=== PATIENT | female | born 1955 | race Caucasian/White ===

== ENCOUNTER 2018-01-29 08:31 | Emergency (ER) | payer OTHER, SELFPAY ==
[2018-01-29 08:32] VITALS: BP 183/83; PULSE 85; RESP 14; TEMP 36.4; O2SAT 98; BMI 45.1
--- NOTE | 2018-01-29 08:43 | CT_ITS ---
STUDY: CT CERVICAL SPINE WITHOUT CONTRAST REASON FOR EXAM: Female, 62 years old. Posterior neck pain. RADIATION DOSAGE (If Supplied By Facility): CTDIvol = ( 32.86 ) mGy, DLP = ( 744.76 ) mGycm TECHNIQUE: High resolution transaxial imaging was performed without contrast material. Sagittal and coronal images were reconstructed. Individualized dose optimization techniques were used for this CT. COMPARISON: None FINDINGS: Normal craniovertebral junction. Normal anterior atlantoaxial articulation. Normal odontoid process. There is straightening of the normal cervical lordosis. Normal vertebral bodies and posterior osseous elements. C2-3: Minimal anterior listhesis of C2 on C3. Facet joint osteoarthritis and hypertrophy. C3-4: Minimal anterior listhesis of C3 on C4. Facet joint osteoarthritis and hypertrophy. Uncovertebral arthrosis. C4-5: Marked degree of disc space narrowing with fusion. Anterior spondylosis. Uncovertebral arthrosis. Bilateral neural foraminal stenosis severe on the right side and moderate on the left side. C5-6: Marked degree of disc space narrowing. Spondylosis. Uncovertebral arthrosis. Moderate degree of bilateral neural foraminal stenosis. C6-7: Marked degree of disc space narrowing. Spondylosis. Facet joint osteoarthritis. C7-T1: Normal endplates. Normal disc height and morphology. Normal central canal and intervertebral neuroforamina. Calcification of the carotid bifurcations. CT/Spine Cervical without Contras IMPRESSION: Multilevel degenerative changes, as described above. Electronically Signed: Francisco Zavaleta MD at 10:08 EST Tel [phone], Service support ,
--- NOTE | 2018-01-29 08:53 | ED.DCSUM_ITS ---
- ER Visit Summary Date of Service: 01/29/18 Chief Complaint: Neck pain/bilateral upper arm weakness History of Present Illness: The patient is a 62 F who presents with the above symptoms. She states for the past 3 weeks she has had pain in her neck and had some weakness and numbness of her hands and arms. She saw a rehabilitation physician in [place]. He prescribed her prednisone and ordered outpatient x- rays. She states the x-rays read some arthritis at C3 and C4. She finished the prednisone yesterday and she states that the sensation is better in her arms but she still feels weak. She has fallen a couple of times without injury at home. She feels that everything is weak. Not feel malaise or fatigue. He is scheduled to follow-up with his rehabilitation session tomorrow for further evaluation. Physical Examination: Vital signs are reviewed. HEENT exam is unremarkable. Heart is regular rate and rhythm. Lungs are clear bilaterally. Abdomen soft and nontender. Cervical spine reveals left paraspinal tenderness to palpation. There are no step-offs. No bony tenderness. Her neurologic exam is normal. Her strength the upper extremities is equal and normal. Her sensation is also equal. Sensation and reflexes as well as strength in the bilateral lower e xtremities are equal. Test Results: CT scan reveals multilevel degenerative disc disease. There is severe foramina narrowing at the C4-C5 and C6 area Emergency Department Course and Treatment: The patient will be given a shot of Kenalog here. Her issue is likely degenerative disc disease and foraminal narrowing. She has a follow-up appointment with the rehab physician tomorrow. She will keep this appointment. Treatment Plan: [] Disposition: Discharge Impression: Cervical radiculopathy, cervical degenerative disc disease This note was generated with [employer] dictation software. It may contain incorrect words, spelling, and punctuation that were not noted in review of the chart prior to signing ED Disposition - Plan for ED Patient: Chief Complaint: Other, Pain/Inj Referrals: [facility] Doctor,Out of [Primary Care Provider] -
--- NOTE | 2018-01-29 10:16 | ED.DEP ---
ED Disposition - Plan for ED Patient: Disposition: Home or Assisted Living Chief Complaint: Other, Pain/Inj Instructions: ED Cervical Radiculopathy Referrals: [facility] Doctor,Out of [Primary Care Provider] -
[2018-01-29] MEDS: Triamcinolone Acetonide 40 MG/ML Vial IM (10:26)
[2018-01-29 10:27] VITALS: BP 129/84; PULSE 78; RESP 15; O2SAT 98
--- OUTSIDE RECORDS SUMMARY | 2018-05-02 20:49 | XMS RPT_ITS ---
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 SIGNATURE: Ivana Ward RN PATIENT NAME: Sonia Karimi DATE: February 07, 2018 TIME: 1:52 PM PAGER/CONTACT #: [phone] THERAPY NT Observed: 02/07/2018 Status: COMPLETED Source: [place] 10:28 AM CLINIC OTHER CAMPUS REPOSITORY O ID: [id number] Author: Ainsley Shah Service: Physical Therapy Author Type: Internal Audit Manager Type: Therapy (PT/OT/Speech/Resp) Filed: 02/07/2018 10:36 AM Note Text: Attestation signed by Carlos (Pt) Octavia at 02/07/2018 11:35 AM I reviewed and agree with the documentation corresponding to this therapy visit. SIGNATURE: Carlos Dudley, PT DATE: February 07, 2018 TIME: 11:35 AM Physical Therapy Treatment SERVICE DATE: 02/07/2018 SERVICE TIME: 35 to 4186 ROOM: [place] [address] Recommended Discharge Disposition: Acute Rehab Recommended Discharge Disposition Comments: pt with limited functional mobility - BUE/BLE weakness making mobility difficult; will benefit from AR prior to d/c home. Justification For Post Acute Needs: Anticipate that patient will require daily (5x/wk) skilled therapy in a post-acute facility setting at the time of acute hospital discharge;Anticipate patient will tolerate 3 hours of daily therapy at the time of admission to post-acute setting Recommended Discharge Equipment: No equipment needs anticipated PT Recommendations to Nursing: Ambulate with device;Transfer to/from chair;OOB for Meals;With assist of 2 people Device: Wheeled Walker PT 6 Clicks Score: 17 Precautions/Activity Restrictions: Fall Risk;Spine Precaution/Activity Restriction Comments: soft collar when in a car ASSESSMENT :Patient Disposition at Start of Session: Supine in Bed;Call Daniel in Reach;SCDs Patient Disposition at End of Session: (sitting eob post session) Tolerance Limited By Pain Physical Therapy Problem List: Balance Impaired;Functional Mobility Impairment;Decreased Strength;Decreased Range Of Motion;Decreased Activity Tolerance;Impaired Self Care;Safety Deficits;Pain Patient /Caregiver Goals: Go Home Goals for Plan of Care: Able to perform HEP with: Verbal Cues Only Transfer supine to/from sit with: Modified Independent Transfer sit to/from stand with: Modified Independent Ambulate with: Modified Independent Distance: >100ft x 2 Device: Wheeled Walker Ambulate up and down steps with: Contact Guard Assistance Number of steps: 3 Device: Rail Transfer: All functional transfers with mod I Progress Toward Goals: Progressing as expected Rehab Potential: Good PLAN: Treatment Frequency (times per week): 7 Treatment Duration (number): (as able LOS) Current admission Treatment Interventions: Education;Functional Mobility Training;Self Care / Home Management Plan of Care developed with: Patient TREATMENT INTERVENTIONS: Therapy Diagnosis: Reduced mobility-other Interventions Provided: Therapeutic Activity (45671) Therapeutic Activity (85158) Treatment Minutes: 40 3 units Skilled Intervention(s): Education with sitting balance, transfers, therex Sitting eob beginning of session. Seated pt performed B ue and le therex along with postural therex. Pt practiced sit to stand with min assist x 2 from elevated bed. Using ww abl to performed left mip. Not able to performed right mip secondary to left knee hurting so much with weigthbearing. Pt practiced sit to stand x 2. Each static stand about 2 minute with min assist. Seated eob post session. Set up for Breakfast, Call daniel in reach Total Timed Code Treatment Minutes: 40 Total Treatment Time (minutes): 40 SUBJECTIVE: Current Hospital Course: Chart reviewed and no significant medical updates relevant to therapy were noted Reason for Physical Therapy Consult : Sx 02/02/18 Ant Disectomy decompression Relevant Past Medical History: cervical myopathy; frequent falls Patient Report: pt alert, cooperative, pleasant 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; drives OBJECTIVE: CURRENT FUNCTIONAL STATUS: Current Functional Mobility Assist Level Additional Information Rolling Contact Guard Assistance Supine to Sit Minimal Assistance Sit to Supine (pt remained in chair post session) Scooting Supervision Sit to Stand Minimal Assistance Stand to Sit Minimal Assistance Bed to Chair Toilet/Commode Gait Stairs Curb Step Car Transfer General Gait Deviations: Kamar decreased Balance: Static Sitting;Dynamic Sitting;Static Standing;Dynamic Standing Static Sitting Balance: Independent Dynamic Sitting Balance: Supervision Static Standing Balance: Contact Guard Assistance Dynamic Standing Balance: Minimal Assistance Activity Tolerance: Standing Activity Standing Activity: stood at walker for balance, wt shifting Standing Activity Tolerance (in minutes): 0.75 JH-HLM: 6: Walk 10 steps or more Please see discipline specific clinical documentation flowsheet for complete details for this therapy evaluation/treatment. SIGNATURE: Ainsley Shah PT Assist PATIENT NAME: Sonia Karimi DATE: February 07, 2018 TIME: 10:29 AM THERAPY NT Observed: 02/07/2018 Status: COMPLETED Source: [place] 10:28 AM CLINIC OTHER CAMPUS REPOSITORY HNO ID: [id number] Author: Trista Leo (Cota) Service: Occupational Therapy Author Type: Rn Case Management Type: Therapy (PT/OT/Speech/Resp) Filed: 02/07/2018 10:33 AM Note Text: Attestation signed by Wayne Rivas at 02/07/2018 2:51 PM I reviewed and agree with the documentation corresponding to this therapy visit. SIGNATURE: Wayne Rivas, OTR/L DATE: February 07, 2018 TIME: 2:51 PM Occupational Therapy Treatment SERVICE DATE: 02/07/2018 SERVICE TIME: 5576 to 3119 ROOM: [place] [address] Recommended Discharge Disposition: Acute Rehab Recommended Discharge Disposition Comments: to maximize level of independence with ADL's, functional transfers and functional ambulation Justification For Post Acute Needs: Anticipate patient will tolerate 3 hours of daily therapy at the time of admission to post-acute setting;Anticipated community discharge;Good sitting tolerance;Living the community premorbidly;Motivated OT Recommendations to Nursing: ADL?s in chair;OOB for meals;Transfer to Chair;With assist of 2 people Equipment: Wheeled Walker OT 6 Clicks Score: 16 Precautions/Activity Restrictions: Fall Risk;Spine Precaution/Activity Restriction Comments: soft collar when in a car ASSESSMENT: Patient presents with cervical lami. Requires skilled OT for self care and functional mobility'. Patient Disposition at Start of Session: (sitting EOB) Patient Disposition at End of Session: (sitting EOB) Tolerated Full Session Occupational Therapy Problem List: Education Deficit;Pain;Safety Deficits;Impaired Self Care;Decreased Activity Tolerance;Decreased Range Of Motion;Decreased Strength;Functional Mobility Impairment;Balance Impaired;Sensory Deficit Patient /Caregiver Goals: Go To Rehab Goals for Plan of Care: Upper Body Dressing with: Set Up Lower Body Dressing with: Supervision Chair Transfer with: Supervision Toilet Transfer with: Supervision Tolerate (minutes of functional activity): 45 Functional Activity with: Supervision Progress Toward Goals: Progressing as expected Rehab Potential: Good PLAN: Treatment Frequency (times per week): 5 (as able) Current admission Treatment Interventions: Education;Self Care / Home Management;Functional Mobility Training;Balance Training Plan of Care developed with: Patient TREATMENT INTERVENTIONS: Therapy Diagnosis: Reduced mobility-other;Decreased activities of daily living (ADL) Interventions Provided: Therapeutic Activity (84048);Self Snf Management (76474) Therapeutic Activity (05421) Treatment Minutes: 15 1 unit Skilled Intervention(s): Instruction in sit to stand technique with proper hand placement and body positioning at edge of bed/chair Instruction in stand to sit technique with lower extremities touching chair/bed and reaching back for surface Instruction in sit to and from stand technique with proper hand placement and body positioning at edge of bed/chair Pt stood 3x from EOB with bed elevated, poor sit to stand technique, attempted pushing from bed pt required pulling from stabilized walker Self Snf Management (24232) Treatment Minutes: 25 2 units Skilled Intervention(s): Instructed in post-op instructions during ADLs recalls cervical lami precautons, required frequent cues for adherance during treatment Instructed in energy conservation v/c for activity pacing Provided cuing for hand/oral hygiene set up in sittng pt unable to complete self care tasks in standing at this time Cues for sequencing in hygiene tasks mod for toilet hygiene Provided instruction, cuing and facilitation for upper body dressing min Provided instruction, cuing and facilitation for lower body dressing min with compensatory technique for donning socks, mod stand to arrange poor functional mobility at this time Total Timed Code Treatment Minutes: 40 Total Treatment Time (minutes): 40 SUBJECTIVE: Current Hospital Course: Chart reviewed and no significant medical updates relevant to therapy were noted Reason for Occupational Therapy Consult: functional assessment Relevant Past Medical History: cervical myopathy; frequent falls Patient Report: see above 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; drives OBJECTIVE: Cognition/Communication Deficits Orientation Deficits: (WFL) Responsiveness: Alert;Awake Follows Commands: 3-step Commands;Cueing Needed Executive Function Deficits: Safety Awareness Safety Awareness Deficit: Minimal impairment CURRENT FUNCTIONAL STATUS: Current Activities of Daily Living Assist Level Feeding Set Up Grooming Contact Guard Assistance Bathing Upper Body Minimal Assistance Bathing Lower Body Moderate Assistance Dressing Upper Body Minimal Assistance Dressing Lower Body Moderate Assistance Toileting Moderate Assistance Instrumental Activities of Daily Living Assist Level Meal/Beverage Prep Light Cleaning Laundry Medication Management with Strategies Functional Mobility Assist Level Rolling (Pt up in chair and declined to return to bed at this time) Supine to Sit Supervision Sit to Supine Scooting Contact Guard Assistance Sit to Stand Minimal Assistance Stand to Sit Minimal Assistance Bed to Chair Toilet/Commode Minimal Assistance Functional Mobility Minimal Assistance Wheeled Walker Balance: Static Sitting;Dynamic Sitting;Static Standing;Dynamic Standing Static Sitting Balance: Independent Dynamic Sitting Balance: Supervision Static Standing Balance: Contact Guard Assistance Dynamic Standing Balance: Minimal Assistance Activity Tolerance: Standing Activity Standing Activity: amb to BR Standing Activity Tolerance (in minutes): 4 Please see discipline specific clinical documentation flowsheet for complete details for this therapy evaluation/treatment. SIGNATURE: SOCORRO Contreras PATIENT NAME: Sonia Karimi DATE: February 07, 2018 TIME: 10:28 AM CNDS Observed: 02/07/2018 Status: COMPLETED Source: [place] 9:33 AM CLINIC OTHER CAMPUS REPOSITORY HNO ID: [id number] Author: Artem Dow Service: General Internal Medicine Author Type: Physician Type: Discharge Summaries Filed: 02/07/2018 9:34 AM Note Text: DISCHARGE SUMMARY PATIENT NAME: Sonia Karimi ADMISSION DATE: 01/30/2018 DISCHARGE DATE: 02/07/2018 Attending Physician: Attending provider: Artem Dow MD ([phone]) Reason for Hospitalization: Active Problems: Cervical myopathy Cervical spondylosis with myelopathy Resolved Problems: * No resolved hospital problems. * Operations During Hospitalization: To list. Procedures During Hospitalization: To list. Labs and Procedures Pending at Discharge: No pending results. Unless otherwise specified. Consulting Teams During Hospitalization: Neurosurgery PT Patient Condition @ Discharge: Stable Discharge Disposition: Residential Facility Discharge Physical Exam: VITAL SIGNS: BP 108/50 Pulse 100 Temp 36.9 ?C (98.5 ?F) (Oral) Resp 16 Ht 167.6 cm (5' 6) Wt 125.9 kg (277 lb 9 oz) SpO2 97% BMI 44.80 kg/m? GENERAL: Alert, no acute distress, cooperative, obese SKIN: Skin color, texture, turgor normal. No rashes or lesions. NECK: Anterior surgical dressing noted. LUNGS: Lungs clear to auscultation CARDIAC: Normal S1 and S2; no rubs, murmurs, or gallops ABDOMEN: Abdomen soft, non-tender, BS normal x4 EXTREMITIES: No LE edema NEURO: AANDOx3, reports increased upper extremity strength. PULSES: 2+ radial, 2+ carotid Hospital Course: Cervical myopathy [G72.9] - s/p ACDF C3-4 HTN - c/w amlodipine, maxzide HLD: statin Thyroid mass - noted on MRI - thyroid US: benign nodules Hypokalemia - replete, monitor constipation - c/w colace IRIS - CPAP Obesity DVT prophylaxis - SCDs Neurosurgery signed off. Acute rehabilitation Discharge Information Provided to Patient: Discharge Medications: Current Discharge Medication List START taking these medications acetaminophen (TYLENOL) 650 mg Take 650 mg by mouth every 4 hours as needed. docusate sodium (COLACE) 100 mg Take 100 mg by mouth twice daily. polyethylene glycol 3350 (MIRALAX, GLYCOLAX) 17 g Take 17 g by mouth once daily as needed. CONTINUE these medications which have NOT CHANGED amLODIPine (NORVASC) 5 mg Take 5 mg by mouth once daily. Qty: 90 tablet Refills: 3 Associated Diagnoses:Essential hypertension atorvastatin (LIPITOR) 10 mg Take 10 mg by mouth once daily. Qty: 90 tablet Refills: 3 Associated Diagnoses:Hyperlipidemia, unspecified hyperlipidemia type cholecalciferol (VITAMIN D3) 2,000 Units Take 2,000 Units by mouth once daily. cloNIDine HCl (CATAPRES) 0.1 mg Take 0.1 mg by mouth daily at bedtime. Qty: 90 tablet Refills: 3 Associated Diagnoses:Essential hypertension COMPOUNDED PRESCRIPTION BIPAP 1 liter bleed in 12/5 cm. RR 14 Replacement machine with heated humidity. CPAP mask and supplies. Use nightly. Qty: 1 Each Refills: 0 Associated Diagnoses:Sleep apnea, unspecified sleep apnea type gabapentin (NEURONTIN) 100 mg capsule TAKE 2 CAPSULES BY MOUTH TWICE A DAY Qty: 120 capsule Refills: 3 Comments: Maximum Refills Reached Associated Diagnoses:Sprain of deltoid ligament of left ankle, sequela; Saphenous neuritis, left [id number]-[id number] D3 ORAL 3 tablets Take 3 tablets by mouth once daily. HYDROcodone-acetaminophen (NORCO) 1 tablet Take 1 tablet by mouth at bedtime as needed. Earliest Fill Date: 01/16/18 Qty: 30 tablet Refills: 0 Associated Diagnoses:Cervical disc disorder with radiculopathy; Primary osteoarthritis of both knees; Sprain of left shoulder, unspecified shoulder sprain type, sequela MULTIVIT WITH IRON-MINERALS (MULTIVITAMIN AND MINERALS ORAL) 1 tablet Take 1 tablet by mouth once daily. predniSONE (DELTASONE) 10 mg tablet Please take 3 pills twice daily for 3 days, then 2 pills twice daily for 3 days, then 1 pill twice daily for 3 days, then 1 pill daily till gone. Qty: 40 tablet Refills: 0 Associated Diagnoses:Cervical disc disorder with radiculopathy; Cervical spondylosis with myelopathy; Primary osteoarthritis of both knees sertraline (ZOLOFT) 100 mg Take 100 mg by mouth once daily. Qty: 90 tablet Refills: 3 Associated Diagnoses:Depression, unspecified depression type STOP taking these medications diclofenac XR (VOLTAREN-XR) 100 mg Tb24 Comments: Reason for Stopping: triamterene-hydrochlorothiazide 1 capsule Comments: Reason for Stopping: Future Appointments: Follow Up with PCP: Gisela Gar DO Needs follow up for her Thyroid Nodules TIME OF CARE: Discharge Management: I personally spent less than 30 minutes involved in the discharge management of this patient. SIGNATURE: Artem Dow MD DATE: February 07, 2018 TIME: 9:33 AM NURSING PROG Observed: 02/06/2018 Status: COMPLETED Source: [place] 7:00 PM CLINIC OTHER CAMPUS REPOSITORY O ID: [id number] Author: Carli RubioRn) MELODY Jones Service: (none) Author Type: Registered Nurse Type: Nursing Progress Note Filed: 02/07/2018 5:27 AM Note Text: Nursing Progress Note Patient Name: Sonia Karimi Patient Location: [facility]-2 1922 Assumed care of patient--bedside report received. Family at bedside. Patient awake in bed eating dinner. Alert and oriented x 3. Respirations eupneic. Speech clear and appropriate. States pain is ok and declined need for pain medication at this time. Pain board reviewed and discussed. Appears comfortable. No s/s of distress. Safety interventions discussed, patient understands to use call light for assistance. Denies any other needs. Bed alarm on. Call light within reach. All safety precautions maintained. This note was completed by: Carli Jones RN PROGRESS Observed: 02/06/2018 Status: COMPLETED Source: [place] 2:09 PM [facility]INIC OTHER CAMPUS REPOSITORY HNO ID: [id number] Author: Artem Dow Service: General Internal Medicine Author Type: Physician Type: Progress Notes Filed: 02/06/2018 2:10 PM Note Text: PROGRESS NOTE - INTERNAL MEDICINE PATIENT NAME: Sonia Karimi ADMITTING PHYSICIAN: Artem Dow SUBJECTIVE INTERVAL HISTORY OF PRESENT ILLNESS: Comfortable. Upper extremity strength slightly improved. No other acute issues. OBJECTIVE PHYSICAL EXAM: BP 134/67 Pulse 75 Temp 36.9 ?C (98.4 ?F) (Oral) Resp 16 Ht 167.6 cm (5' 6) Wt 125.9 kg (277 lb 9 oz) SpO2 95% BMI 44.80 kg/m? Intake/Output Summary (Last 24 hours) at 02/06/18 1409 Last data filed at 02/06/18 1000 Gross per 24 hour Intake 820 ml Output 1725 ml Net -905 ml GENERAL: Alert, no acute distress, cooperative, obese SKIN: Skin color, texture, turgor normal. No rashes or lesions. NECK: Anterior surgical dressing noted. LUNGS: Lungs clear to auscultation CARDIAC: Normal S1 and S2; no rubs, murmurs, or gallops ABDOMEN: Abdomen soft, non-tender, BS normal x4 EXTREMITIES: No LE edema NEURO: AANDOx3, reports increased upper extremity strength. PULSES: 2+ radial, 2+ carotid DATA: Diagnostic tests reviewed for today's visit: Most recent labs Most recent imaging CBC, Coags, BMP, Mg, Phos Liver Function, Amylase, AND Lipase Cardiac Enzymes ASSESSMENT AND PLAN Cervical myopathy [G72.9] - s/p ACDF C3-4 HTN - c/w amlodipine, maxzide HLD: statin Thyroid mass - noted on MRI - thyroid US: benign nodules Hypokalemia - replete, monitor constipation - c/w colace IRIS - CPAP Obesity DVT prophylaxis - SCDs ? Neurosurgery signed off. Acute rehabilitation Discharge pending. Artem Dow MD NURSING PROG Observed: 02/06/2018 Status: COMPLETED Source: [place] 7:17 AM [facility] OTHER CAMPUS REPOSITORY HNO ID: [id number] Author: Karis RubioRn) MELODY Smith Service: (none) Author Type: Registered Nurse Type: Nursing Progress Note Filed: 02/06/2018 6:37 PM Note Text: Nursing Progress Note Patient Name: Sonia Karimi Patient Location: /-2 0715 Assumed care of patient, bedside report received. She is sleeping. CPAP noted at bedside, Bed alarm is on. Denies any needs, call light in reach and bed alarm is on. Neck dressing is dry and intact. No drainage noted. Reports numbness in hand and arms, not new., States numbness that was in her legs before the surgery is gone. Toes are warm and mobile with brisk cap refill. Call light in reach 0830 One person assist to BSC 1200 Resting in bed, denies any needs. Family at bedside. 1455 Resting in bed, denies any needs, family has gone home. Assessment is as charted . This note was completed by: Karis SMITH RN NURSING PROG Observed: 02/05/2018 Status: COMPLETED Source: [place] 7:38 PM [facility] OTHER CAMPUS REPOSITORY HNO ID: [id number] Author: Mellisa (Rn) MELODY Banks Service: (none) Author Type: Registered Nurse Type: Nursing Progress Note Filed: 02/06/2018 3:55 AM Note Text: Nursing Progress Note Patient Name: Sonia Karimi Patient Location: /[facility]2 Daily Note: 1900 Assumed care of pt. Pt is AANDOx3, breathing regular on RA. Pt denies any needs at this time. Call light within reach, bed alarm on, safety maintained. 2118 Assessment as charted. Pt denies chest pain, SOB, n/v, or [place]. Pt states n/t to bilateral hands and arms, and pain to the neck and L knee. IS at bedside. Pt demonstrated use, reminded to use every hour while awake. SCDs on bilaterally, neck dressing c/d/i with steri strips, ice applied to L knee d/t pain, bipap machine at bedside for pt use. No IV access upon assessment, informed by daytime RN that doctors are aware and no IV access is ok. Reviewed pain board with pt. Pt has no complaints at this time. Call light within reach, bed alarm on, safety maintained. 0000 Prior assessment unchanged, VS noted, will continue to monitor. This note was completed by: Mellisa Banks RN CASE MANAGEM Observed: 02/05/2018 Status: COMPLETED Source: [place] 3:19 PM [facility] REPOSITORY HNO ID: [id number] Author: Ivana RubioRn) MELODY Ward Service: Care Management Author Type: Registered Nurse Type: Care Mgt Progress Note Filed: 02/05/2018 3:21 PM Note Text: CARE MANAGEMENT PROGRESS NOTE SERVICE DATE: 02/05/2018 SERVICE TIME: 3:19 PM LOS: 6 days Discharge orders faxed to Sonia at [facility]. Left VM asking that she call this field underwriter back if she gets insurance approval. Await call and patient informed. Will follow. SIGNATURE: Ivana Ward RN PATIENT NAME: Sonia Karimi DATE: February 05, 2018 TIME: 3:19 PM PAGER/CONTACT #: [phone] PROGRESS Observed: 02/05/2018 Status: COMPLETED Source: [place] 2:35 PM [facility] OTHER CAMPUS REPOSITORY HNO ID: [id number] Author: Artem Dow Service: General Internal Medicine Author Type: Physician Type: Progress Notes Filed: 02/05/2018 2:35 PM Note Text: PROGRESS NOTE - INTERNAL MEDICINE PATIENT NAME: Sonia Karimi ADMITTING PHYSICIAN: Artem Dow SUBJECTIVE INTERVAL HISTORY OF PRESENT ILLNESS: Comfortable. Upper extremity strength slightly improved. No other acute issues. OBJECTIVE PHYSICAL EXAM: BP 147/55 Pulse 65 Temp 36.8 ?C (98.3 ?F) (Oral) Resp 16 Ht 167.6 cm (5' 6) Wt 125.9 kg (277 lb 9 oz) SpO2 96% BMI 44.80 kg/m? Intake/Output Summary (Last 24 hours) at 02/05/18 1435 Last data filed at 02/05/18 1400 Gross per 24 hour Intake 1290 ml Output 400 ml Net 890 ml GENERAL: Alert, no acute distress, cooperative, obese SKIN: Skin color, texture, turgor normal. No rashes or lesions. NECK: Anterior surgical dressing noted. LUNGS: Lungs clear to auscultation CARDIAC: Normal S1 and S2; no rubs, murmurs, or gallops ABDOMEN: Abdomen soft, non-tender, BS normal x4 EXTREMITIES: No LE edema NEURO: AANDOx3, reports increased upper extremity strength. PULSES: 2+ radial, 2+ carotid DATA: Diagnostic tests reviewed for today's visit: Most recent labs Most recent imaging CBC, Coags, BMP, Mg, Phos Recent Labs 02/03/18 0535 WBC 14.75* HB 11.5 HCT 37.1 PLT 241 NA 138 K 4.1 CHLOR 101 CO2 26 BUN 12 CREAT 0.69 GLUC 119* CA 9.1 Liver Function, Amylase, AND Lipase Cardiac Enzymes ASSESSMENT AND PLAN Cervical myopathy [G72.9] - s/p ACDF C3-4 HTN - c/w amlodipine, maxzide HLD: statin Thyroid mass - noted on MRI - thyroid US: benign nodules Hypokalemia - replete, monitor constipation - c/w colace IRIS - CPAP Obesity DVT prophylaxis - SCDs ? Neurosurgery Has signed off. Acute rehabilitation Discharge pending. Mild leukocytosis noted, to follow Artem Dow MD THERAPY NT Observed: 02/05/2018 Status: COMPLETED Source: [facility] 12:53 PM CLINIC OTHER CAMPUS REPOSITORY HNO ID: [id number] Author: Hayley RubioOtRonda Long Service: Occupational Therapy Author Type: Occupational Therapist Type: Therapy (PT/OT/Speech/Resp) Filed: 02/05/2018 12:56 PM Note Text: Occupational Therapy Evaluation SERVICE DATE: 02/05/2018 SERVICE TIME: 1220 to 1245 ROOM: [place] [id number] Recommended Discharge Disposition: Acute Rehab Recommended Discharge Disposition Comments: to maximize level of independence with ADL's, functional transfers and functional ambulation Justification For Post Acute Needs: Anticipate patient will tolerate 3 hours of daily therapy at the time of admission to post-acute setting;Anticipated community discharge;Good sitting tolerance;Living the community premorbidly;Motivated OT Recommendations to Nursing: ADL?s in chair;OOB for meals;Transfer to Chair;With assist of 2 people Equipment: Wheeled Walker OT 6 Clicks Score: 17 Precautions/Activity Restrictions: Fall Risk;Spine Precaution/Activity Restriction Comments: soft collar when in a car ASSESSMENT: REEVAL SECONDARY TO CERVICAL SURGERY Patient presents with cervical surgery. . Requires skilled OT for decreased BUE ROM, BUE strength, balance, activity tolerance, dressing, bathing, grooming, functional transfers,, functional balance and decreased safety awareness. Patient Disposition at Start of Session: OOB in Chair;Call Daniel in Reach Patient Disposition at End of Session: OOB in Chair;Call Daniel in Reach Tolerated Full Session Occupational Therapy Problem List: Education Deficit;Pain;Safety Deficits;Impaired Self Care;Decreased Activity Tolerance;Decreased Range Of Motion;Decreased Strength;Functional Mobility Impairment;Balance Impaired;Sensory Deficit Patient /Caregiver Goals: Go To Rehab Goals for Plan of Care: Upper Body Dressing with: Set Up Lower Body Dressing with: Supervision Chair Transfer with: Supervision Toilet Transfer with: Supervision Tolerate (minutes of functional activity): 45 Functional Activity with: Supervision Rehab Potential: Good PLAN: Treatment Frequency (times per week): 5 (as able) Current admission Treatment Interventions: Education;Self Care / Home Management;Functional Mobility Training;Balance Training Plan of Care developed with: Patient TREATMENT INTERVENTIONS: Therapy Diagnosis: Reduced mobility-other;Decreased activities of daily living (ADL) Interventions Provided: Re-evaluation;Self Snf Management (42901) Self Snf Management (80812) Treatment Minutes: 13 1 unit Skilled Intervention(s): Instructed in energy conservation techniques to utilize during ADL's, functional transfers and functional ambulation. Provided instruction, cuing and facilitation for upper body dressing. Educated pt to dress LUE first secondary to decreased ROM and strength. Provided instruction, cuing and facilitation for lower body dressing. Pt educated on adhering to proper body mechanics while completing LE ADL's and the availability of adaptive equipment to assist in completion of LE ADL's. Educated pt to dress LLE first. Educated pt on the pain scale, the importance of managing pain and non pharmacological interventions. Educated and demonstrated to pt anti-embolic exercises and the importance of completing these exercises on a regular basis. Educated pt on pursed lipped breathing technique throughout functional activity to assist with managing pain. Educated pt on role of therapy in the acute care environment, the importance of being OOB for all meals as tolerated with staff assist and the POC. Educated and demonstrated desensitization techniques for BUE's. Total Timed Code Treatment Minutes: 13 Total Treatment Time (minutes): 25 FUNCTIONAL G CODE: OT 6 Clicks Score: 17 (02/05/18 1220) Self Care Current Status (G8987): CK (02/05/18 1220) Self Care Goal Status (G8988): CJ (02/05/18 1220) Based on clinical assessment and the score on the 6 Clicks Functional Assessment Tool, the G code and corresponding severity modifiers are documented above. SUBJECTIVE: Current Hospital Course: Chart reviewed; DATE OF SURGERY/PROCEDURE: 02/02/2018 SURGERY/PROCEDURE: Anterior cervical diskectomy at C3-4 level, anterior cervical partial corpectomy at C3-4 level, anterior cervical interbody arthrodesis utilizing allogenous bone graft at C3-4, anterior cervical C3-4 instrumentation utilizing [place] spine instrumentation, application of Antonio-Wells tongs, utilization of intraoperative microscope, utilization of intraoperative somatosensory motor-evoked potential monitoring. Reviewed history - fall 3 weeks ago and hit face, then seen here 01/16. Xray with flexion extension views did show translation with flex/ext. CT scan 01/29 in ER showed no fracture, + stenosis 2) Concern for significant and relatively rapid neuro decline. Patient needs MRI and neurosurgery opinion within next 24-48 hours - lengthy discussion with patient and niece. Recommended [facility] or [facility]. 3) Spoke with Dr Kim Neurosurgery, recommend MRI cervical spine without. Discussed with Dr Dow for direct admission - trying to arrange - if unable patient will go to ER. 4) Followup PRN Reason for Occupational Therapy Consult: functional assessment Relevant Past Medical History: cervical myopathy; frequent falls Patient Report: agreeable to work with therapy this date. 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; drives OBJECTIVE: Cognition/Communication Deficits Orientation Deficits: (WFL) Responsiveness: Alert Follows Commands: 3-step Commands Executive Function Deficits: Safety Awareness Safety Awareness Deficit: Minimal impairment CURRENT FUNCTIONAL STATUS: Current Activities of Daily Living Assist Level Feeding Set Up Grooming Contact Guard Assistance Bathing Upper Body Minimal Assistance Bathing Lower Body Moderate Assistance Dressing Upper Body Contact Guard Assistance Dressing Lower Body Moderate Assistance (to stand and arrange) Toileting Contact Guard Assistance Functional Mobility Assist Level Rolling (Pt up in chair and declined to return to bed at this time) Supine to Sit Sit to Supine Scooting Supervision Sit to Stand Minimal Assistance Stand to Sit Minimal Assistance Bed to Chair Toilet/Commode Minimal Assistance Functional Mobility Minimal Assistance Wheeled Walker Balance: Static Sitting;Dynamic Sitting;Static Standing;Dynamic Standing Static Sitting Balance: Supervision Dynamic Sitting Balance: Supervision Static Standing Balance: Contact Guard Assistance Dynamic Standing Balance: Minimal Assistance Please see discipline specific clinical documentation flowsheet for complete details for this therapy evaluation/treatment. SIGNATURE: LILY Harper/Adam PATIENT NAME: Sonia Karimi DATE: February 05, 2018 TIME: 12:53 PM CONSULT Observed: 02/05/2018 Status: COMPLETED Source: [facility] 11:26 AM CLINIC OTHER CAMPUS REPOSITORY O ID: [id number] Author: Ramirez Valles Service: Physical Medicine AND Rehabilitation Author Type: Physician Type: Consults Filed: 02/05/2018 2:46 PM Note Text: PMR CONSULT- POST ACUTE ASSESSMENT SERVICE DATE: 02/05/2018 REQUIRED CERT DATA (POTENTIAL ACUTE INPATIENT REHABILITATION FACILITY- IRF PATIENTS ONLY) Deficits: nutrition, debility, pain limiting function, balance and righting reactions, adjustment to disability, minimal mobility level resulting in risk for venous thromboembolism, joint range restrictions and healing surgical sites Disability: mobility, locomotion and self care Rehabilitation Impairment Group: Spinal Cord Dysfunction: fall Hx Potential Barriers to Progress/ Discharge: n/a good plan to return home Estimated Length of Rehabilitation Stay: 14-18 days Expected Status at Discharge from Rehabilitation: ? Eating: Modified Independent ? Grooming: Modified Independent ? Bathing: Contact Guard ? Dressing: Minimal Assist ? Transfers: Contact Guard ? Ambulation: Modified Independent ? Distance: 50+ feet ? Assistive Device: Wheeled Walker ? 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 Differential diagnosis includes degenerative disc disease see added list below [facility] admitted on 01/30/2018. Hx fall history Developed myelopathic symptoms ocer 3-4 week hx numbness in all extremities UE>LEs, difficulty with fine motor tasks, Amb change, weakness UE Diag Cervical Myelopathy C3-4 grade 1 spondylolisthesis, C3-4 disk herniation, C3-4 spinal cord compression, progressive myelopathy. 02/02/18 S/P Anterior cervical diskectomy at C3-4 level, anterior cervical partial corpectomy at C3-4 level, anterior cervical interbody arthrodesis utilizing allogenous bone graft at C3-4, anterior cervical C3-4 instrumentation utilizing [place] spine instrumentation, application of Antonio-Wells tongs, utilization of intraoperative microscope, utilization of intraoperative somatosensory motor-evoked potential monitoring. ? 02/04/18 IM Cervical myopathy - s/p ACDF C3-4 HTN - c/w amlodipine, maxzide HLD: statin Thyroid mass - noted on MRI - thyroid US: benign nodules Hypokalemia - replete, monitor constipation - c/w colace IRIS - CPAP Obesity DVT prophylaxis - SCDs PMANDR REVIEW OF SYSTEMS: Prior to one month ago GENERAL- negative. SKIN- negative. VISION- negative. SWALLOWING- negative. HEARING- negative. CARDIAC- negative. PULMONARY- negative. GI- negative. - negative. MUSCULOSKELETAL- LBP NEUROLOGICAL- negative. CONSTITUTIONAL- obesity. ENDOCRINE- negative ALLERGIES Allergen Reactions - Ativan [Lorazepam] Hives - Neomycin Itching Hives, itching - Neosporin [Benzalko* Rash Current Facility-Administered Medications: acetaminophen 650 mg tab(s) (TYLENOL) 650 mg ORAL q 4 H PRN amLODIPine 2.5 mg tab(s) (NORVASC) 2.5 mg ORAL DAILY atorvastatin 10 mg tab(s) (LIPITOR) 10 mg ORAL DAILY cloNIDine HCl 0.1 mg tab(s) (CATAPRES) 0.1 mg ORAL AT BEDTIME diazePAM 5 mg tab(s) (VALIUM) 5 mg ORAL q 6 H PRN docusate sodium 100 mg cap(s) (COLACE) 100 mg ORAL BID ferrous sulfate 325 mg tab(s) 325 mg ORAL BID w MEALS gabapentin 200 mg cap(s) (NEURONTIN) 200 mg ORAL BID HYDROcodone 5 mg - acetaminophen 325 mg tablet (NORCO) 1 tablet ORAL HS PRN lidocaine - VERIFY PATCH OTHER q 8 H lidocaine 5 % 1 Patch (LIDODERM) 1 Patch TRANSDERMAL DAILY lidocaine patch - REMOVE OTHER AT BEDTIME morphine 2 mg injection 2 mg INTRAVENOUS q 2 H PRN NaCl 0.9% iv infusion 75 mL/hr INTRAVENOUS CONTINUOUS ondansetron 4 mg tab(s) (ZOFRAN) 4 mg ORAL q 6 H PRN Or ondansetron (PF) 4 mg injection (ZOFRAN) 4 mg INTRAVENOUS q 6 H PRN oxyCODONE-acetaminophen 5-325 mg 1-2 tablet (PERCOCET) 1-2 tablet ORAL q 6 H PRN polyethylene glycol 3350 17 g packet (MIRALAX, GLYCOLAX) 17 g ORAL DAILY PRN sertraline 100 mg tab(s) (ZOLOFT) 100 mg ORAL DAILY (8 PM) PAST MEDICAL HISTORY Diagnosis Date - Cervical polyp - COPD (chronic obstructive pulmonary disease) (HCC) - Hyperlipidemia - Hypertension - Minor depression PAST SURGICAL HISTORY Procedure Laterality Date - REMOVAL ADENOIDS,PRIMARY,<12 Y/O Adenoidectomy - REMOVAL OF TONSILS,<12 Y/O Tonsillectomy Social History Marital status: Single Spouse name: Years of education: Number of children: Social History Main Topics Smoking status: Former Smoker Packs/day: 0.00 Years: 0.00 Smokeless tobacco: Never Used Comment: Quit smokig 38 years ago Alcohol use: No Drug use: No FAMILY HISTORY Problem Relation Age of Onset - Cancer Father leukemia - Cancer Mother skin cancer - Cancer Paternal Grandfather stomach cancer - Cancer Paternal Grandmother colon to liver - Cancer Sister cancer in situ - breast - Diabetes Father - Diabetes Sister - Heart Mother tachycardia Objective PHYSICAL EXAM: BP 147/55 Pulse 65 Temp 36.8 ?C (98.3 ?F) (Oral) Resp 16 Ht 167.6 cm (5' 6) Wt 125.9 kg (277 lb 9 oz) SpO2 96% BMI 44.80 kg/m? General: Patient seen- an obese adult in no distress.- Patient awake, alert and plerasant, Alert and Oriented x 3, -cooperative. Patient follows simple commands. Follows commands - 2 step. Speech is fluent. Basic auditory comprehensive and verbal expression intact. Patient knows recent history. HEENT- Inspection of the head is normocephalic. Face symmetric. Pupils round equal. EOMI, no conjunctival injection visual armijo intact. Tongue resting midline. Mucous membranes were moist. THORAX- Heart Regular rate and rhythym Lungs decreased breath sounds bilateral bases ABDOMEN- soft non-tender EXTREMITY EXAMINATION- Distal edema assessment UE No edema LE No edema PULSES B/L LE DP /PT 1/4 DISTAL SENSATION- LE lidn8sor DISTAL JT POSITION SENSE LE present REFLEXES B/L Biceps 3+, Triceps 3+ B/L Brachioradialis 3+ B/L Finger Flex 3+, Triceps 3+ Hoffmans- Brisk B/L RLE Patella 3+, Achilles 3+ LLE Patella 2+, Achilles 2+ [place] +/- B/L Clonus R ankle MOTOR STRENGTH UPPER EXTREMITY GENERAL RUE 4/5 LUE 4/5 LOWER EXTREMITY GENERAL RLE 4/5 LLE 4/5 ACTIVE SLR Movement against gravity R Yes. L Yes] Ataxia / coordination impairment UE/LE Mild LABORATORY TESTING: CBC: Recent Labs 02/03/18 0535 02/02/18 0421 02/01/1861601/30/181942 WBC 14.75* 10.52 10.21 14.93* HB 11.5 11.3* 11.6 12.2 HCT 37.1 35.7* 36.7 37.1 PLT 241 235 223 259 MCV 84.7 83.4 83.6 82.1 RDWCV 13.6 13.8 13.7 13.9 NEUTP 85.0 64.7 73.1 78.4 ABSNEUT 12.53* 6.81 7.46 11.70* LYMPHP 6.6 25.0 17.1 13.0 MONOP 8.2 7.2 6.6 6.4 EODINP 0.1 2.7 2.9 1.9 COAG: Recent Labs 02/02/18 0421 01/31/18 1907 APTT -- 25.4 INR 0.9 -- BMP: Recent Labs 02/03/1835 02/02/181 02/01/1861601/30/181942 GLUC 119* 101* 113* 164* NA 138 139 138 141 K 4.1 3.9 4.2 3.5* CHLOR 101 102 99 101 CO2 26 25 27 25 ANION 11 12 12 15 BUN 12 18 20 26* CREAT 0.69 0.75 0.81 0.92 CHEM: Recent Labs 02/03/18 0535 02/02/18 0421 02/01/1861601/30/181942 CA 9.1 9.6 9.9 9.6 HEPATIC: No results for input(s): ALKPHOS, ALT, AST, TBILI, LIPASE in the last 168 hours. URINALYSIS: Recent Labs 01/31/182050 SPGR 1.010 UGLUC Negative UBILI Negative UKET Negative UHB Negative UPROT Negative [facility] 11-20* LEUKEST Large* UA: Lab Results Component Value Date SPGR 1.010 01/31/2018 UGLUC Negative 01/31/2018 UBILI Negative 01/31/2018 UKET Negative 01/31/2018 UHB Negative 01/31/2018 UPROT Negative 01/31/2018 [facility] 11-20 01/31/2018 CREATININE CLEARANCE Estimated Creatinine Clearance: 111.7 mL/min (based on SCr of 0.69 mg/dL). Overall functional mobility- fair CURRENT FUNCTIONAL STATUS PHYSICAL THERAPY 6- CLICKS SCORE: PT 6 Clicks Score: 17 OCCUPATIONAL THERAPY 6- CLICKS SCORE : OT 6 Clicks Score: 14 02/05/18 PT Rolling Contact Guard Assistance ? Supine to Sit Minimal Assistance ? Sit to Supine (pt remained in chair post session) ? Scooting Supervision ? Sit to Stand Minimal Assistance ? Stand to Sit Minimal Assistance ? Bed to Chair Minimal Assistance Bed To Chair Transfer Type: Stand Pivot Bed To Chair Transfer Equipment: Wheeled Walker Toilet/Commode Minimal Assistance ? Gait Minimal Assistance Gait Device: Wheeled Walker Gait Distance (feet): 20'x2 Stairs Curb Step Car Transfer ? ? General Gait Deviations: Kamar decreased Pt tolerated well remained in the chair post session, nursing is aware, call light in reach . Reviewed precautionsBalance: Static Sitting;Dynamic Sitting;Static Standing;Dynamic Standing Static Sitting Balance: Independent Dynamic Sitting Balance: Supervision Static Standing Balance: Contact Guard Assistance Dynamic Standing Balance: Minimal Assistance 02/05/18 OT Feeding Set Up Grooming Contact Guard Assistance Bathing Upper Body Minimal Assistance Bathing Lower Body Moderate Assistance Dressing Upper Body Contact Guard Assistance Dressing Lower Body Moderate Assistance (to stand and arrange) Toileting Contact Guard Assistance ? ? Functional Mobility Assist Level ? Rolling (Pt up in chair and declined to return to bed at this time) ? Supine to Sit ? ? Sit to Supine ? Scooting Supervision ? Sit to Stand Minimal Assistance ? Stand to Sit Minimal Assistance ? Bed to Chair Toilet/Commode Minimal Assistance ? Functional Mobility Minimal Assistance Wheeled Walker ? ? ? Balance: Static Sitting;Dynamic Sitting;Static Standing;Dynamic Standing Static Sitting Balance: Supervision Dynamic Sitting Balance: Supervision Static Standing Balance: Contact Guard Assistance Dynamic Standing Balance: Minimal Assistance Impression/Recommendations PRIMARY DIAGNOSIS: Progressive Cervical Myelopathy over 3-4 weeks requiring surgical tx 02/02/18 ACDF C3-4 -Hyperreflexia -Clonus -Ataxia -Coordination Impairment Morbid Obesity BMI 44.8 PROBLEM LIST Progressive Cervical Myelopathy 02/02/18 ACDF C3-4 -Hyperreflexia -Clonus -Ataxia -Coordination Impairment Obesity, Class Iii, Bmi 40-49.9 Sleep Apnea Essential Hypertension Hyperlipidemia Osteoarthritis of Both Knees RECOMMENDATIONS: Acute Rehab 1- When medically cleared I recommend an Acute Inpatient Rehabilitation Facility (IRF). This patient requires and necessitates an IRF level of treatment / care including management by a Medical / Rehabilitation physician 5+ days /week, Rehabilitation nursing, multiple skilled therapies, Speech - screen. The patient will be able to participate in and benefit from 3 hr of therapy per day with goals for improved functional and medical status and a DC to the community. This patient is appropriate and necessitates a comprehensive acute inpatient rehabilitation faciility (IRF). Prognosis for improvement is positive. The patient is appropriate for IRF based on medical and physical / functional status, needs, prognosis, ability to participate and benefit from the IRF program including discharge goals to the community and family caregiver training as needed. IRF program recommended includes Physiatry / Rehabilitation Physician, Case Management, Discharge Planning , Psychosocial, Psychology services , 24 hr Rehabilitation Nursing, Recreational Therapy Services, Medical Management and Supervision, Discharge environmental assessment as needed. This patient is appropriate for Physical and Occupational therapy 1.5 hours each per day based on a 15- hour week, 5 days per week. Physician management 5-7 days per week including Physiatry / Rehabilitation Physician and Speciality Physician care as needed. Physician monitoring,management and close supervision of medical issues noted in primary diagnosis and problem list in this report. Psychological services as needed.. Disposition goal from IRF would be return home with support of family. 2- Medical Plan: Cervical spondylosis with myelopathy BMI>44 Elevated AM Blood glucose 3- DVT prophylaxis per Primary team 4- PT/OT 5- Speech- swallowing screen as needed 6- OOB BID with supervision 7- B/B program 8- Nutrition program 9- Follow Blood Glucose post op and at rehab SIGNATURE: Ramirez Valles DO PATIENT NAME: Sonia Karimi DATE: February 05, 2018 TIME: 11:26 AM PAGER/CONTACT #: THERAPY NT Observed: 02/05/2018 Status: COMPLETED Source: [facility] 10:58 AM CLINIC OTHER CAMPUS REPOSITORY HNO ID: [id number] Author: Nita García Service: Physical Therapy Author Type: Internal Audit Manager Type: Therapy (PT/OT/Speech/Resp) Filed: 02/05/2018 11:04 AM Note Text: Attestation signed by Niyah Hairston at 02/05/2018 1:30 PM I reviewed and agree with the documentation corresponding to this therapy visit. SIGNATURE: Niyah Hairston, PT DATE: February 05, 2018 TIME: 1:30 PM Physical Therapy Treatment SERVICE DATE: 02/05/2018 SERVICE TIME: 0950 to 1030 ROOM: [facility] Recommended Discharge Disposition: Acute Rehab Recommended Discharge Disposition Comments: pt with limited functional mobility - BUE/BLE weakness making mobility difficult; will benefit from AR prior to d/c home. Justification For Post Acute Needs: Anticipate that patient will require daily (5x/wk) skilled therapy in a post-acute facility setting at the time of acute hospital discharge;Anticipate patient will tolerate 3 hours of daily therapy at the time of admission to post-acute setting Recommended Discharge Equipment: No equipment needs anticipated PT Recommendations to Nursing: Ambulate with device;Transfer to/from chair;OOB for Meals;With assist of 2 people Device: Wheeled Walker PT 6 Clicks Score: 17 Precautions/Activity Restrictions: Fall Risk;Spine (Cervical ) ASSESSMENT : Patient Disposition at End of Session: OOB in Chair;Call Daniel in Reach Tolerance Limited By Pain Physical Therapy Problem List: Balance Impaired;Functional Mobility Impairment;Decreased Strength;Decreased Range Of Motion;Decreased Activity Tolerance;Impaired Self Care;Safety Deficits;Pain Patient /Caregiver Goals: Go Home Goals for Plan of Care: Able to perform HEP with: Verbal Cues Only Transfer supine to/from sit with: Modified Independent Transfer sit to/from stand with: Modified Independent Ambulate with: Modified Independent Distance: >100ft x 2 Device: Wheeled Walker Ambulate up and down steps with: Contact Guard Assistance Number of steps: 3 Device: Rail Transfer: All functional transfers with mod I Progress Toward Goals: Progressing as expected Rehab Potential: Good PLAN: Treatment Frequency (times per week): 7 Treatment Duration (number): (as able LOS) Current admission Treatment Interventions: Education;Functional Mobility Training;Self Care / Home Management Plan of Care developed with: Patient TREATMENT INTERVENTIONS: Therapy Diagnosis: Reduced mobility-other Interventions Provided: Therapeutic Activity (15646);Gait Training (30033) Therapeutic Activity (28460) Treatment Minutes: 25 2 units Skilled Intervention(s): Instructed patient in log roll technique Instructed patient in supine to and from sit pushing with upper extremities to sit up Instruction in sit to and from stand technique with proper hand placement and body positioning at edge of bed/chair Gait Training (27644) Treatment Minutes: 15 1 unit Skilled Intervention(s): Instruction in sit to stand technique with proper hand placement and body positioning at edge of bed/chair and Instruction in stand to sit technique with LE's touching chair/bed and reaching back for surface patient is agreeable to therapy reviewed precautions Bed mob cues for log rolling Transfers sit to stand MIN x1 cue to push from the chair amb with RW very flexed posture and narrow DANAY Remained in chair post session assisted pt to the bathroom she was independent with her self care Total Timed Code Treatment Minutes: 40 Total Treatment Time (minutes): 40 SUBJECTIVE: Current Hospital Course: Chart reviewed and no significant medical updates relevant to therapy were noted Reason for Physical Therapy Consult : Sx 02/02/18 Ant Disectomy decompression Relevant Past Medical History: cervical myopathy; frequent falls Patient Report: Pt is agreeable to therapy. Pt is cleared for therapy per nursing . 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; drives OBJECTIVE: CURRENT FUNCTIONAL STATUS: Current Functional Mobility Assist Level Additional Information Rolling Contact Guard Assistance Supine to Sit Minimal Assistance Sit to Supine (pt remained in chair post session) Scooting Supervision Sit to Stand Minimal Assistance Stand to Sit Minimal Assistance Bed to Chair Minimal Assistance Bed To Chair Transfer Type: Stand Pivot Bed To Chair Transfer Equipment: Wheeled Walker Toilet/Commode Minimal Assistance Gait Minimal Assistance Gait Device: Wheeled Walker Gait Distance (feet): 20'x2 Stairs Curb Step Car Transfer General Gait Deviations: Kamar decreased Pt tolerated well remained in the chair post session, nursing is aware, call light in reach . Reviewed precautions Balance: Static Sitting;Dynamic Sitting;Static Standing;Dynamic Standing Static Sitting Balance: Independent Dynamic Sitting Balance: Supervision Static Standing Balance: Contact Guard Assistance Dynamic Standing Balance: Minimal Assistance Activity Tolerance: Standing Activity Standing Activity: stood at walker for balance, wt shifting Standing Activity Tolerance (in minutes): 0.75 JH-HLM: 6: Walk 10 steps or more Please see discipline specific clinical documentation flowsheet for complete details for this therapy evaluation/treatment. SIGNATURE: Nita García, PT Assist PATIENT NAME: Sonia Karimi DATE: February 05, 2018 TIME: 10:58 AM CASE MANAGEM Observed: 02/05/2018 Status: COMPLETED Source: [place] 10:53 AM [facility] OTHER CAMPUS REPOSITORY HNO ID: [id number] Author: Ivana Ward RN Service: Care Management Author Type: Registered Nurse Type: Care Mgt Progress Note Filed: 02/05/2018 10:55 AM Note Text: CARE MANAGEMENT PROGRESS NOTE SERVICE DATE: 02/05/2018 SERVICE TIME: 10:53 AM LOS: 6 days Needs Prior to Discharge: Insurance Authorization Spoke with Sonia at [facility] and they can accept patient today pending insurance approval. Updates faxed to [facility] and await response. Spoke with patient and she is agreeable with the plan. Patient states he family can transport her at discharge. Will follow. SIGNATURE: Ivana Ward RN PATIENT NAME: Sonia Karimi DATE: February 05, 2018 TIME: 10:53 AM PAGER/CONTACT #: [phone] NURSING PROG Observed: 02/05/2018 Status: COMPLETED Source: [place] 10:09 AM [facility] REPOSITORY HNO ID: [id number] Author: Trista Grant) Issac, RN Service: (none) Author Type: Registered Nurse Type: Nursing Progress Note Filed: 02/05/2018 6:00 PM Note Text: 0852 Nursing Progress Note Patient Name: Sonia Karimi Patient Location: [facility] Daily Note: 0852 Patient awake in bed, alert and oriented x 3. Anterior neck dressing dry and intact. Pt states she has some numbness and tingling to BUEs which has improved since surgery. Pt states the numbness and tingling to BLEs Has decreased greatly since surgery. No signs of distress. Will monitor. Call light in reach. 1516 Patient up in chair. No signs of distress. Anterior neck dressing changed per patient request. Tape from dressing itching patient's neck. Steri strips intact, applied 2x2's and paper tape. No drainage noted. Will continue to monitor. 1750 Patient up in chair. Medicated with percocet for pain to left knee. Ice pack to left knee. Exercise ball given to patient to work on her hand coordination and movement. This note was completed by: Trista Davenport, MELODY NURSING PROG Observed: 02/04/2018 Status: COMPLETED Source: [place] 8:53 PM [facility] REPOSITORY HNO ID: [id number] Author: Sherri Huntley, RN Service: (none) Author Type: Registered Nurse Type: Nursing Progress Note Filed: 02/05/2018 1:19 AM Note Text: Nursing Progress Note Patient Name: Sonia Karimi Patient Location: [facility] Daily Note: 1900 Assumed care of pt. Pt awake in bed with no complaints this time. AANDOX3. Breathing regular. SCDs on bilaterally. Call light within reach. Bed alarm is on. Safety maintained. 1999 Assessment is charted. Pt denies sob, chest pain, nausea/vomiting, headache. Anterior neck dressing clean, dry, and intact. N/T in BUE. C/o of pain, see MAR. Is/cdb encouraged. SCDs on bilaterally. Call light within reach. Bed alarm on. Safety maintained. 0000 Piror assessment unchanged This note was completed by: Sherri Huntley RN PROGRESS Observed: 02/04/2018 Status: COMPLETED Source: [place] 4:54 PM CLIN[facility] OTHER CAMPUS REPOSITORY HNO ID: [id number] Author: Artem Dow Service: General Internal Medicine Author Type: Physician Type: Progress Notes Filed: 02/04/2018 4:59 PM Note Text: PROGRESS NOTE - INTERNAL MEDICINE PATIENT NAME: Sonia Karimi ADMITTING PHYSICIAN: Artem Dow SUBJECTIVE INTERVAL HISTORY OF PRESENT ILLNESS: Sleeping comfortably today. Yesterday, had some Increase in neck pain overnight. OBJECTIVE PHYSICAL EXAM: BP 153/64 Pulse 99 Temp 37.3 ?C (99.2 ?F) (Oral) Resp 16 Ht 167.6 cm (5' 6) Wt 125.9 kg (277 lb 9 oz) SpO2 96% BMI 44.80 kg/m? Intake/Output Summary (Last 24 hours) at 02/04/18 1655 Last data filed at 02/04/18 1600 Gross per 24 hour Intake 1240 ml Output 1050 ml Net 190 ml GENERAL: Alert, no acute distress, cooperative, obese SKIN: Skin color, texture, turgor normal. No rashes or lesions. NECK: Anterior surgical dressing noted. LUNGS: Lungs clear to auscultation CARDIAC: Normal S1 and S2; no rubs, murmurs, or gallops ABDOMEN: Abdomen soft, non-tender, BS normal x4 EXTREMITIES: No LE edema NEURO: AANDOx3, reports increased upper extremity strength already. PULSES: 2+ radial, 2+ carotid DATA: Diagnostic tests reviewed for today's visit: Most recent labs Most recent imaging CBC, Coags, BMP, Mg, Phos Recent Labs 02/03/18 0535 02/02/18 0421 WBC 14.75* 10.52 HB 11.5 11.3* HCT 37.1 35.7* PLT 241 235 INR -- 0.9 NA 138 139 K 4.1 3.9 CHLOR 101 102 CO2 26 25 BUN 12 18 CREAT 0.69 0.75 GLUC 119* 101* CA 9.1 9.6 Liver Function, Amylase, AND Lipase Cardiac Enzymes ASSESSMENT AND PLAN Cervical myopathy [G72.9] - s/p ACDF C3-4 HTN - c/w amlodipine, maxzide HLD: statin Thyroid mass - noted on MRI - thyroid US: benign nodules Hypokalemia - replete, monitor constipation - c/w colace IRIS - CPAP Obesity DVT prophylaxis - SCDs ? Neurosurgery Has signed off. Acute rehabilitation Discharge pending. Mild leukocytosis noted, to follow Artem Dow MD THERAPY NT Observed: 02/04/2018 Status: COMPLETED Source: [place] 2:03 PM CLIN[facility] OTHER CAMPUS REPOSITORY HNO ID: [id number] Author: Alayna (Pt) Zenia Service: Physical Therapy Author Type: Physical Therapist Type: Therapy (PT/OT/Speech/Resp) Filed: 02/04/2018 2:08 PM Note Text: Physical Therapy Treatment SERVICE DATE: 02/04/2018 SERVICE TIME: 1320 to 1350 ROOM: [place] [address] Recommended Discharge Disposition: Acute Rehab Recommended Discharge Disposition Comments: pt with limited functional mobility - BUE/BLE weakness making mobility difficult; will benefit from AR prior to d/c home. Justification For Post Acute Needs: Anticipate that patient will require daily (5x/wk) skilled therapy in a post-acute facility setting at the time of acute hospital discharge;Anticipate patient will tolerate 3 hours of daily therapy at the time of admission to post-acute setting Recommended Discharge Equipment: No equipment needs anticipated PT Recommendations to Nursing: Ambulate with device;Transfer to/from chair;OOB for Meals;With assist of 2 people Device: Wheeled Walker PT 6 Clicks Score: 17 Precautions/Activity Restrictions: Fall Risk;Spine (Cervical ) ASSESSMENT : Pt with functional decline and weakness; will benefit from continued PT in inpt setting at d/c for strengthening, gait training and functional mobility training to maximize functional independence. Patient Disposition at Start of Session: Supine in Bed Patient Disposition at End of Session: OOB in Chair;Call Daniel in Reach Tolerance Limited By Pain Physical Therapy Problem List: Balance Impaired;Functional Mobility Impairment;Decreased Strength;Decreased Range Of Motion;Decreased Activity Tolerance;Impaired Self Care;Safety Deficits;Pain Patient /Caregiver Goals: Go Home Goals for Plan of Care: Able to perform HEP with: Verbal Cues Only Transfer supine to/from sit with: Modified Independent Transfer sit to/from stand with: Modified Independent Ambulate with: Modified Independent Distance: >100ft x 2 Device: Wheeled Walker Ambulate up and down steps with: Contact Guard Assistance Number of steps: 3 Device: Rail Transfer: All functional transfers with mod I Progress Toward Goals: Progressing as expected Rehab Potential: Good PLAN: Treatment Frequency (times per week): 7 Treatment Duration (number): (as able LOS) Current admission Treatment Interventions: Education;Functional Mobility Training;Self Care / Home Management Plan of Care developed with: Patient TREATMENT INTERVENTIONS: Therapy Diagnosis: Reduced mobility-other Interventions Provided: Therapeutic Activity (75503);Gait Training (93976) Therapeutic Activity (01248) Treatment Minutes: 15 1 unit Skilled Intervention(s): Pt instructed in role of PT and importance of mobility in hospital; pt instructed in safe techniques for bed mob - log roll technique, transfer and gait training for improved functional mobility - proper use of walker and hand placement with all mobility; d/c planning discussion - pt wants to go to rehab; POC discussion; home safety, BLE/BUE therapeutic ex instruction, fall prevention strategies, energy conservation; deep breathing techniques. Pt instructed in spinal precs. Gait Training (11270) Treatment Minutes: 15 1 unit Skilled Intervention(s): Instruction in sit to stand technique with proper hand placement and body positioning at edge of bed/chair; Instruction in stand to sit technique with LE's touching chair/bed and reaching back for surface; Instruction in sequencing and gait pattern; Instruction in correction of gait deviations - postural correction, step length; Instruction in use of rolling walker for balance and safety. Pt needs cues for safety. Difficulty holding onto walker d/t hand weakness - tends to lean on walker. Pt is fearful of falling. Pt has severe B genu varus. Total Timed Code Treatment Minutes: 30 Total Treatment Time (minutes): 30 FUNCTIONAL G CODE: PT 6 Clicks Score: 17 (02/04/18 1320) Mobility: Walking and Moving Around Current Status (G8978): CK (02/03/18 1550) Mobility: Walking and Moving Around Goal Status (G8979): CJ (02/03/18 1550) Based on clinical assessment and the score on the 6 Clicks Functional Assessment Tool, the G code and corresponding severity modifiers are documented above. SUBJECTIVE: Current Hospital Course: Chart reviewed and no significant medical updates relevant to therapy were noted Reason for Physical Therapy Consult : Sx 02/02/18 Ant Disectomy decompression Relevant Past Medical History: cervical myopathy; frequent falls Patient Report: Pt states I'm in so much pain. I can't get comfortable. Pt laying in bed - head/neck positioned in extension. Assisted pt to chair with pillow and cervical roll support. 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; drives OBJECTIVE: CURRENT FUNCTIONAL STATUS: Current Functional Mobility Assist Level Additional Information Rolling Contact Guard Assistance Supine to Sit Minimal Assistance (HOB elevated) Sit to Supine (pt up in chair post session ) Scooting Supervision Sit to Stand Minimal Assistance Stand to Sit Minimal Assistance Bed to Chair Minimal Assistance Bed To Chair Transfer Type: Stand Pivot Bed To Chair Transfer Equipment: Wheeled Walker Toilet/Commode (-) Gait Minimal Assistance Gait Device: Wheeled Walker Gait Distance (feet): 12ft x 1; 20ft x 1 Stairs Curb Step Car Transfer General Gait Deviations: Kamar decreased;Step length decreased (leans BUE on walker; difficulty gripping walker; genu varus ) Balance: Static Sitting;Dynamic Sitting;Static Standing;Dynamic Standing Static Sitting Balance: Independent Dynamic Sitting Balance: Supervision Static Standing Balance: Contact Guard Assistance Dynamic Standing Balance: Minimal Assistance Activity Tolerance: Standing Activity Standing Activity: stood at walker for balance, wt shifting Standing Activity Tolerance (in minutes): 0.75 JH-HLM: 6: Walk 10 steps or more Please see discipline specific clinical documentation flowsheet for complete details for this therapy evaluation/treatment. SIGNATURE: Alayna Knutson PT PATIENT NAME: Sonia Karimi DATE: February 04, 2018 TIME: 2:03 PM NURSING PROG Observed: 02/04/2018 Status: COMPLETED Source: [place] 8:43 AM [facility] REPOSITORY HNO ID: [id number] Author: Nicole (Rn) MELODY Joel Service: Nursing Author Type: Registered Nurse Type: Nursing Progress Note Filed: 02/04/2018 1:14 PM Note Text: Nursing Progress Note Patient Name: Sonia Karimi Patient Location: [place] [address] [address] Daily Note: Assessment completed as charted, see documentation. Pt AOx3. Pt c/o neck pain, valium given, see eMAR. Pt denies any n/t. Neuros WNL. Pt denies any further needs at this time. Call daniel within reach. Will continue to monitor. This note was completed by: Nicole Joel RN PROGRESS Observed: 02/04/2018 Status: COMPLETED Source: [place] 8:39 AM [facility] REPOSITORY HNO ID: [id number] Author: Farshad Arce (Pa) Service: Neurosurgery Author Type: Physician Pharmacist Type: Progress Notes Filed: 02/04/2018 8:44 AM Note Text: S/P ACDF Neck pain overnight Motor: 5/5 BUE/BLEs Sensation: intact to LT in BUE/BLEs Dressing: C/D/I A/P: POD#2 C3/4 ACDF Rehab recommended. Neurosurgery to sign off. Follow up in 2 weeks, already scheduled. NURSING PROG Observed: 02/04/2018 Status: COMPLETED Source: [place] 2:05 AM [facility] REPOSITORY HNO ID: [id number] Author: Ann RubioRn) MELODY Dave Service: (none) Author Type: Registered Nurse Type: Nursing Progress Note Filed: 02/04/2018 2:06 AM Note Text: Nursing Progress Note Patient Name: Sonia Karimi Patient Location: [place] [address] [address] Daily Note:0000 assumed pt. Care, pt. Resting, call light in reach, safety maintained. This note was completed by: ANN DAVE RN NURSING PROG Observed: 02/03/2018 Status: COMPLETED Source: [place] 7:51 PM [facility] REPOSITORY HNO ID: [id number] Author: Cely RubioRn) Luiz RN Service: (none) Author Type: Registered Nurse Type: Nursing Progress Note Filed: 02/04/2018 12:25 AM Note Text: Nursing Progress Note Patient Name: Sonia Karimi Patient Location: [place] [address] [address] Daily Note: 1900 Assumed care of pt, pt resting in bed with family at bedside. Breathing regular and unlabored. Pt denies any needs at this time, call daniel within reach, bed alarm on. 1950 Assessment and vitals as charted. Pt denies any chest pain, SOB, headache, nausea, numbness or tingling. SCDs on bilaterally. Dressing on anterior neck is clean, dry, and intact. All extremities are warm, mobile, cap refill < 3 seconds, pulses present, sensation intact, strength strong bilaterally. Pt denies any needs at this time, call daniel within reach. Bed alarm on. Will continue to monitor. 0000 Pt resting in bed with eyes closed, breathing regular and unlabored, call daniel within reach, bed alarm on. Will continue to monitor. This note was completed by: Cely Dee RN PROGRESS Observed: 02/03/2018 Status: COMPLETED Source: [place] 2:37 PM [facility] OTHER CAMPUS REPOSITORY HNO ID: [id number] Author: Artem Dow Service: General Internal Medicine Author Type: Physician Type: Progress Notes Filed: 02/03/2018 2:39 PM Note Text: PROGRESS NOTE - INTERNAL MEDICINE PATIENT NAME: Sonia Karimi ADMITTING PHYSICIAN: Artem Dow SUBJECTIVE INTERVAL HISTORY OF PRESENT ILLNESS: Status post surgery yesterday. Sitting up in chair, having breakfast. Neck drain just removed this morning. OBJECTIVE PHYSICAL EXAM: BP 150/56 Pulse 84 Temp 36.7 ?C (98 ?F) (Oral) Resp 18 Ht 167.6 cm (5' 6) Wt 125.9 kg (277 lb 9 oz) SpO2 97% BMI 44.80 kg/m? Intake/Output Summary (Last 24 hours) at 02/03/18 1437 Last data filed at 02/03/18 0900 Gross per 24 hour Intake 2345 ml Output 1780 ml Net 565 ml GENERAL: Alert, no acute distress, cooperative, obese SKIN: Skin color, texture, turgor normal. No rashes or lesions. NECK: Anterior surgical dressing noted. LUNGS: Lungs clear to auscultation, Good diaphragmatic excursion CARDIAC: Normal S1 and S2; no rubs, murmurs, or gallops ABDOMEN: Abdomen soft, non-tender, BS normal x4 EXTREMITIES: No LE edema NEURO: AANDOx3, reports increased upper extremity strength already. PULSES: 2+ radial, 2+ carotid DATA: Diagnostic tests reviewed for today's visit: Most recent labs Most recent imaging CBC, Coags, BMP, Mg, Phos Recent Labs 02/03/18 0535 02/02/18 0421 02/01/18 0617 01/31/18 1907 WBC 14.75* 10.52 10.21 -- HB 11.5 11.3* 11.6 -- HCT 37.1 35.7* 36.7 -- PLT 241 235 223 -- INR -- 0.9 -- -- APTT -- -- -- 25.4 NA 138 139 138 -- K 4.1 3.9 4.2 -- CHLOR 101 102 99 -- CO2 26 25 27 -- BUN 12 18 20 -- CREAT 0.69 0.75 0.81 -- GLUC 119* 101* 113* -- CA 9.1 9.6 9.9 -- Liver Function, Amylase, AND Lipase Cardiac Enzymes ASSESSMENT AND PLAN Cervical myopathy [G72.9] - s/p ACDF C3-4 HTN - c/w amlodipine, maxzide HLD: statin Thyroid mass - noted on MRI - thyroid US: benign nodules Hypokalemia - replete, monitor constipation - c/w colace IRIS - CPAP Obesity DVT prophylaxis - SCDs ? Neurosurgery follow-up Mild leukocytosis noted, to follow Physical therapy. Acute rehabilitation discharge to plan. Urine culture negative. Bowel regimen optimized Artem Dow MD CASE MANAGEM Observed: 02/03/2018 Status: COMPLETED Source: [place] 1:54 PM [facility] REPOSITORY HNO ID: [id number] Author: Lola Bronson (Sw) Service: Case Management Author Type: Hat Lining Paster Type: Care Mgt Progress Note Filed: 02/03/2018 1:58 PM Note Text: CARE MANAGEMENT PROGRESS NOTE SERVICE DATE: 02/03/2018 SERVICE TIME: 1:54 PM LOS: 4 days Needs Prior to Discharge: Accepting Facility Notified by the RN BEVERLY that patient requesting additional contact. Met with the patient and a male to further discuss discharge planning. Reportedly, the patient called a friend and was informed that her insurance is accepted at [facility] and [facility]. Pt communicates that her first choice for AR is now [facility] followed by [facility]. AR ECIN sent to both facilities. SIGNATURE: JOSE Peacock PATIENT NAME: Sonia Karimi DATE: February 03, 2018 TIME: 1:54 PM PAGER/CONTACT #: [phone] PROGRESS Observed: 02/03/2018 Status: COMPLETED Source: [place] 11:58 AM [facility] REPOSITORY HNO ID: [id number] Author: Carlos Chung Service: Neurosurgery Author Type: Physician Pharmacist Type: Progress Notes Filed: 02/03/2018 12:03 PM Note Text: Spoke with Case mgmt today. Patient indicated Dr. Hayes concerned about gait instability or falling. Patient wants acute rehab especially [facility]. PMR consult placed. Needs PT/OT to see today or re-evaluate. Discharge to acute rehab when arrangements are complete. Carlos Chung PA-C CASE MANAGEM Observed: 02/03/2018 Status: COMPLETED Source: [place] 11:07 AM [facility] REPOSITORY HNO ID: [id number] Author: Ada Grant) MELODY Aguayo Service: Care Management Author Type: Registered Nurse Type: Care Mgt Progress Note Filed: 02/03/2018 11:15 AM Note Text: CARE MANAGEMENT PROGRESS NOTE SERVICE DATE: 02/03/2018 SERVICE TIME: 11:07 AM LOS: 4 days FREEDOM OF CHOICE GIVEN: Yes Patient Financial Disclosure Provided The patient and/or family has been given the Provider List: Yes Provider List: Rehab Facility Preference: [facility] and [facility] Needs Prior to Discharge: Accepting Facility Therapy is recommending Acute Rehab. Patient states she does not feel safe going home and wants to go to Acute Rehab. Patient given provider list. Patient chose [facility] and is aware it is out of network for her. Patient is checking with her insurance to see how much it will be out of pocket or does she only have to pay her 7500 deductible and then her insurance will pay the rest. Referrals to [facility] and to [facility]. Nicole OLIVER is placing a PMR consult. Will continue to follow. SIGNATURE: Ada Aguayo RN PATIENT NAME: Sonia Karimi DATE: February 03, 2018 TIME: 11:07 AM PAGER/CONTACT #: [phone] PROGRESS Observed: 02/03/2018 Status: COMPLETED Source: [place] 10:47 AM [facility] REPOSITORY HNO ID: [id number] Author: Farshad Arce (Pa) Service: Neurosurgery Author Type: Physician Pharmacist Type: Progress Notes Filed: 02/03/2018 10:48 AM Note Text: Drain removed. Incision; C/D/I new dressing placed. PROGRESS Observed: 02/03/2018 Status: COMPLETED Source: [place] 9:14 AM [facility] REPOSITORY HNO ID: [id number] Author: Latrice Hayes Service: Neurosurgery Author Type: Physician Type: Progress Notes Filed: 02/03/2018 9:15 AM Note Text: AVSS Neurologically much improved with full strength bilateral hands No trouble swallowing. Medical support PT/OT FU with me in 2 weeks NURSING PROG Observed: 02/03/2018 Status: COMPLETED Source: [place] 8:50 AM [facility] REPOSITORY HNO ID: [id number] Author: Nicole (Rn) MELODY Joel Service: Nursing Author Type: Registered Nurse Type: Nursing Progress Note Filed: 02/03/2018 11:44 AM Note Text: Nursing Progress Note Patient Name: Sonia Karimi Patient Location: [place] [address] Daily Note: Assessment completed as charted, see documentation. Pt AOx3. Pt c/o 6/10 pain at surgical site; lidoderm patch applied and pt medicated with percocet, see eMAR. Pt denies any new N/T since surgery. Neuro checks WNL. Pt denies any further needs at this time. Call daniel within reach. Will continue to monitor. This note was completed by: Nicole Joel RN CBC AND DIFFERENTIAL Collected: 02/03/2018 Status: F Source: [place] 5:35 AM [facility] REPOSITORY TYPE CODE TESTS RESULT OUT OF REFERENCE UNITS RANGE LAB WBC 3.70-11.00 k/uL WBC High 14.75 LAB RBC 3.90-5.20 m/uL RBC 4.38 LAB HGB 11.5-15.5 g/dL Hemoglobin 11.5 LAB HCT 36.0-46.0 % Hematocrit 37.1 LAB MCV 80.0-100.0 fL MCV 84.7 LAB MCH 26.0-34.0 pG MCH 26.3 LAB MCHC 30.5-36.0 g/dL MCHC 31.0 LAB RDWCV 11.5-15.0 % RDW-CV 13.6 LAB PLTCT 150-400 k/uL Platelet Count 241 LAB MPV 9.0-12.7 fL MPV 9.1 LAB ANEUT % Neut% 85.0 LAB AANEUT 1.45-7.50 k/uL Abs Neut High 12.53 LAB ALYMP % Lymph% 6.6 LAB AALYMP 1.00-4.00 k/uL Low Abs Lymph 0.97 LAB AMONO % Brown% 8.2 LAB AAMONO <0.87 k/uL Abs Brown High 1.21 LAB AEOS % Eosin% 0.1 LAB AAEOS <0.46 k/uL Abs Eosin <0.03 LAB ABASO % Baso% 0.1 LAB AABASO <0.11 k/uL Abs Baso <0.03 LAB DTYP DTYPE Auto Diff BASIC METABOLIC PANL Collected: 02/03/2018 Status: F Source: [place] 5:35 AM [facility] REPOSITORY TYPE CODE TESTS RESULT OUT OF REFERENCE UNITS RANGE LAB GLU 74-99 mg/dL Glucose High 119 LAB BUN 7-21 mg/dL BUN 12 LAB CRET 0.58-0.96 mg/dL Creatinine 0.69 LAB NA 136-144 mmol/L Sodium 138 LAB K 3.7-5.1 mmol/L Potassium 4.1 LAB CL 97-105 mmol/L Chloride 101 LAB CO2 22-33 mmol/L CO2 26 LAB AGAP 9-18 mmol/L Anion Gap 11 LAB CA 8.6-10.0 mg/dL Calcium, Total 9.1 NURSING PROG Observed: 02/02/2018 Status: COMPLETED Source: [place] 7:39 PM [facility] OTHER CAMPUS REPOSITORY HNO ID: [id number] Author: Cely (Rn) Luiz RN Service: (none) Author Type: Registered Nurse Type: Nursing Progress Note Filed: 02/03/2018 3:36 AM Note Text: Nursing Progress Note Patient Name: Sonia Karimi Patient Location: [facility]-2 Daily Note: 1900 Assumed care of pt, pt resting in bed with family at bedside. Breathing regular and unlabored, call daniel within reach, bed alarm on. 2019 Assessment and vitals as charted. Pt denies any chest pain, SOB, headache, nausea, or tingling. Pt reports slight numbness in bilateral upper extremities but reports this was her baseline prior to surgery. Breathing regular and unlabored. Dressing in intact with scant amount of serosangeous drainage, no change since hand off report. AILEEN drain is noted and to bulb suction. All extremities are warm, mobile, cap refill < 3 seconds, pulses present, strength is strong and equal bilaterally. IVF infusing as prescribed. Pt denies any needs at this time, call daniel within reach, bed alarm on. Will continue to monitor. 2039 Paged Paloma regarding held medications in APR. 2099 Paged Paloma regarding medications. 2129 Paged Paloma regarding medications. 2209 Spoke with Paloma regarding held medications was informed to contact surgery team. [address] Kim regarding help medications. 2247 Dr. Hayes combination building inspector for [facility], paged sent out. 2254 Spoke with Shaun, verbal order with read back to continue all held medications. 2340 Spoke with pharmacy was informed that pt has tolerated valium in the past with the allergy to ativan. 0000 Pt resting in bed with eyes closed, breathing regular and unlabored, call daniel within reach, bed alarm on. Will continue to monitor. 0300 Pt resting in bed with eyes closed, breathing regular and unlabored, call daniel within reach, bed alarm on. Will continue to monitor. This note was completed by: MELODY Evangelista POST Observed: 02/02/2018 Status: COMPLETED Source: [place] 4:37 PM [facility] REPOSITORY HNO ID: [id number] Author: Simran Lim Service: Anesthesiology Author Type: Anesthesiologist Type: Anesthesia PostOp Filed: 02/02/2018 4:37 PM Note Text: POST ANESTHESIA EVALUATION NOTE SERVICE DATE: 02/02/2018 SERVICE TIME: 4:37 PM : 1955 Vitals: 02/02/18 0930 02/02/18 1203 02/02/18 1521 02/02/18 1615 Temp: (!) 7 ?C (44.6 ?F) 36.8 ?C (98.2 ?F) 37 ?C (98.6 ?F) 37.3 ?C (99.1 ?F) 02/02/18 1545 02/02/18 1600 02/02/18 1615 02/02/18 1630 BP: 171/74 178/76 176/74 176/79 02/02/18 1545 02/02/18 1600 02/02/18 1615 02/02/18 1630 Pulse: 88 90 89 90 02/02/18 1545 02/02/18 1600 02/02/18 1615 02/02/18 1630 Resp: 16 16 12 16 02/02/18 1545 02/02/18 1600 02/02/18 1615 02/02/18 1630 SpO2: 97% 96% 96% 95% Validated Vital Signs: Yes POST ANES STATUS: No apparent anesthetic complications. The patient is appropriately hydrated with stable respiratory and cardiovascular status. Patient has safe and adequate airway control. The patient has appropriate pain relief and no significant post operative nausea or vomiting. The patient has achieved baseline mental status. Intra-Operative Events: No Significant Anesthesia Events Further assessment by Anesthesia Service: None Other Remarks: SIGNATURE: Dominique Goncalves MD PATIENT NAME: Sonia Karimi DATE: February 02, 2018 TIME: 4:37 PM PAGER/CONTACT #: [phone] NURSING PROG Observed: 02/02/2018 Status: COMPLETED Source: [place] 3:40 PM [facility] REPOSITORY HNO ID: [id number] Author: Mamie (Rn) MELODY Bar Service: Nursing Author Type: Registered Nurse Type: Nursing Progress Note Filed: 02/02/2018 6:00 PM Note Text: Nursing Progress Note Patient Name: Sonia Karimi Patient Location: [facility] * Daily Note: ASSUMED CARE OF PATIENT, VSS, WHEN AROUSED A+OX3 AND ID CHECKED X2, DENIES NAUSEA AND PAIN IS 10/10 TO THE INCISION SITE, ANTERIOR NECK DRESSING WITH SCANT AMOUNT SEROSANG DRAINAGE, AILEEN FROM NECK INCISION TO CONTINUOUS BULB SUCTION WITH SCANT SEROSANG DRAINAGE, NEUROVASCULAR CHECKS ARE INTACT SEE NPR, BILATERAL EQUALLY STRONG HAND GRASPS WITH PEDAL PUSHES AND PULLS, PATIENT WITH NUMBNESS/TINGLING TO HANDS PER PREOP STATUS, DEEP BREATHING ENCOURAGED, BILATERAL SEQUENTIALS ARE ON, NEUROVASCULAR CHECKS ARE INTACT SEE NPR 1555 PATIENT STILL C/O PAIN 10/10 TO THE ANTERIOR NECK INCISION 1620 SISTER OF THE PATIENT UPDATED AT THE BEDSIDE 1730 WHEN AROUSED PATIENT DENIES NAUSEA AND PAIN IS TOLERABLE 5/10, VSS, NECK DRESSING DRY 1745 SISTER OF THE PATIENT UPDATED AT THE BEDSIDE This note was completed by: Mamie Bar RN NURSING PROG Observed: 02/02/2018 Status: COMPLETED Source: [place] 3:34 PM [facility] [place] REPOSITORY HNO ID: [id number] Author: Addie (Rn) MELODY Linton Service: Nursing Author Type: Registered Nurse Type: Nursing Progress Note Filed: 02/02/2018 3:36 PM Note Text: Nursing Progress Note Patient Name: Sonia Karimi Patient Location: [facility] * 1521: Patient arrived to PACU from OR. Patient is awake and alert, resting in bed. C/o pain 9/10 and medicated by PROGRAMMING INSTRUCTOR at bedside. Patient endorses numbness and tingling in BUE but it is no different than preoperatively. See NPR and LDA for further assessment. This note was completed by: Addie Linton RN XR CERVICAL 2V Observed: 02/02/2018 Status: F Source: [place] AP/LAT 3:14 PM [facility] [place] REPOSITORY * * *Final Report* * * DATE OF EXAM: Feb 02 2018 3:14PM HCR 5308 - XR CERVICAL 2V AP/LAT / PROCEDURE REASON: PAIN * * * * Physician Interpretation * * * * RESULT: C-SPINE 02/02/2018 3:14 PM HISTORY: PAIN Fluoroscopic Radiation Summary: Plane A, Air Kerma: 9.7 mGy Dose Area Product (DAP): 0.0 mGy*cmS2 Fluoro time: 0:11 min:sec COMPARISON: MRI 01/30/2018 RESULT: 2 Fluoroscopic spot image(s) obtained by Dr. LATRICE HAYES. The radiologist was not present during the procedure. Anterior fusion plate at C3-4, appropriately positioned. - - IMPRESSION: FLUOROSCOPY FOR OPERATIVE SUPPORT. Please refer to the procedural report for further details. Transcribed Using Voice Recognition Transcribe Date/Time: Feb 03 2018 4:30P Dictated by: JOSSELYN BUENO MD This examination was interpreted and the report reviewed and electronically signed by: JOSSELYN BUENO MD on Feb 03 2018 4:32PM EST [id number] OP NOT Observed: 02/02/2018 Status: COMPLETED Source: [place] 2:47 PM [facility] REPOSITORY HNO ID: [id number] Author: Latrice Hayes Service: Neurosurgery Author Type: Physician Type: Brief Op Note Filed: 02/02/2018 2:48 PM Note Text: BRIEF OPERATIVE / PROCEDURE NOTE LOG ID: [id number] SURGERY/PROCEDURE DATE: 02/02/2018 INCISION/PROCEDURE START TIME: 1:42 PM INCISION CLOSE/PROCEDURE END TIME: 2:47 PM SURGEON(S)/PROCEDURALIST(S) AND CLIENT TECHNICAL SPECIALIST(S): Surgeon(s) and Role: * Latrice Hayes - Primary * Merrick (Donal) Ashley - Resident - Assisting No Additional Staff SURGERY/PROCEDURE(S): ACDF C3-4 ANESTHESIA: General FINDINGS: Instability ESTIMATED BLOOD LOSS: 20cc SPECIMENS: None COMPLICATIONS: None PRE-OP/PRE-PROCEDURE DIAGNOSIS: Myelopathy POST-OP/POST-PROCEDURE DIAGNOSIS: Spinal cord compression SIGNATURE: Latrice Hayes MD PATIENT NAME: Sonia Karimi DATE: February 02, 2018 TIME: 2:47 PM PAGER/CONTACT #: [phone] THERAPY NT Observed: 02/02/2018 Status: COMPLETED Source: [place] 12:01 PM [facility] REPOSITORY HNO ID: [id number] Author: Jose Gandhi/Leslee Dale Service: Occupational Therapy Author Type: Occupational Therapist Type: Therapy (PT/OT/Speech/Resp) Filed: 02/02/2018 12:01 PM Note Text: OCCUPATIONAL THERAPY MISSED VISIT SERVICE DATE: 02/02/2018 SERVICE TIME: 1200 to 1201 ROOM: SURG OR POOL ( Pre/Post 15) Attempted Evaluation (Re-Evaluation). Patient not seen due to Surgery (patient off floor for s/x at this time. ). OT will re-attempt Re-Evaluation as appropriate. Thank you. SIGNATURE: Jose Dale OT/L PATIENT NAME: Sonia Karimi DATE: February 02, 2018 TIME: 12:01 PM PROGRESS Observed: 02/02/2018 Status: COMPLETED Source: [place] 11:58 AM [facility] REPOSITORY HNO ID: [id number] Author: Artem Dow Service: General Internal Medicine Author Type: Physician Type: Progress Notes Filed: 02/02/2018 12:03 PM Note Text: PROGRESS NOTE - INTERNAL MEDICINE PATIENT NAME: Sonia Karimi ADMITTING PHYSICIAN: Artem Dow SUBJECTIVE INTERVAL HISTORY OF PRESENT ILLNESS: Patient sitting up in bed. Reports lidocaine patch and tylenol has helped her pain. Reports having a BM and waiting to have surgery around 11 am. OBJECTIVE PHYSICAL EXAM: BP 162/77 Pulse 64 Temp (!) 7 ?C (44.6 ?F) Resp 16 Ht 167.6 cm (5' 6) Wt 125.9 kg (277 lb 9 oz) SpO2 98% BMI 44.80 kg/m? Intake/Output Summary (Last 24 hours) at 02/02/18 1159 Last data filed at 02/02/18 1100 Gross per 24 hour Intake 2130 ml Output 225 ml Net 1905 ml GENERAL: Alert, no acute distress, cooperative, obese SKIN: Skin color, texture, turgor normal. No rashes or lesions. NECK: No jugulovenous distention, Supple, decreased ROM LUNGS: Lungs clear to auscultation, Good diaphragmatic excursion CARDIAC: Normal S1 and S2; no rubs, murmurs, or gallops ABDOMEN: Abdomen soft, non-tender, BS normal x4 EXTREMITIES: No LE edema NEURO: AANDOx3, Non-focal sensation intact B?L upper and lower extremities, 5/5 strength upper and lower extremities PULSES: 2+ radial, 2+ carotid DATA: Diagnostic tests reviewed for today's visit: Most recent labs Most recent imaging CBC, Coags, BMP, Mg, Phos Recent Labs 02/02/18 0421 02/01/18 0617 01/31/18 1907 01/30/18 1943 WBC 10.52 10.21 -- 14.93* HB 11.3* 11.6 -- 12.2 HCT 35.7* 36.7 -- 37.1 PLT 235 223 -- 259 INR 0.9 -- -- -- APTT -- -- 25.4 -- NA 139 138 -- 141 K 3.9 4.2 -- 3.5* CHLOR 102 99 -- 101 CO2 25 27 -- 25 BUN 18 20 -- 26* CREAT 0.75 0.81 -- 0.92 GLUC 101* 113* -- 164* CA 9.6 9.9 -- 9.6 Liver Function, Amylase, AND Lipase Cardiac Enzymes Recent Labs 01/30/18 1943 CK 102 ASSESSMENT AND PLAN Cervical myopathy [G72.9] - MRI spine: cord compression - Neurosurgery consulted - gabapentin, norco - tylenol and lidocaine patch Bladder fullness - check UA for UTI - UA positive for WBC, checking urine culture HTN - c/w amlodipine, maxzide HLD: statin Thyroid mass - noted on MRI - thyroid US: benign nodules Hypokalemia - replete, monitor constipation - c/w colace IRIS - CPAP Obesity DVT prophylaxis - SCDs ? Surgery was planned today SIGNATURE: Mandie Aguilar APRN.POWER MULE OPERATOR DATE: February 02, 2018 TIME: 11:59 AM CONTACT #: [phone] I have reviewed the progress note obtained and documented by the Certified Nurse Practitioner, and I personally participated in the rosario components. I have discussed the case and management of the patient's care. The following comments revise or confirm relevant rosario components of the Certified Nurse Practitioner's note. Artem Dow MD THERAPY NT Observed: 02/02/2018 Status: COMPLETED Source: [place] 11:51 AM [facility] REPOSITORY HNO ID: [id number] Author: Ashlee (Pt) Frank Service: Physical Therapy Author Type: Physical Therapist Type: Therapy (PT/OT/Speech/Resp) Filed: 02/02/2018 11:52 AM Note Text: PHYSICAL THERAPY MISSED VISIT SERVICE DATE: 02/02/2018 SERVICE TIME: 1140 to 1140 ROOM: [place] [address] Attempted Treatment. Patient not seen due to Surgery. Pt currently off the floor for Sx. Another attempt will be made to see this pt tomorrow for PT Re-Eval if pt is appropriate and as schedule allows. SIGNATURE: Ashlee Marie PT PATIENT NAME: Sonia Karimi DATE: February 02, 2018 TIME: 11:51 AM ANES PREOP Observed: 02/02/2018 Status: COMPLETED Source: [place] 11:50 AM [facility] REPOSITORY HNO ID: [id number] Author: Yaritza Hale Service: Anesthesiology Author Type: Anesthesiologist Type: Anesthesia PreOp Filed: 02/02/2018 11:52 AM Note Text: I attest the above information is accurate including: Chronic Beta Sherine medication administered within 24 hours: N/A Adequate NPO status: Yes Anesthetic risks, benefits, alternatives, personnel and consent discussed. Yes Patient agrees to proceed. Yes Pain Management Plan: Parenteral or Oral ASA Class: 3 Anesthetic Plan: General; Standard ASA Monitors Additional comments: Yaritza Hale MD February 02, 2018 HISTORY PHYSICAL Observed: 02/02/2018 Status: COMPLETED Source: [place] 11:17 AM [facility] HNO ID: [id number] Author: Latrice Hayes Service: Neurosurgery Author Type: Physician Type: HANDP Filed: 02/02/2018 11:17 AM Note Text: UPDATED HISTORY AND PHYSICAL EXAMINATION SERVICE DATE: 02/02/2018 SERVICE TIME: 11:17 AM PHYSICAL EXAM MUST BE COMPLETED ON ADMISSION The History and Physical (completed in the past 30 days) has been reviewed and the patient has been examined. The contents accurately reflect the patient's condition with the following additions or revisions since the HANDP was completed. Examination indicates no changes. This HANDP can be found in the attached. SIGNATURE: Latrice Hayes MD PATIENT NAME: Sonia Karimi DATE: February 02, 2018 TIME: 11:17 AM PAGER:[phone] NURSING PROG Observed: 02/02/2018 Status: COMPLETED Source: [place] 10:54 AM [facility] REPOSITORY HNO ID: [id number] Author: Mamie RubioRn) MELODY Lema Service: (none) Author Type: Registered Nurse Type: Nursing Progress Note Filed: 02/02/2018 6:18 PM Note Text: Nursing Progress Note Patient Name: Sonia Karimi Patient Location: [place] [address] [address]-2 Daily Note:0834 Pt alert and oriented X 3. States posterior neck pain 8-9. Medicated with 1000 mg tylenol with sips H2O. Continues to c/o numbness and tingling to BUE and BLE. Gait unsteady. Using BSC with assist for voids.IV fluids infusing. Assessment as charted. This note was completed by: Mamie Lema RN 1125 Report given to Delilah in tianna-op. 1135 Out via bed to tianna-op. 1805 Pt returned to room. Anterior left neck dressing intact with serosanguinous fluid drips from lower edge. Pt states able to feel temperature of my hands when touching pt feet, improved since prior to surgery. AILEEN intact. States still has numbness and tingling to BUE. Pt sister present . Pt passed swallow eval. THERAPY NT Observed: 02/02/2018 Status: COMPLETED Source: [place] 7:42 AM [facility] REPOSITORY HNO ID: [id number] Author: Ashlee (Pt) Frank Service: Physical Therapy Author Type: Physical Therapist Type: Therapy (PT/OT/Speech/Resp) Filed: 02/04/2018 9:06 AM Note Text: Physical Therapy Re-Evaluation SERVICE DATE: 02/03/2018 SERVICE TIME: 1550 to 1620 ROOM: [place] [address] Recommended Discharge Disposition: Acute Rehab Recommended Discharge Disposition Comments: Rec AR to maximize functional mobility and safety Justification For Post Acute Needs: Anticipate that patient will require daily (5x/wk) skilled therapy in a post-acute facility setting at the time of acute hospital discharge;Anticipate patient will tolerate 3 hours of daily therapy at the time of admission to post-acute setting Recommended Discharge Equipment: No equipment needs anticipated PT Recommendations to Nursing: Ambulate with device;Transfer to/from chair;OOB for Meals;With assist of 2 people Device: Wheeled Walker PT 6 Clicks Score: 17 Precautions/Activity Restrictions: Fall Risk;Spine (Cervical ) ASSESSMENT : Pt presents with continued functional mobility deficits needing continued skilled PT services to maximize therapy potential. Patient Disposition at Start of Session: Supine in Bed;Call Daniel in Reach Patient Disposition at End of Session: OOB in Chair;Call Daniel in Reach Tolerated Full Session Physical Therapy Problem List: Balance Impaired;Functional Mobility Impairment;Decreased Strength;Decreased Range Of Motion;Decreased Activity Tolerance;Impaired Self Care;Safety Deficits;Pain Patient /Caregiver Goals: Go Home Goals for Plan of Care: Able to perform HEP with: Verbal Cues Only Transfer supine to/from sit with: Modified Independent Transfer sit to/from stand with: Modified Independent Ambulate with: Modified Independent Distance: 50 Device: Wheeled Walker Ambulate up and down steps with: Contact Guard Assistance Number of steps: 3 Device: Rail Transfer: All functional transfers with mod I Rehab Potential: Good PLAN: Treatment Frequency (times per week): 7 Treatment Duration (number): (as able LOS) Current admission Treatment Interventions: Education;Self Care / Home Management;Energy Conservation Training;Joint Mobility;Strengthening;Functional Mobility Training;Balance Training;Neuromuscular Re-education Plan of Care developed with: Patient TREATMENT INTERVENTIONS: Therapy Diagnosis: Reduced mobility-other Interventions Provided: Re-evaluation;Therapeutic Activity (92379) $ Reevaluation (99681) Billed Units: 1 unit Patient presents with impaired functional mobility, ADL performance, strength and endurance impacting ability to function without physical assist from staff. Patient's needs exceeds resources available at home to safely return home at this time secondary to current functional deficits. Pt currently requires skilled therapy to address mobility and self care limitations as well as progression of activities within safe limits to prevent falls. Patient is currently stable in presentation though work up is still in progress, and requires Min A with all functional mobility. Pt is a low complexity evaluation for these reasons. Therapeutic Activity (83672) Treatment Minutes: 25 2 units Skilled Intervention(s): Instructed patient in log roll technique onto L side Instructed patient in supine to sit pushing with upper extremities to sit up from log roll Instruction in sit to stand technique with proper hand placement and body positioning at edge of bed/chair from elevated bed surface Instruction in stand to sit technique with lower extremities touching chair/bed and reaching back for surface, good hand placement and sits down with control Instruction in sit to and from stand technique with proper hand placement and body positioning at edge of bed to sidestep to bedside chair. Education with proper tech, hand placement and rational of spinal precautions including log roll tech. Verbal review of Cervical post-op precautions, pt verbalized understanding. Pt advised to minimize any stress on neck and to keep B UE's at shoulder height or below to avoid cervical strain, pt verbalized understanding. Pt stood up from elevated bed and performed static stand progressing to dynamic standing activities including: lateral weight shift, foot forward tap, 1 step forward and 1 step backward and sidestepping along EOB, attempted marching-pt refused d/t B knee OA-abandon activity. No knee buckle or instability noted in B LE's during dynamic standing activities. Pt then performed short gait trials with RW and then sat in bedside chair post session. No knee buckle PT RE-Eval initiated with pt education regarding role of PT, D/C Recommendations, pausing with transitions checking for dizziness, along with sitting up in the chair for every meal. Pt instructed in seated exe x 10 reps 3x daily consisting of: AP, LAQ, and Marching, pt familiar with and agrees to do them on her own. Total Timed Code Treatment Minutes: 25 Total Treatment Time (minutes): 30 FUNCTIONAL G CODE: PT 6 Clicks Score: 17 (02/03/18 1550) Mobility: Walking and Moving Around Current Status (G8978): CK (02/03/18 1550) Mobility: Walking and Moving Around Goal Status (G8979): CJ (02/03/18 1550) Based on clinical assessment and the score on the 6 Clicks Functional Assessment Tool, the G code and corresponding severity modifiers are documented above. SUBJECTIVE: Current Hospital Course: Per EPIC: Pt is a 62 yo female with progressive cervical myelopathy over last 2 weeks, unable to use arms/hands. Deltoid 2/5, left biceps tricep 2/5, right biceps triceps 3/5, hand intrinsics 2/5. ? 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 Procedure 02/02/18: ARTHRODESIS ANT DISC PREP DISCECTOMY OSTEOPHYTECTOMY DECOMPRES S CORD/NERVE ROOT C' BELOW C2 Reason for Physical Therapy Consult : Sx 02/02/18 Ant Disectomy decompression Relevant Past Medical History: cervical myopathy; frequent falls Patient Report: Nursing Ok'd therapy. Patient verbally consented to therapy. Pt is pleasant and cooperative. 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 OBJECTIVE: CURRENT FUNCTIONAL STATUS: Current Functional Mobility Assist Level Additional Information Rolling Contact Guard Assistance (log roll to prevent Cervical Rotation ) Supine to Sit Minimal Assistance Sit to Supine (pt up in chair post session ) Scooting Supervision Sit to Stand Minimal Assistance (with bed elevated ) Stand to Sit Minimal Assistance Bed to Chair Minimal Assistance (sidestepping from foot of bed to chair ) Bed To Chair Transfer Equipment: Wheeled Walker Toilet/Commode Contact Guard Assistance Gait Minimal Assistance Gait Device: Wheeled Walker Gait Distance (feet): 5' x 2, 5' sidesteps along EOB Stairs Curb Step Car Transfer General Gait Deviations: Kamar decreased;Step length decreased;Flexed trunk posture (Increased knee flexion) Balance: Static Sitting;Dynamic Sitting;Static Standing;Dynamic Standing Static Sitting Balance: Independent Dynamic Sitting Balance: Supervision Static Standing Balance: Contact Guard Assistance Dynamic Standing Balance: Minimal Assistance JH-HLM: 5: Standing (1 or more minutes) Please see discipline specific clinical documentation flowsheet for complete details for this therapy evaluation/treatment. SIGNATURE: Ashlee Marie PT PATIENT NAME: Sonia Karimi DATE: February 02, 2018 TIME: 7:42 AM CBC AND DIFFERENTIAL Collected: 02/02/2018 Status: F Source: [place] 4:21 AM [facility] OTHER [facility] REPOSITORY TYPE CODE TESTS RESULT OUT OF REFERENCE UNITS RANGE LAB WBC 3.70-11.00 k/uL WBC 10.52 LAB RBC 3.90-5.20 m/uL RBC 4.28 LAB HGB 11.5-15.5 g/dL Low Hemoglobin 11.3 LAB HCT 36.0-46.0 % Low Hematocrit 35.7 LAB MCV 80.0-100.0 fL MCV 83.4 LAB MCH 26.0-34.0 pG MCH 26.4 LAB MCHC 30.5-36.0 g/dL MCHC 31.7 LAB RDWCV 11.5-15.0 % RDW-CV 13.8 LAB PLTCT 150-400 k/uL Platelet Count 235 LAB MPV 9.0-12.7 fL MPV 9.2 LAB ANEUT % Neut% 64.7 LAB AANEUT 1.45-7.50 k/uL Abs Neut 6.81 LAB ALYMP % Lymph% 25.0 LAB AALYMP 1.00-4.00 k/uL Abs Lymph 2.63 LAB AMONO % Brown% 7.2 LAB AAMONO <0.87 k/uL Abs Brown 0.76 LAB AEOS % Eosin% 2.7 LAB AAEOS <0.46 k/uL Abs Eosin 0.28 LAB ABASO % Baso% 0.4 LAB AABASO <0.11 k/uL Abs Baso 0.04 LAB DTYP DTYPE Auto Diff BASIC METABOLIC PANL Collected: 02/02/2018 Status: F Source: [place] 4:21 AM [facility] OTHER CAMPUS REPOSITORY TYPE CODE TESTS RESULT OUT OF REFERENCE UNITS RANGE LAB GLU 74-99 mg/dL Glucose High 101 LAB BUN 7-21 mg/dL BUN 18 LAB CRET 0.58-0.96 mg/dL Creatinine 0.75 LAB NA 136-144 mmol/L Sodium 139 LAB K 3.7-5.1 mmol/L Potassium 3.9 LAB CL 97-105 mmol/L Chloride 102 LAB CO2 22-33 mmol/L CO2 25 LAB AGAP 9-18 mmol/L Anion Gap 12 LAB CA 8.6-10.0 mg/dL Calcium, Total 9.6 PROTIME Collected: 02/02/2018 Status: F Source: [place] 4:21 AM [facility] OTHER CAMPUS REPOSITORY TYPE CODE TESTS RESULT OUT OF RANGE REFERENCE UNITS LAB PSEC 9.7-13.0 sec PT Sec 10.3 LAB INR 0.9-1.3 PT INR 0.9 Result Comment: Vitamin K Antagonist (VKA) Therapeutic Range: INR 2 to 3 (Target INR of 2.5) Note: For patients treated with VKA drugs, such as warfarin, the [place] [employer] 2012 Guideline recommends a therapeutic INR range of 2 to 3 (target INR of 2.5). This recommendation includes high-risk patients with antiphospholipid syndrome with previous arterial or venous thromboembolism, current-generation mechanical or bioprosthetic aortic heart valve replacement. Note: Patients with mechanical aortic valve replacement and additional risk factors for thromboembolic events (atrial fibrillation, previous thromboembolism, LV dysfunction, hypercoagulable conditions) or an older generation mechanical AVR (i.e., ball in-Cage) or any mechanical MVR should have a INR therapeutic range of 2.5 to 3.5 (target INR of 3). Radha CHOWDHURY, et al. Chest 2012, 141:7S-47S Hawa RA, et al. [facility] 2017, 70: 252-289 OPERATIVE NO Observed: 02/02/2018 Status: COMPLETED Source: [place] 12:00 AM [facility] OTHER CAMPUS REPOSITORY HNO ID: [id number] Author: Latrice Hayes Service: Neurosurgery Author Type: Physician Type: Operative Report Filed: 02/03/2018 6:02 PM Note Text: [facility] - Operative Report SONIA KARIMI : 1955 AGE: 62. SEX: F PATIENT TYPE: I HOSP SVC: INT LOCATION: [facility] ATTENDING PHYSICIAN: Artem Dow MD CSN NUMBER: [id number] DATE OF SURGERY/PROCEDURE: 02/02/2018 INCISION/PROCEDURE START TIME: 1:42 PM INCISION CLOSE/PROCEDURE END TIME: 3:15 PM PREOPERATIVE DIAGNOSIS: C3-4 grade 1 spondylolisthesis, C3- 4 disk herniation, C3-4 spinal cord compression, progressive myelopathy. POSTOPERATIVE DIAGNOSIS: C3-4 grade 1 spondylolisthesis, C3-4 disk herniation, C3-4 spinal cord compression, progressive myelopathy. SURGEON: Latrice Hayes MD CLIENT TECHNICAL SPECIALIST: patient care nursing assistant is Dr. Merrick Ramirez. SURGERY/PROCEDURE: Anterior cervical diskectomy at C3-4 level, anterior cervical partial corpectomy at C3-4 level, anterior cervical interbody arthrodesis utilizing allogenous bone graft at C3-4, anterior cervical C3-4 instrumentation utilizing Colleen spine instrumentation, application of Antonio-Wells tongs, utilization of intraoperative microscope, utilization of intraoperative somatosensory motor-evoked potential monitoring. ANESTHESIA: General endotracheal. ESTIMATED BLOOD LOSS: 20 cc. FLUIDS: The patient received 1200 cc of crystalloid. COMPLICATIONS: None. INDICATIONS FOR SURGERY: The patient is 62-year-old female, who has progressive weakness in arms, legs, inability to ambulate. The patient was admitted through the emergency room. The patient's MRI scan demonstrated cervical spinal cord compression at C3-4 with myelomalacia. The patient decided to go ahead with surgical intervention. Surgical benefits and risks were discussed in detail including bleeding, infection, CSF leak, paralysis, failure to improve, need for further surgeries, trouble swallowing, permanent feeding tube, carotid artery injury, esophageal injury, , stroke, myocardial infarction, DVT, PE. DESCRIPTION OF PROCEDURE: After patient was identified over in the preoperative area, she was brought towards operating room where she was intubated. Perioperative antibiotics were administered. The patient was placed supine on flat Jamal table and her pressure points were double padded considering her body habitus. Antonio- Wells tongs were applied along with 20 pounds of traction. Intraoperative C-arm was used to identify operative levels. The patient's neck was prepped and draped in sterile fashion. Left transverse incision was made with a #20 scalpel. Dissection was carried down through subcutaneous tissue. The platysma was transgressed undermined cranially and caudally. Superficial cervical fascia was opened. Medial edge of sternocleidomastoid muscle was identified. Dissection plane in between trachea and esophagus medially carotid sheath laterally was established. Prevertebral space was entered. Distraction pin was placed at C3 and the level was verified with intraoperative C-arm and confirmed independently by Dr. Kim. Longus colli muscles were detached bilaterally and self-retaining retractors were applied. Distraction across C3-4 disk space was initiated. Significant instability was encountered. C3-4 diskectomy was started with a #15 blade. Large anterior osteophytes were removed with 3 mm Kerrison rongeurs. Intraoperative microscope was introduced and rest of surgery was done under the microscope. Partial corpectomy for about 55% range was performed with high-speed Midas Jacob drill, posterior osteophytes were resected along with the uncovertebral joints. Decompression was achieved cranially and caudally. Copious irrigation was used. The patient's somatosensory and motor-evoked potentials remained stable. Anterior C3-4 interbody arthrodesis was performed with 10 mm lordotic allograft inserted with standard techniques. Traction was removed. Anterior cervical spine instrumentation of C3-4 was performed with 12-mm [place] spine anterior cervical plate, which was secured at C3-4 with bilateral 14 mm variable angle screws. AP and lateral C-arm views demonstrated good placement of instrumentation. The patient's somatosensory and motor-evoked potentials remained stable. Copious irrigation was used. Prevertebral drain was exited through a separate stab wound. Wound was closed in sterile fashion utilizing 3-0 Vicryl, 4-0 Monocryl, and Steri- Strips. Sterile dressing was applied. The Antonio-Wells tongs were removed. The patient was extubated. The patient was taken over to recovery room with stable vital signs. At the end of the procedure, needle and sponge count was correct. There were no intraoperative complications. The patient's somatosensory and motor-evoked potentials remained stable throughout the procedure. Latrice Hayes MD TA:[id number] /[id number] cc: NURSING PROG Observed: 02/01/2018 Status: COMPLETED Source: [place] 7:50 PM [facility] REPOSITORY HNO ID: [id number] Author: Peg Grant) Yanely Duran RN Service: (none) Author Type: Registered Nurse Type: Nursing Progress Note Filed: 02/02/2018 12:26 AM Note Text: Nursing Progress Note Patient Name: Sonia Karimi Patient Location: [place] [address]466-2 Daily Note: 1952 Pt up to the chair, up with assist x2. Assessment performed and documented at this time. Pt reports chronic numbness and tingling to her all extremities. Safety measures reviewed with Pt, call light within a reach, will continue to monitor. 0000 Prior assessment unchanged, Pt made NPO to procedure in AM. IV fluids infusing, Pt resting, will continue to monitor. This note was completed by: Peg Duran RN ANES PREOP Observed: 02/01/2018 Status: COMPLETED Source: [place] 3:16 PM [facility] REPOSITORY HNO ID: [id number] Author: Igor Berry (Aa) Service: Anesthesiology Author Type: Reciprocating Drill Operator Type: Anesthesia PreOp Filed: 02/01/2018 3:19 PM Note Text: Attestation signed by Jadon Gaona IV at 02/01/2018 4:22 PM Staff Note I have reviewed pertinent medical records/tests regarding this patient. Agree with the anesthesia provider's assessment and plan. Jadon Gaona IV, DO February 01, 2018 4:22 PM ANESTHESIOLOGY PREOPERATIVE ASSESSMENT SERVICE DATE: 02/01/2018 : 1955 SERVICE TIME: 1520 Surgeon(s): Latrice Hayes Procedure(s) (LRB): DISCECTOMY CERVICAL ANTERIOR WITH FUSION (N/A) Estimated body mass index is 44.8 kg/m? as calculated from the following: Height as of this encounter: 167.6 cm (5' 6). Weight as of this encounter: 125.9 kg (277 lb 9 oz). MOST RECENT HEMATOCRIT AND POTASSIUM RESULTS: Hematocrit 36.7 02/01/2018 Potassium 4.2 02/01/2018 CBC with diff: WBC 10.21 02/01/2018 RBC 4.39 02/01/2018 Hemoglobin 11.6 02/01/2018 Hematocrit 36.7 02/01/2018 MCV 83.6 02/01/2018 MCH 26.4 02/01/2018 MCHC 31.6 02/01/2018 RDW-CV 13.7 02/01/2018 Platelet Count 223 02/01/2018 MPV 9.5 02/01/2018 Neut% 73.1 02/01/2018 Lymph% 17.1 02/01/2018 Brown% 6.6 02/01/2018 Eosin% 2.9 02/01/2018 Baso% 0.3 02/01/2018 Abs Neut (ANC) 7.46 02/01/2018 Abs Brown 0.67 02/01/2018 Abs Eosin 0.30 02/01/2018 Abs Baso 0.03 02/01/2018 Glucose (mg/dL) Date Value 02/01/2018 113 Potassium (mmol/L) Date Value 02/01/2018 4.2 Sodium (mmol/L) Date Value 02/01/2018 138 Chloride (mmol/L) Date Value 02/01/2018 99 CO2 (mmol/L) Date Value 02/01/2018 27 Creatinine (mg/dL) Date Value 02/01/2018 0.81 BUN (mg/dL) Date Value 02/01/2018 20 Anion Gap (mmol/L) Date Value 02/01/2018 12 Calcium (mg/dL) Date Value 02/01/2018 9.9 ANES DOS/PREOP NOTE: Vitals: 01/31/18 1622 01/31/18 2056 02/01/18 0038 02/01/18 0752 BP: (!) 109/16 149/54 137/62 131/70 Pulse: 66 81 60 64 Resp: Temp: 37.1 ?C (98.7 ?F) 36.8 ?C (98.3 ?F) 36.7 ?C (98 ?F) 36.9 ?C (98.4 ?F) TempSrc: Oral Oral Oral Oral SpO2: 97% 97% 97% 99% Weight: Height: ACTIVE PROBLEM LIST Essential Hypertension Cervical Polyp Hyperlipidemia Osteoarthritis of Both Knees Sleep Apnea Obesity, Class Iii, Bmi 40-49.9 (Morbid Obesity) (Hcc) Cervical Myopathy Cervical Spondylosis With Myelopathy PAST MEDICAL HISTORY Diagnosis Date - Cervical polyp - COPD (chronic obstructive pulmonary disease) ([facility]) - Hyperlipidemia - Hypertension - Minor depression PAST SURGICAL HISTORY Procedure Laterality Date - REMOVAL ADENOIDS,PRIMARY,<12 Y/O Adenoidectomy - REMOVAL OF TONSILS,<12 Y/O Tonsillectomy FAMILY HISTORY Problem Relation Age of Onset - Cancer Father leukemia - Cancer Mother skin cancer - Cancer Paternal Grandfather stomach cancer - Cancer Paternal Grandmother colon to liver - Cancer Sister cancer in situ - breast - Diabetes Father - Diabetes Sister - Heart Mother tachycardia Social History: Social History Substance Use Topics - Smoking status: Former Smoker - Smokeless tobacco: Never Used Comment: Quit smokig 38 years ago - Alcohol use No No current facility-administered medications on file prior to encounter. Current Outpatient Prescriptions on File Prior to Encounter: amLODIPine (NORVASC) 5 mg tablet Take 1 tablet by mouth once daily. atorvastatin (LIPITOR) 10 mg tablet Take 1 tablet by mouth once daily. cholecalciferol (VITAMIN D-3) 2,000 unit tablet Take 2,000 Units by mouth once daily. cloNIDine HCl (CATAPRES) 0.1 mg tablet Take 1 tablet by mouth daily at bedtime. COMPOUNDED PRESCRIPTION BIPAP 1 liter bleed in 12/5 cm. RR 14Replacement machine with heated humidity. CPAP mask and supplies.Use nightly. diclofenac XR (VOLTAREN-XR) 100 mg Tb24 TAKE 1 TABLET DAILY WITH FOOD gabapentin (NEURONTIN) 100 mg capsule TAKE 2 CAPSULES BY MOUTH TWICE A DAY [id number] D3 ORAL Take 3 tablets by mouth once daily. HYDROcodone-acetaminophen (NORCO) 5-325 mg per tablet Take 1 tablet by mouth at bedtime as needed for up to 30 days.Earliest Fill Date: 08/29/17 HYDROcodone-acetaminophen (NORCO) 5-325 mg per tablet Take 1 tablet by mouth at bedtime as needed for up to 30 days. MULTIVIT WITH IRON-MINERALS (MULTIVITAMIN AND MINERALS ORAL) Take 1 tablet by mouth once daily. predniSONE (DELTASONE) 10 mg tablet Please take 3 pills twice daily for 3 days, then 2 pills twice daily for 3 days, then 1 pill twice daily for 3 days, then 1 pill daily till gone. (Patient not taking: Reported on 01/30/2018 ) sertraline (ZOLOFT) 100 mg tablet Take 1 tablet by mouth once daily. triamterene-hydrochlorothiazide 37.5-25 mg per capsule Take 1 capsule by mouth once daily. Current Facility-Administered Medications: acetaminophen 1,000 mg tab(s) (TYLENOL) 1,000 mg ORAL q 6 H PRN Artem P Paloma 1,000 mg at 02/01/18 1043 acetaminophen 650 mg tab(s) (TYLENOL) 650 mg ORAL q 4 H PRN Mandie (Instrument Adjuster.Scale Reclamation Tender) Jeff amLODIPine 2.5 mg tab(s) (NORVASC) 2.5 mg ORAL DAILY Artem P Paloma 2.5 mg at 02/01/18 1044 atorvastatin 10 mg tab(s) (LIPITOR) 10 mg ORAL DAILY Mandie (Instrument Adjuster.Scale Reclamation Tender) Jeff 10 mg at 02/01/18 1044 cloNIDine HCl 0.1 mg tab(s) (CATAPRES) 0.1 mg ORAL AT BEDTIME Artem P Paloma 0.1 mg at 01/31/18 2100 docusate sodium 100 mg cap(s) (COLACE) 100 mg ORAL BID Mandie (Instrument Adjuster.Scale Reclamation Tender) Jeff 100 mg at 02/01/18 1044 gabapentin 200 mg cap(s) (NEURONTIN) 200 mg ORAL BID Artem P Paloma 200 mg at 02/01/18 1044 HYDROcodone 5 mg - acetaminophen 325 mg tablet (NORCO) 1 tablet ORAL HS PRN Artem P Paloma 1 tablet at 01/31/18 2100 lidocaine - VERIFY PATCH OTHER q 8 H Mandie (Instrument Adjuster.Scale Reclamation Tender) Jeff lidocaine 5 % 1 Patch (LIDODERM) 1 Patch TRANSDERMAL DAILY Mandie (Instrument Adjuster.Scale Reclamation Tender) Jeff 1 Patch at 02/01/18 1041 lidocaine patch - REMOVE OTHER AT BEDTIME Mandie (Instrument Adjuster.Scale Reclamation Tender) Jeff NaCl 0.9% iv infusion 75 mL/hr INTRAVENOUS CONTINUOUS [place] (Res) Ashley Last Rate: 75 mL/hr at 02/01/18 1446 75 mL/hr at 02/01/18 1446 sertraline 100 mg tab(s) (ZOLOFT) 100 mg ORAL DAILY (8 PM) Artem P Paloma 100 mg at 01/31/18 2111 Allergies: ALLERGIES Allergen Reactions - Ativan [Lorazepam] Hives - Neosporin [Benzalko* Rash REVIEW OF SYSTEMS: REVIEW OF SYSTEMS: As stated in Active Problem List/ Past Medical History ANESTHESIOLOGY REVIEW: Airway Assessment: MP 1; Neck ROM: Limited Flexion and Extension and Parasthesia with Flexion and Extension; Airway Evaluation: Short Neck and Thick neck Symptoms of Sleep Apnea: IRIS Intubation History: No previous history of difficult intubation Dentition: Missing tooth multiple molars ADDITIONAL PHYSICAL EXAM: Lungs: Patient health status unchanged since recent history and physical. See history and physical for exam findings. Cardiac: Patient health status unchanged since recent history and physical. See history and physical for exam findings. Additional Pertinent Findings: N/A ADVERSE ANESTHESIA EVENT: No history of adverse event FAMILY HIISTORY OF ANESTHESIA: No known issues BLOOD PRODUCTS: Will accept Blood/Blood Products OTHER MEDICAL PROBLEMS: Pt stopped steroids about 2 weeks ago I have interviewed and examined the patient. I have reviewed the medical record and/or the pre-anesthesia evaluation, pertinent labs, and test results. Significant changes in the patient's condition since the History and Physical, not otherwise documented in primary service progress notes: No Anesthetic risks, benefits, alternatives, personnel and consent discussed: Yes ANES REVIEW: This contains updated information obtained within 48 hours of Surgery/Procedure. EKG CONCLUSIONS: - Technically difficult exam due to body habitus. - Exam indication: Routine surveillance of valve stenosis - The left ventricle is normal in size.Left ventricular systolic function is hyperdynamic. EF = 75 ? 5% (2D biplane) Baseline left ventricular diastolic function is consistent with abnormal relaxation (stage 1). - The right ventricle is normal in size. Right ventricular systolic function is normal. - The left atrial cavity is mildly dilated. (39 cc/m?) - There is mild aortic stenosis (Vmax 2.1 m/s) - Prior echocardiogram performed on 04/09/2012. No significant change. ? EKG NAME : SONIA KARIMI PID : [id number] : 1955 Gender : Female Race : ORD : [id number] ? Procedure Date : Jan 31 2018 18:50:24 Edit Date : Feb 01 2018 09:41:50 ? Diagnosis:SINUS RHYTHM WITH MARKED SINUS ARRYTHMIA OTHERWISE NORMAL ECG WHEN COMPARED WITH ECG OF 16-FEB-2004 10:32, NO SIGNIFICANT CHANGE WAS FOUND Confirmed by NERISSA CARMICHAEL M.D. ([id number]) on 02/01/2018 9:41:48 AM ? Ventricular Rate : 69 ?BPM Atrial Rate : 69 ?BPM P-R Interval : 152 ?ms QRS Duration : 80 ?ms Q-T Interval : 390 ?ms QTC Calculation(Bezet) : 417 ?ms P [employer] : 74 ?degrees R [employer] : 42 ?degrees T [employer] : 36 ?degrees ? Test Reason : Pre OP ? Location : 124 : 4B L ?466 ? Overread By : NERISSA CARMICHAEL M.D. Edited By : NERISSA CARMICHAEL M.D. Referred By : ARTEM DOW Acquired by : VENU HILLIARD SIGNATURE: BARB Estevez PATIENT NAME: Sonia Karimi DATE: February 01, 2018 TIME: 3:16 PM PAGER/CONTACT #: CASE MANAGEM Observed: 02/01/2018 Status: COMPLETED Source: [place] 1:59 PM [facility] OTHER [place] REPOSITORY HNO ID: [id number] Author: Ivana RubioRn) MELODY Ward Service: Care Management Author Type: Registered Nurse Type: Care Mgt Progress Note Filed: 02/01/2018 2:02 PM Note Text: CARE MANAGEMENT PROGRESS NOTE SERVICE DATE: 02/01/2018 SERVICE TIME: 2:00 PM LOS: 2 days FREEDOM OF CHOICE GIVEN: Yes 02/01/2018 Financial Disclosure Provided The patient and/or family has been given the Provider List: Yes Provider List: Rehab Facility Met with patient at bedside. Discussed possible discharge needs. Patient states she does not want to go to rehab facility and prefers to go home with home therapy. Patient states she has family that can assist her at home. Surgery is planned for tomorrow and will need therapy evaluations post op. Referral sent to [facility] due to insurance. Will follow. SIGNATURE: Ivana Ward RN PATIENT NAME: Sonia Karimi DATE: February 01, 2018 TIME: 2:00 PM PAGER/CONTACT #: [phone] NURSING PROG Observed: 02/01/2018 Status: COMPLETED Source: [place] 11:17 AM [facility] OTHER CAMPUS REPOSITORY HNO ID: [id number] Author: Mamie RubioRn) MELODY Lema Service: (none) Author Type: Registered Nurse Type: Nursing Progress Note Filed: 02/01/2018 4:59 PM Note Text: Nursing Progress Note Patient Name: Sonia Karimi Patient Location: [place] [address]/[facility]466-2 Daily Note:0745 Pt alert and oriented X 3. States pain to posterior neck. Dr. Hayes and JADE Ashley in. Deferred to attending. Pt states N/T to BUE and BLE. NPO for OR. Assessment as charted. This note was completed by: Mamie Lema RN 0810 Pt seen by Adry Morin CNP. Orders received. 1043 Medicated with 1000 mg tylenol for posterior neck pain. 1643 Medicated with 1000 mg Tylenol. No change in assessment. ANES PREOP Observed: 02/01/2018 Status: COMPLETED Source: [place] 10:12 AM [facility] REPOSITORY HNO ID: [id number] Author: Yaritza Hale Service: Anesthesiology Author Type: Anesthesiologist Type: Anesthesia PreOp Filed: 02/02/2018 11:50 AM Note Text: ANESTHESIOLOGY PREOPERATIVE ASSESSMENT SERVICE DATE: 02/01/2018 : 1955 SERVICE TIME: 10:13 AM Surgeon(s): Latrice Hayes Procedure(s) (LRB): DISCECTOMY CERVICAL ANTERIOR WITH FUSION (N/A) Estimated body mass index is 44.8 kg/m? as calculated from the following: Height as of this encounter: 167.6 cm (5' 6). Weight as of this encounter: 125.9 kg (277 lb 9 oz). MOST RECENT HEMATOCRIT AND POTASSIUM RESULTS: Hematocrit 36.7 02/01/2018 Potassium 4.2 02/01/2018 ANES DOS/PREOP NOTE: Vitals: 01/31/18 1622 01/31/18 2056 02/01/18 0038 02/01/18 0752 BP: (!) 109/16 149/54 137/62 131/70 Pulse: 66 81 60 64 Resp: Temp: 37.1 ?C (98.7 ?F) 36.8 ?C (98.3 ?F) 36.7 ?C (98 ?F) 36.9 ?C (98.4 ?F) TempSrc: Oral Oral Oral Oral SpO2: 97% 97% 97% 99% Weight: Height: ACTIVE PROBLEM LIST Essential Hypertension Cervical Polyp Hyperlipidemia Osteoarthritis of Both Knees Sleep Apnea Obesity, Class Iii, Bmi 40-49.9 (Morbid Obesity) (Hcc) Cervical Myopathy Cervical Spondylosis With Myelopathy PAST MEDICAL HISTORY Diagnosis Date - Cervical polyp - COPD (chronic obstructive pulmonary disease) ([facility]CC) - Hyperlipidemia - Hypertension - Minor depression PAST SURGICAL HISTORY Procedure Laterality Date - REMOVAL ADENOIDS,PRIMARY,<12 Y/O Adenoidectomy - REMOVAL OF TONSILS,<12 Y/O Tonsillectomy FAMILY HISTORY Problem Relation Age of Onset - Cancer Father leukemia - Cancer Mother skin cancer - Cancer Paternal Grandfather stomach cancer - Cancer Paternal Grandmother colon to liver - Cancer Sister cancer in situ - breast - Diabetes Father - Diabetes Sister - Heart Mother tachycardia Social History: Social History Substance Use Topics - Smoking status: Former Smoker - Smokeless tobacco: Never Used Comment: Quit smokig 38 years ago - Alcohol use No No current facility-administered medications on file prior to encounter. Current Outpatient Prescriptions on File Prior to Encounter: amLODIPine (NORVASC) 5 mg tablet Take 1 tablet by mouth once daily. atorvastatin (LIPITOR) 10 mg tablet Take 1 tablet by mouth once daily. cholecalciferol (VITAMIN D-3) 2,000 unit tablet Take 2,000 Units by mouth once daily. cloNIDine HCl (CATAPRES) 0.1 mg tablet Take 1 tablet by mouth daily at bedtime. COMPOUNDED PRESCRIPTION BIPAP 1 liter bleed in 12/5 cm. RR 14Replacement machine with heated humidity. CPAP mask and supplies.Use nightly. diclofenac XR (VOLTAREN-XR) 100 mg Tb24 TAKE 1 TABLET DAILY WITH FOOD gabapentin (NEURONTIN) 100 mg capsule TAKE 2 CAPSULES BY MOUTH TWICE A DAY [id number] D3 ORAL Take 3 tablets by mouth once daily. HYDROcodone-acetaminophen (NORCO) 5-325 mg per tablet Take 1 tablet by mouth at bedtime as needed for up to 30 days.Earliest Fill Date: 08/29/17 HYDROcodone-acetaminophen (NORCO) 5-325 mg per tablet Take 1 tablet by mouth at bedtime as needed for up to 30 days. MULTIVIT WITH IRON-MINERALS (MULTIVITAMIN AND MINERALS ORAL) Take 1 tablet by mouth once daily. predniSONE (DELTASONE) 10 mg tablet Please take 3 pills twice daily for 3 days, then 2 pills twice daily for 3 days, then 1 pill twice daily for 3 days, then 1 pill daily till gone. (Patient not taking: Reported on 01/30/2018 ) sertraline (ZOLOFT) 100 mg tablet Take 1 tablet by mouth once daily. triamterene-hydrochlorothiazide 37.5-25 mg per capsule Take 1 capsule by mouth once daily. Current Facility-Administered Medications: acetaminophen 1,000 mg tab(s) (TYLENOL) 1,000 mg ORAL q 6 H PRN Artem P Paloma acetaminophen 650 mg tab(s) (TYLENOL) 650 mg ORAL q 4 H PRN Mandie (Instrument Adjuster.Scale Reclamation Tender) Jeff amLODIPine 2.5 mg tab(s) (NORVASC) 2.5 mg ORAL DAILY Artem P Paloma atorvastatin 10 mg tab(s) (LIPITOR) 10 mg ORAL DAILY Mandie (Instrument Adjuster.Scale Reclamation Tender) Jeff 10 mg at 01/31/18 1146 cloNIDine HCl 0.1 mg tab(s) (CATAPRES) 0.1 mg ORAL AT BEDTIME Artem P Paloma 0.1 mg at 01/31/18 2100 docusate sodium 100 mg cap(s) (COLACE) 100 mg ORAL BID Mandie (Instrument Adjuster.Scale Reclamation Tender) Jeff gabapentin 200 mg cap(s) (NEURONTIN) 200 mg ORAL BID Artem P Paloma 200 mg at 01/31/18 2100 HYDROcodone 5 mg - acetaminophen 325 mg tablet (NORCO) 1 tablet ORAL HS PRN Artem P Paloma 1 tablet at 01/31/18 2100 lidocaine - VERIFY PATCH OTHER q 8 H Mandie (Instrument Adjuster.Scale Reclamation Tender) Jeff lidocaine 5 % 1 Patch (LIDODERM) 1 Patch TRANSDERMAL DAILY Mandie (Instrument Adjuster.Scale Reclamation Tender) Jeff lidocaine patch - REMOVE OTHER AT BEDTIME Mandie (Instrument Adjuster.Scale Reclamation Tender) Jeff NaCl 0.9% iv infusion 75 mL/hr INTRAVENOUS CONTINUOUS Necarl (Donal) Ashley Last Rate: 75 mL/hr at 02/01/18 0018 75 mL/hr at 02/01/18 0018 sertraline 100 mg tab(s) (ZOLOFT) 100 mg ORAL DAILY (8 PM) Artem P Paloma 100 mg at 01/31/182110 Allergies: ALLERGIES Allergen Reactions - Ativan [Lorazepam] Hives - Neosporin [Benzalko* Rash REVIEW OF SYSTEMS: REVIEW OF SYSTEMS: As stated in Active Problem List/ Past Medical History ANESTHESIOLOGY REVIEW: Airway Assessment: MP 1; Neck ROM: Limited Extension and Parasthesia with Flexion and Extension (bilateral upper and lower extremity numbness); Airway Evaluation: No significant abnormalities Symptoms of Sleep Apnea: IRIS, uses biPAP Intubation History: No previous history of difficult intubation Dentition: Missing tooth several molars ADDITIONAL PHYSICAL EXAM: Lungs: Patient health status unchanged since recent history and physical. See history and physical for exam findings. Cardiac: Patient health status unchanged since recent history and physical. See history and physical for exam findings. Additional Pertinent Findings: N/A ADVERSE ANESTHESIA EVENT: No history of adverse event FAMILY HIISTORY OF ANESTHESIA: No known issues BLOOD PRODUCTS: Will accept Blood/Blood Products OTHER MEDICAL PROBLEMS: pt morbidly obese, pt has a hx of mild aortic stenosis on ECHO from 2014. Primary care dr ordered yearly follow-up, pt noncompliant. Dr Goncalves said it's ok to proceed without follow- up Echo. Pt stopped 2-week trial of prednisone on Monday. I have interviewed and examined the patient. I have reviewed the medical record and/or the pre-anesthesia evaluation, pertinent labs, and test results. Significant changes in the patient's condition since the History and Physical, not otherwise documented in primary service progress notes: No Anesthetic risks, benefits, alternatives, personnel and consent discussed: Yes ANES REVIEW: This contains updated information obtained within 48 hours of Surgery/Procedure. WBC (k/uL) Date Value 02/01/2018 10.21 RBC (m/uL) Date Value 02/01/2018 4.39 Hemoglobin (g/dL) Date Value 02/01/2018 11.6 Hematocrit (%) Date Value 02/01/2018 36.7 MCV (fL) Date Value 02/01/2018 83.6 MCH (pG) Date Value 02/01/2018 26.4 MCHC (g/dL) Date Value 02/01/2018 31.6 RDW-CV (%) Date Value 02/01/2018 13.7 Platelet Count (k/uL) Date Value 02/01/2018 223 MPV (fL) Date Value 02/01/2018 9.5 Glucose (mg/dL) Date Value 02/01/2018 113 (H) BUN (mg/dL) Date Value 02/01/2018 20 Creatinine (mg/dL) Date Value 02/01/2018 0.81 Sodium (mmol/L) Date Value 02/01/2018 138 Potassium (mmol/L) Date Value 02/01/2018 4.2 Chloride (mmol/L) Date Value 02/01/2018 99 CO2 (mmol/L) Date Value 02/01/2018 27 Calcium (mg/dL) Date Value 02/01/2018 9.9 EKG: Procedure Date : Jan 31 2018 18:50:24 Edit Date : Feb 01 2018 09:41:50 Diagnosis:SINUS RHYTHM WITH MARKED SINUS ARRYTHMIA OTHERWISE NORMAL ECG WHEN COMPARED WITH ECG OF 16-FEB-2004 10:32, NO SIGNIFICANT CHANGE WAS FOUND Confirmed by NERISSA CARMICHAEL M.D. ([id number]) on 02/01/2018 9:41:48 AM Ventricular Rate : 69 ?BPM Atrial Rate : 69 ?BPM ECHO: pending CONCLUSIONS: - Technically difficult exam due to body habitus. - Exam indication: Routine surveillance of valve stenosis - The left ventricle is normal in size.Left ventricular systolic function is hyperdynamic. EF = 75 ? 5% (2D biplane) Baseline left ventricular diastolic function is consistent with abnormal relaxation (stage 1). - The right ventricle is normal in size. Right ventricular systolic function is normal. - The left atrial cavity is mildly dilated. (39 cc/m?) - There is mild aortic stenosis (Vmax 2.1 m/s) - Prior echocardiogram performed on 04/09/2012. No significant change. ? ATURE: BARB Chand PATIENT NAME: Sonia Karimi DATE: February 01, 2018 TIME: 10:13 AM PAGER/CONTACT #: Observed: 02/01/2018 Status: F Source: [facility] URINE CULTURE 9:48 AM [facility] OTHER CAMPUS REPOSITORY Sp. Request/Comment: - Specimen received in preservative Culture Result - <10,000 CFU/ml Normal urogenital yanick Performed By: #### URCUL #### [facility] [address], [place] [address] PROGRESS Observed: 02/01/2018 Status: COMPLETED Source: [facility] 8:19 AM CLINIC OTHER CAMPUS REPOSITORY HNO ID: [id number] Author: Artem Dow Service: General Internal Medicine Author Type: Physician Type: Progress Notes Filed: 02/01/2018 6:02 PM Note Text: PROGRESS NOTE - INTERNAL MEDICINE PATIENT NAME: Sonia Karimi ADMITTING PHYSICIAN: Artem Dow SUBJECTIVE INTERVAL HISTORY OF PRESENT ILLNESS: Patient sitting up in bed wanting a shower and something else for neck pain. Currently just has norco at night. Also reports not having a bowel movement since being here but is passing gas. OBJECTIVE PHYSICAL EXAM: BP 131/70 Pulse 64 Temp 36.9 ?C (98.4 ?F) (Oral) Resp 16 Ht 167.6 cm (5' 6) Wt 125.9 kg (277 lb 9 oz) SpO2 99% BMI 44.80 kg/m? Intake/Output Summary (Last 24 hours) at 02/01/18 0819 Last data filed at 02/01/18 0500 Gross per 24 hour Intake 1310 ml Output 250 ml Net 1060 ml GENERAL: Alert, no acute distress, cooperative, obese SKIN: Skin color, texture, turgor normal. No rashes or lesions. NECK: No jugulovenous distention, Supple, decreased ROM LUNGS: Lungs clear to auscultation, Good diaphragmatic excursion CARDIAC: Normal S1 and S2; no rubs, murmurs, or gallops ABDOMEN: Abdomen soft, non-tender, BS normal x4 EXTREMITIES: No LE edema NEURO: AANDOx3, Non-focal sensation intact B?L upper and lower extremities, 5/5 strength upper and lower extremities PULSES: 2+ radial, 2+ carotid DATA: Diagnostic tests reviewed for today's visit: Most recent labs Most recent imaging CBC, Coags, BMP, Mg, Phos Recent Labs 02/01/18 0617 01/31/18 1907 01/30/18 1943 WBC 10.21 -- 14.93* HB 11.6 -- 12.2 HCT 36.7 -- 37.1 PLT 223 -- 259 APTT -- 25.4 -- NA 138 -- 141 K 4.2 -- 3.5* CHLOR 99 -- 101 CO2 27 -- 25 BUN 20 -- 26* CREAT 0.81 -- 0.92 GLUC 113* -- 164* CA 9.9 -- 9.6 Liver Function, Amylase, AND Lipase Cardiac Enzymes Recent Labs 01/30/18 194 CK 102 ASSESSMENT AND PLAN Cervical myopathy [G72.9] - MRI spine: cord compression - Neurosurgery consulted - gabapentin, norco Bladder fullness - check UA for UTI - UA positive for WBC, checking urine culture HTN - c/w amlodipine, maxzide HLD: statin Thyroid mass - noted on MRI - thyroid US: benign nodules Hypokalemia - replete, monitor IRIS - CPAP Obesity DVT prophylaxis - SCDs Surgery was planned today but moved to tomorrow Constipation: added colace Added tylenol and lidocaine patch for pain SIGNATURE: Mandie Aguilar APRN.POWER MULE OPERATOR DATE: February 01, 2018 TIME: 8:19 AM CONTACT #: [phone] I have reviewed the progress note obtained and documented by the Certified Nurse Practitioner, and I personally participated in the rosario components. I have discussed the case and management of the patient's care. The following comments revise or confirm relevant rosario components of the Certified Nurse Practitioner's note. Waiting on being scheduled for OR Artem Dow MD PROGRESS Observed: 02/01/2018 Status: COMPLETED Source: [facility] 8:03 AM [facility] OTHER [facility] REPOSITORY HNO ID: [id number] Author: Latrice Hayes Service: Neurosurgery Author Type: Physician Type: Progress Notes Filed: 02/01/2018 8:04 AM Note Text: AVSS neurologically no changes. Pre op medical clearance Surgery AM 02/02/18 NPO P MN CBC AND DIFFERENTIAL Collected: 02/01/2018 Status: F Source: [facility] 6:17 AM [facility] OTHER [facility] REPOSITORY TYPE CODE TESTS RESULT OUT OF REFERENCE UNITS RANGE LAB WBC 3.70-11.00 k/uL WBC 10.21 LAB RBC 3.90-5.20 m/uL RBC 4.39 LAB HGB 11.5-15.5 g/dL Hemoglobin 11.6 LAB HCT 36.0-46.0 % Hematocrit 36.7 LAB MCV 80.0-100.0 fL MCV 83.6 LAB MCH 26.0-34.0 pG MCH 26.4 LAB MCHC 30.5-36.0 g/dL MCHC 31.6 LAB RDWCV 11.5-15.0 % RDW-CV 13.7 LAB PLTCT 150-400 k/uL Platelet Count 223 LAB MPV 9.0-12.7 fL MPV 9.5 LAB ANEUT % Neut% 73.1 LAB AANEUT 1.45-7.50 k/uL Abs Neut 7.46 LAB ALYMP % Lymph% 17.1 LAB AALYMP 1.00-4.00 k/uL Abs Lymph 1.75 LAB AMONO % Brown% 6.6 LAB AAMONO <0.87 k/uL Abs Brown 0.67 LAB AEOS % Eosin% 2.9 LAB AAEOS <0.46 k/uL Abs Eosin 0.30 LAB ABASO % Baso% 0.3 LAB AABASO <0.11 k/uL Abs Baso 0.03 LAB DTYP DTYPE Auto Diff BASIC METABOLIC PANL Collected: 02/01/2018 Status: F Source: [facility] 6:17 AM [facility] OTHER CAMPUS REPOSITORY TYPE CODE TESTS RESULT OUT OF REFERENCE UNITS RANGE LAB GLU 74-99 mg/dL Glucose High 113 LAB BUN 7-21 mg/dL BUN 20 LAB CRET 0.58-0.96 mg/dL Creatinine 0.81 LAB NA 136-144 mmol/L Sodium 138 LAB K 3.7-5.1 mmol/L Potassium 4.2 LAB CL 97-105 mmol/L Chloride 99 LAB CO2 22-33 mmol/L CO2 27 LAB AGAP 9-18 mmol/L Anion Gap 12 LAB CA 8.6-10.0 mg/dL Calcium, Total 9.9 CONFIRM BLOOD TYPE Collected: 02/01/2018 Status: F Source: [facility] 6:17 AM [facility] OTHER CAMPUS REPOSITORY TYPE CODE TESTS RESULT OUT OF REFERENCE UNITS RANGE LAB %ABR O ABO/RH(D) POSITIVE THERAPY NT Observed: 02/01/2018 Status: COMPLETED Source: [facility] 6:14 AM [facility] OTHER CAMPUS REPOSITORY HNO ID: [id number] Author: Carlos Dudley Service: Physical Therapy Author Type: Physical Therapist Type: Therapy (PT/OT/Speech/Resp) Filed: 02/01/2018 6:15 AM Note Text: PHYSICAL THERAPY MISSED VISIT SERVICE DATE: 02/01/2018 SERVICE TIME: 0613 to 0613 ROOM: [place] [address] Attempted Treatment. Patient not seen due to Surgery. Pt on for surgery this date. WIll hold follow up visit and plan for re-evaluation on 02/02/18 post surgical intervention. SIGNATURE: Carlos Dudley PT PATIENT NAME: Sonia Karimi DATE: February 01, 2018 TIME: 6:14 AM NURSING PROG Observed: 01/31/2018 Status: COMPLETED Source: [facility] 11:45 PM [facility] OTHER [place] REPOSITORY HNO ID: [id number] Author: Gila (Rn) MELODY Gonzalez Service: Nursing Author Type: Registered Nurse Type: Nursing Progress Note Filed: 02/01/2018 3:08 AM Note Text: Nursing Progress Note Patient Name: Sonia Karimi Patient Location: [place] [address]/[facility]466-2 2345-Bedside report received. Bipap on and running 0020-Pt made NPO. IVF started. Pt AANDOX3, denies chest pain, SOB, or dizziness. Pt c/o numbness/tingling to BUE. Hand grasps, pedal push/pulls are strong and equal. Call light in reach, bed alarm on This note was completed by: Gila Gonzalez RN URINALYSIS WITH Collected: 01/31/2018 Status: F Source: [facility] 8:51 PM CLINIC OTHER [place] REPOSITORY TYPE CODE TESTS RESULT OUT OF RANGE REFERENCE UNITS LAB UCOL Yellow Color Abnormal Straw Alert LAB [facility] Clear Clarity Clear LAB UGLUC Negative mg/dL Glucose, Urine Negative LAB UBIL Negative Bilirubin, Urine Negative LAB UKET Negative Ketones, Urine Negative LAB USPG 1.003-1.030 Specific Bowers, Ur 1.010 LAB UHGB Negative Hemoglobin/Blood, Negative Ur LAB UPH 5.0-9.0 pH 6.0 LAB UPROT Negative mg/dL Protein, Urine Negative LAB UUROB Urobilinogen Normal Result Comment: Reference Interval: <2.0 mg/dL LAB UNITR Negative Nitrites Negative LAB ULKEST Negative Abnormal Alert Leukest Large LAB UWBC 0-5 /HPF Abnormal Alert WBC 11-20 LAB URBC 0-3 /HPF RBC 0-3 LAB UCAST 0 /LPF Abnormal Alert Cast SEE COMMENT Result Comment: 1-3 Granular Casts LAB UEPI Occasional /HPF Epithelial Cells SEE COMMENT Result Comment: Occasional Squamous Epithelial Cells LAB UOTHER /HPF SEE Urine, Other COMMENT FOR EAST USE ONLY Result Comment: 1+ Mucous NURSING PROG Observed: 01/31/2018 Status: COMPLETED Source: [facility] 7:22 PM [facility] REPOSITORY HNO ID: [id number] Author: Karime (Rn) MELODY Montiel Service: (none) Author Type: Registered Nurse Type: Nursing Progress Note Filed: 01/31/2018 9:06 PM Note Text: Nursing Progress Note Patient Name: Sonia Karimi Patient Location: [place] [address]/[facility]-466-2 Daily Note: 1924 Assumed care, report from outgoing RN at the bedside. Call light within reach, bed alarm activated. 2104 VS and assessment as charted. AANDOx3, denies chest pain, SO, headache, dizziness. Reports n/t to BUE and BLE. Pain board reviewed/updated, verbalizes understanding. Call light and possessions within reach. Will continue to monitor. This note was completed by: Karime Montiel RN XR CHEST 1V FRONTAL Observed: 01/31/2018 Status: F Source: [facility] 7:15 PM [facility] REPOSITORY * * *Final Report* * * DATE OF EXAM: Jan 31 2018 7:15PM HCX 5290 - XR CHEST 1V FRONTAL / PROCEDURE REASON: Preoperative assessment * * * * Physician Interpretation * * * * RESULT: EXAMINATION: XR CHEST 1V FRONTAL History: Preoperative assessment M: XC2 Comparison: None. RESULT: See Impression. IMPRESSION: 1. Lines, Tubes, and Devices: N/A 2. Lungs and Pleura: The lungs are clear. No pleural effusion or pneumothorax. 3. Cardiomediastinal silhouette: Within normal limits for technique. 4. Other: No acute osseous abnormality. Transcribed Using Voice Recognition Transcribe Date/Time: Jan 31 2018 7:35P Dictated by: KJ ROA MD This examination was interpreted and the report reviewed and electronically signed by: KJ ROA MD on Jan 31 2018 7:36PM EST [id number] TYPE AND SCREEN Collected: 01/31/2018 Status: F Source: [facility] 7:11 PM [facility] OTHER CAMPUS REPOSITORY TYPE CODE TESTS RESULT OUT OF REFERENCE UNITS RANGE LAB %ABR O ABO/RH(D) POSITIVE LAB % Antibody NEG Screen APTT Collected: 01/31/2018 Status: F Source: [facility] 7:07 PM [facility] OTHER CAMPUS REPOSITORY TYPE CODE TESTS RESULT OUT OF RANGE REFERENCE UNITS LAB APTT 23.0-32.4 sec APTT 25.4 Result Comment: Unfractionated Heparin Therapeutic Ranges: Standard Heparin Nomogram: 53 to 78 seconds (anti-Xa level of 0.3 to 0.7 U/ml) Low Dose/ACS Nomogram: 49 to 67 seconds (anti-Xa level of 0.2 to 0.5 U/ml) Stroke Treatment Nomogram: 49 to 67 seconds (anti-Xa level of 0.2 to 0.5 U/ml) Note: The APTT therapeutic range has been determined for the current lot of laboratory APTT reagent in use throughout the [facility]. EKG (AK,AV,EU,FV,HL,PATRICK,MM,SP) Observed: Status: F Source: [facility] 01/31/2018 6:50 PM CLINIC OTHER CAMPUS REPOSITORY NAME : SONIA KARIMI PID : [id number] : 1955 Gender : Female Race : ORD : [id number] Procedure Date : Jan 31 2018 18:50:24 Edit Date : Feb 01 2018 09:41:50 Diagnosis:SINUS RHYTHM WITH MARKED SINUS ARRYTHMIA OTHERWISE NORMAL ECG WHEN COMPARED WITH ECG OF 16-FEB-2004 10:32, NO SIGNIFICANT CHANGE WAS FOUND Confirmed by NERISSA CARMICHAEL M.D. ([id number]) on 02/01/2018 9:41:48 AM Ventricular Rate : 69 BPM Atrial Rate : 69 BPM P-R Interval : 152 ms QRS Duration : 80 ms Q-T Interval : 390 ms QTC Calculation(Bezet) : 417 ms P [employer] : 74 degrees R [employer] [place] : 42 degrees T [employer] : 36 degrees Test Reason : Pre OP Location : 124 : [address] [place] [address] Overread By : NERISSA CARMICHAEL M.D. Edited By : NERISSA CARMICHAEL M.D. Referred By : ARTEM DOW Acquired by : VENU HILLIARD THERAPY NT Observed: 01/31/2018 Status: COMPLETED Source: [facility] 3:14 PM [facility] OTHER CAMPUS REPOSITORY HNO ID: [id number] Author: Tabby (Pt) Julissa Service: Physical Therapy Author Type: Physical Therapist Type: Therapy (PT/OT/Speech/Resp) Filed: 01/31/2018 3:19 PM Note Text: Physical Therapy Evaluation SERVICE DATE: 01/31/2018 SERVICE TIME: 1305 to 1335 ROOM: [place] [address] ([facility]) Recommended Discharge Disposition: Acute Rehab Recommended Discharge Disposition Comments: Rec AR to maximize functional mobility and safety Justification For Post Acute Needs: Anticipate that patient will require daily (5x/wk) skilled therapy in a post-acute facility setting at the time of acute hospital discharge;Anticipate patient will tolerate 3 hours of daily therapy at the time of admission to post-acute setting Recommended Discharge Equipment: No equipment needs anticipated PT Recommendations to Nursing: Ambulate with device;Transfer to/from chair;OOB for Meals;With assist of 2 people Device: Wheeled Walker PT 6 Clicks Score: 19 Precautions/Activity Restrictions: Fall Risk ASSESSMENT : Pt presents with impaired functional mobility, ADL performance, strength and endurance impacting ability to function without assist from staff. Pt's needs exceeds resources available at home to safely return home at this time secondary to balance and physiological response. Requires skilled therapy to address mobility and self care limitations as well as progression of activities within safe limits to prevent falls. Pt is a low complexity evaluation for these reasons. Patient Disposition at Start of Session: Supine in Bed;Call Daniel in Reach Patient Disposition at End of Session: OOB in Chair;Call Daniel in Reach (RN states no need for chair alarm ) Tolerated Full Session Physical Therapy Problem List: Balance Impaired;Functional Mobility Impairment;Decreased Strength;Decreased Range Of Motion;Decreased Activity Tolerance;Impaired Self Care;Safety Deficits;Pain Patient /Caregiver Goals: Go Home Goals for Plan of Care: Able to perform HEP with: Verbal Cues Only Transfer supine to/from sit with: Modified Independent Transfer sit to/from stand with: Modified Independent Ambulate with: Modified Independent Distance: 50 Device: Wheeled Walker Ambulate up and down steps with: Contact Guard Assistance Number of steps: 3 Device: Rail Transfer: All functional transfers with mod I Rehab Potential: Good PLAN: Treatment Frequency (times per week): 7 Treatment Duration (number): (as able LOS) Current admission Treatment Interventions: Education;Self Care / Home Management;Energy Conservation Training;Joint Mobility;Strengthening;Functional Mobility Training;Balance Training;Neuromuscular Re-education Plan of Care developed with: Patient TREATMENT INTERVENTIONS: Therapy Diagnosis: Reduced mobility-other;Decreased activities of daily living (ADL);Muscle Weakness (generalized) Interventions Provided: Evaluation;Therapeutic Activity (37274);Gait Training (02770) $ Evaluation-Low (04991) Billed Units: 1 unit Therapeutic Activity (69932) Treatment Minutes: 13 1 unit Skilled Intervention(s): Instructed patient in supine to sit pushing with upper extremities to sit up Instruction in sit to stand technique with proper hand placement and body positioning at edge of bed/chair Instruction in stand to sit technique with lower extremities touching chair/bed and reaching back for surface Instruction in sit to and from stand technique with proper hand placement and body positioning at edge of bed/chair Gait Training (57451) Treatment Minutes: 10 1 unit Skilled Intervention(s): Instruction in sit to stand technique with proper hand placement and body positioning at edge of bed/chair, Instruction in stand to sit technique with LE's touching chair/bed and reaching back for surface, Instruction in sequencing, gait pattern, Instruction in correction of gait deviations and Instruction in use of equipment, cues for sequence and pattern Pt educated on role of therapy, POC, importance of OOB with assist. Pt in bed on arrival. Supine to sit with supervision. Sitting EOB with no c/o dizziness. Pt with 5/5 strength in LEs. Sit to stand with min A. Verbal cues for hand placement and safety with transfer. Pt ambulated 10 x 2 with wheeled walker and min A. Pt with decreased speed/step length and forward flexed posture. Pt leans heavily on walker and has bilateral knee buckling. Pt with genu varum bilaterally. Pt transferred on/off commode with Min A. Verbal cues for hand placement and safety with transfer. Pt in chair post session. Total Timed Code Treatment Minutes: 23 Total Treatment Time (minutes): 30 FUNCTIONAL G CODE: PT 6 Clicks Score: 19 (01/31/18 1305) Mobility: Walking and Moving Around Current Status (G8978): CK (01/31/18 1305) Mobility: Walking and Moving Around Goal Status (G8979): CJ (01/31/18 1305) Based on clinical assessment and the score on the 6 Clicks Functional Assessment Tool, the G code and corresponding severity modifiers are documented above. SUBJECTIVE: Current Hospital Course: Chart reviewed; CHIEF COMPLAINT: Neck pain HPI: This is a 62 year old female who presents with cervical myopathy. Patient reports neck pain started about 3 weeks ago. She went to see her PCP who gave her prednisone for 2 weeks but there was no improvement. Continued to having numbness in bilateral hands and in both legs at times. She went back to follow up with her doctor who sent her to the hospital for further evaluation. Reports no trauma but has had some falls recently. Uses a cane usually at home but lately has been having trouble due to numbness in her arms.Denies any bowel or bladder changes but does report having bladder fullness. Reason for Physical Therapy Consult : Safety assessment Relevant Past Medical History: cervical myopathy; frequent falls Patient Report: Pt agreeable to PT. Nursing states ok to see pt. 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 OBJECTIVE: CURRENT FUNCTIONAL STATUS: Current Functional Mobility Assist Level Additional Information Rolling Supine to Sit Supervision Sit to Supine (Pt up in chair post session) Scooting Supervision Sit to Stand Minimal Assistance Stand to Sit Minimal Assistance Bed to Chair Minimal Assistance Bed To Chair Transfer Equipment: Wheeled Walker Toilet/Commode Contact Guard Assistance Gait Minimal Assistance Gait Device: Wheeled Walker Gait Distance (feet): 10 x 2 Stairs Curb Step Car Transfer General Gait Deviations: Kamar decreased;Step length decreased;Flexed trunk posture (Increased knee flexion) Balance: Static Sitting;Dynamic Sitting;Static Standing;Dynamic Standing Static Sitting Balance: Independent Dynamic Sitting Balance: Supervision Static Standing Balance: Contact Guard Assistance Dynamic Standing Balance: Minimal Assistance -HLM: 6: Walk 10 steps or more Please see discipline specific clinical documentation flowsheet for complete details for this therapy evaluation/treatment. SIGNATURE: Tabby Costa PT PATIENT NAME: Sonia Karimi DATE: January 31, 2018 TIME: 3:14 PM US THYROID/PARATHYROID Observed: 01/31/2018 Status: F Source: [facility] 2:48 PM CLINIC OTHER CAMPUS REPOSITORY * * *Final Report* * * DATE OF EXAM: Jan 31 2018 2:48PM [facility] 1048 - US THYROID/PARATHYROID / PROCEDURE REASON: Thyroid nodule, incidental on CT/MR/US, no risk factors * * * * Physician Interpretation * * * * RESULT: ULTRASOUND OF THE THYROID 01/31/2018 2:48 PM HISTORY: Thyroid nodule, incidental on CT/MR/US, no risk factors TECHNIQUE: Sonography and Doppler imaging of the thyroid was performed. Images were obtained and stored in a permanent archive. COMPARISON: MRI C-spine 01/30/2018 RESULT: RIGHT LOBE: 8.7 x 3.7 x 3.1 cm; heterogeneous, expected flow LEFT LOBE: 4.6 x 1.6 x 1.5 cm; heterogeneous, expected flow ISTHMUS: 0.7 cm NODULES: Nodule #1 Location: Right lower pole Size: 4.7 x 4.5 x 4.3 cm Characteristics: Composition: Mixed cystic and solid, 1 point Echogenicity: Isoechoic, 1 point Shape: [id number], 0 points Margin: Smooth, 0 points Echogenic foci (Add points for all that apply): None, 0 points Internal vascularity: present TI-RADS Category: 2 ACR Recommendation: No follow-up or FNA is advised. Nodule #2 Location: Right mid Size: 2.9 x 1.7 x 1.5 cm Characteristics: Composition: Cystic or almost completely cystic, 0 points Echogenicity: Anechoic, 0 points Shape: [id number], 0 points Margin: Smooth, 0 points Echogenic foci (Add points for all that apply): None, 0 points Internal vascularity: absent TI-RADS Category: 1, benign ACR Recommendation: No follow-up or FNA is advised. Nodule #3 Location: Mid isthmus Size: 1.5 x 1.2 x 1.0 cm Characteristics: Composition: Solid or almost completely solid, 2 points Echogenicity: Hypoechoic, 2 points Shape: [id number]-mukx, 0 points Margin: Smooth, 0 points Echogenic foci (Add points for all that apply): None, 0 points Internal vascularity: present TI-RADS Category: 4 ACR Recommendation: Follow up imaging in 1, 2, 3 and 5 years is advised. Nodule #4 Location: Left upper pole Size: 0.6 x 0.5 x 0.4 cm Characteristics: Composition: Solid or almost completely solid, 2 points Echogenicity: Hypoechoic, 2 points Shape: Ocryf-uhhw-zdmi, 0 points Margin: Smooth, 0 points Echogenic foci (Add points for all that apply): None, 0 points Internal vascularity: present TI-RADS Category: 4 ACR Recommendation: No FNA or follow-up imaging is advised. Nodule #5 Location: Left lower pole Size: 0.5 x 0.5 x 0.5 cm Characteristics: Composition: Solid or almost completely solid, 2 points Echogenicity: Hypoechoic, 2 points Shape: Ospak-jack-ocai, 0 points Margin: Ill-defined. 0 points Echogenic foci (Add points for all that apply): Punctate echogenic foci, 3 points Internal vascularity: present TI-RADS Category: 5 ACR Recommendation: Follow up imaging is advised annually for 5 years. - - IMPRESSION: THYROID NODULES PRESENT. ACR TI-RADS LEVEL AND RECOMMENDATIONS DETAILED IN BODY OF REPORT. Transcribed Using Voice Recognition Transcribe Date/Time: Jan 31 2018 2:58P Dictated by: JOSSELYN BUENO MD This examination was interpreted and the report reviewed and electronically signed by: JOSSELYN BUENO MD on Jan 31 2018 3:08PM EST [id number] THERAPY NT Observed: 01/31/2018 Status: COMPLETED Source: [facility] 2:34 PM [facility] OTHER CAMPUS REPOSITORY HNO ID: [id number] Author: Wayne Rivas Service: Occupational Therapy Author Type: Occupational Therapist Type: Therapy (PT/OT/Speech/Resp) Filed: 01/31/2018 2:46 PM Note Text: Occupational Therapy Evaluation SERVICE DATE: 01/31/2018 SERVICE TIME: 1305 to 1335 ROOM: [place] [address] ( ULTRASOUND) Recommended Discharge Disposition: Acute Rehab Recommended Discharge Disposition Comments: for safe AND IND functioning Justification For Post Acute Needs: Anticipate patient will tolerate 3 hours of daily therapy at the time of admission to post-acute setting;Cognition intact;Living the community premorbidly;Medically complex;Motivated;Willing to participate OT Recommendations to Nursing: ADL?s in chair;To Bathroom for ADL?s /and or Toileting;OOB for meals;With assist of 1 person OT 6 Clicks Score: 14 Precautions/Activity Restrictions: Fall Risk ASSESSMENT: Patient presents with Cervical myopathy. Requires skilled OT to maximize ADL completion and functional mobility. Patient Disposition at Start of Session: Supine in Bed;Call Daniel in Reach Patient Disposition at End of Session: OOB in Chair;Call Daniel in Reach Tolerated Full Session Occupational Therapy Problem List: Safety Deficits;Impaired Self Care;Decreased Activity Tolerance;Functional Mobility Impairment Patient /Caregiver Goals: Go To Rehab Goals for Plan of Care: Upper Body Dressing with: Set Up Lower Body Dressing with: Minimal Assistance Chair Transfer with: Supervision Toilet Transfer with: Supervision Tolerate (minutes of functional activity): 30 Functional Activity with: Supervision Rehab Potential: Good PLAN: Treatment Frequency (times per week): 4 Current admission Treatment Interventions: Education;Self Care / Home Management;Energy Conservation Training;Functional Mobility Training;Neuromuscular Re-education Plan of Care developed with: Patient TREATMENT INTERVENTIONS: Therapy Diagnosis: Reduced mobility-other;Decreased activities of daily living (ADL);General symptoms and signs-other Interventions Provided: Evaluation;Self Snf Management (15766) $ Evaluation-Low (33583) Billed Units: 1 unit OT Evaluation Low Complexity: Occupational Profile - Brief review of patient's medical record completed (please see current hospital course of evaluation). Occupational Performance - Pt presents with deficits in feeding, grooming, UE bathing/dressing, LE bathing/dressing, functional transfers, functional mobility, chair transfer, toilet transfer Complexity in Clinical Decision Making - The extent of clinical reasoning was low, number of treatment options limited, no need for modifications during the evaluation process, no comorbidities present to affect patient's occupational performance. Self Snf Management (86662) Treatment Minutes: 25 2 units Skilled Intervention(s): pt seen BS this pm. co-treat with PT; Educated pt on proper body mechanics to increase ease and safety with functional task completion; Supine to sit with elevated HOB CGA; Sit to stand CGA with RW- pt has bad knees; Toilet transfer CGA with grab bar; Supervised hygiene; cues for correct hand placement while standing at sink; Pt ambulated with RW to sit up in chair--CGA for transfer to chair; Pt instructed in the importance of being out of bed with staff assist, benefits of sitting up in chair for meals ,as able; pt educated on role of OT in acute care environment, POC, and discharge planning. Mod A for self care task completion secondary to weakness/numbness; Pt reports possible pending cervical surgery this week; appears below functional baseline; Recommend Acute rehab to maximize IND functioning; Will continue; Pt with poor tolerance to multiple sessions of therapy this date and has requested to be seen as a co-treatment by two skilled therapists to address functional mobility progression, functional task modification, and activity modification for patient and therapist safety in order to maximize benefits of service to the patient. Total Timed Code Treatment Minutes: 25 Total Treatment Time (minutes): 30 FUNCTIONAL G CODE: OT 6 Clicks Score: 14 (01/31/18 1305) Self Care Current Status (G8987): CK (01/31/18 1305) Self Care Goal Status (G8988): CJ (01/31/18 1305) Based on clinical assessment and the score on the 6 Clicks Functional Assessment Tool, the G code and corresponding severity modifiers are documented above. SUBJECTIVE: Current Hospital Course: Chart reviewed;Reviewed history - fall 3 weeks ago and hit face, then seen here 01/16. Xray with flexion extension views did show translation with flex/ext. CT scan 01/29 in ER showed no fracture, + stenosis 2) Concern for significant and relatively rapid neuro decline. Patient needs MRI and neurosurgery opinion within next 24-48 hours - lengthy discussion with patient and niece. Recommended [facility] or [facility]. 3) Spoke with Dr Kim Neurosurgery, recommend MRI cervical spine without. Discussed with Dr Dow for direct admission - trying to arrange - if unable patient will go to ER. 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 OBJECTIVE: Cognition/Communication Deficits Responsiveness: Alert;Awake Follows Commands: 3-step Commands CURRENT FUNCTIONAL STATUS: Current Activities of Daily Living Assist Level Feeding Moderate Assistance Grooming Moderate Assistance Bathing Upper Body Moderate Assistance Bathing Lower Body Moderate Assistance Dressing Upper Body Moderate Assistance Dressing Lower Body Moderate Assistance Toileting Supervision Instrumental Activities of Daily Living Assist Level Meal/Beverage Prep Light Cleaning Laundry Medication Management with Strategies Functional Mobility Assist Level Rolling Supine to Sit Supervision Sit to Supine Scooting Sit to Stand Minimal Assistance Stand to Sit Minimal Assistance Bed to Chair Toilet/Commode Contact Guard Assistance Functional Mobility Minimal Assistance Wheeled Walker Balance: Static Sitting;Dynamic Sitting;Static Standing;Dynamic Standing Static Sitting Balance: Supervision Dynamic Sitting Balance: Supervision Static Standing Balance: Contact Guard Assistance Dynamic Standing Balance: Minimal Assistance Activity Tolerance: Standing Activity Standing Activity: amb to BR Standing Activity Tolerance (in minutes): 3 Please see discipline specific clinical documentation flowsheet for complete details for this therapy evaluation/treatment. SIGNATURE: LILY Cardona/L PATIENT NAME: Sonia Karimi DATE: January 31, 2018 TIME: 2:34 PM THERAPY NT Observed: 01/31/2018 Status: COMPLETED Source: [facility] 12:47 PM [facility] REPOSITORY HNO ID: [id number] Author: Tabby RubioPtRonda Costa Service: Physical Therapy Author Type: Physical Therapist Type: Therapy (PT/OT/Speech/Resp) Filed: 01/31/2018 12:47 PM Note Text: PHYSICAL THERAPY MISSED VISIT SERVICE DATE: 01/31/2018 SERVICE TIME: 0715 to 0715 ROOM: [place] [address] Attempted Evaluation. Patient not seen due to Incomplete Orders. Neurosurgery consult pending. Will re-attempt as able. SIGNATURE: Tabby Costa PT PATIENT NAME: Sonia Karimi DATE: January 31, 2018 TIME: 12:47 PM NURSING PROG Observed: 01/31/2018 Status: COMPLETED Source: [facility] 12:00 PM [facility] OTHER [place] REPOSITORY HNO ID: [id number] Author: Ainsley RubioRnRonda Mix RN Service: (none) Author Type: Registered Nurse Type: Nursing Progress Note Filed: 01/31/2018 1:52 PM Note Text: Nursing Progress Note Patient Name: Sonia Karimi Patient Location: [place] [address]2 Daily Note: 1115- Received report at this time, denies needs, will monitor. 1135- Gave ordered atorvastatin, patient alert and oriented, numbness and tingling in bilateral upper extremities. Stating neck pain, patient takes 600mg ibuprofen 3x daily, will page Dr Dow to notify and receive pain medication orders. 1200- Paged Dr Dow at this time: Sonia Karimi -2 Patient having neck pain, patient takes 600 ibuprofen 3x day. PT requesting. Thanks, Ainsley [phone]- Paged Dr Dow to make aware of pharmacists concerns for ordered ibuprofen as well as Voltaren: Sonia Karimi 466-2 Pharmacy will not verify ibuprofen because patient takes voltaren 50mg twice daily for her knees. Both are NSAIDS. Patient is okay with taking Tylenol instead. Thanks, Ainsley [phone]- Paged Dr Dow at this time per patient request: Sonia Karimi [phone] Patient going down to ultrasound of thyroid, patient does not have any idea why she needs an ultrasound of her thyroid. Able to come talk to patient about MRI results. 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 No Advance Directive: Current Advance Directive: Health Care Power of Splitting Machine Feeder;Living Will In Chart: No Center Maker Hand Attempted to Assist with AD Completion: Yes Action: Patient Unwilling Health Literacy: 1. How often do you need to have someone help you when you read instructions, pamphlets, or other written material from your doctor or pharmacy? Never - 1 2. How confident are you filling out medical forms by yourself? Extremely - 1 If Patient scores > 3 on either question, the following interventions were put into place: Patient did not score > 3 FUNCTIONAL AND COGNITIVE/BEHAVIORAL PRIOR TO ADMISSION: Baseline Mental Status: Alert AND Oriented, Person, Place , Time and Situation Functional Status: Independent Does Patient Currently Receive Any Community Services or Home Care? None Equipment Prior to Admission: Cane - Straight Walker Has the Patient Been in a Residential Facility in the Past 30 days? No SOCIAL: Living Arrangement: Home Lives With: sumaya Financial Resources: N/A Primary Contact: Extended Emergency Contact Information Primary Emergency Contact: Yuval Alfaro Mobile Relation: Sister Supportive: Yes Other Important Patient Contacts: None Caregiver Assessment: Caregiver is ready, willing and able to meet the patient's needs as recommended by the inter-professional team? to be determined Patient's transition needs and plan for meeting these needs: await physician treatment plan and therapy evaluations Does the patient have an acute stroke diagnosis, or has the patient had a stroke during this admission? No Medication Adherence: I am convinced of the importance of my prescription medication: Agree completely - 0 I worry that my prescription medication will do more harm than good to me Disagree completely - 0 I feel financially burdened by my [id number] expenses for my prescription medication: Disagree completely - 0 Patient is categorized as low risk < 2 Are you interested in bedside delivery of your medications? No Food Concerns: In the Last Month, Have You had Trouble Getting Food? No trouble getting food During the Last Month, Have You Worried Whether Your Food Would Run Out Before You Had Enough Money to Buy More? No Is the Patient Psychosocially Complex? No ASSESSMENT AND PLAN: Medical Needs: 2 or more chronic diseases and Fall risk or frequent falls Psychosocial Needs: None FREEDOM OF CHOICE EXPLAINED: N/A at this time POTENTIAL TRANSITION PLANS Home Home OT/PT Rehab Facility Met with patient at bedside. She has noticed increase weakness in her hands and had been on prednisone. She saw no improvement and physician sent to [facility] for further testing. Await treatment plan and therapy evaluations. Will follow. SIGNATURE: Ivana Ward RN PATIENT NAME: Sonia Karimi DATE: January 31, 2018 TIME: 11:43 AM PAGER/CONTACT #: [phone] CASE MANAGEM Observed: 01/31/2018 Status: COMPLETED Source: [facility] 11:21 AM [facility] REPOSITORY HNO ID: [id number] Author: Richard Huddleston Service: Case Management Author Type: Physician Type: Care Mgt Progress Note Filed: 01/31/2018 11:25 AM Note Text: Case Management: Chart reviewed. 62 year old female who presented with concern for cervical myopathy. Failed Outpatient management Falls. Needs a cane for routine ambulation but difficulties with use secondary to arm numbness. Morbid obesity with a BMI of 44.80 and a weight of 277. MRI yesterday has an incidental finding of a large thyroid mass measuring 5.8 cm. Agree with Inpatient Status. Richard Huddleston MD Utilization Review Committee HISTORY PHYSICAL Observed: 01/31/2018 Status: COMPLETED Source: [facility] 8:34 AM [facility] OTHER CAMPUS REPOSITORY HNO ID: [id number] Author: Artem Dow Service: General Internal Medicine Author Type: Physician Type: HANDP Filed: 01/31/2018 5:50 PM Note Text: HISTORY AND PHYSICAL EXAMINATION PATIENT NAME: Sonia Karimi SERVICE DATE: 01/31/2018 SERVICE TIME: 8:34 AM PRIMARY CARE PHYSICIAN: Gisela Gar DO SUBJECTIVE CHIEF COMPLAINT: Neck pain HPI: This is a 62 year old female who presents with cervical myopathy. Patient reports neck pain started about 3 weeks ago. She went to see her PCP who gave her prednisone for 2 weeks but there was no improvement. Continued to having numbness in bilateral hands and in both legs at times. She went back to follow up with her doctor who sent her to the hospital for further evaluation. Reports no trauma but has had some falls recently. Uses a cane usually at home but lately has been having trouble due to numbness in her arms.Denies any bowel or bladder changes but does report having bladder fullness. PAST MEDICAL HISTORY: PAST MEDICAL HISTORY Diagnosis Date - Cervical polyp - COPD (chronic obstructive pulmonary disease) (HCC) - Hyperlipidemia - Hypertension - Minor depression PAST SURGICAL HISTORY: PAST SURGICAL HISTORY Procedure Laterality Date - REMOVAL ADENOIDS,PRIMARY,<12 Y/O Adenoidectomy - REMOVAL OF TONSILS,<12 Y/O Tonsillectomy FAMILY HISTORY: FAMILY HISTORY Problem Relation Age of Onset - Cancer Father leukemia - Cancer Mother skin cancer - Cancer Paternal Grandfather stomach cancer - Cancer Paternal Grandmother colon to liver - Cancer Sister cancer in situ - breast - Diabetes Father - Diabetes Sister - Heart Mother tachycardia SOCIAL HISTORY: Social History Substance Use Topics - Smoking status: Former Smoker - Smokeless tobacco: Never Used Comment: Quit smokig 38 years ago - Alcohol use No MEDICATIONS: Prior to Admission Medications Prescriptions Prior to Admission: amLODIPine (NORVASC) 5 mg tablet Take 1 tablet by mouth once daily. Disp: 90 tablet Rfl: 3 Taking atorvastatin (LIPITOR) 10 mg tablet Take 1 tablet by mouth once daily. Disp: 90 tablet Rfl: 3 Taking cholecalciferol (VITAMIN D-3) 2,000 unit tablet Take 2,000 Units by mouth once daily. Disp: Rfl: Taking cloNIDine HCl (CATAPRES) 0.1 mg tablet Take 1 tablet by mouth daily at bedtime. Disp: 90 tablet Rfl: 3 Taking COMPOUNDED PRESCRIPTION BIPAP 1 liter bleed in 12/5 cm. RR 14Replacement machine with heated humidity. CPAP mask and supplies.Use nightly. Disp: 1 Each Rfl: 0 Taking diclofenac XR (VOLTAREN-XR) 100 mg Tb24 TAKE 1 TABLET DAILY WITH FOOD Disp: 90 tablet Rfl: 3 Taking gabapentin (NEURONTIN) 100 mg capsule TAKE 2 CAPSULES BY MOUTH TWICE A DAY Disp: 120 capsule Rfl: 3 Taking YBZVJRUJ-TZX-NRSHCSMRA-VIT D3 ORAL Take 3 tablets by mouth once daily. Disp: Rfl: Taking HYDROcodone-acetaminophen (NORCO) 5-325 mg per tablet Take 1 tablet by mouth at bedtime as needed for up to 30 days.Earliest Fill Date: 08/29/17 Disp: 30 tablet Rfl: 0 Taking HYDROcodone-acetaminophen (NORCO) 5-325 mg per tablet Take 1 tablet by mouth at bedtime as needed for up to 30 days. Disp: 30 tablet Rfl: 0 Taking MULTIVIT WITH IRON-MINERALS (MULTIVITAMIN AND MINERALS ORAL) Take 1 tablet by mouth once daily. Disp: Rfl: Taking predniSONE (DELTASONE) 10 mg tablet Please take 3 pills twice daily for 3 days, then 2 pills twice daily for 3 days, then 1 pill twice daily for 3 days, then 1 pill daily till gone. (Patient not taking: Reported on 01/30/2018 ) Disp: 40 tablet Rfl: 0 Not Taking sertraline (ZOLOFT) 100 mg tablet Take 1 tablet by mouth once daily. Disp: 90 tablet Rfl: 3 Taking triamterene-hydrochlorothiazide 37.5-25 mg per capsule Take 1 capsule by mouth once daily. Disp: 90 capsule Rfl: 3 Taking CURRENT ALLERGIES: ALLERGIES Allergen Reactions - Ativan [Lorazepam] Hives - Neosporin [Benzalko* Rash COMPLETE REVIEW OF SYSTEMS: GENERAL: No weight loss, malaise or fevers/chills HEENT: No recent colds/congestion RESPIRATORY: Negative for cough, wheezing or shortness of breath CARDIOVASCULAR: Negative for chest pain, palpitations, or leg swelling GI: No nausea, vomiting, or diarrhea. No abdominal pain or constipation : No dysuria, frequency or incontinence MUSCULOSKELETAL: Negative for joint pain or swelling, back pain or muscle pain SKIN: Negative for lesions, rash, and itching NEURO: No headaches, dizziness, + numbness or tingling All other reviewed and negative other than HPI. OBJECTIVE PHYSICAL EXAM: Patient Vitals for the past 24 hrs: BP Temp Temp src Pulse Resp SpO2 Height Weight 01/31/18 0800 (!) 108/48 36.6 ?C (97.9 ?F) Oral 63 18 95 % - - 01/31/18 0013 116/60 36.9 ?C (98.5 ?F) Oral 79 18 94 % - - 01/30/182001 107/50 36.5 ?C (97.7 ?F) Oral 79 18 97 % - - 01/30/18 1832 150/70 36.6 ?C (97.8 ?F) Oral 90 20 98 % - - 01/30/181831 - - - - - - 167.6 cm (5' 6) 125.9 kg (277 lb 9 oz) Body mass index is 44.8 kg/m?. BP (!) 108/48 Pulse 63 Temp 36.6 ?C (97.9 ?F) (Oral) Resp 18 Ht 167.6 cm (5' 6) Wt 125.9 kg (277 lb 9 oz) SpO2 95% BMI 44.80 kg/m? GENERAL: Alert, no acute distress, cooperative SKIN: Skin color, texture, turgor normal. No rashes or lesions. NECK: No jugulovenous distention, Supple, decreased ROM LUNGS: Lungs clear to auscultation, Good diaphragmatic excursion CARDIAC: Normal S1 and S2; no rubs, murmurs, or gallops ABDOMEN: Abdomen soft, non-tender, BS normal x4 EXTREMITIES: No LE edema NEURO: AANDOx3, Non-focal sensation intact B?L upper and lower extremities, 5/5 strength upper and lower extremities PULSES: 2+ radial, 2+ carotid DATA: Diagnostic tests reviewed for today's visit: Most recent labs Most recent imaging CBC, Coags, BMP, Mg, Phos Recent Labs 01/30/181942 WBC 14.93* HB 12.2 HCT 37.1 PLT 259 NA 141 K 3.5* CHLOR 101 CO2 25 BUN 26* CREAT 0.92 GLUC 164* CA 9.6 Liver Function, Amylase, AND Lipase Cardiac Enzymes Recent Labs 01/30/181942 CK 102 ASSESSMENT AND PLAN Cervical myopathy [G72.9] - MRI spine: cord compression - Neurosurgery consulted - gabapentin, norco Bladder fullness - check UA for UTI HTN - c/w amlodipine, maxzide HLD: statin Thyroid mass - noted on MRI - thyroid US Hypokalemia - replete, monitor IRIS - CPAP Obesity DVT prophylaxis - SCDs SIGNATURE: Mandie Aguilar APRN.POWER MULE OPERATOR DATE: January 31, 2018 TIME: 8:34 AM Patient seen, examined and details of HAND P reviewed. I personally have examined the patient and reviewed the Assessment and Plan with our team as detailed above. Changes made to Plan of Care as recorded. 62 yr w rapidly worsening UE weakness, neck pain, admitted after out-pt w [facility], raising concern for urgent Neurosurgeon eval. No h/o trauma. Pt reports UE numbness, which initially got better w a Pred burst. Now hard for her to raise her arms. Reports no LE weakness. M Obese uses CPAP for IRIS UE 3/5 ericka, DTRs suppresed. CTA S1S2 Soft abdo WBC 14.9, but was on Pred Urgent MRI Cx SP was done noted NSurg eval on going this am CPAP form home Artem Dow M.D. CONSULT Observed: 01/31/2018 Status: COMPLETED Source: [facility] 8:06 AM CLINIC OTHER CAMPUS REPOSITORY HNO ID: [id number] Author: Latrice Hayes Service: Neurosurgery Author Type: Physician Type: Consults Filed: 01/31/2018 1:06 PM Note Text: CONSULT: Neurosurgery SERVICE SERVICE DATE: 01/31/2018 SERVICE TIME: 744 REASON FOR CONSULT: cervical myopathy REQUESTING PHYSICIAN: [place] PRIMARY CARE PHYSICIAN: Gisela Gar, Subjective Ms. Karimi is a 62 year old female who presents for cervical myopathy. Patient states that symptoms started about 3 weeks ago with no antecedent trauma or activity. Since then she has had some falls. Pain is in the neck and will radiate at times down bilateral UEs to the fingers. She complains of numbness in all extremities UE>LEs. No change in bowel and bladder. She is right handed and has difficulty with fine motor tasks. She was using a cane but is now having difficulty with that due to the difficulty with fine motor tasks. FUNCTIONAL STATUS: Partially dependent PAST MEDICAL HISTORY Diagnosis Date - Cervical polyp - COPD (chronic obstructive pulmonary disease) (HCC) - Hyperlipidemia - Hypertension - Minor depression PAST SURGICAL HISTORY Procedure Laterality Date - REMOVAL ADENOIDS,PRIMARY,<12 Y/O Adenoidectomy - REMOVAL OF TONSILS,<12 Y/O Tonsillectomy FAMILY HISTORY Problem Relation Age of Onset - Cancer Father leukemia - Cancer Mother skin cancer - Cancer Paternal Grandfather stomach cancer - Cancer Paternal Grandmother colon to liver - Cancer Sister cancer in situ - breast - Diabetes Father - Diabetes Sister - Heart Mother tachycardia Social History Substance Use Topics - Smoking status: Former Smoker - Smokeless tobacco: Never Used Comment: Quit smokig 38 years ago - Alcohol use No Prescriptions Prior to Admission: amLODIPine (NORVASC) 5 mg tablet Take 1 tablet by mouth once daily. Disp: 90 tablet Rfl: 3 Taking atorvastatin (LIPITOR) 10 mg tablet Take 1 tablet by mouth once daily. Disp: 90 tablet Rfl: 3 Taking cholecalciferol (VITAMIN D-3) 2,000 unit tablet Take 2,000 Units by mouth once daily. Disp: Rfl: Taking cloNIDine HCl (CATAPRES) 0.1 mg tablet Take 1 tablet by mouth daily at bedtime. Disp: 90 tablet Rfl: 3 Taking COMPOUNDED PRESCRIPTION BIPAP 1 liter bleed in 12/5 cm. RR 14Replacement machine with heated humidity. CPAP mask and supplies.Use nightly. Disp: 1 Each Rfl: 0 Taking diclofenac XR (VOLTAREN-XR) 100 mg Tb24 TAKE 1 TABLET DAILY WITH FOOD Disp: 90 tablet Rfl: 3 Taking gabapentin (NEURONTIN) 100 mg capsule TAKE 2 CAPSULES BY MOUTH TWICE A DAY Disp: 120 capsule Rfl: 3 Taking [id number]-VIT D3 ORAL Take 3 tablets by mouth once daily. Disp: Rfl: Taking HYDROcodone-acetaminophen (NORCO) 5-325 mg per tablet Take 1 tablet by mouth at bedtime as needed for up to 30 days.Earliest Fill Date: 08/29/17 Disp: 30 tablet Rfl: 0 Taking HYDROcodone-acetaminophen (NORCO) 5-325 mg per tablet Take 1 tablet by mouth at bedtime as needed for up to 30 days. Disp: 30 tablet Rfl: 0 Taking MULTIVIT WITH IRON-MINERALS (MULTIVITAMIN AND MINERALS ORAL) Take 1 tablet by mouth once daily. Disp: Rfl: Taking predniSONE (DELTASONE) 10 mg tablet Please take 3 pills twice daily for 3 days, then 2 pills twice daily for 3 days, then 1 pill twice daily for 3 days, then 1 pill daily till gone. (Patient not taking: Reported on 01/30/2018 ) Disp: 40 tablet Rfl: 0 Not Taking sertraline (ZOLOFT) 100 mg tablet Take 1 tablet by mouth once daily. Disp: 90 tablet Rfl: 3 Taking triamterene-hydrochlorothiazide 37.5-25 mg per capsule Take 1 capsule by mouth once daily. Disp: 90 capsule Rfl: 3 Taking Current hospital medications: amLODIPine 5 mg tab(s) (NORVASC) 5 mg ORAL DAILY cloNIDine HCl 0.1 mg tab(s) (CATAPRES) 0.1 mg ORAL AT BEDTIME diclofenac (EC) 50 mg tab(s) (VOLTAREN) 50 mg ORAL BID gabapentin 200 mg cap(s) (NEURONTIN) 200 mg ORAL BID HYDROcodone 5 mg - acetaminophen 325 mg tablet (NORCO) 1 tablet ORAL HS PRN potassium chloride ER 20 mEq tab(s) (K-DUR, KLOR-CON) 20 mEq ORAL ONCE sertraline 100 mg tab(s) (ZOLOFT) 100 mg ORAL DAILY triamterene-hydrochlorothiazide 37.5-25 mg 1 tablet (MAXZIDE- 25) 1 tablet ORAL DAILY Allergies As of Date: 01/30/2018 Allergen Noted Reaction ATIVAN [LORAZEPAM] 03/26/2012 Hives NEOSPORIN [BENZALKONIUM CHLORIDE] 03/26/2012 Rash Fully Assessed 01/30/2018 COMPLETE REVIEW OF SYSTEMS: PAIN ASSESSMENT: Negative for pain, history of chronic pain, or current treatment for a chronic pain condition. GENERAL: No weight loss, malaise or fevers HEENT: Negative for frequent or significant headaches, No changes in hearing or vision, no nose bleeds or other nasal problems NECK: Negative for lumps, goiter, pain and significant neck swelling RESPIRATORY: Negative for cough, hemoptysis, wheezing, COPD, dyspnea or shortness of breath CARDIOVASCULAR: Negative for chest pain, leg swelling, hypertension, CHF or palpitations GI: No nausea, vomiting, or diarrhea : No history of dysuria, frequency or incontinence MUSCULOSKELETAL: see HPI SKIN: Negative for lesions, rash, and itching PSYCH: Negative for sleep disturbance, mood disorder and recent psychosocial stressors HEMATOLOGY/LYMPHOLOGY: Negative for prolonged bleeding, bruising easily or swollen nodes ENDOCRINE: Negative for cold or heat intolerance, polyuria, polydipsia and goiter NEURO: No history of headaches, syncope, paralysis, seizures or tremors Objective PHYSICAL EXAM: Physical Exam Performed: GENERAL: Alert, no distress, cooperative NEURO: motor: 5/5 BLEs, 5/5 BUEs with the exception of right biceps 4+/5, left biceps 4-4+/5 and left intrinsics 3/5 Sensation: intact to LT in BUE/BLEs Positive ruiz's bilateral, sustained Clonus bilaterally. BP 116/60 Pulse 79 Temp (Src) 98.5 (Oral) Resp 18 Ht 5' 6 (1.68m) Wt 277 lb 9 oz (125.9kg) SpO2 94% BMI 44.82 kg/(m2). DATA: Diagnostic tests reviewed for today's visit: Most recent imaging: radiologist report: Cervical spondylosis as described worst at C3-C4 with mild cord compression. ?Abnormal cord signal at this level which may indicate edema or myelomalacia. Impression/Recommendations Active Problems: Cervical myopathy POA: Yes No acute neurosurgery intervention Further pending Dr. Kim's review. 62 yo female with progressive cervical myelopathy over last 2 weeks, unable to use arms/hands. Deltoid 2/5, left biceps tricep 2/5, right biceps triceps 3/5, hand intrinsics 2/5. 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 Will rec ACDF C3-4. I discussed risks including bleeding, infection, CSF leak, paralyzes, oesophagus injury, carotid a injury, trouble swallowing, permanent feeding tube, stroke, SC, DVT. Patient will require pre op clearance. Latrice Hayes MD SIGNATURE: JADE Hercules PATIENT NAME: Sonia Karimi DATE: January 31, 2018 TIME: 8:06 AM PAGER: NURSING PROG Observed: 01/31/2018 Status: COMPLETED Source: [facility] 7:51 AM CLINIC OTHER CAMPUS REPOSITORY HNO ID: [id number] Author: Lola (Rn) MELODY Vaughan Service: (none) Author Type: Registered Nurse Type: Nursing Progress Note Filed: 01/31/2018 7:59 AM Note Text: Nursing Progress Note Patient Name: Sonia Karimi Patient Location: [facility]-466-2 Daily Note: Assumed care of pt, AANDOx3, c/o numbness/tingling to bilateral arms. Assessment as charted This note was completed by: Lola Vaughan RN NURSING PROG Observed: 01/30/2018 Status: COMPLETED Source: [facility] 10:25 PM [facility] REPOSITORY HNO ID: [id number] Author: Gisela RubioRn) MELODY Mixon Service: Nursing Author Type: Registered Nurse Type: Nursing Progress Note Filed: 01/30/2018 10:27 PM Note Text: Nursing Progress Note Patient Name: Sonia Karimi Patient Location: [facility] Daily Note: 1900: Assumed care of this pt, report received from RN. Oma3, I/S at bedside, SCDs on bilaterally. Pain board reviewed with pt. Denies further needs at this time, call light in place, bed in lowest position, will continue to monitor. 1999: Pt resting quietly in bed. Vitals and assessment complete, see flowsheets. Pt tolerated well. Medication administered per eMAR. Denies further needs at this time, safety maintained. 2009: Pt left unit in stable condition for MRI 2114: Spoke with Dr. Dow regarding results of MRI, will make Dr. Kim aware as well. 2119: Dr Kim made aware of MRI results 2129: Pt returned to unit, bed alarm on, call daniel within reach 0000: Pt resting quietly in bed, eyes closed. Respirations even and unlabored. Call light within reach, will continue to monitor. 0400: Pt resting quietly in bed, eyes closed. Respirations even and unlabored. Call light within reach, will continue to monitor. This note was completed by: Gisela Mixon RN NURSING PROG Observed: 01/30/2018 Status: COMPLETED Source: [facility] 10:17 PM [facility] REPOSITORY HNO ID: [id number] Author: Danyelle RubioRn) MELODY Choi Service: Nursing Author Type: Registered Nurse Type: Nursing Progress Note Filed: 01/30/2018 10:17 PM Note Text: Nursing Progress Note Patient Name: Sonia Karimi Patient Location: [facility] Daily Note:2218 New IV placed on first attempt following sterile technique, tolerated well, MELODY Higgins notified. This note was completed by: Danyelle Choi RN MRI CERVICAL SPINE WO Observed: 01/30/2018 Status: F Source: [facility] IVCON 8:47 PM CLINIC OTHER CAMPUS REPOSITORY * * *Final Report* * * DATE OF EXAM: Jan 30 2018 8:47PM HCM 0297 - MRI CERVICAL SPINE WO IVCON / PROCEDURE REASON: Numbness or tingling, paresthesia * * * * Physician Interpretation * * * * RESULT: EXAMINATION: MRI CERVICAL SPINE WO IVCON CLINICAL HISTORY: Numbness or tingling, paresthesia TECHNIQUE: Routine cervical spine MR protocol without gadolinium. MQ: [id number] COMPARISON: Cervical spine radiographs 01/20/18 RESULT: Examination is marred due to motion. Counting reference: Craniocervical junction. Anatomic Variants: None. Alignment: Grade 1 degenerative anterolisthesis of C3 on C4. Straightening of the normal cervical lordosis, likely degenerative. Alignment is otherwise anatomic. Craniocervical junction: Craniocervical junction is normal. Cord: There is mild cord compression at C3-C4 with abnormal cord signal, which may be due to edema versus myelomalacia. Bone marrow signal/fracture: Fusion of the C4-C5 vertebral bodies. No evidence of pathologic marrow infiltration. No evidence of prior fracture. Cervical soft tissues: The paraspinal soft tissues are within normal limits. Large right thyroid mass noted measuring up to 5.8 cm ending into the superior mediastinum, incompletely evaluated on the sagittal images. C2-C3: There is disc degeneration with disc osteophyte complex, uncovertebral spurring, and facet arthropathy causing mild left and moderate foraminal stenosis without significant canal narrowing. C3-C4: There is disc degeneration with disc osteophyte complex, uncovertebral spurring, and facet arthropathy causing moderate canal narrowing with mild cord compression and moderate bilateral foraminal stenosis. C4-C5: There is disc degeneration with disc osteophyte complex, uncovertebral spurring, and facet arthropathy causing mild canal narrowing without severe foraminal stenosis. C5-C6: There is disc degeneration with disc osteophyte complex, uncovertebral spurring, and facet arthropathy causing mild canal narrowing and severe bilateral foraminal stenosis. C6-C7: There is disc degeneration with disc osteophyte complex, uncovertebral spurring, and facet arthropathy causing mild canal narrowing, moderate severe left and severe right foraminal stenosis. C7-T1: Canal and foramina are patent. IMPRESSION: Cervical spondylosis as described worst at C3-C4 with mild cord compression. Abnormal cord signal at this level which may indicate edema or myelomalacia. Large right thyroid mass, incompletely evaluated. Anatomic Variant: None. Assume 7 cervical vertebrae with counting from the craniocervical junction. Incidental Finding: Follow-up with dedicated thyroid Ultrasound for this incidentally detected thyroid nodule(s) 1.0cm or larger in a patient with no known thyroid disease. Citizen [place] [employer] 2008 COMMUNICATION: Communicated the cord compression and abnormal cord signal with: Physician: ARTEM DOW on 01/30/2018 at 9:02 PM. Transcribed Using Voice Recognition Transcribe Date/Time: Jan 30 2018 8:54P Dictated by: SUJEY CASTANON MD This examination was interpreted and the report reviewed and electronically signed by: SUJEY CASTANON MD on Jan 30 2018 9:03PM EST [id number] [facility] Observed: 01/30/2018 Status: COMPLETED Source: [facility] 8:33 PM CLINIC OTHER CAMPUS REPOSITORY O ID: [id number] Author: Adam Sanches (Tech) Service: Radiology Author Type: Computer Applications Instructor Type: Allied Health Filed: 01/30/2018 8:34 PM Note Text: Radiology Service Progress Note PATIENT NAME: Sonia Karimi DATE OF SERVICE: January 30, 2018 TIME: 8:34 PM PATIENT IDENTITY VERIFICATION COMPLETED USING TWO (2) METHODS: Patient confirmed name verbally and ID band matches.. PATIENT GENDER DATA: Female. status: : No status: NO. PATIENT RELEVANT IMPLANT DATA REVIEWED: Yes RADIOLOGY DEPARTMENT: MR; Exam(s) Completed: Spine: Cervical spine PERIPHERAL IV DATA: Not applicable SIGNED BY: Verónica Medina Tech January 30, 2018 8:34 PM CBC AND DIFFERENTIAL Collected: 01/30/2018 Status: F Source: [facility] 7:43 PM CLINIC OTHER CAMPUS REPOSITORY TYPE CODE TESTS RESULT OUT OF REFERENCE UNITS RANGE LAB WBC 3.70-11.00 k/uL WBC High 14.93 LAB RBC 3.90-5.20 m/uL RBC 4.52 LAB HGB 11.5-15.5 g/dL Hemoglobin 12.2 LAB HCT 36.0-46.0 % Hematocrit 37.1 LAB MCV 80.0-100.0 fL MCV 82.1 LAB MCH 26.0-34.0 pG MCH 27.0 LAB MCHC 30.5-36.0 g/dL MCHC 32.9 LAB RDWCV 11.5-15.0 % RDW-CV 13.9 LAB PLTCT 150-400 k/uL Platelet Count 259 LAB MPV 9.0-12.7 fL Low MPV 8.9 LAB ANEUT % Neut% 78.4 LAB AANEUT 1.45-7.50 k/uL Abs Neut High 11.70 LAB ALYMP % Lymph% 13.0 LAB AALYMP 1.00-4.00 k/uL Abs Lymph 1.94 LAB AMONO % Brown% 6.4 LAB AAMONO <0.87 k/uL Abs Brown High 0.95 LAB AEOS % Eosin% 1.9 LAB AAEOS <0.46 k/uL Abs Eosin 0.29 LAB ABASO % Baso% 0.3 LAB AABASO <0.11 k/uL Abs Baso 0.05 LAB DTYP DTYPE Auto Diff MYOGLOBIN SERUM Collected: 01/30/2018 Status: F Source: [facility] 7:43 PM CLINIC OTHER CAMPUS REPOSITORY TYPE CODE TESTS RESULT OUT OF REFERENCE UNITS RANGE LAB MYOGLB 30-90 ng/mL Myoglobin Serum 54 BASIC METABOLIC PANL Collected: 01/30/2018 Status: F Source: [facility] 7:43 PM CLINIC OTHER CAMPUS REPOSITORY TYPE CODE TESTS RESULT OUT OF REFERENCE UNITS RANGE LAB GLU 74-99 mg/dL Glucose High 164 LAB BUN 7-21 mg/dL BUN High 26 LAB CRET 0.58-0.96 mg/dL Creatinine 0.92 LAB NA 136-144 mmol/L Sodium 141 LAB K 3.7-5.1 mmol/L Low Potassium 3.5 LAB CL 97-105 mmol/L Chloride 101 LAB CO2 22-33 mmol/L CO2 25 LAB AGAP 9-18 mmol/L Anion Gap 15 LAB CA 8.6-10.0 mg/dL Calcium, Total 9.6 CK Collected: 01/30/2018 Status: F Source: [facility] 7:43 PM OTHER [facility] REPOSITORY TYPE CODE TESTS RESULT OUT OF RANGE REFERENCE UNITS LAB CK 42-196 U/L CK 102 NURSING PROG Observed: 01/30/2018 Status: COMPLETED Source: [facility] 6:29 PM [facility] REPOSITORY HNO ID: [id number] Author: Mara (Rn) Evelio RN Service: Nursing Author Type: Registered Nurse Type: Nursing Progress Note Filed: 01/30/2018 7:02 PM Note Text: Nursing Progress Note Patient Name: Sonia Karimi Patient Location: [place] [address]/[facility]466-2 Daily Note: 1828-Pt arrived to the unit from outside physicians office. Pt oriented to the room, call light and staff. Pt educated that she a falls risk and reviewed yellow falls sheet with her. Pt watching falls video at this time. Pt is AANDOX3. PT denies any CP, SOB, dizziness or headache. Pt states that she has n/t to her BUE. Pt states that is has begun to get progressively worse. BS present x4, abdomen soft and nontender. BLE are warm, pink and mobile. IS and deep breathing encouraged. Will continue to monitor. Safety maintained. Bed alarm on. 1849-JOINER med list reviewed and updated with pt. 1854-Paged Dr. Dow at this time regarding admission orders and to reorder pts JOINER medications. 1900-Spoke with Dr. Dow at this time, verbal admission orders received will place them into the computer. This note was completed by: MARA TYSON RN CNOV Observed: 01/30/2018 Status: COMPLETED Source: [facility] 3:00 PM [facility] REPOSITORY Office Visit ([facility]) SONIA KARIMI ([id number]) 1955 F Date Time Provider Department 01/30/18 3:00 PM RAMIREZ MIRANDA [facility] During your visit today, we recorded the following information about you: Pulse Respiration Blood pressure Weight 84/minute 18/minute 152/79 127 kg Height 1.676 m Ramirez Miranda MD 01/30/2018 3:53 PM Signed Physical Medicine Clinic Followup SUBJECTIVE: Sonia Karimi a 62 year old White female presents to [facility] Pain Management Department for a followup appointment for Patient presents with: Pain: neck with radiation into arms, and bilateral legs At the last visit the following plan of care was recommended PLAN: 1) Above discussed at length with patient. 2) Start prednisone 60 daily tapering off over 12 days. Advised stimulation effects corticosteroid and advise ranitidine bid while on. 3) Should start to improve 24 hours. If not improving or getting worse, patient advised to go directly to ER for emergent evaluation 4) Will order xray cerv spine and shoulder, and attempt to arrange MRI. 5) refill hs norco 6) Hold off on exercise program. When stable will need physical/occupational therapy 7) RTC 2 weeks. Reiterated need to seek immediate medical attention if leg weakness or arms getting weaker ?. Compared to last visit worse. The pain is located neck and radiates to bilateral upper extremities along anterior aspect and posterior aspect to the level of fingers Started 3 months ago, was not directly related to trauma, and symptoms have been worsening. Characterized as radiating and sharp Currently the pain is a rated at a 6 on a scale of 0-10. Worst pain score is rated at 10 on a scale of 0-10. Best pain score is rated at 6 on a scale of 0-10. Aggravated by standing, getting up from sitting and walking. Mitigated by lying down and medications. Radiation:Yes: REVIEW OF SYSTEMS: GENERAL: No weight loss, malaise or fevers. HEENT: Negative for frequent or significant headaches NECK: positive for neck pain. RESPIRATORY: Negative for cough, wheezing or shortness of breath. CARDIOVASCULAR: Negative for chest pain, leg swelling or palpitations. GI: Negative for abdominal discomfort, blood in stools or black stools or change in bowel habits MUSCULOSKELETAL: positive for joint pain SKIN: Negative for lesions, rash, and itching. PSYCH: Negative for sleep disturbance, mood disorder and recent psychosocial stressors. HEMATOLOGY/LYMPHOLOGY Negative for prolonged bleeding, bruising easily or swollen nodes. NEURO: No history of headaches, syncope, paralysis, seizures or tremors All other reviewed and negative other than HPI. Does the patient feel safe at home Yes Marybeth Gooden RN I have seen and examined the patient and confirmed the above.? The HPI was explored in detail with the patient. OBJECTIVE: BP 152/79 Pulse 84 Resp 18 Ht 5' 6 (1.68m) Wt 280 lb (127.0kg) BMI 45.21 kg/(m2). PHYSICAL EXAMINATION: General appearance: Well appearing, in no acute distress, alert Skin: Skin color, texture, turgor normal, no rashes or lesions Cardiac: RRR, no edema Respiratory: Respirations even and non-labored. GI: Abdomen soft and non-tender. Musculoskeletal: Neck: Pain to palpation over the cervical paraspinous muscles. Spurling positive bilateral. Llhermitte's negative. Pain with neck flexion, extension, and lateral flexion. Worst is extension with radiating pain Back: Straight leg raising in the sitting and supine positions is negative to radicular pain. Mild pain to palpation over the spine or costovertebral angles. Normal range of motion without pain reproduction Extremities: Peripheral joint ROM is full and pain free without obvious instability or laxity in all four extremities, except left shoulder. Decreased active and passive motion left shoulder with impingement. Hip, sacroiliac provocative maneuvers are negative. Bony and synovial changes bilateral knees Neuro: Cranial nerves wnl. L shoulder/elbow/wrist/hands <3/5, R side 3/5. LEs 3-4/5. No clonus. Sensory loss most severe C6-7 bilateral. Reflexes dimiinished in uppers. Able to get up with walker. ASSESSMENT: 62 year old female with declining neuro status, cervical myelopathy. Worse over 2 weeks despite Prednisone 60 tapering Underlying DDD lumbar, DJD knees, obesity PLAN: 1) Reviewed history - fall 3 weeks ago and hit face, then seen here 01/16. Xray with flexion extension views did show translation with flex/ext. CT scan 01/29 in ER showed no fracture, + stenosis 2) Concern for significant and relatively rapid neuro decline. Patient needs MRI and neurosurgery opinion within next 24-48 hours - lengthy discussion with patient and niece. Recommended [facility] or [facility]. 3) Spoke with Dr Kim Neurosurgery, recommend MRI cervical spine without. Discussed with Dr Dow for direct admission - trying to arrange - if unable patient will go to ER. 4) Followup PRN The above plan and management options were discussed at length with patient. Patient is in agreement with the above and verbalized understanding. Ramirez Miranda MD January 30, 2018 Ramirez Miranda MD 01/30/2018 3:51 PM Signed You have had decline in your neurologic condition over few weeks time. I am very concerned about worsening weakness and numbness with potential for irreversible damage. On that basis recommend hospital admission where neurosurgery immediately available if needed. Referring Provider: RAMIREZ MIRANDA [[id number]] Allergies As of Date: 01/30/2018 Noted Allergy Reaction ATIVAN (LORAZEPAM) 03/26/2012 4 - Hives NEOSPORIN (BENZALKONIUM CHLORIDE) 03/26/2012 2 - Rash Date Reviewed: 01/30/2018 Reviewed by: Marybeth Gooden RN - Fully Assessed Reason for Visit: Pain [78] Cmt: neck with radiation into arms, and bilateral legs Primary Visit Diagnosis:Cervical spondylosis with myelopathy [M47.12] Other Visit Diagnoses:Primary osteoarthritis of both knees [M17.0] Obesity, Class III, BMI 40-49.9 (morbid obesity) ([facility]) [E66.01] Degeneration of lumbar intervertebral disc [M51.36] Prescriptions as of 01/30/2018 Sig: AMLODIPINE 5 MG TABLET Take 1 tablet by mouth once d* ATORVASTATIN 10 MG TABLET Take 1 tablet by mouth once d* CHOLECALCIFEROL (VITAMIN D3) * Take 2,000 Units by mouth onc* CLONIDINE HCL 0.1 MG TABLET Take 1 tablet by mouth daily * COMPOUNDED PRESCRIPTION BIPAP 1 liter bleed in 01/17 * DICLOFENAC ER 100 MG TABLET,E* TAKE 1 TABLET DAILY WITH FOOD GABAPENTIN 100 MG CAPSULE TAKE 2 CAPSULES BY MOUTH TWIC* [id number] D3* Take 3 tablets by mouth once * HYDROCODONE 5 MG-ACETAMINOPHE* Take 1 tablet by mouth at bed* HYDROCODONE 5 MG-ACETAMINOPHE* Take 1 tablet by mouth at bed* MULTIVITAMIN AND MINERALS ORAL Take 1 tablet by mouth once d* SERTRALINE 100 MG TABLET Take 1 tablet by mouth once d* TRIAMTERENE 37.5 MG-HYDROCHLO* Take 1 capsule by mouth once * PREDNISONE 10 MG TABLET Please take 3 pills twice ronald* Patient not taking: Reported on 01/30/2018 Problem List As Of Date 01/30/2018 Noted Resolved Essential hypertension [I10] INVALID FOR* Cervical polyp [N84.1] INVALID FOR* Hyperlipidemia [E78.5] INVALID FOR* Osteoarthritis of both knees [M17.0] INVALID FOR* Sleep apnea [G47.30] INVALID FOR* Obesity, Class III, BMI 40-49.9 (morbid obesity*INVALID FOR* Other instructions from your clinician: You have had decline in your neurologic condition over few weeks time. I am very concerned about worsening weakness and numbness with potential for irreversible damage. On that basis recommend hospital admission where neurosurgery immediately available if needed. Disposition: Return if symptoms worsen or fail to improve. Follow-up and Disposition History Recorded Encounter Status:Closed by RAMIREZ MIRANDA MD on 01/30/18 PROGRESS Observed: 01/30/2018 Status: COMPLETED Source: [facility] 2:58 PM CLINIC MAIN CAMPUS REPOSITORY HNO ID: [id number] Author: Ramirez Miranda Service: (none) Author Type: Physician Type: Progress Notes Filed: 01/30/2018 3:53 PM Note Text: Physical Medicine Clinic Followup SUBJECTIVE: Sonia Karimi a 62 year old White female presents to [facility] Pain Management Department for a followup appointment for Patient presents with: Pain: neck with radiation into arms, and bilateral legs At the last visit the following plan of care was recommended PLAN: 1) Above discussed at length with patient. 2) Start prednisone 60 daily tapering off over 12 days. Advised stimulation effects corticosteroid and advise ranitidine bid while on. 3) Should start to improve 24 hours. If not improving or getting worse, patient advised to go directly to ER for emergent evaluation 4) Will order xray cerv spine and shoulder, and attempt to arrange MRI. 5) refill hs norco 6) Hold off on exercise program. When stable will need physical/occupational therapy 7) RTC 2 weeks. Reiterated need to seek immediate medical attention if leg weakness or arms getting weaker ?. Compared to last visit worse. The pain is located neck and radiates to bilateral upper extremities along anterior aspect and posterior aspect to the level of fingers Started 3 months ago, was not directly related to trauma, and symptoms have been worsening. Characterized as radiating and sharp Currently the pain is a rated at a 6 on a scale of 0-10. Worst pain score is rated at 10 on a scale of 0-10. Best pain score is rated at 6 on a scale of 0-10. Aggravated by standing, getting up from sitting and walking. Mitigated by lying down and medications. Radiation:Yes: REVIEW OF SYSTEMS: GENERAL: No weight loss, malaise or fevers. HEENT: Negative for frequent or significant headaches NECK: positive for neck pain. RESPIRATORY: Negative for cough, wheezing or shortness of breath. CARDIOVASCULAR: Negative for chest pain, leg swelling or palpitations. GI: Negative for abdominal discomfort, blood in stools or black stools or change in bowel habits MUSCULOSKELETAL: positive for joint pain SKIN: Negative for lesions, rash, and itching. PSYCH: Negative for sleep disturbance, mood disorder and recent psychosocial stressors. HEMATOLOGY/LYMPHOLOGY Negative for prolonged bleeding, bruising easily or swollen nodes. NEURO: No history of headaches, syncope, paralysis, seizures or tremors All other reviewed and negative other than HPI. Does the patient feel safe at home Yes Marybeth Gooden RN I have seen and examined the patient and confirmed the above.? The HPI was explored in detail with the patient. OBJECTIVE: BP 152/79 Pulse 84 Resp 18 Ht 5' 6 (1.68m) Wt 280 lb (127.0kg) BMI 45.21 kg/(m2). PHYSICAL EXAMINATION: General appearance: Well appearing, in no acute distress, alert Skin: Skin color, texture, turgor normal, no rashes or lesions Cardiac: RRR, no edema Respiratory: Respirations even and non-labored. GI: Abdomen soft and non-tender. Musculoskeletal: Neck: Pain to palpation over the cervical paraspinous muscles. Spurling positive bilateral. Llhermitte's negative. Pain with neck flexion, extension, and lateral flexion. Worst is extension with radiating pain Back: Straight leg raising in the sitting and supine positions is negative to radicular pain. Mild pain to palpation over the spine or costovertebral angles. Normal range of motion without pain reproduction Extremities: Peripheral joint ROM is full and pain free without obvious instability or laxity in all four extremities, except left shoulder. Decreased active and passive motion left shoulder with impingement. Hip, sacroiliac provocative maneuvers are negative. Bony and synovial changes bilateral knees Neuro: Cranial nerves wnl. L shoulder/elbow/wrist/hands <3/5, R side 3/5. LEs 3-4/5. No clonus. Sensory loss most severe C6-7 bilateral. Reflexes dimiinished in uppers. Able to get up with walker. ASSESSMENT: 62 year old female with declining neuro status, cervical myelopathy. Worse over 2 weeks despite Prednisone 60 tapering Underlying DDD lumbar, DJD knees, obesity PLAN: 1) Reviewed history - fall 3 weeks ago and hit face, then seen here 01/16. Xray with flexion extension views did show translation with flex/ext. CT scan 01/29 in ER showed no fracture, + stenosis 2) Concern for significant and relatively rapid neuro decline. Patient needs MRI and neurosurgery opinion within next 24-48 hours - lengthy discussion with patient and niece. Recommended [facility] or [facility]. 3) Spoke with Dr Kim Neurosurgery, recommend MRI cervical spine without. Discussed with Dr Dow for direct admission - trying to arrange - if unable patient will go to ER. 4) Followup PRN The above plan and management options were discussed at length with patient. Patient is in agreement with the above and verbalized understanding. Ramirez Miranda MD January 30, 2018 HOSP Observed: 01/30/2018 Status: COMPLETED Source: [facility] 12:00 AM CLINIC OTHER CAMPUS REPOSITORY Patient:Sonia Karimi MRN: <[id number]> Height:5' 6(1.676 m) Weight:277 lb 9 oz (125.9 kg) Outpatient Medications as of 02/02/18: amLODIPine (NORVASC) 5 mg tablet atorvastatin (LIPITOR) 10 mg tablet cholecalciferol (VITAMIN D-3) 2,000 unit tablet cloNIDine HCl (CATAPRES) 0.1 mg tablet COMPOUNDED PRESCRIPTION diclofenac XR (VOLTAREN-XR) 100 mg Tb24 gabapentin (NEURONTIN) 100 mg capsule [id number] D3 ORAL HYDROcodone-acetaminophen (NORCO) 5-325 mg per tablet HYDROcodone-acetaminophen (NORCO) 5-325 mg per tablet MULTIVIT WITH IRON-MINERALS (MULTIVITAMIN AND MINERALS ORAL) predniSONE (DELTASONE) 10 mg tablet sertraline (ZOLOFT) 100 mg tablet triamterene-hydrochlorothiazide 37.5-25 mg per capsule Admission/Clinic Administered Medications as of 02/02/18: acetaminophen 1,000 mg tab(s) (TYLENOL) acetaminophen 650 mg tab(s) (TYLENOL) amLODIPine 2.5 mg tab(s) (NORVASC) atorvastatin 10 mg tab(s) (LIPITOR) bacitracin 50,000 Units in sodium chloride 0.9 % 1,000 mL ceFAZolin 3 g in D5W 100 mL (ANCEF) cloNIDine HCl 0.1 mg tab(s) (CATAPRES) docusate sodium 100 mg cap(s) (COLACE) gabapentin 200 mg cap(s) (NEURONTIN) HYDROcodone 5 mg - acetaminophen 325 mg tablet (NORCO) lidocaine - VERIFY PATCH lidocaine 5 % 1 Patch (LIDODERM) lidocaine patch - REMOVE NaCl 0.9% iv infusion sertraline 100 mg tab(s) (ZOLOFT) Problem List: Essential hypertension [I10] Cervical polyp [N84.1] Hyperlipidemia [E78.5] Osteoarthritis of both knees [M17.0] Sleep apnea [G47.30] Obesity, Class III, BMI 40-49.9 (morbid obesity) ([facility]) [E66.01] Cervical myopathy [G72.9] Cervical spondylosis with myelopathy [M47.12] Allergies: Ativan [Lorazepam] Neomycin Neosporin [Benzalkonium Chloride] Date Verified: 02/02/18 Lab Values Lab Value Units Date High Low POTA* 3.9 mmol/L 02/02/2018 5.1 3.7 MICAELA* 35.7 % 02/02/2018 46.0 36.0 Progress Notes (): MARA TYSON, RN, RN 01/30/2018 7:02 PM Addendum Nursing Progress Note Patient Name: Sonia Karimi Patient Location: [place] [address]/[facility]466-2 Daily Note: 1828-Pt arrived to the unit from outside physicians office. Pt oriented to the room, call light and staff. Pt educated that she a falls risk and reviewed yellow falls sheet with her. Pt watching falls video at this time. Pt is AANDOX3. PT denies any CP, SOB, dizziness or headache. Pt states that she has n/t to her BUE. Pt states that is has begun to get progressively worse. BS present x4, abdomen soft and nontender. BLE are warm, pink and mobile. IS and deep breathing encouraged. Will continue to monitor. Safety maintained. Bed alarm on. 1849-JOINER med list reviewed and updated with pt. 1854-Paged Dr. Dow at this time regarding admission orders and to reorder pts JOINER medications. 1900-Spoke with Dr. Dow at this time, verbal admission orders received will place them into the computer. This note was completed by: MARA TYSON RN Previous Version Verónica Medina Tech 01/30/2018 8:34 PM Signed Radiology Service Progress Note PATIENT NAME: Sonia Karimi DATE OF SERVICE: January 30, 2018 TIME: 8:34 PM PATIENT IDENTITY VERIFICATION COMPLETED USING TWO (2) METHODS: Patient confirmed name verbally and ID band matches.. PATIENT GENDER DATA: Female. status: : No status: NO. PATIENT RELEVANT IMPLANT DATA REVIEWED: Yes RADIOLOGY DEPARTMENT: MR; Exam(s) Completed: Spine: Cervical spine PERIPHERAL IV DATA: Not applicable SIGNED BY: Verónica Medina Tech January 30, 2018 8:34 PM Danyelle Choi RN, RN 01/30/2018 10:17 PM Signed Nursing Progress Note Patient Name: Sonia Karimi Patient Location: [facility]-466/4B-466-2 Daily Note:2218 New IV placed on first attempt following sterile technique, tolerated well, MELODY Higgins notified. This note was completed by: MELODY Friend RN, RN 01/30/2018 10:27 PM Addendum Nursing Progress Note Patient Name: Sonia Karimi Patient Location: [facility] Daily Note: 0: Assumed care of this pt, report received from MELODY. Andreia, I/S at bedside, SCDs on bilaterally. Pain board reviewed with pt. Denies further needs at this time, call light in place, bed in lowest position, will continue to monitor. 1999: Pt resting quietly in bed. Vitals and assessment complete, see flowsheets. Pt tolerated well. Medication administered per eMAR. Denies further needs at this time, safety maintained. 2009: Pt left unit in stable condition for MRI 2114: Spoke with Dr. Dow regarding results of MRI, will make Dr. Kim aware as well. 2119: Dr Kim made aware of MRI results 2129: Pt returned to unit, bed alarm on, call daniel within reach 0000: Pt resting quietly in bed, eyes closed. Respirations even and unlabored. Call light within reach, will continue to monitor. 0400: Pt resting quietly in bed, eyes closed. Respirations even and unlabored. Call light within reach, will continue to monitor. This note was completed by: Gisela Mixon RN Previous Version Lola Vaughan, MELODY, RN 01/31/2018 7:59 AM Signed Nursing Progress Note Patient Name: Sonia Karimi Patient Location: [facility]-2 Daily Note: Assumed care of pt, AANDOx3, c/o numbness/tingling to bilateral arms. Assessment as charted This note was completed by: MELODY Laguna MD 01/31/2018 1:06 PM Addendum CONSULT: Neurosurgery SERVICE SERVICE DATE: 01/31/2018 SERVICE TIME: 744 REASON FOR CONSULT: cervical myopathy REQUESTING PHYSICIAN: [place]oma PRIMARY CARE PHYSICIAN: DO Agnes Clinton Ms. Karimi is a 62 year old female who presents for cervical myopathy. Patient states that symptoms started about 3 weeks ago with no antecedent trauma or activity. Since then she has had some falls. Pain is in the neck and will radiate at times down bilateral UEs to the fingers. She complains of numbness in all extremities UE>LEs. No change in bowel and bladder. She is right handed and has difficulty with fine motor tasks. She was using a cane but is now having difficulty with that due to the difficulty with fine motor tasks. FUNCTIONAL STATUS: Partially dependent PAST MEDICAL HISTORY Diagnosis Date - Cervical polyp - COPD (chronic obstructive pulmonary disease) (HCC) - Hyperlipidemia - Hypertension - Minor depression PAST SURGICAL HISTORY Procedure Laterality Date - REMOVAL ADENOIDS,PRIMARY,<12 Y/O Adenoidectomy - REMOVAL OF TONSILS,<12 Y/O Tonsillectomy FAMILY HISTORY Problem Relation Age of Onset - Cancer Father leukemia - Cancer Mother skin cancer - Cancer Paternal Grandfather stomach cancer - Cancer Paternal Grandmother colon to liver - Cancer Sister cancer in situ - breast - Diabetes Father - Diabetes Sister - Heart Mother tachycardia Social History Substance Use Topics - Smoking status: Former Smoker - Smokeless tobacco: Never Used Comment: Quit smokig 38 years ago - Alcohol use No Prescriptions Prior to Admission: amLODIPine (NORVASC) 5 mg tablet Take 1 tablet by mouth once daily. Disp: 90 tablet Rfl: 3 Taking atorvastatin (LIPITOR) 10 mg tablet Take 1 tablet by mouth once daily. Disp: 90 tablet Rfl: 3 Taking cholecalciferol (VITAMIN D-3) 2,000 unit tablet Take 2,000 Units by mouth once daily. Disp: Rfl: Taking cloNIDine HCl (CATAPRES) 0.1 mg tablet Take 1 tablet by mouth daily at bedtime. Disp: 90 tablet Rfl: 3 Taking COMPOUNDED PRESCRIPTION BIPAP 1 liter bleed in 12/5 cm. RR 14Replacement machine with heated humidity. CPAP mask and supplies.Use nightly. Disp: 1 Each Rfl: 0 Taking diclofenac XR (VOLTAREN-XR) 100 mg Tb24 TAKE 1 TABLET DAILY WITH FOOD Disp: 90 tablet Rfl: 3 Taking gabapentin (NEURONTIN) 100 mg capsule TAKE 2 CAPSULES BY MOUTH TWICE A DAY Disp: 120 capsule Rfl: 3 Taking OJUSBSOZ-HDN-NLQCUFEVW-VIT D3 ORAL Take 3 tablets by mouth once daily. Disp: Rfl: Taking HYDROcodone-acetaminophen (NORCO) 5-325 mg per tablet Take 1 tablet by mouth at bedtime as needed for up to 30 days.Earliest Fill Date: 08/29/17 Disp: 30 tablet Rfl: 0 Taking HYDROcodone-acetaminophen (NORCO) 5-325 mg per tablet Take 1 tablet by mouth at bedtime as needed for up to 30 days. Disp: 30 tablet Rfl: 0 Taking MULTIVIT WITH IRON-MINERALS (MULTIVITAMIN AND MINERALS ORAL) Take 1 tablet by mouth once daily. Disp: Rfl: Taking predniSONE (DELTASONE) 10 mg tablet Please take 3 pills twice daily for 3 days, then 2 pills twice daily for 3 days, then 1 pill twice daily for 3 days, then 1 pill daily till gone. (Patient not taking: Reported on 01/30/2018 ) Disp: 40 tablet Rfl: 0 Not Taking sertraline (ZOLOFT) 100 mg tablet Take 1 tablet by mouth once daily. Disp: 90 tablet Rfl: 3 Taking triamterene-hydrochlorothiazide 37.5-25 mg per capsule Take 1 capsule by mouth once daily. Disp: 90 capsule Rfl: 3 Taking Current hospital medications: amLODIPine 5 mg tab(s) (NORVASC) 5 mg ORAL DAILY cloNIDine HCl 0.1 mg tab(s) (CATAPRES) 0.1 mg ORAL AT BEDTIME diclofenac (EC) 50 mg tab(s) (VOLTAREN) 50 mg ORAL BID gabapentin 200 mg cap(s) (NEURONTIN) 200 mg ORAL BID HYDROcodone 5 mg - acetaminophen 325 mg tablet (NORCO) 1 tablet ORAL HS PRN potassium chloride ER 20 mEq tab(s) (K-DUR, KLOR-CON) 20 mEq ORAL ONCE sertraline 100 mg tab(s) (ZOLOFT) 100 mg ORAL DAILY triamterene-hydrochlorothiazide 37.5-25 mg 1 tablet (MAXZIDE- 25) 1 tablet ORAL DAILY Allergies As of Date: 01/30/2018 Allergen Noted Reaction ATIVAN [LORAZEPAM] 03/26/2012 Hives NEOSPORIN [BENZALKONIUM CHLORIDE] 03/26/2012 Rash Fully Assessed 01/30/2018 COMPLETE REVIEW OF SYSTEMS: PAIN ASSESSMENT: Negative for pain, history of chronic pain, or current treatment for a chronic pain condition. GENERAL: No weight loss, malaise or fevers HEENT: Negative for frequent or significant headaches, No changes in hearing or vision, no nose bleeds or other nasal problems NECK: Negative for lumps, goiter, pain and significant neck swelling RESPIRATORY: Negative for cough, hemoptysis, wheezing, COPD, dyspnea or shortness of breath CARDIOVASCULAR: Negative for chest pain, leg swelling, hypertension, CHF or palpitations GI: No nausea, vomiting, or diarrhea : No history of dysuria, frequency or incontinence MUSCULOSKELETAL: see HPI SKIN: Negative for lesions, rash, and itching PSYCH: Negative for sleep disturbance, mood disorder and recent psychosocial stressors HEMATOLOGY/LYMPHOLOGY: Negative for prolonged bleeding, bruising easily or swollen nodes ENDOCRINE: Negative for cold or heat intolerance, polyuria, polydipsia and goiter NEURO: No history of headaches, syncope, paralysis, seizures or tremors Objective PHYSICAL EXAM: Physical Exam Performed: GENERAL: Alert, no distress, cooperative NEURO: motor: 5/5 BLEs, 5/5 BUEs with the exception of right biceps 4+/5, left biceps 4-4+/5 and left intrinsics 3/5 Sensation: intact to LT in BUE/BLEs Positive ruiz's bilateral, sustained Clonus bilaterally. BP 116/60 Pulse 79 Temp (Src) 98.5 (Oral) Resp 18 Ht 5' 6 (1.68m) Wt 277 lb 9 oz (125.9kg) SpO2 94% BMI 44.82 kg/(m2). DATA: Diagnostic tests reviewed for today's visit: Most recent imaging: radiologist report: Cervical spondylosis as described worst at C3-C4 with mild cord compression. ?Abnormal cord signal at this level which may indicate edema or myelomalacia. Impression/Recommendations Active Problems: Cervical myopathy POA: Yes No acute neurosurgery intervention Further pending Dr. Kim's review. 62 yo female with progressive cervical myelopathy over last 2 weeks, unable to use arms/hands. Deltoid 2/5, left biceps tricep 2/5, right biceps triceps 3/5, hand intrinsics 2/5. 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 Will rec ACDF C3-4. I discussed risks including bleeding, infection, CSF leak, paralyzes, oesophagus injury, carotid a injury, trouble swallowing, permanent feeding tube, stroke, SC, DVT. Patient will require pre op clearance. Latrice Hayes MD SIGNATURE: JADE Hercules PATIENT NAME: Sonia Karimi DATE: January 31, 2018 TIME: 8:06 AM PAGER: Previous Version Artem Dow MD 01/31/2018 5:50 PM Signed HISTORY AND PHYSICAL EXAMINATION PATIENT NAME: Sonia Karimi SERVICE DATE: 01/31/2018 SERVICE TIME: 8:34 AM PRIMARY CARE PHYSICIAN: Gisela Gar DO SUBJECTIVE CHIEF COMPLAINT: Neck pain HPI: This is a 62 year old female who presents with cervical myopathy. Patient reports neck pain started about 3 weeks ago. She went to see her PCP who gave her prednisone for 2 weeks but there was no improvement. Continued to having numbness in bilateral hands and in both legs at times. She went back to follow up with her doctor who sent her to the hospital for further evaluation. Reports no trauma but has had some falls recently. Uses a cane usually at home but lately has been having trouble due to numbness in her arms.Denies any bowel or bladder changes but does report having bladder fullness. PAST MEDICAL HISTORY: PAST MEDICAL HISTORY Diagnosis Date - Cervical polyp - COPD (chronic obstructive pulmonary disease) (HCC) - Hyperlipidemia - Hypertension - Minor depression PAST SURGICAL HISTORY: PAST SURGICAL HISTORY Procedure Laterality Date - REMOVAL ADENOIDS,PRIMARY,<12 Y/O Adenoidectomy - REMOVAL OF TONSILS,<12 Y/O Tonsillectomy FAMILY HISTORY: FAMILY HISTORY Problem Relation Age of Onset - Cancer Father leukemia - Cancer Mother skin cancer - Cancer Paternal Grandfather stomach cancer - Cancer Paternal Grandmother colon to liver - Cancer Sister cancer in situ - breast - Diabetes Father - Diabetes Sister - Heart Mother tachycardia SOCIAL HISTORY: Social History Substance Use Topics - Smoking status: Former Smoker - Smokeless tobacco: Never Used Comment: Quit smokig 38 years ago - Alcohol use No MEDICATIONS: Prior to Admission Medications Prescriptions Prior to Admission: amLODIPine (NORVASC) 5 mg tablet Take 1 tablet by mouth once daily. Disp: 90 tablet Rfl: 3 Taking atorvastatin (LIPITOR) 10 mg tablet Take 1 tablet by mouth once daily. Disp: 90 tablet Rfl: 3 Taking cholecalciferol (VITAMIN D-3) 2,000 unit tablet Take 2,000 Units by mouth once daily. Disp: Rfl: Taking cloNIDine HCl (CATAPRES) 0.1 mg tablet Take 1 tablet by mouth daily at bedtime. Disp: 90 tablet Rfl: 3 Taking COMPOUNDED PRESCRIPTION BIPAP 1 liter bleed in 12/5 cm. RR 14Replacement machine with heated humidity. CPAP mask and supplies.Use nightly. Disp: 1 Each Rfl: 0 Taking diclofenac XR (VOLTAREN-XR) 100 mg Tb24 TAKE 1 TABLET DAILY WITH FOOD Disp: 90 tablet Rfl: 3 Taking gabapentin (NEURONTIN) 100 mg capsule TAKE 2 CAPSULES BY MOUTH TWICE A DAY Disp: 120 capsule Rfl: 3 Taking IUXFHPRY-ZNV-RGGZYXFCG-VIT D3 ORAL Take 3 tablets by mouth once daily. Disp: Rfl: Taking HYDROcodone-acetaminophen (NORCO) 5-325 mg per tablet Take 1 tablet by mouth at bedtime as needed for up to 30 days.Earliest Fill Date: 08/29/17 Disp: 30 tablet Rfl: 0 Taking HYDROcodone-acetaminophen (NORCO) 5-325 mg per tablet Take 1 tablet by mouth at bedtime as needed for up to 30 days. Disp: 30 tablet Rfl: 0 Taking MULTIVIT WITH IRON-MINERALS (MULTIVITAMIN AND MINERALS ORAL) Take 1 tablet by mouth once daily. Disp: Rfl: Taking predniSONE (DELTASONE) 10 mg tablet Please take 3 pills twice daily for 3 days, then 2 pills twice daily for 3 days, then 1 pill twice daily for 3 days, then 1 pill daily till gone. (Patient not taking: Reported on 01/30/2018 ) Disp: 40 tablet Rfl: 0 Not Taking sertraline (ZOLOFT) 100 mg tablet Take 1 tablet by mouth once daily. Disp: 90 tablet Rfl: 3 Taking triamterene-hydrochlorothiazide 37.5-25 mg per capsule Take 1 capsule by mouth once daily. Disp: 90 capsule Rfl: 3 Taking CURRENT ALLERGIES: ALLERGIES Allergen Reactions - Ativan [Lorazepam] Hives - Neosporin [Benzalko* Rash COMPLETE REVIEW OF SYSTEMS: GENERAL: No weight loss, malaise or fevers/chills HEENT: No recent colds/congestion RESPIRATORY: Negative for cough, wheezing or shortness of breath CARDIOVASCULAR: Negative for chest pain, palpitations, or leg swelling GI: No nausea, vomiting, or diarrhea. No abdominal pain or constipation : No dysuria, frequency or incontinence MUSCULOSKELETAL: Negative for joint pain or swelling, back pain or muscle pain SKIN: Negative for lesions, rash, and itching NEURO: No headaches, dizziness, + numbness or tingling All other reviewed and negative other than HPI. OBJECTIVE PHYSICAL EXAM: Patient Vitals for the past 24 hrs: BP Temp Temp src Pulse Resp SpO2 Height Weight 01/31/18 0800 (!) 108/48 36.6 ?C (97.9 ?F) Oral 63 18 95 % - - 01/31/18 0013 116/60 36.9 ?C (98.5 ?F) Oral 79 18 94 % - - 01/30/182001 107/50 36.5 ?C (97.7 ?F) Oral 79 18 97 % - - 01/30/18 1833 150/70 36.6 ?C (97.8 ?F) Oral 90 20 98 % - - 01/30/18 1832 - - - - - - 167.6 cm (5' 6) 125.9 kg (277 lb 9 oz) Body mass index is 44.8 kg/m?. BP (!) 108/48 Pulse 63 Temp 36.6 ?C (97.9 ?F) (Oral) Resp 18 Ht 167.6 cm (5' 6) Wt 125.9 kg (277 lb 9 oz) SpO2 95% BMI 44.80 kg/m? GENERAL: Alert, no acute distress, cooperative SKIN: Skin color, texture, turgor normal. No rashes or lesions. NECK: No jugulovenous distention, Supple, decreased ROM LUNGS: Lungs clear to auscultation, Good diaphragmatic excursion CARDIAC: Normal S1 and S2; no rubs, murmurs, or gallops ABDOMEN: Abdomen soft, non-tender, BS normal x4 EXTREMITIES: No LE edema NEURO: AANDOx3, Non-focal sensation intact B?L upper and lower extremities, 5/5 strength upper and lower extremities PULSES: 2+ radial, 2+ carotid DATA: Diagnostic tests reviewed for today's visit: Most recent labs Most recent imaging CBC, Coags, BMP, Mg, Phos Recent Labs 01/30/181942 WBC 14.93* HB 12.2 HCT 37.1 PLT 259 NA 141 K 3.5* CHLOR 101 CO2 25 BUN 26* CREAT 0.92 GLUC 164* CA 9.6 Liver Function, Amylase, AND Lipase Cardiac Enzymes Recent Labs 01/30/181942 CK 102 ASSESSMENT AND PLAN Cervical myopathy [G72.9] - MRI spine: cord compression - Neurosurgery consulted - gabapentin, norco Bladder fullness - check UA for UTI HTN - c/w amlodipine, maxzide HLD: statin Thyroid mass - noted on MRI - thyroid US Hypokalemia - replete, monitor IRIS - CPAP Obesity DVT prophylaxis - SCDs SIGNATURE: Mandie Aguilar APRN.POWER MULE OPERATOR DATE: January 31, 2018 TIME: 8:34 AM Patient seen, examined and details of HAND P reviewed. I personally have examined the patient and reviewed the Assessment and Plan with our team as detailed above. Changes made to Plan of Care as recorded. 62 yr w rapidly worsening UE weakness, neck pain, admitted after out-pt w [facility], raising concern for urgent Neurosurgeon eval. No h/o trauma. Pt reports UE numbness, which initially got better w a Pred burst. Now hard for her to raise her arms. Reports no LE weakness. M Obese uses CPAP for IRIS UE 3/5 ericka, DTRs suppresed. CTA S1S2 Soft abdo WBC 14.9, but was on Pred Urgent MRI Cx SP was done noted NSurg eval on going this am CPAP form home Artem Dow M.D. Previous Version Richard Huddleston MD 01/31/2018 11:25 AM Signed Case Management: Chart reviewed. 62 year old female who presented with concern for cervical myopathy. Failed Outpatient management Falls. Needs a cane for routine ambulation but difficulties with use secondary to arm numbness. Morbid obesity with a BMI of 44.80 and a weight of 277. MRI yesterday has an incidental finding of a large thyroid mass measuring 5.8 cm. Agree with Inpatient Status. 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 No Advance Directive: Current Advance Directive: Health Care Power of Splitting Machine Feeder;Living Will In Chart: No Center Maker Hand Attempted to Assist with AD Completion: Yes Action: Patient Unwilling Health Literacy: 1. How often do you need to have someone help you when you read instructions, pamphlets, or other written material from your doctor or pharmacy? Never - 1 2. How confident are you filling out medical forms by yourself? Extremely - 1 If Patient scores > 3 on either question, the following interventions were put into place: Patient did not score > 3 FUNCTIONAL AND COGNITIVE/BEHAVIORAL PRIOR TO ADMISSION: Baseline Mental Status: Alert AND Oriented, Person, Place , Time and Situation Functional Status: Independent Does Patient Currently Receive Any Community Services or Home Care? None Equipment Prior to Admission: Cane - Straight Walker Has the Patient Been in a Residential Facility in the Past 30 days? No SOCIAL: Living Arrangement: Home Lives With: sumaya Financial Resources: N/A Primary Contact: Extended Emergency Contact Information Primary Emergency Contact: Yuval Alfaro Mobile Relation: Sister Supportive: Yes Other Important Patient Contacts: None Caregiver Assessment: Caregiver is ready, willing and able to meet the patient's needs as recommended by the inter-professional team? to be determined Patient's transition needs and plan for meeting these needs: await physician treatment plan and therapy evaluations Does the patient have an acute stroke diagnosis, or has the patient had a stroke during this admission? No Medication Adherence: I am convinced of the importance of my prescription medication: Agree completely - 0 I worry that my prescription medication will do more harm than good to me Disagree completely - 0 I feel financially burdened by my [id number] expenses for my prescription medication: Disagree completely - 0 Patient is categorized as low risk < 2 Are you interested in bedside delivery of your medications? No Food Concerns: In the Last Month, Have You had Trouble Getting Food? No trouble getting food During the Last Month, Have You Worried Whether Your Food Would Run Out Before You Had Enough Money to Buy More? No Is the Patient Psychosocially Complex? No ASSESSMENT AND PLAN: Medical Needs: 2 or more chronic diseases and Fall risk or frequent falls Psychosocial Needs: None FREEDOM OF CHOICE EXPLAINED: N/A at this time POTENTIAL TRANSITION PLANS Home Home OT/PT Rehab Facility Met with patient at bedside. She has noticed increase weakness in her hands and had been on prednisone. She saw no improvement and physician sent to [facility] for further testing. Await treatment plan and therapy evaluations. Will follow. SIGNATURE: Ivana Ward RN PATIENT NAME: Sonia Karimi DATE: January 31, 2018 TIME: 11:43 AM PAGER/CONTACT #: [phone] Ainsley Mix RN, RN 01/31/2018 1:52 PM Addendum Nursing Progress Note Patient Name: Sonia Karimi Patient Location: [place] [address] [address] Daily Note: 1115- Received report at this time, denies needs, will monitor. 1135- Gave ordered atorvastatin, patient alert and oriented, numbness and tingling in bilateral upper extremities. Stating neck pain, patient takes 600mg ibuprofen 3x daily, will page Dr Dow to notify and receive pain medication orders. 1200- Paged Dr Dow at this time: Sonia Karimi- [phone] Patient having neck pain, patient takes 600 ibuprofen 3x day. PT requesting. Drew, Ainsley [phone] Paged Dr Dow to make aware of pharmacists concerns for ordered ibuprofen as well as Voltaren: Sonia Karimi 466-2 Pharmacy will not verify ibuprofen because patient takes voltaren 50mg twice daily for her knees. Both are NSAIDS. Patient is okay with taking Tylenol instead. Thanks, Ainsley [phone] Paged Dr Dow at this time per patient request: Sonia Karimi [phone] Patient going down to ultrasound of thyroid, patient does not have any idea why she needs an ultrasound of her thyroid. Able to come talk to patient about MRI results. Thank you, Ainsley [phone] This note was completed by: Ainsley Mix RN Previous Version Tabby Costa PT 01/31/2018 12:47 PM Signed PHYSICAL THERAPY MISSED VISIT SERVICE DATE: 01/31/2018 SERVICE TIME: 0715 to 0715 ROOM: [place] [address] Attempted Evaluation. Patient not seen due to Incomplete Orders. Neurosurgery consult pending. Will re-attempt as able. SIGNATURE: Tabby Costa PT PATIENT NAME: Sonia Karimi DATE: January 31, 2018 TIME: 12:47 PM LILY Cardona/Adam 01/31/2018 2:46 PM Addendum Occupational Therapy Evaluation SERVICE DATE: 01/31/2018 SERVICE TIME: 1305 to 1335 ROOM: [place] [address] ( ULTRASOUND) Recommended Discharge Disposition: Acute Rehab Recommended Discharge Disposition Comments: for safe AND IND functioning Justification For Post Acute Needs: Anticipate patient will tolerate 3 hours of daily therapy at the time of admission to post-acute setting;Cognition intact;Living the community premorbidly;Medically complex;Motivated;Willing to participate OT Recommendations to Nursing: ADL?s in chair;To Bathroom for ADL?s /and or Toileting;OOB for meals;With assist of 1 person OT 6 Clicks Score: 14 Precautions/Activity Restrictions: Fall Risk ASSESSMENT: Patient presents with Cervical myopathy. Requires skilled OT to maximize ADL completion and functional mobility. Patient Disposition at Start of Session: Supine in Bed;Call Daniel in Reach Patient Disposition at End of Session: OOB in Chair;Call Daniel in Reach Tolerated Full Session Occupational Therapy Problem List: Safety Deficits;Impaired Self Care;Decreased Activity Tolerance;Functional Mobility Impairment Patient /Caregiver Goals: Go To Rehab Goals for Plan of Care: Upper Body Dressing with: Set Up Lower Body Dressing with: Minimal Assistance Chair Transfer with: Supervision Toilet Transfer with: Supervision Tolerate (minutes of functional activity): 30 Functional Activity with: Supervision Rehab Potential: Good PLAN: Treatment Frequency (times per week): 4 Current admission Treatment Interventions: Education;Self Care / Home Management;Energy Conservation Training;Functional Mobility Training;Neuromuscular Re-education Plan of Care developed with: Patient TREATMENT INTERVENTIONS: Therapy Diagnosis: Reduced mobility-other;Decreased activities of daily living (ADL);General symptoms and signs-other Interventions Provided: Evaluation;Self Snf Management (65797) $ Evaluation-Low (84232) Billed Units: 1 unit OT Evaluation Low Complexity: Occupational Profile - Brief review of patient's medical record completed (please see current hospital course of evaluation). Occupational Performance - Pt presents with deficits in feeding, grooming, UE bathing/dressing, LE bathing/dressing, functional transfers, functional mobility, chair transfer, toilet transfer Complexity in Clinical Decision Making - The extent of clinical reasoning was low, number of treatment options limited, no need for modifications during the evaluation process, no comorbidities present to affect patient's occupational performance. Self Snf Management (64877) Treatment Minutes: 25 2 units Skilled Intervention(s): pt seen BS this pm. co-treat with PT; Educated pt on proper body mechanics to increase ease and safety with functional task completion; Supine to sit with elevated HOB CGA; Sit to stand CGA with RW- pt has bad knees; Toilet transfer CGA with grab bar; Supervised hygiene; cues for correct hand placement while standing at sink; Pt ambulated with RW to sit up in chair--CGA for transfer to chair; Pt instructed in the importance of being out of bed with staff assist, benefits of sitting up in chair for meals ,as able; pt educated on role of OT in acute care environment, POC, and discharge planning. Mod A for self care task completion secondary to weakness/numbness; Pt reports possible pending cervical surgery this week; appears below functional baseline; Recommend Acute rehab to maximize IND functioning; Will continue; Pt with poor tolerance to multiple sessions of therapy this date and has requested to be seen as a co-treatment by two skilled therapists to address functional mobility progression, functional task modification, and activity modification for patient and therapist safety in order to maximize benefits of service to the patient. Total Timed Code Treatment Minutes: 25 Total Treatment Time (minutes): 30 FUNCTIONAL G CODE: OT 6 Clicks Score: 14 (01/31/18 1305) Self Care Current Status (G8987): CK (01/31/18 1305) Self Care Goal Status (G8988): CJ (01/31/18 1305) Based on clinical assessment and the score on the 6 Clicks Functional Assessment Tool, the G code and corresponding severity modifiers are documented above. SUBJECTIVE: Current Hospital Course: Chart reviewed;Reviewed history - fall 3 weeks ago and hit face, then seen here 01/16. Xray with flexion extension views did show translation with flex/ext. CT scan 01/29 in ER showed no fracture, + stenosis 2) Concern for significant and relatively rapid neuro decline. Patient needs MRI and neurosurgery opinion within next 24-48 hours - lengthy discussion with patient and niece. Recommended [facility] or [facility]. 3) Spoke with Dr Kim Neurosurgery, recommend MRI cervical spine without. Discussed with Dr Dow for direct admission - trying to arrange - if unable patient will go to ER. 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 OBJECTIVE: Cognition/Communication Deficits Responsiveness: Alert;Awake Follows Commands: 3-step Commands CURRENT FUNCTIONAL STATUS: Current Activities of Daily Living Assist Level Feeding Moderate Assistance Grooming Moderate Assistance Bathing Upper Body Moderate Assistance Bathing Lower Body Moderate Assistance Dressing Upper Body Moderate Assistance Dressing Lower Body Moderate Assistance Toileting Supervision Instrumental Activities of Daily Living Assist Level Meal/Beverage Prep Light Cleaning Laundry Medication Management with Strategies Functional Mobility Assist Level Rolling Supine to Sit Supervision Sit to Supine Scooting Sit to Stand Minimal Assistance Stand to Sit Minimal Assistance Bed to Chair Toilet/Commode Contact Guard Assistance Functional Mobility Minimal Assistance Wheeled Walker Balance: Static Sitting;Dynamic Sitting;Static Standing;Dynamic Standing Static Sitting Balance: Supervision Dynamic Sitting Balance: Supervision Static Standing Balance: Contact Guard Assistance Dynamic Standing Balance: Minimal Assistance Activity Tolerance: Standing Activity Standing Activity: amb to BR Standing Activity Tolerance (in minutes): 3 Please see discipline specific clinical documentation flowsheet for complete details for this therapy evaluation/treatment. SIGNATURE: LILY Cardona/Adam PATIENT NAME: Sonia Karimi DATE: January 31, 2018 TIME: 2:34 PM Previous Version Tabby Costa PT 01/31/2018 3:19 PM Signed Physical Therapy Evaluation SERVICE DATE: 01/31/2018 SERVICE TIME: 1305 to 1335 ROOM: [place] [address] ([facility]) Recommended Discharge Disposition: Acute Rehab Recommended Discharge Disposition Comments: Rec AR to maximize functional mobility and safety Justification For Post Acute Needs: Anticipate that patient will require daily (5x/wk) skilled therapy in a post-acute facility setting at the time of acute hospital discharge;Anticipate patient will tolerate 3 hours of daily therapy at the time of admission to post-acute setting Recommended Discharge Equipment: No equipment needs anticipated PT Recommendations to Nursing: Ambulate with device;Transfer to/from chair;OOB for Meals;With assist of 2 people Device: Wheeled Walker PT 6 Clicks Score: 19 Precautions/Activity Restrictions: Fall Risk ASSESSMENT : Pt presents with impaired functional mobility, ADL performance, strength and endurance impacting ability to function without assist from staff. Pt's needs exceeds resources available at home to safely return home at this time secondary to balance and physiological response. Requires skilled therapy to address mobility and self care limitations as well as progression of activities within safe limits to prevent falls. Pt is a low complexity evaluation for these reasons. Patient Disposition at Start of Session: Supine in Bed;Call Daniel in Reach Patient Disposition at End of Session: OOB in Chair;Call Daniel in Reach (RN states no need for chair alarm ) Tolerated Full Session Physical Therapy Problem List: Balance Impaired;Functional Mobility Impairment;Decreased Strength;Decreased Range Of Motion;Decreased Activity Tolerance;Impaired Self Care;Safety Deficits;Pain Patient /Caregiver Goals: Go Home Goals for Plan of Care: Able to perform HEP with: Verbal Cues Only Transfer supine to/from sit with: Modified Independent Transfer sit to/from stand with: Modified Independent Ambulate with: Modified Independent Distance: 50 Device: Wheeled Walker Ambulate up and down steps with: Contact Guard Assistance Number of steps: 3 Device: Rail Transfer: All functional transfers with mod I Rehab Potential: Good PLAN: Treatment Frequency (times per week): 7 Treatment Duration (number): (as able LOS) Current admission Treatment Interventions: Education;Self Care / Home Management;Energy Conservation Training;Joint Mobility;Strengthening;Functional Mobility Training;Balance Training;Neuromuscular Re-education Plan of Care developed with: Patient TREATMENT INTERVENTIONS: Therapy Diagnosis: Reduced mobility-other;Decreased activities of daily living (ADL);Muscle Weakness (generalized) Interventions Provided: Evaluation;Therapeutic Activity (77514);Gait Training (58974) $ Evaluation-Low (03130) Billed Units: 1 unit Therapeutic Activity (44705) Treatment Minutes: 13 1 unit Skilled Intervention(s): Instructed patient in supine to sit pushing with upper extremities to sit up Instruction in sit to stand technique with proper hand placement and body positioning at edge of bed/chair Instruction in stand to sit technique with lower extremities touching chair/bed and reaching back for surface Instruction in sit to and from stand technique with proper hand placement and body positioning at edge of bed/chair Gait Training (14188) Treatment Minutes: 10 1 unit Skilled Intervention(s): Instruction in sit to stand technique with proper hand placement and body positioning at edge of bed/chair, Instruction in stand to sit technique with LE's touching chair/bed and reaching back for surface, Instruction in sequencing, gait pattern, Instruction in correction of gait deviations and Instruction in use of equipment, cues for sequence and pattern Pt educated on role of therapy, POC, importance of OOB with assist. Pt in bed on arrival. Supine to sit with supervision. Sitting EOB with no c/o dizziness. Pt with 5/5 strength in LEs. Sit to stand with min A. Verbal cues for hand placement and safety with transfer. Pt ambulated 10 x 2 with wheeled walker and min A. Pt with decreased speed/step length and forward flexed posture. Pt leans heavily on walker and has bilateral knee buckling. Pt with genu varum bilaterally. Pt transferred on/off commode with Min A. Verbal cues for hand placement and safety with transfer. Pt in chair post session. Total Timed Code Treatment Minutes: 23 Total Treatment Time (minutes): 30 FUNCTIONAL G CODE: PT 6 Clicks Score: 19 (01/31/18 1305) Mobility: Walking and Moving Around Current Status (G8978): CK (01/31/18 1305) Mobility: Walking and Moving Around Goal Status (G8979): CJ (01/31/18 1305) Based on clinical assessment and the score on the 6 Clicks Functional Assessment Tool, the G code and corresponding severity modifiers are documented above. SUBJECTIVE: Current Hospital Course: Chart reviewed; CHIEF COMPLAINT: Neck pain HPI: This is a 62 year old female who presents with cervical myopathy. Patient reports neck pain started about 3 weeks ago. She went to see her PCP who gave her prednisone for 2 weeks but there was no improvement. Continued to having numbness in bilateral hands and in both legs at times. She went back to follow up with her doctor who sent her to the hospital for further evaluation. Reports no trauma but has had some falls recently. Uses a cane usually at home but lately has been having trouble due to numbness in her arms.Denies any bowel or bladder changes but does report having bladder fullness. Reason for Physical Therapy Consult : Safety assessment Relevant Past Medical History: cervical myopathy; frequent falls Patient Report: Pt agreeable to PT. Nursing states ok to see pt. 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 OBJECTIVE: CURRENT FUNCTIONAL STATUS: Current Functional Mobility Assist Level Additional Information Rolling Supine to Sit Supervision Sit to Supine (Pt up in chair post session) Scooting Supervision Sit to Stand Minimal Assistance Stand to Sit Minimal Assistance Bed to Chair Minimal Assistance Bed To Chair Transfer Equipment: Wheeled Walker Toilet/Commode Contact Guard Assistance Gait Minimal Assistance Gait Device: Wheeled Walker Gait Distance (feet): 10 x 2 Stairs Curb Step Car Transfer General Gait Deviations: Kamar decreased;Step length decreased;Flexed trunk posture (Increased knee flexion) Balance: Static Sitting;Dynamic Sitting;Static Standing;Dynamic Standing Static Sitting Balance: Independent Dynamic Sitting Balance: Supervision Static Standing Balance: Contact Guard Assistance Dynamic Standing Balance: Minimal Assistance -M: 6: Walk 10 steps or more Please see discipline specific clinical documentation flowsheet for complete details for this therapy evaluation/treatment. SIGNATURE: Tabby Costa PT PATIENT NAME: Sonia Karimi DATE: January 31, 2018 TIME: 3:14 PM Karime Montiel RN, RN 01/31/2018 9:06 PM Addendum Nursing Progress Note Patient Name: Sonia Karimi Patient Location: [facility]2 Daily Note: 1924 Assumed care, report from outgoing RN at the bedside. Call light within reach, bed alarm activated. 2105 VS and assessment as charted. AANDOx3, denies chest pain, SO, headache, dizziness. Reports n/t to BUE and BLE. Pain board reviewed/updated, verbalizes understanding. Call light and possessions within reach. Will continue to monitor. This note was completed by: Karime Montiel RN Previous Version Gila Gonzalez RN, RN 02/01/2018 3:08 AM Addendum Nursing Progress Note Patient Name: Sonia Karimi Patient Location: [facility]2 2345-Bedside report received. Bipap on and running 0020-Pt made NPO. IVF started. Pt AANDOX3, denies chest pain, SOB, or dizziness. Pt c/o numbness/tingling to BUE. Hand grasps, pedal push/pulls are strong and equal. Call light in reach, bed alarm on This note was completed by: Gila Gonzalez RN Previous Version Carlos Dudley PT 02/01/2018 6:15 AM Signed PHYSICAL THERAPY MISSED VISIT SERVICE DATE: 02/01/2018 SERVICE TIME: 612 to 612 ROOM: [place] [address] Attempted Treatment. Patient not seen due to Surgery. Pt on for surgery this date. WIll hold follow up visit and plan for re-evaluation on 02/02/18 post surgical intervention. SIGNATURE: Carlos Dudley PT PATIENT NAME: Sonia Karimi DATE: February 01, 2018 TIME: 6:14 AM Latrice Hayes MD 02/01/2018 8:04 AM Signed AVSS neurologically no changes. Pre op medical clearance Surgery AM 02/02/18 NPO P MN Artem Dow MD 02/01/2018 6:02 PM Signed PROGRESS NOTE - INTERNAL MEDICINE PATIENT NAME: Sonia Karimi ADMITTING PHYSICIAN: Artem Dow SUBJECTIVE INTERVAL HISTORY OF PRESENT ILLNESS: Patient sitting up in bed wanting a shower and something else for neck pain. Currently just has norco at night. Also reports not having a bowel movement since being here but is passing gas. OBJECTIVE PHYSICAL EXAM: BP 131/70 Pulse 64 Temp 36.9 ?C (98.4 ?F) (Oral) Resp 16 Ht 167.6 cm (5' 6) Wt 125.9 kg (277 lb 9 oz) SpO2 99% BMI 44.80 kg/m? Intake/Output Summary (Last 24 hours) at 02/01/18 0819 Last data filed at 02/01/18 0500 Gross per 24 hour Intake 1310 ml Output 250 ml Net 1060 ml GENERAL: Alert, no acute distress, cooperative, obese SKIN: Skin color, texture, turgor normal. No rashes or lesions. NECK: No jugulovenous distention, Supple, decreased ROM LUNGS: Lungs clear to auscultation, Good diaphragmatic excursion CARDIAC: Normal S1 and S2; no rubs, murmurs, or gallops ABDOMEN: Abdomen soft, non-tender, BS normal x4 EXTREMITIES: No LE edema NEURO: AANDOx3, Non-focal sensation intact B?L upper and lower extremities, 5/5 strength upper and lower extremities PULSES: 2+ radial, 2+ carotid DATA: Diagnostic tests reviewed for today's visit: Most recent labs Most recent imaging CBC, Coags, BMP, Mg, Phos Recent Labs 02/01/18 0617 01/31/18 1907 01/30/181942 WBC 10.21 -- 14.93* HB 11.6 -- 12.2 HCT 36.7 -- 37.1 PLT 223 -- 259 APTT -- 25.4 -- NA 138 -- 141 K 4.2 -- 3.5* CHLOR 99 -- 101 CO2 27 -- 25 BUN 20 -- 26* CREAT 0.81 -- 0.92 GLUC 113* -- 164* CA 9.9 -- 9.6 Liver Function, Amylase, AND Lipase Cardiac Enzymes Recent Labs 01/30/181942 CK 102 ASSESSMENT AND PLAN Cervical myopathy [G72.9] - MRI spine: cord compression - Neurosurgery consulted - gabapentin, norco Bladder fullness - check UA for UTI - UA positive for WBC, checking urine culture HTN - c/w amlodipine, maxzide HLD: statin Thyroid mass - noted on MRI - thyroid US: benign nodules Hypokalemia - replete, monitor IRIS - CPAP Obesity DVT prophylaxis - SCDs Surgery was planned today but moved to tomorrow Constipation: added colace Added tylenol and lidocaine patch for pain SIGNATURE: Mandie Aguilar APRN.POWER MULE OPERATOR DATE: February 01, 2018 TIME: 8:19 AM CONTACT #: [phone] I have reviewed the progress note obtained and documented by the Certified Nurse Practitioner, and I personally participated in the rosario components. I have discussed the case and management of the patient's care. The following comments revise or confirm relevant rosario components of the Certified Nurse Practitioner's note. Waiting on being scheduled for OR Artem Dow MD Previous Version Yaritza Hale MD 02/02/2018 11:50 AM Addendum ANESTHESIOLOGY PREOPERATIVE ASSESSMENT SERVICE DATE: 02/01/2018 : 1955 SERVICE TIME: 10:13 AM Surgeon(s): Latrice Hayes Procedure(s) (LRB): DISCECTOMY CERVICAL ANTERIOR WITH FUSION (N/A) Estimated body mass index is 44.8 kg/m? as calculated from the following: Height as of this encounter: 167.6 cm (5' 6). Weight as of this encounter: 125.9 kg (277 lb 9 oz). MOST RECENT HEMATOCRIT AND POTASSIUM RESULTS: Hematocrit 36.7 02/01/2018 Potassium 4.2 02/01/2018 ANES DOS/PREOP NOTE: Vitals: 01/31/18 1622 01/31/18 2056 02/01/18 0038 02/01/18 0752 BP: (!) 109/16 149/54 137/62 131/70 Pulse: 66 81 60 64 Resp: Temp: 37.1 ?C (98.7 ?F) 36.8 ?C (98.3 ?F) 36.7 ?C (98 ?F) 36.9 ?C (98.4 ?F) TempSrc: Oral Oral Oral Oral SpO2: 97% 97% 97% 99% Weight: Height: ACTIVE PROBLEM LIST Essential Hypertension Cervical Polyp Hyperlipidemia Osteoarthritis of Both Knees Sleep Apnea Obesity, Class Iii, Bmi 40-49.9 (Morbid Obesity) (Hcc) Cervical Myopathy Cervical Spondylosis With Myelopathy PAST MEDICAL HISTORY Diagnosis Date - Cervical polyp - COPD (chronic obstructive pulmonary disease) (HCC) - Hyperlipidemia - Hypertension - Minor depression PAST SURGICAL HISTORY Procedure Laterality Date - REMOVAL ADENOIDS,PRIMARY,<12 Y/O Adenoidectomy - REMOVAL OF TONSILS,<12 Y/O Tonsillectomy FAMILY HISTORY Problem Relation Age of Onset - Cancer Father leukemia - Cancer Mother skin cancer - Cancer Paternal Grandfather stomach cancer - Cancer Paternal Grandmother colon to liver - Cancer Sister cancer in situ - breast - Diabetes Father - Diabetes Sister - Heart Mother tachycardia Social History: Social History Substance Use Topics - Smoking status: Former Smoker - Smokeless tobacco: Never Used Comment: Quit smokig 38 years ago - Alcohol use No No current facility-administered medications on file prior to encounter. Current Outpatient Prescriptions on File Prior to Encounter: amLODIPine (NORVASC) 5 mg tablet Take 1 tablet by mouth once daily. atorvastatin (LIPITOR) 10 mg tablet Take 1 tablet by mouth once daily. cholecalciferol (VITAMIN D-3) 2,000 unit tablet Take 2,000 Units by mouth once daily. cloNIDine HCl (CATAPRES) 0.1 mg tablet Take 1 tablet by mouth daily at bedtime. COMPOUNDED PRESCRIPTION BIPAP 1 liter bleed in 12/5 cm. RR 14Replacement machine with heated humidity. CPAP mask and supplies.Use nightly. diclofenac XR (VOLTAREN-XR) 100 mg Tb24 TAKE 1 TABLET DAILY WITH FOOD gabapentin (NEURONTIN) 100 mg capsule TAKE 2 CAPSULES BY MOUTH TWICE A DAY [id number] D3 ORAL Take 3 tablets by mouth once daily. HYDROcodone-acetaminophen (NORCO) 5-325 mg per tablet Take 1 tablet by mouth at bedtime as needed for up to 30 days.Earliest Fill Date: 08/29/17 HYDROcodone-acetaminophen (NORCO) 5-325 mg per tablet Take 1 tablet by mouth at bedtime as needed for up to 30 days. MULTIVIT WITH IRON-MINERALS (MULTIVITAMIN AND MINERALS ORAL) Take 1 tablet by mouth once daily. predniSONE (DELTASONE) 10 mg tablet Please take 3 pills twice daily for 3 days, then 2 pills twice daily for 3 days, then 1 pill twice daily for 3 days, then 1 pill daily till gone. (Patient not taking: Reported on 01/30/2018 ) sertraline (ZOLOFT) 100 mg tablet Take 1 tablet by mouth once daily. triamterene-hydrochlorothiazide 37.5-25 mg per capsule Take 1 capsule by mouth once daily. Current Facility-Administered Medications: acetaminophen 1,000 mg tab(s) (TYLENOL) 1,000 mg ORAL q 6 H PRN Artem P Paloma acetaminophen 650 mg tab(s) (TYLENOL) 650 mg ORAL q 4 H PRN Mandie (Instrument Adjuster.Scale Reclamation Tender) Jeff amLODIPine 2.5 mg tab(s) (NORVASC) 2.5 mg ORAL DAILY Artem P Paloma atorvastatin 10 mg tab(s) (LIPITOR) 10 mg ORAL DAILY Mandie (Instrument Adjuster.Scale Reclamation Tender) Jeff 10 mg at 01/31/18 1146 cloNIDine HCl 0.1 mg tab(s) (CATAPRES) 0.1 mg ORAL AT BEDTIME Artem P Paloma 0.1 mg at 01/31/18 2100 docusate sodium 100 mg cap(s) (COLACE) 100 mg ORAL BID Mandie (Instrument Adjuster.Scale Reclamation Tender) Jeff gabapentin 200 mg cap(s) (NEURONTIN) 200 mg ORAL BID Artem P Paloma 200 mg at 01/31/18 2100 HYDROcodone 5 mg - acetaminophen 325 mg tablet (NORCO) 1 tablet ORAL HS PRN Artem P Paloma 1 tablet at 01/31/18 2100 lidocaine - VERIFY PATCH OTHER q 8 H Mandie (Instrument Adjuster.Scale Reclamation Tender) Jeff lidocaine 5 % 1 Patch (LIDODERM) 1 Patch TRANSDERMAL DAILY Mandie (Instrument Adjuster.Scale Reclamation Tender) Jeff lidocaine patch - REMOVE OTHER AT BEDTIME Mandie (Instrument Adjuster.Scale Reclamation Tender) Jeff NaCl 0.9% iv infusion 75 mL/hr INTRAVENOUS CONTINUOUS [place] (Res) Symonememikayla Last Rate: 75 mL/hr at 02/01/18 0018 75 mL/hr at 02/01/18 0018 sertraline 100 mg tab(s) (ZOLOFT) 100 mg ORAL DAILY (8 PM) Artem P Paloma 100 mg at 01/31/182110 Allergies: ALLERGIES Allergen Reactions - Ativan [Lorazepam] Hives - Neosporin [Benzalko* Rash REVIEW OF SYSTEMS: REVIEW OF SYSTEMS: As stated in Active Problem List/ Past Medical History ANESTHESIOLOGY REVIEW: Airway Assessment: MP 1; Neck ROM: Limited Extension and Parasthesia with Flexion and Extension (bilateral upper and lower extremity numbness); Airway Evaluation: No significant abnormalities Symptoms of Sleep Apnea: IRIS, uses biPAP Intubation History: No previous history of difficult intubation Dentition: Missing tooth several molars ADDITIONAL PHYSICAL EXAM: Lungs: Patient health status unchanged since recent history and physical. See history and physical for exam findings. Cardiac: Patient health status unchanged since recent history and physical. See history and physical for exam findings. Additional Pertinent Findings: N/A ADVERSE ANESTHESIA EVENT: No history of adverse event FAMILY HIISTORY OF ANESTHESIA: No known issues BLOOD PRODUCTS: Will accept Blood/Blood Products OTHER MEDICAL PROBLEMS: pt morbidly obese, pt has a hx of mild aortic stenosis on ECHO from 2014. Primary care dr ordered yearly follow-up, pt noncompliant. Dr Goncalves said it's ok to proceed without follow-up Echo. Pt stopped 2-week trial of prednisone on Monday. I have interviewed and examined the patient. I have reviewed the medical record and/or the pre-anesthesia evaluation, pertinent labs, and test results. Significant changes in the patient's condition since the History and Physical, not otherwise documented in primary service progress notes: No Anesthetic risks, benefits, alternatives, personnel and consent discussed: Yes ANES REVIEW: This contains updated information obtained within 48 hours of Surgery/Procedure. WBC (k/uL) Date Value 02/01/2018 10.21 RBC (m/uL) Date Value 02/01/2018 4.39 Hemoglobin (g/dL) Date Value 02/01/2018 11.6 Hematocrit (%) Date Value 02/01/2018 36.7 MCV (fL) Date Value 02/01/2018 83.6 MCH (pG) Date Value 02/01/2018 26.4 MCHC (g/dL) Date Value 02/01/2018 31.6 RDW-CV (%) Date Value 02/01/2018 13.7 Platelet Count (k/uL) Date Value 02/01/2018 223 MPV (fL) Date Value 02/01/2018 9.5 Glucose (mg/dL) Date Value 02/01/2018 113 (H) BUN (mg/dL) Date Value 02/01/2018 20 Creatinine (mg/dL) Date Value 02/01/2018 0.81 Sodium (mmol/L) Date Value 02/01/2018 138 Potassium (mmol/L) Date Value 02/01/2018 4.2 Chloride (mmol/L) Date Value 02/01/2018 99 CO2 (mmol/L) Date Value 02/01/2018 27 Calcium (mg/dL) Date Value 02/01/2018 9.9 EKG: Procedure Date : Jan 31 2018 18:50:24 Edit Date : Feb 01 2018 09:41:50 Diagnosis:SINUS RHYTHM WITH MARKED SINUS ARRYTHMIA OTHERWISE NORMAL ECG WHEN COMPARED WITH ECG OF 16-FEB-2004 10:32, NO SIGNIFICANT CHANGE WAS FOUND Confirmed by NERISSA CARMICHAEL M.D. ([id number]) on 02/01/2018 9:41:48 AM Ventricular Rate : 69 ?BPM Atrial Rate : 69 ?BPM ECHO: pending CONCLUSIONS: - Technically difficult exam due to body habitus. - Exam indication: Routine surveillance of valve stenosis - The left ventricle is normal in size.Left ventricular systolic function is hyperdynamic. EF = 75 ? 5% (2D biplane) Baseline left ventricular diastolic function is consistent with abnormal relaxation (stage 1). - The right ventricle is normal in size. Right ventricular systolic function is normal. - The left atrial cavity is mildly dilated. (39 cc/m?) - There is mild aortic stenosis (Vmax 2.1 m/s) - Prior echocardiogram performed on 04/09/2012. No significant change. ? ATURE: BARB Chand PATIENT NAME: Sonia Karimi DATE: February 01, 2018 TIME: 10:13 AM PAGER/CONTACT #: Previous Version Mamie Lema RN, RN 02/01/2018 4:59 PM Addendum Nursing Progress Note Patient Name: Sonia Karimi Patient Location: [place] [address]/[facility]-466-2 Daily Note:0745 Pt alert and oriented X 3. States pain to posterior neck. Dr. Hayes and JADE Ashley in. Deferred to attending. Pt states N/T to BUE and BLE. NPO for OR. Assessment as charted. This note was completed by: Mamie Lema RN 0810 Pt seen by Adry Morin CNP. Orders received. 1043 Medicated with 1000 mg tylenol for posterior neck pain. 1643 Medicated with 1000 mg Tylenol. No change in assessment. Previous Version Ivana Ward RN, RN 02/01/2018 2:02 PM Signed CARE MANAGEMENT PROGRESS NOTE SERVICE DATE: 02/01/2018 SERVICE TIME: 2:00 PM LOS: 2 days FREEDOM OF CHOICE GIVEN: Yes 02/01/2018 Financial Disclosure Provided The patient and/or family has been given the Provider List: Yes Provider List: Rehab Facility Met with patient at bedside. Discussed possible discharge needs. Patient states she does not want to go to rehab facility and prefers to go home with home therapy. Patient states she has family that can assist her at home. Surgery is planned for tomorrow and will need therapy evaluations post op. Referral sent to [facility] due to insurance. Will follow. SIGNATURE: Ivana Ward RN PATIENT NAME: Sonia Karimi DATE: February 01, 2018 TIME: 2:00 PM PAGER/CONTACT #: [phone] BARB Estevez 02/01/2018 3:19 PM Attested Attestation signed by Clevelandsissy Gaona IV at 02/01/2018 4:22 PM Staff Note I have reviewed pertinent medical records/tests regarding this patient. Agree with the anesthesia provider's assessment and plan. Jadon Adam Gaona IV, DO February 01, 2018 4:22 PM ANESTHESIOLOGY PREOPERATIVE ASSESSMENT SERVICE DATE: 02/01/2018 : 1955 SERVICE TIME: 1520 Surgeon(s): Latrice Hayes Procedure(s) (LRB): DISCECTOMY CERVICAL ANTERIOR WITH FUSION (N/A) Estimated body mass index is 44.8 kg/m? as calculated from the following: Height as of this encounter: 167.6 cm (5' 6). Weight as of this encounter: 125.9 kg (277 lb 9 oz). MOST RECENT HEMATOCRIT AND POTASSIUM RESULTS: Hematocrit 36.7 02/01/2018 Potassium 4.2 02/01/2018 CBC with diff: WBC 10.21 02/01/2018 RBC 4.39 02/01/2018 Hemoglobin 11.6 02/01/2018 Hematocrit 36.7 02/01/2018 MCV 83.6 02/01/2018 MCH 26.4 02/01/2018 MCHC 31.6 02/01/2018 RDW-CV 13.7 02/01/2018 Platelet Count 223 02/01/2018 MPV 9.5 02/01/2018 Neut% 73.1 02/01/2018 Lymph% 17.1 02/01/2018 Brown% 6.6 02/01/2018 Eosin% 2.9 02/01/2018 Baso% 0.3 02/01/2018 Abs Neut (ANC) 7.46 02/01/2018 Abs Brown 0.67 02/01/2018 Abs Eosin 0.30 02/01/2018 Abs Baso 0.03 02/01/2018 Glucose (mg/dL) Date Value 02/01/2018 113 Potassium (mmol/L) Date Value 02/01/2018 4.2 Sodium (mmol/L) Date Value 02/01/2018 138 Chloride (mmol/L) Date Value 02/01/2018 99 CO2 (mmol/L) Date Value 02/01/2018 27 Creatinine (mg/dL) Date Value 02/01/2018 0.81 BUN (mg/dL) Date Value 02/01/2018 20 Anion Gap (mmol/L) Date Value 02/01/2018 12 Calcium (mg/dL) Date Value 02/01/2018 9.9 ANES DOS/PREOP NOTE: Vitals: 01/31/18 1622 01/31/18 2056 02/01/18 0038 02/01/18 0752 BP: (!) 109/16 149/54 137/62 131/70 Pulse: 66 81 60 64 Resp: Temp: 37.1 ?C (98.7 ?F) 36.8 ?C (98.3 ?F) 36.7 ?C (98 ?F) 36.9 ?C (98.4 ?F) TempSrc: Oral Oral Oral Oral SpO2: 97% 97% 97% 99% Weight: Height: ACTIVE PROBLEM LIST Essential Hypertension Cervical Polyp Hyperlipidemia Osteoarthritis of Both Knees Sleep Apnea Obesity, Class Iii, Bmi 40-49.9 (Morbid Obesity) (Hcc) Cervical Myopathy Cervical Spondylosis With Myelopathy PAST MEDICAL HISTORY Diagnosis Date - Cervical polyp - COPD (chronic obstructive pulmonary disease) (HCC) - Hyperlipidemia - Hypertension - Minor depression PAST SURGICAL HISTORY Procedure Laterality Date - REMOVAL ADENOIDS,PRIMARY,<12 Y/O Adenoidectomy - REMOVAL OF TONSILS,<12 Y/O Tonsillectomy FAMILY HISTORY Problem Relation Age of Onset - Cancer Father leukemia - Cancer Mother skin cancer - Cancer Paternal Grandfather stomach cancer - Cancer Paternal Grandmother colon to liver - Cancer Sister cancer in situ - breast - Diabetes Father - Diabetes Sister - Heart Mother tachycardia Social History: Social History Substance Use Topics - Smoking status: Former Smoker - Smokeless tobacco: Never Used Comment: Quit smokig 38 years ago - Alcohol use No No current facility-administered medications on file prior to encounter. Current Outpatient Prescriptions on File Prior to Encounter: amLODIPine (NORVASC) 5 mg tablet Take 1 tablet by mouth once daily. atorvastatin (LIPITOR) 10 mg tablet Take 1 tablet by mouth once daily. cholecalciferol (VITAMIN D-3) 2,000 unit tablet Take 2,000 Units by mouth once daily. cloNIDine HCl (CATAPRES) 0.1 mg tablet Take 1 tablet by mouth daily at bedtime. COMPOUNDED PRESCRIPTION BIPAP 1 liter bleed in 12/5 cm. RR 14Replacement machine with heated humidity. CPAP mask and supplies.Use nightly. diclofenac XR (VOLTAREN-XR) 100 mg Tb24 TAKE 1 TABLET DAILY WITH FOOD gabapentin (NEURONTIN) 100 mg capsule TAKE 2 CAPSULES BY MOUTH TWICE A DAY [id number] D3 ORAL Take 3 tablets by mouth once daily. HYDROcodone-acetaminophen (NORCO) 5-325 mg per tablet Take 1 tablet by mouth at bedtime as needed for up to 30 days.Earliest Fill Date: 08/29/17 HYDROcodone-acetaminophen (NORCO) 5-325 mg per tablet Take 1 tablet by mouth at bedtime as needed for up to 30 days. MULTIVIT WITH IRON-MINERALS (MULTIVITAMIN AND MINERALS ORAL) Take 1 tablet by mouth once daily. predniSONE (DELTASONE) 10 mg tablet Please take 3 pills twice daily for 3 days, then 2 pills twice daily for 3 days, then 1 pill twice daily for 3 days, then 1 pill daily till gone. (Patient not taking: Reported on 01/30/2018 ) sertraline (ZOLOFT) 100 mg tablet Take 1 tablet by mouth once daily. triamterene-hydrochlorothiazide 37.5-25 mg per capsule Take 1 capsule by mouth once daily. Current Facility-Administered Medications: acetaminophen 1,000 mg tab(s) (TYLENOL) 1,000 mg ORAL q 6 H PRN Artem P Paloma 1,000 mg at 02/01/18 1043 acetaminophen 650 mg tab(s) (TYLENOL) 650 mg ORAL q 4 H PRN Mandie (Instrument Adjuster.Scale Reclamation Tender) Jeff amLODIPine 2.5 mg tab(s) (NORVASC) 2.5 mg ORAL DAILY Artem P Paloma 2.5 mg at 02/01/18 1044 atorvastatin 10 mg tab(s) (LIPITOR) 10 mg ORAL DAILY Mandie (Instrument Adjuster.Scale Reclamation Tender) Jeff 10 mg at 02/01/18 1044 cloNIDine HCl 0.1 mg tab(s) (CATAPRES) 0.1 mg ORAL AT BEDTIME Artem P Paloma 0.1 mg at 01/31/18 2100 docusate sodium 100 mg cap(s) (COLACE) 100 mg ORAL BID Mandie (Instrument Adjuster.Scale Reclamation Tender) Jeff 100 mg at 02/01/18 1044 gabapentin 200 mg cap(s) (NEURONTIN) 200 mg ORAL BID Artem P Paloma 200 mg at 02/01/18 1044 HYDROcodone 5 mg - acetaminophen 325 mg tablet (NORCO) 1 tablet ORAL HS PRN Artem P Paloma 1 tablet at 01/31/18 2100 lidocaine - VERIFY PATCH OTHER q 8 H Mandie (Instrument Adjuster.Scale Reclamation Tender) Jeff lidocaine 5 % 1 Patch (LIDODERM) 1 Patch TRANSDERMAL DAILY Mandie (Instrument Adjuster.Scale Reclamation Tender) Jeff 1 Patch at 02/01/18 1041 lidocaine patch - REMOVE OTHER AT BEDTIME Mandie (Instrument Adjuster.Scale Reclamation Tender) Jeff NaCl 0.9% iv infusion 75 mL/hr INTRAVENOUS CONTINUOUS [place] (Nikkie Ramirez Last Rate: 75 mL/hr at 02/01/18 1446 75 mL/hr at 02/01/18 1446 sertraline 100 mg tab(s) (ZOLOFT) 100 mg ORAL DAILY (8 PM) Artem P Paloma 100 mg at 01/31/18 2111 Allergies: ALLERGIES Allergen Reactions - Ativan [Lorazepam] Hives - Neosporin [Benzalko* Rash REVIEW OF SYSTEMS: REVIEW OF SYSTEMS: As stated in Active Problem List/ Past Medical History ANESTHESIOLOGY REVIEW: Airway Assessment: MP 1; Neck ROM: Limited Flexion and Extension and Parasthesia with Flexion and Extension; Airway Evaluation: Short Neck and Thick neck Symptoms of Sleep Apnea: IRIS Intubation History: No previous history of difficult intubation Dentition: Missing tooth multiple molars ADDITIONAL PHYSICAL EXAM: Lungs: Patient health status unchanged since recent history and physical. See history and physical for exam findings. Cardiac: Patient health status unchanged since recent history and physical. See history and physical for exam findings. Additional Pertinent Findings: N/A ADVERSE ANESTHESIA EVENT: No history of adverse event FAMILY HIISTORY OF ANESTHESIA: No known issues BLOOD PRODUCTS: Will accept Blood/Blood Products OTHER MEDICAL PROBLEMS: Pt stopped steroids about 2 weeks ago I have interviewed and examined the patient. I have reviewed the medical record and/or the pre-anesthesia evaluation, pertinent labs, and test results. Significant changes in the patient's condition since the History and Physical, not otherwise documented in primary service progress notes: No Anesthetic risks, benefits, alternatives, personnel and consent discussed: Yes ANES REVIEW: This contains updated information obtained within 48 hours of Surgery/Procedure. EKG CONCLUSIONS: - Technically difficult exam due to body habitus. - Exam indication: Routine surveillance of valve stenosis - The left ventricle is normal in size.Left ventricular systolic function is hyperdynamic. EF = 75 ? 5% (2D biplane) Baseline left ventricular diastolic function is consistent with abnormal relaxation (stage 1). - The right ventricle is normal in size. Right ventricular systolic function is normal. - The left atrial cavity is mildly dilated. (39 cc/m?) - There is mild aortic stenosis (Vmax 2.1 m/s) - Prior echocardiogram performed on 04/09/2012. No significant change. ? EKG NAME : SONIA KARIMI PID : [id number] : 1955 Gender : Female Race : ORD : [id number] ? Procedure Date : Jan 31 2018 18:50:24 Edit Date : Feb 01 2018 09:41:50 ? Diagnosis:SINUS RHYTHM WITH MARKED SINUS ARRYTHMIA OTHERWISE NORMAL ECG WHEN COMPARED WITH ECG OF 16-FEB-2004 10:32, NO SIGNIFICANT CHANGE WAS FOUND Confirmed by NERISSA CARMICHAEL M.D. ([id number]) on 02/01/2018 9:41:48 AM ? Ventricular Rate : 69 ?BPM Atrial Rate : 69 ?BPM P-R Interval : 152 ?ms QRS Duration : 80 ?ms Q-T Interval : 390 ?ms QTC Calculation(Bezet) : 417 ?ms P [employer] : 74 ?degrees R [employer] : 42 ?degrees T [employer] : 36 ?degrees ? Test Reason : Pre OP ? Location : 124 : 4B L ?466 ? Overread By : NERISSA CARMICHAEL M.D. Edited By : NERISSA CARMICHAEL M.D. Referred By : ARTEM DOW Acquired by : VENU HILLIARD SIGNATURE: BARB Estevez PATIENT NAME: Sonia Karimi DATE: February 01, 2018 TIME: 3:16 PM PAGER/CONTACT #: Peg Duran RN, RN 02/02/2018 12:26 AM Addendum Nursing Progress Note Patient Name: Sonia Karimi Patient Location: [place] [address] [address]- Daily Note: 1952 Pt up to the chair, up with assist x2. Assessment performed and documented at this time. Pt reports chronic numbness and tingling to her all extremities. Safety measures reviewed with Pt, call light within a reach, will continue to monitor. 0000 Prior assessment unchanged, Pt made NPO to procedure in AM. IV fluids infusing, Pt resting, will continue to monitor. This note was completed by: Peg Duran RN Previous Version Ashlee Marie PT 02/02/2018 7:42 AM Incomplete Physical Therapy Re-Evaluation SERVICE DATE: 02/02/2018 SERVICE TIME: 612 to 06 [address]OM: [address] Recommended Discharge Disposition: Acute Rehab Recommended Discharge Disposition Comments: Rec AR to maximize functional mobility and safety Justification For Post Acute Needs: Anticipate that patient will require daily (5x/wk) skilled therapy in a post-acute facility setting at the time of acute hospital discharge;Anticipate patient will tolerate 3 hours of daily therapy at the time of admission to post-acute setting Recommended Discharge Equipment: No equipment needs anticipated PT Recommendations to Nursing: Ambulate with device;Transfer to/from chair;OOB for Meals;With assist of 2 people Device: Wheeled Walker PT 6 Clicks Score: 19 Precautions/Activity Restrictions: Fall Risk ASSESSMENT : Patient presents with . Requires skilled PT for . Patient Disposition at Start of Session: Supine in Bed;Call Daniel in Reach Patient Disposition at End of Session: OOB in Chair;Call Daniel in Reach (RN states no need for chair alarm ) Tolerated Full Session Physical Therapy Problem List: Balance Impaired;Functional Mobility Impairment;Decreased Strength;Decreased Range Of Motion;Decreased Activity Tolerance;Impaired Self Care;Safety Deficits;Pain Patient /Caregiver Goals: Go Home Goals for Plan of Care: Able to perform HEP with: Verbal Cues Only Transfer supine to/from sit with: Modified Independent Transfer sit to/from stand with: Modified Independent Ambulate with: Modified Independent Distance: 50 Device: Wheeled Walker Ambulate up and down steps with: Contact Guard Assistance Number of steps: 3 Device: Rail Transfer: All functional transfers with mod I Rehab Potential: Good PLAN: Treatment Frequency (times per week): 7 Treatment Duration (number): (as able LOS) Current admission Treatment Interventions: Education;Self Care / Home Management;Energy Conservation Training;Joint Mobility;Strengthening;Functional Mobility Training;Balance Training;Neuromuscular Re-education Plan of Care developed with: Patient TREATMENT INTERVENTIONS: Therapy Diagnosis: Reduced mobility-other;Decreased activities of daily living (ADL);Muscle Weakness (generalized) Interventions Provided: Evaluation;Therapeutic Activity (42239);Gait Training (79481) {Physical Therapy Interventions:855624} Total Timed Code Treatment Minutes: 23 Total Treatment Time (minutes): 30 {PT GCODE:880675} SUBJECTIVE: Current Hospital Course: Pt is a 62 yo female with progressive cervical myelopathy over last 2 weeks, unable to use arms/hands. Deltoid 2/5, left biceps tricep 2/5, right biceps triceps 3/5, hand intrinsics 2/5. ? 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 Pt is now POD #1 ACDF C3-4. 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 OBJECTIVE: CURRENT FUNCTIONAL STATUS: Current Functional Mobility Assist Level Additional Information Rolling Supine to Sit Supervision Sit to Supine (Pt up in chair post session) Scooting Supervision Sit to Stand Minimal Assistance Stand to Sit Minimal Assistance Bed to Chair Minimal Assistance Bed To Chair Transfer Equipment: Wheeled Walker Toilet/Commode Contact Guard Assistance Gait Minimal Assistance Gait Device: Wheeled Walker Gait Distance (feet): 10 x 2 Stairs Curb Step Car Transfer General Gait Deviations: Kamar decreased;Step length decreased;Flexed trunk posture (Increased knee flexion) Balance: Static Sitting;Dynamic Sitting;Static Standing;Dynamic Standing Static Sitting Balance: Independent Dynamic Sitting Balance: Supervision Static Standing Balance: Contact Guard Assistance Dynamic Standing Balance: Minimal Assistance -HLM: 6: Walk 10 steps or more Please see discipline specific clinical documentation flowsheet for complete details for this therapy evaluation/treatment. SIGNATURE: Ashlee Marie PT PATIENT NAME: Sonia Karimi DATE: February 02, 2018 TIME: 7:42 AM Mamie Lema RN, RN 02/02/2018 11:42 AM Addendum Nursing Progress Note Patient Name: Sonia Karimi Patient Location: [place] [address] [address]2 Daily Note:0834 Pt alert and oriented X 3. States posterior neck pain 8-9. Medicated with 1000 mg tylenol with sips H2O. Continues to c/o numbness and tingling to BUE and BLE. Gait unsteady. Using BSC with assist for voids.IV fluids infusing. Assessment as charted. This note was completed by: Mamie Lema RN 2746 Report given to Delilah in tianna-op. 1135 Out via bed to tianna-op. Previous Version Latrice Hayes MD 02/02/2018 11:17 AM Signed UPDATED HISTORY AND PHYSICAL EXAMINATION SERVICE DATE: 02/02/2018 SERVICE TIME: 11:17 AM PHYSICAL EXAM MUST BE COMPLETED ON ADMISSION The History and Physical (completed in the past 30 days) has been reviewed and the patient has been examined. The contents accurately reflect the patient's condition with the following additions or revisions since the HANDP was completed. Examination indicates no changes. This HANDP can be found in the attached. SIGNATURE: Latrice Hayes MD PATIENT NAME: Sonia Karimi DATE: February 02, 2018 TIME: 11:17 AM PAGER:[phone] Yaritza Hale MD 02/02/2018 11:52 AM Signed I attest the above information is accurate including: Chronic Beta Sherine medication administered within 24 hours: N/A Adequate NPO status: Yes Anesthetic risks, benefits, alternatives, personnel and consent discussed. Yes Patient agrees to proceed. Yes Pain Management Plan: Parenteral or Oral ASA Class: 3 Anesthetic Plan: General; Standard ASA Monitors Additional comments: Yaritza Hale MD February 02, 2018 Ashlee Marie PT 02/02/2018 11:52 AM Signed PHYSICAL THERAPY MISSED VISIT SERVICE DATE: 02/02/2018 SERVICE TIME: 1140 to 1140 ROOM: [place] [address] Attempted Treatment. Patient not seen due to Surgery. Pt currently off the floor for Sx. Another attempt will be made to see this pt tomorrow for PT Re-Eval if pt is appropriate and as schedule allows. SIGNATURE: Ashlee Marie PT PATIENT NAME: Sonia Karimi DATE: February 02, 2018 TIME: 11:51 AM Artem Dow MD 02/02/2018 12:03 PM Signed PROGRESS NOTE - INTERNAL MEDICINE PATIENT NAME: Sonia Karimi ADMITTING PHYSICIAN: Artem Dow SUBJECTIVE INTERVAL HISTORY OF PRESENT ILLNESS: Patient sitting up in bed. Reports lidocaine patch and tylenol has helped her pain. Reports having a BM and waiting to have surgery around 11 am. OBJECTIVE PHYSICAL EXAM: BP 162/77 Pulse 64 Temp (!) 7 ?C (44.6 ?F) Resp 16 Ht 167.6 cm (5' 6) Wt 125.9 kg (277 lb 9 oz) SpO2 98% BMI 44.80 kg/m? Intake/Output Summary (Last 24 hours) at 02/02/18 1159 Last data filed at 02/02/18 1100 Gross per 24 hour Intake 2130 ml Output 225 ml Net 1905 ml GENERAL: Alert, no acute distress, cooperative, obese SKIN: Skin color, texture, turgor normal. No rashes or lesions. NECK: No jugulovenous distention, Supple, decreased ROM LUNGS: Lungs clear to auscultation, Good diaphragmatic excursion CARDIAC: Normal S1 and S2; no rubs, murmurs, or gallops ABDOMEN: Abdomen soft, non-tender, BS normal x4 EXTREMITIES: No LE edema NEURO: AANDOx3, Non-focal sensation intact B?L upper and lower extremities, 5/5 strength upper and lower extremities PULSES: 2+ radial, 2+ carotid DATA: Diagnostic tests reviewed for today's visit: Most recent labs Most recent imaging CBC, Coags, BMP, Mg, Phos Recent Labs 02/02/18 0421 02/01/18 0617 01/31/18 1907 01/30/181942 WBC 10.52 10.21 -- 14.93* HB 11.3* 11.6 -- 12.2 HCT 35.7* 36.7 -- 37.1 PLT 235 223 -- 259 INR 0.9 -- -- -- APTT -- -- 25.4 -- NA 139 138 -- 141 K 3.9 4.2 -- 3.5* CHLOR 102 99 -- 101 CO2 25 27 -- 25 BUN 18 20 -- 26* CREAT 0.75 0.81 -- 0.92 GLUC 101* 113* -- 164* CA 9.6 9.9 -- 9.6 Liver Function, Amylase, AND Lipase Cardiac Enzymes Recent Labs 01/30/181942 CK 102 ASSESSMENT AND PLAN Cervical myopathy [G72.9] - MRI spine: cord compression - Neurosurgery consulted - gabapentin, norco - tylenol and lidocaine patch Bladder fullness - check UA for UTI - UA positive for WBC, checking urine culture HTN - c/w amlodipine, maxzide HLD: statin Thyroid mass - noted on MRI - thyroid US: benign nodules Hypokalemia - replete, monitor constipation - c/w colace IRIS - CPAP Obesity DVT prophylaxis - SCDs ? Surgery was planned today SIGNATURE: Mandie Aguilar APRN.CNP DATE: February 02, 2018 TIME: 11:59 AM CONTACT #: [phone] I have reviewed the progress note obtained and documented by the Certified Nurse Practitioner, and I personally participated in the rosario components. I have discussed the case and management of the patient's care. The following comments revise or confirm relevant rosario components of the Certified Nurse Practitioner's note. Artem Dow MD Previous Version Jose Dale OT/L 02/02/2018 12:01 PM Signed OCCUPATIONAL THERAPY MISSED VISIT SERVICE DATE: 02/02/2018 SERVICE TIME: 1200 to 1201 ROOM: SURG OR POOL (HL Pre/Post 15) Attempted Evaluation (Re-Evaluation). Patient not seen due to Surgery (patient off floor for s/x at this time. ). OT will re-attempt Re-Evaluation as appropriate. Thank you. SIGNATURE: Jose Dale OT/L PATIENT NAME: Sonia Karimi DATE: February 02, 2018 TIME: 12:01 PM Progress Notes ([facility]): Ramirez Miranda MD 01/30/2018 3:53 PM Signed Physical Medicine Clinic Followup SUBJECTIVE: Sonia Karimi a 62 year old White female presents to [facility] Pain Management Department for a followup appointment for Patient presents with: Pain: neck with radiation into arms, and bilateral legs At the last visit the following plan of care was recommended PLAN: 1) Above discussed at length with patient. 2) Start prednisone 60 daily tapering off over 12 days. Advised stimulation effects corticosteroid and advise ranitidine bid while on. 3) Should start to improve 24 hours. If not improving or getting worse, patient advised to go directly to ER for emergent evaluation 4) Will order xray cerv spine and shoulder, and attempt to arrange MRI. 5) refill hs norco 6) Hold off on exercise program. When stable will need physical/occupational therapy 7) RTC 2 weeks. Reiterated need to seek immediate medical attention if leg weakness or arms getting weaker ?. Compared to last visit worse. The pain is located neck and radiates to bilateral upper extremities along anterior aspect and posterior aspect to the level of fingers Started 3 months ago, was not directly related to trauma, and symptoms have been worsening. Characterized as radiating and sharp Currently the pain is a rated at a 6 on a scale of 0-10. Worst pain score is rated at 10 on a scale of 0-10. Best pain score is rated at 6 on a scale of 0-10. Aggravated by standing, getting up from sitting and walking. Mitigated by lying down and medications. Radiation:Yes: REVIEW OF SYSTEMS: GENERAL: No weight loss, malaise or fevers. HEENT: Negative for frequent or significant headaches NECK: positive for neck pain. RESPIRATORY: Negative for cough, wheezing or shortness of breath. CARDIOVASCULAR: Negative for chest pain, leg swelling or palpitations. GI: Negative for abdominal discomfort, blood in stools or black stools or change in bowel habits MUSCULOSKELETAL: positive for joint pain SKIN: Negative for lesions, rash, and itching. PSYCH: Negative for sleep disturbance, mood disorder and recent psychosocial stressors. HEMATOLOGY/LYMPHOLOGY Negative for prolonged bleeding, bruising easily or swollen nodes. NEURO: No history of headaches, syncope, paralysis, seizures or tremors All other reviewed and negative other than HPI. Does the patient feel safe at home Yes Marybeth Gooden RN I have seen and examined the patient and confirmed the above.? The HPI was explored in detail with the patient. OBJECTIVE: BP 152/79 Pulse 84 Resp 18 Ht 5' 6 (1.68m) Wt 280 lb (127.0kg) BMI 45.21 kg/(m2). PHYSICAL EXAMINATION: General appearance: Well appearing, in no acute distress, alert Skin: Skin color, texture, turgor normal, no rashes or lesions Cardiac: RRR, no edema Respiratory: Respirations even and non-labored. GI: Abdomen soft and non-tender. Musculoskeletal: Neck: Pain to palpation over the cervical paraspinous muscles. Spurling positive bilateral. Llhermitte's negative. Pain with neck flexion, extension, and lateral flexion. Worst is extension with radiating pain Back: Straight leg raising in the sitting and supine positions is negative to radicular pain. Mild pain to palpation over the spine or costovertebral angles. Normal range of motion without pain reproduction Extremities: Peripheral joint ROM is full and pain free without obvious instability or laxity in all four extremities, except left shoulder. Decreased active and passive motion left shoulder with impingement. Hip, sacroiliac provocative maneuvers are negative. Bony and synovial changes bilateral knees Neuro: Cranial nerves wnl. L shoulder/elbow/wrist/hands <3/5, R side 3/5. LEs 3-4/5. No clonus. Sensory loss most severe C6-7 bilateral. Reflexes dimiinished in uppers. Able to get up with walker. ASSESSMENT: 62 year old female with declining neuro status, cervical myelopathy. Worse over 2 weeks despite Prednisone 60 tapering Underlying DDD lumbar, DJD knees, obesity PLAN: 1) Reviewed history - fall 3 weeks ago and hit face, then seen here 01/16. Xray with flexion extension views did show translation with flex/ext. CT scan 01/29 in ER showed no fracture, + stenosis 2) Concern for significant and relatively rapid neuro decline. Patient needs MRI and neurosurgery opinion within next 24-48 hours - lengthy discussion with patient and niece. Recommended [facility] or [facility]. 3) Spoke with Dr Kim Neurosurgery, recommend MRI cervical spine without. Discussed with Dr Dow for direct admission - trying to arrange - if unable patient will go to ER. 4) Followup PRN The above plan and management options were discussed at length with patient. Patient is in agreement with the above and verbalized understanding. Ramirez Miranda MD January 30, 2018 Previous Version Ramirez Miranda MD 01/30/2018 3:51 PM Signed You have had decline in your neurologic condition over few weeks time. I am very concerned about worsening weakness and numbness with potential for irreversible damage. On that basis recommend hospital admission where neurosurgery immediately available if needed. DISCHARGE INSTRUCTION Observed: 01/29/2018 Status: F Source: [place] 10:17 AM [facility] [place] [facility] Medical Records Department [facility] [place] [address] Discharge Instruction 01/29/18 1016 MR#: [id number] Acct: [id number] Name: SONIA KARIMI Rep #: [id number] : 1955 62 From: Jarett Eden MD PCP: [facility] Status: REG ER ED Disposition - Plan for ED Patient: Disposition: Home or Assisted Living Chief Complaint: Other, Pain/Inj Instructions: ED Cervical Radiculopathy Referrals: [facility] Doctor,Out of [Primary Care Provider] - What to do if you have Problems For any increased pain, shortness of breath, bleeding, nausea or vomiting, chest pain, or any unexpected problems, contact your Primary Care Provider. Call [facility] ([phone]) or report to the closest Emergency Room. Call 911 if necessary. 01/29/18 1017 <Electronically signed by Jarett Eden MD> Date Jarett Eden MD Cosigner Signature (If Indicated): Date CC: GISELA GAR; OUT OF TOWN DOCTOR EMERGENCY DEPARTMENT Observed: 01/29/2018 Status: F Source: [place] SUMMARY 10:16 AM [facility] [place] [facility] Medical Records Department [address] [place] [address] Emergency Department Summary 01/29/18 0851 MR#: [id number] Acct: [id number] Name: SNOIA KARIMI Rep #: [id number] : 1955 62 From: Jarett Eden MD PCP: OUT OF TOWN DOCTOR Status: REG ER - ER Visit Summary Date of Service: 01/29/18 Chief Complaint: Neck pain/bilateral upper arm weakness History of Present Illness: The patient is a 62 F who presents with the above symptoms. She states for the past 3 weeks she has had pain in her neck and had some weakness and numbness of her hands and arms. She saw a rehabilitation physician in [place]. He prescribed her prednisone and ordered outpatient x-rays. She states the x-rays read some arthritis at C3 and C4. She finished the prednisone yesterday and she states that the sensation is better in her arms but she still feels weak. She has fallen a couple of times without injury at home. She feels that everything is weak. Not feel malaise or fatigue. He is scheduled to follow-up with his rehabilitation session tomorrow for further evaluation. Physical Examination: Vital signs are reviewed. HEENT exam is unremarkable. Heart is regular rate and rhythm. Lungs are clear bilaterally. Abdomen soft and nontender. Cervical spine reveals left paraspinal tenderness to palpation. There are no step-offs. No bony tenderness. Her neurologic exam is normal. Her strength the upper extremities is equal and normal. Her sensation is also equal. Sensation and reflexes as well as strength in the bilateral lower extremities are equal. Test Results: CT scan reveals multilevel degenerative disc disease. There is severe foramina narrowing at the C4-C5 and C6 area Emergency Department Course and Treatment: The patient will be given a shot of Kenalog here. Her issue is likely degenerative disc disease and foraminal narrowing. She has a follow-up appointment with the rehab physician tomorrow. She will keep this appointment. Treatment Plan: [] Disposition: Discharge Impression: Cervical radiculopathy, cervical degenerative disc disease This note was generated with [employer] dictation software. It may contain incorrect words, spelling, and punctuation that were not noted in review of the chart prior to signing ED Disposition - Plan for ED Patient: Chief Complaint: Other, Pain/Inj Referrals: [facility] Doctor,Out of [Primary Care Provider] - What to do if you have Problems For any increased pain, shortness of breath, bleeding, nausea or vomiting, chest pain, or any unexpected problems, contact your Primary Care Provider. Call [facility] ([phone]) or report to the closest Emergency Room. Call 911 if necessary. 01/29/18 1016 <Electronically signed by Jarett Eden MD> Date Jarett Eden MD Cosigner Signature (If Indicated): Date CC: GISELA GAR; OUT OF TOWN DOCTOR SPINE CERVICAL Observed: 01/29/2018 Status: F Source: [place] 8:44 AM [facility] [place] [facility] Imaging Services [address] [place] [address] Spine Cervical without Contras MR#: [id number] Acct: [id number] Name: SONIA KARIMI Rep #: [id number] : 1955 F 62 From: Francisco Zavaleta MD PCP: OUT OF TOWN DOCTOR Status: REG ER Study: Spine Cervical without Contras Date of Exam: 01/29/18 Exam# [id number] Ordering Dr: Jarett Eden MD STUDY: CT CERVICAL SPINE WITHOUT CONTRAST REASON FOR EXAM: Female, 62 years old. Posterior neck pain. RADIATION DOSAGE (If Supplied By Facility): CTDIvol = ( 32.86 ) mGy, DLP = ( 744.76 ) mGycm TECHNIQUE: High resolution transaxial imaging was performed without contrast material. Sagittal and coronal images were reconstructed. Individualized dose optimization techniques were used for this CT. COMPARISON: None FINDINGS: Normal craniovertebral junction. Normal anterior atlantoaxial articulation. Normal odontoid process. There is straightening of the normal cervical lordosis. Normal vertebral bodies and posterior osseous elements. C2-3: Minimal anterior listhesis of C2 on C3. Facet joint osteoarthritis and hypertrophy. C3-4: Minimal anterior listhesis of C3 on C4. Facet joint osteoarthritis and hypertrophy. Uncovertebral arthrosis. C4-5: Marked degree of disc space narrowing with fusion. Anterior spondylosis. Uncovertebral arthrosis. Bilateral neural foraminal stenosis severe on the right side and moderate on the left side. C5-6: Marked degree of disc space narrowing. Spondylosis. Uncovertebral arthrosis. Moderate degree of bilateral neural foraminal stenosis. C6-7: Marked degree of disc space narrowing. Spondylosis. Facet joint osteoarthritis. C7-T1: Normal endplates. Normal disc height and morphology. Normal central canal and intervertebral neuroforamina. Calcification of the carotid bifurcations. CT/Spine Cervical without Contras IMPRESSION: Multilevel degenerative changes, as described above. Electronically Signed: Francisco Zavaleta MD at 10:08 EST Tel [phone], Service support , CC: Jarett Eden MD; OUT OF TOWN DOCTOR Money Room Supervisor: Signed XR CERVICAL 4V Observed: 01/20/2018 Status: F Source: [place] AP/LAT/FLX/EXT 12:05 PM [facility] REPOSITORY * * *Final Report* * * DATE OF EXAM: Jan 20 2018 12:05PM [id number] - XR CERVICAL 4V AP/LAT/FLX/EXT / PROCEDURE REASON: multiple diagnoses * * * * Physician Interpretation * * * * Examination: XR CERVICAL 4V AP/LAT/FLX/EXT History: Cervical disc disorder with radiculopathy Cervical spondylosis with myelopathy Spinal stenosis of cervical region Technique: XR CERVICAL 4V AP/LAT/FLX/EXT Comparison: None RESULT: AP, lateral, flexion and extension views reveal mild anterior position of C2 on C3, and C3 on C4 in neutral and flexed positions. These both correct in the extended position. No significant change in flexion. Interbody fusion C4-5. Moderate disc space narrowing C5-6 and C6-7, with osteophytosis. No evidence of fracture or prevertebral swelling. Straightening of the normal lordosis. IMPRESSION: DEGENERATIVE CHANGES DESCRIBED. ANTERIOR POSITION OF C2 ON C3, AND C3 ON C4. MILD DYNAMIC INSTABILITY AT BOTH LEVELS. STRAIGHTENING OF THE NORMAL LORDOSIS. Money Room Supervisor: WOO Transcribe Date/Time: Jan 22 2018 2:51P Dictated by : KAISER MORATAYA MD This examination was interpreted and the report reviewed and electronically signed by: KAISER MORATAYA MD on Jan 22 2018 2:58PM EST [id number] XR SHLDR >/=3V Observed: 01/20/2018 Status: F Source: [place] AP/BENJAMÍN AP/OTHR LT 12:05 PM [facility] REPOSITORY * * *Final Report* * * DATE OF EXAM: Jan 20 2018 12:05PM [id number] - XR SHLDR >/=3V AP/BENJAMÍN AP/OTHR LT / PROCEDURE REASON: Sprain of left shoulder, unspecified shoulder sprain type, sequela * * * * Physician Interpretation * * * * Examination: XR SHLDR >/=3V AP/BENJAMÍN AP/OTHR LT History: Sprain of left shoulder, unspecified shoulder sprain type, sequela Technique: XR SHLDR >/=3V AP/BENJAMÍN AP/OTHR LT Comparison: None RESULT: 3 views reveal moderate to severe degenerative change involving the glenohumeral joint with osteophytosis. No fracture. Normal alignment. Mild osteopenia. IMPRESSION: MODERATE TO SEVERE DEGENERATIVE CHANGE. OSTEOPENIA. Money Room Supervisor: WOO Transcribe Date/Time: Jan 22 2018 2:58P Dictated by : KAISER MORATAYA MD This examination was interpreted and the report reviewed and electronically signed by: KAISER MORATAYA MD on Jan 22 2018 2:59PM EST [id number] Observed: 01/20/2018 Status: COMPLETED Source: [place] 11:46 AM [facility] REPOSITORY HNO ID: [id number] Author: Gabi Parish (Rt) Therese Varela Service: (none) Author Type: Computer Applications Instructor Type: Progress Notes Filed: 01/20/2018 12:03 PM Note Text: Radiology Service Progress Note PATIENT NAME: Sonia Karimi DATE OF SERVICE: January 20, 2018 TIME: 11:46 AM PATIENT IDENTITY VERIFICATION COMPLETED USING TWO (2) METHODS: Patient confirmed name verbally and Date of . PATIENT GENDER DATA: Female. status: : No status: NO. PATIENT RELEVANT IMPLANT DATA REVIEWED: Not Applicable RADIOLOGY DEPARTMENT: General X-ray: Exam(s) Completed: Spine X-Ray(s): Cervical AP / LAT / FLEX-EXT Upper Extremity X-Ray(s): Shoulder, AP / TRUE AP / AXILLARY left : PERIPHERAL IV DATA: Not applicable SIGNED BY: RT Masoud January 20, 2018 11:46 AM CNOV Observed: 01/16/2018 Status: COMPLETED Source: [place] 2:40 PM [facility] REPOSITORY Office Visit ([facility]) MAHISONIA ESPARZA ([id number]) 1955 F Date Time Provider Department 01/16/18 2:40 PM RAMIREZ MIRANDA [facility] During your visit today, we recorded the following information about you: Pulse Respiration Blood pressure Weight 89/minute 16/minute 152/78 129.1 kg Height 1.676 m Ramirez Miranda MD 01/16/2018 5:54 PM Signed Physical Medicine Clinic Followup SUBJECTIVE: Sonia Karimi a 62 year old White female presents to [facility] Pain Management Department for a followup appointment for Patient presents with: Neck Pain: radiates down both arms Low Back Pain: radiates down both legs Bilateral Knee Pain At the last visit the following plan of care was recommended 04-04-2017 PLAN: 1) Will restart gabapentin at 200 tid. If not helping will increase to 300 tid. If does well with that, taper later to bid and continue 2) Should improve this week 25-50%. If not , patient should contact regulatory intern for further imaging 3) Pool program on hold, resume when able for back and knees 4) RTC 3-4 months, but call if not improving Compared to last visit worse. The pain is located all over body and radiates to bilateral lower extremities , bilateral upper extremities along lateral aspect and posterior aspect to the level of fingers Started 9 days ago, was not directly related to trauma, and symptoms have been worsening. Characterized as numbness, sharp and tingling Currently the pain is a rated at a 9 on a scale of 0-10. Worst pain score is rated at 10 on a scale of 0-10. Best pain score is rated at 5 on a scale of 0-10. Aggravated by Movement. Mitigated by sitting, lying down and medications. Radiation:Yes: Pain radiates to, the left arm, the right arm, the left leg, the right leg REVIEW OF SYSTEMS: GENERAL: No weight loss, malaise or fevers. HEENT: Negative for frequent or significant headaches NECK: Negative for lumps, goiter, pain and significant neck swelling RESPIRATORY: Negative for cough, wheezing or shortness of breath. CARDIOVASCULAR: Negative for chest pain, leg swelling or palpitations. GI: Negative for abdominal discomfort, blood in stools or black stools or change in bowel habits MUSCULOSKELETAL: Negative for joint pain or swelling, back pain or muscle pain. SKIN: Negative for lesions, rash, and itching. PSYCH: Negative for sleep disturbance, mood disorder and recent psychosocial stressors. HEMATOLOGY/LYMPHOLOGY Negative for prolonged bleeding, bruising easily or swollen nodes. NEURO: No history of headaches, syncope, paralysis, seizures or tremors All other reviewed and negative other than HPI. Does the patient feel safe at home Yes Doretha Paredes LPN I have seen and examined the patient and confirmed the above.? The HPI was explored in detail with the patient. OBJECTIVE: There were no vitals taken for this visit. PHYSICAL EXAMINATION: General appearance: Well appearing, in mild discomfort, alert. Cognition normal/usual Skin: Skin color, texture, turgor normal, no rashes or lesions Cardiac: RRR, no edema Respiratory: Respirations even and non-labored. GI: Abdomen soft and non-tender. Musculoskeletal: Neck: Mild pain to palpation over the cervical paraspinous muscles. Spurling Negative. Llhermitte's negative. Pain end range of extension. ROM of neck does not affect arms. Mild pain with neck flexion, extension, or lateral flexion. No spasm posterior/lateral mm Back: Straight leg raising in the sitting and supine positions is negative to radicular pain. No pain to palpation over the spine or costovertebral angles. Normal range of motion without pain reproduction Extremities: Peripheral joint ROM is full and pain free without obvious instability or laxity in all four extremities except knees and shoulder. Bony arthritic changes both knees. L shoulder pain with passive/active flexion and abduction. Shoulder, hip, sacroiliac and knee provocative maneuvers are negative. Mild swelling /fading bruise right hand dorsum Neuro: Strength testing shows shoulders/elbows 4/5 with guarding left shoulder. Wrists hands 3-4/5. Mild ankle/foot weakness. Bilateral upper and lower extremity coordination and muscle stretch reflexes are brisk, no ankle clonus. Plantar response are downgoing. Loss of sensation is noted bilateral C7-C8. Using walker as per usual ASSESSMENT: 62 year old female with severe bilateral DJD knees, now with cervical radiculopathy, possible early myelopathy. No evidence for traumatic injury on neck exam Not progressing over past 7-10 days. Suspect left shoulder sprain after fall PLAN: 1) Above discussed at length with patient. 2) Start prednisone 60 daily tapering off over 12 days. Advised stimulation effects corticosteroid and advise ranitidine bid while on. 3) Should start to improve 24 hours. If not improving or getting worse, patient advised to go directly to ER for emergent evaluation 4) Will order xray cerv spine and shoulder, and attempt to arrange MRI. 5) refill hs norco 6) Hold off on exercise program. When stable will need physical/occupational therapy 7) RTC 2 weeks. Reiterated need to seek immediate medical attention if leg weakness or arms getting weaker The above plan and management options were discussed at length with patient. Patient is in agreement with the above and verbalized understanding. Ramirez Miranda MD January 16, 2018 Ramirez Miranda MD 01/16/2018 3:00 PM Signed You have evidence for pinched nerve in your neck. You have contusion right hand and shoulder sprain after falls. Will start with cortisone, xray neck and shoulder. Will try to get MRI of neck (cervical spine) covered Please followup here in 2 weeks If you develop leg weakness or if arms get worse, go immediately to ER. Referring Provider: CHING LUCAS [[id number]] Allergies As of Date: 01/16/2018 Noted Allergy Reaction ATIVAN (LORAZEPAM) 03/26/2012 4 - Hives NEOSPORIN (BENZALKONIUM CHLORIDE) 03/26/2012 2 - Rash Date Reviewed: 01/16/2018 Reviewed by: Doretha Ritchie) CHECO Paredes - Fully Assessed Reason for Visit: Neck Pain [135] Cmt: radiates down both arms Low Back Pain [126] Cmt: radiates down both legs Bilateral Knee Pain [1210] Primary Visit Diagnosis:Cervical disc disorder with radiculopathy [M50.10] Other Visit Diagnoses:Cervical spondylosis with myelopathy [M47.12] Primary osteoarthritis of both knees [M17.0] Spinal stenosis of cervical region [M48.02] Sprain of left shoulder, unspecified shoulder sprain type, sequela [S43.402S] Order(s):predniSONE (DELTASONE) 10 mg tabletPlease take 3 pills twice daily for 3 days, then 2 pills twice daily for 3 days, then 1 pill twice daily for 3 days, then 1 pill daily till gone.Disp: 40 tabletRfl: 0 XR CERV OTHER 4V AP/LAT/FLX/EXT [[id number]] Order #: [id number] FUTURE XR SHOULDER GENERAL 3V OR MORE AP/TRUE AP/OTHER LT [5913491] Order #: [id number] FUTURE MRI CERVICAL SPINE WO IVCON [2832510] Order #: [id number] FUTURE HYDROcodone-acetaminophen (NORCO) 5-325 mg per tabletTake 1 tablet by mouth at bedtime as needed for up to 30 days.Disp: 30 tabletRfl: 0 Prescriptions as of 01/16/2018 Sig: GABAPENTIN 100 MG CAPSULE TAKE 2 CAPSULES BY MOUTH TWIC* HYDROCODONE 5 MG-ACETAMINOPHE* Take 1 tablet by mouth at bed* AMLODIPINE 5 MG TABLET Take 1 tablet by mouth once d* CLONIDINE HCL 0.1 MG TABLET Take 1 tablet by mouth daily * DICLOFENAC ER 100 MG TABLET,E* TAKE 1 TABLET DAILY WITH FOOD TRIAMTERENE 37.5 MG-HYDROCHLO* Take 1 capsule by mouth once * SERTRALINE 100 MG TABLET Take 1 tablet by mouth once d* ATORVASTATIN 10 MG TABLET Take 1 tablet by mouth once d* MULTIVITAMIN AND MINERALS ORAL Take 1 tablet by mouth once d* FHJPDSTT-LPC-FHCSCRARR-VIT D3* Take 3 tablets by mouth once * CHOLECALCIFEROL (VITAMIN D3) * Take 2,000 Units by mouth onc* PREDNISONE 10 MG TABLET Please take 3 pills twice ronald* HYDROCODONE 5 MG-ACETAMINOPHE* Take 1 tablet by mouth at bed* COMPOUNDED PRESCRIPTION BIPAP 1 liter bleed in 01/17 * Problem List As Of Date 01/16/2018 Noted Resolved Essential hypertension [I10] INVALID FOR* Cervical polyp [N84.1] INVALID FOR* Hyperlipidemia [E78.5] INVALID FOR* Osteoarthritis of both knees [M17.0] INVALID FOR* Sleep apnea [G47.30] INVALID FOR* Obesity, Class III, BMI 40-49.9 (morbid obesity*INVALID FOR* Other instructions from your clinician: You have evidence for pinched nerve in your neck. You have contusion right hand and shoulder sprain after falls. Will start with cortisone, xray neck and shoulder. Will try to get MRI of neck (cervical spine) covered Please followup here in 2 weeks If you develop leg weakness or if arms get worse, go immediately to ER. Prescriptions ordered this encounter Disp Refills Start End PREDNISONE 10 MG TABLET 40 t* 0 01/16/2018 Class: Print RX Sig: Please take 3 pills twice daily for 3 days, then 2 pills twice daily for 3 days, then 1 pill twice daily for 3 days, then 1 pill daily till gone. HYDROCODONE 5 MG-ACETAMINOPHEN 325 M* 30 t* 0 01/16/2018 02/15/2018 Class: Print RX Route: ORAL Sig: Take 1 tablet by mouth at bedtime as needed for up to 30 days. Follow-up and Disposition History Recorded Encounter Status:Closed by RAMIREZ MIRANDA MD on 01/16/18 PROGRESS Observed: 01/16/2018 Status: COMPLETED Source: [place] 2:31 PM [facility] REPOSITORY HNO ID: [id number] Author: Ramirez Miranda Service: (none) Author Type: Physician Type: Progress Notes Filed: 01/16/2018 5:54 PM Note Text: Physical Medicine Clinic Followup SUBJECTIVE: Sonia Karimi a 62 year old White female presents to [facility] [place] [facility] Pain Management Department for a followup appointment for Patient presents with: Neck Pain: radiates down both arms Low Back Pain: radiates down both legs Bilateral Knee Pain At the last visit the following plan of care was recommended 04-04-2017 PLAN: 1) Will restart gabapentin at 200 tid. If not helping will increase to 300 tid. If does well with that, taper later to bid and continue 2) Should improve this week 25-50%. If not , patient should contact regulatory intern for further imaging 3) Pool program on hold, resume when able for back and knees 4) RTC 3-4 months, but call if not improving Compared to last visit worse. The pain is located all over body and radiates to bilateral lower extremities , bilateral upper extremities along lateral aspect and posterior aspect to the level of fingers Started 9 days ago, was not directly related to trauma, and symptoms have been worsening. Characterized as numbness, sharp and tingling Currently the pain is a rated at a 9 on a scale of 0-10. Worst pain score is rated at 10 on a scale of 0-10. Best pain score is rated at 5 on a scale of 0-10. Aggravated by Movement. Mitigated by sitting, lying down and medications. Radiation:Yes: Pain radiates to, the left arm, the right arm, the left leg, the right leg REVIEW OF SYSTEMS: GENERAL: No weight loss, malaise or fevers. HEENT: Negative for frequent or significant headaches NECK: Negative for lumps, goiter, pain and significant neck swelling RESPIRATORY: Negative for cough, wheezing or shortness of breath. CARDIOVASCULAR: Negative for chest pain, leg swelling or palpitations. GI: Negative for abdominal discomfort, blood in stools or black stools or change in bowel habits MUSCULOSKELETAL: Negative for joint pain or swelling, back pain or muscle pain. SKIN: Negative for lesions, rash, and itching. PSYCH: Negative for sleep disturbance, mood disorder and recent psychosocial stressors. HEMATOLOGY/LYMPHOLOGY Negative for prolonged bleeding, bruising easily or swollen nodes. NEURO: No history of headaches, syncope, paralysis, seizures or tremors All other reviewed and negative other than HPI. Does the patient feel safe at home Yes Doretha Paredes LPN I have seen and examined the patient and confirmed the above.? The HPI was explored in detail with the patient. OBJECTIVE: There were no vitals taken for this visit. PHYSICAL EXAMINATION: General appearance: Well appearing, in mild discomfort, alert. Cognition normal/usual Skin: Skin color, texture, turgor normal, no rashes or lesions Cardiac: RRR, no edema Respiratory: Respirations even and non-labored. GI: Abdomen soft and non-tender. Musculoskeletal: Neck: Mild pain to palpation over the cervical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 subacute moderate left lower leg pain. Exam c/w medial ankle sprain +/- saphenous neuritis Possibility of stress fracture less likely but no excluded PLAN: 1) Will restart gabapentin at 200 tid. If not helping will increase to 300 tid. If does well with that, taper later to bid and continue 2) Should improve this week 25-50%. If not , patient should contact regulatory intern for further imaging 3) Pool program on hold, resume when able for back and knees 4) RTC 3-4 months, but call if not improving The above plan and management options were discussed at length with patient. Patient is in agreement with the above and verbalized understanding. Ramirez Miranda MD April 04, 2017 XR ANKLE 3V AP/LAT/OBL Observed: 03/23/2017 Status: F Source: [facility] 10:05 AM [facility] REPOSITORY * * *Final Report* * * DATE OF EXAM: Mar 23 2017 10:05AM WOX [id number] - XR ANKLE 3V AP/LAT/OBL LT / PROCEDURE REASON: Pain in left ankle and joints of left foot * * * * Physician Interpretation * * * * HISTORY: Left ankle pain TECHNIQUE: 3 weightbearing views COMPARISON: None RESULT: Bony and joint structures appear intact. IMPRESSION: No fracture or other findings. Money Room Supervisor: PSCB Transcribe Date/Time: Mar 23 2017 10:10A Dictated by : BRITTANEY FOSS MD This examination was interpreted and the report reviewed and electronically signed by: BRITTANEY FOSS MD on Mar 23 2017 10:12AM EST [id number] PROGRESS Observed: 03/23/2017 Status: COMPLETED Source: [place] 9:55 AM [facility] REPOSITORY HNO ID: [id number] Author: Gabi RubioRt) Therese Varela Service: (none) Author Type: Computer Applications Instructor Type: Progress Notes Filed: 03/23/2017 10:05 AM Note Text: Radiology Service Progress Note PATIENT NAME: Sonia Karimi DATE OF SERVICE: March 23, 2017 TIME: 9:55 AM PATIENT IDENTITY VERIFICATION COMPLETED USING TWO (2) METHODS: Patient confirmed name verbally and Date of . PATIENT GENDER DATA: Female. status: : No status: NO. PATIENT RELEVANT IMPLANT DATA REVIEWED: Not Applicable RADIOLOGY DEPARTMENT: General X-ray: Exam(s) Completed: Lower Extremity X-Ray(s): Ankle, Left: PERIPHERAL IV DATA: Not applicable SIGNED BY: RT Masoud March 23, 2017 9:55 AM PROGRESS Observed: 03/23/2017 Status: COMPLETED Source: [place] 9:30 AM [facility] REPOSITORY HNO ID: [id number] Author: Jeanna Sanders ([place]) Service: (none) Author Type: Physician Pharmacist Type: Progress Notes Filed: 03/23/2017 10:33 AM Note Text: HPI Pt states she has had left ankle pain x 4 days. She has had a ganglion cyst in her foot years ago and had seen a regulatory intern. This is more in her ankle however. She does do physical therapy for her arthritic knees but doesn't remember hurting her ankle. She states it is very painful to walk on. No redness or warmth. Review of Systems Constitutional: Negative. HENT: Negative. Eyes: Negative. Respiratory: Negative. Cardiovascular: Negative. Gastrointestinal: Negative. Genitourinary: Negative. Musculoskeletal: Left ankle pain Skin: Negative. Neurological: Negative. Endo/Heme/Allergies: Negative. Psychiatric/Behavioral: Negative. All other systems reviewed and are negative. Physical Exam Constitutional: She is oriented to person, place, and time and well-developed, well-nourished, and in no distress. HENT: Head: Normocephalic and atraumatic. Neck: Normal range of motion. Cardiovascular: Normal rate and regular rhythm. Pulmonary/Chest: Effort normal and breath sounds normal. Musculoskeletal: Pt has swelling to the medial left ankle and tenderness to palpation. She has normal range of motion on plantar and dorsiflexion. Pedal pulse 2+, normal distal sensation and cap refil brisk. Neurological: She is alert and oriented to person, place, and time. Skin: Skin is warm and dry. No rash noted. Psychiatric: Affect and judgment normal. Nursing note and vitals reviewed. ASSESSMENT/PLAN: 1. Acute left ankle pain - ICD9: 719.47, ICD10: M25.572 - Pt xr here negative. I do feel she likely strained it. She has been on diclofenac for years and isn't helping th pain. I discussed we could do a short burst of prednisone, but she cannot take the diclofenac at the same time. She understood this. Discussed that if she is not better in 5-7 days to make a follow up appt with orthopedics and a referral was given. Rest, ice, and elevate. She has an ankle sleeve that I encouraged her to wear also. Discussed with patient concerning symptoms to go to the emergency department or follow up here. Pt agreeable with this plan. - XR ANKLE GENERAL 3V AP/LAT/OBL LT Jeanna Sanders PA-C ALLERGIES ALLERGIES DATE TYPE / CODE NAME / CODE REACTION SEVERITY SOURCE 02/07/2018 Drug neomycin/[id number] Hives Unknown [place] Allergy/416 (RXNORM) [facility] 333343([facility] ED CT) Repository 02/02/2018 DRUG NEOMYCIN ITCHING [facility] INGREDI/419 Other [place] 377440([facility] ED CT) 01/29/2018 Drug lorazepam/[id number] Hives Unknown [place] Allergy/416 0(RXNORM) [facility] 034032([facility] ED CT) Repository 03/26/2012 DRUG LORAZEPAM HIVES [facility] INGREDI/419 Other [place] 529441([facility] Repository ED CT) 03/26/2012 DRUG BENZALKONIUM RASH [facility] INGREDI/419 [place] Other [place] 580396([facility] Repository ED CT) ENCOUNTERS ENCOUNTERS ADMIT/DISCHARGE ACCOUNT ADMITTING ENCOUNTER LOCATION SOURCE NUMBER CLASS 03/06/2018 [id number] Ambulatory [facility] ing:PT Repository 02/20/2018/02/21/19 [id number] Ambulatory [address] Repository 02/15/2018 [id number] Ambulatory [facility] Repository 02/15/2018/02/16/19 [id number] Ambulatory [address] Repository 02/07/2018/02/13/19 [id number] [place], Inpatient [place] [address] [place] Encounter [facility] ing:RURoom: Repository [id number]: 1 01/30/2018/02/08/20 [id number] ARTEM DOW Inpatient [place] 18 P Encounter [facility] Other [place] Repository 01/30/2018/02/01/20 [id number] Ambulatory [address] [place] Repository 01/29/2018/01/30/20 [id number] Emergency [place] 18 [facility] ing:ED Repository 01/20/2018/01/31/20 [id number] Ambulatory [address] [place] Repository 01/16/2018/01/18/20 [id number] Ambulatory [address] [place] Repository 08/07/2017/09/07/19 [id number] Ambulatory [address] [place] Repository 04/04/2017/04/05/19 [id number] Ambulatory [address] [place] Repository 03/23/2017/03/23/19 [id number] Ambulatory [address] [place] Repository 03/23/2017/03/23/19 [id number] Ambulatory [address] [place] Repository PAYERS PAYERS ENCOUNTER GUARANTOR PAYER SUBSCRIBER SOURCE 03/06/2018 SONIA [id number] [facility] DERUEDOB: [facility] [address]Vaakym [id number]: Repository [address]Rgv: [phone] [id number] [phone] () Date:[id number] [address], [place] [address]WD: 03/06/2018 Secondary NOT GIVENUNK [place] Insurance:SELF PAY [facility] Number: Effective Repository Date:2018-02-15 02/07/2018 SONIA SIDHU Primary SONIAARUNA SIDHU Cassi [id number] Insurance:[employer] DERUEDOB: [facility] Number: [id number], [place] [id number] Repository [address]Ota: [phone] e Date:[id number] [phone] () [address] [place] [address]ZD: 02/07/2018 Secondary NOT GIVENUNK [place] Insurance:SELF PAY [facility] Number: Effective Repository Date:2018-02-07 01/29/2018 SONIA SIDHU Primary SONIA Ye [id number] Insurance:[employer] DERUEDOB: [facility] Number: [id number], [place] [id number] Repository [address]Ofi: [phone] e Date:[id number] [phone] () [address], [place] [address]YC: 01/29/2018 Secondary NOT GIVENUNK Cassi Insurance:SELF PAY [facility] Number: Effective Repository Date:2018-01-29
== END 2018-01-29 11:11 | disposition home or self-care (01) ==
PROVIDERS: Emergency Provider Emergency Medicine
DX: M50.13 Cervical disc disorder with radiculopathy, cervicothoracic region (principal)
CPT/HCPCS: 72125; 96372; 99282

== ENCOUNTER 2018-02-07 18:50 | Inpatient (IN) | payer OTHER, SELFPAY ==
[2018-02-07 20:17] VITALS: BMI 45.6
[2018-02-07 21:24] VITALS: BP 148/62; PULSE 89; RESP 16; TEMP 37.1; O2SAT 98
[2018-02-07 21:38] VITALS: BMI 45.6
[2018-02-07] MEDS: HYDROcodone Bitartrate/Apap 5/325 Tablet PO (21:52)
[2018-02-07] MEDS: Atorvastatin Calcium 10 MG Tablet PO (21:52)
[2018-02-07] MEDS: cloNIDine HCl 0.1 MG Tablet PO (21:52)
[2018-02-07 22:00] VITALS: BP 146/67; PULSE 87; RESP 17; TEMP 36.9; O2SAT 98
--- NOTE | 2018-02-08 00:53 | NURSING ---
pt resting in bed and assessment complete.
[2018-02-08] MEDS: Acetaminophen 325 MG Tablet 650 MG PO ×2 (06:27→17:22)
[2018-02-08 06:57] LABS: Absolute Lymphocyte Count 1.48 X10^3/ul (0.83-4.51); Absolute Neutrophil Count 5.6 X10^3/uL (2.0-7.7); Basophil# 0.03 X10^3/uL; Basophil% 0.4 % (0-1); Eosinophil# 0.31 X10^3/uL; Eosinophils% 3.9 % (0-5); Hematocrit 32.5 % (37-47); Hemoglobin 10.4 g/dl (12.0-15.0); Lymphocyte # 1.48 X10^3/ul (4.0); Lymphocyte % 18.5 % (19-41); Mean Corpuscular Hgb 27.4 pg (27.0-32.0); Mean Corpuscular Volume 85.8 fL (81-99); Mean Platelet Vol. 9.2 fl (6.2-12.0); Monocyte# 0.55 X10^3/uL; Monocyte% 6.9 % (0-10); Neutrophil % 70.2 % (47-70); Platelet Count 258 K/mm3 (150-450); RBC Distribution Width CV 13.7 % (11.6-14.6); RBC Distribution Width SD 41.9 fl (35.1-43.9); Red Blood Count 3.79 M/mm3 (4.2-5.4)
[2018-02-08 06:58] LABS: POSITIVE COUNT NO; POSITIVE DIFFERENTIAL NO; POSITIVE MORPHOLOGY NO
[2018-02-08 07:14] VITALS: O2SAT 95
[2018-02-08 07:17] LABS: Anion Gap 5 (5-15); BUN 13 mg/dL (7-18); BUN/Creat Ratio 22.4 RATIO (10-20); Calcium,Total 9.1 mg/dL (8.5-10.1); Chloride 105 mmol/L (98-107); Creatinine, Serum 0.58 mg/dL (0.55-1.02); EST Glomerular Filtration Rate 111 mL/min (>60); Est Glom Filt Rate - Afr Amer 135 mL/min (>60); Estimated Creatinine Clearance 91.73 ml/min; Glucose 109 mg/dL (74-106); Potassium 3.9 mmol/L (3.5-5.1); Sodium Level 138 mmol/L (136-145)
[2018-02-08 09:09] VITALS: BP 153/74; PULSE 83; RESP 16; TEMP 36.8; O2SAT 97
[2018-02-08] MEDS: Gabapentin 100 MG Capsule 200 MG PO ×2 (09:23→17:21)
[2018-02-08] MEDS: Multivitamins,Ther W-Minerals Tablet 1 TABLET PO (09:23)
[2018-02-08] MEDS: predniSONE 10 MG Tablet 30 MG PO ×2 (09:24→17:22)
[2018-02-08] MEDS: cloNIDine HCl 0.1 MG Tablet PO (09:24)
[2018-02-08] MEDS: amLODIPine 5 MG Tablet PO (09:24)
[2018-02-08] MEDS: Sertraline 100 MG Tablet PO (09:24)
[2018-02-08] MEDS: fentaNYL 25 MCG Patch TRANSDERM. (10:16)
--- NOTE | 2018-02-08 12:22 | CASEMGMT ---
Insurance Clinical information sent. Pending continued stay approval at this time. Auth# [id number] YOSVANY Ortiz, [employer] PROFESSION[employer]
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
[2018-02-08] MEDS: Atorvastatin Calcium 10 MG Tablet PO (20:47)
[2018-02-08 20:49] VITALS: BP 147/73; PULSE 80; RESP 18; TEMP 37.1; O2SAT 94
[2018-02-08] MEDS: Acetaminophen 500 MG Tablet 1000 MG PO (22:28)
[2018-02-08] MEDS: HYDROcodone Bitartrate/Apap 5/325 Tablet PO (22:29)
--- NOTE | 2018-02-09 04:16 | NURSING ---
1930 pt had knee high teds removed and told staff to throw them in trash. Pt states she is not going to wear them.
[2018-02-09] MEDS: Acetaminophen 500 MG Tablet 1000 MG PO ×3 (05:19→22:30)
[2018-02-09 09:46] VITALS: BP 143/59; PULSE 85; RESP 18; TEMP 36.7; O2SAT 97
[2018-02-09] MEDS: Multivitamins,Ther W-Minerals Tablet 1 TABLET PO (09:47)
[2018-02-09] MEDS: amLODIPine 5 MG Tablet PO ×2 (09:47→09:48)
[2018-02-09] MEDS: Sertraline 100 MG Tablet PO (09:48)
[2018-02-09] MEDS: predniSONE 10 MG Tablet 30 MG PO ×2 (09:48→17:13)
[2018-02-09] MEDS: Gabapentin 100 MG Capsule 200 MG PO ×2 (09:48→17:13)
[2018-02-09] MEDS: cloNIDine HCl 0.1 MG Tablet PO (09:50)
--- NOTE | 2018-02-09 11:57 | NURSING ---
Tel. Dr. Shaun Lopez [phone] left message ref. do they want us to start DVT prophylaxis? Office will call us back.
--- NOTE | 2018-02-09 14:49 | NURSING ---
Spoke to Dr. Dunn's office they said they are going to leave the DVT prophylaxis up to the PCP. Made Robert GARZA aware and she will to talk to Dr. Osuna and let us know what to do.
[2018-02-09 21:55] VITALS: BP 126/60; PULSE 77; RESP 18; TEMP 37.1; O2SAT 95
[2018-02-09] MEDS: HYDROcodone Bitartrate/Apap 5/325 Tablet PO (22:00)
[2018-02-09] MEDS: Atorvastatin Calcium 10 MG Tablet PO (22:03)
[2018-02-10] MEDS: Acetaminophen 500 MG Tablet 1000 MG PO ×3 (06:26→19:21)
[2018-02-10 07:00] VITALS: BP 150/93; PULSE 65; RESP 18; TEMP 36.4; O2SAT 97
[2018-02-10 07:51] VITALS: O2SAT 97
[2018-02-10] MEDS: Gabapentin 100 MG Capsule 200 MG PO ×2 (08:11→17:27)
[2018-02-10] MEDS: Multivitamins,Ther W-Minerals Tablet 1 TABLET PO (08:12)
[2018-02-10] MEDS: cloNIDine HCl 0.1 MG Tablet PO (08:12)
[2018-02-10] MEDS: Sertraline 100 MG Tablet PO (08:12)
[2018-02-10] MEDS: predniSONE 10 MG Tablet 30 MG PO ×2 (08:12→17:27)
[2018-02-10] MEDS: amLODIPine 5 MG Tablet PO (08:13)
[2018-02-10] MEDS: Senna/Docusate Sodium 1 Tablet 2 TABLET PO ×2 (12:42→22:12)
[2018-02-10 21:53] VITALS: BP 154/72; PULSE 66; RESP 18; TEMP 36.7; O2SAT 94
[2018-02-10] MEDS: HYDROcodone Bitartrate/Apap 5/325 Tablet PO (22:11)
[2018-02-10] MEDS: Atorvastatin Calcium 10 MG Tablet PO (22:12)
[2018-02-11] MEDS: Acetaminophen 500 MG Tablet 1000 MG PO ×3 (05:24→18:05)
[2018-02-11 07:00] VITALS: BP 151/77; PULSE 68; RESP 18; TEMP 36.8; O2SAT 95
[2018-02-11] MEDS: predniSONE 20 MG Tablet PO ×2 (07:57→16:59)
[2018-02-11] MEDS: amLODIPine 5 MG Tablet PO (07:57)
[2018-02-11] MEDS: Multivitamins,Ther W-Minerals Tablet 1 TABLET PO (07:57)
[2018-02-11] MEDS: Gabapentin 100 MG Capsule 200 MG PO ×2 (07:57→16:58)
[2018-02-11] MEDS: Sertraline 100 MG Tablet PO (07:57)
[2018-02-11] MEDS: cloNIDine HCl 0.1 MG Tablet PO (07:57)
[2018-02-11] MEDS: Senna/Docusate Sodium 1 Tablet 2 TABLET PO ×2 (07:57→21:28)
--- NOTE | 2018-02-11 08:52 | NURSING ---
AMBULATED TO MULTIPURPOSE ROOM WITH WALKER AND STANDBY ASSIST AND COMPLETING EXERCISES.
[2018-02-11] MEDS: fentaNYL 25 MCG Patch TRANSDERM. (10:44)
[2018-02-11] MEDS: HYDROcodone Bitartrate/Apap 5/325 Tablet PO (21:28)
[2018-02-11] MEDS: Atorvastatin Calcium 10 MG Tablet PO (21:29)
[2018-02-11 21:30] VITALS: BP 133/87; PULSE 70; RESP 18; TEMP 36.6; O2SAT 96
--- NOTE | 2018-02-12 02:51 | NURSING ---
REVIEWED AND AGREE WITH [employer] ARCHITECT'S FIM AND HANDOFF CHARTING.
[2018-02-12] MEDS: Acetaminophen 500 MG Tablet 1000 MG PO ×3 (06:15→18:16)
--- NOTE | 2018-02-12 06:24 | NURSING ---
rounding on pt and pt reports that she is still having some difficulty breathing lungs sound checked at this time and crackles are noted on the posterior bases and cough is more frequent; dry and hacking. vs are as follows : bp 120/75, ap 115, resp 28, temp 97.4. rn aware
[2018-02-12 06:46] VITALS: O2SAT 98
[2018-02-12 08:12] VITALS: BP 129/68; PULSE 70; RESP 18; TEMP 36.6; O2SAT 97
[2018-02-12] MEDS: cloNIDine HCl 0.1 MG Tablet PO (08:13)
[2018-02-12] MEDS: Gabapentin 100 MG Capsule 200 MG PO (08:13)
[2018-02-12] MEDS: Sertraline 100 MG Tablet PO (08:14)
[2018-02-12] MEDS: predniSONE 20 MG Tablet PO ×2 (08:14→17:49)
[2018-02-12] MEDS: Senna/Docusate Sodium 1 Tablet 2 TABLET PO (08:14)
[2018-02-12] MEDS: amLODIPine 5 MG Tablet PO (08:14)
[2018-02-12] MEDS: Multivitamins,Ther W-Minerals Tablet 1 TABLET PO (08:14)
--- NOTE | 2018-02-12 12:12 | CASEMGMT ---
Addendum entered by Sarah Farmer 02/12/18 14:29: SW placed call to [facility] and spoke with Dwayne who states the professional driver is in route to deliver WW to pt room at [facility] inpt rehab. YOSVANY Kelly Original Note: Social Work Team meeting held with pt and niece present. Pt is progressing well with therapy. Pt requesting at this time to return home tomorrow 02/13/18. She will be returning home with her niece but niece does work during the day and pt will be alone. Team feels pt is appropriate for d/c home tomorrow. Pt will benefit from outpt PT/OT and pt would like to receive this from [facility]. Pt will also need a wheeled walker. Pt has all other needed DME. Referral made to Lluvia at [facility] and order faxed. [place] will call pt to set up appointment for PT/OT. Referral made to at [facility]. Order for Wheeled walker faxed. At this time [facility] is uncertain if they can deliver walker. [facility] requested SW call back in an hour to check again. SW to followup. Plan: D/C home 02/13/18 with outpt PT/OT at [facility] and with wheeled walker YOSVANY Kelly
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
--- NOTE | 2018-02-12 14:40 | PCM.DC ---
- Discharge Diagnoses Reason(s) for Visit for Discharge Instructions: Interior Cervical Fusion You will use the following diet at home:: Regular Your food should be the consistency of: Regular Your liquids should be the consistency of: Regular/Thin Discharge Activity: May Not Drive, May not drive while taking narcotic pain medications., May Shower - Do not let incision become wet, Use Walker, - - Do not soak in Tub bath Weight Bearing Status: Weight bearing as tolerated Call your doctor if your incision/area has: Increased Pain/ Swelling, Increased Redness, Foul Smelling Discharge, Swelling at the incision site Call your doctor if you observe: Fever of 101 or Higher, Coldness, Increased Pain, Numbness or Tingling, Change in Color, Inability to urinate, Inability to have a bowel movement, Using more than one pad per hour, Shortness of breath, Dizziness, Fainting spells, Swelling in the ankles, Chest pain, Prolonged hiccoughing, Increased palpitations (irregular heartbeat), Calf discomfort, Uncontrolled pain Allergies/Adverse Reactions: Allergies lorazepam [From Ativan] Allergy (Verified 01/29/18 08:32) Hives neomycin Allergy (Verified 02/07/18 19:47) Hives Medications to take at Discharge Acetaminophen [Tylenol] 1,000 mg PO TID@0600,1200,1800 #90 tablet 02/12/18 Amlodipine [Norvasc] 5 mg PO DAILY #60 tablet 02/12/18 Atorvastatin Calcium [Lipitor] 10 mg PO DAILY@2200 #60 tablet 02/12/18 Cholecalciferol (VIT D3) [Vitamin D3] 2,000 unit PO DAILY #60 tablet 02/12/18 Clonidine HCl [Catapres] 0.1 mg PO DAILY #60 tablet 02/12/18 Gabapentin [Neurontin] 300 mg PO TIDCM #90 capsule 02/12/18 Hydrocodone Bitart/Apap 5-325 [[place] 5/325] 1 tab PO QHS PRN PRN 7 Days #7 tab 02/12/18 Multivitamins,Ther W-Minerals [Multivitamin With Minerals] 1 tablet PO DAILYCM tablet 02/12/18 Sertraline HCl [Zoloft] 100 mg PO DAILY #30 tablet 02/12/18 fentaNYL patch [Duragesic patch] 25 mcg TRANSDERM. Q3D 6 Days #2 patch 02/12/18 predniSONE tablet 10 mg PO BID #14 tab 02/12/18 The following prescriptions were given: Acetaminophen [Tylenol] 1,000 mg PO TID@0600,1200,1800 #90 tablet Amlodipine [Norvasc] 5 mg PO DAILY #60 tablet Atorvastatin Calcium [Lipitor] 10 mg PO DAILY@2200 #60 tablet Cholecalciferol (VIT D3) [Vitamin D3] 2,000 unit PO DAILY #60 tablet Clonidine HCl [Catapres] 0.1 mg PO DAILY #60 tablet fentaNYL patch [Duragesic patch] 25 mcg TRANSDERM. Q3D 6 Days #2 patch Hydrocodone Bitart/Apap 5-325 [[place] 5/325] 1 tab PO QHS PRN PRN 7 Days #7 tab PRN Reason: Mod-Severe Pain (-11/22) Sertraline HCl [Zoloft] 100 mg PO DAILY #30 tablet predniSONE tablet 10 mg PO BID #14 tab Gabapentin [Neurontin] 300 mg PO TIDCM #90 capsule Primary Care Physician: [facility] Doctor,Out of [Primary Care Provider] - Test Results: Test results from this visit will be discussed in further detail at your follow-up appointment, if applicable. Please Follow Up With: [facility] - [facility]ational [facility] When: They will call you to set up an appointment Proposed Discharge Date: 02/13/18
--- NOTE | 2018-02-12 14:43 | DCINST_ITS ---
- Discharge Diagnoses Reason(s) for Visit for Discharge Instructions: Interior Cervical Fusion You will use the following diet at home:: Regular Your food should be the consistency of: Regular Your liquids should be the consistency of: Regular/Thin Discharge Activity: May Not Drive, May not drive while taking narcotic pain medications., May Shower - Do not let incision become wet, Use Walker, - - Do not soak in Tub bath Weight Bearing Status: Weight bearing as tolerated Call your doctor if your incision/area has: Increased Pain/ Swelling, Increased Redness, Foul Smelling Discharge, Swelling at the incision site Call your doctor if you observe: Fever of 101 or Higher, Coldness, Increased Pain, Numbness or Tingling, Change in Color, Inability to urinate, Inability to have a bowel movement, Using more than one pad per hour, Shortness of breath, Dizziness, Fainting spells, Swelling in the ankles, Chest pain, Prolonged hiccoughing, Increased palpitations (irregular heartbeat), Calf discomfort, Uncontrolled pain Allergies/Adverse Reactions: Allergies lorazepam [From Ativan] Allergy (Verified 01/29/18 08:32) Hives neomycin Allergy (Verified 02/07/18 19:47) Hives Medications to take at Discharge Acetaminophen [Tylenol] 1,000 mg PO TID@0600,1200,1800 #90 tablet 02/12/18 Amlodipine [Norvasc] 5 mg PO DAILY #60 tablet 02/12/18 Atorvastatin Calcium [Lipitor] 10 mg PO DAILY@2200 #60 tablet 02/12/18 Cholecalciferol (VIT D3) [Vitamin D3] 2,000 unit PO DAILY #60 tablet 02/12/18 Clonidine HCl [Catapres] 0.1 mg PO DAILY #60 tablet 02/12/18 Gabapentin [Neurontin] 300 mg PO TIDCM #90 capsule 02/12/18 Hydrocodone Bitart/Apap 5-325 [[place] 5/325] 1 tab PO QHS PRN PRN 7 Days #7 tab 02/12/18 Multivitamins,Ther W-Minerals [Multivitamin With Minerals] 1 tablet PO DAILYCM tablet 02/12/18 Sertraline HCl [Zoloft] 100 mg PO DAILY #30 tablet 02/12/18 fentaNYL patch [Duragesic patch] 25 mcg TRANSDERM. Q3D 6 Days #2 patch 02/12/18 predniSONE tablet 10 mg PO BID #14 tab 02/12/18 The following prescriptions were given: Acetaminophen [Tylenol] 1,000 mg PO TID@0600,1200,1800 #90 tablet Amlodipine [Norvasc] 5 mg PO DAILY #60 tablet Atorvastatin Calcium [Lipitor] 10 mg PO DAILY@2200 #60 tablet Cholecalciferol (VIT D3) [Vitamin D3] 2,000 unit PO DAILY #60 tablet Clonidine HCl [Catapres] 0.1 mg PO DAILY #60 tablet fentaNYL patch [Duragesic patch] 25 mcg TRANSDERM. Q3D 6 Days #2 patch Hydrocodone Bitart/Apap 5-325 [[place] 5/325] 1 tab PO QHS PRN PRN 7 Days #7 tab PRN Reason: Mod-Severe Pain (-11/22) Sertraline HCl [Zoloft] 100 mg PO DAILY #30 tablet predniSONE tablet 10 mg PO BID #14 tab Gabapentin [Neurontin] 300 mg PO TIDCM #90 capsule Primary Care Physician: [facility] Doctor,Out of [Primary Care Provider] - Test Results: Test results from this visit will be discussed in further detail at your follow- up appointment, if applicable. Please Follow Up With: [facility] - [facility] When: They will call you to set up an appointment Proposed Discharge Date: 02/13/18
[2018-02-12] MEDS: Gabapentin 300 MG Capsule PO ×2 (15:29→17:49)
[2018-02-12 20:53] VITALS: BP 136/64; PULSE 68; RESP 18; TEMP 37.1; O2SAT 95
[2018-02-12 21:30] VITALS: PULSE 68; RESP 18; O2SAT 95
[2018-02-12] MEDS: HYDROcodone Bitartrate/Apap 5/325 Tablet PO (21:33)
[2018-02-12] MEDS: Atorvastatin Calcium 10 MG Tablet PO (21:33)
--- NOTE | 2018-02-13 02:47 | NURSING ---
Reviewed and agree with [employer] documentation and FIMs charting.
[2018-02-13] MEDS: Acetaminophen 500 MG Tablet 1000 MG PO (06:52)
[2018-02-13 07:00] VITALS: PULSE 71; RESP 16; TEMP 36.8; O2SAT 96
[2018-02-13] MEDS: Gabapentin 300 MG Capsule PO ×2 (07:52→11:14)
[2018-02-13] MEDS: Multivitamins,Ther W-Minerals Tablet 1 TABLET PO (07:52)
[2018-02-13] MEDS: Sertraline 100 MG Tablet PO (07:52)
[2018-02-13] MEDS: predniSONE 20 MG Tablet PO (07:52)
[2018-02-13] MEDS: cloNIDine HCl 0.1 MG Tablet PO (07:54)
[2018-02-13] MEDS: amLODIPine 5 MG Tablet PO (07:54)
[2018-02-13 08:30] VITALS: BP 153/76
[2018-02-13 12:00] VITALS: BP 153/76; PULSE 71; RESP 16; TEMP 36.8; O2SAT 96
--- NOTE | 2018-02-13 12:00 | NURSING ---
Discharge instructions given and verbalized understanding.
--- NOTE | 2018-02-14 11:33 | CASEMGMT ---
Insurance Notified insurance of patient discharge on 02/13/18 to home with family. Auth#[id number] Zulay Raymundo, MISSION ASSESSMENT SPECIALIST, SHEET TAILER
== END 2018-02-13 12:00 | disposition home or self-care (01) | DRG 560 ==
PROVIDERS: Psychiatry & Neurology Neurology; Admitting Provider Psychiatry & Neurology Neurology; Visit Provider Psychiatry & Neurology Neurology
DX: Z47.89 Encounter for other orthopedic aftercare (principal); Z68.42 Body mass index [BMI] 45.0-49.9, adult; G95.89 Other specified diseases of spinal cord; G95.29 Other cord compression; E78.5 Hyperlipidemia, unspecified; G47.33 Obstructive sleep apnea (adult) (pediatric); I10 Essential (primary) hypertension; E66.9 Obesity, unspecified; Z71.3 Dietary counseling and surveillance; R29.6 Repeated falls; F32.9 Major depressive disorder, single episode, unspecified; Z87.891 Personal history of nicotine dependence; G62.9 Polyneuropathy, unspecified; Z98.1 Arthrodesis status
CPT/HCPCS: 36415; 80048; 85025; 97110; 97116; 97163; 97166; 97530; 97535; 97802

== ENCOUNTER 2018-04-17 13:30 | Outpatient (RCR) | payer OTHER, SELFPAY ==
--- NOTE | 2018-02-22 13:25 | HP.PTEVAL ---
Patient's Visit Information BARBARA KARIMI is a 62 year old F referred to Physical Therapy by JOSE CallC with a diagnosis of DEBILITY,S/P ACDF C3-4 AND BONE GRAFT. Date of Evaluation: 02/22/18 Physical Therapist: Ghassan Aguilar, PT, Cert MDT, OCS - Visit Plan Frequency: 2x /Week Duration: 4 Weeks Plan: PATIENT WILL BE SEEING OT FOR UE. CERVICAL /POSTURAL EX'S ,NUSTEP,LE STRENGTHENING,BALANCE AND GAIT TRAINING - Subjective Findings: This 62 y/o female presents to physical therapy with s/p ACDF C3-4 with bone graft on Feb 02 2018 at [facility] done by DR Jessica Dunn. Patient was tranferred to TCU at [facility] on then d/c to home Feb 13 2018. Patient as d/c with fww. Patient to use soft collar when in car no lifting greater than 8# . Patient seen surgeon last Feb 15 okay to lift 20# in 3 months.RTD Mar 10.Patient able to RTW partime Mar 05 2018.Patient prior to surgery use cane. Patient has niece lives with patient. HOME SITUATION: raunch 2step with bilateral rails ans grab rails. Patient tub/shower set up with handrails with tub seat. Patient able to dress and self hygine.Patient major is general weakness and OA in knees. Patient had MRI stenosis .Denies parathesia/tingling. Patient ghas cervical pain to UT ache. Pain affects sleeping. Patient symptoms post surgey affects QOL and function. Patient prior to surgery fell several times. SOCAIL: LIVES NEICE. 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 GAIT: Ambulate with bilateral knee varus slow kamar reciprocal pattern. NEURO: denies parathesia/tingling ,reflexes C5-6-7 2/3. SKIN : inscion well approximate. BUE: AROM WFL. MMT: right UE grossly 4/5 except shoulder 3+/5,left grossly 3+/5 ,shoulder 3/5 RTC 2/5 supraspinatous,infraspinatous. CERVICAL ROM: flexion min ,mod loss,lateral flexion /rotation mod left ,right min/mod loss,. extension mod loss. MMT:quads/hams 4-/5,hip flexion right 4-/5,left 3+/5,ankle 4/5. BALANCE: fair with fww. - Special Tests C/S Radiculapathy - Left Upper limb tension test: Negative C/S Radiculapathy - Right Upper limb tension test: Negative - Goals Goal 1:: Independant with HEP. Goal Time Frame: 4-6 Weeks Goal 2:: Patient to improve gait community distance to return to work Goal Time Frame: 4-6 Weeks Goal 3:: Patient increase strength BLE by 1/2 grade to improve function with ADL'S Goal Time Frame: 4-6 Weeks Goal 4:: Patient minimize pain with all ADL'S for function by 75% Goal Time Frame: 4-6 Weeks Goal 5:: Patient to imprfove Cervical KALI score by 5 points or greater to improve QOL. Goal Time Frame: 4-6 Weeks Goal 6:: Patient to Return to prior level of Function and ADL's job demnads with min limiations Goal Time Frame: 4-6 Weeks - Rehabilitation Potential Physical Therapy Diagnosis: This patient underwent s/p ACDF C3-4 and bone graft with impaired weaknes left greater than right ,balance ,gait deficits which impairs ADL'S and housework tasks along with comorbities with DJD bilateral knees with severe varus deformity thus benifit from skilled PT Rehabilitation Potential: Good - Anticipated Interventions Patient/Client Instruction: Educate patient on: Condition, Plan of Care For the Purpose of:: To decrease pain, To improve muscle performance and motor function, To improve ability to perform ADL's, To increase tolerance to activity/condition/position, To improve ability of physical actions for home/community/work/leisure, To improve gait and locomotor functions, To increase flexibility/ROM, To improve endurance, To improve balance, To improve safety with gait, To improve ability to perform tasks related to life management Therapeutic Exercise to Include: Strength training, Endurance training, Balance training, Gait and locomotor training Comment: BLE For the Purpose of:: To decrease pain, To increase ROM, To improve muscle performance and motor function, To increase tolerance to activity/condition/position, To improve performance and independence with ADL's, To improve ability of physical actions for home/community/work/leisure, To improve health of tissue, To decrease soft tissue restriction, To improve safety, To improve ability to perform tasks related to life management Functional Training to Include: Gait training For the Purpose of:: To improve endurance, To improve balance, To improve safety with gait Thank you for the opportunity to evaluate your patient. For Medicare and Medicare HMO plans, please review the plan of care and approve it. It will need to be FAXED BACK to us at [phone] for Medicare purposes. For Medicare only, by signing this I certify the plan of care. Please let me know if there are questions or concerns regarding this plan of care. Physician Signature: Date:
--- NOTE | 2018-02-23 10:18 | HP.OTEVAL_ITS ---
Patient's Visit Information BARBARA KARIMI is a 62 year old F, referred to Occupational Therapy by RONALD Call, with a diagnosis of ACDF C3-C4 and bone graft. Date of Evaluation: 02/22/18 Occupational Therapist: Doretha Coppola, MILIR/Adam, CHT - Subjective Subjective: PT states two weeks prior to her neck sx she started to lose sensation in strength in BUE. Sx was 02/02/18. Pt was admitted on 02/07/18 on [facility] Rehab unit and pt D/C from rehab unit on 2018. Pt states she gained use of her LE and UB, but continues to notice a decreasein FMS and UB strength and endurance. 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 pt does not feel at this time she can return to work due to her deficits. - Pain Neck 6 Pain Intensity Range: 4, 6 - ROM Forearm: pt demo limted left forearm supination to N. 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 - Goals Goal:: PT will demo an increase in sole ruffer strength by 20# to increase independent with basic occupations of daily living to return pt to PLOF by D/C. Pt will demo a increase in MMT of Left UE to 4+/5 to increase pts ind. with BADLs and IADLS by d/c Goal:: PT will demo full left forearm supination by d/c to increase ind. with money manipulation. Goal:: PT will demo the ability to manipulate coins with no more drop of coins than 3/10 to increase FMS by d/c. Pt will demo knowlage of work ergo- and keyboard set-up by d/c. pt will demo the abilty to type ind. with no more than 3 erros in 5 sentences by d/c - Rehabilitation General Assessment: PT demo with bilateral UE weakness- left more than right as well as a decrease in her fine motor skills- pt would benefit from skilled OT services 3x week for 4 weeks to engage pt in a PRE program and to challenge her FMS to return pt to PLOF and return to work. Pt agree with POC. Today pt was ed. in UB PRE and given handouts, pt demo understanding- Therapy will cont. to progress pt as she daxa. Rehabilitation Potential: Excellent - Anticipated Interventions Anticipated Interventions: Strengthening, Joint Protection/Energy Conservation, Ergonomic Education, Fine Motor Coord/Ilir - Visit Plan Frequency: 3x /Week Duration: 6 Weeks TEXT: Thank you for the opportunity to evaluate your patient. For Medicare and Medicare HMO plans, please review the plan of care and approve it. It will need to be FAXED BACK to us at [phone] for Medicare purposes. Please let me know if there are questions or concerns regarding this plan of care. Physician Signature: Date:
--- NOTE | 2018-03-27 11:26 | OTREVAL_ITS ---
Meghana Mathias, BOAT CANVAS MAKER AND INSTALLER-C, It has been my pleasure to treat BARBARA KARIMI over the last 10 visits for ACDF C3-C4 and bone graft. Please see the progress note below for an update on the occupational therapy plan of care! Subjective: pt arrives to OT session for RE-Eval following 10 OT visits. Pt states she will return to her pool workout this week. pt reports she is making gains with her recovery. States some things are getting better like washing her hair and writing. States the endurance is not there and she still compensates for lack of strength. Objective/Function: right software tools engineer 58#. left software tools engineer 55#. right lateral pinch 15#. left lateral pinch 14#. right tripod 18#. left tripod 12#. Pt currently demo BUE ROM WNL. left UE continues to initiate compensitory shoulder flex with initiation of left shoulder abduction. left forearm sup is WFL, but difficult for pt to perform. PT demo in crease MMT of right UE to 4+/5 grossly throughout, left UE 4- grossly throughout. pt would benefit from further skilled OT services to ensure continued gains in functional strength and ROM. Plan Frequency: Every 2 weeks Duration: May 28, 2018 Plan: OT to cont POC to increase pts functional strength -pt to return to her pool workout. Goals - Goals Goal:: PT will demo an increase in software tools engineer strength by 20# to increase independent with basic occupations of daily living to return pt to PLOF by D/C. Pt will demo a increase in MMT of Left UE to 4+/5 to increase pts ind. with BADLs and IADLS by d/c Goal:: PT will demo full left forearm supination by d/c to increase ind. with money manipulation. Goal:: PT will demo the ability to manipulate coins with no more drop of coins than 3/10 to increase FMS by d/c. Pt will demo knowlage of work ergo- and keyboard set-up by d/c. pt will demo the abilty to type ind. with no more than 3 erros in 5 sentences by d/c Anticipated Interventions Anticipated Interventions: Strengthening, Joint Protection/Energy Conservation, Ergonomic Education, Fine Motor Coord/Ilir Please do not hesitate to contact me at [phone] by phone or if you have questions or concerns regarding this new plan of care! Sincerely, Doretha Coppola, OTR/L, CHT
--- NOTE | 2018-04-17 16:00 | HP.PTDCSUM ---
HP - PT D/C Summary It has been my pleasure to treat BARBARA KARIMI under orders from Meghana Mathias, JOSEC, for the diagnosis of DEBILITY,S/P ACDF C3-4 AND BONE GRAFT for a total of 12 visit(s). Discharge Date: 04/17/18 Please see the following information for a summary of their discharge status. - Subjective Subjective: MORE PAIN IN KNEES YESTERDAY. LEFT SHOULDER ACHES . GOAL IS TO GET KNEE REPLACEMENT. NO NECK PAIN - Pain Bilateral Neck Pain Intensity (Out of 10): 0 Left Shoulder Pain Intensity (Out of 10): 4 - Overall Improvement % Improvement: 90 - Objective Objective/Function: POSTURE: mild foward posture rounded shoulders. GAIT: fww Independant knee valgus. MMT: quads/hams 4/5,hip 4-/5. CERVICAL ROM: flexion min loss,lateral flexion/rotation min loss,ext min/mod loss. MMT: right UE 4/5 ,shoulder 4-/5,left 4-/5 ,except ER 3/5,deltoid 3+/5 - Goals Goal 1:: Independant with HEP. Goal Progress: Goal Met Goal 2:: Patient to improve gait community distance to return to work Goal Progress: Goal Met Goal 3:: Patient increase strength BLE by 1/2 grade to improve function with ADL'S Goal Progress: Goal Met Goal 4:: Patient minimize pain with all ADL'S for function by 75% Goal Progress: Goal Met Goal 5:: Patient to imprfove Cervical KALI score by 5 points or greater to improve QOL. 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 Thank you for the referral of this patient. Sincerely, Ghassan Aguilar, PT, Cert MDT, OCS
--- NOTE | 2018-06-06 14:34 | HP.OT.NRP ---
HP - Discharge Summary - Patient Information BARBARA KARIMI was seen in my office for initial evaluation on 02/22/18. The following Plan of Care was established for this patient: Initial Frequency: Every 2 weeks Initial Duration: May 28, 2018 Plan: OT to cont POC to increase pts functional strength -pt to return to her pool workout. - Anticipated Interventions Anticipated Interventions: Strengthening, Joint Protection/Energy Conservation, Ergonomic Education, Fine Motor Coord/Ilir This patient was last seen in our office 04/27/18. Pertinent comments regarding their Occupational therapy will appear below: pt was progressing well with therapy and progressed to a pool program with health and wellness. pt has not scheduled further apt and is d/c at this time. At this point I will be discontinuing this patient from occupational therapy. I would be happy to see this patient again in the future if found appropriate by the physician. Thank you! Doretha Coppola, OTR/L, CHT
== END 2018-04-17 19:00 | disposition home or self-care (01) ==
LOC: OT 13:30
PROVIDERS: Referring Provider Nurse Practitioner Acute Care; Visit Provider Nurse Practitioner Acute Care
DX: Z98.890 Other specified postprocedural states (principal); R53.81 Other malaise
CPT/HCPCS: 97110; 97162; 97166; 97168; 97530

== ENCOUNTER 2018-05-25 09:40 | Emergency (ER) | payer OTHER, SELFPAY ==
[2018-05-25 09:41] VITALS: BP 184/76; PULSE 85; RESP 16; TEMP 36.7; O2SAT 94; BMI 43.5
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
== END 2018-05-25 11:07 | disposition home or self-care (01) ==
LOC: ED 10:55
PROVIDERS: Emergency Provider Emergency Medicine
DX: S13.9XXA Sprain of joints and ligaments of unspecified parts of neck, initial encounter (principal); Z87.891 Personal history of nicotine dependence; V49.49XA Driver injured in collision with other motor vehicles in traffic accident, initial encounter; Y93.I9 Activity, other involving external motion; Y92.410 Unspecified street and highway as the place of occurrence of the external cause; Y99.8 Other external cause status
CPT/HCPCS: 72125; 99282; J7050

== ENCOUNTER 2020-12-08 15:30 | Inpatient (IN) | payer OTHER, MEDICARE, SELFPAY ==
[2020-12-08 16:00] VITALS: BP 133/62; PULSE 85; RESP 14; TEMP 36.4; O2SAT 95
[2020-12-08 16:33] VITALS: BMI 45.1
[2020-12-08 16:35] VITALS: BP 133/62; PULSE 85; RESP 14; TEMP 36.4; O2SAT 95
--- NOTE | 2020-12-08 19:37 | HP.PCM_ITS ---
HPI - General General Date of Admission: 12/08/20 HPI Narrative BARBARA KARIMI, is a 65 Female who presents with following. Patient has thoracic spinal stenosis with myelopathy. 11/24/2020 Patient admitted to [facility] underwent thoracic laminectomy and fusion surgery. Post operative course complicated by pseudogout of right knee requiring colchicine, intraarticular steroid injection. Patient transferred to [facility] for Skilled PT/OT. 12/08/2020 Admit to TCU with debility, here for rehabilitation, strengthening, prior to discharge home with daughter. Medical records are limited. [facility] Medical History (Updated 12/08/20 @ 19:[address] Darrel Karimi MD) Debility Depression Herpes zoster Hyperlipidemia Hypertension Muscle spasm Neuropathic pain Osteoarthritis Osteoarthritis of knees, bilateral Pseudogout of right knee Thoracic spinal stenosis Vitamin D deficiency Home Medications acetaminophen 500 mg PO Q12H PRN 12/08/20 [History Last Taken Unknown] amlodipine 5 mg PO DAILY 12/08/20 [History Last Taken Unknown] atorvastatin 10 mg PO DAILY@2200 12/08/20 [History Last Taken Unknown] cholecalciferol (vitamin D3) [Vitamin D3] 2,000 unit PO DAILY 12/08/20 [History Last Taken Unknown] clonidine HCl 0.1 mg PO BID 12/08/20 [History Last Taken Unknown] diclofenac sodium [Voltaren Arthritis Pain] 1 ea TOPICAL Q6H 12/08/20 [History Last Taken Unknown] docusate sodium [Colace] 100 mg PO BID 12/08/20 [History Last Taken Unknown] gabapentin 300 mg PO BID 12/08/20 [History Last Taken Unknown] heparin, porcine (PF) 5,000 unit SUBCUT Q8H 12/08/20 [History Last Taken Unknown] losartan-hydrochlorothiazide 1 tab PO DAILY 12/08/20 [History Last Taken Unknown] methocarbamol [Robaxin-750] 750 mg PO Q8H 12/08/20 [History Last Taken Unknown] multivitamin,bc-oird-rgmyvzzj 1 tab PO DAILYCM 12/08/20 [History Last Taken Unknown] naloxone 2 mg INTRANASAL PRN PRN 12/08/20 [History Last Taken Unknown] nitrofurantoin monohyd/m-cryst [Macrobid] 100 mg PO BID 12/08/20 [History Last Taken Unknown] oxycodone-acetaminophen 1 - 2 tab PO Q4H PRN 12/08/20 [History Last Taken Unknown] oxycodone-acetaminophen [Percocet] 2 tab PO Q6H 12/08/20 [History Last Taken Unknown] prednisone 10 mg PO BID 12/08/20 [History Last Taken Unknown] sennosides [senna] 17.2 mg PO BID PRN 12/08/20 [History Last Taken Unknown] sertraline 100 mg PO DAILY 12/08/20 [History Last Taken Unknown] triamterene-hydrochlorothiazid 1 cap PO DAILY 12/08/20 [History Last Taken Unknown] valacyclovir 1,000 mg PO TID 12/08/20 [History Last Taken Unknown] Allergy/AdvReac Type Severity Reaction Status Date / Time lorazepam [From Ativan] Allergy Hives Verified 05/25/18 09:41 neomycin Allergy Hives Verified 05/25/18 09:41 Surgical History (Updated 12/08/20 @ 19:[address] Darrel Karimi MD) History of adenoidectomy Hx of tonsillectomy Social History (Updated 12/08/20 @ 19:[address] Darrel Karimi MD) household members: family Smoking Status: Never smoker alcohol intake: never substance use type: does not use ROS Constitutional Constitutional: Denies chills, fever(s) or weight gain ENT HEENT: Denies headache(s), nasal congestion or nasal discharge Cardiovascular Cardiovascular: Denies chest pain or palpitations Respiratory/Chest Respiratory/Chest: Denies cough, excessive phlegm production or shortness of breath with exertion Gastrointestinal Gastrointestinal: Denies abdominal pain, nausea or vomiting Genitourinary Genitourinary: Denies dysuria Musculoskeletal Musculoskeletal: Denies joint pain or joint swelling Integumentary Integumentary: Denies rash or wounds Neurologic Neurologic: Denies focal weakness, numbness or tingling Psychiatric Psychiatric: Reports auditory hallucinations; Denies anxiety, depression, homicidal ideation or suicidal ideation Vital Signs Vital Signs Vital Signs: 12/08/20 16:00 12/08/20 16:35 Temperature 97.6 F L 97.6 F L Temperature Source Temporal Temporal Pulse Rate 85 85 Respiratory Rate 14 14 Blood Pressure 133/62 H 133/62 H Blood Pressure Mean 85 85 Blood Pressure Source Monitor Monitor Blood Pressure Position Semi-Fowlers Semi-Fowlers Blood Pressure Location Left Arm Left Arm Pulse Ox 95 95 Oxygen Delivery Method Room Air Room Air Weight Weight: 127.006 kg Body Mass Index (BMI) 45.1 Physical Exam Const alert and oriented x3 General Appearance: cooperative HEENT normocephalic Eyes PERRL and EOMs intact bilaterally Neck supple, no JVD and no carotid bruits Resp normal respiratory effort, normal air movement and clear to auscultation bilaterally Cardio regular rate and regular rhythm GI normal to inspection, nondistended, normoactive bowel sounds, non-tender and non-distended Extremity normal capillary refill General Extremity: Negative for edema Skin no rashes or lesions noted General Skin Exam: no breakdown Psych affect normal Appearance: appropriate Assessment & Plan Assessment/Plan (1) Debility: (2) Thoracic spinal stenosis: (3) Pseudogout of right knee: (4) Osteoarthritis of knees, bilateral: (5) Hypertension: (6) Herpes zoster: (7) Hyperlipidemia: (8) Vitamin D deficiency: (9) Osteoarthritis: (10) Neuropathic pain: (11) Muscle spasm: (12) Depression: PLAN: 65 year old female with below past medical history underwent thoracic laminectomy/fusion 11/24/2020, postoperative course complicated by pseudgout right knee, admitted to TCU with debility, here for rehabilitation, strengthening, prior to discharge home with daughter. * Debility - PT/OT. * Pain - Tylenol 1000mg Q6H prn pain (1-10), Oxycodone 10mg Q6H, Diclofenac topical Q6H. * Bowel - Miralax 17gm daily, Senna/colace 2 tablets twice daily, Dulcolax 10mg daily prn. * Adult immunization - Administer prevnar 13, pneumovax 23, fluzone, covid19 vaccine as appropriate. * DVT prophylaxis - Lovenox 40mg sc daily. * Herpes Zoster - Acyclovir 800mg 5x/day x 7 days. * Hypertension - Losartan 100mg daily, Clonidine 0.1mg bid, Amlodipine 5mg daily, Maxzide 37.5/25mg daily. * Hyperlipidemia - Atorvastatin 10mg daily. * Vitamin D deficiency - D3 2000IU daily. * Neuropathic pain - Gabapentin 300mg bid. * Skin irritation - Calmoseptine topical twice daily. * Muscle spasm - Methocarbamol 750mg Q8H. 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
[2020-12-08] MEDS: Methocarbamol 750 MG Tablet PO (23:19)
[2020-12-08] MEDS: Senna Tablet 2 TABLET PO (23:19)
[2020-12-08] MEDS: Acyclovir 800 MG Tablet PO (23:20)
[2020-12-08] MEDS: Atorvastatin Calcium 10 MG Tablet PO (23:20)
[2020-12-08] MEDS: oxyCODONE 5 MG Tablet 10 MG PO (23:21)
[2020-12-09] MEDS: oxyCODONE 5 MG Tablet 10 MG PO ×3 (05:51→18:21)
[2020-12-09] MEDS: cloNIDine HCl 0.1 MG Tablet PO ×2 (05:52→18:20)
[2020-12-09] MEDS: Methocarbamol 750 MG Tablet PO ×3 (05:52→21:21)
[2020-12-09] MEDS: Losartan Potassium 100 MG Tablet PO (05:52)
[2020-12-09] MEDS: Triamterene 37.5MG/Hctz 25MG Capsule 1 CAP PO (05:52)
[2020-12-09] MEDS: Senna Tablet 2 TABLET PO ×2 (05:53→18:20)
[2020-12-09] MEDS: Acyclovir 800 MG Tablet PO ×5 (05:53→21:21)
[2020-12-09] MEDS: Sertraline 100 MG Tablet PO (05:53)
[2020-12-09] MEDS: amLODIPine 5 MG Tablet PO (05:53)
[2020-12-09] MEDS: Enoxaparin 40 MG/0.4 ML Syringe SC (05:54)
[2020-12-09] MEDS: Polyethylene Glycol 3350 17 GM PACKET PO (05:54)
[2020-12-09 06:01] VITALS: BP 150/79; PULSE 88; RESP 20; TEMP 36.1; O2SAT 95
[2020-12-09 06:04] LABS: Absolute Lymphocyte Count 2.43 X10^3/uL (0.83-4.51); Absolute Neutrophil Count 8.8 X10^3/uL (2.0-7.7); Basophil# 0.11 X10^3/uL; Basophil% 0.9 % (0-1); Eosinophil# 0.32 X10^3/uL; Eosinophils% 2.5 % (0-5); Hematocrit 38.7 % (37-47); Hemoglobin 12.4 g/dL (12.0-15.0); Lymphocyte # 2.43 X10^3/ul (0.83-4.51); Lymphocyte % 19.1 % (19-41); Mean Corpuscular Hgb 27.3 pg (27.0-32.0); Mean Corpuscular Volume 85.2 fL (81-99); Mean Platelet Vol. 9.2 fl (6.2-12.0); Monocyte# 1.01 X10^3/uL; Monocyte% 7.9 % (0-10); NRBC Flagged by Analyzer 0 % (0-5); Neutrophil # 8.75 X10^3/uL (2.7-7.7); Neutrophil % 68.6 % (47-70); Platelet Count 659 K/mm3 (150-450); RBC Distribution Width CV 13.7 % (11.6-14.6); RBC Distribution Width SD 42.3 fl (35.1-43.9); Red Blood Count 4.54 M/mm3 (4.2-5.4); White Blood Count 12.8 K/mm3 (4.4-11.0)
[2020-12-09 06:33] LABS: Anion Gap 9 (5-15); BUN 29 mg/dL (7-18); BUN/Creat Ratio 29.2 RATIO (10-20); Calcium,Total 10.4 mg/dL (8.5-10.1); Chloride 96 mmol/L (98-107); Creatinine, Serum 0.99 mg/dL (0.55-1.02); EST Glomerular Filtration Rate 59 mL/min (>60); Est Glom Filt Rate - Afr Amer 72 mL/min (>60); Estimated Creatinine Clearance 51.62 ml/min; Glucose 143 mg/dL (74-106); Potassium 3.8 mmol/L (3.5-5.1); Sodium Level 132 mmol/L (136-145)
[2020-12-09] MEDS: Cholecalciferol (VIT D3) 25 MCG TABLET (1,000 UNITS) 50 MCG PO (08:47)
[2020-12-09] MEDS: Gabapentin 300 MG Capsule PO ×2 (08:48→21:21)
--- NOTE | 2020-12-09 11:27 | NURSING ---
Resident requesting her Neurontin be given in the AM and at HS. Times changed to be given per resident request.
--- NOTE | 2020-12-09 12:23 | CASEMGMT ---
Social Work SW met w/pt in room for initial assessment. SW confirmed pt's code status as FULL CODE. Pt completed MOLST form, communication to physician, form in chart. SW reviewed w/pt that she will have a plan of care meeting, likely next, to discuss progress and anticipated discharge plan. SW explained that her insurance will let us know how long she is authorized to be here. Pt states understanding. Pt's plan from here is to return home, she is open to home health or outpt therapy. Pt has LW/POA forms started, may want to complete them while here. Pt came in from [facility] after being at [facility]. Pt was there for one week and did not speak highly of the care there. SW offered supportive listening to pt. Plan from here will be for pt to return home w/home health care vs outpt PT.
[2020-12-09 13:59] VITALS: BP 126/65; PULSE 117; RESP 18; TEMP 36.1; O2SAT 92
[2020-12-09] MEDS: Tuberculin,Purif.prot.deriv. 50 TU/ML Vial 0.1 ML ID (14:24)
--- NOTE | 2020-12-09 18:25 | NURSING ---
Does not feel she needs calmoseptine to buttock and denies soreness to area. Will continue to monitor area.
[2020-12-09] MEDS: Atorvastatin Calcium 10 MG Tablet PO (21:21)
[2020-12-10] MEDS: oxyCODONE 5 MG Tablet 10 MG PO ×4 (00:02→17:48)
--- NOTE | 2020-12-10 04:14 | NURSING ---
GENERAL PRODUCTION MANAGER reports patient report of right anterior thigh shingles lesions open, pt. assessed, denies scratching site denies pain or itching to site. No heat, no edema, no drainage observed to site, DSD applied. No distress observed or reported. Denies requests. Call light in reach.
[2020-12-10 05:30] VITALS: BP 113/61; PULSE 69
[2020-12-10] MEDS: Enoxaparin 40 MG/0.4 ML Syringe SC (05:34)
[2020-12-10] MEDS: Triamterene 37.5MG/Hctz 25MG Capsule 1 CAP PO (05:35)
[2020-12-10] MEDS: Losartan Potassium 100 MG Tablet PO (05:35)
[2020-12-10] MEDS: Senna Tablet 2 TABLET PO ×2 (05:35→17:47)
[2020-12-10] MEDS: amLODIPine 5 MG Tablet PO (05:35)
[2020-12-10] MEDS: Methocarbamol 750 MG Tablet PO ×3 (05:35→20:23)
[2020-12-10] MEDS: Sertraline 100 MG Tablet PO (05:35)
[2020-12-10] MEDS: Acyclovir 800 MG Tablet PO ×5 (05:35→20:23)
[2020-12-10] MEDS: cloNIDine HCl 0.1 MG Tablet PO ×2 (05:36→17:47)
[2020-12-10] MEDS: Polyethylene Glycol 3350 17 GM PACKET PO (05:53)
--- NOTE | 2020-12-10 06:00 | NURSING ---
Pt. requests NET WEB DEVELOPER to assist patient to sit on side of bed. Educated by this nurse on safety, encouraged to have staff present when sitting on edge of bed. Pt. becomes tearful reminiscing about prior fall from bed at prior stay at different facility states therapy says I can sit on the edge of the bed here, the last place didn't give me good care, I was told I could sit on the edge of the bed here by therapy. Patient states I can sit up on my own, I don't need help, therapy gave me a foot stool so I don't fall forward, they said I am ok to sit up alone. Patient declines to sit up on bed when staff present, states wishes to sit up on side of bed when alone. Patient demonstrates ability to sit up with minimal assist. Educated on medications that may cause drowsiness and encouraged patient to call for assist when feeling drowsy, unsteady or when ready to sit up or lie back down, continued education on benefit of staff being present when patient wishes to sit on edge of bed. Patient presents as A&Ox3, able to voice needs and verbalizes understanding of safety precautions to prevent falls and promote safety. Declines to have staff present despite education.
[2020-12-10] MEDS: Gabapentin 300 MG Capsule PO ×2 (08:06→20:22)
[2020-12-10] MEDS: Cholecalciferol (VIT D3) 25 MCG TABLET (1,000 UNITS) 50 MCG PO (08:06)
[2020-12-10] MEDS: Acetaminophen 500 MG Tablet 1000 MG PO (09:41)
[2020-12-10] MEDS: MethylPREDNISolone DosePak 4 MG BOX PO ×3 (12:16→20:20)
[2020-12-10 15:08] VITALS: BP 121/68; PULSE 89; RESP 16; TEMP 36.3; O2SAT 98
[2020-12-10] MEDS: Atorvastatin Calcium 10 MG Tablet PO (20:20)
[2020-12-10] MEDS: Bisacodyl 5 MG Tablet 10 MG PO (20:20)
[2020-12-10 21:37] VITALS: PULSE 130; RESP 14; O2SAT 95
[2020-12-11] VITALS (7 sets, daily range): BP systolic 80–111; BP diastolic 44–65; PULSE 84–130; RESP 16–20; TEMP 35.9–36.2; O2SAT 94–96
[2020-12-11] MEDS: oxyCODONE 5 MG Tablet 10 MG PO ×4 (00:02→17:43)
[2020-12-11] MEDS: Menthol/Lanolin/Calamine/Znox 113 GM Tube 1 APPLIC TOPICAL (05:51)
[2020-12-11] MEDS: Enoxaparin 40 MG/0.4 ML Syringe SC (05:51)
[2020-12-11] MEDS: Polyethylene Glycol 3350 17 GM PACKET PO (05:52)
[2020-12-11] MEDS: Senna Tablet 2 TABLET PO ×2 (05:53→17:44)
[2020-12-11] MEDS: cloNIDine HCl 0.1 MG Tablet PO ×2 (05:53→17:44)
[2020-12-11] MEDS: Triamterene 37.5MG/Hctz 25MG Capsule 1 CAP PO (05:53)
[2020-12-11] MEDS: Losartan Potassium 100 MG Tablet PO (05:54)
[2020-12-11] MEDS: Methocarbamol 750 MG Tablet PO ×3 (05:54→21:11)
[2020-12-11] MEDS: amLODIPine 5 MG Tablet PO (05:54)
[2020-12-11] MEDS: Acyclovir 800 MG Tablet PO ×5 (05:54→21:11)
[2020-12-11] MEDS: Sertraline 100 MG Tablet PO (05:54)
[2020-12-11] MEDS: MethylPREDNISolone DosePak 4 MG BOX PO ×4 (07:55→21:11)
[2020-12-11] MEDS: Gabapentin 300 MG Capsule PO ×2 (07:55→21:11)
[2020-12-11] MEDS: Cholecalciferol (VIT D3) 25 MCG TABLET (1,000 UNITS) 50 MCG PO (07:55)
[2020-12-11] MEDS: Acetaminophen 500 MG Tablet 1000 MG PO (09:13)
--- NOTE | 2020-12-11 10:13 | NURSING ---
ALL CARE PROVIDED IN ROOM D/T CONTACT PRECAUTIONS FROM SHINGLES.
--- NOTE | 2020-12-11 10:29 | EKG12_ITS ---
Test Reason : AFIB Blood Pressure : / mmHG Vent. Rate : 120 BPM Atrial Rate : 147 BPM P-R Int : 000 ms QRS Dur : 086 ms QT Int : 322 ms P-R-T Axes : 000 039 007 degrees QTc Int : 455 ms Atrial fibrillation Abnormal ECG No previous ECGs available Confirmed by MADDY SPIVEY, HEMA ([id number]), editorial project manager MIGUEL GEORGE ([id number]) on 12/15/2020 12:27:25 P M Referred By: YESSENIA Confirmed By:CHANTE CASTAÑEDA MD
--- NOTE | 2020-12-11 10:31 | NURSING ---
HR 120'S AND IRREGULAR DURING ASSESSMENT. R' DENIES CP/DIZZINESS/OR SOB. DOES NOT HAVE A HX OF AFIB/AFLUTTER. NOTIFIED DR. CASAS. EKG ORDERED. CALLED R.T. TO PERFORM EKG.
--- NOTE | 2020-12-11 11:12 | NURSING ---
Addendum entered by Tabby Chan 12/11/20 13:34: BOLUS COMPLETE. BP 98/63, HR [address] CASAS. NO FURTHER ORDERS AT THIS TIME. Addendum entered by Tabby Chan 12/11/20 11:55: R; NOTIFIED OF ALL NEW ORDERS. AGREEABLE. IV PLACED IN LEFT HAND BY Georgie AVERY RN. AWAITING IVF. PHARMACY NOTIFIED. Original Note: DR CASAS NOTIFIED THAT R' CURRENTLY IN AFIB. FOLLOWING ORDERS WERE GIVEN: DC NORVASC, LOVENOX, COZAAR, ANDDYAZINE. START METOPROLOL 25MG BID, FIRST DOSE NOW. START XARELTO 20MG DAILY, FIRST DOSE NOW. GIVE 1,000ML NS BOLUS AD RECHECK BP AFTER. (BP 92/65).
[2020-12-11] MEDS: Metoprolol Tartrate 25 MG Tablet PO ×2 (11:42→17:44)
[2020-12-11] MEDS: Rivaroxaban 20 MG Tablet PO (11:54)
--- NOTE | 2020-12-11 11:54 | PCM.PN.RX ---
Progress Note - Pharmacy Subjective: TCU Admission Objective: Allergies lorazepam [From Ativan] Allergy (Verified 05/25/18 09:41) Hives neomycin Allergy (Verified 05/25/18 09:41) Hives Current Medications Generic Name Dose Route Start Last Admin Trade Name Freq PRN Reason Stop Dose Admin Acetaminophen 1,000 mg 12/08/20 19:56 12/11/20 09:13 Acetaminophen 500 Mg Tablet PO 1,000 mg Q6H PRN PRN Administration Pain Score 1-10 Acyclovir 800 mg 12/08/20 18:00 12/11/20 10:01 Acyclovir 800 Mg Tablet PO 12/15/20 18:01 800 mg 5X/DAY SALVADOR Administration Atorvastatin Calcium 10 mg 12/08/20 22:00 12/10/20 20:20 Atorvastatin Calcium 10 Mg Tablet PO 10 mg DAILY@2200 SALVADOR Administration Bisacodyl 10 mg 12/08/20 19:54 12/10/20 20:20 Bisacodyl 5 Mg Tablet PO 10 mg DAILY PRN Administration CONSTIPATION Calamine/Phenol 1 applic 12/09/20 06:00 12/11/20 05:51 Menthol/Lanolin/Calamine/Znox 113 Gm Tube TOPICAL 1 applic BID SALVADOR Administration Protocol Cholecalciferol 50 mcg 12/09/20 08:00 12/11/20 07:55 Cholecalciferol (Vit D3) 25 Mcg Tablet (1,000 Units) PO 50 mcg DAILYCM SALVADOR Administration Clonidine 0.1 mg 12/08/20 18:00 12/11/20 05:53 Clonidine Hcl 0.1 Mg Tablet PO 0.1 mg BID SALVADOR Administration Diclofenac Sodium 1 applic 12/09/20 00:00 12/11/20 11:42 Diclofenac 1% Gel 100gm Tube TOPICAL 1 applic Q6 SALVADOR Administration Gabapentin 300 mg 12/09/20 22:00 12/11/20 07:55 Gabapentin 300 Mg Capsule PO 300 mg SALVADOR Administration Sodium Chloride 1,000 mls @ 999 mls/hr 12/11/20 11:08 IV 12/11/20 12:08 .Q1H1M ONE Methocarbamol 750 mg 12/08/20 22:00 12/11/20 05:54 Methocarbamol 750 Mg Tablet PO 750 mg Q8H SALVADOR Administration Methylprednisolone 4 mg 12/10/20 12:00 12/11/20 11:39 Methylprednisolone Dosepak 4 Mg Box PO 12/15/20 04:59 4 mg 0800,1200,1700 SALVADOR Administration Taper Metoprolol Tartrate 25 mg 12/11/20 11:15 12/11/20 11:42 Metoprolol Tartrate 25 Mg Tablet PO 25 mg BID SALVADOR Administration Oxycodone HCl 10 mg 12/08/20 18:00 12/11/20 11:42 Oxycodone 5 Mg Tablet PO 10 mg Q6H SALVADOR Administration Polyethylene Glycol 17 gm 12/09/20 06:00 12/11/20 05:52 Polyethylene Glycol 3350 17 Gm Packet PO 17 gm DAILY SALVADOR Administration Rivaroxaban 20 mg 12/11/20 17:00 Rivaroxaban 20 Mg Tablet PO DINNER@1700 SALVADOR Senna 2 tablet 12/08/20 20:00 12/11/20 05:53 Senna Tablet PO 2 tablet BID SALVADOR Administration Sertraline HCl 100 mg 12/09/20 06:00 12/11/20 05:54 Sertraline 100 Mg Tablet PO 100 mg DAILY SALVADOR Administration Sodium Chloride 10 - 40 ml 12/11/20 11:26 0.9% Saline Lock 10 Ml Syringe IV UD PRN SALINE FLUSH Tuberculin PPD 0.1 ml 12/16/20 10:00 Tuberculin,Purif.Prot.Deriv. 50 Tu/Ml Vial ID 12/16/20 10:01 X1 ONE Problem List (Last Updated 12/08/20 @ 19:[address] Darrel Karimi MD) Depression (Acute) Muscle spasm (Acute) Neuropathic pain (Acute) Osteoarthritis (Acute) Vitamin D deficiency (Acute) Hyperlipidemia (Acute) Herpes zoster (Acute) Hypertension (Chronic) Osteoarthritis of knees, bilateral (Acute) Pseudogout of right knee (Acute) Thoracic spinal stenosis (Acute) Debility (Acute) Vital Signs Temp Pulse Resp BP Pulse Ox 97.1 F L 130 H 20 H 92/65 94 12/11/20 10:58 12/11/20 11:42 12/11/20 10:58 12/11/20 10:58 12/11/20 10:58 Oxygen Delivery Method Room Air Weight: 127.006 kg Body Mass Index (BMI) 45.1 Sodium 132 mmol/L (136-145) L 12/09/20 05:48 Potassium 3.8 mmol/L (3.5-5.1) 12/09/20 05:48 Chloride 96 mmol/L (98-107) L 12/09/20 05:48 Carbon Dioxide 27.0 mmol/L (21.0-32.0) 12/09/20 05:48 Anion Gap 9 (5-15) 12/09/20 05:48 BUN 29 mg/dL (7-18) H 12/09/20 05:48 Creatinine 0.99 mg/dL (0.55-1.02) 12/09/20 05:48 Est GFR (MDRD) Af Amer 72 mL/min (>60) 12/09/20 05:48 Est GFR (MDRD) Non-Af 59 mL/min (>60) L 12/09/20 05:48 BUN/Creatinine Ratio 29.2 RATIO (10-20) H 12/09/20 05:48 Glucose 143 mg/dL (74-106) H 12/09/20 05:48 Assessment/Plan: 1. Pain: acetaminophen 1000mg PO Q6H PRN pain 1-10, oxycodone 5mg PO Q6H and diclofenac 1% gel topically Q6. Please continue to monitor for increased pain, PRN usage, constipation and respiratory depression. 2. Herpes zoster: acyclovir 800mg PO 5x/day thru 12/15/20. Please continue to monitor renal function and for improvement in shingles. 3, Hypertension/atrial fibrillation (per nursing note): clonidine 0.1mg PO BID, metoprolol tartrate 25mg PO BID and rivaroxaban 20mg PO DINNER. Please continue to monitor HR (last 130), BP (last 92/65), S/S of bleeding and hemoglobin (last 12.4g/dL). *4. Hyperlipidemia: atorvastatin 10mg PO daily. Please consider ordering a lipid panel (last panel from 12/10/2014) if clinically appropriate. Thanks. Please continue to monitor for muscle pain. 5. Neuropathic pain: gabapentin 300mg PO BID. Please continue to monitor for pain, confusion and renal function. 6. Muscle spasm: methocarbamol 750mg PO Q8. Please continue to monitor for drowsiness and anticholinergic side effects (this medication is on the BEERs list.) *7. Vitamin D deficiency: cholecalciferol 50mcg PO daily. Please consider ordering a vitamin D level if clinically appropriate. Last level from 12/10/2014. Thanks. Psychotropic Medications: 1. Depression: sertraline 100mg PO daily. Please see physician note regarding GDR. *Unnecessary Medications: methylprednisolone taper. I did not see a documented indication for this medication. Please consider adding and indication. Thanks. Bowel Regimen: Miralax 17gm PO daily, senna 2T PO BID and bisacodyl 10mg PO daily PRN constipation. Please continue to monitor for S/S of constipation and PRN usage. Date of Note:: 12/11/20
[2020-12-11] MEDS: 0.9% Saline Lock 10 ML Syringe IV (12:10)
[2020-12-11] MEDS: 0.9% Normal Saline 1,000 ML 999 ML IV (12:10)
--- NOTE | 2020-12-11 14:28 | PN.TCU_ITS ---
Subjective Subjective Nursing staff notified me resident has tachycardia in the 120's, and hypotension 90's systolic. I saw and examined patient and she is asymptomatic. EKG showed atrial fibrillation with rapid ventricular response. She has never had atrial fibrillation, does not see a feedlot manager regularly, had never taken a blood thinner. Objective Data Objective Data Vital Signs: Vital Signs Temp Pulse Resp BP Pulse Ox 96.7 F L 95 16 98/63 96 12/11/20 13:18 12/11/20 13:33 12/11/20 13:18 12/11/20 13:33 12/11/20 13:18 Oxygen Delivery Method Room Air Weight: 127.006 kg Body Mass Index (BMI) 45.1 Intake & Output: Intake and Output for Last 24 Hours 12/09/20 12/10/20 12/11/20 23:59 23:59 23:59 Intake Total 720 / 720 600 / 600 1600 / 1600 Output Total 1500 / 1500 500 / 500 1550 / 1550 Balance -780 / -780 100 / 100 50 / 50 Lab / Micro Data Result Diagrams: 12/09/20 05:48 12/09/20 05:48 Physical Exam Const alert and oriented x3 General Appearance: cooperative HEENT normocephalic Eyes PERRL and EOMs intact bilaterally Neck supple, no JVD and no carotid bruits Resp normal respiratory effort, normal air movement and clear to auscultation bilaterally Cardio regular rate and regular rhythm Cardio Narrative: Irregularly irregular. GI normal to inspection, nondistended, normoactive bowel sounds, non-tender and non-distended Extremity normal capillary refill General Extremity: Negative for edema Skin no rashes or lesions noted General Skin Exam: no breakdown Psych affect normal Appearance: appropriate Assessment & Plan Assessment/Plan (1) Debility: (2) Thoracic spinal stenosis: (3) Pseudogout of right knee: (4) Osteoarthritis of knees, bilateral: (5) Hypertension: (6) Herpes zoster: (7) Hyperlipidemia: (8) Vitamin D deficiency: (9) Osteoarthritis: (10) Neuropathic pain: (11) Muscle spasm: (12) Depression: PLAN: 65 year old female with below past medical history underwent thoracic laminectomy/fusion 11/24/2020, postoperative course complicated by pseudgout right knee, admitted to TCU with debility, here for rehabilitation, strengthening, prior to discharge home with daughter. * Tachycardia - Rx Metoprolol 25mg bid, HR improved to 95. * Hypotensive episode - Blood pressure improved with NS 1 liter IV bolus, stop Losartan 100mg daily, stop Amlodipine 5mg daily, Stop Maxzide 37.5/25mg daily, continue Clonidine 0.1mg bid. * New onset atrial fibrillation with rapid ventricular response - Rx Metoprolol 25mg bid, Rx Xarelto 20mg daliy, stop Lovenox, encourage resident to follow up with Dr. Metcalf as outpatient to consider cardiology referral, possible cardioversion. Capacity Capacity Assessment Tool Can the patient make a choice & communicate that choice?: Yes Can the patient understand benefits, risks and alternatives?: Yes Can the patient make a logical, rational choice?: Yes Is the choice the patient makes consistent w/ their values?: Yes Is there an impending, emergent risk to the patient?: No Does the patient have an Advance Directive?: No Is there a Surrogate Available?: Yes i.e. HCPOA: Yes i.e. close relative (spouse, child, parent, sibling)?: Yes
[2020-12-11] MEDS: Bisacodyl 5 MG Tablet 10 MG PO (17:43)
[2020-12-11] MEDS: Atorvastatin Calcium 10 MG Tablet PO (21:11)
--- NOTE | 2020-12-11 22:55 | NURSING ---
Pt. c/o pain to left hand IV site, requests removal. IV discontinued to left hand, IV cannula intact upon removal, site without redness/heat/edema/drainage, sterile gauze applied to site and secured with tape. Patient tolerated well.
[2020-12-12] MEDS: oxyCODONE 5 MG Tablet 10 MG PO ×4 (00:23→17:27)
[2020-12-12] MEDS: Senna Tablet 2 TABLET PO ×2 (05:35→17:27)
[2020-12-12] MEDS: Polyethylene Glycol 3350 17 GM PACKET PO (05:35)
[2020-12-12] MEDS: Acyclovir 800 MG Tablet PO ×5 (05:38→21:40)
[2020-12-12] MEDS: Sertraline 100 MG Tablet PO (05:38)
[2020-12-12] MEDS: cloNIDine HCl 0.1 MG Tablet PO ×2 (05:38→17:26)
[2020-12-12] MEDS: Methocarbamol 750 MG Tablet PO ×3 (05:38→21:40)
[2020-12-12 05:39] VITALS: BP 145/69; PULSE 84
[2020-12-12] MEDS: Metoprolol Tartrate 25 MG Tablet PO ×2 (05:39→17:26)
[2020-12-12] MEDS: MethylPREDNISolone DosePak 4 MG BOX PO ×4 (08:15→21:40)
[2020-12-12] MEDS: Gabapentin 300 MG Capsule PO ×2 (08:15→21:40)
[2020-12-12] MEDS: Cholecalciferol (VIT D3) 25 MCG TABLET (1,000 UNITS) 50 MCG PO (08:15)
[2020-12-12] MEDS: Losartan Potassium 100 MG Tablet PO (11:36)
[2020-12-12 16:03] VITALS: BP 101/75; PULSE 95; RESP 16; TEMP 36.7; O2SAT 94
--- NOTE | 2020-12-12 16:05 | NURSING ---
Patient given soap suds enema with extra large results. Patient tolerated well and feels better.
[2020-12-12 16:40] VITALS: PULSE 95; RESP 16; O2SAT 98
[2020-12-12 17:26] VITALS: BP 118/68; PULSE 95
[2020-12-12] MEDS: Rivaroxaban 20 MG Tablet PO (17:26)
[2020-12-12] MEDS: Atorvastatin Calcium 10 MG Tablet PO (21:40)
[2020-12-13 06:19] VITALS: BP 139/71; PULSE 76
[2020-12-13] MEDS: Metoprolol Tartrate 25 MG Tablet PO ×2 (06:19→17:24)
[2020-12-13] MEDS: Acyclovir 800 MG Tablet PO ×5 (06:20→20:37)
[2020-12-13] MEDS: Sertraline 100 MG Tablet PO (06:20)
[2020-12-13] MEDS: oxyCODONE 5 MG Tablet 10 MG PO ×4 (06:20→17:23)
[2020-12-13] MEDS: cloNIDine HCl 0.1 MG Tablet PO ×2 (06:20→17:24)
[2020-12-13] MEDS: Methocarbamol 750 MG Tablet PO ×3 (06:20→20:37)
[2020-12-13] MEDS: Losartan Potassium 100 MG Tablet PO (06:23)
[2020-12-13] MEDS: Menthol/Lanolin/Calamine/Znox 113 GM Tube 1 APPLIC TOPICAL (06:27)
[2020-12-13] MEDS: MethylPREDNISolone DosePak 4 MG BOX PO ×3 (08:40→20:36)
[2020-12-13] MEDS: Cholecalciferol (VIT D3) 25 MCG TABLET (1,000 UNITS) 50 MCG PO (08:41)
[2020-12-13] MEDS: Gabapentin 300 MG Capsule PO ×2 (08:43→20:37)
[2020-12-13] MEDS: Senna Tablet 2 TABLET PO ×2 (08:43→17:24)
[2020-12-13] MEDS: Bisacodyl 5 MG Tablet 10 MG PO (13:56)
[2020-12-13 15:59] VITALS: BP 96/55; PULSE 93; RESP 16; TEMP 36.7; O2SAT 96
[2020-12-13 16:01] VITALS: PULSE 93; RESP 16; O2SAT 96
--- NOTE | 2020-12-13 17:03 | NURSING ---
Patient given Bisacodyl 10mg per request. Patient states she still feels like she needs to move her bowels. Will monitor.
[2020-12-13 17:24] VITALS: BP 122/63; PULSE 90
[2020-12-13] MEDS: Rivaroxaban 20 MG Tablet PO (17:24)
[2020-12-13] MEDS: Atorvastatin Calcium 10 MG Tablet PO (20:37)
[2020-12-14] MEDS: oxyCODONE 5 MG Tablet 10 MG PO ×4 (00:20→16:48)
[2020-12-14] MEDS: Polyethylene Glycol 3350 17 GM PACKET PO (06:09)
[2020-12-14 06:10] VITALS: BP 136/65; PULSE 81
[2020-12-14] MEDS: Sertraline 100 MG Tablet PO (06:10)
[2020-12-14] MEDS: Methocarbamol 750 MG Tablet PO ×3 (06:10→21:37)
[2020-12-14] MEDS: Acyclovir 800 MG Tablet PO ×5 (06:10→21:37)
[2020-12-14] MEDS: cloNIDine HCl 0.1 MG Tablet PO ×2 (06:10→16:47)
[2020-12-14] MEDS: Metoprolol Tartrate 25 MG Tablet PO ×2 (06:10→16:46)
[2020-12-14] MEDS: Senna Tablet 2 TABLET PO ×2 (06:10→16:45)
[2020-12-14] MEDS: Losartan Potassium 100 MG Tablet PO (06:19)
--- NOTE | 2020-12-14 06:49 | NURSING ---
Patient very tearful this morning. She hopes that therapy will work and she will be able to go home. Continue to encourage her to follow therapy orders.
[2020-12-14] MEDS: Menthol/Lanolin/Calamine/Znox 113 GM Tube 1 APPLIC TOPICAL (06:53)
[2020-12-14] MEDS: MethylPREDNISolone DosePak 4 MG BOX PO ×2 (08:18→21:37)
[2020-12-14] MEDS: Cholecalciferol (VIT D3) 25 MCG TABLET (1,000 UNITS) 50 MCG PO (08:18)
[2020-12-14] MEDS: Gabapentin 300 MG Capsule PO ×2 (08:19→21:37)
--- NOTE | 2020-12-14 12:24 | NURSING ---
ALL CARE PROVIDED IN ROOM TODAY D/T CONTACT ISOLATION.
--- NOTE | 2020-12-14 14:50 | NURSING ---
No answer at number for sister, Tiffanie.
[2020-12-14 16:00] VITALS: BP 99/71; PULSE 86; RESP 16; TEMP 35.6; O2SAT 97
[2020-12-14 16:44] VITALS: BP 105/58; PULSE 90
[2020-12-14 16:46] VITALS: PULSE 90
[2020-12-14] MEDS: Rivaroxaban 20 MG Tablet PO (16:46)
[2020-12-14] MEDS: Atorvastatin Calcium 10 MG Tablet PO (21:37)
[2020-12-14 23:59] VITALS: RESP 18; O2SAT 95
[2020-12-15] MEDS: oxyCODONE 5 MG Tablet 10 MG PO ×4 (00:09→18:02)
[2020-12-15] MEDS: Sertraline 100 MG Tablet PO (05:53)
[2020-12-15] MEDS: Senna Tablet 2 TABLET PO (05:53)
[2020-12-15] MEDS: Polyethylene Glycol 3350 17 GM PACKET PO (05:53)
[2020-12-15] MEDS: Acyclovir 800 MG Tablet PO ×4 (05:53→18:03)
[2020-12-15] MEDS: Methocarbamol 750 MG Tablet PO ×3 (05:54→21:12)
[2020-12-15 05:56] VITALS: BP 101/56; PULSE 87
[2020-12-15] MEDS: Metoprolol Tartrate 25 MG Tablet PO ×2 (05:56→18:03)
--- NOTE | 2020-12-15 06:09 | NURSING ---
Pt. requests Cozaar and Clonidine be administered closer to breakfast this morning, not administered at this time per pt. request
[2020-12-15] MEDS: Cholecalciferol (VIT D3) 25 MCG TABLET (1,000 UNITS) 50 MCG PO (08:17)
[2020-12-15] MEDS: Gabapentin 300 MG Capsule PO ×2 (08:18→21:12)
[2020-12-15] MEDS: cloNIDine HCl 0.1 MG Tablet PO ×2 (08:21→18:02)
[2020-12-15] MEDS: Losartan Potassium 100 MG Tablet PO (08:21)
[2020-12-15 08:23] VITALS: BP 124/68; PULSE 60
--- NOTE | 2020-12-15 12:25 | PCA ---
Went into get pt up for PT, upon entering room pt was crying stated that she was so upset with her insurance co. I said oh i am so sorry whats going on pt stated that she spoke with them and they informed her that if she doens't make progress by Monday she is not going to be covered to stay on TCU any longer. Pt began sobbing even more an stated i am not going to a alf i assured pt that i am sure she will make progress by than in PT. Pt stated that she was so happy she came here just cannot believe how her insurance is being. Myself an [employer] Ruiztikaden zaomrayered pt into the chair for OT/PT..
--- NOTE | 2020-12-15 12:39 | NURSING ---
Treatment for shingles completed today. Per therapy stating, Yamilet, Infection RN, resident able to come out of precautions. Resident emotional today because of insurance may cut me if I dont make more progress.
[2020-12-15] MEDS: Acetaminophen 500 MG Tablet 1000 MG PO (14:28)
[2020-12-15 14:48] VITALS: BP 103/86; PULSE 79; RESP 18; TEMP 36.4; O2SAT 97
--- NOTE | 2020-12-15 15:03 | CASEMGMT ---
Social Work Updated pt that insurance approved with NRD 12/22 and continued stay is not guaranteed. Advised insurance stated if pt has not made any improvements, to anticipate [facility]OM[facility]. Encouraged pt is able to be out of room and go to the therapy gym, which may assist with further progress. Advised to begin brainstorming alternative DC options if cannot go home. Pt adamant about going home and will not go to SNF. SW will assist with DC plans. Will continue to follow. Kateryna Tejeda, GALLERY HOST INVOICE CHECKER
[2020-12-15 18:03] VITALS: PULSE 88
[2020-12-15] MEDS: Rivaroxaban 20 MG Tablet PO (18:03)
[2020-12-15] MEDS: Menthol/Lanolin/Calamine/Znox 113 GM Tube 1 APPLIC TOPICAL (18:05)
[2020-12-15] MEDS: Atorvastatin Calcium 10 MG Tablet PO (21:12)
[2020-12-16] MEDS: oxyCODONE 5 MG Tablet 10 MG PO ×4 (00:03→17:15)
[2020-12-16] MEDS: MELATONIN 10 MG TABLET PO (00:13)
[2020-12-16 05:39] LABS: Absolute Lymphocyte Count 3.37 X10^3/uL (0.83-4.51); Absolute Neutrophil Count 7.9 X10^3/uL (2.0-7.7); Basophil# 0.11 X10^3/uL; Basophil% 0.9 % (0-1); Eosinophil# 0.39 X10^3/uL; Hematocrit 36.6 % (37-47); Lymphocyte # 3.37 X10^3/ul (0.83-4.51); Lymphocyte % 26.3 % (19-41); Mean Corp Hgb Conc 32.8 g/dL (32-36); Mean Corpuscular Hgb 28.2 pg (27.0-32.0); Mean Corpuscular Volume 85.9 fL (81-99); Mean Platelet Vol. 9.5 fl (6.2-12.0); Monocyte# 1.03 X10^3/uL; NRBC Flagged by Analyzer 0 % (0-5); Neutrophil # 7.86 X10^3/uL (2.7-7.7); Neutrophil % 61.3 % (47-70); Platelet Count 386 K/mm3 (150-450); RBC Distribution Width SD 45.5 fl (35.1-43.9); Red Blood Count 4.26 M/mm3 (4.2-5.4); White Blood Count 12.8 K/mm3 (4.4-11.0)
[2020-12-16] MEDS: Senna Tablet 2 TABLET PO ×2 (06:01→17:15)
[2020-12-16] MEDS: cloNIDine HCl 0.1 MG Tablet PO ×2 (06:02→17:15)
[2020-12-16] MEDS: Methocarbamol 750 MG Tablet PO ×3 (06:02→21:02)
[2020-12-16] MEDS: Sertraline 100 MG Tablet PO (06:02)
[2020-12-16 06:03] VITALS: BP 119/63; PULSE 79
[2020-12-16] MEDS: Metoprolol Tartrate 25 MG Tablet PO ×2 (06:03→17:15)
[2020-12-16] MEDS: Polyethylene Glycol 3350 17 GM PACKET PO (06:04)
[2020-12-16 06:07] LABS: Anion Gap 10 (5-15); BUN 54 mg/dL (7-18); BUN/Creat Ratio 43.2 RATIO (10-20); Calcium,Total 9.2 mg/dL (8.5-10.1); Chloride 99 mmol/L (98-107); Creatinine, Serum 1.25 mg/dL (0.55-1.02); EST Glomerular Filtration Rate 45 mL/min (>60); Est Glom Filt Rate - Afr Amer 55 mL/min (>60); Estimated Creatinine Clearance 40.88 ml/min; Glucose 109 mg/dL (74-106); Potassium 4.3 mmol/L (3.5-5.1); Sodium Level 128 mmol/L (136-145)
[2020-12-16] MEDS: Cholecalciferol (VIT D3) 25 MCG TABLET (1,000 UNITS) 50 MCG PO (08:07)
[2020-12-16] MEDS: Gabapentin 300 MG Capsule PO ×2 (08:07→21:02)
[2020-12-16 08:55] LABS: Osmolality, Serum 295 mOsm/KG (280-301)
--- NOTE | 2020-12-16 09:02 | CASEMGMT ---
Social Work IDT met with patient and niece for care plan meeting. Discussed patient's progress in therapy and nursing. Explained [employer] insurance with NRD 12/22 and continued stay is not guaranteed. Niece expressed concern about pt not being motivated and that is why pt is not progressing. Therapy and this worker corrected and assured niece pt is motivated, participating to the best of her ability, and does as much as she can. Pt tearful about insurance not allowing enough time to progress further. Validated feelings. Discussed DME needed at home, encouraged family to measure doorways at home for w/c accessibility and bed height at home. SW to assist with needed DME and skilled HHC. Explained HHC therapists will assist with transition at home, doing home eval and provide strategies to get around safely at home. Provided resources for ramps as pt has two steps to enter, as well as nonskilled HHC list. Encouraged for family and pt to discuss who to assist at home, how to help pt with cats, etc. Niece stated she is going out of state for the next week or so. SW to continue to assist and follow. Kateryna Tejeda, MAT PUNCHER INSPECTOR AUTOMATIC TYPEWRITER
[2020-12-16 09:47] VITALS: BP 97/58
[2020-12-16] MEDS: Tuberculin,Purif.prot.deriv. 50 TU/ML Vial 0.1 ML ID (11:21)
[2020-12-16 12:04] LABS: Osmolality, Urine 412 mOsm/KG
[2020-12-16 12:08] LABS: Urine Sodium < 5 mmol/L (Not Establ.)
[2020-12-16 14:37] VITALS: BP 109/58; PULSE 63; RESP 16; TEMP 36.4; O2SAT 98
--- NOTE | 2020-12-16 16:32 | CHAPLAIN ---
Type of Pastoral Visit _x__ Initial Visit ___ Follow-up Visit ___ On-call Visit ___ General Patient Visit ___ Spiritual Assessment ___ Family Conference ___ Bereavement ___ Rapid Response ___ Code Blue ___ Other (describe below) Pastoral Care Referral From _x__ Patient ___ Family ___ Nurse ___ Physician ___ Line Producer ___ Electrical And Instrument Mechanic ___ Other (describe below) Sacrament/Intervention _x__ Active listening ___ Anointing ___ Episcopal ___ Bereavement ___ Communion ___ Kathie exploration ___ _x__ Life review _x__ Prayer ___ Reconciliation ___ Sacrament of Sick _x__ Supportive presence ___ Wedding ___ Other (describe below) Pastoral Comments patient was welcoming and pleasant; pt states her concern is with approval of insurance or changes to be made for insurance; pt describes a busy day but expresses some hope about recovery; pt is spiritual but does not have a mu-ism connection other than a personal friend who is a ceramics engineer
[2020-12-16 17:15] VITALS: BP 133/70; PULSE 86
[2020-12-16] MEDS: Rivaroxaban 20 MG Tablet PO (17:15)
[2020-12-16] MEDS: Menthol/Lanolin/Calamine/Znox 113 GM Tube 1 APPLIC TOPICAL (17:15)
[2020-12-16] MEDS: Atorvastatin Calcium 10 MG Tablet PO (21:02)
[2020-12-16 22:00] VITALS: PULSE 49; RESP 18; O2SAT 94
[2020-12-17] MEDS: oxyCODONE 5 MG Tablet 10 MG PO ×4 (00:05→18:06)
[2020-12-17 05:58] VITALS: BP 164/86; PULSE 87
[2020-12-17] MEDS: Metoprolol Tartrate 25 MG Tablet PO ×2 (05:58→18:07)
[2020-12-17] MEDS: cloNIDine HCl 0.1 MG Tablet PO ×2 (05:58→18:08)
[2020-12-17] MEDS: Methocarbamol 750 MG Tablet PO ×3 (05:59→22:31)
[2020-12-17] MEDS: Sertraline 100 MG Tablet PO (05:59)
[2020-12-17] MEDS: Menthol/Lanolin/Calamine/Znox 113 GM Tube 1 APPLIC TOPICAL ×2 (06:02→18:09)
--- NOTE | 2020-12-17 06:38 | NURSING ---
Patient very tearful this morning. She stated she wasn't able to sleep. She is feeling isolated and claustrophobic. She is off of isolation at this time. Suggested that she come out of her room after breakfast to the common area. She is agreeable to suggestion. Discussed the issue with aides and they will bring patient out to common area after breakfast today. Will continue to monitor.
[2020-12-17] MEDS: Cholecalciferol (VIT D3) 25 MCG TABLET (1,000 UNITS) 50 MCG PO (08:33)
[2020-12-17] MEDS: Gabapentin 300 MG Capsule PO ×2 (08:33→22:31)
[2020-12-17] MEDS: Losartan Potassium 100 MG Tablet PO (08:33)
[2020-12-17 08:34] VITALS: BP 100/85; PULSE 75
[2020-12-17] MEDS: amLODIPine 5 MG Tablet PO (08:41)
--- NOTE | 2020-12-17 11:47 | NURSING ---
Patient given COVID 19 booster 12/16. Patient tolerated well. Made copy of card and original given back to patient.
[2020-12-17 13:15] VITALS: PULSE 62; RESP 18; O2SAT 95
[2020-12-17] MEDS: Senna Tablet 2 TABLET PO (18:06)
[2020-12-17 18:07] VITALS: BP 120/66; PULSE 78
[2020-12-17] MEDS: Rivaroxaban 20 MG Tablet PO (18:08)
[2020-12-17 18:41] VITALS: BP 120/66; PULSE 78; RESP 18; TEMP 36.6; O2SAT 98
[2020-12-17] MEDS: Atorvastatin Calcium 10 MG Tablet PO (22:31)
[2020-12-18] MEDS: oxyCODONE 5 MG Tablet 10 MG PO ×4 (00:04→18:06)
[2020-12-18] MEDS: Menthol/Lanolin/Calamine/Znox 113 GM Tube 1 APPLIC TOPICAL ×2 (06:19→14:33)
[2020-12-18] MEDS: cloNIDine HCl 0.1 MG Tablet PO ×2 (06:19→18:04)
[2020-12-18 06:20] VITALS: BP 118/58; PULSE 86
[2020-12-18] MEDS: Metoprolol Tartrate 25 MG Tablet PO ×2 (06:20→18:05)
[2020-12-18] MEDS: Methocarbamol 750 MG Tablet PO ×3 (06:21→21:15)
[2020-12-18] MEDS: amLODIPine 5 MG Tablet PO (06:22)
[2020-12-18] MEDS: Senna Tablet 2 TABLET PO ×2 (06:22→18:05)
[2020-12-18] MEDS: Polyethylene Glycol 3350 17 GM PACKET PO (06:22)
[2020-12-18] MEDS: Sertraline 100 MG Tablet PO (06:23)
[2020-12-18] MEDS: Cholecalciferol (VIT D3) 25 MCG TABLET (1,000 UNITS) 50 MCG PO (08:17)
[2020-12-18] MEDS: Gabapentin 300 MG Capsule PO ×2 (08:17→21:15)
[2020-12-18] MEDS: Losartan Potassium 100 MG Tablet PO (08:17)
[2020-12-18 09:29] LABS: Anion Gap 5 (5-15); BUN 47 mg/dL (7-18); BUN/Creat Ratio 39.5 RATIO (10-20); Calcium,Total 9.4 mg/dL (8.5-10.1); Chloride 103 mmol/L (98-107); Creatinine, Serum 1.19 mg/dL (0.55-1.02); EST Glomerular Filtration Rate 48 mL/min (>60); Est Glom Filt Rate - Afr Amer 58 mL/min (>60); Estimated Creatinine Clearance 42.95 ml/min; Glucose 172 mg/dL (74-106); Potassium 4.1 mmol/L (3.5-5.1); Sodium Level 133 mmol/L (136-145)
--- NOTE | 2020-12-18 10:25 | MDS.RN ---
Information for the mds was obtained from review of the clinical record, interview of resident, staff, and direct observation of resident's care.
[2020-12-18 15:39] VITALS: BP 83/46; PULSE 100; RESP 20; TEMP 35.8; O2SAT 99
[2020-12-18 17:45] VITALS: BP 102/55; PULSE 84
[2020-12-18] MEDS: Rivaroxaban 20 MG Tablet PO (18:04)
[2020-12-18 18:05] VITALS: PULSE 84
[2020-12-18 21:00] VITALS: PULSE 55; RESP 16; O2SAT 96
[2020-12-18] MEDS: Atorvastatin Calcium 10 MG Tablet PO (21:15)
[2020-12-19] MEDS: oxyCODONE 5 MG Tablet 10 MG PO ×4 (00:03→18:21)
[2020-12-19] MEDS: Senna Tablet 2 TABLET PO ×2 (05:34→17:04)
[2020-12-19] MEDS: Polyethylene Glycol 3350 17 GM PACKET PO (05:34)
[2020-12-19] MEDS: Sertraline 100 MG Tablet PO (05:36)
[2020-12-19] MEDS: cloNIDine HCl 0.1 MG Tablet PO ×2 (05:36→17:04)
[2020-12-19 05:37] VITALS: BP 138/91; PULSE 106
[2020-12-19] MEDS: Metoprolol Tartrate 25 MG Tablet PO ×2 (05:37→17:04)
[2020-12-19] MEDS: Methocarbamol 750 MG Tablet PO ×3 (05:38→21:20)
[2020-12-19] MEDS: amLODIPine 5 MG Tablet PO (05:38)
[2020-12-19] MEDS: hydrOXYzine PAM 25 MG Capsule 50 MG PO (06:00)
[2020-12-19] MEDS: Gabapentin 300 MG Capsule PO ×2 (09:23→21:19)
[2020-12-19] MEDS: Losartan Potassium 100 MG Tablet PO (09:24)
[2020-12-19] MEDS: Cholecalciferol (VIT D3) 25 MCG TABLET (1,000 UNITS) 50 MCG PO (09:24)
[2020-12-19 14:55] VITALS: BP 101/34; PULSE 78; RESP 16; TEMP 36.1; O2SAT 90
[2020-12-19 16:03] VITALS: BP 116/50
[2020-12-19 17:04] VITALS: PULSE 78
[2020-12-19] MEDS: Rivaroxaban 20 MG Tablet PO (17:04)
[2020-12-19] MEDS: Bisacodyl 5 MG Tablet 10 MG PO (17:05)
[2020-12-19] MEDS: Menthol/Lanolin/Calamine/Znox 113 GM Tube 1 APPLIC TOPICAL (17:07)
[2020-12-19] MEDS: Atorvastatin Calcium 10 MG Tablet PO (21:20)
[2020-12-20] MEDS: oxyCODONE 5 MG Tablet 10 MG PO ×5 (00:11→23:57)
[2020-12-20] MEDS: Acetaminophen 500 MG Tablet 1000 MG PO (03:38)
[2020-12-20 05:06] VITALS: BP 116/50; PULSE 81; RESP 18; TEMP 36.6; O2SAT 97
[2020-12-20 05:09] VITALS: BP 116/50; PULSE 81
[2020-12-20] MEDS: Metoprolol Tartrate 25 MG Tablet PO ×2 (05:09→17:31)
[2020-12-20] MEDS: amLODIPine 5 MG Tablet PO (05:10)
[2020-12-20] MEDS: Senna Tablet 2 TABLET PO ×2 (05:10→17:31)
[2020-12-20] MEDS: Sertraline 100 MG Tablet PO (05:10)
[2020-12-20] MEDS: Menthol/Lanolin/Calamine/Znox 113 GM Tube 1 APPLIC TOPICAL ×2 (05:11→17:40)
[2020-12-20] MEDS: Polyethylene Glycol 3350 17 GM PACKET PO (05:11)
[2020-12-20] MEDS: cloNIDine HCl 0.1 MG Tablet PO ×2 (05:11→17:32)
[2020-12-20] MEDS: Methocarbamol 750 MG Tablet PO ×3 (05:12→21:55)
[2020-12-20] MEDS: Losartan Potassium 100 MG Tablet PO (09:13)
[2020-12-20] MEDS: Gabapentin 300 MG Capsule PO ×2 (09:13→21:55)
[2020-12-20] MEDS: Cholecalciferol (VIT D3) 25 MCG TABLET (1,000 UNITS) 50 MCG PO (09:13)
[2020-12-20] MEDS: Bisacodyl 5 MG Tablet 10 MG PO (11:08)
--- NOTE | 2020-12-20 12:41 | NURSING ---
Patient requested soap suds enema, bisacodyl tablets and prune juice for constipation. Patient tolerated procedure well and had extra large results from enema. Patient only wanted Oxy 5mg instead of scheduled 10mg due to inability to move bowels at this time. Will continue to monitor.
[2020-12-20 15:48] VITALS: BP 113/56; PULSE 78; RESP 18; TEMP 36.8; O2SAT 98
[2020-12-20 17:31] VITALS: BP 113/56; PULSE 78
[2020-12-20] MEDS: Rivaroxaban 20 MG Tablet PO (17:32)
[2020-12-20 18:46] VITALS: PULSE 78; RESP 18; O2SAT 98
[2020-12-20] MEDS: Atorvastatin Calcium 10 MG Tablet PO (21:55)
[2020-12-21 05:29] VITALS: BP 170/87; PULSE 93; RESP 18; TEMP 36.6; O2SAT 94
[2020-12-21] MEDS: Menthol/Lanolin/Calamine/Znox 113 GM Tube 1 APPLIC TOPICAL ×2 (05:31→16:48)
[2020-12-21 05:32] VITALS: BP 170/87; PULSE 93
[2020-12-21] MEDS: cloNIDine HCl 0.1 MG Tablet PO ×2 (05:32→16:42)
[2020-12-21] MEDS: Senna Tablet 2 TABLET PO ×2 (05:32→16:42)
[2020-12-21] MEDS: amLODIPine 5 MG Tablet PO (05:32)
[2020-12-21] MEDS: Sertraline 100 MG Tablet PO (05:32)
[2020-12-21] MEDS: Metoprolol Tartrate 25 MG Tablet PO ×2 (05:32→16:43)
[2020-12-21] MEDS: Polyethylene Glycol 3350 17 GM PACKET PO (05:32)
[2020-12-21] MEDS: Methocarbamol 750 MG Tablet PO ×3 (05:34→21:01)
[2020-12-21] MEDS: hydrOXYzine PAM 25 MG Capsule 50 MG PO ×2 (05:37→21:37)
[2020-12-21] MEDS: oxyCODONE 5 MG Tablet 10 MG PO ×4 (05:37→23:30)
[2020-12-21] MEDS: Gabapentin 300 MG Capsule PO ×2 (09:12→21:01)
[2020-12-21] MEDS: Losartan Potassium 100 MG Tablet PO (09:12)
[2020-12-21] MEDS: Cholecalciferol (VIT D3) 25 MCG TABLET (1,000 UNITS) 50 MCG PO (09:12)
[2020-12-21 09:13] VITALS: BP 125/53; PULSE 77
--- NOTE | 2020-12-21 15:51 | MDS.RN ---
Infection Preventionist Note: Resident requesting to meet with Act. Coordinator. Met with resident and she is requesting more of a daily routine for herself and opportunities to be out of room. Have provided an area in the lounge with arts and craft supplies and have encouraged resident to be out of room throughout the day for socialization. Resident enjoys helping others. Will continue to offer independenct activities as well as encouraging her to all group activities.
[2020-12-21 16:00] VITALS: BP 160/102; PULSE 83; RESP 16; TEMP 35.8; O2SAT 99
[2020-12-21 16:43] VITALS: PULSE 83
[2020-12-21] MEDS: Rivaroxaban 20 MG Tablet PO (16:43)
[2020-12-21] MEDS: MELATONIN 10 MG TABLET PO (21:01)
[2020-12-21] MEDS: Atorvastatin Calcium 10 MG Tablet PO (21:01)
[2020-12-22] MEDS: hydrOXYzine PAM 25 MG Capsule 50 MG PO ×2 (03:31→08:57)
[2020-12-22 05:56] VITALS: BP 152/91; PULSE 90; RESP 18; TEMP 36.6; O2SAT 94
[2020-12-22] MEDS: Sertraline 100 MG Tablet PO (05:57)
[2020-12-22] MEDS: oxyCODONE 5 MG Tablet 10 MG PO ×3 (05:57→17:45)
[2020-12-22 05:58] VITALS: BP 152/91; PULSE 90
[2020-12-22] MEDS: Senna Tablet 2 TABLET PO ×2 (05:58→17:45)
[2020-12-22] MEDS: amLODIPine 5 MG Tablet PO (05:58)
[2020-12-22] MEDS: Methocarbamol 750 MG Tablet PO ×3 (05:58→22:23)
[2020-12-22] MEDS: Metoprolol Tartrate 25 MG Tablet PO ×2 (05:58→17:45)
[2020-12-22] MEDS: cloNIDine HCl 0.1 MG Tablet PO ×2 (05:58→17:45)
[2020-12-22] MEDS: Polyethylene Glycol 3350 17 GM PACKET PO (05:59)
[2020-12-22] MEDS: Menthol/Lanolin/Calamine/Znox 113 GM Tube 1 APPLIC TOPICAL ×2 (06:00→16:06)
[2020-12-22] MEDS: Gabapentin 300 MG Capsule PO ×2 (08:58→22:23)
[2020-12-22] MEDS: Losartan Potassium 100 MG Tablet PO (08:58)
[2020-12-22] MEDS: Cholecalciferol (VIT D3) 25 MCG TABLET (1,000 UNITS) 50 MCG PO (08:58)
[2020-12-22] MEDS: Rivaroxaban 20 MG Tablet PO (16:05)
--- NOTE | 2020-12-22 17:35 | CASEMGMT ---
Social Work Met with pt and niece. Updated that insurance approved NRD 12/29, but will likely issue NOMNC. Recommended having ramp and grab bars in place. Discussed lift chair. SW can order slideboard, drop arm BSC and w/c at [facility] along with C. Answered questions. Pt and niece appreciative. Will continue to follow. Kateryna Tejeda, CREDIT FRONT OFFICE DEVELOPER DIRECTOR ASSET
[2020-12-22 17:39] VITALS: BP 117/56; PULSE 76; RESP 16; TEMP 36.7; O2SAT 97
[2020-12-22 17:45] VITALS: BP 117/56; PULSE 76
[2020-12-22] MEDS: Atorvastatin Calcium 10 MG Tablet PO (22:22)
[2020-12-22 22:27] VITALS: PULSE 76; RESP 18; O2SAT 94
[2020-12-23] MEDS: oxyCODONE 5 MG Tablet 10 MG PO ×4 (00:31→17:50)
[2020-12-23] MEDS: MELATONIN 10 MG TABLET PO ×2 (00:53→22:19)
[2020-12-23] MEDS: hydrOXYzine PAM 25 MG Capsule 50 MG PO ×3 (00:54→22:20)
[2020-12-23 04:54] VITALS: BP 111/53; PULSE 82
[2020-12-23] MEDS: Bisacodyl 5 MG Tablet 10 MG PO (04:54)
[2020-12-23] MEDS: Menthol/Lanolin/Calamine/Znox 113 GM Tube 1 APPLIC TOPICAL ×2 (04:56→15:27)
[2020-12-23] MEDS: Polyethylene Glycol 3350 17 GM PACKET PO (04:56)
[2020-12-23] MEDS: cloNIDine HCl 0.1 MG Tablet PO ×2 (04:57→17:45)
[2020-12-23] MEDS: Senna Tablet 2 TABLET PO ×2 (04:57→17:45)
[2020-12-23 04:58] VITALS: PULSE 82
[2020-12-23] MEDS: Methocarbamol 750 MG Tablet PO ×3 (04:58→20:28)
[2020-12-23] MEDS: Metoprolol Tartrate 25 MG Tablet PO ×2 (04:58→17:44)
[2020-12-23] MEDS: Sertraline 100 MG Tablet PO (04:58)
[2020-12-23] MEDS: amLODIPine 5 MG Tablet PO (04:58)
[2020-12-23 06:04] LABS: Absolute Lymphocyte Count 1.45 X10^3/uL (0.83-4.51); Absolute Neutrophil Count 5.7 X10^3/uL (2.0-7.7); Basophil# 0.05 X10^3/uL; Basophil% 0.6 % (0-1); Eosinophil# 0.32 X10^3/uL; Eosinophils% 3.9 % (0-5); Hematocrit 30.7 % (37-47); Hemoglobin 10.1 g/dL (12.0-15.0); Lymphocyte # 1.45 X10^3/ul (0.83-4.51); Lymphocyte % 17.7 % (19-41); Mean Corp Hgb Conc 32.9 g/dL (32-36); Mean Corpuscular Hgb 28.1 pg (27.0-32.0); Mean Corpuscular Volume 85.5 fL (81-99); Mean Platelet Vol. 9.8 fl (6.2-12.0); Monocyte# 0.71 X10^3/uL; Monocyte% 8.7 % (0-10); NRBC Flagged by Analyzer 0 % (0-5); Neutrophil # 5.65 X10^3/uL (2.7-7.7); Neutrophil % 68.9 % (47-70); Platelet Count 203 K/mm3 (150-450); RBC Distribution Width CV 15.6 % (11.6-14.6); RBC Distribution Width SD 48.5 fl (35.1-43.9); Red Blood Count 3.59 M/mm3 (4.2-5.4); White Blood Count 8.2 K/mm3 (4.4-11.0)
[2020-12-23 06:31] LABS: Anion Gap 6 (5-15); BUN 23 mg/dL (7-18); BUN/Creat Ratio 27.6 RATIO (10-20); Calcium,Total 9.6 mg/dL (8.5-10.1); Chloride 103 mmol/L (98-107); Creatinine, Serum 0.83 mg/dL (0.55-1.02); EST Glomerular Filtration Rate 73 mL/min (>60); Est Glom Filt Rate - Afr Amer 88 mL/min (>60); Estimated Creatinine Clearance 61.57 ml/min; Glucose 107 mg/dL (74-106); Potassium 4.1 mmol/L (3.5-5.1); Sodium Level 135 mmol/L (136-145)
[2020-12-23] MEDS: Gabapentin 300 MG Capsule PO ×2 (08:57→20:28)
[2020-12-23] MEDS: Losartan Potassium 100 MG Tablet PO (08:58)
[2020-12-23] MEDS: Cholecalciferol (VIT D3) 25 MCG TABLET (1,000 UNITS) 50 MCG PO (08:58)
[2020-12-23] MEDS: Acetaminophen 500 MG Tablet 1000 MG PO (15:21)
[2020-12-23 16:15] VITALS: BP 120/65; PULSE 73; RESP 20; TEMP 36.6
[2020-12-23 17:44] VITALS: PULSE 73
[2020-12-23] MEDS: Rivaroxaban 20 MG Tablet PO (17:44)
[2020-12-23] MEDS: Atorvastatin Calcium 10 MG Tablet PO (20:28)
[2020-12-24] MEDS: oxyCODONE 5 MG Tablet 10 MG PO ×4 (00:04→17:43)
[2020-12-24] MEDS: Polyethylene Glycol 3350 17 GM PACKET PO (05:32)
[2020-12-24] MEDS: Senna Tablet 2 TABLET PO ×2 (05:32→17:40)
[2020-12-24 05:33] VITALS: BP 144/60; PULSE 86
[2020-12-24] MEDS: Methocarbamol 750 MG Tablet PO ×3 (05:33→20:59)
[2020-12-24] MEDS: Sertraline 100 MG Tablet PO (05:33)
[2020-12-24] MEDS: amLODIPine 5 MG Tablet PO (05:33)
[2020-12-24] MEDS: Metoprolol Tartrate 25 MG Tablet PO ×2 (05:33→17:40)
[2020-12-24] MEDS: cloNIDine HCl 0.1 MG Tablet PO ×2 (05:33→17:40)
[2020-12-24] MEDS: Menthol/Lanolin/Calamine/Znox 113 GM Tube 1 APPLIC TOPICAL ×2 (05:40→17:41)
--- NOTE | 2020-12-24 05:50 | NURSING ---
Pt asking this morning to have right upper handrail put down because she feels claustrophobic, explained to her the risks since she sleeps on her side, pt aware and still requesting to have it down, done as pt requested.
[2020-12-24] MEDS: Cholecalciferol (VIT D3) 25 MCG TABLET (1,000 UNITS) 50 MCG PO (08:56)
[2020-12-24] MEDS: Losartan Potassium 100 MG Tablet PO (08:56)
[2020-12-24] MEDS: Gabapentin 300 MG Capsule PO ×2 (08:56→20:59)
[2020-12-24 09:04] VITALS: BP 134/58; PULSE 74
[2020-12-24 15:35] VITALS: BP 146/51; PULSE 77; RESP 18; TEMP 36.6; O2SAT 96
[2020-12-24 17:40] VITALS: BP 146/51; PULSE 77
[2020-12-24] MEDS: Rivaroxaban 20 MG Tablet PO (17:40)
[2020-12-24] MEDS: Bisacodyl 5 MG Tablet 10 MG PO (17:43)
[2020-12-24] MEDS: Atorvastatin Calcium 10 MG Tablet PO (20:59)
[2020-12-24] MEDS: MELATONIN 10 MG TABLET PO (22:32)
[2020-12-24] MEDS: hydrOXYzine PAM 25 MG Capsule 50 MG PO (22:32)
[2020-12-25] MEDS: oxyCODONE 5 MG Tablet 10 MG PO ×4 (00:02→17:46)
--- NOTE | 2020-12-25 00:18 | NURSING ---
Big toe on left foot noted to be bleeding, pt states she trimmed her toenails with her own clipper because it was jagged. Cleaned with alcohol pad and bandaid applied.
--- NOTE | 2020-12-25 01:14 | NURSING ---
Pt repositioned multiple times, will only stay in one position for 10-15 minutes at a time before requesting to be moved again. Pt encouraged to keep feet up d/t edema. Pt up to chair with nurys at her request, legs elevated. Cpap given to pt, states she will put it on when she is ready to sleep.
[2020-12-25 05:13] VITALS: BP 122/68; PULSE 93
[2020-12-25] MEDS: Metoprolol Tartrate 25 MG Tablet PO ×2 (05:13→17:45)
[2020-12-25] MEDS: cloNIDine HCl 0.1 MG Tablet PO ×2 (05:14→17:46)
[2020-12-25] MEDS: Methocarbamol 750 MG Tablet PO ×3 (05:14→22:00)
[2020-12-25] MEDS: Sertraline 100 MG Tablet PO (05:14)
[2020-12-25] MEDS: amLODIPine 5 MG Tablet PO (05:14)
[2020-12-25] MEDS: Menthol/Lanolin/Calamine/Znox 113 GM Tube 1 APPLIC TOPICAL ×2 (05:21→16:27)
[2020-12-25 05:50] LABS: Hematocrit 31.5 % (37-47); Hemoglobin 9.9 g/dL (12.0-15.0)
[2020-12-25] MEDS: Gabapentin 300 MG Capsule PO ×2 (08:07→21:59)
[2020-12-25] MEDS: Cholecalciferol (VIT D3) 25 MCG TABLET (1,000 UNITS) 50 MCG PO (08:07)
[2020-12-25] MEDS: Losartan Potassium 100 MG Tablet PO (08:07)
[2020-12-25 15:13] VITALS: BP 135/50; PULSE 77; RESP 16; TEMP 36.6; O2SAT 92
[2020-12-25] MEDS: Rivaroxaban 20 MG Tablet PO (16:28)
[2020-12-25 17:45] VITALS: BP 135/50; PULSE 77
[2020-12-25] MEDS: Senna Tablet 2 TABLET PO (17:46)
[2020-12-25 18:29] VITALS: PULSE 77; RESP 18; O2SAT 92
--- NOTE | 2020-12-25 18:51 | NURSING ---
Patient would like to reduce scheduled Oxy 10mg from 4 times a day to 3 times per day. Patient is trying to cut down on narcotic pain medication before going home.
[2020-12-25] MEDS: Atorvastatin Calcium 10 MG Tablet PO (22:00)
[2020-12-26] MEDS: oxyCODONE 5 MG Tablet 10 MG PO ×4 (00:25→23:04)
[2020-12-26] MEDS: MELATONIN 10 MG TABLET PO (00:25)
[2020-12-26] MEDS: hydrOXYzine PAM 25 MG Capsule 50 MG PO ×2 (00:33→23:11)
[2020-12-26] MEDS: Sertraline 100 MG Tablet PO (05:52)
[2020-12-26 05:53] VITALS: BP 131/67; PULSE 79
[2020-12-26] MEDS: amLODIPine 5 MG Tablet PO (05:53)
[2020-12-26] MEDS: Metoprolol Tartrate 25 MG Tablet PO ×2 (05:53→17:42)
[2020-12-26] MEDS: cloNIDine HCl 0.1 MG Tablet PO ×2 (05:53→17:42)
[2020-12-26] MEDS: Methocarbamol 750 MG Tablet PO ×3 (05:53→23:07)
[2020-12-26] MEDS: Menthol/Lanolin/Calamine/Znox 113 GM Tube 1 APPLIC TOPICAL ×2 (05:54→14:01)
[2020-12-26] MEDS: Losartan Potassium 100 MG Tablet PO (08:15)
[2020-12-26] MEDS: Cholecalciferol (VIT D3) 25 MCG TABLET (1,000 UNITS) 50 MCG PO (08:15)
[2020-12-26] MEDS: Gabapentin 300 MG Capsule PO ×2 (08:15→23:06)
[2020-12-26] MEDS: Acetaminophen 500 MG Tablet 1000 MG PO (08:18)
[2020-12-26 16:18] VITALS: BP 156/86; PULSE 72; RESP 17; TEMP 36.6; O2SAT 95
[2020-12-26 17:42] VITALS: PULSE 72
[2020-12-26] MEDS: Senna Tablet 2 TABLET PO (17:42)
[2020-12-26] MEDS: Rivaroxaban 20 MG Tablet PO (17:42)
[2020-12-26] MEDS: Atorvastatin Calcium 10 MG Tablet PO (23:07)
[2020-12-27 05:10] VITALS: BP 158/84; PULSE 76; RESP 16; TEMP 36.7; O2SAT 97
[2020-12-27] MEDS: Menthol/Lanolin/Calamine/Znox 113 GM Tube 1 APPLIC TOPICAL ×2 (05:13→17:30)
[2020-12-27] MEDS: cloNIDine HCl 0.1 MG Tablet PO ×2 (05:16→17:28)
[2020-12-27] MEDS: amLODIPine 5 MG Tablet PO (05:17)
[2020-12-27] MEDS: Senna Tablet 2 TABLET PO ×2 (05:17→17:28)
[2020-12-27] MEDS: Sertraline 100 MG Tablet PO (05:17)
[2020-12-27 05:18] VITALS: BP 158/84; PULSE 76
[2020-12-27] MEDS: Metoprolol Tartrate 25 MG Tablet PO ×2 (05:18→17:28)
[2020-12-27] MEDS: Methocarbamol 750 MG Tablet PO ×3 (05:19→23:18)
[2020-12-27] MEDS: Polyethylene Glycol 3350 17 GM PACKET PO (05:19)
[2020-12-27] MEDS: Nystatin Powder 15gm Bottle 1 APPLIC TOPICAL ×2 (05:26→17:29)
[2020-12-27] MEDS: oxyCODONE 5 MG Tablet 10 MG PO ×3 (05:28→23:18)
[2020-12-27] MEDS: Losartan Potassium 100 MG Tablet PO (08:21)
[2020-12-27] MEDS: Cholecalciferol (VIT D3) 25 MCG TABLET (1,000 UNITS) 50 MCG PO (08:21)
[2020-12-27] MEDS: Gabapentin 300 MG Capsule PO ×2 (08:21→23:18)
[2020-12-27] MEDS: Acetaminophen 500 MG Tablet 1000 MG PO (08:23)
[2020-12-27 15:06] VITALS: BP 161/81; PULSE 71; RESP 14; TEMP 35.6; O2SAT 94
[2020-12-27 17:28] VITALS: PULSE 75
[2020-12-27] MEDS: Rivaroxaban 20 MG Tablet PO (17:28)
--- NOTE | 2020-12-27 18:15 | PCA ---
Family brought in [place] for patient for dinner. this aide asked pt if she wanted something else from the kitchen to eat, she refused offer. later on called the kitchen and left a voicemail stating that we always miss her an that we never give her her food at supper.
--- NOTE | 2020-12-27 20:46 | NURSING ---
Left vm for Kateryna VILLEGAS, that pt is requesting to speak w/ her tomorrow re: status of dc plans and ordering DME.
[2020-12-27] MEDS: Atorvastatin Calcium 10 MG Tablet PO (23:18)
[2020-12-27] MEDS: hydrOXYzine PAM 25 MG Capsule 50 MG PO (23:24)
--- NOTE | 2020-12-27 23:25 | NURSING ---
Pt somewhat drowsy when hs meds administered. Requests Vistaril d/t concerns with increased anxiety when attempting to reposition self in bed. Instructed pt soon after meds administered she is to lay down to prevent falling as this nurse informs pt she should not be sitting on the edge of the bed. Pt verbalizes understanding. Will continue to monitor.
[2020-12-28] MEDS: Acetaminophen 500 MG Tablet 1000 MG PO (03:20)
--- NOTE | 2020-12-28 03:30 | NURSING ---
Pt reports rt knee and low back pain. Thinks movement increased pain. Questions if Voltaren gel is ordered as needed or routine. Informed pt Voltaren gel is ordered every 6 hours routine and unsure if frequency can be increased d/t the effects and absorption of the medication. Medicated w/ Tylenol [address] order. Will continue to monitor.
[2020-12-28] MEDS: oxyCODONE 5 MG Tablet 10 MG PO ×3 (06:41→21:40)
[2020-12-28] MEDS: amLODIPine 5 MG Tablet PO (06:44)
[2020-12-28] MEDS: Methocarbamol 750 MG Tablet PO ×3 (06:44→21:40)
[2020-12-28] MEDS: Menthol/Lanolin/Calamine/Znox 113 GM Tube 1 APPLIC TOPICAL ×2 (06:44→17:05)
[2020-12-28] MEDS: cloNIDine HCl 0.1 MG Tablet PO ×2 (06:44→17:04)
[2020-12-28 06:45] VITALS: BP 144/71; PULSE 74
[2020-12-28] MEDS: Metoprolol Tartrate 25 MG Tablet PO ×2 (06:45→17:05)
[2020-12-28] MEDS: Nystatin Powder 15gm Bottle 1 APPLIC TOPICAL ×2 (06:45→17:06)
[2020-12-28] MEDS: Sertraline 100 MG Tablet PO (06:46)
[2020-12-28] MEDS: Losartan Potassium 100 MG Tablet PO (08:06)
[2020-12-28] MEDS: Gabapentin 300 MG Capsule PO ×2 (08:06→21:41)
[2020-12-28] MEDS: Cholecalciferol (VIT D3) 25 MCG TABLET (1,000 UNITS) 50 MCG PO (08:06)
--- NOTE | 2020-12-28 11:38 | CASEMGMT ---
Social Work Followed up with pt, per request. Reviewed needed DME - slideboard, drop arm BSC, drop arm w/c. Pt will get skilled HHC PT/OT/SN. Pt will need transport as she cannot get in and out of car at this time. Answered pt's questions. NRD 12/28. Will continue to follow. Kateryna Tejeda, VP CLINICAL RESEARCH FINISHED YARN EXAMINER
[2020-12-28 14:29] VITALS: BP 120/50; PULSE 66; RESP 16; TEMP 36.6; O2SAT 92
[2020-12-28] MEDS: Rivaroxaban 20 MG Tablet PO (17:04)
[2020-12-28 17:05] VITALS: BP 120/50; PULSE 66
[2020-12-28] MEDS: Senna Tablet 2 TABLET PO (17:05)
--- NOTE | 2020-12-28 19:50 | NURSING ---
Encouraged pt to lie on her side from time to time, pt has shearing to bilat buttocks from sitting up on side of bed and shifting from side to side constantly, pt states she does not like our beds and it is too difficult to lie for too long. Also encouraged pt to keep legs elevated as much as possible d\t edema. Pt says she tries to but is uncomfortable with her back, suggested to pt several ways to take pressure off her back, she is unwilling to try at this time, she did let me wrap both legs with danita wraps for a few hours this evening to try to decrease edema. Will continue to monitor.
[2020-12-28] MEDS: Atorvastatin Calcium 10 MG Tablet PO (21:40)
[2020-12-28] MEDS: MELATONIN 10 MG TABLET PO (21:45)
[2020-12-28] MEDS: hydrOXYzine PAM 25 MG Capsule 50 MG PO (21:45)
[2020-12-29] MEDS: oxyCODONE 5 MG Tablet 10 MG PO ×3 (04:59→21:16)
[2020-12-29] MEDS: Polyethylene Glycol 3350 17 GM PACKET PO (05:00)
[2020-12-29] MEDS: Methocarbamol 750 MG Tablet PO ×3 (05:00→21:16)
[2020-12-29] MEDS: Nystatin Powder 15gm Bottle 1 APPLIC TOPICAL ×2 (05:01→17:46)
[2020-12-29] MEDS: Senna Tablet 2 TABLET PO ×2 (05:01→17:46)
[2020-12-29] MEDS: Sertraline 100 MG Tablet PO (05:01)
[2020-12-29] MEDS: amLODIPine 5 MG Tablet PO (05:01)
[2020-12-29] MEDS: cloNIDine HCl 0.1 MG Tablet PO ×2 (05:01→17:45)
[2020-12-29] MEDS: Menthol/Lanolin/Calamine/Znox 113 GM Tube 1 APPLIC TOPICAL ×2 (05:02→17:46)
[2020-12-29 05:05] VITALS: BP 144/55; PULSE 73
[2020-12-29] MEDS: Metoprolol Tartrate 25 MG Tablet PO ×2 (05:05→17:45)
[2020-12-29] MEDS: Gabapentin 300 MG Capsule PO ×2 (08:30→21:17)
[2020-12-29] MEDS: Losartan Potassium 100 MG Tablet PO (08:30)
[2020-12-29] MEDS: Cholecalciferol (VIT D3) 25 MCG TABLET (1,000 UNITS) 50 MCG PO (08:30)
[2020-12-29 08:31] VITALS: BP 143/54; PULSE 76
[2020-12-29 14:53] VITALS: BP 151/67; PULSE 73; RESP 18; TEMP 36.7; O2SAT 96
--- NOTE | 2020-12-29 14:57 | CASEMGMT ---
Social Work Spoke with pt. Notified her insurance approved NRD 01/01 and continued stay is not guaranteed. Explained if insurance provides outcome on 01/01 and issues LCD, DC would be 01/04. Otherwise, the outcome would be provided on 01/04 with EDC 01/07. Pt expressed understanding and excitement for approval. Pt requested to this worker. Pt requested to call brother to go over recommendations to adjust house as he is handy with construction. Agree to call to answer questions but unsure how much recommendations could be given. Reiterated earliest DC would be 01/04 and that is a short period of time to make any major house changes. Pt expressed understanding. Spoke with pt's brother, Ramon [phone], to answer questions. Explained NRD. Answered questions about DME that SW ordered and C services. Explained IDT asked niece at care plan meeting to measure doorways and bed height, etc. Brother asked about home evaluation to make recommendations on any modifications. Explained HHC therapists will do that and TCU therapists provided education and attempted to simulate home set up based on pt's explanations. Explained pt's home would need to be w/c accessible since she cannot ambulate. Brother stated he lives an hour and a half away, he uses an electric scooter himself and would not be the one to do any of the construction, but could oversee it. Confirmed walk in shower and ramp is done. Brother inquired about getting pt an electric w/c or scooter. Encouraged to get one to assist pt with mobility - IDT already recommended and pt stated she could pay out of pocket if insurance could not pay for one. Explained our staff does not complete that insurance process for electric w/c's - that is done as an outpatient. Brother stated he has a good contact for an electric scooter and could get one for her next day. Encouraged to proceed with that. Brother appreciative of time and information. JAVIER VannW
[2020-12-29 17:45] VITALS: BP 151/67; PULSE 73
[2020-12-29] MEDS: Rivaroxaban 20 MG Tablet PO (17:46)
[2020-12-29] MEDS: Bisacodyl 5 MG Tablet 10 MG PO (17:54)
[2020-12-29] MEDS: MELATONIN 10 MG TABLET PO (21:16)
[2020-12-29] MEDS: Atorvastatin Calcium 10 MG Tablet PO (21:17)
[2020-12-29] MEDS: hydrOXYzine PAM 25 MG Capsule 50 MG PO (22:23)
[2020-12-30] MEDS: Acetaminophen 500 MG Tablet 1000 MG PO (03:53)
[2020-12-30 04:10] VITALS: BP 149/62; PULSE 73
[2020-12-30] MEDS: Polyethylene Glycol 3350 17 GM PACKET PO (04:10)
[2020-12-30] MEDS: Senna Tablet 2 TABLET PO ×2 (04:10→17:33)
[2020-12-30] MEDS: Metoprolol Tartrate 25 MG Tablet PO ×2 (04:10→17:33)
[2020-12-30] MEDS: amLODIPine 5 MG Tablet PO (04:11)
[2020-12-30] MEDS: cloNIDine HCl 0.1 MG Tablet PO ×2 (04:11→17:32)
[2020-12-30] MEDS: Sertraline 100 MG Tablet PO (04:11)
[2020-12-30] MEDS: Methocarbamol 750 MG Tablet PO ×3 (04:11→21:28)
[2020-12-30] MEDS: Menthol/Lanolin/Calamine/Znox 113 GM Tube 1 APPLIC TOPICAL ×2 (04:13→17:32)
[2020-12-30] MEDS: Nystatin Powder 15gm Bottle 1 APPLIC TOPICAL ×2 (04:14→20:26)
--- NOTE | 2020-12-30 04:30 | NURSING ---
Noted this am during med pass that patient's right ankle seemed more red, warm to touch and increased edema. Area marked with skin marker, encouraged pt to elevate as much as possible. Note left for Dr. Karimi to assess when he comes in. Will continue to monitor.
[2020-12-30] MEDS: oxyCODONE 5 MG Tablet 10 MG PO ×3 (05:27→21:25)
[2020-12-30 06:06] LABS: Absolute Lymphocyte Count 1.31 X10^3/uL (0.83-4.51); Absolute Neutrophil Count 5.6 X10^3/uL (2.0-7.7); Basophil# 0.06 X10^3/uL; Basophil% 0.8 % (0-1); Eosinophil# 0.27 X10^3/uL; Eosinophils% 3.4 % (0-5); Lymphocyte # 1.31 X10^3/ul (0.83-4.51); Lymphocyte % 16.5 % (19-41); Mean Corp Hgb Conc 31.3 g/dL (32-36); Mean Corpuscular Hgb 27.2 pg (27.0-32.0); Mean Corpuscular Volume 87.2 fL (81-99); Mean Platelet Vol. 9.4 fl (6.2-12.0); Monocyte# 0.66 X10^3/uL; Monocyte% 8.3 % (0-10); NRBC Flagged by Analyzer 0 % (0-5); Neutrophil # 5.63 X10^3/uL (2.7-7.7); Neutrophil % 70.7 % (47-70); Platelet Count 337 K/mm3 (150-450); RBC Distribution Width CV 14.7 % (11.6-14.6); RBC Distribution Width SD 46.5 fl (35.1-43.9); Red Blood Count 3.67 M/mm3 (4.2-5.4)
[2020-12-30 06:40] LABS: Anion Gap 3 (5-15); BUN 14 mg/dL (7-18); BUN/Creat Ratio 19.6 RATIO (10-20); Calcium,Total 9.5 mg/dL (8.5-10.1); Chloride 100 mmol/L (98-107); Creatinine, Serum 0.72 mg/dL (0.55-1.02); EST Glomerular Filtration Rate 87 mL/min (>60); Est Glom Filt Rate - Afr Amer 105 mL/min (>60); Estimated Creatinine Clearance 51.11 ml/min; Glucose 105 mg/dL (74-106); Sodium Level 134 mmol/L (136-145)
[2020-12-30] MEDS: Losartan Potassium 100 MG Tablet PO (08:30)
[2020-12-30] MEDS: Cholecalciferol (VIT D3) 25 MCG TABLET (1,000 UNITS) 50 MCG PO (08:30)
[2020-12-30] MEDS: Gabapentin 300 MG Capsule PO ×2 (08:30→21:28)
[2020-12-30 08:31] VITALS: BP 122/69; PULSE 69
[2020-12-30] MEDS: Doxycycline 100 MG CAPSULE PO ×2 (10:57→21:26)
[2020-12-30] MEDS: Cephalexin 500 MG Capsule PO ×2 (10:57→20:26)
[2020-12-30 16:24] VITALS: BP 128/60; PULSE 72; RESP 17; TEMP 36.4; O2SAT 95
[2020-12-30] MEDS: Rivaroxaban 20 MG Tablet PO (17:32)
[2020-12-30 17:33] VITALS: PULSE 72
[2020-12-30] MEDS: Atorvastatin Calcium 10 MG Tablet PO (21:29)
[2020-12-30 22:00] VITALS: PULSE 68; RESP 18; O2SAT 68
--- NOTE | 2020-12-31 01:42 | NURSING ---
Per BULL RIVETER, patient activated call light to notify nurse of bleeding toe. Pt. immediately assessed, observed sitting on side of bed, television on, no acute distress. Pt. reports self-removing left foot toenail,second digit, toenail bed beefy red, no toenail observed, scant red drainage observed to site. When patient asked why she self-removed toenail, patient states it didn't feel even so I just tore it off. Pt. educated on importance of maintaining skin integrity and encouraged not to self-remove toenails, and to notify staff of needs. Pt. A&Ox3, verbalized understanding. Toe cleansed with NS, pat dry, bandaid applied per pt. preference. Denies pain. No distress observed or reported. Denies further requests. Call light in reach.
[2020-12-31] MEDS: oxyCODONE 5 MG Tablet 10 MG PO ×3 (05:35→21:35)
[2020-12-31 05:40] VITALS: BP 125/62; PULSE 78
[2020-12-31] MEDS: Senna Tablet 2 TABLET PO (05:40)
[2020-12-31] MEDS: Cephalexin 500 MG Capsule PO ×2 (05:40→16:45)
[2020-12-31] MEDS: Menthol/Lanolin/Calamine/Znox 113 GM Tube 1 APPLIC TOPICAL ×2 (05:40→16:46)
[2020-12-31] MEDS: amLODIPine 5 MG Tablet PO (05:40)
[2020-12-31] MEDS: Sertraline 100 MG Tablet PO (05:40)
[2020-12-31] MEDS: cloNIDine HCl 0.1 MG Tablet PO ×2 (05:40→16:46)
[2020-12-31] MEDS: Metoprolol Tartrate 25 MG Tablet PO ×2 (05:40→16:45)
[2020-12-31] MEDS: Methocarbamol 750 MG Tablet PO ×3 (05:41→21:36)
[2020-12-31] MEDS: Polyethylene Glycol 3350 17 GM PACKET PO (05:41)
[2020-12-31] MEDS: Nystatin Powder 15gm Bottle 1 APPLIC TOPICAL ×2 (05:42→16:47)
[2020-12-31] MEDS: hydrOXYzine PAM 25 MG Capsule 50 MG PO ×2 (05:50→21:41)
[2020-12-31] MEDS: Gabapentin 300 MG Capsule PO ×2 (08:53→21:37)
[2020-12-31] MEDS: Cholecalciferol (VIT D3) 25 MCG TABLET (1,000 UNITS) 50 MCG PO (08:53)
[2020-12-31] MEDS: Potassium Chloride Oral Tablet 20 MEQ PO (08:53)
[2020-12-31] MEDS: Furosemide 40 MG Tablet PO (08:53)
[2020-12-31] MEDS: Losartan Potassium 100 MG Tablet PO (08:53)
[2020-12-31] MEDS: Doxycycline 100 MG CAPSULE PO ×2 (08:57→21:36)
[2020-12-31] MEDS: BACITRACIN 15 GM Tube 1 APPLIC TOPICAL ×2 (11:06→16:43)
[2020-12-31 15:33] VITALS: BP 130/66; PULSE 79; RESP 14; TEMP 36.8; O2SAT 94
[2020-12-31 16:45] VITALS: PULSE 79
[2020-12-31] MEDS: Rivaroxaban 20 MG Tablet PO (16:46)
--- NOTE | 2020-12-31 17:05 | CASEMGMT ---
Addendum entered by Kateryna Tejeda 01/01/21 09:00: late entry: also discussed with pt that orders are signed for HHC and DME, but cannot refer until a DC date is set. Provided HHC list with quality and resource data. Inquired about preference. Pt stated she has not used one prior, but knows [facility] is typically whom [facility] allows to use. SW agreed. Pt agreeable to refer to [facility] at DC. Will order PT/OT/SN/[place]/SW. Original Note: Social Work Pt requested to see this worker. Met with this worker and inquired about electric w/c process. This worker spoke with Darlene, her director life insurance, to answer questions to help pt pursue the insurance approval for that. Explained PCP would assist with that process and provided contact information. Explained that conversation to pt and let her know this worker spoke with brother. She was aware and appreciative. Reiterated insurance update and EDC. Pt expressed understanding. Will continue to follow. JAVIER VannW
[2020-12-31] MEDS: Atorvastatin Calcium 10 MG Tablet PO (21:36)
[2020-12-31] MEDS: MELATONIN 10 MG TABLET PO (21:41)
[2021-01-01 04:31] LABS: Bedside Glucose 93 mg/dL (70-110)
[2021-01-01] MEDS: BACITRACIN 15 GM Tube 1 APPLIC TOPICAL ×2 (06:46→21:17)
[2021-01-01] MEDS: Senna Tablet 2 TABLET PO ×2 (06:47→17:40)
[2021-01-01] MEDS: Menthol/Lanolin/Calamine/Znox 113 GM Tube 1 APPLIC TOPICAL ×2 (06:47→14:24)
[2021-01-01] MEDS: Polyethylene Glycol 3350 17 GM PACKET PO (06:47)
[2021-01-01] MEDS: amLODIPine 5 MG Tablet PO (06:48)
[2021-01-01 06:49] VITALS: BP 152/61; PULSE 90
[2021-01-01] MEDS: Methocarbamol 750 MG Tablet PO ×3 (06:49→21:26)
[2021-01-01] MEDS: cloNIDine HCl 0.1 MG Tablet PO ×2 (06:49→17:41)
[2021-01-01] MEDS: Metoprolol Tartrate 25 MG Tablet PO ×2 (06:49→17:42)
[2021-01-01] MEDS: Sertraline 100 MG Tablet PO (06:49)
[2021-01-01] MEDS: Cephalexin 500 MG Capsule PO ×2 (06:49→17:40)
[2021-01-01] MEDS: Nystatin Powder 15gm Bottle 1 APPLIC TOPICAL ×2 (06:50→21:18)
[2021-01-01] MEDS: oxyCODONE 5 MG Tablet 10 MG PO ×3 (06:53→21:16)
--- NOTE | 2021-01-01 07:53 | NURSING ---
Was called into pts room to find her on the floor, approximately 3 - 4 ft from the bed. She stated that she started to slide on the mattress and grabbed her overthe bed table which rolled away from her. Denied hitting head, fell on bottom and right side. No c/o pain. Denied injury. Physician notified as well as yosi soto per patients request.
[2021-01-01] MEDS: Cholecalciferol (VIT D3) 25 MCG TABLET (1,000 UNITS) 50 MCG PO (08:46)
[2021-01-01] MEDS: Gabapentin 300 MG Capsule PO ×2 (08:46→21:26)
[2021-01-01] MEDS: Losartan Potassium 100 MG Tablet PO (08:46)
[2021-01-01] MEDS: Potassium Chloride Oral Tablet 20 MEQ PO (08:46)
--- NOTE | 2021-01-01 08:48 | CASEMGMT ---
Social Work Received information that pt has lowered self to floor last night, was far away from bed, bedside table pushed aside; pt was in no distress, did not call for help or use call-light. Aide was doing rounds and found pt on floor, per report. Pt also has been incontinent which is new for pt during stay. Discussed with IDT and agreeable this is behavioral r/t to insurance update today. IDT continuing to recommend pt not DC home alone, to DC to SNF or with 24/7 care. Concerned about pt's safety, being unable to ambulate. Pt is adamant about returning home and still does not want to discuss SNF placement or alternative plan. Will await outcome from insurance update today. Kateryna Tejeda, RESIDENT CARE ASSOCIATE IDENTIFICATION PRINTING MACHINE SETTER
[2021-01-01] MEDS: Doxycycline 100 MG CAPSULE PO ×2 (10:26→21:25)
[2021-01-01 14:02] VITALS: BP 117/52; PULSE 74; RESP 16; TEMP 36.8; O2SAT 92
--- NOTE | 2021-01-01 14:07 | PCM.DC.SUM ---
Providers Date of Admission: 12/08/20 Primary Care Physician: Dr. Jay Salazar MD Reason For Visit: SPINAL FUSION Diagnosis Discharge Diagnosis (1) Debility: Status: Acute Code(s): R53.81 - Other malaise (2) Thoracic spinal stenosis: Status: Acute Code(s): M48.04 - Spinal stenosis, thoracic region (3) Pseudogout of right knee: Status: Acute Code(s): M11.261 - Other chondrocalcinosis, right knee (4) Osteoarthritis of knees, bilateral: Status: Acute Code(s): M17.0 - Bilateral primary osteoarthritis of knee (5) Hypertension: Status: Chronic Code(s): I10 - Essential (primary) hypertension (6) Herpes zoster: Status: Acute Code(s): B02.9 - Zoster without complications (7) Hyperlipidemia: Status: Acute Code(s): E78.5 - Hyperlipidemia, unspecified (8) Vitamin D deficiency: Status: Acute Code(s): E55.9 - Vitamin D deficiency, unspecified (9) Osteoarthritis: Status: Acute Code(s): M19.90 - Unspecified osteoarthritis, unspecified site (10) Neuropathic pain: Status: Acute Code(s): M79.2 - Neuralgia and neuritis, unspecified (11) Muscle spasm: Status: Acute Code(s): M62.838 - Other muscle spasm (12) Depression: Status: Acute Code(s): F32.A - Depression, unspecified Medications at Discharge Home Medications amlodipine 5 mg PO DAILY 12/08/20 atorvastatin 10 mg PO DAILY@2200 12/08/20 cholecalciferol (vitamin D3) [Vitamin D3] 2,000 unit PO DAILY 12/08/20 clonidine HCl 0.1 mg PO BID 12/08/20 diclofenac sodium [Voltaren Arthritis Pain] 1 ea TOPICAL Q6H 12/08/20 sertraline 100 mg PO DAILY 12/08/20 acetaminophen 1,000 mg PO Q6H PRN PRN #0 tab 01/01/21 betamethasone valerate 1 applic TOPICAL BID #0 g 01/01/21 gabapentin 300 mg PO BID 30 Days #60 cap 01/01/21 methocarbamol 750 mg PO Q8H 30 Days #90 tab 01/01/21 metoprolol tartrate 25 mg PO BID 30 Days #60 tab 01/01/21 oxycodone 10 mg PO 0600,1400,2200 7 Days #42 tab 01/01/21 potassium chloride [Klor-Con M20] 20 meq PO DAILYCM 30 Days #30 tab 01/01/21 rivaroxaban [Xarelto] 20 mg PO DINNER@1700 30 Days #30 tab 01/01/21 sennosides [Donna-rakan] 17.2 mg PO BID 30 Days #120 tab 01/01/21 Hospital Course Operations - (Thoracic laminectomy/fusion.) Procedures None Summary of Care Provided Minutes Spent on Discharge: 35 Hospital Course: 65 year old female with below past medical history underwent thoracic laminectomy/fusion 11/24/2020, postoperative course complicated by pseudgout right knee, admitted to TCU with debility, here for rehabilitation, strengthening, prior to discharge home with niece. Discharge home with family 01/04/2021, [facility] PT/OT/SN/[place], durable medical equipment. Physical Exam Const alert and oriented x3 General Appearance: cooperative HEENT normocephalic Eyes PERRL and EOMs intact bilaterally Neck supple, no JVD and no carotid bruits Resp normal respiratory effort, normal air movement and clear to auscultation bilaterally Cardio regular rate and regular rhythm GI normal to inspection, nondistended, normoactive bowel sounds, non-tender and non-distended Extremity normal capillary refill General Extremity: Negative for edema Skin no rashes or lesions noted General Skin Exam: no breakdown Psych affect normal Appearance: appropriate Weight / BMI Weight Weight: 129.954 kg Body Mass Index (BMI) 45.1 ABG / Lab / Microbiology Data Result Diagrams: 12/30/20 05:21 12/30/20 05:21 Laboratory: Laboratory Results - last 24 hr 01/01/21 04:27: POC Glucose 93 Microbiology: Microbiology 12/21/20 15:36 Nasal Secretion SARS-CoV-2 Antigen (Rapid) - Final 12/15/20 12:35 Nasal Secretion SARS-CoV-2 Antigen (Rapid) - Final D/C Instructions Discharge Diet: No restrictions Discharge Activity: Return to Normal Activity, May Shower and Use Walker Weight Bearing Status: Weight bearing as tolerated Call your doctor if you observe: Fever of 101 or Higher, Inability to urinate, Inability to have a bowel movement, Shortness of breath, Dizziness, Fainting spells, Swelling in the ankles, Chest pain and Uncontrolled pain Additional Instructions: Discharge home with family 01/04/2021, [facility] PT/OT/SN/[place], durable medical equipment. Please Follow Up With: Eliel Pace MD When: As scheduled. Meaningful Use Info Meaningful Use Diagnoses (Choose all that apply): None applicable Discharge Plan Admission Admit Date/Time: 12/08/20 15:30 Primary Reason for Your Visit: Debility. Attending Provider: Darrel Karimi Chi Primary Care Provider: Jay Salazar Instructions Additional Instructions / Restrictions: Discharge home with family 01/04/2021, [facility] PT/OT/SN/[place], durable medical equipment. Discharge Orders/Prescriptions Prescriptions: New acetaminophen 500 mg Tablet 1,000 mg PO Q6H PRN PRN (Reason: Pain Score 1-10) Qty: 0 RF: 0 sennosides [Donna-rakan] 8.6 mg Tablet 17.2 mg PO BID 30 Days Qty: 120 RF: 0 oxycodone 5 mg Tablet 10 mg PO 0600,1400,2200 7 Days Qty: 42 RF: 0 potassium chloride [Klor-Con M20] 20 mEq Tablet,Er Particles/Crystals 20 meq PO DAILYCM 30 Days Qty: 30 RF: 0 betamethasone valerate 0.1 % Cream 1 applic topical BID Qty: 0 RF: 0 metoprolol tartrate 25 mg Tablet 25 mg PO BID 30 Days Qty: 60 RF: 0 Xarelto 20 mg Tablet 20 mg PO DINNER@1700 30 Days Qty: 30 RF: 0 Continued diclofenac sodium [Voltaren Arthritis Pain] 1 % Gel 1 ea TOPICAL Q6H RF: 0 clonidine HCl 0.1 MG tablet 0.1 mg PO BID RF: 0 atorvastatin 10 MG tablet 10 mg PO DAILY@2200 RF: 0 sertraline 100 MG tablet 100 mg PO DAILY RF: 0 amlodipine 5 MG tablet 5 mg PO DAILY RF: 0 cholecalciferol (vitamin D3) [Vitamin D3] 1,000 UNIT tablet 2,000 unit PO DAILY RF: 0 methocarbamol 750 mg Tablet 750 mg PO Q8H 30 Days Qty: 90 RF: 0 Changed gabapentin 300 MG capsule 300 mg PO BID 30 Days Qty: 60 RF: 0 Discontinued sennosides [senna] 8.6 mg Tablet 17.2 mg PO BID PRN (Reason: Constipation) RF: 0 valacyclovir 1 gram Tablet 1,000 mg PO TID RF: 0 triamterene-hydrochlorothiazid 37.5-25 mg Capsule 1 cap PO DAILY RF: 0 docusate sodium [Colace] 100 mg Capsule 100 mg PO BID RF: 0 prednisone 20 MG tablet 10 mg PO BID RF: 0 acetaminophen 500 MG tablet 500 mg PO Q12H PRN (Reason: Pain) RF: 0 multivitamin,je-ngfx-qnvvnaal 1 TABLET tablet 1 tab PO DAILYCM RF: 0 oxycodone-acetaminophen 5-325 mg Tablet 1 - 2 tab PO Q4H PRN (Reason: Pain) RF: 0 oxycodone-acetaminophen [Percocet] 5-325 mg Tablet 2 tab PO Q6H RF: 0 losartan-hydrochlorothiazide 50-12.5 mg Tablet 1 tab PO DAILY RF: 0 nitrofurantoin monohyd/m-cryst [Macrobid] 100 mg Capsule 100 mg PO BID RF: 0 heparin, porcine (PF) 5,000 unit/0.5 mL Syringe 5,000 unit SUBCUT Q8H RF: 0 naloxone 2 mg/actuation [place],Non-Aerosol 2 mg INTRANASAL PRN PRN (Reason: Overdose) RF: 0 Referrals / Follow Up: Jay Salazar MD [Primary Care Provider] - Disposition Disposition (needs filled in before D/C Order can be placed): Home Health Service
--- NOTE | 2021-01-01 14:43 | CASEMGMT ---
Addendum entered by Kateryna Tejeda 01/01/21 15:39: Pt requesting to DC 01/03. Updated [facility] - SOC 01/04. Updated [facility] and [employer]. Original Note: Social Work Spoke with pt that insurance issued DC 01/04. Pt agreeable. Pt remains agreeable to [facility]. Referral made for PT/OT/SN/[place]/SW. Referral made to [employer] for slideboard, drop arm BSC, drop arm w/c. Scheduled cot transport through [facility] for 10 am. Plan: DC home alone 01/04, [facility] PT/OT/SN/[place], DME Kateryna Tejeda, [employer] BOOKKEEPER INSURANCE RISK ANALYST
--- NOTE | 2021-01-01 15:45 | CASEMGMT ---
Social Work BIMS and PHQ-9 completed for MDS assessment. Kateryna Tejeda, PLASTER HELPER WASTE CHOPPER
[2021-01-01] MEDS: Rivaroxaban 20 MG Tablet PO (17:41)
[2021-01-01 17:42] VITALS: PULSE 74
[2021-01-01] MEDS: Atorvastatin Calcium 10 MG Tablet PO (21:25)
[2021-01-01 22:00] VITALS: PULSE 67; RESP 12; O2SAT 96
[2021-01-02] MEDS: MELATONIN 10 MG TABLET PO (00:54)
[2021-01-02] MEDS: hydrOXYzine PAM 25 MG Capsule 50 MG PO ×2 (00:56→22:15)
[2021-01-02] MEDS: BACITRACIN 15 GM Tube 1 APPLIC TOPICAL ×2 (06:17→17:24)
[2021-01-02] MEDS: Sertraline 100 MG Tablet PO (06:18)
[2021-01-02] MEDS: Menthol/Lanolin/Calamine/Znox 113 GM Tube 1 APPLIC TOPICAL ×2 (06:18→17:24)
[2021-01-02] MEDS: Cephalexin 500 MG Capsule PO ×2 (06:18→17:26)
[2021-01-02 06:19] VITALS: BP 151/65; PULSE 80
[2021-01-02] MEDS: amLODIPine 5 MG Tablet PO (06:19)
[2021-01-02] MEDS: Methocarbamol 750 MG Tablet PO ×3 (06:19→22:14)
[2021-01-02] MEDS: Senna Tablet 2 TABLET PO ×2 (06:19→17:26)
[2021-01-02] MEDS: Metoprolol Tartrate 25 MG Tablet PO ×2 (06:19→17:27)
[2021-01-02] MEDS: cloNIDine HCl 0.1 MG Tablet PO ×2 (06:19→17:25)
[2021-01-02] MEDS: oxyCODONE 5 MG Tablet 10 MG PO ×3 (06:20→22:14)
[2021-01-02] MEDS: Nystatin Powder 15gm Bottle 1 APPLIC TOPICAL ×2 (06:21→17:28)
[2021-01-02] MEDS: Polyethylene Glycol 3350 17 GM PACKET PO (06:21)
[2021-01-02] MEDS: Losartan Potassium 100 MG Tablet PO (08:02)
[2021-01-02] MEDS: Potassium Chloride Oral Tablet 20 MEQ PO (08:02)
[2021-01-02] MEDS: Gabapentin 300 MG Capsule PO ×2 (08:02→22:15)
[2021-01-02] MEDS: Cholecalciferol (VIT D3) 25 MCG TABLET (1,000 UNITS) 50 MCG PO (08:05)
[2021-01-02] MEDS: Doxycycline 100 MG CAPSULE PO ×2 (09:09→22:15)
[2021-01-02] MEDS: Furosemide 40 MG Tablet PO (11:32)
[2021-01-02 12:54] VITALS: PULSE 81; RESP 18; O2SAT 94
[2021-01-02 14:32] VITALS: BP 121/55; PULSE 81; RESP 18; TEMP 36.9; O2SAT 94
--- NOTE | 2021-01-02 14:52 | NURSING ---
Patient took Lasix 40mg tablet at 1130.
[2021-01-02] MEDS: Rivaroxaban 20 MG Tablet PO (17:26)
[2021-01-02 17:27] VITALS: BP 121/55; PULSE 81
[2021-01-02] MEDS: Atorvastatin Calcium 10 MG Tablet PO (22:14)
[2021-01-03 06:12] VITALS: BP 119/45; PULSE 80; RESP 16; TEMP 36.6; O2SAT 92
[2021-01-03] MEDS: oxyCODONE 5 MG Tablet 10 MG PO (06:15)
[2021-01-03] MEDS: Polyethylene Glycol 3350 17 GM PACKET PO (06:16)
[2021-01-03] MEDS: Senna Tablet 2 TABLET PO (06:16)
[2021-01-03] MEDS: cloNIDine HCl 0.1 MG Tablet PO (06:17)
[2021-01-03] MEDS: amLODIPine 5 MG Tablet PO (06:17)
[2021-01-03] MEDS: Methocarbamol 750 MG Tablet PO (06:17)
[2021-01-03] MEDS: Sertraline 100 MG Tablet PO (06:17)
[2021-01-03] MEDS: Furosemide 40 MG Tablet PO (06:17)
[2021-01-03] MEDS: Cephalexin 500 MG Capsule PO (06:17)
[2021-01-03] MEDS: BACITRACIN 15 GM Tube 1 APPLIC TOPICAL (06:19)
[2021-01-03] MEDS: Potassium Chloride Oral Tablet 20 MEQ PO (09:16)
[2021-01-03] MEDS: Gabapentin 300 MG Capsule PO (09:16)
[2021-01-03] MEDS: Doxycycline 100 MG CAPSULE PO (09:17)
[2021-01-03] MEDS: Cholecalciferol (VIT D3) 25 MCG TABLET (1,000 UNITS) 50 MCG PO (09:17)
[2021-01-03] MEDS: Losartan Potassium 100 MG Tablet PO (09:17)
[2021-01-03 09:19] VITALS: BP 149/63; PULSE 108; RESP 16; TEMP 36.5; O2SAT 91
== END 2021-01-03 10:15 | disposition home health service (06) | DRG 561 ==
PROVIDERS: Admitting Provider Family Medicine Geriatric Medicine; PCP Family Medicine; Visit Provider Family Medicine Geriatric Medicine
DX: Z47.89 Encounter for other orthopedic aftercare (principal); M48.04 Spinal stenosis, thoracic region; Z23 Encounter for immunization; M17.0 Bilateral primary osteoarthritis of knee; I10 Essential (primary) hypertension; E78.5 Hyperlipidemia, unspecified; E55.9 Vitamin D deficiency, unspecified; F41.9 Anxiety disorder, unspecified; F32.A Depression, unspecified; I48.91 Unspecified atrial fibrillation; M11.261 Other chondrocalcinosis, right knee; B02.9 Zoster without complications; Z79.899 Other long term (current) drug therapy; Z79.52 Long term (current) use of systemic steroids; Z79.01 Long term (current) use of anticoagulants
CPT/HCPCS: 0064A; 36415; 80048; 82962; 83930; 83935; 84300; 85014; 85018; 85025; 87426; 91301; 93005; 97110; 97162; 97166; 97530; 97535; 97802; J7030; A4216

== ENCOUNTER 2021-01-03 13:06 | Emergency (ER) | payer OTHER, SELFPAY ==
[2021-01-03 13:11] VITALS: BP 110/59; PULSE 100; RESP 18; TEMP 37.2; O2SAT 97; BMI 46.4
[2021-01-03 13:19] VITALS: BP 108/59; PULSE 102; RESP 16; TEMP 37.1; O2SAT 98
--- NOTE | 2021-01-03 13:42 | EX.ED.DYSGE1 ---
HPI History of Present Illness Chief Complaint: Back Informant: patient Onset/Context/Timing Onset: Today Context: Gradual Onset Timing: Continuous Quality: Aching Location: Lower thoracic area, right hip, right thigh, and right knee Worsened by: Nothing Relieved by: Nothing Narrative Narrative: Patient presents with increasing debility. Patient was discharged from transitional care unit today. Patient states she went home and was unable to transfer to the bedside commode or to her wheelchair. Patient states she is unable to take care of herself at home. Patient states that she had recent back surgery and went to transitional care unit after that. Patient states that during her stay she developed pseudogout in her right knee. Patient complains of pain in her lower thoracic area below her surgical site. Patient also complains of pain in her right hip, thigh, and knee. Patient denies any new trauma or injury. Patient denies any fevers or chills. [facility] Medical History Cellulitis Debility Depression Herpes zoster Hyperlipidemia Hypertension Muscle spasm Neuropathic pain Osteoarthritis Osteoarthritis of knees, bilateral Pseudogout of right knee Thoracic spinal stenosis Vitamin D deficiency Home Medications amlodipine 5 mg PO DAILY 12/08/20 [History Last Taken Unknown] atorvastatin 10 mg PO DAILY@2200 12/08/20 [History Last Taken Unknown] cholecalciferol (vitamin D3) [Vitamin D3] 2,000 unit PO DAILY 12/08/20 [History Last Taken Unknown] clonidine HCl 0.1 mg PO BID 12/08/20 [History Last Taken Unknown] diclofenac sodium [Voltaren Arthritis Pain] 1 ea TOPICAL Q6H 12/08/20 [History Last Taken Unknown] sertraline 100 mg PO DAILY 12/08/20 [History Last Taken Unknown] acetaminophen 1,000 mg PO Q6H PRN PRN #0 tab 01/01/21 [Rx Last Taken Unknown] betamethasone valerate 1 applic TOPICAL BID #0 g 01/01/21 [Rx Last Taken Unknown] gabapentin 300 mg PO BID 30 Days #60 cap 01/01/21 [Rx Last Taken Unknown] methocarbamol 750 mg PO Q8H 30 Days #90 tab 01/01/21 [Rx Last Taken Unknown] metoprolol tartrate 25 mg PO BID 30 Days #60 tab 01/01/21 [Rx Last Taken Unknown] oxycodone 10 mg PO 0600,1400,2200 7 Days #42 tab 01/01/21 [Rx Last Taken Unknown] potassium chloride [Klor-Con M20] 20 meq PO DAILYCM 30 Days #30 tab 01/01/21 [Rx Last Taken Unknown] rivaroxaban [Xarelto] 20 mg PO DINNER@1700 30 Days #30 tab 01/01/21 [Rx Last Taken Unknown] sennosides [Donna-rakan] 17.2 mg PO BID 30 Days #120 tab 01/01/21 [Rx Last Taken Unknown] Allergy/AdvReac Type Severity Reaction Status Date / Time acetaminophen [From Vicodin] Allergy Anaphylaxis Verified 01/03/21 13:10 hydrocodone [From Vicodin] Allergy Anaphylaxis Verified 01/03/21 13:10 lorazepam [From Ativan] Allergy Hives Verified 05/25/18 09:41 neomycin Allergy Hives Verified 05/25/18 09:41 Surgical History History of adenoidectomy History of back surgery Hx of tonsillectomy Social History household members: family Smoking Status: Never smoker alcohol intake: never substance use type: does not use ROS ROS ED Constitutional Constitutional ED: Denies chills or fever(s) Eyes Eyes: Denies blurry vision or change in vision ENT ENT ED: Denies rhinorrhea or sore throat Cardiovascular Cardiovascular: Denies chest pain or palpitations Respiratory/Chest Respiratory/Chest: Denies cough or dyspnea Gastrointestinal Gastrointestinal: Denies nausea or vomiting Genitourinary Genitourinary ED: Denies dysuria or hematuria Musculoskeletal Musculoskeletal: Reports back pain and neck pain Integumentary Reports rash; Denies abscess Neurologic Neurologic: Denies headache(s) or weakness Allergic/Immunologic Allergic/Immunologic ED: Denies mouth swelling or urticaria EXAM Physical Exam Const Vital Signs: 01/03/21 13:11 01/03/21 13:19 01/03/21 14:19 Temperature 98.9 F 98.7 F 98.7 F Temperature Source Temporal Temporal Temporal Pulse Rate 100 102 H 100 Respiratory Rate 18 16 16 Blood Pressure 110/59 L 108/59 L 135/67 H Blood Pressure Mean 76 75 89 Pulse Ox 97 98 96 Oxygen Delivery Method Room Air Room Air Room Air 01/03/21 15:31 Temperature Temperature Source Pulse Rate 82 Respiratory Rate 18 Blood Pressure 148/95 H Blood Pressure Mean 112 Pulse Ox 96 Oxygen Delivery Method Room Air Positive well nourished, well developed and obese General Appearance ED: well developed Nutritional Appearance: obese HEENT Reports moist mucous membranes Neck supple and no JVD Resp normal respiratory effort and clear to auscultation bilaterally Cardio regular rate, regular rhythm and no murmurs GI normal to inspection, nondistended, normoactive bowel sounds and non-tender Palpation: soft Extremity normal to inspection General Extremety ED: Negative for edema or tenderness General Extremity: Negative for edema Neuro oriented x3, CN's II-XII intact bilaterally and no sensory deficits noted Sensorium / Orientation: alert Motor Exam: strength 5/5 throughout Psych mental status grossly normal Skin no rashes or lesions noted MDM MDM MDM Narrative Medical decision making narrative: Patient was given IV fluids here. CBC showed a mild anemia with a hemoglobin of 11.0 hematocrit 33.8. Comprehensive metabolic profile was within normal limits. Urinalysis does not show any evidence of urinary tract infection. structural worker from TCU was down and discussed options with the patient. Patient does not want to go to a halfway. Patient has home health aide coming tomorrow. Patient has home health equipment to help her at home coming tomorrow. Because of this, the patient does not want to stay in the hospital and get placed in a halfway. Patient will go home. Patient was instructed to follow-up with her primary care physician in 3 to 5 days. Patient understood and was agreeable with the plan. All questions were answered. Lab Data Attestation: I reviewed the patient's lab results. Labs: Laboratory Results - last 24 hr 01/03/21 01/03/21 01/03/21 14:00 14:00 14:15 WBC 8.4 RBC 4.01 L Hgb 11.0 L Hct 33.8 L MCV 84.3 MCH 27.4 MCHC 32.5 RDW Std Deviation 44.8 H RDW Coeff of Laila 14.6 Plt Count 379 MPV 9.0 Immature Gran % (Auto) 0.400 Neut % (Auto) 75.0 H Lymph % (Auto) 12.4 L Bradley % (Auto) 8.7 Eos % (Auto) 2.9 Baso % (Auto) 0.6 Absolute Neuts (auto) 6.3 Absolute Lymphs (auto) 1.04 Nucleated RBC % 0 Sodium 136 Potassium 4.1 Chloride 102 Carbon Dioxide 30.0 Anion Gap 4 L BUN 17 Creatinine 0.80 Estim Creat Clear Calc 63.88 Est GFR (MDRD) Af Amer 91 Est GFR (MDRD) Non-Af 76 BUN/Creatinine Ratio 21.1 H Glucose 113 H Calcium 9.6 Total Bilirubin 0.40 AST 29 ALT 34 Alkaline Phosphatase 102 Total Protein 7.2 Albumin 3.2 Globulin 4.0 Albumin/Globulin Ratio 0.8 L Urine Color Yellow Urine Clarity Clear Urine pH 6.0 Ur Specific [place] 1.015 Urine Protein Negative Urine Glucose (UA) Normal Urine Ketones Negative Urine Occult Blood Negative Urine Nitrite Negative Urine Bilirubin Negative Urine Urobilinogen Normal Ur Leukocyte Esterase Negative Urine RBC 0 SEEN Urine WBC 0 SEEN Ur Squamous Epith Cells 0 SEEN Urine Bacteria 0 SEEN Urine Mucus 0 SEEN Discharge Plan Triage Chief Complaint: Back ED Provider: Erik Bird Dx/Rx/DC Orders Clinical Impression: Debility Instructions: ED Weakness (Uncertain Cause) Prescriptions: No Action diclofenac sodium [Voltaren Arthritis Pain] 1 % Gel 1 ea TOPICAL Q6H RF: 0 clonidine HCl 0.1 MG tablet 0.1 mg PO BID RF: 0 atorvastatin 10 MG tablet 10 mg PO DAILY@2200 RF: 0 sertraline 100 MG tablet 100 mg PO DAILY RF: 0 amlodipine 5 MG tablet 5 mg PO DAILY RF: 0 cholecalciferol (vitamin D3) [Vitamin D3] 1,000 UNIT tablet 2,000 unit PO DAILY RF: 0 acetaminophen 500 mg Tablet 1,000 mg PO Q6H PRN PRN (Reason: Pain Score 1-10) Qty: 0 RF: 0 sennosides [Donna-rakan] 8.6 mg Tablet 17.2 mg PO BID 30 Days Qty: 120 RF: 0 oxycodone 5 mg Tablet 10 mg PO 0600,1400,2200 7 Days Qty: 42 RF: 0 potassium chloride [Klor-Con M20] 20 mEq Tablet,Er Particles/Crystals 20 meq PO DAILYCM 30 Days Qty: 30 RF: 0 betamethasone valerate 0.1 % Cream 1 applic topical BID Qty: 0 RF: 0 metoprolol tartrate 25 mg Tablet 25 mg PO BID 30 Days Qty: 60 RF: 0 Xarelto 20 mg Tablet 20 mg PO DINNER@1700 30 Days Qty: 30 RF: 0 methocarbamol 750 mg Tablet 750 mg PO Q8H 30 Days Qty: 90 RF: 0 gabapentin 300 MG capsule 300 mg PO BID 30 Days Qty: 60 RF: 0 Referrals: Gisela Metcalf [Other] - 3-5 Days Disposition Disposition: Home, Self Care
[2021-01-03 14:07] LABS: Absolute Lymphocyte Count 1.04 X10^3/uL (0.83-4.51); Absolute Neutrophil Count 6.3 X10^3/uL (2.0-7.7); Basophil# 0.05 X10^3/uL; Basophil% 0.6 % (0-1); Eosinophil# 0.24 X10^3/uL; Eosinophils% 2.9 % (0-5); Hematocrit 33.8 % (37-47); Lymphocyte # 1.04 X10^3/ul (0.83-4.51); Lymphocyte % 12.4 % (19-41); Mean Corp Hgb Conc 32.5 g/dL (32-36); Mean Corpuscular Hgb 27.4 pg (27.0-32.0); Mean Corpuscular Volume 84.3 fL (81-99); Monocyte# 0.73 X10^3/uL; Monocyte% 8.7 % (0-10); NRBC Flagged by Analyzer 0 % (0-5); Neutrophil # 6.31 X10^3/uL (2.7-7.7); Platelet Count 379 K/mm3 (150-450); RBC Distribution Width CV 14.6 % (11.6-14.6); RBC Distribution Width SD 44.8 fl (35.1-43.9); Red Blood Count 4.01 M/mm3 (4.2-5.4); White Blood Count 8.4 K/mm3 (4.4-11.0)
[2021-01-03 14:19] VITALS: BP 135/67; PULSE 100; RESP 16; TEMP 37.1; O2SAT 96
[2021-01-03] MEDS: 0.9% Normal Saline 1,000 ML 1000 ML IV (14:20)
[2021-01-03 14:24] LABS: ALB/GLOB Ratio 0.8 RATIO (0.9-2.4); AST(SGOT) 29 U/L (15-37); Alanine Aminotransfer ALT/SGPT 34 U/L (13-56); Albumin, Serum 3.2 g/dL (3.2-5.0); Alkaline Phosphatase 102 U/L (45-117); Anion Gap 4 (5-15); BUN 17 mg/dL (7-18); BUN/Creat Ratio 21.1 RATIO (10-20); Calcium,Total 9.6 mg/dL (8.5-10.1); Chloride 102 mmol/L (98-107); EST Glomerular Filtration Rate 76 mL/min (>60); Est Glom Filt Rate - Afr Amer 91 mL/min (>60); Estimated Creatinine Clearance 63.88 ml/min; Glucose 113 mg/dL (74-106); Potassium 4.1 mmol/L (3.5-5.1); Protein, Total 7.2 g/dL (6.4-8.2); Sodium Level 136 mmol/L (136-145)
[2021-01-03 14:26] LABS: Bacteria 0 SEEN /hpf (None Seen); Color, Urine Yellow (Yellow); Glucose, Dipstick Normal (Normal); Ketone-Dipstick Negative (Negative); Leukocyte Esterase-Dipstick Negative /ul (Negative); Mucous, Urine 0 SEEN /hpf (<or=2+); Nitrite-Dipstick Negative (Negative); Occult Blood-Urine Negative /ul (Negative); Protein-Dipstick Negative (Negative); Red Blood Cells-Urine 0 SEEN /hpf (0-5); Specific Gravity, Urine 1.015 (1.002-1.030); Squamous Epithelial Cells - UA 0 SEEN /hpf (5-10); Urine Bilirubin Dipstick Negative (Negative); Urine Clarity Clear (Clear); Urine Urobilinogen Normal (Normal); White Blood Cells 0 SEEN /hpf (0-5)
--- NOTE | 2021-01-03 14:55 | CASEMGMT ---
Social Work Pt's niece called this worker that pt is back in ED. Met with pt and niece in room. Pt stated she just couldn't transfer from the bed to the BSC - she doesn't know what happened - she could do it at TCU but couldn't do it at home. Validated the transition home can be tough; she is no longer in a controlled environment with the 24 hr assistance. Offered to assist with problem solving for a DC plan. Explained options - insurance has a good likelihood of not covering another SNF, but can still submit for precert. Explained [facility] is only in network with [facility] and [facility] in [place]. Offered to provide her other formerly [facility] SNF lists with quality and resource data. Pt denied. Pt stated she just doesn't have the extra assistance. Offered to provide nonskilled [facility] list to hire help, but cautioned the help may not be immediate. Explained if insurance does deny SNF, it would be out of pocket. Pt is over resources for Medicaid. Pt stated she doesn't have the funds to pay for a SNF. Niece expressed concern with pt returning home. validated concerns. stated pt is medically stable, but could admit for debility since she stated she doesn't have the help at home. Spoke with pt and inquired about plan - will admit for SNF placement private pay or pt is medically stable to DC home. Pt stated she cannot pay privately for a SNF if insurance does not pay; would like to see how it goes with [facility] nurse tomorrow, and feels she can do the same things at home that she would be able to do at a SNF. Wished her well. Relayed to nurse and Pt to DC back home via cot transport. JAVIER VannW
[2021-01-03 15:31] VITALS: BP 148/95; PULSE 82; RESP 18; O2SAT 96
[2021-01-03 16:44] VITALS: BP 155/95; PULSE 89; RESP 16; TEMP 37.2; O2SAT 96
== END 2021-01-03 18:18 | disposition home or self-care (01) ==
PROVIDERS: Emergency Provider Emergency Medicine
DX: F32.A Depression, unspecified (principal); E78.5 Hyperlipidemia, unspecified; I10 Essential (primary) hypertension; M17.0 Bilateral primary osteoarthritis of knee; E66.9 Obesity, unspecified; Z79.891 Long term (current) use of opiate analgesic; Z79.899 Other long term (current) drug therapy
CPT/HCPCS: 80053; 81001; 85025; 96360; 96361; 99285; J7030

== ENCOUNTER 2021-01-05 10:57 | Observation (INO) | payer OTHER, MEDICARE, SELFPAY ==
[2021-01-05] VITALS (7 sets, daily range): BP systolic 128–180; BP diastolic 33–100; PULSE 88–107; RESP 18–20; TEMP 36.6–36.9; O2SAT 92–97; BMI 45.6; BMI 45.0
--- NOTE | 2021-01-05 11:20 | VDLE_ITS ---
Reason For Study: Swelling RIGHT GSV is normal. CFV is compressible, spontaneous, phasic, competent and demonstrates normal augmentation. FV is compressible, spontaneous, phasic, competent and demonstrates normal augmentation. POP V is compressible, spontaneous, phasic, competent and demonstrates normal augmentation. T/P Trunk is compressible. PTV is compressible. RT PerV is compressible. Procedure This is a venous duplex using B-mode, color flow and spectral Doppler. Exam performed portable in ED. A preliminary report was called and/or faxed to [facility]. VL/Venous Duplex US, Unilateral Interpretation Summary There is no evidence of right lower extremity deep vein thrombosis. Right great saphenous vein appears patent and compressible segmentally. Ordering Physician: Maynor Frias Performed By: Tabby Goodson RVT
--- NOTE | 2021-01-05 11:22 | EDS_ITS ---
HPI History of Present Illness Chief Complaint: Lower Extremity Injury Detail of Chief Complaint: Right lower extremity edema and redness. No injury. Informant: patient Occured/Mechanism Mechanism/Context: No injury Onset/Context/Timing Onset: Days Context: Gradual Onset Timing: Continuous Quality of Pain: Aching Current Severity: Mild Maximum Severity: Mild Narrative Narrative: Six 5-year-old female status post recent back surgery of her thoracic spine done at the [facility] around December 03. From there she was in a transitional care unit here for rehab and was just discharged home 3 days ago on Monday. Is developed swelling and redness in her right lower extremity. Denies any fever or chills. Thinks also that she may need more assistance at home. Prior similar symptoms: No Recent Illness/Hospitalization: Yes PFSH [facility] Medical History Cellulitis Debility Depression Herpes zoster Hyperlipidemia Hypertension Muscle spasm Neuropathic pain Osteoarthritis Osteoarthritis of knees, bilateral Pseudogout of right knee Thoracic spinal stenosis Vitamin D deficiency Home Medications amlodipine 5 mg PO DAILY 12/08/20 [History Last Taken Unknown] atorvastatin 10 mg PO DAILY@2200 12/08/20 [History Last Taken Unknown] cholecalciferol (vitamin D3) [Vitamin D3] 2,000 unit PO DAILY 12/08/20 [History Last Taken Unknown] clonidine HCl 0.1 mg PO BID 12/08/20 [History Last Taken Unknown] diclofenac sodium [Voltaren Arthritis Pain] 1 ea TOPICAL Q6H 12/08/20 [History Last Taken Unknown] sertraline 100 mg PO DAILY 12/08/20 [History Last Taken Unknown] acetaminophen 1,000 mg PO Q6H PRN PRN #0 tab 01/01/21 [Rx Last Taken Unknown] betamethasone valerate 1 applic TOPICAL BID #0 g 01/01/21 [Rx Last Taken Unknown] gabapentin 300 mg PO BID 30 Days #60 cap 01/01/21 [Rx Last Taken Unknown] methocarbamol 750 mg PO Q8H 30 Days #90 tab 01/01/21 [Rx Last Taken Unknown] metoprolol tartrate 25 mg PO BID 30 Days #60 tab 01/01/21 [Rx Last Taken Unknown] oxycodone 10 mg PO 0600,1400,2200 7 Days #42 tab 01/01/21 [Rx Last Taken Unknown] potassium chloride [Klor-Con M20] 20 meq PO DAILYCM 30 Days #30 tab 01/01/21 [Rx Last Taken Unknown] rivaroxaban [Xarelto] 20 mg PO DINNER@1700 30 Days #30 tab 01/01/21 [Rx Last Taken Unknown] sennosides [Donna-rakan] 17.2 mg PO BID 30 Days #120 tab 01/01/21 [Rx Last Taken Unknown] Allergy/AdvReac Type Severity Reaction Status Date / Time acetaminophen [From Vicodin] Allergy Anaphylaxis Verified 01/03/21 13:10 hydrocodone [From Vicodin] Allergy Anaphylaxis Verified 01/03/21 13:10 lorazepam [From Ativan] Allergy Hives Verified 05/25/18 09:41 neomycin Allergy Hives Verified 05/25/18 09:41 Surgical History History of adenoidectomy History of back surgery Hx of tonsillectomy Social History household members: family Smoking Status: Never smoker alcohol intake: never substance use type: does not use ROS ROS ED ROS Narrative Denies. Review of Systems ROS Unobtainable: Denies due to encephalopathy Constitutional Constitutional ED: Denies fever(s) Eyes Eyes: Denies change in vision ENT ENT ED: Denies ear pain or sore throat Cardiovascular Cardiovascular: Denies chest pain Respiratory/Chest Respiratory/Chest: Denies cough or dyspnea Gastrointestinal Gastrointestinal: Denies abdominal pain, diarrhea, nausea or vomiting Genitourinary Genitourinary ED: Denies dysuria Musculoskeletal Musculoskeletal: Denies myalgias Integumentary Denies rash Neurologic Neurologic: Denies headache(s) Psychiatric Psychiatric: Denies depression Endocrine Endocrinology: Denies polyuria Hematologic/Lymphatic Hematologic/Lymphatic: Denies easy bruising Allergic/Immunologic Allergic/Immunologic ED: Denies urticaria EXAM Physical Exam Narrative Exam Narrative: 5-year-old female no acute distress vital signs stable afebrile. H EENT exam unremarkable. Lungs clear to auscultation bilaterally. Heart regular rhythm no murmur rate about 100. Abdomen soft nontender normal bowel sounds no peritoneal signs. Moving all 4 extremities. Right lower leg has edema and redness consistent with cellulitis from the proximal lower extremity below the knee down into her foot. This is consistent with cellulitis. It does shakir. It is warm to touch. She is able to wiggle her toes. Calf is nontender without cord. There is no obvious wound. Neurologically she is awake and alert. Const Vital Signs: 01/05/21 10:58 01/05/21 11:04 01/05/21 12:00 Temperature 97.8 F 97.8 F 98.2 F Temperature Source Oral Oral Oral Pulse Rate 105 H 105 H 107 H Respiratory Rate 20 H 20 H 20 H Blood Pressure 161/65 H 161/65 H 180/65 H Blood Pressure Mean 97 97 103 Pulse Ox 97 97 96 Oxygen Delivery Method Room Air Room Air Room Air Positive well nourished, well developed and obese; Negative for cachectic, contractures or unkempt General Appearance ED: well developed and NAD; Negative for unkempt, cachectic or contractures Nutritional Appearance: obese; Negative for cachectic HEENT Reports moist mucous membranes normocephalic and atraumatic; Negative for trauma or tenderness Eyes PERRL Neck full ROM and supple Thyroid: Negative for tender Chest Wall inspection of chest normal and palpation of chest normal Resp normal respiratory effort, no retractions and clear to auscultation bilaterally Auscultation: Negative for rales, rhonchi or wheezes Cardio regular rate, regular rhythm, S1 normal heart sound, S2 normal heart sound and no murmurs GI non-tender, non-distended and no masses Auscultation: normoactive bowel sounds Palpation: soft; Negative for tender or guarding Back/Spine no CVA tenderness Extremity Extremity Narrative: Right lower extremity has edema with cellulitis just below the knee and foot. Blanches to palpation. Able to wiggle her toes. Normal dorsi plantar flexion Neuro oriented x3 and moves all extremities Sensorium / Orientation: alert, oriented to person, oriented to place and oriented to time; Negative for orientation impaired, lethargic or stuporous Psych mental status grossly normal Appearance: Negative for unkempt Mood & Affect: Negative for anxious Skin no wounds Skin Narrative: Cellulitis right lower extremity. Lesions: no lesions Trauma: Negative for abrasion or laceration MDM MDM MDM Narrative Medical decision making narrative: 65-year-old female recent hospitalization at [facility] for thoracic spine surgery. Then was in the TCU for re habilitation. Now is home. Has developed redness and swelling to right lower extremity last several days. Clinically I think this is cellulitis. Will be treated with IV Unasyn. Screening labs are being obtained. She will also receive an ultrasound the right lower extremity rule out a DVT. She will also be evaluated by social work msw for additional home health versus other possibilities. After speaking on the social work lecturer and her lengthy discussions with the patient she will be admitted for cellulitis and failure to thrive and for placement. I discussed that with the hospitalist she will be observation admitted to [facility]. Patient is comfortable with the plan. Lab Data Attestation: I reviewed the patient's lab results. Lab results narrative: CBC shows white count 9. Hemoglobin 10.9. No bands. Electrolytes unremarkable gap of 6 normal creatinine at 0.8 glucose of 102. Venous study of the right lower extremity shows no DVT per the ruling technician. Labs: Laboratory Results - last 24 hr 01/05/21 01/05/21 11:50 11:50 WBC 9.7 RBC 3.94 L Hgb 10.9 L Hct 34.1 L MCV 86.5 MCH 27.7 MCHC 32.0 RDW Std Deviation 46.2 H RDW Coeff of Laila 14.6 Plt Count 409 MPV 9.2 Immature Gran % (Auto) 0.200 Neut % (Auto) 74.5 H Lymph % (Auto) 13.9 L Hughes % (Auto) 8.5 Eos % (Auto) 2.2 Baso % (Auto) 0.7 Absolute Neuts (auto) 7.3 Absolute Lymphs (auto) 1.35 Nucleated RBC % 0 Sodium 140 Potassium 4.0 Chloride 106 Carbon Dioxide 28.0 Anion Gap 6 BUN 16 Creatinine 0.86 Estim Creat Clear Calc 59.42 Est GFR (MDRD) Af Amer 84 Est GFR (MDRD) Non-Af 70 BUN/Creatinine Ratio 18.5 Glucose 102 Calcium 9.5 Radiography Diagnostic Testing: Clinical Impression(s) from Imaging Studies Venous Doppler Study 01/05/21 11:20 Interpretation Summary There is no evidence of right lower extremity deep vein thrombosis. Right great saphenous vein appears patent and compressible segmentally. Ordering Physician: Maynor Frias Performed By: Tabby Goodson RVT Discharge Plan Triage Chief Complaint: Lower Extremity Injury ED Provider: Maynor Frias Dx/Rx/DC Orders Clinical Impression: Cellulitis of leg, right, Adult failure to thrive, History of back surgery Prescriptions: No Action diclofenac sodium [Voltaren Arthritis Pain] 1 % Gel 1 ea TOPICAL Q6H RF: 0 clonidine HCl 0.1 MG tablet 0.1 mg PO BID RF: 0 atorvastatin 10 MG tablet 10 mg PO DAILY@2200 RF: 0 sertraline 100 MG tablet 100 mg PO DAILY RF: 0 amlodipine 5 MG tablet 5 mg PO DAILY RF: 0 cholecalciferol (vitamin D3) [Vitamin D3] 1,000 UNIT tablet 2,000 unit PO DAILY RF: 0 acetaminophen 500 mg Tablet 1,000 mg PO Q6H PRN PRN (Reason: Pain Score 1-10) Qty: 0 RF: 0 sennosides [Donna-rakan] 8.6 mg Tablet 17.2 mg PO BID 30 Days Qty: 120 RF: 0 oxycodone 5 mg Tablet 10 mg PO 0600,1400,2200 7 Days Qty: 42 RF: 0 potassium chloride [Klor-Con M20] 20 mEq Tablet,Er Particles/Crystals 20 meq PO DAILYCM 30 Days Qty: 30 RF: 0 betamethasone valerate 0.1 % Cream 1 applic topical BID Qty: 0 RF: 0 metoprolol tartrate 25 mg Tablet 25 mg PO BID 30 Days Qty: 60 RF: 0 Xarelto 20 mg Tablet 20 mg PO DINNER@1700 30 Days Qty: 30 RF: 0 methocarbamol 750 mg Tablet 750 mg PO Q8H 30 Days Qty: 90 RF: 0 gabapentin 300 MG capsule 300 mg PO BID 30 Days Qty: 60 RF: 0 Referrals: Gisela Metcalf [Other] Disposition Disposition: Acute Care [facility]
[2021-01-05 11:55] LABS: Absolute Lymphocyte Count 1.35 X10^3/uL (0.83-4.51); Absolute Neutrophil Count 7.3 X10^3/uL (2.0-7.7); Basophil# 0.07 X10^3/uL; Basophil% 0.7 % (0-1); Eosinophil# 0.21 X10^3/uL; Eosinophils% 2.2 % (0-5); Hematocrit 34.1 % (37-47); Hemoglobin 10.9 g/dL (12.0-15.0); Lymphocyte # 1.35 X10^3/ul (0.83-4.51); Lymphocyte % 13.9 % (19-41); Mean Corpuscular Hgb 27.7 pg (27.0-32.0); Mean Corpuscular Volume 86.5 fL (81-99); Mean Platelet Vol. 9.2 fl (6.2-12.0); Monocyte# 0.83 X10^3/uL; Monocyte% 8.5 % (0-10); NRBC Flagged by Analyzer 0 % (0-5); Neutrophil # 7.26 X10^3/uL (2.7-7.7); Neutrophil % 74.5 % (47-70); Platelet Count 409 K/mm3 (150-450); RBC Distribution Width CV 14.6 % (11.6-14.6); RBC Distribution Width SD 46.2 fl (35.1-43.9); Red Blood Count 3.94 M/mm3 (4.2-5.4); White Blood Count 9.7 K/mm3 (4.4-11.0)
[2021-01-05 12:07] LABS: Anion Gap 6 (5-15); BUN 16 mg/dL (7-18); BUN/Creat Ratio 18.5 RATIO (10-20); Calcium,Total 9.5 mg/dL (8.5-10.1); Chloride 106 mmol/L (98-107); Creatinine, Serum 0.86 mg/dL (0.55-1.02); EST Glomerular Filtration Rate 70 mL/min (>60); Est Glom Filt Rate - Afr Amer 84 mL/min (>60); Estimated Creatinine Clearance 59.42 ml/min; Glucose 102 mg/dL (74-106); Sodium Level 140 mmol/L (136-145)
[2021-01-05] MEDS: Ondansetron 4 MG/2 ML Vial IV (12:20)
[2021-01-05] MEDS: morphine 8 MG/ML Syringe IV (12:20)
--- NOTE | 2021-01-05 12:43 | CM.ED ---
Addendum entered by Alyssa Valdes 01/05/21 21:15: Late Entry for 01/05 SW called TCU and spoke to Reyna. Reyna said that patient needs ad terminal makeup operator care and is not appropriate to return to TCU. and RN updated. Alyssa RICHARDSON Original Note: NELLY Note Referral Source: MD Referral Reason: Discharge planning SW called TCU and left voice mail for Reyna that patient was in ED and if she could come back to the TCU. SW met with patient. Kyle reports it's hard at home and related that she was showed how to care for herself but I had no training. Patient said that she has no help at home and it is not going well. Patient said that last night family came over to help her get situation but things were moved around the room and at the middle of the night she got up and things were all over. Patient said that she used my sock as a plug to pee (urinate) and when it got full I would use another sock. Patient said that she feels the biggest problem is toileting and no one can help. Patient said that she can't sit on a regular toilet. Patient said that she had decided to see what the home health assessment stated and when they came for the assessment they told her to come to the ED. Patient said that all she could do this morning was get dressed and wash.. I couldn't eat or drink and I was panicking. RN update and MD will be updated. Alyssa RICHARDSON
--- NOTE | 2021-01-05 13:01 | PCM.HP.STD ---
HPI - General General Date of Admission: 01/05/21 HPI Narrative BARBARA KARIMI, is a 65 F with recent history of thoracic spine surgery in [facility] on December 03 came to ER for not able to ambulate, stand up and generalized weakness. She was also found to have right leg cellulitis which is ongoing for 1 week. This is started in foot region around the toes and moved proximally below knee level. There is pain, increased warmth, tenderness and redness below knee level. Patient felt chills and shivering but did not take her temperature at home. In ED, her vitals does not show fever but mild tachycardia, heart rate 105, high BP 161/65-180/100 with no hypoxia. Patient is morbidly obese with large body habitus and difficulty to turn around or move. Patient was started on IV Unasyn in the ER and decided to admit. [facility] Medical History Cellulitis Debility Depression Herpes zoster Hyperlipidemia Hypertension Muscle spasm Neuropathic pain Osteoarthritis Osteoarthritis of knees, bilateral Pseudogout of right knee Thoracic spinal stenosis Vitamin D deficiency Home Medications amlodipine 5 mg PO DAILY 12/08/20 [History Last Taken Unknown] atorvastatin 10 mg PO DAILY@2200 12/08/20 [History Last Taken Unknown] cholecalciferol (vitamin D3) [Vitamin D3] 2,000 unit PO DAILY 12/08/20 [History Last Taken Unknown] clonidine HCl 0.1 mg PO BID 12/08/20 [History Last Taken Unknown] diclofenac sodium [Voltaren Arthritis Pain] 1 ea TOPICAL Q6H 12/08/20 [History Last Taken Unknown] sertraline 100 mg PO DAILY 12/08/20 [History Last Taken Unknown] acetaminophen 1,000 mg PO Q6H PRN PRN #0 tab 01/01/21 [Rx Last Taken Unknown] betamethasone valerate 1 applic TOPICAL BID #0 g 01/01/21 [Rx Last Taken Unknown] gabapentin 300 mg PO BID 30 Days #60 cap 01/01/21 [Rx Last Taken Unknown] methocarbamol 750 mg PO Q8H 30 Days #90 tab 01/01/21 [Rx Last Taken Unknown] metoprolol tartrate 25 mg PO BID 30 Days #60 tab 01/01/21 [Rx Last Taken Unknown] oxycodone 10 mg PO 0600,1400,2200 7 Days #42 tab 01/01/21 [Rx Last Taken Unknown] potassium chloride [Klor-Con M20] 20 meq PO DAILYCM 30 Days #30 tab 01/01/21 [Rx Last Taken Unknown] rivaroxaban [Xarelto] 20 mg PO DINNER@1700 30 Days #30 tab 01/01/21 [Rx Last Taken Unknown] sennosides [Donna-rakan] 17.2 mg PO BID 30 Days #120 tab 01/01/21 [Rx Last Taken Unknown] Allergy/AdvReac Type Severity Reaction Status Date / Time acetaminophen [From Vicodin] Allergy Anaphylaxis Verified 01/03/21 13:10 hydrocodone [From Vicodin] Allergy Anaphylaxis Verified 01/03/21 13:10 lorazepam [From Ativan] Allergy Hives Verified 05/25/18 09:41 neomycin Allergy Hives Verified 05/25/18 09:41 Surgical History History of adenoidectomy History of back surgery Hx of tonsillectomy Social History household members: family Smoking Status: Never smoker alcohol intake: never substance use type: does not use ROS ROS Narrative Constitutional: Reports fatigue and generalized weakness. Fatigue. Morbid obesity HEENT: Reports systems reviewed and no addt'l complaints, except as documented Respiratory/Chest: Denies chest pain, shortness of breath at rest. Gastrointestinal: Denies coffee ground emesis, hematemesis or vomiting. Chronic bowel urgency but no incontinent Genitourinary: Denies burning urination or new urinary tract symptoms. Has chronic urine urgency. Musculoskeletal: Reports joint pain and limited range of motion Neurologic: Denies seizure-like activity skin: Rash in the right lower leg, redness Endocrinology: Reports systems reviewed and no addt'l complaints, except as documented Hematologic/Lymphatic: Reports systems reviewed and no addt'l complaints, except as documented Rest 12 ROS are negative except as mentioned in HPI Vital Signs Vital Signs Vital Signs: 01/05/21 10:58 01/05/21 11:04 01/05/21 12:00 Temperature 97.8 F 97.8 F 98.2 F Temperature Source Oral Oral Oral Pulse Rate 105 H 105 H 107 H Respiratory Rate 20 H 20 H 20 H Blood Pressure 161/65 H 161/65 H 180/65 H Blood Pressure Mean 97 97 103 Pulse Ox 97 97 96 Oxygen Delivery Method Room Air Room Air Room Air Weight Weight: 282 lb 6.594 oz Body Mass Index (BMI) 45.6 Physical Exam Narrative General: Alert, Oriented x3, Cooperative HEENT: Atraumatic, PERRLA, EOMI, Normocephalic Oral: No Gingival or Mucosal Lesions/ Ulcerations Neck: Supple, No JVD, Negative Carotid Bruits Lungs: Air entry diminished in bilateral lung bases. No crepitation/rhonchi Cardiovascular: Mild sinus tachycardia, Normal S1, Normal S2, No murmurs Abdomen: Bowel Sounds Present, Soft, Non Tender, Non-Distended : No renal angle tenderness. No suprapubic tenderness. Extremities: No edema, Capillary Refill Less than 3 Seconds Skin: Erythema, tenderness, induration below right knee. Musculoskeletal/spine: Recent surgical well-healed scar over lower thoracic spine. No Tenderness to Palpation of thoracolumbar spine. Difficulty in turning around/sitting up in bed Neurological: Cranial nerves II-XII grossly intact, DTR 2+/4. Could not stand up/ambulate Psych/Mental Status: Flat affect. Results Lab / Micro Data Result Diagrams: 01/05/21 11:50 01/05/21 11:50 Labs: Laboratory Results - last 24 hr 01/05/21 11:50: WBC 9.7, RBC 3.94 L, Hgb 10.9 L, Hct 34.1 L, MCV 86.5, MCH 27.7, MCHC 32.0, RDW Std Deviation 46.2 H, RDW Coeff of Laila 14.6, Plt Count 409, MPV 9.2, Immature Gran % (Auto) 0.200, Neut % (Auto) 74.5 H, Lymph % (Auto) 13.9 L, [place] % (Auto) 8.5, Eos % (Auto) 2.2, Baso % (Auto) 0.7, Absolute Neuts (auto) 7.3, Absolute Lymphs (auto) 1.35, Nucleated RBC % 0 01/05/21 11:50: Sodium 140, Potassium 4.0, Chloride 106, Carbon Dioxide 28.0, Anion Gap 6, BUN 16, Creatinine 0.86, Estim Creat Clear Calc 59.42, Est GFR (MDRD) Af Amer 84, Est GFR (MDRD) Non-Af 70, BUN/Creatinine Ratio 18.5, Glucose 102, Calcium 9.5 Radiology Impression Venous Doppler Study 01/05/21 11:20 Interpretation Summary There is no evidence of right lower extremity deep vein thrombosis. Right great saphenous vein appears patent and compressible segmentally. Ordering Physician: Maynor Frias Performed By: Tabby Goodson RVT Assessment & Plan Assessment/Plan (1) Cellulitis of leg, right: PLAN: 1. Right lower leg cellulitis: Patient does not have leukocytosis, fever but mild sinus tachycardia. Started on IV Unasyn and will continue it. Monitor local improvement of cellulitis. 2. Debility due to recent thoracic spine surgery: Patient has chronic neuropathic pain and is on gabapentin will continue it. Patient had thoracic laminectomy and fusion surgery on 12/03/2020. She was discharged from TCU on past Monday. Surgical scar is well-healed. PT OT and family service caseworker consult 3. Hypertension and dyslipidemia: Resume home blood pressure medication. IV hydralazine for systolic blood pressure more than 180 mmHg. 4. Paroxysmal A. fib: Twelve-lead EKG ordered. Patient on Xarelto will continue it. Patient stated she was recently diagnosed A. fib. 5. Other chronic comorbidities include vitamin D deficiency, herpes zoster history, anxiety and depression, morbid obesity: Patient BMI is 45.6 kg/m?. Home medication reconciliation done. On sertraline. Living will/advanced directive/end of life care: Patient does not have living will or advanced directive. She states her next of kin is her Sister. After discussion of benefits/risks procedures involved with full code, DNR CC arrest and DNR CC, the patient opted for full code. Patient does want artificial life support including intubation, tube feed, ventilator and/chest compression, central venous catheter, vasopressor and DC shock if needed Total time spent in [id number] encounter in discussion of advanced directive 16 minutes. Charges/Coding Visit Charges OBSV E&M: 30972 Subsequent observation care L3 Procedures Hospitalists Procedures: 56023 Advncd Care Plan 30 Min
--- NOTE | 2021-01-05 13:12 | ED.RN ---
PT IN ROOM ANT. WHEN ASKED WHY PT STATES I JUST DON'T KNOW IF THIS IS WHAT I WANT, I MIGHT END UP SOMEWHERE I DON'T WANT TO BE. PT UNSURE IF SHE IS AGREEABLE TO STAYING
--- NOTE | 2021-01-05 13:56 | EKG12_ITS ---
Test Reason : ADMITT Blood Pressure : / mmHG Vent. Rate : 101 BPM Atrial Rate : 101 BPM P-R Int : 150 ms QRS Dur : 082 ms QT Int : 354 ms P-R-T Axes : 043 029 011 degrees QTc Int : 459 ms Sinus tachycardia Otherwise normal ECG When compared with ECG of 11-DEC-2020 10:42, Sinus rhythm has replaced Atrial fibrillation Confirmed by MARILEE SPIVEY, PETRONA ([id number]), publishing editor MIGUEL GEORGE ([id number]) on 01/06/2021 2:02:51 PM Referred By: Confirmed By:PETRONA HUNT MD
[2021-01-05] MEDS: Psyllium 1 PACKET PO ×2 (16:20→22:10)
[2021-01-05] MEDS: Methocarbamol 750 MG Tablet PO ×2 (16:20→22:10)
[2021-01-05] MEDS: oxyCODONE 5 MG Tablet 10 MG PO ×2 (16:20→22:09)
[2021-01-05] MEDS: Gabapentin 300 MG Capsule PO ×2 (16:20→22:10)
[2021-01-05] MEDS: Rivaroxaban 20 MG Tablet PO (18:42)
[2021-01-05] MEDS: 0.9% Saline Lock 10 ML Syringe IV (19:08)
--- NOTE | 2021-01-05 21:16 | CM.ED ---
SW Note SW went to see patient after she was reported crying in the ED however, per the RN she had been transferred to acute unit. Alyssa RICHARDSON
[2021-01-05] MEDS: cloNIDine HCl 0.1 MG Tablet PO (22:10)
[2021-01-05] MEDS: Atorvastatin Calcium 10 MG Tablet PO (22:10)
[2021-01-05] MEDS: Metoprolol Tartrate 25 MG Tablet PO (22:10)
[2021-01-05] MEDS: Senna Tablet 2 TABLET PO (22:11)
[2021-01-05] MEDS: Menthol/Lanolin/Calamine/Znox 113 GM Tube 1 APPLIC TOPICAL (22:12)
[2021-01-06] VITALS (7 sets, daily range): BP systolic 127–133; BP diastolic 40–70; PULSE 80–92; RESP 16–18; TEMP 36.8–37.9; O2SAT 92–94
[2021-01-06] MEDS: Psyllium 1 PACKET PO ×2 (05:25→14:08)
[2021-01-06] MEDS: oxyCODONE 5 MG Tablet 10 MG PO ×3 (05:30→22:53)
[2021-01-06] MEDS: Methocarbamol 750 MG Tablet PO ×3 (05:31→22:52)
[2021-01-06 06:55] LABS: Absolute Lymphocyte Count 1.83 X10^3/uL (0.83-4.51); Absolute Neutrophil Count 4.8 X10^3/uL (2.0-7.7); Basophil# 0.04 X10^3/uL; Basophil% 0.5 % (0-1); Eosinophil# 0.27 X10^3/uL; Eosinophils% 3.5 % (0-5); Hematocrit 30.7 % (37-47); Hemoglobin 9.5 g/dL (12.0-15.0); Lymphocyte # 1.83 X10^3/ul (0.83-4.51); Lymphocyte % 23.6 % (19-41); Mean Corp Hgb Conc 30.9 g/dL (32-36); Mean Corpuscular Hgb 26.6 pg (27.0-32.0); Mean Platelet Vol. 9.3 fl (6.2-12.0); Monocyte# 0.76 X10^3/uL; Monocyte% 9.8 % (0-10); NRBC Flagged by Analyzer 0 % (0-5); Neutrophil # 4.84 X10^3/uL (2.7-7.7); Neutrophil % 62.2 % (47-70); Platelet Count 422 K/mm3 (150-450); RBC Distribution Width CV 14.7 % (11.6-14.6); RBC Distribution Width SD 46.5 fl (35.1-43.9); Red Blood Count 3.57 M/mm3 (4.2-5.4); White Blood Count 7.8 K/mm3 (4.4-11.0)
[2021-01-06 07:23] LABS: Anion Gap 5 (5-15); BUN 11 mg/dL (7-18); BUN/Creat Ratio 19.1 RATIO (10-20); Calcium,Total 8.8 mg/dL (8.5-10.1); Chloride 104 mmol/L (98-107); Creatinine, Serum 0.58 mg/dL (0.55-1.02); EST Glomerular Filtration Rate 111 mL/min (>60); Est Glom Filt Rate - Afr Amer 134 mL/min (>60); Estimated Creatinine Clearance 51.11 ml/min; Glucose 94 mg/dL (74-106); Potassium 3.8 mmol/L (3.5-5.1); Sodium Level 139 mmol/L (136-145)
[2021-01-06] MEDS: amLODIPine 10 MG Tablet PO (07:48)
[2021-01-06] MEDS: Potassium Chloride Oral Tablet 20 MEQ PO (07:48)
[2021-01-06] MEDS: Gabapentin 300 MG Capsule PO ×2 (07:48→22:53)
[2021-01-06] MEDS: Menthol/Lanolin/Calamine/Znox 113 GM Tube 1 APPLIC TOPICAL ×2 (07:48→22:51)
[2021-01-06] MEDS: Sertraline 100 MG Tablet PO (07:48)
[2021-01-06] MEDS: Cholecalciferol (VIT D3) 25 MCG TABLET (1,000 UNITS) 50 MCG PO (07:48)
[2021-01-06] MEDS: cloNIDine HCl 0.1 MG Tablet PO ×2 (07:48→22:51)
[2021-01-06] MEDS: Senna Tablet 2 TABLET PO ×2 (07:49→22:54)
[2021-01-06] MEDS: Metoprolol Tartrate 25 MG Tablet PO ×2 (10:50→22:52)
--- NOTE | 2021-01-06 12:22 | CASEMGMT ---
Addendum entered by Lucila Rodarte 01/06/21 13:22: SW spoke w/pt again, gave her information on Medicare. She asked for the application for part B, SW was able to find it online and gave it to her. SW spoke w/pt about SNF options, she is agreeable to a referral being sent to both [facility] and [facility]. Once PT/OT notes have been entered, the notes will be faxed to both facilities. SW started PAS/RR in the [facility] system as well. JOSE Scruggs Original Note: Social Work SW met w/pt in the room, pt in bed, trying to get comfortable. SW spoke w/pt about plan from here, she left TCU recently. SW did let pt know that TCU cannot take pt back. Pt states she is okay with this. SW provided to pt a list of long-term facilities in the area that take pt's insurance, complete with quality and resource use data. Pt is not sure how to choose a facility. SW directed pt to the list with the quality and resource use data. Pt is not certain what to do. Therapy then came in to work w/pt, SW explained to pt will come back to see her when she is done. SW called the three closest facilities to find out about bed availability: [facility]--message left, [facility]--they have bed availability, and [email or web address]--message left. Pt does not want to go back to [facility] as she's been there before and had a bad experience(transferred to TCU from there). Pt also had asked for information about Medicare, as pt plans to change insurance at the start of the year. Pt's insurance at present is through her employer, she plans to switch to Medicare or managed Medicare at the start of the year. SW was able to print some information for her and will bring back in to her. SW will continue to follow, will go back to speak w/pt after she works with therapy. JOSE Scruggs
--- NOTE | 2021-01-06 12:40 | CASEMGMT ---
MELODY CM in to discuss RENNER form with patient. RN CM explained RENNER form, patient voiced understanding. Pt signed form and filed in chart. Pt provided with a copy of signed RENNER form. Patient had no further questions or concerns at this time.
--- NOTE | 2021-01-06 13:50 | PN.HOSP_ITS ---
Subjective Subjective Seen and examined in the morning. Right leg cellulitis has improved in erythema and tenderness. It is now restricted to foot and ankle area. Objective Data Objective Data Vital Signs: Vital Signs Temp Pulse Resp BP Pulse Ox 98.6 F 80 18 133/70 H 93 01/06/21 07:55 01/06/21 10:50 01/06/21 07:55 01/06/21 10:50 01/06/21 08:24 Oxygen Delivery Method Room Air Weight: 280 lb 6.848 oz Body Mass Index (BMI) 45.0 Intake & Output: Intake and Output for Last 24 Hours 01/04/21 01/05/21 01/06/21 23:59 23:59 23:59 Intake Total 644 / 644 736 / 736 Output Total 500 / 500 Balance 644 / 144 236 / 236 Lab / Micro Data Result Diagrams: 01/06/21 06:10 01/06/21 06:10 Labs: Laboratory Results - last 24 hr 01/06/21 06:10: WBC 7.8, RBC 3.57 L, Hgb 9.5 L, Hct 30.7 L, MCV 86.0, MCH 26.6 L , MCHC 30.9 L, RDW Std Deviation 46.5 H, RDW Coeff of Laila 14.7 H, Plt Count 422, MPV 9.3, Immature Gran % (Auto) 0.400, Neut % (Auto) 62.2, Lymph % (Auto) 23.6, [place] % (Auto) 9.8, Eos % (Auto) 3.5, Baso % (Auto) 0.5, Absolute Neuts (auto) 4.8, Absolute Lymphs (auto) 1.83, Nucleated RBC % 0 01/06/21 06:10: Sodium 139, Potassium 3.8, Chloride 104, Carbon Dioxide 30.0, Anion Gap 5, BUN 11, Creatinine 0.58, Estim Creat Clear Calc 51.11, Est GFR (MDRD) Af Amer 134, Est GFR (MDRD) Non-Af 111, BUN/Creatinine Ratio 19.1, Glucose 94, Calcium 8.8 Physical Exam Narrative General: Alert, Oriented x3, Cooperative HEENT: Atraumatic, PERRLA, EOMI, Normocephalic Oral: No Gingival or Mucosal Lesions/ Ulcerations Neck: Supple, No JVD, Negative Carotid Bruits Lungs: Air entry diminished in bilateral lung bases. No crepitation/rhonchi Cardiovascular: Mild sinus tachycardia, Normal S1, Normal S2, No murmurs Abdomen: Bowel Sounds Present, Soft, Non Tender, Non-Distended : No renal angle tenderness. No suprapubic tenderness. Extremities: No edema, Capillary Refill Less than 3 Seconds Skin: Erythema, tenderness, induration is improving restricted to right ankle and foot. Musculoskeletal/spine: Recent surgical well-healed scar over lower thoracic spine. No Tenderness to Palpation of thoracolumbar spine. Neurological: Cranial nerves II-XII grossly intact, DTR 2+/4. Could not stand up/ambulate Psych/Mental Status: Flat affect. Assessment & Plan Assessment/Plan (1) Cellulitis of leg, right: PLAN: 1. Right lower leg cellulitis: Patient does not have leukocytosis, fever but mild sinus tachycardia. Started on IV Unasyn and will continue it. 01/06: Improvement in the cellulitis extent and findings. Continue IV Unasyn. 2. Debility due to recent thoracic spine surgery: Patient has chronic neuropathic pain and is on gabapentin will continue it. Patient had thoracic laminectomy and fusion surgery on 12/03/2020. She was discharged from TCU on past Monday. Surgical scar is well-healed. PT OT and correctional case records supervisor consult for possible inpatient rehab 3. Hypertension and dyslipidemia: Resume home blood pressure medication. IV hydralazine for systolic blood pressure more than 180 mmHg. 01/06: Blood pressure is controlled. 4. Paroxysmal A. fib: Twelve-lead EKG shows sinus tachycardia at 101 beats per alert. QTc 459 ms. Patient on Xarelto and continue patient stated she was recently diagnosed A. fib. 5. Other chronic comorbidities include vitamin D deficiency, herpes zoster history, anxiety and depression, morbid obesity: Patient BMI is 45.6 kg/m?. Home medication reconciliation done. On sertraline. Living will/advanced directive/end of life care: Patient does not have living will or advanced directive. She states her next of kin is her Sister. After discussion of benefits/risks procedures involved with full code, DNR CC arrest and DNR CC, the patient opted for full code. Patient does want artificial life support including intubation, tube feed, vent ilator and/chest compression, central venous catheter, vasopressor and DC shock if needed Total time spent in [id number] encounter in discussion of advanced directive 16 minutes. Charges/Coding Visit Charges Inpatient E&M: 40925 Subs Hosp L2
--- NOTE | 2021-01-06 15:05 | CASEMGMT ---
Social Work Note SW faxed referral to [facility]. Plan: SNF pending acceptance and pre-cert Tabby Omer RO[employer] CREW MEMBER, [employer] BUYING GRADER
--- NOTE | 2021-01-06 16:08 | CHAPLAIN ---
Type of Pastoral Visit _x__ Initial Visit ___ Follow-up Visit ___ On-call Visit ___ General Patient Visit ___ Spiritual Assessment ___ Family Conference ___ Bereavement ___ Rapid Response ___ Code Blue ___ Other (describe below) Pastoral Care Referral From _x__ Patient ___ Family ___ Nurse ___ Physician ___ Insulation Blower ___ Stripper And Taper ___ Other (describe below) Sacrament/Intervention _x__ Active listening ___ Anointing ___ Bahai ___ Bereavement ___ Communion ___ Kathie exploration ___ _x__ Life review _x__ Prayer ___ Reconciliation ___ Sacrament of Sick _x__ Supportive presence ___ Wedding ___ Other (describe below) Pastoral Comments patient was seen at last admission too; pt did not do well at home and has pain/discomfort during this visit; pt is tearful at times; pt seeks encouragement and presence; listening ear, prayer, and compassion given
--- NOTE | 2021-01-06 16:22 | CASEMGMT ---
Social Work Note SW received message from Trudy at [facility] stating she is able to accept pt. Trudy states she is not at the facility tomorrow or Monday and states there will be limited staff but this worker can call in Monday and ask staff to submit for pre-cert. NELLY received message from Elsie at [facility] stating they cannot accept pt due to no bed availability. NELLY in to speak with pt. SW introduced self and role at [facility]. SW informed pt that referrals were made to both [facility] and [facility]. SW informed pt that [facility] has no beds but [facility] is able to accept pt. SW informed pt that [facility] will submit for pre-cert Monday. Pt asked if she could have her brother go look at the facilities. SW informed pt that her brother can do, pt will need to confirm facility choice by Monday. Pt states she was at [facility] before and she would rather be than return there. NELLY spoke with pt regarding this comment. Pt states the care was awful and she plans on making a report to the [facility]. Pt denied any suicidal thoughts/plans/ideations. SW informed pt that this worker will check with her Monday morning to confirm SNF choices. Pt states understanding. Plan: SNF pending acceptance and pre-cert Tabby Omer DIRECTOR SALES SUPPORT, [employer]
[2021-01-06] MEDS: Rivaroxaban 20 MG Tablet PO (17:35)
[2021-01-06] MEDS: Acetaminophen 500 MG Tablet 1000 MG PO (17:35)
[2021-01-06] MEDS: Atorvastatin Calcium 10 MG Tablet PO (22:52)
[2021-01-07] VITALS (8 sets, daily range): BP systolic 127–144; BP diastolic 50–75; PULSE 71–85; RESP 16–18; TEMP 36.8–37.2; O2SAT 93–96
[2021-01-07] MEDS: 0.9% Saline Lock 10 ML Syringe IV ×2 (00:49→07:05)
[2021-01-07] MEDS: Acetaminophen 500 MG Tablet 1000 MG PO ×2 (00:49→14:11)
[2021-01-07 06:30] LABS: Absolute Lymphocyte Count 1.48 X10^3/uL (0.83-4.51); Absolute Neutrophil Count 5.9 X10^3/uL (2.0-7.7); Basophil# 0.05 X10^3/uL; Basophil% 0.6 % (0-1); Eosinophil# 0.21 X10^3/uL; Eosinophils% 2.4 % (0-5); Hematocrit 30.3 % (37-47); Hemoglobin 9.3 g/dL (12.0-15.0); Lymphocyte # 1.48 X10^3/ul (0.83-4.51); Lymphocyte % 16.6 % (19-41); Mean Corp Hgb Conc 30.7 g/dL (32-36); Mean Corpuscular Hgb 26.4 pg (27.0-32.0); Mean Corpuscular Volume 86.1 fL (81-99); Mean Platelet Vol. 9.2 fl (6.2-12.0); Monocyte# 1.18 X10^3/uL; Monocyte% 13.2 % (0-10); NRBC Flagged by Analyzer 0 % (0-5); Neutrophil # 5.94 X10^3/uL (2.7-7.7); Neutrophil % 66.6 % (47-70); Platelet Count 392 K/mm3 (150-450); RBC Distribution Width CV 14.6 % (11.6-14.6); RBC Distribution Width SD 45.4 fl (35.1-43.9); Red Blood Count 3.52 M/mm3 (4.2-5.4); White Blood Count 8.9 K/mm3 (4.4-11.0)
--- NOTE | 2021-01-07 06:43 | PCM.PN.HOSP ---
Subjective Subjective Patient overnight with continued right shoulder discomfort which he notes started after EMS helped her out of her home. She noted that it initially when they got her up there was a crunching sound after they elevated her under the arm and since then it has had a dull aching ongoing discomfort. Plain film obtained and questionable rotator cuff tear with pending orthopedic surgery evaluation with potentially more imaging per their discretion. Patient right lower extremity erythema has 6 significantly improved and nearly resolved. Patient notes that she needs list of skilled facilities near her family in [place] as this is where she will not be therefore no skilled facility chosen yet and she will require precertification additionally. Patient with therapy attempts noted per their service to not be very interactive and engaging. Patient denies fevers, chills, nausea, emesis, abdominal pain, chest pain or dyspnea. Objective Data Objective Data Vital Signs: Vital Signs Temp Pulse Resp BP Pulse Ox 98.4 F 71 18 131/51 H 93 01/07/21 01:53 01/07/21 01:53 01/07/21 01:53 01/07/21 01:53 01/07/21 01:53 Oxygen Delivery Method Room Air Weight: 280 lb 6.848 oz Body Mass Index (BMI) 45.0 Intake & Output: Intake and Output for Last 24 Hours 01/05/21 01/06/21 01/07/21 23:59 23:59 23:59 Intake Total 644 / 644 1648 / 2260 612 / 612 Output Total 800 / 1100 300 / 300 Balance 644 / 144 848 / 1160 312 / 312 Lab / Micro Data Result Diagrams: 01/07/21 05:55 01/07/21 05:55 Labs: Laboratory Results - last 24 hr 01/06/21 06:10: WBC 7.8, RBC 3.57 L, Hgb 9.5 L, Hct 30.7 L, MCV 86.0, MCH 26.6 L, MCHC 30.9 L, RDW Std Deviation 46.5 H, RDW Coeff of Laila 14.7 H, Plt Count 422, MPV 9.3, Immature Gran % (Auto) 0.400, Neut % (Auto) 62.2, Lymph % (Auto) 23.6, [place] % (Auto) 9.8, Eos % (Auto) 3.5, Baso % (Auto) 0.5, Absolute Neuts (auto) 4.8, Absolute Lymphs (auto) 1.83, Nucleated RBC % 0 01/06/21 06:10: Sodium 139, Potassium 3.8, Chloride 104, Carbon Dioxide 30.0, Anion Gap 5, BUN 11, Creatinine 0.58, Estim Creat Clear Calc 51.11, Est GFR (MDRD) Af Amer 134, Est GFR (MDRD) Non-Af 111, BUN/Creatinine Ratio 19.1, Glucose 94, Calcium 8.8 01/07/21 05:55: WBC 8.9, RBC 3.52 L, Hgb 9.3 L, Hct 30.3 L, MCV 86.1, MCH 26.4 L, MCHC 30.7 L, RDW Std Deviation 45.4 H, RDW Coeff of Laila 14.6, Plt Count 392, MPV 9.2, Immature Gran % (Auto) 0.600, Neut % (Auto) 66.6, Lymph % (Auto) 16.6 L, [place] % (Auto) 13.2 H, Eos % (Auto) 2.4, Baso % (Auto) 0.6, Absolute Neuts (auto) 5.9, Absolute Lymphs (auto) 1.48, Nucleated RBC % 0 Physical Exam Narrative Physical Examination: General: Awake, alert, oriented x 3 and cooperative, seated upright in the bedside chair, no acute distress. Skin: Normal color, normal turgor, no icterus, no cyanosis except occasional staged ecchymoses and significantly improved right lower extremity erythema with redness completely retreated from prior outline. HEENT: AT/NC, EOMI, PERRLA, MMM. Lungs: Mild diminished, greater bases, appropriate effort, no rales, ronchi or wheezing. Heart: Regular rate and rhythm; no gallop, rub audible. Abdomen: Soft, morbidly obese, NTTP, difficult to discern distention given habitus, distant normal BS. Extremities: No cyanosis, no clubbing, significantly improved near resolved right lower extremity erythema, mild bilateral nonpitting edema of the ankle region. Neurological: Patient awake, alert, oriented as noted, cognitive function intact; pupils equally reactive to light and accommodation, cranial nerves II-XII grossly normal, moving all 4 extremities, no focal deficits, strength moderately to severely global decreased. Psychiatric: Affect appears normal, no acute evidence of depressive or anxiety feelings. Assessment & Plan Assessment/Plan (1) Cellulitis of leg, right: (2) Adult failure to thrive: PLAN: The patient is a 65 y/o F w/ PMHx: PAF, Anxiety and Depression, Hx EtOH abuse, Morbid Obesity, HTN, HLD, Former tobacco use, Chronic pain syndrome, IRIS on BIPAP q HS who presents to the [facility] ED on 01/05/21 with recent history of thoracic spinal surgery 12/03/2020 at the [facility] with significant decline, inability to care for self, inability to ambulate and generalized weakness with incidentally noted on presentation right lower extremity cellulitis likely ongoing for at least 1 week reportedly starting at her foot and progressively becoming more proximal. #1. RLE Acute Cellulitis: Patient admitted to medical surgical floor, maintained on IV Unasyn, will plan CBC in AM, continue affected extremity elevation above heart when seated and in bed, monitor erythema outline with VS checks. PT/OT/CM consultations for discharge planning, needs to have facility options to CM for further planning. CM will need to give patient a list of options in the [place] region as patient is interested in transitioning more near her family. #2. Right shoulder pain: Patient with onset right shoulder pain following lifting by EMS upon transition to cot. Patient with mild decreased range of motion secondary to pain with activities but also continuously. Plain film obtained and some concern for rotator cuff tear. Will request orthopedic surgery evaluation to ascertain if any further imaging necessary and for follow-up. #3. Failure to thrive, debility, generalized weakness secondary to recent thoracic spinal surgery with chronic neuropathic pain: Patient status post recent thoracic laminectomy and fusion 12/03/2020 with recent discharge from TCU the past Monday however she is continued decline, we will continue fall precautions, continue gabapentin, PT/OT consultations for discharge planning with skilled necessity. #4. Hypertension: Continue home regimen including Norvasc, clonidine, metoprolol, PRN hydralazine. #5. Hyperlipidemia: Continue home statin regimen. #6. PAF: We will continue patient home Xarelto and metoprolol regimen. #7. Morbid Obesity: Weight loss and lifestyle changes encouraged. #8. Anxiety and depression: We will continue patient home sertraline regimen. #9. Former tobacco use: Encourage continued tobacco cessation. #10. Former alcohol abuse: Encouraged continued sobriety. #11. IRIS: BiPAP nightly. #12. DVT prophylaxis: SCDs, continue patient home Xarelto regimen. #12. CODE STATUS: Full code. Charges/Coding Visit Charges Inpatient E&M: 82995 Subs Hosp L2
[2021-01-07 06:51] LABS: ALB/GLOB Ratio 0.6 RATIO (0.9-2.4); AST(SGOT) 21 U/L (15-37); Alanine Aminotransfer ALT/SGPT 29 U/L (13-56); Albumin, Serum 2.4 g/dL (3.2-5.0); Alkaline Phosphatase 78 U/L (45-117); Anion Gap 4 (5-15); BUN 11 mg/dL (7-18); BUN/Creat Ratio 18.8 RATIO (10-20); Calcium,Total 8.9 mg/dL (8.5-10.1); Chloride 102 mmol/L (98-107); Creatinine, Serum 0.58 mg/dL (0.55-1.02); EST Glomerular Filtration Rate 109 mL/min (>60); Est Glom Filt Rate - Afr Amer 132 mL/min (>60); Estimated Creatinine Clearance 51.11 ml/min; Globulin 3.8 g/dL (2.2-4.2); Glucose 116 mg/dL (74-106); Potassium 3.9 mmol/L (3.5-5.1); Protein, Total 6.2 g/dL (6.4-8.2); Sodium Level 138 mmol/L (136-145)
[2021-01-07] MEDS: oxyCODONE 5 MG Tablet 10 MG PO ×3 (07:03→21:55)
[2021-01-07] MEDS: Methocarbamol 750 MG Tablet PO ×3 (07:03→21:55)
--- NOTE | 2021-01-07 07:50 | PCS.PANDOC ---
PANDEMIC DOCUMENTATION INITIATED: Date: 09/28/2020 Time: 190
--- NOTE | 2021-01-07 10:01 | RAD_ITS ---
STUDY: X-RAY - RIGHT SHOULDER REASON FOR EXAM: Female, 65 years old. Shoulder pain. TECHNIQUE: 3 view(s) of the shoulder. COMPARISON: None. FINDINGS: Osteopenia. Moderate arthrosis of the glenohumeral joint with osteophyte formation. Mild arthrosis of the AC joint. Normal acromion. Superior migration of the humerus which resides under the acromion and may be secondary to rotator cuff tear. The soft tissue structures are unremarkable. Normal visualized pulmonary apex. RAD/Shoulder min 2 Views IMPRESSION: Osteopenia with osteoarthritic changes of the glenohumeral and acromioclavicular joints. Radiographic findings compatible with rotator cuff tear. No acute finding. Electronically Signed: Donovan Petty MD at 10:50 EST , Service support ,
[2021-01-07] MEDS: Senna Tablet 2 TABLET PO ×2 (11:13→21:55)
[2021-01-07] MEDS: Metoprolol Tartrate 25 MG Tablet PO ×2 (11:13→21:47)
[2021-01-07] MEDS: Potassium Chloride Oral Tablet 20 MEQ PO (11:14)
[2021-01-07] MEDS: cloNIDine HCl 0.1 MG Tablet PO ×2 (11:14→21:54)
[2021-01-07] MEDS: amLODIPine 10 MG Tablet PO (11:14)
[2021-01-07] MEDS: Cholecalciferol (VIT D3) 25 MCG TABLET (1,000 UNITS) 50 MCG PO (11:14)
[2021-01-07] MEDS: Gabapentin 300 MG Capsule PO ×2 (11:15→21:55)
[2021-01-07] MEDS: Sertraline 100 MG Tablet PO (11:15)
[2021-01-07] MEDS: Menthol/Lanolin/Calamine/Znox 113 GM Tube 1 APPLIC TOPICAL ×2 (11:19→21:47)
[2021-01-07] MEDS: Rivaroxaban 20 MG Tablet PO (16:51)
[2021-01-07 21:42] LABS: M R Staph aureus DNA By PCR Negative (Negative); Probe Check PASS; Specimen Processing Control PASS
[2021-01-07] MEDS: Psyllium 1 PACKET PO (21:54)
[2021-01-07] MEDS: Atorvastatin Calcium 10 MG Tablet PO (21:55)
[2021-01-08] VITALS (7 sets, daily range): BP systolic 118–147; BP diastolic 65–77; PULSE 79–88; RESP 16–18; TEMP 36.6–37.4; O2SAT 92–96
[2021-01-08] MEDS: Acetaminophen 500 MG Tablet 1000 MG PO (02:14)
[2021-01-08] MEDS: Psyllium 1 PACKET PO ×3 (05:55→23:02)
[2021-01-08] MEDS: oxyCODONE 5 MG Tablet 10 MG PO ×3 (05:55→23:02)
[2021-01-08] MEDS: Methocarbamol 750 MG Tablet PO ×3 (05:56→23:03)
[2021-01-08] MEDS: 0.9% Saline Lock 10 ML Syringe IV (05:57)
[2021-01-08 06:01] LABS: Absolute Lymphocyte Count 1.24 X10^3/uL (0.83-4.51); Absolute Neutrophil Count 6.7 X10^3/uL (2.0-7.7); Basophil# 0.05 X10^3/uL; Basophil% 0.5 % (0-1); Eosinophil# 0.31 X10^3/uL; Eosinophils% 3.4 % (0-5); Hematocrit 29.6 % (37-47); Hemoglobin 9.4 g/dL (12.0-15.0); Lymphocyte # 1.24 X10^3/ul (0.83-4.51); Lymphocyte % 13.5 % (19-41); Mean Corp Hgb Conc 31.8 g/dL (32-36); Mean Corpuscular Hgb 27.1 pg (27.0-32.0); Mean Corpuscular Volume 85.3 fL (81-99); Mean Platelet Vol. 9.3 fl (6.2-12.0); Monocyte# 0.84 X10^3/uL; Monocyte% 9.2 % (0-10); NRBC Flagged by Analyzer 0 % (0-5); Platelet Count 383 K/mm3 (150-450); RBC Distribution Width CV 14.5 % (11.6-14.6); RBC Distribution Width SD 44.8 fl (35.1-43.9); Red Blood Count 3.47 M/mm3 (4.2-5.4); White Blood Count 9.2 K/mm3 (4.4-11.0)
[2021-01-08 06:18] LABS: ALB/GLOB Ratio 0.6 RATIO (0.9-2.4); AST(SGOT) 15 U/L (15-37); Alanine Aminotransfer ALT/SGPT 23 U/L (13-56); Albumin, Serum 2.3 g/dL (3.2-5.0); Alkaline Phosphatase 78 U/L (45-117); Anion Gap 4 (5-15); BUN 9 mg/dL (7-18); BUN/Creat Ratio 15.5 RATIO (10-20); Calcium,Total 8.8 mg/dL (8.5-10.1); Chloride 101 mmol/L (98-107); Creatinine, Serum 0.58 mg/dL (0.55-1.02); EST Glomerular Filtration Rate 110 mL/min (>60); Est Glom Filt Rate - Afr Amer 133 mL/min (>60); Estimated Creatinine Clearance 51.11 ml/min; Glucose 107 mg/dL (74-106); Protein, Total 6.3 g/dL (6.4-8.2); Sodium Level 136 mmol/L (136-145)
--- NOTE | 2021-01-08 06:36 | PN.HOSP_ITS ---
Subjective Subjective Patient overnight with continued complaints of right shoulder discomfort but otherwise no acute complaints currently. Discussed her with therapies and she has been very reticent to move or perform any activities. Patient was evaluated by orthopedic surgery and they feel that her injuries were likely chronic and r ecommended follow-up outpatient with them in the office. Patient then did admit that in the past she has had some right shoulder issues and shoulder injury with sometimes necessity to help her right arm up. Patient's right lower extremity she notes is not painful and the redness is completely resolved. She understands we cannot initiate skilled facility transition until she finalizes a facility which was discussed with her in case management. Patient denies fevers, chills, nausea, emesis, abdominal pain, chest pain or dyspnea. Objective Data Objective Data Vital Signs: Vital Signs Temp Pulse Resp BP Pulse Ox 99.4 F H 88 16 134/65 H 94 01/08/21 02:20 01/08/21 02:20 01/08/21 02:20 01/08/21 02:20 01/08/21 02:20 Oxygen Delivery Method Room Air Weight: 283 lb 8.231 oz Body Mass Index (BMI) 45.0 Intake & Output: Intake and Output for Last 24 Hours 01/06/21 01/07/21 01/08/21 23:59 23:59 23:59 Intake Total 1648 / 2260 1379.50 / 1379.50 412 / 412 Output Total 800 / 1100 2150 / 2150 Balance 848 / 1160 -770.50 / -770.50 412 / 412 Lab / Micro Data Result Diagrams: 01/08/21 05:27 01/08/21 05:27 Labs: Laboratory Results - last 24 hr 01/07/21 05:55: Sodium 138, Potassium 3.9, Chloride 102, Carbon Dioxide 32.0, Anion Gap 4 L, BUN 11, Creatinine 0.58, Estim Creat Clear Calc 51.11, Est GFR (MDRD) Af Amer 132, Est GFR (MDRD) Non-Af 109, BUN/Creatinine Ratio 18.8, Glu cose 116 H, Calcium 8.9, Total Bilirubin 0.30, AST 21, ALT 29, Alkaline Phosphatase 78, Total Protein 6.2 L, Albumin 2.4 L, Globulin 3.8, Albumin/Globulin Ratio 0.6 L 01/07/21 19:15: MRSA (PCR) Negative 01/08/21 05:27: WBC 9.2, RBC 3.47 L, Hgb 9.4 L, Hct 29.6 L, MCV 85.3, MCH 27.1, MCHC 31.8 L, RDW Std Deviation 44.8 H, RDW Coeff of Laila 14.5, Plt Count 383, MPV 9.3, Immature Gran % (Auto) 0.400, Neut % (Auto) 73.0 H, Lymph % (Auto) 13.5 L, [place] % (Auto) 9.2, Eos % (Auto) 3.4, Baso % (Auto) 0.5, Absolute Neuts (auto) 6.7, Absolute Lymphs (auto) 1.24, Nucleated RBC % 0 01/08/21 05:27: Sodium 136, Potassium 4.0, Chloride 101, Carbon Dioxide 31.0, Anion Gap 4 L, BUN 9, Creatinine 0.58, Estim Creat Clear Calc 51.11, Est GFR (MDRD) Af Amer 133, Est GFR (MDRD) Non-Af 110, BUN/Creatinine Ratio 15.5, Glucose 107 H, Calcium 8.8, Total Bilirubin 0.30, AST 15, ALT 23, Alkaline Phosphatase 78, Total Protein 6.3 L, Albumin 2.3 L, Globulin 4.0, Albumin/Globulin Ratio 0.6 L Radiography Diagnostic Testing: Radiology Impression Shoulder X-Ray 01/07/21 10:01 IMPRESSION: Osteopenia with osteoarthritic changes of the glenohumeral and acromioclavicular joints. Radiographic findings compatible with rotator cuff tear. No acute finding. Electronically Signed: Donovan Petty MD at 10:50 EST , Service support , Physical Exam Narrative Physical Examination: General: Awake, alert, oriented x 3 and cooperative, seated upright in the bed, no acute distress, notes some mild shoulder discomfort. Skin: Normal color, normal turgor, no icterus, no cyanosis except occasional staged ecchymoses, completely resolved right lower extremity erythema. HEENT: AT/NC, EOMI, PERRLA, MMM. Lungs: Mild diminished, greater bases, appropriate effort, no rales, ronchi or wheezing. Heart: Regular rate and rhythm; no gallop, rub audible. Abdomen: Soft, morbidly obese, NTTP, difficult to discern distention given habitus, distant normal BS. Extremities: No cyanosis, no clubbing, completely resolved right lower extremity erythema, mild bilateral nonpitting edema of the ankle region. Neurological: Patient awake, alert, oriented as noted, cognitive function intact; pupils equally reactive to light and accommodation, cranial nerves II- XII grossly normal, moving all 4 extremities, no focal deficits, strength moderately to severely global decreased. Psychiatric: Affect appears normal, no acute evidence of depressive or anxiety feelings. Assessment & Plan Assessment/Plan (1) Cellulitis of leg, right: (2) Adult failure to thrive: PLAN: The patient is a 65 y/o F w/ PMHx: PAF, Anxiety and Depression, Hx EtOH abuse, Morbid Obesity, HTN, HLD, Former tobacco use, Chronic pain syndrome, IRIS on BIPAP q HS who presents [facility] the [facility] ED on 01/05/21 with recent history of thoracic spinal surgery 12/03/2020 at the [facility] with significant decline, inability to care for self, inability to ambulate and generalized weakness with incidentally noted on presentation right lower extremity cellulit is likely ongoing for at least 1 week reportedly starting at her foot and progressively becoming more proximal. #1. RLE Acute Cellulitis: Patient admitted to medical surgical floor, maintained initially on IV Unasyn transition to Duricef with stop date 01/12/2021, will continue to trend CBC, continue extremity elevations, monitor for any recurrent erythema is currently completely resolved 01/08/2021, PT/OT/case management consultations for discharge planning with current necessity for patient to pick facility. Likely once patient picks facility precertification will be initiated and patient likely would not leave until past the weekend. #2. Right shoulder pain: Patient with onset right shoulder pain following lifting by EMS upon transition to cot. Patient with mild decreased range of motion secondary to pain with activities but also continuously. Plain film obtained and some concern for rotator cuff tear; however, discussed with orthopedic surgery who also evaluate the patient and this is likely chronic with mild exacerbation secondary recent activities. They recommended she follow-up outpatient if any further issues and avoid anything that makes it painful. #3. Failure to thrive, debility, generalized weakness secondary to recent thoracic spinal surgery with chronic neuropathic pain: Patient status post recent thoracic laminectomy and fusion 12/03/2020 with recent discharge from TCU the past Monday however she is continued decline, we will continue fall precautions, continue gabapentin, PT/OT consultations for discharge planning with skilled necessity. #4. Hypertension: Continue home regimen including Norvasc, clonidine, metoprolol, PRN hydralazine. #5. Hyperlipidemia: Continue home statin regimen. #6. PAF: We will continue patient home Xarelto and metoprolol regimen. #7. Morbid Obesity: Weight loss and lifestyle changes encouraged. #8. Anxiety and depression: We will continue patient home sertraline regimen. #9. Former tobacco use: Encourage continued tobacco cessation. #10. Former alcohol abuse: Encouraged continued sobriety. #11. IRIS: BiPAP nightly. #12. DVT prophylaxis: SCDs, continue patient home Xarelto regimen. #12. CODE STATUS: Full code. Charges/Coding Visit Charges Inpatient E&M: 66055 Subs Hosp L2
--- NOTE | 2021-01-08 08:35 | CONS.ORTHO ---
HPI Consult Data Date of Consult: 01/08/21 HPI Narrative HPI Narrative: Requesting provider: Monika Mendoza MD BARBARA KARIMI, is a 65 F [facility] she was found by a visiting nurse at her house with significant right lower extremity cellulitis. Patient had a recent back surgery performed at [facility]. She has been in and out of rehab since the surgery. She states she has had trouble caring for self at home. She was seen by the EMS in her home the date of admission 01/05/2021. When they were transferring her from her chair to the [place], EMS noted some grinding in her right shoulder. She denied antecedent pain prior to this point. She states that evening it did not hurt her. The following day, she did note significant pain in the right shoulder. She initially denied any problems with the shoulder prior, but upon further questioning does admit that she had to utilize her left arm to move her right shoulder occasionally due to weakness. Denies any prior injury or surgery to the right shoulder. Patient is right-hand dominant. She states the pain is improving somewhat over the last couple days. She states her cellulitis is much improved in her right leg since IV antibiotics were administered. She also complained of some right hand pain from an IV which is since been removed and pain is much improved. Denies fevers, chills, nausea vomiting, chest pain or shortness of breath. [facility] Medical History (Updated 01/08/21 @ 08:[address] Eric Ying, ) Alcohol abuse Anxiety Atrial fibrillation BiPAP (biphasic positive airway pressure) dependence Cellulitis COPD (chronic obstructive pulmonary disease) Debility Depression Former smoker Herpes zoster Hyperlipidemia Hypertension Irregular heart beat Murmur, cardiac Muscle spasm Neuropathic pain Osteoarthritis Osteoarthritis of knees, bilateral Pseudogout of right knee Thoracic spinal stenosis Thyroid nodule Vitamin D deficiency Home Medications amlodipine 5 mg PO DAILY 12/08/20 [History Last Taken Unknown] atorvastatin 10 mg PO DAILY@2200 12/08/20 [History Last Taken Unknown] cholecalciferol (vitamin D3) [Vitamin D3] 2,000 unit PO DAILY 12/08/20 [History Last Taken Unknown] clonidine HCl 0.1 mg PO BID 12/08/20 [History Last Taken Unknown] diclofenac sodium [Voltaren Arthritis Pain] 1 ea TOPICAL Q6H 12/08/20 [History Last Taken Unknown] sertraline 100 mg PO DAILY 12/08/20 [History Last Taken Unknown] acetaminophen 1,000 mg PO Q6H PRN PRN #0 tab 01/01/21 [Rx Last Taken Unknown] betamethasone valerate 1 applic TOPICAL BID #0 g 01/01/21 [Rx Last Taken Unknown] gabapentin 300 mg PO BID 30 Days #60 cap 01/01/21 [Rx Last Taken Unknown] methocarbamol 750 mg PO Q8H 30 Days #90 tab 01/01/21 [Rx Last Taken Unknown] metoprolol tartrate 25 mg PO BID 30 Days #60 tab 01/01/21 [Rx Last Taken Unknown] oxycodone 10 mg PO 0600,1400,2200 7 Days #42 tab 01/01/21 [Rx Last Taken Unknown] potassium chloride [Klor-Con M20] 20 meq PO DAILYCM 30 Days #30 tab 01/01/21 [Rx Last Taken Unknown] rivaroxaban [Xarelto] 20 mg PO DINNER@1700 30 Days #30 tab 01/01/21 [Rx Last Taken Unknown] sennosides [Donna-rakan] 17.2 mg PO BID 30 Days #120 tab 01/01/21 [Rx Last Taken Unknown] Allergy/AdvReac Type Severity Reaction Status Date / Time acetaminophen [From Vicodin] Allergy Anaphylaxis Verified 01/03/21 13:10 hydrocodone [From Vicodin] Allergy Anaphylaxis Verified 01/03/21 13:10 lorazepam [From Ativan] Allergy Hives Verified 05/25/18 09:41 neomycin Allergy Hives Verified 05/25/18 09:41 Surgical History History of adenoidectomy History of back surgery Hx of tonsillectomy Social History household members: family Smoking Status: Former smoker alcohol intake: never substance use type: does not use ROS ROS Narrative 10 point review of systems obtained, negative unless otherwise noted in HPI. Vital Signs Vital Signs Vital Signs: 01/07/21 10:54 01/07/21 11:13 01/07/21 12:59 Temperature 98.6 F Temperature Source Oral Pulse Rate 80 80 Respiratory Rate 18 Respiratory Effort Blood Pressure 127/50 H Blood Pressure Mean 75 Blood Pressure Source Monitor Blood Pressure Position Semi-Fowlers Blood Pressure Location Left Forearm Pulse Ox 95 95 Oxygen Delivery Method Room Air Room Air 01/07/21 14:08 01/07/21 14:09 01/07/21 20:30 Temperature 99.0 F 98.5 F Temperature Source Oral Oral Pulse Rate 74 85 Respiratory Rate 18 16 Respiratory Effort Normal Blood Pressure 130/57 H 143/65 H Blood Pressure Mean 81 91 Blood Pressure Source Monitor Monitor Blood Pressure Position Semi-Fowlers Semi-Fowlers Blood Pressure Location Left Forearm Left Arm Pulse Ox 96 94 Oxygen Delivery Method Room Air Room Air 01/07/21 21:47 01/08/21 02:20 Temperature 99.4 F H Temperature Source Oral Pulse Rate 85 88 Respiratory Rate 16 Respiratory Effort Blood Pressure 134/65 H Blood Pressure Mean 88 Blood Pressure Source Monitor Blood Pressure Position Semi-Fowlers Blood Pressure Location Left Arm Pulse Ox 94 Oxygen Delivery Method Room Air Weight Weight: 283 lb 8.231 oz Body Mass Index (BMI) 45.0 Physical Exam Narrative General -A&Ox3, NAD, appears stated age. Vital signs stable, afebrile. Respiratory -normal work of breathing, no intercostal retractions. CV -pulses regular, brisk capillary refill ?4 limbs. Abdomen-soft, nontender, nondistended. No guarding, rigidity, rebound tenderness. Musculoskeletal/neurologic-right lower extremity-cellulitic rash appears to be improved from felt marker markings. Motor sensation intact. Right upper extremity-cardinal motions of the right hand are intact. Sensation intact to light touch median/ulnar/touch in all dermatomes. Wrist flexion extension are 5/5. Elbow flexion and extension 5/5. Shoulder abduction 5/5. No pain with passive motion of the right shoulder. Positive drop arm test. Active forward flexion is less than 90 degrees. She is nontender about the right shoulder. Lab / Micro Data Result Diagrams: 01/08/21 05:27 01/08/21 05:27 Labs: Laboratory Results - last 24 hr 01/07/21 19:15: MRSA (PCR) Negative 01/08/21 05:27: WBC 9.2, RBC 3.47 L, Hgb 9.4 L, Hct 29.6 L, MCV 85.3, MCH 27.1, MCHC 31.8 L, RDW Std Deviation 44.8 H, RDW Coeff of Laila 14.5, Plt Count 383, MPV 9.3, Immature Gran % (Auto) 0.400, Neut % (Auto) 73.0 H, Lymph % (Auto) 13.5 L, [place] % (Auto) 9.2, Eos % (Auto) 3.4, Baso % (Auto) 0.5, Absolute Neuts (auto) 6.7, Absolute Lymphs (auto) 1.24, Nucleated RBC % 0 01/08/21 05:27: Sodium 136, Potassium 4.0, Chloride 101, Carbon Dioxide 31.0, Anion Gap 4 L, BUN 9, Creatinine 0.58, Estim Creat Clear Calc 51.11, Est GFR (MDRD) Af Amer 133, Est GFR (MDRD) Non-Af 110, BUN/Creatinine Ratio 15.5, Glucose 107 H, Calcium 8.8, Total Bilirubin 0.30, AST 15, ALT 23, Alkaline Phosphatase 78, Total Protein 6.3 L, Albumin 2.3 L, Globulin 4.0, Albumin/Globulin Ratio 0.6 L Radiology Impression Shoulder X-Ray 01/07/21 10:01 IMPRESSION: Osteopenia with osteoarthritic changes of the glenohumeral and acromioclavicular joints. Radiographic findings compatible with rotator cuff tear. No acute finding. 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 I reviewed x-rays obtained from 01/07/2021. I explained the diagnosis with the patient that this is secondary to years of full-thickness, massive rotator cuff deficiency. She has severe degenerative changes noted underlying the acromion with superior migration of the humeral head. I explained that this is unlikely the result of recent injury. I did explain that manipulation of her shoulder may have flared up some pre-existing cuff tear arthropathy/arthritis. I recommended initial conservative management with rest, ice, physical therapy, oral analgesics. Patient expressed understanding of this treatment plan. I explained she may be a candidate for a reverse shoulder arthroplasty in the future, however given her current medical status, I would not recommend at this time. We may consider corticosteroid injections as an outpatient if pain persists despite the above conservative management. I will sign off at this time. Thank you for this consultation. Please do not hesitate to call if any questions or concerns arise. She may follow-up with me as needed in the office upon discharge.
[2021-01-08] MEDS: Menthol/Lanolin/Calamine/Znox 113 GM Tube 1 APPLIC TOPICAL ×2 (08:59→23:05)
[2021-01-08] MEDS: Potassium Chloride Oral Tablet 20 MEQ PO (08:59)
[2021-01-08] MEDS: Metoprolol Tartrate 25 MG Tablet PO ×2 (09:00→23:03)
[2021-01-08] MEDS: Gabapentin 300 MG Capsule PO ×2 (09:00→23:03)
[2021-01-08] MEDS: cloNIDine HCl 0.1 MG Tablet PO ×2 (09:00→23:04)
[2021-01-08] MEDS: amLODIPine 10 MG Tablet PO (09:01)
[2021-01-08] MEDS: Cholecalciferol (VIT D3) 25 MCG TABLET (1,000 UNITS) 50 MCG PO (09:01)
[2021-01-08] MEDS: Sertraline 100 MG Tablet PO (09:01)
[2021-01-08] MEDS: Senna Tablet 2 TABLET PO ×2 (09:01→23:02)
[2021-01-08] MEDS: Cefadroxil 500 MG CAPSULE 1000 MG PO ×2 (10:37→23:03)
--- NOTE | 2021-01-08 10:51 | CASEMGMT ---
Social Work Note NELLY reviewed chart. Pt requesting list of SNF in [place]. SW in to speak with pt. SW provided pt with list of SNF that accept pt's insurance in [place]. Pt states that her family lives in that area and that is why she is wanting that area. Pt states she would also like a list of SNF in [facility] that accept her insurance. SW printed off SNF list in [facility] and provided list to pt. SW informed pt that she needs to pick at least three SNF soon so SNF process can be started. SW asked pt if her family had any Specific SNF in mind and pt denied. SW informed pt that this worker will be back before lunch to get three choices for SNF from pt. Pt states understanding. SW then received call from pt stated she spoke with Tata at [facility] who will be emailing pt a complete list of SNF that accept [facility]. Pt states that Tata mentioned [facility] in [place] as it is 3-4 hours of therapy a day. SW informed pt that typically rehab facilities such as [facility], pt's need to have qualifying diagnosis to qualify and this worker is not sure if pt would have qualifying diagnosis. Pt states she will review SNF list then and then call this worker back with SNF choices. Plan: SNF pending acceptance and pre-cert Tabby Omer VARNISH MIXER, LOGISTICS SUPERVISOR
--- NOTE | 2021-01-08 12:19 | CASEMGMT ---
Social Work Note Pt is requesting to speak to this worker. SW in to speak with pt. Pt states she would like this worker to try the following facilities. 1: [facility] in [facility]. 2. [facility] in [place], [place]. 3. [facility] in [place]. 4. [facility]. SW informed pt that [facility] has already told this worker that they have no beds available. SW informed pt that this worker will call the other three facilities to inquire about bed availability, etc. Pt states understanding. Pt agreeable to referral being sent to any of the above four listed SNF if any of them are willing to review referral. NELLY placed a call to [facility] in [place] and left message for admissions. NELLY placed a call to [facility] in [place] and spoke with Kina in admissions, Kina states they are not in network with pt's insurance ([employer]) and they are currently full. NELLY placed a call to [facility] and spoke with Radha in admissions, they do not accept [employer] insurance. NELLY is already aware that [facility] currently has no beds available. SW waiting to hear back from [facility] in [place]. SW to continue to follow. Tabby Omer MANAGER STARS, PIZZA HUT ASSISTANT
--- NOTE | 2021-01-08 14:32 | CASEMGMT ---
Social Work Note SW hasn't heard back from [facility] in [place]. SW in to speak with pt. SW updated pt that this worker hasn't heard back from [facility] in [place]. SW asked pt if there was a reason why she didn't want to go to [facility] since that is the only facility that has accepted pt. Pt states I thought they were last on my last. SW explained that pt is medically ready for discharge, at this time [facility] is the only SNF that is willing to accept pt. Pt agreeable to [facility]. SW placed a call to [facility], asked to be speak to admissions/who is covering for admissions. SW updated that admissions is gone for the day. SW asked if there was someone who could submit a pre-cert today and this worker was told that no one is available to submit a pre-cert for pt. NELLY in to speak with pt. NELLY updated pt that this worker called [facility], no one can submit for pre-cert today. Pt states she will need to review list and let this worker know additional choices. SW asked pt to have three more choices for SNF. Pt states understanding. SW back in to speak with pt. Pt on phone. Pt states to try [facility]. NELLY placed a call to [facility] and spoke with Henrietta. Henrietta states they do not take [employer] insurance. NELLY back to speak to pt. NELLY updated pt that this worker called [facility] and they do not take [employer] insurance. Pt states she will need to get additional choices for SNF. SW asked pt to call this worker when she has additional choices for SNF. Pt states understanding. Plan: SNF pending acceptance and pre-cert Tabby Omer CROCHET BEADER, CORPORATE ASSOCIATE
[2021-01-08] MEDS: Rivaroxaban 20 MG Tablet PO (17:14)
[2021-01-08] MEDS: Atorvastatin Calcium 10 MG Tablet PO (23:03)
[2021-01-09] MEDS: Acetaminophen 500 MG Tablet 1000 MG PO ×2 (05:26→14:19)
[2021-01-09] MEDS: Methocarbamol 750 MG Tablet PO ×3 (05:26→22:27)
[2021-01-09] MEDS: oxyCODONE 5 MG Tablet 10 MG PO ×3 (05:26→22:27)
[2021-01-09] MEDS: Psyllium 1 PACKET PO ×3 (05:26→22:26)
[2021-01-09 05:35] VITALS: BP 144/70; PULSE 73; RESP 18; TEMP 36.8; O2SAT 93
--- NOTE | 2021-01-09 06:22 | PN.HOSP_ITS ---
Subjective Subjective Patient notes significant episodes of anxiety and distress overnight with difficulty sleeping and several request to staff for frequent repositioning and presence. Discussed options and patient is amenable to increasing her Zoloft as well as nightly Vistaril which she had prior and helped her significantly. Patient right shoulder discomfort has lessened. Patient understands we are still awaiting facility choice to be able to start precertification. Encourage patient to continue therapies and movements. Patient denies fevers, chills, nausea, emesis, abdominal pain, chest pain or dyspnea. Objective Data Objective Data Vital Signs: Vital Signs Temp Pulse Resp BP Pulse Ox 98.2 F 73 18 144/70 H 93 01/09/21 05:35 01/09/21 05:35 01/09/21 05:35 01/09/21 05:35 01/09/21 05:35 Oxygen Delivery Method Room Air Weight: 279 lb 12.266 oz Body Mass Index (BMI) 45.0 Intake & Output: Intake and Output for Last 24 Hours 01/07/21 01/08/21 01/09/21 23:59 23:59 23:59 Intake Total 1379.50 / 1379.50 524 / 524 Output Total 2150 / 2150 550 / 550 300 / 300 Balance -770.50 / -770.50 -26 / -26 -300 / -300 Lab / Micro Data Result Diagrams: 01/09/21 07:00 01/09/21 07:00 Physical Exam Narrative Physical Examination: General: Awake, alert, oriented x 3 and cooperative, seated upright in the bed, no acute distress. Skin: Normal color, normal turgor, no icterus, no cyanosis except occasional staged ecchymoses, completely resolved right lower extremity erythema. HEENT: AT/NC, EOMI, PERRLA, MMM. Lungs: Mild diminished, distant breath sounds likely secondary to habitus, greater bases, appropriate effort, no rales, ronchi or wheezing. Heart: Regular rate and rhythm; no gallop, rub audible. Abdomen: Soft, morbidly obese, NTTP, difficult to discern distention given habitus, distant normal BS. Extremities: No cyanosis, no clubbing, completely resolved right lower extremity erythema, mild bilateral nonpitting edema of the ankle region. Neurological: Patient awake, alert, oriented as noted, cognitive function intact; pupils equally reactive to light and accommodation, cranial nerves II- XII grossly normal, moving all 4 extremities, no focal deficits, strength moderately to severely global decreased. Psychiatric: Affect appears normal, no acute evidence of depressive or anxiety feelings. Assessment & Plan Assessment/Plan (1) Cellulitis of leg, right: (2) Adult failure to thrive: PLAN: The patient is a 65 y/o F w/ PMHx: PAF, Anxiety and Depression, Hx EtOH abuse, Morbid Obesity, HTN, HLD, Former tobacco use, Chronic pain syndrome, IRIS on BIPAP q HS who presents to the [facility] ED on 01/05/21 with recent history of thoracic spinal surgery 12/03/2020 at the [facility] with significant decline, inability to care for self, inability to ambulate and generalized weakness with incidentally noted on presentation right lower extremity cellulitis likely ongoing for at least 1 week reportedly starting at her foot and progressively becoming more proximal. #1. RLE Acute Cellulitis: Patient admitted to medical surgical floor, maintained initially on IV Unasyn transition 01/08/2021 2 Duricef with stop date 01/12/2021, continue extremity elevations, monitor for any recurrent erythema is currently completely resolved 01/08/2021, PT/OT/case management consultations for discharge planning with current necessity for patient to pick facility. Once facility is picked will initiate precertification. #2. Right shoulder pain: Patient with onset right shoulder pain following lifting by EMS upon transition to cot. Patient with mild decreased range of motion secondary to pain with activities but also continuously. Plain film obtained and some concern for rotator cuff tear; however, discussed with orthopedic surgery who also evaluate the patient and this is likely chronic with mild exacerbation secondary recent activities. They recommended she follow-up outpatient if any further issues and avoid anything that makes it painful. #3. Failure to thrive, debility, generalized weakness secondary to recent thoracic spinal surgery with chronic neuropathic pain: Patient status post recent thoracic laminectomy and fusion 12/03/2020 with recent discharge from TCU the past Monday however she is continued decline, we will continue fall precautions, continue gabapentin, PT/OT consultations for discharge planning with skilled necessity. #4. Anxiety and depression, poorly controlled: Patient reports that she has been having issues with increased anxiety with episodes 01/08/2021 evening. Discussed her current status at length and will increase patient's sertraline which will take several weeks in addition to low-dose Vistaril scheduled which she notes was successful in assisting her immediate anxiety. Will benefit from follow-up with counseling. #5. Hypertension: Continue home regimen including Norvasc, clonidine, metoprolol, PRN hydralazine. #6. Hyperlipidemia: Continue home statin regimen. #7. PAF: We will continue patient home Xarelto and metoprolol regimen. #8. Morbid Obesity: Weight loss and lifestyle changes encouraged. #9. Former tobacco use: Encourage continued tobacco cessation. #10. Former alcohol abuse: Encouraged continued sobriety. #11. IRIS: BiPAP nightly. #12. DVT prophylaxis: SCDs, continue patient home Xarelto regimen. #12. CODE STATUS: Full code. Charges/Coding Visit Charges Inpatient E&M: 22369 Subs Hosp L2
[2021-01-09 07:32] LABS: Absolute Lymphocyte Count 1.24 X10^3/uL (0.83-4.51); Absolute Neutrophil Count 5.1 X10^3/uL (2.0-7.7); Basophil# 0.05 X10^3/uL; Basophil% 0.7 % (0-1); Eosinophil# 0.35 X10^3/uL; Eosinophils% 4.8 % (0-5); Hematocrit 31.2 % (37-47); Hemoglobin 9.9 g/dL (12.0-15.0); Lymphocyte # 1.24 X10^3/ul (0.83-4.51); Lymphocyte % 17.1 % (19-41); Mean Corp Hgb Conc 31.7 g/dL (32-36); Mean Corpuscular Hgb 27.3 pg (27.0-32.0); Mean Corpuscular Volume 86.2 fL (81-99); Mean Platelet Vol. 9.1 fl (6.2-12.0); Monocyte# 0.53 X10^3/uL; Monocyte% 7.3 % (0-10); NRBC Flagged by Analyzer 0 % (0-5); Neutrophil # 5.05 X10^3/uL (2.7-7.7); Neutrophil % 69.8 % (47-70); Platelet Count 409 K/mm3 (150-450); RBC Distribution Width CV 14.4 % (11.6-14.6); RBC Distribution Width SD 45.1 fl (35.1-43.9); Red Blood Count 3.62 M/mm3 (4.2-5.4); White Blood Count 7.2 K/mm3 (4.4-11.0)
[2021-01-09 08:16] LABS: ALB/GLOB Ratio 0.6 RATIO (0.9-2.4); AST(SGOT) 20 U/L (15-37); Alanine Aminotransfer ALT/SGPT 26 U/L (13-56); Albumin, Serum 2.4 g/dL (3.2-5.0); Alkaline Phosphatase 80 U/L (45-117); Anion Gap 4 (5-15); BUN 9 mg/dL (7-18); BUN/Creat Ratio 15.3 RATIO (10-20); Calcium,Total 9.3 mg/dL (8.5-10.1); Chloride 103 mmol/L (98-107); Creatinine, Serum 0.59 mg/dL (0.55-1.02); EST Glomerular Filtration Rate 108 mL/min (>60); Est Glom Filt Rate - Afr Amer 131 mL/min (>60); Estimated Creatinine Clearance 51.11 ml/min; Globulin 4.3 g/dL (2.2-4.2); Glucose 117 mg/dL (74-106); Potassium 4.2 mmol/L (3.5-5.1); Protein, Total 6.7 g/dL (6.4-8.2); Sodium Level 138 mmol/L (136-145)
[2021-01-09 08:37] VITALS: BP 145/68; PULSE 90; RESP 20; TEMP 36.8; O2SAT 94
[2021-01-09] MEDS: Cholecalciferol (VIT D3) 25 MCG TABLET (1,000 UNITS) 50 MCG PO (08:41)
[2021-01-09] MEDS: Gabapentin 300 MG Capsule PO ×2 (08:42→22:27)
[2021-01-09] MEDS: Senna Tablet 2 TABLET PO ×2 (08:42→22:28)
[2021-01-09] MEDS: Sertraline 100 MG Tablet PO (08:42)
[2021-01-09 08:43] VITALS: PULSE 90
[2021-01-09] MEDS: amLODIPine 10 MG Tablet PO (08:43)
[2021-01-09] MEDS: Metoprolol Tartrate 25 MG Tablet PO ×2 (08:43→22:26)
[2021-01-09] MEDS: Cefadroxil 500 MG CAPSULE 1000 MG PO ×2 (08:43→22:26)
[2021-01-09] MEDS: cloNIDine HCl 0.1 MG Tablet PO ×2 (08:44→22:25)
[2021-01-09] MEDS: Potassium Chloride Oral Tablet 20 MEQ PO (08:44)
[2021-01-09] MEDS: Menthol/Lanolin/Calamine/Znox 113 GM Tube 1 APPLIC TOPICAL ×2 (08:45→22:30)
[2021-01-09 14:20] VITALS: BP 164/65; PULSE 79; RESP 18; TEMP 36.3; O2SAT 98
[2021-01-09] MEDS: Rivaroxaban 20 MG Tablet PO (17:35)
[2021-01-09 22:17] VITALS: BP 150/87; PULSE 75; RESP 20; TEMP 36.3; O2SAT 93
[2021-01-09 22:26] VITALS: BP 150/87; PULSE 75
[2021-01-09] MEDS: Atorvastatin Calcium 10 MG Tablet PO (22:26)
[2021-01-09] MEDS: hydrOXYzine PAM 25 MG Capsule PO (22:29)
[2021-01-10 03:24] VITALS: BP 142/72; PULSE 71; RESP 18; TEMP 36.7; O2SAT 96
[2021-01-10] MEDS: Acetaminophen 500 MG Tablet 1000 MG PO ×2 (03:32→14:31)
--- NOTE | 2021-01-10 06:07 | PN.HOSP_ITS ---
Subjective Subjective Patient with no acute events overnight per discussion with patient and nursing. Patient does continue to take a lot of the staff's time with several various requests including repositioning and reported that overnight she did sleep and had less anxiety with addition of low-dose Vistaril x1 but had onset at 4 AM of restless legs. Discussed options and she is amenable to trial of also Requip. Patient denies fevers, chills, nausea, emesis, abdominal pain, chest pain or dyspnea. Objective Data Objective Data Vital Signs: Vital Signs Temp Pulse Resp BP Pulse Ox 98.1 F 71 18 142/72 H 96 01/10/21 03:24 01/10/21 03:24 01/10/21 03:24 01/10/21 03:24 01/10/21 03:24 Oxygen Delivery Method Room Air Weight: 281 lb 4.957 oz Body Mass Index (BMI) 45.0 Intake & Output: Intake and Output for Last 24 Hours 01/08/21 01/09/21 01/10/21 23:59 23:59 23:59 Intake Total 524 / 524 Output Total 550 / 550 1500 / 1500 Balance -26 / -26 -1500 / -1500 Lab / Micro Data Result Diagrams: 01/09/21 07:00 01/09/21 07:00 Labs: Laboratory Results - last 24 hr 01/09/21 07:00: WBC 7.2, RBC 3.62 L, Hgb 9.9 L, Hct 31.2 L, MCV 86.2, MCH 27.3, MCHC 31.7 L, RDW Std Deviation 45.1 H, RDW Coeff of Laila 14.4, Plt Count 409, MPV 9.1, Immature Gran % (Auto) 0.300, Neut % (Auto) 69.8, Lymph % (Auto) 17.1 L, Thayer % (Auto) 7.3, Eos % (Auto) 4.8, Baso % (Auto) 0.7, Absolute Neuts (auto) 5.1, Absolute Lymphs (auto) 1.24, Nucleated RBC % 0 01/09/21 07:00: Sodium 138, Potassium 4.2, Chloride 103, Carbon Dioxide 31.0, Anion Gap 4 L, BUN 9, Creatinine 0.59, Estim Creat Clear Calc 51.11, Est GFR (MDRD) Af Amer 131, Est GFR (MDRD) Non-Af 108, BUN/Creatinine Ratio 15.3, Glucose 117 H, Calcium 9.3, Total Bilirubin 0.30, AST 20, ALT 26, Alkaline Ph osphatase 80, Total Protein 6.7, Albumin 2.4 L, Globulin 4.3 H, Albumin/Globulin Ratio 0.6 L Physical Exam Narrative Physical Examination: General: Awake, alert, oriented x 3 and cooperative, seated upright in the bed, no acute distress. Skin: Normal color, normal turgor, no icterus, no cyanosis except occasional staged ecchymoses, completely resolved right lower extremity erythema. HEENT: AT/NC, EOMI, PERRLA, MMM. Lungs: Diminished, mildly distant likely secondary to habitus, improved effort, no rales, ronchi or wheezing. Heart: Regular rate and rhythm; no gallop, rub audible. Abdomen: Soft, morbidly obese, NTTP, difficult to discern distention given habitus, distant normal BS. Extremities: No cyanosis, no clubbing, completely resolved right lower extremity erythema, mild bilateral nonpitting edema of the ankle region. Neurological: Patient awake, alert, oriented as noted, cognitive function intact; pupils equally reactive to light and accommodation, cranial nerves II- XII grossly normal, moving all 4 extremities, no focal deficits, strength moderately to severely global decreased. Psychiatric: Affect appears normal, reports anxiety but no acute evidence of depressive or anxiety feelings. Assessment & Plan Assessment/Plan (1) Cellulitis of leg, right: (2) Adult failure to thrive: PLAN: The patient is a 65 y/o F w/ PMHx: PAF, Anxiety and Depression, Hx EtOH abuse, Morbid Obesity, HTN, HLD, Former tobacco use, Chronic pain syndrome, IRIS on BIPAP q HS who presents to the [facility] ED on 01/05/21 with recent history of thoracic spinal surgery 12/03/2020 at the [facility] with significant decline, inability to care for self, inability to ambulate and generalized weakness with incidentally noted on presentation right lower extremity cellulitis likely ongoing for at least 1 week reportedly starting at her foot and progressively becoming more proximal. #1. RLE Acute Cellulitis: Patient admitted to medical surgical floor, maintain ed initially on IV Unasyn transition 01/08/2021 2 Duricef with stop date 01/12/2021, continue extremity elevations, monitor for any recurrent erythema is currently completely resolved 01/08/2021, PT/OT/case management consultations for discharge planning with current necessity for patient to pick facility. From discussion with patient and staff there is no isolated facility of choice yet as patient did have a couple but these are not an option. Unable to even start precertification until we have a facility. #2. Right shoulder pain: Patient with onset right shoulder pain following lifting by EMS upon transition to cot. Patient with mild decreased range of motion secondary to pain with activities but also continuously. Plain film obtained and some concern for rotator cuff tear; however, discussed with orthopedic surgery who also evaluate the patient and this is likely chronic with mild exacerbation secondary recent activities. They recommended she follow-up outpatient if any further issues and avoid anything that makes it painful. #3. Failure to thrive, debility, generalized weakness secondary to recent thoracic spinal surgery with chronic neuropathic pain: Patient status post recent thoracic laminectomy and fusion 12/03/2020 with recent discharge from TCU the past Monday however she is continued decline suspected in large part as patient is very reticent to perform activities, we will continue fall precautions, continue gabapentin, as noted above awaiting choice of skilled facility to initiate precertification. #4. Anxiety and depression, poorly controlled: Patient reports that she has been having issues with increased anxiety with episodes 01/08/2021 evening. Discussed her current status at length and already increased her sertraline regimen which may need to be increased further in the next several weeks depending on response, added low-dose nightly Vistaril and as noted because of her restless leg complaints will also add a nightly Requip. Discussed benefits of counseling in addition to treatment with medications. #5. Hypertension: Continue home regimen including Norvasc, clonidine, metoprolol, PRN hydralazine. #6. Hyperlipidemia: Continue home statin regimen. #7. PAF: We will continue patient home Xarelto and metoprolol regimen. #8. Morbid Obesity: Weight loss and lifestyle changes encouraged. #9. Former tobacco use: Encourage continued tobacco cessation. #10. Former alcohol abuse: Encouraged continued sobriety. #11. IRIS: BiPAP nightly. #12. DVT prophylaxis: SCDs, continue patient home Xarelto regimen. #12. CODE STATUS: Full code. Charges/Coding Visit Charges Inpatient E&M: 08206 Subs Hosp L2
[2021-01-10] MEDS: oxyCODONE 5 MG Tablet 10 MG PO ×3 (06:21→22:34)
[2021-01-10] MEDS: Methocarbamol 750 MG Tablet PO ×3 (06:22→22:35)
[2021-01-10] MEDS: Psyllium 1 PACKET PO ×3 (06:22→22:37)
[2021-01-10 08:20] VITALS: BP 121/70; PULSE 81; RESP 16; TEMP 36.8; O2SAT 92
[2021-01-10] MEDS: Menthol/Lanolin/Calamine/Znox 113 GM Tube 1 APPLIC TOPICAL ×2 (08:36→22:34)
[2021-01-10] MEDS: 0.9% Saline Lock 10 ML Syringe IV (08:36)
[2021-01-10 08:37] VITALS: PULSE 81
[2021-01-10] MEDS: Cefadroxil 500 MG CAPSULE 1000 MG PO ×2 (08:37→22:35)
[2021-01-10] MEDS: Metoprolol Tartrate 25 MG Tablet PO ×2 (08:37→22:36)
[2021-01-10] MEDS: Sertraline 100 MG Tablet 150 MG PO (08:38)
[2021-01-10] MEDS: amLODIPine 10 MG Tablet PO (08:38)
[2021-01-10] MEDS: cloNIDine HCl 0.1 MG Tablet PO ×2 (08:38→22:35)
[2021-01-10] MEDS: Gabapentin 300 MG Capsule PO ×2 (08:38→22:35)
[2021-01-10] MEDS: Senna Tablet 2 TABLET PO ×2 (08:38→22:36)
[2021-01-10] MEDS: Potassium Chloride Oral Tablet 20 MEQ PO (08:39)
[2021-01-10] MEDS: Cholecalciferol (VIT D3) 25 MCG TABLET (1,000 UNITS) 50 MCG PO (08:39)
[2021-01-10 14:30] VITALS: BP 122/63; PULSE 80; RESP 16; TEMP 36.9; O2SAT 94
[2021-01-10] MEDS: Rivaroxaban 20 MG Tablet PO (17:56)
[2021-01-10 20:14] VITALS: BP 137/47; PULSE 77; RESP 18; TEMP 36.9; O2SAT 94
[2021-01-10] MEDS: Pramipexole Di-HCl 0.25 MG Tablet PO (22:34)
[2021-01-10 22:36] VITALS: BP 137/47; PULSE 77
[2021-01-10] MEDS: hydrOXYzine PAM 25 MG Capsule PO (22:36)
[2021-01-10] MEDS: Atorvastatin Calcium 10 MG Tablet PO (22:36)
[2021-01-11] VITALS (7 sets, daily range): BP systolic 114–158; BP diastolic 56–92; PULSE 65–89; RESP 18; TEMP 36.4–37.1; O2SAT 94–98
[2021-01-11] MEDS: Psyllium 1 PACKET PO (05:49)
[2021-01-11] MEDS: Methocarbamol 750 MG Tablet PO ×3 (05:49→19:19)
[2021-01-11] MEDS: oxyCODONE 5 MG Tablet 10 MG PO ×3 (05:50→19:26)
--- NOTE | 2021-01-11 06:31 | PN.HOSP_ITS ---
Subjective Subjective Patient with no acute events overnight per self or per nursing report. Patient does note that her right knee aches today but otherwise no acute complaints. She does state that she slept better however she did have onset again of restless legs at approximately 3-4 in the morning. Discussed options and patient was a menable to increase in the dosage and potentially stretching this medication timeline. Patient understands that currently she is only awaiting a skilled facility placement with precertification ongoing. Patient denies fevers, chills, nausea, emesis, abdominal pain, chest pain or dyspnea. Objective Data Objective Data Vital Signs: Vital Signs Temp Pulse Resp BP Pulse Ox 98.1 F 66 18 127/56 H 96 01/11/21 04:28 01/11/21 04:28 01/11/21 04:28 01/11/21 04:28 01/11/21 04:28 Oxygen Delivery Method Room Air Weight: 282 lb 13.649 oz Body Mass Index (BMI) 45.0 Intake & Output: Intake and Output for Last 24 Hours 01/09/21 01/10/21 01/11/21 23:59 23:59 23:59 Intake Total 1000 / 1300 300 / 300 Output Total 1500 / 1500 2900 / 3200 300 / 300 Balance -1500 / -1500 -1900 / -1900 0 / 0 Lab / Micro Data Result Diagrams: 01/09/21 07:00 01/09/21 07:00 Physical Exam Narrative Physical Examination: General: Awake, alert, oriented x 3 and cooperative, seated upright in the bed, no acute distress. Skin: Normal color, normal turgor, no icterus, no cyanosis except occasional staged ecchymoses, completely resolved right lower extremity erythema. HEENT: AT/NC, EOMI, PERRLA, MMM. Lungs: Diminished, mildly distant likely secondary to habitus, improved effort, no rales, ronchi or wheezing. Heart: Regular rate and rhythm; no gallop, rub audible. Abdomen: Soft, morbidly obese, NTTP, difficult to discern distention given habitus, distant normal BS. Extremities: No cyanosis, no clubbing, completely resolved right lower extremity erythema, mild bilateral nonpitting edema of the ankle region. Neurological: Patient awake, alert, oriented as noted, cognitive function intact; pupils equally reactive to light and accommodation, cranial nerves II- XII grossly normal, moving all 4 extremities, no focal deficits, strength moderately to severely global decreased. Psychiatric: Affect appears normal, no acute evidence of depressive or anxiety feelings. Assessment & Plan Assessment/Plan (1) Cellulitis of leg, right: (2) Adult failure to thrive: PLAN: The patient is a 65 y/o F w/ PMHx: PAF, Anxiety and Depression, Hx EtOH abuse, Morbid Obesity, HTN, HLD, Former tobacco use, Chronic pain syndrome, IRIS on BIPAP q HS who presents to the [facility] ED on 01/05/21 with recent history of thoracic spinal surgery 12/03/2020 at the [facility] with significant decline, inability to care for self, inability to ambulate and generalized weakness with incidentally noted on presentation right lower extremity cellulitis likely ongoing for at least 1 week reportedly starting at her foot and progressively becoming more proximal. #1. RLE Acute Cellulitis: Patient admitted to medical surgical floor, maintained initially on IV Unasyn transition 01/08/2021 2 Duricef with stop date 01/12/2021, continue extremity elevations, monitor for any recurrent erythema is currently completely resolved 01/08/2021, PT/OT/case management consultations for discharge planning with current necessity for patient to pick facility. From discussion with patient and staff there is no isolated facility of choice yet as patient did have a couple but these are not an option. 01/11/2021 [place] facility precertification pending. Will transfer once insurance approval obtained. #2. Right shoulder pain: Patient with onset right shoulder pain following lifting by EMS upon transition to cot. Patient with mild decreased range of motion secondary to pain with activities but also continuously. Plain film obtained and some concern for rotator cuff tear; however, discussed with orthopedic surgery who also evaluate the patient and this is likely chronic with mild exacerbation secondary recent activities. They recommended she follow-up outpatient if any further issues and avoid anything that makes it painful. #3. Failure to thrive, debility, generalized weakness secondary to recent thoracic spinal surgery with chronic neuropathic pain: Patient status post recent thoracic laminectomy and fusion 12/03/2020 with recent discharge from TCU the past Monday however she is continued decline suspected in large part as patient is very reticent to perform activities, we will continue fall precautions, continue gabapentin, as noted above awaiting choice of skilled facility to initiate precertification. #4. Anxiety and depression, poorly controlled: Patient reports that she has been having issues with increased anxiety with episodes 01/08/2021 evening. Increased patient sertraline regimen and added low-dose nightly Vistaril. Patient will need to follow-up outpatient for counseling. #5. Hypertension: Continue home regimen including Norvasc, clonidine, metoprolol, PRN hydralazine. #6. Hyperlipidemia: Continue home statin regimen. #7. PAF: We will continue patient home Xarelto and metoprolol regimen. #8. Morbid Obesity: Weight loss and lifestyle changes encouraged. #9. Former tobacco use: Encourage continued tobacco cessation. #10. Former alcohol abuse: Encouraged continued sobriety. #11. IRIS: BiPAP nightly. #12. Restless leg syndrome: We will increase patient regimen of Requip that was initially administered 01/10/2021. #13. DVT prophylaxis: SCDs, continue patient home Xarelto regimen. #14. CODE STATUS: Full code. Charges/Coding Visit Charges Inpatient E&M: 98753 Subs Hosp L2
--- NOTE | 2021-01-11 10:25 | CASEMGMT ---
Addendum entered by Tabby Omer 01/11/21 15:05: SW received message from Kathy at [facility] stating they do not accept pt's insurance and they have no beds available. SW in to speak with pt. SW updated pt that [facility] doesn't take pt's insurance and they have no beds available. Pt states she heard about [facility]? SW informed pt that insurance process as already been started with [facility]. SW explained that if pt gets to [facility] and she doesn't like it there pt can request new SNF. SW explained to pt that she is medically ready for discharge and this worker will let her know when pre-cert for [facility] is obtained. Pt states understanding. Plan: [facility] skilled pending pre-cert Original Note: Social Work Note SW in to speak with pt. Pt states she would like this worker to call [facility] to inquire if they take pt's insurance and if they have beds available. SW explained that this worker really needs to start insurance process and at this time, [facility] is the only SNF that has accepted pt. Pt agreeable to pre-cert being started with [facility] but again asked this worker if this worker could call [facility] to inquire about insurance and bed availability. SW placed a call to [facility] and left message for Trudy in admissions to start pre-cert. NELLY placed a call to [facility] and left message for Kathy in admissions regarding pt's insurance and bed availability. SW faxed updated clinicals to [facility]. Plan: [facility] skilled pending pre-cert Tabby Omer [employer], [employer]
[2021-01-11] MEDS: Acetaminophen 500 MG Tablet 1000 MG PO (10:42)
[2021-01-11] MEDS: Menthol/Lanolin/Calamine/Znox 113 GM Tube 1 APPLIC TOPICAL (10:48)
[2021-01-11] MEDS: amLODIPine 10 MG Tablet PO (10:49)
[2021-01-11] MEDS: Cefadroxil 500 MG CAPSULE 1000 MG PO ×2 (10:49→19:19)
[2021-01-11] MEDS: Senna Tablet 2 TABLET PO (10:50)
[2021-01-11] MEDS: Gabapentin 300 MG Capsule PO ×2 (10:50→19:21)
[2021-01-11] MEDS: Cholecalciferol (VIT D3) 25 MCG TABLET (1,000 UNITS) 50 MCG PO (10:50)
[2021-01-11] MEDS: Sertraline 100 MG Tablet 150 MG PO (10:51)
[2021-01-11] MEDS: cloNIDine HCl 0.1 MG Tablet PO ×2 (10:51→19:19)
[2021-01-11] MEDS: Metoprolol Tartrate 25 MG Tablet PO (10:51)
[2021-01-11] MEDS: Potassium Chloride Oral Tablet 20 MEQ PO (10:52)
--- NOTE | 2021-01-11 16:43 | TREXTCAR_ITS ---
Diet 01/05/21 14:35 Diet: Cardiac - Heart Healthy Food consistency:: Regular Liquid Consistency:: Regular/Thin Type of Dietary Supplement:: 120 ml ensure enlive tid Diet Comments: Extra 1-2 oz protein at meals. DISCHARGE DIAGNOSES: #1. RLE Acute Cellulitis #2. Right shoulder pain, Chronic with rotator cuff tear #3. Failure to thrive, debility, generalized weakness secondary to recent thoracic spinal surgery with chronic neuropathic pain #4. Anxiety and depression, poorly controlled #5. Hypertension #6. Hyperlipidemia #7. PAF #8. Morbid Obesity #9. Former tobacco use #10. Former alcohol abuse #11. IRIS on qHS BiPAP nightly #12. Restless leg syndrome #13. CODE STATUS: Full code. Routine Orders/Code Status Enema Type: Fleetz Enema Frequency: Daily PRN Suppository Type: Dulcolax 10mg Suppository Frequency: Daily PRN Keep PO Greater than or Equal to (%): 92 Routine Lab Work: - (Repeat CBC and BMP per facility discretion or within 1 wee k.) Code Status: Full Code Wound(s) left inner buttock: Wound Type: shear vs. pressure right inner buttock: Wound Type: shear vs. pressure Suggestions for Active Care Change Position every (hours): 2 Hours to sit in a chair: 4 Times a day to sit in chair: 3 Therapies Weight Bearing: Full weight bearing Extremity Affected:: Bilateral Lower Physical Therapy: Eval and Treat Occupational Therapy: Eval and Treat Problem/Diagnosis (1) Cellulitis of leg, right: Status: Acute (2) Adult failure to thrive: Status: Acute Allergies/Procedures Done in Hospital Allergies hydrocodone [From Vicodin] Allergy (Verified 01/03/21 13:10) Anaphylaxis lorazepam [From Ativan] Allergy (Verified 05/25/18 09:41) Hives neomycin Allergy (Verified 05/25/18 09:41) Hives Procedures: EKG Type of Care/Length of Stay Estimated LOS: Convalescent Care Less Than 30 days Type of Care Needed: Skilled Rehab Potential: Fair Prognosis: Fair Additional Orders/Day of Discharge Additional Orders: (1) Maintain fall precautions, (2) IS 10x/hr 7a-7p, (3) Fall precautions, (4) MUST be OOB to chair for all meals. Day of Discharge: 01/11/21 Dietary and Speech Recommendations Dietitian Recommendations/Changes: Continue Cardiac diet- will continue to provide extra ounce of protein at meals to promote would healing. Provide 120 ml ensure enlive w/ meals for increased nutrition if consumed. Discharge Plan Admission Admit Date/Time: 01/05/21 13:02 Primary Reason for Your Visit: RLE cellulitis, FTT Adult Attending Provider: Monika Mendoza Consulting Providers: Eric Ying Discharge Orders/Prescriptions Prescriptions: New cefadroxil 500 mg Capsule 1,000 mg PO BID 2 Days Qty: 8 RF: 0 pramipexole 0.25 mg Tablet 0.25 mg PO QHS 30 Days Qty: 30 RF: 0 hydroxyzine pamoate 25 mg Capsule 25 mg PO QHS 30 Days Qty: 30 RF: 0 Continued diclofenac sodium [Voltaren Arthritis Pain] 1 % Gel 1 ea TOPICAL Q6H RF: 0 clonidine HCl 0.1 MG tablet 0.1 mg PO BID RF: 0 atorvastatin 10 MG tablet 10 mg PO DAILY@2200 RF: 0 sertraline 100 MG tablet 100 mg PO DAILY RF: 0 amlodipine 5 MG tablet 5 mg PO DAILY RF: 0 cholecalciferol (vitamin D3) [Vitamin D3] 1,000 UNIT tablet 2,000 unit PO DAILY RF: 0 acetaminophen 500 mg Tablet 1,000 mg PO Q6H PRN PRN (Reason: Pain Score 1-10) Qty: 0 RF: 0 sennosides [Donna-rakan] 8.6 mg Tablet 17.2 mg PO BID 30 Days Qty: 120 RF: 0 potassium chloride [Klor-Con M20] 20 mEq Tablet,Er Particles/Crystals 20 meq PO DAILYCM 30 Days Qty: 30 RF: 0 betamethasone valerate 0.1 % Cream 1 applic topical BID Qty: 0 RF: 0 metoprolol tartrate 25 mg Tablet 25 mg PO BID 30 Days Qty: 60 RF: 0 Xarelto 20 mg Tablet 20 mg PO DINNER@1700 30 Days Qty: 30 RF: 0 methocarbamol 750 mg Tablet 750 mg PO Q8H 30 Days Qty: 90 RF: 0 gabapentin 300 MG capsule 300 mg PO BID 30 Days Qty: 60 RF: 0 oxycodone 5 mg Tablet 10 mg PO 0600,1400,2200 5 Days Qty: 30 RF: 0 Referrals / Follow Up: Habjan,Gisela F [Other] (Follow-up within 1-2 weeks discharge from hospital as well as within 1-2 days of SNF discharge.) Gisela Metcalf [Other] Eric Ying DO [STAFF PHYSICIAN] - (Follow-up as needed if ongoing R shoulder discomfort.) Disposition Disposition (needs filled in before D/C Order can be placed): Assisted Facility
--- NOTE | 2021-01-11 16:45 | DS.PCM_ITS ---
Providers Date of Admission: 01/05/21 Primary Care Physician: Gisela Metcalf Consultations 01/07/21 11:37 Consult: Orthopedics Routine Consulting Provider: Eric Ying Reason for Consult: R shoulder pain, occured after EMS getting her up, plaim film w/ ? RC tear EMERGENT Consult: No MD Notified: Yes Date Notified: 01/07/21 Time Notified: 11:37 Method of Notification: Text Reason For Visit: FAILURE TO THRIVE Diagnosis Discharge Diagnosis (1) Cellulitis of leg, right: Status: Acute Code(s): L03.115 - Cellulitis of right lower limb (2) Adult failure to thrive: Status: Acute Code(s): R62.7 - Adult failure to thrive Medications at Discharge Home Medications amlodipine 5 mg PO DAILY 12/08/20 atorvastatin 10 mg PO DAILY@2200 12/08/20 cholecalciferol (vitamin D3) [Vitamin D3] 2,000 unit PO DAILY 12/08/20 clonidine HCl 0.1 mg PO BID 12/08/20 diclofenac sodium [Voltaren Arthritis Pain] 1 ea TOPICAL Q6H 12/08/20 sertraline 100 mg PO DAILY 12/08/20 Xarelto 20 mg PO DINNER@1700 30 Days #30 tab 01/01/21 acetaminophen 1,000 mg PO Q6H PRN PRN #0 tab 01/01/21 betamethasone valerate 1 applic TOPICAL BID #0 g 01/01/21 gabapentin 300 mg PO BID 30 Days #60 cap 01/01/21 methocarbamol 750 mg PO Q8H 30 Days #90 tab 01/01/21 metoprolol tartrate 25 mg PO BID 30 Days #60 tab 01/01/21 potassium chloride [Klor-Con M20] 20 meq PO DAILYCM 30 Days #30 tab 01/01/21 sennosides [Donna-rakan] 17.2 mg PO BID 30 Days #120 tab 01/01/21 cefadroxil 1,000 mg PO BID 2 Days #8 cap 01/11/21 hydroxyzine pamoate 25 mg PO QHS 30 Days #30 cap 01/11/21 oxycodone 10 mg PO 0600,1400,2200 5 Days #30 tab 01/11/21 pramipexole 0.25 mg PO QHS 30 Days #30 tab 01/11/21 Hospital Course Operations None Procedures EKG Summary of Care Provided Minutes Spent on Discharge: 35 Hospital Course: DISCHARGE NOTE: Discharge Diagnoses: #1. RLE Acute Cellulitis #2. Right shoulder pain, Chronic with rotator cuff tear #3. Failure to thrive, debility, generalized weakness secondary to recent thoracic spinal surgery with chronic neuropathic pain #4. Anxiety and depression, poorly controlled #5. Hypertension #6. Hyperlipidemia #7. PAF #8. Morbid Obesity #9. Former tobacco use #10. Former alcohol abuse #11. IRIS on qHS BiPAP nightly #12. Restless leg syndrome #13. CODE STATUS: Full code. Discharge Summary: The patient is a 65 y/o F w/ PMHx: PAF, Anxiety and Depression, Hx EtOH abuse, Morbid Obesity, HTN, HLD, Former tobacco use, Chronic pain syndrome, IRIS on BIPAP q HS who presented to the [facility] ED on 01/05/21 with recent history of thoracic spinal surgery 12/03/2020 at the [facility] with significant decline, inability to care for self, inability to ambulate and generalized weakness with incidentally noted on presentation right lower extremity cellulitis likely ongoing for at least 1 week reportedly starting at her foot and progressively becoming more proximal. Patient admitted to medical surgical floor, maintained initially on IV Unasyn transition 01/08/2021 2 Duricef with stop date 01/12/2021, continue extremity elevations, monitor for any recurrent erythema is currently completely resolved 01/08/2021. Patient with onset right shoulder pain following lifting by EMS upon transition to cot. Emiliano richey with mild decreased range of motion secondary to pain with activities but also continuously. Plain film obtained and some concern for rotator cuff tear; however, discussed with orthopedic surgery who also evaluate the patient and this is likely chronic with mild exacerbation secondary recent activities. They recommended she follow-up outpatient if any further issues and avoid anything that makes it painful. Patient reported that she has been having issues with increased anxiety with episodes 01/08/2021 evening. Increased patient sertraline regimen and added low-dose nightly Vistaril. Patient recommended to follow-up with outpatient for counseling. During admission patient also complained several times of restless legs therefore she was started on Requip with some improvement. Patient of note status post recent thoracic laminectomy and fusion 12/03/2020 with recent discharge from TCU the past Monday however she is continued decline suspected in large part as patient is very reticent to perform activities, continued on gabapentin and chronic pain regimen. PT and OT assessment as well as case management with eventual placement to skilled facility once patient decided although she did take several days to pick facility options. Discharge Time: > 35 Minutes Weight / BMI Weight Weight: 282 lb 13.649 oz Body Mass Index (BMI) 45.0 ABG / Lab / Microbiology Data Result Diagrams: 01/09/21 07:00 01/09/21 07:00 Meaningful Use Info Meaningful Use Diagnoses (Choose all that apply): None applicable Discharge Plan Admission Admit Date/Time: 01/05/21 13:02 Primary Reason for Your Visit: RLE cellulitis, FTT Adult Attending Provider: Monika Mendoza Consulting Providers: Eric Ying Discharge Orders/Prescriptions Prescriptions: New cefadroxil 500 mg Capsule 1,000 mg PO BID 2 Days Qty: 8 RF: 0 pramipexole 0.25 mg Tablet 0.25 mg PO QHS 30 Days Qty: 30 RF: 0 hydroxyzine pamoate 25 mg Capsule 25 mg PO QHS 30 Days Qty: 30 RF: 0 Continued diclofenac sodium [Voltaren Arthritis Pain] 1 % Gel 1 ea TOPICAL Q6H RF: 0 clonidine HCl 0.1 MG tablet 0.1 mg PO BID RF: 0 atorvastatin 10 MG tablet 10 mg PO DAILY@2200 RF: 0 sertraline 100 MG tablet 100 mg PO DAILY RF: 0 amlodipine 5 MG tablet 5 mg PO DAILY RF: 0 cholecalciferol (vitamin D3) [Vitamin D3] 1,000 UNIT tablet 2,000 unit PO DAILY RF: 0 acetaminophen 500 mg Tablet 1,000 mg PO Q6H PRN PRN (Reason: Pain Score 1-10) Qty: 0 RF: 0 sennosides [Donna-rakan] 8.6 mg Tablet 17.2 mg PO BID 30 Days Qty: 120 RF: 0 potassium chloride [Klor-Con M20] 20 mEq Tablet,Er Particles/Crystals 20 meq PO DAILYCM 30 Days Qty: 30 RF: 0 betamethasone valerate 0.1 % Cream 1 applic topical BID Qty: 0 RF: 0 metoprolol tartrate 25 mg Tablet 25 mg PO BID 30 Days Qty: 60 RF: 0 Xarelto 20 mg Tablet 20 mg PO DINNER@1700 30 Days Qty: 30 RF: 0 methocarbamol 750 mg Tablet 750 mg PO Q8H 30 Days Qty: 90 RF: 0 gabapentin 300 MG capsule 300 mg PO BID 30 Days Qty: 60 RF: 0 oxycodone 5 mg Tablet 10 mg PO 0600,1400,2200 5 Days Qty: 30 RF: 0 Referrals / Follow Up: Gisela Metcalf [Other] (Follow-up within 1-2 weeks discharge from hospital as well as within 1-2 days of SNF discharge.) Gisela Metcalf [Other] Eric Ying DO [STAFF PHYSICIAN] - (Follow-up as needed if ongoing R shoulder discomfort.) Disposition Disposition (needs filled in before D/C Order can be placed): Half-Way Facility Charges/Coding Visit Charges Inpatient E&M: 32075 Disch Hosp
[2021-01-11] MEDS: Rivaroxaban 20 MG Tablet PO (17:11)
--- NOTE | 2021-01-11 17:37 | CASEMGMT ---
Addendum entered by Tabby Omer 01/11/21 18:22: NELLY faxed COVID test/tool to [facility], Original in SNF folder. Original Note: Social Work Note NELLY received call from Trudy at [facility] stating pre-cert has been obtained, pt can discharge to [facility] today. SW in to speak with pt. SW updated pt that pre-cert for [facility] has been obtained, pt to discharge to [facility] today. Pt states understanding. Pt then called this worker back to room stating she will not discharge to [facility] tonight unless the SNF can guarantee they will have her medications. Pt states she has been discharged to SNF before and they didn't have pt's medications for days and she will not discharge to SNF tonight unless SNF can confirm they will have pt's medications. NELLY informed pt that this worker can call [facility] and speak to staff. Pt states she needs to speak to them too. NELLY placed a call to Trudy in admissions on her cell phone ([phone]). NELLY asked Trudy about pt's medications getting filled tonight. Trudy states the pharmacy makes nightly trips and since pt is admitting to SNF so late, she cannot guarantee pt will get medications that are due tonight. Trudy asked about pt getting her medications. NELLY informed Trudy that this worker will need to check with physician. Pt again states she is not going to be discharged today unless medications can be given to her before she goes or SNF can confirm they will have medications. NELLY informed pt that this worker will update physician. NELLY updated physician. Physician states medications can be given early. NELLY updated RN. Pt to transport via cot. NELLY faxed completed discharge paperwork to Trudy at [facility] including transfer to extended care facility, signed medication list, any scripts, COVID test/Tool and PAS/RR with PAS/RR results. Original in SNF folder and copy on pt's chart. NELLY completed PAS/RR in H[facility]. Original in SNF folder and copy on pt's chart. NELLY accessed trip assist and arranged transportation via cot for 8:30pm as this is the earliest Physician's can transport pt. NELLY placed a call to Trudy and updated her that pt will get medication before she discharges and transportation is arranged for 8:30pm. Trudy states understanding. SW in to speak with pt. SW updated pt on transportation time. RN updated. Plan: [facility] skilled under PAS/RR with Physician's transportation pt via cot at 8:30pm Tabby HERRERA, [employer]ACHINE [employer]DER
[2021-01-11] MEDS: hydrOXYzine PAM 25 MG Capsule PO (19:21)
[2021-01-11] MEDS: Pramipexole Di-HCl 0.25 MG Tablet PO (19:26)
--- NOTE | 2021-01-11 19:54 | NURSING ---
report called to Trudy at [facility]- also gave meds list of meds given prior to d/c
== END 2021-01-11 19:30 | disposition skilled nursing facility (03) ==
LOC: ED 13:11 → MS3 13:29
PROVIDERS: Admitting Provider Internal Medicine; Emergency Provider Emergency Medicine; Visit Provider Family Medicine
DX: L03.115 Cellulitis of right lower limb (principal); M75.121 Complete rotator cuff tear or rupture of right shoulder, not specified as traumatic; R62.7 Adult failure to thrive; F32.A Depression, unspecified; E55.9 Vitamin D deficiency, unspecified; M17.0 Bilateral primary osteoarthritis of knee; I48.0 Paroxysmal atrial fibrillation; I10 Essential (primary) hypertension; E78.5 Hyperlipidemia, unspecified; J44.9 Chronic obstructive pulmonary disease, unspecified; F41.9 Anxiety disorder, unspecified; F10.11 Alcohol abuse, in remission; G89.4 Chronic pain syndrome; G47.33 Obstructive sleep apnea (adult) (pediatric); R00.0 Tachycardia, unspecified; M48.04 Spinal stenosis, thoracic region; E66.01 Morbid (severe) obesity due to excess calories; Z68.42 Body mass index [BMI] 45.0-49.9, adult; Z79.899 Other long term (current) drug therapy; Z79.01 Long term (current) use of anticoagulants; Z87.891 Personal history of nicotine dependence; G25.81 Restless legs syndrome
CPT/HCPCS: 36415; 73030; 80048; 80053; 85025; 87426; 87641; 93005; 93971; 96365; 96366; 96375; 97110; 97162; 97166; 97530; 97535; 97802; 99218; 99285; J7050; A4216; G0378; J0295; J2405

== ENCOUNTER 2021-03-06 11:54 | Outpatient (CLI) | payer OTHER, MEDICARE, SELFPAY ==
[2021-03-06 11:58] LABS: Mucous, Urine 0 SEEN /hpf (<or=2+); Red Blood Cells-Urine 0 SEEN /hpf (0-5)
[2021-03-06 12:11] LABS: Color, Urine Yellow (Yellow); Glucose, Dipstick Normal (Normal); Ketone-Dipstick Negative (Negative); Leukocyte Esterase-Dipstick Negative /ul (Negative); Nitrite-Dipstick Positive (Negative); Occult Blood-Urine Negative /ul (Negative); Protein-Dipstick Negative (Negative); Specific Gravity, Urine 1.015 (1.002-1.030); Urine Bilirubin Dipstick Negative (Negative); Urine Clarity Clear (Clear); Urine Urobilinogen Normal (Normal)
[2021-03-06 12:17] LABS: Absolute Lymphocyte Count 1.69 X10^3/uL (0.83-4.51); Absolute Neutrophil Count 6.4 X10^3/uL (2.0-7.7); Bacteria 3+ /hpf (None Seen); Basophil# 0.06 X10^3/uL; Basophil% 0.6 % (0-1); Eosinophil# 0.48 X10^3/uL; Eosinophils% 5.2 % (0-5); Hematocrit 39.5 % (37-47); Hemoglobin 11.8 g/dL (12.0-15.0); Lymphocyte # 1.69 X10^3/ul (0.83-4.51); Lymphocyte % 18.3 % (19-41); Mean Corp Hgb Conc 29.9 g/dL (32-36); Mean Corpuscular Hgb 24.6 pg (27.0-32.0); Mean Corpuscular Volume 82.3 fL (81-99); Mean Platelet Vol. 10.1 fl (6.2-12.0); Monocyte# 0.56 X10^3/uL; Monocyte% 6.1 % (0-10); NRBC Flagged by Analyzer 0 % (0-5); Neutrophil # 6.43 X10^3/uL (2.7-7.7); Neutrophil % 69.5 % (47-70); Platelet Count 332 K/mm3 (150-450); RBC Distribution Width CV 17.9 % (11.6-14.6); RBC Distribution Width SD 53.3 fl (35.1-43.9); Squamous Epithelial Cells - UA 0-5 SEEN /hpf (5-10); White Blood Cells 0-5 SEEN /hpf (0-5); White Blood Count 9.3 K/mm3 (4.4-11.0)
[2021-03-06 12:27] LABS: ALB/GLOB Ratio 1.2 RATIO (0.9-2.4); AST(SGOT) 18 U/L (15-37); Alanine Aminotransfer ALT/SGPT 24 U/L (13-56); Albumin, Serum 3.8 g/dL (3.2-5.0); Alkaline Phosphatase 90 U/L (45-117); Anion Gap 6 (5-15); BUN 21 mg/dL (7-18); BUN/Creat Ratio 40.6 RATIO (10-20); Calcium,Total 9.5 mg/dL (8.5-10.1); Chloride 108 mmol/L (98-107); Creatinine, Serum 0.52 mg/dL (0.55-1.02); EST Glomerular Filtration Rate 126 mL/min (>60); Est Glom Filt Rate - Afr Amer 152 mL/min (>60); Globulin 3.1 g/dL (2.2-4.2); Glucose 106 mg/dL (74-106); Hemoglobin A1c 5.6 % (3.8-5.6); Potassium 4.4 mmol/L (3.5-5.1); Protein, Total 6.9 g/dL (6.4-8.2); Sodium Level 142 mmol/L (136-145)
== END 2021-03-06 23:59 | disposition home or self-care (01) ==
LOC: LABSPEC 11:55
DX: Z00.00 Encounter for general adult medical examination without abnormal findings (principal)
CPT/HCPCS: 80053; 81001; 83036; 85025; 87086; 87088; 87186

== ENCOUNTER → 2021-03-30 11:00 | Outpatient (CLI) | payer OTHER, SELFPAY ==
[2021-03-30 11:28] LABS: Mucous, Urine 0 SEEN /hpf (<or=2+); Red Blood Cells-Urine 0 SEEN /hpf (0-5)
[2021-03-30 12:13] LABS: Color, Urine Yellow (Yellow); Glucose, Dipstick Normal (Normal); Ketone-Dipstick Negative (Negative); Leukocyte Esterase-Dipstick 100 /ul (Negative); Nitrite-Dipstick Negative (Negative); Occult Blood-Urine Negative /ul (Negative); Protein-Dipstick Negative (Negative); Urine Bilirubin Dipstick Negative (Negative); Urine Clarity Clear (Clear); Urine Urobilinogen Normal (Normal)
[2021-03-30 12:21] LABS: Bacteria RARE /hpf (None Seen); Squamous Epithelial Cells - UA 0-5 SEEN /hpf (5-10); White Blood Cells 5-10 SEEN /hpf (0-5)
[2021-03-30 12:22] LABS: Calcium Oxalate Crystals Ur RARE /hpf (<or=2+)
== END ==
DX: N39.0 Urinary tract infection, site not specified (principal)
CPT/HCPCS: 81001; 87086; 87088

== ENCOUNTER → 2021-04-06 13:22 | Outpatient (CLI) | payer OTHER, SELFPAY ==
[2021-04-06 14:34] LABS: Absolute Lymphocyte Count 1.47 X10^3/uL (0.83-4.51); Absolute Neutrophil Count 6.7 X10^3/uL (2.0-7.7); Basophil# 0.05 X10^3/uL; Basophil% 0.5 % (0-1); Eosinophil# 0.39 X10^3/uL; Eosinophils% 4.2 % (0-5); Hematocrit 36.3 % (37-47); Hemoglobin 11.2 g/dL (12.0-15.0); Lymphocyte # 1.47 X10^3/ul (0.83-4.51); Lymphocyte % 15.9 % (19-41); Mean Corp Hgb Conc 30.9 g/dL (32-36); Mean Corpuscular Hgb 25.2 pg (27.0-32.0); Mean Corpuscular Volume 81.8 fL (81-99); Mean Platelet Vol. 10.1 fl (6.2-12.0); Monocyte# 0.64 X10^3/uL; Monocyte% 6.9 % (0-10); NRBC Flagged by Analyzer 0 % (0-5); Neutrophil # 6.66 X10^3/uL (2.7-7.7); Neutrophil % 72.3 % (47-70); Platelet Count 271 K/mm3 (150-450); RBC Distribution Width CV 17.7 % (11.6-14.6); RBC Distribution Width SD 51.9 fl (35.1-43.9); Red Blood Count 4.44 M/mm3 (4.2-5.4); White Blood Count 9.2 K/mm3 (4.4-11.0)
[2021-04-06 14:45] LABS: ALB/GLOB Ratio 1.2 RATIO (0.9-2.4); AST(SGOT) 17 U/L (15-37); Alanine Aminotransfer ALT/SGPT 25 U/L (13-56); Albumin, Serum 3.6 g/dL (3.2-5.0); Alkaline Phosphatase 95 U/L (45-117); Anion Gap 7 (5-15); BUN 29 mg/dL (7-18); BUN/Creat Ratio 55.8 RATIO (10-20); Calcium,Total 9.2 mg/dL (8.5-10.1); Chloride 102 mmol/L (98-107); Cholesterol 147 mg/dL (200); Creatinine, Serum 0.52 mg/dL (0.55-1.02); EST Glomerular Filtration Rate 125 mL/min (>60); Est Glom Filt Rate - Afr Amer 151 mL/min (>60); Globulin 2.9 g/dL (2.2-4.2); Glucose 88 mg/dL (74-106); High Density Lipoprotein 39 mg/dL; Potassium 4.2 mmol/L (3.5-5.1); Protein, Total 6.5 g/dL (6.4-8.2); Sodium Level 139 mmol/L (136-145); Triglycerides 135 mg/dL; Very Low Density Lipoprotein 27 mg/dL (5-40)
[2021-04-06 14:50] LABS: Hemoglobin A1c 5.4 % (3.8-5.6)
== END ==
DX: I10 Essential (primary) hypertension (principal); R73.03 Prediabetes; E78.5 Hyperlipidemia, unspecified
CPT/HCPCS: 80053; 80061; 83036; 85025

== ENCOUNTER 2023-05-02 05:38 | Emergency (ER) | payer MEDICARE, SELFPAY ==
[2023-05-02 05:39] VITALS: BP 159/77; PULSE 98; RESP 18; TEMP 36.9; O2SAT 99; BMI 45.0
--- NOTE | 2023-05-02 05:52 | RAD_ITS ---
STUDY: X-RAY - PELVIS REASON FOR EXAM: Female, 67 years old patient with right-sided buttock pain near ischial tuberosity. TECHNIQUE: One view of the pelvis was obtained. COMPARISON: None. FINDINGS: There is a non-specific bowel gas pattern. Normal visualized soft tissue structures. The sacrum and iliac wings are obscured by bowel gas and stool. Normal visualized bilateral superior and inferior pubic rami. Normal pubic symphysis. Normal ischial tuberosities. Normal visualized right femoral head. Normal right acetabulum. Normal right hip joint. Normal visualized left femoral head. Normal left acetabulum. Normal left hip joint. RAD/Pelvis 1 or 2 Views IMPRESSION: No definite evidence for acute fracture or dislocation. Electronically Signed: Gillian Husain MD at 7:50 EDT ,
--- NOTE | 2023-05-02 05:52 | RAD_ITS ---
STUDY: X-RAY - LUMBAR SPINE REASON FOR EXAM: Female, 67 years old. Severe lower back pain. Prior lumbar surgery. TECHNIQUE: 3 view(s) of the lumbar spine were obtained. COMPARISON: None FINDINGS: There is straightening of the normal lumbar lordosis. There is no substantial scoliosis. There is a normal alignment of the vertebrae. There is multilevel endplate spondylosis of the lumbar vertebrae. There is multi-level degenerative disc disease with multi-level disc space narrowing. There is atherosclerotic calcification of the abdominal aorta without a demonstrated aneurysm. RAD/Lumbar Spine 2 or 3 Views IMPRESSION: Degenerative changes of the spine, as detailed above. Loss of the normal lumbar lordosis. Electronically Signed: Francisco Zavaleta MD at 8:01 EDT ,
--- NOTE | 2023-05-02 05:54 | ED.VIS.BACK ---
HPI History of Present Illness Chief Complaint: Back Informant: patient Onset/Context/Timing Onset: Days (2-3) Context: Gradual Onset Narrative Narrative: Patient presenting with severe back pain, it is in her right buttock. It radiates down the right lower extremity to about the knee. She denies any saddle anesthesia, new numbness or weakness in her legs, she has a history of peripheral neuropathy bilateral lower extremities chronically since her surgery in her lumbar spine about a year ago; she denies any bowel or bladder dysfunction tonight. She states the pain started as a twinge and is gradually gotten worse for the last couple days. Now any movement makes everything significantly worse. She denies any fevers or chills. She states this is different than the typical back pain that she usually has. She often is in a wheelchair due to her chronic debility and issues with her knees arthritis and back issues. [facility] Medical History Alcohol abuse Anxiety Atrial fibrillation BiPAP (biphasic positive airway pressure) dependence Cellulitis COPD (chronic obstructive pulmonary disease) Debility Depression Former smoker Herpes zoster Hyperlipidemia Hypertension Irregular heart beat Murmur, cardiac Muscle spasm Neuropathic pain Osteoarthritis Osteoarthritis of knees, bilateral Pseudogout of right knee Thoracic spinal stenosis Thyroid nodule Vitamin D deficiency Home Medications amlodipine 5 mg tablet 5 mg PO DAILY BP 12/08/20 [History Last Taken Unknown] atorvastatin 10 mg tablet 10 mg PO DAILY@2200 Cholesterol 12/08/20 [History Last Taken Unknown] cholecalciferol (vitamin D3) 25 mcg (1,000 unit) tablet (Vitamin D3) 2,000 unit PO DAILY Supplement 12/08/20 [History Last Taken Unknown] clonidine HCl 0.1 mg tablet 0.1 mg PO BID BP 12/08/20 [History Last Taken Unknown] diclofenac sodium 1 % topical gel (Voltaren Arthritis Pain) 1 ea topical Q6H Pain 12/08/20 [History Last Taken Unknown] sertraline 100 mg tablet 100 mg PO DAILY Mood 12/08/20 [History Last Taken Unknown] acetaminophen 500 mg tablet 1,000 mg (2 x 500 mg) PO Q6H PRN PRN Pain Score 1-10 #0 tabs 01/01/21 [Rx Last Taken Unknown] betamethasone valerate 0.1 % topical cream 1 applic topical BID #0 grams 01/01/21 [Rx Last Taken Unknown] gabapentin 300 mg capsule 300 mg PO BID Nerve Pain 30 days #60 caps 01/01/21 [Rx Last Taken Unknown] methocarbamol 750 mg tablet 750 mg PO Q8H pain 30 days #90 tabs 01/01/21 [Rx Last Taken Unknown] metoprolol tartrate 25 mg tablet 25 mg PO BID 30 days #60 tabs 01/01/21 [Rx Last Taken Unknown] potassium chloride 20 mEq tablet,extended release(part/cryst) (Klor-Con M) 20 meq PO DAILYCM 30 days #30 tabs 01/01/21 [Rx Last Taken Unknown] rivaroxaban 20 mg tablet (Xarelto) 20 mg PO DINNER@1700 30 days #30 tabs 01/01/21 [Rx Last Taken Unknown] sennosides 8.6 mg tablet (Donna-rakan) 17.2 mg (2 x 8.6 mg) PO BID 30 days #120 tabs 01/01/21 [Rx Last Taken Unknown] cefadroxil 500 mg capsule 1,000 mg (2 x 500 mg) PO BID 2 days #8 caps 01/11/21 [Rx Last Taken Unknown] hydroxyzine pamoate 25 mg capsule 25 mg PO QHS 30 days #30 caps 01/11/21 [Rx Last Taken Unknown] pramipexole 0.25 mg tablet 0.25 mg PO QHS 30 days #30 tabs 01/11/21 [Rx Last Taken Unknown] orphenadrine citrate 100 mg tablet,extended release 100 mg PO BID PRN muscle spasm #10 tabs 05/02/23 [Rx Last Taken Unknown] oxycodone 5 mg tablet 5 - 10 mg (1 - 2 x 5 mg) PO Q6H PRN pain 3 days #20 tabs 05/02/23 [Rx Last Taken Unknown] Allergy/AdvReac Type Severity Reaction Status Date / Time hydrocodone [From Vicodin] Allergy Anaphylaxis Verified 05/02/23 05:40 lorazepam [From Ativan] Allergy Hives Verified 05/02/23 05:40 neomycin Allergy Hives Verified 05/02/23 05:40 Surgical History (Updated 01/19/21 @ 00:01 by Background Dathad) History of adenoidectomy History of back surgery History of back surgery Hx of tonsillectomy Social History household members: family Smoking Status: Former smoker alcohol intake: never substance use type: does not use ROS ROS ED Constitutional Constitutional ED: Denies chills or fever(s) Gastrointestinal Gastrointestinal: Denies abdominal pain, constipation, fecal incontinence, nausea or vomiting Genitourinary Genitourinary ED: Reports other Details: no urinary retention ; Denies abdominal discomfort or urinary incontinence Musculoskeletal Musculoskeletal: Reports as per HPI and back pain; Denies neck pain Integumentary Denies rash or wounds Neurologic Neurologic: Denies headache(s), paresthesias or weakness EXAM Physical Exam Const Vital Signs: 05/02/23 05:39 05/02/23 07:39 Temperature 98.5 F Temperature Source Temporal Pulse Rate 98 Respiratory Rate 18 Blood Pressure 159/77 H 128/64 H Blood Pressure Mean 104 85 Pulse Ox 99 Oxygen Delivery Method Room Air Positive well nourished, well developed and obese General Appearance ED: well developed and NAD Nutritional Appearance: obese HEENT Negative for trauma or tenderness Eyes PERRL and EOMs intact bilaterally Neck full ROM and supple GI normal to inspection, nondistended, normoactive bowel sounds, soft to palpation and non-tender Back/Spine normal to inspection Back/Spine Narrative: Straight leg raises are negative, the contralateral left leg being raised increases her right buttock pain more than doing the right leg. She is mostly tender at the right ischial tuberosity. Inspection normal here. No midline spine tenderness. Exam is significantly limited due to morbid obesity. Lumbar Spine / Lower Back: ROM limited and straight leg raise negative bilaterally; Negative for lumbar spinal tenderness Extremity normal to inspection, full ROM and no pedal edema Neuro oriented x3 and no sensory deficits noted Sensorium / Orientation: alert Motor Exam: strength 5/5 throughout and clonus absent Deep Tendon Reflexes: Rt Patellar (L4): 0, Lt Patellar (L4): 0, Rt Ankle (S1): 0 and Lt Ankle (S1): 0 Deep Tendon Reflexes Back: Rt Patellar (L4): 0, Lt Patellar (L4): 0, Rt Ankle (S1): 0 and Lt Ankle (S1): 0 Plantar Reflex: Downgoing: bilateral Psych mental status grossly normal and thought process normal Psych Narrative: Anxious Skin no rashes or lesions noted and no wounds MDM MDM MDM Narrative Medical decision making narrative: 4 view x-ray series of the lumbosacral spine was obtained, my interpretation shows severe degenerative changes, radiology agrees. 1 view pelvis x-ray was obtained to look at the ischial tuberosity specifically, it does not appear to have any acute radiographically visible bony abnormality. Radiology in agreement here as well. In the meantime, her symptoms were treated initially with morphine and Toradol, she then appeared to be having some pain and spasms as she came back from radiology so we added Norflex which seemed to help more. She is doing better. In reviewing her history, she saw a surgeon at [facility] in [place], she does not want to go back there because it is too far although she liked him, and was told that there was an area further down in her spine that could potentially require surgery in the future. Therefore I would refer her back to orthospine, she is wanting local resources which were given to her, she was also advised that she could follow-up at the [facility] orthopedic clinic here in [place]. Radiography Diagnostic Testing: Clinical Impression(s) from Imaging Studies Lumbar Spine X-Ray 05/02/23 05:52 IMPRESSION: Degenerative changes of the spine, as detailed above. Loss of the normal lumbar lordosis. Electronically Signed: Francisco Zavaleta MD at 8:01 EDT , Pelvis X-Ray 05/02/23 05:52 IMPRESSION: No definite evidence for acute fracture or dislocation. Electronically Signed: Gillian Husain MD at 7:50 EDT , Discharge Plan Triage Chief Complaint: Back ED Provider: Indra Thompson Dx/Rx/DC Orders Clinical Impression: Acute right-sided low back pain with sciatica Instructions: ED Back Pain (Acute or Chronic), ED Sciatica Prescriptions: New orphenadrine citrate 100 mg tablet extended release 100 mg PO BID PRN (Reason: muscle spasm) Qty: 10 0RF Changed oxycodone 5 mg Tablet 5 - 10 mg PO Q6H PRN (Reason: pain) 3 Days Qty: 20 0RF No Action diclofenac sodium [Voltaren Arthritis Pain] 1 % Gel 1 ea TOPICAL Q6H clonidine HCl 0.1 MG tablet 0.1 mg PO BID atorvastatin 10 MG tablet 10 mg PO DAILY@2200 sertraline 100 MG tablet 100 mg PO DAILY amlodipine 5 MG tablet 5 mg PO DAILY cholecalciferol (vitamin D3) [Vitamin D3] 1,000 UNIT tablet 2,000 unit PO DAILY acetaminophen 500 mg Tablet 1,000 mg PO Q6H PRN PRN (Reason: Pain Score 1-10) Qty: 0 0RF sennosides [Donna-rakan] 8.6 mg Tablet 17.2 mg PO BID 30 Days Qty: 120 0RF potassium chloride [Klor-Con M20] 20 mEq Tablet,Er Particles/Crystals 20 meq PO DAILYCM 30 Days Qty: 30 0RF betamethasone valerate 0.1 % Cream 1 applic topical BID Qty: 0 0RF Protocol: *Topical Application Instructions APPLICATION INSTRUCTIONS: Right lateral lower extremity, right lateral foot. metoprolol tartrate 25 mg Tablet 25 mg PO BID 30 Days Qty: 60 0RF Xarelto 20 mg Tablet 20 mg PO DINNER@1700 30 Days Qty: 30 0RF methocarbamol 750 mg Tablet 750 mg PO Q8H 30 Days Qty: 90 0RF gabapentin 300 MG capsule 300 mg PO BID 30 Days Qty: 60 0RF cefadroxil 500 mg Capsule 1,000 mg PO BID 2 Days Qty: 8 0RF pramipexole 0.25 mg Tablet 0.25 mg PO QHS 30 Days Qty: 30 0RF hydroxyzine pamoate 25 mg Capsule 25 mg PO QHS 30 Days Qty: 30 0RF Primary Care Provider: Alissa Doty Referrals: Indra Huber MD [Non-Staff] - As Needed (([facility])) Edilson Haywood DO [Med Staff - Active Staff] - As Needed ([facility]) Alissa Doty MD [Primary Care Provider] - Richard Garcia DO [Med Staff - Active Staff] - As Needed ([facility]) Disposition Disposition: Home, Self Care
[2023-05-02] MEDS: Ketorolac 30 MG/ML Syringe IM (07:06)
[2023-05-02] MEDS: Morphine 4 MG/ML Syringe IM (07:07)
[2023-05-02 07:39] VITALS: BP 128/64
[2023-05-02] MEDS: Orphenadrine 60 MG/2 ML Ampul IM (07:46)
--- NOTE | 2023-05-02 08:41 | NURSING ---
CALLED [facility], ETA IS 30 MIN
[2023-05-02 09:00] VITALS: BP 127/64; BP 134/78; PULSE 64; PULSE 78; RESP 14; RESP 16; TEMP 36.4; O2SAT 98; O2SAT 99
== END 2023-05-02 09:15 | disposition home or self-care (01) ==
PROVIDERS: Emergency Provider Emergency Medicine; PCP Internal Medicine; Visit Provider Emergency Medicine
DX: M54.41 Lumbago with sciatica, right side (principal); J44.9 Chronic obstructive pulmonary disease, unspecified; M17.0 Bilateral primary osteoarthritis of knee; Z87.891 Personal history of nicotine dependence; Z99.3 Dependence on wheelchair; I10 Essential (primary) hypertension; E78.5 Hyperlipidemia, unspecified; E66.9 Obesity, unspecified
CPT/HCPCS: 72100; 72170; 96372; 99282; J7030

== ENCOUNTER 2023-06-02 16:35 | Inpatient (IN) | payer MEDICARE, OTHER, SELFPAY ==
[2023-06-02 16:36] VITALS: BP 151/70; BP 151/71; PULSE 74; PULSE 84; RESP 15; RESP 16; TEMP 36.2; O2SAT 96; O2SAT 97; BMI 44.2
--- NOTE | 2023-06-02 16:57 | EDS_ITS ---
HPI History of Present Illness Chief Complaint: Lower Extremity Injury Narrative Narrative: 67-year-old female past medical history of chronic back pain with sciatica, other medical problems presents with low back pain and right lower extremity pain that she has had for at least a month. She was seen in the emergency department, and was told to follow-up with her primary care provider. She also followed up with her previous spine surgeon as she has had 2 back surgeries in the past. She states that her surgeon is with [facility]. She is in a wheelchair as well secondary to her previous back surgeries. She complains of low back pain which is causing her to sleep leaning forward. Today, she got wedged between the wall of her toilet. She did not fall. She lives at home alone, and only has her niece and her friend check on her on occasion. [facility] Medical History Alcohol abuse Anxiety Atrial fibrillation BiPAP (biphasic positive airway pressure) dependence Cellulitis COPD (chronic obstructive pulmonary disease) Debility Depression Former smoker Herpes zoster Hyperlipidemia Hypertension Irregular heart beat Murmur, cardiac Muscle spasm Neuropathic pain Osteoarthritis Osteoarthritis of knees, bilateral Pseudogout of right knee Thoracic spinal stenosis Thyroid nodule Vitamin D deficiency Home Medications atorvastatin 10 mg tablet 10 mg PO DAILY@2200 Cholesterol 12/08/20 [History Last Taken 06/01/23] cholecalciferol (vitamin D3) 25 mcg (1,000 unit) tablet (Vitamin D3) 2,000 unit PO DAILY Supplement 12/08/20 [History Last Taken 06/01/23] clonidine HCl 0.1 mg tablet 0.1 mg PO BID BP 12/08/20 [History Last Taken 06/01/23] diclofenac sodium 1 % topical gel (Voltaren Arthritis Pain) 1 ea topical Q6H Pain 12/08/20 [History Last Taken 06/01/23] sertraline 100 mg tablet 100 mg PO DAILY Mood 12/08/20 [History Last Taken 06/01/23] gabapentin 300 mg capsule 300 mg PO BID Nerve Pain 30 days #60 caps 01/01/21 [Rx Last Taken 06/01/23] methocarbamol 750 mg tablet 750 mg PO Q8H pain 30 days #90 tabs 01/01/21 [Rx Last Taken 06/01/23] potassium chloride 20 mEq tablet,extended release(part/cryst) (Klor-Con M) 20 meq PO DAILYCM 30 days #30 tabs 01/01/21 [Rx Last Taken 06/01/23] hydroxyzine pamoate 25 mg capsule 25 mg PO QHS 30 days #30 caps 01/11/21 [Rx Last Taken 06/01/23] orphenadrine citrate 100 mg tablet,extended release 100 mg PO BID PRN muscle spasm #10 tabs 05/02/23 [Rx Last Taken 06/01/23] acetaminophen 500 mg tablet 1,000 mg PO Q6H PRN Pain Score 1-10 06/02/23 [History Last Taken 06/01/23] amlodipine 10 mg tablet 10 mg PO DAILY 06/02/23 [History Last Taken 06/01/23] diclofenac sodium 100 mg tablet,extended release 24 hr 100 mg PO DAILY 06/02/23 [History Last Taken 06/01/23] docusate sodium 100 mg capsule 100 mg PO DAILY 06/02/23 [History Last Taken 06/01/23] ketoconazole 2 % topical cream 1 applic topical DAILY 06/02/23 [History Last Taken 06/01/23] oxycodone-acetaminophen 5 mg-325 mg tablet 1 tab PO 4X/DAY PRN PRN pain 06/02/23 [History Last Taken 06/02/23] prednisone 10 mg tablet 10 mg PO DAILY STERIOD TAPER 06/02/23 [History Last Taken 06/01/23] spironolactone 25 mg tablet 25 mg PO DAILY 06/02/23 [History Last Taken 06/01/23] valsartan 160 mg tablet 160 mg PO DAILY 06/02/23 [History Last Taken 06/01/23] valsartan 80 mg tablet 80 mg PO DAILY 06/02/23 [History Last Taken 06/01/23] Allergy/AdvReac Type Severity Reaction Status Date / Time hydrocodone [From Vicodin] Allergy Anaphylaxis Verified 06/02/23 16:42 lorazepam [From Ativan] Allergy Hives Verified 06/02/23 16:42 neomycin Allergy Hives Verified 06/02/23 16:42 Surgical History History of adenoidectomy History of back surgery History of back surgery Hx of tonsillectomy Social History household members: family Smoking Status: Former smoker alcohol intake: never substance use type: does not use ROS ROS ED ROS Narrative Constitutional: No fever, no chills. HEENT: No sore throat. No neck pain. No loss of vision. No rhinorrhea. Cardiovascular: No chest pain. No palpitations. No pedal edema. Respiratory: No cough, no shortness of breath. Abdominal: No abdominal pain. No nausea. No vomiting. Genitourinary: No dysuria. No hematuria. Musculoskeletal: No myalgias. No arthralgias. Neurologic: No headaches. No dizziness. No lightheadedness. Chronic low back pain with radiation down right leg. Skin: No rash. No change in color. Psychiatric: No depression. No anxiety. EXAM Physical Exam Narrative Exam Narrative: Afebrile. Vital signs noted. HEENT: Normocephalic. Atraumatic. PERRL, EOMI. Neck soft and supple. No point tenderness or step off. Cardiovascular: Regular rate and rhythm. No murmurs, rubs, or gallops appreciated. Respiratory: No tachypnea. Lungs clear to auscultation bilaterally. Gastrointestinal: Abdomen soft, obese, nontender, with normoactive bowel sounds. No rebound or guarding. Neurological: Awake. Alert. Nonfocal, nonlateralizing. Skin: No rash. Normal color. No pallor. Musculoskeletal: No pedal edema. Able to wiggle toes bilaterally. Able to flex and extend bilateral hips. Needs some assistance in straightening out right leg. Const Vital Signs: 06/02/23 16:36 06/02/23 16:36 Temperature 97.2 F L 97.2 F L Temperature Source Temporal Temporal Pulse Rate 74 84 Respiratory Rate 15 16 Blood Pressure 151/71 H 151/70 H Blood Pressure Mean 97 97 Pulse Ox 96 97 Oxygen Delivery Method Room Air Room Air MDM MDM MDM Narrative Medical decision making narrative: I reviewed the patient's prior records. She had also been on her for to orthospine here during her last visit. She has been seen for adult failure to thrive as well. She states she is not doing well at home, and her niece is concerned about her safety they do not feel like she can go home. She wants to be admitted to a rehab facility, hopefully here is where she would like to be placed. I will obtain baseline laboratories including CBC and CMP and UA. She states that she did not take her pain medications this morning and she is on oxycodone and she believes Norflex for her pain. She was given 1 oral oxycodone here for analgesia. I will discuss the patient with the hospitalist for observation for placement. She is in stable condition. I reviewed her medical screening labs and she has a leukocytosis of 14.1 which I think is nonspecific, hemoglobin stable at 11.1, hematocrit 34.8, platelet count normal at 370. Electrolyte panel is grossly unremarkable except for BUN of 28 and a normal creatinine of 0.62. Urinalysis is negative for infection with 0-5 WBCs, I do not feel antibiotics are indicated. X-rays were obtained of the lumbar spine and interpreted by myself independently as no acute fracture, there are chronic changes noted. Multilevel degenerative disc disease noted as well. I reviewed the radiology report which confirms my independent interpretation. At this point in time, I discussed the patient with Dr. Monika Mendoza for observation on the medical surgical floor. Patient is in stable condition. History & Record Review Discussion w/independent historian: Patient and Family Additional record(s) reviewed:: Prior labs Lab Data Attestation: I reviewed the patient's lab results. Labs: Laboratory Results - last 24 hr 06/02/23 17:50 WBC 14.1 H RBC 4.03 L Hgb 11.1 L Hct 34.8 L MCV 86.4 MCH 27.5 MCHC 31.9 L RDW Std Deviation 42.9 RDW Coeff of Laila 13.8 Plt Count 370 MPV 9.0 Immature Gran % (Auto) 0.400 Neut % (Auto) 82.4 H Lymph % (Auto) 8.3 L [place] % (Auto) 7.0 Eos % (Auto) 1.5 Baso % (Auto) 0.4 Absolute Neuts (auto) 11.7 H Absolute Lymphs (auto) 1.18 Nucleated RBC % 0 Sodium 139 Potassium 4.4 Chloride 106 Carbon Dioxide 25.0 Anion Gap 8 BUN 28 H Creatinine 0.62 Estim Creat Clear Calc 89.41 Est GFR (MDRD) Af Amer 123 Est GFR (MDRD) Non-Af 102 BUN/Creatinine Ratio 45.4 H Glucose 104 Calcium 9.4 Total Bilirubin 0.60 AST 54 H ALT 43 Alkaline Phosphatase 105 Total Protein 7.0 Albumin 3.4 Globulin 3.6 Albumin/Globulin Ratio 0.9 Urine Color Yellow Urine Clarity Clear Urine pH 6.0 Ur Specific [place] 1.020 Urine Protein 30 H Urine Glucose (UA) Normal Urine Ketones 50 H Urine Occult Blood 10 H Urine Nitrite Negative Urine Bilirubin Negative Urine Urobilinogen 1 H Ur Leukocyte Esterase 25 H Urine RBC 0-5 SEEN Urine WBC 0-5 SEEN Ur Squamous Epith Cells 0 SEEN Urine Bacteria RARE Urine Mucus 1+ Discharge Plan Dx/Rx/DC Orders Clinical Impression: At high risk for falls, Chronic back pain, Adult failure to thrive Disposition Disposition: Acute Care Hospital [facility]
[2023-06-02] MEDS: oxyCODONE 5 MG Tablet PO (17:47)
[2023-06-02 18:00] LABS: Squamous Epithelial Cells - UA 0 SEEN /hpf (5-10)
[2023-06-02 18:04] LABS: Absolute Lymphocyte Count 1.18 X10^3/uL (0.83-4.51); Absolute Neutrophil Count 11.7 X10^3/uL (2.0-7.7); Basophil# 0.06 X10^3/uL; Basophil% 0.4 % (0-1); Eosinophil# 0.21 X10^3/uL; Eosinophils% 1.5 % (0-5); Hematocrit 34.8 % (37-47); Hemoglobin 11.1 g/dL (12.0-15.0); Lymphocyte # 1.18 X10^3/ul (0.83-4.51); Lymphocyte % 8.3 % (19-41); Mean Corp Hgb Conc 31.9 g/dL (32-36); Mean Corpuscular Hgb 27.5 pg (27.0-32.0); Mean Corpuscular Volume 86.4 fL (81-99); Monocyte# 0.99 X10^3/uL; NRBC Flagged by Analyzer 0 % (0-5); Neutrophil # 11.65 X10^3/uL (2.7-7.7); Neutrophil % 82.4 % (47-70); Platelet Count 370 K/mm3 (150-450); RBC Distribution Width CV 13.8 % (11.6-14.6); RBC Distribution Width SD 42.9 fl (35.1-43.9); Red Blood Count 4.03 M/mm3 (4.2-5.4); White Blood Count 14.1 K/mm3 (4.4-11.0)
--- NOTE | 2023-06-02 18:11 | HP.PCM.HOS_ITS ---
HPI - General General Date of Admission: 06/02/23 Date of Service: 06/02/23 Chief Complaint: Intractable lumbar back pain and right lower extremity radiculopathy. HPI Narrative The patient is a 67 y/o F w/ PMHx: Anxiety and Depression, PAF, IRIS on BIPAP, COPD, Former EtOH abuse, Former tobacco use, Morbid obesity, HTN, HLD, Chronic back pain with chronic radiculopathy and sciatic pain with several prior surgeries noted to be nearly wheelchair bound who presents to the [facility] ED on 06/02/2023 with persistent low back pain with right lower extremity shooting pain for at least the last 4 weeks seen previously in the emergency room and followed up with her primary care with unfortunately mechanical fall while she was on the toilet unfortunately getting wedged between the wall and the toilet but no heart dropped onto the floor but unable to safely take care of herself prompting family to bring her in for evaluation and consideration of skilled facility placement. She is currently hunched over in bed and notes that her back discomfort is lessened by this but still 10 of 10, severe, dull constant aching throb and sharp intermittent stabbing pain especially to right lower extremity with movement attempt. Workup in the ED included T97.2, heart rate 84, BP 151/70, respiratory rate 16, 97% on room air, CBC with WBC 14.1, hemoglobin 9.1, MCV 86.4, platelet 370 with left shift, Plain film of the lumbar spine with no evidence of any lumbar spinal fracture or spondylolisthesis, severe multilevel generative disc disease and spondylosis. In the ED patient administered oxycodone 5 mg p.o. x 1. [facility] Medical History (Updated 06/02/23 @ 20:[address] Monika Mendoza MD) Anxiety and depression Atrial fibrillation COPD (chronic obstructive pulmonary disease) Former smoker Herpes zoster History of alcohol abuse Hyperlipidemia Hypertension Morbid obesity Neuropathic pain IRIS treated with BiPAP Osteoarthritis of knees, bilateral Pseudogout of right knee Thoracic spinal stenosis Thyroid nodule Vitamin D deficiency Home Medications atorvastatin 10 mg tablet 10 mg PO DAILY@2200 Cholesterol 12/08/20 [History Last Taken 06/01/23] cholecalciferol (vitamin D3) 25 mcg (1,000 unit) tablet (Vitamin D3) 2,000 unit PO DAILY Supplement 12/08/20 [History Last Taken 06/01/23] clonidine HCl 0.1 mg tablet 0.1 mg PO BID BP 12/08/20 [History Last Taken 06/01/23] diclofenac sodium 1 % topical gel (Voltaren Arthritis Pain) 1 ea topical Q6H Pain 12/08/20 [History Last Taken 06/01/23] sertraline 100 mg tablet 100 mg PO DAILY Mood 12/08/20 [History Last Taken 06/01/23] gabapentin 300 mg capsule 300 mg PO BID Nerve Pain 30 days #60 caps 01/01/21 [Rx Last Taken 06/01/23] methocarbamol 750 mg tablet 750 mg PO Q8H pain 30 days #90 tabs 01/01/21 [Rx Last Taken 06/01/23] potassium chloride 20 mEq tablet,extended release(part/cryst) (Klor-Con M) 20 meq PO DAILYCM 30 days #30 tabs 01/01/21 [Rx Last Taken 06/01/23] hydroxyzine pamoate 25 mg capsule 25 mg PO QHS 30 days #30 caps 01/11/21 [Rx Last Taken 06/01/23] orphenadrine citrate 100 mg tablet,extended release 100 mg PO BID PRN muscle spasm #10 tabs 05/02/23 [Rx Last Taken 06/01/23] acetaminophen 500 mg tablet 1,000 mg PO Q6H PRN Pain Score 1-10 06/02/23 [History Last Taken 06/01/23] amlodipine 10 mg tablet 10 mg PO DAILY 06/02/23 [History Last Taken 06/01/23] diclofenac sodium 100 mg tablet,extended release 24 hr 100 mg PO DAILY 06/02/23 [History Last Taken 06/01/23] docusate sodium 100 mg capsule 100 mg PO DAILY 06/02/23 [History Last Taken 06/01/23] ketoconazole 2 % topical cream 1 applic topical DAILY 06/02/23 [History Last Taken 06/01/23] oxycodone-acetaminophen 5 mg-325 mg tablet 1 tab PO 4X/DAY PRN PRN pain 06/02/23 [History Last Taken 06/02/23] prednisone 10 mg tablet 10 mg PO DAILY STERIOD TAPER 06/02/23 [History Last Taken 06/01/23] spironolactone 25 mg tablet 25 mg PO DAILY 06/02/23 [History Last Taken 06/01/23] valsartan 160 mg tablet 160 mg PO DAILY 06/02/23 [History Last Taken 06/01/23] valsartan 80 mg tablet 80 mg PO DAILY 06/02/23 [History Last Taken 06/01/23] Allergy/AdvReac Type Severity Reaction Status Date / Time hydrocodone [From Vicodin] Allergy Anaphylaxis Verified 06/02/23 16:42 lorazepam [From Ativan] Allergy Hives Verified 06/02/23 16:42 neomycin Allergy Hives Verified 06/02/23 16:42 Family History (Updated 06/02/23 @ 20:[address] Monika Mendoza MD) Mother No problems noted. Father Leukemia Diabetes Surgical History History of adenoidectomy History of back surgery History of back surgery Hx of tonsillectomy Social History (Updated 06/02/23 @ 20:[address] Monika Mendoza MD) household members: family Smoking Status: Former smoker how long ago did patient quit smoking: Quit 45 yrs prior, smoked 1 ppd starting age 19 until quit. alcohol intake: former details: Drank heavily prior, sober x 45 years. substance use type: does not use ROS ROS Narrative Admission Review of Systems: CONSTITUTIONAL: No weight loss, fever, chills, + weakness or fatigue. HEENT: Eyes: No visual loss, blurred vision, double vision or yellow sclerae. Ears, Nose, Throat: No hearing loss, sneezing, congestion, runny nose or sore throat. SKIN: No rash or itching, lesions, wounds. CARDIOVASCULAR: No chest pain, chest pressure or chest discomfort, palpitations, edema, orthopnea, syncopal events. RESPIRATORY: No shortness of breath, cough or sputum, wheezing, hemoptysis. GASTROINTESTINAL: No anorexia, nausea, vomiting or diarrhea, abdominal pain, melena, BRBPR. GENITOURINARY: No dysuria, frequency, urgency or retention. NEUROLOGICAL: Significant debility and weakness secondary to lumbar back pain with right lower extremity radiculopathy. No headache, dizziness, syncope, paralysis, ataxia, focal weakness, change in bowel or bladder control, seizure. MUSCULOSKELETAL: + muscle, back pain, joint pain or stiffness. HEMATOLOGIC: + Chronic anemia. No markedly easy bleeding or bruising. LYMPHATICS: No enlarged nodes. No history of splenectomy. PSYCHIATRIC: + Anxiety and depression. ENDOCRINOLOGIC: No reports of sweating, cold or heat intolerance. No polyuria or polydipsia. ALLERGIES: No history of asthma, hives, eczema or rhinitis. Vital Signs Vital Signs Vital Signs: 06/02/23 16:36 06/02/23 16:36 Temperature 97.2 F L 97.2 F L Temperature Source Temporal Temporal Pulse Rate 74 84 Respiratory Rate 15 16 Blood Pressure 151/71 H 151/70 H Blood Pressure Mean 97 97 Pulse Ox 96 97 Oxygen Delivery Method Room Air Room Air Weight Weight: 274 lb 4.081 oz Body Mass Index (BMI) 44.2 Physical Exam Narrative Physical Examination: General: Awake, alert, oriented x 3 and cooperative, seated upright hunched over purposely leaning forward in the ED bed as it causes less pain she notes, rates back pain 10 out of 10. Skin: Normal color, normal turgor, no icterus, no cyanosis. HEENT: AT/NC, EOMI, PERRLA, dry MM, no carotid bruits or JVD noted. Lungs: Diminished, distant, no evidence of any distress, no rales, ronchi or wheezing. Heart: Regular rate and rhythm; no gallop, rub audible. Abdomen: Soft, morbidly obese, NTTP, distant BS, no discern distention or HSM but habitus makes evaluation difficult. Extremities: No cyanosis, no clubbing, no marked peripheral pitting edema noted. Neurological: Patient awake, alert, oriented as noted, cognitive function intact; pupils equally reactive to light and accommodation, cranial nerves grossly normal, moving all 4 extremities except extremely limited especially right lower extremity with shooting pains elicited, no specific focal deficits but difficult exam as severely debilitated, strength severely globally decreased. Psychiatric: Affect appears severely uncomfortable, fatigued, tearful secondary to pain, no acute evidence of depressive or anxiety feelings. Results Lab / Micro Data 06/02/23 17:50 06/02/23 17:50 Labs: Laboratory Results - last 24 hr 06/02/23 17:50: WBC 14.1 H, RBC 4.03 L, Hgb 11.1 L, Hct 34.8 L, MCV 86.4, MCH 27.5, MCHC 31.9 L, RDW Std Deviation 42.9, RDW Coeff of Laila 13.8, Plt Count 370, MPV 9.0, Immature Gran % (Auto) 0.400, Neut % (Auto) 82.4 H, Lymph % (Auto) 8.3 L, [place] % (Auto) 7.0, Eos % (Auto) 1.5, Baso % (Auto) 0.4, Absolute Neuts (auto) 11.7 H, Absolute Lymphs (auto) 1.18, Nucleated RBC % 0 Assessment & Plan Assessment/Plan (1) Intractable back pain: PLAN: Plan The patient is a 67 y/o F w/ PMHx: Anxiety and Depression, PAF, IRIS on BIPAP, COPD, Former EtOH abuse, Former tobacco use, Morbid obesity, HTN, HLD, Chronic back pain with chronic radiculopathy and sciatic pain with several prior surgeries noted to be nearly wheelchair bound who presents to the [facility] ED on 06/02/2023 with persistent low back pain with right lower extremity shooting pain for at least the last 4 weeks seen previously in the emergency room and followed up with her primary care with unfortunately mechanical fall while she was on the toilet unfortunately getting wedged between the wall and the toilet but no heart dropped onto the floor but unable to safely take care of herself prompting family to bring her in for evaluation and consideration of skilled facility placement. #1. Adult FTT secondary to Acute Intractable Back Pain lumbar spine with right lower extremity radiculopathy with adult failure to thrive, debility, inability to ambulate: Will admit to [facility], maintain on fall precautions, frequent positioning, initiate IV toradol, lidoacine patches, tizanidine, medrol dose pack, po/IV narcotic pain regimen, anti-emetics, bowel regimen, increase her meghan apentin. Will request MRI of the lumbar spine but likely will not be able to perform until marked improvement in pain as she cannot lay flat. Also, significant history of claustrophobia thus need to clarify agents she may have as noted hives allergy to ativan. May need to consider consultation with pain management. Will consult PT and OT for evaluation as well as Case management for discharge planning. #2. Chronic normocytic anemia: Admission hemoglobin 11.1, MCV 86.4, baseline hemoglobin similar range, will continue to trend CBC. #3. Hypertension: Continue home regimen including valsartan, spironolactone, amlodipine, clonidine but clarifying, PRN hydralazine. #4. Hyperlipidemia: We will continue patient on statin therapy. #5. Anxiety and depression: We will continue patient home sertraline and hydroxyzine home regimen. #6. PAF: From current list does not appear to be on rate or rhythm agent, also does not appear to be on any anticoagulant therapy. Previously had been on both Xarelto and metoprolol 25 mg p.o. twice daily but does not appear to be taking this currently. If issues arise may restart. #7. Chronic COPD: Not on any chronic regimen, will place on ATC budesonide therapy, PRN albuterol, HOB, IS parameters. #8. Morbid Obesity: Weight loss and lifestyle changes encouraged. #9. Former alcohol abuse: Patient sober for 45 years, encourage continued compl ete sobriety. #10. Former tobacco use: Encourage continued tobacco cessation. #11. IRIS: BiPAP nightly. #12. DVT prophylaxis: Lovenox. #13. CODE status: Full code. Charges/Coding Visit Charges Inpatient E&M: 41895 Init Hosp L2
[2023-06-02 18:23] LABS: ALB/GLOB Ratio 0.9 RATIO (0.9-2.4); AST(SGOT) 54 U/L (15-37); Alanine Aminotransfer ALT/SGPT 43 U/L (13-56); Albumin, Serum 3.4 g/dL (3.2-5.0); Alkaline Phosphatase 105 U/L (45-117); Anion Gap 8 (5-15); BUN 28 mg/dL (7-18); BUN/Creat Ratio 45.4 RATIO (10-20); Calcium,Total 9.4 mg/dL (8.5-10.1); Chloride 106 mmol/L (98-107); Creatinine, Serum 0.62 mg/dL (0.55-1.02); EST Glomerular Filtration Rate 102 mL/min (>60); Est Glom Filt Rate - Afr Amer 123 mL/min (>60); Estimated Creatinine Clearance 89.41 ml/min; Globulin 3.6 g/dL (2.2-4.2); Glucose 104 mg/dL (74-106); Potassium 4.4 mmol/L (3.5-5.1); Sodium Level 139 mmol/L (136-145)
[2023-06-02 18:26] LABS: Color, Urine Yellow (Yellow); Glucose, Dipstick Normal (Normal); Ketone-Dipstick 50 mg/dl (Negative); Leukocyte Esterase-Dipstick 25 /ul (Negative); Nitrite-Dipstick Negative (Negative); Occult Blood-Urine 10 /ul (Negative); Protein-Dipstick 30 mg/dl (Negative); Urine Bilirubin Dipstick Negative (Negative); Urine Clarity Clear (Clear); Urine Urobilinogen 1 mg/dl (Normal)
[2023-06-02 18:32] LABS: Mucous, Urine 1+ /hpf (<or=2+); Red Blood Cells-Urine 0-5 SEEN /hpf (0-5)
[2023-06-02 18:33] LABS: Bacteria RARE /hpf (None Seen); White Blood Cells 0-5 SEEN /hpf (0-5)
--- NOTE | 2023-06-02 18:35 | RAD_ITS ---
INDICATION: pain EXAMINATION/TECHNIQUE: X-RAY - XR Spine Lumbar 2 or 3 Views COMPARISON: 05/02/2023 FINDINGS: VERTEBRAE: Preserved vertebral body height. No acute fracture. No spondylolisthesis. Loss of the normal lumbar lordosis. Severe multilevel facet arthropathy. Post surgical changes of the thoracic spine. DISCS: Severe multilevel degenerative disc disease and spondylosis. INCLUDED ABDOMEN: Included bowel gas pattern is non-obstructive. RAD/Lumbar Spine 2 or 3 Views IMPRESSION: No evidence of lumbar spinal fracture or spondylolisthesis. Severe multilevel degenerative disc disease and spondylosis. Electronically Signed: Indio Daniels MD at 19:35 EDT ,
[2023-06-02 19:00] VITALS: BP 142/100; PULSE 98; RESP 18; TEMP 36.7; O2SAT 98
[2023-06-02 20:26] VITALS: RESP 15; BMI 42.9
[2023-06-02 20:51] VITALS: BP 168/88; PULSE 106; RESP 18; TEMP 37.1; O2SAT 95
[2023-06-02] MEDS: Lidocaine 5% Patch 2 PATCH TOPICAL (21:26)
[2023-06-02] MEDS: Ketorolac 30 MG/ML Syringe IV (21:36)
[2023-06-02] MEDS: 0.9% Saline Lock 10 ML Syringe IV (21:37)
[2023-06-02] MEDS: cloNIDine HCl 0.1 MG Tablet PO (21:39)
[2023-06-02] MEDS: Enoxaparin 40 MG/0.4 ML Syringe SC (21:40)
[2023-06-02] MEDS: Losartan Potassium 25 MG Tablet PO (21:40)
[2023-06-02] MEDS: Atorvastatin Calcium 10 MG Tablet PO (21:40)
[2023-06-02] MEDS: Pramipexole Di-HCl 0.25 MG Tablet PO (21:41)
[2023-06-02] MEDS: hydrOXYzine PAM 25 MG Capsule PO (21:41)
--- NOTE | 2023-06-02 22:37 | CPS ---
Patient wears bipap at home. Does not want to wear one of our machines. Will have family bring home unit tomorrow.
[2023-06-03] MEDS: tiZANidine HCl 2 MG Tablet 4 MG PO ×2 (00:03→10:41)
[2023-06-03] MEDS: 0.9% Normal Saline (1000mL) 1,000 ML 100 ML IV (00:03)
[2023-06-03 00:12] VITALS: O2SAT 97
[2023-06-03] MEDS: MethylPREDNISolone DosePak 4 MG BOX PO ×5 (00:15→20:50)
[2023-06-03 03:21] VITALS: BMI 42.9
[2023-06-03 04:00] VITALS: BP 151/70; PULSE 78; RESP 15; TEMP 36.2; O2SAT 94
[2023-06-03 05:27] LABS: Absolute Lymphocyte Count 0.55 X10^3/uL (0.83-4.51); Absolute Neutrophil Count 9.5 X10^3/uL (2.0-7.7); Basophil# 0.04 X10^3/uL; Basophil% 0.4 % (0-1); Eosinophil# 0.09 X10^3/uL; Eosinophils% 0.9 % (0-5); Hematocrit 33.4 % (37-47); Hemoglobin 10.3 g/dL (12.0-15.0); Lymphocyte # 0.55 X10^3/ul (0.83-4.51); Lymphocyte % 5.3 % (19-41); Mean Corp Hgb Conc 30.8 g/dL (32-36); Mean Corpuscular Hgb 26.9 pg (27.0-32.0); Mean Corpuscular Volume 87.2 fL (81-99); Mean Platelet Vol. 9.4 fl (6.2-12.0); Monocyte# 0.21 X10^3/uL; NRBC Flagged by Analyzer 0 % (0-5); Neutrophil # 9.48 X10^3/uL (2.7-7.7); Neutrophil % 90.7 % (47-70); POSITIVE DIFFERENTIAL YES; Platelet Count 336 K/mm3 (150-450); RBC Distribution Width CV 13.9 % (11.6-14.6); RBC Distribution Width SD 43.8 fl (35.1-43.9); Red Blood Count 3.83 M/mm3 (4.2-5.4); White Blood Count 10.4 K/mm3 (4.4-11.0)
[2023-06-03 05:50] LABS: ALB/GLOB Ratio 0.9 RATIO (0.9-2.4); AST(SGOT) 43 U/L (15-37); Alanine Aminotransfer ALT/SGPT 42 U/L (13-56); Albumin, Serum 3.1 g/dL (3.2-5.0); Alkaline Phosphatase 101 U/L (45-117); Anion Gap 3 (5-15); BUN 24 mg/dL (7-18); BUN/Creat Ratio 42.7 RATIO (10-20); Calcium,Total 9.3 mg/dL (8.5-10.1); Chloride 106 mmol/L (98-107); Creatinine, Serum 0.56 mg/dL (0.55-1.02); EST Glomerular Filtration Rate 114 mL/min (>60); Est Glom Filt Rate - Afr Amer 137 mL/min (>60); Estimated Creatinine Clearance 87.82 ml/min; Globulin 3.5 g/dL (2.2-4.2); Glucose 144 mg/dL (74-106); Potassium 4.5 mmol/L (3.5-5.1); Protein, Total 6.6 g/dL (6.4-8.2); Sodium Level 136 mmol/L (136-145)
[2023-06-03] MEDS: Ketorolac 30 MG/ML Syringe IV ×3 (05:58→20:51)
--- NOTE | 2023-06-03 06:50 | PN.HOSP_ITS ---
Reason for Visit Reason for Visit: Diagnoses Dorsalgia, unspecified (06/02/23) Subjective Subjective Patient per staff overnight and also per self with significant improvement of her pain although she still has some discomfort especially when she tends to move and rearrange herself in the bed but rated much less 5-6 out of 10 and its only during specific times and she is more comfortable at rest. She has been able to move her bed back and is laying down more but not flat as of yet. She still does have some intermittent occasional sharp shooting pains down her right leg. Discussed plan of care which included continuation of these medications but also plan to assess if she is able to lay flat during the day for potential MRI with plan to trial Versed for anxiety with claustrophobia. Patient denies fevers, chills, nausea, emesis, abdominal pain, chest pain or dyspnea. Objective Data Objective Data Vital Signs: Vital Signs Temp Pulse Resp BP Pulse Ox O2 Del Method 97.2 F L 78 15 151/70 H 94 Room Air 06/03/23 04:00 06/03/23 04:00 06/03/23 04:00 06/03/23 04:00 06/03/23 04:00 06/03/23 04:00 Oxygen Delivery Method Room Air Weight: 265 lb 14.04 oz Body Mass Index (BMI) 42.9 Intake & Output: Intake and Output for Last 24 Hours 06/01/23 06/02/23 06/03/23 23:59 23:59 23:59 Intake Total 200 / 200 Balance 200 / 200 Lab / Micro Data 06/03/23 05:05 06/03/23 05:05 Labs: Laboratory Results - last 24 hr 06/02/23 17:50: WBC 14.1 H, RBC 4.03 L, Hgb 11.1 L, Hct 34.8 L, MCV 86.4, MCH 27.5, MCHC 31.9 L, RDW Std Deviation 42.9, RDW Coeff of Laila 13.8, Plt Count 370, MPV 9.0, Immature Gran % (Auto) 0.400, Neut % (Auto) 82.4 H, Lymph % (Auto) 8.3 L, [place] % (Auto) 7.0, Eos % (Auto) 1.5, Baso % (Auto) 0.4, Absolute Neuts (auto) 11.7 H, Absolute Lymphs (auto) 1.18, Nucleated RBC % 0, Sodium 139, Potassium 4.4, Chloride 106, Carbon Dioxide 25.0, Anion Gap 8, BUN 28 H, Creatinine 0.62, Estim Creat Clear Calc 89.41, Est GFR (MDRD) Af Amer 123, Est GFR (MDRD) Non-Af 102, BUN/Creatinine Ratio 45.4 H, Glucose 104, Calcium 9.4, Total Bilirubin 0.60, AST 54 H, ALT 43, Alkaline Phosphatase 105, Total Protein 7.0, Albumin 3.4, Globulin 3.6, Albumin/Globulin Ratio 0.9, Urine Color Yellow, Urine Clarity Clear, Urine pH 6.0, Ur Specific Sunset 1.020, Urine Protein 30 H, Urine Glucose (UA) Normal, Urine Ketones 50 H, Urine Occult Blood 10 H, Urine Nitrite Negative, Urine Bilirubin Negative, Urine Urobilinogen 1 H, Ur Leukocyte Esterase 25 H, Urine RBC 0-5 SEEN, Urine WBC 0-5 SEEN, Ur Squamous Epith Cells 0 SEEN, Urine Bacteria RARE, Urine Mucus 1+ 06/03/23 05:05: WBC 10.4, RBC 3.83 L, Hgb 10.3 L, Hct 33.4 L, MCV 87.2, MCH 26.9 L, MCHC 30.8 L, RDW Std Deviation 43.8, RDW Coeff of Laila 13.9, Plt Count 336, MPV 9.4, Immature Gran % (Auto) 0.700, Neut % (Auto) 90.7 H, Lymph % (Auto) 5.3 L, Barren % (Auto) 2.0, Eos % (Auto) 0.9, Baso % (Auto) 0.4, Absolute Neuts (auto) 9.5 H, Absolute Lymphs (auto) 0.55 L, Nucleated RBC % 0, Sodium 136, Potassium 4.5, Chloride 106, Carbon Dioxide 27.0, Anion Gap 3 L, BUN 24 H, Creatinine 0 .56, Estim Creat Clear Calc 87.82, Est GFR (MDRD) Af Amer 137, Est GFR (MDRD) Non-Af 114, BUN/Creatinine Ratio 42.7 H, Glucose 144 H, Calcium 9.3, Total B ilirubin 0.60, AST 43 H, ALT 42, Alkaline Phosphatase 101, Total Protein 6.6, Albumin 3.1 L, Globulin 3.5, Albumin/Globulin Ratio 0.9 Radiography Diagnostic Testing: Radiology Impression Lumbar Spine X-Ray 06/02/23 18:35 IMPRESSION: No evidence of lumbar spinal fracture or spondylolisthesis. Severe multilevel degenerative disc disease and spondylosis. Electronically Signed: Indio Daniels MD at 19:35 EDT , Physical Exam Narrative Physical Examination: General: Patient sleeping initially upon evaluation but awoken and alert and oriented and much more comfortable appearing the day prior, oriented x 3. Skin: Normal color, normal turgor, no icterus, no cyanosis. HEENT: AT/NC, EOMI, PERRLA, MMM. Lungs: Diminished, distant, no evidence of any distress, no rales, ronchi or wheezing. Heart: Regular rate and rhythm; no gallop, rub audible. Abdomen: Soft, morbidly obese, NTTP, distant BS. Extremities: No cyanosis, no clubbing, no marked peripheral pitting edema noted. Neurological: Patient awake, alert, oriented as noted, cognitive function intact; pupils equally reactive to light and accommodation, cranial nerves grossly normal, patient moving in the bed with greater ease but she does still have some discomfort to the back as well as right lower extremity with movement but able to move with greater ease and she is laying back more as the day prior she was hunched forward to alleviate her discomfort, strength still severely globally decreased. Psychiatric: Affect appears more comfortable, initially was sleeping and awoke reporting her pain is better, still present when she moves, notes she was at least able to sleep for duration of time, mildly fatigued appearing, no acute ev idence of depressive or anxiety feelings. Assessment & Plan Assessment/Plan (1) Intractable back pain: PLAN: Plan The patient is a 67 y/o F w/ PMHx: Anxiety and Depression, PAF, IRIS on BIPAP, COPD, Former EtOH abuse, Former tobacco use, Morbid obesity, HTN, HLD, Chronic back pain with chronic radiculopathy and sciatic pain with several prior surgeries noted to be nearly wheelchair bound who presents to the [facility] ED on 06/02/2023 with persistent low back pain with right lower extremity shooting pain for at least the last 4 weeks seen previously in the emergency room and followed up with her primary care with unfortunately mechanical fall while she was on the toilet unfortunately getting wedged between the wall and the toilet but no heart dropped onto the floor but unable to safely take care of herself prompting family to bring her in for evaluation and consideration of skilled facility [facility]. #1. Adult FTT secondary to Acute Intractable Back Pain lumbar spine with right lower extremity radiculopathy with adult failure to thrive, debility, inability to ambulate: Admitted to [place], maintain on fall precautions, frequent positioning, given improvement of symptoms at this time will continue scheduled short course IV toradol, maintained on lidoacine patches, tizanidine, medrol dose pack, po/IV narcotic pain regimen, anti-emetics, bowel regimen, increase her gabapentin. MRI lumbar spine requested however will need to assess patient under stroke she can lay flat prior to attempt. Will have low-dose Versed as needed to which she is willing to try for anxiety secondary to claustrophobia with MRI. May need to consider consultation with pain management. Will consult PT and OT for evaluation as well as Case management for discharge planning. #2. Chronic normocytic anemia: Admission hemoglobin 11.1, MCV 86.4, baseline hemoglobin similar range, 06/03/2023 hemoglobin 10.3, continue to trend. #3. Hypertension: Continue home regimen including valsartan, spironolactone, amlodipine, clonidine but clarifying, PRN hydralazine. #4. Hyperlipidemia: We will continue patient on statin therapy. #5. Anxiety and depression: We will continue patient home sertraline and hydroxyzine home regimen. #6. PAF: From current list does not appear to be on rate or rhythm agent, also does not appear to be on any anticoagulant therapy. Previously had been on both Xarelto and metoprolol 25 mg p.o. twice daily but does not appear to be taking this currently. If issues arise may restart. #7. Chronic COPD: Not on any chronic regimen, will place on ATC budesonide therapy, PRN albuterol, HOB, IS parameters. #8. Morbid Obesity: Weight loss and lifestyle changes encouraged. #9. Former alcohol abuse: Patient sober for 45 years, encourage continued complete sobriety. #10. Former tobacco use: Encourage continued tobacco cessation. #11. IRIS: BiPAP nightly. #12. DVT prophylaxis: Lovenox. #13. CODE status: Full code. Charges/Coding Visit Charges Inpatient E&M: 44245 Init Hosp L2
[2023-06-03 09:47] VITALS: BP 141/71; PULSE 96; RESP 18; TEMP 36.6; O2SAT 99
[2023-06-03] MEDS: Spironolactone 25 MG Tablet PO (09:53)
[2023-06-03] MEDS: Enoxaparin 40 MG/0.4 ML Syringe SC ×2 (09:54→20:50)
[2023-06-03] MEDS: cloNIDine HCl 0.1 MG Tablet PO ×2 (09:54→20:49)
[2023-06-03] MEDS: Docusate Sodium 100 MG Capsule PO (09:54)
[2023-06-03] MEDS: Sertraline 100 MG Tablet PO (09:54)
[2023-06-03] MEDS: amLODIPine 10 MG Tablet PO (09:55)
[2023-06-03] MEDS: Gabapentin 600 MG Tablet PO ×3 (10:01→18:17)
[2023-06-03] MEDS: Losartan Potassium 50 MG Tablet PO (10:01)
[2023-06-03] MEDS: oxyCODONE 5 MG Tablet 10 MG PO (10:43)
[2023-06-03] MEDS: 0.9% Saline Lock 10 ML Syringe IV ×2 (10:44→14:00)
[2023-06-03] MEDS: HYDROmorphone 0.5 MG/0.5 ML SYRINGE IV (10:44)
[2023-06-03] MEDS: Senna/Docusate Sodium 1 Tablet 2 TABLET PO (13:53)
[2023-06-03 14:04] VITALS: BP 96/58; PULSE 80; RESP 17; TEMP 36.7; O2SAT 94
--- NOTE | 2023-06-03 15:18 | CASEMGMT ---
RN CM in to discuss RENNER form with patient. RN CM explained RENNER form, patient voiced understanding. Pt signed form and filed in chart. Pt provided with a copy of signed RENNER form. Patient had no further questions or concerns at this time. Sia Nix MSN, RN, CCM
--- NOTE | 2023-06-03 17:00 | CASEMGMT ---
Social Work - SDOH assessment/Discharge planning SDOH screening completed. Denies any concerns at this time, or need for additional resources. Does use [employer] for transportation. The only concern with housing right now would be patient's functional status and patient managing at home alone, not the home environment itself. Broached discharge planning with patient who reports has been to [facility] and [facility] in the past. Reports would like to, if needed, go to one of these facilities at discharge. Patient reports to be in much pain right now, and unsure what next step interventions will be. Reports to have a MRI scheduled for Monday, and after that time will know more. Gently broached that patient is currently observation status, and if remains in this status SNF level of care would be a private pay rate. Patient not yet ready to discuss discharge plans further, in light pain issues, limited movement and waiting on MRI. Patient expressed concern/thought that may need some type of surgical intervention. Supportive listening and emotional support offered. Plan: To be determined. SW to follow and assist as indicated. -DYLAN Burns
[2023-06-03 20:00] VITALS: BP 163/74; PULSE 99; RESP 15; TEMP 36.9; O2SAT 94
[2023-06-03] MEDS: Atorvastatin Calcium 10 MG Tablet PO (20:50)
[2023-06-03] MEDS: Losartan Potassium 25 MG Tablet PO (20:50)
[2023-06-03] MEDS: Pramipexole Di-HCl 0.25 MG Tablet PO (20:51)
[2023-06-03] MEDS: hydrOXYzine PAM 25 MG Capsule PO (20:52)
[2023-06-04] VITALS (8 sets, daily range): BP systolic 123–163; BP diastolic 68–74; PULSE 77–90; RESP 15–20; TEMP 36.5–37.1; O2SAT 92–97; BMI 42.4
[2023-06-04 05:52] LABS: Absolute Lymphocyte Count 0.63 X10^3/uL (0.83-4.51); Absolute Neutrophil Count 10.1 X10^3/uL (2.0-7.7); Basophil# 0.04 X10^3/uL; Basophil% 0.4 % (0-1); Hematocrit 35.1 % (37-47); Lymphocyte # 0.63 X10^3/ul (0.83-4.51); Lymphocyte % 5.6 % (19-41); Mean Corp Hgb Conc 31.3 g/dL (32-36); Mean Corpuscular Hgb 27.4 pg (27.0-32.0); Mean Corpuscular Volume 87.5 fL (81-99); Mean Platelet Vol. 9.2 fl (6.2-12.0); Monocyte# 0.37 X10^3/uL; Monocyte% 3.3 % (0-10); NRBC Flagged by Analyzer 0 % (0-5); Neutrophil # 10.05 X10^3/uL (2.7-7.7); Neutrophil % 89.8 % (47-70); Platelet Count 366 K/mm3 (150-450); RBC Distribution Width CV 13.5 % (11.6-14.6); RBC Distribution Width SD 43.4 fl (35.1-43.9); Red Blood Count 4.01 M/mm3 (4.2-5.4); White Blood Count 11.2 K/mm3 (4.4-11.0)
[2023-06-04] MEDS: Ketorolac 30 MG/ML Syringe IV (06:07)
[2023-06-04 06:15] LABS: ALB/GLOB Ratio 0.8 RATIO (0.9-2.4); AST(SGOT) 29 U/L (15-37); Alanine Aminotransfer ALT/SGPT 39 U/L (13-56); Albumin, Serum 2.7 g/dL (3.2-5.0); Alkaline Phosphatase 94 U/L (45-117); Anion Gap 2 (5-15); BUN 17 mg/dL (7-18); BUN/Creat Ratio 32.2 RATIO (10-20); Chloride 105 mmol/L (98-107); Creatinine, Serum 0.53 mg/dL (0.55-1.02); EST Glomerular Filtration Rate 122 mL/min (>60); Est Glom Filt Rate - Afr Amer 148 mL/min (>60); Estimated Creatinine Clearance 87.82 ml/min; Globulin 3.6 g/dL (2.2-4.2); Glucose 158 mg/dL (74-106); Potassium 4.9 mmol/L (3.5-5.1); Protein, Total 6.3 g/dL (6.4-8.2); Sodium Level 136 mmol/L (136-145)
--- NOTE | 2023-06-04 07:05 | PN.HOSP_ITS ---
Reason for Visit Reason for Visit: Diagnoses Dorsalgia, unspecified (06/02/23) Subjective Subjective Patient notes that her pain continues to improve and it has been several hours since she needed any type of overlapping pain medication. She notes that she did try to lay flat the day prior however she still had significant pain and this was done at the end of the day and she feels as though her pain is worse at that point thus MRI was deferred. Discussed plan of care and what she thinks is best is to attempt to obtain MRI of the back early in the morning and if this is not able to be obtained because of pain still and inability to lay flat then low threshold to involve pain management for consideration of injection if able to which she is amenable. Patient denies fevers, chills, nausea, emesis, abdominal pain, chest pain or dyspnea. Objective Data Objective Data Vital Signs: Vital Signs Temp Pulse Resp BP Pulse Ox O2 Del Method O2 Flow Rate 98.1 F 77 15 163/72 H 93 CPAP 2 06/04/23 03:00 06/04/23 03:00 06/04/23 03:00 06/04/23 03:00 06/04/23 03:00 06/04/23 03:00 06/03/23 09:47 Oxygen Flow Rate (L/min) 2 Oxygen Delivery Method CPAP Weight: 264 lb 1.82 oz Body Mass Index (BMI) 42.4 Intake & Output: Intake and Output for Last 24 Hours 06/02/23 06/03/23 06/04/23 23:59 23:59 23:59 Intake Total 1920 / 1920 Output Total 700 / 900 400 / 400 Balance 1220 / 1020 -400 / -400 Lab / Micro Data 06/04/23 05:28 06/04/23 05:28 Labs: Laboratory Results - last 24 hr 06/04/23 05:28: WBC 11.2 H, RBC 4.01 L, Hgb 11.0 L, Hct 35.1 L, MCV 87.5, MCH 27.4, MCHC 31.3 L, RDW Std Deviation 43.4, RDW Coeff of Laila 13.5, Plt Count 366, MPV 9.2, Immature Gran % (Auto) 0.900, Neut % (Auto) 89.8 H, Lymph % (Auto) 5.6 L, [place] % (Auto) 3.3, Eos % (Auto) 0.0, Baso % (Auto) 0.4, Absolute Neuts (auto) 10.1 H, Absolute Lymphs (auto) 0.63 L, Nucleated RBC % 0, Sodium 136, Potassium 4.9, Chloride 105, Carbon Dioxide 29.0, Anion Gap 2 L, BUN 17, Creatinine 0.53 L , Estim Creat Clear Calc 87.82, Est GFR (MDRD) Af Amer 148, Est GFR (MDRD) Non- Af 122, BUN/Creatinine Ratio 32.2 H, Glucose 158 H, Calcium 9.0, Total Bilirubin 0.40, AST 29, ALT 39, Alkaline Phosphatase 94, Total Protein 6.3 L, Albumin 2.7 L, Globulin 3.6, Albumin/Globulin Ratio 0.8 L Physical Exam Narrative Physical Examination: General: Awake, alert, oriented x 3, comfortable appearing, eating breakfast, notes pain continues to improve, still some discomfort with sharp pain to the right lower extremity primarily with movements but much better. Skin: Normal color, normal turgor, no icterus, no cyanosis. HEENT: AT/NC, EOMI, PERRLA, MMM. Lungs: Diminished, distant, no evidence of any distress, no rales, ronchi or wheezing. Heart: Regular rate and rhythm; no gallop, rub audible. Abdomen: Soft, morbidly obese, NTTP, distant BS. Extremities: No cyanosis, no clubbing, no marked peripheral pitting edema noted. Neurological: Patient awake, alert, oriented as noted, cognitive function intact; pupils equally reactive to light and accommodation, cranial nerves grossly normal, patient eating, moving the bed with greater ease, does still note some discomfort with shooting pains occasionally down the right leg, strength improving but still moderately to severely globally decreased. Psychiatric: Affect appears more comfortable, eating breakfast, no acute distress, no acute evidence of depressive or anxiety feelings. Assessment & Plan Assessment/Plan (1) Intractable back pain: PLAN: Plan The patient is a 67 y/o F w/ PMHx: Anxiety and Depression, PAF, IRIS on BIPAP, COPD, Former EtOH abuse, Former tobacco use, Morbid obesity, HTN, HLD, Chronic back pain with chronic radiculopathy and sciatic pain with several prior tonia geries noted to be nearly wheelchair bound who presents to the [facility] ED on 06/02/2023 with persistent low back pain with right lower extremity shooting pain for at least the last 4 weeks seen previously in the emergency room and followed up with her primary care with unfortunately mechanical fall while she was on the toilet unfortunately getting wedged between the wall and the toilet but no heart dropped onto the floor but unable to safely take care of herself prompting family to bring her in for evaluation and consideration of skilled facility placement. #1. Adult FTT secondary to Acute Intractable Back Pain lumbar spine with right lower extremity radiculopathy with adult failure to thrive, debility, inability to ambulate: Admitted to [place], maintain on fall precautions, frequent positioning, given improvement of symptoms at this time will continue scheduled short course IV toradol, maintained on lidocaine patches, tizanidine, medrol dose pack, po/IV narcotic pain regimen, anti-emetics, bowel regimen, increase her gabapentin. Attempted patient to lay flat 06/02 for MRI lumbar spine; however, pain still notable and unable. Will need to reattempt Monday; however, if patient still having issues would plan consultation with pain management for consideration intervention. PT/OT/CM consulted for discharge planning. #2. Chronic normocytic anemia: Admission hemoglobin 11.1, MCV 86.4, baseline hemoglobin similar range, 06/04/23 Hgb 11, MCV 87.5. #3. Hypertension: Continue home regimen including valsartan, spironolactone, amlodipine, clonidine but clarifying, PRN hydralazine. #4. Hyperlipidemia: We will continue patient on statin therapy. #5. Anxiety and depression: We will continue patient home sertraline and hydroxyzine home regimen. #6. PAF: From current list does not appear to be on rate or rhythm agent, also does not appear to be on any anticoagulant therapy. Previously had been on both Xarelto and metoprolol 25 mg p.o. twice daily but does not appear to be taking this currently. If issues arise may restart. #7. Chronic COPD: Not on any chronic regimen, will place on ATC budesonide therapy, PRN albuterol, HOB, IS parameters. #8. Morbid Obesity: Weight loss and lifestyle changes encouraged. #9. Former alcohol abuse: Patient sober for 45 years, encourage continued complete sobriety. #10. Former tobacco use: Encourage continued tobacco cessation. #11. IRIS: BiPAP nightly. #12. DVT prophylaxis: Lovenox. #13. CODE status: Full code. Charges/Coding Visit Charges Inpatient E&M: 97152 Subs Hosp L2
[2023-06-04] MEDS: MethylPREDNISolone DosePak 4 MG BOX PO ×4 (08:17→21:35)
[2023-06-04] MEDS: Gabapentin 600 MG Tablet PO ×3 (08:17→16:10)
[2023-06-04] MEDS: Enoxaparin 40 MG/0.4 ML Syringe SC ×2 (08:19→21:38)
[2023-06-04] MEDS: amLODIPine 10 MG Tablet PO (08:20)
[2023-06-04] MEDS: Docusate Sodium 100 MG Capsule PO (08:21)
[2023-06-04] MEDS: Spironolactone 25 MG Tablet PO (08:21)
[2023-06-04] MEDS: cloNIDine HCl 0.1 MG Tablet PO ×2 (08:22→21:37)
[2023-06-04] MEDS: Sertraline 100 MG Tablet PO (08:22)
[2023-06-04] MEDS: tiZANidine HCl 2 MG Tablet 4 MG PO ×2 (08:26→16:31)
[2023-06-04] MEDS: Losartan Potassium 50 MG Tablet PO (08:26)
[2023-06-04] MEDS: oxyCODONE 5 MG Tablet 10 MG PO (08:27)
[2023-06-04] MEDS: hydrOXYzine PAM 25 MG Capsule PO (21:35)
[2023-06-04] MEDS: Pramipexole Di-HCl 0.25 MG Tablet PO (21:37)
[2023-06-04] MEDS: Losartan Potassium 25 MG Tablet PO (21:37)
[2023-06-04] MEDS: Atorvastatin Calcium 10 MG Tablet PO (21:37)
[2023-06-04] MEDS: Acetaminophen 325 MG Tablet 650 MG PO (23:21)
[2023-06-05] VITALS (12 sets, daily range): BP systolic 127–165; BP diastolic 62–92; PULSE 72–110; RESP 11–24; TEMP 36.6–37.3; O2SAT 94–99
[2023-06-05 06:42] LABS: Absolute Lymphocyte Count 1.25 X10^3/uL (0.83-4.51); Absolute Neutrophil Count 9.4 X10^3/uL (2.0-7.7); Basophil# 0.04 X10^3/uL; Basophil% 0.4 % (0-1); Eosinophil# 0.05 X10^3/uL; Eosinophils% 0.4 % (0-5); Hematocrit 36.4 % (37-47); Hemoglobin 11.4 g/dL (12.0-15.0); Lymphocyte # 1.25 X10^3/ul (0.83-4.51); Mean Corp Hgb Conc 31.3 g/dL (32-36); Mean Corpuscular Hgb 27.1 pg (27.0-32.0); Mean Corpuscular Volume 86.7 fL (81-99); Mean Platelet Vol. 9.2 fl (6.2-12.0); Monocyte% 5.3 % (0-10); NRBC Flagged by Analyzer 0 % (0-5); Neutrophil % 82.4 % (47-70); Platelet Count 416 K/mm3 (150-450); RBC Distribution Width CV 13.4 % (11.6-14.6); RBC Distribution Width SD 41.7 fl (35.1-43.9); White Blood Count 11.4 K/mm3 (4.4-11.0)
[2023-06-05 07:22] LABS: ALB/GLOB Ratio 0.8 RATIO (0.9-2.4); AST(SGOT) 28 U/L (15-37); Alanine Aminotransfer ALT/SGPT 44 U/L (13-56); Alkaline Phosphatase 101 U/L (45-117); Anion Gap 3 (5-15); BUN 17 mg/dL (7-18); BUN/Creat Ratio 29.1 RATIO (10-20); Calcium,Total 9.3 mg/dL (8.5-10.1); Chloride 102 mmol/L (98-107); Creatinine, Serum 0.58 mg/dL (0.55-1.02); EST Glomerular Filtration Rate 108 mL/min (>60); Est Glom Filt Rate - Afr Amer 131 mL/min (>60); Estimated Creatinine Clearance 87.49 ml/min; Globulin 3.7 g/dL (2.2-4.2); Glucose 124 mg/dL (74-106); Potassium 4.7 mmol/L (3.5-5.1); Protein, Total 6.7 g/dL (6.4-8.2); Sodium Level 136 mmol/L (136-145)
[2023-06-05] MEDS: Spironolactone 25 MG Tablet PO (08:58)
[2023-06-05] MEDS: Docusate Sodium 100 MG Capsule PO (08:58)
[2023-06-05] MEDS: cloNIDine HCl 0.1 MG Tablet PO ×2 (08:58→20:52)
[2023-06-05] MEDS: Enoxaparin 40 MG/0.4 ML Syringe SC ×2 (08:58→20:53)
[2023-06-05] MEDS: Sertraline 100 MG Tablet PO (08:58)
[2023-06-05] MEDS: MethylPREDNISolone DosePak 4 MG BOX PO ×3 (09:00→20:54)
[2023-06-05] MEDS: Gabapentin 600 MG Tablet PO ×3 (09:05→16:07)
[2023-06-05] MEDS: oxyCODONE 5 MG Tablet 10 MG PO (09:05)
[2023-06-05] MEDS: amLODIPine 10 MG Tablet PO (09:08)
--- NOTE | 2023-06-05 09:30 | MRI_ITS ---
STUDY: MRI LUMBAR SPINE WITHOUT CONTRAST REASON FOR EXAM: Female, 67 years old. Intractable back pain TECHNIQUE: Standardized fat and water weighted pulse sequences were obtained in the sagittal and axial planes. COMPARISON: Lumbar x-ray dated June 02, 2023 FINDINGS: Normal lumbar lordosis. There is a levoscoliosis of the lumbar spine. Normal conus medullaris that terminates at the T12-L1 level. Reidentification of chronic compression deformities of T10, T11, and T12. Stable the pedicle screws and fusion rods at T10-T11. Redemonstration of chronic bilateral pars and articularis defects at L5. T12-L1: Moderate disc space narrowing with diffuse disc bulge. Moderate Modic endplate degenerative signal and changes. Superimposed left paracentral disc protrusion with left lateral recess stenosis and nerve root compression. Mild to moderate central canal stenosis. Moderate facet joint hypertrophy. Moderate bilateral foraminal stenosis with nerve root compression. L1-2: Severe disc space narrowing with a diffuse disc bulge/spur complex causing bilateral lateral recess stenosis and mild central canal stenosis. Normal bilateral facet joints. Normal bilateral intervertebral neural foramina. L2-3: Severe disc space narrowing with a diffuse disc osteophyte complex and mild facet joint hypertrophy contributing to mild central canal stenosis. Mild bilateral foraminal stenosis. L3-4: Moderate to severe disc space narrowing with a diffuse disc bulge/spur complex eccentric to the left. Left lateral recess stenosis with nerve root compression. Moderate central canal stenosis. Severe left foraminal stenosis. Moderate right foraminal stenosis. Moderate facet joint hypertrophy. L4-5: Diffuse disc desiccation with mild posterior disc space narrowing and annular bulging with a large amount of extruded disc material traveling in the midline and left paracentral region into the left lateral recess in the inferior subligamentous space that travels down to the L5-S1 level. Severe left lateral recess stenosis with nerve root compression as well as severe central canal stenosis is present at the inferior aspect of the disc space. Moderate bilateral facet joint hypertrophy. Severe bilateral foraminal stenosis with nerve root compression. L5-S1: Severe disc space narrowing with diffuse disc bulges/spur complex. Mild Modic endplate degenerative signal. Anterolisthesis of L5 on S1 of 7.4 mm maximally. Posterior annular bulging. Large (1.63 cm) amount of extruded material in the midline to left lateral recess region which appears to represent material originating from the L4-L5 disc space that is travels inferiorly resulting and left lateral recess stenosis and severe central canal stenosis with posterior displacement of the thecal sac. The right lateral recess is normal. Moderate facet joint hypertrophy. Small amounts of extruded fluid at the posterior aspect of the facet joints. Moderate to severe right foraminal stenosis with nerve root compression. Moderate left foraminal stenosis with nerve root compression. Normal visualized sacral ala. There is mild paraspinal muscular atrophy. MRI/Spine Lumbar (Routine) IMPRESSION: 1. Multilevel moderate to severe degenerative changes, as described above. 2. Severe central canal stenosis at L4-L5 and L5-S1 3. Large amount of extruded disc material originating from L4-L5 traveling down to the L5-S1 space Electronically Signed: Sergio Gutiérrez MD at 13:06 EDT ,
[2023-06-05] MEDS: Midazolam 2 MG/2 ML Syringe 1 MG IV (09:49)
--- NOTE | 2023-06-05 11:02 | PN.HOSP_ITS ---
Reason for Visit Reason for Visit: Diagnoses Dorsalgia, unspecified (06/02/23) Objective Data Objective Data Vital Signs: Vital Signs Temp Pulse Resp BP Pulse Ox O2 Del Method O2 Flow Rate 98.3 F 110 H 12 149/62 H 98 Nasal Cannula 2 06/05/23 08:51 06/05/23 10:37 06/05/23 10:37 06/05/23 10:37 06/05/23 10:37 06/05/23 10:37 06/05/23 10:37 Oxygen Flow Rate (L/min) 2 Oxygen Delivery Method Nasal Cannula Weight: 264 lb 1.82 oz Body Mass Index (BMI) 42.4 Intake & Output: Intake and Output for Last 24 Hours 06/03/23 06/04/23 06/05/23 23:59 23:59 23:59 Intake Total 1920 / 1920 500 / 800 400 / 400 Output Total 700 / 900 750 / 2200 3150 / 3150 Balance 1220 / 1020 -250 / -1400 -2750 / -2750 Lab / Micro Data 06/05/23 06:05 06/05/23 06:05 Labs: Laboratory Results - last 24 hr 06/05/23 06:05: WBC 11.4 H, RBC 4.20, Hgb 11.4 L, Hct 36.4 L, MCV 86.7, MCH 27. 1, MCHC 31.3 L, RDW Std Deviation 41.7, RDW Coeff of Laila 13.4, Plt Count 416, MPV 9.2, Immature Gran % (Auto) 0.500, Neut % (Auto) 82.4 H, Lymph % (Auto) 11.0 L, Walker % (Auto) 5.3, Eos % (Auto) 0.4, Baso % (Auto) 0.4, Absolute Neuts (auto) 9.4 H, Absolute Lymphs (auto) 1.25, Nucleated RBC % 0, Sodium 136, Potassium 4.7, Chloride 102, Carbon Dioxide 31.0, Anion Gap 3 L, BUN 17, Creatinine 0.58, Estim Creat Clear Calc 87.49, Est GFR (MDRD) Af Amer 131, Est GFR (MDRD) Non-Af 108, BUN/Creatinine Ratio 29.1 H, Glucose 124 H, Calcium 9.3, Total Bilirubin 0.40, AST 28, ALT 44, Alkaline Phosphatase 101, Total Protein 6.7, Albumin 3.0 L , Globulin 3.7, Albumin/Globulin Ratio 0.8 L Physical Exam Narrative Seen and examined. Patient had MRI of lower back in the morning. Complain of back pain, sciatica in nature with radiation to RLE for past 4 weeks status post several back surgeries. Physical exam General: Alert, Oriented x3, Cooperative HEENT: Atraumatic, PERRLA, EOMI, Normocephalic Oral: Oral mucosa dry. No Gingival or Mucosal Lesions/ Ulcerations Neck: Supple, No JVD, Negative Carotid Bruits Chest wall/Lungs: Air entry diminished in bilateral lung bases. No crepitation/rhonchi Cardiovascular: Irregular rhythm, Normal S1, Normal S2, systolic murmur Abdomen: Bowel Sounds Present, Soft, Non Tender, Non-Distended : No dysuria. No renal angle tenderness. No suprapubic tenderness. Extremities: No edema, Capillary Refill Less than 3 Seconds Skin: No rashes, No breakdown Musculoskeletal: Tenderness present over LS region. ROM restricted lumbar region. Difficulty laying flat/painful Neurological: Cranial nerves II-XII grossly intact, DTR 2+/4. No acute focal neurological deficit. Psych/Mental Status: Flat affect, crying. Assessment & Plan Assessment/Plan (1) Intractable back pain: PLAN: Plan The patient is a 67 y/o F came to ED with low back pain and right lower extremity pain for about 1 month. History of 2 back surgeries in the past. Patient in wheelchair. She also has disequilibrium/loss of balance and near fall situation, guarded weight between the wall of the toilet on day of admission #1. Adult FTT secondary to Acute Intractable Back Pain lumbar spine with right lower extremity radiculopathy with adult failure to thrive, debility, inability to ambulate: Patient being admitted on [facility] floor. PT and OT. Pain control, gabapentin, bowel regimen. Patient not able to lay flat for MRI lumbar spine, on the weekend but had MRI today in the morning #2. Chronic normocytic anemia: Admission hemoglobin 11.1, MCV 86.4, baseline hemoglobin similar range, 06/04/23 Hgb 11, MCV 87.5. #3. Hypertension: Continue home regimen including valsartan, spironolactone, amlodipine, clonidine but clarifying, PRN hydralazine. #4. Hyperlipidemia: continue patient on statin therapy. #5. Anxiety and depression: We will continue patient home sertraline and hydroxyzine home regimen. #6. PAF: From current list does not appear to be on rate or rhythm agent, also does not appear to be on any anticoagulant therapy. Previously had been on both Xarelto and metoprolol 25 mg p.o. twice daily but does not appear to be taking this currently. If issues arise may restart. #7. c COPD: Not on any chronic regimen, will place on ATC budesonide therapy, PRN albuterol, HOB, IS parameters. #8. Morbid Obesity: Weight loss and lifestyle changes encouraged. #9. Former alcohol abuse: Patient sober for 45 years, encourage continued complete sobriety. #10. Former tobacco use: Encourage continued tobacco cessation. #11. IRIS: BiPAP nightly. #12. DVT prophylaxis: Lovenox. #13. CODE status: Full code. Clinical Impression(s) from Imaging Studies Lumbar Spine X-Ray 06/02/23 18:35 IMPRESSION: No evidence of lumbar spinal fracture or spondylolisthesis. Severe multilevel degenerative disc disease and spondylosis. Lumbar Spine MRI 06/05/23 09:30 IMPRESSION: 1. Multilevel moderate to severe degenerative changes, as described above. 2. Severe central canal stenosis at L4-L5 and L5-S1 3. Large amount of extruded disc material originating from L4-L5 traveling down to the L5-S1 space Charges/Coding Visit Charges Inpatient E&M: 76979 Subs Hosp L2
[2023-06-05] MEDS: tiZANidine HCl 2 MG Tablet 4 MG PO (11:47)
[2023-06-05] MEDS: Losartan Potassium 50 MG Tablet PO (11:51)
--- NOTE | 2023-06-05 14:26 | CASEMGMT ---
Social Work SW spoke w/Delilah in rehab, she states no beds in rehab, and at this time pt would not be accepted in TCU. SW met w/pt, offered support. Pt awaiting results of MRI before making any decisions in regard to rehab. SW did explain to pt that she is here observation, meaning if she does need to go to a SNF, it would be private pay. SW explained to pt the Medicare rule of three midnights as an inpt, SW explained with her being here observation, it does not count toward the midnights with Medicare. Pt states understanding. She did ask about rehab, SW explained that there are no beds. SW explained we can always try a different rehab, and that if accepted this would be covered by Medicare. Pt states understanding. SW will follow up again w/pt after she speaks w/physician about the MRI results and it is better known next steps. JOSE Scruggs
[2023-06-05] MEDS: Pramipexole Di-HCl 0.25 MG Tablet PO (20:52)
[2023-06-05] MEDS: Atorvastatin Calcium 10 MG Tablet PO (20:52)
[2023-06-05] MEDS: Losartan Potassium 25 MG Tablet PO (20:53)
[2023-06-05] MEDS: hydrOXYzine PAM 25 MG Capsule PO (20:54)
[2023-06-05] MEDS: MELATONIN 3 MG TABLET PO (20:56)
[2023-06-06 00:37] VITALS: BP 143/83; PULSE 82; RESP 16; TEMP 36.8; O2SAT 94
[2023-06-06 02:34] VITALS: BMI 42.6
[2023-06-06] MEDS: tiZANidine HCl 2 MG Tablet 4 MG PO (04:52)
[2023-06-06] MEDS: oxyCODONE 5 MG Tablet 10 MG PO ×2 (04:53→20:04)
[2023-06-06] MEDS: Acetaminophen 325 MG Tablet 650 MG PO ×2 (04:53→20:04)
[2023-06-06 07:31] VITALS: O2SAT 97
[2023-06-06 07:54] VITALS: BP 136/78; PULSE 83; RESP 18; TEMP 36.1; O2SAT 94
[2023-06-06] MEDS: MethylPREDNISolone DosePak 4 MG BOX PO (08:02)
[2023-06-06] MEDS: Sertraline 100 MG Tablet PO (08:03)
[2023-06-06] MEDS: Spironolactone 25 MG Tablet PO (08:03)
[2023-06-06] MEDS: Enoxaparin 40 MG/0.4 ML Syringe SC (08:03)
[2023-06-06] MEDS: Losartan Potassium 50 MG Tablet PO (08:03)
[2023-06-06] MEDS: cloNIDine HCl 0.1 MG Tablet PO ×2 (08:03→21:31)
[2023-06-06] MEDS: amLODIPine 10 MG Tablet PO (08:03)
[2023-06-06] MEDS: Docusate Sodium 100 MG Capsule PO (08:04)
[2023-06-06] MEDS: Gabapentin 600 MG Tablet PO ×3 (08:05→16:56)
--- NOTE | 2023-06-06 09:42 | PCM.PN.HOSP ---
Reason for Visit Reason for Visit: Diagnoses Dorsalgia, unspecified (06/02/23) Objective Data Objective Data Vital Signs: Vital Signs Temp Pulse Resp BP Pulse Ox O2 Del Method O2 Flow Rate 97 F L 83 18 136/78 H 94 Room Air 2 06/06/23 07:54 06/06/23 07:54 06/06/23 07:54 06/06/23 07:54 06/06/23 07:54 06/06/23 07:55 06/05/23 10:37 Oxygen Flow Rate (L/min) 2 Oxygen Delivery Method Room Air Weight: 265 lb 3.457 oz Body Mass Index (BMI) 42.6 Intake & Output: Intake and Output for Last 24 Hours 06/04/23 06/05/23 06/06/23 23:59 23:59 23:59 Intake Total 500 / 800 850 / 850 250 / 250 Output Total 750 / 2200 4250 / 4250 500 / 500 Balance -250 / -1400 -3400 / -3400 -250 / -250 Lab / Micro Data 06/05/23 06:05 06/05/23 06:05 Radiography Diagnostic Testing: Radiology Impression Lumbar Spine MRI 06/05/23 09:30 IMPRESSION: 1. Multilevel moderate to severe degenerative changes, as described above. 2. Severe central canal stenosis at L4-L5 and L5-S1 3. Large amount of extruded disc material originating from L4-L5 traveling down to the L5-S1 space Electronically Signed: Sergio Gutiérrez MD at 13:06 EDT Reading Location ID and State: [address] [place] [address] , Service support , ADDENDUM: 06/05/23 1316 IMPRESSION: undefined Physical Exam Narrative Seen and examined. Back pain, sciatic in nature with radiation to right buttock, back of thigh, sciatica in nature past 4 weeks. Had cervical surgery and thoracic surgery in [facility]. Findings of MRI discussed with the patient. Pain looks better than yesterday Physical exam General: Alert, Oriented x3, Cooperative HEENT: Atraumatic, PERRLA, EOMI, Normocephalic Oral: Oral mucosa dry. No Gingival or Mucosal Lesions/ Ulcerations Neck: Supple, No JVD, Negative Carotid Bruits Chest wall/Lungs: Air entry diminished in bilateral lung bases. No crepitation/rhonchi Cardiovascular: Irregular rhythm, Normal S1, Normal S2, systolic murmur Abdomen: Bowel Sounds Present, Soft, Non Tender, Non-Distended : No Atkins catheter. No dysuria. No renal angle tenderness. No suprapubic tenderness. Extremities: No edema, Capillary Refill Less than 3 Seconds Skin: No rashes, No breakdown Musculoskeletal: Tenderness present over LS region. ROM restricted lumbar region. SLR positive. Muscle strength 4/5 at knees and hips likely due to pain and spasm Neurological: Cranial nerves II-XII grossly intact, DTR 2+/4. L4-5 L5-S1 radiculopathy Psych/Mental Status: Flat affect, crying. Assessment & Plan Assessment/Plan (1) Intractable back pain: PLAN: Plan The patient is a 67 y/o F came to ED with low back pain and right lower extremity pain for about 1 month. History of 2 back surgeries in the past. Patient in wheelchair. She also has disequilibrium/loss of balance and near fall situation, guarded weight between the wall of the toilet on day of admission #1. Adult FTT secondary to Acute Intractable Back Pain lumbar spine with right lower extremity radiculopathy with adult failure to thrive, debility, inability to ambulate: [facility] and OT. Pain control, gabapentin, bowel regimen. Patient not able to lay flat for MRI lumbar spine, on the weekend but had MRI today in the morning 06/05: MRI finding discussed with the patient. Has severe central canal stenosis at L4-L5 and L5-S1 and large amount of extruded disc material. Pain seems better than yesterday. Spine surgeon Dr. Kwasi Cheatham called to see the patient in afternoon. Requested pain management consult Dr. Panchal for evaluation for epidural injection. On multiple opioid and steroid medications. Medrol oral Dosepak changed to dexamethasone. Tizanidine and oxycodone. #2. Chronic normocytic anemia: Admission hemoglobin 11.1, MCV 86.4, baseline hemoglobin similar range, 06/04/23 Hgb 11, MCV 87.5. #3. Hypertension: Continue home regimen including valsartan, spironolactone, amlodipine, clonidine but clarifying, PRN hydralazine. #4. Hyperlipidemia: continue patient on statin therapy. #5. Anxiety and depression: We will continue patient home sertraline and hydroxyzine home regimen. #6. PAF: From current list does not appear to be on rate or rhythm agent, also does not appear to be on any anticoagulant therapy. Previously had been on both Xarelto and metoprolol 25 mg p.o. twice daily but does not appear to be taking this currently. If issues arise may restart. #7. c COPD: Not on any chronic regimen, will place on ATC budesonide therapy, PRN albuterol, HOB, IS parameters. #8. Morbid Obesity: Weight loss and lifestyle changes encouraged. #9. Former alcohol abuse: Patient sober for 45 years, encourage continued complete sobriety. #10. Former tobacco use: Encourage continued tobacco cessation. #11. IRIS: BiPAP nightly. #12. DVT prophylaxis: Lovenox. #13. CODE status: Full code. Clinical Impression(s) from Imaging Studies Lumbar Spine X-Ray 06/02/23 18:35 IMPRESSION: No evidence of lumbar spinal fracture or spondylolisthesis. Severe multilevel degenerative disc disease and spondylosis. Lumbar Spine MRI 06/05/23 09:30 IMPRESSION: 1. Multilevel moderate to severe degenerative changes, as described above. 2. Severe central canal stenosis at L4-L5 and L5-S1 3. Large amount of extruded disc material originating from L4-L5 traveling down to the L5-S1 space Charges/Coding Visit Charges Inpatient E&M: 33776 Subs Hosp L2
--- NOTE | 2023-06-06 11:52 | CASEMGMT ---
Social Work SW spoke w/pt, offered support in regard to her back pain. She did not understand what the options presented by physicians. SW explained will look to get clarification from physician. SW spoke w/physician it is this SW's understanding that pt is consulting the orthopedic surgeon here, but the surgery is elective so pt would do the surgery at a later date and discharge from here to a skilled nursing. SW will speak w/pt again regarding plan. JOSE Scruggs
--- NOTE | 2023-06-06 12:18 | CASEMGMT ---
Social Work- SW spoke with pt to update that consult has been made; pt reiterated that she would like records sent to primary spinal surgeon for coordination of care, but stated that records can be sent following Dr Cheatham consult. YOSVANY Hurst
--- NOTE | 2023-06-06 13:29 | PCM.CONS.GEN ---
Assessment & Plan Assessment/Plan (1) Intractable back pain: (2) Stenosis, spinal, lumbar: (3) Lumbar radiculopathy, acute: PLAN: Plan The patient is a 67 y/o F came to ED with low back pain and right lower extremity pain for about 1 month. History of 2 back surgeries in the past. Patient in wheelchair. She also has disequilibrium/loss of balance and near fall situation, guarded weight between the wall of the toilet on day of admission. Severe low back pain with radiculopathy down the right lower extremity. Dr. Cheatham plans for surgical intervention, so will hold off on NAY. I spoke with prem about this plan. Can follow up with pain management after surgery. Clinical Impression(s) from Imaging Studies Lumbar Spine X-Ray 06/02/23 18:35 IMPRESSION: No evidence of lumbar spinal fracture or spondylolisthesis. Severe multilevel degenerative disc disease and spondylosis. Lumbar Spine MRI 06/05/23 09:30 IMPRESSION: 1. Multilevel moderate to severe degenerative changes, as described above. 2. Severe central canal stenosis at L4-L5 and L5-S1 3. Large amount of extruded disc material originating from L4-L5 traveling down to the L5-S1 space HPI Consult Data Date of Consult: 06/06/23 HPI Narrative HPI Narrative: BARBARA KARIMI, is a 67 F who is on [facility] floor for severe back pain with right lower extremity radiculopathy. She has a history of midback and cervical surgery. She has been wheelchair bound since the midbcack surgery 2 years ago. 1 month ago the pain came on. She states she has had increased difficulty with moving between the wheelchair and to the bed/toilet and has had a few falls. She is tearful intermittently sharing these difficulties. She denies any prior injections or seeing pain management. She has been managed on medicaitons including opioids and steroid dose pack with some benefit short term. The pain is stabbing in nature and ranges from 6-10/10 in severity. MRI demonstrated severe canal stenosis L4-L5 and L5-S1 with disc herniation. She denies any bowel or bladder control loss, denies saddle paresthesias or severe worsened weakness. [facility] Medical History (Updated 06/06/23 @ 17:[address] Eric Wheatley MD) Anxiety and depression Atrial fibrillation COPD (chronic obstructive pulmonary disease) Former smoker Herpes zoster History of alcohol abuse Hyperlipidemia Hypertension Morbid obesity Neuropathic pain IRIS treated with BiPAP Osteoarthritis of knees, bilateral Pseudogout of right knee Thoracic spinal stenosis Thyroid nodule Vitamin D deficiency Home Medications atorvastatin 10 mg tablet 10 mg PO DAILY@2200 Cholesterol 12/08/20 [History Last Taken 06/01/23] cholecalciferol (vitamin D3) 25 mcg (1,000 unit) tablet (Vitamin D3) 2,000 unit PO DAILY Supplement 12/08/20 [History Last Taken 06/01/23] clonidine HCl 0.1 mg tablet 0.1 mg PO BID BP 12/08/20 [History Last Taken 06/01/23] diclofenac sodium 1 % topical gel (Voltaren Arthritis Pain) 1 ea topical Q6H Pain 12/08/20 [History Last Taken 06/01/23] sertraline 100 mg tablet 100 mg PO DAILY Mood 12/08/20 [History Last Taken 06/01/23] gabapentin 300 mg capsule 300 mg PO BID Nerve Pain 30 days #60 caps 01/01/21 [Rx Last Taken 06/01/23] methocarbamol 750 mg tablet 750 mg PO Q8H pain 30 days #90 tabs 01/01/21 [Rx Last Taken 06/01/23] potassium chloride 20 mEq tablet,extended release(part/cryst) (Klor-Con M) 20 meq PO DAILYCM 30 days #30 tabs 01/01/21 [Rx Last Taken 06/01/23] hydroxyzine pamoate 25 mg capsule 25 mg PO QHS 30 days #30 caps 01/11/21 [Rx Last Taken 06/01/23] orphenadrine citrate 100 mg tablet,extended release 100 mg PO BID PRN muscle spasm #10 tabs 05/02/23 [Rx Last Taken 06/01/23] acetaminophen 500 mg tablet 1,000 mg PO Q6H PRN Pain Score 1-10 06/02/23 [History Last Taken 06/01/23] amlodipine 10 mg tablet 10 mg PO DAILY 06/02/23 [History Last Taken 06/01/23] diclofenac sodium 100 mg tablet,extended release 24 hr 100 mg PO DAILY 06/02/23 [History Last Taken 06/01/23] docusate sodium 100 mg capsule 100 mg PO DAILY 06/02/23 [History Last Taken 06/01/23] ketoconazole 2 % topical cream 1 applic topical DAILY 06/02/23 [History Last Taken 06/01/23] oxycodone-acetaminophen 5 mg-325 mg tablet 1 tab PO 4X/DAY PRN PRN pain 06/02/23 [History Last Taken 06/02/23] prednisone 10 mg tablet 10 mg PO DAILY STERIOD TAPER 06/02/23 [History Last Taken 06/01/23] spironolactone 25 mg tablet 25 mg PO DAILY 06/02/23 [History Last Taken 06/01/23] valsartan 160 mg tablet 160 mg PO DAILY 06/02/23 [History Last Taken 06/01/23] valsartan 80 mg tablet 80 mg PO DAILY 06/02/23 [History Last Taken 06/01/23] Allergy/AdvReac Type Severity Reaction Status Date / Time hydrocodone [From Vicodin] Allergy Anaphylaxis Verified 06/02/23 16:42 lorazepam [From Ativan] Allergy Hives Verified 06/02/23 16:42 neomycin Allergy Hives Verified 06/02/23 16:42 Family History (Updated 06/02/23 @ 20:[address] Monika Mendoza MD) Mother No problems noted. Father Leukemia Diabetes Surgical History History of adenoidectomy History of back surgery History of back surgery Hx of tonsillectomy Social History (Updated 06/02/23 @ 20:[address] Monika Mendoza MD) household members: family Smoking Status: Former smoker how long ago did patient quit smoking: Quit 45 yrs prior, smoked 1 ppd starting age 19 until quit. alcohol intake: former details: Drank heavily prior, sober x 45 years. substance use type: does not use ROS ROS Narrative Admission Review of Systems: CONSTITUTIONAL: No weight loss, fever, chills, + weakness or fatigue. HEENT: Eyes: No visual loss, blurred vision, double vision or yellow sclerae. Ears, Nose, Throat: No hearing loss, sneezing, congestion, runny nose or sore throat. SKIN: No rash or itching, lesions, wounds. CARDIOVASCULAR: No chest pain, chest pressure or chest discomfort, palpitations, edema, orthopnea, syncopal events. RESPIRATORY: No shortness of breath, cough or sputum, wheezing, hemoptysis. GASTROINTESTINAL: No anorexia, nausea, vomiting or diarrhea, abdominal pain, melena, BRBPR. GENITOURINARY: No dysuria, frequency, urgency or retention. NEUROLOGICAL: Significant debility and weakness secondary to lumbar back pain with right lower extremity radiculopathy. No headache, dizziness, syncope, paralysis, ataxia, focal weakness, change in bowel or bladder control, seizure. MUSCULOSKELETAL: + muscle, back pain, joint pain or stiffness. HEMATOLOGIC: + Chronic anemia. No markedly easy bleeding or bruising. LYMPHATICS: No enlarged nodes. No history of splenectomy. PSYCHIATRIC: + Anxiety and depression. ENDOCRINOLOGIC: No reports of sweating, cold or heat intolerance. No polyuria or polydipsia. ALLERGIES: No history of asthma, hives, eczema or rhinitis. Physical Exam Narrative Decreased sensation in foot on left compared to right. 4/5 right hip flexion. 5/5 otherwise in lower extremities. Const alert and oriented x3 Constitutional Narrative: Obese, intermittently tearful General Appearance: cooperative HEENT normocephalic Resp normal respiratory effort Psych affect normal Appearance: appropriate Lab / Micro Data 06/05/23 06:05 06/05/23 06:05
[2023-06-06 14:30] VITALS: BP 145/75; PULSE 96; RESP 18; TEMP 36.3; O2SAT 94
--- NOTE | 2023-06-06 15:33 | CONS.ORTHO ---
HPI Consult Data Date of Consult: 06/06/23 HPI Narrative HPI Narrative: BARBARA KARIMI, is a 67 F who has been in inpatient since 06/02/2023. I was consulted today after the MRI lumbar spine revealed a large disc herniation starting at L4-5 with migration towards L5-S1. I saw the patient in 308. She was comfortable in bed. She reports severe low back pain with right worse than left buttock pain with radiation of pain into the right lower extremity. She has numbness in the left foot worse than the right. She has baseline cervical and thoracic fusions which were likely done for myelopathy. She has been wheelchair dependent for the last 2 years. She uses a motorized wheelchair. 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 She says that about 5 weeks ago on May 01 she started having severe worsening pain and she is no longer able to do transfers from the wheelchair to commode that she had been able to do previously. Overall she feels pain with any movement of the right lower extremity. She denies any incontinence or numbness in the perianal area. She was initially treated by ER and PCP in late April and early May with 7-day course of steroids but this continued to worsen. She has been unable to transfer with the help of physical therapy since being admitted here in the hospital. Her thoracic surgery is likely a T9-11 posterior decompression and fusion which was done 2 years ago, and she has also had cervical spine surgery which she says was 4 years ago. Her BMI is 42. She is nondiabetic. She denies taking any blood thinners at baseline. [facility]LY [facility] Medical History (Updated 06/02/23 @ 20:[address] Monika Mendoza MD) Anxiety and depression Atrial fibrillation COPD (chronic obstructive pulmonary disease) Former smoker Herpes zoster History of alcohol abuse Hyperlipidemia Hypertension Morbid obesity Neuropathic pain IRIS treated with BiPAP Osteoarthritis of knees, bilateral Pseudogout of right knee Thoracic spinal stenosis Thyroid nodule Vitamin D deficiency Home Medications atorvastatin 10 mg tablet 10 mg PO DAILY@2200 Cholesterol 12/08/20 [History Last Taken 06/01/23] cholecalciferol (vitamin D3) 25 mcg (1,000 unit) tablet (Vitamin D3) 2,000 unit PO DAILY Supplement 12/08/20 [History Last Taken 06/01/23] clonidine HCl 0.1 mg tablet 0.1 mg PO BID BP 12/08/20 [History Last Taken 06/01/23] diclofenac sodium 1 % topical gel (Voltaren Arthritis Pain) 1 ea topical Q6H Pain 12/08/20 [History Last Taken 06/01/23] sertraline 100 mg tablet 100 mg PO DAILY Mood 12/08/20 [History Last Taken 06/01/23] gabapentin 300 mg capsule 300 mg PO BID Nerve Pain 30 days #60 caps 01/01/21 [Rx Last Taken 06/01/23] methocarbamol 750 mg tablet 750 mg PO Q8H pain 30 days #90 tabs 01/01/21 [Rx Last Taken 06/01/23] potassium chloride 20 mEq tablet,extended release(part/cryst) (Klor-Con M) 20 meq PO DAILYCM 30 days #30 tabs 01/01/21 [Rx Last Taken 06/01/23] hydroxyzine pamoate 25 mg capsule 25 mg PO QHS 30 days #30 caps 01/11/21 [Rx Last Taken 06/01/23] orphenadrine citrate 100 mg tablet,extended release 100 mg PO BID PRN muscle spasm #10 tabs 05/02/23 [Rx Last Taken 06/01/23] acetaminophen 500 mg tablet 1,000 mg PO Q6H PRN Pain Score 1-10 06/02/23 [History Last Taken 06/01/23] amlodipine 10 mg tablet 10 mg PO DAILY 06/02/23 [History Last Taken 06/01/23] diclofenac sodium 100 mg tablet,extended release 24 hr 100 mg PO DAILY 06/02/23 [History Last Taken 06/01/23] docusate sodium 100 mg capsule 100 mg PO DAILY 06/02/23 [History Last Taken 06/01/23] ketoconazole 2 % topical cream 1 applic topical DAILY 06/02/23 [History Last Taken 06/01/23] oxycodone-acetaminophen 5 mg-325 mg tablet 1 tab PO 4X/DAY PRN PRN pain 06/02/23 [History Last Taken 06/02/23] prednisone 10 mg tablet 10 mg PO DAILY STERIOD TAPER 06/02/23 [History Last Taken 06/01/23] spironolactone 25 mg tablet 25 mg PO DAILY 06/02/23 [History Last Taken 06/01/23] valsartan 160 mg tablet 160 mg PO DAILY 06/02/23 [History Last Taken 06/01/23] valsartan 80 mg tablet 80 mg PO DAILY 06/02/23 [History Last Taken 06/01/23] Allergy/AdvReac Type Severity Reaction Status Date / Time hydrocodone [From Vicodin] Allergy Anaphylaxis Verified 06/02/23 16:42 lorazepam [From Ativan] Allergy Hives Verified 06/02/23 16:42 neomycin Allergy Hives Verified 06/02/23 16:42 Family History (Updated 06/02/23 @ 20:[address] Monika Mendoza MD) Mother No problems noted. Father Leukemia Diabetes Surgical History History of adenoidectomy History of back surgery History of back surgery Hx of tonsillectomy Social History (Updated 06/02/23 @ 20:[address] Monika Mendzoa MD) household members: family Smoking Status: Former smoker how long ago did patient quit smoking: Quit 45 yrs prior, smoked 1 ppd starting age 19 until quit. alcohol intake: former details: Drank heavily prior, sober x 45 years. substance use type: does not use Vital Signs Vital Signs Vital Signs: 06/05/23 15:54 06/05/23 20:23 06/05/23 20:23 Temperature 98.0 F 99.1 F Temperature Source Temporal Oral Pulse Rate 82 88 Pulse Strength Respiratory Rate 18 16 Respiratory Effort Normal Respiratory Depth Normal Respiratory Pattern Normal Blood Pressure 138/92 H 152/73 H Blood Pressure Mean 107 99 Blood Pressure Source Monitor Blood Pressure Position Semi-Fowlers Blood Pressure Location Left Forearm Pulse Ox 95 96 Oxygen Delivery Method Room Air Room Air Room Air 06/05/23 20:23 06/05/23 20:23 06/06/23 00:37 Temperature 99.1 F 98.2 F Temperature Source Oral Oral Pulse Rate 88 82 Pulse Strength Normal (2+) Respiratory Rate 16 16 Respiratory Effort Respiratory Depth Respiratory Pattern Blood Pressure 152/73 H 143/83 H Blood Pressure Mean 99 103 Blood Pressure Source Monitor Blood Pressure Position Semi-Fowlers Blood Pressure Location Left Forearm Pulse Ox 96 94 Oxygen Delivery Method Room Air Room Air 06/06/23 00:37 06/06/23 02:23 06/06/23 07:31 Temperature 98.2 F Temperature Source Oral Pulse Rate 82 Pulse Strength Respiratory Rate 16 Respiratory Effort Normal Respiratory Depth Normal Respiratory Pattern Normal Blood Pressure 143/83 H Blood Pressure Mean 103 Blood Pressure Source Monitor Blood Pressure Position Semi-Fowlers Blood Pressure Location Left Forearm Pulse Ox 94 97 Oxygen Delivery Method Room Air Room Air Room Air 06/06/23 07:54 06/06/23 07:55 06/06/23 07:55 Temperature 97 F L Temperature Source Temporal Pulse Rate 83 Pulse Strength Normal (2+) Respiratory Rate 18 Respiratory Effort Normal Respiratory Depth Normal Respiratory Pattern Normal Blood Pressure 136/78 H Blood Pressure Mean 97 Blood Pressure Source Monitor Blood Pressure Position Semi-Fowlers Blood Pressure Location Left Forearm Pulse Ox 94 Oxygen Delivery Method Room Air Room Air 06/06/23 14:30 06/06/23 14:30 Temperature 97.3 F L Temperature Source Temporal Pulse Rate 96 Pulse Strength Respiratory Rate 18 Respiratory Effort Normal Respiratory Depth Normal Respiratory Pattern Normal Blood Pressure 145/75 H Blood Pressure Mean 98 Blood Pressure Source Monitor Blood Pressure Position Semi-Fowlers Blood Pressure Location Left Arm Pulse Ox 94 Oxygen Delivery Method Room Air Weight Weight: 265 lb 3.457 oz Body Mass Index (BMI) 42.6 Physical Exam Narrative Examination of the back shows midline and bilateral paraspinal tenderness in lower lumbar spine. Neurologic evaluation of lower extremity shows baseline weakness in both lower extremities. Hip flexion is grade 3 bilaterally, associated with severe pain on the right. Quadriceps is 4 - bilaterally. Ankle dorsiflexion bilaterally is 4 -. EHL is grade 4 - on the left and grade 4 on the right. Plantarflexion is grade 4 bilaterally. Lab / Micro Data 06/05/23 06:05 06/05/23 06:05 Assessment & Plan Assessment/Plan (1) Intractable back pain: PLAN: Plan I reviewed her MRI of the lumbar spine done yesterday. This shows multilevel lumbar severe disc degeneration. Her x-rays show vacuum phenomenon at multiple upper lumbar levels. She has had T9-11 posterior decompression and fusion. L4-5 maintains good disc height on x-rays. MRI shows large central disc extrusion at L4-5 with inferior migration going behind the L5 vertebral body almost reaching L5-S1 disc. This is slightly larger on the left than the right but is predominantly central. This causes severe cauda equina compression. I explained to her the imaging findings in detail. She has a large extruded disc which is causing severe cauda equina compression at L4-5 migrating towards L5-S1. She has severe decline in her function over the last 5 weeks because of this. She has baseline thoracic and cervical myelopathy from which she has some baseline weakness in all 4 extremities. She is wheelchair-bound. I explained to her options of treatment which include epidural injections versus surgical microdiscectomy. Patient has a severe decline in her baseline function over the last 5 weeks which is not improving with time despite oral steroids and physical therapy. The volume of the disc herniation with cauda equina compression concerns me with possibility of cauda equina syndrome with an attempted injection. I explained to her that surgical microdiscectomy would likely improve the tension on the nerves and the compression and the radicular pain. It might not eliminate her axial low back pain or her baseline weakness in both lower extremities. I recommend L4-5 laminotomy and discectomy. All risk benefits and alternatives were discussed. The risks include but are not limited to infection, bleeding, injury to nerves and vessels, hematoma formation, need for further surgery, need for fusion, persistent pain, nerve injury, foot drop, DVT, pulmonary embolism, iatrogenic instability, pneumonia, atelectasis, cardiopulmonary event, recurrent disc herniation. Patient understands and agrees to proceed with surgery. Patient will be scheduled during this admission depending on or availability, likely morning. Patient was in agreement. All questions were answered. Charges/Coding Visit Charges Inpatient E&M: 08311 Init Hosp L3
[2023-06-06] MEDS: dexAMETHasone 4 MG Tablet PO (16:56)
[2023-06-06 20:09] VITALS: BP 147/79; PULSE 97; RESP 16; TEMP 37.1; O2SAT 95
[2023-06-06 20:13] VITALS: BP 147/79; PULSE 97; RESP 16; TEMP 37.1; O2SAT 95
[2023-06-06] MEDS: Losartan Potassium 25 MG Tablet PO (21:31)
[2023-06-06] MEDS: Atorvastatin Calcium 10 MG Tablet PO (21:31)
[2023-06-06] MEDS: hydrOXYzine PAM 25 MG Capsule PO (21:32)
[2023-06-06] MEDS: Pramipexole Di-HCl 0.25 MG Tablet PO (21:32)
[2023-06-07 06:22] VITALS: BP 146/86; PULSE 82; RESP 16; TEMP 36.7; O2SAT 98
[2023-06-07 07:41] VITALS: BP 133/101; PULSE 92; RESP 16; TEMP 36.7; O2SAT 93
[2023-06-07] MEDS: dexAMETHasone 4 MG Tablet PO ×2 (08:04→17:11)
[2023-06-07] MEDS: amLODIPine 10 MG Tablet PO (08:04)
[2023-06-07] MEDS: Losartan Potassium 50 MG Tablet PO (08:04)
[2023-06-07] MEDS: Sertraline 100 MG Tablet PO (08:04)
[2023-06-07] MEDS: Gabapentin 600 MG Tablet PO ×3 (08:04→17:11)
[2023-06-07] MEDS: Spironolactone 25 MG Tablet PO (08:05)
[2023-06-07] MEDS: Docusate Sodium 100 MG Capsule PO (08:05)
[2023-06-07] MEDS: cloNIDine HCl 0.1 MG Tablet PO ×2 (08:05→22:46)
[2023-06-07] MEDS: tiZANidine HCl 2 MG Tablet 4 MG PO (08:08)
[2023-06-07] MEDS: oxyCODONE 5 MG Tablet 10 MG PO ×2 (11:05→22:47)
[2023-06-07 11:14] VITALS: O2SAT 96
[2023-06-07 13:24] VITALS: BP 122/88; PULSE 87; RESP 14; TEMP 36.6; O2SAT 96
--- NOTE | 2023-06-07 15:46 | EKG12_ITS ---
Test Reason : PRE OP Blood Pressure : / mmHG Vent. Rate : 086 BPM Atrial Rate : 086 BPM P-R Int : 152 ms QRS Dur : 078 ms QT Int : 354 ms P-R-T Axes : 032 022 018 degrees QTc Int : 423 ms Normal sinus rhythm Normal ECG When compared with ECG of 05-JAN-2021 15:40, No significant change was found Confirmed by MARILEE SPIVEY, PETRONA ([id number]), editor house organ MIGUEL GEORGE ([id number]) on 06/12/2023 2:04:10 PM Referred By: Monika Mendoza Confirmed By:PETRONA HUNT MD
--- NOTE | 2023-06-07 15:46 | PCM.PN.HOSP ---
Reason for Visit Reason for Visit: Diagnoses Spinal stenosis, lumbar region without neurogenic claudication (06/06/23) Radiculopathy, lumbar region (06/06/23) Dorsalgia, unspecified (06/06/23) Objective Data Objective Data Vital Signs: Vital Signs Temp Pulse Resp BP Pulse Ox O2 Del Method O2 Flow Rate 97.9 F 87 14 122/88 H 96 Room Air 2 06/07/23 13:24 06/07/23 13:24 06/07/23 13:24 06/07/23 13:24 06/07/23 13:24 06/07/23 13:24 06/05/23 10:37 Oxygen Flow Rate (L/min) 2 Oxygen Delivery Method Room Air Weight: 265 lb 3.457 oz Body Mass Index (BMI) 42.6 Intake & Output: Intake and Output for Last 24 Hours 06/05/23 06/06/23 06/07/23 23:59 23:59 23:59 Intake Total 850 / 850 250 / 250 940 / 940 Output Total 4250 / 4250 1000 / 1000 1300 / 1300 Balance -3400 / -3400 -750 / -750 -360 / -360 Lab / Micro Data 06/05/23 06:05 06/05/23 06:05 Physical Exam Narrative Seen and examined. Overall pain is better than before. Patient can sit about 30 to 60 degree. Patient satisfied with surgery scheduled for tomorrow AM. Was seen by spine surgeon Dr. Cheatham and pain management Dr. Wheatley. Back pain, sciatic in nature with radiation to right buttock, back of thigh, sciatica in nature past 4 weeks. Had cervical surgery and thoracic surgery in [facility]. Findings of MRI discussed with the patient. Physical exam General: Alert, Oriented x3, Cooperative HEENT: Atraumatic, PERRLA, EOMI, Normocephalic Oral: Oral mucosa dry. No Gingival or Mucosal Lesions/ Ulcerations Neck: Supple, No JVD, Negative Carotid Bruits Chest wall/Lungs: Air entry diminished in bilateral lung bases. No crepitation/rhonchi Cardiovascular: Irregular rhythm, Normal S1, Normal S2, systolic murmur Abdomen: Bowel Sounds Present, Soft, Non Tender, Non-Distended : No Atkins catheter. No dysuria. No renal angle tenderness. No suprapubic tenderness. Extremities: No edema, Capillary Refill Less than 3 Seconds Skin: No rashes, No breakdown Musculoskeletal: Mild tenderness present over LS region. ROM restricted lumbar region. SLR positive of right LE at 30 degree and left leg at 60 degree. Muscle strength 4/5 at knees and hips likely due to pain and spasm Neurological: Cranial nerves II-XII grossly intact, DTR 2+/4. L4-5 L5-S1 radiculopathy Psych/Mental Status: Flat affect Assessment & Plan Assessment/Plan (1) Intractable back pain: PLAN: Plan The patient is a 67 y/o F came to ED with low back pain and right lower extremity pain for about 1 month. History of 2 back surgeries in the past. Patient in wheelchair. She also has disequilibrium/loss of balance and near fall situation, guarded weight between the wall of the toilet on day of admission #1. Adult FTT secondary to Acute Intractable Back Pain lumbar spine with right lower extremity radiculopathy with adult failure to thrive, debility, inability to ambulate: [facility] and OT. Pain control, gabapentin, bowel regimen. Patient not able to lay flat for MRI lumbar spine, on the weekend but had MRI today in the morning 06/05: MRI finding discussed with the patient. Has severe central canal stenosis at L4-L5 and L5-S1 and large amount of extruded disc material. Pain seems better than yesterday. Spine surgeon Dr. Kwasi Cheatham called to see the patient in afternoon. Requested pain management consult Dr. Panchal for evaluation for epidural injection. On multiple opioid and steroid medications. Medrol oral Dosepak changed to dexamethasone. Tizanidine and oxycodone. 06/06: Patient evaluated by both spine surgeon Dr. Kwasi Cheatham and Dr. Wheatley. Scheduled for surgery tomorrow. Preop EKG and labs ordered. #2. Chronic normocytic anemia: Admission hemoglobin 11.1, MCV 86.4, baseline hemoglobin similar range, 06/04/23 Hgb 11, MCV 87.5. #3. Hypertension: Continue home regimen including valsartan, spironolactone, amlodipine, clonidine but clarifying, PRN hydralazine. #4. Hyperlipidemia: continue patient on statin therapy. #5. Anxiety and depression: We will continue patient home sertraline and hydroxyzine home regimen. #6. PAF: From current list does not appear to be on rate or rhythm agent, also does not appear to be on any anticoagulant therapy. Previously had been on both Xarelto and metoprolol 25 mg p.o. twice daily but does not appear to be taking this currently. If issues arise may restart. #7. c COPD: Not on any chronic regimen, will place on ATC budesonide therapy, PRN albuterol, HOB, IS parameters. #8. Morbid Obesity: Weight loss and lifestyle changes encouraged. #9. Former alcohol abuse: Patient sober for 45 years, encourage continued complete sobriety. #10. Former tobacco use: Encourage continued tobacco cessation. #11. IRIS: BiPAP nightly. #12. DVT prophylaxis: Lovenox. #13. CODE status: Full code. Clinical Impression(s) from Imaging Studies Lumbar Spine X-Ray 06/02/23 18:35 IMPRESSION: No evidence of lumbar spinal fracture or spondylolisthesis. Severe multilevel degenerative disc disease and spondylosis. Lumbar Spine MRI 06/05/23 09:30 IMPRESSION: 1. Multilevel moderate to severe degenerative changes, as described above. 2. Severe central canal stenosis at L4-L5 and L5-S1 3. Large amount of extruded disc material originating from L4-L5 traveling down to the L5-S1 space Charges/Coding Visit Charges Inpatient E&M: 48789 Subs Hosp L2
--- NOTE | 2023-06-07 16:01 | NURSING ---
All documentation by practical nursing faculty, Kevin Soria, reviewed by nursing education specialist, Addie VERDE, RN.
--- NOTE | 2023-06-07 16:20 | PN.ORTHO_ITS ---
Subjective Subjective Saw patient today. Spoke with patient's niece Juanita. Discussed the surgery again and the restrictions after. Answered all questions. Continues to have significant low back pain with right lower extremity worse th an left radiation with weakness which is worse on the left than the right. She is avoiding any movement around her back due to severe pain. She mentions that there is a sore in the right buttock which is being dressed. She says that this happened due to an abrasion from her wheelchair last week. She says this is fairly superficial Objective Data Objective Data Vital Signs: Vital Signs Temp Pulse Resp BP Pulse Ox O2 Del Method O2 Flow Rate 97.9 F 87 14 122/88 H 96 Room Air 2 06/07/23 13:24 06/07/23 13:24 06/07/23 13:24 06/07/23 13:24 06/07/23 13:24 06/07/23 13:06/05/23 10:37 Oxygen Flow Rate (L/min) 2 Oxygen Delivery Method Room Air Weight: 265 lb 3.457 oz Body Mass Index (BMI) 42.6 Intake & Output: Intake and Output for Last 24 Hours 06/05/23 06/06/23 06/07/23 23:59 23:59 23:59 Intake Total 850 / 850 250 / 250 940 / 940 Output Total 4250 / 4250 1000 / 1000 1300 / 1300 Balance -3400 / -3400 -750 / -750 -360 / -360 Lab / Micro Data 06/05/23 06:05 06/05/23 06:05 Physical Exam Narrative Examination of the back shows midline and bilateral paraspinal tenderness in lower lumbar spine. Neurologic evaluation of lower extremity shows baseline weakness in both lower extremities. Hip flexion is grade 3 bilaterally, associated with severe pain on the right. Quadriceps is 4 - bilaterally. Ankle dorsiflexion bilaterally is 4 -. EHL is grade 4 - on the left and grade 4 on the right. Plantarflexion is grade 4 bilaterally. Assessment & Plan Assessment/Plan (1) Lumbar radiculopathy, acute: (2) Stenosis, spinal, lumbar: QUALIFIERS: Neurogenic claudication status: with neurogenic claudication Qualified Code(s): M48.062 - Spinal stenosis, lumbar region with neurogenic claudication PLAN: Plan I again reviewed her imaging findings with her. I also looked at her back and there is dressed sore in the right buttock region. No obvious discharge. I went over the surgery again. Answered all questions. Patient will be n.p.o. tonight after midnight for surgery tomorrow a.m. Patient was in agreement. Charges/Coding Visit Charges Inpatient E&M: 61270 Subs Hosp L1
--- NOTE | 2023-06-07 16:47 | CASEMGMT ---
RN?CM?SAMPLE DISPLAY PREPARER?CM?to room to meet with patient for initial transition planning/care coordination?assessment.?RN?CM?introduced self and role at [facility].? Pt voices understanding and consents to?assessment?at this time.? Pt resting in bed in no distress at this time.? Pt is A/O at this time and answers all questions appropriately.?? Care providers, pharmacy, and demographics verified/updated at this time. PCP: Dr Doty Specialists: JADE [place] for spine surgeon @ [facility] Preferred Pharmacy: [facility] Insurance: [facility] AARP per patient. This is not listed in [employer]. Call placed to [facility] in registration and was informed they will need the subscriber ID to verify this. Pt states she can have the card brought in for verification. Prescription Benefit:?Yes Living Will/HPOA:? Pt states she has done AD in the past, but states would like to complete new ones in the future. She is not interested in completing them at this time. Instructed to ask for SW if she decides she would like to complete them while @ [facility] and made aware she can do as OP w/SW if she desires. She voices understanding. LNOK: 3 living siblings: Sister, Tiffanie, and 2 brothers, Sy and Ruy. Pt had a brother, Ramon, who committed suicide Nov, 2022. Pt became tearful when sharing this information w/RN CM. Pt states would like just her niece, Juanita Michaels, listed as contact at this time. Her sister, Tiffanie (PH: [phone]), just had ankle surgery and she does not want her to be called/bothered at this present time. She states once she recovers she will have her added back on her contact list. Living Arrangements: Lives alone in one-story home w/ramp entrance. Pt has been WC bound for past 1 1/2 years. She is independent in transferring self and ADL's. She has a cleaning lady come, friend gets groceries, and niece stops in to check on her. Transportation: [place] DME: States has the following DME: manual and power WC, slide board, extended tub bench, grab bars, hand-held shower, adjustable bed w/rail, BIPAP HHC/SNF: Hx of going to [facility], SNF or RU in [place], and [facility] and TCU. Pt states would like to go to either [facility] or TCU @ discharge and declines wanting list of other SNF or RU options at this time unless neither of them are able to take her. NELLY Ba, made aware. PLAN:??SNF. Pt prefers [facility] or TCU @ discharge. Vera HENDERSONN?RN?CM
[2023-06-07 19:59] VITALS: BP 149/70; PULSE 93; RESP 18; TEMP 36.7; O2SAT 95
[2023-06-07] MEDS: Acetaminophen 325 MG Tablet 650 MG PO (20:06)
[2023-06-07] MEDS: Atorvastatin Calcium 10 MG Tablet PO (22:46)
[2023-06-07] MEDS: hydrOXYzine PAM 25 MG Capsule PO (22:46)
[2023-06-07] MEDS: Losartan Potassium 25 MG Tablet PO (22:46)
[2023-06-07] MEDS: Pramipexole Di-HCl 0.25 MG Tablet PO (22:46)
[2023-06-08] VITALS (18 sets, daily range): BP systolic 104–155; BP diastolic 45–93; PULSE 77–89; RESP 16–18; TEMP 36.1–36.9; O2SAT 94–100; BMI 42.6; BMI 42.7; BMI 42.8
[2023-06-08 05:46] LABS: Absolute Lymphocyte Count 1.05 X10^3/uL (0.83-4.51); Absolute Neutrophil Count 16.5 X10^3/uL (2.0-7.7); Basophil# 0.02 X10^3/uL; Basophil% 0.1 % (0-1); Eosinophil# 0.01 X10^3/uL; Eosinophils% 0.1 % (0-5); Hematocrit 40.8 % (37-47); Hemoglobin 13.3 g/dL (12.0-15.0); Lymphocyte # 1.05 X10^3/ul (0.83-4.51); Lymphocyte % 5.8 % (19-41); Mean Corp Hgb Conc 32.6 g/dL (32-36); Mean Corpuscular Hgb 27.5 pg (27.0-32.0); Mean Corpuscular Volume 84.5 fL (81-99); Mean Platelet Vol. 8.9 fl (6.2-12.0); Monocyte# 0.54 X10^3/uL; NRBC Flagged by Analyzer 0 % (0-5); Neutrophil % 90.3 % (47-70); Platelet Count 551 K/mm3 (150-450); RBC Distribution Width CV 13.6 % (11.6-14.6); RBC Distribution Width SD 41.7 fl (35.1-43.9); Red Blood Count 4.83 M/mm3 (4.2-5.4); White Blood Count 18.3 K/mm3 (4.4-11.0)
[2023-06-08 06:07] LABS: ALB/GLOB Ratio 0.8 RATIO (0.9-2.4); AST(SGOT) 19 U/L (15-37); Alanine Aminotransfer ALT/SGPT 44 U/L (13-56); Albumin, Serum 3.2 g/dL (3.2-5.0); Alkaline Phosphatase 131 U/L (45-117); Anion Gap 4 (5-15); BUN 27 mg/dL (7-18); BUN/Creat Ratio 38.2 RATIO (10-20); Calcium,Total 9.7 mg/dL (8.5-10.1); Chloride 99 mmol/L (98-107); Creatinine, Serum 0.71 mg/dL (0.55-1.02); EST Glomerular Filtration Rate 87 mL/min (>60); Est Glom Filt Rate - Afr Amer 106 mL/min (>60); Glucose 160 mg/dL (74-106); Potassium 4.9 mmol/L (3.5-5.1); Protein, Total 7.2 g/dL (6.4-8.2); Sodium Level 130 mmol/L (136-145)
[2023-06-08] MEDS: 0.9% Saline Lock 10 ML Syringe IV (06:09)
--- NOTE | 2023-06-08 06:30 | RAD_ITS ---
PROCEDURE: Lumbar microdecompression and discectomy. DATE OF EXAMINATION: June 08, 2023. INDICATION: Female, 67 years old. Low back pain. FLUOROSCOPY TIME (if supplied): (12 seconds) minutes/seconds. 15.57 mGy. 2 images were obtained. RAD/Spine 1 View Any Level IMPRESSION: Intraoperative imaging provided for L4-5 decompression. Electronically Signed: Francisco Zavaleta MD at 15:38 EDT ,
[2023-06-08] MEDS: Lactated Ringers 1,000 ML 15 ML IV (06:57)
--- NOTE | 2023-06-08 07:26 | PCM.HP.BLA ---
History and Physical MR#: [id number] Acct: [id number] Name: BARBARA KARIMI Rep #: [id number] : 1955 67 From: Kwasi Cheatham MD PCP: Dr. Alissa Doty MD Status: ADM IN Location: MS3 [id number] HPI Consult Data Date of Consult: 06/06/23 HPI Narrative HPI Narrative: BARBARA KARIMI, is a 67 F who has been in inpatient since 06/02/2023. I was consulted today after the MRI lumbar spine revealed a large disc herniation starting at L4-5 with migration towards L5-S1. I saw the patient in 308. She was comfortable in bed. She reports severe low back pain with right worse than left buttock pain with radiation of pain into the right lower extremity. She has numbness in the left foot worse than the right. She has baseline cervical and thoracic fusions which were likely done for myelopathy. She has been wheelchair dependent for the last 2 years. She uses a motorized wheelchair. 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 She says that about 5 weeks ago on May 01 she started having severe worsening pain and she is no longer able to do transfers from the wheelchair to commode that she had been able to do previously. Overall she feels pain with any movement of the right lower extremity. She denies any incontinence or numbness in the perianal area. She was initially treated by ER and PCP in late April and early May with 7-day course of steroids but this continued to worsen. She has been unable to transfer with the help of physical therapy since being admitted here in the hospital. Her thoracic surgery is likely a T9-11 posterior decompression and fusion which was done 2 years ago, and she has also had cervical spine surgery which she says was 4 years ago. Her BMI is 42. She is nondiabetic. She denies taking any blood thinners at baseline. [facility] Medical History (Updated 06/02/23 @ 20:[address] Monika Mendoza MD) Anxiety and depression Atrial fibrillation COPD (chronic obstructive pulmonary disease) Former smoker Herpes zoster History of alcohol abuse Hyperlipidemia Hypertension Morbid obesity Neuropathic pain IRIS treated with BiPAP Osteoarthritis of knees, bilateral Pseudogout of right knee Thoracic spinal stenosis Thyroid nodule Vitamin D deficiency Home Medications atorvastatin 10 mg tablet 10 mg PO DAILY@2200 Cholesterol 10/26/21 [History Last Taken 06/01/23] cholecalciferol (vitamin D3) 25 mcg (1,000 unit) tablet (Vitamin D3) 2,000 unit PO DAILY Supplement 12/08/20 [History Last Taken 06/01/23] clonidine HCl 0.1 mg tablet 0.1 mg PO BID BP 12/08/20 [History Last Taken 06/01/23] diclofenac sodium 1 % topical gel (Voltaren Arthritis Pain) 1 ea topical Q6H Pain 12/08/20 [History Last Taken 06/01/23] sertraline 100 mg tablet 100 mg PO DAILY Mood 12/08/20 [History Last Taken 06/01/23] gabapentin 300 mg capsule 300 mg PO BID Nerve Pain 30 days #60 caps 01/01/21 [Rx Last Taken 06/01/23] methocarbamol 750 mg tablet 750 mg PO Q8H pain 30 days #90 tabs 01/01/21 [Rx Last Taken 06/01/23] potassium chloride 20 mEq tablet,extended release(part/cryst) (Klor-Con M) 20 meq PO DAILYCM 30 days #30 tabs 01/01/21 [Rx Last Taken 06/01/23] hydroxyzine pamoate 25 mg capsule 25 mg PO QHS 30 days #30 caps 01/11/21 [Rx Last Taken 06/01/23] orphenadrine citrate 100 mg tablet,extended release 100 mg PO BID PRN muscle spasm #10 tabs 05/02/23 [Rx Last Taken 06/01/23] acetaminophen 500 mg tablet 1,000 mg PO Q6H PRN Pain Score 1-10 06/02/23 [History Last Taken 06/01/23] amlodipine 10 mg tablet 10 mg PO DAILY 06/02/23 [History Last Taken 06/01/23] diclofenac sodium 100 mg tablet,extended release 24 hr 100 mg PO DAILY 06/02/23 [History Last Taken 06/01/23] docusate sodium 100 mg capsule 100 mg PO DAILY 06/02/23 [History Last Taken 06/01/23] ketoconazole 2 % topical cream 1 applic topical DAILY 06/02/23 [History Last Taken 06/01/23] oxycodone-acetaminophen 5 mg-325 mg tablet 1 tab PO 4X/DAY PRN PRN pain 06/02/23 [History Last Taken 06/02/23] prednisone 10 mg tablet 10 mg PO DAILY STERIOD TAPER 06/02/23 [History Last Taken 06/01/23] spironolactone 25 mg tablet 25 mg PO DAILY 06/02/23 [History Last Taken 06/01/23] valsartan 160 mg tablet 160 mg PO DAILY 06/02/23 [History Last Taken 06/01/23] valsartan 80 mg tablet 80 mg PO DAILY 06/02/23 [History Last Taken 06/01/23] Allergy/AdvReac Type Severity Reaction Status Date / Time hydrocodone [From Vicodin] Allergy Anaphylaxis Verified 06/02/23 16:42 lorazepam [From Ativan] Allergy Hives Verified 06/02/23 16:42 neomycin Allergy Hives Verified 06/02/23 16:42 Family History (Updated 06/02/23 @ 20:[address] Monika Mendoza MD) Mother No problems noted. Father Leukemia Diabetes Surgical History History of adenoidectomy History of back surgery History of back surgery Hx of tonsillectomy Social History (Updated 06/02/23 @ 20:[address] Monika Mendoza MD) household members: family Smoking Status: Former smoker how long ago did patient quit smoking: Quit 45 yrs prior, smoked 1 ppd starting age 19 until quit. alcohol intake: former details: Drank heavily prior, sober x 45 years. substance use type: does not use Vital Signs Vital Signs Vital Signs: 06/04/2414:54 06/05/2419:23 06/05/2419:23 Temperature 98.0 F 99.1 F Temperature Source Temporal Oral Pulse Rate 82 88 Pulse Strength Respiratory Rate 18 16 Respiratory Effort Normal Respiratory Depth Normal Respiratory Pattern Normal Blood Pressure 138/92 H 152/73 H Blood Pressure Mean 107 99 Blood Pressure Source Monitor Blood Pressure Position Semi-Fowlers Blood Pressure Location Left Forearm Pulse Ox 95 96 Oxygen Delivery Method Room Air Room Air Room Air 06/05/2419:23 06/05/2419:23 06/06/2399:37 Temperature 99.1 F 98.2 F Temperature Source Oral Oral Pulse Rate 88 82 Pulse Strength Normal (2+) Respiratory Rate 16 16 Respiratory Effort Respiratory Depth Respiratory Pattern Blood Pressure 152/73 H 143/83 H Blood Pressure Mean 99 103 Blood Pressure Source Monitor Blood Pressure Position Semi-Fowlers Blood Pressure Location Left Forearm Pulse Ox 96 94 Oxygen Delivery Method Room Air Room Air 06/06/2399:37 06/05/2401:23 06/05/2406:31 Temperature 98.2 F Temperature Source Oral Pulse Rate 82 Pulse Strength Respiratory Rate 16 Respiratory Effort Normal Respiratory Depth Normal Respiratory Pattern Normal Blood Pressure 143/83 H Blood Pressure Mean 103 Blood Pressure Source Monitor Blood Pressure Position Semi-Fowlers Blood Pressure Location Left Forearm Pulse Ox 94 97 Oxygen Delivery Method Room Air Room Air Room Air 06/05/2406:54 06/05/2406:55 06/05/2406:55 Temperature 97 F L Temperature Source Temporal Pulse Rate 83 Pulse Strength Normal (2+) Respiratory Rate 18 Respiratory Effort Normal Respiratory Depth Normal Respiratory Pattern Normal Blood Pressure 136/78 H Blood Pressure Mean 97 Blood Pressure Source Monitor Blood Pressure Position Semi-Fowlers Blood Pressure Location Left Forearm Pulse Ox 94 Oxygen Delivery Method Room Air Room Air 06/05/2413:30 06/05/2413:30 Temperature 97.3 F L Temperature Source Temporal Pulse Rate 96 Pulse Strength Respiratory Rate 18 Respiratory Effort Normal Respiratory Depth Normal Respiratory Pattern Normal Blood Pressure 145/75 H Blood Pressure Mean 98 Blood Pressure Source Monitor Blood Pressure Position Semi-Fowlers Blood Pressure Location Left Arm Pulse Ox 94 Oxygen Delivery Method Room Air Weight Weight: 265 lb 3.457 oz Body Mass Index (BMI) 42.6 Physical Exam Narrative Examination of the back shows midline and bilateral paraspinal tenderness in lower lumbar spine. Neurologic evaluation of lower extremity shows baseline weakness in both lower extremities. Hip flexion is grade 3 bilaterally, associated with severe pain on the right. Quadriceps is 4 - bilaterally. Ankle dorsiflexion bilaterally is 4 -. EHL is grade 4 - on the left and grade 4 on the right. Plantarflexion is grade 4 bilaterally. Lab / Micro Data 06/05/23 06:05 06/05/23 06:05 Assessment & Plan Assessment/Plan (1) Intractable back pain: PLAN: Plan I reviewed her MRI of the lumbar spine done yesterday. This shows multilevel lumbar severe disc degeneration. Her x-rays show vacuum phenomenon at multiple upper lumbar levels. She has had T9-11 posterior decompression and fusion. L4-5 maintains good disc height on x-rays. MRI shows large central disc extrusion at L4-5 with inferior migration going behind the L5 vertebral body almost reaching L5-S1 disc. This is slightly larger on the left than the right but is predominantly central. This causes severe cauda equina compression. I explained to her the imaging findings in detail. She has a large extruded disc which is causing severe cauda equina compression at L4-5 migrating towards L5-S1. She has severe decline in her function over the last 5 weeks because of this. She has baseline thoracic and cervical myelopathy from which she has some baseline weakness in all 4 extremities. She is wheelchair-bound. I explained to her options of treatment which include epidural injections versus surgical microdiscectomy. Patient has a severe decline in her baseline function over the last 5 weeks which is not improving with time despite oral steroids and physical therapy. The volume of the disc herniation with cauda equina compression concerns me with possibility of cauda equina syndrome with an attempted injection. I explained to her that surgical microdiscectomy would likely improve the tension on the nerves and the compression and the radicular pain. It might not eliminate her axial low back pain or her baseline weakness in both lower extremities. I recommend L4-5 laminotomy and discectomy. All risk benefits and alternatives were discussed. The risks include but are not limited to infection, bleeding, injury to nerves and vessels, hematoma formation, need for further surgery, need for fusion, persistent pain, nerve injury, foot drop, DVT, pulmonary embolism, iatrogenic instability, pneumonia, atelectasis, cardiopulmonary event, recurrent disc herniation. Patient understands and agrees to proceed with surgery. Patient will be scheduled during this admission depending on or availability, likely morning. Patient was in agreement. All questions were answered. Consent was signed.
[2023-06-08] MEDS: Cefazolin 2 GM in 0.9% Normal Saline (100mL Bag) 100 ML IV (07:29)
[2023-06-08] MEDS: Dexamethasone IV Preserv Free 10 MG/ML VIAL IV (09:25)
[2023-06-08] MEDS: Bupivacaine Mpf 0.5% 30 ML VIAL (09:42)
--- NOTE | 2023-06-08 09:49 | PCM.OPRPT ---
Report of Operation Date of Procedure: 06/08/23 Description of Surgical Findings:: Preoperative diagnosis: L4-5 large central disc herniation Postoperative diagnosis: Same Name of procedure: L4-5 left sided laminotomy, discectomy CPT 84842 Attending Surgeon: Dr. Kwasi Cheatham Estimated blood loss: 20 mL Anesthesia: General Indications: Patient is a 67-year-old lady who presented with low back pain and severe bilateral lower extremity radiation. MRI revealed L4-5 large central disc herniation with inferior migration behind L5 body. At baseline, patient has been wheelchair-bound because of thoracic and cervical myelopathy which has already been surgically treated. All options of treatment were discussed which included continued nonoperative treatment measures like rest physical therapy, injections. After prolonged nonsurgical treatment, patient requested surgical intervention for decompression. All risks and benefits associated with the procedure were explained to the patient. The risks include but are not limited to infection, bleeding, injury to nerves and vessels, persistent paresthesia, incidental dural tear, recurrent disc herniation, spinal instability and need for fusion or other procedures in future, persistent pain, persistent weakness and numbness, etc. Procedure: The patient was identified in the preoperative holding suite using Unique patient identifiers. Skin was marked, consent was reviewed, and all questions were answered. The patient was then brought back to the operative room. A surgical timeout was performed to make sure correct procedure was being done on the correct patient and all operative room staff were on the same page. General endotracheal anesthesia was then given to the patient. The patient was then turned prone onto a Jamal table over a Huber frame. The back was prepped and draped in usual fashion. Preoperative antibiotic was injected IV. A final timeout was then again done just before starting the procedure. An 18-gauge spinal needle was inserted and was confirmed on C-arm lateral view to be at the L4-5 level. An incision was then carried out approximately 1.5 inch length in the midline. Bovie was utilized to dissect through the subcutaneous tissue up to the fascia. The fascia was bovied at the spinous process. Subperiosteal dissection was carried out along the left side of the spinous process and the lamina. This dissection was stopped at the level of the medial capsule of the facet joint. Lateral edge of the pars was also identified. A Sonya was then placed under the inferior edge of the lamina and a C-arm lateral view was repeated. The level was confirmed to be the L4-5 interspace. A Rawls retractor of appropriate depth was then placed to provide retraction throughout the remainder of the surgery. A christina was then utilized to make a laminotomy window medial to the facet and lateral to the spinous process. Care was taken to preserve at least 1 cm of bone from the lateral border of the pars. Once the bone was thinned out a Kerrison rongeur was utilized to complete the laminotomy. The ligamentum flavum was then removed with the help of pituitaries and Kerrison rongeurs. Ligamentum flavum in the lateral recess was then removed with Kerrison rongeur. The dura and traversing nerve root were then identified with the help of a [place] #4. A nerve root retractor was then utilized to retract the dura and the traversing nerve root medially. A cruciate incision over the annulus was performed. Disc fragments were then teased out with the help of a nerve hook and [place]. The nerve hook and [place] were then used to probe inferiorly and superiorly and medially to tease out more disc fragments. Further loose disc fragments from the disc space were also removed with help of pituitary. Partial superior laminotomy of the superior border of L5 lamina was also performed. L5 pars defect was noted. Traversing L5 left nerve root was identified. Axilla of the L5 nerve root was also identified and probed with the help of pain field followed by a nerve hook to remove any additional disc fragments behind the dura which were seen in the preoperative MRI. Irrigation of the disc space through an Angiocath was performed to remove any further loose disc fragments. once adequate decompression was obtained by removal of all loose disc fragments including the ones that were extruded, irrigation was done with normal saline. Valsalva maneuver was performed to confirm no dural leak as well as to push out any additional disc fragments from the disc space. Thorough irrigation was then given again. 10 mg of preservative-free dexamethasone was then sprinkled over the traversing nerve root. A small piece of Gelfoam was then placed over the bony window. The Rawls retractor was then removed. And closure was done in layers, 0 Vicryl for the deep fascia, 2-0 Vicryl for subcutaneous tissue, and 4-0 Monocryl for the skin. The deep fascial layer was closed in a watertight fashion with interrupted 0 Vicryl. The skin closure was augmented with Dermabond. 2 x 2 gauze was then placed over the wound covered with Tegaderm. The patient was then turned supine onto a hospital bed. The patient was extubated and taken to PACU in stable condition. The patient tolerated the procedure well and no complications occurred. Estimated blood loss for the entire surgery was 20 mL. No instrumentation was utilized in this case. No dural tear occurred in this case. I was present for the entirety of the case and performed the surgery myself. Admit VTE Documentation VTE Mechan Device Prophylaxis: SCD's Procedures Musculoskeletal [id number]: Other Procedure See Report
--- NOTE | 2023-06-08 10:17 | PCM.PN.ORT ---
Subjective Subjective Seen in PACU. Pain well-controlled. Able to actively move both toes and legs. Objective Data Objective Data Vital Signs: Vital Signs Temp Pulse Resp BP Pulse Ox O2 Del Method O2 Flow Rate 97.8 F 88 17 155/87 H 99 Room Air 2 06/08/23 06:09 06/08/23 06:09 06/08/23 06:09 06/08/23 06:09 06/08/23 06:09 06/08/23 06:09 06/05/23 10:37 Oxygen Flow Rate (L/min) 2 Oxygen Delivery Method Room Air Weight: 265 lb 3.457 oz Body Mass Index (BMI) 42.7 Intake & Output: Intake and Output for Last 24 Hours 06/06/23 06/07/23 06/08/23 23:59 23:59 23:59 Intake Total 250 / 250 940 / 940 110 / 110 Output Total 1000 / 1000 1600 / 2100 1150 / 1150 Balance -750 / -750 -660 / -1160 -1040 / -1040 Lab / Micro Data 06/08/23 05:17 06/08/23 05:17 Labs: Laboratory Results - last 24 hr 06/08/23 05:17: WBC 18.3 H, RBC 4.83, Hgb 13.3, Hct 40.8, MCV 84.5, MCH 27.5, MCHC 32.6, RDW Std Deviation 41.7, RDW Coeff of Laila 13.6, Plt Count 551 H, MPV 8.9, Immature Gran % (Auto) 0.700, Neut % (Auto) 90.3 H, Lymph % (Auto) 5.8 L, Baxter % (Auto) 3.0, Eos % (Auto) 0.1, Baso % (Auto) 0.1, Absolute Neuts (auto) 16.5 H, Absolute Lymphs (auto) 1.05, Nucleated RBC % 0, Sodium 130 L, Potassium 4.9, Chloride 99, Carbon Dioxide 27.0, Anion Gap 4 L, BUN 27 H, Creatinine 0.71, Estim Creat Clear Calc 87.70, Est GFR (MDRD) Af Amer 106, Est GFR (MDRD) Non-Af 87, BUN/Creatinine Ratio 38.2 H, Glucose 160 H, Calcium 9.7, Total Bilirubin 0.30, AST 19, ALT 44, Alkaline Phosphatase 131 H, Total Protein 7.2, Albumin 3.2, Globulin 4.0, Albumin/Globulin Ratio 0.8 L Physical Exam Narrative Dressing CDI. 2 pressure sores in the left buttock covered with foam dressing. Neurologically stable compared to baseline. Assessment & Plan Assessment/Plan (1) Status post lumbar discectomy: PLAN: Plan Postop day 0 status post left L4-5 laminotomy discectomy. Ancef x 2 doses, 3 g dose for her weight. No DVT chemoprophylaxis for 72 hours. SCDs for mechanical DVT prophylaxis. PT OT mobilization as much as tolerated. Would encourage transfer from bed to chair and back multiple times a day. Active and passive range of motion of all extremity joints. No bending lifting twisting in the lower back. Okay to transfer to rehab when medically stable. Will follow-up in clinic in 2 weeks.
[2023-06-08] MEDS: cloNIDine HCl 0.1 MG Tablet PO ×2 (11:59→22:16)
[2023-06-08] MEDS: Losartan Potassium 50 MG Tablet PO (11:59)
[2023-06-08] MEDS: Docusate Sodium 100 MG Capsule PO (12:00)
[2023-06-08] MEDS: amLODIPine 10 MG Tablet PO (12:00)
[2023-06-08] MEDS: dexAMETHasone 4 MG Tablet PO ×2 (12:00→16:31)
[2023-06-08] MEDS: Sertraline 100 MG Tablet PO (12:01)
[2023-06-08] MEDS: Spironolactone 25 MG Tablet PO (12:01)
[2023-06-08] MEDS: Ensure Surgery 237 ML LIQUID PO ×2 (12:12→16:36)
[2023-06-08] MEDS: Ketorolac 15 MG/ML Vial IV ×3 (12:12→23:28)
[2023-06-08] MEDS: Gabapentin 600 MG Tablet PO ×2 (12:12→16:30)
--- NOTE | 2023-06-08 14:11 | PCM.PN.HOSP ---
Reason for Visit Reason for Visit: Diagnoses Spinal stenosis, lumbar region without neurogenic claudication (06/06/23) Spinal stenosis, lumbar region with neurogenic claudication (06/06/23) Radiculopathy, lumbar region (06/06/23) Dorsalgia, unspecified (06/06/23) Other specified postprocedural states (06/06/23) Objective Data Objective Data Vital Signs: Vital Signs Temp Pulse Resp BP Pulse Ox O2 Del Method O2 Flow Rate 97.8 F 85 16 143/66 H 94 Room Air 2 06/08/23 13:50 06/08/23 13:50 06/08/23 13:50 06/08/23 13:50 06/08/23 13:50 06/08/23 13:50 06/05/23 10:37 Oxygen Flow Rate (L/min) 2 Oxygen Delivery Method Room Air Weight: 265 lb 3.457 oz Body Mass Index (BMI) 42.7 Intake & Output: Intake and Output for Last 24 Hours 06/06/23 06/07/23 06/08/23 23:59 23:59 23:59 Intake Total 250 / 250 940 / 940 110 / 110 Output Total 1000 / 1000 1600 / 2100 1150 / 1150 Balance -750 / -750 -660 / -1160 -1040 / -1040 Lab / Micro Data 06/08/23 05:17 06/08/23 05:17 Labs: Laboratory Results - last 24 hr 06/08/23 05:17: WBC 18.3 H, RBC 4.83, Hgb 13.3, Hct 40.8, MCV 84.5, MCH 27.5, MCHC 32.6, RDW Std Deviation 41.7, RDW Coeff of Laila 13.6, Plt Count 551 H, MPV 8.9, Immature Gran % (Auto) 0.700, Neut % (Auto) 90.3 H, Lymph % (Auto) 5.8 L, [place] % (Auto) 3.0, Eos % (Auto) 0.1, Baso % (Auto) 0.1, Absolute Neuts (auto) 16.5 H, Absolute Lymphs (auto) 1.05, Nucleated RBC % 0, Sodium 130 L, Potassium 4.9, Chloride 99, Carbon Dioxide 27.0, Anion Gap 4 L, BUN 27 H, Creatinine 0.71, Estim Creat Clear Calc 87.70, Est GFR (MDRD) Af Amer 106, Est GFR (MDRD) Non-Af 87, BUN/Creatinine Ratio 38.2 H, Glucose 160 H, Calcium 9.7, Total Bilirubin 0.30, AST 19, ALT 44, Alkaline Phosphatase 131 H, Total Protein 7.2, Albumin 3.2, Globulin 4.0, Albumin/Globulin Ratio 0.8 L Physical Exam Narrative Seen and examined. Patient returned from the OR, had surgery in the morning. Patient is sitting upright on the chair. Her pain is controlled. Discussed with the surgeon Dr. Cheatham. Admitted with back pain, sciatic in nature with radiation to right buttock, back of thigh, sciatica in nature past 4 weeks. Had cervical surgery and thoracic surgery in [facility]. Physical exam General: Alert, Oriented x3, Cooperative HEENT: Atraumatic, PERRLA, EOMI, Normocephalic Oral: Oral mucosa moist no Gingival or Mucosal Lesions/ Ulcerations Neck: Supple, No JVD, Negative Carotid Bruits Chest wall/Lungs: Air entry diminished in bilateral lung bases. No crepitation/rhonchi Cardiovascular: Irregular rhythm, Normal S1, Normal S2, systolic murmur Abdomen: Bowel Sounds Present, Soft, Non Tender, Non-Distended : No Atkins catheter. No dysuria. No renal angle tenderness. No suprapubic tenderness. Extremities: No edema, Capillary Refill Less than 3 Seconds Skin: Surgical dressing on the lumbar back is dry. Mild tenderness around the operative region. Musculoskeletal: SLR positive of right LE at 30 degree and left leg at 60 degree. Muscle strength 4/5 at knees and hips likely due to pain and spasm Neurological: Cranial nerves II-XII grossly intact, DTR 2+/4. L4-5 L5-S1 radiculopathy Psych/Mental Status: Flat affect Assessment & Plan Assessment/Plan (1) Intractable back pain: PLAN: Plan The patient is a 67 y/o F came to ED with low back pain and right lower extremity pain for about 1 month. History of 2 back surgeries in the past. Patient in wheelchair. She also has disequilibrium/loss of balance and near fall situation, guarded weight between the wall of the toilet on day of admission #1. Adult FTT secondary to Acute Intractable Back Pain lumbar spine with right lower extremity radiculopathy with adult failure to thrive, debility, inability to ambulate: [facility] PT and OT. Pain control, gabapentin, bowel regimen. Patient not able to lay flat for MRI lumbar spine, on the weekend but had MRI today in the morning 06/05: MRI finding discussed with the patient. Has severe central canal stenosis at L4-L5 and L5-S1 and large amount of extruded disc material. Pain seems better than yesterday. Spine surgeon Dr. Kwasi Cheatham called to see the patient in afternoon. Requested pain management consult Dr. Panchal for evaluation for epidural injection. On multiple opioid and steroid medications. Medrol oral Dosepak changed to dexamethasone. Tizanidine and oxycodone. 06/06: Patient evaluated by both spine surgeon Dr. Kwasi Cheatham and Dr. Wheatley. Scheduled for surgery tomorrow. Preop EKG and labs ordered. 06/07: Patient had L4-5 left-sided laminotomy, discectomy for large L4-5 central disc herniation. Clinically patient feels much improvement in pain after surgery. Surgical dressing is dry.Patient has leukocytosis from being on a steroid. Hyperglycemia from steroid.Patient does not have history of DM #2. Chronic normocytic anemia: Admission hemoglobin 11.1, MCV 86.4, baseline hemoglobin similar range, 06/04/23 Hgb 11, MCV 87.5. #3. Hypertension: Continue home regimen including valsartan, spironolactone, amlodipine, clonidine but clarifying, PRN hydralazine. #4. Hyperlipidemia: continue patient on statin therapy. #5. Anxiety and depression: We will continue patient home sertraline and hydroxyzine home regimen. #6. PAF: From current list does not appear to be on rate or rhythm agent, also does not appear to be on any anticoagulant therapy. Previously had been on both Xarelto and metoprolol 25 mg p.o. twice daily but does not appear to be taking this currently. If issues arise may restart. #7. COPD: Not on any chronic regimen, will place on ATC budesonide therapy, PRN albuterol, HOB, IS parameters. #8. Morbid Obesity: Weight loss and lifestyle changes encouraged. #9. Former alcohol abuse: Patient sober for 45 years, encourage continued complete sobriety. #10. Former tobacco use: Encourage continued tobacco cessation. #11. IRIS: BiPAP nightly. #12. DVT prophylaxis: Lovenox Accu-Chek before meals and at bedtime insulin coverage Humalog sliding scale. Held and will be hold for further 72 hours after surgery and next dose of 06/11/2023 at 10 AM. Bilateral SCDs #13. CODE status: Full code. Clinical Impression(s) from Imaging Studies Lumbar Spine X-Ray 06/02/23 18:35 IMPRESSION: No evidence of lumbar spinal fracture or spondylolisthesis. Severe multilevel degenerative disc disease and spondylosis. Lumbar Spine MRI 06/05/23 09:30 IMPRESSION: 1. Multilevel moderate to severe degenerative changes, as described above. 2. Severe central canal stenosis at L4-L5 and L5-S1 3. Large amount of extruded disc material originating from L4-L5 traveling down to the L5-S1 space Charges/Coding Visit Charges Inpatient E&M: 63088 Subs Hosp L2
[2023-06-08] MEDS: Cefazolin 3 GM in 0.9% Normal Saline (100mL Bag) 100 ML IV ×2 (16:29→23:31)
[2023-06-08] MEDS: Acetaminophen 500 MG Tablet 1000 MG PO ×2 (16:32→22:16)
[2023-06-08] MEDS: Pramipexole Di-HCl 0.25 MG Tablet PO (22:16)
[2023-06-08] MEDS: hydrOXYzine PAM 25 MG Capsule PO (22:16)
[2023-06-08] MEDS: Atorvastatin Calcium 10 MG Tablet PO (22:16)
[2023-06-08] MEDS: Losartan Potassium 25 MG Tablet PO (22:16)
[2023-06-09 03:31] VITALS: BMI 42.8
[2023-06-09 03:32] VITALS: BP 137/72; PULSE 78; RESP 16; TEMP 36.4; O2SAT 96
[2023-06-09] MEDS: 0.9% Normal Saline (250mL Bag) 250 ML 15 ML IV (03:33)
[2023-06-09 06:00] VITALS: BMI 42.3
[2023-06-09 06:01] LABS: Absolute Lymphocyte Count 0.71 X10^3/uL (0.83-4.51); Basophil# 0.03 X10^3/uL; Basophil% 0.1 % (0-1); Eosinophil# 0.01 X10^3/uL; Hematocrit 37.5 % (37-47); Hemoglobin 12.3 g/dL (12.0-15.0); Lymphocyte # 0.71 X10^3/ul (0.83-4.51); Lymphocyte % 2.7 % (19-41); Mean Corp Hgb Conc 32.8 g/dL (32-36); Mean Corpuscular Hgb 27.6 pg (27.0-32.0); Mean Corpuscular Volume 84.1 fL (81-99); Mean Platelet Vol. 8.9 fl (6.2-12.0); Monocyte# 1.21 X10^3/uL; Monocyte% 4.6 % (0-10); NRBC Flagged by Analyzer 0 % (0-5); Neutrophil # 23.98 X10^3/uL (2.7-7.7); Neutrophil % 91.8 % (47-70); POSITIVE DIFFERENTIAL YES; Platelet Count 506 K/mm3 (150-450); RBC Distribution Width CV 13.4 % (11.6-14.6); RBC Distribution Width SD 41.1 fl (35.1-43.9); Red Blood Count 4.46 M/mm3 (4.2-5.4); White Blood Count 26.2 K/mm3 (4.4-11.0)
[2023-06-09] MEDS: Ketorolac 15 MG/ML Vial IV (06:16)
[2023-06-09] MEDS: Acetaminophen 500 MG Tablet 1000 MG PO ×2 (06:16→15:11)
[2023-06-09 06:51] LABS: ALB/GLOB Ratio 0.8 RATIO (0.9-2.4); AST(SGOT) 22 U/L (15-37); Alanine Aminotransfer ALT/SGPT 26 U/L (13-56); Alkaline Phosphatase 124 U/L (45-117); Anion Gap 6 (5-15); BUN 32 mg/dL (7-18); BUN/Creat Ratio 39.9 RATIO (10-20); Calcium,Total 8.9 mg/dL (8.5-10.1); Chloride 99 mmol/L (98-107); EST Glomerular Filtration Rate 75 mL/min (>60); Est Glom Filt Rate - Afr Amer 91 mL/min (>60); Estimated Creatinine Clearance 87.36 ml/min; Globulin 3.8 g/dL (2.2-4.2); Glucose 149 mg/dL (74-106); Protein, Total 6.8 g/dL (6.4-8.2); Sodium Level 131 mmol/L (136-145)
[2023-06-09 07:16] LABS: Differential Indicated SCAN CRITERIA MET
[2023-06-09 07:17] LABS: Differential Comment SCANNED
[2023-06-09 07:31] VITALS: BP 128/95; PULSE 85; RESP 18; TEMP 36.8; O2SAT 95
[2023-06-09] MEDS: Gabapentin 600 MG Tablet PO ×2 (08:08→11:35)
[2023-06-09] MEDS: Ensure Surgery 237 ML LIQUID PO ×2 (08:08→11:34)
[2023-06-09] MEDS: dexAMETHasone 4 MG Tablet PO (08:08)
--- NOTE | 2023-06-09 09:26 | PCM.PN.ORT ---
Subjective Subjective Postop day 1 status post left L4-5 laminotomy discectomy. Patient seen in bed in reclined position without any significant pain. Pain is well-controlled. She said that preoperative lower extremity pain has resolved. She still has baseline weakness in both lower extremities and is wheelchair-bound for the last 2 years due to cervical thoracic myelopathy's. Objective Data Objective Data Vital Signs: Vital Signs Temp Pulse Resp BP Pulse Ox O2 Del Method O2 Flow Rate 98.3 F 85 18 128/95 H 95 Room Air 2 06/09/23 07:31 06/09/23 07:31 06/09/23 07:31 06/09/23 07:31 06/09/23 07:06/09/23 07:06/05/23 10:37 Oxygen Flow Rate (L/min) 2 Oxygen Delivery Method Room Air Weight: 263 lb 7.238 oz Body Mass Index (BMI) 42.3 Intake & Output: Intake and Output for Last 24 Hours 06/07/23 06/08/23 06/09/23 23:59 23:59 23:59 Intake Total 940 / 940 474 / 474 115 / 115 Output Total 1600 / 2100 1150 / 1550 800 / 800 Balance -660 / -1160 -676 / -1076 -685 / -685 Lab / Micro Data 06/09/23 05:35 06/09/23 05:35 Labs: Laboratory Results - last 24 hr 06/09/23 05:35: WBC 26.2 H, RBC 4.46, Hgb 12.3, Hct 37.5, MCV 84.1, MCH 27.6, MCHC 32.8, RDW Std Deviation 41.1, RDW Coeff of Laila 13.4, Plt Count 506 H, MPV 8.9, Immature Gran % (Auto) 0.800, Neut % (Auto) 91.8 H, Lymph % (Auto) 2.7 L, [place] % (Auto) 4.6, Eos % (Auto) 0.0, Baso % (Auto) 0.1, Absolute Neuts (auto) 24.0 H, Absolute Lymphs (auto) 0.71 L, Nucleated RBC % 0, Differential Comment SCANNED, Sodium 131 L, Potassium 5.0, Chloride 99, Carbon Dioxide 26.0, Anion Gap 6, BUN 32 H, Creatinine 0.80, Estim Creat Clear Calc 87.36, Est GFR (MDRD) Af Amer 91, Est GFR (MDRD) Non-Af 75, BUN/Creatinine Ratio 39.9 H, Glucose 149 H, Calcium 8.9, Total Bilirubin 0.30, AST 22, ALT 26, Alkaline Phosphatase 124 H, Total Protein 6.8, Albumin 3.0 L, Globulin 3.8, Albumin/Globulin Ratio 0.8 L Radiography Diagnostic Testing: Radiology Impression Spine X-Ray 06/08/23 06:30 IMPRESSION: Intraoperative imaging provided for L4-5 decompression. Electronically Signed: Francisco Zavaleta MD at 15:38 EDT , Physical Exam Narrative Examination the back shows dressing?CDI. Neurologically stable compared to preop. Patient has known sores in the left buttock region. Assessment & Plan Assessment/Plan (1) Status post lumbar discectomy: PLAN: Plan Postop day 1 status post discectomy. PT OT mobilization. Weightbearing as tolerated. Bed to chair and back multiple times a day if possible. Discharge to rehab when medically appropriate, okay from my perspective. Will follow-up in clinic in 2 weeks. Patient was in agreement.
--- NOTE | 2023-06-09 09:58 | CASEMGMT ---
Addendum entered by Lucila Rodarte 06/09/23 12:37: Social Work Referrals made to [facility], [facility] and [facility]. SW awaiting responses. JOSE Scruggs Original Note: Social Work SW spoke w/pt regarding placement. She would like TCU. She does think inpt rehab would be too much for her at this time, does not think she can manage 3 hours of therapy per day. SW did provide a list of intermediate facilities from [facility], complete w/quality and resource use data, in pt's insurance network and in pt's preferred geographic area. If TCU cannot take pt, she would be agreeable to a referral to [facility] and [facility] transitional units. SW made referral to TCU, therapy needs reviewed before can consider pt, therapy is pending. SW will make referrals to [facility] and [facility]. JOSE Scruggs
[2023-06-09] MEDS: Spironolactone 25 MG Tablet PO (10:06)
[2023-06-09] MEDS: Losartan Potassium 50 MG Tablet PO (10:07)
[2023-06-09] MEDS: cloNIDine HCl 0.1 MG Tablet PO (10:07)
[2023-06-09] MEDS: Docusate Sodium 100 MG Capsule PO (10:07)
[2023-06-09] MEDS: amLODIPine 10 MG Tablet PO (10:08)
[2023-06-09] MEDS: Meloxicam 15 MG Tablet PO (10:08)
[2023-06-09] MEDS: Sertraline 100 MG Tablet PO (10:09)
[2023-06-09 10:26] VITALS: O2SAT 94
[2023-06-09] MEDS: oxyCODONE 5 MG Tablet 10 MG PO (11:35)
--- NOTE | 2023-06-09 14:10 | CASEMGMT ---
Social Work [facility] declined pt. [facility] accepted, can take pt when she is ready. SW let pt know, she is very much wanting TCU and agreeable to TCU when she is ready, SW did let her know it may be today. SW also had pt sign a release of records for her surgeon and sent it to medical records for pt. SW texted physician, let him know TCU can take pt today. SW awaiting a response. JOSE Scruggs
--- NOTE | 2023-06-09 14:48 | PCM.TXEXTCAR ---
Diet Diet Order/Speech Therapy: 06/08/23 09:43 Diet: Regular - General Is pt able to select menu?: Yes Routine Orders/Code Status Suppository Type: Dulcolax 10mg Suppository Frequency: Daily PRN Wound(s) LT buttock: Wound Type: Pressure Injury LT thigh-posteriorly: Wound Type: Pressure Injury right lower back: Wound Type: Surgical Incision Therapies Weight Bearing: Weight bearing as tolerated Extremity Affected:: Bilateral Lower Physical Therapy: Eval and Treat Occupational Therapy: Eval and Treat Speech Therapy: Eval and Treat Problem/Diagnosis (1) Status post lumbar discectomy: Status: Acute Code(s): Z98.890 - Other specified postprocedural states Plan The patient is a 67 y/o F came to ED with low back pain and right lower extremity pain for about 1 month. History of 2 back surgeries in the past. Patient in wheelchair. She also has disequilibrium/loss of balance and near fall situation, guarded weight between the wall of the toilet on day of admission #1. Adult FTT secondary to Acute Intractable Back Pain lumbar spine with right lower extremity radiculopathy with adult failure to thrive, debility, inability to ambulate: Patient being admitted on [facility] floor. PT and OT. Pain control, gabapentin, bowel regimen. Patient not able to lay flat for MRI lumbar spine, on the weekend but had MRI today in the morning 06/05: MRI finding discussed with the patient. Has severe central canal stenosis at L4-L5 and L5-S1 and large amount of extruded disc material. Pain seems better than yesterday. Spine surgeon Dr. Kwasi Cheatham called to see the patient in afternoon. Requested pain management consult Dr. Panchal for evaluation for epidural injection. On multiple opioid and steroid medications. Medrol oral Dosepak changed to dexamethasone. Tizanidine and oxycodone. 06/06: Patient evaluated by both spine surgeon Dr. Kwasi Cheatham and Dr. Wheatley. Scheduled for surgery tomorrow. Preop EKG and labs ordered. 06/07: Patient had L4-5 left-sided laminotomy, discectomy for large L4-5 central disc herniation. Clinically patient feels much improvement in pain after surgery. Surgical dressing is dry.Patient has leukocytosis from being on a steroid. Hyperglycemia from steroid.Patient does not have history of DM #2. Chronic normocytic anemia: Admission hemoglobin 11.1, MCV 86.4, baseline hemoglobin similar range, 06/04/23 Hgb 11, MCV 87.5. #3. Hypertension: Continue home regimen including valsartan, spironolactone, amlodipine, clonidine but clarifying, PRN hydralazine. #4. Hyperlipidemia: continue patient on statin therapy. #5. Anxiety and depression: We will continue patient home sertraline and hydroxyzine home regimen. #6. PAF: From current list does not appear to be on rate or rhythm agent, also does not appear to be on any anticoagulant therapy. Previously had been on both Xarelto and metoprolol 25 mg p.o. twice daily but does not appear to be taking this currently. If issues arise may restart. #7. COPD: Not on any chronic regimen, will place on ATC budesonide therapy, PRN albuterol, HOB, IS parameters. #8. Morbid Obesity: Weight loss and lifestyle changes encouraged. #9. Former alcohol abuse: Patient sober for 45 years, encourage continued complete sobriety. #10. Former tobacco use: Encourage continued tobacco cessation. #11. IRIS: BiPAP nightly. #12. DVT prophylaxis: Lovenox Accu-Chek before meals and at bedtime insulin coverage Humalog sliding scale. Held and will be hold for further 72 hours after surgery and next dose of 06/11/2023 at 10 AM. Bilateral SCDs #13. CODE status: Full code. Clinical Impression(s) from Imaging Studies Lumbar Spine X-Ray 06/02/23 18:35 IMPRESSION: No evidence of lumbar spinal fracture or spondylolisthesis. Severe multilevel degenerative disc disease and spondylosis. Lumbar Spine MRI 06/05/23 09:30 IMPRESSION: 1. Multilevel moderate to severe degenerative changes, as described above. 2. Severe central canal stenosis at L4-L5 and L5-S1 3. Large amount of extruded disc material originating from L4-L5 traveling down to the L5-S1 space Allergies/Procedures Done in Hospital Allergies hydrocodone [From Vicodin] Allergy (Verified 06/02/23 16:42) Anaphylaxis lorazepam [From Ativan] Allergy (Verified 06/02/23 16:42) Hives neomycin Allergy (Verified 06/02/23 16:42) Hives Type of Care/Length of Stay Estimated LOS: Convalescent Care Less Than 30 days Type of Care Needed: Skilled Rehab Potential: Good Prognosis: Good Additional Orders/Day of Discharge Day of Discharge: 06/09/23 Dietary and Speech Recommendations Dietitian Recommendations/Changes: continue cardiac diet as ordered; ONS only if PO intake at meals fails Discharge Plan Admission Admit Date/Time: 06/06/23 12:51 Attending Provider: Lamont Arzate Primary Care Provider: Alissa Doty Consulting Providers: Monika Mendoza; Kwasi Cheatham Instructions Additional Instructions / Restrictions: Hold antihypertensive medications clonidine, amlodipine and valsartan if SBP less than 130 mmHg Discharge Orders/Prescriptions Prescriptions: New tizanidine 2 mg Tablet 2 mg PO Q8H PRN PRN (Reason: muscle spasms) Qty: 0 0RF sennosides-docusate sodium [Stool Softener-Stimulant Laxat] 8.6-50 mg Tablet 2 tab PO BID Qty: 0 0RF gabapentin 600 mg Tablet 600 mg PO TIDCM Qty: 0 0RF meloxicam 15 mg Tablet 15 mg PO DAILY Qty: 0 0RF Rx Instructions: For about 1 week acetaminophen 500 mg Tablet 1,000 mg PO Q8 Qty: 0 0RF Rx Instructions: 3 times daily for 1 week and then 3 times daily as needed for severe pain dexamethasone 4 mg Tablet 2 mg PO BIDCM Qty: 0 0RF Rx Instructions: Decreased to 2 mg twice daily for 3 days 06/12/2023 and 2 mg once daily for 3 days till 06/15/2023 and then 1 mg daily for 3 days till 06/18/2023 and then stop. oxycodone 5 mg Tablet 2.5 - 5 mg PO Q4H PRN PRN (Reason: Pain Score 6-10) Qty: 0 0RF Continued clonidine HCl 0.1 MG tablet 0.1 mg PO BID atorvastatin 10 MG tablet 10 mg PO DAILY@2200 sertraline 100 MG tablet 100 mg PO DAILY cholecalciferol (vitamin D3) [Vitamin D3] 1,000 UNIT tablet 2,000 unit PO DAILY hydroxyzine pamoate 25 mg Capsule 25 mg PO QHS 30 Days Qty: 30 0RF Patient Comments: PT UNSURE IF SHE TAKES THIS MED amlodipine 10 mg tablet 10 mg PO DAILY ketoconazole 2 % cream 1 applic topical DAILY valsartan 80 mg tablet 80 mg PO DAILY Patient Comments: TAKE 160MG IN THE MORNING AND 80 MG IN THE EVENING spironolactone 25 mg tablet 25 mg PO DAILY valsartan 160 mg tablet 160 mg PO DAILY Patient Comments: TAKE 160MG IN THE MORNING AND 80 MG IN THE EVENING Held diclofenac sodium [Voltaren Arthritis Pain] 1 % Gel 1 ea TOPICAL Q6H Hold Instructions: Hold for now orphenadrine citrate 100 mg tablet extended release 100 mg PO BID PRN (Reason: muscle spasm) Qty: 10 0RF Hold Instructions: Hold if as patient already on NSAIDs and oxycodone. Discontinued potassium chloride [Klor-Con M20] 20 mEq Tablet,Er Particles/Crystals 20 meq PO DAILYCM 30 Days Qty: 30 0RF methocarbamol 750 mg Tablet 750 mg PO Q8H 30 Days Qty: 90 0RF gabapentin 300 MG capsule 300 mg PO BID 30 Days Qty: 60 0RF diclofenac sodium 100 mg tablet extended release 24 hr 100 mg PO DAILY oxycodone-acetaminophen 5-325 mg tablet 1 tab PO 4X/DAY PRN PRN (Reason: pain) prednisone 10 mg tablet 10 mg PO DAILY acetaminophen 500 mg Tablet 1,000 mg PO Q6H PRN (Reason: Pain Score 1-10) docusate sodium 100 mg capsule 100 mg PO DAILY Referrals / Follow Up: Alissa Doty MD [Primary Care Provider] - Kwasi Cheatham MD [Med Staff - Active Staff] - Within 2 Weeks Disposition Disposition (needs filled in before D/C Order can be placed): Residential Facility
[2023-06-09 14:59] VITALS: BP 108/61; PULSE 93; RESP 16; TEMP 36.6; O2SAT 95
--- NOTE | 2023-06-09 14:59 | DS.PCM_ITS ---
Providers Date of Admission: 06/06/23 Date of Discharge: 06/09/23 Primary Care Physician: Dr. Alissa Doty MD Consultations 06/06/23 11:46 Consult: Orthopedics Routine Consulting Provider: Kwasi Cheatham Reason for Consult: Severe L4-5, L5-S1 canal stenosis with disc extrusion, sciatic pain, spasm EMERGENT Consult: No MD Notified: Yes Date Notified: 06/06/23 Time Notified: 11:46 Method of Notification: Verbal Reason For Visit: INTRACTABLE BACK PAIN Diagnosis Discharge Diagnosis (1) Status post lumbar discectomy: Status: Acute Code(s): Z98.890 - Other specified postprocedural states Plan The patient is a 67 y/o F came to ED with low back pain and right lower extremity pain for about 1 month. History of 2 back surgeries in the past. Patient in wheelchair. She also has disequilibrium/loss of balance and near fall situation, guarded weight between the wall of the toilet on day of admission #1. Adult FTT secondary to Acute Intractable Back Pain lumbar spine with right lower extremity radiculopathy with adult failure to thrive, debility, inability to ambulate: Patient being admitted on [facility] floor. PT and OT. Pain control, gabapentin, bowel regimen. Patient not able to lay flat for MRI lumbar spine, on the weekend but had MRI today in the morning 06/05: MRI finding discussed with the patient. Has severe central canal stenosis at L4-L5 and L5-S1 and large amount of extruded disc material. Pain seems better than yesterday. Spine surgeon Dr. Kwasi Cheatham called to see the patient in afternoon. Requested pain management consult Dr. Panchal for evaluation for epidural injection. On multiple opioid and steroid medications. Medrol oral Dosepak changed to dexamethasone. Tizanidine and oxycodone. 06/06: Patient evaluated by both spine surgeon Dr. Kwasi Cheatham and Dr. Wheatley. Scheduled for surgery tomorrow. Preop EKG and labs ordered. 06/07: Patient had L4-5 left-sided laminotomy, discectomy for large L4-5 central disc herniation. Clinically patient feels much improvement in pain after surgery. Surgical dressing is dry.Patient has leukocytosis from being on a steroid. Hyperglycemia from steroid.Patient does not have history of DM 06/08: Patient is doing good. Sitting upright with legs hanging from the side of the bed. Surgical dressing is dry. No significant tenderness. Patient able to lift both legs. Pain has much improved after the dressing. Patient is discharged to TCU with tapering dose of dexamethasone to 2 mg twice daily for 3 days, 1 mg twice daily for 3 days and then 1 mg once daily and then stop. Patient also on meloxicam, Neurontin, tizanidine and oxycodone for pain control #2. Chronic normocytic anemia: Admission hemoglobin 11.1, MCV 86.4, baseline hemoglobin similar range, 06/04/23 Hgb 11, MCV 87.5. #3. Hypertension: Continue home regimen including valsartan, spironolactone, am lodipine, clonidine but clarifying, PRN hydralazine. 06/08 blood pressure is controlled. Patient on valsartan, spironolactone and amlodipine #4. Hyperlipidemia: continue patient on statin therapy. #5. Anxiety and depression: We will continue patient home sertraline and hydroxyzine home regimen. #6. PAF: From current list does not appear to be on rate or rhythm agent, also does not appear to be on any anticoagulant therapy. Previously had been on both Xarelto and metoprolol 25 mg p.o. twice daily but does not appear to be taking this currently. If issues arise may restart. #7. COPD: Not on any chronic regimen, will place on ATC budesonide therapy, PRN albuterol, HOB, IS parameters. #8. Morbid Obesity: Weight loss and lifestyle changes encouraged. #9. Former alcohol abuse: Patient sober for 45 years, encourage continued complete sobriety. #10. Former tobacco use: Encourage continued tobacco cessation. #11. IRIS: BiPAP nightly. #12. DVT prophylaxis: Lovenox Accu-Chek before meals and at bedtime insulin coverage Humalog sliding scale. Held and will be hold for further 72 hours after surgery and next dose of 06/11/2023 at 10 AM. Bilateral SCDs #13. CODE status: Full code. Discharge medication reconciliation done. Discharge follow-up instructions completed. Discharge process discussed with the patient and all questions were answered to patient's satisfaction. Follow with PCP in 1 to 2 weeks Total time spent, exact 35 minutes on discharge meds reconciliation, examination, coordination of care with nurses and ancillary staff, review of imaging and blood test and discussion with the patient on follow-up instructions. Clinical Impression(s) from Imaging Studies Lumbar Spine X-Ray 06/02/23 18:35 IMPRESSION: No evidence of lumbar spinal fracture or spondylolisthesis. Severe multilevel degenerative disc disease and spondylosis. Lumbar Spine MRI 06/05/23 09:30 IMPRESSION: 1. Multilevel moderate to severe degenerative changes, as described above. 2. Severe central canal stenosis at L4-L5 and L5-S1 3. Large amount of extruded disc material originating from L4-L5 traveling down to the L5-S1 space Medications at Discharge Home Medications atorvastatin 10 mg tablet 10 mg PO DAILY@2200 Cholesterol 12/08/20 cholecalciferol (vitamin D3) 25 mcg (1,000 unit) tablet (Vitamin D3) 2,000 unit PO DAILY Supplement 12/08/20 clonidine HCl 0.1 mg tablet 0.1 mg PO BID BP 12/08/20 diclofenac sodium 1 % topical gel (Voltaren Arthritis Pain) 1 ea topical Q6H Pain 12/08/20 sertraline 100 mg tablet 100 mg PO DAILY Mood 12/08/20 hydroxyzine pamoate 25 mg capsule 25 mg PO QHS 30 days #30 caps 01/11/21 orphenadrine citrate 100 mg tablet,extended release 100 mg PO BID PRN muscle spasm #10 tabs 05/02/23 amlodipine 10 mg tablet 10 mg PO DAILY 06/02/23 ketoconazole 2 % topical cream 1 applic topical DAILY 06/02/23 spironolactone 25 mg tablet 25 mg PO DAILY 06/02/23 valsartan 160 mg tablet 160 mg PO DAILY 06/02/23 valsartan 80 mg tablet 80 mg PO DAILY 06/02/23 acetaminophen 500 mg tablet 1,000 mg (2 x 500 mg) PO Q8 #0 tabs 06/09/23 dexamethasone 4 mg tablet 2 mg (1/2 x 4 mg) PO BIDCM #0 tabs 06/09/23 gabapentin 600 mg tablet 600 mg PO TIDCM #0 tabs 06/09/23 meloxicam 15 mg tablet 15 mg PO DAILY #0 tabs 06/09/23 oxycodone 5 mg tablet 2.5 - 5 mg (0.5 - 1 x 5 mg) PO Q4H PRN PRN Pain Score 6-10 #0 tabs 06/09/23 sennosides 8.6 mg-docusate sodium 50 mg tablet (Stool Softener-Stimulant Laxative) 2 tab PO BID #0 tabs 06/09/23 tizanidine 2 mg tablet 2 mg PO Q8H PRN PRN muscle spasms #0 tabs 06/09/23 Physical Exam Narrative Seen and examined. Back pain has much improved. Patient is sitting upright on the chair. Her pain is controlled. Discussed with the surgeon Dr. Cheatham. Admitted with back pain, sciatic in nature with radiation to right buttock, back of thigh, sciatica in nature past 4 weeks. Had cervical surgery and thoracic surgery in [facility]. Physical exam General: Alert, Oriented x3, Cooperative HEENT: Atraumatic, PERRLA, EOMI, Normocephalic Oral: Oral mucosa moist no Gingival or Mucosal Lesions/ Ulcerations Neck: Supple, No JVD, Negative Carotid Bruits Chest wall/Lungs: Air entry diminished in bilateral lung bases. No crepitation/rhonchi Cardiovascular: Irregular rhythm, Normal S1, Normal S2, systolic murmur Abdomen: Bowel Sounds Present, Soft, Non Tender, Non-Distended : No Atkins catheter. No dysuria. No renal angle tenderness. No suprapubic tenderness. Extremities: No edema, Capillary Refill Less than 3 Seconds Skin: Surgical dressing on the lumbar back is dry. Mild tenderness around the operative region. Musculoskeletal: Numbness tingling improved. Muscle strength 4+/5 at knees and hips likely due to pain and spasm Neurological: Cranial nerves II-XII grossly intact, DTR 2+/4. L4-5 L5-S1 radiculopathy pain has much improved. Psych/Mental Status: Flat affect Weight / BMI Weight Weight: 263 lb 7.238 oz Body Mass Index (BMI) 42.3 ABG / Lab / Microbiology Data 06/09/23 05:35 06/09/23 05:35 Laboratory: Laboratory Results - last 24 hr 06/09/23 05:35: WBC 26.2 H, RBC 4.46, Hgb 12.3, Hct 37.5, MCV 84.1, MCH 27.6, MCHC 32.8, RDW Std Deviation 41.1, RDW Coeff of Laila 13.4, Plt Count 506 H, MPV 8.9, Immature Gran % (Auto) 0.800, Neut % (Auto) 91.8 H, Lymph % (Auto) 2.7 L, Kerr % (Auto) 4.6, Eos % (Auto) 0.0, Baso % (Auto) 0.1, Absolute Neuts (auto) 24.0 H, Absolute Lymphs (auto) 0.71 L, Nucleated RBC % 0, Differential Comment SCANNED, Sodium 131 L, Potassium 5.0, Chloride 99, Carbon Dioxide 26.0, Anion Gap 6, BUN 32 H, Creatinine 0.80, Estim Creat Clear Calc 87.36, Est GFR (MDRD) Af Amer 91, Est GFR (MDRD) Non-Af 75, BUN/Creatinine Ratio 39.9 H, Glucose 149 H , Calcium 8.9, Total Bilirubin 0.30, AST 22, ALT 26, Alkaline Phosphatase 124 H, Total Protein 6.8, Albumin 3.0 L, Globulin 3.8, Albumin/Globulin Ratio 0.8 L Radiography Diagnostic Testing: Radiology Impression Spine X-Ray 06/08/23 06:30 IMPRESSION: Intraoperative imaging provided for L4-5 decompression. Electronically Signed: Francisco Zavaleta MD at 15:38 EDT , Meaningful Use Info Meaningful Use Meaningful Use Diagnoses (Choose all that apply): None applicable Ischemic Stroke Statin Dosing Therapy Reference: STATIN DOSE THERAPY REFERENCE: * Patients > 75 years receive moderate or high dose statin therapy. * Patients 75 years or YOUNGER should receive HIGH intensity statin dose unless contraindicated. You will be required to document reason for non-treatment if statin daily dose does not meet guidelines. HIGH DOSE STATIN THERAPY DAILY Atorvastatin > than or = to 40 mg Rosuvastatin > than or = to 20 mg Amlodipine + Atorvastatin > than or = to 2.5/40 mg Ezetimibe + Simvastatin 10/80 mg Simvastatin 80mg Discharge Plan Admission Admit Date/Time: 06/06/23 12:51 Attending Provider: Lamont Arzate Primary Care Provider: Alissa Doty Consulting Providers: Monika Mendoza; Kwasi Cheatham Instructions Additional Instructions / Restrictions: Hold antihypertensive medications clonidine, amlodipine and valsartan if SBP less than 130 mmHg Discharge Orders/Prescriptions Prescriptions: New tizanidine 2 mg Tablet 2 mg PO Q8H PRN PRN (Reason: muscle spasms) Qty: 0 0RF sennosides-docusate sodium [Stool Softener-Stimulant Laxat] 8.6-50 mg Tablet 2 tab PO BID Qty: 0 0RF gabapentin 600 mg Tablet 600 mg PO TIDCM Qty: 0 0RF meloxicam 15 mg Tablet 15 mg PO DAILY Qty: 0 0RF Rx Instructions: For about 1 week acetaminophen 500 mg Tablet 1,000 mg PO Q8 Qty: 0 0RF Rx Instructions: 3 times daily for 1 week and then 3 times daily as needed for severe pain dexamethasone 4 mg Tablet 2 mg PO BIDCM Qty: 0 0RF Rx Instructions: Decreased to 2 mg twice daily for 3 days 06/12/2023 and 2 mg once daily for 3 days till 06/15/2023 and then 1 mg daily for 3 days till 06/18/2023 and then stop. oxycodone 5 mg Tablet 2.5 - 5 mg PO Q4H PRN PRN (Reason: Pain Score 6-10) Qty: 0 0RF Continued clonidine HCl 0.1 MG tablet 0.1 mg PO BID atorvastatin 10 MG tablet 10 mg PO DAILY@2200 sertraline 100 MG tablet 100 mg PO DAILY cholecalciferol (vitamin D3) [Vitamin D3] 1,000 UNIT tablet 2,000 unit PO DAILY hydroxyzine pamoate 25 mg Capsule 25 mg PO QHS 30 Days Qty: 30 0RF Patient Comments: PT UNSURE IF SHE TAKES THIS MED amlodipine 10 mg tablet 10 mg PO DAILY ketoconazole 2 % cream 1 applic topical DAILY valsartan 80 mg tablet 80 mg PO DAILY Patient Comments: TAKE 160MG IN THE MORNING AND 80 MG IN THE EVENING spironolactone 25 mg tablet 25 mg PO DAILY valsartan 160 mg tablet 160 mg PO DAILY Patient Comments: TAKE 160MG IN THE MORNING AND 80 MG IN THE EVENING Held diclofenac sodium [Voltaren Arthritis Pain] 1 % Gel 1 ea TOPICAL Q6H Hold Instructions: Hold for now orphenadrine citrate 100 mg tablet extended release 100 mg PO BID PRN (Reason: muscle spasm) Qty: 10 0RF Hold Instructions: Hold if as patient already on NSAIDs and oxycodone. Discontinued potassium chloride [Klor-Con M20] 20 mEq Tablet,Er Particles/Crystals 20 meq PO DAILYCM 30 Days Qty: 30 0RF methocarbamol 750 mg Tablet 750 mg PO Q8H 30 Days Qty: 90 0RF gabapentin 300 MG capsule 300 mg PO BID 30 Days Qty: 60 0RF diclofenac sodium 100 mg tablet extended release 24 hr 100 mg PO DAILY oxycodone-acetaminophen 5-325 mg tablet 1 tab PO 4X/DAY PRN PRN (Reason: pain) prednisone 10 mg tablet 10 mg PO DAILY acetaminophen 500 mg Tablet 1,000 mg PO Q6H PRN (Reason: Pain Score 1-10) docusate sodium 100 mg capsule 100 mg PO DAILY Referrals / Follow Up: Kwasi Cheatham MD [Med Staff - Active Staff] - Within 2 Weeks Alissa Doty MD [Primary Care Provider] - Disposition Disposition (needs filled in before D/C Order can be placed): Half-Way Facility Charges/Coding Visit Charges Inpatient E&M: 31491 Disch Hosp >30min
--- NOTE | 2023-06-09 15:25 | PHA.DC.MR.R ---
Pharmacy [place] Med Reconciliation Pharmacy Service has performed discharge medication reconciliation for this patient. The patient's discharge medication list was reviewed for discrepancies and discrepancies were resolved. Medications at Discharge Home Medications atorvastatin 10 mg tablet 10 mg PO DAILY@2200 Cholesterol 12/08/20 cholecalciferol (vitamin D3) 25 mcg (1,000 unit) tablet (Vitamin D3) 2,000 unit PO DAILY Supplement 12/08/20 clonidine HCl 0.1 mg tablet 0.1 mg PO BID BP 12/08/20 diclofenac sodium 1 % topical gel (Voltaren Arthritis Pain) 1 ea topical Q6H Pain 12/08/20 sertraline 100 mg tablet 100 mg PO DAILY Mood 12/08/20 hydroxyzine pamoate 25 mg capsule 25 mg PO QHS 30 days #30 caps 01/11/21 orphenadrine citrate 100 mg tablet,extended release 100 mg PO BID PRN muscle spasm #10 tabs 05/02/23 amlodipine 10 mg tablet 10 mg PO DAILY 06/02/23 ketoconazole 2 % topical cream 1 applic topical DAILY 06/02/23 spironolactone 25 mg tablet 25 mg PO DAILY 06/02/23 valsartan 160 mg tablet 160 mg PO DAILY 06/02/23 valsartan 80 mg tablet 80 mg PO DAILY 06/02/23 acetaminophen 500 mg tablet 1,000 mg (2 x 500 mg) PO Q8 #0 tabs 06/09/23 dexamethasone 4 mg tablet 2 mg (1/2 x 4 mg) PO BIDCM #0 tabs 06/09/23 gabapentin 600 mg tablet 600 mg PO TIDCM #0 tabs 06/09/23 meloxicam 15 mg tablet 15 mg PO DAILY #0 tabs 06/09/23 oxycodone 5 mg tablet 2.5 - 5 mg (0.5 - 1 x 5 mg) PO Q4H PRN PRN Pain Score 6-10 #0 tabs 06/09/23 sennosides 8.6 mg-docusate sodium 50 mg tablet (Stool Softener-Stimulant Laxative) 2 tab PO BID #0 tabs 06/09/23 tizanidine 2 mg tablet 2 mg PO Q8H PRN PRN muscle spasms #0 tabs 06/09/23
--- NOTE | 2023-06-09 15:32 | CASEMGMT ---
Social Work Pt is discharged today to TCU. SW faxed over med list and transfer to extended care. SW let pt know, she was aware. No further needs, pt to TCU, skilled today. JOSE Scruggs
== END 2023-06-09 16:26 | disposition skilled nursing facility (03) | DRG 519 ==
LOC: ED 18:24 → MS3 18:32
PROVIDERS: Orthopaedic Surgery Orthopaedic Surgery of the Spine; Admitting Provider Family Medicine; Emergency Provider Emergency Medicine; PCP Internal Medicine; Referring Provider Family Medicine; Visit Provider Internal Medicine
PROC: 0SB20ZZ Excision of Lumbar Vertebral Disc, Open Approach (ICD-10-PCS; CPT 63030; principal; 2023-06-08 07:00)
DX: M51.16 Intervertebral disc disorders with radiculopathy, lumbar region (principal); G83.4 Cauda equina syndrome; Z68.41 Body mass index [BMI] 40.0-44.9, adult; L89.322 Pressure ulcer of left buttock, stage 2; I48.0 Paroxysmal atrial fibrillation; E66.01 Morbid (severe) obesity due to excess calories; R62.7 Adult failure to thrive; J44.9 Chronic obstructive pulmonary disease, unspecified; I10 Essential (primary) hypertension; F32.A Depression, unspecified; F10.11 Alcohol abuse, in remission; F41.9 Anxiety disorder, unspecified; M48.061 Spinal stenosis, lumbar region without neurogenic claudication; E78.5 Hyperlipidemia, unspecified; G47.33 Obstructive sleep apnea (adult) (pediatric); M17.0 Bilateral primary osteoarthritis of knee; M48.07 Spinal stenosis, lumbosacral region; R53.81 Other malaise; T38.0X5A Adverse effect of glucocorticoids and synthetic analogues, initial encounter; R73.9 Hyperglycemia, unspecified; G89.29 Other chronic pain; F40.240 Claustrophobia; Z91.81 History of falling; Z99.3 Dependence on wheelchair; Z79.52 Long term (current) use of systemic steroids; Z98.1 Arthrodesis status; Z87.891 Personal history of nicotine dependence
CPT/HCPCS: 36415; 72020; 72100; 72148; 76000; 80053; 81001; 85025; 93005; 94668; 94762; 97110; 97162; 97166; 97530; 97535; 97802; 99284; J7030; J7050; J7120; A4216; J2405

== ENCOUNTER 2023-06-09 16:32 | Inpatient (IN) | payer MEDICARE, OTHER, SELFPAY ==
[2023-06-09 17:00] VITALS: BP 164/78; PULSE 87; RESP 14; TEMP 36.6; O2SAT 95
[2023-06-09 17:02] VITALS: BMI 41.6
[2023-06-09 17:11] VITALS: BMI 41.4
--- NOTE | 2023-06-09 19:05 | PCM.HP.STD ---
HPI - General General Date of Admission: 06/09/23 Date of Service: 06/09/23 Chief Complaint: Here for rehabilitation. HPI Narrative 06/02/2023 BARBARA KARIMI, is a 67 Female who presents to [facility] ED with lower extremity injury. Chronic back pain, sciatica, presents with low back pain, right lower extremity pain x 1 month. 2 spine surgeries in the past (cervical, thoracic), [facility] spine surgeon. Wheelchair bound 2/2 previous back surgery. Low back pain causing her to sleep leaning forwards. Wedged between wall, and toilet, no fall. Unable to go home, wants placement, lives alone, but niece, and friends stop by daily. on Oxycodone, Norflex, for pain. Oxycodone given. WBC 14.1, X-ray LS spine okay. 06/02/2023 Admit [facility]. PT/OT debility. Pain control, MRI LS spine for low back pain, consider pain management consultation. 06/03/2023 Pain improved. 06/04/2023 Pain improved, MRI LS spine deferred, unable to lie flat in MRI machine for now. PT/OT for discharge planning. 06/05/2023 MRI LS spine done. 06/06/2023 MRI shows L4-L5, L5-S1 severe central canal stenosis. Large amount extruded disc material. Pain better. Medrol dose pack changed to Dexamethasone, continue Tizanidine, Oxycodone. 06/06/2023 Dr. Wheatley recommended holding epidural steroid injection 2/2 upcoming spine surgery. 06/07/2023 Pain better, planning surgery. 06/08/2023 Dr. Cheatham L4-5, left sided laminotomy, discectomy. 06/08/2023 Pain controlled, much improved after surgery. Hyperglycemia 2/2 steroids, no history of diabetes. 06/09/2023 Admit to TCU with debility, here for rehabilitation, strengthening, prior to discharge home alone. [facility] Medical History (Updated 06/09/23 @ 19:[address] Darrel Karimi MD) Anxiety and depression Atrial fibrillation COPD (chronic obstructive pulmonary disease) Former smoker Herpes zoster History of alcohol abuse Hyperlipidemia Hypertension Morbid obesity Neuropathic pain IRIS treated with BiPAP Osteoarthritis of knees, bilateral Pseudogout of right knee Thoracic spinal stenosis Thyroid nodule Vitamin D deficiency Home Medications atorvastatin 10 mg tablet 10 mg PO DAILY@2200 Cholesterol 12/08/20 [History Last Taken 06/08/23 22:15] cholecalciferol (vitamin D3) 25 mcg (1,000 unit) tablet (Vitamin D3) 2,000 unit PO DAILY Supplement 12/08/20 [History Last Taken 06/01/23] clonidine HCl 0.1 mg tablet 0.1 mg PO BID BP 12/08/20 [History Last Taken 06/09/23 10:05] diclofenac sodium 1 % topical gel (Voltaren Arthritis Pain) 1 ea topical Q6H Pain 12/08/20 [History Last Taken 06/01/23] sertraline 100 mg tablet 100 mg PO DAILY Mood 12/08/20 [History Last Taken 06/09/23 10:10] hydroxyzine pamoate 25 mg capsule 25 mg PO QHS anxiety 30 days #30 caps 01/11/21 [Rx Last Taken 06/08/23 10:15] orphenadrine citrate 100 mg tablet,extended release 100 mg PO BID PRN muscle spasm #10 tabs 05/02/23 [Rx Last Taken 06/01/23] amlodipine 10 mg tablet 10 mg PO DAILY heart 06/02/23 [History Last Taken 06/09/23 10:00] ketoconazole 2 % topical cream 1 applic topical DAILY skin 06/02/23 [History Last Taken 06/01/23] spironolactone 25 mg tablet 25 mg PO DAILY swelling 06/02/23 [History Last Taken 06/09/23 10:05] valsartan 160 mg tablet 160 mg PO DAILY blood pressure 06/02/23 [History Last Taken 06/09/23 10:05] valsartan 80 mg tablet 80 mg PO DAILY blood pressure 06/02/23 [History Last Taken 06/08/23 22:25] acetaminophen 500 mg tablet 1,000 mg (2 x 500 mg) PO Q8 severe pain #0 tabs 06/09/23 [Rx Last Taken 06/09/23 06:15] dexamethasone 4 mg tablet 2 mg (1/2 x 4 mg) PO BIDCM pain #0 tabs 06/09/23 [Rx Last Taken 06/09/23 08:05] gabapentin 600 mg tablet 600 mg PO TIDCM nerve pain #0 tabs 06/09/23 [Rx Last Taken 06/09/23 11:35] meloxicam 15 mg tablet 15 mg PO DAILY pain #0 tabs 06/09/23 [Rx Last Taken 06/09/23 10:05] oxycodone 5 mg tablet 2.5 - 5 mg (0.5 - 1 x 5 mg) PO Q4H PRN PRN Pain Score 6-10 #0 tabs 06/09/23 [Rx Last Taken Unknown] sennosides 8.6 mg-docusate sodium 50 mg tablet (Stool Softener-Stimulant Laxative) 2 tab PO BID constipation #0 tabs 06/09/23 [Rx Last Taken 06/03/23] tizanidine 2 mg tablet 2 mg PO Q8H PRN PRN muscle spasms #0 tabs 06/09/23 [Rx Last Taken 06/07/23 08:08] Allergy/AdvReac Type Severity Reaction Status Date / Time hydrocodone [From Vicodin] Allergy Anaphylaxis Verified 06/02/23 16:42 lorazepam [From Ativan] Allergy Hives Verified 06/02/23 16:42 neomycin Allergy Hives Verified 06/02/23 16:42 Family History Mother No problems noted. Father Leukemia Diabetes Surgical History History of adenoidectomy History of back surgery History of back surgery Hx of tonsillectomy Social History (Updated 06/09/23 @ 19:[address] Darrel Karimi MD) household members: none Smoking Status: Former smoker how long ago did patient quit smoking: Quit 45 yrs prior, smoked 1 ppd starting age 19 until quit. alcohol intake: former details: Drank heavily prior, sober x 45 years. substance use type: does not use ROS Constitutional Constitutional: Reports weakness; Denies chills, fever(s) or weight gain ENT HEENT: Denies headache(s), nasal congestion or nasal discharge Cardiovascular Cardiovascular: Denies chest pain or palpitations Respiratory/Chest Respiratory/Chest: Denies cough, excessive phlegm production or shortness of breath with exertion Gastrointestinal Gastrointestinal: Denies abdominal pain, nausea or vomiting Genitourinary Genitourinary: Denies dysuria Musculoskeletal Musculoskeletal: Reports back pain and muscle spasms; Denies joint pain or joint swelling Integumentary Integumentary: Denies rash or wounds Neurologic Neurologic: Denies focal weakness, numbness or tingling Psychiatric Psychiatric: Denies anxiety, auditory hallucinations, depression, homicidal ideation or suicidal ideation Vital Signs Vital Signs Vital Signs: 06/09/23 17:00 06/09/23 16:54 Temperature 97.9 F Temperature Source Temporal Pulse Rate 87 Pulse Rhythm Regular Pulse Strength Normal (2+) Respiratory Rate 14 Respiratory Effort Normal Non-Labored Respiratory Depth Normal Respiratory Pattern Normal Blood Pressure 164/78 H Blood Pressure Mean 106 Blood Pressure Source Monitor Blood Pressure Position Semi-Fowlers Blood Pressure Location Left Forearm Pulse Ox 95 Oxygen Delivery Method Room Air Room Air Weight Weight: 117.027 kg Body Mass Index (BMI) 41.4 Physical Exam Const alert General Appearance: cooperative HEENT normocephalic Eyes PERRL and EOMs intact bilaterally Neck supple, no JVD and no carotid bruits Resp normal respiratory effort, normal air movement and clear to auscultation bilaterally Cardio regular rate and regular rhythm GI normal to inspection, nondistended, normoactive bowel sounds, non-tender and non-distended Extremity normal capillary refill General Extremity: Negative for edema Skin no rashes or lesions noted General Skin Exam: no breakdown Psych affect normal Appearance: appropriate Assessment & Plan Assessment/Plan (1) Debility: (2) Stenosis, spinal, lumbar: QUALIFIERS: Neurogenic claudication status: with neurogenic claudication Qualified Code(s): M48.062 - Spinal stenosis, lumbar region with neurogenic claudication (3) Lumbar radiculopathy, acute: (4) Intractable back pain: (5) Status post lumbar discectomy: (6) Pseudogout: (7) Essential (primary) hypertension: (8) Hyperlipidemia: (9) Vitamin D deficiency: (10) Neuropathic pain: (11) Muscle spasm of back: (12) Depression: (13) Morbid obesity: PLAN: Plan 67 year old female with below past medical history hospitalized for intractable back pain 2/2 lumbar spinal stenosis, lumbar radiculopathy, underwent L4-5 left sided laminotomy, discectomy 06/08/[address] Cheatham, admitted to TCU with debility, here for rehabilitation, strengthening, prior to discharge home alone. Debility - PT/OT. Pain - Tylenol 1000mg q8, Oxycodone 2.5mg - 5mg q4h prn. Bowel - senna/colace 2 tablets bid, Dulcolax 10mg pr daily prn. Adult immunization - Administer pneumonia vaccine, covid vaccine, flu vaccine as appropriate. DVT prophylaxis - Lovenox 40mg sc daily. Hypertension - Losartan 50mg, 25mg, Amlodipine 10mg daily, Clonidine 0.1mg bid. Hyperlipidemia - Atorvastatin 10mg qhs. Vitamin D deficiency - D3 25mcg daily. Lumbar spinal stenosis s/p surgery - Decadron taper. Neuropathic pain - Gabapentin 600ng tidcm. Insomnia - Hydroxyzine 25mg qhs. Tinea Corporis - Ketoconazole topical daily. Osteoarthritis - Meloxicam 15mg daily. 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 Edema - Aldactone 25mg daily. Muscle spasm - Tizanidine 2mg q8 prn.
[2023-06-09] MEDS: oxyCODONE 5 MG Tablet PO (22:42)
[2023-06-09] MEDS: cloNIDine HCl 0.1 MG Tablet PO (22:43)
[2023-06-09] MEDS: Senna/Docusate Sodium 1 Tablet 2 TABLET PO (22:43)
[2023-06-09] MEDS: Gabapentin 600 MG Tablet PO (22:43)
[2023-06-09] MEDS: Atorvastatin Calcium 10 MG Tablet PO (22:43)
[2023-06-09] MEDS: Acetaminophen 500 MG Tablet 1000 MG PO (22:44)
[2023-06-09] MEDS: Losartan Potassium 25 MG Tablet PO (22:44)
[2023-06-09] MEDS: hydrOXYzine PAM 25 MG Capsule PO (22:44)
[2023-06-09] MEDS: tiZANidine HCl 2 MG Tablet PO (23:24)
[2023-06-10] MEDS: Acetaminophen 500 MG Tablet 1000 MG PO ×3 (05:35→21:15)
[2023-06-10] MEDS: Enoxaparin 40 MG/0.4 ML Syringe SC (05:36)
[2023-06-10 06:50] LABS: Absolute Lymphocyte Count 1.46 X10^3/uL (0.83-4.51); Absolute Neutrophil Count 15.5 X10^3/uL (2.0-7.7); Basophil# 0.01 X10^3/uL; Basophil% 0.1 % (0-1); Eosinophil# 0.03 X10^3/uL; Eosinophils% 0.2 % (0-5); Hematocrit 38.1 % (37-47); Hemoglobin 12.1 g/dL (12.0-15.0); Lymphocyte # 1.46 X10^3/ul (0.83-4.51); Lymphocyte % 7.8 % (19-41); Mean Corp Hgb Conc 31.8 g/dL (32-36); Mean Corpuscular Hgb 27.1 pg (27.0-32.0); Mean Corpuscular Volume 85.2 fL (81-99); Mean Platelet Vol. 9.1 fl (6.2-12.0); Monocyte# 1.54 X10^3/uL; Monocyte% 8.2 % (0-10); NRBC Flagged by Analyzer 0 % (0-5); Neutrophil # 15.47 X10^3/uL (2.7-7.7); Neutrophil % 82.6 % (47-70); POSITIVE DIFFERENTIAL YES; Platelet Count 392 K/mm3 (150-450); RBC Distribution Width CV 13.7 % (11.6-14.6); RBC Distribution Width SD 42.3 fl (35.1-43.9); Red Blood Count 4.47 M/mm3 (4.2-5.4); White Blood Count 18.7 K/mm3 (4.4-11.0)
[2023-06-10 07:02] LABS: Differential Indicated SCAN CRITERIA MET
[2023-06-10 07:16] LABS: Anion Gap 3 (5-15); BUN 27 mg/dL (7-18); BUN/Creat Ratio 54.1 RATIO (10-20); Chloride 103 mmol/L (98-107); EST Glomerular Filtration Rate 130 mL/min (>60); Est Glom Filt Rate - Afr Amer 158 mL/min (>60); Estimated Creatinine Clearance 86.32 ml/min; Glucose 115 mg/dL (74-106); Potassium 4.8 mmol/L (3.5-5.1); Sodium Level 131 mmol/L (136-145)
[2023-06-10 08:08] VITALS: BP 136/67; PULSE 73; RESP 20; TEMP 36.3; O2SAT 98
[2023-06-10] MEDS: oxyCODONE 5 MG Tablet PO ×2 (08:19→20:14)
[2023-06-10] MEDS: Gabapentin 600 MG Tablet PO ×3 (08:20→17:46)
[2023-06-10] MEDS: Spironolactone 25 MG Tablet PO (08:20)
[2023-06-10] MEDS: cloNIDine HCl 0.1 MG Tablet PO ×2 (08:21→21:16)
[2023-06-10] MEDS: Meloxicam 15 MG Tablet PO (08:21)
[2023-06-10] MEDS: Cholecalciferol (VIT D3) 25 MCG TABLET (1,000 UNITS) 50 MCG PO (08:21)
[2023-06-10] MEDS: Losartan Potassium 50 MG Tablet PO (08:21)
[2023-06-10] MEDS: Sertraline 100 MG Tablet PO (08:22)
[2023-06-10] MEDS: dexAMETHasone 4 MG Tablet 2 MG PO ×2 (08:22→17:45)
[2023-06-10] MEDS: Senna/Docusate Sodium 1 Tablet 2 TABLET PO ×2 (08:23→21:16)
[2023-06-10] MEDS: amLODIPine 10 MG Tablet PO (08:23)
[2023-06-10] MEDS: Tuberculin,Purif.prot.deriv. 50 TU/ML Vial 0.1 ML ID (12:03)
[2023-06-10 21:15] VITALS: PULSE 78; O2SAT 94
[2023-06-10] MEDS: tiZANidine HCl 2 MG Tablet PO (21:15)
[2023-06-10] MEDS: Losartan Potassium 25 MG Tablet PO (21:16)
[2023-06-10] MEDS: hydrOXYzine PAM 25 MG Capsule PO (21:16)
[2023-06-10] MEDS: Atorvastatin Calcium 10 MG Tablet PO (21:16)
--- NOTE | 2023-06-11 01:53 | NURSING ---
This nurse was assisting pt with HS care when pt realized she was missing her personal pillow. Pt became very emotional and anxious, crying loudly and continuously. Pt states that pillow belonged to her father and she has had it for 50 years and it is irreplaceable. This nurse searched room/laundry bin and it was not found. Emotional support given and pt appreciative of efforts but states I just need to be upset right now. When pt was no longer crying, this nurse assisted her with applying CPAP and given ice per request. Pt is currently resting in bed and denies further intervention at this time.
[2023-06-11] MEDS: Acetaminophen 500 MG Tablet 1000 MG PO ×3 (05:25→22:25)
[2023-06-11] MEDS: oxyCODONE 5 MG Tablet PO ×3 (05:25→22:25)
[2023-06-11] MEDS: Enoxaparin 40 MG/0.4 ML Syringe SC (05:25)
[2023-06-11] MEDS: dexAMETHasone 4 MG Tablet 2 MG PO ×2 (08:00→17:42)
[2023-06-11] MEDS: Gabapentin 600 MG Tablet PO ×3 (08:00→17:42)
[2023-06-11] MEDS: Spironolactone 25 MG Tablet PO (08:01)
[2023-06-11] MEDS: cloNIDine HCl 0.1 MG Tablet PO ×2 (08:02→22:24)
[2023-06-11] MEDS: Losartan Potassium 50 MG Tablet PO (08:02)
[2023-06-11] MEDS: Meloxicam 15 MG Tablet PO (08:03)
[2023-06-11] MEDS: Cholecalciferol (VIT D3) 25 MCG TABLET (1,000 UNITS) 50 MCG PO (08:05)
[2023-06-11] MEDS: Senna/Docusate Sodium 1 Tablet 2 TABLET PO ×2 (08:05→22:25)
[2023-06-11] MEDS: Sertraline 100 MG Tablet PO (08:06)
[2023-06-11] MEDS: tiZANidine HCl 2 MG Tablet PO ×2 (09:15→17:48)
[2023-06-11] MEDS: amLODIPine 10 MG Tablet PO (09:15)
--- NOTE | 2023-06-11 11:11 | NURSING ---
Addendum entered by Cristal Aviles 06/11/23 18:49: Pt drank full Golytely dose this afternoon, no results. Abdomen non-tender, non-distended. Bowel sounds normoactive x4 quadrants. Pt states that she is willing to take suppository/enema at this point. Administered PRN bisacodyl suppository. Original Note: Patient has not had a BM in 4 days and does not was a suppository. Prune juice given x2. Call placed to Dr. Karimi. New order received for Golytely 1L x1.
[2023-06-11] MEDS: Menthol/Lanolin/Calamine/Znox 113 GM Tube 1 APPLIC TOPICAL ×2 (12:14→22:25)
[2023-06-11] MEDS: Electrolyte Solution/Peg's 4000 ML 1000 ML PO (13:44)
[2023-06-11 16:00] VITALS: BP 142/64; PULSE 75; RESP 18; TEMP 36.4; O2SAT 97
[2023-06-11] MEDS: Bisacodyl 10 MG Suppository RC (18:45)
--- NOTE | 2023-06-11 21:17 | NURSING ---
Update received that resident consumed half of Go-Lytley and is requesting an enema. Spoke w/ Dr. Karimi via phone to update and new order received and read back for a SSE.
[2023-06-11] MEDS: hydrOXYzine PAM 25 MG Capsule PO (22:25)
[2023-06-11] MEDS: Losartan Potassium 25 MG Tablet PO (22:25)
[2023-06-11] MEDS: Atorvastatin Calcium 10 MG Tablet PO (22:25)
--- NOTE | 2023-06-11 23:54 | NURSING ---
Pt had a medium, formed bowel movement and declined enema administration at this time.
[2023-06-12] MEDS: Enoxaparin 40 MG/0.4 ML Syringe SC (06:02)
[2023-06-12] MEDS: Acetaminophen 500 MG Tablet 1000 MG PO ×3 (06:02→21:25)
[2023-06-12] MEDS: Menthol/Lanolin/Calamine/Znox 113 GM Tube 1 APPLIC TOPICAL ×3 (06:02→21:22)
--- NOTE | 2023-06-12 07:44 | NS ---
MST score = 0
--- NOTE | 2023-06-12 08:10 | PCM.PN.DRR ---
Documented by User: Judah Tolbert 06/12/23 08:31 TCU RX Drug Regimen Review Subjective/Objective Subjective/Objective: Subjective: 67 year old female with below past medical history hospitalized for intractable back pain 2/2 lumbar spinal stenosis, lumbar radiculopathy, underwent L4-5 left sided laminotomy, discectomy 06/08/[address] Cheatham, admitted to TCU with debility, here for rehabilitation, strengthening, prior to discharge home alone. Objective: Allergies hydrocodone [From Vicodin] Allergy (Verified 06/02/23 16:42) Anaphylaxis lorazepam [From Ativan] Allergy (Verified 06/02/23 16:42) Hives neomycin Allergy (Verified 06/02/23 16:42) Hives Current Medications Generic Name Dose Route Start Last Admin Trade Name Freq PRN Reason Stop Dose Admin Acetaminophen 1,000 mg 06/09/23 22:00 06/12/23 06:02 Acetaminophen 500 Mg Tablet PO 1,000 mg Q8 SALVADOR Administration Amlodipine Besylate 10 mg 06/10/23 10:00 06/11/23 09:15 Amlodipine 10 Mg Tablet PO 10 mg DAILY SALVADOR Administration Protocol Atorvastatin Calcium 10 mg 06/09/23 22:00 06/11/23 22:25 Atorvastatin Calcium 10 Mg Tablet PO 10 mg DAILY@2200 SALVADOR Administration Bisacodyl 10 mg 06/09/23 19:22 06/11/23 18:45 Bisacodyl 10 Mg Suppository RC 10 mg DAILY PRN Administration Constipation Calamine/Phenol 1 applic 06/11/23 14:00 06/12/23 06:02 Menthol/Lanolin/Calamine/Znox 113 Gm Tube TOPICAL 1 applic TID SALVADOR Administration Protocol Cholecalciferol 50 mcg 06/10/23 10:00 06/11/23 08:05 Cholecalciferol (Vit D3) 25 Mcg Tablet (1,000 Units) PO 50 mcg DAILY SALVADOR Administration Clonidine 0.1 mg 06/09/23 22:00 06/11/23 22:24 Clonidine Hcl 0.1 Mg Tablet PO 0.1 mg BID SALVADOR Administration Protocol Dexamethasone 2 mg 06/10/23 08:00 06/11/23 17:42 Dexamethasone 4 Mg Tablet PO 06/12/23 17:01 2 mg BIDCM SALVADOR Administration Dexamethasone 2 mg 06/13/23 08:00 Dexamethasone 4 Mg Tablet [facility] mg 06/16/23 08:00 Dexamethasone 4 Mg Tablet PO 06/18/23 [facility] Enoxaparin Sodium 40 mg 06/10/23 06:00 06/12/23 06:02 Enoxaparin 40 Mg/0.4 Ml Syringe SC 40 mg DAILY@0600 SALVADOR Administration Gabapentin 600 mg 06/09/23 17:45 06/11/23 17:42 Gabapentin 600 Mg Tablet PO 600 mg TIDCM SALVADOR Administration Hydroxyzine Pamoate 25 mg 06/09/23 22:00 06/11/23 22:25 Hydroxyzine Kaity 25 Mg Capsule PO 25 mg QHS SALVADOR Administration Losartan Potassium 25 mg 06/09/23 22:00 06/11/23 22:25 Losartan Potassium 25 Mg Tablet PO 25 mg QHS SALVADOR Administration Protocol Losartan Potassium 50 mg 06/10/23 10:00 06/11/23 08:02 Losartan Potassium 50 Mg Tablet PO 50 mg DAILY SALVADOR Administration Protocol Meloxicam 15 mg 06/10/23 10:00 06/11/23 08:03 Meloxicam 15 Mg Tablet PO 15 mg DAILY SALVADOR Administration Oxycodone HCl 2.5 - 5 mg 06/09/23 17:19 06/11/23 22:25 Oxycodone 5 Mg Tablet PO 5 mg Q4H PRN PRN Administration Pain Score 6-10 Senna/Docusate Sodium 2 tablet 06/09/23 22:00 06/11/23 22:25 Senna/Docusate Sodium 1 Tablet PO 2 tablet BID SALVADOR Administration Sertraline HCl 100 mg 06/10/23 10:00 06/11/23 08:06 Sertraline 100 Mg Tablet PO 100 mg DAILY SALVADOR Administration Spironolactone 25 mg 06/10/23 10:00 06/11/23 08:01 Spironolactone 25 Mg Tablet PO 25 mg DAILY [facility] Administration Protocol Tizanidine HCl 2 mg 06/09/23 17:19 06/11/23 17:48 Tizanidine Hcl 2 Mg Tablet PO 2 mg Q8H PRN PRN Administration muscle spasms Tuberculin PPD 0.1 ml 06/17/23 10:00 Tuberculin,Purif.Prot.Deriv. 50 Tu/Ml Vial ID 06/17/23 10:01 X1 ONE Problem List (Updated 06/09/23 @ 19:[address] Darrel Karimi MD) Morbid obesity (Acute) Muscle spasm of back (Acute) Essential (primary) hypertension (Acute) Pseudogout (Acute) Status post lumbar discectomy (Acute) Lumbar radiculopathy, acute (Acute) Stenosis, spinal, lumbar (Acute) Intractable back pain (Acute) Depression (Acute) Neuropathic pain (Acute) Vitamin D deficiency (Acute) Hyperlipidemia (Acute) Debility (Acute) Vital Signs Temp Pulse Resp BP Pulse Ox O2 Del Method 97.6 F L 75 18 142/64 H 97 Room Air 06/11/23 16:00 06/11/23 16:00 06/11/23 16:00 06/11/23 16:00 06/11/23 16:00 06/11/23 16:00 Oxygen Delivery Method Room Air Weight: 117.027 kg Body Mass Index (BMI) 41.4 Sodium 131 mmol/L (136-145) L 06/10/23 06:19 Potassium 4.8 mmol/L (3.5-5.1) 06/10/23 06:19 Chloride 103 mmol/L (98-107) 06/10/23 06:19 Carbon Dioxide 25.0 mmol/L (21.0-32.0) 06/10/23 06:19 Anion Gap 3 (5-15) L 06/10/23 06:19 BUN 27 mg/dL (7-18) H 06/10/23 06:19 Creatinine 0.50 mg/dL (0.55-1.02) L 06/10/23 06:19 Est GFR (MDRD) Af Amer 158 mL/min (>60) 06/10/23 06:19 Est GFR (MDRD) Non-Af 130 mL/min (>60) 06/10/23 06:19 BUN/Creatinine Ratio 54.1 RATIO (10-20) H 06/10/23 06:19 Glucose 115 mg/dL (74-106) H 06/10/23 06:19 Assessment/Plan: 1. Pain: acetaminophen 1000 mg PO Q8H, oxycodone 2.5-5 mg PO Q4H PRN pain. The patient has used 6 doses of PRN oxycodone so far this admission. Please continue to monitor pain levels, for PRN oxycodone usage, LFTs (AST/ALT = 22/26 U/L on 06/09/23), for constipation, for respiratory depression, and for syncope/ataxia/falls. 2. Bowel: senna/docusate 2 tablets PO BID, bisacodyl 10 mg suppository GA daily PRN constipation. The patient has used 1 PRN dose of bisacodyl so far this admission, and the patient's last bowel movement was 06/12/23. Please continue to monitor for PRN medication usage, for constipation and diarrhea. 3. Lumbar spinal stenosis s/p surgery: dexamethasone 2 mg BID with meals through 06/11, 2 mg daily with meal 06/11 - 06/14, 1 mg daily with a meal 06/15 - 06/17. Please continue to monitor for back pain, blood glucose levels (BG = 115 mg/dL on 06/10/23), blood pressures (recent range = 108-164/61-95 mmHg), for insomnia, and for GI distress with dexamethasone administration. 4. DVT prophylaxis: enoxaparin 40 mg SC daily. Please continue to monitor for s/s of DVT such as pain/erythema/edema in an extremity, for s/s of bleeding/excessive bruising, renal function (serum creatinine = 0.50 mg/dL with creatinine clearance ~ 86 mL/min on 06/10/23), hemoglobin levels (Hgb = 12.1 g/dL on 06/10/23), and platelet count (Plt = 392 K/mm3 on 06/10/23). 5. Hypertension/edema: losartan 50 mg daily and 25 mg QHS, amlodipine 10 mg PO daily, clonidine 0.1 mg PO BID, spironolactone 25 mg PO daily.. Please continue to monitor blood pressure (recent range = 108-164/61-95 mmHg), heart rates (recent range = 73-93 beats/min), renal function (serum creatinine = 0.50 mg/dL with creatinine clearance ~ 86 mL/min on 06/10/23), potassium levels (K = 4.8 mmol/L on 06/10/23), for lower extremity swelling, and for abdominal pain with clonidine administration. The patient's blood pressures have been elevated recently, although the patient is also on pain medications and on decadron. If the patient's blood pressures do not improve after the decadron taper and pain is controlled, please consider increasing clonidine to 0.2 mg PO BID. 6. Hyperlipidemia: atorvastatin 10 mg PO QHS. Please continue to monitor lipid levels (cholesterol = 147 mg/dL with LDL = 81 mg/dL on 04/06/21), LFTs (AST/ALT = 22/26 U/L on 06/09/23), and for myalgias. Please consider ordering a lipid level as the patient has not had a recent level in > 2 years. 7. Neuropathic pain: gabapentin 600 mg PO TID with meals. Please continue to monitor for neuropathic pain, renal function (serum creatinine = 0.50 mg/dL with creatinine clearance ~ 86 mL/min on 06/10/23), for lower extremity swelling, and for drowsiness/dizziness/falls. 8. Osteoarthritis: meloxicam 15 mg PO daily. Please continue to monitor for osteoarthritic pain, and for GI distress with meloxicam administration. 9. Muscle spasms: tizanidine 2 mg PO Q8H PRN muscle spasms. The patient has used 4 doses of PRN tizanidine so far this admission. Please continue to monitor for muscle spasms, for PRN medication usage, for dry mouth, dizziness, drowsiness, and constipation. 10. Insomnia: hydroxyzine pamoate 25 mg PO QHS. Please continue to monitor for insomnia, for drowsiness/dizziness, for dry mouth, constipation and urinary retention. 11. Vitamin D deficiency: cholecalciferol 50 mcg PO daily. Please continue to monitor for s/s of vitamin D deficiency, and vitamin D levels (Vitamin D = 37.8 ng/mL on 12/10/14). Please consider ordering a repeat vitamin D level if clinically indicated. 12. Skin irritation: calmoseptine 1 application topically TID. Please continue to monitor for skin irritation and integrity. Assessment/Plan for indications treated with psychotropic medications: 1. Depression: sertraline 100 mg PO daily. 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 Please continue to monitor for depression, for SI, for serotonin syndrome, sodium levels (Na = 131 mmol/L on 06/10/23), and for nausea/vomiting/diarrhea. Medical chart and medication regimen reviewed. The following medication irregularities or issues were identified: 1. Hypertension/edema: losartan 50 mg daily and 25 mg QHS, amlodipine 10 mg PO daily, clonidine 0.1 mg PO BID, spironolactone 25 mg PO daily.. The patient's blood pressures have been elevated recently, although the patient is also on pain medications and on decadron. If the patient's blood pressures do not improve after the decadron taper and pain is controlled, please consider increasing clonidine to 0.2 mg PO BID. 2. Hyperlipidemia: atorvastatin 10 mg PO QHS. Please consider ordering a lipid level as the patient has not had a recent level in > 2 years. 3. Vitamin D deficiency: cholecalciferol 50 mcg PO daily. Please consider ordering a repeat vitamin D level if clinically indicated. Date Date of Note:: 06/12/23 Documented by User: Dr. Darrel Karimi MD 06/12/23 08:46 TCU RX Drug Regimen Review Provider Comments Provider responsibility Provider Comments to Recommendations by Pharmacy: Agree
[2023-06-12] MEDS: oxyCODONE 5 MG Tablet PO ×2 (09:06→13:32)
[2023-06-12] MEDS: Gabapentin 600 MG Tablet PO ×3 (09:06→18:07)
[2023-06-12] MEDS: dexAMETHasone 4 MG Tablet 2 MG PO ×2 (09:07→18:07)
[2023-06-12] MEDS: Losartan Potassium 50 MG Tablet PO (09:08)
[2023-06-12] MEDS: cloNIDine HCl 0.1 MG Tablet PO ×2 (09:08→21:23)
[2023-06-12] MEDS: Spironolactone 25 MG Tablet PO (09:08)
[2023-06-12] MEDS: amLODIPine 10 MG Tablet PO (09:10)
[2023-06-12] MEDS: Meloxicam 15 MG Tablet PO (09:10)
[2023-06-12] MEDS: Senna/Docusate Sodium 1 Tablet 2 TABLET PO ×2 (09:11→21:25)
[2023-06-12] MEDS: Sertraline 100 MG Tablet PO (09:11)
[2023-06-12] MEDS: tiZANidine HCl 2 MG Tablet PO ×2 (09:57→19:30)
[2023-06-12] MEDS: Cholecalciferol (VIT D3) 25 MCG TABLET (1,000 UNITS) 50 MCG PO (09:57)
--- NOTE | 2023-06-12 13:03 | CASEMGMT ---
TCU Social Work Met with patient to complete initial assessment. Introduced self and role to patient. Verified patient's contacts. Patient wants niece to be person of contact. Patient reports that she has completed advanced directives in the past, but would like to redo them. Patient states that she is not sure yet what changes she wants to make. Patient states that her brother was her go-to person, however he from suicide late last year, and this is a loss that she is still processing/ grieving. Patient wishes to be DNRCC-A, changed from full code. Educated to Medicare benefits. Patient's goal is to return to home. Sw will continue to follow for discharge planning and ongoing support. Dulce Negrete, BRIM IRONER HAND, AIRFRAME AND POWERPLANT TECHNICIAN
[2023-06-12 15:23] VITALS: BP 119/78; PULSE 81; RESP 14; TEMP 36.6; O2SAT 96
[2023-06-12 21:20] VITALS: BP 138/70; PULSE 70
[2023-06-12] MEDS: Losartan Potassium 25 MG Tablet PO (21:24)
[2023-06-12] MEDS: Atorvastatin Calcium 10 MG Tablet PO (21:24)
[2023-06-12] MEDS: hydrOXYzine PAM 25 MG Capsule PO (21:26)
[2023-06-12 22:00] VITALS: PULSE 80; O2SAT 94
[2023-06-13] MEDS: tiZANidine HCl 2 MG Tablet PO ×2 (03:19→21:01)
[2023-06-13] MEDS: Menthol/Lanolin/Calamine/Znox 113 GM Tube 1 APPLIC TOPICAL ×3 (05:31→20:54)
[2023-06-13] MEDS: Enoxaparin 40 MG/0.4 ML Syringe SC (05:33)
[2023-06-13] MEDS: Acetaminophen 500 MG Tablet 1000 MG PO ×3 (05:33→20:56)
[2023-06-13 06:13] LABS: Cholesterol 140 mg/dL (200); High Density Lipoprotein 51 mg/dL; Triglycerides 94 mg/dL; Very Low Density Lipoprotein 19 mg/dL (5-40)
[2023-06-13 09:01] VITALS: BP 172/74; PULSE 86; RESP 18; TEMP 36; O2SAT 97
[2023-06-13] MEDS: oxyCODONE 5 MG Tablet PO ×3 (09:02→23:37)
[2023-06-13] MEDS: Gabapentin 600 MG Tablet PO ×3 (09:02→18:06)
[2023-06-13] MEDS: dexAMETHasone 4 MG Tablet 2 MG PO (09:14)
[2023-06-13] MEDS: Cholecalciferol (VIT D3) 25 MCG TABLET (1,000 UNITS) 50 MCG PO (09:14)
[2023-06-13] MEDS: Meloxicam 15 MG Tablet PO (09:15)
[2023-06-13] MEDS: Sertraline 100 MG Tablet PO (09:15)
[2023-06-13] MEDS: Senna/Docusate Sodium 1 Tablet 2 TABLET PO ×2 (09:15→20:56)
[2023-06-13] MEDS: Losartan Potassium 50 MG Tablet PO (09:15)
[2023-06-13] MEDS: cloNIDine HCl 0.1 MG Tablet PO ×2 (09:15→20:57)
[2023-06-13] MEDS: amLODIPine 10 MG Tablet PO (09:15)
[2023-06-13] MEDS: Spironolactone 25 MG Tablet PO (09:16)
[2023-06-13 09:21] LABS: Vitamin D,25 Hydroxy 31.7 ng/mL
[2023-06-13 12:52] VITALS: BMI 39.2
--- NOTE | 2023-06-13 13:41 | CASEMGMT ---
Social Work SW met with patient at bedside per patient request. Patient informed SW that she would like to follow up with regarding blue pillow given to her by her father and change to bed due to limited mobility. Patient is requesting bariatric bed to accommodate for care. Patient informed SW that she is unable to reach the buttons on the side of bed to adjust the head of the bed. Patient informed SW that she is currently planning to remodel home to accommodate for care ADL in home. Patient informed SW that she has handicap/wheelchair accessible bathroom, but require additional adjustments to kitchen and elza. Patient informed SW that her goal is to return home with home health and family/friend assistance. Patient informed SW that she would like to work on transfers with therapy as she is having increased issues with transfers at home. SW discussed patient concerns with Carpet Floor Layer Apprentice, Mamie. Unit looking into a high-low bed for patient and determine what happened to missing belonging. ERICKA Perez
--- NOTE | 2023-06-13 15:01 | NURSING ---
This RN notified that patient concerned about finding her pillow from home and inability to use her bed controllers. Spoke with her in room. She said others had reached out to [facility] about finding her pillow, concerned it'd gone out with the laundry as its the same size as a normal pillow but very flat, could easily look like other linens. Ensured her this RN would reach out to [facility] and the laundry service if needed. She also expressed concern with her bed rails, the controllers being too high on the bed for her to be able to use. RN reached out to Sam in [facility]. He said the laundry would have gone out Monday, said he would personally call the [employer] to check on the pillow. Asked that he please update TCU staff to keep patient in the loop for anything he found out. He said he would. Patient was open to trying a different bed on the unit. Traded her bed for a high-low bed with controller she can keep in her lap and use easily. She was very grateful, said it was much easier to adjust herself in bed with the new rails and controller. RN also updated her that Sam with [facility] was contacting the [employer] and that RN asked for any updates he found out. She was very thankful for the help. Left her resting comfortably in bed, no further needs, call dustin in reach.
[2023-06-13 15:09] LABS: Pathologist Review Reviewed
[2023-06-13] MEDS: Atorvastatin Calcium 10 MG Tablet PO (20:58)
[2023-06-13] MEDS: Losartan Potassium 25 MG Tablet PO (20:58)
[2023-06-13] MEDS: hydrOXYzine PAM 25 MG Capsule PO (21:00)
[2023-06-13 21:06] VITALS: BP 152/70; PULSE 76
[2023-06-14] MEDS: Menthol/Lanolin/Calamine/Znox 113 GM Tube 1 APPLIC TOPICAL ×3 (06:07→20:44)
[2023-06-14] MEDS: Acetaminophen 500 MG Tablet 1000 MG PO ×3 (06:08→20:42)
[2023-06-14] MEDS: Enoxaparin 40 MG/0.4 ML Syringe SC (06:08)
[2023-06-14] MEDS: tiZANidine HCl 2 MG Tablet PO ×2 (06:54→20:40)
[2023-06-14] MEDS: oxyCODONE 5 MG Tablet PO ×4 (08:56→22:16)
[2023-06-14] MEDS: Gabapentin 600 MG Tablet PO ×3 (08:59→16:45)
[2023-06-14] MEDS: dexAMETHasone 4 MG Tablet 2 MG PO (08:59)
[2023-06-14] MEDS: Spironolactone 25 MG Tablet PO (09:01)
[2023-06-14] MEDS: amLODIPine 10 MG Tablet PO (09:02)
[2023-06-14] MEDS: cloNIDine HCl 0.1 MG Tablet PO ×2 (09:02→20:41)
[2023-06-14] MEDS: Losartan Potassium 50 MG Tablet PO ×2 (09:02→20:44)
[2023-06-14] MEDS: Senna/Docusate Sodium 1 Tablet 2 TABLET PO ×2 (09:02→20:43)
[2023-06-14] MEDS: Sertraline 100 MG Tablet PO (09:03)
[2023-06-14] MEDS: Cholecalciferol (VIT D3) 25 MCG TABLET (1,000 UNITS) 50 MCG PO (09:03)
[2023-06-14] MEDS: Meloxicam 15 MG Tablet PO (09:03)
[2023-06-14 09:07] VITALS: BP 136/48; PULSE 75
--- NOTE | 2023-06-14 09:56 | NURSING ---
Spoke w/ Sheng at Dr. Cheatham's office about him seeing her on TCU for follow-up. They will ask him and call back.
--- NOTE | 2023-06-14 10:24 | CASEMGMT ---
Social Work IDT met with patient at bedside to complete care plans. Discussed patient progress with therapy (PT/OT), dietary, activities, and nursing. Patient expressed concerns for dietary due to issues with things tasting good. Patient discussed concerns with nutrition. Patient informed care team that her concern for maneuvering around kitchen due to height of counters and distance from microwave. Patient informed team that she would like for home health care to assist with OT to assist with home safety assessment. Patient informed care team that she has goals to work on transfers from bed to wheelchair. Patient brought home wheelchair to bedside to assist with therapy. Patient informed Care team that she would like to return home. Patient goal is to return home with home health. SW educated patient on Medicare insurance coverage and benefits. Medicare covers for first 20 days of skilled care; co-pay 204/day 21-100 day. Patient informed SW that previously she had home health care from [facility] PT/OT/RN/WHOLESALE ACCOUNT EXECUTIVE. SW continue to follow to assist with discharge plans. ERICKA Perez
--- NOTE | 2023-06-14 11:54 | NURSING ---
Inspector Semiconductor Wafer Note; Activity Asset: Loreto Lee is independent in her choice of daily activities. At this time she is bed bound and will do her own activities such as using her Ipad for tv, streaming, talking w/family via face time, word puzzles. She Has her own loan interviewer whom will visit there for she stated she will not need ours. Staff will do weekly 1.1 visit and take her the daily chronicle and respect her right to say no.
--- NOTE | 2023-06-14 13:17 | NURSING ---
Dr. Cheatham to come see patient on TCU on June 20 for surgical follow-up. Patient updated.
[2023-06-14 14:15] VITALS: PULSE 95; RESP 18; O2SAT 95
[2023-06-14 16:00] VITALS: BP 123/66; PULSE 74; RESP 16; TEMP 37.6; O2SAT 96
[2023-06-14] MEDS: Juven (unflavored) Packet 1 PACKET PO (16:34)
--- NOTE | 2023-06-14 16:56 | CASEMGMT ---
Social Work SW met with patient at bedside to complete MDS. Patient completed BIM () and PhQ-9 (). Patient informed SW that she has little interest in doing things due to pain and current medical condition. The patient informed SW that she has been having issues concentrating or enjoying things; she would usual do. Patient informed SW that she is depressed, but she feels current depression is situational. The patient informed hospitalization, of her brother in Nov 2022, and recent loss of pillow symbolic of her father contribute to her feelings of depression. The patient informed SW that she feels lonely nightly, when she is in the hospital. SW discussed grief support and providing additional support while on TCU. Patient is currently taking antidepressants and has a history of seeking counseling/therapy for grief support. Patient informed SW that she has contacted family and friends to come visit; after previously not allowing family to visit. SW will continue to follow for supportive care and discharge planning. ERICKA Perez
--- NOTE | 2023-06-14 18:53 | NURSING ---
FOUND PT CRYING THIS MORNING,ASKED PT WHAT WAS WRONG. PT STATED SHE WAS HAVING A LOT OF PAIN 10/10. NOTICED PT HAD NOT TAKING ANY THING FOR PAIN FOR HOURS. PT STATED SHE DIDNT WANT TO TAKE TO MUCH. EDUCATED PT ON KEEPING UP ON TAKING PAIN MEDS SO SHE IS COMFORTABLE AND TO HELP HER GET THREW THE DAY AND THERAPY. OFFERED KPAD,PT STATED SHE WOULD TRY IT. READJUSTED PT. DAY WENT BY PT STATED SHE FELT MUCH BETTER WHEN TAKING HER PAIN MEDS WHEN DUE AND HAVING THE KPAD.
[2023-06-14 20:35] VITALS: BP 145/61; PULSE 74
[2023-06-14] MEDS: hydrOXYzine PAM 25 MG Capsule PO (20:42)
[2023-06-14] MEDS: Atorvastatin Calcium 10 MG Tablet PO (20:43)
[2023-06-15] MEDS: tiZANidine HCl 2 MG Tablet PO ×2 (05:45→15:48)
[2023-06-15] MEDS: Enoxaparin 40 MG/0.4 ML Syringe SC (05:45)
[2023-06-15] MEDS: Acetaminophen 500 MG Tablet 1000 MG PO ×3 (05:45→22:20)
[2023-06-15] MEDS: oxyCODONE 5 MG Tablet PO ×2 (05:45→11:00)
[2023-06-15] MEDS: Menthol/Lanolin/Calamine/Znox 113 GM Tube 1 APPLIC TOPICAL ×3 (05:51→22:16)
[2023-06-15 09:16] VITALS: BP 134/54; PULSE 76; RESP 18; O2SAT 94
[2023-06-15] MEDS: dexAMETHasone 4 MG Tablet 2 MG PO (09:17)
[2023-06-15] MEDS: Gabapentin 600 MG Tablet PO ×3 (09:17→18:00)
[2023-06-15] MEDS: cloNIDine HCl 0.1 MG Tablet PO ×2 (09:17→22:18)
[2023-06-15] MEDS: Senna/Docusate Sodium 1 Tablet 2 TABLET PO ×2 (09:17→22:19)
[2023-06-15] MEDS: Sertraline 100 MG Tablet PO (09:18)
[2023-06-15] MEDS: Losartan Potassium 50 MG Tablet PO ×2 (09:18→22:23)
[2023-06-15] MEDS: Cholecalciferol (VIT D3) 25 MCG TABLET (1,000 UNITS) 50 MCG PO (09:18)
[2023-06-15] MEDS: Meloxicam 15 MG Tablet PO (09:18)
[2023-06-15] MEDS: amLODIPine 10 MG Tablet PO (09:18)
[2023-06-15] MEDS: Spironolactone 25 MG Tablet PO (09:19)
[2023-06-15] MEDS: Juven (unflavored) Packet 1 PACKET PO ×2 (10:55→17:59)
[2023-06-15 13:46] VITALS: TEMP 36.3
[2023-06-15] MEDS: Atorvastatin Calcium 10 MG Tablet PO (22:19)
[2023-06-15 22:20] VITALS: BP 134/62; PULSE 79
[2023-06-15] MEDS: hydrOXYzine PAM 25 MG Capsule PO (22:21)
[2023-06-16] MEDS: Menthol/Lanolin/Calamine/Znox 113 GM Tube 1 APPLIC TOPICAL ×2 (05:33→22:36)
[2023-06-16] MEDS: Acetaminophen 500 MG Tablet 1000 MG PO ×3 (05:34→22:37)
[2023-06-16] MEDS: Enoxaparin 40 MG/0.4 ML Syringe SC (05:34)
[2023-06-16 06:02] LABS: Basophil# 0.06 X10^3/uL; Basophil% 0.3 % (0-1); Eosinophil# 0.16 X10^3/uL; Eosinophils% 0.8 % (0-5); Hematocrit 41.9 % (37-47); Hemoglobin 13.5 g/dL (12.0-15.0); Lymphocyte % 15.2 % (19-41); Mean Corp Hgb Conc 32.2 g/dL (32-36); Mean Corpuscular Hgb 27.2 pg (27.0-32.0); Mean Corpuscular Volume 84.3 fL (81-99); Mean Platelet Vol. 8.8 fl (6.2-12.0); Monocyte# 1.24 X10^3/uL; Monocyte% 6.3 % (0-10); NRBC Flagged by Analyzer 0 % (0-5); Neutrophil # 14.95 X10^3/uL (2.7-7.7); Neutrophil % 75.9 % (47-70); Platelet Count 439 K/mm3 (150-450); RBC Distribution Width CV 13.4 % (11.6-14.6); RBC Distribution Width SD 41.1 fl (35.1-43.9); Red Blood Count 4.97 M/mm3 (4.2-5.4); White Blood Count 19.7 K/mm3 (4.4-11.0)
[2023-06-16 06:46] LABS: Anion Gap 7 (5-15); BUN 29 mg/dL (7-18); BUN/Creat Ratio 54.6 RATIO (10-20); Calcium,Total 9.7 mg/dL (8.5-10.1); Chloride 101 mmol/L (98-107); Creatinine, Serum 0.53 mg/dL (0.55-1.02); EST Glomerular Filtration Rate 121 mL/min (>60); Est Glom Filt Rate - Afr Amer 147 mL/min (>60); Estimated Creatinine Clearance 83.55 ml/min; Glucose 108 mg/dL (74-106); Potassium 4.8 mmol/L (3.5-5.1); Sodium Level 132 mmol/L (136-145)
--- NOTE | 2023-06-16 08:22 | NURSING ---
Tile Fitter Note; MDS for 06/16/2023 Complete
[2023-06-16] MEDS: Juven (unflavored) Packet 1 PACKET PO ×2 (08:40→17:36)
[2023-06-16] MEDS: Spironolactone 25 MG Tablet PO (08:42)
[2023-06-16] MEDS: cloNIDine HCl 0.1 MG Tablet PO ×2 (08:43→22:36)
[2023-06-16] MEDS: Losartan Potassium 50 MG Tablet PO ×2 (08:43→22:37)
[2023-06-16] MEDS: amLODIPine 10 MG Tablet PO (08:44)
[2023-06-16] MEDS: Cholecalciferol (VIT D3) 25 MCG TABLET (1,000 UNITS) 50 MCG PO (08:44)
[2023-06-16] MEDS: Sertraline 100 MG Tablet PO (08:44)
[2023-06-16] MEDS: Senna/Docusate Sodium 1 Tablet 2 TABLET PO ×2 (08:44→22:37)
[2023-06-16] MEDS: Meloxicam 15 MG Tablet PO (08:45)
[2023-06-16] MEDS: Gabapentin 600 MG Tablet PO ×3 (08:55→17:33)
[2023-06-16] MEDS: dexAMETHasone 4 MG Tablet 1 MG PO (08:56)
[2023-06-16 09:05] VITALS: BP 128/56; PULSE 77
[2023-06-16] MEDS: oxyCODONE 5 MG Tablet PO ×2 (10:01→15:45)
[2023-06-16] MEDS: tiZANidine HCl 2 MG Tablet PO ×2 (11:14→22:38)
[2023-06-16 11:20] VITALS: PULSE 79; RESP 18; O2SAT 94
[2023-06-16 15:47] VITALS: BP 104/64; PULSE 76; RESP 18; TEMP 36.4; O2SAT 96
[2023-06-16] MEDS: hydrOXYzine PAM 25 MG Capsule PO (22:37)
[2023-06-16] MEDS: Atorvastatin Calcium 10 MG Tablet PO (22:37)
[2023-06-17] MEDS: Enoxaparin 40 MG/0.4 ML Syringe SC (06:20)
[2023-06-17] MEDS: Acetaminophen 500 MG Tablet 1000 MG PO ×3 (06:20→22:23)
[2023-06-17] MEDS: Menthol/Lanolin/Calamine/Znox 113 GM Tube 1 APPLIC TOPICAL ×3 (06:20→22:18)
[2023-06-17] MEDS: oxyCODONE 5 MG Tablet PO ×4 (08:06→22:29)
[2023-06-17] MEDS: Gabapentin 600 MG Tablet PO ×3 (08:07→17:41)
[2023-06-17] MEDS: Juven (unflavored) Packet 1 PACKET PO ×2 (08:08→17:38)
[2023-06-17 08:15] VITALS: BP 106/54; PULSE 79; RESP 18; TEMP 36.1; O2SAT 98
[2023-06-17] MEDS: Spironolactone 25 MG Tablet PO (08:15)
[2023-06-17] MEDS: Losartan Potassium 50 MG Tablet PO ×2 (08:16→22:22)
[2023-06-17] MEDS: Meloxicam 15 MG Tablet PO (08:16)
[2023-06-17] MEDS: cloNIDine HCl 0.1 MG Tablet PO ×2 (08:16→22:21)
[2023-06-17] MEDS: dexAMETHasone 4 MG Tablet 1 MG PO (08:17)
[2023-06-17] MEDS: amLODIPine 10 MG Tablet PO (08:17)
[2023-06-17] MEDS: Sertraline 100 MG Tablet PO (08:17)
[2023-06-17] MEDS: Senna/Docusate Sodium 1 Tablet 2 TABLET PO ×2 (08:17→22:22)
[2023-06-17] MEDS: Cholecalciferol (VIT D3) 25 MCG TABLET (1,000 UNITS) 50 MCG PO (08:17)
[2023-06-17] MEDS: Tuberculin,Purif.prot.deriv. 50 TU/ML Vial 0.1 ML ID (10:19)
[2023-06-17 20:00] VITALS: PULSE 80; O2SAT 94
[2023-06-17] MEDS: Atorvastatin Calcium 10 MG Tablet PO (22:22)
[2023-06-17] MEDS: hydrOXYzine PAM 25 MG Capsule PO (22:23)
[2023-06-17 22:30] VITALS: BP 125/62; PULSE 75
[2023-06-17] MEDS: tiZANidine HCl 2 MG Tablet PO (22:47)
[2023-06-18] MEDS: oxyCODONE 5 MG Tablet PO ×2 (05:16→21:54)
[2023-06-18] MEDS: Menthol/Lanolin/Calamine/Znox 113 GM Tube 1 APPLIC TOPICAL ×2 (05:17→21:54)
[2023-06-18] MEDS: Acetaminophen 500 MG Tablet 1000 MG PO ×3 (05:18→21:45)
[2023-06-18] MEDS: Enoxaparin 40 MG/0.4 ML Syringe SC (05:19)
[2023-06-18] MEDS: dexAMETHasone 4 MG Tablet 1 MG PO (09:11)
[2023-06-18] MEDS: Juven (unflavored) Packet 1 PACKET PO ×2 (09:22→17:19)
[2023-06-18] MEDS: Cholecalciferol (VIT D3) 25 MCG TABLET (1,000 UNITS) 50 MCG PO (09:24)
[2023-06-18] MEDS: cloNIDine HCl 0.1 MG Tablet PO ×2 (09:24→21:44)
[2023-06-18] MEDS: Sertraline 100 MG Tablet PO (09:24)
[2023-06-18] MEDS: Gabapentin 600 MG Tablet PO ×3 (09:24→17:19)
[2023-06-18] MEDS: Senna/Docusate Sodium 1 Tablet 2 TABLET PO (09:24)
[2023-06-18] MEDS: Spironolactone 25 MG Tablet PO (09:25)
[2023-06-18] MEDS: amLODIPine 10 MG Tablet PO (09:25)
[2023-06-18] MEDS: Losartan Potassium 50 MG Tablet PO ×2 (09:25→21:44)
[2023-06-18] MEDS: Meloxicam 15 MG Tablet PO (09:25)
[2023-06-18 09:30] VITALS: BP 113/52; PULSE 75
[2023-06-18] MEDS: tiZANidine HCl 2 MG Tablet PO (10:53)
[2023-06-18 12:50] VITALS: PULSE 63; RESP 18; O2SAT 93
--- NOTE | 2023-06-18 13:07 | NURSING ---
WOUND CONSULT IN FOR PT LOWER BACK INCISION DUE TO CONCERNS.
[2023-06-18 15:57] VITALS: BP 110/61; PULSE 73; RESP 24; TEMP 35.3; O2SAT 99
[2023-06-18] MEDS: hydrOXYzine PAM 25 MG Capsule PO (21:46)
[2023-06-18] MEDS: Atorvastatin Calcium 10 MG Tablet PO (21:46)
[2023-06-19] MEDS: Menthol/Lanolin/Calamine/Znox 113 GM Tube 1 APPLIC TOPICAL ×3 (05:56→23:09)
[2023-06-19] MEDS: Enoxaparin 40 MG/0.4 ML Syringe SC (05:59)
[2023-06-19] MEDS: oxyCODONE 5 MG Tablet PO ×2 (05:59→10:27)
[2023-06-19] MEDS: Acetaminophen 500 MG Tablet 1000 MG PO ×3 (06:00→23:08)
[2023-06-19] MEDS: Juven (unflavored) Packet 1 PACKET PO ×2 (08:34→16:30)
[2023-06-19] MEDS: Spironolactone 25 MG Tablet PO (08:36)
[2023-06-19] MEDS: Losartan Potassium 50 MG Tablet PO ×2 (08:37→23:08)
[2023-06-19] MEDS: cloNIDine HCl 0.1 MG Tablet PO ×2 (08:37→23:08)
[2023-06-19] MEDS: Meloxicam 15 MG Tablet PO (08:38)
[2023-06-19] MEDS: Sertraline 100 MG Tablet PO (08:38)
[2023-06-19] MEDS: Cholecalciferol (VIT D3) 25 MCG TABLET (1,000 UNITS) 50 MCG PO (08:38)
[2023-06-19] MEDS: amLODIPine 10 MG Tablet PO (08:38)
[2023-06-19] MEDS: Gabapentin 600 MG Tablet PO ×3 (08:42→16:39)
[2023-06-19 08:44] VITALS: BP 111/46; PULSE 79
--- NOTE | 2023-06-19 10:17 | WOUNDNOTE ---
wound photo: mid lower back
[2023-06-19] MEDS: tiZANidine HCl 2 MG Tablet PO ×2 (10:25→23:17)
--- NOTE | 2023-06-19 10:41 | NURSING ---
CALLED OFFICE TO LET THEM KNOW PT BACK INCISION IS RED,LOOKS LIKE IT IS OPENING AND SMALL DRAINAGE WITH BROWN AREA ON SKIN. STATED TO OFFICE THAT WOUND NURSE DID COME AND LOOK AT AREA WITH ORDERS. OFFICE STATED THAT WAS NOT IN TODAY BUT WILL BE TOMORROW AND WILL LET HIM KNOW AND WAS SUPPOSE TO COME SEE PT ON 06/21/23. RN AWARE AND PT UPDATED.
[2023-06-19 14:25] VITALS: PULSE 65; RESP 18; O2SAT 94
[2023-06-19 16:00] VITALS: BP 101/56; PULSE 71; RESP 18; TEMP 36.2; O2SAT 96
[2023-06-19] MEDS: Atorvastatin Calcium 10 MG Tablet PO (23:09)
[2023-06-19] MEDS: Senna/Docusate Sodium 1 Tablet 2 TABLET PO (23:09)
[2023-06-19] MEDS: hydrOXYzine PAM 25 MG Capsule PO (23:09)
[2023-06-19 23:12] VITALS: BP 118/56; PULSE 70
[2023-06-20] MEDS: Acetaminophen 500 MG Tablet 1000 MG PO ×3 (05:34→21:31)
[2023-06-20] MEDS: Enoxaparin 40 MG/0.4 ML Syringe SC (05:34)
[2023-06-20] MEDS: oxyCODONE 5 MG Tablet PO ×3 (05:37→21:35)
[2023-06-20] MEDS: Menthol/Lanolin/Calamine/Znox 113 GM Tube 1 APPLIC TOPICAL ×3 (05:41→21:24)
[2023-06-20] MEDS: Juven (unflavored) Packet 1 PACKET PO ×2 (08:35→17:35)
[2023-06-20] MEDS: Losartan Potassium 50 MG Tablet PO ×2 (08:36→21:29)
[2023-06-20] MEDS: Spironolactone 25 MG Tablet PO (08:36)
[2023-06-20] MEDS: cloNIDine HCl 0.1 MG Tablet PO ×2 (08:36→21:29)
[2023-06-20] MEDS: Cholecalciferol (VIT D3) 25 MCG TABLET (1,000 UNITS) 50 MCG PO (08:37)
[2023-06-20] MEDS: Meloxicam 15 MG Tablet PO (08:37)
[2023-06-20] MEDS: Senna/Docusate Sodium 1 Tablet 2 TABLET PO ×2 (08:37→21:30)
[2023-06-20] MEDS: amLODIPine 10 MG Tablet PO (08:37)
[2023-06-20] MEDS: Sertraline 100 MG Tablet PO (08:38)
[2023-06-20] MEDS: tiZANidine HCl 2 MG Tablet PO ×2 (08:39→21:32)
[2023-06-20] MEDS: Gabapentin 600 MG Tablet PO ×3 (08:43→17:38)
[2023-06-20 12:11] VITALS: BMI 38.7
[2023-06-20 14:45] VITALS: BP 101/52; PULSE 57; RESP 14; TEMP 36.4; O2SAT 93
--- NOTE | 2023-06-20 15:25 | PCM.PN.ORT ---
Subjective Subjective Patient in TCU rehabilitating after surgery. She is approximately day 12 status post L4-5 laminotomy discectomy. She has a good improvement of her radicular symptoms after surgery but still has some residual radicular symptoms more towards the right side. She had some discharge from the wound. She denies any fevers. Objective Data Objective Data Vital Signs: Vital Signs Temp Pulse Resp BP Pulse Ox O2 Del Method 97.5 F L 57 L 14 101/52 L 93 Room Air 06/20/23 14:45 06/20/23 14:45 06/20/23 14:45 06/20/23 14:45 06/20/23 14:45 06/20/23 14:45 Oxygen Delivery Method Room Air Weight: 240 lb 6.4 oz Body Mass Index (BMI) 38.7 Intake & Output: Intake and Output for Last 24 Hours 06/18/23 06/19/23 06/20/23 23:59 23:59 23:59 Intake Total 600 / 600 1145 / 1145 645 / 645 Output Total 1999 / 1999 3900 / 3900 1500 / 1500 Balance -1400 / -1400 -2755 / -2755 -855 / -855 Lab / Micro Data 06/16/23 05:22 06/16/23 05:22 Physical Exam Narrative Dressing shows scanty serous discharge. Mild superficial dehiscence noticed. Distal neurovascular exam is stable compared to baseline. Assessment & Plan Assessment/Plan (1) Status post lumbar discectomy: PLAN: Plan I saw the patient in TCU. I examined the wound. She has mild superficial dehiscence. I cleared this with ChloraPrep. Dermabond tags were removed. New gauze dressing was applied. Recommend oral Keflex 500 3 times daily for 7 days. Frequent side turning and mobility to area of the incision. Recommend wound care consult for daily evaluation and wound care. Recommend Betadine swabs twice a day and dry dressing changes, or recommendations per wound care. If the wound does not dry off in the next 6 to 7 days or if it shows worsening discharge, please feel free to reach out to me. Otherwise follow-up in clinic in a month. Patient was in agreement.
[2023-06-20] MEDS: Atorvastatin Calcium 10 MG Tablet PO (21:30)
[2023-06-20] MEDS: Cephalexin 500 MG Capsule PO (21:30)
[2023-06-20] MEDS: hydrOXYzine PAM 25 MG Capsule PO (21:32)
[2023-06-21] MEDS: Menthol/Lanolin/Calamine/Znox 113 GM Tube 1 APPLIC TOPICAL ×3 (05:44→22:18)
[2023-06-21] MEDS: Cephalexin 500 MG Capsule PO ×3 (05:45→22:20)
[2023-06-21] MEDS: Acetaminophen 500 MG Tablet 1000 MG PO ×3 (05:45→22:21)
[2023-06-21] MEDS: tiZANidine HCl 2 MG Tablet PO ×2 (05:48→18:33)
[2023-06-21] MEDS: oxyCODONE 5 MG Tablet PO ×3 (05:50→22:24)
[2023-06-21] MEDS: Enoxaparin 40 MG/0.4 ML Syringe SC (05:53)
--- NOTE | 2023-06-21 06:07 | NURSING ---
Addendum entered by Cristal Aviles 06/21/23 12:47: Pt in pleasant mood this morning. No statements regarding brother or s/s depression/crying noted today. Original Note: PT teary this AM, today is brothers birtday, brother in November. 1:1 provided,
[2023-06-21 09:08] VITALS: BP 116/49; PULSE 73; RESP 18; TEMP 36.3; O2SAT 94
[2023-06-21] MEDS: Gabapentin 600 MG Tablet PO ×3 (09:10→18:32)
[2023-06-21] MEDS: Juven (unflavored) Packet 1 PACKET PO ×2 (09:10→18:32)
[2023-06-21] MEDS: amLODIPine 10 MG Tablet PO (09:11)
[2023-06-21] MEDS: Senna/Docusate Sodium 1 Tablet 2 TABLET PO ×2 (09:11→22:20)
[2023-06-21] MEDS: Sertraline 100 MG Tablet PO (09:12)
[2023-06-21] MEDS: Losartan Potassium 50 MG Tablet PO ×2 (09:12→22:20)
[2023-06-21] MEDS: Meloxicam 15 MG Tablet PO (09:12)
[2023-06-21] MEDS: Cholecalciferol (VIT D3) 25 MCG TABLET (1,000 UNITS) 50 MCG PO (09:12)
[2023-06-21] MEDS: cloNIDine HCl 0.1 MG Tablet PO ×2 (09:12→22:19)
[2023-06-21] MEDS: Spironolactone 25 MG Tablet PO (09:13)
[2023-06-21] MEDS: Pneumococcal Vaccine 20 Valent 0.5 ML Syringe IM (13:05)
[2023-06-21] MEDS: COVID VAC 23-24(12UP)(ANDU)/PF 50 MCG/0.5 ML SYRINGE IM (13:14)
[2023-06-21 22:17] VITALS: BP 145/54; PULSE 77
[2023-06-21] MEDS: Atorvastatin Calcium 10 MG Tablet PO (22:20)
[2023-06-21] MEDS: hydrOXYzine PAM 25 MG Capsule PO (22:21)
[2023-06-22] MEDS: Menthol/Lanolin/Calamine/Znox 113 GM Tube 1 APPLIC TOPICAL ×3 (05:00→22:27)
[2023-06-22] MEDS: Cephalexin 500 MG Capsule PO ×3 (05:01→22:30)
[2023-06-22] MEDS: Acetaminophen 500 MG Tablet 1000 MG PO ×3 (05:02→22:29)
[2023-06-22] MEDS: Enoxaparin 40 MG/0.4 ML Syringe SC (05:03)
[2023-06-22] MEDS: oxyCODONE 5 MG Tablet PO ×2 (05:03→11:20)
[2023-06-22] MEDS: Juven (unflavored) Packet 1 PACKET PO ×2 (08:14→17:02)
[2023-06-22] MEDS: Spironolactone 25 MG Tablet PO (08:14)
[2023-06-22] MEDS: Losartan Potassium 50 MG Tablet PO ×2 (08:15→22:31)
[2023-06-22] MEDS: cloNIDine HCl 0.1 MG Tablet PO ×2 (08:15→22:31)
[2023-06-22] MEDS: amLODIPine 10 MG Tablet PO (08:16)
[2023-06-22] MEDS: Senna/Docusate Sodium 1 Tablet 2 TABLET PO ×2 (08:16→22:29)
[2023-06-22] MEDS: Meloxicam 15 MG Tablet PO (08:16)
[2023-06-22] MEDS: Sertraline 100 MG Tablet PO (08:17)
[2023-06-22] MEDS: Cholecalciferol (VIT D3) 25 MCG TABLET (1,000 UNITS) 50 MCG PO (08:17)
[2023-06-22] MEDS: Gabapentin 600 MG Tablet PO ×3 (08:22→17:09)
[2023-06-22] MEDS: tiZANidine HCl 2 MG Tablet PO (08:29)
[2023-06-22 08:32] VITALS: BP 120/46; PULSE 61
--- NOTE | 2023-06-22 12:35 | MDS.RN ---
Information for the MDS was obtained from review of the clinical record, interview of resident, staff, and direct observation of resident?s care.
[2023-06-22 14:57] VITALS: BP 94/41; PULSE 69; RESP 16; TEMP 36.4; O2SAT 93
--- NOTE | 2023-06-22 16:32 | NURSING ---
PT CRYING AND STATING HER PAIN IS A 10/10 TODAY. PT THINKS IT MAYBE DUE TO HER LYING ON HER SIDE. REPOSITION PT TO BACK. ALL PAIN MEDS HAVE BEEN GIVEN. STATED TO PT IT SEEMS LIKE HER PAIN IS WORSE TODAY THEN IT HAS BEEN LAST FEW DAYS I HAD HER. PT STATED I GET DAYS LIKE THIS WHEN I HAVE A FEW GOOD DAYS THEN I GET A BAD DAY. WILL LET KNOW TO SEE IF OXYIR CAN BE INCREASED. RN AWARE
[2023-06-22] MEDS: Atorvastatin Calcium 10 MG Tablet PO (22:29)
[2023-06-22] MEDS: hydrOXYzine PAM 25 MG Capsule PO (22:30)
[2023-06-22 23:00] VITALS: PULSE 80; RESP 18; O2SAT 98
[2023-06-23 06:12] LABS: Absolute Lymphocyte Count 1.46 X10^3/uL (0.83-4.51); Absolute Neutrophil Count 6.9 X10^3/uL (2.0-7.7); Basophil# 0.05 X10^3/uL; Basophil% 0.5 % (0-1); Eosinophil# 0.34 X10^3/uL; Eosinophils% 3.5 % (0-5); Hematocrit 33.3 % (37-47); Hemoglobin 10.9 g/dL (12.0-15.0); Lymphocyte # 1.46 X10^3/ul (0.83-4.51); Lymphocyte % 14.9 % (19-41); Mean Corp Hgb Conc 32.7 g/dL (32-36); Mean Corpuscular Hgb 27.4 pg (27.0-32.0); Mean Corpuscular Volume 83.7 fL (81-99); Mean Platelet Vol. 9.1 fl (6.2-12.0); Monocyte# 0.96 X10^3/uL; Monocyte% 9.8 % (0-10); NRBC Flagged by Analyzer 0 % (0-5); Neutrophil # 6.92 X10^3/uL (2.7-7.7); Neutrophil % 70.7 % (47-70); Platelet Count 236 K/mm3 (150-450); RBC Distribution Width CV 13.7 % (11.6-14.6); RBC Distribution Width SD 41.9 fl (35.1-43.9); Red Blood Count 3.98 M/mm3 (4.2-5.4); White Blood Count 9.8 K/mm3 (4.4-11.0)
[2023-06-23] MEDS: Menthol/Lanolin/Calamine/Znox 113 GM Tube 1 APPLIC TOPICAL ×3 (06:36→22:18)
[2023-06-23] MEDS: Enoxaparin 40 MG/0.4 ML Syringe SC (06:39)
[2023-06-23] MEDS: oxyCODONE 5 MG Tablet PO (06:39)
[2023-06-23] MEDS: Acetaminophen 500 MG Tablet 1000 MG PO ×3 (06:39→22:23)
[2023-06-23 06:40] LABS: Anion Gap 6 (5-15); BUN 58 mg/dL (7-18); BUN/Creat Ratio 78.3 RATIO (10-20); Calcium,Total 10.1 mg/dL (8.5-10.1); Chloride 98 mmol/L (98-107); Creatinine, Serum 0.74 mg/dL (0.55-1.02); EST Glomerular Filtration Rate 82 mL/min (>60); Est Glom Filt Rate - Afr Amer 100 mL/min (>60); Estimated Creatinine Clearance 82.98 ml/min; Glucose 103 mg/dL (74-106); Potassium 5.5 mmol/L (3.5-5.1); Sodium Level 127 mmol/L (136-145)
[2023-06-23] MEDS: Cephalexin 500 MG Capsule PO ×3 (06:40→22:20)
[2023-06-23 08:50] LABS: Iron 24 ug/dL (50-170); Iron Binding Capacity,Total 264 ug/dL (250-450); PERCENT IRON SATURATION 9.1 % (15.0-55.0)
[2023-06-23 08:56] VITALS: BP 96/48; PULSE 68; RESP 17; TEMP 36.2; O2SAT 94
[2023-06-23] MEDS: Juven (unflavored) Packet 1 PACKET PO ×2 (09:01→17:15)
[2023-06-23] MEDS: Sertraline 100 MG Tablet PO (09:02)
[2023-06-23] MEDS: Senna/Docusate Sodium 1 Tablet 2 TABLET PO ×2 (09:02→22:24)
[2023-06-23] MEDS: Cholecalciferol (VIT D3) 25 MCG TABLET (1,000 UNITS) 50 MCG PO (09:02)
[2023-06-23] MEDS: Gabapentin 600 MG Tablet PO ×3 (09:04→17:15)
[2023-06-23] MEDS: Sodium Polystyrene Sulfonate 15 GM/60 ML UDC 30 GM PO (09:07)
[2023-06-23 09:12] LABS: Urine Sodium 43 mmol/L (Not Establ.)
[2023-06-23 09:30] LABS: Osmolality, Urine 462 mOsm/KG
[2023-06-23 09:55] LABS: Osmolality, Serum 283 mOsm/KG (280-301)
[2023-06-23 10:34] VITALS: BP 100/42; PULSE 69
--- NOTE | 2023-06-23 10:48 | NURSING ---
Patient refused morning blood pressure medication d/t low BP. Patient asymptomatic. Communication left for Dr. Karimi.
[2023-06-23] MEDS: tiZANidine HCl 2 MG Tablet PO ×2 (12:53→22:26)
[2023-06-23 14:13] LABS: Hematocrit 34.1 % (37-47)
--- NOTE | 2023-06-23 14:18 | NURSING ---
Addendum entered by Sneha Santoyo 06/23/23 14:21: CT to be completed to rule out bleeding around surgical site. Original Note: Call from Dr. Karimi, order to do sacral/lumbar spine CT. Order faxed to CT.
[2023-06-23] MEDS: 0.9% Saline Lock 10 ML Syringe IV ×2 (14:27→22:32)
[2023-06-23] MEDS: 0.9% Normal Saline (250mL Bag) 250 ML 15 ML IV (14:28)
[2023-06-23] MEDS: Sodium Ferric Gluconat/Sucrose 250 MG in 0.9% Normal Saline (250mL Bag) 250 ML 135 MG IV (14:28)
[2023-06-23] MEDS: oxyCODONE 5 MG Tablet 10 MG PO ×2 (14:33→22:28)
[2023-06-23] MEDS: Atorvastatin Calcium 10 MG Tablet PO (22:23)
[2023-06-23] MEDS: hydrOXYzine PAM 25 MG Capsule PO (22:24)
[2023-06-23 22:56] VITALS: BP 141/53; PULSE 79
[2023-06-24] MEDS: Menthol/Lanolin/Calamine/Znox 113 GM Tube 1 APPLIC TOPICAL ×3 (05:22→21:08)
[2023-06-24] MEDS: Acetaminophen 500 MG Tablet 1000 MG PO ×3 (05:23→21:12)
[2023-06-24] MEDS: Cephalexin 500 MG Capsule PO ×3 (05:23→21:10)
[2023-06-24] MEDS: oxyCODONE 5 MG Tablet 10 MG PO ×3 (05:26→21:04)
[2023-06-24 08:06] LABS: Absolute Lymphocyte Count 1.32 X10^3/uL (0.83-4.51); Absolute Neutrophil Count 6.3 X10^3/uL (2.0-7.7); Basophil# 0.06 X10^3/uL; Basophil% 0.7 % (0-1); Eosinophil# 0.34 X10^3/uL; Eosinophils% 3.8 % (0-5); Hematocrit 35.3 % (37-47); Hemoglobin 11.4 g/dL (12.0-15.0); Lymphocyte # 1.32 X10^3/ul (0.83-4.51); Lymphocyte % 14.7 % (19-41); Mean Corp Hgb Conc 32.3 g/dL (32-36); Mean Corpuscular Hgb 27.6 pg (27.0-32.0); Mean Corpuscular Volume 85.5 fL (81-99); Mean Platelet Vol. 9.3 fl (6.2-12.0); Monocyte# 0.97 X10^3/uL; Monocyte% 10.8 % (0-10); NRBC Flagged by Analyzer 0 % (0-5); Neutrophil # 6.25 X10^3/uL (2.7-7.7); Neutrophil % 69.3 % (47-70); Platelet Count 248 K/mm3 (150-450); RBC Distribution Width CV 13.6 % (11.6-14.6); RBC Distribution Width SD 42.4 fl (35.1-43.9); Red Blood Count 4.13 M/mm3 (4.2-5.4)
[2023-06-24] MEDS: Juven (unflavored) Packet 1 PACKET PO ×2 (08:30→17:43)
[2023-06-24] MEDS: Gabapentin 600 MG Tablet PO ×3 (08:30→17:43)
[2023-06-24] MEDS: tiZANidine HCl 2 MG Tablet PO ×2 (08:31→21:06)
[2023-06-24 08:40] LABS: Anion Gap 5 (5-15); BUN 34 mg/dL (7-18); BUN/Creat Ratio 61.3 RATIO (10-20); Calcium,Total 9.8 mg/dL (8.5-10.1); Chloride 96 mmol/L (98-107); Creatinine, Serum 0.56 mg/dL (0.55-1.02); EST Glomerular Filtration Rate 115 mL/min (>60); Est Glom Filt Rate - Afr Amer 139 mL/min (>60); Estimated Creatinine Clearance 82.98 ml/min; Glucose 92 mg/dL (74-106); Potassium 4.9 mmol/L (3.5-5.1); Sodium Level 129 mmol/L (136-145)
[2023-06-24] MEDS: Losartan Potassium 50 MG Tablet PO ×2 (10:03→21:14)
[2023-06-24] MEDS: Senna/Docusate Sodium 1 Tablet 2 TABLET PO ×2 (10:04→21:11)
[2023-06-24] MEDS: Sertraline 100 MG Tablet PO (10:05)
[2023-06-24] MEDS: Cholecalciferol (VIT D3) 25 MCG TABLET (1,000 UNITS) 50 MCG PO (10:05)
[2023-06-24 16:00] VITALS: BP 130/68; PULSE 88; RESP 20; TEMP 37; O2SAT 96
[2023-06-24] MEDS: hydrOXYzine PAM 25 MG Capsule PO (21:13)
[2023-06-24] MEDS: Atorvastatin Calcium 10 MG Tablet PO (21:14)
[2023-06-24] MEDS: 0.9% Saline Lock 10 ML Syringe IV (21:17)
[2023-06-24 21:23] VITALS: BP 130/59; PULSE 89
[2023-06-25] MEDS: Menthol/Lanolin/Calamine/Znox 113 GM Tube 1 APPLIC TOPICAL ×3 (05:13→22:02)
[2023-06-25] MEDS: Acetaminophen 500 MG Tablet 1000 MG PO ×3 (05:14→22:06)
[2023-06-25] MEDS: Cephalexin 500 MG Capsule PO ×3 (05:14→22:05)
[2023-06-25] MEDS: tiZANidine HCl 2 MG Tablet PO ×2 (05:17→16:33)
[2023-06-25] MEDS: oxyCODONE 5 MG Tablet 10 MG PO ×4 (05:21→20:29)
[2023-06-25 06:10] LABS: Absolute Lymphocyte Count 1.53 X10^3/uL (0.83-4.51); Absolute Neutrophil Count 6.1 X10^3/uL (2.0-7.7); Basophil# 0.04 X10^3/uL; Basophil% 0.4 % (0-1); Eosinophil# 0.28 X10^3/uL; Eosinophils% 3.1 % (0-5); Hematocrit 32.6 % (37-47); Hemoglobin 10.5 g/dL (12.0-15.0); Lymphocyte # 1.53 X10^3/ul (0.83-4.51); Mean Corp Hgb Conc 32.2 g/dL (32-36); Mean Corpuscular Hgb 27.4 pg (27.0-32.0); Mean Corpuscular Volume 85.1 fL (81-99); Monocyte# 0.98 X10^3/uL; Monocyte% 10.9 % (0-10); NRBC Flagged by Analyzer 0 % (0-5); Neutrophil # 6.11 X10^3/uL (2.7-7.7); Platelet Count 210 K/mm3 (150-450); RBC Distribution Width CV 13.6 % (11.6-14.6); Red Blood Count 3.83 M/mm3 (4.2-5.4)
[2023-06-25 06:35] LABS: Anion Gap 4 (5-15); BUN 33 mg/dL (7-18); Chloride 97 mmol/L (98-107); Creatinine, Serum 0.57 mg/dL (0.55-1.02); EST Glomerular Filtration Rate 112 mL/min (>60); Est Glom Filt Rate - Afr Amer 135 mL/min (>60); Estimated Creatinine Clearance 82.98 ml/min; Glucose 94 mg/dL (74-106); Potassium 4.5 mmol/L (3.5-5.1); Sodium Level 128 mmol/L (136-145)
[2023-06-25] MEDS: Losartan Potassium 50 MG Tablet PO ×2 (10:00→22:04)
[2023-06-25] MEDS: Juven (unflavored) Packet 1 PACKET PO ×2 (10:19→16:33)
[2023-06-25] MEDS: Senna/Docusate Sodium 1 Tablet 2 TABLET PO ×2 (10:20→22:06)
[2023-06-25] MEDS: Sertraline 100 MG Tablet PO (10:22)
[2023-06-25] MEDS: Cholecalciferol (VIT D3) 25 MCG TABLET (1,000 UNITS) 50 MCG PO (10:23)
[2023-06-25] MEDS: Gabapentin 600 MG Tablet PO ×3 (10:28→17:54)
[2023-06-25] MEDS: 0.9% Saline Lock 10 ML Syringe IV ×2 (10:31→22:10)
[2023-06-25 13:50] VITALS: BP 107/47; PULSE 85; RESP 14; TEMP 36.8; O2SAT 95
[2023-06-25 20:30] VITALS: PULSE 84; O2SAT 92
[2023-06-25] MEDS: Atorvastatin Calcium 10 MG Tablet PO (22:05)
[2023-06-25] MEDS: hydrOXYzine PAM 25 MG Capsule PO (22:07)
[2023-06-25 22:56] VITALS: BP 128/57; PULSE 85
[2023-06-26] MEDS: oxyCODONE 5 MG Tablet 10 MG PO ×5 (00:27→17:26)
[2023-06-26] MEDS: tiZANidine HCl 2 MG Tablet PO ×3 (00:29→17:01)
[2023-06-26] MEDS: Menthol/Lanolin/Calamine/Znox 113 GM Tube 1 APPLIC TOPICAL ×3 (05:09→22:41)
[2023-06-26] MEDS: Acetaminophen 500 MG Tablet 1000 MG PO ×3 (05:10→22:40)
[2023-06-26] MEDS: Cephalexin 500 MG Capsule PO ×3 (05:10→22:40)
--- NOTE | 2023-06-26 05:29 | NURSING ---
PT received prune juice with butter for bowel protocol.
[2023-06-26 06:55] LABS: Anion Gap 2 (5-15); BUN 43 mg/dL (7-18); BUN/Creat Ratio 62.3 RATIO (10-20); Chloride 97 mmol/L (98-107); Creatinine, Serum 0.69 mg/dL (0.55-1.02); EST Glomerular Filtration Rate 90 mL/min (>60); Est Glom Filt Rate - Afr Amer 108 mL/min (>60); Estimated Creatinine Clearance 82.98 ml/min; Glucose 107 mg/dL (74-106); Potassium 5.4 mmol/L (3.5-5.1); Sodium Level 127 mmol/L (136-145)
[2023-06-26] MEDS: Cholecalciferol (VIT D3) 25 MCG TABLET (1,000 UNITS) 50 MCG PO (09:06)
[2023-06-26] MEDS: Juven (unflavored) Packet 1 PACKET PO ×2 (09:06→17:01)
[2023-06-26] MEDS: Losartan Potassium 50 MG Tablet PO (09:06)
[2023-06-26] MEDS: Gabapentin 600 MG Tablet PO ×3 (09:06→17:01)
[2023-06-26] MEDS: Senna/Docusate Sodium 1 Tablet 2 TABLET PO ×2 (09:06→22:38)
[2023-06-26] MEDS: 0.9% Normal Saline (1000mL) 1,000 ML 75 ML IV ×2 (09:07→22:38)
[2023-06-26] MEDS: Sertraline 100 MG Tablet PO (09:07)
[2023-06-26] MEDS: 0.9% Saline Lock 10 ML Syringe IV (09:07)
[2023-06-26] MEDS: Sodium Polystyrene Sulfonate 15 GM/60 ML UDC 30 GM PO (09:20)
--- NOTE | 2023-06-26 10:38 | WOUNDNOTE ---
wound photo: mid lower back
[2023-06-26 14:48] VITALS: BP 103/63; PULSE 84; RESP 13; TEMP 36.4; O2SAT 97
[2023-06-26] MEDS: Bisacodyl 10 MG Suppository RC (18:49)
[2023-06-26] MEDS: hydrOXYzine PAM 25 MG Capsule PO (22:40)
[2023-06-26] MEDS: Atorvastatin Calcium 10 MG Tablet PO (22:40)
[2023-06-26 22:48] VITALS: BP 106/43; PULSE 84; RESP 18
[2023-06-26 23:07] VITALS: PULSE 86; O2SAT 92
--- NOTE | 2023-06-26 23:29 | CPS ---
[2307] Pt. on home VAuto BiPAP unit. Pressures starting at 8/4. (12/8 final pressures)
[2023-06-27] VITALS: RESP 18; TEMP 36.8
[2023-06-27 05:44] LABS: Absolute Lymphocyte Count 1.42 X10^3/uL (0.83-4.51); Absolute Neutrophil Count 5.1 X10^3/uL (2.0-7.7); Basophil# 0.05 X10^3/uL; Basophil% 0.7 % (0-1); Eosinophil# 0.31 X10^3/uL; Eosinophils% 4.1 % (0-5); Hematocrit 28.5 % (37-47); Hemoglobin 9.1 g/dL (12.0-15.0); Lymphocyte # 1.42 X10^3/ul (0.83-4.51); Lymphocyte % 18.8 % (19-41); Mean Corp Hgb Conc 31.9 g/dL (32-36); Mean Corpuscular Hgb 27.3 pg (27.0-32.0); Mean Corpuscular Volume 85.6 fL (81-99); Mean Platelet Vol. 9.2 fl (6.2-12.0); Monocyte# 0.63 X10^3/uL; Monocyte% 8.3 % (0-10); NRBC Flagged by Analyzer 0 % (0-5); Neutrophil # 5.09 X10^3/uL (2.7-7.7); Neutrophil % 67.4 % (47-70); Platelet Count 222 K/mm3 (150-450); RBC Distribution Width CV 13.7 % (11.6-14.6); RBC Distribution Width SD 43.1 fl (35.1-43.9); Red Blood Count 3.33 M/mm3 (4.2-5.4); White Blood Count 7.6 K/mm3 (4.4-11.0)
[2023-06-27 06:18] LABS: Anion Gap 4 (5-15); BUN 51 mg/dL (7-18); Calcium,Total 9.3 mg/dL (8.5-10.1); Chloride 100 mmol/L (98-107); Creatinine, Serum 0.57 mg/dL (0.55-1.02); EST Glomerular Filtration Rate 111 mL/min (>60); Est Glom Filt Rate - Afr Amer 134 mL/min (>60); Estimated Creatinine Clearance 82.98 ml/min; Glucose 102 mg/dL (74-106); Potassium 5.3 mmol/L (3.5-5.1); Sodium Level 130 mmol/L (136-145)
--- NOTE | 2023-06-27 06:18 | NURSING ---
Written communication left for Dr. Karimi regarding stool lab results, also updated on patient confusion at times, incontinence and requesting purwick at all times. Presents as paranoid at times AEB verbalizing spies are around and people watching me when hearing the IV pump sound, answers questions appropriately when asked person/place/time/situation. Overnight pulse ox completed. No distress observed or reported. Call light in reach.
[2023-06-27] MEDS: Menthol/Lanolin/Calamine/Znox 113 GM Tube 1 APPLIC TOPICAL ×3 (06:24→20:43)
[2023-06-27] MEDS: Cephalexin 500 MG Capsule PO ×3 (06:24→20:39)
[2023-06-27] MEDS: Acetaminophen 500 MG Tablet 1000 MG PO ×3 (06:24→20:38)
[2023-06-27] MEDS: oxyCODONE 5 MG Tablet 10 MG PO (06:46)
[2023-06-27 07:45] VITALS: BP 143/44; PULSE 84; RESP 17; TEMP 36.3; O2SAT 95
[2023-06-27] MEDS: Losartan Potassium 50 MG Tablet PO ×2 (07:52→20:39)
[2023-06-27] MEDS: Senna/Docusate Sodium 1 Tablet 2 TABLET PO ×2 (07:52→20:38)
[2023-06-27] MEDS: Cholecalciferol (VIT D3) 25 MCG TABLET (1,000 UNITS) 50 MCG PO (07:52)
[2023-06-27] MEDS: Gabapentin 600 MG Tablet PO ×3 (07:52→18:24)
[2023-06-27] MEDS: Juven (unflavored) Packet 1 PACKET PO (07:52)
[2023-06-27] MEDS: Sertraline 100 MG Tablet PO (07:53)
[2023-06-27] MEDS: tiZANidine HCl 2 MG Tablet PO ×2 (07:53→16:29)
[2023-06-27] MEDS: Sodium Polystyrene Sulfonate 15 GM/60 ML UDC 30 GM PO (09:32)
[2023-06-27] MEDS: Polyethylene Glycol 3350 17 GM PACKET PO ×2 (09:32→20:38)
[2023-06-27] MEDS: 0.9% Normal Saline (1000mL) 1,000 ML 75 ML IV (11:27)
[2023-06-27] MEDS: oxyCODONE 5 MG Tablet PO ×2 (11:30→16:29)
[2023-06-27 12:58] LABS: Bacteria 0 SEEN /hpf (None Seen); Color, Urine Yellow (Yellow); Glucose, Dipstick Normal (Normal); Ketone-Dipstick Negative (Negative); Leukocyte Esterase-Dipstick 500 /ul (Negative); Mucous, Urine 0 SEEN /hpf (<or=2+); Nitrite-Dipstick Negative (Negative); Occult Blood-Urine Negative /ul (Negative); Protein-Dipstick Negative (Negative); Red Blood Cells-Urine 0 SEEN /hpf (0-5); Squamous Epithelial Cells - UA 0 SEEN /hpf (5-10); Urine Bilirubin Dipstick Negative (Negative); Urine Clarity Clear (Clear); Urine Urobilinogen Normal (Normal)
[2023-06-27 13:07] LABS: White Blood Cells 5-10 SEEN /hpf (0-5)
[2023-06-27 14:00] VITALS: BMI 41.1
--- NOTE | 2023-06-27 18:17 | NURSING ---
Call placed to Dr. Karimi. Dr. Patel to completed upper and lower scope tomorrow 06/27. Per Dr. Patel will order bowel prep this evening. Do you want to d/c lactulose enema? New order from Dr. Karimi to DC Lactulose enema.
--- NOTE | 2023-06-27 18:35 | CASEMGMT ---
Social Work SW met with patient at bedside per patient request. Patient informed SW that she is upset and frustrated that she is unaware of what is causing health decline. Patient expressed concerns for increased pain in legs, deconditioned state, and bloody stools. Patient informed SW that she wants to speak with Physician regarding condition. Patient is very tearful during encounter. 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 SW informed patient of current concerns for return to home due to lack of support and patient current lack of physical ability to transfer self to wheelchair. Patient currently require a nurys. Patient informed SW that she will call friends for support. SW informed patient that she will require 24/hr care and support with addition to wound care. Patient informed SW that she does not want to go to intermediate. Patient informed SW that she can return home with purewick and home care to assist. SW informed patient of barriers to safe care. Patient is requesting to obtain more therapy for care at TCU. 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 During encounter, Dr. Patel met with patient to discuss potential GI Bleed due to decline in HGB, currently at 9.1L. Patient will be scheduled for possible Colonoscopy. Patient will require additional care for home safety. SW will assist with additional referral for care. ERICKA Perez
[2023-06-27] MEDS: Bisacodyl 5 MG Tablet 20 MG PO (18:48)
[2023-06-27] MEDS: Electrolyte Solution/Peg's 4000 ML PO (18:56)
--- NOTE | 2023-06-27 18:58 | EX.PCM.CON.G ---
HPI Consult Data Date of Consult: 06/27/23 HPI Narrative Reason for Consultation: Anemia HPI Narrative: BARBARA KARIMI, is a The patient is a 67 y/o F came to ED with low back pain and right lower extremity pain for about 1 month. She has a history of 2 back surgeries in the past. Patient is in a wheelchair. She also has disequilibrium/loss of balance and near fall situation, guarded weight between the wall of the toilet on day of admission She was diagnosed with adult FTT secondary to Acute Intractable Back Pain lumbar spine with right lower extremity radiculopathy with adult failure to thrive, debility, inability to ambulate. MRI displayed severe central canal stenosis at L4-L5 and L5-S1 and large amount of extruded disc material. Pain seems better than yesterday. Spine surgeon Dr. Kwasi Cheatham called to see the patient in afternoon. Requested pain management consult Dr. Panchal for evaluation for epidural injection. On multiple opioid and steroid medications. Medrol oral Dosepak changed to dexamethasone. Tizanidine and oxycodone. Patient evaluated by both spine surgeon Dr. Kwasi Cheatham and Dr. Wheatley. Scheduled for surgery tomorrow. Patient had L4-5 left-sided laminotomy, discectomy for large L4-5 central disc herniation. Clinically patient feels much improvement in pain after surgery. Surgical dressing is dry.Patient has leukocytosis from being on a steroid. Hyperglycemia from steroid.Patient does not have history of DM She also has a history of chronic normocytic anemia: Admission hemoglobin 11.1, MCV 86.4, baseline hemoglobin similar range, 06/04/23 Hgb 11, MCV 87.5. I was consulted because her hemoglobin keeps dropping and she was Hemoccult positive. She also has never had a colonoscopy. [facility] Medical History (Updated 06/15/23 @ 00:02 by Background Raudel) Lumbar radiculopathy, acute Morbid obesity IRIS treated with BiPAP Anxiety and depression History of alcohol abuse Thyroid nodule Former smoker COPD (chronic obstructive pulmonary disease) Atrial fibrillation Neuropathic pain Vitamin D deficiency Hyperlipidemia Herpes zoster Hypertension Osteoarthritis of knees, bilateral Pseudogout of right knee Thoracic spinal stenosis Home Medications ?Medication ?Instructions ?Recorded ?Last Taken ?Type atorvastatin 10 mg tablet 10 mg PO DAILY@2200 Cholesterol 12/08/20 06/08/23 22:15 History cholecalciferol (vitamin D3) 25 2,000 unit PO DAILY Supplement 12/08/20 06/01/23 History mcg (1,000 unit) tablet (Vitamin D3) clonidine HCl 0.1 mg tablet 0.1 mg PO BID BP 12/08/20 06/09/23 10:05 History diclofenac sodium 1 % topical gel 1 ea topical Q6H Pain 12/08/20 06/01/23 History (Voltaren Arthritis Pain) sertraline 100 mg tablet 100 mg PO DAILY Mood 12/08/20 06/09/23 10:10 History hydroxyzine pamoate 25 mg capsule 25 mg PO QHS anxiety 30 days #30 01/11/21 06/08/23 10:15 Rx caps orphenadrine citrate 100 mg 100 mg PO BID PRN muscle spasm #10 05/02/23 06/01/23 Rx tablet,extended release tabs amlodipine 10 mg tablet 10 mg PO DAILY heart 06/02/23 06/09/23 10:00 History ketoconazole 2 % topical cream 1 applic topical DAILY skin 06/02/23 06/01/23 History spironolactone 25 mg tablet 25 mg PO DAILY swelling 06/02/23 06/09/23 10:05 History valsartan 160 mg tablet 160 mg PO DAILY blood pressure 06/02/23 06/09/23 10:05 History valsartan 80 mg tablet 80 mg PO DAILY blood pressure 06/02/23 06/08/23 22:25 History acetaminophen 500 mg tablet 1,000 mg (2 x 500 mg) PO Q8 severe 06/09/23 06/09/23 06:15 Rx pain #0 tabs dexamethasone 4 mg tablet 2 mg (1/2 x 4 mg) PO BIDCM pain #0 06/09/23 06/09/23 08:05 Rx tabs gabapentin 600 mg tablet 600 mg PO TIDCM nerve pain #0 tabs 06/09/23 06/09/23 11:35 Rx meloxicam 15 mg tablet 15 mg PO DAILY pain #0 tabs 06/09/23 06/09/23 10:05 Rx oxycodone 5 mg tablet 2.5 - 5 mg (0.5 - 1 x 5 mg) PO Q4H 06/09/23 Unknown Rx PRN PRN Pain Score 6-10 #0 tabs sennosides 8.6 mg-docusate sodium 2 tab PO BID constipation #0 tabs 06/09/23 06/03/23 Rx 50 mg tablet (Stool Softener-Stimulant Laxative) tizanidine 2 mg tablet 2 mg PO Q8H PRN PRN muscle spasms 06/09/23 06/07/23 08:08 Rx #0 tabs Allergy/AdvReac Type Severity Reaction Status Date / Time hydrocodone (From Vicodin) Allergy Anaphylaxis Verified 06/02/23 16:42 lorazepam (From Ativan) Allergy Hives Verified 06/02/23 16:42 neomycin Allergy Hives Verified 06/02/23 16:42 Family History Mother No problems noted. Father Leukemia Diabetes Surgical History (Updated 06/15/23 @ 00:02 by Betsy Starks) History of back surgery History of back surgery History of adenoidectomy Hx of tonsillectomy Social History (Updated 06/09/23 @ 19:[address] Darrel Karimi MD) household members: none Smoking Status: Former smoker how long ago did patient quit smoking: Quit 45 yrs prior, smoked 1 ppd starting age 19 until quit. alcohol intake: former details: Drank heavily prior, sober x 45 years. substance use type: does not use ROS Constitutional Constitutional: Reports weakness; Denies chills, fever(s) or weight gain ENT HEENT: Denies headache(s), nasal congestion or nasal discharge Cardiovascular Cardiovascular: Denies chest pain or palpitations Respiratory/Chest Respiratory/Chest: Denies cough, excessive phlegm production or shortness of breath with exertion Gastrointestinal Gastrointestinal: Denies abdominal pain, nausea or vomiting Genitourinary Genitourinary: Denies dysuria Musculoskeletal Musculoskeletal: Reports back pain and muscle spasms; Denies joint pain or joint swelling Integumentary Integumentary: Denies rash or wounds Neurologic Neurologic: Denies focal weakness, numbness or tingling Psychiatric Psychiatric: Denies anxiety, auditory hallucinations, depression, homicidal ideation or suicidal ideation Physical Exam Narrative Seen and examined. Physical exam General: Alert, Oriented x3, Cooperative HEENT: Atraumatic, PERRLA, EOMI, Normocephalic Oral: Oral mucosa moist no Gingival or Mucosal Lesions/ Ulcerations Neck: Supple, No JVD, Negative Carotid Bruits Chest wall/Lungs: Air entry diminished in bilateral lung bases. No crepitation/rhonchi Cardiovascular: Irregular rhythm, Normal S1, Normal S2, systolic murmur Abdomen: Bowel Sounds Present, Soft, Non Tender, Non-Distended : No Atkins catheter. No dysuria. No renal angle tenderness. No suprapubic tenderness. Extremities: No edema, Capillary Refill Less than 3 Seconds Skin: Surgical dressing on the lumbar back is dry. Mild tenderness around the operative region. Musculoskeletal: Numbness tingling improved. Muscle strength 4+/5 at knees and hips likely due to pain and spasm Neurological: Cranial nerves II-XII grossly intact, DTR 2+/4. L4-5 L5-S1 radiculopathy pain has much improved. Psych/Mental Status: Flat affect Lab / Micro Data 06/27/23 05:13 06/27/23 05:13 Labs: Laboratory Results - last 24 hr 06/27/23 05:13: WBC 7.6, RBC 3.33 L, Hgb 9.1 L, Hct 28.5 L, MCV 85.6, MCH 27.3, MCHC 31.9 L, RDW Std Deviation 43.1, RDW Coeff of Laila 13.7, Plt Count 222, MPV 9.2, Immature Gran % (Auto) 0.700, Neut % (Auto) 67.4, Lymph % (Auto) 18.8 L, Cocke % (Auto) 8.3, Eos % (Auto) 4.1, Baso % (Auto) 0.7, Absolute Neuts (auto) 5.1, Absolute Lymphs (auto) 1.42, Nucleated RBC % 0, Sodium 130 L, Potassium 5.3 H, Chloride 100, Carbon Dioxide 26.0, Anion Gap 4 L, BUN 51 H, Creatinine 0.57, Estim Creat Clear Calc 82.98, Est GFR (MDRD) Af Amer 134, Est GFR (MDRD) Non-Af 111, BUN/Creatinine Ratio 89.0 H, Glucose 102, Calcium 9.3 06/27/23 09:50: Urine Color Yellow, Urine Clarity Clear, Urine pH 6.0, Ur Specific [place] 1.010, Urine Protein Negative, Urine Glucose (UA) Normal, Urine Ketones Negative, Urine Occult Blood Negative, Urine Nitrite Negative, Urine Bilirubin Negative, Urine Urobilinogen Normal, Ur Leukocyte Esterase 500 H, Urine RBC 0 SEEN, Urine WBC 5-10 SEEN, Ur Squamous Epith Cells 0 SEEN, Urine Bacteria 0 SEEN, Urine Mucus 0 SEEN Micro: Microbiology 06/26/23 20:27 Stool Stool Occult Blood (LUCINA) - Final Occult Blood Positive Assessment & Plan Assessment/Plan (1) Intractable back pain: PLAN: Plan The patient is a 67 y/o F came to ED with low back pain and right lower extremity pain for about 1 month. History of 2 back surgeries in the past. Patient in wheelchair. She also has disequilibrium/loss of balance and near fall situation, guarded weight between the wall of the toilet on day of admission Patient had L4-5 left-sided laminotomy, discectomy for large L4-5 central disc herniation. Clinically patient feels much improvement in pain after surgery. Chronic normocytic anemia: Admission hemoglobin 11.1, MCV 86.4, baseline hemoglobin similar range, 06/04/23 Hgb 11, MCV 87.5. The differential diagnosis does include celiac disease, gastric antral vascular ectasia, Lon's erosions, neoplasia, peptic ulcer disease. She should undergo an upper and lower endoscopy to evaluate upper and lower GI tract. She was explained alternatives, risk, benefits include not withstanding bleeding, infection, sepsis, perforation, need for emergent urgent . She will have an ASA of 3. Charges/Coding Visit Charges Inpatient E&M: 98474 SNF Init L2
[2023-06-27] MEDS: Ciprofloxacin 500 MG Tablet PO (20:37)
[2023-06-27] MEDS: hydrOXYzine PAM 25 MG Capsule PO (20:39)
[2023-06-27] MEDS: Atorvastatin Calcium 10 MG Tablet PO (20:40)
[2023-06-28] MEDS: 0.9% Normal Saline (1000mL) 1,000 ML 75 ML IV ×2 (00:05→20:51)
[2023-06-28] MEDS: oxyCODONE 5 MG Tablet PO ×4 (01:25→20:58)
[2023-06-28] MEDS: tiZANidine HCl 2 MG Tablet PO (01:25)
[2023-06-28] MEDS: Menthol/Lanolin/Calamine/Znox 113 GM Tube 1 APPLIC TOPICAL ×3 (05:06→21:08)
[2023-06-28 06:51] LABS: Anion Gap 5 (5-15); BUN 25 mg/dL (7-18); Chloride 102 mmol/L (98-107); Creatinine, Serum 0.43 mg/dL (0.55-1.02); EST Glomerular Filtration Rate 154 mL/min (>60); Est Glom Filt Rate - Afr Amer 186 mL/min (>60); Estimated Creatinine Clearance 85.79 ml/min; Glucose 103 mg/dL (74-106); Potassium 4.1 mmol/L (3.5-5.1); Sodium Level 134 mmol/L (136-145)
[2023-06-28] MEDS: Losartan Potassium 50 MG Tablet PO ×2 (07:58→21:01)
[2023-06-28] MEDS: Ciprofloxacin 500 MG Tablet PO ×2 (07:59→20:59)
[2023-06-28 14:51] VITALS: BP 152/68; PULSE 102; RESP 20; TEMP 36.1; O2SAT 96
--- NOTE | 2023-06-28 18:21 | NURSING ---
Patient down to EGD/Colonoscopy at 1440.
--- NOTE | 2023-06-28 18:58 | NURSING ---
Returns from PACU at this time. Tolerated well. May resume normal diet and medications. Repeat endoscopy in 4 months recommended. Take Protonix 40mg PO BID for 6 months. Awaiting BX results and bleeding ulcers noted and cauterized.
[2023-06-28] MEDS: Gabapentin 600 MG Tablet PO (20:58)
[2023-06-28] MEDS: Juven (unflavored) Packet 1 PACKET PO (20:59)
[2023-06-28] MEDS: Acetaminophen 500 MG Tablet 1000 MG PO (20:59)
[2023-06-28] MEDS: hydrOXYzine PAM 25 MG Capsule PO (20:59)
[2023-06-28] MEDS: Atorvastatin Calcium 10 MG Tablet PO (21:01)
[2023-06-28] MEDS: Sertraline 100 MG Tablet PO (21:01)
[2023-06-28] MEDS: Pantoprazole Sodium 40 MG Tablet PO (21:03)
[2023-06-29] MEDS: oxyCODONE 5 MG Tablet PO ×4 (04:14→20:27)
[2023-06-29] MEDS: Acetaminophen 500 MG Tablet 1000 MG PO ×3 (04:14→22:49)
[2023-06-29] MEDS: Menthol/Lanolin/Calamine/Znox 113 GM Tube 1 APPLIC TOPICAL ×3 (04:16→22:40)
[2023-06-29 06:00] VITALS: BMI 40.7
[2023-06-29 08:43] LABS: Anion Gap 4 (5-15); BUN 15 mg/dL (7-18); BUN/Creat Ratio 29.6 RATIO (10-20); Calcium,Total 10.2 mg/dL (8.5-10.1); Chloride 104 mmol/L (98-107); Creatinine, Serum 0.51 mg/dL (0.55-1.02); EST Glomerular Filtration Rate 128 mL/min (>60); Est Glom Filt Rate - Afr Amer 155 mL/min (>60); Estimated Creatinine Clearance 85.79 ml/min; Glucose 123 mg/dL (74-106); Potassium 3.8 mmol/L (3.5-5.1); Sodium Level 134 mmol/L (136-145)
[2023-06-29] MEDS: Cholecalciferol (VIT D3) 25 MCG TABLET (1,000 UNITS) 50 MCG PO (09:24)
[2023-06-29] MEDS: Gabapentin 600 MG Tablet PO ×3 (09:24→18:48)
[2023-06-29] MEDS: Losartan Potassium 50 MG Tablet PO ×2 (09:25→22:45)
[2023-06-29] MEDS: Pantoprazole Sodium 40 MG Tablet PO ×2 (09:25→22:47)
[2023-06-29] MEDS: Polyethylene Glycol 3350 17 GM PACKET PO (09:25)
[2023-06-29] MEDS: Juven (unflavored) Packet 1 PACKET PO ×2 (09:25→18:49)
[2023-06-29] MEDS: Senna/Docusate Sodium 1 Tablet 2 TABLET PO ×2 (09:25→22:51)
[2023-06-29] MEDS: tiZANidine HCl 2 MG Tablet PO ×2 (09:26→18:48)
[2023-06-29 09:27] LABS: Absolute Lymphocyte Count 1.06 X10^3/uL (0.83-4.51); Basophil# 0.03 X10^3/uL; Basophil% 0.4 % (0-1); Eosinophil# 0.29 X10^3/uL; Eosinophils% 3.7 % (0-5); Hematocrit 32.1 % (37-47); Lymphocyte # 1.06 X10^3/ul (0.83-4.51); Lymphocyte % 13.6 % (19-41); Mean Corp Hgb Conc 31.2 g/dL (32-36); Mean Corpuscular Hgb 27.1 pg (27.0-32.0); Mean Platelet Vol. 9.2 fl (6.2-12.0); Monocyte# 0.36 X10^3/uL; Monocyte% 4.6 % (0-10); NRBC Flagged by Analyzer 0 % (0-5); Neutrophil # 6.04 X10^3/uL (2.7-7.7); Neutrophil % 77.2 % (47-70); Platelet Count 341 K/mm3 (150-450); RBC Distribution Width CV 13.5 % (11.6-14.6); Red Blood Count 3.69 M/mm3 (4.2-5.4); White Blood Count 7.8 K/mm3 (4.4-11.0)
[2023-06-29 09:36] VITALS: BP 141/68; PULSE 86; RESP 20; TEMP 36.6; O2SAT 95
--- NOTE | 2023-06-29 09:52 | NURSING ---
Patient requesting med for claustrophobia for MRI. Notified Dr. Karimi, order for Valium 10mg x1, give with dose of Vistaril d/t Ativan allergy.
[2023-06-29] MEDS: diazePAM 5 MG Tablet 10 MG PO (10:30)
[2023-06-29] MEDS: hydrOXYzine PAM 25 MG Capsule PO ×2 (10:31→22:50)
[2023-06-29 10:32] LABS: Erythrocyte Sedimentation Rate 45 mm/hr (0-30)
[2023-06-29] MEDS: 0.9% Normal Saline (1000mL) 1,000 ML 75 ML IV (10:42)
[2023-06-29] MEDS: Sertraline 100 MG Tablet PO (10:43)
--- NOTE | 2023-06-29 11:25 | NURSING ---
Addendum entered by Cristal Aviles 06/29/23 12:50: Pt returns to unit ~1205. Original Note: Staff assists pt off unit for MRI scan. Pt received PRN pain meds, Valium, Vistaril this morning. Is currently relaxed, no s/s of anxiety or pain at this time.
--- NOTE | 2023-06-29 15:28 | NURSING ---
Dr Karimi placed order for orth consult this morning. Dr. Cheatham in to assess pt this morning, states pt will need debridement of lumbar incision. Surgery tentatively scheduled for 141 tomorrow, dialysis patient care technician will call tomorrow to confirm. Pt is to be NPO after midnight.May take following meds w/ sips of H2O: PRN Oxy, PRN Tizanadine, tylenol, gabapentin, losartan, protonix, zoloft.
--- NOTE | 2023-06-29 16:31 | NURSING ---
Dr Curry called stating pt is to be NPO after midnight and planning for I & D at 2:45.
--- NOTE | 2023-06-29 17:01 | PN.GI_ITS ---
Subjective Subjective Patient underwent EGD and colonoscopy yesterday. She does not have any abdominal pain, cramping, nausea vomiting or diarrhea. EGD findings: The examined esophagus was normal. Many oozing linear gastric ulcers with pigmented material were found in the gastric antrum. The largest lesion was 4 mm in largest dimension. Coagulation for hemostasis using heater probe was successful. Estimated blood loss was minimal. Biopsies were taken with a cold forceps for histology. Verification of patient identification for the specimen was done. Estimated blood loss was minimal. Biopsies were taken with a cold forceps for Helicobacter pylori testing. Verification of patient identification for the specimen was done. Estimated blood loss was minimal. No gross lesions were noted in the first portion of the duodenum. Impression: - Normal esophagus. - Oozing gastric ulcers with pigmented material. Treated with a heater probe. Biopsied. - No gross lesions in the first portion of the duodenum. Recommendation: - [facility]. - Resume previous diet. - Continue present medications. - Await pathology results. - Repeat upper endoscopy in 4 months for surveillance. - Use Protonix (pantoprazole) 40 mg PO BID for 6 months. Colonoscopy findings: The perianal and digital rectal examinations were normal. A few small-mouthed diverticula were found in the recto-sigmoid colon and sigmoid colon. A single (solitary) ten mm ulcer was found in the cecum. Oozing was present. Stigmata of recent bleeding were present. Coagulation for hemostasis using heater probe was successful. Biopsies were taken with a cold forceps for histology. Verification of patient identification for the specimen was done. Estimated blood loss was minimal. Stool was found in the rectum, in the recto-sigmoid colon, in the transverse colon and in the cecum. A single (solitary) six mm ulcer was found at the ileocecal valve. No bleeding was present. Biopsies were taken with a cold forceps for histology. Verification of patient identification for the specimen was done. Estimated blood loss was minimal. Impression: - Preparation of the colon was fair. - Diverticulosis in the recto-sigmoid colon and in the sigmoid colon. - A single (solitary) ulcer in the cecum. Treated with a heater probe. Biopsied. - Stool in the rectum, in the recto-sigmoid colon, in the transverse colon and in the cecum. Recommendation: - Return patient to referring hospital for ongoing care. - Resume previous diet. - Continue present medications. - Await pathology results. - Repeat colonoscopy for surveillance based on pathology results. Objective Data Objective Data Vital Signs: Vital Signs Temp Pulse Resp BP Pulse Ox O2 Del Method O2 Flow Rate 98 F 86 20 H 141/68 H 95 Room Air 0 06/29/23 09:36 06/29/23 09:36 06/29/23 09:36 06/29/23 09:36 06/29/23 09:36 06/29/23 09:36 06/26/23 23:07 FiO2 21 06/26/23 23:07 Oxygen Flow Rate (L/min) 0 Oxygen Delivery Method Room Air Weight: 253 lb 6.4 oz Body Mass Index (BMI) 40.7 Intake & Output: Intake and Output for Last 24 Hours 06/27/23 06/28/23 06/29/23 23:59 23:59 23:59 Intake Total 1660 / 1660 2427.5 / 2427.5 1520 / 1520 Output Total 650 / 650 900 / 900 Balance 1660 / 1660 1777.5 / 1777.5 620 / 620 Lab / Micro Data 06/29/23 08:16 06/29/23 08:16 Labs: Laboratory Results - last 24 hr 06/29/23 08:16: WBC 7.8, RBC 3.69 L, Hgb 10.0 L, Hct 32.1 L, MCV 87.0, MCH 27.1, MCHC 31.2 L, RDW Std Deviation 43.0, RDW Coeff of Laila 13.5, Plt Count 341, MPV 9.2, Immature Gran % (Auto) 0.500, Neut % (Auto) 77.2 H, Lymph % (Auto) 13.6 L, [place] % (Auto) 4.6, Eos % (Auto) 3.7, Baso % (Auto) 0.4, Absolute Neuts (auto) 6.0, Absolute Lymphs (auto) 1.06, Nucleated RBC % 0, ESR 45 H, Sodium 134 L, Potassium 3.8, Chloride 104, Carbon Dioxide 26.0, Anion Gap 4 L, BUN 15, C reatinine 0.51 L, Estim Creat Clear Calc 85.79, Est GFR (MDRD) Af Amer 155, Est GFR (MDRD) Non-Af 128, BUN/Creatinine Ratio 29.6 H, Glucose 123 H, Calcium 10.2 H, C-React Prot Ext Range 115.00 H Micro: Microbiology 06/27/23 09:50 Urine Catheter - Catheter Urine Culture - Final Culture exhibits no growth. 06/26/23 20:27 Stool Stool Occult Blood (LUCINA) - Final Occult Blood Positive Physical Exam Narrative Seen and examined. Physical exam General: Alert, Oriented x3, Cooperative HEENT: Atraumatic, PERRLA, EOMI, Normocephalic Oral: Oral mucosa moist no Gingival or Mucosal Lesions/ Ulcerations Neck: Supple, No JVD, Negative Carotid Bruits Chest wall/Lungs: Air entry diminished in bilateral lung bases. No crepitation/rhonchi Cardiovascular: Irregular rhythm, Normal S1, Normal S2, systolic murmur Abdomen: Bowel Sounds Present, Soft, Non Tender, Non-Distended : No Atkins catheter. No dysuria. No renal angle tenderness. No suprapubic tenderness. Extremities: No edema, Capillary Refill Less than 3 Seconds Skin: Surgical dressing on the lumbar back is dry. Mild tenderness around the operative region. Musculoskeletal: Numbness tingling improved. Muscle strength 4+/5 at knees and hips likely due to pain and spasm Neurological: Cranial nerves II-XII grossly intact, DTR 2+/4. L4-5 L5-S1 radiculopathy pain has much improved. Psych/Mental Status: Flat affect Assessment & Plan Assessment/Plan (1) Cecal ulcer: (2) Gastric cardia ulcer: (3) Intractable back pain: PLAN: Plan The patient is a 67 y/o F came to ED with low back pain and right lower extremity pain for about 1 month. History of 2 back surgeries in the past. Patient in wheelchair. She also has disequilibrium/loss of balance and near fall situation, guarded weight between the wall of the toilet on day of admission Patient had L4-5 left-sided laminotomy, discectomy for large L4-5 central disc herniation. Clinically patient feels much improvement in pain after surgery. Chronic normocytic anemia: Admission hemoglobin 11.1, MCV 86.4, baseline hemoglobin similar range, 06/04/23 Hgb 11, MCV 87.5. The differential diagnosis does include celiac disease, gastric antral vascular ectasia, Lon's erosions, neoplasia, peptic ulcer disease. She should undergo an upper and lower endoscopy to evaluate upper and lower GI tract. She was explained alternatives, risk, benefits include not withstanding bleeding, infection, sepsis, perforation, need for emergent urgent . She will have an ASA of 3. 5/-I believe that her ulcers in her stomach are secondary to medicines. However the ulcer in her cecum I do not suspect that is from medicine. Differential diagnosis does include Crohn's disease, neoplasia, Behcet's syndrome. Is less likely that it is from medicine but it is possible. Await biopsies and check blood work for inflammatory bowel disease. Charges/Coding Visit Charges Inpatient E&M: 04997 [facility] Subs L3
--- NOTE | 2023-06-29 17:02 | CONS.ORTHO ---
HPI Consult Data Date of Consult: 06/29/23 HPI Narrative HPI Narrative: BARBARA KARIMI, is a 67 F who is in the TCU for rehab. She is 3 weeks status post L4-5 laminotomy discectomy. I was consulted for continued low back pain and wound issues. I saw her for her 2-week follow-up last week and she was found to have mild wound dehiscence for which I requested wound care consult as well as twice daily dressing changes. She is also completed 7 days of Keflex. She denies any fevers. She denies any other changes since last seen by me. She has been extremely sedentary and has not been able to reach her baseline of wheelchair mobility. Because of her body habitus she finds it difficult for changing positions repeatedly. She has known residual myelopathy from cervical and thoracic pathology treated with surgeries in the past. [facility] Medical History (Updated 06/29/23 @ 17:[address] Kwasi Cheatham MD) Lumbar radiculopathy, acute Morbid obesity IRIS treated with BiPAP Anxiety and depression History of alcohol abuse Thyroid nodule Former smoker COPD (chronic obstructive pulmonary disease) Atrial fibrillation Neuropathic pain Vitamin D deficiency Hyperlipidemia Herpes zoster Hypertension Osteoarthritis of knees, bilateral Pseudogout of right knee Thoracic spinal stenosis Home Medications ?Medication ?Instructions ?Recorded ?Last Taken ?Type atorvastatin 10 mg tablet 10 mg PO DAILY@2200 Cholesterol 12/08/20 06/08/23 22:15 History cholecalciferol (vitamin D3) 25 2,000 unit PO DAILY Supplement 12/08/20 06/01/23 History mcg (1,000 unit) tablet (Vitamin D3) diclofenac sodium 1 % topical gel 1 ea topical Q6H Pain 12/08/20 06/01/23 History (Voltaren Arthritis Pain) sertraline 100 mg tablet 100 mg PO DAILY Mood 12/08/20 06/09/23 10:10 History hydroxyzine pamoate 25 mg capsule 25 mg PO QHS anxiety 30 days #30 01/11/21 06/08/23 10:15 Rx caps amlodipine 10 mg tablet 10 mg PO DAILY heart 06/02/23 06/09/23 10:00 History ketoconazole 2 % topical cream 1 applic topical DAILY skin 06/02/23 06/01/23 History acetaminophen 500 mg tablet 1,000 mg (2 x 500 mg) PO Q8 severe 06/09/23 06/09/23 06:15 Rx pain #0 tabs gabapentin 600 mg tablet 600 mg PO TIDCM nerve pain #0 tabs 06/09/23 06/09/23 11:35 Rx oxycodone 5 mg tablet 2.5 - 5 mg (0.5 - 1 x 5 mg) PO Q4H 06/09/23 Unknown Rx PRN PRN Pain Score 6-10 #0 tabs sennosides 8.6 mg-docusate sodium 2 tab PO BID constipation #0 tabs 06/09/23 06/03/23 Rx 50 mg tablet (Stool Softener-Stimulant Laxative) tizanidine 2 mg tablet 2 mg PO Q8H PRN PRN muscle spasms 06/09/23 06/07/23 08:08 Rx #0 tabs losartan 50 mg tablet (Cozaar) 50 mg PO BID 06/29/23 Unknown History pantoprazole 40 mg tablet,delayed 40 mg PO BID 06/29/23 Unknown History release polyethylene glycol 3350 17 17 g PO DAILY 06/29/23 Unknown History gram/dose oral powder (Miralax) Allergy/AdvReac Type Severity Reaction Status Date / Time hydrocodone (From Vicodin) Allergy Anaphylaxis Verified 06/29/23 15:02 lorazepam (From Ativan) Allergy Hives Verified 06/29/23 15:02 neomycin Allergy Hives Verified 06/29/23 15:02 Family History Mother No problems noted. Father Leukemia Diabetes Surgical History (Updated 06/28/23 @ 16:02 by Verónica Elizabeth) History of lumbar laminectomy History of back surgery History of back surgery History of adenoidectomy Hx of tonsillectomy Social History (Updated 06/09/23 @ 19:[address] Darrel Karimi MD) household members: none Smoking Status: Former smoker how long ago did patient quit smoking: Quit 45 yrs prior, smoked 1 ppd starting age 19 until quit. alcohol intake: former details: Drank heavily prior, sober x 45 years. substance use type: does not use Vital Signs Vital Signs Vital Signs: 06/29/23 09:36 Temperature 98 F Temperature Source Temporal Pulse Rate 86 Respiratory Rate 20 H Blood Pressure 141/68 H Blood Pressure Mean 92 Blood Pressure Source Monitor Blood Pressure Position Semi-Fowlers Blood Pressure Location Left Arm Pulse Ox 95 Oxygen Delivery Method Room Air Weight Weight: 253 lb 6.4 oz Body Mass Index (BMI) 40.7 Physical Exam Narrative I evaluated the dressing. She says that the dressing was not changed for the last 2 days. This shows greenish soakage of gauze and dressing. No purulent material was expressible. Mild dehiscence and unhealthy granulation tissue noticed. Const alert and oriented x3 Lab / Micro Data 06/29/23 08:16 06/29/23 08:16 Labs: Laboratory Results - last 24 hr 06/29/23 08:16: WBC 7.8, RBC 3.69 L, Hgb 10.0 L, Hct 32.1 L, MCV 87.0, MCH 27.1, MCHC 31.2 L, RDW Std Deviation 43.0, RDW Coeff of Laila 13.5, Plt Count 341, MPV 9.2, Immature Gran % (Auto) 0.500, Neut % (Auto) 77.2 H, Lymph % (Auto) 13.6 L, [place] % (Auto) 4.6, Eos % (Auto) 3.7, Baso % (Auto) 0.4, Absolute Neuts (auto) 6.0, Absolute Lymphs (auto) 1.06, Nucleated RBC % 0, ESR 45 H, Sodium 134 L, Potassium 3.8, Chloride 104, Carbon Dioxide 26.0, Anion Gap 4 L, BUN 15, Creatinine 0.51 L, Estim Creat Clear Calc 85.79, Est GFR (MDRD) Af Amer 155, Est GFR (MDRD) Non-Af 128, BUN/Creatinine Ratio 29.6 H, Glucose 123 H, Calcium 10.2 H, C-React Prot Ext Range 115.00 H Micro: Microbiology 06/27/23 09:50 Urine Catheter - Catheter Urine Culture - Final Culture exhibits no growth. Assessment & Plan Assessment/Plan (1) Wound dehiscence: PLAN: Plan Patient is 3 weeks status post L4-5 laminotomy discectomy. When she did have good initial relief of her radicular symptoms she continues to have axial low back pain and also has baseline lower extremity weakness for which she has been wheelchair-bound for the last 2 years. She has been recovering in the TCU after surgery and has not been able to be compliant with twice daily dressing changes with nursing. She has developed wound dehiscence which seems superficial without any palpable collections. I reviewed the MRI of the lumbar spine done today. These show postsurgical changes of L4-5 laminotomy. Although not discussed in detail in the MRI report, there is a superficial small collection to superficial to the fascia. I recommend surgical I&D with possible wound VAC placement. I will schedule her for this procedure tomorrow afternoon. Patient will be n.p.o. tonight after midnight.
[2023-06-29 20:15] VITALS: O2SAT 92
[2023-06-29] MEDS: 0.9% Saline Lock 10 ML Syringe IV (20:19)
[2023-06-29 22:35] VITALS: BP 153/63; PULSE 88
[2023-06-29] MEDS: Atorvastatin Calcium 10 MG Tablet PO (22:45)
[2023-06-30] MEDS: oxyCODONE 5 MG Tablet PO ×4 (00:22→22:14)
[2023-06-30 01:10] VITALS: BP 149/74; PULSE 92; RESP 18; TEMP 36.6; O2SAT 94
[2023-06-30] MEDS: tiZANidine HCl 2 MG Tablet PO ×2 (02:40→22:15)
[2023-06-30] MEDS: 0.9% Normal Saline (1000mL) 1,000 ML 75 ML IV ×2 (02:55→21:53)
[2023-06-30] MEDS: Menthol/Lanolin/Calamine/Znox 113 GM Tube 1 APPLIC TOPICAL ×2 (05:23→22:08)
[2023-06-30] MEDS: Acetaminophen 500 MG Tablet 1000 MG PO ×3 (05:25→21:54)
[2023-06-30 06:03] LABS: Absolute Lymphocyte Count 1.74 X10^3/uL (0.83-4.51); Absolute Neutrophil Count 4.9 X10^3/uL (2.0-7.7); Basophil# 0.04 X10^3/uL; Basophil% 0.5 % (0-1); Eosinophil# 0.34 X10^3/uL; Eosinophils% 4.5 % (0-5); Hematocrit 29.3 % (37-47); Hemoglobin 9.3 g/dL (12.0-15.0); Lymphocyte # 1.74 X10^3/ul (0.83-4.51); Lymphocyte % 22.8 % (19-41); Mean Corp Hgb Conc 31.7 g/dL (32-36); Mean Corpuscular Hgb 27.3 pg (27.0-32.0); Mean Corpuscular Volume 85.9 fL (81-99); Mean Platelet Vol. 8.5 fl (6.2-12.0); Monocyte% 7.9 % (0-10); NRBC Flagged by Analyzer 0 % (0-5); Neutrophil # 4.88 X10^3/uL (2.7-7.7); Neutrophil % 63.9 % (47-70); Platelet Count 320 K/mm3 (150-450); RBC Distribution Width CV 13.3 % (11.6-14.6); RBC Distribution Width SD 41.9 fl (35.1-43.9); Red Blood Count 3.41 M/mm3 (4.2-5.4); White Blood Count 7.6 K/mm3 (4.4-11.0)
[2023-06-30 06:23] LABS: Anion Gap 4 (5-15); BUN 15 mg/dL (7-18); BUN/Creat Ratio 34.6 RATIO (10-20); Calcium,Total 9.9 mg/dL (8.5-10.1); Chloride 104 mmol/L (98-107); Creatinine, Serum 0.43 mg/dL (0.55-1.02); EST Glomerular Filtration Rate 153 mL/min (>60); Est Glom Filt Rate - Afr Amer 185 mL/min (>60); Estimated Creatinine Clearance 85.45 ml/min; Glucose 97 mg/dL (74-106); Sodium Level 136 mmol/L (136-145)
[2023-06-30] MEDS: Losartan Potassium 50 MG Tablet PO ×2 (08:36→21:56)
[2023-06-30] MEDS: Sertraline 100 MG Tablet PO (08:36)
[2023-06-30] MEDS: Pantoprazole Sodium 40 MG Tablet PO ×2 (08:36→21:54)
[2023-06-30] MEDS: Gabapentin 600 MG Tablet PO ×3 (08:40→18:42)
[2023-06-30 08:44] VITALS: BP 153/79; PULSE 89
--- NOTE | 2023-06-30 09:45 | WOUNDNOTE ---
Pt scheduled for surgery later today with Dr Cheatham.
[2023-06-30 10:55] VITALS: PULSE 95; RESP 18; O2SAT 92
--- NOTE | 2023-06-30 11:28 | NURSING ---
THIS NURSE STANDING IN PT DOOR WAY, PT WATCHING TV AND TALKING ON PHONE CALMLY. PT HANGS UP AND THIS NURSE ENTERS,PT STARTS CRYING. ASKED PT WHAT WAS WRONG,PT STATED I AM IN SO MUCH PAIN. ASKED PT NUMBER AND HOW LONG SHE HAS BEEN HAVING PAIN. PT STATED A WHILE NOW AND ITS A 8. ASKED PT IF SHE CALLED FOR PAIN MEDS. PT STATED NO. GOT PT A PRN OXY AND REPOSITION PT TO LEFT SIDE,KPAD TO HIP,HEELS UP AND RT LEG ELEVATED. PT STATED I CANT STAY LIKE THIS LONG. THIS NURSE STATED TO PT THEN WE CAN REPOSITION TO THE LEFT SIDE,PT STATED I CANT LAY LIKE THAT IT HURTS TO MUCH. THIS NURSE STATED TO PT WE WILL REPOSITION YOU TO WERE YOU ARE COMFORTABLE BUT YOU HAVE TO GET OFF YOUR BUTT AND HEELS SO YOU DONT GET ANY PRESSURE SORES. PT STATED SHE UNDER STOOD AND SAID BUT MY SCREWS ARE COMING OUT FROM MY BACK SURGERY. THIS NURSE LOOKED AT REPORT AND WENT OVER WITH PT. PT STATED O I THOUGHT THEY WERE FALLING OUT. STATED TO PT WOULD HAVE LEFT YOU AND US KNOW IF THERE WAS A PROBLEM AFTER THE MRI WAS DONE. PT STOPPED CRYING. RN AWARE
--- NOTE | 2023-06-30 13:26 | NURSING ---
PT LEAVING FLOOR AT THIS TIME (2504) FOR PROCEDURE WITH .
[2023-06-30] MEDS: Juven (unflavored) Packet 1 PACKET PO (18:32)
[2023-06-30] MEDS: amLODIPine 10 MG Tablet PO (18:35)
[2023-06-30 18:47] VITALS: BP 158/68; PULSE 82; RESP 18; TEMP 37.2; O2SAT 90
--- NOTE | 2023-06-30 19:31 | NURSING ---
PT RETURNED TO FLOOR AT 1814 WITH A WOUND VAC AFTER A I/D WITH . VITALS DONE,PT ALERT/ORIENTED X3. SET UP FOR SUPPER AND MEDS GIVEN. SEE NEW ORDERS FROM .
[2023-06-30] MEDS: Atorvastatin Calcium 10 MG Tablet PO (21:54)
[2023-06-30] MEDS: Cefazolin 3 GM in 0.9% Normal Saline (100mL Bag) 100 ML IV (21:54)
[2023-06-30] MEDS: cloNIDine HCl 0.1 MG Tablet PO (21:54)
[2023-06-30] MEDS: hydrOXYzine PAM 25 MG Capsule PO (21:54)
[2023-06-30] MEDS: Senna/Docusate Sodium 1 Tablet 2 TABLET PO (21:55)
[2023-07-01] MEDS: Acetaminophen 500 MG Tablet 1000 MG PO ×3 (05:03→22:03)
[2023-07-01] MEDS: oxyCODONE 5 MG Tablet PO ×3 (05:03→18:30)
[2023-07-01] MEDS: Cefazolin 3 GM in 0.9% Normal Saline (100mL Bag) 100 ML IV (05:57)
[2023-07-01] MEDS: Menthol/Lanolin/Calamine/Znox 113 GM Tube 1 APPLIC TOPICAL ×3 (05:58→22:10)
[2023-07-01 06:00] VITALS: BMI 41.1
[2023-07-01 08:37] VITALS: BP 115/50; PULSE 76; RESP 16; O2SAT 93
[2023-07-01] MEDS: Gabapentin 600 MG Tablet PO ×3 (08:41→18:30)
[2023-07-01] MEDS: Senna/Docusate Sodium 1 Tablet 2 TABLET PO ×2 (08:41→22:03)
[2023-07-01] MEDS: tiZANidine HCl 2 MG Tablet PO ×2 (08:41→22:09)
[2023-07-01] MEDS: Losartan Potassium 50 MG Tablet PO ×2 (08:42→22:02)
[2023-07-01] MEDS: Sertraline 100 MG Tablet PO (08:42)
[2023-07-01] MEDS: Pantoprazole Sodium 40 MG Tablet PO ×2 (08:42→22:03)
[2023-07-01] MEDS: Cholecalciferol (VIT D3) 25 MCG TABLET (1,000 UNITS) 50 MCG PO (08:42)
[2023-07-01] MEDS: cloNIDine HCl 0.1 MG Tablet PO ×2 (08:43→22:02)
[2023-07-01] MEDS: Polyethylene Glycol 3350 17 GM PACKET PO ×2 (08:43→22:03)
[2023-07-01] MEDS: amLODIPine 10 MG Tablet PO (08:44)
[2023-07-01] MEDS: Juven (unflavored) Packet 1 PACKET PO ×2 (08:49→18:33)
--- NOTE | 2023-07-01 12:30 | PCM.PN.ORT ---
Subjective Subjective Postop day 1 status post lumbar spine I&D. Pain well-controlled. Denies any dizziness. Feels burning sensation in the lower back. Objective Data Objective Data Vital Signs: Vital Signs Temp Pulse Resp BP Pulse Ox O2 Del Method O2 Flow Rate 98.9 F 76 16 115/50 L 93 Room Air 0 06/30/23 18:47 07/01/23 08:37 07/01/23 08:37 07/01/23 08:37 07/01/23 08:37 07/01/23 08:37 06/26/23 23:07 FiO2 21 06/26/23 23:07 Oxygen Flow Rate (L/min) 0 Oxygen Delivery Method Room Air Weight: 253 lb 8 oz Body Mass Index (BMI) 40.8 Intake & Output: Intake and Output for Last 24 Hours 06/29/23 06/30/23 07/01/23 23:59 23:59 23:59 Intake Total 1760 / 1760 2540 / 2540 475 / 475 Output Total 1500 / 1500 550 / 550 1200 / 1200 Balance 260 / 260 1989 / 1989 -725 / -725 Lab / Micro Data 06/30/23 05:35 06/30/23 05:35 Micro: Microbiology 06/27/23 09:50 Urine Catheter - Catheter Urine Culture - Final Culture exhibits no growth. 06/26/23 20:27 Stool Stool Occult Blood (LUCINA) - Final Occult Blood Positive Physical Exam Narrative Dressing?CDI wound VAC present. Neurologic exam is baseline. Const alert and oriented x3 Assessment & Plan Assessment/Plan (1) Wound dehiscence: PLAN: Plan Postop day 1 status post I&D for lumbar surgical site infection. Superficial and deep cultures taken. Wound VAC maintaining suction. Will need continued wound care consult. Ordered CBC and chemistry panel today. Initial results suggest possible Pseudomonas. Stopped Ancef. Started vancomycin and cefepime on empiric basis. ID consult placed. Will likely change antibiotics per culture results. Will continue to need additional rehab with PT OT. Encourage frequent position changes and sitting up in wheelchair when able. Will continue to follow while in TCU.
[2023-07-01 12:45] LABS: Absolute Lymphocyte Count 1.15 X10^3/uL (0.83-4.51); Basophil# 0.04 X10^3/uL; Basophil% 0.5 % (0-1); Eosinophil# 0.27 X10^3/uL; Eosinophils% 3.4 % (0-5); Hematocrit 27.2 % (37-47); Hemoglobin 8.4 g/dL (12.0-15.0); Lymphocyte # 1.15 X10^3/ul (0.83-4.51); Lymphocyte % 14.5 % (19-41); Mean Corp Hgb Conc 30.9 g/dL (32-36); Mean Corpuscular Hgb 26.8 pg (27.0-32.0); Mean Corpuscular Volume 86.6 fL (81-99); Mean Platelet Vol. 8.7 fl (6.2-12.0); Monocyte# 0.41 X10^3/uL; Monocyte% 5.2 % (0-10); NRBC Flagged by Analyzer 0 % (0-5); Neutrophil # 6.01 X10^3/uL (2.7-7.7); Platelet Count 336 K/mm3 (150-450); RBC Distribution Width CV 13.3 % (11.6-14.6); RBC Distribution Width SD 41.8 fl (35.1-43.9); Red Blood Count 3.14 M/mm3 (4.2-5.4); White Blood Count 7.9 K/mm3 (4.4-11.0)
[2023-07-01 12:56] LABS: Anion Gap 4 (5-15); BUN 15 mg/dL (7-18); BUN/Creat Ratio 28.8 RATIO (10-20); Calcium,Total 9.5 mg/dL (8.5-10.1); Chloride 102 mmol/L (98-107); Creatinine, Serum 0.52 mg/dL (0.55-1.02); EST Glomerular Filtration Rate 124 mL/min (>60); Est Glom Filt Rate - Afr Amer 150 mL/min (>60); Estimated Creatinine Clearance 85.47 ml/min; Glucose 144 mg/dL (74-106); Potassium 4.2 mmol/L (3.5-5.1); Sodium Level 137 mmol/L (136-145)
[2023-07-01] MEDS: 0.9% Normal Saline (1000mL) 1,000 ML 75 ML IV (12:57)
[2023-07-01] MEDS: Vancomycin HCl 2,000 MG in 0.9% Normal Saline (500mL Bag) 500 ML 250 MG IV (13:13)
--- NOTE | 2023-07-01 14:21 | PCM.PN.DRR ---
TCU RX Drug Regimen Review Subjective/Objective Subjective/Objective: Subjective: [] Objective: Allergies hydrocodone (From Vicodin) Allergy (Verified 06/29/23 15:02) Anaphylaxis lorazepam (From Ativan) Allergy (Verified 06/29/23 15:02) Hives neomycin Allergy (Verified 06/29/23 15:02) Hives Current Medications Generic Name Dose Route Start Last Admin Trade Name Freq PRN Reason Stop Dose Admin Acetaminophen 1,000 mg 06/09/23 22:00 07/01/23 12:59 Acetaminophen 500 Mg Tablet PO 1,000 mg Q8 SALVADOR Administration Amlodipine Besylate 10 mg 06/10/23 10:00 07/01/23 08:44 Amlodipine 10 Mg Tablet PO 10 mg DAILY SALVADOR Administration Protocol Atorvastatin Calcium 10 mg 06/09/23 22:00 06/30/23 21:54 Atorvastatin Calcium 10 Mg Tablet PO 10 mg DAILY@2200 SALVADOR Administration Bisacodyl 10 mg 06/09/23 19:22 06/26/23 18:49 Bisacodyl 10 Mg Suppository RC 10 mg DAILY PRN Administration Constipation Calamine/Phenol 1 applic 06/11/23 14:00 07/01/23 13:04 Menthol/Lanolin/Calamine/Znox 113 Gm Tube TOPICAL 1 applic TID SALVADOR Administration Protocol Cholecalciferol 50 mcg 06/10/23 10:00 07/01/23 08:42 Cholecalciferol (Vit D3) 25 Mcg Tablet (1,000 Units) PO 50 mcg DAILY SALVADOR Administration Clonidine 0.1 mg 06/09/23 22:00 07/01/23 08:43 Clonidine Hcl 0.1 Mg Tablet PO 0.1 mg BID SALVADOR Administration Protocol Gabapentin 600 mg 06/09/23 17:45 07/01/23 12:58 Gabapentin 600 Mg Tablet PO 600 mg TIDCM SALVADOR Administration Hydroxyzine Pamoate 25 mg 06/09/23 22:00 06/30/23 21:54 Hydroxyzine Kaity 25 Mg Capsule PO 25 mg QHS SALVADOR Administration Sodium Chloride 250 mls @ 15 mls/hr 06/23/23 14:20 IV .[id number] PRN Additional IVPB Infusion Sodium Chloride 250 mls @ 15 mls/hr 06/23/23 14:20 06/23/23 16:50 IV 0 mls/hr .[id number] PRN Infusion Saline Flush Sodium Chloride 1,000 mls @ 75 mls/hr 06/26/23 07:40 07/01/23 13:16 IV 0 mls/hr .[id number] SALVADOR Infusion Cefepime HCl 2 gm/ Sodium 100 mls @ 200 mls/hr 07/01/23 14:00 Chloride IV Q8 SALVADOR Vancomycin IV-PHARMACY TO DOSE 500 mls @ 250 mls/hr 07/01/23 12:01 1 each/ Sodium Chloride IV PRN PRN RX TO DOSE Protocol Vancomycin HCl 2,000 mg/ 540 mls @ 250 mls/hr 07/01/23 12:30 07/01/23 13:13 Sodium Chloride IV 07/01/23 14:39 250 mls/hr X1 ONE Administration Vancomycin HCl 2,000 mg/ 540 mls @ 250 mls/hr 07/02/23 01:00 Sodium Chloride IV Q12H SALVADOR L-Arginine/L-Glutamine/Calcium HMB 1 packet 06/14/23 17:00 07/01/23 08:49 Terrance (Unflavored) Packet PO 1 packet BIDCM SALVADOR Administration Losartan Potassium 50 mg 06/10/23 10:00 07/01/23 08:42 Losartan Potassium 50 Mg Tablet PO 50 mg DAILY SALVADOR Administration Protocol Losartan Potassium 50 mg 06/14/23 22:00 06/30/23 21:56 Losartan Potassium 50 Mg Tablet PO 50 mg QHS SALVADOR Administration Protocol Oxycodone HCl 5 mg 06/27/23 07:34 07/01/23 12:58 Oxycodone 5 Mg Tablet PO 5 mg Q4H PRN PRN Administration Pain Score 6-10 Pantoprazole Sodium 40 mg 06/28/23 22:00 07/01/23 08:42 Pantoprazole Sodium 40 Mg Tablet PO 12/29/23 19:02 40 mg BID SALVADOR Administration Polyethylene Glycol 17 gm 06/27/23 10:00 07/01/23 08:43 Polyethylene Glycol 3350 17 Gm Packet PO 17 gm BID SALVADOR Administration Senna/Docusate Sodium 2 tablet 06/09/23 22:00 07/01/23 08:41 Senna/Docusate Sodium 1 Tablet PO 2 tablet BID SALVADOR Administration Sertraline HCl 100 mg 06/10/23 10:00 07/01/23 08:42 Sertraline 100 Mg Tablet PO 100 mg DAILY SALVADOR Administration Sodium Chloride 10 - 40 ml 06/23/23 14:20 06/29/23 20:19 0.9% Saline Lock 10 Ml Syringe IV 10 ml UD PRN Administration SALINE FLUSH Tizanidine HCl 2 mg 06/09/23 17:19 07/01/23 08:41 Tizanidine Hcl 2 Mg Tablet PO 2 mg Q8H PRN PRN Administration muscle spasms Problem List Wound dehiscence (Acute) Gastric cardia ulcer (Acute) Cecal ulcer (Acute) Muscle spasm of back (Acute) Essential (primary) hypertension (Acute) Pseudogout (Acute) Status post lumbar discectomy (Acute) Intractable back pain (Acute) Depression (Acute) Debility (Acute) Morbid obesity (Acute) Neuropathic pain (Acute) Vitamin D deficiency (Acute) Hyperlipidemia (Acute) Vital Signs Temp Pulse Resp BP Pulse Ox O2 Del Method O2 Flow Rate 98.9 F 76 16 115/50 L 93 Room Air 0 06/30/23 18:47 07/01/23 08:37 07/01/23 08:37 07/01/23 08:37 07/01/23 08:37 07/01/23 08:37 06/26/23 23:07 FiO2 21 06/26/23 23:07 Oxygen Flow Rate (L/min) 0 Oxygen Delivery Method Room Air Weight: 114.986 kg Body Mass Index (BMI) 40.8 Sodium 137 mmol/L (136-145) 07/01/23 12:30 Potassium 4.2 mmol/L (3.5-5.1) 07/01/23 12:30 Chloride 102 mmol/L (98-107) 07/01/23 12:30 Carbon Dioxide 31.0 mmol/L (21.0-32.0) 07/01/23 12:30 Anion Gap 4 (5-15) L 07/01/23 12:30 BUN 15 mg/dL (7-18) 07/01/23 12:30 Creatinine 0.52 mg/dL (0.55-1.02) L 07/01/23 12:30 Est GFR (MDRD) Af Amer 150 mL/min (>60) 07/01/23 12:30 Est GFR (MDRD) Non-Af 124 mL/min (>60) 07/01/23 12:30 BUN/Creatinine Ratio 28.8 RATIO (10-20) H 07/01/23 12:30 Glucose 144 mg/dL (74-106) H 07/01/23 12:30 Assessment/Plan: Assessment/Plan for indications treated with psychotropic medications: Medical chart and medication regimen reviewed. The following medication irregularities or issues were identified:
--- NOTE | 2023-07-01 14:23 | PCM.RX.CS ---
Consult Antibiotic Management Pharmacy has been consulted to manage selected antibiotic: Vancomycin Type of Intervention Type of Consult: New start Labs Labs: Sodium 137 mmol/L (136-145) 07/01/23 12:30 Potassium 4.2 mmol/L (3.5-5.1) 07/01/23 12:30 Chloride 102 mmol/L (98-107) 07/01/23 12:30 Carbon Dioxide 31.0 mmol/L (21.0-32.0) 07/01/23 12:30 Anion Gap 4 (5-15) L 07/01/23 12:30 BUN 15 mg/dL (7-18) 07/01/23 12:30 Creatinine 0.52 mg/dL (0.55-1.02) L 07/01/23 12:30 Est GFR (MDRD) Af Amer 150 mL/min (>60) 07/01/23 12:30 Est GFR (MDRD) Non-Af 124 mL/min (>60) 07/01/23 12:30 BUN/Creatinine Ratio 28.8 RATIO (10-20) H 07/01/23 12:30 Glucose 144 mg/dL (74-106) H 07/01/23 12:30 Microbiology Microbiology: Microbiology 06/27/23 09:50 Urine Catheter - Catheter Urine Culture - Final Culture exhibits no growth. 06/26/23 20:27 Stool Stool Occult Blood (LUCINA) - Final Occult Blood Positive Pharmacy Plan for Drug Dosing Pharmacy Plan for Drug Dosing: NEW START IV VANCOMYCIN Consulting Physician: SOPHIA Indication: post op wound infection Goal Trough: 15-20 mg/dL SrCr: 0.52 mg/dL (06/30) CrCl: 85 mL/min Comments: loading dose of 2000mg given 06/30 @ 1313 Vancomycin Dose: Will start 2000mg Q12 (07/01 @ 0100) and get a trough prior to 4th total dose per policy. Pending Level: 07/03/23 @ 0030 Pharmacy Service will continue to monitor and adjust dosing as required.
[2023-07-01] MEDS: Cefepime HCl 2 GM in 0.9% Normal Saline (100mL MB+) 100 ML IV ×2 (15:47→22:09)
[2023-07-01 16:00] VITALS: TEMP 36.3
[2023-07-01] MEDS: hydrOXYzine PAM 25 MG Capsule PO (22:03)
[2023-07-01] MEDS: Atorvastatin Calcium 10 MG Tablet PO (22:03)
[2023-07-01 22:10] VITALS: BP 114/58; PULSE 80; PULSE 82; O2SAT 97
[2023-07-02] MEDS: Vancomycin HCl 2,000 MG in 0.9% Normal Saline (500mL Bag) 500 ML 250 MG IV ×2 (01:16→13:01)
[2023-07-02] MEDS: oxyCODONE 5 MG Tablet PO ×4 (04:56→23:01)
[2023-07-02 06:00] VITALS: BMI 42.0
[2023-07-02] MEDS: Cefepime HCl 2 GM in 0.9% Normal Saline (100mL MB+) 100 ML IV ×3 (06:16→22:00)
[2023-07-02] MEDS: Menthol/Lanolin/Calamine/Znox 113 GM Tube 1 APPLIC TOPICAL ×3 (06:16→23:08)
[2023-07-02] MEDS: Acetaminophen 500 MG Tablet 1000 MG PO ×3 (06:16→21:59)
[2023-07-02] MEDS: tiZANidine HCl 2 MG Tablet PO ×2 (06:49→21:58)
[2023-07-02] MEDS: Gabapentin 600 MG Tablet PO ×3 (08:13→17:44)
[2023-07-02] MEDS: 0.9% Normal Saline (1000mL) 1,000 ML 75 ML IV (08:13)
[2023-07-02] MEDS: Cholecalciferol (VIT D3) 25 MCG TABLET (1,000 UNITS) 50 MCG PO (08:14)
[2023-07-02] MEDS: Pantoprazole Sodium 40 MG Tablet PO ×2 (08:14→22:00)
[2023-07-02] MEDS: amLODIPine 10 MG Tablet PO (08:14)
[2023-07-02] MEDS: Juven (unflavored) Packet 1 PACKET PO ×2 (08:14→17:45)
[2023-07-02] MEDS: Polyethylene Glycol 3350 17 GM PACKET PO ×2 (08:14→22:00)
[2023-07-02] MEDS: Senna/Docusate Sodium 1 Tablet 2 TABLET PO ×2 (08:14→22:00)
[2023-07-02] MEDS: cloNIDine HCl 0.1 MG Tablet PO ×2 (08:15→22:00)
[2023-07-02] MEDS: Sertraline 100 MG Tablet PO (08:15)
[2023-07-02] MEDS: Losartan Potassium 50 MG Tablet PO ×2 (08:15→22:00)
[2023-07-02 09:54] LABS: Hematocrit 26.2 % (37-47); Hemoglobin 8.2 g/dL (12.0-15.0)
[2023-07-02 15:36] VITALS: BP 112/56; PULSE 69; RESP 16; TEMP 36.6; O2SAT 91
[2023-07-02] MEDS: hydrOXYzine PAM 25 MG Capsule PO (21:59)
[2023-07-02] MEDS: Atorvastatin Calcium 10 MG Tablet PO (22:00)
[2023-07-02] MEDS: 0.9% Saline Lock 10 ML Syringe IV (22:05)
[2023-07-02 22:15] VITALS: BP 154/76; PULSE 98
[2023-07-03 01:31] LABS: Vancomycin, Trough Level 19.2 ug/mL (5.0-15.0)
[2023-07-03] MEDS: Vancomycin HCl 2,000 MG in 0.9% Normal Saline (500mL Bag) 500 ML 250 MG IV (01:55)
[2023-07-03] MEDS: Vancomycin Trough/Random Due 1 LAB MC (01:55)
--- NOTE | 2023-07-03 03:56 | PCM.RX.CS ---
Consult Antibiotic Management Pharmacy has been consulted to manage selected antibiotic: Vancomycin Type of Intervention Type of Consult: Follow-up Labs Labs: Sodium 137 mmol/L (136-145) 07/01/23 12:30 Potassium 4.2 mmol/L (3.5-5.1) 07/01/23 12:30 Chloride 102 mmol/L (98-107) 07/01/23 12:30 Carbon Dioxide 31.0 mmol/L (21.0-32.0) 07/01/23 12:30 Anion Gap 4 (5-15) L 07/01/23 12:30 BUN 15 mg/dL (7-18) 07/01/23 12:30 Creatinine 0.52 mg/dL (0.55-1.02) L 07/01/23 12:30 Est GFR (MDRD) Af Amer 150 mL/min (>60) 07/01/23 12:30 Est GFR (MDRD) Non-Af 124 mL/min (>60) 07/01/23 12:30 BUN/Creatinine Ratio 28.8 RATIO (10-20) H 07/01/23 12:30 Glucose 144 mg/dL (74-106) H 07/01/23 12:30 Vancomycin Trough 19.2 ug/mL (5.0-15.0) H 07/03/23 00:30 Microbiology Microbiology: Microbiology 06/27/23 09:50 Urine Catheter - Catheter Urine Culture - Final Culture exhibits no growth. 06/26/23 20:27 Stool Stool Occult Blood (LUCINA) - Final Occult Blood Positive Goal Trough Goal Trough: 15-20 mcg/mL Pharmacy Plan for Drug Dosing Pharmacy Plan for Drug Dosing: Pharmacy Service will continue to monitor and adjust dosing as required. TROUGH 19.2 @ 11.5 HOURS. NO CHANGES, FOLLOW UP TROUGH IN 2 DAYS Follow-Up Labs Follow-Up Labs: Trough: Vancomycin Date/Time Labs Ordered Labs to be done on [date and time ordered]: 07/04 @ 0030
[2023-07-03] MEDS: 0.9% Normal Saline (1000mL) 1,000 ML 75 ML IV ×2 (04:26→22:28)
[2023-07-03] MEDS: Acetaminophen 500 MG Tablet 1000 MG PO ×3 (05:52→21:44)
[2023-07-03] MEDS: oxyCODONE 5 MG Tablet PO ×3 (05:52→19:55)
[2023-07-03] MEDS: Cefepime HCl 2 GM in 0.9% Normal Saline (100mL MB+) 100 ML IV (05:54)
[2023-07-03] MEDS: Menthol/Lanolin/Calamine/Znox 113 GM Tube 1 APPLIC TOPICAL ×3 (05:54→21:41)
[2023-07-03 06:00] VITALS: BMI 42.0
--- NOTE | 2023-07-03 07:59 | PCA ---
Sonia, got washed up on Saturday 07/01 & we asked her several times if she needed to go to the bathroom. Sonia said not, so the staff got her up & washed her hair. Less than 30 minutes later she said she had to use the bedpan. Staff hurried up & got her back in bed & was going to have her roll over & Sonia said, oh i don't have to go. This happened on Monday as well after Therapy worked with her. She told us that she sat up for over 2 hours, but sitting up in the bed is not the same as sitting up in a w/c.
[2023-07-03] MEDS: Senna/Docusate Sodium 1 Tablet 2 TABLET PO ×2 (08:46→21:44)
[2023-07-03] MEDS: Polyethylene Glycol 3350 17 GM PACKET PO ×2 (08:46→21:47)
[2023-07-03] MEDS: Juven (unflavored) Packet 1 PACKET PO ×2 (08:46→16:59)
[2023-07-03] MEDS: Cholecalciferol (VIT D3) 25 MCG TABLET (1,000 UNITS) 50 MCG PO (08:47)
[2023-07-03] MEDS: Pantoprazole Sodium 40 MG Tablet PO ×2 (08:47→21:49)
[2023-07-03] MEDS: amLODIPine 10 MG Tablet PO (08:47)
[2023-07-03] MEDS: Losartan Potassium 50 MG Tablet PO ×2 (08:47→21:46)
[2023-07-03] MEDS: cloNIDine HCl 0.1 MG Tablet PO ×2 (08:48→21:45)
[2023-07-03] MEDS: Sertraline 50 MG Tablet 150 MG PO (08:53)
[2023-07-03] MEDS: Gabapentin 600 MG Tablet PO ×3 (08:53→16:59)
[2023-07-03 09:01] VITALS: BP 153/63; PULSE 83
--- NOTE | 2023-07-03 09:02 | NURSING ---
IN TO PT ROOM AND PT STATED I HAD A HORRIBLE WEEKEND. ASKED PT WANT HAPPENED,PT STATED SO MUCH PAIN. ASKED PT IF SHE WAS REPOSITIONED AND GOT OUT OF BED. PT STATED I SAT STRAIGHT UP IN BED FOR 3 HOURS. THIS NURSE EDUCATED PT ON GETTING UP OUT OF BED AND INTO WHEEL CHAIR. SITTING STRAIGHT UP IN BED IS NOT THE SAME SITTING UP IN WHEEL CHAIR AND MADE IT CLEAR HE WANTED YOU OUT OF BED. PT STATED OH I THOUGHT IT WAS THE SAME. ENCOURAGED PT TO GET UP TODAY.
--- NOTE | 2023-07-03 10:03 | NURSING ---
NOTIFIED FOR CONSULT WITH PT PER ORDER.
--- NOTE | 2023-07-03 10:07 | WOUNDNOTE ---
wound photo: mid lower back
--- NOTE | 2023-07-03 12:24 | PCM.PN.ORT ---
Subjective Subjective Postop day 3 status post lumbar I&D. Reviewed wound care notes from this morning including picture. Wound VAC changed this morning. Pain well-controlled. Objective Data Objective Data Vital Signs: Vital Signs Temp Pulse Resp BP Pulse Ox O2 Del Method O2 Flow Rate 97.8 F 83 16 153/63 H 91 Room Air 0 07/02/23 15:36 07/03/23 09:01 07/02/23 15:36 07/03/23 09:01 07/02/23 15:36 07/02/23 15:36 06/26/23 23:07 FiO2 21 06/26/23 23:07 Oxygen Flow Rate (L/min) 0 Oxygen Delivery Method Room Air Weight: 260 lb 12.8 oz Body Mass Index (BMI) 42.0 Intake & Output: Intake and Output for Last 24 Hours 07/01/23 07/02/23 07/03/23 23:59 23:59 23:59 Intake Total 2991.25 / 2991.25 4028.75 / 4028.75 860 / 860 Output Total 1200 / 1200 2600 / 2600 2400 / 2400 Balance 1791.25 / 1791.25 1428.75 / 1428.75 -1540 / -1540 Lab / Micro Data 07/02/23 09:45 07/01/23 12:30 Labs: Laboratory Results - last 24 hr 07/03/23 00:30: Vancomycin Trough 19.2 H Micro: Microbiology 06/27/23 09:50 Urine Catheter - Catheter Urine Culture - Final Culture exhibits no growth. 06/26/23 20:27 Stool Stool Occult Blood (LUCINA) - Final Occult Blood Positive Physical Exam Narrative wound VAC present. Neurologic exam is baseline. Const alert and oriented x3 Assessment & Plan Assessment/Plan (1) Wound dehiscence: PLAN: Plan Postop day 3 status post I&D for lumbar surgical site infection. Superficial and deep cultures taken. Wound VAC maintaining suction. Appreciate comanagement by wound care service. Initial results suggest possible Pseudomonas. vancomycin and cefepime on empiric basis. ID consult placed, recommendations awaited. Will likely change antibiotics per culture results. Will continue to need additional rehab with PT OT. Encourage frequent position changes and sitting up in wheelchair when able. Will continue to follow while in TCU.
[2023-07-03] MEDS: tiZANidine HCl 2 MG Tablet PO ×2 (13:10→21:37)
[2023-07-03 13:46] VITALS: BP 123/58; PULSE 75; RESP 18; TEMP 36.8; O2SAT 92
--- NOTE | 2023-07-03 13:56 | PCM.CONS.GEN ---
Assessment & Plan Assessment/Plan (1) Status post lumbar discectomy: (2) Deep incisional surgical site infection: PLAN: Taken to OR 06/30/23 for I&D by Dr. Cheatham. Wound cx with PsA and enterococcus. Will order picc and narrow abx to zosyn. Will follow, thank you HPI Consult Data Date of Consult: 07/03/23 HPI Narrative Reason for Consultation: surg site infection HPI Narrative: BARBARA KARIMI, is a 67 F who had L4-5 L sided laminectomy/discectomy for large central disc herniation on 06/08/[address] Cheatham here. Transferred to TCU afterwards, then 2 weeks after surgery, had wound dehiscence, seen by wound care, given one week course of keflex. No fever or chills, no new pain in back. Imaging done, concern for abscess, taken to OR 06/30/[address] Cheatham for I&D. Now back in TCU on vanc/cefepime, feeling ok. No n/v/d. Full ROS performed and neg except as noted above. [facility] Medical History Lumbar radiculopathy, acute Morbid obesity RIIS treated with BiPAP Anxiety and depression History of alcohol abuse Thyroid nodule Former smoker COPD (chronic obstructive pulmonary disease) Atrial fibrillation Neuropathic pain Vitamin D deficiency Hyperlipidemia Herpes zoster Hypertension Osteoarthritis of knees, bilateral Pseudogout of right knee Thoracic spinal stenosis Home Medications ?Medication ?Instructions ?Recorded ?Last Taken ?Type atorvastatin 10 mg tablet 10 mg PO DAILY@2200 Cholesterol 12/08/20 06/29/23 History cholecalciferol (vitamin D3) 25 2,000 unit PO DAILY Supplement 12/08/20 06/29/23 History mcg (1,000 unit) tablet (Vitamin D3) diclofenac sodium 1 % topical gel 1 ea topical Q6H Pain 12/08/20 06/01/23 History (Voltaren Arthritis Pain) sertraline 100 mg tablet 100 mg PO DAILY Mood 12/08/20 06/30/23 08:35 History hydroxyzine pamoate 25 mg capsule 25 mg PO QHS anxiety 30 days #30 01/11/21 06/08/23 10:15 Rx caps amlodipine 10 mg tablet 10 mg PO DAILY heart 06/02/23 06/29/23 History ketoconazole 2 % topical cream 1 applic topical DAILY skin 06/02/23 06/01/23 History acetaminophen 500 mg tablet 1,000 mg (2 x 500 mg) PO Q8 severe 06/09/23 06/30/23 13:15 Rx pain #0 tabs gabapentin 600 mg tablet 600 mg PO TIDCM nerve pain #0 tabs 06/09/23 06/30/23 13:15 Rx oxycodone 5 mg tablet 2.5 - 5 mg (0.5 - 1 x 5 mg) PO Q4H 06/09/23 06/30/23 10:55 Rx PRN PRN Pain Score 6-10 #0 tabs sennosides 8.6 mg-docusate sodium 2 tab PO BID constipation #0 tabs 06/09/23 06/29/23 Rx 50 mg tablet (Stool Softener-Stimulant Laxative) tizanidine 2 mg tablet 2 mg PO Q8H PRN PRN muscle spasms 06/09/23 06/30/23 02:40 Rx #0 tabs losartan 50 mg tablet (Cozaar) 50 mg PO BID 06/29/23 06/30/23 08:35 History pantoprazole 40 mg tablet,delayed 40 mg PO BID 06/29/23 06/30/23 08:35 History release polyethylene glycol 3350 17 17 g PO DAILY 06/29/23 06/29/23 History gram/dose oral powder (Miralax) Allergy/AdvReac Type Severity Reaction Status Date / Time hydrocodone (From Vicodin) Allergy Anaphylaxis Verified 06/29/23 15:02 lorazepam (From Ativan) Allergy Hives Verified 06/29/23 15:02 neomycin Allergy Hives Verified 06/29/23 15:02 Family History Mother No problems noted. Father Leukemia Diabetes Surgical History (Updated 06/28/23 @ 16:02 by Verónica Elizabeth) History of lumbar laminectomy History of back surgery History of back surgery History of adenoidectomy Hx of tonsillectomy Social History (Updated 06/09/23 @ 19:[address] Darrel Karimi MD) household members: none Smoking Status: Former smoker how long ago did patient quit smoking: Quit 45 yrs prior, smoked 1 ppd starting age 19 until quit. alcohol intake: former details: Drank heavily prior, sober x 45 years. substance use type: does not use Physical Exam Const alert, oriented x3 and no apparent distress General Appearance: cooperative HEENT normocephalic and head/scalp atraumatic Neck supple and No nodes Resp normal air movement and clear to auscultation bilaterally Cardio regular rate and regular rhythm GI soft to palpation, non-tender and non-distended Extremity General Extremity: edema Skin Skin Narrative: reviewed wound photos Neuro CN's II-XII intact bilaterally Lab / Micro Data Attestation: I reviewed the patient's lab results. 07/02/23 09:45 07/01/23 12:30 Labs: Laboratory Results - last 24 hr 07/03/23 00:30: Vancomycin Trough 19.2 H
[2023-07-03] MEDS: 0.9% Saline Lock 10 ML Syringe IV ×2 (14:16→21:38)
--- NOTE | 2023-07-03 14:33 | NURSING ---
IN TO SEE PT. NEW ORDERS FOR ZOSYN 12.5 ML/HR. D/C'ED VANCOMYCIN,AND MAXIPINE. ORDER FOR PICC, ASSESS RN CALLED.
[2023-07-03] MEDS: Bisacodyl 10 MG Suppository RC (14:41)
[2023-07-03] MEDS: Piperacil/Tazobactam 3.375 GM in 0.9% Normal Saline (50mL MB+) 50 ML IV ×2 (14:50→22:29)
--- NOTE | 2023-07-03 14:56 | NURSING ---
Addendum entered by Ryan Marie 07/03/23 18:38: Positive results from the suppository Original Note: PT HAS NOT HAD A BM IN 5 DAYS. PRN SUPPOSITORY GIVEN.
--- NOTE | 2023-07-03 15:39 | NURSING ---
THERAPY GOT PT UP IN WHEEL CHAIR,PT CALLED OUT 20 MINS LATER AND WANTED BACK IN BED. THIS NURSE ASKED WHY SHE WANTED BACK IN BED ALREADY,PT STATED JONAS JUST NOT COMFORTABLE AND HAVE PAIN. PT HAS HAD ALL PRN AND SCHEDULED PAIN MEDS. TRIED ADJUSTING PT AND ASKED IF PT COULD STAY UP FOR AT LEAST 1 HOUR TO HELP GET HER STRONGER AND SO SHE DONT GET PNEUMONIA. PT AGREED.
--- NOTE | 2023-07-03 19:51 | PCA ---
pt. rang for bedpan me and other director of estate went it to put her on bedpan and she said oh I see it's time for the purewick so she stated that she just wanted the purewick And we asked if she wanted to get washed up for bed she refused.
[2023-07-03 20:00] VITALS: O2SAT 92
--- NOTE | 2023-07-03 20:00 | NURSING ---
shake packer on unit to place Midline, order provided to THERAPIST RRT nurse placing midline per request.
--- NOTE | 2023-07-03 20:53 | PN.TCU_ITS ---
Subjective Subjective Resident seen, examined for regulatory visit. She is depressed, and has not been motivated to get OOB, and work hard in therapy, we had discussion, and she agreed to try a little harder. 06/28/2023 Dr. Patel EGD: Impressions : - Normal esophagus. - Oozing gastric ulcers with pigmented material. Treated with a heater probe. Biopsied. - No gross lesions in the first portion of the duodenum. 06/28/2023 Dr. Patel colonoscopy: Impressions : - Preparation of the colon was fair. - Diverticulosis in the recto-sigmoid colon and in the sigmoid colon. - A single (solitary) ulcer in the cecum. Treated with a heater probe. Biopsied. - Stool in the rectum, in the recto-sigmoid colon, in the transverse colon and in the cecum. 06/30/2023 Dr. Cheatham performed lumbar surgical irrigation debridement, superficial and deep. 07/03/2023 Dr. Zimmerman wound culture PsA, Enterococcus, PICC line ordered, narrow ATB's to Zosyn IV. Objective Data Objective Data Vital Signs: Vital Signs Temp Pulse Resp BP Pulse Ox O2 Del Method O2 Flow Rate 98.3 F 75 18 123/58 H 92 Room Air 0 07/03/23 13:46 07/03/23 13:46 07/03/23 13:46 07/03/23 13:46 07/03/23 13:46 07/03/23 13:46 06/26/23 23:07 FiO2 21 06/26/23 23:07 Oxygen Flow Rate (L/min) 0 Oxygen Delivery Method Room Air Weight: 118.115 kg Body Mass Index (BMI) 42.0 Intake & Output: Intake and Output for Last 24 Hours 07/01/23 07/02/23 07/03/23 23:59 23:59 23:59 Intake Total 2991.25 / 2991.25 4028.75 / 4028.75 2038.75 / 2038.75 Output Total 1200 / 1200 2600 / 2600 2400 / 2400 Balance 1791.25 / 1791.25 1428.75 / 1428.75 -361.25 / -361.25 Lab / Micro Data 07/02/23 09:45 07/01/23 12:30 Labs: Laboratory Results - last 24 hr 07/03/23 00:30: Vancomycin Trough 19.2 H Micro: Microbiology 06/27/23 09:50 Urine Catheter - Catheter Urine Culture - Final Culture exhibits no growth. 06/26/23 20:27 Stool Stool Occult Blood (LUCINA) - Final Occult Blood Positive Physical Exam Const alert, oriented x3 and no apparent distress General Appearance: cooperative HEENT normocephalic and head/scalp atraumatic Eyes PERRL and EOMs intact bilaterally Neck supple and No nodes Resp normal air movement and clear to auscultation bilaterally Cardio regular rate and regular rhythm GI soft to palpation, non-tender and non-distended Extremity normal capillary refill General Extremity: edema Skin no rashes or lesions noted Skin Narrative: reviewed wound photos General Skin Exam: no breakdown Neuro CN's II-XII intact bilaterally Psych affect normal Appearance: appropriate Assessment & Plan Assessment/Plan (1) Debility: (2) Stenosis, spinal, lumbar: QUALIFIERS: Neurogenic claudication status: with neurogenic claudication Qualified Code(s): M48.062 - Spinal stenosis, lumbar region with neurogenic claudication (3) Lumbar radiculopathy, acute: (4) Intractable back pain: (5) Status post lumbar discectomy: (6) Pseudogout: (7) Essential (primary) hypertension: (8) Hyperlipidemia: (9) Vitamin D deficiency: (10) Neuropathic pain: (11) Muscle spasm of back: (12) Depression: (13) Morbid obesity: PLAN: Plan 67 year old female with below past medical history hospitalized for intractable back pain 2/2 lumbar spinal stenosis, lumbar radiculopathy, underwent L4-5 left sided laminotomy, discectomy 06/08/[address] Cheatham, admitted to TCU with debility, here for rehabilitation, strengthening, prior to discharge home alone. * Debility - PT/OT. * Pain - Tylenol 1000mg q8, Oxycodone 5mg q4h prn. * Bowel - Miralax 17gm bid, senna/colace 2 tablets bid, Dulcolax 10mg pr daily prn. * Adult immunization - Administer pneumonia vaccine, covid vaccine, flu vaccine as appropriate. * DVT prophylaxis - Hold. * Hypertension - Losartan 50mg AM, 50mg QHS, Amlodipine 10mg daily, Clonidine 0.1mg bid. * Hyperlipidemia - Atorvastatin 10mg qhs. * Vitamin D deficiency - D3 25mcg daily. * Lumbar spinal stenosis s/p surgery - Decadron taper. * Neuropathic pain - Gabapentin 600ng tidcm. * Insomnia - Hydroxyzine 25mg qhs. * Depression - Uncontrolled, increase Sertraline 150mg daily, stable chronic termite helper use, GDR not recommended. * Muscle spasm - Tizanidine 2mg q8 prn. * Gastric ulcers - Pantoprazole 40mg bid. * Skin irritation - Calmoseptine topical bid. * Lumbar abscess s/p debridement - wound VAC, Zosyn 3.375gm iv q8 via PICC, culture growing PsA, Enterococcus, Terrance 1 packet bidcm.
[2023-07-03 21:40] VITALS: BP 136/60; PULSE 75
[2023-07-03] MEDS: Atorvastatin Calcium 10 MG Tablet PO (21:46)
[2023-07-03] MEDS: hydrOXYzine PAM 25 MG Capsule PO (21:48)
[2023-07-04] MEDS: oxyCODONE 5 MG Tablet PO ×4 (00:16→22:13)
[2023-07-04] MEDS: Piperacil/Tazobactam 3.375 GM in 0.9% Normal Saline (50mL MB+) 50 ML IV ×3 (05:01→22:35)
[2023-07-04] MEDS: Menthol/Lanolin/Calamine/Znox 113 GM Tube 1 APPLIC TOPICAL ×3 (05:04→22:16)
[2023-07-04] MEDS: tiZANidine HCl 2 MG Tablet PO ×3 (05:07→22:13)
[2023-07-04] MEDS: Acetaminophen 500 MG Tablet 1000 MG PO ×3 (05:07→22:22)
[2023-07-04 06:00] VITALS: BMI 41.0
[2023-07-04] MEDS: Gabapentin 600 MG Tablet PO ×3 (08:12→16:59)
[2023-07-04] MEDS: Juven (unflavored) Packet 1 PACKET PO ×2 (08:13→16:53)
[2023-07-04] MEDS: cloNIDine HCl 0.1 MG Tablet PO ×2 (08:13→22:19)
[2023-07-04] MEDS: Polyethylene Glycol 3350 17 GM PACKET PO ×2 (08:13→22:21)
[2023-07-04] MEDS: Sertraline 50 MG Tablet 150 MG PO (08:14)
[2023-07-04] MEDS: Cholecalciferol (VIT D3) 25 MCG TABLET (1,000 UNITS) 50 MCG PO (08:14)
[2023-07-04] MEDS: Senna/Docusate Sodium 1 Tablet 2 TABLET PO ×2 (08:14→22:22)
[2023-07-04] MEDS: Losartan Potassium 50 MG Tablet PO ×2 (08:15→22:20)
[2023-07-04] MEDS: amLODIPine 10 MG Tablet PO (08:15)
[2023-07-04] MEDS: Pantoprazole Sodium 40 MG Tablet PO ×2 (08:15→22:21)
[2023-07-04 08:24] VITALS: BP 123/50; PULSE 76
[2023-07-04 10:00] VITALS: PULSE 78; RESP 18; O2SAT 94
[2023-07-04] MEDS: 0.9% Saline Lock 10 ML Syringe IV ×3 (11:13→22:23)
--- NOTE | 2023-07-04 14:14 | WOUNDNOTE ---
CHECO Davis did state she had to reinforce the wound VAC drape today. may need to adjust the trac pad with next dressing change.
[2023-07-04 14:17] VITALS: BMI 41.0
[2023-07-04 16:00] VITALS: BP 119/56; PULSE 71; RESP 16; TEMP 36.1; O2SAT 97
--- NOTE | 2023-07-04 16:22 | NURSING ---
PT STAYED UP IN RECLINER FOR 2 HOURS. PT TOLERATED WELL.
--- NOTE | 2023-07-04 17:55 | CASEMGMT ---
Social Work SW met with patient at bedside to complete IPA. Patient BIM () and PhQ-9 (). Patient's depression score remains high for Moderate severe depression. SW explored depression with patient. Patient contributes current feelings of being down and hopeless' due to medical condition and decline in functional status. Patient is concerned about watermelon harvesting supervisor care. SW discussed teams continued recommendation for intermediate care at facility due to current medical needs. Patient informed SW that she discussed care plan recommendations with her niece. Patient informed SW that she will have niece contact SW to discuss intermediate care placement options. SW informed patient that an electronic and printed list can be provided for watermelon harvesting supervisor care placement. Patient informed SW that niece will follow up on to discuss intermediate care. Patient currently has wound vac, IV abx, and continued therapy Max A; total assist. SW will continue to follow to assist with watermelon harvesting supervisor care planning. ERICKA Perez
[2023-07-04] MEDS: Atorvastatin Calcium 10 MG Tablet PO (22:20)
[2023-07-04] MEDS: hydrOXYzine PAM 25 MG Capsule PO (22:22)
[2023-07-04] MEDS: Nystatin Powder 15gm Bottle 1 APPLIC TOPICAL (22:27)
[2023-07-04 23:01] VITALS: BP 125/56; PULSE 79
[2023-07-05] MEDS: oxyCODONE 5 MG Tablet PO ×4 (03:45→17:10)
[2023-07-05] MEDS: Piperacil/Tazobactam 3.375 GM in 0.9% Normal Saline (50mL MB+) 50 ML IV ×3 (04:59→22:11)
[2023-07-05] MEDS: Menthol/Lanolin/Calamine/Znox 113 GM Tube 1 APPLIC TOPICAL ×3 (05:05→21:38)
[2023-07-05] MEDS: Acetaminophen 500 MG Tablet 1000 MG PO ×3 (05:32→21:40)
[2023-07-05 06:00] LABS: Hematocrit 29.5 % (37-47); Hemoglobin 9.2 g/dL (12.0-15.0)
[2023-07-05] MEDS: cloNIDine HCl 0.1 MG Tablet PO ×2 (08:31→21:42)
[2023-07-05] MEDS: Losartan Potassium 50 MG Tablet PO ×2 (08:31→21:42)
[2023-07-05] MEDS: Gabapentin 600 MG Tablet PO ×3 (08:31→17:10)
[2023-07-05] MEDS: Juven (unflavored) Packet 1 PACKET PO ×2 (08:31→17:10)
[2023-07-05] MEDS: tiZANidine HCl 2 MG Tablet PO ×2 (08:31→21:42)
[2023-07-05] MEDS: Polyethylene Glycol 3350 17 GM PACKET PO (08:32)
[2023-07-05] MEDS: Pantoprazole Sodium 40 MG Tablet PO ×2 (08:32→21:40)
[2023-07-05] MEDS: Senna/Docusate Sodium 1 Tablet 2 TABLET PO ×2 (08:32→21:40)
[2023-07-05] MEDS: amLODIPine 10 MG Tablet PO (08:32)
[2023-07-05] MEDS: Sertraline 50 MG Tablet 150 MG PO (08:33)
[2023-07-05] MEDS: Cholecalciferol (VIT D3) 25 MCG TABLET (1,000 UNITS) 50 MCG PO (08:33)
[2023-07-05] MEDS: Nystatin Powder 15gm Bottle 1 APPLIC TOPICAL ×2 (08:38→22:11)
[2023-07-05 10:42] VITALS: BP 105/52; PULSE 66; RESP 16; TEMP 36.4; O2SAT 91
[2023-07-05] MEDS: 0.9% Normal Saline (250mL Bag) 250 ML 12.5 ML IV (14:35)
[2023-07-05] MEDS: 0.9% Saline Lock 10 ML Syringe IV ×2 (14:35→20:20)
[2023-07-05 20:30] VITALS: PULSE 75; O2SAT 92
[2023-07-05 21:35] VITALS: BP 129/55; PULSE 78
[2023-07-05] MEDS: hydrOXYzine PAM 25 MG Capsule PO (21:40)
[2023-07-05] MEDS: Atorvastatin Calcium 10 MG Tablet PO (21:40)
[2023-07-06] MEDS: 0.9% Saline Lock 10 ML Syringe IV (02:34)
[2023-07-06] MEDS: oxyCODONE 5 MG Tablet PO ×4 (04:48→22:43)
[2023-07-06] MEDS: Acetaminophen 500 MG Tablet 1000 MG PO ×3 (05:38→23:29)
[2023-07-06] MEDS: Piperacil/Tazobactam 3.375 GM in 0.9% Normal Saline (50mL MB+) 50 ML IV ×3 (05:38→22:29)
[2023-07-06] MEDS: Menthol/Lanolin/Calamine/Znox 113 GM Tube 1 APPLIC TOPICAL ×3 (05:39→22:39)
--- NOTE | 2023-07-06 07:59 | MDS.RN ---
Information for the MDS was obtained from review of the clinical record, interview of resident, staff, and direct observation of resident?s care.
[2023-07-06] MEDS: Gabapentin 600 MG Tablet PO ×3 (08:51→17:12)
[2023-07-06] MEDS: tiZANidine HCl 2 MG Tablet PO ×2 (08:56→22:41)
[2023-07-06] MEDS: Juven (unflavored) Packet 1 PACKET PO ×2 (08:56→17:05)
[2023-07-06] MEDS: cloNIDine HCl 0.1 MG Tablet PO ×2 (08:58→23:27)
[2023-07-06] MEDS: Losartan Potassium 50 MG Tablet PO ×2 (08:58→23:27)
[2023-07-06] MEDS: Nystatin Powder 15gm Bottle 1 APPLIC TOPICAL ×2 (08:59→22:40)
[2023-07-06] MEDS: amLODIPine 10 MG Tablet PO (09:00)
[2023-07-06] MEDS: Pantoprazole Sodium 40 MG Tablet PO ×2 (09:00→23:28)
[2023-07-06] MEDS: Cholecalciferol (VIT D3) 25 MCG TABLET (1,000 UNITS) 50 MCG PO (09:01)
[2023-07-06] MEDS: Sertraline 50 MG Tablet 150 MG PO (09:01)
[2023-07-06] MEDS: Senna/Docusate Sodium 1 Tablet 2 TABLET PO (09:01)
[2023-07-06 09:06] VITALS: BP 150/68; PULSE 93
[2023-07-06 14:15] VITALS: PULSE 70; RESP 18; O2SAT 91
[2023-07-06] MEDS: 0.9% Normal Saline (250mL Bag) 250 ML 15 ML IV (14:40)
--- NOTE | 2023-07-06 15:33 | NURSING ---
IN TO SEE PT TODAY. NNO AT THIS TIME.
--- NOTE | 2023-07-06 15:54 | PCM.PN.ID ---
Physical Exam Narrative Feeling ok, no fever, no n/v/d. Const alert and no apparent distress Resp normal air movement and clear to auscultation bilaterally Cardio regular rate and regular rhythm GI soft to palpation, non-tender and non-distended Skin no rashes or lesions noted ID ID: Route of nutrition/ use of supplements: [] Nutritional Intake: [] IV Site: [] Atkins Catheter: [] Assessment & Plan Assessment/Plan (1) Status post lumbar discectomy: (2) Deep incisional surgical site infection: PLAN: Taken to OR 06/30/23 for I&D by Dr. Cheatham after recent L4-5 surgery. Cervical and thoracic hardware in place. Wound cx with PsA and enterococcus. Plan is for 2 weeks iv zosyn, start date 07/01, stop date 07/16/23. Will follow
[2023-07-06 16:00] VITALS: BP 130/48; PULSE 74; RESP 18; TEMP 36.4; O2SAT 93
--- NOTE | 2023-07-06 16:51 | NURSING ---
IN TO SEE PT TODAY. NNO,CONTINUE IV ZOSYN TILL 07/16/23.
[2023-07-06 22:52] VITALS: BP 135/60; PULSE 78
[2023-07-06] MEDS: Atorvastatin Calcium 10 MG Tablet PO (23:28)
[2023-07-06] MEDS: hydrOXYzine PAM 25 MG Capsule PO (23:29)
[2023-07-07] MEDS: oxyCODONE 5 MG Tablet PO ×4 (03:31→21:07)
[2023-07-07] MEDS: Piperacil/Tazobactam 3.375 GM in 0.9% Normal Saline (50mL MB+) 50 ML IV ×3 (05:02→21:11)
[2023-07-07] MEDS: Menthol/Lanolin/Calamine/Znox 113 GM Tube 1 APPLIC TOPICAL ×3 (05:04→21:10)
[2023-07-07] MEDS: Acetaminophen 500 MG Tablet 1000 MG PO ×3 (05:04→21:06)
[2023-07-07 06:00] VITALS: BMI 41.5
[2023-07-07 06:04] LABS: Absolute Lymphocyte Count 1.76 X10^3/uL (0.83-4.51); Absolute Neutrophil Count 4.2 X10^3/uL (2.0-7.7); Basophil# 0.04 X10^3/uL; Basophil% 0.6 % (0-1); Eosinophil# 0.25 X10^3/uL; Eosinophils% 3.6 % (0-5); Hematocrit 28.3 % (37-47); Hemoglobin 8.6 g/dL (12.0-15.0); Lymphocyte # 1.76 X10^3/ul (0.83-4.51); Lymphocyte % 25.3 % (19-41); Mean Corp Hgb Conc 30.4 g/dL (32-36); Mean Corpuscular Hgb 26.4 pg (27.0-32.0); Mean Corpuscular Volume 86.8 fL (81-99); Mean Platelet Vol. 8.8 fl (6.2-12.0); Monocyte# 0.69 X10^3/uL; Monocyte% 9.9 % (0-10); NRBC Flagged by Analyzer 0 % (0-5); Neutrophil # 4.15 X10^3/uL (2.7-7.7); Neutrophil % 59.7 % (47-70); Platelet Count 493 K/mm3 (150-450); RBC Distribution Width CV 13.8 % (11.6-14.6); RBC Distribution Width SD 43.3 fl (35.1-43.9); Red Blood Count 3.26 M/mm3 (4.2-5.4)
[2023-07-07 06:19] LABS: Anion Gap 6 (5-15); BUN 18 mg/dL (7-18); BUN/Creat Ratio 37.8 RATIO (10-20); Calcium,Total 9.4 mg/dL (8.5-10.1); Chloride 101 mmol/L (98-107); Creatinine, Serum 0.48 mg/dL (0.55-1.02); EST Glomerular Filtration Rate 137 mL/min (>60); Est Glom Filt Rate - Afr Amer 166 mL/min (>60); Estimated Creatinine Clearance 85.56 ml/min; Glucose 99 mg/dL (74-106); Sodium Level 136 mmol/L (136-145)
[2023-07-07] MEDS: Gabapentin 600 MG Tablet PO ×3 (08:34→17:55)
[2023-07-07] MEDS: Juven (unflavored) Packet 1 PACKET PO ×2 (08:34→17:55)
[2023-07-07] MEDS: cloNIDine HCl 0.1 MG Tablet PO ×2 (08:34→21:06)
[2023-07-07] MEDS: amLODIPine 10 MG Tablet PO (08:35)
[2023-07-07] MEDS: Losartan Potassium 50 MG Tablet PO ×2 (08:35→21:06)
[2023-07-07] MEDS: Senna/Docusate Sodium 1 Tablet 2 TABLET PO ×2 (08:35→21:06)
[2023-07-07] MEDS: Pantoprazole Sodium 40 MG Tablet PO ×2 (08:35→21:06)
[2023-07-07] MEDS: Cholecalciferol (VIT D3) 25 MCG TABLET (1,000 UNITS) 50 MCG PO (08:36)
[2023-07-07] MEDS: Sertraline 50 MG Tablet 150 MG PO (08:36)
[2023-07-07] MEDS: Nystatin Powder 15gm Bottle 1 APPLIC TOPICAL ×2 (08:37→21:10)
--- NOTE | 2023-07-07 10:44 | WOUNDNOTE ---
wound photo: mid lower back
[2023-07-07] MEDS: tiZANidine HCl 2 MG Tablet PO ×2 (12:37→21:09)
[2023-07-07] MEDS: 0.9% Normal Saline (250mL Bag) 250 ML 12.5 ML IV (13:58)
[2023-07-07] MEDS: 0.9% Saline Lock 10 ML Syringe IV ×2 (13:59→21:07)
[2023-07-07 16:00] VITALS: BP 127/91; PULSE 64; RESP 16; TEMP 36.7; O2SAT 91
--- NOTE | 2023-07-07 16:33 | CASEMGMT ---
Social Work SW met with patient at bedside to provide printed long term provider list within preferred geographic, medical needs, and insurance network via [employer] Guide. Patient inquired about discussion with family member, Juanita. SW informed patient that her niece has not contacted SW at this time. SW provided long term list and reviewed referral process. Patient informed SW that she will review list with family. Patient informed SW that her niece Juanita and Kasey are visiting different facilities to provide choice. Patient informed SW that she will be at facility for short term intermediate care. Patient would like to learn to use transfer board to transfer to wheelchair. Patient informed SW that she feels better with IV abx and wound vac. SW informed patient that she will require exterminator termite care. In addition, SW provided Living Will information per patient request. SW will meet with patient on Monday to complete Living Will. SW will continue to support patient for discharge planning. ERICKA Perez
[2023-07-07 20:46] VITALS: O2SAT 96
[2023-07-07 20:59] VITALS: BP 152/52; PULSE 83; O2SAT 96
[2023-07-07] MEDS: Atorvastatin Calcium 10 MG Tablet PO (21:06)
[2023-07-07] MEDS: hydrOXYzine PAM 25 MG Capsule PO (21:07)
[2023-07-07] MEDS: Polyethylene Glycol 3350 17 GM PACKET PO (21:09)
[2023-07-08] MEDS: oxyCODONE 5 MG Tablet PO ×4 (01:34→20:59)
[2023-07-08] MEDS: Piperacil/Tazobactam 3.375 GM in 0.9% Normal Saline (50mL MB+) 50 ML IV ×3 (05:33→20:59)
[2023-07-08] MEDS: Acetaminophen 500 MG Tablet 1000 MG PO ×3 (05:33→21:22)
[2023-07-08] MEDS: Menthol/Lanolin/Calamine/Znox 113 GM Tube 1 APPLIC TOPICAL ×3 (05:34→21:28)
[2023-07-08] MEDS: tiZANidine HCl 2 MG Tablet PO (09:09)
[2023-07-08] MEDS: Gabapentin 600 MG Tablet PO ×3 (09:09→18:02)
[2023-07-08] MEDS: Cholecalciferol (VIT D3) 25 MCG TABLET (1,000 UNITS) 50 MCG PO (09:10)
[2023-07-08] MEDS: Juven (unflavored) Packet 1 PACKET PO ×2 (09:10→18:02)
[2023-07-08] MEDS: Polyethylene Glycol 3350 17 GM PACKET PO (09:10)
[2023-07-08] MEDS: Senna/Docusate Sodium 1 Tablet 2 TABLET PO ×2 (09:11→21:22)
[2023-07-08] MEDS: Sertraline 50 MG Tablet 150 MG PO (09:11)
[2023-07-08] MEDS: Nystatin Powder 15gm Bottle 1 APPLIC TOPICAL ×2 (09:11→21:32)
[2023-07-08] MEDS: Pantoprazole Sodium 40 MG Tablet PO ×2 (09:11→21:22)
[2023-07-08 09:12] VITALS: BP 107/54; PULSE 71; RESP 16; TEMP 36.5; O2SAT 92
[2023-07-08] MEDS: Losartan Potassium 50 MG Tablet PO ×2 (09:12→21:26)
[2023-07-08] MEDS: amLODIPine 10 MG Tablet PO (09:12)
[2023-07-08] MEDS: cloNIDine HCl 0.1 MG Tablet PO ×2 (09:12→21:24)
[2023-07-08] MEDS: hydrOXYzine PAM 25 MG Capsule PO (21:21)
[2023-07-08] MEDS: Atorvastatin Calcium 10 MG Tablet PO (21:24)
[2023-07-09] MEDS: oxyCODONE 5 MG Tablet PO ×3 (03:50→20:23)
[2023-07-09] MEDS: tiZANidine HCl 2 MG Tablet PO ×3 (03:52→22:48)
[2023-07-09] MEDS: Piperacil/Tazobactam 3.375 GM in 0.9% Normal Saline (50mL MB+) 50 ML IV ×3 (05:44→22:08)
[2023-07-09] MEDS: Acetaminophen 500 MG Tablet 1000 MG PO ×3 (05:46→22:53)
[2023-07-09] MEDS: Menthol/Lanolin/Calamine/Znox 113 GM Tube 1 APPLIC TOPICAL ×3 (05:49→22:49)
[2023-07-09] MEDS: Polyethylene Glycol 3350 17 GM PACKET PO ×2 (08:06→22:51)
[2023-07-09] MEDS: Gabapentin 600 MG Tablet PO ×3 (08:06→18:06)
[2023-07-09] MEDS: Juven (unflavored) Packet 1 PACKET PO ×2 (08:06→18:03)
[2023-07-09] MEDS: Cholecalciferol (VIT D3) 25 MCG TABLET (1,000 UNITS) 50 MCG PO (08:11)
[2023-07-09] MEDS: Pantoprazole Sodium 40 MG Tablet PO ×2 (08:11→22:53)
[2023-07-09] MEDS: Losartan Potassium 50 MG Tablet PO ×2 (08:12→22:56)
[2023-07-09] MEDS: Nystatin Powder 15gm Bottle 1 APPLIC TOPICAL ×2 (08:12→22:50)
[2023-07-09] MEDS: Sertraline 50 MG Tablet 150 MG PO (08:13)
[2023-07-09] MEDS: cloNIDine HCl 0.1 MG Tablet PO ×2 (08:25→22:56)
[2023-07-09] MEDS: amLODIPine 10 MG Tablet PO (08:25)
[2023-07-09] MEDS: Senna/Docusate Sodium 1 Tablet 2 TABLET PO ×2 (08:28→22:53)
[2023-07-09 08:31] VITALS: BP 129/54; PULSE 72
[2023-07-09 10:45] VITALS: PULSE 72; RESP 18; O2SAT 93
[2023-07-09] MEDS: 0.9% Saline Lock 10 ML Syringe IV ×2 (14:09→22:08)
[2023-07-09 16:00] VITALS: BP 110/42; PULSE 64; RESP 16; TEMP 36.7; O2SAT 94
[2023-07-09 22:45] VITALS: BP 118/58; PULSE 88
[2023-07-09] MEDS: hydrOXYzine PAM 25 MG Capsule PO (22:54)
[2023-07-09] MEDS: Atorvastatin Calcium 10 MG Tablet PO (22:55)
[2023-07-10] MEDS: Piperacil/Tazobactam 3.375 GM in 0.9% Normal Saline (50mL MB+) 50 ML IV ×3 (05:06→22:06)
[2023-07-10] MEDS: 0.9% Normal Saline (250mL Bag) 250 ML 15 ML IV ×2 (05:09→22:08)
[2023-07-10] MEDS: Menthol/Lanolin/Calamine/Znox 113 GM Tube 1 APPLIC TOPICAL ×3 (05:13→22:05)
[2023-07-10] MEDS: Acetaminophen 500 MG Tablet 1000 MG PO ×3 (05:14→22:06)
[2023-07-10] MEDS: oxyCODONE 5 MG Tablet PO ×4 (05:17→22:08)
[2023-07-10 06:00] VITALS: BMI 39.9
[2023-07-10 08:51] VITALS: BP 113/65; PULSE 85; RESP 17; TEMP 36.4; O2SAT 92
[2023-07-10] MEDS: Gabapentin 600 MG Tablet PO ×3 (08:57→18:02)
[2023-07-10] MEDS: Juven (unflavored) Packet 1 PACKET PO ×2 (08:57→18:02)
[2023-07-10] MEDS: cloNIDine HCl 0.1 MG Tablet PO ×2 (08:57→22:07)
[2023-07-10] MEDS: Losartan Potassium 50 MG Tablet PO ×2 (08:58→22:07)
[2023-07-10] MEDS: amLODIPine 10 MG Tablet PO (08:58)
[2023-07-10] MEDS: Polyethylene Glycol 3350 17 GM PACKET PO ×2 (08:58→22:07)
[2023-07-10] MEDS: Cholecalciferol (VIT D3) 25 MCG TABLET (1,000 UNITS) 50 MCG PO (08:59)
[2023-07-10] MEDS: Sertraline 50 MG Tablet 150 MG PO (08:59)
[2023-07-10] MEDS: Nystatin Powder 15gm Bottle 1 APPLIC TOPICAL ×2 (08:59→22:05)
[2023-07-10] MEDS: Pantoprazole Sodium 40 MG Tablet PO ×2 (08:59→22:06)
[2023-07-10] MEDS: Senna/Docusate Sodium 1 Tablet 2 TABLET PO ×2 (08:59→22:06)
[2023-07-10] MEDS: tiZANidine HCl 2 MG Tablet PO ×2 (09:00→18:02)
[2023-07-10] MEDS: 0.9% Saline Lock 10 ML Syringe IV ×2 (18:47→22:07)
[2023-07-10] MEDS: hydrOXYzine PAM 25 MG Capsule PO (22:06)
[2023-07-10] MEDS: Atorvastatin Calcium 10 MG Tablet PO (22:07)
[2023-07-11] MEDS: 0.9% Saline Lock 10 ML Syringe IV ×3 (02:32→20:06)
[2023-07-11] MEDS: tiZANidine HCl 2 MG Tablet PO ×2 (05:39→15:49)
[2023-07-11] MEDS: Acetaminophen 500 MG Tablet 1000 MG PO ×3 (05:39→21:50)
[2023-07-11] MEDS: Piperacil/Tazobactam 3.375 GM in 0.9% Normal Saline (50mL MB+) 50 ML IV ×3 (05:40→22:41)
[2023-07-11] MEDS: Menthol/Lanolin/Calamine/Znox 113 GM Tube 1 APPLIC TOPICAL ×3 (05:41→22:47)
[2023-07-11 06:00] VITALS: BMI 39.9
[2023-07-11 09:30] VITALS: BP 118/53; PULSE 82; RESP 20; TEMP 36.4; O2SAT 97
[2023-07-11] MEDS: Gabapentin 600 MG Tablet PO ×3 (09:34→17:54)
[2023-07-11] MEDS: Senna/Docusate Sodium 1 Tablet 2 TABLET PO ×2 (09:34→22:54)
[2023-07-11] MEDS: oxyCODONE 5 MG Tablet PO ×3 (09:34→20:04)
[2023-07-11] MEDS: Sertraline 50 MG Tablet 150 MG PO (09:35)
[2023-07-11] MEDS: Cholecalciferol (VIT D3) 25 MCG TABLET (1,000 UNITS) 50 MCG PO (09:35)
[2023-07-11] MEDS: Losartan Potassium 50 MG Tablet PO ×2 (09:35→22:52)
[2023-07-11] MEDS: Pantoprazole Sodium 40 MG Tablet PO ×2 (09:35→22:54)
[2023-07-11] MEDS: amLODIPine 10 MG Tablet PO (09:35)
[2023-07-11] MEDS: Juven (unflavored) Packet 1 PACKET PO ×2 (09:36→17:54)
[2023-07-11] MEDS: Polyethylene Glycol 3350 17 GM PACKET PO ×2 (09:36→22:49)
[2023-07-11] MEDS: Nystatin Powder 15gm Bottle 1 APPLIC TOPICAL ×2 (09:36→22:53)
[2023-07-11] MEDS: cloNIDine HCl 0.1 MG Tablet PO ×2 (09:36→22:51)
[2023-07-11 17:00] VITALS: BMI 39.9
--- NOTE | 2023-07-11 20:12 | NURSING ---
PT alerted this nurse that midline site felt wet, site is wet, RN notified, RN flushed site and site is leaking, midline to left upper arm D/C'd by RN.
--- NOTE | 2023-07-11 21:25 | NURSING ---
2015: This nurse called to room to assess midline d/t resident c/o dressing being wet. Upon arrival to room, over half of dressing to JSOE midline was wet in addition to clothing and linens. Pulled tegaderm CHG dressing back to expose insertion site. End cap cleaned w/ etoh and attempted to flush w/ 10 ml NS and site was leaking. Midline catheter dc'ed w/ tip intact- 17cm length. Firm pressure applied to site. No bleeding noted. No redness, warmth, or swelling. One folded sterile 4x4 applied and secured w/ opsite. S/L inserted into RAC x 1 attempt using aseptic technique- refer to IV assessment for additional details. IV flushed w/ 20 ml NS and connected to Zosyn. Will continue to monitor.
[2023-07-11 22:00] VITALS: PULSE 68; O2SAT 91
[2023-07-11] MEDS: Atorvastatin Calcium 10 MG Tablet PO (22:53)
[2023-07-11] MEDS: hydrOXYzine PAM 25 MG Capsule PO (22:54)
[2023-07-11 23:02] VITALS: BP 109/50; PULSE 68
[2023-07-12] MEDS: oxyCODONE 5 MG Tablet PO ×5 (00:17→23:32)
[2023-07-12] MEDS: tiZANidine HCl 2 MG Tablet PO ×3 (00:17→20:40)
[2023-07-12] MEDS: Piperacil/Tazobactam 3.375 GM in 0.9% Normal Saline (50mL MB+) 50 ML IV ×3 (05:00→23:16)
[2023-07-12] MEDS: Menthol/Lanolin/Calamine/Znox 113 GM Tube 1 APPLIC TOPICAL ×3 (05:04→23:18)
[2023-07-12] MEDS: Acetaminophen 500 MG Tablet 1000 MG PO ×3 (05:06→23:25)
[2023-07-12] MEDS: Juven (unflavored) Packet 1 PACKET PO ×2 (08:25→17:17)
[2023-07-12] MEDS: Polyethylene Glycol 3350 17 GM PACKET PO (08:25)
[2023-07-12] MEDS: Gabapentin 600 MG Tablet PO ×3 (08:34→17:22)
[2023-07-12] MEDS: cloNIDine HCl 0.1 MG Tablet PO ×2 (08:35→23:26)
[2023-07-12] MEDS: Losartan Potassium 50 MG Tablet PO ×2 (08:36→23:24)
[2023-07-12] MEDS: Nystatin Powder 15gm Bottle 1 APPLIC TOPICAL ×2 (08:36→23:18)
[2023-07-12] MEDS: amLODIPine 10 MG Tablet PO (08:37)
[2023-07-12] MEDS: Cholecalciferol (VIT D3) 25 MCG TABLET (1,000 UNITS) 50 MCG PO (08:37)
[2023-07-12] MEDS: Senna/Docusate Sodium 1 Tablet 2 TABLET PO ×2 (08:37→23:23)
[2023-07-12] MEDS: Pantoprazole Sodium 40 MG Tablet PO ×2 (08:37→23:23)
[2023-07-12] MEDS: Sertraline 50 MG Tablet 150 MG PO (08:38)
[2023-07-12 08:42] VITALS: BP 117/75; PULSE 78
--- NOTE | 2023-07-12 08:48 | NURSING ---
Right AC IV leaking this morning, asked to look at it by MEDICAL SUPPORT SPECIALIST. IV leaking, unable to be flushed, removed IV. Called and spoke with Jannet, she will place an IV/midline around 10-10:30 today. Updated MEDICAL SUPPORT SPECIALIST Ryan and patient.
--- NOTE | 2023-07-12 10:04 | CASEMGMT ---
Addendum entered by Halima Gilliam 07/12/23 17:12: NELLY met with patient and friend to discuss discharge. Patient informed SW that she has been [place] [facility] provider [facility]. Patient informed SW that she will be discussing choice with Juanita. Patient and friend inquired about facility provider amenities. Patient inquired about whether a hospital bed will be at facility. Patient requested for recommendations. SW informed patient that this check writer salesperson is unable to provide recommendations for placement. Patient informed SW that she is interested in referral being sent to [facility]. SW submit referral to facility. SW provided strategies to visit facility and determine appropriate facility for care. Patient's goal is to transition to [facility] with skilled services. SW informed patient that she will have copay associated with nursing facility placement. Patient informed SW that she is okay with copay for care. Patient informed SW that she will contact secondary insurance to determine coverage for copay. Patient informed SW that she feels she has been progressing with therapy over the past week, but she is concerned about pain management. Patient informed SW that she has not seen a pain management physician. Patient is requesting that pain management is consulted. SW notified physician, Dr. Karimi. Patient would like to transition to SNF under copay. Original Note: Social Work 0943-NELLY received a call from patient's niece Juanita Michaels to discuss termite control service representative care. Juanita informed NELLY that she would like to assist patient with finding shelter care placement. Juanita informed SW that she has made many attempts to discuss termite control service representative care placement with the patient. Patient is reluctant to go to termite control service representative care. Juanita informed NELLY that the patient is hoping to go to a facility for a month or two then return home. Juanita informed NELLY that she does not agree with patient returning to home at this time. NELLY discussed safety concerns for patient to return home alone. NELLY reviewed [facility] resources for support, should patient return home. Juanita informed NELLY that she has been in contact with [facility], but she does not want patient to return home at this time. Juanita will assist patient with identifying termite control service representative care placements. Juanita informed SW that she [facility]. NELLY informed Juanita of therapy recommendation for shelter care. NELLY discussed concerns for patient returning home and lack of care in home. NELLY discussed recommendation for bariatric wheelchair- wider wheelchair. NELLY discussed Medicare co-pay and possibility for out of pocket expense for placement. NELLY sent Juanita a list of nursing facility providers for shelter care facilities in patient's preferred area [facility]. Patient was notified of conversation with Juanita. ERICKA Perez
[2023-07-12 10:35] VITALS: PULSE 74; RESP 18; O2SAT 96
--- NOTE | 2023-07-12 10:46 | WOUNDNOTE ---
wound photo: mid lower back
--- NOTE | 2023-07-12 13:09 | NURSING ---
PT IV INFILTRATED AT 0830. MELODY WHALEN CAME UP AT 1230 AND PLACED A 20 MANDO,2.5 INCH ACCUCATH IN PT RT ARM.
[2023-07-12] MEDS: 0.9% Saline Lock 10 ML Syringe IV ×2 (13:27→23:16)
--- NOTE | 2023-07-12 14:06 | PRO.PCM_ITS ---
Procedure Report Date of Procedure: 07/12/23 Assessment & Plan Assessment/Plan (1) Deep incisional surgical site infection: PLAN: PROCEDURE: IV Placement under Ultrasound Guidance PERFORMED BY: TRACY Colon INDICATION: IV access required. Poor venous access. Zosyn infusion every 8 until 07/16/2023. TECHNIQUE: Patient identity was verified with two patient identifiers. Hands were sanitized. The patient was positioned supine with right arm at 45 degrees. The patient's lower arm vasculature was assessed using ultrasound, and a midforearm dorsal vein was externally marked. The vein was suitable for insertion of a 20 gauge 2.5 inch extended dwell catheter. The sterile kit was opened with additional supplies dropped in. Mask and prep gloves were donned. The underdrape was placed under the patient's arm. The site was prepped with chlorhexidine, and tourniquet was loosely applied. Prep gloves were discarded, and hands were sanitized. Sterile gloves were donned, and the patient's arm was draped. The sterile kit was assembled with needless connector and loop flushed with sterile normal saline. The vein was then accessed using dynamic ultrasound guidance, and the catheter advanced easily. 1 attempt was required. The tourniquet was released. The flushed loop and needless connector were attached. Blood return was easily aspirated. 10 ml sterile normal saline was delivered via pulsatile flush, and the loop was clamped prior to removal of the syringe to pr event back flow. Skin was prepped and followed by application of a stat-lock and a clear dressing was applied to secure the IV. The patient tolerated the procedure well. Procedures Radiology Radiology Access Procedures: MIDL
[2023-07-12 16:00] VITALS: BP 100/54; PULSE 75; RESP 16; TEMP 36.3; O2SAT 94
[2023-07-12] MEDS: Atorvastatin Calcium 10 MG Tablet PO (23:24)
[2023-07-12] MEDS: hydrOXYzine PAM 25 MG Capsule PO (23:25)
[2023-07-13] VITALS: BP 115/53; PULSE 66
[2023-07-13] MEDS: Piperacil/Tazobactam 3.375 GM in 0.9% Normal Saline (50mL MB+) 50 ML IV ×3 (05:00→22:18)
[2023-07-13] MEDS: Menthol/Lanolin/Calamine/Znox 113 GM Tube 1 APPLIC TOPICAL ×3 (05:02→21:21)
[2023-07-13] MEDS: Acetaminophen 500 MG Tablet 1000 MG PO ×3 (05:03→21:22)
[2023-07-13] MEDS: oxyCODONE 5 MG Tablet PO ×3 (05:16→21:14)
[2023-07-13] MEDS: tiZANidine HCl 2 MG Tablet PO ×4 (05:17→23:58)
[2023-07-13 06:00] VITALS: BMI 39.9
[2023-07-13 06:17] LABS: Hemoglobin 9.7 g/dL (12.0-15.0)
[2023-07-13] MEDS: Juven (unflavored) Packet 1 PACKET PO ×2 (08:08→17:45)
[2023-07-13] MEDS: Polyethylene Glycol 3350 17 GM PACKET PO (08:08)
[2023-07-13] MEDS: Losartan Potassium 50 MG Tablet PO ×2 (08:09→22:31)
[2023-07-13] MEDS: cloNIDine HCl 0.1 MG Tablet PO ×2 (08:09→22:31)
[2023-07-13] MEDS: Nystatin Powder 15gm Bottle 1 APPLIC TOPICAL ×2 (08:09→22:32)
[2023-07-13] MEDS: amLODIPine 10 MG Tablet PO (08:10)
[2023-07-13] MEDS: Pantoprazole Sodium 40 MG Tablet PO ×2 (08:10→22:32)
[2023-07-13] MEDS: Sertraline 50 MG Tablet 150 MG PO (08:11)
[2023-07-13] MEDS: Senna/Docusate Sodium 1 Tablet 2 TABLET PO ×2 (08:11→22:32)
[2023-07-13] MEDS: Cholecalciferol (VIT D3) 25 MCG TABLET (1,000 UNITS) 50 MCG PO (08:11)
[2023-07-13] MEDS: Gabapentin 600 MG Tablet PO ×3 (08:17→17:50)
[2023-07-13 08:21] VITALS: BP 122/49; PULSE 68
--- NOTE | 2023-07-13 10:29 | NURSING ---
IN TO SEE PT. NEW ORDERS TO D/C PRN ZANAFLEX 2MG TO ZANAFLEX 2MG Q 6 HOURS SCHEDULED. RN AWARE
--- NOTE | 2023-07-13 11:15 | PHA.CONS_ITS ---
TCU RX Drug Regimen Review Subjective/Objective Subjective/Objective: Subjective: 67 YOF admitted to TCU in May. This is her June follow-up note to review medication list for the month of June as discharge is anticipated in July. Objective: Allergies hydrocodone (From Vicodin) Allergy (Verified 06/29/23 15:02) Anaphylaxis lorazepam (From Ativan) Allergy (Verified 06/29/23 15:02) Hives neomycin Allergy (Verified 06/29/23 15:02) Hives Current Medications Generic Name Dose Route Start Last Admin Trade Name Freq PRN Reason Stop Dose Admin Acetaminophen 1,000 mg 06/09/23 22:00 07/13/23 05:03 Acetaminophen 500 Mg Tablet PO 1,000 mg Q8 SALVADOR Administration Amlodipine Besylate 10 mg 06/10/23 10:00 07/13/23 08:10 Amlodipine 10 Mg Tablet PO 10 mg DAILY SALVADOR Administration Protocol Atorvastatin Calcium 10 mg 06/09/23 22:00 07/12/23 23:24 Atorvastatin Calcium 10 Mg Tablet PO 10 mg DAILY@2200 SALVADOR Administration Bisacodyl 10 mg 06/09/23 19:22 07/03/23 14:41 Bisacodyl 10 Mg Suppository RC 10 mg DAILY PRN Administration Constipation Calamine/Phenol 1 applic 06/11/23 14:00 07/13/23 05:02 Menthol/Lanolin/Calamine/Znox 113 Gm Tube TOPICAL 1 applic TID SALVADOR Administration Protocol Cholecalciferol 50 mcg 06/10/23 10:00 07/13/23 08:11 Cholecalciferol (Vit D3) 25 Mcg Tablet (1,000 Units) PO 50 mcg DAILY SALVADOR Administration Clonidine 0.1 mg 06/09/23 22:00 07/13/23 08:09 Clonidine Hcl 0.1 Mg Tablet PO 0.1 mg BID SALVADOR Administration Protocol Gabapentin 600 mg 06/09/23 17:45 07/13/23 08:17 Gabapentin 600 Mg Tablet PO 600 mg TIDCM SALVADOR Administration Hydroxyzine Pamoate 25 mg 06/09/23 22:00 07/12/23 23:25 Hydroxyzine Kaity 25 Mg Capsule PO 25 mg QHS SALVADOR Administration Sodium Chloride 250 mls @ 15 mls/hr 06/23/23 14:20 07/13/23 04:55 IV 0 mls/hr .[id number] PRN Infusion Additional IVPB Infusion Sodium Chloride 250 mls @ 15 mls/hr 06/23/23 14:20 07/10/23 18:52 IV Infused .[id number] PRN Infusion Saline Flush Piperacillin Sod/Tazobactam 50 mls @ 12.5 mls/hr 07/03/23 14:00 07/13/23 09:20 Sod 3.375 gm/ Sodium Chloride IV 07/16/23 23:59 Infused Q8 SALVADOR Infusion L-Arginine/L-Glutamine/Calcium HMB 1 packet 06/14/23 17:00 07/13/23 08:08 Terrance (Unflavored) Packet PO 1 packet BIDCM SALVADOR Administration Losartan Potassium 50 mg 06/10/23 10:00 07/13/23 08:09 Losartan Potassium 50 Mg Tablet PO 50 mg DAILY SALVADOR Administration Protocol Losartan Potassium 50 mg 06/14/23 22:00 07/12/23 23:24 Losartan Potassium 50 Mg Tablet PO 50 mg QHS SALVADOR Administration Protocol Nystatin 1 applic 07/04/23 22:00 07/13/23 08:09 Nystatin Powder 15gm Bottle TOPICAL 1 applic BID SALVADOR Administration Protocol Oxycodone HCl 5 mg 06/27/23 07:34 07/13/23 05:16 Oxycodone 5 Mg Tablet PO 5 mg Q4H PRN PRN Administration Pain Score 6-10 Pantoprazole Sodium 40 mg 06/28/23 22:00 07/13/23 08:10 Pantoprazole Sodium 40 Mg Tablet PO 12/29/23 19:02 40 mg BID SALVADOR Administration Polyethylene Glycol 17 gm 06/27/23 10:00 07/13/23 08:08 Polyethylene Glycol 3350 17 Gm Packet PO 17 gm BID SALVADOR Administration Senna/Docusate Sodium 2 tablet 06/09/23 22:00 07/13/23 08:11 Senna/Docusate Sodium 1 Tablet PO 2 tablet BID SAL[facility]ADOR Administration Sertraline HCl 150 mg 07/03/23 10:00 07/13/23 08:11 Sertraline 50 Mg Tablet PO 150 mg DAILY SALVADOR Administration Sodium Chloride 10 - 40 ml 06/23/23 14:20 07/12/23 23:16 0.9% Saline Lock 10 Ml Syringe IV 10 ml UD PRN Administration SALINE FLUSH Tizanidine HCl 2 mg 07/13/23 12:00 Tizanidine Hcl 2 Mg Tablet PO Q6 [facility] Problem List Deep incisional surgical site infection (Acute) Wound dehiscence (Acute) Gastric cardia ulcer (Acute) Cecal ulcer (Acute) Muscle spasm of back (Acute) Essential (primary) hypertension (Acute) Pseudogout (Acute) Status post lumbar discectomy (Acute) Intractable back pain (Acute) Depression (Acute) Debility (Acute) Morbid obesity (Acute) Neuropathic pain (Acute) Vitamin D deficiency (Acute) Hyperlipidemia (Acute) Vital Signs Temp Pulse Resp BP Pulse Ox O2 Del Method O2 Flow Rate 97.3 F L 68 16 122/49 H 94 Room Air 0 07/12/23 16:00 07/13/23 08:21 07/12/23 16:00 07/13/23 08:21 07/12/23 16:00 07/12/23 16:00 06/26/23 23:07 FiO2 21 06/26/23 23:07 Oxygen Flow Rate (L/min) 0 Oxygen Delivery Method Room Air Weight: 112.128 kg Body Mass Index (BMI) 39.9 Sodium 136 mmol/L (136-145) 07/07/23 05:22 Potassium 4.0 mmol/L (3.5-5.1) 07/07/23 05:22 Chloride 101 mmol/L (98-107) 07/07/23 05:22 Carbon Dioxide 29.0 mmol/L (21.0-32.0) 07/07/23 05:22 Anion Gap 6 (5-15) 07/07/23 05:22 BUN 18 mg/dL (7-18) 07/07/23 05:22 Creatinine 0.48 mg/dL (0.55-1.02) L 07/07/23 05:22 Est GFR (MDRD) Af Amer 166 mL/min (>60) 07/07/23 05:22 Est GFR (MDRD) Non-Af 137 mL/min (>60) 07/07/23 05:22 BUN/Creatinine Ratio 37.8 RATIO (10-20) H 07/07/23 05:22 Glucose 99 mg/dL (74-106) 07/07/23 05:22 Vancomycin Trough 19.2 ug/mL (5.0-15.0) H 07/03/23 00:30 Assessment/Plan: 1. Pain: acetaminophen 1000 mg PO Q8H, oxycodone 5 mg PO Q4H PRN pain. Please continue to monitor pain levels, for PRN oxycodone usage, for constipation, for respiratory depression, and for syncope/ataxia/falls. -The patient has been averaging 3-5 doses of oxycodone/ day. Pain appears managed at this time. 2. Ulcer: Zosyn 3.375g IV Q8h thru 07/16/23. ID is following patient care. Please continue to monitor for resolution of infection, microbiology data (no new micro, abx cover bacteria growing in cultures from 06/29). 3. Hypertension/edema: losartan 50 mg PO BID, amlodipine 10 mg PO daily, clonidine 0.1 mg PO BID. Please continue to monitor blood pressure (last 122/49 mmHg), heart rates (last 68 beats/min), renal function (serum creatinine = 0.48 mg/dL with creatinine clearance ~ 86 mL/min on 07/07/23), potassium levels (K = 4.0 mmol/L on 07/07/23), for lower extremity swelling, and for abdominal pain with clonidine administration. 4. Hyperlipidemia: atorvastatin 10 mg PO QHS. Please continue to monitor lipid levels (lipid panel done 06/13/23, labs WNL), and for myalgias. 5. Neuropathic pain: gabapentin 600 mg PO TID with meals. Please continue to monitor for neuropathic pain, renal function (serum creatinine = 0.48 mg/dL with creatinine clearance ~ 86 mL/min on 07/07/23), for lower extremity swelling, and for drowsiness/dizziness/falls. 6. Muscle spasms: tizanidine 2 mg PO Q8H PRN muscle spasms. Please continue to monitor for muscle spasms, for PRN medication usage, for dry mouth, dizziness, drowsiness, and constipation. 7. Insomnia: hydroxyzine pamoate 25 mg PO QHS. Please continue to monitor for insomnia, for drowsiness/dizziness, for dry mouth, constipation and urinary retention. 8. Vitamin D deficiency: cholecalciferol 50 mcg PO daily. Please continue to monitor for s/s of vitamin D deficiency, and vitamin D levels. 9. Skin irritation: Calmoseptine 1 application topically TID, Nystatin powder topically BID. Please continue to monitor for skin irritation and integrity. 10. Bowel: senna/docusate 2 tablets PO BID, Miralax 17g PO BID, bisacodyl 10 mg suppository [place] daily PRN. Please continue to monitor for PRN medication usage, for constipation and diarrhea. -The patient's last bowel movement was 07/12/23. Assessment/Plan for indications treated with psychotropic medications: 1. Depression: sertraline 150 mg PO daily. Please see provider notes regarding stable chronic local [employer] use GDR not recommended. Please continue to monitor for depression, for SI, for serotonin syndrome, sodium levels (Na = 136 mmol/L on 07/07/23), and for nausea/vomiting/diarrhea. Medical chart and medication regimen reviewed. The following medication irregularities or issues were identified: Date Date of Note:: 07/13/23
[2023-07-13] MEDS: 0.9% Saline Lock 10 ML Syringe IV ×2 (13:20→22:18)
[2023-07-13 15:11] VITALS: RESP 16; TEMP 36.3; O2SAT 96
--- NOTE | 2023-07-13 17:12 | CASEMGMT ---
Social Work SW received notification from [facility] that they are able to accept patient for halfway. SW met with patient to notify of acceptance. The patient informed SW that her niece, Juanita will be visiting facilities on 07/14/2023 to determine appropriate placement. Patient informed SW that she is interested in continuing rehab services at another facility. SW notified patient that referral was submitted for [facility] nursing [facility]. Patient informed SW that she will discuss placement with niece. SW will continue to follow to assist with placement. ERICKA Perez
--- NOTE | 2023-07-13 17:32 | PCM.PROGNOTE ---
Subjective Subjective [place] L4-L5 laminotomy discectomy about 1 month ago complicated by soft tissue infection, taken back to [place] for debridement and now on Abx with wound vac. She is non ambulatory. States she has significant baseline low back and right hip and thigh pain. The pain is most significant when laying flat. She describes it as sharp and spasmodic in nautre. She is a bit tearful today. SHe states oxycodone and the tizanidine help, but the tizanidine wears off. She is taking 2mg TID. She denies side effects from any of her pain medications. Objective Data Objective Data Vital Signs: Vital Signs Temp Pulse Resp BP Pulse Ox O2 Del Method O2 Flow Rate 97.4 F L 68 16 122/49 H 96 Room Air 0 07/13/23 15:11 07/13/23 08:21 07/13/23 15:11 07/13/23 08:21 07/13/23 15:11 07/13/23 15:11 06/26/23 23:07 FiO2 21 06/26/23 23:07 Oxygen Flow Rate (L/min) 0 Oxygen Delivery Method Room Air Weight: 112.219 kg Body Mass Index (BMI) 39.9 Intake & Output: Intake and Output for Last 24 Hours 07/11/23 07/12/23 07/13/23 23:59 23:59 23:59 Intake Total 1170.75 / 1170.75 633.04 / 633.04 962.5 / 962.5 Output Total 1100 / 1100 550 / 550 1000 / 1000 Balance 70.75 / 70.75 83.04 / 83.04 -37.5 / -37.5 Lab / Micro Data Attestation: I reviewed the patient's lab results. 07/13/23 05:26 07/07/23 05:22 Labs: Laboratory Results - last 24 hr 07/13/23 05:26: Hgb 9.7 L, Hct 32.0 L Micro: Microbiology 06/27/23 09:50 Urine Catheter - Catheter Urine Culture - Final Culture exhibits no growth. 06/26/23 20:27 Stool Stool Occult Blood (LUCINA) - Final Occult Blood Positive Radiography Diagnostic Testing: MRI: 06/28: IMPRESSION: 1. Screw loosening is suboptimal for evaluation on MRI lumbar spine due to signal distortion artifacts. CT is more helpful. 2. Recent fracture across the upper L5 vertebral body, pronounced central canal stenosis with an AP canal diameter of 4.4 mm despite left posterior laminectomy decompression surgery and severe stenosis of the left lateral recess due to prominent extruded and sequestered disc fragment. Limited this is coming from the L4-L5 disc space or coming from the L5-S1 disc space is difficult to ascertain. In my opinion, this was present previously. 06/05/2023. 3. Pronounced stenosis of the right L5-S1 intervertebral neural foramen with impingement of the right L5 nerve, mild anterolisthesis of L5 on S1 due to bilateral L5 pars defects and moderately pronounced central canal stenosis with an AP canal diameter of 5 mm. This level is unchanged. 4. Moderately pronounced central canal stenosis at L3-L4 disc space level with an AP canal diameter 5.3 mm and moderately pronounced stenosis of the bilateral intervertebral neural foramina with impingement of both L3 nerves. This level is unchanged. 5. Moderately pronounced central canal stenosis at L2-L3 disc space level with an AP canal diameter of 6.3 mm and moderate stenosis of the bilateral intervertebral neural foramina are unchanged. 6. Moderately pronounced asymmetric central canal stenosis at T12-L1 disc space level with an AP canal diameter 5.3 mm, prominent posterior midline disc protrusion and moderate stenosis of the bilateral intervertebral neural foramina due to posterior marginal spurs. This level is unchanged. 7. Moderate central canal stenosis at T11-T12 disc space level with an AP canal diameter of 7 mm, mild degenerative retrolisthesis of T11 on T12 and old anterior wedge compression fracture of the upper T12 vertebral body are unchanged. 8. Moderately pronounced central canal stenosis at T10-T11 disc space level with an AP canal diameter of 4 mm due to prominent posterior midline disc protrusion, pronounced stenosis of the right T10-T11 intervertebral neural foramen due to disc protrusion and moderate stenosis of the left intervertebral neural foramen are unchanged. 9. Metallic signal distortion artifacts occupying the right half of the central canal at T9-T10 disc space level. Physical Exam Const alert and oriented x3 Constitutional Narrative: Intermittently tearful, obese HEENT normocephalic Eyes EOMs intact bilaterally Resp normal respiratory effort Neuro oriented x3 Neuro Narrative: 3/5 hip flexion, 4/5 thorughout the lower extremities otheriwse. Assessment & Plan Assessment/Plan (1) Stenosis, spinal, lumbar: QUALIFIERS: Neurogenic claudication status: with neurogenic claudication Qualified Code(s): M48.062 - Spinal stenosis, lumbar region with neurogenic claudication (2) Status post lumbar discectomy: (3) Neuropathic pain: (4) Morbid obesity: PLAN: Plan 67 year old female with below past medical history hospitalized for intractable back pain 2/2 lumbar spinal stenosis, lumbar radiculopathy, underwent L4-5 left sided laminotomy, discectomy 06/08/[address] Cheatham, admitted to TCU with debility, here for rehabilitation, strengthening, prior to discharge home alone. Complicated by wound infection s/p debridement and washout. With wound vac. She has significant degenerative changes along with central canal lumbar stenosis, thoracic stenosis and spasms. Due to infection and would I would not recommend using steroids or interventional procedures at this time. -Spoke to Dr. Cheatham whom indicates the wound is slowly healing. -Patient taking tylenol 1000mg Q8 -Oxycodone 5mg Q4 with benefit. She denies side effects -Tizanidine 2mg TID PRN helpful and she describes significant spasm related pain, so increased to 2mg every 6 hours. She notes it helps for about 4-5 hours and then stops. Will increase frequency to combat this. -Consider increasing dose of tizanidine or other muscle relaxant. -Encouraged at length to be as mobile as possible and to pursue improved conditioning. -Discussed role of depression and pain and encouraged her to try and be more active and engage in activities to combat this. -Discussed role of weight loss in pain. -Gabapentin 600mg TID. -Bowel Regimen: Miralax 17gm bid, senna/colace 2 tablets bid, Dulcolax 10mg pr daily prn. -H/o gastric ulcers: avoid NSAIDS -Continue wound treatment -Instructed to follow up as outpatient after discharge should she be discharged soon.
[2023-07-13] MEDS: 0.9% Normal Saline (250mL Bag) 250 ML 15 ML IV (22:23)
[2023-07-13] MEDS: hydrOXYzine PAM 25 MG Capsule PO (22:31)
[2023-07-13] MEDS: Atorvastatin Calcium 10 MG Tablet PO (22:33)
[2023-07-13 22:43] VITALS: BP 124/56; PULSE 68
[2023-07-13 23:00] VITALS: PULSE 68; O2SAT 93
[2023-07-14] MEDS: oxyCODONE 5 MG Tablet PO ×4 (03:31→20:00)
[2023-07-14] MEDS: Piperacil/Tazobactam 3.375 GM in 0.9% Normal Saline (50mL MB+) 50 ML IV ×3 (05:02→21:20)
[2023-07-14] MEDS: Menthol/Lanolin/Calamine/Znox 113 GM Tube 1 APPLIC TOPICAL ×3 (05:03→21:28)
[2023-07-14] MEDS: Acetaminophen 500 MG Tablet 1000 MG PO ×3 (05:04→21:25)
[2023-07-14] MEDS: tiZANidine HCl 2 MG Tablet PO ×3 (05:05→17:48)
[2023-07-14 06:00] VITALS: BMI 39.9
[2023-07-14 08:04] VITALS: BP 138/69; PULSE 69; RESP 17; TEMP 37; O2SAT 96
[2023-07-14] MEDS: Juven (unflavored) Packet 1 PACKET PO ×2 (08:07→17:48)
[2023-07-14] MEDS: cloNIDine HCl 0.1 MG Tablet PO ×2 (08:07→21:26)
[2023-07-14] MEDS: Nystatin Powder 15gm Bottle 1 APPLIC TOPICAL ×2 (08:08→21:26)
[2023-07-14] MEDS: amLODIPine 10 MG Tablet PO (08:08)
[2023-07-14] MEDS: Losartan Potassium 50 MG Tablet PO ×2 (08:08→21:28)
[2023-07-14] MEDS: Polyethylene Glycol 3350 17 GM PACKET PO (08:08)
[2023-07-14] MEDS: Pantoprazole Sodium 40 MG Tablet PO ×2 (08:09→21:24)
[2023-07-14] MEDS: Cholecalciferol (VIT D3) 25 MCG TABLET (1,000 UNITS) 50 MCG PO (08:09)
[2023-07-14] MEDS: Sertraline 50 MG Tablet 150 MG PO (08:09)
[2023-07-14] MEDS: Senna/Docusate Sodium 1 Tablet 2 TABLET PO ×2 (08:09→21:25)
[2023-07-14] MEDS: Gabapentin 600 MG Tablet PO ×3 (08:11→17:48)
[2023-07-14] MEDS: 0.9% Normal Saline (250mL Bag) 250 ML 15 ML IV ×2 (15:09→21:19)
[2023-07-14] MEDS: 0.9% Saline Lock 10 ML Syringe IV ×3 (15:09→21:17)
[2023-07-14] MEDS: hydrOXYzine PAM 25 MG Capsule PO (21:25)
[2023-07-14] MEDS: Atorvastatin Calcium 10 MG Tablet PO (21:26)
[2023-07-15] MEDS: oxyCODONE 5 MG Tablet PO ×5 (00:15→19:55)
[2023-07-15] MEDS: tiZANidine HCl 2 MG Tablet PO ×4 (00:15→17:35)
[2023-07-15] MEDS: 0.9% Saline Lock 10 ML Syringe IV ×3 (00:16→22:13)
[2023-07-15] MEDS: Menthol/Lanolin/Calamine/Znox 113 GM Tube 1 APPLIC TOPICAL ×3 (05:01→22:03)
[2023-07-15] MEDS: Acetaminophen 500 MG Tablet 1000 MG PO ×3 (05:02→22:04)
[2023-07-15] MEDS: Piperacil/Tazobactam 3.375 GM in 0.9% Normal Saline (50mL MB+) 50 ML IV ×3 (05:08→22:13)
[2023-07-15] MEDS: 0.9% Normal Saline (250mL Bag) 250 ML 15 ML IV (05:08)
[2023-07-15] MEDS: Gabapentin 600 MG Tablet PO ×3 (08:08→17:34)
[2023-07-15] MEDS: Juven (unflavored) Packet 1 PACKET PO ×2 (08:10→17:35)
[2023-07-15] MEDS: Losartan Potassium 50 MG Tablet PO ×2 (09:18→22:05)
[2023-07-15] MEDS: cloNIDine HCl 0.1 MG Tablet PO ×2 (09:18→22:02)
[2023-07-15] MEDS: Pantoprazole Sodium 40 MG Tablet PO ×2 (09:19→22:02)
[2023-07-15] MEDS: Polyethylene Glycol 3350 17 GM PACKET PO ×2 (09:19→22:02)
[2023-07-15] MEDS: amLODIPine 10 MG Tablet PO (09:19)
[2023-07-15] MEDS: Senna/Docusate Sodium 1 Tablet 2 TABLET PO ×2 (09:20→22:01)
[2023-07-15] MEDS: Sertraline 50 MG Tablet 150 MG PO (09:20)
[2023-07-15] MEDS: Cholecalciferol (VIT D3) 25 MCG TABLET (1,000 UNITS) 50 MCG PO (09:20)
[2023-07-15] MEDS: Nystatin Powder 15gm Bottle 1 APPLIC TOPICAL ×2 (09:23→22:03)
[2023-07-15 14:46] VITALS: BP 134/64; PULSE 82; RESP 14; TEMP 36.8; O2SAT 97
--- NOTE | 2023-07-15 16:05 | NURSING ---
Addendum entered by Ruba Husain 07/19/23 13:00: Late Note from 07/16/23 MRI was cancelled d/t pt pain subsided per Dr. Karimi. Original Note: Pt asked for RN to come to room. This RN went into room upon entering pt was sobbing laying flat in bed. Pt stated she has been in 10 out of 10 pain and has taken all of her PRN medications. 1:1 on time given and listened to pt's concerns. Educated pt that she has been seen by pain management and they adjusted medications. Pt states the pain reimagine is still not working and the pain is going across her pelvis down into right leg. Suggested to apply heat to lower back and pt refused. Dr. Karimi updated N.O. received for Morphine PO 10mg q1h PRN and MRI w/wo contrast. Orders read back. Pt is medicare AB order was sent to MRI. This nurse also educated pt of importance of changing positions and sitting up in chair. Per Pt it is to painful to sit in chair. Pt has not been out of bed this shift so far.
[2023-07-15] MEDS: MorphINE SOLN 10 MG/0.5 ML PO.SYRINGE PO (22:00)
[2023-07-15] MEDS: Atorvastatin Calcium 10 MG Tablet PO (22:01)
[2023-07-15 22:05] VITALS: BP 121/56; PULSE 66
[2023-07-15] MEDS: hydrOXYzine PAM 25 MG Capsule PO (22:05)
[2023-07-16] MEDS: tiZANidine HCl 2 MG Tablet PO ×4 (00:08→17:16)
[2023-07-16] MEDS: Acetaminophen 500 MG Tablet 1000 MG PO ×3 (05:38→22:03)
[2023-07-16] MEDS: oxyCODONE 5 MG Tablet PO ×2 (05:39→13:18)
[2023-07-16] MEDS: Piperacil/Tazobactam 3.375 GM in 0.9% Normal Saline (50mL MB+) 50 ML IV ×3 (05:39→22:04)
[2023-07-16] MEDS: Menthol/Lanolin/Calamine/Znox 113 GM Tube 1 APPLIC TOPICAL ×3 (05:40→22:09)
[2023-07-16] MEDS: 0.9% Saline Lock 10 ML Syringe IV (05:40)
[2023-07-16] MEDS: Juven (unflavored) Packet 1 PACKET PO ×2 (07:55→17:16)
[2023-07-16] MEDS: Gabapentin 600 MG Tablet PO ×3 (07:55→17:16)
[2023-07-16] MEDS: Pantoprazole Sodium 40 MG Tablet PO ×2 (10:07→22:04)
[2023-07-16] MEDS: cloNIDine HCl 0.1 MG Tablet PO ×2 (10:08→22:03)
[2023-07-16] MEDS: Senna/Docusate Sodium 1 Tablet 2 TABLET PO ×2 (10:08→22:03)
[2023-07-16] MEDS: Losartan Potassium 50 MG Tablet PO ×2 (10:08→22:04)
[2023-07-16] MEDS: Cholecalciferol (VIT D3) 25 MCG TABLET (1,000 UNITS) 50 MCG PO (10:09)
[2023-07-16] MEDS: Sertraline 50 MG Tablet 150 MG PO (10:09)
[2023-07-16] MEDS: Polyethylene Glycol 3350 17 GM PACKET PO ×2 (10:10→22:02)
[2023-07-16] MEDS: amLODIPine 10 MG Tablet PO (10:10)
[2023-07-16] MEDS: Nystatin Powder 15gm Bottle 1 APPLIC TOPICAL ×2 (10:10→22:04)
[2023-07-16 14:20] VITALS: BP 112/52; PULSE 74; RESP 18; TEMP 36.3; O2SAT 96
[2023-07-16 14:48] VITALS: BMI 39.7
[2023-07-16] MEDS: hydrOXYzine PAM 25 MG Capsule PO (22:03)
[2023-07-16] MEDS: Atorvastatin Calcium 10 MG Tablet PO (22:04)
[2023-07-16 22:05] VITALS: BP 143/66
[2023-07-17] MEDS: tiZANidine HCl 2 MG Tablet PO ×5 (00:22→23:09)
[2023-07-17] MEDS: oxyCODONE 5 MG Tablet PO ×5 (02:17→23:07)
[2023-07-17 06:00] VITALS: BMI 39.4
[2023-07-17] MEDS: Acetaminophen 500 MG Tablet 1000 MG PO ×3 (06:12→22:07)
[2023-07-17] MEDS: Gabapentin 600 MG Tablet PO ×3 (07:58→17:07)
[2023-07-17] MEDS: Cholecalciferol (VIT D3) 25 MCG TABLET (1,000 UNITS) 50 MCG PO (07:58)
[2023-07-17] MEDS: cloNIDine HCl 0.1 MG Tablet PO ×2 (07:58→22:09)
[2023-07-17] MEDS: Losartan Potassium 50 MG Tablet PO ×2 (07:59→22:09)
[2023-07-17] MEDS: Sertraline 50 MG Tablet 150 MG PO (07:59)
[2023-07-17] MEDS: amLODIPine 10 MG Tablet PO (07:59)
[2023-07-17] MEDS: Nystatin Powder 15gm Bottle 1 APPLIC TOPICAL ×2 (08:00→22:08)
[2023-07-17] MEDS: Pantoprazole Sodium 40 MG Tablet PO ×2 (08:00→22:08)
[2023-07-17] MEDS: Menthol/Lanolin/Calamine/Znox 113 GM Tube 1 APPLIC TOPICAL ×3 (08:01→21:57)
[2023-07-17 09:00] VITALS: BP 113/57; PULSE 73; RESP 20; TEMP 36.6; O2SAT 96
[2023-07-17] MEDS: MorphINE SOLN 10 MG/0.5 ML PO.SYRINGE PO (09:30)
[2023-07-17] MEDS: Juven (unflavored) Packet 1 PACKET PO ×2 (09:30→17:07)
[2023-07-17 09:52] VITALS: PULSE 78; O2SAT 94
[2023-07-17 09:55] VITALS: BP 144/88; PULSE 78; RESP 14; TEMP 37.1; O2SAT 94
--- NOTE | 2023-07-17 10:43 | WOUNDNOTE ---
wound photo: mid lower back
--- NOTE | 2023-07-17 18:12 | CASEMGMT ---
Social Work SW met with patient at bedside to discuss discharge plans. Patient informed SW that her niece, Juanita was able to visit facility [facility]. Patient informed SW that she would like to discharge to facility no latter than . SW contacted [facility] via [employer] to informed of patients discharge date. [facility] informed SW that they are able to accept the patient for placement. SW will continue to follow to assist with arranging discharge to facility. SW informed patient that [facility] is able to accept patient on 07/20/2023 Patient complete Notice of Medicare Non-Coverage for current [facility] end date:07/19/2023; anticipated discharge on 07/20/2023. Patient provided verbal understanding of NOMNC and signed NOMNC. SW provided copy of NOMNC at bedside. SW notified Physician, Dr. Karimi Discharge: [facility] 07/20/2023 ERICKA Perez
--- NOTE | 2023-07-17 20:09 | DS.PCM_ITS ---
Providers Date of Admission: 06/09/23 Primary Care Physician: Dr. Alissa Doty MD Consultations 06/18/23 12:55 Consult: Onc/Wound/marine superintendent Routine Comment: Reason for Consult:: back incision,possable opening up,red 06/20/23 16:02 Consult: Onc/Wound/marine superintendent Routine Comment: Reason for Consult:: Superficial dehiscence of surgical wound Comments:: Please evaluate and treat as appropriate 06/27/23 07:32 Consult: Gastroenterology Routine Consulting Provider: [facility] Reason for Consult: Anemia, +hemoccult. EMERGENT Consult: No MD Notified: Yes Date Notified: 06/27/23 Time Notified: 09:47 Method of Notification: Text 06/29/23 07:45 Consult: Orthopedics Routine Consulting Provider: Kwasi Cheatham Reason for Consult: s/p lumbar surgery, incision draining. CT done, MRI pending. EMERGENT Consult: No MD Notified: Yes Date Notified: 06/29/23 Time Notified: 11:17 Method of Notification: Verbal Comments:: Dr. Cheatham in room to see patient 07/03/23 07:36 Consult: Infectious Disease Routine Consulting Provider: Ruy Zimmerman Reason for Consult: Wound status post debridment EMERGENT Consult: No MD Notified: Yes Date Notified: 07/03/23 Time Notified: 07:36 Method of Notification: Text 07/12/23 17:07 Consult: Pain Management Routine Consulting Provider: William Panchal Reason for Consult: LBP. EMERGENT Consult: No MD Notified: Yes Date Notified: 07/12/23 Time Notified: 17:08 Method of Notification: Answering Service Reason For Visit: INTRACTABLE BACK PAIN Diagnosis Discharge Diagnosis (1) Stenosis, spinal, lumbar: Status: Resolved Code(s): M48.061 - Spinal stenosis, lumbar region without neurogenic claudication Qualifiers: Neurogenic claudication status: with neurogenic claudication Qualified Code(s): M48.062 - Spinal stenosis, lumbar region with neurogenic claudication (2) Status post lumbar discectomy: Status: Acute Code(s): Z98.890 - Other specified postprocedural states (3) Neuropathic pain: Status: Acute Code(s): M79.2 - Neuralgia and neuritis, unspecified (4) Morbid obesity: Status: Acute Code(s): E66.01 - Morbid (severe) obesity due to excess calories Plan 67 year old female with below past medical history hospitalized for intractable back pain 2/2 lumbar spinal stenosis, lumbar radiculopathy, underwent L4-5 left sided laminotomy, discectomy 06/08/[address] Cheatham, admitted to TCU with debility, here for rehabilitation, strengthening, prior to discharge home alone. * Debility - PT/OT. * Pain - Tylenol 1000mg q8, Oxycodone 5mg q4h prn. * Bowel - Miralax 17gm bid, senna/colace 2 tablets bid, Dulcolax 10mg pr daily prn. * Adult immunization - Administer pneumonia vaccine, covid vaccine, flu vaccine as appropriate. * DVT prophylaxis - Hold. * Hypertension - Losartan 50mg AM, 50mg QHS, Amlodipine 10mg daily, Clonidine 0.1mg bid. * Hyperlipidemia - Atorvastatin 10mg qhs. * Vitamin D deficiency - D3 25mcg daily. * Lumbar spinal stenosis s/p surgery - Decadron taper. * Neuropathic pain - Gabapentin 600ng tidcm. * Insomnia - Hydroxyzine 25mg qhs. 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 * Muscle spasm - Tizanidine 2mg q8 prn. * Gastric ulcers - Pantoprazole 40mg bid. * Skin irritation - Calmoseptine topical bid. * Lumbar abscess s/p debridement - wound VAC, Zosyn 3.375gm iv q8 via PICC, culture growing PsA, Enterococcus, Terrance 1 packet bidcm. Medications at Discharge Home Medications atorvastatin 10 mg tablet 10 mg PO DAILY@2200 Cholesterol 12/08/20 cholecalciferol (vitamin D3) 25 mcg (1,000 unit) tablet (Vitamin D3) 2,000 unit PO DAILY Supplement 12/08/20 hydroxyzine pamoate 25 mg capsule 25 mg PO QHS anxiety 30 days #30 caps 01/11/21 amlodipine 10 mg tablet 10 mg PO DAILY heart 06/02/23 acetaminophen 500 mg tablet 1,000 mg (2 x 500 mg) PO Q8 severe pain #0 tabs 06/09/23 gabapentin 600 mg tablet 600 mg PO TIDCM nerve pain #0 tabs 06/09/23 sennosides 8.6 mg-docusate sodium 50 mg tablet (Stool Softener-Stimulant Laxative) 2 tab PO BID constipation #0 tabs 06/09/23 arginine 7 gram-glutam 7 gram-CaHMB 1.5 [id number]-min oral pwd pkt (Terrance (with collagen)) 1 packet PO BIDCM #0 ea 07/17/23 bisacodyl 10 mg rectal suppository 10 mg NM DAILY PRN Constipation #0 ea 07/17/23 clonidine HCl 0.1 mg tablet 0.1 mg PO BID #0 tabs 07/17/23 losartan 50 mg tablet 50 mg PO DAILY #0 tabs 07/17/23 losartan 50 mg tablet 50 mg PO QHS #0 tabs 07/17/23 menthol 0.44 %-zinc oxide 20.6 % topical ointment (Calmoseptine) 1 applic topical TID #0 grams 07/17/23 nystatin 100,000 unit/gram topical powder (Nyamyc) 1 applic topical BID #0 grams 07/17/23 oxycodone 5 mg tablet 5 mg PO Q4H PRN PRN Pain Score 6-10 3 days #18 tabs 07/17/23 pantoprazole 40 mg tablet,delayed release 40 mg PO BID #0 tabs 07/17/23 sertraline 50 mg tablet 150 mg (3 x 50 mg) PO DAILY #0 tabs 07/17/23 tizanidine 2 mg tablet 2 mg PO Q6 #0 tabs 07/17/23 Hospital Course Operations - (See below.) Procedures Colonoscopy and EGD Summary of Care Provided Minutes Spent on Discharge: 35 Hospital Course: 67 year old female with below past medical history hospitalized for intractable back pain 2/2 lumbar spinal stenosis, lumbar radiculopathy, underwent L4-5 left sided laminotomy, discectomy 06/08/[address] Cheatham, admitted to TCU with debility, here for rehabilitation, strengthening, prior to discharge home alone. 06/28/2023 Dr. Patel EGD: Impression: - Normal esophagus. - Oozing gastric ulcers with pigmented material. Treated with a heater probe. Biopsied. - No gross lesions in the first portion of the duodenum. 06/28/2023 Dr. Patel colonoscopy: Impressions : - Preparation of the colon was fair. - Diverticulosis in the recto-sigmoid colon and in the sigmoid colon. - A single (solitary) ulcer in the cecum. Treated with a heater probe. Biopsied. - Stool in the rectum, in the recto-sigmoid colon, in the transverse colon and in the cecum. 06/30/2023 Dr. Cheatham Surgery: Lumbar surgical irrigation debridement, superficial and deep, CPT 68444 Disharge to [facility] 07/20/2023, intermediate, part B therapies. Physical Exam Const alert, oriented x3 and no apparent distress General Appearance: cooperative HEENT normocephalic and head/scalp atraumatic Eyes PERRL and EOMs intact bilaterally Neck supple and No nodes Resp normal air movement and clear to auscultation bilaterally Cardio regular rate and regular rhythm GI soft to palpation, non-tender and non-distended Extremity normal capillary refill General Extremity: edema Skin no rashes or lesions noted Skin Narrative: reviewed wound photos General Skin Exam: no breakdown Neuro CN's II-XII intact bilaterally Psych affect normal Appearance: appropriate Weight / BMI Weight Weight: 110.949 kg Body Mass Index (BMI) 39.4 ABG / Lab / Microbiology Data 07/13/23 05:26 07/07/23 05:22 Microbiology: Microbiology 06/27/23 09:50 Urine Catheter - Catheter Urine Culture - Final Culture exhibits no growth. 06/26/23 20:27 Stool Stool Occult Blood (LUCINA) - Final Occult Blood Positive D/C Instructions Discharge Diet: No restrictions Discharge Activity: Return to Normal Activity, May Shower and Use Walker Weight Bearing Status: Weight bearing as tolerated Call your doctor if you observe: Fever of 101 or Higher, Inability to urinate, Inability to have a bowel movement, Shortness of breath, Dizziness, Fainting spells, Swelling in the ankles, Chest pain and Uncontrolled pain Additional Instructions: Discharge to [facility] 07/20/2023, intermediate, part B therapies. Please Follow Up With: Kwasi Cheatham MD When: As scheduled. Meaningful Use Info Meaningful Use Meaningful Use Diagnoses (Choose all that apply): None applicable Ischemic Stroke Statin Dosing Therapy Reference: STATIN DOSE THERAPY REFERENCE: * Patients > 75 years receive moderate or high dose statin therapy. * Patients 75 years or YOUNGER should receive HIGH intensity statin dose unless contraindicated. You will be required to document reason for non-treatment if statin daily dose does not meet guidelines. HIGH DOSE STATIN THERAPY DAILY Atorvastatin > than or = to 40 mg Rosuvastatin > than or = to 20 mg Amlodipine + Atorvastatin > than or = to 2.5/40 mg Ezetimibe + Simvastatin 10/80 mg Simvastatin 80mg Discharge Plan Admission Admit Date/Time: 06/09/23 16:32 Primary Reason for Your Visit: Debility. Attending Provider: Darrel Karimi Chi Primary Care Provider: Alissa Doty Consulting Providers: Ruy Zimmerman; William Panchal Discharge Orders/Prescriptions Prescriptions: New clonidine HCl 0.1 mg Tablet 0.1 mg PO BID Qty: 0 0RF bisacodyl 10 mg Suppository 10 mg NM DAILY PRN (Reason: Constipation) Qty: 0 0RF menthol-zinc oxide [Calmoseptine] 0.44-20.6 % Ointment 1 applic topical TID Qty: 0 0RF Protocol: *Topical Application Instructions APPLICATION INSTRUCTIONS: apply b\l buttock tid Terrance (with collagen) 7-7-1.5 gram Powder In Packet 1 packet PO BIDCM Qty: 0 0RF nystatin [Nyamyc] 100,000 unit/gram Powder 1 applic topical BID Qty: 0 0RF Protocol: *Topical Application Instructions APPLICATION INSTRUCTIONS: UNDER BREASTS,ABDOMAL FOLDS losartan 50 mg Tablet 50 mg PO DAILY Qty: 0 0RF losartan 50 mg Tablet 50 mg PO QHS Qty: 0 0RF tizanidine 2 mg Tablet 2 mg PO Q6 Qty: 0 0RF pantoprazole 40 mg Tablet,Delayed Release (Dr/Ec) 40 mg PO BID Qty: 0 0RF sertraline 50 mg Tablet 150 mg PO DAILY Qty: 0 0RF oxycodone 5 mg Tablet 5 mg PO Q4H PRN PRN (Reason: Pain Score 6-10) 3 Days Qty: 18 0RF Continued atorvastatin 10 MG tablet 10 mg PO DAILY@2200 cholecalciferol (vitamin D3) [Vitamin D3] 1,000 UNIT tablet 2,000 unit PO DAILY hydroxyzine pamoate 25 mg Capsule 25 mg PO QHS 30 Days Qty: 30 0RF Patient Comments: PT UNSURE IF SHE TAKES THIS MED amlodipine 10 mg tablet 10 mg PO DAILY sennosides-docusate sodium [Stool Softener-Stimulant Laxat] 8.6-50 mg Tablet 2 tab PO BID Qty: 0 0RF gabapentin 600 mg Tablet 600 mg PO TIDCM Qty: 0 0RF acetaminophen 500 mg Tablet 1,000 mg PO Q8 Qty: 0 0RF Rx Instructions: 3 times daily for 1 week and then 3 times daily as needed for severe pain Discontinued diclofenac sodium [Voltaren Arthritis Pain] 1 % Gel 1 ea TOPICAL Q6H sertraline 100 MG tablet 100 mg PO DAILY ketoconazole 2 % cream 1 applic topical DAILY tizanidine 2 mg Tablet 2 mg PO Q8H PRN PRN (Reason: muscle spasms) Qty: 0 0RF oxycodone 5 mg Tablet 2.5 - 5 mg PO Q4H PRN PRN (Reason: Pain Score 6-10) Qty: 0 0RF losartan [Cozaar] 50 mg tablet 50 mg PO BID polyethylene glycol 3350 [Miralax] 17 gram/dose powder 17 g PO DAILY pantoprazole 40 mg tablet,delayed release (DR/EC) 40 mg PO BID Referrals / Follow Up: Kwasi Cheatham MD [Med Staff - Active Staff] - (Follow-up one month from 06/20/23) Alissa Doty MD [Primary Care Provider] - Disposition Disposition (needs filled in before D/C Order can be placed): NonSkilled NH/Intermed Care
--- NOTE | 2023-07-17 20:19 | TREXTCAR_ITS ---
Diet Diet Order/Speech Therapy: 06/10/23 11:00 Diet: Cardiac - Heart Healthy Is pt able to select menu?: Yes Routine Orders/Code Status Code Status: DNRCC-A (No intubation.) Wound(s) L Buttocks: Wound Type: Shearing Dressing Change: TRIAD CREAM APPLIED L Posterior Thigh: Wound Type: Abrasion R arm: Wound Type: Scab Mid Lower Back: Wound Type: Open Surgical Wound Dressing Change: KCI wound VAC RT UPPER THIGH: Wound Type: Abrasion Therapies Weight Bearing: Weight bearing as tolerated Extremity Affected:: Bilateral Lower Physical Therapy: Eval and Treat Occupational Therapy: Eval and Treat Problem/Diagnosis (1) Stenosis, spinal, lumbar: Status: Resolved Code(s): M48.061 - Spinal stenosis, lumbar region without neurogenic claudication (2) Status post lumbar discectomy: Status: Acute Code(s): Z98.890 - Other specified postprocedural states (3) Neuropathic pain: Status: Acute Code(s): M79.2 - Neuralgia and neuritis, unspecified (4) Morbid obesity: Status: Acute Code(s): E66.01 - Morbid (severe) obesity due to excess calories Plan 67 year old female with below past medical history hospitalized for intractable back pain 2/2 lumbar spinal stenosis, lumbar radiculopathy, underwent L4-5 left sided laminotomy, discectomy 06/08/[address] Cheatham, admitted to TCU with debility, here for rehabilitation, strengthening, prior to discharge home alone. * Debility - PT/OT. * Pain - Tylenol 1000mg q8, Oxycodone 5mg q4h prn. * Bowel - Miralax 17gm bid, senna/colace 2 tablets bid, Dulcolax 10mg pr daily prn. * Adult immunization - Administer pneumonia vaccine, covid vaccine, flu vaccine as appropriate. * DVT prophylaxis - Hold. * Hypertension - Losartan 50mg AM, 50mg QHS, Amlodipine 10mg daily, Clonidine 0.1mg bid. * Hyperlipidemia - Atorvastatin 10mg qhs. * Vitamin D deficiency - D3 25mcg daily. * Lumbar spinal stenosis s/p surgery - Decadron taper. * Neuropathic pain - Gabapentin 600ng tidcm. * Insomnia - Hydroxyzine 25mg qhs. 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 * Muscle spasm - Tizanidine 2mg q8 prn. * Gastric ulcers - Pantoprazole 40mg bid. * Skin irritation - Calmoseptine topical bid. * Lumbar abscess s/p debridement - wound VAC, Zosyn 3.375gm iv q8 via PICC, culture growing PsA, Enterococcus, Terrance 1 packet bidcm. Allergies/Procedures Done in Hospital Allergies hydrocodone (From Vicodin) Allergy (Verified 06/29/23 15:02) Anaphylaxis lorazepam (From Ativan) Allergy (Verified 06/29/23 15:02) Hives neomycin Allergy (Verified 06/29/23 15:02) Hives Procedures: None Type of Care/Length of Stay Estimated LOS: Convalescent Care Less Than 30 days Type of Care Needed: Intermediate Rehab Potential: Poor Prognosis: Fair Additional Orders/Day of Discharge Day of Discharge: 07/20/23 Dietary and Speech Recommendations Dietitian Recommendations/Changes: Continue Cardiac as ordered Continue Terrance bid to help w/ wound healing L buttock and surgical incision to lower back Follow Up Care Please follow up with your Primary Care Physician in: Alissa Norris Please Follow Up With: Kwasi Cheatham MD When: 2 weeks Discharge Plan Admission Admit Date/Time: 06/09/23 16:32 Primary Reason for Your Visit: Debility. Attending Provider: Darrel Karimi Chi Primary Care Provider: Alissa Doty Consulting Providers: Ruy Zimmerman; William Panchal Discharge Orders/Prescriptions Prescriptions: New clonidine HCl 0.1 mg Tablet 0.1 mg PO BID Qty: 0 0RF bisacodyl 10 mg Suppository 10 mg MD DAILY PRN (Reason: Constipation) Qty: 0 0RF menthol-zinc oxide [Calmoseptine] 0.44-20.6 % Ointment 1 applic topical TID Qty: 0 0RF Protocol: *Topical Application Instructions APPLICATION INSTRUCTIONS: apply b\l buttock tid Terrance (with collagen) 7-7-1.5 gram Powder In Packet 1 packet PO BIDCM Qty: 0 0RF nystatin [Nyamyc] 100,000 unit/gram Powder 1 applic topical BID Qty: 0 0RF Protocol: *Topical Application Instructions APPLICATION INSTRUCTIONS: UNDER BREASTS,ABDOMAL FOLDS losartan 50 mg Tablet 50 mg PO DAILY Qty: 0 0RF losartan 50 mg Tablet 50 mg PO QHS Qty: 0 0RF tizanidine 2 mg Tablet 2 mg PO Q6 Qty: 0 0RF pantoprazole 40 mg Tablet,Delayed Release (Dr/Ec) 40 mg PO BID Qty: 0 0RF sertraline 50 mg Tablet 150 mg PO DAILY Qty: 0 0RF oxycodone 5 mg Tablet 5 mg PO Q4H PRN PRN (Reason: Pain Score 6-10) 3 Days Qty: 18 0RF Continued atorvastatin 10 MG tablet 10 mg PO DAILY@2200 cholecalciferol (vitamin D3) [Vitamin D3] 1,000 UNIT tablet 2,000 unit PO DAILY hydroxyzine pamoate 25 mg Capsule 25 mg PO QHS 30 Days Qty: 30 0RF Patient Comments: PT UNSURE IF SHE TAKES THIS MED amlodipine 10 mg tablet 10 mg PO DAILY sennosides-docusate sodium [Stool Softener-Stimulant Laxat] 8.6-50 mg Tablet 2 tab PO BID Qty: 0 0RF gabapentin 600 mg Tablet 600 mg PO TIDCM Qty: 0 0RF acetaminophen 500 mg Tablet 1,000 mg PO Q8 Qty: 0 0RF Rx Instructions: 3 times daily for 1 week and then 3 times daily as needed for severe pain Discontinued diclofenac sodium [Voltaren Arthritis Pain] 1 % Gel 1 ea TOPICAL Q6H sertraline 100 MG tablet 100 mg PO DAILY ketoconazole 2 % cream 1 applic topical DAILY tizanidine 2 mg Tablet 2 mg PO Q8H PRN PRN (Reason: muscle spasms) Qty: 0 0RF oxycodone 5 mg Tablet 2.5 - 5 mg PO Q4H PRN PRN (Reason: Pain Score 6-10) Qty: 0 0RF losartan [Cozaar] 50 mg tablet 50 mg PO BID polyethylene glycol 3350 [Miralax] 17 gram/dose powder 17 g PO DAILY pantoprazole 40 mg tablet,delayed release (DR/EC) 40 mg PO BID Referrals / Follow Up: Kwasi Cheatham MD [Med Staff - Active Staff] - (Follow-up one month from 06/20/23) Alissa Doty MD [Primary Care Provider] - Disposition Disposition (needs filled in before D/C Order can be placed): NonSkilled NH/Intermed Care (1) Stenosis, spinal, lumbar Qualifiers: Neurogenic claudication status: with neurogenic claudication Qualified Code(s): M48.062 - Spinal stenosis, lumbar region with neurogenic claudication
[2023-07-17 21:00] VITALS: BP 118/60; PULSE 78; RESP 16; TEMP 36.2; O2SAT 97
[2023-07-17] MEDS: Polyethylene Glycol 3350 17 GM PACKET PO (22:05)
[2023-07-17] MEDS: Senna/Docusate Sodium 1 Tablet 2 TABLET PO (22:07)
[2023-07-17] MEDS: Atorvastatin Calcium 10 MG Tablet PO (22:09)
[2023-07-17] MEDS: hydrOXYzine PAM 25 MG Capsule PO (22:10)
[2023-07-18 01:10] VITALS: PULSE 78; RESP 16; O2SAT 97
[2023-07-18] MEDS: Menthol/Lanolin/Calamine/Znox 113 GM Tube 1 APPLIC TOPICAL ×3 (05:14→23:06)
[2023-07-18] MEDS: oxyCODONE 5 MG Tablet PO ×3 (05:20→23:14)
[2023-07-18] MEDS: Acetaminophen 500 MG Tablet 1000 MG PO ×3 (05:22→23:07)
[2023-07-18] MEDS: tiZANidine HCl 2 MG Tablet PO ×4 (05:23→23:09)
[2023-07-18 06:00] VITALS: BMI 39.3
[2023-07-18] MEDS: Juven (unflavored) Packet 1 PACKET PO ×2 (08:34→17:48)
[2023-07-18] MEDS: Sertraline 50 MG Tablet 150 MG PO (08:35)
[2023-07-18] MEDS: Cholecalciferol (VIT D3) 25 MCG TABLET (1,000 UNITS) 50 MCG PO (08:35)
[2023-07-18] MEDS: Senna/Docusate Sodium 1 Tablet 2 TABLET PO (08:37)
[2023-07-18] MEDS: amLODIPine 10 MG Tablet PO (08:37)
[2023-07-18] MEDS: Pantoprazole Sodium 40 MG Tablet PO ×2 (08:37→23:08)
[2023-07-18] MEDS: cloNIDine HCl 0.1 MG Tablet PO ×2 (08:38→23:08)
[2023-07-18] MEDS: Losartan Potassium 50 MG Tablet PO ×2 (08:38→23:09)
[2023-07-18] MEDS: Nystatin Powder 15gm Bottle 1 APPLIC TOPICAL ×2 (08:38→23:06)
[2023-07-18] MEDS: Gabapentin 600 MG Tablet PO ×3 (08:56→17:48)
[2023-07-18 08:58] VITALS: BP 116/57; PULSE 74
[2023-07-18 13:47] VITALS: BP 131/63; PULSE 75; RESP 12; TEMP 36.8; O2SAT 94
[2023-07-18] MEDS: MorphINE SOLN 10 MG/0.5 ML PO.SYRINGE PO (14:58)
--- NOTE | 2023-07-18 15:22 | NURSING ---
PT IS BEING D/C ON 07/20/23 TO [facility]. CALLED AND OFFICE TO LET THEM KNOW THAT PT IS BEING D/[facility] AND THAT PT IS IN MORE PAIN IN THIGH AND HIP AND NOW IS ON MORPHINE IN CASE THEY WOULD LIKE TO SEE PT BEFORE SHE LEAVES. RN AWARE
[2023-07-18 16:10] VITALS: BMI 39.3
[2023-07-18 23:00] VITALS: BP 141/67; PULSE 78
[2023-07-18] MEDS: Polyethylene Glycol 3350 17 GM PACKET PO (23:07)
[2023-07-18] MEDS: hydrOXYzine PAM 25 MG Capsule PO (23:10)
[2023-07-18] MEDS: Atorvastatin Calcium 10 MG Tablet PO (23:10)
[2023-07-19] MEDS: oxyCODONE 5 MG Tablet PO ×3 (04:18→17:37)
[2023-07-19] MEDS: Menthol/Lanolin/Calamine/Znox 113 GM Tube 1 APPLIC TOPICAL ×2 (04:20→21:12)
[2023-07-19 06:00] VITALS: BMI 39.3
[2023-07-19] MEDS: Acetaminophen 500 MG Tablet 1000 MG PO ×3 (06:51→21:14)
[2023-07-19] MEDS: tiZANidine HCl 2 MG Tablet PO ×4 (06:51→23:09)
[2023-07-19] MEDS: Gabapentin 600 MG Tablet PO ×3 (06:51→17:38)
--- NOTE | 2023-07-19 08:57 | CASEMGMT ---
Addendum entered by Halima Gilliam 07/19/23 15:01: NELLY arranged discharge transportation [facility] via stretcher for 07/20/2023 at 12PM. Patient has been notified Original Note: Social Work SW completed patient's PASSR for [facility]. ERICKA Perez
[2023-07-19] MEDS: Juven (unflavored) Packet 1 PACKET PO ×2 (09:05→17:32)
[2023-07-19] MEDS: cloNIDine HCl 0.1 MG Tablet PO ×2 (09:09→21:12)
[2023-07-19] MEDS: Sertraline 50 MG Tablet 150 MG PO (09:10)
[2023-07-19] MEDS: Cholecalciferol (VIT D3) 25 MCG TABLET (1,000 UNITS) 50 MCG PO (09:11)
[2023-07-19] MEDS: amLODIPine 10 MG Tablet PO (09:12)
[2023-07-19] MEDS: Nystatin Powder 15gm Bottle 1 APPLIC TOPICAL ×2 (09:12→21:11)
[2023-07-19] MEDS: Losartan Potassium 50 MG Tablet PO ×2 (09:12→21:13)
[2023-07-19] MEDS: Pantoprazole Sodium 40 MG Tablet PO ×2 (09:13→21:13)
[2023-07-19 09:17] VITALS: BP 138/53; PULSE 69
--- NOTE | 2023-07-19 10:56 | NURSING ---
NAHUMRN/WOUND NURSE TOOK WOUND VAC OFF TODAY DUE TO PT D/C TOMORROW TO CORRECTION AND TO GIVE AREA OF SKIN A BRAKE FROM TAPE. SEE NEW ORDER IF NEED DRESSING CHANGE.RN AWARE
[2023-07-19 14:31] VITALS: BP 100/60; PULSE 69; RESP 16; TEMP 36.7; O2SAT 90
--- NOTE | 2023-07-19 18:25 | NURSING ---
IN TO SEE PT TODAY. NO NEW ORDERS.
[2023-07-19] MEDS: Atorvastatin Calcium 10 MG Tablet PO (21:13)
[2023-07-19] MEDS: Senna/Docusate Sodium 1 Tablet 2 TABLET PO (21:14)
[2023-07-19] MEDS: hydrOXYzine PAM 25 MG Capsule PO (21:14)
[2023-07-20] MEDS: oxyCODONE 5 MG Tablet PO ×2 (01:26→10:17)
[2023-07-20] MEDS: Acetaminophen 500 MG Tablet 1000 MG PO (05:18)
[2023-07-20] MEDS: Menthol/Lanolin/Calamine/Znox 113 GM Tube 1 APPLIC TOPICAL (05:18)
[2023-07-20] MEDS: tiZANidine HCl 2 MG Tablet PO ×2 (05:18→11:02)
[2023-07-20] MEDS: cloNIDine HCl 0.1 MG Tablet PO (10:09)
[2023-07-20] MEDS: Gabapentin 600 MG Tablet PO (10:09)
[2023-07-20] MEDS: Juven (unflavored) Packet 1 PACKET PO (10:09)
[2023-07-20] MEDS: Pantoprazole Sodium 40 MG Tablet PO (10:10)
[2023-07-20] MEDS: Losartan Potassium 50 MG Tablet PO (10:10)
[2023-07-20] MEDS: amLODIPine 10 MG Tablet PO (10:10)
[2023-07-20] MEDS: Sertraline 50 MG Tablet 150 MG PO (10:11)
[2023-07-20] MEDS: Cholecalciferol (VIT D3) 25 MCG TABLET (1,000 UNITS) 50 MCG PO (10:11)
[2023-07-20] MEDS: Senna/Docusate Sodium 1 Tablet 2 TABLET PO (10:11)
[2023-07-20] MEDS: Nystatin Powder 15gm Bottle 1 APPLIC TOPICAL (10:18)
[2023-07-20] MEDS: MorphINE SOLN 10 MG/0.5 ML PO.SYRINGE PO (11:01)
--- NOTE | 2023-07-20 11:24 | CASEMGMT ---
Social Work SW met with patient at bedside to review discharge and complete discharge MDS. Patient informed SW that she is in pain. RN presented at bedside to provide pain medications. Patient completed BIM () and PhQ-9 (); Patient's score for PhQ-9 increased for severe depression. SW explored patient responses for PhQ-9. Patient indicated that she was in severe pain and due to uncontrolled pain, she does has lost interest in doing things. Patient informed SW that she has felt depressed due to pain and current medical decline. SW engaged in discussion regarding pain management and follow up with discussions care. Patient informed SW that she has a follow up appointment with a physician regarding pain management, but he is the physician who initially prescribed regimen. SW encouraged patient to discuss concerns regarding current pain management with physician at upcoming appointment. Patient informed SW that she will advocate for self. Patient informed SW that her current depressive state has caused a decline in eating, mood, motivation, and outlook on quality of life. Patient informed SW that if her pain management improves, she could engage with therapy appropriately and feel better about self. Patient informed SW that she is pushing herself to sit up more and get in the recliner to support better habit of care. SW explored positive responses and encouraged patient with positive reinforcement. Patient is currently prescribed Zoloft. Patient was previously provided mental health resources. Patient declined additional support. Patient would like to engage in further pain management support for left hip and leg spasm; back; right hip. Patient was discharged to [facility] for continued rehabilitation ERICKA Perez
--- NOTE | 2023-07-20 12:35 | NURSING ---
Patient transfers by cot at this time to [facility]. Discharge packet sent with patient and report called to Mona at [facility]. Pain medication administered prior to transport and patient reports some relief.
[2023-07-20 12:36] VITALS: BP 115/53; PULSE 71; RESP 16; TEMP 36.9; O2SAT 95
== END 2023-07-20 12:25 | disposition skilled nursing facility (03) | DRG 559 ==
PROVIDERS: Orthopaedic Surgery Orthopaedic Surgery of the Spine; Admitting Provider Family Medicine Geriatric Medicine; PCP Internal Medicine; Referring Provider Family Medicine Geriatric Medicine; Visit Provider Family Medicine Geriatric Medicine
DX: Z47.89 Encounter for other orthopedic aftercare (principal); K25.4 Chronic or unspecified gastric ulcer with hemorrhage; K63.3 Ulcer of intestine; L02.219 Cutaneous abscess of trunk, unspecified; Z68.41 Body mass index [BMI] 40.0-44.9, adult; T81.42XA Infection following a procedure, deep incisional surgical site, initial encounter; T81.31XA Disruption of external operation (surgical) wound, not elsewhere classified, initial encounter; N39.0 Urinary tract infection, site not specified; D64.9 Anemia, unspecified; B35.4 Tinea corporis; B96.5 Pseudomonas (aeruginosa) (mallei) (pseudomallei) as the cause of diseases classified elsewhere; J44.9 Chronic obstructive pulmonary disease, unspecified; E66.01 Morbid (severe) obesity due to excess calories; I10 Essential (primary) hypertension; F32.A Depression, unspecified; M48.062 Spinal stenosis, lumbar region with neurogenic claudication; E55.9 Vitamin D deficiency, unspecified; E78.5 Hyperlipidemia, unspecified; M54.16 Radiculopathy, lumbar region; M62.830 Muscle spasm of back; M19.90 Unspecified osteoarthritis, unspecified site; F41.9 Anxiety disorder, unspecified; K57.30 Diverticulosis of large intestine without perforation or abscess without bleeding; M51.16 Intervertebral disc disorders with radiculopathy, lumbar region; G47.00 Insomnia, unspecified; Z87.891 Personal history of nicotine dependence; Z79.52 Long term (current) use of systemic steroids; Z79.899 Other long term (current) drug therapy; Z99.3 Dependence on wheelchair; B95.2 Enterococcus as the cause of diseases classified elsewhere; Z23 Encounter for immunization; Y83.6 Removal of other organ (partial) (total) as the cause of abnormal reaction of the patient, or of later complication, without mention of misadventure at the time of the procedure
CPT/HCPCS: 36415; 80048; 80061; 80202; 81001; 82274; 82306; 83540; 83550; 83930; 83935; 84300; 85014; 85018; 85025; 85652; 86140; 87086; 90480; 90677; 94762; 97110; 97163; 97165; 97530; 97535; 97802; J7030; J7040; J7050; 91322; A4216; J2916

== ENCOUNTER → 2023-06-23 | Outpatient (CLI) | payer MEDICARE, OTHER, SELFPAY ==
--- NOTE | 2023-06-23 14:38 | CT_ITS ---
INDICATION: R/O HEMMORHAGE EXAMINATION: CT PELVIS BONE - CT Pelvis W/O Contrast Injection TECHNIQUE: Routine noncontrast bone CT protocol was performed of the pelvis. 2-D reformats were performed by the technologist. A radiation dose optimization technique was used for this scan. IV Contrast dosage and agent: None. COMPARISON: Lumbar spine CT on same day. Lumbar spine MRI June 05, 2023. Lumbar spine radiograph April 03, 2023. FINDINGS: SOFT TISSUES: Left anterior pelvic subcutaneous fat injection changes. Small fat-containing umbilical hernia without inflammation. Mild posterior lower back subcutaneous soft tissue edema without gross hematoma. No internal pelvic hematoma. Aortic atherosclerosis without ectasia. Well filled bladder without wall thickening or surrounding inflammation. Moderate colonic stool. Hepatomegaly suggested with partially visualized inferior liver extending into the pelvis. . BONES/JOINTS: L5 anterior superior endplate compression fracture without surrounding hematoma. Bilateral L5 pars defects with slight grade 1 retrolisthesis of L4-L5 and slight grade 1 anterolisthesis L5 on S1. Left L4 laminectomy noted. Normal bilateral hip alignment with mild joint space narrowing and osteophyte formation. Minimal bilateral sacroiliac joint. Symphysis degenerative change. CT/Pelvis without IV Contrast IMPRESSION: L5 anterior superior endplate compression fracture without surrounding hematoma. Left L4 laminectomy at the L4-L5 level. Redemonstration bilateral L5 pars defects with slight grade 1 listhesis as above. Hepatomegaly suggested. Electronically Signed: Darnell Blackburn MD at 17:51 EDT ,
--- NOTE | 2023-06-23 14:38 | CT_ITS ---
INDICATION: R/O HEMMORHAGE EXAMINATION: CT LUMBAR SPINE - CT Spine Lumbar W/O Contrast Injection TECHNIQUE: Helically acquired images were obtained of the lumbar spine. 2D reformats were reviewed. A radiation dose optimization technique was used for this scan. IV Contrast dosage and agent: None. RADIATION DOSAGE (If Supplied By Facility): CTDIvol = ( 41.64 ) mGy, DLP = ( 1210.46 ) mGycm COMPARISON: Lumbar spine radiograph June 02, 2023 lumbar spine MRI June 08, 2023. Fluoroscopy June 08, 2023 FINDINGS: VERTEBRAE: 5 nonrib-bearing lumbar-type vertebra. Lower thoracic laminectomy with T11 bilateral trans-pedicle fixation screws, partially seen, however lucency along the screw tips in the vertebral bodies as can be seen with loosening. Bilateral pars defects L5 with interval left L4-L5 laminectomy. Mild grade 1 anterolisthesis L5 on S1 that is unchanged from June 05, 2023 MRI. Acute or subacute fragmentation of the superior anterior L5 vertebral endplate. Mild chronic vertebral height loss at L1-L4. Diffuse anterior bridging osteophytes. Posterior subcutaneous soft tissue edema with ill-defined confluent fluid approximately 3.7 x 2.2 x 6.7 cm, commonly representing seroma, without subcutaneous emphysema or discrete abscess wall. DISCS and SPINAL CANAL: Limited evaluation epidural fluid collection by noncontrast CT without appreciable hematoma or critical spinal stenosis. T12-L1: Small calcified posterior disc protrusion with bilateral facet arthropathy causing moderate spinal canal stenosis, severe left lateral recess narrowing, and moderate bilateral neural foraminal stenosis. L1-L2: Small posterior disc protrusion with endplate osteophyte formation causing mild spinal canal narrowing and mild bilateral neural foraminal stenosis. L2-3: Small posterior disc protrusion with endplate osteophyte formation causing mild spinal canal narrowing and moderate bilateral neural foraminal stenosis. L3-4:Small posterior disc protrusion with endplate osteophyte formation and moderate ligamentum flavum hypertrophy with mild facet arthropathy causing moderate to severe spinal canal narrowing and moderate to severe bilateral neural foraminal stenosis. L4-5: Status post laminectomy and microdiscectomy with mild asymmetric widening of the left facet. Bilateral pars defects L5 with grade 1 retrolisthesis L4 relative to L5. No significant spinal stenosis status post decompression. Moderate left and mild right neural foraminal narrowing. L5-S1: Slight posterior disc protrusion and endplate osteophyte formation with bilateral facet arthropathy. No gross spinal stenosis status post decompression. Moderate to severe bilateral neural foraminal stenosis. VISUALIZED ABDOMEN: Visualized abdominal aorta is not dilated. There is no retroperitoneal adenopathy. CT/Spine Lumbar without Contrast IMPRESSION: Status post laminectomy L4-5 with decompression of the spinal canal. Evaluation for epidural hemorrhage is limited by noncontrast CT. No overt hematoma is suggested. MRI could further evaluate as clinically indicated. Bilateral pars defects L5 with grade 1 anterolisthesis L5 on S1 and grade 1 retrolisthesis of L4 on L5. There is chronic asymmetric mild widening of the left L4-5 facet joint associated with the listhesis. Acute or subacute L5 anterior superior endplate fragmentation compatible with compression injury. Lucency noted along the tips of T11 transpedicular fixation screws as can be seen with loosening. The screws are incompletely visualized. Comparison with prior Thoracic Spine imaging would be helpful if available. Multilevel spondylosis as above with moderate to severe spinal canal stenosis at L3-4. Multilevel moderate to severe neural foraminal stenosis as above. Electronically Signed: Darnell Blackburn MD at 17:36 EDT Reading Location ID and State: [facility] / [place] Tel , Service support ,
== END | disposition home or self-care (01) ==
LOC: CT 14:37
PROVIDERS: PCP Internal Medicine; Referring Provider Family Medicine Geriatric Medicine; Visit Provider Family Medicine Geriatric Medicine
DX: R58 Hemorrhage, not elsewhere classified (principal)
CPT/HCPCS: 72131; 72192

== ENCOUNTER 2023-06-28 15:15 | Day surgery (SDC) | payer MEDICARE, OTHER, SELFPAY ==
--- NOTE | 2023-06-28 14:05 | IMM_PTH ---
PATIENT: BARBARA KARIMI LOC: [facility] U#:[id number] AGE/SX: 67/F ROOM: RE06/28/[address]: Dr. Rk Patel DO : 1955 BED: DIS: 06/28/2023 SPEC #: [id number] RECD: 06/29/23 14:34 STATUS: EZEQUIEL REQ #: [id number] TAMICA: 06/28/23 14:[address]: Rk Patel DEPT: IMMUNOHISTOCHEMISTRY RECD BY: Ryan Brown ENTERED: 06/29/23 14:35 SP TYPE: IMMUNO OTHR DR: Dr. Alissa Doty MD Tissues: A - Gastric mucous membrane Procedures: H Pylori (initial) PHYSICIAN & INSTITUTION [place] [id number] SPECIMEN INFORMATION: Tissue Source: A- Gastric antrum Clinical Info: Anemia Specimen Number: [id number] CPT code: 28617 METHODOLOGY: Deparaffinized sections of prefer/formalin-fixed tissue or PAP/DQ stained slides are incubated with monoclonal/polyclonal antibodies/oligonucleotide probes. Localization is made via biotin free immunoperoxidase method. Appropriate controls are performed and reacted as expected. Results on target cell population are indicated in the following table: RESULTS: ANTIBODY / CLONE RESULT Block A H Pylori (polyclonal) negative These tests were developed and their performance characteristics determined by [facility]. They may not have been cleared or approved by the U.S. Food and Drug Administration. The FDA has determined that such clearance or approval is not necessary. The above immunohistochemical/dualISH markers are ordered and reviewed by the Pathologist. INTERPRETATION: A. Gastric antrum, biopsy: Negative for Helicobacter pylori organisms. SOHAM/ 06/30/2023
--- NOTE | 2023-06-28 14:05 | COLBX_PTH ---
PATIENT: BARBARA KARIMI LOC: [facility] U#:[id number] AGE/SX: 67/F ROOM: RE06/28/[address]: Dr. Rk Patel DO : 1955 BED: DIS: 06/28/2023 SPEC #: [id number] RECD: 06/29/23 09:19 STATUS: EZEQUIEL BELLEKaren #: [id number] TAMICA: 06/28/23 14:[address]: Rk Patel DEPT: SURGICAL PATHOLOGY RECD BY: Saida Hinojosa ENTERED: 06/29/23 12:34 SP TYPE: COLON BX OTHR DR: Dr. Alissa Doty MD Tissues: A - Gastric mucous membrane B - COLON BIOPSY Procedures: Surgery Specimen Level IV HEADER OPERATION: Colonoscopy with biopsy and electrohemostasis, EGD with biopsies PRE-OP DIAGNOSIS: Anemia TISSUE SUBMITTED: A- Gastric antrum biopsy, B- Ulcer at IC valve biopsy MICROSCOPIC DIAGNOSIS A. Gastric antrum, biopsy: Mild gastritis. See microscopic description and comment. B. IC valve, biopsy: Fragments of small intestinal and colonic mucosa with congestion, hemorrhage, reactive changes and minimal glandular distortion. See comment. SOHAM/ 06/30/2023 COMMENT A. The results of immunohistochemistry for Helicobacter pylori will be reported separately ([id number]). Correlation with clinical, endoscopic findings and appropriate follow up are necessary. MICROSCOPIC DESCRIPTION Slides are reviewed. A. The specimen shows fragments of gastric mucosa with chronic inflammatory cell infiltrates in the lamina propria consisting of lymphocytes and plasma cells, consistent with mild chronic gastritis. GROSS DESCRIPTION A. Received in fixative is one container labeled with the patient's name and designated Gastric antrum. The specimen consists of two irregular fragments of light araya soft tissue that in aggregate measure 0.9 x 0.4 x 0.1 cm. The specimen is totally submitted in one cassette. B. Received in fixative is one container labeled with the patient's name and designated Ulcer at IC valve biopsy. The specimen consists oftwo irregular fragments of light araya soft tissue that in aggregate measure 0.8 x 0.4 x 0.1 cm. The specimen is totally submitted in one cassette. Ashley 06/29/2023 TC:5 CPT:01394u1
[2023-06-28 16:03] VITALS: BP 147/55; PULSE 92; RESP 18; TEMP 37; O2SAT 96; BMI 41.3
[2023-06-28] MEDS: Lactated Ringers 1,000 ML 15 ML IV (16:08)
--- NOTE | 2023-06-28 17:12 | HP.PCM_ITS ---
History and Physical Date of Admission: 06/28/23 Anemia HPI Narrative: BARBARA KARIMI, is a The patient is a 67 y/o F came to ED with low back pain and right lower extremity pain for about 1 month. She has a history of 2 back surgeries in the past. Patient is in a wheelchair. She also has disequilibrium/loss of balance and near fall situation, guarded weight between the wall of the toilet on day of admission She was diagnosed with adult FTT secondary to Acute Intractable Back Pain lumbar spine with right lower extremity radiculopathy with adult failure to thrive, debility, inability to ambulate. MRI displayed severe central canal stenosis at L4-L5 and L5-S1 and large amount of extruded disc material. Pain seems better than yesterday. Spine surgeon Dr. Kwasi Cheatham called to see the patient in afternoon. Requested pain management consult Dr. Panchal for evaluation for epidural injection. On multiple opioid and steroid medications. Medrol oral Dosepak changed to dexamethasone. Tizanidine and oxycodone. Patient evaluated by both spine surgeon Dr. Kwasi Cheatham and Dr. Wheatley. Scheduled for surgery tomorrow. Patient had L4-5 left-sided laminotomy, discectomy for large L4-5 central disc herniation. Clinically patient feels much improvement in pain after surgery. Surgical dressing is dry.Patient has leukocytosis from being on a steroid. Hyperglycemia from steroid.Patient does not have history of DM She also has a history of chronic normocytic anemia: Admission hemoglobin 11.1, MCV 86.4, baseline hemoglobin similar range, 06/04/23 Hgb 11, MCV 87.5. I was consulted because her hemoglobin keeps dropping and she was Hemoccult positive. She also has never had a colonoscopy. [facility] Medical History (Updated 06/15/23 @ 00:02 by Background Daemon) Lumbar radiculopathy, acute Morbid obesity IRIS treated with BiPAP Anxiety and depression History of alcohol abuse Thyroid nodule Former smoker COPD (chronic obstructive pulmonary disease) Atrial fibrillation Neuropathic pain Vitamin D deficiency Hyperlipidemia Herpes zoster Hypertension Osteoarthritis of knees, bilateral Pseudogout of right knee Thoracic spinal stenosis Home Medications ?Medication ?Instructions ?Recorded ?Last Taken ?Type atorvastatin 10 mg tablet 10 mg PO DAILY@2200 Cholesterol 12/08/20 06/08/23 22:15 History cholecalciferol (vitamin D3) 25 2,000 unit PO DAILY Supplement 12/08/20 06/01/23 History mcg (1,000 unit) tablet (Vitamin D3) clonidine HCl 0.1 mg tablet 0.1 mg PO BID BP 12/08/20 06/09/23 10:05 History diclofenac sodium 1 % topical gel 1 ea topical Q6H Pain 12/08/20 06/01/23 History (Voltaren Arthritis Pain) sertraline 100 mg tablet 100 mg PO DAILY Mood 12/08/20 06/09/23 10:10 History hydroxyzine pamoate 25 mg capsule 25 mg PO QHS anxiety 30 days #30 01/11/21 06/08/23 10:15 Rx caps orphenadrine citrate 100 mg 100 mg PO BID PRN muscle spasm #10 05/02/23 06/01/23 Rx tablet,extended release tabs amlodipine 10 mg tablet 10 mg PO DAILY heart 06/02/23 06/09/23 10:00 History ketoconazole 2 % topical cream 1 applic topical DAILY skin 06/02/23 06/01/23 History spironolactone 25 mg tablet 25 mg PO DAILY swelling 06/02/23 06/09/23 10:05 History valsartan 160 mg tablet 160 mg PO DAILY blood pressure 06/02/23 06/09/23 10:05 History valsartan 80 mg tablet 80 mg PO DAILY blood pressure 06/02/23 06/08/23 22:25 History acetaminophen 500 mg tablet 1,000 mg (2 x 500 mg) PO Q8 severe 06/09/23 06/09/23 06:15 Rx pain #0 tabs dexamethasone 4 mg tablet 2 mg (1/2 x 4 mg) PO BIDCM pain #0 06/09/23 06/09/23 08:05 Rx tabs gabapentin 600 mg tablet 600 mg PO TIDCM nerve pain #0 tabs 06/09/23 06/09/23 11:35 Rx meloxicam 15 mg tablet 15 mg PO DAILY pain #0 tabs 06/09/23 06/09/23 10:05 Rx oxycodone 5 mg tablet 2.5 - 5 mg (0.5 - 1 x 5 mg) PO Q4H 06/09/23 Unknown Rx PRN PRN Pain Score 6-10 #0 tabs sennosides 8.6 mg-docusate sodium 2 tab PO BID constipation #0 tabs 06/09/23 06/03/23 Rx 50 mg tablet (Stool Softener-Stimulant Laxative) tizanidine 2 mg tablet 2 mg PO Q8H PRN PRN muscle spasms 06/09/23 06/07/23 08:08 Rx #0 tabs Allergy/AdvReac Type Severity Reaction Status Date / Time hydrocodone (From Vicodin) Allergy Anaphylaxis Verified 06/02/23 16:42 lorazepam (From Ativan) Allergy Hives Verified 06/02/23 16:42 neomycin Allergy Hives Verified 06/02/23 16:42 Family History Mother No problems noted. Father Leukemia Diabetes Surgical History (Updated 06/15/23 @ 00:02 by Background Dathad) History of back surgery History of back surgery History of adenoidectomy Hx of tonsillectomy Social History (Updated 06/09/23 @ 19:[address] Darrel Karimi MD) household members: none Smoking Status: Former smoker how long ago did patient quit smoking: Quit 45 yrs prior, smoked 1 ppd starting age 19 until quit. alcohol intake: former details: Drank heavily prior, sober x 45 years. substance use type: does not use ROS Constitutional Constitutional: Reports weakness; Denies chills, fever(s) or weight gain ENT HEENT: Denies headache(s), nasal congestion or nasal discharge Cardiovascular Cardiovascular: Denies chest pain or palpitations Respiratory/Chest Respiratory/Chest: Denies cough, excessive phlegm production or shortness of breath with exertion Gastrointestinal Gastrointestinal: Denies abdominal pain, nausea or vomiting Genitourinary Genitourinary: Denies dysuria Musculoskeletal Musculoskeletal: Reports back pain and muscle spasms; Denies joint pain or joint swelling Integumentary Integumentary: Denies rash or wounds Neurologic Neurologic: Denies focal weakness, numbness or tingling Psychiatric Psychiatric: Denies anxiety, auditory hallucinations, depression, homicidal ideation or suicidal ideation Physical Exam Narrative Seen and examined. Physical exam General: Alert, Oriented x3, Cooperative HEENT: Atraumatic, PERRLA, EOMI, Normocephalic Oral: Oral mucosa moist no Gingival or Mucosal Lesions/ Ulcerations Neck: Supple, No JVD, Negative Carotid Bruits Chest wall/Lungs: Air entry diminished in bilateral lung bases. No crepitation/rhonchi Cardiovascular: Irregular rhythm, Normal S1, Normal S2, systolic murmur Abdomen: Bowel Sounds Present, Soft, Non Tender, Non-Distended : No Atkins catheter. No dysuria. No renal angle tenderness. No suprapubic tenderness. Extremities: No edema, Capillary Refill Less than 3 Seconds Skin: Surgical dressing on the lumbar back is dry. Mild tenderness around the operative region. Musculoskeletal: Numbness tingling improved. Muscle strength 4+/5 at knees and hips likely due to pain and spasm Neurological: Cranial nerves II-XII grossly intact, DTR 2+/4. L4-5 L5-S1 radiculopathy pain has much improved. Psych/Mental Status: Flat affect Lab / Micro Data 06/27/23 05:13 06/27/23 05:13 Labs: Laboratory Results - last 24 hr 06/27/23 05:13: WBC 7.6, RBC 3.33 L, Hgb 9.1 L, Hct 28.5 L, MCV 85.6, MCH 27.3, MCHC 31.9 L, RDW Std Deviation 43.1, RDW Coeff of Laila 13.7, Plt Count 222, MPV 9.2, Immature Gran % (Auto) 0.700, Neut % (Auto) 67.4, Lymph % (Auto) 18.8 L, [place] % (Auto) 8.3, Eos % (Auto) 4.1, Baso % (Auto) 0.7, Absolute Neuts (auto) 5.1, Absolute Lymphs (auto) 1.42, Nucleated RBC % 0, Sodium 130 L, Potassium 5.3 H, Chloride 100, Carbon Dioxide 26.0, Anion Gap 4 L, BUN 51 H, Creatinine 0.57, Estim Creat Clear Calc 82.98, Est GFR (MDRD) Af Amer 134, Est GFR (MDRD) Non-Af 111, BUN/Creatinine Ratio 89.0 H, Glucose 102, Calcium 9.3 06/27/23 09:50: Urine Color Yellow, Urine Clarity Clear, Urine pH 6.0, Ur Specific [place] 1.010, Urine Protein Negative, Urine Glucose (UA) Normal, Urine Ketones Negative, Urine Occult Blood Negative, Urine Nitrite Negative, Urine Bilirubin Negative, Urine Urobilinogen Normal, Ur Leukocyte Esterase 500 H, Urine RBC 0 SEEN, Urine WBC 5-10 SEEN, Ur Squamous Epith Cells 0 SEEN, Urine Bacteria 0 SEEN, Urine Mucus 0 SEEN Micro: Microbiology 06/26/23 20:27 Stool Stool Occult Blood (LUCINA) - Final Occult Blood Positive Assessment & Plan Assessment/Plan (1) Intractable back pain: PLAN: Plan The patient is a 67 y/o F came to ED with low back pain and right lower extremity pain for about 1 month. History of 2 back surgeries in the past. Patient in wheelchair. She also has disequilibrium/loss of balance and near fall situation, guarded weight between the wall of the toilet on day of admission Patient had L4-5 left-sided laminotomy, discectomy for large L4-5 central disc herniation. Clinically patient feels much improvement in pain after surgery. Chronic normocytic anemia: Admission hemoglobin 11.1, MCV 86.4, baseline hemoglobin similar range, 06/04/23 Hgb 11, MCV 87.5. The differential diagnosis does include celiac disease, gastric antral vascular ectasia, Lon's erosions, neoplasia, peptic ulcer disease. She should undergo an upper and lower endoscopy to evaluate upper and lower GI tract. She was explained alternatives, risk, benefits include not withstanding bleeding, infection, sepsis, perforation, need for emergent urgent . She will have an ASA of 3. I have examined the patient and the H&P has been reviewed. There are no clinical changes since date of exam.
--- NOTE | 2023-06-28 18:09 | OP.EGD_ITS ---
Patient Name: Sonia Prince Procedure Date: 06/28/2023 5:19 PM Date of : 1955 Age: 67 Procedure: Upper GI endoscopy Indications: Iron deficiency anemia Providers: Rk Patel DO Medicines: Monitored Anesthesia Care Patient Profile: This is a 67 year old female. Refer to note in patient chart for documentation of history and physical. Patient has symptoms. Complications: No immediate complications. Procedure: Pre-Anesthesia Assessment: - Prior to the procedure, a History and Physical was performed, and patient medications and allergies were reviewed. The risks and benefits of the procedure and the sedation options and risks were discussed with the patient. All questions were answered and informed consent was obtained. Patient identification and proposed procedure were verified by the physician in the pre-procedure area. Mental Status Examination: alert and oriented. Airway Examination: normal oropharyngeal airway and neck mobility. Respiratory Examination: clear to auscultation. CV Examination: normal. Prophylactic Antibiotics: The patient does not require prophylactic antibiotics. Prior Anticoagulants: The patient has taken no anticoagulant or antiplatelet agents. ASA Grade Assessment: II - A patient with mild systemic disease. After reviewing the risks and benefits, the patient was deemed in satisfactory condition to undergo the procedure. The anesthesia plan was to use monitored anesthesia care (MAC). Immediately prior to administration of medications, the patient was re-assessed for adequacy to receive sedatives. The heart rate, respiratory rate, oxygen saturations, blood pressure, adequacy of pulmonary ventilation, and response to care were monitored throughout the procedure. The physical status of the patient was re-assessed after the procedure. After obtaining informed consent, the endoscope was passed under direct vision. Throughout the procedure, the patient's blood pressure, pulse, and oxygen saturations were monitored continuously. The pediatric colonoscope was introduced through the mouth, and advanced to the second part of duodenum. The upper GI endoscopy was accomplished without difficulty. The patient tolerated the procedure well. Scope In: 5:33:56 PM Scope Out: 5:38:58 PM Total Procedure Duration Time 0 hours 5 minutes 2 seconds Findings: The examined esophagus was normal. Many oozing linear gastric ulcers with pigmented material were found in the gastric antrum. The largest lesion was 4 mm in largest dimension. Coagulation for hemostasis using heater probe was successful. Estimated blood loss was minimal. Biopsies were taken with a cold forceps for histology. Verification of patient identification for the specimen was done. Estimated blood loss was minimal. Biopsies were taken with a cold forceps for Helicobacter pylori testing. Verification of patient identification for the specimen was done. Estimated blood loss was minimal. No gross lesions were noted in the first portion of the duodenum. Impression: - Normal esophagus. - Oozing gastric ulcers with pigmented material. Treated with a heater probe. Biopsied. - No gross lesions in the first portion of the duodenum. Recommendation: - [facility] care. - Resume previous diet. - Continue present medications. - Await pathology results. - Repeat upper endoscopy in 4 months for surveillance. - Use Protonix (pantoprazole) 40 mg PO BID for 6 months. Procedure Code(s): --- Professional --- 53902, 59, Esophagogastroduodenoscopy, flexible, transoral; with control of bleeding, any method 43681, 51, Esophagogastroduodenoscopy, flexible, transoral; with biopsy, single or multiple CPT copyright 2021 [employer]. All rights reserved. The codes documented in this report are preliminary and upon science manager review may be revised to meet current compliance requirements. Rk Patel DO 06/28/2023 6:09:09 PM This report has been signed electronically. Number of Addenda: 0 Note Initiated On: 06/28/2023 5:19 PM
--- NOTE | 2023-06-28 18:09 | OP.CCLET_ITS ---
06/28/2023 Alissa Doty [address] [place] [address] Re : Upper GI endoscopy procedure for Sonia Prince Dear Dr. Doty This procedure was performed on Wednesday, June 28, 2023. My impressions and recommendations are as follows: Impressions : - Normal esophagus. - Oozing gastric ulcers with pigmented material. Treated with a heater probe. Biopsied. - No gross lesions in the first portion of the duodenum. Recommendations : - Return patient to [facility] for [facility] care. - Resume previous diet. - Continue present medications. - Await pathology results. - Repeat upper endoscopy in 4 months for surveillance. - Use Protonix (pantoprazole) 40 mg PO BID for 6 months. My findings are described in the full procedure note, which is enclosed. If I can be of further assistance, please feel free to contact me at . Sincerely, Rk Friend, 06/28/2023 6:09:09 PM This report has been signed electronically.
--- NOTE | 2023-06-28 18:13 | OP.COLON_ITS ---
Patient Name: Sonia Prince Procedure Date: 06/28/2023 5:39 PM Date of : 1955 Age: 67 Procedure: Colonoscopy Indications: Iron deficiency anemia Providers: Rk Patel DO Medicines: Monitored Anesthesia Care Patient Profile: This is a 67 year old female. Refer to note in patient chart for documentation of history and physical. Patient has symptoms. Last Colonoscopy: none. The patient's first colonoscopy is today. Complications: No immediate complications. Procedure: Pre-Anesthesia Assessment: - Prior to the procedure, a History and Physical was performed, and patient medications and allergies were reviewed. The risks and benefits of the procedure and the sedation options and risks were discussed with the patient. All questions were answered and informed consent was obtained. Patient identification and proposed procedure were verified by the physician in the pre-procedure area. Mental Status Examination: alert and oriented. Airway Examination: normal oropharyngeal airway and neck mobility. Respiratory Examination: clear to auscultation. CV Examination: normal. Prophylactic Antibiotics: The patient does not require prophylactic antibiotics. Prior Anticoagulants: The patient has taken no anticoagulant or antiplatelet agents. ASA Grade Assessment: II - A patient with mild systemic disease. After reviewing the risks and benefits, the patient was deemed in satisfactory condition to undergo the procedure. The anesthesia plan was to use monitored anesthesia care (MAC). Immediately prior to administration of medications, the patient was re-assessed for adequacy to receive sedatives. The heart rate, respiratory rate, oxygen saturations, blood pressure, adequacy of pulmonary ventilation, and response to care were monitored throughout the procedure. The physical status of the patient was re-assessed after the procedure. After I obtained informed consent, the scope was passed under direct vision. Throughout the procedure, the patient's blood pressure, pulse, and oxygen saturations were monitored continuously. The Colonoscope was introduced through the anus and advanced to the cecum, identified by appendiceal orifice and ileocecal valve. The colonoscopy was performed without difficulty. The patient tolerated the procedure well. The quality of the bowel preparation was fair. The ileocecal valve, appendiceal orifice, and rectum were photographed. Scope In: 5:42:04 PM Scope Withdrawal Time 0 hours 12 minutes 40 seconds Scope Out: 6:02:08 PM Total Procedure Duration Time 0 hours 20 minutes 4 seconds Findings: The perianal and digital rectal examinations were normal. A few small-mouthed diverticula were found in the recto-sigmoid colon and sigmoid colon. A single (solitary) ten mm ulcer was found in the cecum. Oozing was present. Stigmata of recent bleeding were present. Coagulation for hemostasis using heater probe was successful. Biopsies were taken with a cold forceps for histology. Verification of patient identification for the specimen was done. Estimated blood loss was minimal. Stool was found in the rectum, in the recto-sigmoid colon, in the transverse colon and in the cecum. A single (solitary) six mm ulcer was found at the ileocecal valve. No bleeding was present. Biopsies were taken with a cold forceps for histology. Verification of patient identification for the specimen was done. Estimated blood loss was minimal. Impression: - Preparation of the colon was fair. - Diverticulosis in the recto-sigmoid colon and in the sigmoid colon. - A single (solitary) ulcer in the cecum. Treated with a heater probe. Biopsied. - Stool in the rectum, in the recto-sigmoid colon, in the transverse colon and in the cecum. Recommendation: - Return patient to referring hospital for ongoing care. - Resume previous diet. - Continue present medications. - Await pathology results. - Repeat colonoscopy for surveillance based on pathology results. Procedure Code(s): --- Professional --- 04738, 59, Colonoscopy, flexible; with control of bleeding, any method 20692, Colonoscopy, flexible; with biopsy, single or multiple CPT copyright 2021 [employer]. All rights reserved. The codes documented in this report are preliminary and upon middle school special education teacher review may be revised to meet current compliance requirements. Rk Patel DO 06/28/2023 6:13:15 PM This report has been signed electronically. Number of Addenda: 0 Note Initiated On: 06/28/2023 5:39 PM
--- NOTE | 2023-06-28 18:13 | OP.CCLET_ITS ---
06/28/2023 Alissa Doty [address] [place] [address] Re : Colonoscopy procedure for Sonia Prince Dear Dr. Doty This procedure was performed on Wednesday, June 28, 2023. My impressions and recommendations are as follows: Impressions : - Preparation of the colon was fair. - Diverticulosis in the recto-sigmoid colon and in the sigmoid colon. - A single (solitary) ulcer in the cecum. Treated with a heater probe. Biopsied. - Stool in the rectum, in the recto-sigmoid colon, in the transverse colon and in the cecum. Recommendations : - Return patient to referring hospital for ongoing care. - Resume previous diet. - Continue present medications. - Await pathology results. - Repeat colonoscopy for surveillance based on pathology results. My findings are described in the full procedure note, which is enclosed. If I can be of further assistance, please feel free to contact me at . Sincerely, Rk Patel, 06/28/2023 6:13:15 PM This report has been signed electronically.
[2023-06-28 18:18] VITALS: BP 126/84; BP 147/55; BP 87/72; PULSE 110; PULSE 96; RESP 20; TEMP 37.6; O2SAT 100; O2SAT 94
[2023-06-28 18:23] VITALS: BP 147/55; BP 156/85; PULSE 108; RESP 18; O2SAT 97
[2023-06-28 18:29] VITALS: BP 147/55; BP 174/72; PULSE 104; RESP 18; TEMP 37.3; O2SAT 98
[2023-06-28] MEDS: Gabapentin 600 MG Tablet PO (18:38)
[2023-06-28] MEDS: Acetaminophen 500 MG Tablet 1000 MG PO (18:38)
[2023-06-28 18:39] VITALS: BP 147/55
== END 2023-06-28 18:50 | disposition home or self-care (01) ==
LOC: EN 15:16 → AC 15:16
PROVIDERS: PCP Internal Medicine; Referring Provider Internal Medicine; Visit Provider Internal Medicine Gastroenterology
PROC: 0DJD8ZZ Inspection of Lower Intestinal Tract, Via Natural or Artificial Opening Endoscopic (ICD-10-PCS; CPT 45378; principal; 2023-06-28 14:00)
DX: K25.4 Chronic or unspecified gastric ulcer with hemorrhage (principal); J44.9 Chronic obstructive pulmonary disease, unspecified; E66.01 Morbid (severe) obesity due to excess calories; Z68.41 Body mass index [BMI] 40.0-44.9, adult; E78.5 Hyperlipidemia, unspecified; I10 Essential (primary) hypertension; D50.9 Iron deficiency anemia, unspecified; Z87.891 Personal history of nicotine dependence; K57.30 Diverticulosis of large intestine without perforation or abscess without bleeding; K63.3 Ulcer of intestine; K29.70 Gastritis, unspecified, without bleeding; Z79.899 Other long term (current) drug therapy
CPT/HCPCS: 43255; 45380; 45382; 43239; 88305; 88342; J7120; J2405

== ENCOUNTER → 2023-06-29 | Outpatient (CLI) | payer MEDICARE, OTHER, SELFPAY ==
--- NOTE | 2023-06-29 08:49 | MRI_ITS ---
STUDY: MRI LUMBAR SPINE WITHOUT CONTRAST REASON FOR EXAM: Female, 67 years old. EVALUATE FOR LOOSEN SCREWS TECHNIQUE: Standardized fat and water weighted pulse sequences were obtained in the sagittal and axial planes. COMPARISON: None FINDINGS: T8-T9: (Sagittal only). Normal endplates. Pronounced disc space height narrowing. T9 pedicular screws causing signal distortion artifacts. Normal central canal and the included portions of the bilateral intervertebral neural foramina. T9-T10: Normal T9 inferior endplate. Signal distortion artifacts on the T10 superior endplate and T10 vertebral body. Metallic rods and pedicular screws causing signal distortion artifacts on the facet joints. Signal distortion artifacts occupying the right half of the central canal and obscuring the bilateral lateral recesses. Signal distortion artifacts on the bilateral intervertebral neural foramina. T10-T11: Old anterior wedge compression fracture of the T10 inferior endplate. Old anterior wedge compression fracture of the upper T11 vertebral body. Pronounced disc space height narrowing. Prominent ventral extradural defect is suspicious for disc protrusion but unchanged. Metallic rods and pedicular screws causing signal distortion artifacts on the facet joints and the bilateral lateral recesses. Moderately pronounced central canal stenosis with an AP canal diameter of 4 mm due to prominent posterior midline disc protrusion. Pronounced stenosis of the right intervertebral neural foramen suspiciously due to disc protrusion. Moderate stenosis of the left intervertebral neural foramen. T11-T12: Old anterior wedge compression fracture of the upper T12 vertebral body. Mild irregularity of the vertebral endplates Modic type II changes are unchanged. Mild degenerative retrolisthesis of T11 on T12 is unchanged. Mild bilateral degenerative facet arthropathy. Moderate central canal stenosis with an AP canal diameter 7 mm is unchanged. Signal distortion artifacts on the bilateral intervertebral neural foramina coming from T11 pedicular screws. T12-L1: Mild Modic type II degenerative vertebral marrow fat infiltration underneath the vertebral endplates. Mild old anterior wedging of the upper L1 vertebral body. Pronounced disc space height narrowing. Prominent ventral extradural defect due to disc protrusion and posterior marginal spur. Mild bilateral degenerative facet arthropathy. Moderately pronounced asymmetric central canal stenosis with an AP canal diameter of 5.3 mm. Normal bilateral lateral recesses. Moderate stenosis of the bilateral intervertebral neural foramina due to posterior marginal spurs. Normal lumbar lordosis. There is no substantial scoliosis. Normal conus medullaris that terminates at the T12-L1 disc space level. L1-2: Normal L1 inferior endplate. Mild old anterior wedging of the upper L2 vertebral body is unchanged. Pronounced disc space height narrowing. Mild ventral extradural defect due to posterior marginal spurs. Normal facet joints. Mild dorsal epidural lipomatosis. Mild central canal stenosis with an AP canal diameter of 9 mm. Normal bilateral lateral recesses. Mild stenosis of the bilateral intervertebral neural foramina. L2-3: Normal endplates. Pronounced disc space narrowing mild bilateral degenerative facet arthropathy. Prominent dorsal epidural lipomatosis. Moderately pronounced central canal stenosis with an AP canal diameter 6.3 mm. Normal bilateral lateral recesses. Moderate stenosis of the bilateral intervertebral neural foramina. L3-4: Mild Modic type II degenerative vertebral marrow fat infiltration underneath the vertebral endplates. Pronounced disc space height narrowing. Mild ventral extradural defect due to posterior marginal spurs. Mild bilateral degenerative facet arthropathy. Prominent dorsal epidural lipomatosis. Moderately pronounced central canal stenosis with an AP canal diameter 5.3 mm. Normal bilateral lateral recesses. Moderately pronounced stenosis of the bilateral intervertebral neural foramina with impingement of both L3 nerves. L4-5: Normal L4 inferior endplate. Increased disc space height due to recent fracture across the upper L5 vertebral body. Mild asymmetric degenerative facet arthropathy with widening of the left facet joint. Pronounced central canal stenosis with an AP canal diameter of 4.4 mm despite posterior laminectomy decompression surgery. Severe stenosis of the left lateral recess due to prominent extruded and sequestered disc fragment. This was present previously. Postsurgical absence of the left L4 lamina. Normal right lateral recess. Moderate stenosis of the bilateral intervertebral neural foramina. L5-S1: Normal endplates. Pronounced disc space height narrowing. Mild anterolisthesis of L5 on S1 due to bilateral L5 pars defects. Mild bilateral degenerative facet arthropathy. Prominent dorsal epidural lipomatosis. Moderately pronounced central canal stenosis with an AP canal diameter of 5 mm. Normal bilateral lateral recesses. Pronounced stenosis of the right intervertebral neural foramen with impingement of the right L5 nerve. Moderately pronounced stenosis of the left intervertebral neural foramen without obvious impingement of the left L5 nerve. Normal visualized sacral ala. Normal visualized paraspinous soft tissue structures. MRI/Spine Lumbar (Routine) IMPRESSION: 1. Screw loosening is suboptimal for evaluation on MRI lumbar spine due to signal distortion artifacts. CT is more helpful. 2. Recent fracture across the upper L5 vertebral body, pronounced central canal stenosis with an AP canal diameter of 4.4 mm despite left posterior laminectomy decompression surgery and severe stenosis of the left lateral recess due to prominent extruded and sequestered disc fragment. Limited this is coming from the L4-L5 disc space or coming from the L5-S1 disc space is difficult to ascertain. In my opinion, this was present previously. 06/05/2023. 3. Pronounced stenosis of the right L5-S1 intervertebral neural foramen with impingement of the right L5 nerve, mild anterolisthesis of L5 on S1 due to bilateral L5 pars defects and moderately pronounced central canal stenosis with an AP canal diameter of 5 mm. This level is unchanged. 4. Moderately pronounced central canal stenosis at L3-L4 disc space level with an AP canal diameter 5.3 mm and moderately pronounced stenosis of the bilateral intervertebral neural foramina with impingement of both L3 nerves. This level is unchanged. 5. Moderately pronounced central canal stenosis at L2-L3 disc space level with an AP canal diameter of 6.3 mm and moderate stenosis of the bilateral intervertebral neural foramina are unchanged. 6. Moderately pronounced asymmetric central canal stenosis at T12-L1 disc space level with an AP canal diameter 5.3 mm, prominent posterior midline disc protrusion and moderate stenosis of the bilateral intervertebral neural foramina due to posterior marginal spurs. This level is unchanged. 7. Moderate central canal stenosis at T11-T12 disc space level with an AP canal diameter of 7 mm, mild degenerative retrolisthesis of T11 on T12 and old anterior wedge compression fracture of the upper T12 vertebral body are unchanged. 8. Moderately pronounced central canal stenosis at T10-T11 disc space level with an AP canal diameter of 4 mm due to prominent posterior midline disc protrusion, pronounced stenosis of the right T10-T11 intervertebral neural foramen due to disc protrusion and moderate stenosis of the left intervertebral neural foramen are unchanged. 9. Metallic signal distortion artifacts occupying the right half of the central canal at T9-T10 disc space level. Electronically Signed: Esteban Sol MD at 13:41 EDT ,
== END | disposition home or self-care (01) ==
LOC: MRI 08:47
PROVIDERS: PCP Internal Medicine; Visit Provider Family Medicine Geriatric Medicine
DX: T84.226A Displacement of internal fixation device of vertebrae, initial encounter (principal); X58.XXXA Exposure to other specified factors, initial encounter
CPT/HCPCS: 72148

== ENCOUNTER 2023-06-30 13:32 | Day surgery (SDC) | payer MEDICARE, OTHER, SELFPAY ==
[2023-06-30] VITALS (9 sets, daily range): BP systolic 123–164; BP diastolic 44–97; PULSE 73–93; RESP 16–18; TEMP 36.5–37; O2SAT 95–100; BMI 40.8
[2023-06-30] MEDS: Lactated Ringers 1,000 ML 15 ML IV (13:58)
--- NOTE | 2023-06-30 14:29 | PCM.HP.BLA ---
History and Physical Date of Admission: 06/30/23 MR#: [id number] Acct: [id number] Name: BARBARA KARIMI Rep #: [id number] : 1955 67 From: Kwasi Cheatham MD PCP: Dr. Alissa Doty MD Status: ADM IN Location: [place] [address] HPI Consult Data Date of Consult: 06/29/23 HPI Narrative HPI Narrative: BARBARA KARIMI, is a 67 F who is in the TCU for rehab. She is 3 weeks status post L4-5 laminotomy discectomy. I was consulted for continued low back pain and wound issues. I saw her for her 2-week follow-up last week and she was found to have mild wound dehiscence for which I requested wound care consult as well as twice daily dressing changes. She is also completed 7 days of Keflex. She denies any fevers. She denies any other changes since last seen by me. She has been extremely sedentary and has not been able to reach her baseline of wheelchair mobility. Because of her body habitus she finds it difficult for changing positions repeatedly. She has known residual myelopathy from cervical and thoracic pathology treated with surgeries in the past. [facility] Medical History (Updated 06/29/23 @ 17:[address] Kwasi Cheatham MD) Lumbar radiculopathy, acute Morbid obesity IRIS treated with BiPAP Anxiety and depression History of alcohol abuse Thyroid nodule Former smoker COPD (chronic obstructive pulmonary disease) Atrial fibrillation Neuropathic pain Vitamin D deficiency Hyperlipidemia Herpes zoster Hypertension Osteoarthritis of knees, bilateral Pseudogout of right knee Thoracic spinal stenosis Home Medications ?Medication ?Instructions ?Recorded ?Last Taken ?Type atorvastatin 10 mg tablet 10 mg PO DAILY@2200 Cholesterol 12/08/20 06/08/23 22:15 History cholecalciferol (vitamin D3) 25 2,000 unit PO DAILY Supplement 12/08/20 06/01/23 History mcg (1,000 unit) tablet (Vitamin D3) diclofenac sodium 1 % topical gel 1 ea topical Q6H Pain 12/08/20 06/01/23 History (Voltaren Arthritis Pain) sertraline 100 mg tablet 100 mg PO DAILY Mood 12/08/20 06/09/23 10:10 History hydroxyzine pamoate 25 mg capsule 25 mg PO QHS anxiety 30 days #30 01/11/21 06/08/23 10:15 Rx caps amlodipine 10 mg tablet 10 mg PO DAILY heart 06/02/23 06/09/23 10:00 History ketoconazole 2 % topical cream 1 applic topical DAILY skin 06/02/23 06/01/23 History acetaminophen 500 mg tablet 1,000 mg (2 x 500 mg) PO Q8 severe 06/09/23 06/09/23 06:15 Rx pain #0 tabs gabapentin 600 mg tablet 600 mg PO TIDCM nerve pain #0 tabs 06/09/23 06/09/23 11:35 Rx oxycodone 5 mg tablet 2.5 - 5 mg (0.5 - 1 x 5 mg) PO Q4H 06/09/23 Unknown Rx PRN PRN Pain Score 6-10 #0 tabs sennosides 8.6 mg-docusate sodium 2 tab PO BID constipation #0 tabs 06/09/23 06/03/23 Rx 50 mg tablet (Stool Softener-Stimulant Laxative) tizanidine 2 mg tablet 2 mg PO Q8H PRN PRN muscle spasms 06/09/23 06/07/23 08:08 Rx #0 tabs losartan 50 mg tablet (Cozaar) 50 mg PO BID 06/29/23 Unknown History pantoprazole 40 mg tablet,delayed 40 mg PO BID 06/29/23 Unknown History release polyethylene glycol 3350 17 17 g PO DAILY 06/29/23 Unknown History gram/dose oral powder (Miralax) Allergy/AdvReac Type Severity Reaction Status Date / Time hydrocodone (From Vicodin) Allergy Anaphylaxis Verified 06/29/23 15:02 lorazepam (From Ativan) Allergy Hives Verified 06/29/23 15:02 neomycin Allergy Hives Verified 06/29/23 15:02 Family History Mother No problems noted. Father Leukemia Diabetes Surgical History (Updated 06/28/23 @ 16:02 by Verónica Elizabeth) History of lumbar laminectomy History of back surgery History of back surgery History of adenoidectomy Hx of tonsillectomy Social History (Updated 06/09/23 @ 19:[address] Darrel Karimi MD) household members: none Smoking Status: Former smoker how long ago did patient quit smoking: Quit 45 yrs prior, smoked 1 ppd starting age 19 until quit. alcohol intake: former details: Drank heavily prior, sober x 45 years. substance use type: does not use Vital Signs Vital Signs Vital Signs: 06/28/2408:36 Temperature 98 F Temperature Source Temporal Pulse Rate 86 Respiratory Rate 20 H Blood Pressure 141/68 H Blood Pressure Mean 92 Blood Pressure Source Monitor Blood Pressure Position Semi-Fowlers Blood Pressure Location Left Arm Pulse Ox 95 Oxygen Delivery Method Room Air Weight Weight: 253 lb 6.4 oz Body Mass Index (BMI) 40.7 Physical Exam Narrative I evaluated the dressing. She says that the dressing was not changed for the last 2 days. This shows greenish soakage of gauze and dressing. No purulent material was expressible. Mild dehiscence and unhealthy granulation tissue noticed. Const alert and oriented x3 Lab / Micro Data 06/29/23 08:16 06/29/23 08:16 Labs: Laboratory Results - last 24 hr 06/29/23 08:16: WBC 7.8, RBC 3.69 L, Hgb 10.0 L, Hct 32.1 L, MCV 87.0, MCH 27.1, MCHC 31.2 L, RDW Std Deviation 43.0, RDW Coeff of Laila 13.5, Plt Count 341, MPV 9.2, Immature Gran % (Auto) 0.500, Neut % (Auto) 77.2 H, Lymph % (Auto) 13.6 L, [place] % (Auto) 4.6, Eos % (Auto) 3.7, Baso % (Auto) 0.4, Absolute Neuts (auto) 6.0, Absolute Lymphs (auto) 1.06, Nucleated RBC % 0, ESR 45 H, Sodium 134 L, Potassium 3.8, Chloride 104, Carbon Dioxide 26.0, Anion Gap 4 L, BUN 15, Creatinine 0.51 L, Estim Creat Clear Calc 85.79, Est GFR (MDRD) Af Amer 155, Est GFR (MDRD) Non-Af 128, BUN/Creatinine Ratio 29.6 H, Glucose 123 H, Calcium 10.2 H, C-React Prot Ext Range 115.00 H Micro: Microbiology 06/27/23 09:50 Urine Catheter - Catheter Urine Culture - Final Culture exhibits no growth. Assessment & Plan Assessment/Plan (1) Wound dehiscence: PLAN: Plan Patient is 3 weeks status post L4-5 laminotomy discectomy. When she did have good initial relief of her radicular symptoms she continues to have axial low back pain and also has baseline lower extremity weakness for which she has been wheelchair-bound for the last 2 years. She has been recovering in the TCU after surgery and has not been able to be compliant with twice daily dressing changes with nursing. She has developed wound dehiscence which seems superficial without any palpable collections. I reviewed the MRI of the lumbar spine done today. These show postsurgical changes of L4-5 laminotomy. Although not discussed in detail in the MRI report, there is a superficial small collection to superficial to the fascia. I recommend surgical I&D with possible wound VAC placement. I will schedule her for this procedure tomorrow afternoon. I went over all risk benefits and alternatives. Risks include but are not limited to persistent infection, bleeding, injury to nerves and vessels, need for deeper washout, delayed wound healing, need for multiple I&D's, need for further surgery, persistent pain, bacteremia, septicemia, need for prolonged antibiotics, DVT, pulmonary embolism, cardiopulmonary event. Patient understands and agrees to proceed with surgical I&D.
[2023-06-30 15:03] LABS: Erythrocyte Sedimentation Rate 42 mm/hr (0-30)
[2023-06-30] MEDS: Cefazolin 3 GM in 0.9% Normal Saline (100mL Bag) 100 ML IV (16:15)
--- NOTE | 2023-06-30 16:48 | OP.PCM_ITS ---
Report of Operation Date of Procedure: 06/30/23 Description of Surgical Findings:: Preoperative diagnosis: Lumbar surgical site infection Postop diagnosis: Same Surgery: Lumbar surgical irrigation debridement, superficial and deep, CPT 36380 Anesthesia: General Findings: Infected granulation tissue in superficial and deep spaces, no pus. Specimens: Superficial and deep culture swabs and tissue for culture Indications: Patient underwent L4-5 laminotomy discectomy about 3 weeks ago. She has baseline cervical and thoracic myelopathy with inability to walk and has been wheelchair bound for the last 2 years. After surgery she was discharged to rehab in TCU. She had a superficial wound dehiscence about 12 days after surgery which was treated with wound care consult and daily dressing changes. She continued to have persistent dehiscence with seropurulent soakage of dressing. After discussing all risk benefits and alternatives, I recommended surgical I&D. All risk benefits and alternatives were discussed in detail. Risks include but are not limited to persistent infection, persistent pain, in jury to nerves and vessels, bleeding, hematoma formation, bacteremia, septicemia, pneumonia, atelectasis, DVT, pulm embolism, cardiopulmonary event, need for further surgeries. Patient understood and consented to surgery. Description of procedure: Patient was identified in the preoperative area using unique patient identifiers. Consent was reviewed. Patient was taken to the OR. Timeout was performed. General anesthesia was given. Patient was carefully positioned in the prone position on Jamal table. All bony prominences were well-padded. Wound was prepped and draped using Betadine. Preoperative antibiotic was held until cultures were taken. Final timeout was performed. Previous incision was opened. Infected granulation tissue was identified in the superficial space tracking down up to the fascia. This was cleared using curettes and sharp dissection to remove infected elation tissue. Swabs and tissue were collected for culture. Deep probing showed infection granulation tissue tracking into the deep space. All previous Vicryl sutures were removed. Deep space were also curetted and tissue samples and swabs for culture were taken. Ancef 3 g was given IV. Thorough irrigation was given through assisted tube with 3 L of normal saline. Laminotomy defect was identified with epidural scar tissue. Dura was not identified or exposed. No dural leak was identified. After thorough irrigation, the fascia was closed with the help of 0 Monocryl single-stranded. Superficial space was then again irrigated thoroughly. Superficial fat was brought closer together with 0 Monocryl. Wide skin defect was still present. Wound VAC sponge was applied with good seal around and connected to the VAC canister. Patient was then turned supine and extubated and taken to PACU in stable condition. Patient will be kept IV antibiotics. ID will be consulted for further recommendations. Surgeon: Kwasi Cheatham Admit VTE Documentation VTE Mechan Device Prophylaxis: SCD's Procedures Musculoskeletal [id number]: Other Procedure See Report
--- NOTE | 2023-06-30 17:13 | PCM.PN.ORT ---
Subjective Subjective Postop day 0 status post lumbar I&D. Patient seen in PACU. Complains of pain. Baseline cervical thoracic myelopathy with lower extremity weakness, 3 weeks status post L4-5 laminotomy discectomy. Objective Data Objective Data Vital Signs: Vital Signs Temp Pulse Resp BP Pulse Ox O2 Del Method 97.7 F L 93 16 164/75 H 96 Room Air 06/30/23 13:41 06/30/23 13:41 06/30/23 13:41 06/30/23 13:41 06/30/23 13:41 06/30/23 13:41 Oxygen Delivery Method Room Air Weight: 253 lb Body Mass Index (BMI) 40.8 Intake & Output: Intake and Output for Last 24 Hours 06/28/23 06/29/23 06/30/23 23:59 23:59 23:59 Intake Total 115 / 115 Balance 115 / 115 Lab / Micro Data Labs: Laboratory Results - last 24 hr 06/30/23 05:35: ESR 42 H, C-React Prot Ext Range 80.10 H Physical Exam Narrative Dressing?CDI wound VAC present. Neurologic exam is baseline. Assessment & Plan Assessment/Plan (1) Wound dehiscence: PLAN: Plan Postop day 0 status post I&D for lumbar surgical site infection. Superficial and deep cultures taken. Wound VAC placed. Will need continued wound care consult. Continue IV Ancef for now. ID consult placed. Will likely change to different empiric antibiotics versus antibiotics per culture results. Will continue to need additional rehab with PT OT. Encourage frequent position changes and sitting up in wheelchair when able. Will continue to follow while in TCU.
== END 2023-06-30 18:10 | disposition skilled nursing facility (03) ==
LOC: SDC 13:33 → AC 13:34
PROVIDERS: PCP Internal Medicine; Referring Provider Orthopaedic Surgery Orthopaedic Surgery of the Spine; Visit Provider Orthopaedic Surgery Orthopaedic Surgery of the Spine
PROC: (CPT 63030; principal; 2023-06-30 14:15)
DX: T81.40XA Infection following a procedure, unspecified, initial encounter (principal); J44.9 Chronic obstructive pulmonary disease, unspecified; I48.91 Unspecified atrial fibrillation; E66.01 Morbid (severe) obesity due to excess calories; Z68.41 Body mass index [BMI] 40.0-44.9, adult; G47.33 Obstructive sleep apnea (adult) (pediatric); E78.00 Pure hypercholesterolemia, unspecified; F32.A Depression, unspecified; I10 Essential (primary) hypertension; E55.9 Vitamin D deficiency, unspecified; Z79.899 Other long term (current) drug therapy; Z87.891 Personal history of nicotine dependence; Z99.3 Dependence on wheelchair; X58.XXXA Exposure to other specified factors, initial encounter
CPT/HCPCS: 22015; 00630; 85652; 86140; 87040; 87070; 87075; 87077; 87102; 87186; 87205; 87206; J7120; J2405

== ENCOUNTER 2023-08-09 05:26 | Emergency (ER) | payer MEDICARE, OTHER, SELFPAY ==
[2023-08-09 05:29] VITALS: BP 122/65; PULSE 88; RESP 18; TEMP 36; O2SAT 91; BMI 39.2
--- NOTE | 2023-08-09 05:55 | CT_ITS ---
STUDY: CT LUMBAR SPINE WITH CONTRAST REASON FOR EXAM: Female, 67 years old patient with low back pain. (OR 06/07 and 06/29) RADIATION DOSAGE (If Supplied By Facility): CTDIvol = ( 60.02 ) mGy, DLP = ( 2038.07 ) mGycm TECHNIQUE: The patient was scanned in a multi detector CT scanner. High resolution transaxial imaging was performed following the intravenous administration of 100 mL of IV Isovue-370. Images were obtained from T11 to sacrum. Sagittal and coronal images were reconstructed. Individualized dose optimization techniques were used for this CT. COMPARISON: CT lumbar spine dated June 23, 2023. FINDINGS: There is straightening of the normal lumbar lordosis. There is no substantial scoliosis. Bones appear osteopenic. There is moderate compression fracture of T11 which appears similar to previous study. There is lucency surrounding the intra-articular screws at T11 suggesting possible loosening. L1-2: There is narrowing of disc space. There is moderately large annular disk bulge and osteophyte complex. There is mild degenerative arthropathy of the facet joints. Bilateral neuroforamina are moderately narrowed. There is mild acquired central canal stenosis. L2-3: There is narrowing of disc space. There is moderately large annular disk bulge and osteophyte complex. There is mild degenerative arthropathy of the facet joints. Bilateral neuroforamina are moderately narrowed. There is mild acquired central canal stenosis. L3-4: There is narrowing of disc space. There is moderately large annular disk bulge and osteophyte complex. There is mild severe degenerative arthropathy of the facet joints. Bilateral neuroforamina are moderately narrowed. There is mild acquired central canal stenosis. L4-5: There is widening of the disc space similar to previous study with vacuum disc phenomenon.There is narrowing of disc space. There is moderately large annular disk bulge and osteophyte complex. There is moderately severe degenerative arthropathy of the facet joints. Bilateral neuroforamina are moderately narrowed. There is thickening of the ligamentum flavum. There is mild acquired central canal stenosis. L5-S1: There is moderately large annular disk bulge and osteophyte complex. There is moderately severe degenerative arthropathy of the facet joints. Bilateral neuroforamina are narrowed without MR evidence for nerve impingement. There is no appreciable acquired central canal stenosis. There is spondylolysis of L5. Normal visualized paraspinous soft tissue structures. There is no demonstrated abnormal enhancement. There is a large left-sided renal cyst. CT/Spine Lumbar WITH Contrast IMPRESSION: 1. Moderately severe multilevel degenerative changes of the lower lumbar spine, as described. 2. Chronic compression fracture at T11 with the loosening of the interpedicular screws. Electronically Signed: Gillian Husain MD at 7:28 EDT ,
--- NOTE | 2023-08-09 06:05 | EX.ED.VIS.PS ---
HPI HPI - Psych History of Present Illness Chief Complaint: Suicidal Informant: patient Narrative Narrative: Patient presents via EMS from [place] secondary to suicidal ideation. Patient is currently at the alf for rehab after having back surgery. It appeared that she had a L4-L5 discectomy on June 07 with a repeat surgery on June 29 for I&D of infected tissue. Patient was initially in TCU and then transferred to [place] for further therapy. She states that she has not had good pain control since her surgery. For the past week or so she has been having suicidal thoughts with plan to overdose. She states she has a friend that goes to her house and brings her belongings as she needs them. She was going to ask her friend to bring a bunch of pills to the alf for her so she could calculate what she needed to take to kill herself. She denies any prior attempts to harm herself. [facility] Medical History (Updated 08/09/23 @ 06:[address] Addie Nickerson MD) Cervical myelopathy Thoracic myelopathy Lumbar radiculopathy, acute Morbid obesity IRIS treated with BiPAP Anxiety and depression History of alcohol abuse Thyroid nodule Former smoker COPD (chronic obstructive pulmonary disease) Atrial fibrillation Neuropathic pain Vitamin D deficiency Hyperlipidemia Herpes zoster Hypertension Osteoarthritis of knees, bilateral Pseudogout of right knee Thoracic spinal stenosis Home Medications ?Medication ?Instructions ?Recorded ?Last Taken ?Type atorvastatin 10 mg tablet 10 mg PO DAILY@2200 Cholesterol 12/08/20 06/29/23 History cholecalciferol (vitamin D3) 25 2,000 unit PO DAILY Supplement 12/08/20 06/29/23 History mcg (1,000 unit) tablet (Vitamin D3) hydroxyzine pamoate 25 mg capsule 25 mg PO QHS anxiety 30 days #30 01/11/21 06/08/23 10:15 Rx caps amlodipine 10 mg tablet 10 mg PO DAILY heart 06/02/23 06/29/23 History acetaminophen 500 mg tablet 1,000 mg (2 x 500 mg) PO Q8 severe 06/09/23 06/30/23 13:15 Rx pain #0 tabs sennosides 8.6 mg-docusate sodium 2 tab PO BID constipation #0 tabs 06/09/23 06/29/23 Rx 50 mg tablet (Stool Softener-Stimulant Laxative) arginine 7 gram-glutam 7 1 packet PO BIDCM #0 ea 07/17/23 Unknown Rx gram-CaHMB 1.5 [id number]-min oral pwd pkt (Terrance (with collagen)) bisacodyl 10 mg rectal suppository 10 mg SC DAILY PRN Constipation #0 07/17/23 Unknown Rx ea clonidine HCl 0.1 mg tablet 0.1 mg PO BID #0 tabs 07/17/23 Unknown Rx losartan 50 mg tablet 50 mg PO DAILY #0 tabs 07/17/23 Unknown Rx losartan 50 mg tablet 50 mg PO QHS #0 tabs 07/17/23 Unknown Rx menthol 0.44 %-zinc oxide 20.6 % 1 applic topical TID #0 grams 07/17/23 Unknown Rx topical ointment (Calmoseptine) nystatin 100,000 unit/gram topical 1 applic topical BID #0 grams 07/17/23 Unknown Rx powder (Nyamyc) oxycodone 5 mg tablet 5 mg PO Q4H PRN PRN Pain Score 07/17/23 Unknown Rx 6-10 3 days #18 tabs pantoprazole 40 mg tablet,delayed 40 mg PO BID #0 tabs 07/17/23 Unknown Rx release sertraline 50 mg tablet 150 mg (3 x 50 mg) PO DAILY #0 tabs 07/17/23 Unknown Rx gabapentin 600 mg tablet 800 mg PO TIDCM nerve pain 08/09/23 Unknown History lidocaine 4 % topical patch 1 patch topical DAILY 08/09/23 Unknown History (Aspercreme (lidocaine)) tizanidine 2 mg tablet 4 mg PO Q6 08/09/23 Unknown History Allergy/AdvReac Type Severity Reaction Status Date / Time hydrocodone (From Vicodin) Allergy Anaphylaxis Verified 08/09/23 05:38 lorazepam (From Ativan) Allergy Hives Verified 08/09/23 05:38 neomycin Allergy Hives Verified 08/09/23 05:38 Family History Mother No problems noted. Father Leukemia Diabetes Surgical History History of lumbar laminectomy History of back surgery History of back surgery History of adenoidectomy Hx of tonsillectomy Social History household members: none Smoking Status: Former smoker how long ago did patient quit smoking: Quit 45 yrs prior, smoked 1 ppd starting age 19 until quit. alcohol intake: former details: Drank heavily prior, sober x 45 years. substance use type: does not use ROS ROS ED Constitutional Constitutional ED: Denies chills or fever(s) Eyes Eyes: Denies discharge from eye(s) ENT ENT ED: Denies discharge from eye(s), rhinorrhea or sore throat Cardiovascular Cardiovascular: Denies chest pain Respiratory/Chest Respiratory/Chest: Denies cough or dyspnea Gastrointestinal Gastrointestinal: Denies abdominal pain, nausea or vomiting Genitourinary Genitourinary ED: Denies dysuria Musculoskeletal Musculoskeletal: Reports back pain Integumentary Denies Abrasions or rash Neurologic Neurologic: Denies headache(s) or weakness Psychiatric Psychiatric: Reports depression and suicidal ideation Endocrine Endocrinology: Denies polydipsia or polyuria Allergic/Immunologic Allergic/Immunologic ED: Denies lip swelling or urticaria EXAM Physical Exam Const Vital Signs: 08/09/23 05:29 Temperature 96.8 F L Temperature Source Temporal Pulse Rate 88 Respiratory Rate 18 Blood Pressure 122/65 H Blood Pressure Mean 84 Pulse Ox 91 Oxygen Delivery Method Room Air Positive well nourished and well developed General Appearance ED: well developed HEENT Reports moist mucous membranes Eyes EOMs intact bilaterally Resp normal respiratory effort and clear to auscultation bilaterally Cardio Rate: regular rate Rhythm: regular rhythm GI non-tender Palpation: soft Extremity Extremity Narrative: Chronic lower extremity muscle wasting. Neuro oriented x3 Psych cooperative Activity / Motor Behavior: appropriate eye contact Speech: normal speech Mood & Affect: depressed and tearful Thought Content: suicidality MDM MDM MDM Narrative Medical decision making narrative: Patient's previous hospital admissions for her back surgery are reviewed. In addition to the test required for psychiatric clearance, I will obtain a CT of the lumbar spine with IV contrast to evaluate for any significant postoperative changes causing her increased pain. History & Record Review Discussion w/independent historian: Patient Additional record(s) reviewed:: Prior inpatient record and Prior labs Lab Data Attestation: I reviewed the patient's lab results. Labs: Laboratory Results - last 24 hr 08/09/23 08/09/23 06:05 06:23 WBC 10.2 RBC 4.20 Hgb 10.2 L Hct 33.6 L MCV 80.0 L MCH 24.3 L MCHC 30.4 L RDW Std Deviation 43.4 RDW Coeff of Laila 14.8 H Plt Count 555 H MPV 8.8 Immature Gran % (Auto) 0.700 Neut % (Auto) 73.4 H Lymph % (Auto) 13.1 L [place] % (Auto) 9.5 Eos % (Auto) 2.8 Baso % (Auto) 0.5 Absolute Neuts (auto) 7.5 Absolute Lymphs (auto) 1.33 Nucleated RBC % 0 Sodium 136 Potassium 4.0 Chloride 99 Carbon Dioxide 32.0 Anion Gap 5 BUN 18 Creatinine 0.48 L Estim Creat Clear Calc 83.46 Est GFR (MDRD) Af Amer 163 Est GFR (MDRD) Non-Af 135 BUN/Creatinine Ratio 37.2 H Glucose 144 H Calcium 10.4 H Urine Opiates Screen POSITIVE H Urine Methadone Screen NEGATIVE Ur Barbiturates Screen NEGATIVE Ur Phencyclidine Scrn NEGATIVE Ur Amphetamines Screen NEGATIVE MDMA (Ecstasy) Screen NEGATIVE U Benzodiazepines Scrn POSITIVE H Urine Cocaine Screen NEGATIVE U Cannabinoids Screen NEGATIVE Ur Drug Screen Comment Ethyl Alcohol < 3.0 Treatment and Re-Evaluation Narrative: CBC was normal white count 10.2 with 73% neutrophils. Hemoglobin is 10.2. Chemistry studies unremarkable. Glucose is 144. Renal function is normal. Urine tox screen is positive for opiates and benzos. EtOH is less than 3. CT scan of the lumbar spine with contrast has been obtained and is currently pending. Patient be signed out to oncoming physician. If she has any acute findings on her CT of the lumbar spine, Dr. Curry, her surgeon, will be contacted. If not, plan will be to have crisis evaluate the patient. Discharge Plan Triage Chief Complaint: Suicidal ED Provider: Addie Nickerson Dx/Rx/DC Orders Clinical Impression: Suicidal ideation, Back pain Prescriptions: No Action atorvastatin 10 MG tablet 10 mg PO DAILY@2200 cholecalciferol (vitamin D3) [Vitamin D3] 1,000 UNIT tablet 2,000 unit PO DAILY hydroxyzine pamoate 25 mg Capsule 25 mg PO QHS 30 Days Qty: 30 0RF Patient Comments: PT UNSURE IF SHE TAKES THIS MED amlodipine 10 mg tablet 10 mg PO DAILY sennosides-docusate sodium [Stool Softener-Stimulant Laxat] 8.6-50 mg Tablet 2 tab PO BID Qty: 0 0RF acetaminophen 500 mg Tablet 1,000 mg PO Q8 Qty: 0 0RF Rx Instructions: 3 times daily for 1 week and then 3 times daily as needed for severe pain clonidine HCl 0.1 mg Tablet 0.1 mg PO BID Qty: 0 0RF bisacodyl 10 mg Suppository 10 mg SC DAILY PRN (Reason: Constipation) Qty: 0 0RF menthol-zinc oxide [Calmoseptine] 0.44-20.6 % Ointment 1 applic topical TID Qty: 0 0RF Protocol: *Topical Application Instructions APPLICATION INSTRUCTIONS: apply b\l buttock tid Terrance (with collagen) 7-7-1.5 gram Powder In Packet 1 packet PO BIDCM Qty: 0 0RF nystatin [Nyamyc] 100,000 unit/gram Powder 1 applic topical BID Qty: 0 0RF Protocol: *Topical Application Instructions APPLICATION INSTRUCTIONS: UNDER BREASTS,ABDOMAL FOLDS losartan 50 mg Tablet 50 mg PO DAILY Qty: 0 0RF losartan 50 mg Tablet 50 mg PO QHS Qty: 0 0RF pantoprazole 40 mg Tablet,Delayed Release (Dr/Ec) 40 mg PO BID Qty: 0 0RF sertraline 50 mg Tablet 150 mg PO DAILY Qty: 0 0RF oxycodone 5 mg Tablet 5 mg PO Q4H PRN PRN (Reason: Pain Score 6-10) 3 Days Qty: 18 0RF lidocaine [Aspercreme (lidocaine)] 4 % adhesive patch,medicated 1 patch topical DAILY Rx Instructions: may leave on for up to 12 hrs gabapentin 600 mg Tablet 800 mg PO TIDCM tizanidine 2 mg Tablet 4 mg PO Q6 Primary Care Provider: Alissa Doty Referrals: Alissa Doty MD [Primary Care Provider] - Print Language: Citizen Of [place]
[2023-08-09 06:13] LABS: Absolute Lymphocyte Count 1.33 X10^3/uL (0.83-4.51); Absolute Neutrophil Count 7.5 X10^3/uL (2.0-7.7); Basophil# 0.05 X10^3/uL; Basophil% 0.5 % (0-1); Eosinophil# 0.28 X10^3/uL; Eosinophils% 2.8 % (0-5); Hematocrit 33.6 % (37-47); Hemoglobin 10.2 g/dL (12.0-15.0); Lymphocyte # 1.33 X10^3/ul (0.83-4.51); Lymphocyte % 13.1 % (19-41); Mean Corp Hgb Conc 30.4 g/dL (32-36); Mean Corpuscular Hgb 24.3 pg (27.0-32.0); Mean Platelet Vol. 8.8 fl (6.2-12.0); Monocyte# 0.97 X10^3/uL; Monocyte% 9.5 % (0-10); NRBC Flagged by Analyzer 0 % (0-5); Neutrophil # 7.47 X10^3/uL (2.7-7.7); Neutrophil % 73.4 % (47-70); Platelet Count 555 K/mm3 (150-450); RBC Distribution Width CV 14.8 % (11.6-14.6); RBC Distribution Width SD 43.4 fl (35.1-43.9); White Blood Count 10.2 K/mm3 (4.4-11.0)
[2023-08-09 06:27] LABS: Alcohol, Blood (Medical)-Serum < 3.0 mg/dL; Anion Gap 5 (5-15); BUN 18 mg/dL (7-18); BUN/Creat Ratio 37.2 RATIO (10-20); Calcium,Total 10.4 mg/dL (8.5-10.1); Chloride 99 mmol/L (98-107); Creatinine, Serum 0.48 mg/dL (0.55-1.02); EST Glomerular Filtration Rate 135 mL/min (>60); Est Glom Filt Rate - Afr Amer 163 mL/min (>60); Estimated Creatinine Clearance 83.46 ml/min; Glucose 144 mg/dL (74-106); Sodium Level 136 mmol/L (136-145)
[2023-08-09 06:28] VITALS: BP 124/68; PULSE 89; RESP 18; O2SAT 91
[2023-08-09 06:40] LABS: Amphetamine Urine VISTA NEGATIVE (<1000 ng/mL); Barbiturate Urine VISTA NEGATIVE (< 200 ng/mL); Benzodiazepine Urine VISTA POSITIVE (< 200 ng/mL); Cocaine Urine VISTA NEGATIVE (< 300 ng/mL); Ecstacy Urine VISTA NEGATIVE (< 500 ng/mL); Methadone Urine VISTA NEGATIVE (< 300 ng/mL); PCP Urine VISTA NEGATIVE (< 25 ng/mL); THC Urine VISTA NEGATIVE (< 50 ng/mL); Vista UDS pH Range 6
[2023-08-09 07:00] VITALS: BP 128/77; PULSE 74; RESP 18; O2SAT 95
[2023-08-09 08:00] VITALS: BP 122/64; PULSE 82; RESP 18; O2SAT 96
[2023-08-09 08:32] VITALS: BP 122/64; PULSE 82; RESP 18; O2SAT 96
[2023-08-09] MEDS: oxyCODONE 5 MG Tablet PO (12:17)
[2023-08-09 14:34] VITALS: BP 134/77; PULSE 72; RESP 16; TEMP 36.7; O2SAT 97
--- NOTE | 2023-08-09 14:47 | ED.RN ---
REPORT CALLED TO JACKELINE AT [facility]
== END 2023-08-09 14:48 | disposition skilled nursing facility (03) ==
PROVIDERS: Emergency Provider Emergency Medicine; PCP Internal Medicine; Visit Provider Emergency Medicine
DX: R45.851 Suicidal ideations (principal); J44.9 Chronic obstructive pulmonary disease, unspecified; M54.9 Dorsalgia, unspecified; I10 Essential (primary) hypertension; E78.5 Hyperlipidemia, unspecified; Z87.891 Personal history of nicotine dependence; Z98.890 Other specified postprocedural states; F32.A Depression, unspecified
CPT/HCPCS: 72132; 80048; 80307; 80320; 85025; 99285; J7030; Q9967; A4216; G0480

== ENCOUNTER → 2023-10-20 05:00 | Outpatient (REF) | payer OTHER, SELFPAY ==
[2023-10-20 10:07] LABS: AST(SGOT) 10 U/L (15-37); Alanine Aminotransfer ALT/SGPT 12 U/L (13-56); Albumin, Serum 2.7 g/dL (3.2-5.0); Alkaline Phosphatase 108 U/L (45-117); Bilirubin, Direct < 0.05 mg/dL (0.00-0.30); Globulin 3.5 g/dL (2.2-4.2); Protein, Total 6.2 g/dL (6.4-8.2)
[2023-10-20 10:17] LABS: Vitamin D,25 Hydroxy 35.6 ng/mL
== END ==
LOC: OLS.WHLTCC 05:00
PROVIDERS: PCP Internal Medicine; Visit Provider Internal Medicine
DX: Z48.811 Encounter for surgical aftercare following surgery on the nervous system (principal); E55.9 Vitamin D deficiency, unspecified; M48.062 Spinal stenosis, lumbar region with neurogenic claudication; M54.16 Radiculopathy, lumbar region; T81.31XD Disruption of external operation (surgical) wound, not elsewhere classified, subsequent encounter
CPT/HCPCS: 36415; 80076; 82306

== ENCOUNTER → 2024-01-19 | Outpatient (REF) | payer MEDICARE, OTHER, SELFPAY ==
[2024-01-19 08:04] LABS: AST(SGOT) 12 U/L (15-37); Alanine Aminotransfer ALT/SGPT 11 U/L (13-56); Albumin, Serum 3.1 g/dL (3.2-5.0); Alkaline Phosphatase 108 U/L (45-117); Bilirubin, Direct 0.09 mg/dL (0.00-0.30); Globulin 3.2 g/dL (2.2-4.2); Protein, Total 6.3 g/dL (6.4-8.2)
[2024-01-19 09:04] LABS: Vitamin D,25 Hydroxy 31.5 ng/mL
== END ==
LOC: OLS.WHLTCC 05:00
PROVIDERS: PCP Internal Medicine; Visit Provider Internal Medicine
DX: E55.9 Vitamin D deficiency, unspecified (principal); M54.16 Radiculopathy, lumbar region
CPT/HCPCS: 36415; 80076; 82306

== ENCOUNTER → 2024-04-09 05:00 | Outpatient (REF) | payer MEDICARE, OTHER, SELFPAY ==
[2024-04-09 08:27] LABS: Vitamin D,25 Hydroxy 36.2 ng/mL
== END ==
LOC: OLS.WHLTCC 05:00
PROVIDERS: PCP Internal Medicine; Visit Provider Internal Medicine
DX: M48.062 Spinal stenosis, lumbar region with neurogenic claudication (principal); M54.16 Radiculopathy, lumbar region; Z48.811 Encounter for surgical aftercare following surgery on the nervous system; T81.31XD Disruption of external operation (surgical) wound, not elsewhere classified, subsequent encounter; E55.9 Vitamin D deficiency, unspecified
CPT/HCPCS: 36415; 82306

== ENCOUNTER 2024-12-30 10:22 | Inpatient (IN) | payer MEDICARE, OTHER, SELFPAY ==
[2024-12-30] VITALS (11 sets, daily range): BP systolic 122–165; BP diastolic 60–86; PULSE 82–89; RESP 14–19; TEMP 36.6–37.1; O2SAT 62–97; BMI 56.2; BMI 54.6
--- NOTE | 2024-12-30 10:41 | RAD_ITS ---
PROCEDURE: CHEST 1 VIEW (PORTABLE) 12/30/2024 REASON FOR EXAM: DYSPNEA TECHNIQUE: Frontal view of the chest. COMPARISON: None FINDINGS: Hardware: EKG electrodes are seen. Heart: Moderate cardiomegaly. Atherosclerotic calcification of the aortic arch. Lungs: Vascular congestion and CHF. Bones: Degenerative changes are identified within the thoracic spine. Prior intrapedicular screw and asia fixation of the lower thoracic and upper lumbar spine. RAD/Chest 1 View (Portable) IMPRESSION: Cardiomegaly and CHF. Reading Location: [id number]
--- NOTE | 2024-12-30 10:41 | EKG12_ITS ---
Test Reason : Blood Pressure : */* mmHG Vent. Rate : 81 BPM Atrial Rate : 81 BPM P-R Int : 162 ms QRS Dur : 80 ms QT Int : 364 ms P-R-T Axes : 60 84 43 degrees QTcB Int : 422 ms Normal sinus rhythm Normal ECG Confirmed by MARILEE SPIVEY, PETRONA ([id number]), copy editor MICHAEL HANDY ([id number]) on 12/31/2024 12:21:22 PM Referred By: Confirmed By: PETRONA HUNT MD
--- NOTE | 2024-12-30 10:42 | ED.VIS.DYS ---
HPI History of Present Illness Chief Complaint: Shortness of Breath Detail of Chief Complaint: Shortness of breath Informant: patient Narrative Narrative: Patient presents with shortness of breath that started 2 or 3 days ago. Complains of exertional symptoms. She complains of leg edema. EMS was called today and they noted her O2 sat was 60%. Patient placed on oxygen. She has had no fever or cough. She denies chest pain. She denies recent travel or surgery. Patient coming from home but does not ambulate normally uses a wheelchair and has help at home. [facility] Medical History Cervical myelopathy Thoracic myelopathy Lumbar radiculopathy, acute Morbid obesity IRIS treated with BiPAP Anxiety and depression History of alcohol abuse Thyroid nodule Former smoker COPD (chronic obstructive pulmonary disease) Atrial fibrillation Neuropathic pain Vitamin D deficiency Hyperlipidemia Herpes zoster Hypertension Osteoarthritis of knees, bilateral Pseudogout of right knee Thoracic spinal stenosis Home Medications ?Medication ?Instructions ?Recorded ?Last Taken ?Type atorvastatin 10 mg tablet 10 mg PO DAILY@2200 Cholesterol 12/08/20 12/29/24 History hydroxyzine pamoate 25 mg capsule 25 mg PO QHS anxiety 30 days #30 01/11/21 12/29/24 Rx caps amlodipine 10 mg tablet 10 mg PO DAILY heart 06/02/23 12/30/24 History acetaminophen 500 mg tablet 1,000 mg (2 x 500 mg) PO Q8 severe 06/09/23 12/30/24 Rx pain #0 tabs pantoprazole 40 mg tablet,delayed 40 mg PO BID #0 tabs 07/17/23 12/30/24 Rx release duloxetine 60 mg capsule,delayed 60 mg PO DAILY 08/25/23 12/30/24 History release (Cymbalta) duloxetine 30 mg capsule,delayed 30 mg PO QHS mood 12/30/24 12/29/24 History release gabapentin 800 mg tablet 800 mg PO TID 12/30/24 12/30/24 History guaifenesin 600 mg tablet, 600 mg PO BID PRN congestion 12/30/24 12/29/24 History extended release 12 hr (Mucinex) losartan 50 mg tablet 50 mg PO BID 12/30/24 12/30/24 History solifenacin 5 mg tablet 5 mg PO DAILY 11/17/25 11/17/25 History tizanidine 4 mg tablet 4 mg PO TID 12/30/24 Unknown History Allergy/AdvReac Type Severity Reaction Status Date / Time hydrocodone (From Vicodin) Allergy Anaphylaxis Verified 12/30/24 10:24 lorazepam (From Ativan) Allergy Hives Verified 12/30/24 10:24 neomycin Allergy Hives Verified 12/30/24 10:24 Family History Mother No problems noted. Father Leukemia Diabetes Surgical History History of lumbar laminectomy History of back surgery History of back surgery History of adenoidectomy Hx of tonsillectomy Social History household members: none Smoking Status: Former smoker how long ago did patient quit smoking: Quit 45 yrs prior, smoked 1 ppd starting age 19 until quit. alcohol intake: former details: Drank heavily prior, sober x 45 years. substance use type: does not use ROS ROS ED Review of Systems ROS Unobtainable: other Constitutional Constitutional ED: Reports lethargy; Denies chills, fever(s), sweats or weight loss Eyes Eyes: Denies blurry vision, change in vision or diplopia ENT ENT ED: Denies rhinorrhea or sore throat Cardiovascular Cardiovascular: Denies chest pain, orthopnea or racing heartbeat Respiratory/Chest Respiratory/Chest: Reports dyspnea and dyspnea on exertion; Denies cough, orthopnea or sputum Gastrointestinal Gastrointestinal: Denies abdominal pain, diarrhea, nausea or vomiting Genitourinary Genitourinary ED: Denies dysuria, hematuria or urinary frequency Musculoskeletal Musculoskeletal: Denies arthralgias, back pain, myalgias or neck pain Integumentary Denies abscess, Abrasions or rash Neurologic Neurologic: Denies headache(s) or weakness Psychiatric Psychiatric: Denies anxiety, depression or suicidal thoughts Endocrine Endocrinology: Denies polydipsia, polyphagia or polyuria Hematologic/Lymphatic Hematologic/Lymphatic: Denies easy bleeding, easy bruising or lymphadenopathy Allergic/Immunologic Allergic/Immunologic ED: Denies mouth swelling, tongue swelling or urticaria EXAM Physical Exam Const Vital Signs: 12/30/24 10:24 12/30/24 10:35 12/30/24 10:38 Temperature 98.7 F 98.7 F Temperature Source Oral Oral Pulse Rate 82 88 Respiratory Rate 16 19 H Respiratory Effort Blood Pressure 124/60 H 124/60 H Blood Pressure Mean 81 81 Pulse Ox 62 91 92 Oxygen Delivery Method Room Air Nasal Cannula Nasal Cannula Oxygen Flow Rate (L/min) 7 7 12/30/24 11:01 12/30/24 11:23 12/30/24 11:35 Temperature 98.7 F Temperature Source Oral Pulse Rate 84 Respiratory Rate 19 H Respiratory Effort Short of Breath Blood Pressure 144/82 H Blood Pressure Mean 102 Pulse Ox 97 Oxygen Delivery Method Nasal Cannula Nasal Cannula Oxygen Flow Rate (L/min) 7 7 12/30/24 12:00 12/30/24 13:00 12/30/24 14:00 Temperature 98.7 F 98.7 F 98.7 F Temperature Source Oral Oral Oral Pulse Rate 88 89 85 Respiratory Rate 14 17 18 Respiratory Effort Blood Pressure 137/82 H 146/86 H 122/68 H Blood Pressure Mean 100 106 86 Pulse Ox 94 96 93 Oxygen Delivery Method Nasal Cannula Nasal Cannula Nasal Cannula Oxygen Flow Rate (L/min) 5 5 5 12/30/24 15:00 Temperature Temperature Source Pulse Rate 86 Respiratory Rate 15 Respiratory Effort Blood Pressure 142/84 H Blood Pressure Mean 103 Pulse Ox 93 Oxygen Delivery Method Nasal Cannula Oxygen Flow Rate (L/min) 5 Positive well nourished and well developed General Appearance ED: well developed and NAD HEENT Reports TM's clear and moist mucous membranes normocephalic and atraumatic; Negative for trauma or tenderness Tympanic Membrane ED: Yes TM's clear Eyes PERRL and EOMs intact bilaterally General Eye ED: Negative for pale conjunctiva or scleral icterus Neck no lymphadenopathy, supple and no JVD General: Negative for tenderness Chest Wall inspection of chest normal and palpation of chest normal Chest: Negative for tenderness Resp normal respiratory effort and clear to auscultation bilaterally Resp Narrative: Diminished breath sounds bilaterally with some faint rales in the bases. No accessory muscle use or retractions. Effort and Inspection: Negative for respiratory distress or pain with movement Auscultation: Negative for rhonchi, wheezes or diminished lung sounds Cardio regular rate, regular rhythm, S1 normal heart sound, S2 normal heart sound and no murmurs Peripheral Pulses: pulses 2+ throughout GI normal to inspection, nondistended, normoactive bowel sounds, soft to palpation, non-tender, non-distended and no masses GI Narrative: Morbidly obese. Abdomen nontender. Back/Spine no CVA tenderness and no thoracic nor lumbar tenderness Extremity normal to inspection General Extremety ED: Negative for edema General Extremity: Negative for edema Neuro oriented x3, CN's II-XII intact bilaterally, no sensory deficits noted and gait normal Sensorium / Orientation: awake, alert, oriented to person, oriented to place and oriented to time Motor Exam: strength 5/5 throughout and strength abnormal Psych mental status grossly normal Skin no rashes or lesions noted and no wounds MDM MDM MDM Narrative Medical decision making narrative: Patient presents with dyspnea and hypoxemia at home. Complains of leg edema. Denies chest pain. No fever or infectious signs or symptoms. EKG obtained arrival showed a sinus rhythm with rate of 81 bpm with no acute ST segment changes. CBC with differential showed a white count of 9.0 with hemoglobin 11.3 and platelet count 244. Chemistries showed a sodium of 144 with potassium 4.4 and chloride of 106. BUN was 20 and creatinine 0.53. Glucose 129. Troponin was elevated 59. 2-hour delta troponin was lower at 55. BT [employer] C[employer]GIVER was elevated at 1627. D-dimer was elevated therefore CTA of the chest was obtained which did not show any evidence of PE. She had bilateral pleural effusions and a small pericardial effusion. Lab Data Attestation: I reviewed the patient's lab results. Labs: Laboratory Results - last 24 hr 12/30/24 12/30/24 12/30/24 10:55 11:20 13:57 WBC 9.0 RBC 4.74 Hgb 11.3 L Hct 39.8 MCV 84.0 MCH 23.8 L MCHC 28.4 L RDW Std Deviation 50.3 H RDW Coeff of Laila 16.8 H Plt Count 244 MPV 9.5 Immature Gran % (Auto) 1.100 H Neut % (Auto) 78.9 H Lymph % (Auto) 10.3 L [place] % (Auto) 6.7 Eos % (Auto) 2.3 Baso % (Auto) 0.7 Absolute Neuts (auto) 7.1 Absolute Lymphs (auto) 0.93 Nucleated RBC % 1.1 D-Dimer Quant (PE/DVT) Cancelled 1.10 H* Sodium 144 Potassium 4.4 Chloride 106 Carbon Dioxide 31.2 Anion Gap 7 BUN 20 H Creatinine 0.53 L Estim Creat Clear Calc 100.57 Est GFR (MDRD) Non-Af 99 BUN/Creatinine Ratio 37.2 H Glucose 129 H Calcium 9.1 Troponin T High Sens 59 H* Troponin T Hi Sens 2 Hr 55 H* NT pro BNP II 1627 H Radiography Diagnostic Testing: Clinical Impression(s) from Imaging Studies Chest X-Ray 12/30/24 10:41 IMPRESSION: Cardiomegaly and CHF. Reading Location: [facility] Chest CTA 12/30/24 12:33 IMPRESSION: No evidence of pulmonary embolism. Bilateral pleural effusions right greater than left with bibasilar atelectasis and/or infiltrates worse on the right side. Small pericardial effusion. Coronary artery calcification. Reading Location: [facility] 1 view chest x-ray obtained interpreted by myself as cardiomegaly and some pulmonary congestion. Radiology was in agreement felt there was cardiomegaly and CHF. EKG Initial EKG: Attestation: I personally reviewed and interpreted this EKG as follows: Comments: Sinus rhythm with rate of 81 bpm with no acute ST segment change Discharge Plan Dx/Rx/DC Orders Clinical Impression: Respiratory failure, CHF (congestive heart failure), Hypoxemia Disposition Disposition: [facility]
[2024-12-30 11:11] LABS: Hematocrit 39.8 % (37-47); Hemoglobin 11.3 g/dL (12.0-15.0); Immature Granulocytes Count 0.100 X10^3/uL (0.0-0.0); Mean Corp Hgb Conc 28.4 g/dL (32-36); Mean Corpuscular Volume 84.0 fL (81-99); Mean Platelet Vol. 9.5 fl (6.2-12.0); NRBC Flagged by Analyzer 1.1 % (0-5); Platelet Count 244 K/mm3 (150-450); RBC Distribution Width CV 16.8 % (11.6-14.6); RBC Distribution Width SD 50.3 fl (35.1-43.9); Red Blood Count 4.74 M/mm3 (4.2-5.4); White Blood Count 9.0 K/mm3 (4.4-11.0)
[2024-12-30 11:38] LABS: Anion Gap 7 (5-15); BUN 20 mg/dL (4-19); BUN/Creat Ratio 37.2 RATIO (10-20); Calcium,Total 9.1 mg/dL (7.6-11.0); Carbon Dioxide 31.2 mmol/L (21.0-32.0); Chloride 106 mmol/L (98-108); Estimated Creatinine Clearance 100.57 ml/min (50-250); Glucose 129 mg/dL (70-99); Potassium 4.4 mmol/L (3.3-5.1)
[2024-12-30 11:46] LABS: D-Dimer Quantitative (DVT/PE) 1.10 FEU/ug/m (0.27-0.49)
--- NOTE | 2024-12-30 12:33 | CT_ITS ---
PROCEDURE: CTA CHEST W/WO CONTRAST 12/30/2024 REASON FOR EXAM: DYSPNEA, HYPOXIA, ELEVATED D-DIMER TECHNIQUE: Procedure Code: [id number] Modality: CT Procedure: CTA CHEST W/WO CONTRAST Multiplanar Sagittal and Coronal images were obtained. 3D post processing was performed CONTRAST: Isovue 370 VOLUME: 100 mL One or more dose reduction techniques were used (e.g., Automated exposure control, adjustment of the mA and/or kV according to patient size, use of iterative reconstruction technique). RADIATION DOSE SUMMARY: CTDlvol: 19.6 mGy DLP: 676.57 mGycm COMPARISON: Prior chest radiograph done earlier in the day. FINDINGS: Hardware: EKG electrodes are seen. Lymph nodes: No hilar or mediastinal lymphadenopathy is seen. Heart: Cardiomegaly. Anterior pericardial effusion. Coronary artery calcification. Thoracic Aorta: No thoracic aortic aneurysm or dissection. Mild atherosclerotic plaque formation. Pulmonary Vessels: No evidence of pulmonary embolism. Lungs and Airways: Bilateral pleural effusions right greater than left with bibasilar compressive atelectasis and/or infiltrates worse on the right side. Vascular congestion and mild CHF. Pleura: Bilateral pleural effusions right greater than left. Upper Abdomen: Unremarkable Bones: Bone windows are unremarkable. Prior intrapedicular screw and asia fixation of the lower thoracic and upper lumbar spine. CT/CTA Chest W/WO Contrast IMPRESSION: No evidence of pulmonary embolism. Bilateral pleural effusions right greater than left with bibasilar atelectasis and/or infiltrates worse on the right side. Small pericardial effusion. Coronary artery calcification. Reading Location: [id number]
[2024-12-30 12:34] LABS: Pro- Brain NATRIURETIC PEPTIDE 1627 pg/mL (<=900); Troponin T High Sensitivity 59 ng/L (<=14)
[2024-12-30 14:34] LABS: Troponin T High Sens 2 HR 55 ng/L (<=14)
--- NOTE | 2024-12-30 15:23 | PCM.HP.STD ---
[facility] - General General Date of Admission: 12/30/24 Date of Service: 12/30/24 Chief Complaint: Shortness of breath and lower extremity swelling HPI Narrative BARBARA KARIMI, is a 69 F who presented to [facility] ED on 12/30/2024 with shortness of breath and lower extremity swelling. Medical history significant for class III obesity with BMI 56, IRIS with BiPAP nonadherence, chronic back pain, hypertension and hyperlipidemia. She lives at home alone. She previously required an approximate 10-month stay at [facility] after a back procedure, and then she had 24-hour assistance at home through July. However, since July she has had no help at home and has been trying to get a new agency to provide care at home for her. She has not been compliant with her BiPAP for the past several months due to difficulty getting out of bed or out of a chair to set it up. She has had worsening lower extremity swelling now for the past 2 weeks and then became short of breath about 2 to 3 days ago. She typically uses a wheelchair for ambulation. Denies any recent upper respiratory infectious symptoms. Denies any chest pain. EMS was called for today and her oxygen saturation was 60% at home. On arrival to the ED she was satting in the low to mid 90s on 5 L nasal cannula at rest. CTA chest showed no PE, did show bilateral pleural effusions right greater than left with bibasilar atelectasis, small pericardial effusion and coronary artery calcification noted. BNP 1627. Troponin trend 59 > 55. EKG with normal sinus rhythm, no ST changes. She otherwise was in normal sinus rhythm, afebrile and mildly hypertensive to the 140s to 150 systolic. Given suspected CHF exacerbation with hypoxia, hospitalist was contacted for admission. I saw the patient at bedside in the ED. Patient was laying back in bed comfortably, conversing normally, in no acute distress. She was breathing comfortably on 5 L nasal cannula. She was given a dose of IV Lasix 40 mg in the ED and has urinated several times since then. No other acute concerns currently. Will be admitted for further management. [facility] Medical History Cervical myelopathy Thoracic myelopathy Lumbar radiculopathy, acute Morbid obesity IRIS treated with BiPAP Anxiety and depression History of alcohol abuse Thyroid nodule Former smoker COPD (chronic obstructive pulmonary disease) Atrial fibrillation Neuropathic pain Vitamin D deficiency Hyperlipidemia Herpes zoster Hypertension Osteoarthritis of knees, bilateral Pseudogout of right knee Thoracic spinal stenosis Home Medications ?Medication ?Instructions ?Recorded ?Last Taken ?Type atorvastatin 10 mg tablet 10 mg PO DAILY@2200 Cholesterol 12/08/20 12/29/24 History hydroxyzine pamoate 25 mg capsule 25 mg PO QHS anxiety 30 days #30 01/11/21 12/29/24 Rx caps amlodipine 10 mg tablet 10 mg PO DAILY heart 06/02/23 12/30/24 History acetaminophen 500 mg tablet 1,000 mg (2 x 500 mg) PO Q8 severe 06/09/23 12/30/24 Rx pain #0 tabs pantoprazole 40 mg tablet,delayed 40 mg PO BID #0 tabs 07/17/23 12/30/24 Rx release duloxetine 60 mg capsule,delayed 60 mg PO DAILY 08/25/23 12/30/24 History release (Cymbalta) duloxetine 30 mg capsule,delayed 30 mg PO QHS mood 12/30/24 12/29/24 History release gabapentin 800 mg tablet 800 mg PO TID 12/30/24 12/30/24 History guaifenesin 600 mg tablet, 600 mg PO BID PRN congestion 12/30/24 12/29/24 History extended release 12 hr (Mucinex) losartan 50 mg tablet 50 mg PO BID 12/30/24 12/30/24 History solifenacin 5 mg tablet 5 mg PO DAILY 12/30/24 12/30/24 History tizanidine 4 mg tablet 4 mg PO TID 12/30/24 Unknown History Allergy/AdvReac Type Severity Reaction Status Date / Time hydrocodone (From Vicodin) Allergy Anaphylaxis Verified 12/30/24 10:24 lorazepam (From Ativan) Allergy Hives Verified 12/30/24 10:24 neomycin Allergy Hives Verified 12/30/24 10:24 Family History Mother No problems noted. Father Leukemia Diabetes Surgical History History of lumbar laminectomy History of back surgery History of back surgery History of adenoidectomy Hx of tonsillectomy Social History household members: none Smoking Status: Former smoker how long ago did patient quit smoking: Quit 45 yrs prior, smoked 1 ppd starting age 19 until quit. alcohol intake: former details: Drank heavily prior, sober x 45 years. substance use type: does not use ROS Constitutional Constitutional: Reports fatigue; Denies chills, fever(s) or weakness Eyes Eyes: Denies change in vision Cardiovascular Cardiovascular: Reports dyspnea on exertion, edema and orthopnea; Denies chest pain, lightheadedness or palpitations Respiratory/Chest Respiratory/Chest: Reports shortness of breath at rest; Denies cough, productive cough or wheezing Gastrointestinal Gastrointestinal: Denies abdominal pain, constipation, diarrhea, nausea or vomiting Genitourinary Genitourinary: Denies dysuria Musculoskeletal Musculoskeletal: Denies arthralgias or myalgias Neurologic Neurologic: Denies dizziness, focal weakness, headache(s), numbness or tingling Vital Signs Vital Signs Vital Signs: 12/30/24 10:24 12/30/24 10:35 12/30/24 10:38 Temperature 98.7 F 98.7 F Temperature Source Oral Oral Pulse Rate 82 88 Respiratory Rate 16 19 H Respiratory Effort Blood Pressure 124/60 H 124/60 H Blood Pressure Mean 81 81 Pulse Ox 62 91 92 Oxygen Delivery Method Room Air Nasal Cannula Nasal Cannula Oxygen Flow Rate (L/min) 7 7 12/30/24 11:01 12/30/24 11:23 12/30/24 11:35 Temperature 98.7 F Temperature Source Oral Pulse Rate 84 Respiratory Rate 19 H Respiratory Effort Short of Breath Blood Pressure 144/82 H Blood Pressure Mean 102 Pulse Ox 97 Oxygen Delivery Method Nasal Cannula Nasal Cannula Oxygen Flow Rate (L/min) 7 7 12/30/24 12:00 12/30/24 13:00 12/30/24 14:00 Temperature 98.7 F 98.7 F 98.7 F Temperature Source Oral Oral Oral Pulse Rate 88 89 85 Respiratory Rate 14 17 18 Respiratory Effort Blood Pressure 137/82 H 146/86 H 122/68 H Blood Pressure Mean 100 106 86 Pulse Ox 94 96 93 Oxygen Delivery Method Nasal Cannula Nasal Cannula Nasal Cannula Oxygen Flow Rate (L/min) 5 5 5 12/30/24 15:00 Temperature Temperature Source Pulse Rate 86 Respiratory Rate 15 Respiratory Effort Blood Pressure 142/84 H Blood Pressure Mean 103 Pulse Ox 93 Oxygen Delivery Method Nasal Cannula Oxygen Flow Rate (L/min) 5 Weight Weight: 157.986 kg Body Mass Index (BMI) 56.2 Physical Exam Const alert, oriented x3 and no apparent distress Constitutional Narrative: Elderly female, class III obesity, mildly fatigued appearing, otherwise laying back comfortably in bed, conversing normally, in no acute distress. General Appearance: cooperative and comfortable HEENT normocephalic, head/scalp atraumatic, hearing grossly normal bilaterally, nasal mucous membranes and turbinates normal and moist oral mucous membranes Eyes PERRL, EOMs intact bilaterally and conjunctivae normal Neck full ROM Chest inspection of chest normal Resp normal respiratory effort and no use of accessory muscles Resp Narrative: Breathing comfortably on 5 L nasal cannula at rest. Diminished breath sounds throughout due to body habitus, no significant wheezing or crackles noted. Cardio regular rate, regular rhythm, no murmurs and peripheral pulses 2+ throughout GI normal to inspection, nondistended, normoactive bowel sounds, soft to palpation, non-tender and non-distended Back/Spine normal ROM Extremity full ROM Extremity Narrative: +2-3 lower extremity pitting edema noted up to the knees. Skin no rashes or lesions noted Psych mental status grossly normal Results Lab / Micro Data 12/30/24 10:55 12/30/24 10:55 Labs: Laboratory Results - last 24 hr 12/30/24 10:55: WBC 9.0, RBC 4.74, Hgb 11.3 L, Hct 39.8, MCV 84.0, MCH 23.8 L, MCHC 28.4 L, RDW Std Deviation 50.3 H, RDW Coeff of Laila 16.8 H, Plt Count 244, MPV 9.5, Immature Gran % (Auto) 1.100 H, Neut % (Auto) 78.9 H, Lymph % (Auto) 10.3 L, [place] % (Auto) 6.7, Eos % (Auto) 2.3, Baso % (Auto) 0.7, Absolute Neuts (auto) 7.1, Absolute Lymphs (auto) 0.93, Nucleated RBC % 1.1, D-Dimer Quant (PE/DVT) Cancelled, Sodium 144, Potassium 4.4, Chloride 106, Carbon Dioxide 31.2, Anion Gap 7, BUN 20 H, Creatinine 0.53 L, Estim Creat Clear Calc 100.57, Est GFR (MDRD) Non-Af 99, BUN/Creatinine Ratio 37.2 H, Glucose 129 H, Calcium 9.1, Troponin T High Sens 59 H*, NT pro BNP II 1627 H 12/30/24 11:20: D-Dimer Quant (PE/DVT) 1.10 H* 12/30/24 13:57: Troponin T Hi Sens 2 Hr 55 H* Imaging Radiology Impression Chest X-Ray 12/30/24 10:41 IMPRESSION: Cardiomegaly and CHF. Reading Location: [id number] Chest CTA 12/30/24 12:33 IMPRESSION: No evidence of pulmonary embolism. Bilateral pleural effusions right greater than left with bibasilar atelectasis and/or infiltrates worse on the right side. Small pericardial effusion. Coronary artery calcification. Reading Location: [facility] Assessment & Plan Assessment/Plan (1) CHF (congestive heart failure): (2) Hypoxemia: PLAN: Plan Patient is a 69-year-old female who presented to [facility] ED on 12/30/2024 with shortness of breath and lower extremity swelling. 1. New onset CHF exacerbation with acute hypoxia ? Admit under inpatient status to PCU. Not on home oxygen, was hypoxic to the 60s on room air and requiring 5 L to maintain appropriate oxygen saturations. Reports history of requiring home oxygen many years ago after an episode of pneumonia. CTA chest with no PE but did show bilateral pleural effusions and cardiomegaly versus small pericardial effusion. BNP 1627. Troponin trend as below. EKG with normal sinus rhythm, no ST changes. No prior echocardiograms in our system. Echo ordered. Will treat with IV Lasix 40 mg twice daily for now, monitor daily BMP and urine output. 2. Elevated troponins ? Troponin trend 59 > 55 > 62. No recent episodes of chest pain and no EKG changes noted. Seems most consistent with demand ischemia secondary to CHF exacerbation above. Echo ordered as above. Lipid panel ordered. Will hold off on further ischemic cardiac workup for now. 3. Acute on chronic debility, history of chronic back pain with neuropathy and prior lumbar spine surgery ? PT/OT/case management consulted. Lives at home alone. Previously required an approximate 10-month stay at SNF after a lumbar spine procedure per patient. She then had 24-hour care until July but has now only had intermittent care it appears since then; has been trying to set up full-time care with [facility] since July but they have not accepted her. Appreciate therapy recommendations. Chronic medical conditions: ? Class III obesity with IRIS and BiPAP nonadherence: BMI 56 on admit. Complicates hospital course and care. Patient has been nonadherent to her home BiPAP for the last 1 to 2 years she states due to difficulty with physically putting it on herself at night. Will order BiPAP for her to use while inpatient. ? Hypertension/hyperlipidemia: Hypertensive to the 150s systolic on admit. Will decrease to amlodipine 5 mg daily and losartan 50 mg daily, and start Coreg 6.25 mg twice daily. Lipid panel ordered as above. Continue home statin. ? GERD with history of PUD: Continue home PPI twice daily. ? Overactive bladder: Continue home medication. ? Chronic normocytic anemia: Hemoglobin 11.3 on admit, stable at baseline. DVT prophylaxis: Lovenox twice daily CODE STATUS: DNR CCA, okay to intubate Expected disposition: TBD Total clinical time spent by myself addressing the patient's medical issues, reviewing all the data, and collaborating with patient's care team: 79 minutes. Charges/Coding Visit Charges Inpatient E&M: 98440 Init Hosp L3
[2024-12-30 15:29] LABS: Troponin T High Sens 4 HR 62 ng/L (<=14)
--- NOTE | 2024-12-30 15:33 | ECHOCS_ITS ---
Reason For Study Reason For Study: CHF Procedure This was a 2D Doppler, Color Flow transthoracic echocardiogram. The study was technically difficult. Contrast injection was performed. Exam performed portable in patient room. Left Ventricle Normal LV size. Moderate concentric left ventricular hypertrophy. Left ventricular systolic function is normal. The left ventricular ejection fraction is 65 %. No regional wall motion abnormalities noted. Right Ventricle Normal RV size. Normal systolic function. Atria Normal left atrium. Normal right atrium. Mitral Valve Normal mitral valve. Tricuspid Valve Normal tricuspid valve. Pulmonic Valve Normal pulmonic valve. Great Vessels Normal aortic root. The pulmonary artery is normal size. Normal inferior vena cava. Pericardium/Pleural No pericardial effusion. Medication Diluted definity 4ml given slow IV push to enhance endocardial definition. MMode/2D Measurements & Calculations LVIDd: 4.6 cm IVSd: 1.6 cm Ao root diam: 3.8 cm LVIDs: 2.9 cm LVPWd: 1.5 cm RVDd: 5.0 cm FS: 36.6 % LAV(MOD-bp): 77.5 ml LVAd ap4: 29.1 cm2 SV(MOD-sp4): 54.5 ml LAV(MOD-bp) Indexed: 30.9 ml/m2 LVLd ap4: 8.0 cm SI(MOD-sp4): 21.7 ml/m2 LAV(MOD-sp2): 82.4 ml EDV(MOD-sp4): 85.3 ml LAV(MOD-sp4): 73.9 ml EDV(sp4-el): 90.6 ml LVAs ap4: 16.5 cm2 LVLs ap4: 7.6 cm ESV(MOD-sp4): 30.8 ml ESV(sp4-el): 30.4 ml EF(MOD-sp4): 63.9 % EF(sp4-el): 66.4 % SV(sp4-el): 60.2 ml LA A4 area: 25.7 cm2 LA dimension(2D): 3.9 cm RA A4 area: 29.0 cm2 TAPSE: 1.7 cm Time Measurements MV dec time: 0.24 sec Doppler Measurements & Calculations MV E max isaiah: 81.6 cm/sec Lat Peak E' Isaiah: 9.6 cm/sec Med Peak E' Isaiah: 7.2 cm/sec MV A max isaiah: 89.7 cm/sec E/E' lat: 8.5 E/E' med: 11.4 MV E/A: 0.91 MV V2 max: 85.4 cm/sec MV P1/2t max isaiah: 82.0 cm/sec Ao V2 max: 204.9 cm/sec MV max P.9 mmHg MV P1/2t: 69.8 msec Ao max P.8 mmHg MV V2 mean: 55.5 cm/sec Ao V2 mean: 135.2 cm/sec MV mean P.4 mmHg MV dec slope: 343.8 cm/sec2 Ao mean P.4 mmHg MV V2 VTI: 18.9 cm MVA(P1/2t): 3.2 cm2 Ao V2 VTI: 36.7 cm AV (velocity ratio): 0.74 LV V1 max: 139.8 cm/sec LV V1 max P.8 mmHg LV V1 mean P.5 mmHg LV V1 mean: 83.9 cm/sec LV V1 VTI: 27.3 cm ECHO/Echo Complete W/ Contrast Interpretation Summary Normal LV size. Moderate concentric left ventricular hypertrophy. Left ventricular systolic function is normal. The left ventricular ejection fraction is 65 %. No regional wall motion abnormalities noted. Contrast injection was performed. Ordering Physician: Brock Rebolledo Performed By: Juni Rob RCS
[2024-12-31] VITALS (9 sets, daily range): BP systolic 105–137; BP diastolic 54–73; PULSE 66–91; RESP 14–28; TEMP 35.9–36.6; O2SAT 89–96; BMI 53.8
[2024-12-31 07:52] LABS: Hematocrit 41.4 % (37-47); Hemoglobin 12.0 g/dL (12.0-15.0); Mean Corp Hgb Conc 29.0 g/dL (32-36); Mean Corpuscular Volume 83.0 fL (81-99); Mean Platelet Vol. 9.2 fl (6.2-12.0); Platelet Count 233 K/mm3 (150-450); RBC Distribution Width CV 16.8 % (11.6-14.6); RBC Distribution Width SD 49.2 fl (35.1-43.9); Red Blood Count 4.99 M/mm3 (4.2-5.4); White Blood Count 8.2 K/mm3 (4.4-11.0)
[2024-12-31 08:52] LABS: Anion Gap 9 (5-15); BUN 17 mg/dL (4-19); BUN/Creat Ratio 27.3 RATIO (10-20); Calcium,Total 8.7 mg/dL (7.6-11.0); Carbon Dioxide 34.0 mmol/L (21.0-32.0); Chloride 98 mmol/L (98-108); Cholesterol 115 mg/dL (<=200); Estimated Creatinine Clearance 97.89 ml/min (50-250); Glucose 97 mg/dL (70-99); Low Density Lipoprotein Calc. 60 mg/dL; Potassium 4.1 mmol/L (3.3-5.1); Triglycerides 96 mg/dL; Very Low Density Lipoprotein 19 mg/dL (5-40); cholesterol:hdl ratio screen 3.12
[2024-12-31] MEDS: 0.9% Saline Lock 10 ML Syringe IV ×2 (10:09→15:17)
--- NOTE | 2024-12-31 10:25 | CASEMGMT ---
MELODY PAUL Face to Face with patient for initial transition planning/care coordination assessment. RN BEVERLY introduced self and role at [facility]. Patient lying in bed, alert and oriented, VISION REHABILITATION THERAPIST at bedside. Patient willing to participate in assessment and is able to answer all questions appropriately. Care providers, pharmacy, and demographics verified. Strata: 2 PCP: Lalitha Specialists: none Preferred Pharmacy: [place] Insurance: [facility], [employer] Prescription Benefit: yes Living Will/HPOA: yes, niece Amy Michaels LNOK: Niece Living Arrangements: Patient lives alone in a single story home with ramp to enter. Patient has private aides that assist wit ADLs. Transportation: [place] DME/HHC: Patient has shower chair, BSC, raised toilet, hospital bed, grab bars, walker, regular and power wheelchair, bipap, own concentrator, and slide board. Patient has been to TCU and [facility] in the past. Patient has had [facility] in the past. Patient wishes to discharge home with HHC, list provided, patient prefers [facility]. Patient states she has no further needs or concerns at this time. CM to follow for discharge planning needs that may arise. Disposition Plan: Patient to discharge home with HHC, family support, and follow-up plans in place. Tabby VERDE, RN, CM
--- NOTE | 2024-12-31 10:53 | CASEMGMT ---
Discharge Planning A list of HH providers including quality and resource use data and consistent with the patient's preferred geographic region, medical needs, and insurance network was created in [employer] Guide.? This list was provided to the RN BEVERLY. Sheela Andres, Discharge Planning Asst.
--- NOTE | 2024-12-31 11:50 | CASEMGMT ---
Addendum entered by Sheela Andres 12/31/24 12:14: [facility] has accepted. Sheela Andres DC Planning Asst. Original Note: Discharge Planning referral sent via [facility]Port to [facility]. Sheela Andres DC Planning Asst.
--- NOTE | 2024-12-31 14:43 | PN.HOSP_ITS ---
Subjective Subjective Breathing better with diuresis Objective Data Objective Data Vital Signs: Vital Signs Temp Pulse Resp BP Pulse Ox O2 Del Method O2 Flow Rate 97.7 F L 91 18 137/63 H 96 Nasal Cannula 10 12/31/24 09:00 12/31/24 09:00 12/31/24 09:00 12/31/24 09:00 12/31/24 09:00 12/31/24 10:00 12/31/24 10:00 Oxygen Flow Rate (L/min) 10 Oxygen Delivery Method Nasal Cannula Weight: 333 lb 12.478 oz Body Mass Index (BMI) 53.8 Intake & Output: Intake and Output for Last 24 Hours 12/30/24 12/31/24 01/01/25 03:59 03:59 03:59 Intake Total 640 / 640 Output Total 2750 / 2750 500 / 500 Balance -2110 / -2110 -500 / -500 Lab / Micro Data 12/31/24 07:35 12/31/24 07:35 Labs: Laboratory Results - last 24 hr 12/30/24 14:50: Troponin T Hi Sens 4Hr 62 H* 12/31/24 07:35: WBC 8.2, RBC 4.99, Hgb 12.0, Hct 41.4, MCV 83.0, MCH 24.0 L, M CHC 29.0 L, RDW Std Deviation 49.2 H, RDW Coeff of Laila 16.8 H, Plt Count 233, MPV 9.2, Sodium 141, Potassium 4.1, Chloride 98, Carbon Dioxide 34.0 H, Anion Gap 9, BUN 17, Creatinine 0.62 L, Estim Creat Clear Calc 97.89, Est GFR (MDRD) Non-Af 95, BUN/Creatinine Ratio 27.3 H, Glucose 97, Calcium 8.7, Triglycerides 96, Cholesterol 115, LDL Cholesterol, Calc 60, VLDL Cholesterol 19, HDL Cholesterol 37 L, Cholesterol/HDL Ratio 3.12 Radiography Diagnostic Testing: Radiology Impression Echocardiogram 12/30/24 15:33 Interpretation Summary Normal LV size. Moderate concentric left ventricular hypertrophy. Left ventricular systolic function is normal. The left ventricular ejection fraction is 65 %. No regional wall motion abnormalities noted. Contrast injection was performed. Ordering Physician: Brock Rebolledo Performed By: Juni Rob RCS Physical Exam Narrative General: Alert, Oriented x3, Cooperative, No apparent distress, morbidly obese HEENT: Atraumatic, PERRLA, EOMI, Normocephalic Oral: Moist Mucosa Neck: Supple, No JVD Lungs: Diminished, Normal air movement, No rhonchi, No wheeze, No rales Cardiovascular: Regular rate, Regular Rhythm, Normal S1, Normal S2, No murmurs Abdomen: Soft, Non Tender, Non-Distended, No Hepato-splenomegaly Extremities: Edema, Capillary Refill Less than 3 Seconds Skin: No rashes, No breakdown Musculoskeletal: No Tenderness to Palpation of Joints or Extremities Neurological: No focal neurological deficits, moves all extremities Psych/Mental Status: Normal Affect, Appropriate Assessment & Plan Assessment/Plan (1) CHF (congestive heart failure): (2) Hypoxemia: PLAN: Plan 1. Acute hypoxic respiratory insufficiency secondary to new onset diastolic CHF exacerbation with elevated troponins of no significance/essential HTN/HLD ? Continue with diuresis will increase her to 40 mg IV 3 times daily ? CT of the chest was negative for PE but did demonstrate bilateral pleural effusions ? Echocardiogram today with EF of 65% and moderate concentric left ventricular hypertrophy ? Continue with her home blood pressure medications and will add Coreg 6.25 mg p.o. twice daily ? Her Norvasc was decreased from 10 mg to 5 mg daily ? PT/OT 2. GERD ? Stable ? Continue with PPI 3. Anxiety/depression/chronic pain ? Stable ? Continue with her home medications DVT: Lovenox Charges/Coding Visit Charges Inpatient E&M: 74026 Subs Hosp L2
[2025-01-01] VITALS (9 sets, daily range): BP systolic 94–125; BP diastolic 54–75; PULSE 59–86; RESP 12–18; TEMP 36.8–37.1; O2SAT 91–98; BMI 52.7; BMI 51.6
[2025-01-01 08:13] LABS: Anion Gap 7 (5-15); BUN 18 mg/dL (4-19); BUN/Creat Ratio 25.3 RATIO (10-20); Calcium,Total 8.6 mg/dL (7.6-11.0); Carbon Dioxide 41.1 mmol/L (21.0-32.0); Chloride 96 mmol/L (98-108); Estimated Creatinine Clearance 96.55 ml/min (50-250); Glucose 96 mg/dL (70-99); Potassium 3.9 mmol/L (3.3-5.1)
--- NOTE | 2025-01-01 10:53 | NS ---
Provided CHF diet education today to patient and morning aid. Discussed importance of sodium-restricted and 1500mL/day FR restriction as ordered. Both seem receptive to diet instruction but, ? pt compliance as she keeps mentioning usual food items that are high in sodium despite discussion. Pt thinks that it is enough to not salt. Did discuss further the absolute need to discontinue use of prepared foods, convenience foods, fast food, canned food/soup. Provided printed information from the [facility] on CHF Nutrition Therapy and 1500mL/day fluid restriction. Encouraged to call RD as needed. Alley Ashby, MS, RD, LD
[2025-01-01] MEDS: 0.9% Saline Lock 10 ML Syringe IV ×2 (14:01→20:04)
--- NOTE | 2025-01-01 19:52 | PN.HOSP_ITS ---
Reason for Visit Chief Complaint: Shortness of breath and lower extremity swelling Subjective Subjective Patient was seen and examined today, she is currently on 3 L of oxygen at rest. Patient states she does not ambulate at home due to the fact she has arthritis in her knees. Patient is also quite heavy with a BMI of 52. Examination of her lower legs shows persistent pitting edema, she is having a good output however from IV Lasix. Echocardiogram today showed a normal EF at 65%, there did not appear to be any significant valvular heart disease. Objective Data Objective Data Vital Signs: Vital Signs Temp Pulse Resp BP Pulse Ox O2 Del Method O2 Flow Rate 98.6 F 78 18 94/54 L 93 High Flow 3 01/01/25 18:06 01/01/25 18:06 01/01/25 18:06 01/01/25 18:06 01/01/25 18:06 01/01/25 18:06 01/01/25 18:06 FiO2 3 01/01/25 18:00 Oxygen Flow Rate (L/min) 3 Oxygen Delivery Method High Flow Weight: 148.1 kg Body Mass Index (BMI) 52.7 Intake & Output: Intake and Output for Last 24 Hours 12/30/24 12/31/24 01/01/25 23:59 23:59 23:59 Intake Total 240 / 640 400 / 950 1430 / 1430 Output Total 900 / 2750 4750 / 5600 3650 / 3650 Balance -660 / -2110 -4350 / -4650 -2220 / -2220 Lab / Micro Data 12/31/24 07:35 01/02/25 06:15 Labs: Laboratory Results - last 24 hr 01/01/25 05:37: Sodium Cancelled, Potassium Cancelled, Chloride Cancelled, Carbon Dioxide Cancelled, Anion Gap Cancelled, BUN Cancelled, Creatinine Cancelled, Estim Creat Clear Calc Cancelled, Est GFR (MDRD) Non-Af Cancelled, BUN/Creatinine Ratio Cancelled, Glucose Cancelled, Calcium Cancelled 01/01/25 07:15: Sodium 144, Potassium 3.9, Chloride 96 L, Carbon Dioxide 41.1 H, Anion Gap 7, BUN 18, Creatinine 0.71, Estim Creat Clear Calc 96.55, Est GFR (MDRD) Non-Af 91, BUN/Creatinine Ratio 25.3 H, Glucose 96, Calcium 8.6 Micro: Microbiology 12/30/24 11:20 Blood Culture (Wb) - Left Hand Blood Culture - Preliminary No growth in 48 hours. 12/30/24 10:55 Blood Culture (Wb) - Left Hand Blood Culture - Preliminary No growth in 48 hours. Physical Exam Const alert, oriented x3 and no apparent distress Constitutional Narrative: Patient has class III obesity General Appearance: cooperative, well kempt and well developed Orientation / Consciousness: awake, oriented to person, oriented to place and oriented to time HEENT normocephalic, head/scalp atraumatic and moist oral mucous membranes Eyes PERRL, EOMs intact bilaterally and conjunctivae normal Neck supple, no JVD, thyroid normal and no carotid bruits General: trachea midline Resp normal respiratory effort, no retractions, no use of accessory muscles and clear to auscultation bilaterally Auscultation: Negative for rales, rhonchi or wheezes Cardio regular rate, regular rhythm, S1 normal heart sound, S2 normal heart sound, no murmurs, no rub and no gallops GI normal to inspection, nondistended, normoactive bowel sounds, soft to palpation, non-tender and non-distended Extremity Extremity Narrative: Patient has a +2 mm pitting edema over the lower legs bilaterally Skin no rashes or lesions noted General Skin Exam: no breakdown Neuro oriented x3, CN's II-XII intact bilaterally, moves all extremities, no focal motor deficits and no sensory deficits noted Sensorium / Orientation: awake and alert Speech: speech normal Psych affect normal Assessment & Plan Assessment/Plan (1) Respiratory failure: PLAN: Plan 1. Acute hypoxia secondary to new onset diastolic congestive heart failure- continue IV diuresis at this time, monitor I's and O's, monitor pulse ox #2 new onset diastolic congestive heart failure-continue IV diuresis #3 chronic anxiety and depression-continue Cymbalta and Vistaril #4 essential hypertension-continue home medications, monitor blood pressure #5 class III obesity complicates care, management, recovery, and prognosis Total clinical time spent by myself addressing patient's medical issues, reviewing all of her data, and collaborating with patient's care team: 35 minutes Charges/Coding Visit Charges Inpatient E&M: 43008 Subs Hosp L2
[2025-01-02] VITALS (8 sets, daily range): BP systolic 111–141; BP diastolic 55–66; PULSE 70–97; RESP 16–20; TEMP 36.7–36.9; O2SAT 92–95
[2025-01-02] MEDS: 0.9% Saline Lock 10 ML Syringe IV ×2 (06:50→14:35)
[2025-01-02 07:01] LABS: Anion Gap 8 (5-15); BUN 20 mg/dL (4-19); BUN/Creat Ratio 26.5 RATIO (10-20); Calcium,Total 8.9 mg/dL (7.6-11.0); Carbon Dioxide 42.0 mmol/L (21.0-32.0); Chloride 91 mmol/L (98-108); Estimated Creatinine Clearance 95.33 ml/min (50-250); Glucose 94 mg/dL (70-99); Potassium 4.0 mmol/L (3.3-5.1)
--- NOTE | 2025-01-02 08:39 | RAD_ITS ---
PROCEDURE: CHEST 1 VIEW (PORTABLE) 01/02/2025 REASON FOR EXAM: CHF TECHNIQUE: Frontal view of the chest. COMPARISON: December 30, 2024 FINDINGS: There is cardiomegaly without overt CHF. There is blunting of the costophrenic angle on the left consistent with a small effusion. Aortic calcifications are noted. Hardware is present in the lower thoracic region. There is chronic impacted deformity of the right and left humeral head. RAD/Chest 1 View (Portable) IMPRESSION: There is cardiomegaly without overt CHF. There is blunting of the costophrenic angle on the left consistent with a small effusion. Reading Location: [facility]
--- NOTE | 2025-01-02 12:21 | NURSING ---
Home oxygen testing ordered this AM however patient does not ambulate. At rest on room air, patient was 85%. Applied 2L NC, and patient came up to 88%, increased oxygen to 3LNC and patient fluctuated between 89-91% on 3L at rest. MD notified of testing results.
--- NOTE | 2025-01-02 14:31 | DCINST_ITS ---
Discharge Instructions DC O2, CPAP, BIPAP needs Home O2 Discharge instructions: Yes Type of respiratory needs?: Oxygen Oxygen frequency: Continuous Continuous oxygen liters per minute: 3 L Dressing / Incision Discharge Activity: Return to Normal Activity Weight Bearing Status: Weight bearing as tolerated Follow Up Care Test Results: Test results from this visit will be discussed in further detail at your follow- up appointment, if applicable. Discharge Plan Admission Admit Date/Time: 12/30/24 15:24 Primary Reason for Your Visit: Acute hypoxic respiratory failure, new onset diastolic CHF Attending Provider: Nayan Cannon Primary Care Provider: Alissa Doty Consulting Providers: Brock Rebolledo; Eric Gar Discharge Orders/Prescriptions Prescriptions: New carvedilol 12.5 mg Tablet 12.5 mg PO BIDCM Qty: 60 0RF amlodipine 5 mg Tablet 5 mg PO DAILY Qty: 30 0RF furosemide [Lasix] 40 mg tablet 40 mg PO BID Qty: 60 0RF Continued duloxetine [Cymbalta] 60 mg capsule,delayed release(DR/EC) 60 mg PO DAILY Patient Comments: 60MG AM AND 30MG HS Rx Instructions: am atorvastatin 10 MG tablet 10 mg PO DAILY@2200 hydroxyzine pamoate 25 mg Capsule 25 mg PO QHS 30 Days Qty: 30 0RF duloxetine 30 mg capsule,delayed release(DR/EC) 30 mg PO QHS Patient Comments: 60MG AM AND 30MG HS tizanidine 4 mg tablet 4 mg PO TID gabapentin 800 mg tablet 800 mg PO TID solifenacin 5 mg tablet 5 mg PO DAILY guaifenesin [Mucinex] 600 mg tablet extended release 12hr 600 mg PO BID PRN (Reason: congestion) losartan 50 mg Tablet 50 mg PO BID acetaminophen 500 mg Tablet 1,000 mg PO Q8 PRN (Reason: severe pain) Rx Instructions: 3 times daily for 1 week and then 3 times daily as needed for severe pain BIPAP -Bilevel Positive Airway Pressure ([facility] INFORMATIONAL USE ONLY) Patient Comments: pt reports 01/20 DME unknown pantoprazole 40 mg Tablet,Delayed Release (Dr/Ec) 40 mg PO BID Qty: 0 0RF Discontinued amlodipine 10 mg tablet 10 mg PO DAILY Referrals / Follow Up: Alissa Doty MD [Primary Care Provider, Internal Medicine] - Within 2 Weeks Disposition Disposition (needs filled in before D/C Order can be placed): Home, Self Care
--- NOTE | 2025-01-02 14:40 | DS.PCM_ITS ---
Providers Date of Admission: 12/30/24 Date of Discharge: 01/02/25 Primary Care Physician: Dr. Alissa Doty MD Reason For Visit: CHF EXACERBATION W/HYPOXIA Diagnosis Discharge Diagnosis (1) CHF (congestive heart failure): Status: Acute Code(s): I50.9 - Heart failure, unspecified (2) Hypoxemia: Status: Acute Code(s): R09.02 - Hypoxemia Plan 1. Acute hypoxia secondary to new onset diastolic congestive heart failure- continue IV diuresis at this time, monitor I's and O's, monitor pulse ox #2 new onset diastolic congestive heart failure-continue IV diuresis #3 chronic anxiety and depression-continue Cymbalta and Vistaril #4 essential hypertension-continue home medications, monitor blood pressure #5 class III obesity complicates care, management, recovery, and prognosis Medications at Discharge Home Medications atorvastatin 10 mg tablet 10 mg PO DAILY@2200 Cholesterol 12/08/20 hydroxyzine pamoate 25 mg capsule 25 mg PO QHS anxiety 30 days #30 caps 01/11/21 pantoprazole 40 mg tablet,delayed release 40 mg PO BID reflux #0 tabs 07/17/23 duloxetine 60 mg capsule,delayed release (Cymbalta) 60 mg PO DAILY mental health 08/25/23 BIPAP -Bilevel Positive Airway Pressure ([facility] INFORMATIONAL USE ONLY) IRIS, hypoventilation 12/30/24 acetaminophen 500 mg tablet 1,000 mg PO Q8 PRN severe pain 12/30/24 duloxetine 30 mg capsule,delayed release 30 mg PO QHS mood 12/30/24 gabapentin 800 mg tablet 800 mg PO TID nerve pain 12/30/24 guaifenesin 600 mg tablet, extended release 12 hr (Mucinex) 600 mg PO BID PRN congestion 12/30/24 losartan 50 mg tablet 50 mg PO BID blood pressure 12/30/24 solifenacin 5 mg tablet 5 mg PO DAILY urine 12/30/24 tizanidine 4 mg tablet 4 mg PO TID muscle relaxer 12/30/24 amlodipine 5 mg tablet 5 mg PO DAILY #30 tabs 01/02/25 carvedilol 12.5 mg tablet 12.5 mg PO BIDCM #60 tabs 01/02/25 furosemide 40 mg tablet (Lasix) 40 mg PO BID #60 tabs 01/02/25 Hospital Course Procedures 2-D Echocardiogram Summary of Care Provided Minutes Spent on Discharge: 31 Hospital Course: 69-year-old white female was seen in the emergency room at [facility] with complaints of shortness of breath and lower extremity swelling. Patient was nonambulatory at home and used a wheelchair for ambulation. Patient's pulse ox was noted to be low at home at 60%, patient was placed on 5 L of oxygen on arrival to the emergency room, workup included CT of the chest which showed no PE but did show bilateral pleural effusions right greater than left with bibasilar atelectasis and a small pericardial effusion. Beta natruretic peptide was elevated at 1627, troponin was obtained and was 59 for repeat troponin 2 hours later was 55 EKG showed normal sinus rhythm with no ST changes. Patient was given IV Lasix in the emergency room and admitted to PCU and IV diuresis continued. Patient was seen by PT and OT. Echocardiogram was obtained which showed the patient to have a normal EF of 65%. On 01/02/2025, patient was seen and examined:alert, oriented x3 and no apparent distress Constitutional Narrative: Patient has class III obesity General Appearance: cooperative, well kempt and well developed Orientation / Consciousness: awake, oriented to person, oriented to place and oriented to time HEENT normocephalic, head/scalp atraumatic and moist oral mucous membranes Eyes PERRL, EOMs intact bilaterally and conjunctivae normal Neck supple, no JVD, thyroid normal and no carotid bruits General: trachea midline Resp normal respiratory effort, no retractions, no use of accessory muscles and clear to auscultation bilaterally Auscultation: Negative for rales, rhonchi or wheezes Cardio regular rate, regular rhythm, S1 normal heart sound, S2 normal heart sound, no murmurs, no rub and no gallops GI normal to inspection, nondistended, normoactive bowel sounds, soft to palpation, non-tender and non-distended Extremity Extremity Narrative: Patient has a +2 mm pitting edema over the lower legs bilaterally Skin no rashes or lesions noted General Skin Exam: no breakdown Neuro oriented x3, CN's II-XII intact bilaterally, moves all extremities, no focal motor deficits and no sensory deficits noted Sensorium / Orientation: awake and alert Speech: speech normal Psych affect normal Patient was felt to be stable for discharge home on 01/02/2025 in stable condition, she did require home oxygen at the time of discharge. Weight / BMI Weight Weight: 145.1 kg Body Mass Index (BMI) 51.6 ABG / Lab / Microbiology Data 12/31/24 07:35 01/02/25 06:15 Laboratory: Laboratory Results - last 24 hr 01/02/25 06:15: Sodium 141, Potassium 4.0, Chloride 91 L, Carbon Dioxide 42.0 H, Anion Gap 8, BUN 20 H, Creatinine 0.76, Estim Creat Clear Calc 95.33, Est GFR (MDRD) Non-Af 83, BUN/Creatinine Ratio 26.5 H, Glucose 94, Calcium 8.9 Microbiology: Microbiology 12/30/24 11:20 Blood Culture (Wb) - Left Hand Blood Culture - Final No growth in 5 days. 12/30/24 10:55 Blood Culture (Wb) - Left Hand Blood Culture - Final No growth in 5 days. Radiography Diagnostic Testing: Radiology Impression Chest X-Ray 01/02/25 08:39 IMPRESSION: There is cardiomegaly without overt CHF. There is blunting of the costophrenic angle on the left consistent with a small effusion. Reading Location: [place] Instructions Weight Bearing Status: Weight bearing as tolerated DC O2, CPAP, BIPAP Needs Home O2 Discharge instructions: Yes Type of respiratory needs?: Oxygen Oxygen frequency: Continuous Continuous oxygen liters per minute: 3 L DC home with Oxygen: Yes Home O2 MD Review: I have reviewed the oxygen testing, and the patient qualifies for home oxygen equipment and portability. The patient is mobile in the home and the community. Meaningful Use Info Meaningful Use Meaningful Use Diagnoses (Choose all that apply): CHF CHF RONNIE/ARB ordered at discharge?: Yes Documented LVEF (%): 65 Discharge Plan Admission Admit Date/Time: 12/30/24 15:24 Primary Reason for Your Visit: Acute hypoxic respiratory failure, new onset diastolic CHF Attending Provider: Nayan Cannon Primary Care Provider: Alissa Doty Consulting Providers: Brock Rebolledo; Eric Gar Discharge Orders/Prescriptions Prescriptions: New carvedilol 12.5 mg Tablet 12.5 mg PO BIDCM Qty: 60 0RF amlodipine 5 mg Tablet 5 mg PO DAILY Qty: 30 0RF furosemide [Lasix] 40 mg tablet 40 mg PO BID Qty: 60 0RF Continued duloxetine [Cymbalta] 60 mg capsule,delayed release(DR/EC) 60 mg PO DAILY Patient Comments: 60MG AM AND 30MG HS Rx Instructions: am atorvastatin 10 MG tablet 10 mg PO DAILY@2200 hydroxyzine pamoate 25 mg Capsule 25 mg PO QHS 30 Days Qty: 30 0RF duloxetine 30 mg capsule,delayed release(DR/EC) 30 mg PO QHS Patient Comments: 60MG AM AND 30MG HS tizanidine 4 mg tablet 4 mg PO TID gabapentin 800 mg tablet 800 mg PO TID solifenacin 5 mg tablet 5 mg PO DAILY guaifenesin [Mucinex] 600 mg tablet extended release 12hr 600 mg PO BID PRN (Reason: congestion) losartan 50 mg Tablet 50 mg PO BID acetaminophen 500 mg Tablet 1,000 mg PO Q8 PRN (Reason: severe pain) Rx Instructions: 3 times daily for 1 week and then 3 times daily as needed for severe pain BIPAP -Bilevel Positive Airway Pressure ([facility] INFORMATIONAL USE ONLY) Patient Comments: pt reports 01/20 DME unknown pantoprazole 40 mg Tablet,Delayed Release (Dr/Ec) 40 mg PO BID Qty: 0 0RF Discontinued amlodipine 10 mg tablet 10 mg PO DAILY Referrals / Follow Up: Alissa Doty MD [Primary Care Provider, Internal Medicine] - Within 2 Weeks Disposition Disposition (needs filled in before D/C Order can be placed): Home Health Service Charges/Coding Visit Charges Inpatient E&M: 67937 Disch Hosp >30min
--- NOTE | 2025-01-02 15:15 | PHA.DC_ITS ---
Pharmacy [facility] has performed discharge medication counseling for this patient. The patient was counseled on the following discharge medications and changes in medications for homegoing review. - Amlodipine 5 mg tablet, Carvedilol 12.5 mg tablet, Furosemide 40 mg tablet The Reason for Use, instructions for use, and potential side effects were reviewed for all new medications. The patient's questions regarding all of their medications were answered. The patient was able to verbally demonstrate an understanding of their discharge medications. Medications at Discharge Home Medications atorvastatin 10 mg tablet 10 mg PO DAILY@2200 Cholesterol 12/08/20 hydroxyzine pamoate 25 mg capsule 25 mg PO QHS anxiety 30 days #30 caps 01/11/21 pantoprazole 40 mg tablet,delayed release 40 mg PO BID #0 tabs 07/17/23 duloxetine 60 mg capsule,delayed release (Cymbalta) 60 mg PO DAILY 08/25/23 BIPAP -Bilevel Positive Airway Pressure ([facility] INFORMATIONAL USE ONLY) IRIS, hypoventilation 12/30/24 acetaminophen 500 mg tablet 1,000 mg PO Q8 PRN severe pain 12/30/24 duloxetine 30 mg capsule,delayed release 30 mg PO QHS mood 12/30/24 gabapentin 800 mg tablet 800 mg PO TID 12/30/24 guaifenesin 600 mg tablet, extended release 12 hr (Mucinex) 600 mg PO BID PRN congestion 12/30/24 losartan 50 mg tablet 50 mg PO BID 12/30/24 solifenacin 5 mg tablet 5 mg PO DAILY 12/30/24 tizanidine 4 mg tablet 4 mg PO TID 12/30/24 amlodipine 5 mg tablet 5 mg PO DAILY #30 tabs 01/02/25 carvedilol 12.5 mg tablet 12.5 mg PO BIDCM #60 tabs 01/02/25 furosemide 40 mg tablet (Lasix) 40 mg PO BID #60 tabs 01/02/25
--- NOTE | 2025-01-02 15:21 | PCM.HOSP.N ---
Hospitalist Note Oxygen testing reviewed, patient is ambulatory in the home and community and requires home oxygen with portability- patient's oxygen setting as 3 L via nasal cannula continuous
--- NOTE | 2025-01-02 15:50 | CASEMGMT ---
Patient has order for discharge. Patient is requiring oxygen at discharge, script received and referral sent to [facility], patient's preferred provided. MELODY PAUL called [facility] to arrange delivery of oxygen equipment as patient will need wheelchair van home. Per Aram at [facility], all oxygen equipment will be delivered to patient's room by 5pm today for discharge. MELODY PAUL in to update patient. Patient states her Aide Jian Espino [phone] will be at patient's home from 5:30-7:00PM. MELODY PAUL updated PCU community reinvestment act officer and requested WC transport. MELODY PAUL updated DC planning manager to send DC paperwork to [facility].
--- NOTE | 2025-01-02 16:20 | PCA ---
THIS US [facility], SPOKE TO [employer] TO SCHEDULE TRANSPORT HOME, [facility] GAVE TIME OF BY 7 I CALLED THEM BACK TO CLARIFY THE PATIENT MUST BE HOME BY 7PM D/T HOME HEALTH AIDE BEING THERE AND THEY SAID PER DISPATCH THE PATIENT WILL BE HOME BY 7.
--- NOTE | 2025-01-02 16:20 | CASEMGMT ---
Discharge Planning DC Instructions sent via [facility] to [facility]. Sheela Andres, DC Planning Asst.
--- NOTE | 2025-01-03 10:02 | CASEMGMT ---
Discharge Planning Requested updated order sent via [facility] to [facility]. Sheela Andres DC Planning Asst.
== END 2025-01-02 18:11 | disposition home health service (06) | DRG 291 ==
LOC: ED 15:41 → PCU 15:44
PROVIDERS: Family Medicine; Admitting Provider Hospitalist; Emergency Provider Emergency Medicine; PCP Internal Medicine; Visit Provider Internal Medicine
DX: I11.0 Hypertensive heart disease with heart failure (principal); I50.31 Acute diastolic (congestive) heart failure; I24.89 Other forms of acute ischemic heart disease; Z68.43 Body mass index [BMI] 50.0-59.9, adult; Z66 Do not resuscitate; J44.9 Chronic obstructive pulmonary disease, unspecified; F32.A Depression, unspecified; D64.9 Anemia, unspecified; E78.5 Hyperlipidemia, unspecified; F41.9 Anxiety disorder, unspecified; G47.33 Obstructive sleep apnea (adult) (pediatric); M54.9 Dorsalgia, unspecified; G62.9 Polyneuropathy, unspecified; K21.9 Gastro-esophageal reflux disease without esophagitis; M17.0 Bilateral primary osteoarthritis of knee; R09.02 Hypoxemia; E66.813 Obesity, class 3; R53.81 Other malaise; G89.29 Other chronic pain; N32.81 Overactive bladder; Z87.11 Personal history of peptic ulcer disease; Z79.899 Other long term (current) drug therapy; Z87.891 Personal history of nicotine dependence; Z91.199 Patient's noncompliance with other medical treatment and regimen due to unspecified reason; Z98.890 Other specified postprocedural states
CPT/HCPCS: 36415; 71045; 71275; 80048; 80061; 83880; 84484; 85025; 85027; 85379; 87040; 93005; 93306; 94002; 94003; 94668; 94762; 97162; 97166; 97530; 99285; Q9957; Q9967; A4216; C8929; J1938

== ENCOUNTER 2025-01-04 04:45 | Emergency (ER) | payer MEDICARE, OTHER, SELFPAY ==
[2025-01-04 04:46] VITALS: BP 130/102; PULSE 78; RESP 16; TEMP 36.7; O2SAT 100; O2SAT 96; BMI 48.4
--- NOTE | 2025-01-04 04:46 | CT_ITS ---
PROCEDURE: STROKE BRAIN/HEAD WITHOUT CONT 01/04/2025 REASON FOR EXAM: NEURO DEFICIT, ACUTE, STROKE SUSPECTED TECHNIQUE: Procedure Code: CTBR.ST Modality: CT Procedure: STROKE BRAIN/HEAD WITHOUT CONT Coronal and Sagittal reconstruction series were provided. One or more dose reduction techniques were used (e.g., Automated exposure control, adjustment of the mA and/or kV according to patient size, use of iterative reconstruction technique. RADIATION DOSE SUMMARY: CTDlvol: 44.99 mGy DLP: 836 mGycm COMPARISON: None. FINDINGS: Mild diffuse cortical atrophy, commensurate with the patient's age. Scattered hypodense foci in the periventricular and subcortical white matter suggestive of chronic ischemic white matter disease. Normal size of the ventricles and extra-axial spaces for the patient's age. Normal basal ganglia and thalami. Normal brainstem. Normal cerebellum. There is no demonstrated extra-axial, intraparenchymal, or intraventricular hemorrhage. There are no findings of an acute ischemic infarction. Normal calvarium. There is no demonstrated fracture. Normal soft tissue structures. Normal visualized paranasal sinuses. CT/STROKE Brain/Head without Cont IMPRESSION: No CT evidence for acute brain abnormality. I discussed the findings with Dr. Reddy Monsivais in the emergency department at 5 a.m. EST. Reading Location: [place] [id number]
--- NOTE | 2025-01-04 04:46 | EKG12_ITS ---
Test Reason : DYSRHYTHMIA Blood Pressure : */* mmHG Vent. Rate : 80 BPM Atrial Rate : 80 BPM P-R Int : 176 ms QRS Dur : 76 ms QT Int : 384 ms P-R-T Axes : 70 77 42 degrees QTcB Int : 442 ms Normal sinus rhythm T wave abnormality, consider anterior ischemia Abnormal ECG Confirmed by MARILEE SPIVEY, PETRONA ([id number]), industrial editor MIGUEL GEORGE ([id number]) on 01/06/2025 1:36:56 PM Referred By: Confirmed By: PETRONA HUNT MD
--- NOTE | 2025-01-04 04:47 | CT_ITS ---
PROCEDURE: STROKE CTA HEAD AND NECK W/CON 01/04/2025 REASON FOR EXAM: NEURO DEFICIT, ACUTE, STROKE SUSPECTED TECHNIQUE: Procedure Code: CTCTA.ST.HN Modality: CT Procedure: STROKE CTA HEAD AND NECK W/CON Multiplanar Sagittal and Coronal images were obtained. CONTRAST: Isovue 370 VOLUME: 100 mL One or more dose reduction techniques were used (e.g., Automated exposure control, adjustment of the mA and/or kV according to patient size, use of iterative reconstruction technique). RADIATION DOSE SUMMARY: CTDlvol: 23.16 mGy DLP: 895 mGycm COMPARISON: None. FINDINGS: Occlusive thrombus in the most distal aspect of M2 segment of the left middle cerebral artery. Mild atheromatous plaques of the internal carotid arteries without high-grade stenosis. Normal bilateral petrous carotid arteries. Mild atheromatous plaques of the right cavernous carotid artery with a normal supraclinoid bifurcation. Mild atheromatous plaques of the left cavernous carotid artery with a normal supraclinoid bifurcation. Normal right A1 segments of the anterior cerebral artery. Normal left A1 segments of the anterior cerebral artery. Normal intact anterior communicating artery (ACOM). Normal bilateral A2 segments of the anterior cerebral arteries. Normal right M1 and M2 segments of the middle cerebral arteries, with a normal M1 bifurcation. Normal left M1 segment of the middle cerebral arteries, with a normal M1 bifurcation. Normal right posterior communicating artery (PCOM). Normal left posterior communicating artery (PCOM). Normal bilateral vertebral arteries. Normal basilar artery with a normal basilar bifurcation. The visualized bilateral superior cerebellar (SCA) arteries are normal. Normal bilateral P1, P2 and visualized P3 segments of the posterior cerebral arteries. There is no demonstrated aneurysm of the [place]. RIGHT CAROTID ARTERIES: Normal right common carotid artery (CCA). 20% stenosis of the right common carotid bulb. 20% stenosis of the origin of the right internal carotid (ICA) artery without a hemodynamically significant stenosis. Normal remaining visualized cervical portion of the right internal carotid artery. Normal origin of the right external carotid artery (ECA). LEFT CAROTID ARTERIES: Normal left common carotid artery (CCA). 20% stenosis of the left common carotid bulb. 20% stenosis of the origin of the left internal carotid (ICA) artery without a hemodynamically significant stenosis. Normal visualized cervical portion of the left internal carotid artery. Normal origin of the left external carotid artery (ECA). VERTEBRAL ARTERIES: Normal antegrade flow within the bilateral vertebral artery without a hemodynamically significant stenosis. CT/STROKE CTA Head AND Neck W/Con IMPRESSION: Normal bilateral cervical carotid and vertebral arteries. Thyromegaly. Multiple thyroid nodules. Cystic nodule of the right thyroid lobe measuring 4.8 x 4.5 x 8.7 cm in its lar gest transverse, anteroposterior and craniocaudal dimensions respectively showing retrosternal extension. Mild left lateral wendi ation of the trachea. Enlarged main pulmonary artery, probably pulmonary arterial hypertension. IMPRESSION: Occlusive thrombus in the most distal aspect of M2 segment of the left middle c erebral artery. I discussed the findings with Dr. Reddy Monsivais in the emergency department at 6 a.m. EST. Reading Location: [place] [id number]
[2025-01-04 05:07] VITALS: BP 115/60; PULSE 78; RESP 16; TEMP 36.6; O2SAT 100; BMI 48.4
[2025-01-04 05:15] LABS: Hematocrit 39.9 % (37-47); Hemoglobin 11.8 g/dL (12.0-15.0); Immature Granulocytes Count 0.060 X10^3/uL (0.0-0.0); Mean Corp Hgb Conc 29.6 g/dL (32-36); Mean Corpuscular Volume 80.0 fL (81-99); Mean Platelet Vol. 9.6 fl (6.2-12.0); NRBC Flagged by Analyzer 0 % (0-5); Platelet Count 236 K/mm3 (150-450); RBC Distribution Width CV 15.8 % (11.6-14.6); RBC Distribution Width SD 45.4 fl (35.1-43.9); Red Blood Count 4.99 M/mm3 (4.2-5.4); White Blood Count 9.1 K/mm3 (4.4-11.0)
[2025-01-04 05:16] VITALS: BP 120/60; PULSE 78; RESP 16; TEMP 36.7; O2SAT 100
--- OUTSIDE RECORDS SUMMARY | 2025-01-04 05:21 | XMS RPT_ITS | CCD ---
Author Organization [facility] CliniSymn Care Team Providers Care Histotechnologist Name Role Phone PALOMA, FRANCISCO P Unavailable Unavailable PALOMA, FRANCISCO P Unavailable Unavailable PALOMA, FRANCISCO P Unavailable Unavailable RAMIREZ AGUILAR Unavailable Unavailable CARLOS VELIZ (PA-C) Unavailable Unavailsol Guerrero MD, Luke Winston Unavailable Unavailable Primary Care Provider UnavailNeo Lyn DO Primary Care Provider [phone] Melissa Muhammad MD Primary Care Provider Melissa Muhammad MD Primary Care Provider Neo Gar DO Primary Care Provider Neo Gar DO Primary Care Provider [phone] Neo Gar DO Primary Care Provider Melissa Muhammad MD Primary Care Provider Unavailable Primary Care Provider UnavailNeo Lyn DO Primary Care Provider Melissa Muhammad MD Primary Care Provider Dr. Melissa Muhammad Primary Care Provider MD Esteban Martinez Emergency Provider [phone] Monika Mendoza Admit Provider Dr. Monika Mendoza Attending Provider Dr. Monika Mendoza Other Provider Dr. Monika Mendoza Referring Provider Dr. Lamont Arzate Attending Provider Huey, Dr. Lamont Other Provider Dr. Kwasi Cheatham Attending Provider Dr. Kwasi Cheatham Other Provider Melissa Muhammad MD Primary Care Provider Melissa Muhammad MD Primary Care Provider [place] SEAL DELIVERY VEHICLE TEAM TECHNICIAN.PERSONNEL DIRECTOR, Josephine Unavailable Jose L SEAL DELIVERY VEHICLE TEAM TECHNICIAN.RESIDENTIAL ROOFER HELPER, Cat Unavailable Jose L SEAL DELIVERY VEHICLE TEAM TECHNICIAN.RESIDENTIAL ROOFER HELPER, Cat Unavailable Bakari Castillo Attending Unavailabl e Talampas, Melissa D Primary Care Unavailable Talampas, Melissa D Primary Care Unavailable [place] BAND LOG MILL AND CARRIAGE OPERATOR, Vika Attending Unavailable Talampas, Melissa D Primary Care Unavailable Bakari Lisa Attending Unavailable Talampas, Melissa D Primary Care Unavailable [place] BAND LOG MILL AND CARRIAGE OPERATOR, Vika Attending Unavailable Talampas, Melissa D Primary Care Unavailable White, Monika L Referring Unavailable Geremias Dwyer Attending Unavailable Talampas, Melissa D Primary Care Unavailable [place] BAND LOG MILL AND CARRIAGE OPERATOR, Vika Attending Unavailable Talampas, Melissa D Primary Care Unavailable [place] BAND LOG MILL AND CARRIAGE OPERATOR, Vika Attending Unavailable Indra Thompson Attending Unavailable Talampas, Melissa D Primary Care Unavailable White, Monika L Admitting Unavailable Huey, Lamont Attending Unavailable Talampas, Melissa D Primary Care Unavailable White, Monika L Referring Unavailable White, Monika L Consulting Unavailable Cheatham, Kwasi Consulting Unavailable White, Monika L Referring Unavailable White, Monika L Admitting Unavailable Huey, Lamont Attending Unavailable White, Monika L Consulting Unavailable Talampas, Melissa D Primary Care Unavailable Linden Kwasi Consulting Unavailable Huey, Lamont Consulting Unavailable Linden Kwasi Attending Unavailable Talampas, Melissa D Primary Care Unavailable Talampas, Melissa D Referring Unavailable Stan Ozuna Attending Unavailable Talampas, Melissa D Primary Care Unavailable [place] BAND LOG MILL AND CARRIAGE OPERATOR, Vika Attending Unavailable [place] BAND LOG MILL AND CARRIAGE OPERATOR, Vika Attending Unavailable Talampas, Melissa D Primary Care Unavailable White, Monika L Admitting Unavailable Huey, Lamont Attending Unavailable Talampas, Melissa D Primary Care Unavailable White, Monika L Consulting Unavailable White, Monika L Referring Unavailable Huey, Lamont Consulting Unavailable Talampas, Melissa D Primary Care Unavailable Darrel Karimi Chi Attending Unavailable Trev, Darrel Chi Referring Unavailable Talampas, Melissa D Primary Care Unavailable Trev, Darrel Chi Attending Unavailable Talampas, Melissa D Primary Care Unavailable Addie Nickerson Attending Unavailable Talampas, Mleissa D Primary Care Unavailable Ruy Zimmerman Unavailable Trev, Darrel Chi Referring Unavailable Trev, Darrel Chi Admitting Unavailable Trev, Darrel Chi Attending Unavailable William Panchal Consulting Unavailable Cheatham, Kwasi Attending Unavailable Cheatham, Kwasi Referring Unavailable Talampas, Melissa D Primary Care Unavailable Monika Mendoza Attending Unavailable Talampas, Melissa D Primary Care Unavailable Geremias Dwyer Attending Unavailable Talampas, Melissa D Referring Unavailable Talampas, Melissa D Primary Care Unavailable Stan Ozuna Attending Unavailable Cheatham, Kwasi Attending Unavailable Talampas, Melissa D Referring Unavailable Talampas, Melissa D Primary Care Unavailable Christina BAND LOG MILL AND CARRIAGE OPERATOR, Vika Attending Unavailable Talampas, Melissa D Primary Care Unavailable [place] BAND LOG MILL AND CARRIAGE OPERATOR, Vika Attending Unavailable Talampas, Melissa D Primary Care Unavailable [place] BAND LOG MILL AND CARRIAGE OPERATOR, Vika Attending Unavailable Talampas, Melissa D Primary Care Unavailable Bakari Lisa Attending Unavailable Talampas, Melissa D Primary Care Unavailable Talampas, Melissa D Primary Care Unavailable [place] BAND LOG MILL AND CARRIAGE OPERATOR, Vika Attending Unavailable [place] BAND LOG MILL AND CARRIAGE OPERATOR, Vika Attending Unavailable Talampas, Melissa D Primary Care Unavailable Talampas, Melissa D Primary Care Unavailable Geremias Dwyer Attending Unavailable Talampas, Melissa D Primary Care Unavailable Rk Patel Attending Unavailable Trev, Darrel Chi Referring Unavailable Cheatham, Kwasi Attending Unavailable Talampas, Melissa D Referring Unavailable Talampas, Melissa D Primary Care Unavailable Cheatham, Kwasi Attending Unavailable Cheatham, Kwasi Referring Unavailable Cheatham, Kwasi Consulting Unavailable Talampas, Melissa D Primary Care Unavailable Talampas, Melissa D Primary Care Unavailable Trev, Darrel Chi Referring Unavailable Trev, Darrel Chi Admitting Unavailable Trev, Darrel Chi Consulting Unavailable Rk Patel Attending Unavailable Ruy Zimmerman Consulting Unavailable Ta Kendall Attending Unavailable Cheatham, Kwasi Attending Unavailable Talampas, Melissa D Primary Care Unavailable Talampas, Melissa D Referring Unavailable Rk Patel Attending Unavailable Bakari Castillo Attending Unavailabl e Talampas, Melissa D Primary Care Unavailable Oleghe OLS, Efewongbe Attending Unavailabl e Talampas, Melissa D Primary Care Unavailable Talampas, Melissa D Primary Care Unavailable Oleghe OLS, Efewongbe Attending Unavailabl e Talampas, Melissa D Primary Care Unavailable Oleghe OLS, Efewongbe Attending Unavailabl e Talampas, Melissa D Primary Care Unavailable Oleghe OLS, Efewongbe Attending Unavailabl e Oleghe OLS, Efewongbe Referring Unavailabl e Jose L SEAL DELIVERY VEHICLE TEAM TECHNICIAN.RESIDENTIAL ROOFER HELPER, Cat Unavailable [place] SEAL DELIVERY VEHICLE TEAM TECHNICIAN.PERSONNEL DIRECTOR, Josephine Unavailable [place] SEAL DELIVERY VEHICLE TEAM TECHNICIAN.PERSONNEL DIRECTOR, Josephine Unavailable TALAMPAS, MELISSA D Primary Care Unavailable TALAMPAS, MELISSA D Attending Unavailable HAWTHORNE, JOSEPHINE Referring Unavailable TALAMPAS, MELISSA D Primary Care Unavailable TALAMPAS, MELISSA D Referring Unavailable TALAMPAS, MELISSA D Primary Care Unavailable TALAMPAS, MELISSA D Primary Care Unavailable TALAMPAS, MELISSA D Referring Unavailable HAWTHORNE, JOSEPHINE Attending Unavailable TALAMPAS, MELISSA D Primary Care Unavailable TALAMPAS, MELISSA D Primary Care Unavailable HAWTHORNE, JOSEPHINE Attending Unavailable TALAMPAS, MELISSA D Primary Care Unavailable HAWTHORNE, JOSEPHINE Attending Unavailable TALAMPAS, MELISSA D Primary Care Unavailable HAWTHORNE, JOSEPHINE Referring Unavailable TALAMPAS, MELISSA D Primary Care Unavailable SWANK, HELENA Attending Unavailable Allergies Allergy Classification Reported Allergen(s) Allergy Type Date of Onset Reaction(s) Facility (1 source) Benzalkonium; Translations: [BENZALKONIUM CHLORIDE] Drug Allergy 03-26-2012 AOF [facility] Repository (20 sources) LORazepam; Translations: [LORAZEPAM] Drug Allergy 03-26-2012 Hives [facility] Repository (20 sources) Neomycin; Translations: [NEOMYCIN] Drug Allergy 02-02-2018 Itching [facility] Repository (20 sources) diazePAM; Translations: [DIAZEPAM] Drug Allergy 11-28-2020 Intolerance [facility] (3 sources) HYDROcodone Drug Allergy 05-02-2023 Anaphylaxis [facility] (1 source) HYDROcodone Drug Allergy 09-25-2023 [facility] Repository Medications Current Medications Medication Drug Class(es) Dates Sig (Normalized) Sig (Original) acetaminophen 500 mg oral tablet (20 sources) Start: 06-09-2023 Acetaminophen Active 1000 MG PO EVERY 8 HOURS 0 June 09, 2023 12:00am 3 times daily for 1 week and then 3 times daily as needed for severe pain Start: 01-01-2021 End: 06-09-2023 take 1000 mg by mouth every six hours Acetaminophen Discontinued 1000 MG PO EVERY 6 HOURS June 02, 2023 12:00am June 09, 2023 2:54pm Start: 12-08-2020 End: 01-01-2021 take 500 mg by mouth every twelve hours Acetaminophen Discontinued 500 MG PO Q12H December 08, 2020 4:10pm January 01, 2021 3:26pm Start: 02-12-2018 End: 12-08-2020 take 1000 mg by mouth three times daily Acetaminophen Discontinued 1000 MG PO TID@0600,1200,1800 90 February 12, 2018 1:00am December 08, 2020 4:10pm take 1 tablet by zachery th every twelve hours as needed acetaminophen (TYLENOL) 500 mg tablet Take 500 mg by mouth twice daily as needed for pain. Active Comment on above: Take 500 mg by mouth twice daily as needed for pain. amLODIPine 10 mg oral tablet (20 sources) Dihydropyridine Calcium Channel Gerardo Start: 07-19-19 End: 08-13-19 take 1 tablet by mouth once daily amLODIPine (NORVASC) 10 mg tablet Indications: Essential hypertension Take 1 tablet by mouth once daily. 90 tablet 3 08/12/2024 08/12/2025 Active Start: 02-12-2018 End: 06-02-2023 take 1 tablet by mouth once daily amLODIPine (NORVASC) 5 mg tablet Indications: Essential hypertension Take 1 tablet by mouth once daily. 90 tablet 3 07/20/2021 07/18/2022 Discontinued Comment on above: Take 1 tablet by zachery th once daily. TAKE 1 TABLET BY ZACHERY TH DAILY amoxicillin 875 mg / clavulanate 125 mg oral tablet (4 sources) Penicillin-class Antibacterial Start: 5 End: take 1 tablet by mouth twice daily amoxicillin-clavul anate potassium (AUGMENTIN) 875-125 mg per tablet Take 1 tablet by mouth two times a day for 7 days. 14 tablet 08/21/2024 08/28/2024 Active Start: 05-22-2023 End: 05-29-2023 take 1 tablet by mouth twice daily amoxicillin-clavulanate potassium (AUGMENTIN) 875-125 mg per tablet Take 1 tablet by mouth two times a day for 7 days. 14 tablet 0 05/22/2023 05/29/2023 Active Comment on above: Take 1 tablet by zachery th two times a day for 7 days. atorvastatin 10 mg oral tablet (20 sources) HMG-CoA Reductase Inhibitor Start: 018 End: take 1 tablet by mouth once daily atorvastatin (LIPITOR) 10 mg tablet Indications: Hyperlipidemia, unspecified hyperlipidemia type Take 1 tablet by mouth once daily. 90 tablet 3 04/18/2024 Active Comment on above: Take 1 tablet by zachery th once daily. TAKE 1 TABLET BY ZACHERY TH DAILY benzonatate 100 mg oral capsule (11 sources) Non-narcotic Antitussive Start: take 2 capsules by mouth three times daily as needed benzonatate (TESSALON PERLE) 100 mg capsule Indications: Acute non-recurrent maxillary sinusitis Take 2 capsules by mouth three times a day as needed. 30 capsule 07/24/2024 Active cefuroxime 500 mg oral tablet (1 source) Cephalosporin Antibacterial Start: 025 End: take 1 tablet by mouth twice daily cefUROXime (CEFTIN) 500 mg tablet Take 1 tablet by mouth two times a day for 7 days. 14 tablet 10/02/2024 10/09/2024 Active cholecalciferol 0.05 mg oral tablet (20 sources) Vitamin D Start: 019 End: take 1 tablet by mouth once daily cholecalciferol (VITAMIN D3) 50 mcg (2,000 unit) tablet Indications: Vitamin D deficiency Take 1 tablet by mouth once daily. 90 tablet 3 04/18/2024 04/18/2025 Active Start: 02-12-2018 End: 12-08-2020 take 2 tablets by mouth once daily Cholecalciferol (Vitamin D3) (Vitamin D3) 1,000 UNIT tablet Active 2000 UNIT PO DAILY December 08, 2020 4:10pm Comment on above: Take 2,000 Units by mouth once daily. cloNIDine hydrochloride 0.1 mg oral tablet (20 sources) Central alpha-2 Adrenergic Agonist Start: End: 3 take 1 tablet by mouth twice daily cloNIDine HCl (CATAPRES) 0.1 mg tablet Indications: Essential hypertension Take 1 tablet by mouth twice daily. 180 tablet 3 07/18/2022 Active Start: 12-26-2018 CLONIDINE HCL 0.1 MG TABS 1 tablet twice daily as directed CLONIDINE HCL [id number] Eliezer Cancino RN Start: 02-12-2018 End: 12-08-2020 take 0.1 mg by mouth once daily Clonidine Hcl Discontinued 0.1 MG PO DAILY 60 February 12, 2018 1:00am December 08, 2020 4:10pm Comment on above: Take 1 tablet by zachery th twice daily. TAKE 1 TABLET BY ZACHERY TH TWICE A DAY COMPOUNDED PRESCRIPTION (20 sources) Start: COMPOUNDED PRESCRIPTION Indications: Sleep apnea, unspecified sleep apnea type BIPAP 1 liter bleed in 12/5 cm. RR 14 Replacement machine with heated humidity. CPAP mask and supplies. Use nightly. 1 Each 0 11/10/2014 Active Comment on above: BIPAP 1 liter bleed in 12/5 cm. RR 14 Replacement machine with heated humidity. CPAP mask and supplies. Use nightly. dexamethasone 4 mg oral tablet (1 source) Corticosteroid Start: Dexamethasone Active 2 MG PO TWICE DAILY WITH MEALS 0 June 09, 2023 12:00am Decreased to 2 mg twice daily for 3 days 06/12/2023 and 2 mg once daily for 3 days till 06/15/2023 and then 1 mg daily for 3 days till 06/18/2023 and then stop. diazePAM 5 mg oral tablet (1 source) Benzodiazepine Start: End: diazePAM (VALIUM) 5 mg tablet Indications: Leg weakness, bilateral , Fusion of spine of thoracic region , Spinal stenosis of lumbar region with neurogenic claudication , Spondylosis with myelopathy, thoracic region , Lumbar radiculopathy , Severe low back pain , Acute right-sided back pain with sciatica 1 tab by mouth 1 hour before the MRI, 1 tab by mouth 30 min before the MRI if needed, 1 tab by mouth just before the MRI if needed 3 tablet 0 05/30/2023 06/06/2023 Active Comment on above: 1 tab by mouth 1 scooter r before the MRI, 1 tab by mouth 30 min before the MRI if needed, 1 tab by mouth just before the MRI if needed 24 hr diclofenac sodium 100 mg extended release oral tablet (20 sources) Nonsteroidal Anti-inflammatory Drug Start: End: take 1 tablet by mouth once daily at mealtime as needed for pain diclofenac XR (VOLTAREN-XR) 100 mg Tb24 Indications: Osteoarthritis, unspecified osteoarthritis type, unspecified site TAKE 1 TABLET BY MOUTH DAILY WITH FOOD NEEDED FOR PAIN 30 tablet 2 05/11/2023 Active Start: 02-21-2023 take 1 tablet by zachery th once daily at mealtime as needed for pain diclofenac XR (VOLTAREN-XR) 100 mg Tb24 Indications: Osteoarthritis, unspecified osteoarthritis type, unspecified site TAKE 1 TABLET BY MOUTH DAILY WITH FOOD NEEDED FOR PAIN 30 tablet 2 02/21/2023 Active Start: 09-02-2022 End: 11-25-2022 take 1 tablet by mouth once daily at mealtime as needed for pain diclofenac XR (VOLTAREN-XR) 100 mg Tb24 Indications: Osteoarthritis, unspecified osteoarthritis type, unspecified site TAKE 1 TABLET BY MOUTH DAILY WITH FOOD NEEDED FOR PAIN 30 tablet 2 11/25/2022 Active Start: 05-31-2022 take 1 tablet by zachery th once daily at mealtime as needed for pain diclofenac XR (VOLTAREN-XR) 100 mg Tb24 Indications: Osteoarthritis, unspecified osteoarthritis type, unspecified site TAKE 1 TABLET BY MOUTH DAILY WITH FOOD NEEDED FOR PAIN 30 tablet 2 05/31/2022 Active Start: 04-02-2022 End: 03-02-2022 take 1 tablet by mouth once daily at mealtime as needed for pain diclofenac XR (VOLTAREN-XR) 100 mg Tb24 Indications: Osteoarthritis of multiple joints, unspecified osteoarthritis type TAKE 1 TABLET BY MOUTH DAILY WITH FOOD NEEDED FOR PAIN 30 tablet 2 04/02/2022 03/02/2022 Discontinued Start: 04-02-2022 End: 03-02-2022 take 1 tablet by mouth once daily at mealtime as needed for pain diclofenac XR (VOLTAREN-XR) 100 mg Tb24 Indications: Osteoarthritis, unspecified osteoarthritis type, unspecified site TAKE 1 TABLET BY MOUTH DAILY WITH FOOD NEEDED FOR PAIN 30 tablet 2 04/02/2022 03/02/2022 Discontinued Start: 05-06-2021 End: 03-02-2022 take 1 tablet by mouth once daily at mealtime as needed for pain diclofenac XR (VOLTAREN-XR) 100 mg Tb24 Indications: Osteoarthritis, unspecified osteoarthritis type, unspecified site TAKE 1 TABLET BY MOUTH DAILY WITH FOOD NEEDED FOR PAIN 30 tablet 3 05/06/2021 09/03/2021 Discontinued Start: 12-08-2020 Diclofenac Sod ium (Voltaren Arthritis Pain) 1 % Gel Active 1 EACH TOPICAL EVERY 6 HOURS December 08, 2020 12:00am Start: 12-03-2020 End: 07-18-2022 apply 4 g topically four times daily diclofenac (VOLTAREN) 1 % topical gel Apply 4 g to affected area four times daily. FOR EXTERNAL USE ONLY APPLY TO: right knee Use provided dosing card to measure the ordered dose. 20 g 5 07/18/2022 Active Start: 12-26-2018 DICLOFENAC SOD IUM ER 100 MG [id number] 1 tablet once daily DICLOFENAC SODIUM [id number] Eliezer Cancino RN Comment on above: Apply 4 g to affecte d area four times daily. FOR EXTERNAL USE ONLY APPLY TO: right knee Use provided dosing card to measure the ordered dose. TAKE 1 TABLET BY ZACHERY TH DAILY WITH FOOD NEEDED FOR PAIN Apply 4 g to affecte d area four times daily. FOR EXTERNAL USE ONLY APPLY TO: right knee Use provided dosing card to measure the ordered dose. doxycycline hyclate 100 mg oral tablet (1 source) Tetracycline-class Drug Start: 07-25-19 End: 08-01-19 take 1 tablet by mouth twice daily doxycycline (VIBRA-TABS) 100 mg tablet Indications: Acute non-recurrent maxillary sinusitis Take 1 tablet by mouth two times a day for 7 days. 14 tablet 07/24/2024 07/31/2024 Active DULoxetine 30 mg delayed release oral capsule (20 sources) Serotonin and Norepinephrine Reuptake Inhibitor Start: 09-24-19 take 1 capsule by mouth once daily at bedtime DULoxetine DR (CYMBALTA) 30 mg capsule Indications: S/P lumbar discectomy , S/P laminectomy , Major depressive disorder, recurrent, mild Take 1 capsule by mouth daily at bedtime. daily 90 capsule 1 09/23/2024 Active Start: 04-07-2024 End: 03-22-2025 take 1 capsule by mouth once daily in the morning DULoxetine DR (CYMBALTA) 60 mg capsule Indications: S/P lumbar discectomy , S/P laminectomy , Major depressive disorder, recurrent, mild Take 1 capsule by mouth once daily. Take in the morning. 90 capsule 1 09/23/2024 03/22/2025 Active Start: 04-06-2024 End: 09-20-2024 take 1 capsule by mouth once daily at bedtime DULoxetine (CYMBALTA) 30 mg capsule Indications: S/P lumbar discectomy , S/P laminectomy , Major depressive disorder, recurrent, mild Take 1 capsule by mouth daily at bedtime. daily 90 capsule 1 04/18/2024 09/20/2024 Discontinued fluticasone propionate 0.05 mg/actuat metered dose nasal spray (11 sources) Corticosteroid Start: 07-24-2024 take 1 spray(s) nasal route once daily fluticasone (FLONASE ALLERGY RELIEF) 50 mcg/actuation nasal spray Use 1 spray in each nostril once daily. 11.1 mL 07/24/2024 Active gabapentin 800 mg oral tablet (20 sources) Anti-epileptic Agent Start: 04-18-2024 End: 03-22-2025 take 1 tablet by mouth three times daily gabapentin (NEURONTIN) 800 mg tablet Indications: S/P lumbar discectomy , S/P laminectomy , Paraparesis (HCC) Take 1 tablet by mouth three times a day for 180 days. 270 tablet 1 09/23/2024 03/22/2025 Active Start: 06-09-2023 take 600 mg by mouth three times daily at mealtime Gabapentin Active 600 MG PO 3 TIMES DAILY WITH MEALS 0 June 09, 2023 12:00am Start: 08-19-2020 End: 07-10-2023 take 1 capsule by mouth twice daily gabapentin (NEURONTIN) 300 mg capsule Indications: Cervical myopathy , Primary osteoarthritis of both knees , Degeneration of lumbar intervertebral disc Take 1 capsule by mouth two times a day for 180 days. 60 capsule 5 01/11/2023 Active Start: 02-12-2018 End: 12-08-2020 take 300 mg by mouth three times daily at mealtime Gabapentin Discontinued 300 MG PO 3 TIMES DAILY WITH MEALS 90 February 12, 2018 1:00am December 08, 2020 4:10pm Comment on above: Take 1 capsule by [facility] twice daily for 90 days. TAKE 1 CAPSULE BY [place] [facility] TWICE A DAY Take 1 capsule by [place] [facility] two times a day for 180 days. hydrOXYzine pamoate 25 mg oral capsule (20 sources) Antihistamine Start: 01-12-20 End: 04-19-19 take 1 capsule by mouth once daily at bedtime hydrOXYzine pamoate (VISTARIL) 25 mg capsule Indications: History of insomnia Take 1 capsule by mouth daily at bedtime. daily 90 capsule 3 04/18/2024 Active ketoconazole 20 mg/ml topical cream (9 sources) Azole Antifungal Start: 04-20-19 End: 06-01-19 Ketoconazole Active 1 APPLIC TOPICAL DAILY June 02, 2023 12:00am Start: 07-18-2022 End: 08-29-2022 ketoconazole (NIZORAL) 2 % c ream Apply 1 application to affected area once daily. Apply to rash and surrounding area. On abdomen. May repeat if necessary 30 g 1 07/18/2022 08/29/2022 Active Comment on above: Apply 1 application to affected area once daily. Apply to rash and surrounding area. On abdomen. May repeat if necessary losartan potassium 50 mg oral tablet (20 sources) Angiotensin 2 Receptor Gerardo Start: End: take 1 tablet by mouth twice daily losartan (COZAAR) 50 mg tablet Indications: Essential hypertension Take 1 tablet by mouth two times a day. 180 tablet 3 04/18/2024 04/18/2025 Active Start: 06-29-2023 End: 04-18-2024 losartan (COZAAR) 50 mg tabl et once daily. 06/29/2023 04/18/2024 Discontinued melatonin 5 mg oral tablet (20 sources) Start: 04-18-2024 take 1 tablet by mouth once daily at bedtime melatonin 5 mg tablet Indications: History of insomnia Take 1 tablet by mouth daily at bedtime. 90 tablet 3 04/18/2024 Active meloxicam 15 mg oral tablet (1 source) Nonsteroidal Anti-inflammatory Drug Start: 06-09-2023 take 15 mg by mouth once daily Meloxicam Active 15 MG PO DAILY 0 June 09, 2023 12:00am For about 1 week Miscellaneous Medical Supply (20 sources) Start: 11-23-2022 Miscellaneous Medical Supply Indications: Wheelchair dependent , Postlaminectomy syndrome, not elsewhere classified , Osteoarthritis of multiple joints, unspecified osteoarthritis type , BMI 40.0-44.9, adult (HCC) , Leg weakness, bilateral , Spondylosis with myelopathy, thoracic region Power Wheelchair 1 Each 11/23/2022 Active Start: 11-23-2022 Miscellaneous Medical Supply Indications: Wheelchair dependent , Postlaminectomy syndrome, not elsewhere classified , Osteoarthritis of multiple joints, unspecified osteoarthritis type , BMI 40.0-44.9, adult (HCC) , Leg weakness, bilateral , Spondylosis with myelopathy, thoracic region Power Wheelchair 1 Each 0 11/23/2022 Active Comment on above: Power Wheelchair 12 hr orphenadrine citrate 100 mg extended release oral tablet (7 sources) Muscle Relaxant Start: End: take 100 mg by mouth twice daily Orphenadrine Citrate Active 100 MG PO TWICE A DAY May 02, 2023 8:19am Comment on above: Take 1 tablet by zachery two times a day as needed for muscle spasm or pain. oxyCODONE hydrochloride 5 mg oral tablet (10 sources) Opioid Agonist Start: take 2.5-5 mg by mouth every four hours as needed Oxycodone Active 2.5 - 5 MG PO EVERY 4 HOURS NEEDED 0 June 09, 2023 Start: 05-02-2023 End: 06-02-2023 take 5-10 mg by mouth every six hours Oxycodone Discontinued 5 - 10 MG PO EVERY 6 HOURS 20 May 02, 2023 June 02, 2023 6:33pm Start: 01-01-2021 End: 05-02-2023 Oxycodone Discontinued 10 MG PO 0600,1400,2200 42 7 January 01, 2021 January 11, 2021 5:39pm pantoprazole 40 mg delayed release oral tablet (20 sources) Proton Pump Inhibitor Start: 04-06-2024 End: 04-18-2024 take 1 tablet by mouth twice daily pantoprazole DR (PROTONIX) 40 mg tablet Indications: Gastroesophageal reflux disease, unspecified whether esophagitis present Take 1 tablet by mouth two times a day. 180 tablet 3 04/18/2024 Active polyethylene glycol 3350 39454 mg powder for oral solution (20 sources) Osmotic Laxative Start: 04-18-2024 End: 06-25-2025 polyethylene glycol 3350 (MIRALAX) 17 gram/dose powder Indications: Constipation, unspecified constipation type Take 17 g by mouth once daily. as needed for constipation. Dissolve dose in 4 - 8 ounces of liquid and take as directed. Take in the morning. 510 g 11 06/25/2024 06/25/2025 Active tiZANidine 4 mg oral tablet (20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 strains (3 sources) Acute cervical sprain; Translations: [Sprain of joints and ligaments of unspecified parts of neck, initial encounter] 05-26-2018 Episodic Thyroid disorders (20 sources) Thyroid nodule; Translations: [Nontoxic single thyroid nodule] Onset: 1 11-19-2020 Chronic Unclassified (1 source) Low back pain, unspecified; Translations: [Low back pain, unspecified] Onset: 4 Unclassified (1 source) OPENED IN ERROR 07-15-2024 Unclassified (1 source) Class 3 severe obesity due to excess calories without serious comorbidity with body mass index (BMI) of 45.0 to 49.9 in adult (HCC); Translations: [Class 3 severe obesity due to excess calories without serious comorbidity with body mass index (BMI) of 45.0 to 49.9 in adult (HCC)] Onset: 1 Viral infection (3 sources) Herpes zoster; Translations: [Zoster without complications] 01-11-2021 Episodic Past or Other Problems Problem Classification Problem Date Documented Da te Episodic/Chronic Complication of device; implant or graft (1 source) Displacement of internal fixation device of vertebrae, initial encounter; Translations: [Displacement of internal fixation device of vertebrae, initial encounter] Onset: 07-12-2023 Episodic Deficiency and other anemia (1 source) Iron deficiency anemia, unspecified; Translations: [Iron deficiency anemia, unspecified] Onset: 07-04-2023 Episodic Fracture of upper limb (1 source) Other nondisplaced fracture of upper end of left humerus, initial encounter for closed fracture; Translations: [Other nondisplaced fracture of upper end of left humerus, initial encounter for closed fracture] Onset: 09-25-2023 Episodic Genitourinary symptoms and ill-defined conditions (20 sources) Abnormal urinalysis; Translations: [Unspecified abnormal findings in urine] Onset: 12-01-2020 12-01-2020 Episodic Malaise and fatigue (4 sources) Asthenia; Translations: [Other malaise] Onset: 08-01-2023 01-03-2021 Episodic Other acquired deformities (1 source) Olu legged; Translations: [Varus deformity, not elsewhere classified, right knee] Onset: 01-18-2019 01-18-2019 Episodic Other acquired deformities (1 source) Olu legged; Translations: [Varus deformity, not elsewhere classified, left knee] Onset: 01-18-2019 01-18-2019 Episodic Other aftercare (2 sources) Encounter for other orthopedic aftercare; Translations: [Encounter for other orthopedic aftercare] Onset: 08-01-2023 Episodic Other aftercare (1 source) Other chcf (current) drug therapy; Translations: [Encounter for long-term current use of medication] Onset: 08-12-2024 Episodic Other bone disease and musculoskeletal deformities (1 source) Other specified disorders of bone, upper arm; Translations: [Other specified disorders of bone, upper arm] Onset: 09-04-2023 Episodic Other circulatory disease (1 source) Hemorrhage, not elsewhere classified; Translations: [Hemorrhage, not elsewhere classified] Onset: 07-03-2023 Episodic Other connective tissue disease (1 source) Neuralgia and neuritis, unspecified; Translations: [Neuralgia and neuritis, unspecified] Onset: 08-01-2023 Episodic Other female genital disorders (20 sources) Polyp of cervix; Translations: [Polyp of cervix uteri] Onset: 12-15-2014 Resolved: 11-18-2019 11-18-2019 Episodic Other gastrointestinal disorders (1 source) Ulcer of intestine; Translations: [Ulcer of intestine] Onset: 08-01-2023 Episodic Other gastrointestinal disorders (1 source) Constipation, unspecified; Translations: [Constipation, unspecified constipation type] Onset: 06-25-2024 Episodic Other hematologic conditions (1 source) Other abnormality of red blood cells; Translations: [Microcytosis] Onset: 08-12-2024 Episodic Other nervous system disorders (20 sources) Acute postoperative pain; Translations: [Other acute postprocedural pain] Onset: 11-25-2020 12-01-2020 Episodic Other skin disorders (20 sources) Eruption; Translations: [Rash and other nonspecific skin eruption] Onset: 12-03-2020 12-03-2020 Episodic Other skin disorders (1 source) Ingrowing nail; Translations: [Ingrown right greater toenail] Onset: 08-12-2024 Episodic Other upper respiratory infections (2 sources) Acute maxillary sinusitis; Translations: [Acute maxillary sinusitis, unspecified] Onset: 07-24-2024 07-24-2024 Episodic Residual codes; unclassified (2 sources) Other specified postprocedural states; Translations: [Other postprocedural status] Onset: 08-01-2023 06-09-2023 Episodic Residual codes; unclassified (1 source) Other specified health status; Translations: [Self-care deficit] Onset: 06-25-2024 Episodic Skin and subcutaneous tissue infections (20 sources) Onychia of finger; Translations: [Cellulitis of right finger] Onset: 11-23-2020 12-01-2020 Episodic Spondylosis; intervertebral disc disorders; other back problems (20 sources) Ankylosis of spine; Translations: [Fusion of spine, thoracic region] Onset: 11-25-2020 12-01-2020 Episodic Suicide and intentional self-inflicted injury (1 source) Suicidal ideations; Translations: [Suicidal ideations] Onset: 08-15-2023 Episodic Unclassified (1 source) Problem Unclassified (1 source) History of lumbar discectomy 05-10-2024 Unclassified (1 source) Patient encounter status 07-09-2024 Results Test Name Value Interpretation Reference Range Facility [facility] 12-10-2024 [facility] Telephone (INTMWS) -- SONIA KARIMI ([id number]) 1955 F Date Time Provider Department 12/10/24 JOSEPHINE HAWTHORNE INTWS During your visit today, we recorded the following information about you: Quattrocchi, Nimesh, CLOCK AND WATCH HANDS PAINTER 12/10/2024 3:09 PM Signed PRIOR AUTHORIZATION [place] [facility] request over covermymeds today Medication for Prior Authorization: Solifenacin 5 mg since patient is over 65 years old Other formulary meds available : NO Insurance Company: Medicare D [employer] phone number: [phone] Patient insurance ID number: [id number] CHECO Rodriguez Janice, LPN 12/11/2024 8:08 AM Signed Electronic PA requested to complete. Denia Hassan LPN 12/11/2024 2:59 PM Signed Prior authorization approved Payer: [facility] [phone] Note from payer: JADE Case: [id number], Status: Approved, Coverage Starts on: 02/14/2024 12:00:00 AM, Coverage Ends on: 02/12/2026 12:00:00 AM. Questions? Contact . Approval Details Authorized from February 14, 2024 to February 12, 2026 Electronic appeal: Not supported Prior auth initiated by: Denia Hassan LPN View History Notes Time User Attachment Attachment received from payer. 12/11/2024 2:44 PM Cchs, Rx Priorauth In Document Medication Being Authorized solifenacin (VESICARE) 5 mg tablet Take 1 tablet by mouth once daily. for over active bladder Dispense: 30 tablet Refills: 11 Start: 12/06/2024 Class: Normal This order has been released to its destination. To be filled at: [facility] - [address] [place] [address] - [address] - [phone] Pharmacy notified. Allergies As of Date: 12/10/2024 Noted Allergy Reaction ATIVAN (LORAZEPAM) 03/26/2012 4 - Hives NEOMYCIN 02/02/2018 9 - Itching Comments: Hives, itching VALIUM (DIAZEPAM) 11/28/2020 5 - Intolerance Comments: somnolence Date Reviewed: 12/06/2024 Reviewed by: Merillat, Neo, MA - Fully Assessed Reason for Visit: Insurance Authorization [[id number]] Prescriptions as of 12/11/2024 - diclofenac (VOLTAREN) 1 % topical gel Apply 4 g to affected area four times daily. FOR EXTERNAL USE ONLY APPLY TO: right knee Use provided dosing card to measure the ordered dose. - solifenacin (VESICARE) 5 mg tablet Take 1 tablet by mouth once daily. for over active bladder - furosemide (LASIX) 20 mg tablet Take 1 tablet by mouth once daily. for leg swelling - erythromycin (ROMYCIN) 5 mg/gram (0.5 %) ophthalmic ointment Use 1 application in both eyes daily at bedtime for 7 days. into affected eye(s). - tiZANidine (ZANAFLEX) 4 mg tablet Take 1 tablet by mouth every 8 hours. - DULoxetine DR (CYMBALTA) 30 mg capsule Take 1 capsule by mouth daily at bedtime. daily - DULoxetine DR (CYMBALTA) 60 mg capsule Take 1 capsule by mouth once daily. Take in the morning. - gabapentin (NEURONTIN) 800 mg tablet Take 1 tablet by mouth three times a day for 180 days. - amLODIPine (NORVASC) 10 mg tablet Take 1 tablet by mouth once daily. - atorvastatin (LIPITOR) 10 mg tablet Take 1 tablet by mouth once daily. - hydrOXYzine pamoate (VISTARIL) 25 mg capsule Take 1 capsule by mouth daily at bedtime. daily - losartan (COZAAR) 50 mg tablet Take 1 tablet by mouth two times a day. - pantoprazole DR (PROTONIX) 40 mg tablet Take 1 tablet by mouth two times a day. - Miscellaneous Medical Supply Power Wheelchair - COMPOUNDED PRESCRIPTION BIPAP 1 liter bleed in 12/5 cm. RR 14 Replacement machine with heated humidity. CPAP mask and supplies. Use nightly. Problem List As Of Date 12/10/2024 Noted Resolved Essential hypertension [I10] 12/15/2014 Cervical polyp [N84.1] 12/15/2014 11/18/2019 Hyperlipidemia [E78.5] 12/15/2014 Osteoarthritis of both knees [M17.0] 12/15/2014 IRIS treated with BiPAP [G47.33] 12/15/2014 Class 3 severe obesity due to excess calories w*06/02/2017 Cervical myopathy [G72.9] 01/30/2018 Cervical spondylosis with myelopathy [M47.12] 01/30/2018 History of cervical polypectomy [Z98.890, Z87.4*11/18/2019 Paraparesis (HCC) [G82.20] Thyroid nodule [E04.1] 11/19/2020 Ventricular tachycardia, non-sustained (HCC) [I*11/19/2020 Spondylosis with myelopathy, 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*11/21/2020 Paronychia of right middle finger [L03.011] 11/23/2020 Fusion of spine of 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43.24] 11/25/2020 Acute postoperative pain [G89.18] 11/25/2020 Pseudogout of right knee [M11.261] 11/26/2020 Abnormal urinalysis [R82.90] 12/01/2020 Rash and nonspecific skin eruption on right thi*12/03/2020 Major depressive disorder, recurrent, mild (HCC*09/02/2022 Chronic obstructive pulmonary disease (HCC) [J4*11/09/2022 Encounter Status:Closed by DENIA HASSAN on 12/11/24 [facility] CNOVon 12-06-2024 CNOV Office Visit (INTMWS ) -- SONIA KARIMI ([id number]) 1955 F Date Time Provider Department 12/06/24 10:00 AM JOSEPHINE HAWTHORNE INTMWS During your visit today, we recorded the following information about you: Pulse Respiration Blood pressure 80/minute 14/minute 126/84 Josephine Hawthorne, ROSALEE.PERSONNEL DIRECTOR 12/06/2024 11:15 AM Signed [facility] [place] SUBJECTIVE: Anxiety Screening Never done RSV Vaccine(1 - Risk 60-74 years 1-dose series) Never done Mammogram Screening due on 11/22/2017 Bone Density Screening Never done Medicare Annual Wellness Visit Never done Advance Directive Discussion due on 02/14/2024 Influenza Vaccine(1) due on 10/14/2024 Covid-19 Vaccine( season) due on 10/14/2024 HPI Sonia Karimi is a 69 year old female. 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 ACTIVE PROBLEM LIST Essential Hypertension Hyperlipidemia Osteoarthritis of Both Knees Iris Treated With Bipap Class 3 severe obesity due to excess calories without serious comorbidity with body mass index (BMI) of 45.0 to 49.9 in adult Cervical Myopathy Cervical Spondylosis With Myelopathy History of Cervical Polypectomy Paraparesis (Hcc) Thyroid Nodule Ventricular Tachycardia, Non-Sustained (Hcc) Spondylosis With Myelopathy, Thoracic Region Paronychia of Right Middle Finger Fusion of Spine of Thoracic Region Acute Postoperative Pain Pseudogout of Right Knee Abnormal Urinalysis Rash and nonspecific skin eruption on right thigh Major Depressive Disorder, Recurrent, Mild Chronic Obstructive Pulmonary Disease (Hcc) Presents today for a routine visit. Sonia Karimi is a 69-year-old female with depression, anxiety, allergic rhinitis, and obstructive sleep apnea on CPAP, presenting for evaluation of bilateral lower extremity edema and persistent ocular discharge. Sonia Karimi is a 69-year-old female with a history of depression, anxiety, and IRIS, presenting for evaluation of bilateral pedal edema, eye discharge, and urinary frequency. Bilateral Pedal Edema: - Bilateral pedal edema x1 month. - Noted increased time sitting upright. - No current use of diuretics; last used approximately 10 years ago. - Denies dyspnea, chest pain, or palpitations. - Occasional leg pain at night, described as spasmy feet, relieved by muscle relaxant. Eye Discharge: - Persistent eye discharge described as gunky with pus in the corners and hard things. - Symptoms present all day, requiring frequent wiping. - No associated pain or vision changes. - Previously advised by Dr. Muhammad to use saline solution, which has not been effective. - Has not consulted an psychiatric clinical nurse specialist for this issue. - Reports concurrent sinus congestion with yellow nasal discharge and recent headaches, possibly related to allergies. - History of sinus infection a couple of months ago, with symptoms resolved except for eye discharge. Urinary Frequency: - Increased urinary frequency, urinating every 30 minutes with significant volume. - No urinary incontinence. - Recent history of two UTIs, with suspicion that the first was not fully resolved. - Reports nocturia every two hours. Anxiety: - Well-controlled with Vistaril, but recent increase in anxiety episodes. - Experiences panic when lying flat or during exertion, fearing dyspnea. - Vistaril taken at night, provides relief. - Requests additional Vistaril for PRN use during increased anxiety episodes. Depression: - Well-controlled with current medication regimen. Obstructive Sleep Apnea: - Uses CPAP machine; has not been assessed recently. ROS Head: (+) morning headaches Eyes: (+) ocular discharge, (+) ocular crusting, (-) eye pain, (-) eye watering, (-) eye burning, (-) vision changes Ears/Nose/Mouth/Throat: (+) nasal congestion, (+) yellow nasal discharge Cardiovascular: (-) chest pain, (-) palpitations Respiratory: (-) dyspnea Genitourinary: (+) urinary frequency, (-) urinary incontinence Musculoskeletal: (+) bilateral pedal edema, (+) nocturnal foot muscle spasms Psychiatric: (+) anxiety, (+) panic attacks, (-) depressed mood Objective BP 126/84 Pulse 80 Resp 14 SpO2 96% Physical Exam Vitals and nursing note reviewed. Constitutional: Appearance: Normal appearance. HENT: Head: Normocephalic and atraumatic. Eyes: Conjunctiva/sclera: Conjunctivae normal. Comments: Drainage present corners of both eyes. Neck: Thyroid: No thyroid mass or thyromegaly. Vascular: Normal carotid pulses. Cardiovascular: Rate and Rhythm: Normal rate and regular rhythm. Pulses: Carotid pulses are 2+ on the right side and 2+ on the left side. Radial pulses are 2+ on the right side and 2+ on the left side. Heart sounds: Normal heart sounds. Pulmonary: Effort: Pulmonary effort is normal. Breath sounds: Normal breath sounds. Abdominal: General: Bowel sounds are normal. Palpations: Abdomen is soft. (more content not included)... Normal [facility] Tele[facility] (INTWS) -- SONIA KARIMI ([id number]) 1955 F Date Time Provider Department 10/02/24 MELISSA MUHAMMAD During your visit today, we recorded the following information about you: Eun Linton, RN 10/02/2024 11:45 AM Signed Patient calls and states that she had urine done on 10/01/2024 and is asking about results. Patient was previously on Augmentin x 7 days on 08/21/2024. Latest Ref Rng 09/30/2024 Color Yellow Yellow Clarity Clear Turbid ! Glucose, Urine Negative Negative Bilirubin, Urine Negative Negative Ketones, Urine Negative Negative Specific [place]ley, Ur 1.005 - 1.030 1.015 Hemoglobin/Blood,Ur Negative Negative pH, Urine 5.0 - 8.0 8.5 (H) Protein, Urine Negative 1+ ! Urobilinogen 0.2-1.0 EU/dL 0.2 EU/dL Nitrites Negative Negative Leukest Negative 3+ ! WBC, Urine 0-5 /HPF >20 /HPF ! RBC, Urine 0-2 /HPF 0-2 /HPF Bacteria uL Negative uL >9,821 (H) Epithelial Cells /HPF None Seen Hyaline Cast 0 /LPF 4-10 /LPF ! 09/30/2024 Culture >=100,000 CFU/ml Proteus mirabilis ! Culture 10,000 -<50,000 CFU/ml Normal urogenital yanick Proteus mirabilis (1) Antibiotic Interpretation Method Status Ampicillin Susceptible MINIMUM INHIBITORY CONCENTRATION(VITEK) Final Cefazolin Susceptible MINIMUM INHIBITORY CONCENTRATION(VITEK) Final For uncomplicated urinary tract infections, cefazolin results can be used to predict susceptibility or resistance to cephalexin. Ceftriaxone Susceptible MINIMUM INHIBITORY CONCENTRATION(VITEK) Final Cefepime Susceptible MINIMUM INHIBITORY CONCENTRATION(VITEK) Final Ertapenem Susceptible MINIMUM INHIBITORY CONCENTRATION(VITEK) Final Meropenem Susceptible MINIMUM INHIBITORY CONCENTRATION(VITEK) Final Ampicillin/Sulbact Susceptible MINIMUM INHIBITORY CONCENTRATION(VITEK) Final Piperacillin/Tazobac Susceptible MINIMUM INHIBITORY CONCENTRATION(VITEK) Final Gentamicin Susceptible MINIMUM INHIBITORY CONCENTRATION(VITEK) Final Tobramycin Susceptible MINIMUM INHIBITORY CONCENTRATION(VITEK) Final Trimeth sulfameth Susceptible MINIMUM INHIBITORY CONCENTRATION(VITEK) Final Ciprofloxacin Susceptible MINIMUM INHIBITORY CONCENTRATION(VITEK) Final Nitrofurantoin Resistant MINIMUM INHIBITORY CONCENTRATION(VITEK) Final Talampas, Melissa D, MD 10/02/2024 7:26 PM Signed Noted grew Proteus mirabailis and sensitive to almost all antibiotics. Given current med, and since did not resolve with Augmentin, would try cefuroxime. Since on an acid gerardo, recommend take med after eating to improve absorption The following approved medication requests have been transmitted electronically. Requested Prescriptions Signed Prescriptions Disp Refills cefUROXime (CEFTIN) 500 mg tablet 14 tablet 0 Sig: Take 1 tablet by mouth two times a day for 7 days. Authorizing Provider: MELISSA MUHAMMAD MD Sturdivant, Deborah, LPN 10/03/2024 10:09 AM Signed Patient notified of providers message and verbalized understanding Allergies As of Date: 10/02/2024 Noted Allergy Reaction ATIVAN (LORAZEPAM) 03/26/2012 4 - Hives NEOMYCIN 02/02/2018 9 - Itching Comments: Hives, itching VALIUM (DIAZEPAM) 11/28/2020 5 - Intolerance Comments: somnolence Date Reviewed: 08/12/2024 Reviewed by: Liza Rucker LPN - Fully Assessed Order(s):cefUROXime (CEFTIN) 500 mg tabletTake 1 tablet by mouth two times a day for 7 days.Disp: 14 tabletRfl: 0 Prescriptions as of 10/03/2024 - cefUROXime (CEFTIN) 500 mg tablet Take 1 tablet by mouth two times a day for 7 days. - DULoxetine DR (CYMBALTA) 30 mg capsule Take 1 capsule by mouth daily at bedtime. daily - DULoxetine DR (CYMBALTA) 60 mg capsule Take 1 capsule by mouth once daily. Take in the morning. - gabapentin (NEURONTIN) 800 mg tablet Take 1 tablet by mouth three times a day for 180 days. - amLODIPine (NORVASC) 10 mg tablet Take 1 tablet by mouth once daily. - benzonatate (TESSALON PERLE) 100 mg capsule Take 2 capsules by mouth three times a day as needed. - fluticasone (FLONASE ALLERGY RELIEF) 50 mcg/actuation nasal spray Use 1 spray in each nostril once daily. - polyethylene glycol 3350 (MIRALAX) 17 gram/dose powder Take 17 g by mouth once daily. as needed for constipation. Dissolve dose in 4 - 8 ounces of liquid and take as directed. Take in the morning. - tiZANidine (ZANAFLEX) 4 mg tablet Take 1 tablet by mouth every 8 hours. - atorvastatin (LIPITOR) 10 mg tablet Take 1 tablet by mouth once daily. - hydrOXYzine pamoate (VISTARIL) 25 mg capsule Take 1 capsule by mouth daily at bedtime. daily - losartan (COZAAR) 50 mg tablet Take 1 tablet by mouth two times a day. - pantoprazole DR (PROTONIX) 40 mg tablet Take 1 tablet by mouth two times a day. - cholecalciferol (VITAMIN D3) 50 mcg (2,000 unit) tablet Take 1 tablet by mouth once daily. - melatonin 5 mg tablet Take 1 tablet by mouth daily at bedtime. - d (more content not included)... Normal [facility] Bacteria Ur Culton 5 Bacteria identified Cx Nom (U) ORGANISM ID: 1 >=100,000 CFU/ml Proteus mirabilis ORGANISM ID: 2 10,000 -<50,000 CFU/ml Normal urogenital yanick ORGANISM ID: 1 (PROTEUS MIRABILIS) ANTIBIOTIC INTERPRETATION LUCINA STATUS REFERENCE RANGE Ampicillin S <=2 F Susceptible <=8 , Intermediate >8 , Resistant >16 Cefazolin S <=4 F Susceptible 0-16 , Intermediate <0 or >16 , Resistant >16 For uncomplicated urinary tract infections, cefazolin results can be used to predict susceptibility or resistance to cephalexin. Ceftriaxone S <=1 F Susceptible <=1 , Intermediate >1 , Resistant >=4 Cefepime S <=1 F Susceptible <=2 , Susceptible-Dose Dependent >2 , Resistant >=16 Ertapenem S <=0.5 F Susceptible <=0.5 , Intermediate >.5 , Resistant >1 Meropenem S <=0.25 F Susceptible <=1 , Intermediate >1 , Resistant >2 Ampicillin/Sulbact S <=2 F Susceptible <=8 , Intermediate >8 , Resistant >16 Piperacillin/Tazobac S <=4 F Susceptible <16 , Susceptible-Dose Dependent >=16 , Resistant >=32 Gentamicin S <=1 F Susceptible <=2 , Intermediate >2 , Resistant >=8 Tobramycin S <=1 F Susceptible <4 , Intermediate >=4 , Resistant >=8 Trimeth sulfameth S <=20 F Susceptible <=40 , Resistant >40 Ciprofloxacin S <=0.25 F Susceptible <0.5 , Intermediate >=.5 , Resistant >=1 Nitrofurantoin R 256 F Susceptible <=32 , Intermediate >32 , Resistant >64 Abnormal [facility] Comment on above: Performed By: #### 6 30-4 ####[facility] [id number] [address] [place] Urinalysis complete panel (U )on 09-30-2024 Bacteria uL uL High - 941 uL [facility] Bilirubin Ql (U) Negative Negative [facility] Clarity (Unsp spec) Turbid Abnormal Clear [facility] Color (U) Yellow Yellow [facility] Epithelial cells LM.HPF (Urine sed) [#/Area] None Seen /HPF [facility] Glucose Test strip (U) [Mass/Vol] Negative Negative [facility] Hemoglobin Ql (U) Negative Negative [facility] Hyaline casts (Urine sed) [#/Area] 4-10 /LPF Abnormal 0 /LPF [facility] Interpretation and review of laboratory results Abnormal [facility] Ketones Ql (U) Negative Negative [facility] Leukocyte esterase Test strip Ql (U) 3+ Abnormal Negative [facility] Nitrite Ql (U) Negative Negative [facility] pH (U) 8.5 [pH] High 5.0 - 8.0 [facility] Protein (U) [Mass/Vol] 1+ Abnormal Negative [facility] RBC LM.HPF (Urine sed) [#/Area] 0-2 /HPF 0-2 /HPF [facility] Specific gravity (U) [Rel density] 1.015 1.005 - 1.030 [facility] Urobilinogen Ql (U) 0.2 EU/dL 0.2-1.0 EU/dL [facility] WBC LM.HPF (Urine sed) [#/Area] /[HPF] Abnormal 0-5 /HPF [facility] This test was develo ped and its performance characteristics determined by [facility]'s [facility] [place] ([facility]). It has not been cleared or approved by the FDA. -[facility] is regulated under CLIA as qualified to perform high-complexity testing. This test is used for clinical purposes. It should not be regarded as investigational or for research. [facility] BACTERIA UL >[id number] High Negative [facility] Comment on above: Order Comment: Speci men Type: URINE SPECIMEN Ordering Facility: [facility] Address: [address] [place] [address] Performed By: #### 2 4356-8 #### [facility] CLIA [id number] [address] [place] [address] [place] Bilirubin Ql (U) Negative Normal Negative [facility] Comment on above: Order Comment: Speci men Type: URINE SPECIMEN Ordering Facility: [facility] Address: [address] [place] [address] Performed By: #### 2 4356-8 #### [facility] CLIA [id number] [address] [place] [address] [place] Clarity (Unsp spec) Turbid Abnormal Clear [facility] Comment on above: Order Comment: Speci men Type: URINE SPECIMEN Ordering Facility: [facility] Address: [address] [place] [address] Performed By: #### 2 4356-8 #### [place] [facility] CLIA [id number] [place] Color (U) Yellow Normal Yellow [facility] Comment on above: Order Comment: Speci men Type: URINE SPECIMEN Ordering Facility: [facility] Address: [address] [place] [address] Performed By: #### 2 4356-8 #### [facility] CLIA [id number] [address] [place] [address] [place] Epithelial cells LM.HPF (Urine sed) [#/Area] None Seen Normal [facility] Comment on above: Order Comment: Speci men Type: URINE SPECIMEN Ordering Facility: [facility] Address: [address] [place] [address] Performed By: #### 2 4356-8 #### [facility] CLIA [id number] [address] [place] [address] [place] Glucose Test strip (U) [Mass/Vol] Negative Normal Negative [facility] Comment on above: Order Comment: Speci men Type: URINE SPECIMEN Ordering Facility: [facility] Address: [address] [place] [address] Performed By: #### 2 4356-8 #### [facility] CLIA [id number] [address] [place] [address] [place] Hemoglobin Ql (U) Negative Normal Negative [facility] Comment on above: Order Comment: Speci men Type: URINE SPECIMEN Ordering Facility: [facility] Address: [address] [place] [address] Performed By: #### 2 4356-8 #### [facility] CLIA [id number] [address] [place] [address] [place] Hyaline casts (Urine sed) [#/Area] 4-10 /LPF Abnormal 0 /LPF [facility] Comment on above: Order Comment: Speci men Type: URINE SPECIMEN Ordering Facility: [facility] Address: [address] [place] [address] Performed By: #### 2 4356-8 #### [facility] CLIA [id number] [address] [place] [address] [place] Ketones Ql (U) Negative Normal Negative [facility] Comment on above: Order Comment: Speci men Type: URINE SPECIMEN Ordering Facility: [facility] Address: [address] [place] [address] Performed By: #### 2 4356-8 #### [facility] CLIA [id number] [address] [place] [address] [place] Leukocyte esterase Test strip Ql (U) 3+ Abnormal Negative [facility] Comment on above: Order Comment: Speci men Type: URINE SPECIMEN Ordering Facility: [facility] Address: [address] [place] [address] Performed By: #### 2 4356-8 #### [facility] CLIA [id number] [address] [place] [address] [place] Nitrite Ql (U) Negative Normal Negative [facility] Comment on above: Order Comment: Speci men Type: URINE SPECIMEN Ordering Facility: [facility] Address: [address] [place] [address] Performed By: #### 2 4356-8 #### [facility] CLIA [id number] [address] [place] [address] [place] pH (U) 8.5 [pH] High 5.0-8.0 [facility] Comment on above: Order Comment: Speci men Type: URINE SPECIMEN Ordering Facility: [facility] Address: [address] [place] [address] Performed By: #### 2 4356-8 #### [facility] CLIA [id number] [address] [place] [address] [place] Protein (U) [Mass/Vol] 1+ Abnormal Negative [facility] Comment on above: Order Comment: Speci men Type: URINE SPECIMEN Ordering Facility: [facility] Address: [address] [place] [address] Performed By: #### 2 4356-8 #### [facility] CLIA [id number] [address] [place] [address] [place] RBC LM.HPF (Urine sed) [#/Area] 0-2 /HPF Normal 0-2 /HPF [facility] Comment on above: Order Comment: Speci men Type: URINE SPECIMEN Ordering Facility: [facility] Address: [address] [place] [address] Performed By: #### 2 4356-8 #### [facility] CLIA [id number] [address] [place] [address] [place] Specific gravity (U) [Rel density] 1.015 Normal 1.005-1.030 [facility] Comment on above: Order Comment: Speci men Type: URINE SPECIMEN Ordering Facility: [facility] Address: [address] [place] [address] Performed By: #### 2 4356-8 #### [facility] CLIA [id number] [address] [place] [address] [place] Urobilinogen Ql (U) 0.2 EU/dL Normal 0.2-1.0 EU/dL [facility] Comment on above: Order Comment: Speci men Type: URINE SPECIMEN Ordering Facility: [facility] Address: [address] [place] [address] Performed By: #### 2 4356-8 #### [facility] CLIA [id number] [address] [place] [address] [place] WBC LM.HPF (Urine sed) [#/Area] /[HPF] Abnormal 0-5 /HPF [facility] Comment on above: Order Comment: Speci men Type: URINE SPECIMEN Ordering Facility: [facility] Address: [address] [place] [address] Performed By: #### 2 4356-8 #### [facility] CLIA [id number] [address] [place] [address] [place] [id number] [facility] [place] 09-26-2024 CNPN Telephone (INTMWS) -- SONIA KARIMI ([id number]) 1955 F Date Time Provider Department 09/26/24 MELISSA MUHAMMAD INTMWS During your visit today, we recorded the following information about you: Miguel Masterson RN 09/26/2024 8:38 AM Signed Pt calls in and reports she was on antibiotics for a UTI. Pt is reporting that she finished the antibiotics but she is still having burning, frequency, and chills every time she urinates.Pt states the urine color and smell have cleared up. Pt denies fever. Pt is asking if provider would order another UA and culture for her to come in and get. Please call and advise. She uses [place] [facility] for any medication if UA would come back abnormal. PRESTON Paulino Liza D, MD 09/27/2024 6:53 PM Signed Filed order Denia Hassan LPN 09/28/2024 8:20 AM Signed Pt notified. She says will come on Monday10/01/24 Allergies As of Date: 09/26/2024 Noted Allergy Reaction ATIVAN (LORAZEPAM) 03/26/2012 4 - Hives NEOMYCIN 02/02/2018 9 - Itching Comments: Hives, itching VALIUM (DIAZEPAM) 11/28/2020 5 - Intolerance Comments: somnolence Date Reviewed: 08/12/2024 Reviewed by: Liza Rucker LPN - Fully Assessed Reason for Visit: Patient Update [1234] Orders [681] Primary Visit Diagnosis:Urinary frequency [R35.0] Order(s):URINALYSIS, WITH MICROSCOPIC [SQUAWMIC] Order #: [id number] FUTURE BACTERIAL CULTURE, URINE [SQURCUL] Order #: [id number] FUTURE Prescriptions as of 09/30/2024 - DULoxetine DR (CYMBALTA) 30 mg capsule Take 1 capsule by mouth daily at bedtime. daily - DULoxetine DR (CYMBALTA) 60 mg capsule Take 1 capsule by mouth once daily. Take in the morning. - gabapentin (NEURONTIN) 800 mg tablet Take 1 tablet by mouth three times a day for 180 days. - amLODIPine (NORVASC) 10 mg tablet Take 1 tablet by mouth once daily. - benzonatate (TESSALON PERLE) 100 mg capsule Take 2 capsules by mouth three times a day as needed. - fluticasone (FLONASE ALLERGY RELIEF) 50 mcg/actuation nasal spray Use 1 spray in each nostril once daily. - polyethylene glycol 3350 (MIRALAX) 17 gram/dose powder Take 17 g by mouth once daily. as needed for constipation. Dissolve dose in 4 - 8 ounces of liquid and take as directed. Take in the morning. - tiZANidine (ZANAFLEX) 4 mg tablet Take 1 tablet by mouth every 8 hours. - atorvastatin (LIPITOR) 10 mg tablet Take 1 tablet by mouth once daily. - hydrOXYzine pamoate (VISTARIL) 25 mg capsule Take 1 capsule by mouth daily at bedtime. daily - losartan (COZAAR) 50 mg tablet Take 1 tablet by mouth two times a day. - pantoprazole DR (PROTONIX) 40 mg tablet Take 1 tablet by mouth two times a day. - cholecalciferol (VITAMIN D3) 50 mcg (2,000 unit) tablet Take 1 tablet by mouth once daily. - melatonin 5 mg tablet Take 1 tablet by mouth daily at bedtime. - diclofenac XR (VOLTAREN-XR) 100 mg Tb24 TAKE 1 TABLET BY MOUTH DAILY WITH FOOD NEEDED FOR PAIN - gabapentin (NEURONTIN) 300 mg capsule Take 1 capsule by mouth two times a day for 180 days. - [employer] Power Wheelchair - diclofenac (VOLTAREN) 1 % topical gel Apply 4 g to affected area four times daily. FOR EXTERNAL USE ONLY APPLY TO: right knee Use provided dosing card to measure the ordered dose. - cloNIDine HCl (CATAPRES) 0.1 mg tablet Take 1 tablet by mouth twice daily. - acetaminophen (TYLENOL) 500 mg tablet Take 500 mg by mouth twice daily as needed for pain. - COMPOUNDED PRESCRIPTION BIPAP 1 liter bleed in 12/5 cm. RR 14 Replacement machine with heated humidity. CPAP mask and supplies. Use nightly. Problem List As Of Date 09/26/2024 Noted Resolved Essential hypertension [I10] 12/15/2014 Cervical polyp [N84.1] 12/15/2014 11/18/2019 Hyperlipidemia [E78.5] 12/15/2014 Osteoarthritis of both knees [M17.0] 12/15/2014 IRIS treated with BiPAP [G47.33] 12/15/2014 Class 3 severe obesity due to excess calories w*06/02/2017 Cervical myopathy [G72.9] 01/30/2018 Cervical spondylosis with myelopathy [M47.12] 01/30/2018 History of cervical polypectomy [Z98.890, Z87.4*11/18/2019 Paraparesis (HCC) [G82.20] Thyroid nodule [E04.1] 11/19/2020 Ventricular tachycardia, non-sustained (HCC) [I*11/19/2020 Spondylosis with myelopathy, 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*11/21/2020 Paronychia of right middle finger [L03.011] 11/23/2020 Fusion of spine of 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43.24] 11/25/2020 Acute postoperative pain [G89.18] 11/25/2020 Pseudogout of right knee [M11.261] 11/26/2020 Abnormal urinalysis [R82.90] 12/01/2020 Rash and nonspecific skin eruption on right thi*12/03/2020 Major depressive disorder, recurrent, mild (HCC*09/02/2022 Chronic obstructive pulmonary disease (HCC) [J4*11/09/2022 Encounter Status:Closed by MIGUEL MASTERSON on 09/30/24 [facility] [place] 09-16-2024 [facility] Telephone (INTMWS) -- SONIA KARIMI ([id number]) 1955 F Date Time Provider Department 09/16/24 MELISSA MUHAMMAD INTMWS During your visit today, we recorded the following information about you: Melissa Muhammad MD 09/16/2024 1:10 PM Signed Nurse passed along message that [facility] not able to accept patient Received referral for this patient for [facility]. Unfortunately they are unable to accept at this time due to staffing threshold in that area. See if patient has another preferred provider with her insurance Akua Bucio MA 09/20/2024 7:33 AM Addendum Spoke to patient AND she will check with insurance and let us know. Akua Bucio MA Allergies As of Date: 09/16/2024 Noted Allergy Reaction ATIVAN (LORAZEPAM) 03/26/2012 4 - Hives NEOMYCIN 02/02/2018 9 - Itching Comments: Hives, itching VALIUM (DIAZEPAM) 11/28/2020 5 - Intolerance Comments: somnolence Date Reviewed: 08/12/2024 Reviewed by: Liza Rucker LPN - Fully Assessed Prescriptions as of 09/23/2024 - DULoxetine DR (CYMBALTA) 30 mg capsule Take 1 capsule by mouth daily at bedtime. daily - DULoxetine DR (CYMBALTA) 60 mg capsule Take 1 capsule by mouth once daily. Take in the morning. - gabapentin (NEURONTIN) 800 mg tablet Take 1 tablet by mouth three times a day for 180 days. - amLODIPine (NORVASC) 10 mg tablet Take 1 tablet by mouth once daily. - benzonatate (TESSALON PERLE) 100 mg capsule Take 2 capsules by mouth three times a day as needed. - fluticasone (FLONASE ALLERGY RELIEF) 50 mcg/actuation nasal spray Use 1 spray in each nostril once daily. - polyethylene glycol 3350 (MIRALAX) 17 gram/dose powder Take 17 g by mouth once daily. as needed for constipation. Dissolve dose in 4 - 8 ounces of liquid and take as directed. Take in the morning. - tiZANidine (ZANAFLEX) 4 mg tablet Take 1 tablet by mouth every 8 hours. - atorvastatin (LIPITOR) 10 mg tablet Take 1 tablet by mouth once daily. - hydrOXYzine pamoate (VISTARIL) 25 mg capsule Take 1 capsule by mouth daily at bedtime. daily - losartan (COZAAR) 50 mg tablet Take 1 tablet by mouth two times a day. - pantoprazole DR (PROTONIX) 40 mg tablet Take 1 tablet by mouth two times a day. - cholecalciferol (VITAMIN D3) 50 mcg (2,000 unit) tablet Take 1 tablet by mouth once daily. - melatonin 5 mg tablet Take 1 tablet by mouth daily at bedtime. - diclofenac XR (VOLTAREN-XR) 100 mg Tb24 TAKE 1 TABLET BY MOUTH DAILY WITH FOOD NEEDED FOR PAIN - gabapentin (NEURONTIN) 300 mg capsule Take 1 capsule by mouth two times a day for 180 days. - [employer] Power Wheelchair - diclofenac (VOLTAREN) 1 % topical gel Apply 4 g to affected area four times daily. FOR EXTERNAL USE ONLY APPLY TO: right knee Use provided dosing card to measure the ordered dose. - cloNIDine HCl (CATAPRES) 0.1 mg tablet Take 1 tablet by mouth twice daily. - acetaminophen (TYLENOL) 500 mg tablet Take 500 mg by mouth twice daily as needed for pain. - COMPOUNDED PRESCRIPTION BIPAP 1 liter bleed in 12/5 cm. RR 14 Replacement machine with heated humidity. CPAP mask and supplies. Use nightly. Problem List As Of Date 09/16/2024 Noted Resolved Essential hypertension [I10] 12/15/2014 Cervical polyp [N84.1] 12/15/2014 11/18/2019 Hyperlipidemia [E78.5] 12/15/2014 Osteoarthritis of both knees [M17.0] 12/15/2014 IRIS treated with BiPAP [G47.33] 12/15/2014 Class 3 severe obesity due to excess calories w*06/02/2017 Cervical myopathy [G72.9] 01/30/2018 Cervical spondylosis with myelopathy [M47.12] 01/30/2018 History of cervical polypectomy [Z98.890, Z87.4*11/18/2019 Paraparesis (HCC) [G82.20] Thyroid nodule [E04.1] 11/19/2020 Ventricular tachycardia, non-sustained (HCC) [I*11/19/2020 Spondylosis with myelopathy, 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*11/21/2020 Paronychia of right middle finger [L03.011] 11/23/2020 Fusion of spine of 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43.24] 11/25/2020 Acute postoperative pain [G89.18] 11/25/2020 Pseudogout of right knee [M11.261] 11/26/2020 Abnormal urinalysis [R82.90] 12/01/2020 Rash and nonspecific skin eruption on right thi*12/03/2020 Major depressive disorder, recurrent, mild (HCC*09/02/2022 Chronic obstructive pulmonary disease (HCC) [J4*11/09/2022 Encounter Status:Closed by HAJA CLARKE on 09/23/24 [facility] [place] 09-13-2024 CNPN Telephone (INTMWS) -- SONIA KARIMI ([id number]) 1955 F Date Time Provider Department 09/13/24 MELISSA MUHAMMAD INTWS During your visit today, we recorded the following information about you: Mariah Ball RN 09/13/2024 11:39 AM Signed Faxed [facility] order, demographic face sheet, and recent ov notes to [facility] per patient request. [facility] # [phone] Allergies As of Date: 09/13/2024 Noted Allergy Reaction ATIVAN (LORAZEPAM) 03/26/2012 4 - Hives NEOMYCIN 02/02/2018 9 - Itching Comments: Hives, itching VALIUM (DIAZEPAM) 11/28/2020 5 - Intolerance Comments: somnolence Date Reviewed: 08/12/2024 Reviewed by: Liza Rucker LPN - Fully Assessed Reason for Visit: Faxed to [facility] [Other] Prescriptions as of 09/13/2024 - amLODIPine (NORVASC) 10 mg tablet Take 1 tablet by mouth once daily. - benzonatate (TESSALON PERLE) 100 mg capsule Take 2 capsules by mouth three times a day as needed. - fluticasone (FLONASE ALLERGY RELIEF) 50 mcg/actuation nasal spray Use 1 spray in each nostril once daily. - polyethylene glycol 3350 (MIRALAX) 17 gram/dose powder Take 17 g by mouth once daily. as needed for constipation. Dissolve dose in 4 - 8 ounces of liquid and take as directed. Take in the morning. - tiZANidine (ZANAFLEX) 4 mg tablet Take 1 tablet by mouth every 8 hours. - atorvastatin (LIPITOR) 10 mg tablet Take 1 tablet by mouth once daily. - DULoxetine (CYMBALTA) 30 mg capsule Take 1 capsule by mouth daily at bedtime. daily - DULoxetine (CYMBALTA) 60 mg capsule Take 1 capsule by mouth once daily. Take in the morning. - gabapentin (NEURONTIN) 800 mg tablet Take 1 tablet by mouth three times a day for 180 days. - hydrOXYzine pamoate (VISTARIL) 25 mg capsule Take 1 capsule by mouth daily at bedtime. daily - losartan (COZAAR) 50 mg tablet Take 1 tablet by mouth two times a day. - pantoprazole DR (PROTONIX) 40 mg tablet Take 1 tablet by mouth two times a day. - cholecalciferol (VITAMIN D3) 50 mcg (2,000 unit) tablet Take 1 tablet by mouth once daily. - melatonin 5 mg tablet Take 1 tablet by mouth daily at bedtime. - diclofenac XR (VOLTAREN-XR) 100 mg Tb24 TAKE 1 TABLET BY MOUTH DAILY WITH FOOD NEEDED FOR PAIN - gabapentin (NEURONTIN) 300 mg capsule Take 1 capsule by mouth two times a day for 180 days. - [employer] Power Wheelchair - diclofenac (VOLTAREN) 1 % topical gel Apply 4 g to affected area four times daily. FOR EXTERNAL USE ONLY APPLY TO: right knee Use provided dosing card to measure the ordered dose. - cloNIDine HCl (CATAPRES) 0.1 mg tablet Take 1 tablet by mouth twice daily. - acetaminophen (TYLENOL) 500 mg tablet Take 500 mg by mouth twice daily as needed for pain. - COMPOUNDED PRESCRIPTION BIPAP 1 liter bleed in 12/5 cm. RR 14 Replacement machine with heated humidity. CPAP mask and supplies. Use nightly. Problem List As Of Date 09/13/2024 Noted Resolved Essential hypertension [I10] 12/15/2014 Cervical polyp [N84.1] 12/15/2014 11/18/2019 Hyperlipidemia [E78.5] 12/15/2014 Osteoarthritis of both knees [M17.0] 12/15/2014 IRIS treated with BiPAP [G47.33] 12/15/2014 Class 3 severe obesity due to excess calories w*06/02/2017 Cervical myopathy [G72.9] 01/30/2018 Cervical spondylosis with myelopathy [M47.12] 01/30/2018 History of cervical polypectomy [Z98.890, Z87.4*11/18/2019 Paraparesis (HCC) [G82.20] Thyroid nodule [E04.1] 11/19/2020 Ventricular tachycardia, non-sustained (HCC) [I*11/19/2020 Spondylosis with myelopathy, 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*11/21/2020 Paronychia of right middle finger [L03.011] 11/23/2020 Fusion of spine of 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43.24] 11/25/2020 Acute postoperative pain [G89.18] 11/25/2020 Pseudogout of right knee [M11.261] 11/26/2020 Abnormal urinalysis [R82.90] 12/01/2020 Rash and nonspecific skin eruption on right thi*12/03/2020 Major depressive disorder, recurrent, mild (HCC*09/02/2022 Chronic obstructive pulmonary disease (HCC) [J4*11/09/2022 Encounter Status:Closed by Mariah BALL on 09/13/24 Normal [facility] BACTERIAL CULTURE, URINEOrde red By: Barbara Louie on 08-21-2024 Bacteria identified Cx Nom (U) Mixed microbiota, including predominantly: [facility] Bacteria identified Cx Nom (U) >=100,000 CFU/ml Proteus mirabilis Abnormal [facility] Bacteria identified Cx Nom ( U)Ordered By: Barbara Louie on 08-21-2024 Interpretation and review of laboratory results Abnormal [facility] This test was develo ped and its performance characteristics determined by the [facility] [place] ([facility]). It has not been cleared or approved by the FDA. [facility] is regulated under CLIA as qualified to perform high-complexity testing. This test is used for clinical purposes. It should not be regarded as investigational or for research. [facility] [place] 08-20-2024 CNPN Telephone (INTMWS) -- SONIA KARIMI ([id number]) 1955 F Date Time Provider Department 08/20/24 MELISSA MUHAMMAD INTMWS During your visit today, we recorded the following information about you: Eun Linton RN 08/20/2024 12:10 PM Signed Patient calling and asking if provider can advise on urinalysis results. Please review and advise, PRESTON Alston Beth, LPN 08/21/2024 10:10 AM Signed Patient calling back asking if she could get antibiotic rx sent to [facility] pharmacy. She can see the results of the urine on her my chart. She is having a lot of symptoms. Please advise Contains abnormal data BACTERIAL CULTURE, URINE Order: [id number] Status: Final result Dx: Urinary frequency Test Result Released: Yes (not seen) Specimen Information: Urine, Midstream 0 Result Notes Culture Mixed microbiota, including predominantly: >=100,000 CFU/ml Proteus mirabilis Abnormal This test was developed and its performance characteristics determined by the [facility] [place] ([facility]). It has not been cleared or approved by the FDA. [facility] is regulated under CLIA as qualified to perform high-complexity testing. This test is used for clinical purposes. It should not be regarded as investigational or for research. Resulting Agency: [facility] Susceptibility Proteus mirabilis (1) Antibiotic Interpretation Method Status Ampicillin Susceptible MINIMUM INHIBITORY CONCENTRATION(VITEK) Final Cefazolin Susceptible MINIMUM INHIBITORY CONCENTRATION(VITEK) Final For uncomplicated urinary tract infections, cefazolin results can be used to predict susceptibility or resistance to cephalexin. Ceftriaxone Susceptible MINIMUM INHIBITORY CONCENTRATION(VITEK) Final Cefepime Susceptible MINIMUM INHIBITORY CONCENTRATION(VITEK) Final Ertapenem Susceptible MINIMUM INHIBITORY CONCENTRATION(VITEK) Final Meropenem Susceptible MINIMUM INHIBITORY CONCENTRATION(VITEK) Final Ampicillin/Sulbact Susceptible MINIMUM INHIBITORY CONCENTRATION(VITEK) Final Piperacillin/Tazobac Susceptible MINIMUM INHIBITORY CONCENTRATION(VITEK) Final Gentamicin Susceptible MINIMUM INHIBITORY CONCENTRATION(VITEK) Final Tobramycin Susceptible MINIMUM INHIBITORY CONCENTRATION(VITEK) Final Trimeth sulfameth Susceptible MINIMUM INHIBITORY CONCENTRATION(VITEK) Final Ciprofloxacin Susceptible MINIMUM INHIBITORY CONCENTRATION(VITEK) Final Nitrofurantoin Resistant MINIMUM INHIBITORY CONCENTRATION(VITEK) Final Specimen Collected: 08/19/24 10:00 AM EDT Last Resulted: 08/21/24 6:39 AM EDT Priority Sent On From To Message Type 08/19/2024 6:16 PM Lab, Background User Melissa Muhammad MD Results Melissa Muhammad MD 08/21/2024 10:37 AM Signed The following approved medication requests have been transmitted electronically. Requested Prescriptions Signed Prescriptions Disp Refills amoxicillin-clavulanate potassium (AUGMENTIN) 875-125 mg per tablet 14 tablet 0 Sig: Take 1 tablet by mouth two times a day for 7 days. Authorizing Provider: MELISSA MUHAMMAD MD Holiday, [place], [place] 08/21/2024 11:14 AM Signed Pt informed Akua Bucio MA Allergies As of Date: 08/20/2024 Noted Allergy Reaction ATIVAN (LORAZEPAM) 03/26/2012 4 - Hives NEOMYCIN 02/02/2018 9 - Itching Comments: Hives, itching VALIUM (DIAZEPAM) 11/28/2020 5 - Intolerance Comments: somnolence Date Reviewed: 08/12/2024 Reviewed by: Liza Rucker LPN - Fully Assessed Reason for Visit: Results [95] Order(s):amoxicillin-clavu lanate potassium (AUGMENTIN) 875-125 mg per tabletTake 1 tablet by mouth two times a day for 7 days.Disp: 14 tabletRfl: 0 Prescriptions as of 08/21/2024 - amoxicillin-clavulanate potassium (AUGMENTIN) 875-125 mg per tablet Take 1 tablet by mouth two times a day for 7 days. - amLODIPine (NORVASC) 10 mg tablet Take 1 tablet by mouth once daily. - benzonatate (TESSALON PERLE) 100 mg capsule Take 2 capsules by mouth three times a day as needed. - fluticasone (FLONASE ALLERGY RELIEF) 50 mcg/actuation nasal spray Use 1 spray in each nostril once daily. - polyethylene glycol 3350 (MIRALAX) 17 gram/dose powder Take 17 g by mouth once daily. as needed for constipation. Dissolve dose in 4 - 8 ounces of liquid and take as directed. Take in the morning. - tiZANidine (ZANAFLEX) 4 mg tablet Take 1 tablet by mouth every 8 hours. - atorvastatin (LIPITOR) 10 mg tablet Take 1 tablet by mouth once daily. - DULoxetine (CYMBALTA) 30 mg capsule Take 1 capsule by mouth daily at bedtime. daily - DULoxetine (CYMBALTA) 60 mg capsule Take 1 capsule by mouth once daily. Take in the morning. - gabapentin (NEURONTIN) 800 mg tablet Take 1 tablet by mouth three times a day for 180 days. - hydrOXYzine pamoate (VISTARIL) 25 mg capsule Take 1 capsule by mouth daily at bedtime. daily - lo (more content not included)... Normal [facility] Bacteria Ur Culton 5 Bacteria identified Cx Nom (U) CULTURE, URINE: Mixed microbiota, including predominantly: ORGANISM ID: 1 >=100,000 CFU/ml Proteus mirabilis ORGANISM ID: 1 (PROTEUS MIRABILIS) ANTIBIOTIC INTERPRETATION LUCINA STATUS REFERENCE RANGE Ampicillin S <=2 F Susceptible <=8 , Intermediate >8 , Resistant >16 Cefazolin S <=4 F Susceptible 0-16 , Intermediate <0 or >16 , Resistant >16 For uncomplicated urinary tract infections, cefazolin results can be used to predict susceptibility or resistance to cephalexin. Ceftriaxone S <=1 F Susceptible <=1 , Intermediate >1 , Resistant >=4 Cefepime S <=1 F Susceptible <=2 , Susceptible-Dose Dependent >2 , Resistant >=16 Ertapenem S <=0.5 F Susceptible <=0.5 , Intermediate >.5 , Resistant >1 Meropenem S <=0.25 F Susceptible <=1 , Intermediate >1 , Resistant >2 Ampicillin/Sulbact S <=2 F Susceptible <=8 , Intermediate >8 , Resistant >16 Piperacillin/Tazobac S <=4 F Susceptible <16 , Susceptible-Dose Dependent >=16 , Resistant >=32 Gentamicin S <=1 F Susceptible <=2 , Intermediate >2 , Resistant >=8 Tobramycin S <=1 F Susceptible <4 , Intermediate >=4 , Resistant >=8 Trimeth sulfameth S <=20 F Susceptible <=40 , Resistant >40 Ciprofloxacin S <=0.25 F Susceptible <0.5 , Intermediate >=.5 , Resistant >=1 Nitrofurantoin R 128 F Susceptible <=32 , Intermediate >32 , Resistant >64 Abnormal [facility] Comment on above: Performed By: #### 6 30-4 ####[facility] [id number] [place] [address] [place] Urinalysis complete panel (U )on 08-19-2024 Bacteria uL uL High - 941 uL [facility] Bilirubin Ql (U) Negative Normal Negative [facility] Comment on above: Order Comment: Speci men Type: URINE SPECIMENOrdering Facility: [facility] Address: [address] [place] [address] Performed By: #### 2 4356-8 ####[facility] [id number] [address] [place] [address] [place] Clarity (Unsp spec) Cloudy Abnormal Clear [facility] Comment on above: Order Comment: Speci men Type: URINE SPECIMENOrdering Facility: [facility] Address: [address] [place] [address] Performed By: #### 2 4356-8 ####[facility] [id number] [address], [facility] [place] Color (U) Yellow Normal Yellow [facility] Comment on above: Order Comment: Speci men Type: URINE SPECIMENOrdering Facility: [facility] Address: [address] [place] [address] Performed By: #### 2 4356-8 ####[facility] LABIA [id number] [place] [address] [place] Epithelial cells LM.HPF (Urine sed) [#/Area] Few Normal [facility] Comment on above: Order Comment: Speci men Type: URINE SPECIMENOrdering Facility: [facility] Address: [address] [place] [address] Performed By: #### 2 4356-8 ####[facility] [id number] [address], [facility] [place] Glucose Test strip (U) [Mass/Vol] Negative Normal Negative [facility] Comment on above: Order Comment: Speci men Type: URINE SPECIMENOrdering Facility: [facility] Address: [address] [place] [address] Performed By: #### 2 4356-8 ####[facility] [id number] [place] [id number] [place] Hemoglobin Ql (U) Negative Normal Negative [facility] Comment on above: Order Comment: Speci men Type: URINE SPECIMENOrdering Facility: [facility] Address: [address] [place] [address] Performed By: #### 2 4356-8 ####[facility] [id number] [address] [place] [address] [place] Hyaline casts (Urine sed) [#/Area] 1-3 /LPF Abnormal 0 /LPF [facility] Comment on above: Order Comment: Speci men Type: URINE SPECIMENOrdering Facility: [facility] Address: [address] [place] [address] Performed By: #### 2 4356-8 ####[facility] [id number] [address] [place] [address] [place] Interpretation and review of laboratory results Abnormal [facility] Ketones Ql (U) Negative Normal Negative [facility] Comment on above: Order Comment: Speci men Type: URINE SPECIMENOrdering Facility: [facility] Address: [address] [place] [address] Performed By: #### 2 4356-8 ####[facility] [id number] [address], [facility]95 [place] Leukocyte esterase Test strip Ql (U) 1+ Abnormal Negative [facility] Comment on above: Order Comment: Speci men Type: URINE SPECIMENOrdering Facility: [facility] Address: [address] [place] [address] Performed By: #### 2 4356-8 ####[facility] [id number] [address], [facility]95 [place] Nitrite Ql (U) Negative Normal Negative [facility] Comment on above: Order Comment: Speci men Type: URINE SPECIMENOrdering Facility: [facility] Address: [address] [place] [address] Performed By: #### 2 4356-8 ####[facility] [id number] [address] [place] [address] [place] pH (U) High NINF - 8.5 [facility] Protein (U) [Mass/Vol] 1+ Abnormal Negative [facility] Comment on above: Order Comment: Speci men Type: URINE SPECIMENOrdering Facility: [facility] Address: [address] [place] [address] Performed By: #### 2 4356-8 ####[facility]CLIA [id number] [place] [address] [place] RBC LM.HPF (Urine sed) [#/Area] 0-2 /HPF Normal 0-2 /HPF [facility] Comment on above: Order Comment: Speci men Type: URINE SPECIMENOrdering Facility: [facility] Address: [address] [place] [address] Performed By: #### 2 4356-8 ####[facility] LABIA [id number] [place] [address] [place] Specific gravity (U) [Rel density] 1.015 Normal 1.005-1.030 [facility] Comment on above: Order Comment: Speci men Type: URINE SPECIMENOrdering Facility: [facility] Address: [address] [place] [address] Performed By: #### 2 4356-8 ####[facility] LABIA [id number] [address] [place] Urobilinogen Ql (U) 0.2 EU/dL Normal 0.2-1.0 EU/dL [facility] Comment on above: Order Comment: Speci men Type: URINE SPECIMENOrdering Facility: [facility] Address: [address] [place] [address] Performed By: #### 2 4356-8 ####[facility]CLIA [id number] [place] [address] [place] WBC LM.HPF (Urine sed) [#/Area] 0-5 /HPF Normal 0-5 /HPF [facility] Comment on above: Order Comment: Speci men Type: URINE SPECIMENOrdering Facility: [facility] Address: [address] [place] [address] Performed By: #### 2 4356-8 ####[facility]CLIA [id number] [place] [id number] [place] Patient to collect f rom home This test was developed and its performance characteristics determined by [facility]'s [facility] [place] ([facility]). It has not been cleared or approved by the FDA. [facility] is regulated under CLIA as qualified to perform high-complexity testing. This test is used for clinical purposes. It should not be regarded as investigational or for research. [facility] BACTERIA UL >9821 High Negative [facility] Comment on above: Order Comment: Speci men Type: URINE SPECIMENOrdering Facility: [facility] Address: [address] [place] [address] Performed By: #### 2 4356-8 ####[facility] [id number] [place] [id number] [place] pH (U) [pH] High <8.5 [facility] Comment on above: Order Comment: Speci men Type: URINE SPECIMENOrdering Facility: [facility] Address: [address] [place] [address] Performed By: #### 2 4356-8 ####[facility] [id number] [place] [id number] [place] Comprehensive metabolic 2000 panelon 08-13-2024 Albumin [Mass/Vol] 4.2 g/dL 3.9 - 4.9 g/dL [facility] ALP [Catalytic activity/Vol] 123 U/L 34 - 123 U/L [facility] ALT [Catalytic activity/Vol] 16 U/L 7 - 38 U/L [facility] Anion gap [Moles/Vol] 10 mmol/L 8 - 15 mmol/L [facility] AST [Catalytic activity/Vol] 17 U/L 13 - 35 U/L [facility] Bilirubin [Mass/Vol] 0.3 mg/dL 0.2 - 1 .3 mg/dL [facility] Calcium [Mass/Vol] 9.8 mg/dL 8.5 - 10. 2 mg/dL [facility] Chloride [Moles/Vol] 103 mmol/L 98 - 10 7 mmol/L [facility] CO2 [Moles/Vol] 28 mmol/L 22 - 30 mmol/L [facility] Creatinine [Mass/Vol] 0.57 mg/dL Low 0.58 - 0.96 mg/dL [facility] GFR/1.73 sq M.predicted among non-blacks MDRD (S/P/Bld) [Vol rate/Area] 98 mL/min/{1.73_m2} - PINF [facility] Comment on above: Estimated Glomerular Filtration Rate (eGFR) is calculated using the 2020 CKD-EPI creatinine equation. This equation utilizes serum creatinine, sex, and age as parameters. The creatinine assay has traceable calibration to isotope dilution-mass spectrometry. Refer to KDIGO guidelines for clinical interpretation. In patients with unstable renal function, e.g. those with acute kidney injury, the eGFR may not accurately reflect actual GFR. Glucose [Mass/Vol] 93 mg/dL 74 - 99 mg/dL [facility] Comment on above: The [place] Diabete s Association (ADA) provides guidance for cutoff values for fasting glucose and random glucose. The ADA defines fasting as no caloric intake for at least 8 hours. Fasting plasma glucose results between 100 to 125 mg/dL indicate increased risk for diabetes (prediabetes). Fasting plasma glucose results greater than or equal to 126 mg/dL meet the criteria for diagnosis of diabetes. In the absence of unequivocal hyperglycemia, results should be confirmed by repeat testing. In a patient with classic symptoms of hyperglycemia or hyperglycemic crisis, random plasma glucose results greater than or equal to 200 mg/dL meet the criteria for diagnosis of diabetes. Reference: Standards of Medical Care in Diabetes 2016, [place] Diabetes Association. Diabetes Care. 2016.39(Suppl 1). Potassium [Moles/Vol] 5 mmol/L 3.7 - 5.1 mmol/L [facility] Protein [Mass/Vol] 6.9 g/dL 6.3 - 8.0 g/dL [facility] Sodium [Moles/Vol] 141 mmol/L 136 - 144 mmol/L [facility] Urea nitrogen [Mass/Vol] 18 mg/dL 7 - 21 mg/dL [facility] FERRITINon 08-13-2024 Ferritin [Mass/Vol] 65.6 ng/mL 14.7 - 205.1 ng/mL [facility] Ferritin [Mass/Vol]on 2024 Interpretation and review of laboratory results Normal [facility] Iron and Iron binding capaci ty panelon 08-13-2024 Interpretation and review of laboratory results Normal [facility] Iron [Mass/Vol] 55 ug/dL 41 - 186 ug/dL [facility] Iron binding capacity [Mass/Vol] 305 ug/dL 232 - 386 ug/dL [facility] Iron/TIBC [Molar ratio] 18 % 15.0 - 57.0 % [facility] Lipid 1996 panelon Cholesterol [Mass/Vol] 175 mg/dL NINF - 200 mg/dL [facility] Comment on above: <200 mg/dL, Desirabl e 200-239 mg/dL, Borderline high >239 mg/dL, High Cholesterol in HDL [Mass/Vol] 50 mg/dL 39 - PINF mg/dL [facility] Comment on above: 40-59 mg/dL, Accepta ble >59 mg/dL, High: Negative risk factor for coronary heart disease <40 mg/dL, Low: Positive risk factor for coronary heart disease Cholesterol in LDL [Mass/Vol] 104 mg/dL High NINF - 100 mg/dL [facility] Comment on above: <100 mg/dL, Optimal 100-129 mg/dL, Near optimal/above optimal 130-159 mg/dL, Borderline high 160-189 mg/dL, High >189 mg/dL, Very high Secondary prevention optimal LDL Cholesterol levels are recommended to be <70 mg/dL LDL cholesterol is calculated using the Quick-NIH equation. Cholesterol in LDL/Cholesterol in HDL [Mass ratio] 2.08 {ratio} NINF - 2.54 [facility] Comment on above: Reference: 1. National Cholesterol Education Program ATP III Guideline At-A-Glance Quick Desk Reference: National Heart, Lung, and Blood [place]. National Institutes of Health. 2001: NIH Publication No. 01-3305. 2. An International Atherosclerosis Society position paper: global recommendations for the management of dyslipidemia: executive summary, Atherosclerosis. 2014: 232(2):410-413. Cholesterol in VLDL [Mass/Vol] 19 mg/dL NINF - 30 mg/dL [facility] Cholesterol non HDL [Mass/Vol] 125 mg/dL NINF - 130 mg/dL [facility] Comment on above: <130 mg/dL, Optimal 130-159 mg/dL, Near optimal/above optimal 160-189 mg/dL, Borderline high 190-219 mg/dL, High >219 mg/dL, Very high Secondary prevention optimal non HDL Cholesterol levels are recommended to be <100 mg/dL Cholesterol.total/Cho lesterol in HDL [Mass ratio] 3.5 {ratio} NINF - 5.10 [facility] Fasting Time 15 hrs [facility] Triglyceride [Mass/Vol] 115 mg/dL NINF - 150 mg/dL [facility] Comment on above: <150 mg/dL, Normal 150-199 mg/dL, Borderline high 200-499 mg/dL, High >499 mg/dL, Very high MAGNESIUMon 08-13-2024 Magnesium [Mass/Vol] 2.1 mg/dL 1.7 - 2 .3 mg/dL [facility] Magnesium [Mass/Vol]on 08-13 Interpretation and review of laboratory results Normal [facility] No Panel Informationon 08-13 Interpretation and review of laboratory results Abnormal [facility] 25(OH)D3 SerPl-mCncon 2024 25-hydroxyvitamin D3 [Mass/Vol] 30.0 ng/mL Low 31.0-80.0 [facility] Comment on above: Order Comment: Speci men Type: BLOOD SPECIMENOrdering Facility: [facility] Address: [address] [place] [address] Result Comment: Clas sification of 25 [place] Vitamin D status: Deficiency/Insufficiency: < or = 30 ng/ml. Sufficiency/Optimal Levels: 31-80 ng/mL Toxicity: > 100 ng/mL. Test performed by chemiluminescent immunoassay. Performed By: #### 1 989-3 ####[facility] [id number] [place] [address] [place] 25-hydroxyvitamin D3 [Mass/V ol]on 08-12-2024 Interpretation and review of laboratory results Abnormal [facility] The reference range interval was based on an analysis of samples from healthy adults and may not pertain to children from 0-18 years old. [facility] CBC W Auto Differential pane l (Bld)on 08-12-2024 Basophils (Bld) [#/Vol] 0.05 10*3/uL [facility] Basophils/100 WBC (Bld) 0.6 % [facility] Differential cell count method Nom (Bld) Auto [facility] Eosinophils (Bld) [#/Vol] 0.36 10*3/uL [facility] Eosinophils/100 WBC (Bld) 4.1 % [facility] Erythrocyte distribution width (RBC) [Ratio] 14.9 % 11.5 - 15.0 % [facility] Hematocrit (Bld) [Volume fraction] 43.4 % 36.0 - 46.0 % [facility] Hemoglobin (Bld) [Mass/Vol] 13 g/dL 11.5 - 15.5 g/dL [facility] Immature granulocytes (Bld) [#/Vol] 0.03 10*3/uL [facility] Immature granulocytes/100 WBC (Bld) 0.3 % [facility] Interpretation and review of laboratory results Abnormal [facility] Lymphocytes (Bld) [#/Vol] 1.6 10*3/uL [facility] Lymphocytes/100 WBC (Bld) 18.1 % [facility] MCH (RBC) [Entitic mass] 25.8 pg Low 26.0 - 34.0 pg [facility] MCHC (RBC) [Mass/Vol] 30 g/dL Low 30.5 - 36.0 g/dL [facility] MCV (RBC) [Entitic vol] 86.3 fL 80.0 - 100.0 fL [facility] Monocytes (Bld) [#/Vol] 0.5 10*3/uL [facility] Monocytes/100 WBC (Bld) 5.6 % [facility] Neutrophils (Bld) [#/Vol] 6.31 10*3/uL [facility] Neutrophils/100 WBC (Bld) 71.3 % [facility] Nucleated RBC (Bld) [#/Vol] [facility] Nucleated RBC/100 WBC (Bld) [Ratio] 0 % /100 WBC [facility] Platelet mean volume (Bld) [Entitic vol] 10.9 fL 9.0 - 12.7 fL [facility] Platelets (Bld) [#/Vol] 304 10*3/uL [facility] RBC (Bld) [#/Vol] 5.03 10*6/uL 3.90 - 5.2 0 m/uL [facility] WBC (Bld) [#/Vol] 8.85 10*3/uL [facility] Basophils (Bld) [#/Vol] 0.05 10*3/uL Normal <0.11 [facility] Comment on above: Order Comment: Speci men Type: BLOOD SPECIMEN [facility] Address: [address] [place] [address] Performed By: #### 5 7021-8 #### [facility] CLIA [id number] [address] [place] [address] [place] Basophils/100 WBC (Bld) 0.6 % Normal [facility] Comment on above: Order Comment: Speci men Type: BLOOD SPECIMEN [facility] Address: [address] [place] [address] Performed By: #### 5 7021-8 #### [facility] CLIA [id number] [address] [place] [address] [place] Differential cell count method Nom (Bld) Auto Normal [facility] Comment on above: Order Comment: Speci men Type: BLOOD SPECIMEN [facility] Address: [address] [place] [address] Performed By: #### 5 7021-8 #### [facility] CLIA [id number] [address] [place] [address] [place] Eosinophils (Bld) [#/Vol] 0.36 10*3/uL Normal <0.46 [facility] Comment on above: Order Comment: Speci men Type: BLOOD SPECIMEN [facility] Address: [address] [place] [address] Performed By: #### 5 7021-8 #### [facility] CLIA [id number] [address] [place] [address] [place] Eosinophils/100 WBC (Bld) 4.1 % Normal [facility] Comment on above: Order Comment: Speci men Type: BLOOD SPECIMEN [facility] Address: [address] [place] [address] Performed By: #### 5 7021-8 #### [facility] CLIA [id number] [address] [place] [address] [place] Erythrocyte distribution width (RBC) [Ratio] 14.9 % Normal 11.5-15.0 [facility] Comment on above: Order Comment: Speci men Type: BLOOD SPECIMEN [facility] Address: [address] [place] [address] Performed By: #### 5 7021-8 #### [facility] CLIA [id number] [address] [place] [address] [place] Hematocrit (Bld) [Volume fraction] 43.4 % Normal 36.0-46.0 [facility] Comment on above: Order Comment: Speci men Type: BLOOD SPECIMEN [facility] Address: [address] [place] [address] Performed By: #### 5 7021-8 #### [facility] CLIA [id number] [address] [place] [address] [place] Hemoglobin (Bld) [Mass/Vol] 13.0 g/dL Normal 11.5-15.5 [facility] Comment on above: Order Comment: Speci men Type: BLOOD SPECIMEN [facility] Address: [address] [place] [address] Performed By: #### 5 7021-8 #### [facility] CLIA [id number] [address] [place] [address] [place] Immature granulocytes (Bld) [#/Vol] 0.03 10*3/uL Normal <0.10 [facility] Comment on above: Order Comment: Speci men Type: BLOOD SPECIMEN [facility] Address: [address] [place] [address] Performed By: #### 5 7021-8 #### [facility] CLIA [id number] [address] [place] [address] [place] Immature granulocytes/100 WBC (Bld) 0.3 % Normal [facility] Comment on above: Order Comment: Speci men Type: BLOOD SPECIMEN [facility] Address: [address] [place] [address] Performed By: #### 5 7021-8 #### [facility] CLIA [id number] [address] [place] [address] [place] Lymphocytes (Bld) [#/Vol] 1.60 10*3/uL Normal 1.00-4.00 [facility] Comment on above: Order Comment: Speci men Type: BLOOD SPECIMEN [facility] Address: [address] [place] [address] Performed By: #### 5 7021-8 #### [facility] CLIA [id number] [address] [place] [address] [place] Lymphocytes/100 WBC (Bld) 18.1 % Normal [facility] Comment on above: Order Comment: Speci men Type: BLOOD SPECIMEN [facility] Address: [address] [place] [address] Performed By: #### 5 7021-8 #### [facility] CLIA [id number] [address] [place] [address] [place] MCH (RBC) [Entitic mass] 25.8 pg Low 26.0-34.0 [facility] Comment on above: Order Comment: Speci men Type: BLOOD SPECIMEN [facility] Address: [address] [place] [address] Performed By: #### 5 7021-8 #### [facility] CLIA [id number] [address] [place] [address] [place] MCHC (RBC) [Mass/Vol] 30.0 g/dL Low 30.5-36.0 [facility] Comment on above: Order Comment: Speci men Type: BLOOD SPECIMEN [facility] Address: [address] [place] [address] Performed By: #### 5 7021-8 #### [facility] CLIA [id number] [address] [place] [address] [place] MCV (RBC) [Entitic vol] 86.3 fL Normal 80.0-100.0 [facility] Comment on above: Order Comment: Speci men Type: BLOOD SPECIMEN [facility] Address: [address] [place] [address] Performed By: #### 5 7021-8 #### [facility] CLIA [id number] [address] [place] [address] [place] Monocytes (Bld) [#/Vol] 0.50 10*3/uL Normal <0.87 [facility] Comment on above: Order Comment: Speci men Type: BLOOD SPECIMEN [facility] Address: [address] [place] [address] Performed By: #### 5 7021-8 #### [facility] CLIA [id number] [address] [place] [address] [place] Monocytes/100 WBC (Bld) 5.6 % Normal [facility] Comment on above: Order Comment: Speci men Type: BLOOD SPECIMEN [facility] Address: [address] [place] [address] Performed By: #### 5 7021-8 #### [facility] CLIA [id number] [address] [place] [address] [place] Neutrophils (Bld) [#/Vol] 6.31 10*3/uL Normal 1.45-7.50 [facility] Comment on above: Order Comment: Speci men Type: BLOOD SPECIMEN [facility] Address: [address] [place] [address] Performed By: #### 5 7021-8 #### [facility] CLIA [id number] [address] [place] [address] [place] Neutrophils/100 WBC (Bld) 71.3 % Normal [facility] Comment on above: Order Comment: Speci men Type: BLOOD SPECIMEN [facility] Address: [address] [place] [address] Performed By: #### 5 7021-8 #### [facility] CLIA [id number] [address] [place] [address] [place] Nucleated RBC (Bld) [#/Vol] 10*3/uL Normal <0.01 [facility] Comment on above: Order Comment: Speci men Type: BLOOD SPECIMEN Ordering Facility: [facility] Address: [address] [place] [address] Performed By: #### 5 7021-8 #### [facility] CLIA [id number] [address] [place] [address] [place] Nucleated RBC/100 WBC (Bld) [Ratio] 0.0 /100 WBC Normal [facility] Comment on above: Order Comment: Speci men Type: BLOOD SPECIMEN Ordering Facility: [facility] Address: [address] [place] [address] Performed By: #### 5 7021-8 #### [facility] CLIA [id number] [address] [place] [address] [place] Platelet mean volume (Bld) [Entitic vol] 10.9 fL Normal 9.0-12.7 [facility] Comment on above: Order Comment: Speci men Type: BLOOD SPECIMEN Ordering Facility: [facility] Address: [address] [place] [address] Performed By: #### 5 7021-8 #### [facility] CLIA [id number] [address] [place] [address] [place] Platelets (Bld) [#/Vol] 304 10*3/uL Normal 150-400 [facility] Comment on above: Order Comment: Speci men Type: BLOOD SPECIMEN Ordering Facility: [facility] Address: [address] [place] [address] Performed By: #### 5 7021-8 #### [facility] CLIA [id number] [address] [place] [address] [place] RBC (Bld) [#/Vol] 5.03 10*6/uL Normal 3.90-5.20 [facility] Comment on above: Order Comment: Speci men Type: BLOOD SPECIMEN Ordering Facility: [facility] Address: [address] [place] [address] Performed By: #### 5 7021-8 #### [facility] CLIA [id number] [address] [place] [address] [place] WBC (Bld) [#/Vol] 8.85 10*3/uL Normal 3.70-11.00 [facility] Comment on above: Order Comment: Speci men Type: BLOOD SPECIMEN Ordering Facility: [facility] Address: [address] [place] [address] Performed By: #### 5 7021-8 #### [facility] CLIA [id number] [address] [place] [address] [place] CNOVon 08-12-2024 CNOV Office Visit (INTM[facility] ) -- SONIA KARIMI ([id number]) 1955 F Date Time Provider Department 08/12/24 10:40 AM MELISSA MUHAMMAD [facility] During your visit today, we recorded the following information about you: Pulse Respiration Blood pressure 72/minute 16/minute 126/76 Melissa Muhammad MD 09/10/2024 12:16 AM Signed This note was created using [employer]olk[employer]. Subjective Sonia Karimi is a 68 year old female. SUBJECTIVE: Sonia Karimi is a 68-year-old female with a history of spinal stenosis and moderate to severe shoulder arthritis, presenting for follow-up after recent discharge from home health services. She is accompanied by Krystal, who is providing additional history. Sonia was recently discharged from [facility] 2 weeks ago, despite expressing dissatisfaction with the care provided. She reports that the discharge was predetermined and not based on her progress. She feels that she still requires assistance with activities of daily living, such as transferring onto her shower chair and performing personal grooming tasks. She also notes that occupational therapy was discontinued before physical therapy, and she did not receive adequate support for her upper extremities. Sonia has a history of spinal stenosis and moderate to severe shoulder arthritis, with limited range of motion in her shoulders and wrists. She experiences constant shoulder pain and has difficulty using utensils and performing household tasks. Previous x-rays indicated moderate to severe arthritis, and an orthopedic surgeon mentioned the possibility of future shoulder replacement. She also reports increased urinary frequency, sometimes needing to urinate again within 10 seconds of voiding. She denies current symptoms of a UTI, but requests a urine sample to be taken for evaluation. She also requests fasting blood work, as her previous tests were not done while fasting. She mentions a history of low vitamin D levels and recent bleeding in the hospital, which was treated with cauterization and medication. Additionally, she reports an ingrown toenail on her right hallux and requests a referral to a fuel efficient aircraft designer. She also experiences crusty discharge from her eyes, which she suspects may be due to allergies. PAST MEDICAL HISTORY Diagnosis Date Cervical polyp Cervical spine disease COPD (chronic obstructive pulmonary disease) (HCC) Hyperlipidemia Hypertension Mild aortic regurgitation repeat echocardiogram [id number] if no other changes Minor depression IRIS (obstructive sleep apnea) Thyroid nodule greater than or equal to 1.5 cm in diameter incidentally noted on imaging study 11/17/2020 b/l nodules. Dominant nodule within the lower pole of the right lobe, measuring up to 6.2 cm, increased in size in the interval. Current Outpatient Medications Medication Sig fluticasone (FLONASE ALLERGY RELIEF) 50 mcg/actuation nasal spray Use 1 spray in each nostril once daily. polyethylene glycol 3350 (MIRALAX) 17 gram/dose powder Take 17 g by mouth once daily. as needed for constipation. Dissolve dose in 4 - 8 ounces of liquid and take as directed. Take in the morning. tiZANidine (ZANAFLEX) 4 mg tablet Take 1 tablet by mouth every 8 hours. atorvastatin (LIPITOR) 10 mg tablet Take 1 tablet by mouth once daily. DULoxetine (CYMBALTA) 30 mg capsule Take 1 capsule by mouth daily at bedtime. daily DULoxetine (CYMBALTA) 60 mg capsule Take 1 capsule by mouth once daily. Take in the morning. gabapentin (NEURONTIN) 800 mg tablet Take 1 tablet by mouth three times a day for 180 days. hydrOXYzine pamoate (VISTARIL) 25 mg capsule Take 1 capsule by mouth daily at bedtime. daily losartan (COZAAR) 50 mg tablet Take 1 tablet by mouth two times a day. pantoprazole DR (PROTONIX) 40 mg tablet Take 1 tablet by mouth two times a day. cholecalciferol (VITAMIN D3) 50 mcg (2,000 unit) tablet Take 1 tablet by mouth once daily. melatonin 5 mg tablet Take 1 tablet by mouth daily at bedtime. [facility] [employer] diclofenac (VOLTAREN) 1 % topical gel Apply 4 g to affected area four times daily. FOR EXTERNAL USE ONLY APPLY TO: right knee Use provided dosing card to measure the ordered dose. acetaminophen (TYLENOL) 500 mg tablet Take 500 mg by mouth twice daily as needed for pain. COMPOUNDED PRESCRIPTION BIPAP 1 liter bleed in 12/5 cm. RR 14 Replacement machine with heated humidity. CPAP mask and supplies. Use nightly. amLODIPine (NORVASC) 10 mg tablet Take 1 tablet by mouth once daily. benzonatate (TESSALON PERLE) 100 mg capsule Take 2 capsules by mouth three times a day as needed. (Patient not taking: Reported on 08/12/2024) diclofenac XR (VOLTAREN-XR) 100 mg Tb24 TAKE 1 TABLET BY MOUTH DAILY WITH FOOD NEEDED FOR PAIN (Patient not taking: Reported on 04/18/2024) gabapentin (NEURONTIN) 300 mg caps (more content not included)... Normal [facility] metabolic 2000 panelon 08-12-2024 Albumin [Mass/Vol] 4.2 g/dL Normal 3.9-4.[address] [facility] Comment on above: Order Comment: Speci men Type: BLOOD SPECIMENOrdering Facility: [facility] Address: [address] [place] [address] Performed By: #### 2 4323-8, 2276-4, 99144-5, 35478-3 ####[facility] [id number] [place] [address] [place] ALP [Catalytic activity/Vol] 123 U/L Normal 34-123 [facility] Comment on above: Order Comment: Speci men Type: BLOOD SPECIMENOrdering Facility: [facility] Address: [address] [place] [address] Performed By: #### 2 4323-8, 6-4, 84286-4, 81206-3 ####[facility] [id number] [place] [address] [place] ALT [Catalytic activity/Vol] 16 U/L Normal 7-38 [facility] Comment on above: Order Comment: Speci men Type: BLOOD SPECIMENOrdering Facility: [facility] Address: [address] [place] [address] Performed By: #### 2 4323-8, 6-4, 28047-7, 63021-3 ####[facility] [id number] [place] [id number] [place] Anion gap [Moles/Vol] 10 mmol/L Normal 8-15 [facility] Comment on above: Order Comment: Speci men Type: BLOOD SPECIMENOrdering Facility: [facility] Address: [address] [place] [address] Performed By: #### 2 4323-8, 6-4, 89873-7, 47386-2 ####[facility] [id number] [address] [address] [place] AST [Catalytic activity/Vol] 17 U/L Normal 13-35 [facility] Comment on above: Order Comment: Speci men Type: BLOOD SPECIMENOrdering Facility: [facility] Address: [address] [place] [address] Performed By: #### 2 4323-8, 2276-4, 02232-3, 27103-7 ####[facility] [id number] [facility] [address] [address] [place] Bilirubin [Mass/Vol] 0.3 mg/dL Normal 0.2-1.3 [facility] Comment on above: Order Comment: Speci men Type: BLOOD SPECIMENOrdering Facility: [facility] Address: [address] [place] [address] Performed By: #### 2 4323-8, 2276-4, 62478-6, 77914-7 ####[facility] [id number] [place] [address] [place] Calcium [Mass/Vol] 9.8 mg/dL Normal 8.5-10.[address] [facility] Comment on above: Order Comment: Speci men Type: BLOOD SPECIMENOrdering Facility: [facility] Address: [address] [place] [address] Performed By: #### 2 4323-8, 2276-4, 67012-1, 04083-5 ####[facility] [id number] [place] [id number] [place] Chloride [Moles/Vol] 103 mmol/L Normal 98-107 [facility] Comment on above: Order Comment: Speci men Type: BLOOD SPECIMENOrdering Facility: [facility] Address: [address] [place] [address] Performed By: #### 2 4323-8, 6-4, 39889-1, 32830-2 ####[facility] [id number] [facility] [address] [address] [place] CO2 [Moles/Vol] 28 mmol/L Normal 22-30 [facility] Comment on above: Order Comment: Speci men Type: BLOOD SPECIMENOrdering Facility: [facility] Address: [address] [place] [address] Performed By: #### 2 4323-8, 2276-4, 24973-8, 44336-2 ####[facility] [id number] [address] [address] [place] Creatinine [Mass/Vol] 0.57 mg/dL Low 0.58-0.96 [facility] Comment on above: Order Comment: Speci men Type: BLOOD SPECIMENOrdering Facility: [facility] Address: [address] [place] [address] Performed By: #### 2 4323-8, 6-4, 16454-7, 66974-9 ####[facility] [id number] [place] [address] [place] Creatinine and Glomerular filtration rate.predicted panel (S/P/Bld) 98 mL/min/1.73m??? Normal >=60 [facility] Comment on above: Order Comment: Aramisi men Type: BLOOD SPECIMENOrdering Facility: [facility] Address: [address] [place] [address] Result Comment: Tali mated Glomerular Filtration Rate (eGFR) is calculated using the 2020 CKD-EPI creatinine equation. This equation utilizes serum creatinine, sex, and age as parameters. The creatinine assay has traceable calibration to isotope dilution-mass spectrometry. Refer to KDIGO guidelines for clinical interpretation. In patients with unstable renal function, e.g. those with acute kidney injury, the eGFR may not accurately reflect actual GFR. Performed By: #### 2 4323-8, 2276-4, 27997-5, 90757-2 ####[facility] [id number] [address] [address] [place] Glucose [Mass/Vol] 93 mg/dL Normal 74-[address] [facility] Comment on above: Order Comment: Speci men Type: BLOOD SPECIMENOrdering Facility: [facility] Address: [address] [place] [address] Result Comment: The [place] Diabetes Association (ADA) provides guidance for cutoff values for fasting glucose and random glucose. The ADA defines fasting as no caloric intake for at least 8 hours. Fasting plasma glucose results between 100 to 125 mg/dL indicate increased risk for diabetes (prediabetes). Fasting plasma glucose results greater than or equal to 126 mg/dL meet the criteria for diagnosis of diabetes. In the absence of unequivocal hyperglycemia, results should be confirmed by repeat testing. In a patient with classic symptoms of hyperglycemia or hyperglycemic crisis, random plasma glucose results greater than or equal to 200 mg/dL meet the criteria for diagnosis of diabetes. Reference: Standards of Medical Care in Diabetes 2016, [place] Diabetes Association. Diabetes Care. 2016.39(Suppl 1). Performed By: #### 2 4323-8, 6-4, 76743-5, 16549-6 ####[facility] [id number] [place] [address] [place] Potassium [Moles/Vol] 5.0 mmol/L Normal 3.7-5.1 [facility] Comment on above: Order Comment: Speci men Type: BLOOD SPECIMENOrdering Facility: [facility] Address: [address] [place] [address] Performed By: #### 2 4323-8, 6-4, 39529-8, 60144-9 ####[facility] [id number] [place] [id number] [place] Protein [Mass/Vol] 6.9 g/dL Normal 6.3-8.[address] [facility] Comment on above: Order Comment: Speci men Type: BLOOD SPECIMENOrdering Facility: [facility] Address: [address] [place], [place] [address] Performed By: #### 2 4323-8, 6-4, 43302-3, 18014-8 ####[facility] [id number] [place] [id number] [place] Sodium [Moles/Vol] 141 mmol/L Normal 136-[address] [facility] Comment on above: Order Comment: Speci men Type: BLOOD SPECIMENOrdering Facility: [facility] Address: [address] [place] [address] Performed By: #### 2 4323-8, 2276-4, 97920-5, 24718-6 ####[facility] [id number] [place] [address] [place] Urea nitrogen [Mass/Vol] 18 mg/dL Normal 7-21 [facility] Comment on above: Order Comment: Speci men Type: BLOOD SPECIMENOrdering Facility: [facility] Address: [address] [place] [address] Performed By: #### 2 4323-8, 6-4, 72883-8, 54245-3 ####[facility] [id number] [place] [address] [place] Ferritin SerPl-ncon 2024 Ferritin [Mass/Vol] 65.6 ng/mL Normal 14.7-205.1 [facility] Comment on above: Order Comment: Speci men Type: BLOOD SPECIMENOrdering Facility: [facility] Address: [address] [place] [address] Performed By: #### 2 4323-8, 2276-4, 00862-2, 07041-0 ####[facility] [id number] [place] [address] [place] Iron and Iron binding capaci ty panelon 08-12-2024 Iron [Mass/Vol] 55 ug/dL Normal 41-186 [facility] Comment on above: Order Comment: Speci men Type: BLOOD SPECIMENOrdering Facility: [facility] Address: [address] [place] [address] Performed By: #### 2 4323-8, 2276-4, 27398-6, 57974-1 ####[facility] [id number] [address] [address] [place] Iron binding capacity [Mass/Vol] 305 ug/dL Normal 232-386 [facility] Comment on above: Order Comment: Speci men Type: BLOOD SPECIMENOrdering Facility: [facility] Address: [address] [place] [address] Performed By: #### 2 4323-8, 2276-4, 79998-3, 24510-5 ####[facility] [id number] [place] [id number] [place] Iron/TIBC [Molar ratio] 18.0 % Normal 15.0-57.0 [facility] Comment on above: Order Comment: Speci men Type: BLOOD SPECIMENOrdering Facility: [facility] Address: [address] [place] [address] Performed By: #### 2 4323-8, 2276-4, 94212-1, 32347-2 ####[facility] [id number] [place] [id number] [place] Lipid 1996 panelon 5 Cholesterol [Mass/Vol] 175 mg/dL Normal <200 [facility] Comment on above: Order Comment: Speci men Type: BLOOD SPECIMENOrdering Facility: [facility] Address: [address] [place] [address] Result Comment: <200 mg/dL, Desirable 200-239 mg/dL, Borderline high >239 mg/dL, High Performed By: #### 2 4323-8, 2276-4, 27306-2, 67906-7 ####[facility] [id number] [place] [id number] [place] Cholesterol in HDL [Mass/Vol] 50 mg/dL Normal >39 [facility] Comment on above: Order Comment: Speci men Type: BLOOD SPECIMENOrdering Facility: [facility] Address: [address] [place] [address] Result Comment: 40-5 9 mg/dL, Acceptable >59 mg/dL, High: Negative risk factor for coronary heart disease <40 mg/dL, Low: Positive risk factor for coronary heart disease Performed By: #### 2 4323-8, 2275-4, 32271-9, 03618-8 ####[facility] [id number] [facility] [id number] [address] [place] Cholesterol in LDL [Mass/Vol] 104 mg/dL High <100 [facility] Comment on above: Order Comment: Speci men Type: BLOOD SPECIMENOrdering Facility: [facility] Address: [address] [place] [address] Result Comment: <100 mg/dL, Optimal 100-129 mg/dL, Near optimal/above optimal 130-159 mg/dL, Borderline high 160-189 mg/dL, High >189 mg/dL, Very high Secondary prevention optimal LDL Cholesterol levels are recommended to be <70 mg/dL LDL cholesterol is calculated using the Quick-NIH equation. Performed By: #### 2 4323-8, 2275-4, 69601-3, 02046-3 ####[facility] [id number] [address] [place] [address] [place] Cholesterol in LDL/Cholesterol in HDL [Mass ratio] 2.08 {ratio} Normal <2.54 [facility] Comment on above: Order Comment: Speci men Type: BLOOD SPECIMENOrdering Facility: [facility] Address: [address] [place] [address] Result Comment: Refe rence: 1. National Cholesterol Education Program ATP III Guideline At-A-Glance Quick Desk Reference: National Heart, Lung, and Blood [place]. National Institutes of Health. 2001: NIH Publication No. 01-3305. 2. An International Atherosclerosis Society position paper: global recommendations for the management of dyslipidemia: executive summary, Atherosclerosis. 2014: 232(2):410-413. Performed By: #### 2 4323-8, 6-4, 22592-6, 55634-2 ####[facility] [id number] [facility] [id number] [address] [place] Cholesterol in VLDL [Mass/Vol] 19 mg/dL Normal <30 [facility] Comment on above: Order Comment: Speci men Type: BLOOD SPECIMENOrdering Facility: [facility] Address: [address] [place] [address] Performed By: #### 2 4323-8, 6-4, 99354-6, 05671-7 ####[facility]IA [id number] [address] [address] [place] Cholesterol non HDL [Mass/Vol] 125 mg/dL Normal <130 [facility] Comment on above: Order Comment: Speci men Type: BLOOD SPECIMENOrdering Facility: [facility] Address: [address] [place] [address] Result Comment: <130 mg/dL, Optimal 130-159 mg/dL, Near optimal/above optimal 160-189 mg/dL, Borderline high 190-219 mg/dL, High >219 mg/dL, Very high Secondary prevention optimal non HDL Cholesterol levels are recommended to be <100 mg/dL Performed By: #### 2 4323-8, 6-4, 17824-3, 88021-0 ####[facility] [id number] [address] [address] [place] Cholesterol.total/Cho lesterol in HDL [Mass ratio] 3.50 {ratio} Normal <5.10 [facility] Comment on above: Order Comment: Speci men Type: BLOOD SPECIMENOrdering Facility: [facility] Address: [address] [place] [address] Performed By: #### 2 4323-8, 6-4, 85099-4, 31620-4 ####[facility] [id number] [address] [address] [place] FASTING TIME 15 hrs Normal [facility] Comment on above: Order Comment: Speci men Type: BLOOD SPECIMENOrdering Facility: [facility] Address: [address] [place] [address] Performed By: #### 2 4323-8, 2275-4, 02030-3, 87943-6 ####[facility] [id number] [address] [address] [place] Triglyceride [Mass/Vol] 115 mg/dL Normal <150 [facility] Comment on above: Order Comment: Speci men Type: BLOOD SPECIMENOrdering Facility: [facility] Address: [address] [place] [address] Result Comment: <150 mg/dL, Normal 150-199 mg/dL, Borderline high 200-499 mg/dL, High >499 mg/dL, Very high Performed By: #### 2 4323-8, 6-4, 81762-8, 25600-6 ####[facility]IA [id number] [place] [id number] [place] Magnesium SerPl-mCncon 08-12 Magnesium [Mass/Vol] 2.1 mg/dL Normal 1.7-2.3 [facility] Comment on above: Order Comment: Speci men Type: BLOOD SPECIMENOrdering Facility: [facility] Address: [address] [place] [address] Performed By: #### 1 9123-9 ####[facility] [id number] [place] [id number] [place] VITAMIN D 25 HYDROXYon 08-12 25-hydroxyvitamin D3 [Mass/Vol] 30 ng/mL Low 31.0 - 80.0 ng/mL [facility] Comment on above: Classification of 25 OH Vitamin D status: Deficiency/Insufficiency: < or = 30 ng/ml. Sufficiency/Optimal Levels: 31-80 ng/mL Toxicity: > 100 ng/mL. Test performed by chemiluminescent immunoassay. CNOVon 07-24-2024 CNOV Office Visit ([facility] ) -- SONIA KARIMI ([id number]) 1955 F Date Time Provider Department 07/24/24 10:15 AM HELENA MONTOYA [facility] During your visit today, we recorded the following information about you: Temperature Pulse Respiration Blood pressure 97.4 degrees 74/minute 18/minute 128/78 Helena Montoya APRN.[facility] 07/24/2024 10:39 AM Signed [facility] Subjective Sonia Karimi is a 68 year old female. Patient presents with: Cough: Cough, sinus, congestion and BUCK x 6 days Constitutional: (-) fever Eyes: (+) ocular irritation Ears/Nose/Mouth/Throat: (+) sinus pain/pressure, (+) purulent nasal discharge Respiratory: (+) cough Musculoskeletal: (-) myalgias Objective BP 128/78 Pulse 74 Temp 36.3 ?C (97.4 ?F) (Tympanic) Resp 18 SpO2 93% PAST MEDICAL HISTORY Diagnosis Date Cervical polyp Cervical spine disease COPD (chronic obstructive pulmonary disease) (HCC) Hyperlipidemia Hypertension Mild aortic regurgitation repeat echocardiogram [id number] if no other changes Minor depression IRIS (obstructive sleep apnea) Thyroid nodule greater than or equal to 1.5 cm in diameter incidentally noted on imaging study 11/17/2020 b/l nodules. Dominant nodule within the lower pole of the right lobe, measuring up to 6.2 cm, increased in size in the interval. PAST SURGICAL HISTORY Procedure Laterality Date ADENOIDECTOMY PRIMARY Adenoidectomy PAST SURGICAL HISTORY OF 02/02/2018 neck surgery TONSILLECTOMY PRIMARY/SECONDARY Tonsillectomy ALLERGIES Ativan [Lorazepam], Neomycin, and Valium [Diazepam] MEDICATIONS polyethylene glycol 3350 (MIRALAX) 17 gram/dose powder Take 17 g by mouth once daily. as needed for constipation. Dissolve dose in 4 - 8 ounces of liquid and take as directed. Take in the morning. tiZANidine (ZANAFLEX) 4 mg tablet Take 1 tablet by mouth every 8 hours. atorvastatin (LIPITOR) 10 mg tablet Take 1 tablet by mouth once daily. DULoxetine (CYMBALTA) 30 mg capsule Take 1 capsule by mouth daily at bedtime. daily DULoxetine (CYMBALTA) 60 mg capsule Take 1 capsule by mouth once daily. Take in the morning. gabapentin (NEURONTIN) 800 mg tablet Take 1 tablet by mouth three times a day for 180 days. hydrOXYzine pamoate (VISTARIL) 25 mg capsule Take 1 capsule by mouth daily at bedtime. daily losartan (COZAAR) 50 mg tablet Take 1 tablet by mouth two times a day. pantoprazole DR (PROTONIX) 40 mg tablet Take 1 tablet by mouth two times a day. cholecalciferol (VITAMIN D3) 50 mcg (2,000 unit) tablet Take 1 tablet by mouth once daily. melatonin 5 mg tablet Take 1 tablet by mouth daily at bedtime. [employer] Wheelchair amLODIPine (NORVASC) 10 mg tablet Take 1 tablet by mouth once daily. diclofenac (VOLTAREN) 1 % topical gel Apply 4 g to affected area four times daily. FOR EXTERNAL USE ONLY APPLY TO: right knee Use provided dosing card to measure the ordered dose. acetaminophen (TYLENOL) 500 mg tablet Take 500 mg by mouth twice daily as needed for pain. COMPOUNDED PRESCRIPTION BIPAP 1 liter bleed in 12/5 cm. RR 14 Replacement machine with heated humidity. CPAP mask and supplies. Use nightly. doxycycline (VIBRA-TABS) 100 mg tablet Take 1 tablet by mouth two times a day for 7 days. benzonatate (TESSALON PERLE) 100 mg capsule Take 2 capsules by mouth three times a day as needed. fluticasone (FLONASE ALLERGY RELIEF) 50 mcg/actuation nasal spray Use 1 spray in each nostril once daily. diclofenac XR (VOLTAREN-XR) 100 mg Tb24 TAKE 1 TABLET BY MOUTH DAILY WITH FOOD NEEDED FOR PAIN (Patient not taking: Reported on 04/18/2024) gabapentin (NEURONTIN) 300 mg capsule Take 1 capsule by mouth two times a day for 180 days. (Patient not taking: Reported on 04/18/2024) cloNIDine HCl (CATAPRES) 0.1 mg tablet Take 1 tablet by mouth twice daily. (Patient not taking: Reported on 04/18/2024) FAMILY HISTORY Problem Relation Age of Onset Cancer Mother skin cancer Heart Mother atrial fibrillation Cancer Father leukemia Diabetes Father Cancer Sister cancer in situ - breast Diabetes Sister Cancer Paternal Grandmother colon to liver Cancer Paternal Grandfather stomach cancer Social History Tobacco Use Smoking status: Former Types: Cigarettes Smokeless tobacco: Never Tobacco comments: quit prior to 1979 Substance Use Topics Alcohol use: No Drug use: No Physical Exam Vitals and nursing note reviewed. Constitutional: Appearance: Normal appearance. HENT: Head: Normocephalic and atraumatic. Right Ear: Tympanic membrane normal. Left Ear: Tympanic membrane normal. Nose: Congestion and rhinorrhea present. Right Sinus: Maxillary sinus tenderness and frontal sinus tenderness present. Left Sinus: Maxillary sinus tenderness and frontal sinus tenderness present. Mouth/Throat: Pharynx: Oropharynx is clear. Posterior orop (more content not included)... Normal [facility] 06-28-2024 [facility] Telephone (INTMWS) -- SONIA KARIMI ([id number]) 1955 F Date Time Provider Department 06/28/24 MELISSA MUHAMMAD INTWS During your visit today, we recorded the following information about you: Mariah Ball, RN 06/28/2024 2:12 PM Signed [employer]- reports they received order for fully electric hospital bed Reports insurance will not cover a fully electric bed. They just do not cover these. Insurance will cover a semi electric bed and will cover a new one every 5 years. In ov notes patient stated she is unable to turn the crank to adjust the bed height and insurance will just say to stay at the height she needs for transfers. Please phone [facility] with any questions: [phone] Josephine Hawthorne APRN.PERSONNEL DIRECTOR 06/28/2024 3:33 PM Addendum Sonia Karimi states she was told this would be covered. Please let patient know info below and see what she would like to do. She may want to recheck with the people she spoke to previously. If none of this comes through, she may want to pay [id number] for the change she is interested in, not sure if it can be added on to her current bed. Liza Rucker LPN 06/28/2024 4:34 PM Signed Patient notified of providers message and verbalized understanding. Patient will call back once she speaks to her insurance company again. Mariah Ball RN 07/01/2024 4:40 PM Signed [facility] [employer], called to ask for demographics and ov notes. Advised pt was given [facility] message below and plans to speak with her insurance company. Pt will call back and let provider know what she wants to do. [facility] will cancel the order she received, and states if patient decides she still wants the order, provider will need to send a new one. Allergies As of Date: 06/28/2024 Noted Allergy Reaction ATIVAN (LORAZEPAM) 03/26/2012 4 - Hives NEOMYCIN 02/02/2018 9 - Itching Comments: Hives, itching VALIUM (DIAZEPAM) 11/28/2020 5 - Intolerance Comments: somnolence Date Reviewed: 06/25/2024 Reviewed by: Liza Rucker LPN - Fully Assessed Reason for Visit: Hospital bed problem [Other] Prescriptions as of 07/01/2024 - polyethylene glycol 3350 (MIRALAX) 17 gram/dose powder Take 17 g by mouth once daily. as needed for constipation. Dissolve dose in 4 - 8 ounces of liquid and take as directed. Take in the morning. - tiZANidine (ZANAFLEX) 4 mg tablet Take 1 tablet by mouth every 8 hours. - atorvastatin (LIPITOR) 10 mg tablet Take 1 tablet by mouth once daily. - DULoxetine (CYMBALTA) 30 mg capsule Take 1 capsule by mouth daily at bedtime. daily - DULoxetine (CYMBALTA) 60 mg capsule Take 1 capsule by mouth once daily. Take in the morning. - gabapentin (NEURONTIN) 800 mg tablet Take 1 tablet by mouth three times a day for 180 days. - hydrOXYzine pamoate (VISTARIL) 25 mg capsule Take 1 capsule by mouth daily at bedtime. daily - losartan (COZAAR) 50 mg tablet Take 1 tablet by mouth two times a day. - pantoprazole DR (PROTONIX) 40 mg tablet Take 1 tablet by mouth two times a day. - cholecalciferol (VITAMIN D3) 50 mcg (2,000 unit) tablet Take 1 tablet by mouth once daily. - melatonin 5 mg tablet Take 1 tablet by mouth daily at bedtime. - diclofenac XR (VOLTAREN-XR) 100 mg Tb24 TAKE 1 TABLET BY MOUTH DAILY WITH FOOD NEEDED FOR PAIN - gabapentin (NEURONTIN) 300 mg capsule Take 1 capsule by mouth two times a day for 180 days. - [employer] Power Wheelchair - amLODIPine (NORVASC) 10 mg tablet Take 1 tablet by mouth once daily. - diclofenac (VOLTAREN) 1 % topical gel Apply 4 g to affected area four times daily. FOR EXTERNAL USE ONLY APPLY TO: right knee Use provided dosing card to measure the ordered dose. - cloNIDine HCl (CATAPRES) 0.1 mg tablet Take 1 tablet by mouth twice daily. - acetaminophen (TYLENOL) 500 mg tablet Take 500 mg by mouth twice daily as needed for pain. - COMPOUNDED PRESCRIPTION BIPAP 1 liter bleed in 12/5 cm. RR 14 Replacement machine with heated humidity. CPAP mask and supplies. Use nightly. Problem List As Of Date 06/28/2024 Noted Resolved Essential hypertension [I10] 12/15/2014 Cervical polyp [N84.1] 12/15/2014 11/18/2019 Hyperlipidemia [E78.5] 12/15/2014 Osteoarthritis of both knees [M17.0] 12/15/2014 IRIS treated with BiPAP [G47.33] 12/15/2014 Class 3 severe obesity due to excess calories w*06/02/2017 Cervical myopathy [G72.9] 01/30/2018 Cervical spondylosis with myelopathy [M47.12] 01/30/2018 History of cervical polypectomy [Z98.890, Z87.4*11/18/2019 Paraparesis (HCC) [G82.20] Thyroid nodule [E04.1] 11/19/2020 Ventricular tachycardia, non-sustained (HCC) [I*11/19/2020 Spondylosis with myelopathy, 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*11/21/2020 Paronychia of right middle finger [L03.011] 11/23/2020 Fusion of spine of 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43.24] 11/25/2020 Acute postoperative pain [G89.18] 11/25 (more content not included)... Normal [facility] 06-26-2024 [facility] Telephone (INTMWS) -- SONIA KARIMI ([id number]) 1955 F Date Time Provider Department 06/26/24 JOSEPHINE HAWTHORNE INTMariahWS During your visit today, we recorded the following information about you: Nimesh Trujillo LPN 06/26/2024 11:14 AM Signed Patient calling asking for an order for full electric hospital bed. She said was discussing this during her appt yesterday. Her current one she can not get the height of the bed adjusted once she is in it, because it is crank style. Patient asking for the order to be faxed to [employer] fax number is [phone]. Not certain if bariatric style needs ordered. Pending order needs diagnosis. Please advise Josephine Hawthorne APRN.PERSONNEL DIRECTOR 06/27/2024 11:40 AM Signed ok, she did not know DME at time of visit. Liza Rucker LPN 06/27/2024 11:46 AM Signed Order faxed to [employer] to number below as requested Allergies As of Date: 06/26/2024 Noted Allergy Reaction ATIVAN (LORAZEPAM) 03/26/2012 4 - Hives NEOMYCIN 02/02/2018 9 - Itching Comments: Hives, itching VALIUM (DIAZEPAM) 11/28/2020 5 - Intolerance Comments: somnolence Date Reviewed: 06/25/2024 Reviewed by: Liza Rucker LPN - Fully Assessed Reason for Visit: Orders [681] Prescriptions as of 06/27/2024 - polyethylene glycol 3350 (MIRALAX) 17 gram/dose powder Take 17 g by mouth once daily. as needed for constipation. Dissolve dose in 4 - 8 ounces of liquid and take as directed. Take in the morning. - tiZANidine (ZANAFLEX) 4 mg tablet Take 1 tablet by mouth every 8 hours. - atorvastatin (LIPITOR) 10 mg tablet Take 1 tablet by mouth once daily. - DULoxetine (CYMBALTA) 30 mg capsule Take 1 capsule by mouth daily at bedtime. daily - DULoxetine (CYMBALTA) 60 mg capsule Take 1 capsule by mouth once daily. Take in the morning. - gabapentin (NEURONTIN) 800 mg tablet Take 1 tablet by mouth three times a day for 180 days. - hydrOXYzine pamoate (VISTARIL) 25 mg capsule Take 1 capsule by mouth daily at bedtime. daily - losartan (COZAAR) 50 mg tablet Take 1 tablet by mouth two times a day. - pantoprazole DR (PROTONIX) 40 mg tablet Take 1 tablet by mouth two times a day. - cholecalciferol (VITAMIN D3) 50 mcg (2,000 unit) tablet Take 1 tablet by mouth once daily. - melatonin 5 mg tablet Take 1 tablet by mouth daily at bedtime. - diclofenac XR (VOLTAREN-XR) 100 mg Tb24 TAKE 1 TABLET BY MOUTH DAILY WITH FOOD NEEDED FOR PAIN - gabapentin (NEURONTIN) 300 mg capsule Take 1 capsule by mouth two times a day for 180 days. - [employer] Power Wheelchair - amLODIPine (NORVASC) 10 mg tablet Take 1 tablet by mouth once daily. - diclofenac (VOLTAREN) 1 % topical gel Apply 4 g to affected area four times daily. FOR EXTERNAL USE ONLY APPLY TO: right knee Use provided dosing card to measure the ordered dose. - cloNIDine HCl (CATAPRES) 0.1 mg tablet Take 1 tablet by mouth twice daily. - acetaminophen (TYLENOL) 500 mg tablet Take 500 mg by mouth twice daily as needed for pain. - COMPOUNDED PRESCRIPTION BIPAP 1 liter bleed in 12/5 cm. RR 14 Replacement machine with heated humidity. CPAP mask and supplies. Use nightly. 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.20] Thyroid nodule [E04.1] 11/19/2020 Ventricular tachycardia, non-sustained (HCC) [I*11/19/2020 Spondylosis with myelopathy, 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*11/21/2020 Paronychia of right middle finger [L03.011] 11/23/2020 Fusion of spine of 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43.24] 11/25/2020 Acute postoperative pain [G89.18] 11/25/2020 Pseudogout of right knee [M11.261] 11/26/2020 Abnormal urinalysis [R82.90] 12/01/2020 Rash and nonspecific skin eruption on right thi*12/03/2020 Major depressive disorder, recurrent, mild (HCC*09/02/2022 Chronic obstructive pulmonary disease (HCC) [J4*11/09/2022 Encounter Status:Closed by JOSEPHINE HAWTHORNE on 06/27/24 Normal [facility] Comprehensive metabolic 2000 panelon 06-26-2024 Albumin [Mass/Vol] 4 g/dL 3.9 - 4.9 g/dL [facility] ALP [Catalytic activity/Vol] 116 U/L 34 - 123 U/L [facility] ALT [Catalytic activity/Vol] 11 U/L 7 - 38 U/L [facility] Anion gap [Moles/Vol] 8 mmol/L 8 - 15 mmol/L [facility] AST [Catalytic activity/Vol] 15 U/L 13 - 35 U/L [facility] Bilirubin [Mass/Vol] 0.2 mg/dL 0.2 - 1 .3 mg/dL [facility] Calcium [Mass/Vol] 9.3 mg/dL 8.5 - 10. 2 mg/dL [facility] Chloride [Moles/Vol] 104 mmol/L 98 - 10 7 mmol/L [facility] CO2 [Moles/Vol] 29 mmol/L 22 - 30 mmol/L [facility] Creatinine [Mass/Vol] 0.58 mg/dL 0.58 - 0.96 mg/dL [facility] GFR/1.73 sq M.predicted among non-blacks MDRD (S/P/Bld) [Vol rate/Area] 97 mL/min/{1.73_m2} - PINF [facility] Comment on above: Estimated Glomerular Filtration Rate (eGFR) is calculated using the 2020 CKD-EPI creatinine equation. This equation utilizes serum creatinine, sex, and age as parameters. The creatinine assay has traceable calibration to isotope dilution-mass spectrometry. Refer to KDIGO guidelines for clinical interpretation. In patients with unstable renal function, e.g. those with acute kidney injury, the eGFR may not accurately reflect actual GFR. Glucose [Mass/Vol] 126 mg/dL High 74 - 99 mg/dL [facility] Comment on above: The [place] Diabete s Association (ADA) provides guidance for cutoff values for fasting glucose and random glucose. The ADA defines fasting as no caloric intake for at least 8 hours. Fasting plasma glucose results between 100 to 125 mg/dL indicate increased risk for diabetes (prediabetes). Fasting plasma glucose results greater than or equal to 126 mg/dL meet the criteria for diagnosis of diabetes. In the absence of unequivocal hyperglycemia, results should be confirmed by repeat testing. In a patient with classic symptoms of hyperglycemia or hyperglycemic crisis, random plasma glucose results greater than or equal to 200 mg/dL meet the criteria for diagnosis of diabetes. Reference: Standards of Medical Care in Diabetes 2016, [place] Diabetes Association. Diabetes Care. 2016.39(Suppl 1). Interpretation and review of laboratory results Abnormal [facility] Potassium [Moles/Vol] 4.8 mmol/L 3.7 - 5.1 mmol/L [facility] Protein [Mass/Vol] 6.2 g/dL Low 6.3 - 8.0 g/dL [facility] Sodium [Moles/Vol] 141 mmol/L 136 - 144 mmol/L [facility] Urea nitrogen [Mass/Vol] 18 mg/dL 7 - 21 mg/dL [facility] LIPID PANEL, NONFASTINGon Cholesterol [Mass/Vol] 154 mg/dL NINF - 200 mg/dL [facility] Comment on above: <200 mg/dL, Desirabl e 200-239 mg/dL, Borderline high >239 mg/dL, High HDL Cholesterol, Nonfasting 48 mg/dL 39 - PINF mg/dL [facility] Comment on above: 40-59 mg/dL, Accepta ble >59 mg/dL, High: Negative risk factor for coronary heart disease <40 mg/dL, Low: Positive risk factor for coronary heart disease Interpretation and review of laboratory results Normal [facility] LDL Cholesterol Calculated, Nonfasting 92 mg/dL NINF - 100 mg/dL [facility] Comment on above: <100 mg/dL, Optimal 100-129 mg/dL, Near optimal/above optimal 130-159 mg/dL, Borderline high 160-189 mg/dL, High >189 mg/dL, Very high Secondary prevention optimal LDL Cholesterol levels are recommended to be <70 mg/dL LDL cholesterol is calculated using the Quick-NIH equation. LDL/HDL Ratio, Nonfasting 1.92 mg/dL NINF - 2.54 mg/dL [facility] Comment on above: Reference: 1. National Cholesterol Education Program ATP III Guideline At-A-Glance Quick Desk Reference: National Heart, Lung, and Blood [place]. National Institutes of Health. 2001: NIH Publication No. 01-3305. 2. An International Atherosclerosis Society position paper: global recommendations for the management of dyslipidemia: executive summary, Atherosclerosis. 2014: 232(2):410-413. Non HDL Cholesterol, Nonfasting 106 mg/dL NINF - 130 mg/dL [facility] Comment on above: <130 mg/dL, Optimal 130-159 mg/dL, Near optimal/above optimal 160-189 mg/dL, Borderline high 190-219 mg/dL, High >219 mg/dL, Very high Secondary prevention optimal non HDL Cholesterol levels are recommended to be <100 mg/dL Total Chol/HDL Ratio, Nonfasting 3.21 mg/dL NINF - 5.10 mg/dL [facility] Triglycerides, Nonfasting 70 mg/dL NINF - 150 mg/dL [facility] Comment on above: <150 mg/dL, Normal 150-199 mg/dL, Borderline high 200-499 mg/dL, High >499 mg/dL, Very high VLDL Cholesterol, Nonfasting 11 mg/dL NINF - 30 mg/dL [facility] No Panel Informationon 06-26 [facility] CBC W Auto Differential pane l (Bld)on 06-25-2024 Basophils (Bld) [#/Vol] 0.04 10*3/uL [facility] Basophils/100 WBC (Bld) 0.5 % [facility] Differential cell count method Nom (Bld) Auto [facility] Eosinophils (Bld) [#/Vol] 0.34 10*3/uL [facility] Eosinophils/100 WBC (Bld) 4.6 % [facility] Erythrocyte distribution width (RBC) [Ratio] 13.9 % 11.5 - 15.0 % [facility] Hematocrit (Bld) [Volume fraction] 40.8 % 36.0 - 46.0 % [facility] Hemoglobin (Bld) [Mass/Vol] 12.3 g/dL 11.5 - 15.5 g/dL [facility] Immature granulocytes (Bld) [#/Vol] 0.03 10*3/uL [facility] Immature granulocytes/100 WBC (Bld) 0.4 % [facility] Interpretation and review of laboratory results Abnormal [facility] Lymphocytes (Bld) [#/Vol] 1.28 10*3/uL [facility] Lymphocytes/100 WBC (Bld) 17.2 % [facility] MCH (RBC) [Entitic mass] 25.7 pg Low 26.0 - 34.0 pg [facility] MCHC (RBC) [Mass/Vol] 30.1 g/dL Low 30.5 - 36.0 g/dL [facility] MCV (RBC) [Entitic vol] 85.4 fL 80.0 - 100.0 fL [facility] Monocytes (Bld) [#/Vol] 0.47 10*3/uL [facility] Monocytes/100 WBC (Bld) 6.3 % [facility] Neutrophils (Bld) [#/Vol] 5.27 10*3/uL [facility] Neutrophils/100 WBC (Bld) 71 % [facility] Nucleated RBC (Bld) [#/Vol] [facility] Nucleated RBC/100 WBC (Bld) [Ratio] 0 % /100 WBC [facility] Platelet mean volume (Bld) [Entitic vol] 10.1 fL 9.0 - 12.7 fL [facility] Platelets (Bld) [#/Vol] 289 10*3/uL [facility] RBC (Bld) [#/Vol] 4.78 10*6/uL 3.90 - 5.2 0 m/uL [facility] WBC (Bld) [#/Vol] 7.43 10*3/uL [facility] Basophils (Bld) [#/Vol] 0.04 10*3/uL Normal <0.11 [facility] Comment on above: Order Comment: Speci men Type: BLOOD SPECIMENOrdering Facility: [facility] Address: [address] [place] [address] Performed By: #### 5 7021-8 ####[facility] LABCLIA [id number] [facility] [place] [address] [place] Basophils/100 WBC (Bld) 0.5 % Normal [facility] Comment on above: Order Comment: Speci men Type: BLOOD SPECIMENOrdering Facility: [facility] Address: [address] [place] [address] Performed By: #### 5 7021-8 ####[facility] LABCLIA [id number] [place] [address] [place] Differential cell count method Nom (Bld) Auto Normal [facility] Comment on above: Order Comment: Speci men Type: BLOOD SPECIMENOrdering Facility: [facility] Address: [address] [place] [address] Performed By: #### 5 7021-8 ####[facility] LABCLIA [id number] [place] [address] [place] Eosinophils (Bld) [#/Vol] 0.34 10*3/uL Normal <0.46 [facility] Comment on above: Order Comment: Speci men Type: BLOOD SPECIMENOrdering Facility: [facility] Address: [address] [place] [address] Performed By: #### 5 7021-8 ####[facility] LABCLIA [id number] [place] [address] [place] Eosinophils/100 WBC (Bld) 4.6 % Normal [facility] Comment on above: Order Comment: Speci men Type: BLOOD SPECIMENOrdering Facility: [facility] Address: [address] [place] [address] Performed By: #### 5 7021-8 ####[facility] LABCLIA [id number] [place] [address] [place] Erythrocyte distribution width (RBC) [Ratio] 13.9 % Normal 11.5-15.0 [facility] Comment on above: Order Comment: Speci men Type: BLOOD SPECIMENOrdering Facility: [facility] Address: [address] [place] [address] Performed By: #### 5 7021-8 ####[facility] LABIA [id number] [place] [address] [place] Hematocrit (Bld) [Volume fraction] 40.8 % Normal 36.0-46.0 [facility] Comment on above: Order Comment: Speci men Type: BLOOD SPECIMENOrdering Facility: [facility] Address: [address] [place] [address] Performed By: #### 5 7021-8 ####[facility] LABIA [id number] [place] [address] [place] Hemoglobin (Bld) [Mass/Vol] 12.3 g/dL Normal 11.5-15.5 [facility] Comment on above: Order Comment: Speci men Type: BLOOD SPECIMENOrdering Facility: [facility] Address: [address] [place] [address] Performed By: #### 5 7021-8 ####[facility] LABIA [id number] [place] [address] [place] Immature granulocytes (Bld) [#/Vol] 0.03 10*3/uL Normal <0.10 [facility] Comment on above: Order Comment: Speci men Type: BLOOD SPECIMENOrdering Facility: [facility] Address: [address] [place] [address] Performed By: #### 5 7021-8 ####[facility] LABIA [id number] [place] [address] [place] Immature granulocytes/100 WBC (Bld) 0.4 % Normal [facility] Comment on above: Order Comment: Speci men Type: BLOOD SPECIMENOrdering Facility: [facility] Address: [address] [place] [address] Performed By: #### 5 7021-8 ####[facility] LABCLIA [id number] [place] [address] [place] Lymphocytes (Bld) [#/Vol] 1.28 10*3/uL Normal 1.00-4.00 [facility] Comment on above: Order Comment: Speci men Type: BLOOD SPECIMENOrdering Facility: [facility] Address: [address] [place] [address] Performed By: #### 5 7021-8 ####[facility] LABCLIA [id number] [place] [address] [place] Lymphocytes/100 WBC (Bld) 17.2 % Normal [facility] Comment on above: Order Comment: Speci men Type: BLOOD SPECIMENOrdering Facility: [facility] Address: [address] [place] [address] Performed By: #### 5 7021-8 ####[facility] LABCLIA [id number] [place] [address] [place] MCH (RBC) [Entitic mass] 25.7 pg Low 26.0-34.0 [facility] Comment on above: Order Comment: Speci men Type: BLOOD SPECIMENOrdering Facility: [facility] Address: [address] [place] [address] Performed By: #### 5 7021-8 ####[facility] LABCLIA [id number] [place] [address] [place] MCHC (RBC) [Mass/Vol] 30.1 g/dL Low 30.5-36.0 [facility] Comment on above: Order Comment: Speci men Type: BLOOD SPECIMENOrdering Facility: [facility] Address: [address] [place] [address] Performed By: #### 5 7021-8 ####[facility] LABCLIA [id number] [address], [place] [address] [place] MCV (RBC) [Entitic vol] 85.4 fL Normal 80.0-100.0 [facility] Comment on above: Order Comment: Speci men Type: BLOOD SPECIMENOrdering Facility: [facility] Address: [address] [place] [address] Performed By: #### 5 7021-8 ####[facility] LABCLIA [id number] [address], [place] [id number] [place] Monocytes (Bld) [#/Vol] 0.47 10*3/uL Normal <0.87 [facility] Comment on above: Order Comment: Speci men Type: BLOOD SPECIMENOrdering Facility: [facility] Address: [address] [place] [address] Performed By: #### 5 7021-8 ####[facility] LABCLIA [id number] [address], [place] [address] [place] Monocytes/100 WBC (Bld) 6.3 % Normal [facility] Comment on above: Order Comment: Speci men Type: BLOOD SPECIMENOrdering Facility: [facility] Address: [address] [place] [address] Performed By: #### 5 7021-8 ####[facility] LABCLIA [id number] [address], [facility]95 [place] Neutrophils (Bld) [#/Vol] 5.27 10*3/uL Normal 1.45-7.50 [facility] Comment on above: Order Comment: Speci men Type: BLOOD SPECIMENOrdering Facility: [facility] Address: [address] [place] [address] Performed By: #### 5 7021-8 ####[facility] LABCLIA [id number] [address], [facility]95 [place] Neutrophils/100 WBC (Bld) 71.0 % Normal [facility] Comment on above: Order Comment: Speci men Type: BLOOD SPECIMENOrdering Facility: [facility] Address: [address] [place] [address] Performed By: #### 5 7021-8 ####[facility] LABCLIA [id number] [place] [address] [place] Nucleated RBC (Bld) [#/Vol] 10*3/uL Normal <0.01 [facility] Comment on above: Order Comment: Speci men Type: BLOOD SPECIMENOrdering Facility: [facility] Address: [address] [place] [address] Performed By: #### 5 7021-8 ####[facility] LABCLIA [id number] [place] [address] [place] Nucleated RBC/100 WBC (Bld) [Ratio] 0.0 /100 WBC Normal [facility] Comment on above: Order Comment: Speci men Type: BLOOD SPECIMENOrdering Facility: [facility] Address: [address] [place] [address] Performed By: #### 5 7021-8 ####[facility] LABCLIA [id number] [place] [address] [place] Platelet mean volume (Bld) [Entitic vol] 10.1 fL Normal 9.0-12.7 [facility] Comment on above: Order Comment: Speci men Type: BLOOD SPECIMENOrdering Facility: [facility] Address: [address] [place] [address] Performed By: #### 5 7021-8 ####[facility] LABCLIA [id number] [place] [address] [place] Platelets (Bld) [#/Vol] 289 10*3/uL Normal 150-400 [facility] Comment on above: Order Comment: Speci men Type: BLOOD SPECIMENOrdering Facility: [facility] Address: [address] [place] [address] Performed By: #### 5 7021-8 ####[facility] [id number] [place] [address] [place] RBC (Bld) [#/Vol] 4.78 10*6/uL Normal 3.90-5.20 [facility] Comment on above: Order Comment: Speci men Type: BLOOD SPECIMENOrdering Facility: [facility] Address: [address] [place] [address] Performed By: #### 5 7021-8 ####[facility] [id number] [place] [id number] [place] WBC (Bld) [#/Vol] 7.43 10*3/uL Normal 3.70-11.00 [facility] Comment on above: Order Comment: Speci men Type: BLOOD SPECIMENOrdering Facility: [facility] Address: [address] [place] [address] Performed By: #### 5 7021-8 ####[facility] [id number] [place] [address] [place] CNOVon 06-25-2024 CNOV Office Visit (INTMWS ) -- SONIA KARIMI ([id number]) 1955 F Date Time Provider Department 06/25/24 11:00 AM JOSEPHINE HAWTHORNE INTMWS During your visit today, we recorded the following information about you: Pulse Respiration Blood pressure 80/minute 16/minute 134/74 Josephine Hawthorne APRN.PERSONNEL DIRECTOR 06/27/2024 11:39 AM Roberto Carlos Valencia SUBJECTIVE: Anxiety Screening Never done RSV Vaccine(1 - Risk 60-74 years 1-dose series) Never done Mammogram Screening due on 11/22/2017 Bone Density Screening Never done Covid-19 Vaccine( season) due on 10/15/2023 Annual PCP Team Chronic Disease Visit due on 11/10/2023 Advance Directive Discussion due on 02/14/2024 Colorectal Cancer Screening due on 06/27/2024 HPI Sonia Karimi is a 68 year old female. 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 ACTIVE PROBLEM LIST Essential Hypertension Hyperlipidemia Osteoarthritis of Both Knees Iris Treated With Bipap Class 3 severe obesity due to excess calories without serious comorbidity with body mass index (BMI) of 45.0 to 49.9 in adult Cervical Myopathy Cervical Spondylosis With Myelopathy History of Cervical Polypectomy Paraparesis (Hcc) Thyroid Nodule Ventricular Tachycardia, Non-Sustained (Hcc) Spondylosis With Myelopathy, Thoracic Region Paronychia of Right Middle Finger Fusion of Spine of Thoracic Region Acute Postoperative Pain Pseudogout of Right Knee Abnormal Urinalysis Rash and nonspecific skin eruption on right thigh Major Depressive Disorder, Recurrent, Mild Chronic Obstructive Pulmonary Disease (Hcc) Presents today for a routine visit, in need of an adjustable electric bed as she can not get in and out of her bed currently. Muscle Spasms: - Experiencing muscle spasms in bilateral lower extremities, from knees down. - Current muscle relaxant is not providing adequate relief. - Previously used tizanidine with better results; requests to switch back. - Taking current muscle relaxant every 8 hours, not PRN. Mobility Issues: Has paraparesis - Primarily uses a wheelchair; unable to stand for transfers. - Utilizes a transfer board; has difficulty positioning the board to get out of bed. - Right leg is paralyzed and has a history of pseudogout; hip is still sore. - Weakness in left leg and arthritis in both knees. - Engages in exercises to put weight on feet and lift buttocks off the chair. - Has not walked since December of the previous year. - Can stand with assistance from a machine but not independently. Does not have this machine available to her at home. I Hospital Bed Request: - Currently has a manual hospital bed with a crank at the foot, making it impossible to adjust once in bed. - Requests an electric hospital bed with adjustable height to facilitate independence in transfers. - Insurance requires a [id number] meeting and an order for the bed. - Has assistance at home in the mornings and evenings but not during the day; struggles with getting out of bed independently. HPI excerpted from previous visit 04/18/2024:Presents for SNF follow-up visit. Outside records received from [facility] indicate admission on October 06, 2023 through April 12, 2024. She was transferred to [facility] for therapy following L4-L5 laminectomy and discectomy with Dr. Curry orthopedics. She returned to the hospital same day due to a problem with her cat with a fall noting left arm pain and left humerus fracture. She also had a fall in December 2023. March 12, 2024 she lost control an electric wheelchair and hit right great toe. She underwent therapy with improvement of her status. She was discharged to home with slide board transfers from bed to chair chair to bed and otherwise using a mechanical lift. She was discharged with [facility] home health care PT and OT. She was discharged on a regular diet regular consistency and thin liquids. Today notes that she was seen at [facility] for about 10 months. Notes food was not good at [facility], better now since home. Today reports difficulty with transfers since discharge. She is currently using briefs because she cannot manage the toilet at home, having her toilet changed next week as a plan. She wonders if brace to be covered by her insurance, does not know her DME. She also uses washable underpads, wonders if these would also be covered by her DME. Stopped senna, now has had BM daily since discharge home. Using miralax currently. She notes [facility] has not yet come out, they will be coming out next week. She has some daily morning assistance Monday to Monday otherwise home alone. Has had to call the squad for transfer once since her discharge home. Notes pain is controlled with current treatments. No lower extremities edema. Electric WC used all the time, has hospital bed, can not transfer to her usual bed. Review of (more content not included)... Normal [facility] Comprehensive metabolic 2000 panelon 06-25-2024 Albumin [Mass/Vol] 4.0 g/dL Normal 3.9-4.[address] [facility] Comment on above: Order Comment: Speci men Type: BLOOD SPECIMENOrdering Facility: [facility] Address: [address] [place], [place] [address] Performed By: #### L IPNF, 47673-6 ####[facility] LABCLIA [id number] [address] [place] [address] [place] ALP [Catalytic activity/Vol] 116 U/L Normal 34-123 [facility] Comment on above: Order Comment: Speci men Type: BLOOD SPECIMENOrdering Facility: [facility] Address: [address] [place] [address] Performed By: #### L IPNF, 01448-1 ####[facility] LABCLIA [id number] [place] [id number] [place] ALT [Catalytic activity/Vol] 11 U/L Normal 7-38 [facility] Comment on above: Order Comment: Speci men Type: BLOOD SPECIMENOrdering Facility: [facility] Address: [address] [place] [address] Performed By: #### L IPNF, 73455-5 ####[facility] LABCLIA [id number] [address] [address] [place] Anion gap [Moles/Vol] 8 mmol/L Normal 8-15 [facility] Comment on above: Order Comment: Speci men Type: BLOOD SPECIMENOrdering Facility: [facility] Address: [address] [place], [place] [address] Performed By: #### L IPNF, 91709-4 ####[facility] LABCLIA [id number] [address] [address] [place] AST [Catalytic activity/Vol] 15 U/L Normal 13-35 [facility] Comment on above: Order Comment: Speci men Type: BLOOD SPECIMENOrdering Facility: [facility] Address: [address] [place], [place] [address] Performed By: #### L IPNF, 14442-3 ####[facility] LABCLIA [id number] [address] [place] [address] [place] Bilirubin [Mass/Vol] 0.2 mg/dL Normal 0.2-1.3 [facility] Comment on above: Order Comment: Speci men Type: BLOOD SPECIMENOrdering Facility: [facility] Address: [address] [place] [address] Performed By: #### L IPNF, 39540-1 ####[facility] LABCLIA [id number] [place] [id number] [place] Calcium [Mass/Vol] 9.3 mg/dL Normal 8.5-10.[address] [facility] Comment on above: Order Comment: Speci men Type: BLOOD SPECIMENOrdering Facility: [facility] Address: [address] [place] [address] Performed By: #### L IPNF, 73230-5 ####[facility] LABCLIA [id number] [place] [address] [place] Chloride [Moles/Vol] 104 mmol/L Normal 98-107 [facility] Comment on above: Order Comment: Speci men Type: BLOOD SPECIMENOrdering Facility: [facility] Address: [address] [place] [address] Performed By: #### L IPNF, 77805-4 ####[facility] LABCLIA [id number] [place] [id number] [place] CO2 [Moles/Vol] 29 mmol/L Normal 22-30 [facility] Comment on above: Order Comment: Speci men Type: BLOOD SPECIMENOrdering Facility: [facility] Address: [address] [place], [place] [address] Performed By: #### L IPNF, 77455-0 ####[facility] LABCLIA [id number] [place] [id number] [place] Creatinine [Mass/Vol] 0.58 mg/dL Normal 0.58-0.96 [facility] Comment on above: Order Comment: Speci men Type: BLOOD SPECIMENOrdering Facility: [facility] Address: [address] [place] [address] Performed By: #### L IP, 87774-1 ####[facility] LABIA [id number] [place] [address] [place] Creatinine and Glomerular filtration rate.predicted panel (S/P/Bld) 97 mL/min/1.73m??? Normal >=60 [facility] Comment on above: Order Comment: Stephanie lanier Type: BLOOD SPECIMENOrdering Facility: [facility] Address: [address] [place] [address] Result Comment: Tali mated Glomerular Filtration Rate (eGFR) is calculated using the 2020 CKD-EPI creatinine equation. This equation utilizes serum creatinine, sex, and age as parameters. The creatinine assay has traceable calibration to isotope dilution-mass spectrometry. Refer to KDIGO guidelines for clinical interpretation. In patients with unstable renal function, e.g. those with acute kidney injury, the eGFR may not accurately reflect actual GFR. Performed By: #### L IP, 80988-4 ####[facility] LABIA [id number] [place] [address] [place] Glucose [Mass/Vol] 126 mg/dL High 74-[address] [facility] Comment on above: Order Comment: Stephanie lanier Type: BLOOD SPECIMENOrdering Facility: [facility] Address: [address] [place] [address] Result Comment: The [place] Diabetes Association (ADA) provides guidance for cutoff values for fasting glucose and random glucose. The ADA defines fasting as no caloric intake for at least 8 hours. Fasting plasma glucose results between 100 to 125 mg/dL indicate increased risk for diabetes (prediabetes). Fasting plasma glucose results greater than or equal to 126 mg/dL meet the criteria for diagnosis of diabetes. In the absence of unequivocal hyperglycemia, results should be confirmed by repeat testing. In a patient with classic symptoms of hyperglycemia or hyperglycemic crisis, random plasma glucose results greater than or equal to 200 mg/dL meet the criteria for diagnosis of diabetes. Reference: Standards of Medical Care in Diabetes 2016, [place] Diabetes Association. Diabetes Care. 2016.39(Suppl 1). Performed By: #### L IPNF, 71606-2 ####[facility] LABCLIA [id number] [address] [address] [place] Potassium [Moles/Vol] 4.8 mmol/L Normal 3.7-5.1 [facility] Comment on above: Order Comment: Speci men Type: BLOOD SPECIMENOrdering Facility: [facility] Address: [address] [place] [address] Performed By: #### L IPNF, 37793-3 ####[facility] LABCLIA [id number] [place] [id number] [place] Protein [Mass/Vol] 6.2 g/dL Low 6.3-8.[address] [facility] Comment on above: Order Comment: Speci men Type: BLOOD SPECIMENOrdering Facility: [facility] Address: [address] [place] [address] Performed By: #### L IPNF, 18582-4 ####[facility] LABCLIA [id number] [address] [address] [place] Sodium [Moles/Vol] 141 mmol/L Normal 136-[address] [facility] Comment on above: Order Comment: Speci men Type: BLOOD SPECIMENOrdering Facility: [facility] Address: [address] [place] [address] Performed By: #### L IPNF, 21687-0 ####[facility] LABCLIA [id number] [address] [address] [place] Urea nitrogen [Mass/Vol] 18 mg/dL Normal 7-21 [facility] Comment on above: Order Comment: Speci men Type: BLOOD SPECIMENOrdering Facility: [facility] Address: [address] [place], [place] [address] Performed By: #### L IPNF, 43123-5 ####[facility] LABCLIA [id number] [place] [address] LIPID PANEL, NONFASTINGon Cholesterol [Mass/Vol] 154 mg/dL Normal <200 [facility] Comment on above: Order Comment: Speci men Type: BLOOD SPECIMENOrdering Facility: [facility] Address: [address] [place] [address] Result Comment: <200 mg/dL, Desirable 200-239 mg/dL, Borderline high >239 mg/dL, High Performed By: #### L BENNETT, 16717-3 ####[facility] LABCLIA [id number] [address] HDL CHOLESTEROL, NF 48 mg/dL Normal >39 [facility] Comment on above: Order Comment: Speci men Type: BLOOD SPECIMENOrdering Facility: [facility] Address: [address] [place] [address] Result Comment: 40-5 9 mg/dL, Acceptable >59 mg/dL, High: Negative risk factor for coronary heart disease <40 mg/dL, Low: Positive risk factor for coronary heart disease Performed By: #### L BENNETT, 63242-0 ####[facility] LABCLIA [id number] [address] LDL CHOLESTEROL CALCULATED, NF 92 mg/dL Normal <100 [facility] Comment on above: Order Comment: Speci men Type: BLOOD SPECIMENOrdering Facility: [facility] Address: [address] [place] [address] Result Comment: <100 mg/dL, Optimal 100-129 mg/dL, Near optimal/above optimal 130-159 mg/dL, Borderline high 160-189 mg/dL, High >189 mg/dL, Very high Secondary prevention optimal LDL Cholesterol levels are recommended to be <70 mg/dL LDL cholesterol is calculated using the Quick-NIH equation. Performed By: #### L IPLON, 01290-5 ####[facility] LABCLIA [id number] [address] [place] [address] [facility] LDL/HDL RATIO, NF 1.92 mg/dL Normal <2.54 [facility] Comment on above: Order Comment: Speci men Type: BLOOD SPECIMENOrdering Facility: [facility] Address: [address] [place] [address] Result Comment: Magen ortiz: 1. National Cholesterol Education Program ATP III Guideline At-A-Glance Quick Desk Reference: National Heart, Lung, and Blood [place]. National Institutes of Health. 2001: NIH Publication No. 01-3305. 2. An International Atherosclerosis Society position paper: global recommendations for the management of dyslipidemia: executive summary, Atherosclerosis. 2014: 232(2):410-413. Performed By: #### L IPNF, ####[facility] LABCLIA [id number] [address] [place] NON HDL CHOL, NF 106 mg/dL Normal <[address] [facility] Comment on above: Order Comment: Speci men Type: BLOOD SPECIMENOrdering Facility: [facility] Address: [address] [place] [address] Result Comment: <130 mg/dL, Optimal 130-159 mg/dL, Near optimal/above optimal 160-189 mg/dL, Borderline high 190-219 mg/dL, High >219 mg/dL, Very high Secondary prevention optimal non HDL Cholesterol levels are recommended to be <100 mg/dL Performed By: #### L IPNF, ####[facility] LABCLIA [id number] [address] [place] T CHOL/HDL RATIO NF 3.21 mg/dL Normal <5.10 [facility] Comment on above: Order Comment: Speci men Type: BLOOD SPECIMENOrdering Facility: [facility] Address: [address] [place] [address] Performed By: #### L IPNF, ####[facility] LABCLIA [id number] [place] [address] [place] TRIGLYCERIDES, NF 70 mg/dL Normal <150 [facility] Comment on above: Order Comment: Speci men Type: BLOOD SPECIMENOrdering Facility: [facility] Address: [address] [place] [address] Result Comment: <150 mg/dL, Normal 150-199 mg/dL, Borderline high 200-499 mg/dL, High >499 mg/dL, Very high Performed By: #### L IPNF, 33883-3 ####[facility] LABCLIA [id number] [place] [address] [place] VLDL CHOLESTEROL, NF 11 mg/dL Normal <30 [facility] Comment on above: Order Comment: Speci men Type: BLOOD SPECIMENOrdering Facility: [facility] Address: [address] [place] [address] Performed By: #### L IPNF, 55588-4 ####[facility] LABCLIA [id number] [address] OF [facility] 06-17-2024 [facility] Telephone (INTMWS) -- SONIA KARIMI ([id number]) 1955 F Date Time Provider Department 06/17/24 MELISSA MUHAMMAD INTWS During your visit today, we recorded the following information about you: Miriam Gonzales RN 06/17/2024 11:19 AM Signed Itz with [facility] calling to ask for verbal order to approve re certification of pt's Physical Therapy plan of care. Pt's plan of care to be extended for one time per week for 5 more weeks for transfers. Please call Itz back with approval of verbal order at [phone] PRESTON Lopez Terri, ROSALEE.PERSONNEL DIRECTOR 06/17/2024 12:55 PM Signed Liza Owens LPN 06/17/2024 1:48 PM Signed No answer. Left providers message and ask he call the office with any questions or concerns Allergies As of Date: 06/17/2024 Noted Allergy Reaction ATIVAN (LORAZEPAM) 03/26/2012 4 - Hives NEOMYCIN 02/02/2018 9 - Itching Comments: Hives, itching VALIUM (DIAZEPAM) 11/28/2020 5 - Intolerance Comments: somnolence Date Reviewed: 04/18/2024 Reviewed by: Josephine Hawthorne APRN.PERSONNEL DIRECTOR - Fully Assessed Reason for Visit: Home Health Physical Therapy Update [Other] Prescriptions as of 06/17/2024 - methocarbamol (ROBAXIN) 750 mg tablet Take 1 tablet by mouth every 8 hours as needed (Muscle spasms). CAUTION: May cause drowsiness. - atorvastatin (LIPITOR) 10 mg tablet Take 1 tablet by mouth once daily. - DULoxetine (CYMBALTA) 30 mg capsule Take 1 capsule by mouth daily at bedtime. daily - DULoxetine (CYMBALTA) 60 mg capsule Take 1 capsule by mouth once daily. Take in the morning. - gabapentin (NEURONTIN) 800 mg tablet Take 1 tablet by mouth three times a day for 180 days. - hydrOXYzine pamoate (VISTARIL) 25 mg capsule Take 1 capsule by mouth daily at bedtime. daily - losartan (COZAAR) 50 mg tablet Take 1 tablet by mouth two times a day. - pantoprazole DR (PROTONIX) 40 mg tablet Take 1 tablet by mouth two times a day. - senna-docusate (SENNA-S) 8.6-50 mg per tablet Take 2 tablets by mouth two times a day. for constipation - polyethylene glycol 3350 (MIRALAX) 17 gram/dose powder Take 17 g by mouth once daily. as needed for constipation. Dissolve dose in 4 - 8 ounces of liquid and take as directed. Take in the morning. - cholecalciferol (VITAMIN D3) 50 mcg (2,000 unit) tablet Take 1 tablet by mouth once daily. - melatonin 5 mg tablet Take 1 tablet by mouth daily at bedtime. - docusate sodium (COLACE) 100 mg capsule Take 1 capsule by mouth two times a day as needed for constipation. Take this to avoid constipation with oxycodone use - diclofenac XR (VOLTAREN-XR) 100 mg Tb24 TAKE 1 TABLET BY MOUTH DAILY WITH FOOD NEEDED FOR PAIN - gabapentin (NEURONTIN) 300 mg capsule Take 1 capsule by mouth two times a day for 180 days. - Miscellaneous Medical Supply Power Wheelchair - amLODIPine (NORVASC) 10 mg tablet Take 1 tablet by mouth once daily. - diclofenac (VOLTAREN) 1 % topical gel Apply 4 g to affected area four times daily. FOR EXTERNAL USE ONLY APPLY TO: right knee Use provided dosing card to measure the ordered dose. - cloNIDine HCl (CATAPRES) 0.1 mg tablet Take 1 tablet by mouth twice daily. - acetaminophen (TYLENOL) 500 mg tablet Take 500 mg by mouth twice daily as needed for pain. - COMPOUNDED PRESCRIPTION BIPAP 1 liter bleed in 12/5 cm. RR 14 Replacement machine with heated humidity. CPAP mask and supplies. Use nightly. Problem List As Of Date 06/17/2024 Noted Resolved Essential hypertension [I10] 12/15/2014 Cervical polyp [N84.1] 12/15/2014 11/18/2019 Hyperlipidemia [E78.5] 12/15/2014 Osteoarthritis of both knees [M17.0] 12/15/2014 IRIS treated with BiPAP [G47.33] 12/15/2014 Class 3 severe obesity due to excess calories w*06/02/2017 Cervical myopathy [G72.9] 01/30/2018 Cervical spondylosis with myelopathy [M47.12] 01/30/2018 History of cervical polypectomy [Z98.890, Z87.4*11/18/2019 Paraparesis (HCC) [G82.20] Thyroid nodule [E04.1] 11/19/2020 Ventricular tachycardia, non-sustained (HCC) [I*11/19/2020 Spondylosis with myelopathy, 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*11/21/2020 Paronychia of right middle finger [L03.011] 11/23/2020 Fusion of spine of 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43.24] 11/25/2020 Acute postoperative pain [G89.18] 11/25/2020 Pseudogout of right knee [M11.261] 11/26/2020 Abnormal urinalysis [R82.90] 12/01/2020 Rash and nonspecific skin eruption on right thi*12/03/2020 Major depressive disorder, recurrent, mild (HCC*09/02/2022 Chronic obstructive pulmonary disease (HCC) [J4*11/09/2022 Encounter Status:Closed by LIZA RUCKER on 06/17/24 [facility] [place] 05-10-2024 CNPN Telephone (INTMWS) -- SONIA KARIMI ([id number]) 1955 F Date Time Provider Department 05/10/24 JOSEPHINE HAWTHORNE INTMWS During your visit today, we recorded the following information about you: Josephine Hawthorne, ROSALEE.PERSONNEL DIRECTOR 05/10/2024 1:35 PM Signed We received a fax from [facility] for Sonia Karimi requesting a prescription for therapy and most recent chart notes as Sonia Karimi requests to be seen by [facility] for evaluation for modifications to her current power wheelchair. She has paraparesis and has chronically been in a power wheelchair which she is currently using as far as I am aware. I am not sure what modifications she is requesting. Not sure exactly what [facility] is looking for from us regarding power wheelchair use. May need to question this further with them. Is she in need of a wheelchair evaluation with PT to determine needs or any adjustments needed for her chair? [facility] or pt. may have answer to this. If needed can do a video visit with me as I saw her for hospital /SNF discharge, not regarding her wheelchair use/needs. Liza Rucker LPN 05/10/2024 1:58 PM Signed No answer. Left message for Brock Patel of [facility] to call office and ask to speak to a nurse regarding form we received. Eun Linton, RN 05/10/2024 2:02 PM Signed Esteban from [facility] calls and states that patient had contacted them requesting modification to her powered wheelchair. [facility] took care of her when she got present wheel chair. Patient has been having issues with wheel chair and is needing modification to wheel chair. [facility] is requesting order so that their physical therapy can go out to patient to see what modifications are needed for wheel chair. PRESTON Alston Terri, APRN.PERSONNEL DIRECTOR 05/10/2024 2:19 PM Signed So need a PT order? I can place that. Please send to them. Liza Rucker LPN 05/10/2024 3:52 PM Signed Office note and prescription faxed back to [facility]. Allergies As of Date: 05/10/2024 Noted Allergy Reaction ATIVAN (LORAZEPAM) 03/26/2012 4 - Hives NEOMYCIN 02/02/2018 9 - Itching Comments: Hives, itching VALIUM (DIAZEPAM) 11/28/2020 5 - Intolerance Comments: somnolence Date Reviewed: 04/18/2024 Reviewed by: Josephine Hawthorne APRN.PERSONNEL DIRECTOR - Fully Assessed Primary Visit Diagnosis:Paraparesis (HCC) [G82.20] Other Visit Diagnoses:History of fall [Z91.81] History of humerus fracture [Z87.81] S/P laminectomy [Z98.890] S/P lumbar discectomy [Z98.890] Order(s):CONSULT TO PT/OT WHEELCHAIR EVALUATION [1202144] Order #: [id number]: 1 FUTURE Prescriptions as of 05/10/2024 - methocarbamol (ROBAXIN) 750 mg tablet Take 1 tablet by mouth every 8 hours as needed (Muscle spasms). CAUTION: May cause drowsiness. - atorvastatin (LIPITOR) 10 mg tablet Take 1 tablet by mouth once daily. - DULoxetine (CYMBALTA) 30 mg capsule Take 1 capsule by mouth daily at bedtime. daily - DULoxetine (CYMBALTA) 60 mg capsule Take 1 capsule by mouth once daily. Take in the morning. - gabapentin (NEURONTIN) 800 mg tablet Take 1 tablet by mouth three times a day for 180 days. - hydrOXYzine pamoate (VISTARIL) 25 mg capsule Take 1 capsule by mouth daily at bedtime. daily - losartan (COZAAR) 50 mg tablet Take 1 tablet by mouth two times a day. - pantoprazole DR (PROTONIX) 40 mg tablet Take 1 tablet by mouth two times a day. - senna-docusate (SENNA-S) 8.6-50 mg per tablet Take 2 tablets by mouth two times a day. for constipation - polyethylene glycol 3350 (MIRALAX) 17 gram/dose powder Take 17 g by mouth once daily. as needed for constipation. Dissolve dose in 4 - 8 ounces of liquid and take as directed. Take in the morning. - cholecalciferol (VITAMIN D3) 50 mcg (2,000 unit) tablet Take 1 tablet by mouth once daily. - melatonin 5 mg tablet Take 1 tablet by mouth daily at bedtime. - docusate sodium (COLACE) 100 mg capsule Take 1 capsule by mouth two times a day as needed for constipation. Take this to avoid constipation with oxycodone use - diclofenac XR (VOLTAREN-XR) 100 mg Tb24 TAKE 1 TABLET BY MOUTH DAILY WITH FOOD NEEDED FOR PAIN - gabapentin (NEURONTIN) 300 mg capsule Take 1 capsule by mouth two times a day for 180 days. - [employer] Power Wheelchair - amLODIPine (NORVASC) 10 mg tablet Take 1 tablet by mouth once daily. - diclofenac (VOLTAREN) 1 % topical gel Apply 4 g to affected area four times daily. FOR EXTERNAL USE ONLY APPLY TO: right knee Use provided dosing card to measure the ordered dose. - cloNIDine HCl (CATAPRES) 0.1 mg tablet Take 1 tablet by mouth twice daily. - acetaminophen (TYLENOL) 500 mg tablet Take 500 mg by mouth twice daily as needed for pain. - COMPOUNDED PRESCRIPTION BIPAP 1 liter bleed in 12/5 cm. RR 14 Replacement machine with heated humidity. CPAP mask and supplies. Use nightly. Problem List As Of Date 05/10/2024 Noted R (more content not included)... Normal [facility] [place] 04-26-2024 GERALDO Telephone (INTMWS) -- SONIA KARIMI ([id number]) 1955 F Date Time Provider Department 04/26/24 MELISSA MUHAMMAD INTMariahWS During your visit today, we recorded the following information about you: Jose Miguel Resendiz RN 04/26/2024 9:54 AM Signed Veena nurse with [facility] calls to request a copy of most recent OV notes for continuity of care. Faxed to [phone] per request. PRESTON Rinaldi Stephanie, RN 05/01/2024 11:34 AM Signed Veena RN from [facility] calls requesting last office visit note to be faxed to [phone]. Faxed as requested. Eun Linton RN Allergies As of Date: 04/26/2024 Noted Allergy Reaction ATIVAN (LORAZEPAM) 03/26/2012 4 - Hives NEOMYCIN 02/02/2018 9 - Itching Comments: Hives, itching VALIUM (DIAZEPAM) 11/28/2020 5 - Intolerance Comments: somnolence Date Reviewed: 04/18/2024 Reviewed by: Josephine Hawthorne APRN.PERSONNEL DIRECTOR - Fully Assessed Reason for Visit: Release Of Medical Records [2017] Prescriptions as of 05/01/2024 - atorvastatin (LIPITOR) 10 mg tablet Take 1 tablet by mouth once daily. - DULoxetine (CYMBALTA) 30 mg capsule Take 1 capsule by mouth daily at bedtime. daily - DULoxetine (CYMBALTA) 60 mg capsule Take 1 capsule by mouth once daily. Take in the morning. - gabapentin (NEURONTIN) 800 mg tablet Take 1 tablet by mouth three times a day for 180 days. - hydrOXYzine pamoate (VISTARIL) 25 mg capsule Take 1 capsule by mouth daily at bedtime. daily - losartan (COZAAR) 50 mg tablet Take 1 tablet by mouth two times a day. - pantoprazole DR (PROTONIX) 40 mg tablet Take 1 tablet by mouth two times a day. - senna-docusate (SENNA-S) 8.6-50 mg per tablet Take 2 tablets by mouth two times a day. for constipation - tiZANidine (ZANAFLEX) 4 mg tablet Take 1 tablet by mouth every 8 hours as needed (muscle spasms). - polyethylene glycol 3350 (MIRALAX) 17 gram/dose powder Take 17 g by mouth once daily. as needed for constipation. Dissolve dose in 4 - 8 ounces of liquid and take as directed. Take in the morning. - cholecalciferol (VITAMIN D3) 50 mcg (2,000 unit) tablet Take 1 tablet by mouth once daily. - melatonin 5 mg tablet Take 1 tablet by mouth daily at bedtime. - docusate sodium (COLACE) 100 mg capsule Take 1 capsule by mouth two times a day as needed for constipation. Take this to avoid constipation with oxycodone use - diclofenac XR (VOLTAREN-XR) 100 mg Tb24 TAKE 1 TABLET BY MOUTH DAILY WITH FOOD NEEDED FOR PAIN - gabapentin (NEURONTIN) 300 mg capsule Take 1 capsule by mouth two times a day for 180 days. - [employer] Power Wheelchair - amLODIPine (NORVASC) 10 mg tablet Take 1 tablet by mouth once daily. - diclofenac (VOLTAREN) 1 % topical gel Apply 4 g to affected area four times daily. FOR EXTERNAL USE ONLY APPLY TO: right knee Use provided dosing card to measure the ordered dose. - methocarbamol (ROBAXIN) 750 mg tablet Take 1 tablet by mouth every 8 hours as needed (Muscle spasms). CAUTION: May cause drowsiness. - cloNIDine HCl (CATAPRES) 0.1 mg tablet Take 1 tablet by mouth twice daily. - acetaminophen (TYLENOL) 500 mg tablet Take 500 mg by mouth twice daily as needed for pain. - COMPOUNDED PRESCRIPTION BIPAP 1 liter bleed in 12/5 cm. RR 14 Replacement machine with heated humidity. CPAP mask and supplies. Use nightly. Problem List As Of Date 04/26/2024 Noted Resolved Essential hypertension [I10] 12/15/2014 Cervical polyp [N84.1] 12/15/2014 11/18/2019 Hyperlipidemia [E78.5] 12/15/2014 Osteoarthritis of both knees [M17.0] 12/15/2014 IRIS treated with BiPAP [G47.33] 12/15/2014 Class 3 severe obesity due to excess calories w*06/02/2017 Cervical myopathy [G72.9] 01/30/2018 Cervical spondylosis with myelopathy [M47.12] 01/30/2018 History of cervical polypectomy [Z98.890, Z87.4*11/18/2019 Paraparesis (HCC) [G82.20] Thyroid nodule [E04.1] 11/19/2020 Ventricular tachycardia, non-sustained (HCC) [I*11/19/2020 Spondylosis with myelopathy, 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*11/21/2020 Paronychia of right middle finger [L03.011] 11/23/2020 Fusion of spine of 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43.24] 11/25/2020 Acute postoperative pain [G89.18] 11/25/2020 Pseudogout of right knee [M11.261] 11/26/2020 Abnormal urinalysis [R82.90] 12/01/2020 Rash and nonspecific skin eruption on right thi*12/03/2020 Major depressive disorder, recurrent, mild (HCC*09/02/2022 Chronic obstructive pulmonary disease (HCC) [J4*11/09/2022 Encounter Status:Closed by JOSE MIGUEL RESENDIZ on 04/26/24 [facility] CNPNon 04-25-2024 CNPN Telephone (INTMWS) -- SONIA KARIMI ([id number]) 1955 F Date Time Provider Department 04/25/24 MELISSA MUHAMMAD INTWS During your visit today, we recorded the following information about you: Nimesh Trujillo LPN 04/25/2024 3:19 PM Signed Reina from [facility] OT calling would like to d/c home health aide order for bath. Working on having patient do her bathing herself. Melissa Muhammad MD 04/26/2024 1:21 PM Signed June d/c OT as requested Ta Hunt LPN 04/26/2024 2:33 PM Signed Detailed message left for Reina to discontinue OT. Eun Linton, RN 04/26/2024 3:39 PM Signed Reina calling back and states that she was wanting home health aide to be discontinued. OT is going to continue to see patient. PRESTON Alston Liza D, MD 04/27/2024 3:27 PM Signed Sorry --misread the request Continue OT and cancel HH Aide Miguel Masterson RN 04/29/2024 12:39 PM Signed Called and left a detailed voicemail notifying Reina OT from [facility] of providers message. Clinic phone number was left in case she had any questions. Miguel Masterson RN Allergies As of Date: 04/25/2024 Noted Allergy Reaction ATIVAN (LORAZEPAM) 03/26/2012 4 - Hives NEOMYCIN 02/02/2018 9 - Itching Comments: Hives, itching VALIUM (DIAZEPAM) 11/28/2020 5 - Intolerance Comments: somnolence Date Reviewed: 04/18/2024 Reviewed by: Josephine Hawthorne APRN.PERSONNEL DIRECTOR - Fully Assessed Reason for Visit: D/C home health aide order [Other] Prescriptions as of 04/29/2024 - atorvastatin (LIPITOR) 10 mg tablet Take 1 tablet by mouth once daily. - DULoxetine (CYMBALTA) 30 mg capsule Take 1 capsule by mouth daily at bedtime. daily - DULoxetine (CYMBALTA) 60 mg capsule Take 1 capsule by mouth once daily. Take in the morning. - gabapentin (NEURONTIN) 800 mg tablet Take 1 tablet by mouth three times a day for 180 days. - hydrOXYzine pamoate (VISTARIL) 25 mg capsule Take 1 capsule by mouth daily at bedtime. daily - losartan (COZAAR) 50 mg tablet Take 1 tablet by mouth two times a day. - pantoprazole DR (PROTONIX) 40 mg tablet Take 1 tablet by mouth two times a day. - senna-docusate (SENNA-S) 8.6-50 mg per tablet Take 2 tablets by mouth two times a day. for constipation - tiZANidine (ZANAFLEX) 4 mg tablet Take 1 tablet by mouth every 8 hours as needed (muscle spasms). - polyethylene glycol 3350 (MIRALAX) 17 gram/dose powder Take 17 g by mouth once daily. as needed for constipation. Dissolve dose in 4 - 8 ounces of liquid and take as directed. Take in the morning. - cholecalciferol (VITAMIN D3) 50 mcg (2,000 unit) tablet Take 1 tablet by mouth once daily. - melatonin 5 mg tablet Take 1 tablet by mouth daily at bedtime. - docusate sodium (COLACE) 100 mg capsule Take 1 capsule by mouth two times a day as needed for constipation. Take this to avoid constipation with oxycodone use - diclofenac XR (VOLTAREN-XR) 100 mg Tb24 TAKE 1 TABLET BY MOUTH DAILY WITH FOOD NEEDED FOR PAIN - gabapentin (NEURONTIN) 300 mg capsule Take 1 capsule by mouth two times a day for 180 days. - [employer] Power Wheelchair - amLODIPine (NORVASC) 10 mg tablet Take 1 tablet by mouth once daily. - diclofenac (VOLTAREN) 1 % topical gel Apply 4 g to affected area four times daily. FOR EXTERNAL USE ONLY APPLY TO: right knee Use provided dosing card to measure the ordered dose. - methocarbamol (ROBAXIN) 750 mg tablet Take 1 tablet by mouth every 8 hours as needed (Muscle spasms). CAUTION: May cause drowsiness. - cloNIDine HCl (CATAPRES) 0.1 mg tablet Take 1 tablet by mouth twice daily. - acetaminophen (TYLENOL) 500 mg tablet Take 500 mg by mouth twice daily as needed for pain. - COMPOUNDED PRESCRIPTION BIPAP 1 liter bleed in 12/5 cm. RR 14 Replacement machine with heated humidity. CPAP mask and supplies. Use nightly. Problem List As Of Date 04/25/2024 Noted Resolved Essential hypertension [I10] 12/15/2014 Cervical polyp [N84.1] 12/15/2014 11/18/2019 Hyperlipidemia [E78.5] 12/15/2014 Osteoarthritis of both knees [M17.0] 12/15/2014 IRIS treated with BiPAP [G47.33] 12/15/2014 Class 3 severe obesity due to excess calories w*06/02/2017 Cervical myopathy [G72.9] 01/30/2018 Cervical spondylosis with myelopathy [M47.12] 01/30/2018 History of cervical polypectomy [Z98.890, Z87.4*11/18/2019 Paraparesis (HCC) [G82.20] Thyroid nodule [E04.1] 11/19/2020 Ventricular tachycardia, non-sustained (HCC) [I*11/19/2020 Spondylosis with myelopathy, 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*11/21/2020 Paronychia of right middle finger [L03.011] 11/23/2020 Fusion of spine of 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43.24] 11/25/2020 Acute postoperative pain [G89.18] 11/25/2020 Pseudogout of right knee [M11.261] 11/26/2020 Abnormal urinalysis [R82.90] 12/01/2020 Rash and nonspecific skin eruption on right thi*12/03/2020 Major depressive disorder, (more content not included)... Normal [facility] CNPNon 04-19-2024 CNPN Telephone (INTMWS) -- SONIA KARIMI ([id number]) 1955 F Date Time Provider Department 04/19/24 MELISSA MUHAMMAD INTMWS During your visit today, we recorded the following information about you: Vika Moreno, RN 04/19/2024 3:24 PM Signed Margy nurse from [facility] calling to update Dr. Muhammad that she saw pt today and opened up her case for SN, PT, OT and bath aide. Pt recently discharged from intermediate to home. (Pt had been in intermediate since last May) Allergies As of Date: 04/19/2024 Noted Allergy Reaction ATIVAN (LORAZEPAM) 03/26/2012 4 - Hives NEOMYCIN 02/02/2018 9 - Itching Comments: Hives, itching VALIUM (DIAZEPAM) 11/28/2020 5 - Intolerance Comments: somnolence Date Reviewed: 04/18/2024 Reviewed by: Josephine Hawthorne APRN.PERSONNEL DIRECTOR - Fully Assessed Reason for Visit: Home Care Management [1305] Prescriptions as of 04/19/2024 - atorvastatin (LIPITOR) 10 mg tablet Take 1 tablet by mouth once daily. - DULoxetine (CYMBALTA) 30 mg capsule Take 1 capsule by mouth daily at bedtime. daily - DULoxetine (CYMBALTA) 60 mg capsule Take 1 capsule by mouth once daily. Take in the morning. - gabapentin (NEURONTIN) 800 mg tablet Take 1 tablet by mouth three times a day for 180 days. - hydrOXYzine pamoate (VISTARIL) 25 mg capsule Take 1 capsule by mouth daily at bedtime. daily - losartan (COZAAR) 50 mg tablet Take 1 tablet by mouth two times a day. - pantoprazole DR (PROTONIX) 40 mg tablet Take 1 tablet by mouth two times a day. - senna-docusate (SENNA-S) 8.6-50 mg per tablet Take 2 tablets by mouth two times a day. for constipation - tiZANidine (ZANAFLEX) 4 mg tablet Take 1 tablet by mouth every 8 hours as needed (muscle spasms). - polyethylene glycol 3350 (MIRALAX) 17 gram/dose powder Take 17 g by mouth once daily. as needed for constipation. Dissolve dose in 4 - 8 ounces of liquid and take as directed. Take in the morning. - cholecalciferol (VITAMIN D3) 50 mcg (2,000 unit) tablet Take 1 tablet by mouth once daily. - melatonin 5 mg tablet Take 1 tablet by mouth daily at bedtime. - docusate sodium (COLACE) 100 mg capsule Take 1 capsule by mouth two times a day as needed for constipation. Take this to avoid constipation with oxycodone use - diclofenac XR (VOLTAREN-XR) 100 mg Tb24 TAKE 1 TABLET BY MOUTH DAILY WITH FOOD NEEDED FOR PAIN - gabapentin (NEURONTIN) 300 mg capsule Take 1 capsule by mouth two times a day for 180 days. - [employer] Power Wheelchair - amLODIPine (NORVASC) 10 mg tablet Take 1 tablet by mouth once daily. - diclofenac (VOLTAREN) 1 % topical gel Apply 4 g to affected area four times daily. FOR EXTERNAL USE ONLY APPLY TO: right knee Use provided dosing card to measure the ordered dose. - methocarbamol (ROBAXIN) 750 mg tablet Take 1 tablet by mouth every 8 hours as needed (Muscle spasms). CAUTION: May cause drowsiness. - cloNIDine HCl (CATAPRES) 0.1 mg tablet Take 1 tablet by mouth twice daily. - acetaminophen (TYLENOL) 500 mg tablet Take 500 mg by mouth twice daily as needed for pain. - COMPOUNDED PRESCRIPTION BIPAP 1 liter bleed in 12/5 cm. RR 14 Replacement machine with heated humidity. CPAP mask and supplies. Use nightly. Problem List As Of Date 04/19/2024 Noted Resolved Essential hypertension [I10] 12/15/2014 Cervical polyp [N84.1] 12/15/2014 11/18/2019 Hyperlipidemia [E78.5] 12/15/2014 Osteoarthritis of both knees [M17.0] 12/15/2014 IRIS treated with BiPAP [G47.33] 12/15/2014 Class 3 severe obesity due to excess calories w*06/02/2017 Cervical myopathy [G72.9] 01/30/2018 Cervical spondylosis with myelopathy [M47.12] 01/30/2018 History of cervical polypectomy [Z98.890, Z87.4*11/18/2019 Paraparesis (HCC) [G82.20] Thyroid nodule [E04.1] 11/19/2020 Ventricular tachycardia, non-sustained (HCC) [I*11/19/2020 Spondylosis with myelopathy, 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*11/21/2020 Paronychia of right middle finger [L03.011] 11/23/2020 Fusion of spine of 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43.24] 11/25/2020 Acute postoperative pain [G89.18] 11/25/2020 Pseudogout of right knee [M11.261] 11/26/2020 Abnormal urinalysis [R82.90] 12/01/2020 Rash and nonspecific skin eruption on right thi*12/03/2020 Major depressive disorder, recurrent, mild (HCC*09/02/2022 Chronic obstructive pulmonary disease (HCC) [J4*11/09/2022 Encounter Status:Closed by VIKA MORENO on 04/19/24 [facility] [place] 04-18-2024 CNOV Office Visit (INTMWS ) -- SONIA KARIMI ([id number]) 1955 F Date Time Provider Department 04/18/24 11:40 AM JOSEPHINE HAWTHORNE INTMKATRINA During your visit today, we recorded the following information about you: Pulse Respiration Blood pressure 83/minute 16/minute 110/73 Josephine Hawthorne, SEAL DELIVERY VEHICLE TEAM TECHNICIAN.PERSONNEL DIRECTOR 04/18/2024 2:20 PM Signed SUBJECTIVE: Spirometry Never done Anxiety Screening Never done Alpha-1 Antitrypsin Deficiency Screening Never done RSV Vaccine(1 - Risk 60-74 years 1-dose series) Never done Mammogram Screening due on 11/22/2017 Bone Density Screening Never done Influenza Vaccine(1) due on 10/15/2023 Covid-19 Vaccine( season) due on 10/15/2023 Annual PCP Team Chronic Disease Visit due on 11/10/2023 Advance Directive Discussion due on 02/14/2024 Colorectal Cancer Screening due on 06/27/2024 HPI Sonia Karimi is a 68 year old female. 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 ACTIVE PROBLEM LIST Essential Hypertension Hyperlipidemia Osteoarthritis of Both Knees Iris Treated With Bipap Class 3 severe obesity due to excess calories without serious comorbidity with body mass index (BMI) of 45.0 to 49.9 in adult Cervical Myopathy Cervical Spondylosis With Myelopathy History of Cervical Polypectomy Paraparesis (Hcc) Thyroid Nodule Ventricular Tachycardia, Non-Sustained (Hcc) Spondylosis With Myelopathy, Thoracic Region Paronychia of Right Middle Finger Fusion of Spine of Thoracic Region Acute Postoperative Pain Pseudogout of Right Knee Abnormal Urinalysis Rash and nonspecific skin eruption on right thigh Major Depressive Disorder, Recurrent, Mild (Hcc) Chronic Obstructive Pulmonary Disease (Hcc) Presents for SNF follow-up visit. Outside records received from [facility] indicate admission on October 06, 2023 through April 12, 2024. She was transferred to [facility] for therapy following L4-L5 laminectomy and discectomy with Dr. Curry orthopedics. She returned to the hospital same day due to a problem with her cat with a fall noting left arm pain and left humerus fracture. She also had a fall in December 2023. March 12, 2024 she lost control an electric wheelchair and hit right great toe. She underwent therapy with improvement of her status. She was discharged to home with slide board transfers from bed to chair chair to bed and otherwise using a mechanical lift. She was discharged with [facility] home health care PT and OT. She was discharged on a regular diet regular consistency and thin liquids. Today notes that she was seen at [facility] for about 10 months. Notes food was not good at [facility], better now since home. Today reports difficulty with transfers since discharge. She is currently using briefs because she cannot manage the toilet at home, having her toilet changed next week as a plan. She wonders if brace to be covered by her insurance, does not know her DME. She also uses washable underpads, wonders if these would also be covered by her DME. Stopped senna, now has had BM daily since discharge home. Using miralax currently. She notes [facility] home health care has not yet come out, they will be coming out next week. She has some daily morning assistance Monday to Monday otherwise home alone. Has had to call the squad for transfer once since her discharge home. Notes pain is controlled with current treatments. No lower extremities edema. Electric WC used all the time, has hospital bed, can not transfer to her usual bed. Review of Systems Musculoskeletal: Positive for arthralgias, back pain and gait problem. Neurological: Positive for weakness. Objective BP 110/73 Pulse 83 Resp 16 Physical Exam Vitals and nursing note reviewed. Constitutional: Appearance: Normal appearance. HENT: Head: Normocephalic and atraumatic. Eyes: Conjunctiva/sclera: Conjunctivae normal. Neck: Thyroid: No thyroid mass or thyromegaly. Vascular: Normal carotid pulses. Cardiovascular: Rate and Rhythm: Normal rate and regular rhythm. Pulses: Carotid pulses are 2+ on the right side and 2+ on the left side. Radial pulses are 2+ on the right side and 2+ on the left side. Heart sounds: Normal heart sounds. Pulmonary: Effort: Pulmonary effort is normal. Breath sounds: Normal breath sounds. Abdominal: General: Bowel sounds are normal. Palpations: Abdomen is soft. Musculoskeletal: Lumbar back: Spasms and tenderness present. Skin: General: Skin is warm and dry. Neurological: General: No focal deficit present. Mental Status: She is alert and oriented to person, place, and time. Seated in wheelchair, unable to stand for weight. ALLERGIES Allergen Reactions Ativan [Lorazepam] Hives Neomycin Itching Hives, itching Valium [Diazepam] Intolerance somnolence MEDICATIONS [employer] Wheelchair diclofenac (VOLTAREN) 1 % (more content not included)... Normal [facility] CNPNon 04-17-2024 [facility] Tele[facility] (INTMWS) -- SONIA KARIMI ([id number]) 1955 F Date Time Provider Department 04/17/24 MELISSA MUHAMMAD INTMWS During your visit today, we recorded the following information about you: Jose Miguel Resendiz RN 04/17/2024 12:33 PM Signed Luz Maria with [facility] calls to ask if provider will follow their orders for SN, PT, OT, and VIBRATION ANALYST for bathing. Patient discharged home from longterm facility on 04/12/2024 following rehabilitation. Luz Maria requests verbal orders be called back at [phone]. PRESTON Rinaldi Liza D, MD 04/17/2024 1:18 PM Signed Will follow Okay orders as noted below Patient will need follow up Ta Hunt LPN 04/17/2024 1:43 PM Signed Luz Maria has been notified of below. Allergies As of Date: 04/17/2024 Noted Allergy Reaction ATIVAN (LORAZEPAM) 03/26/2012 4 - Hives NEOMYCIN 02/02/2018 9 - Itching Comments: Hives, itching VALIUM (DIAZEPAM) 11/28/2020 5 - Intolerance Comments: somnolence Date Reviewed: 05/11/2023 Reviewed by: Poppy Brunner LPN - Fully Assessed Reason for Visit: Orders [681] Prescriptions as of 04/17/2024 - predniSONE (DELTASONE) 10 mg tablet Take 40 mg x 5 days, 20 mg x 5 days, 10 mg x 5 days. Take with breakfast - docusate sodium (COLACE) 100 mg capsule Take 1 capsule by mouth two times a day as needed for constipation. Take this to avoid constipation with oxycodone use - diclofenac XR (VOLTAREN-XR) 100 mg Tb24 TAKE 1 TABLET BY MOUTH DAILY WITH FOOD NEEDED FOR PAIN - gabapentin (NEURONTIN) 300 mg capsule Take 1 capsule by mouth two times a day for 180 days. - [employer] Wheel[employer] - spironolactone (ALDACTONE) 25 mg tablet Take 1 tablet by mouth once daily. - amLODIPine (NORVASC) 10 mg tablet Take 1 tablet by mouth once daily. - atorvastatin (LIPITOR) 10 mg tablet Take 1 tablet by mouth once daily. - diclofenac (VOLTAREN) 1 % topical gel Apply 4 g to affected area four times daily. FOR EXTERNAL USE ONLY APPLY TO: right knee Use provided dosing card to measure the ordered dose. - methocarbamol (ROBAXIN) 750 mg tablet Take 1 tablet by mouth every 8 hours as needed (Muscle spasms). CAUTION: May cause drowsiness. - sertraline (ZOLOFT) 100 mg tablet Take 1 tablet by mouth once daily. - valsartan (DIOVAN) 160 mg tablet Take 1 tablet by mouth once daily. - valsartan (DIOVAN) 80 mg tablet Take one every PM (in addition to 160 mg. Daily in AM). - cloNIDine HCl (CATAPRES) 0.1 mg tablet Take 1 tablet by mouth twice daily. - acetaminophen (TYLENOL) 500 mg tablet Take 500 mg by mouth twice daily as needed for pain. - cholecalciferol (VITAMIN D3) 50 mcg (2,000 unit) tablet Take 2,000 Units by mouth once daily. - COMPOUNDED PRESCRIPTION BIPAP 1 liter bleed in 12/5 cm. RR 14 Replacement machine with heated humidity. CPAP mask and supplies. Use nightly. Problem List As Of Date 04/17/2024 Noted Resolved Essential hypertension [I10] 12/15/2014 Cervical polyp [N84.1] 12/15/2014 11/18/2019 Hyperlipidemia [E78.5] 12/15/2014 Osteoarthritis of both knees [M17.0] 12/15/2014 IRIS treated with BiPAP [G47.33] 12/15/2014 Class 3 severe obesity due to excess calories w*06/02/2017 Cervical myopathy [G72.9] 01/30/2018 Cervical spondylosis with myelopathy [M47.12] 01/30/2018 History of cervical polypectomy [Z98.890, Z87.4*11/18/2019 Paraparesis (HCC) [G82.20] Thyroid nodule [E04.1] 11/19/2020 Ventricular tachycardia, non-sustained (HCC) [I*11/19/2020 Spondylosis with myelopathy, 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*11/21/2020 Paronychia of right middle finger [L03.011] 11/23/2020 Fusion of spine of 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43.24] 11/25/2020 Acute postoperative pain [G89.18] 11/25/2020 Pseudogout of right knee [M11.261] 11/26/2020 Abnormal urinalysis [R82.90] 12/01/2020 Rash and nonspecific skin eruption on right thi*12/03/2020 Major depressive disorder, recurrent, mild (HCC*09/02/2022 Chronic obstructive pulmonary disease (HCC) [J4*11/09/2022 Encounter Status:Closed by TA HUNT on 04/17/24 Normal [facility] Orthopedic Visit Reporton Orthopedic Visit Report Normal [facility] Shoulder min 2 Viewson 09-24 Shoulder min 2 Views Normal [facility] Forearm 2 Viewson 09-04-2023 Forearm 2 Views Normal [facility] Humerus min 2 Viewson 2023 Humerus min 2 Views Normal [facility] Orthopedic Visit Reporton Orthopedic Visit Report Normal [facility] Orthopedic Visit Reporton Orthopedic Visit Report Normal [facility] Alcohol, Blood (Medical)-Ser umon 08-09-2023 SERUM ETOH < 3.0 Normal [facility] Comment on above: Result Comment: The serum:whole blood ethanol ratio is approximately 1.14and varies slightly with hematocrit.Medical Alcohol reference interval and critical value innon-tolerant individuals; 50 - 100 Impairment 100 Intoxication 100 - 250 Severe Poisoning 250 - 400 Deep/possible fatal coma Performed By: #### L 500.2500, L100.0100, L501.9100, L505.5000 ####[facility] [address] [place], [address] Basic Metabolic Profile (BMP )on 08-09-2023 BUN/CRE 37.2 RATIO High 10-20 [facility] Comment on above: Performed By: #### L 500.2500, L100.0100, L501.9100, L505.5000 ####[facility] [address] [place], [address] CA,Total 10.4 mg/dL High 8.5-10.1 [facility] Comment on above: Performed By: #### L 500.2500, L100.0100, L501.9100, L505.5000 ####[facility] [address] [place], [address] Chloride [Moles/Vol] 99 mmol/L Normal 98-107 [facility] Comment on above: Performed By: #### L 500.2500, L100.0100, L501.9100, L505.5000 ####[facility] [address] [place], [address] CO2 [Moles/Vol] 32.0 mmol/L Normal 21.0-32.0 [facility] Comment on above: Performed By: #### L 500.2500, L100.0100, L501.9100, L505.5000 ####[facility] [address] [place], [address] Creatinine [Mass/Vol] 0.48 mg/dL Low 0.55-1.02 [facility] Comment on above: Result Comment: The validity of the calculated GFR GFRAA in patients over70 years has not been determined. Clinical correlation isessential. Performed By: #### L 500.2500, L100.0100, L501.9100, L505.5000 ####[facility] [address] [place], [address] ECRCL 83.46 ml/min Normal [facility] Comment on above: Performed By: #### L 500.2500, L100.0100, L501.9100, L505.5000 ####[facility] [address] [place], [address] EST GFR - AA 163 mL/min Normal >60 [facility] Comment on above: Result Comment: Afri can Guatemalan GFR Calc Performed By: #### L 500.2500, L100.0100, L501.9100, L505.5000 ####[facility] [address] [place], [address] GAP 5 Normal 5-15 [facility] Comment on above: Performed By: #### L 500.2500, L100.0100, L501.9100, L505.5000 ####[facility] [address] [place], [address] GFR/1.73 sq M.predicted among non-blacks MDRD (S/P/Bld) [Vol rate/Area] 135 mL/min/{1.73_m2} Normal >60 [facility] Comment on above: Result Comment: Non- GFR Calc Performed By: #### L 500.2500, L100.0100, L501.9100, L505.5000 ####[facility] [address] [place], [address] Glucose [Mass/Vol] 144 mg/dL High 74-106 [facility] Comment on above: Result Comment: Fast ing Glucose result greater than or equal to 126 mg/dLsuggests DIABETES MELLITUS per A.D.A. criteria. Performed By: #### L 500.2500, L100.0100, L501.9100, L505.5000 ####[facility] [address] [place], [address] Potassium [Moles/Vol] 4.0 mmol/L Normal 3.5-5.1 [facility] Comment on above: Performed By: #### L 500.2500, L100.0100, L501.9100, L505.5000 ####[facility] [address] [place], [address] Sodium [Moles/Vol] 136 mmol/L Normal 136-145 [facility] Comment on above: Performed By: #### L 500.2500, L100.0100, L501.9100, L505.5000 ####[facility] [address] [place], [address] Urea nitrogen [Mass/Vol] 18 mg/dL Normal 7-18 [facility] Comment on above: Performed By: #### L 500.2500, L100.0100, L501.9100, L505.5000 ####[facility] [address] [place], [address] CBC W/Diff, Automatedon - Absolute Lymph 1.33 X10 3/uL Normal 0.83-4.51 [facility] Comment on above: Performed By: #### L 500.2500, L100.0100, L501.9100, L505.5000 ####[facility] [address] [place], [address] Absolute Neut 7.5 X10 3/uL Normal 2.0-7.7 [facility] Comment on above: Performed By: #### L 500.2500, L100.0100, L501.9100, L505.5000 ####[facility] [address] [place], [address] Basophils/100 WBC (Bld) 0.5 % Normal 0-1 [facility] Comment on above: Performed By: #### L 500.2500, L100.0100, L501.9100, L505.5000 ####[facility] [address] [place], [address] Eosinophils/100 WBC (Bld) 2.8 % Normal 0-5 [facility] Comment on above: Performed By: #### L 500.2500, L100.0100, L501.9100, L505.5000 ####[facility] [address] [place], [address] Erythrocyte distribution width (RBC) [Ratio] 14.8 % High 11.6-14.6 [facility] Comment on above: Performed By: #### L 500.2500, L100.0100, L501.9100, L505.5000 ####[facility] [address] [place], [address] Hematocrit (Bld) [Volume fraction] 33.6 % Low 37-47 [facility] Comment on above: Performed By: #### L 500.2500, L100.0100, L501.9100, L505.5000 ####[facility] [address] [place], [address] Hemoglobin (Bld) [Mass/Vol] 10.2 g/dL Low 12.0-15.0 [facility] Comment on above: Performed By: #### L 500.2500, L100.0100, L501.9100, L505.5000 ####[facility] [address] [place], [address] IG% 0.700 Normal 0.0-0.9 [facility] Comment on above: Result Comment: IG% - Immature Granulocytes (promyelocytes, myelocytes andmetamyelocytes) > 1% indicates that a LEFT SHIFT is Present. Performed By: #### L 500.2500, L100.0100, L501.9100, L505.5000 ####[facility] [address] [place], [address] Lymphocytes/100 WBC (Bld) 13.1 % Low 19-41 [facility] Comment on above: Performed By: #### L 500.2500, L100.0100, L501.9100, L505.5000 ####[facility] [address] [place], [address] MCH (RBC) [Entitic mass] 24.3 pg Low 27.0-32.0 [facility] Comment on above: Performed By: #### L 500.2500, L100.0100, L501.9100, L505.5000 ####[facility] [address] [place], [address] MCHC (RBC) [Mass/Vol] 30.4 g/dL Low 32-36 [facility] Comment on above: Performed By: #### L 500.2500, L100.0100, L501.9100, L505.5000 ####[facility] [address] [place], [address] MCV (RBC) [Entitic vol] 80.0 fL Low 81-99 [facility] Comment on above: Performed By: #### L 500.2500, L100.0100, L501.9100, L505.5000 ####[facility] [address] [place], [address] Monocytes/100 WBC (Bld) 9.5 % Normal 0-10 [facility] Comment on above: Performed By: #### L 500.2500, L100.0100, L501.9100, L505.5000 ####[facility] [address] [place], [address] Neutrophils/100 WBC (Bld) 73.4 % High 47-70 [facility] Comment on above: Performed By: #### L 500.2500, L100.0100, L501.9100, L505.5000 ####[facility] [address] [place], [address] Nucleated RBC (Bld) [#/Vol] 0 10*3/uL Normal 0-5 [facility] Comment on above: Performed By: #### L 500.2500, L100.0100, L501.9100, L505.5000 ####[facility] [address] [place], [address] Platelet mean volume (Bld) [Entitic vol] 8.8 fL Normal 6.2-12.0 [facility] Comment on above: Performed By: #### L 500.2500, L100.0100, L501.9100, L505.5000 ####[facility] [address] [place], [address] Platelets (Bld) [#/Vol] 555 10*3/uL High 150-450 [facility] Comment on above: Performed By: #### L 500.2500, L100.0100, L501.9100, L505.5000 ####[facility] [address] [place], [address] RBC (Bld) [#/Vol] 4.20 10*6/uL Normal 4.2-5.4 [facility] Comment on above: Performed By: #### L 500.2500, L100.0100, L501.9100, L505.5000 ####[facility] [address] [place], [address] RDW SD 43.4 fl Normal 35.1-43.9 [facility] Comment on above: Performed By: #### L 500.2500, L100.0100, L501.9100, L505.5000 ####[facility] [address] [place], [address] WBC (Bld) [#/Vol] 10.2 10*3/uL Normal 4.4-11.0 [facility] Comment on above: Performed By: #### L 500.2500, L100.0100, L501.9100, L505.5000 ####[facility] [address] [place], [address] Emergency Department Summary on 08-09-2023 Emergency Department Summary Normal [facility] Spine Lumbar WITH Contraston 08-09-2023 Spine Lumbar WITH Contrast Normal [facility] Urine Drug Screen (VISTA)on 08-09-2023 AMPHETAMINES Negative Normal <1000 ng/mL [facility] Comment on above: Performed By: #### L 500.2500, L100.0100, L501.9100, L505.5000 ####[facility] [address] [facility] [address] BARBITIURATES Negative Normal < 200 ng/mL [facility] Comment on above: Performed By: #### L 500.2500, L100.0100, L501.9100, L505.5000 ####[facility] [address] [place] [address] BENZODIAZIPINE Positive Abnormal < 200 ng/mL [facility] Comment on above: Performed By: #### L 500.2500, L100.0100, L501.9100, L505.5000 ####[facility] [address] [place] [address] COCAINE Negative Normal < 300 ng/mL [facility] Comment on above: Performed By: #### L 500.2500, L100.0100, L501.9100, L505.5000 ####[facility] [address] [facility] [address] ECSTACY Negative Normal < 500 ng/mL [facility] Comment on above: Performed By: #### L 500.2500, L100.0100, L501.9100, L505.5000 ####[facility] [address] [facility] [address] METHADONE Negative Normal < 300 ng/mL [facility] Comment on above: Performed By: #### L 500.2500, L100.0100, L501.9100, L505.5000 ####[facility] [address] [facility] [address] OPIATES Positive Abnormal < 300 ng/mL [facility] Comment on above: Performed By: #### L 500.2500, L100.0100, L501.9100, L505.5000 ####[facility] [address] [place], [address] PCP Negative Normal < 25 ng/mL [facility] Comment on above: Performed By: #### L 500.2500, L100.0100, L501.9100, L505.5000 ####[facility] [address] [place], [address] THC Negative Normal < 50 ng/mL [facility] Comment on above: Performed By: #### L 500.2500, L100.0100, L501.9100, L505.5000 ####[facility] [address] [place], [address] VISTA UDS PH 6 Normal [facility] Comment on above: Performed By: #### L 500.2500, L100.0100, L501.9100, L505.5000 ####[facility] [address] [place], [address] Culture, Fungus 8482on 08-02 CUF Normal [facility] Comment on above: Performed By: #### M 600.2200, M600.1999 ####[facility] [address] [place], [address] Fungus Stain 8136on 08-03-19 24 FUNST Normal [facility] Comment on above: Performed By: #### M 600.2200, M600.2000 ####[facility] [address] [place], [address] HH, Hemoglobin AND Hematocri ton 07-13-2023 Hematocrit (Bld) [Volume fraction] 32.0 % Low 37-47 [facility] Comment on above: Performed By: #### L 100.0600 ####[facility] [address] [place], [address] Hemoglobin (Bld) [Mass/Vol] 9.7 g/dL Low 12.0-15.0 [facility] Comment on above: Performed By: #### L 100.0600 ####[facility] [address] [place], [address] Procedure Reporton Procedure Report Normal [facility] Basic Metabolic Profile (BMP )on 07-07-2023 BUN/CRE 37.8 RATIO High 10-20 [facility] Comment on above: Performed By: #### L 100.0100, L500.2500 ####[facility] [address] [place], [address] CA,Total 9.4 mg/dL Normal 8.5-10.1 [facility] Comment on above: Performed By: #### L 100.0100, L500.2500 ####[facility] [address] [place], [address] Chloride [Moles/Vol] 101 mmol/L Normal 98-107 [facility] Comment on above: Performed By: #### L 100.0100, L500.2500 ####[facility] [address] [place], [address] CO2 [Moles/Vol] 29.0 mmol/L Normal 21.0-32.0 [facility] Comment on above: Performed By: #### L 100.0100, L500.2500 ####[facility] [address] [place], [address] Creatinine [Mass/Vol] 0.48 mg/dL Low 0.55-1.02 [facility] Comment on above: Result Comment: The validity of the calculated GFR GFRAA in patients over70 years has not been determined. Clinical correlation isessential. Performed By: #### L 100.0100, L500.2500 ####[facility] [address] [place], [address] ECRCL 85.56 ml/min Normal [facility] Comment on above: Performed By: #### L 100.0100, L500.2500 ####[facility] [address] [place], [address] EST GFR - AA 166 mL/min Normal >60 [facility] Comment on above: Result Comment: Afri can Guatemalan GFR Calc Performed By: #### L 100.0100, L500.2500 ####[facility] [address] [place], [address] GAP 6 Normal 5-15 [facility] Comment on above: Performed By: #### L 100.0100, L500.2500 ####[facility] [address] [place], [address] GFR/1.73 sq M.predicted among non-blacks MDRD (S/P/Bld) [Vol rate/Area] 137 mL/min/{1.73_m2} Normal >60 [facility] Comment on above: Result Comment: Non- GFR Calc Performed By: #### L 100.0100, L500.2500 ####[facility] [address] [place], [address] Glucose [Mass/Vol] 99 mg/dL Normal 74-106 [facility] Comment on above: Performed By: #### L 100.0100, L500.2500 ####[facility] [address] [place], [address] Potassium [Moles/Vol] 4.0 mmol/L Normal 3.5-5.1 [facility] Comment on above: Performed By: #### L 100.0100, L500.2500 ####[facility] [address] [place], [address] Sodium [Moles/Vol] 136 mmol/L Normal 136-145 [facility] Comment on above: Performed By: #### L 100.0100, L500.2500 ####[facility] [address] [place], [address] Urea nitrogen [Mass/Vol] 18 mg/dL Normal 7-18 [facility] Comment on above: Performed By: #### L 100.0100, L500.2500 ####[facility] [address] [place], [address] CBC W/Diff, Automatedon 05-2 Absolute Lymph 1.76 X10 3/uL Normal 0.83-4.51 [facility] Comment on above: Performed By: #### L 100.0100, L500.2500 ####[facility] [address] [place], [address] Absolute Neut 4.2 X10 3/uL Normal 2.0-7.7 [facility] Comment on above: Performed By: #### L 100.0100, L500.2500 ####[facility] [address] [place], [address] Basophils/100 WBC (Bld) 0.6 % Normal 0-1 [facility] Comment on above: Performed By: #### L 100.0100, L500.2500 ####[facility] [address] [place], [address] Eosinophils/100 WBC (Bld) 3.6 % Normal 0-5 [facility] Comment on above: Performed By: #### L 100.0100, L500.2500 ####[facility] [address] [place], [address] Erythrocyte distribution width (RBC) [Ratio] 13.8 % Normal 11.6-14.6 [facility] Comment on above: Performed By: #### L 100.0100, L500.2500 ####[facility] [address] [place], [address] Hematocrit (Bld) [Volume fraction] 28.3 % Low 37-47 [facility] Comment on above: Performed By: #### L 100.0100, L500.2500 ####[facility] [address] [place], [address] Hemoglobin (Bld) [Mass/Vol] 8.6 g/dL Low 12.0-15.0 [facility] Comment on above: Performed By: #### L 100.0100, L500.2500 ####[facility] [address] [place], [address] IG% 0.900 Normal 0.0-0.9 [facility] Comment on above: Result Comment: IG% - Immature Granulocytes (promyelocytes, myelocytes andmetamyelocytes) > 1% indicates that a LEFT SHIFT is Present. Performed By: #### L 100.0100, L500.2500 ####[facility] [address] [place], [address] Lymphocytes/100 WBC (Bld) 25.3 % Normal 19-41 [facility] Comment on above: Performed By: #### L 100.0100, L500.2500 ####[facility] [address] [place], [address] MCH (RBC) [Entitic mass] 26.4 pg Low 27.0-32.0 [facility] Comment on above: Performed By: #### L 100.0100, L500.2500 ####[facility] [address] [place], [address] MCHC (RBC) [Mass/Vol] 30.4 g/dL Low 32-36 [facility] Comment on above: Performed By: #### L 100.0100, L500.2500 ####[facility] [address] [place], [address] MCV (RBC) [Entitic vol] 86.8 fL Normal 81-99 [facility] Comment on above: Performed By: #### L 100.0100, L500.2500 ####[facility] [address] [place], [address] Monocytes/100 WBC (Bld) 9.9 % Normal 0-10 [facility] Comment on above: Performed By: #### L 100.0100, L500.2500 ####[facility] [address] [place], [address] Neutrophils/100 WBC (Bld) 59.7 % Normal 47-70 [facility] Comment on above: Performed By: #### L 100.0100, L500.2500 ####[facility] [address] [place], [address] Nucleated RBC (Bld) [#/Vol] 0 10*3/uL Normal 0-5 [facility] Comment on above: Performed By: #### L 100.0100, L500.2500 ####[facility] [address] [place], [address] Platelet mean volume (Bld) [Entitic vol] 8.8 fL Normal 6.2-12.0 [facility] Comment on above: Performed By: #### L 100.0100, L500.2500 ####[facility] [address] [place], [address] Platelets (Bld) [#/Vol] 493 10*3/uL High 150-450 [facility] Comment on above: Performed By: #### L 100.0100, L500.2500 ####[facility] [address] [place], [address] RBC (Bld) [#/Vol] 3.26 10*6/uL Low 4.2-5.4 [facility] Comment on above: Performed By: #### L 100.0100, L500.2500 ####[facility] [address] [place], [address] RDW SD 43.3 fl Normal 35.1-43.9 [facility] Comment on above: Performed By: #### L 100.0100, L500.2500 ####[facility] [address] [place], [address] WBC (Bld) [#/Vol] 7.0 10*3/uL Normal 4.4-11.0 [facility] Comment on above: Performed By: #### L 100.0100, L500.2500 ####[facility] [address] [place], [address] Culture, Anaerobic Any Sourc patrick 07-06-2023 CUAN CULTURE DEEP WOUND L UMBAR SPINE No growth in 5 days. Normal [facility] Comment on above: Performed By: #### M 100.3000, M100.4001, M100.2000 ####[facility] [address] [place], [address] Culture, Anaerobic Any Sourc patrick 07-05-2023 CUAN SUPERFICIAL WOUND PATRICK MBAR SPINE No anaerobic bacteria isolated. Normal [facility] Comment on above: Performed By: #### M 100.2000, M100.4001, M100.3000 ####[facility] [address] [place], [address] Culture, Blood (WB)on 2023 CUB No growth in 5 days. Normal [facility] Comment on above: Performed By: #### M 200.1000 ####[facility] [address] [place], [address] CUB No growth in 5 days. Normal [facility] Comment on above: Performed By: #### M 200.1000 ####[facility] [address] [place], [address] HH, Hemoglobin AND Hematocri ton 07-05-2023 Hematocrit (Bld) [Volume fraction] 29.5 % Low 37-47 [facility] Comment on above: Performed By: #### L 100.0600 ####[facility] [address] [place], [address] Hemoglobin (Bld) [Mass/Vol] 9.2 g/dL Low 12.0-15.0 [facility] Comment on above: Performed By: #### L 100.0600 ####[facility] [address] [place], [address] Wound Cultureon 07-05-2023 WC Normal [facility] Comment on above: Performed By: #### M 100.2000, M100.4001, M100.3000 ####[facility] [address] [place], [address] Consultation - Infectious Dx on 07-03-2023 Consultation - Infectious Dx Normal [facility] Vancomycin, Trough Levelon 0 07-03-2023 VANCO, TROUGH 19.2 ug/mL High 5.0-15.0 [facility] Comment on above: Order Comment: Comme nts: Trough to be drawn 30 mins prior to scheduled [id number] Result Comment: VANC OMYCIN STANDARED DRUG THERAPY TROUGH LEVEL: 5.0 - 15.0 mg/LVANCOMYCIN HIGH INTENSITY THERAPY TROUGH LEVEL: 15.0 - 20.0 mg/LHigh Intensity therapy recommended for serious lifethreatening infections include:- Obcqitbuni-Wqfbvldogfcf-Vkgmagdza (Ventilator/Healtcare Associated)-SepsisPLEASE CONTACT PHARMACY SERVICES (#2972) FOR INTERPRETATIONOF RESULTS. Performed By: #### L 501.8820 ####[facility] [address] [place], [address] Wound Cultureon 07-03-2023 WC CULTURE DEEP WOUND L UMBAR SPINE No growth aerobically. Normal [facility] Comment on above: Performed By: #### M 100.3000, M100.4001, M100.1999 ####[facility] [address] [place], [address] HH, Hemoglobin AND Hematocri ton 07-02-2023 Hematocrit (Bld) [Volume fraction] 26.2 % Low 37-47 [facility] Comment on above: Performed By: #### L 100.0600 ####[facility] [address] [place], [address] Hemoglobin (Bld) [Mass/Vol] 8.2 g/dL Low 12.0-15.0 [facility] Comment on above: Performed By: #### L 100.0600 ####[facility] [address] [place], [address] Basic Metabolic Profile (BMP )on 07-01-2023 BUN/CRE 28.8 RATIO High 10-20 [facility] Comment on above: Performed By: #### L 500.2500, L100.0100 ####[facility] [address] [place], [address] CA,Total 9.5 mg/dL Normal 8.5-10.1 [facility] Comment on above: Performed By: #### L 500.2500, L100.0100 ####[facility] [address] [place], [address] Chloride [Moles/Vol] 102 mmol/L Normal 98-107 [facility] Comment on above: Performed By: #### L 500.2500, L100.0100 ####[facility] [address] [place], [address] CO2 [Moles/Vol] 31.0 mmol/L Normal 21.0-32.0 [facility] Comment on above: Performed By: #### L 500.2500, L100.0100 ####[facility] [address] [place], [address] Creatinine [Mass/Vol] 0.52 mg/dL Low 0.55-1.02 [facility] Comment on above: Result Comment: The validity of the calculated GFR GFRAA in patients over70 years has not been determined. Clinical correlation isessential. Performed By: #### L 500.2500, L100.0100 ####[facility] [address] [place], [address] ECRCL 85.47 ml/min Normal [facility] Comment on above: Performed By: #### L 500.2500, L100.0100 ####[facility] [address] [place], [address] EST GFR - AA 150 mL/min Normal >60 [facility] Comment on above: Result Comment: Afri can Guatemalan GFR Calc Performed By: #### L 500.2500, L100.0100 ####[facility] [address] [place], [address] GAP 4 Low 5-15 [facility] Comment on above: Performed By: #### L 500.2500, L100.0100 ####[facility] [address] [place], [address] GFR/1.73 sq M.predicted among non-blacks MDRD (S/P/Bld) [Vol rate/Area] 124 mL/min/{1.73_m2} Normal >60 [facility] Comment on above: Result Comment: Non- GFR Calc Performed By: #### L 500.2500, L100.0100 ####[facility] [address] [place], [address] Glucose [Mass/Vol] 144 mg/dL High 74-106 [facility] Comment on above: Result Comment: Fast ing Glucose result greater than or equal to 126 mg/dLsuggests DIABETES MELLITUS per A.D.A. criteria. Performed By: #### L 500.2500, L100.0100 ####[facility] [address] [place], [address] Potassium [Moles/Vol] 4.2 mmol/L Normal 3.5-5.1 [facility] Comment on above: Performed By: #### L 500.2500, L100.0100 ####[facility] [address] [place], [address] Sodium [Moles/Vol] 137 mmol/L Normal 136-145 [facility] Comment on above: Performed By: #### L 500.2500, L100.0100 ####[facility] [address] [place], [address] Urea nitrogen [Mass/Vol] 15 mg/dL Normal 7-18 [facility] Comment on above: Performed By: #### L 500.2500, L100.0100 ####[facility] [address] [place], [address] CBC W/Diff, Automatedon 06-13 Absolute Lymph 1.15 X10 3/uL Normal 0.83-4.51 [facility] Comment on above: Performed By: #### L 500.2500, L100.0100 ####[facility] [address] [place], [address] Absolute Neut 6.0 X10 3/uL Normal 2.0-7.7 [facility] Comment on above: Performed By: #### L 500.2500, L100.0100 ####[facility] [address] [place], [address] Basophils/100 WBC (Bld) 0.5 % Normal 0-1 [facility] Comment on above: Performed By: #### L 500.2500, L100.0100 ####[facility] [address] [place], [address] Eosinophils/100 WBC (Bld) 3.4 % Normal 0-5 [facility] Comment on above: Performed By: #### L 500.2500, L100.0100 ####[facility] [address] [place], [address] Erythrocyte distribution width (RBC) [Ratio] 13.3 % Normal 11.6-14.6 [facility] Comment on above: Performed By: #### L 500.2500, L100.0100 ####[facility] [address] [place], [address] Hematocrit (Bld) [Volume fraction] 27.2 % Low 37-47 [facility] Comment on above: Performed By: #### L 500.2500, L100.0100 ####[facility] [address] [place], [address] Hemoglobin (Bld) [Mass/Vol] 8.4 g/dL Low 12.0-15.0 [facility] Comment on above: Performed By: #### L 500.2500, L100.0100 ####[facility] [address] [place], [address] IG% 0.400 Normal 0.0-0.9 [facility] Comment on above: Result Comment: IG% - Immature Granulocytes (promyelocytes, myelocytes andmetamyelocytes) > 1% indicates that a LEFT SHIFT is Present. Performed By: #### L 500.2500, L100.0100 ####[facility] [address] [place], [address] Lymphocytes/100 WBC (Bld) 14.5 % Low 19-41 [facility] Comment on above: Performed By: #### L 500.2500, L100.0100 ####[facility] [address] [place], [address] MCH (RBC) [Entitic mass] 26.8 pg Low 27.0-32.0 [facility] Comment on above: Performed By: #### L 500.2500, L100.0100 ####[facility] [address] [place], [address] MCHC (RBC) [Mass/Vol] 30.9 g/dL Low 32-36 [facility] Comment on above: Performed By: #### L 500.2500, L100.0100 ####[facility] [address] [place], [address] MCV (RBC) [Entitic vol] 86.6 fL Normal 81-99 [facility] Comment on above: Performed By: #### L 500.2500, L100.0100 ####[facility] [address] [place], [address] Monocytes/100 WBC (Bld) 5.2 % Normal 0-10 [facility] Comment on above: Performed By: #### L 500.2500, L100.0100 ####[facility] [address] [place], [address] Neutrophils/100 WBC (Bld) 76.0 % High 47-70 [facility] Comment on above: Performed By: #### L 500.2500, L100.0100 ####[facility] [address] [place], [address] Nucleated RBC (Bld) [#/Vol] 0 10*3/uL Normal 0-5 [facility] Comment on above: Performed By: #### L 500.2500, L100.0100 ####[facility] [address] [place], [address] Platelet mean volume (Bld) [Entitic vol] 8.7 fL Normal 6.2-12.0 [facility] Comment on above: Performed By: #### L 500.2500, L100.0100 ####[facility] [address] [place], [address] Platelets (Bld) [#/Vol] 336 10*3/uL Normal 150-450 [facility] Comment on above: Performed By: #### L 500.2500, L100.0100 ####[facility] [address] [place], [address] RBC (Bld) [#/Vol] 3.14 10*6/uL Low 4.2-5.4 [facility] Comment on above: Performed By: #### L 500.2500, L100.0100 ####[facility] [address] [place], [address] RDW SD 41.8 fl Normal 35.1-43.9 [facility] Comment on above: Performed By: #### L 500.2500, L100.0100 ####[facility] [address] [place], [address] WBC (Bld) [#/Vol] 7.9 10*3/uL Normal 4.4-11.0 [facility] Comment on above: Performed By: #### L 500.2500, L100.0100 ####[facility] [address] [place], [address] Gram Stainon 07-01-2023 GS CULTURE DEEP WOUND L UMBAR SPINE Gram Stain No organisms seen Normal [facility] Comment on above: Performed By: #### M 100.3000, M100.4001, M100.2000 ####[facility] [address] [place], [address] GS SUPERFICIAL WOUND PATRICK MBAR SPINE Gram Stain 2+ Red Cell Stroma 1+ White Blood Cells No organisms seen Normal [facility] Comment on above: Performed By: #### M 100.2000, M100.4001, M100.3000 ####[facility] [address] [place], [address] Basic Metabolic Profile (BMP )on 06-30-2023 BUN/CRE 34.6 RATIO High 10-20 [facility] Comment on above: Performed By: #### L 100.0100, L500.2500 ####[facility] [address] [place], [address] CA,Total 9.9 mg/dL Normal 8.5-10.1 [facility] Comment on above: Performed By: #### L 100.0100, L500.2500 ####[facility] [address] [place], [address] Chloride [Moles/Vol] 104 mmol/L Normal 98-107 [facility] Comment on above: Performed By: #### L 100.0100, L500.2500 ####[facility] [address] [place], [address] CO2 [Moles/Vol] 28.0 mmol/L Normal 21.0-32.0 [facility] Comment on above: Performed By: #### L 100.0100, L500.2500 ####[facility] [address] [place], [address] Creatinine [Mass/Vol] 0.43 mg/dL Low 0.55-1.02 [facility] Comment on above: Result Comment: The validity of the calculated GFR GFRAA in patients over70 years has not been determined. Clinical correlation isessential. Performed By: #### L 100.0100, L500.2500 ####[facility] [address] [place], [address] ECRCL 85.45 ml/min Normal [facility] Comment on above: Performed By: #### L 100.0100, L500.2500 ####[facility] [address] [place], [address] EST GFR - AA 185 mL/min Normal >60 [facility] Comment on above: Result Comment: Afri can Guatemalan GFR Calc Performed By: #### L 100.0100, L500.2500 ####[facility] [address] [place], [address] GAP 4 Low 5-15 [facility] Comment on above: Performed By: #### L 100.0100, L500.2500 ####[facility] [address] [place], [address] GFR/1.73 sq M.predicted among non-blacks MDRD (S/P/Bld) [Vol rate/Area] 153 mL/min/{1.73_m2} Normal >60 [facility] Comment on above: Result Comment: Non- GFR Calc Performed By: #### L 100.0100, L500.2500 ####[facility] [address] [place], [address] Glucose [Mass/Vol] 97 mg/dL Normal 74-106 [facility] Comment on above: Performed By: #### L 100.0100, L500.2500 ####[facility] [address] [place], [address] Potassium [Moles/Vol] 4.0 mmol/L Normal 3.5-5.1 [facility] Comment on above: Performed By: #### L 100.0100, L500.2500 ####[facility] [address] [place], [address] Sodium [Moles/Vol] 136 mmol/L Normal 136-145 [facility] Comment on above: Performed By: #### L 100.0100, L500.2500 ####[facility] [address] [place], [address] Urea nitrogen [Mass/Vol] 15 mg/dL Normal 7-18 [facility] Comment on above: Performed By: #### L 100.0100, L500.2500 ####[facility] [address] [place], [address] CBC W/Diff, Automatedon 05- Absolute Lymph 1.74 X10 3/uL Normal 0.83-4.51 [facility] Comment on above: Performed By: #### L 100.0100, L500.2500 ####[facility] [address] [place], [address] Absolute Neut 4.9 X10 3/uL Normal 2.0-7.7 [facility] Comment on above: Performed By: #### L 100.0100, L500.2500 ####[facility] [address] [place], [address] Basophils/100 WBC (Bld) 0.5 % Normal 0-1 [facility] Comment on above: Performed By: #### L 100.0100, L500.2500 ####[facility] [address] [place], [address] Eosinophils/100 WBC (Bld) 4.5 % Normal 0-5 [facility] Comment on above: Performed By: #### L 100.0100, L500.2500 ####[facility] [address] [place], [address] Erythrocyte distribution width (RBC) [Ratio] 13.3 % Normal 11.6-14.6 [facility] Comment on above: Performed By: #### L 100.0100, L500.2500 ####[facility] [address] [place], [address] Hematocrit (Bld) [Volume fraction] 29.3 % Low 37-47 [facility] Comment on above: Performed By: #### L 100.0100, L500.2500 ####[facility] [address] [place], [address] Hemoglobin (Bld) [Mass/Vol] 9.3 g/dL Low 12.0-15.0 [facility] Comment on above: Performed By: #### L 100.0100, L500.2500 ####[facility] [address] [place], [address] IG% 0.400 Normal 0.0-0.9 [facility] Comment on above: Result Comment: IG% - Immature Granulocytes (promyelocytes, myelocytes andmetamyelocytes) > 1% indicates that a LEFT SHIFT is Present. Performed By: #### L 100.0100, L500.2500 ####[facility] [address] [place], [address] Lymphocytes/100 WBC (Bld) 22.8 % Normal 19-41 [facility] Comment on above: Performed By: #### L 100.0100, L500.2500 ####[facility] [address] [place], [address] MCH (RBC) [Entitic mass] 27.3 pg Normal 27.0-32.0 [facility] Comment on above: Performed By: #### L 100.0100, L500.2500 ####[facility] [address] [place], [address] MCHC (RBC) [Mass/Vol] 31.7 g/dL Low 32-36 [facility] Comment on above: Performed By: #### L 100.0100, L500.2500 ####[facility] [address] [place], [address] MCV (RBC) [Entitic vol] 85.9 fL Normal 81-99 [facility] Comment on above: Performed By: #### L 100.0100, L500.2500 ####[facility] [address] [place], [address] Monocytes/100 WBC (Bld) 7.9 % Normal 0-10 [facility] Comment on above: Performed By: #### L 100.0100, L500.2500 ####[facility] [address] [place], [address] Neutrophils/100 WBC (Bld) 63.9 % Normal 47-70 [facility] Comment on above: Performed By: #### L 100.0100, L500.2500 ####[facility] [address] [place], [address] Nucleated RBC (Bld) [#/Vol] 0 10*3/uL Normal 0-5 [facility] Comment on above: Performed By: #### L 100.0100, L500.2500 ####[facility] [address] [place], [address] Platelet mean volume (Bld) [Entitic vol] 8.5 fL Normal 6.2-12.0 [facility] Comment on above: Performed By: #### L 100.0100, L500.2500 ####[facility] [address] [place], [address] Platelets (Bld) [#/Vol] 320 10*3/uL Normal 150-450 [facility] Comment on above: Performed By: #### L 100.0100, L500.2500 ####[facility] [address] [place], [address] RBC (Bld) [#/Vol] 3.41 10*6/uL Low 4.2-5.4 [facility] Comment on above: Performed By: #### L 100.0100, L500.2500 ####[facility] [address] [place], [address] RDW SD 41.9 fl Normal 35.1-43.9 [facility] Comment on above: Performed By: #### L 100.0100, L500.2500 ####[facility] [address] [place], [address] WBC (Bld) [#/Vol] 7.6 10*3/uL Normal 4.4-11.0 [facility] Comment on above: Performed By: #### L 100.0100, L500.2500 ####[facility] [address] [place], [address] CRPon 06-30-2023 C-REACTIVE PROT 80.10 mg/L High 0.0-3.0 [facility] Comment on above: Result Comment: C-Re active Protein (CRP) provides useful information for thediagnosis, therapy and monitoring of inflammatory processesand associated diseases. For the evaluation of Relative Riskfor Cardiovascular Disease, a High Sensitivity CRP (HSCRP)should be ordered. Performed By: #### L 501.6710 ####[facility] [address] [place], [address] Erythrocyte Sed Rateon 06-29 SED RATE 42 mm/hr High 0-30 [facility] Comment on above: Performed By: #### L 101.9900 ####[facility] [address] [place], [address] Operative Reporton Operative Report Normal [facility] Basic Metabolic Profile (BMP )on 06-29-2023 BUN/CRE 29.6 RATIO High 10-20 [facility] Comment on above: Performed By: #### L 100.0100, L101.9900, L500.2500, L501.6710 ####[facility] [address] [place], [address] CA,Total 10.2 mg/dL High 8.5-10.1 [facility] Comment on above: Performed By: #### L 100.0100, L101.9900, L500.2500, L501.6710 ####[facility] [address] [place], [address] Chloride [Moles/Vol] 104 mmol/L Normal 98-107 [facility] Comment on above: Performed By: #### L 100.0100, L101.9900, L500.2500, L501.6710 ####[facility] [address] [place], [address] CO2 [Moles/Vol] 26.0 mmol/L Normal 21.0-32.0 [facility] Comment on above: Performed By: #### L 100.0100, L101.9900, L500.2500, L501.6710 ####[facility] [address] [place], [address] Creatinine [Mass/Vol] 0.51 mg/dL Low 0.55-1.02 [facility] Comment on above: Result Comment: The validity of the calculated GFR GFRAA in patients over70 years has not been determined. Clinical correlation isessential. Performed By: #### L 100.0100, L101.9900, L500.2500, L501.6710 ####[facility] [address] [place], [address] ECRCL 85.79 ml/min Normal [facility] Comment on above: Performed By: #### L 100.0100, L101.9900, L500.2500, L501.6710 ####[facility] [address] [place], [address] EST GFR - AA 155 mL/min Normal >60 [facility] Comment on above: Result Comment: Afri can Guatemalan GFR Calc Performed By: #### L 100.0100, L101.9900, L500.2500, L501.6710 ####[facility] [address] [place], [address] GAP 4 Low 5-15 [facility] [facility] Comment on above: Performed By: #### L 100.0100, L101.9900, L500.2500, L501.6710 ####[facility] [address] [place], [address] GFR/1.73 sq M.predicted among non-blacks MDRD (S/P/Bld) [Vol rate/Area] 128 mL/min/{1.73_m2} Normal >60 [facility] Comment on above: Result Comment: Non- GFR Calc Performed By: #### L 100.0100, L101.9900, L500.2500, L501.6710 ####[facility] [address] [place], [address] Glucose [Mass/Vol] 123 mg/dL High 74-106 [facility] Comment on above: Result Comment: Fast ing Glucose result from 100 to 125 mg/dLsuggests IMPAIRED HOMEOSTASIS per A.D.A. criteria. Performed By: #### L 100.0100, L101.9900, L500.2500, L501.6710 ####[facility] [address] [place], [address] Potassium [Moles/Vol] 3.8 mmol/L Normal 3.5-5.1 [facility] Comment on above: Performed By: #### L 100.0100, L101.9900, L500.2500, L501.6710 ####[facility] [address] [place], [address] Sodium [Moles/Vol] 134 mmol/L Low 136-145 [facility] Comment on above: Performed By: #### L 100.0100, L101.9900, L500.2500, L501.6710 ####[facility] [address] [place], [address] Urea nitrogen [Mass/Vol] 15 mg/dL Normal 7-18 [facility] Comment on above: Performed By: #### L 100.0100, L101.9900, L500.2500, L501.6710 ####[facility] [address] [place], [address] CBC W/Diff, Automatedon - Absolute Lymph 1.06 X10 3/uL Normal 0.83-4.51 [facility] Comment on above: Performed By: #### L 100.0100, L101.9900, L500.2500, L501.6710 ####[facility] [address] [place], [address] Absolute Neut 6.0 X10 3/uL Normal 2.0-7.7 [facility] Comment on above: Performed By: #### L 100.0100, L101.9900, L500.2500, L501.6710 ####[facility] [address] [place], [address] Basophils/100 WBC (Bld) 0.4 % Normal 0-1 [facility] Comment on above: Performed By: #### L 100.0100, L101.9900, L500.2500, L501.6710 ####[facility] [address] [place], [address] Eosinophils/100 WBC (Bld) 3.7 % Normal 0-5 [facility] Comment on above: Performed By: #### L 100.0100, L101.9900, L500.2500, L501.6710 ####[facility] [address] [place], [address] Erythrocyte distribution width (RBC) [Ratio] 13.5 % Normal 11.6-14.6 [facility] Comment on above: Performed By: #### L 100.0100, L101.9900, L500.2500, L501.6710 ####[facility] [address] [place], [address] Hematocrit (Bld) [Volume fraction] 32.1 % Low 37-47 [facility] Comment on above: Performed By: #### L 100.0100, L101.9900, L500.2500, L501.6710 ####[facility] [address] [place], [address] Hemoglobin (Bld) [Mass/Vol] 10.0 g/dL Low 12.0-15.0 [facility] Comment on above: Performed By: #### L 100.0100, L101.9900, L500.2500, L501.6710 ####[facility] [address] [place], [address] IG% 0.500 Normal 0.0-0.9 [facility] Comment on above: Result Comment: IG% - Immature Granulocytes (promyelocytes, myelocytes andmetamyelocytes) > 1% indicates that a LEFT SHIFT is Present. Performed By: #### L 100.0100, L101.9900, L500.2500, L501.6710 ####[facility] [address] [place], [address] Lymphocytes/100 WBC (Bld) 13.6 % Low 19-41 [facility] Comment on above: Performed By: #### L 100.0100, L101.9900, L500.2500, L501.6710 ####[facility] [address] [place], [address] MCH (RBC) [Entitic mass] 27.1 pg Normal 27.0-32.0 [facility] Comment on above: Performed By: #### L 100.0100, L101.9900, L500.2500, L501.6710 ####[facility] [address] [place], [address] MCHC (RBC) [Mass/Vol] 31.2 g/dL Low 32-36 [facility] Comment on above: Performed By: #### L 100.0100, L101.9900, L500.2500, L501.6710 ####[facility] [address] [place], [address] MCV (RBC) [Entitic vol] 87.0 fL Normal 81-99 [facility] Comment on above: Performed By: #### L 100.0100, L101.9900, L500.2500, L501.6710 ####[facility] [address] [place], [address] Monocytes/100 WBC (Bld) 4.6 % Normal 0-10 [facility] Comment on above: Performed By: #### L 100.0100, L101.9900, L500.2500, L501.6710 ####[facility] [address] [place], [address] Neutrophils/100 WBC (Bld) 77.2 % High 47-70 [facility] Comment on above: Performed By: #### L 100.0100, L101.9900, L500.2500, L501.6710 ####[facility] [address] [place], [address] Nucleated RBC (Bld) [#/Vol] 0 10*3/uL Normal 0-5 [facility] Comment on above: Performed By: #### L 100.0100, L101.9900, L500.2500, L501.6710 ####[facility] [address] [place], [address] Platelet mean volume (Bld) [Entitic vol] 9.2 fL Normal 6.2-12.0 [facility] Comment on above: Performed By: #### L 100.0100, L101.9900, L500.2500, L501.6710 ####[facility] [address] [place], [address] Platelets (Bld) [#/Vol] 341 10*3/uL Normal 150-450 [facility] Comment on above: Performed By: #### L 100.0100, L101.9900, L500.2500, L501.6710 ####[facility] [address] [place], [address] RBC (Bld) [#/Vol] 3.69 10*6/uL Low 4.2-5.4 [facility] Comment on above: Performed By: #### L 100.0100, L101.9900, L500.2500, L501.6710 ####[facility] [address] [place], [address] RDW SD 43.0 fl Normal 35.1-43.9 [facility] Comment on above: Performed By: #### L 100.0100, L101.9900, L500.2500, L501.6710 ####[facility] [address] [place], [address] WBC (Bld) [#/Vol] 7.8 10*3/uL Normal 4.4-11.0 [facility] Comment on above: Performed By: #### L 100.0100, L101.9900, L500.2500, L501.6710 ####[facility] [address] [place], [address] CRPon 06-29-2023 C-REACTIVE PROT 115.00 mg/L High 0.0-3.0 [facility] Comment on above: Result Comment: C-Re active Protein (CRP) provides useful information for thediagnosis, therapy and monitoring of inflammatory processesand associated diseases. For the evaluation of Relative Riskfor Cardiovascular Disease, a High Sensitivity CRP (HSCRP)should be ordered. Performed By: #### L 100.0100, L101.9900, L500.2500, L501.6710 ####[facility] [address] [place], [address] Consultation - Orthopedicson 06-29-2023 Consultation - Orthopedics Normal [facility] Erythrocyte Sed Rateon 06-28 SED RATE 45 mm/hr High 0-30 [facility] Comment on above: Performed By: #### L 100.0100, L101.9900, L500.2500, L501.6710 ####[facility] [address] [place], [address] MR/PN.GIon 06-29-2023 MR/PN.GI Normal [facility] Spine Lumbar (Routine)on Spine Lumbar (Routine) Normal [facility] Basic Metabolic Profile (BMP )on 06-28-2023 BUN/CRE 58.0 RATIO High 10-20 [facility] Comment on above: Performed By: #### L 500.2500 ####[facility] [address] [place], [address] CA,Total 10.0 mg/dL Normal 8.5-10.1 [facility] Comment on above: Performed By: #### L 500.2500 ####[facility] [address] [place], [address] Chloride [Moles/Vol] 102 mmol/L Normal 98-107 [facility] Comment on above: Performed By: #### L 500.2500 ####[facility] [address] [place], [address] CO2 [Moles/Vol] 27.0 mmol/L Normal 21.0-32.0 [facility] Comment on above: Performed By: #### L 500.2500 ####[facility] [address] [place], [address] Creatinine [Mass/Vol] 0.43 mg/dL Low 0.55-1.02 [facility] Comment on above: Result Comment: The validity of the calculated GFR GFRAA in patients over70 years has not been determined. Clinical correlation isessential. Performed By: #### L 500.2500 ####[facility] [address] [place], [address] ECRCL 85.79 ml/min Normal [facility] Comment on above: Performed By: #### L 500.2500 ####[facility] [address] [place], [address] EST GFR - AA 186 mL/min Normal >60 [facility] Comment on above: Result Comment: Afri can Guatemalan GFR Calc Performed By: #### L 500.2500 ####[facility] [address] [place], [address] GAP 5 Normal 5-15 [facility] Comment on above: Performed By: #### L 500.2500 ####[facility] [address] [place], [address] GFR/1.73 sq M.predicted among non-blacks MDRD (S/P/Bld) [Vol rate/Area] 154 mL/min/{1.73_m2} Normal >60 [facility] Comment on above: Result Comment: Non- GFR Calc Performed By: #### L 500.2500 ####[facility] [address] [place], [address] Glucose [Mass/Vol] 103 mg/dL Normal 74-106 [facility] Comment on above: Result Comment: Fast ing Glucose result from 100 to 125 mg/dLsuggests IMPAIRED HOMEOSTASIS per A.D.A. criteria. Performed By: #### L 500.2500 ####[facility] [address] [place], [address] Potassium [Moles/Vol] 4.1 mmol/L Normal 3.5-5.1 [facility] Comment on above: Performed By: #### L 500.2500 ####[facility] [address] [place], [address] Sodium [Moles/Vol] 134 mmol/L Low 136-145 [facility] Comment on above: Performed By: #### L 500.2500 ####[facility] [address] [place], [address] Urea nitrogen [Mass/Vol] 25 mg/dL High 7-18 [facility] Comment on above: Performed By: #### L 500.2500 ####[facility] [address] [place], [address] Colonoscopy Reporton Colonoscopy Report Normal [facility] EGD Reporton 06-28-2023 EGD Report Normal [facility] H Pylori (initial)on H Pylori (initial) Normal [facility] Comment on above: Performed By: #### P H.PYLORI ####[facility] [address] [place], [address] Surgery Specimen Level Vern 06-28-2023 Surgery Specimen Level IV Normal [facility] Comment on above: Performed By: #### P SUIV ####[facility] [address] [place], [address] Urine Cultureon 06-28-2023 URC Culture exhibits no growth. Normal [facility] Comment on above: Performed By: #### M 100.2200, L400.0001 ####[facility] [address] [place], [address] Basic Metabolic Profile (BMP )on 06-27-2023 BUN/CRE 89.0 RATIO High 10-20 [facility] Comment on above: Performed By: #### L 500.2500 ####[facility] [address] [place], [address] CA,Total 9.3 mg/dL Normal 8.5-10.1 [facility] Comment on above: Performed By: #### L 500.2500 ####[facility] [address] [place], [address] Chloride [Moles/Vol] 100 mmol/L Normal 98-107 [facility] Comment on above: Performed By: #### L 500.2500 ####[facility] [address] [place], [address] CO2 [Moles/Vol] 26.0 mmol/L Normal 21.0-32.0 [facility] Comment on above: Performed By: #### L 500.2500 ####[facility] [address] [place], [address] Creatinine [Mass/Vol] 0.57 mg/dL Normal 0.55-1.02 [facility] Comment on above: Result Comment: The validity of the calculated GFR GFRAA in patients over70 years has not been determined. Clinical correlation isessential. Performed By: #### L 500.2500 ####[facility] [address] [place], [address] ECRCL 82.98 ml/min Normal [facility] Comment on above: Performed By: #### L 500.2500 ####[facility] [address] [place], [address] EST GFR - AA 134 mL/min Normal >60 [facility] Comment on above: Result Comment: Afri can [place] GFR Calc Performed By: #### L 500.2500 ####[facility] [address] [place], [address] GAP 4 Low 5-15 [facility] Comment on above: Performed By: #### L 500.2500 ####[facility] [address] [place], [address] GFR/1.73 sq M.predicted among non-blacks MDRD (S/P/Bld) [Vol rate/Area] 111 mL/min/{1.73_m2} Normal >60 [facility] Comment on above: Result Comment: Non- GFR Calc Performed By: #### L 500.2500 ####[facility] [address] [place], [address] Glucose [Mass/Vol] 102 mg/dL Normal 74-106 [facility] Comment on above: Result Comment: Fast ing Glucose result from 100 to 125 mg/dLsuggests IMPAIRED HOMEOSTASIS per A.D.A. criteria. Performed By: #### L 500.2500 ####[facility] [address] [place], [address] Potassium [Moles/Vol] 5.3 mmol/L High 3.5-5.1 [facility] Comment on above: Performed By: #### L 500.2500 ####[facility] [address] [place], [address] Sodium [Moles/Vol] 130 mmol/L Low 136-145 [facility] Comment on above: Performed By: #### L 500.2500 ####[facility] [address] [place], [address] Urea nitrogen [Mass/Vol] 51 mg/dL High 7-18 [facility] Comment on above: Performed By: #### L 500.2500 ####[facility] [address] [place], [address] CBC W/Diff, Automatedon 05-1 -2023 Absolute Lymph 1.42 X10 3/uL Normal 0.83-4.51 [facility] Comment on above: Performed By: #### L 100.0100 ####[facility] [address] [place], [address] Absolute Neut 5.1 X10 3/uL Normal 2.0-7.7 [facility] Comment on above: Performed By: #### L 100.0100 ####[facility] [address] [place], [address] Basophils/100 WBC (Bld) 0.7 % Normal 0-1 [facility] Comment on above: Performed By: #### L 100.0100 ####[facility] [address] [place], [address] Eosinophils/100 WBC (Bld) 4.1 % Normal 0-5 [facility] Comment on above: Performed By: #### L 100.0100 ####[facility] [address] [place], [address] Erythrocyte distribution width (RBC) [Ratio] 13.7 % Normal 11.6-14.6 [facility] Comment on above: Performed By: #### L 100.0100 ####[facility] [address] [place], [address] Hematocrit (Bld) [Volume fraction] 28.5 % Low 37-47 [facility] Comment on above: Performed By: #### L 100.0100 ####[facility] [address] [place], [address] Hemoglobin (Bld) [Mass/Vol] 9.1 g/dL Low 12.0-15.0 [facility] Comment on above: Performed By: #### L 100.0100 ####[facility] [address] [place], [address] IG% 0.700 Normal 0.0-0.9 [facility] Comment on above: Result Comment: IG% - Immature Granulocytes (promyelocytes, myelocytes andmetamyelocytes) > 1% indicates that a LEFT SHIFT is Present. Performed By: #### L 100.0100 ####[facility] [address] [place], [address] Lymphocytes/100 WBC (Bld) 18.8 % Low 19-41 [facility] Comment on above: Performed By: #### L 100.0100 ####[facility] [address] [place], [address] MCH (RBC) [Entitic mass] 27.3 pg Normal 27.0-32.0 [facility] Comment on above: Performed By: #### L 100.0100 ####[facility] [address] [place], [address] MCHC (RBC) [Mass/Vol] 31.9 g/dL Low 32-36 [facility] Comment on above: Performed By: #### L 100.0100 ####[facility] [address] [place], [address] MCV (RBC) [Entitic vol] 85.6 fL Normal 81-99 [facility] Comment on above: Performed By: #### L 100.0100 ####[facility] [address] [place], [address] Monocytes/100 WBC (Bld) 8.3 % Normal 0-10 [facility] Comment on above: Performed By: #### L 100.0100 ####[facility] [address] [place], [address] Neutrophils/100 WBC (Bld) 67.4 % Normal 47-70 [facility] Comment on above: Performed By: #### L 100.0100 ####[facility] [address] [place], [address] Nucleated RBC (Bld) [#/Vol] 0 10*3/uL Normal 0-5 [facility] Comment on above: Performed By: #### L 100.0100 ####[facility] [address] [place], [address] Platelet mean volume (Bld) [Entitic vol] 9.2 fL Normal 6.2-12.0 [facility] Comment on above: Performed By: #### L 100.0100 ####[facility] [address] [place], [address] Platelets (Bld) [#/Vol] 222 10*3/uL Normal 150-450 [facility] Comment on above: Performed By: #### L 100.0100 ####[facility] [address] [place], [address] RBC (Bld) [#/Vol] 3.33 10*6/uL Low 4.2-5.4 [facility] Comment on above: Performed By: #### L 100.0100 ####[facility] [address] [place], [address] RDW SD 43.1 fl Normal 35.1-43.9 [facility] Comment on above: Performed By: #### L 100.0100 ####[facility] [address] [place], [address] WBC (Bld) [#/Vol] 7.6 10*3/uL Normal 4.4-11.0 [facility] Comment on above: Performed By: #### L 100.0100 ####[facility] [address] [place], [address] MR/CON.PCM.GIon 06-27-2023 MR/CON.PCM.GI Normal [facility] Urinalysis, Completeon 06-26 WBC 5-10 SEEN Normal 0-5 [facility] Comment on above: Order Comment: PEPE TER SPECIMEN Performed By: #### M 100.2200, L400.0001 ####[facility] [address] [place], [address] BACTERIA 0 SEEN Normal None Seen [facility] Comment on above: Order Comment: PEPE TER SPECIMEN Performed By: #### M 100.2200, L400.0001 ####[facility] [address] [place], [address] EPI,SQUAMOUS 0 SEEN Normal 5-10 [facility] Comment on above: Order Comment: PEPE TER SPECIMEN Performed By: #### M 100.2200, L400.0001 ####[facility] [address] [place], [address] Mucus Ql (Urine sed) 0 SEEN Normal [facility] Comment on above: Order Comment: PEPE TER SPECIMEN Performed By: #### M 100.2200, L400.0001 ####[facility] [address] [place], [address] RBC 0 SEEN Normal 0-5 [facility] Comment on above: Order Comment: PEPE TER SPECIMEN Performed By: #### M 100.2200, L400.0001 ####[facility] [address] [place], [address] Basic Metabolic Profile (BMP )on 06-26-2023 BUN/CRE 62.3 RATIO High 10-20 [facility] Comment on above: Performed By: #### L 500.2500 ####[facility] [address] [place], [address] CA,Total 10.0 mg/dL Normal 8.5-10.1 [facility] Comment on above: Performed By: #### L 500.2500 ####[facility] [address] [place], [address] Chloride [Moles/Vol] 97 mmol/L Low 98-107 [facility] Comment on above: Performed By: #### L 500.2500 ####[facility] [address] [place], [address] CO2 [Moles/Vol] 28.0 mmol/L Normal 21.0-32.0 [facility] Comment on above: Performed By: #### L 500.2500 ####[facility] [address] [place], [address] Creatinine [Mass/Vol] 0.69 mg/dL Normal 0.55-1.02 [facility] Comment on above: Result Comment: The validity of the calculated GFR GFRAA in patients over70 years has not been determined. Clinical correlation isessential. Performed By: #### L 500.2500 ####[facility] [address] [place], [address] ECRCL 82.98 ml/min Normal [facility] Comment on above: Performed By: #### L 500.2500 ####[facility] [address] [place], [address] EST GFR - AA 108 mL/min Normal >60 [facility] Comment on above: Result Comment: Afri can [place] GFR Calc Performed By: #### L 500.2500 ####[facility] [address] [place], [address] GAP 2 Low 5-15 [facility] Comment on above: Performed By: #### L 500.2500 ####[facility] [address] [place], [address] GFR/1.73 sq M.predicted among non-blacks MDRD (S/P/Bld) [Vol rate/Area] 90 mL/min/{1.73_m2} Normal >60 [facility] Comment on above: Result Comment: Non- GFR Calc Performed By: #### L 500.2500 ####[facility] [address] [place], [address] Glucose [Mass/Vol] 107 mg/dL High 74-106 [facility] Comment on above: Result Comment: Fast ing Glucose result from 100 to 125 mg/dLsuggests IMPAIRED HOMEOSTASIS per A.D.A. criteria. Performed By: #### L 500.2500 ####[facility] [address] [place], [address] Potassium [Moles/Vol] 5.4 mmol/L High 3.5-5.1 [facility] Comment on above: Performed By: #### L 500.2500 ####[facility] [address] [place], [address] Sodium [Moles/Vol] 127 mmol/L Low 136-145 [facility] Comment on above: Performed By: #### L 500.2500 ####[facility] [address] [place], [address] Urea nitrogen [Mass/Vol] 43 mg/dL High 7-18 [facility] Comment on above: Performed By: #### L 500.2500 ####[facility] [address] [place], [address] Stool Occult Blood iFOBon STOB Positive Normal [facility] Comment on above: Performed By: #### M 100.7900 ####[facility] [address] [place], [address] Basic Metabolic Profile (BMP )on 06-25-2023 BUN/CRE 58.0 RATIO High 10-20 [facility] Comment on above: Performed By: #### L 100.0100, L500.2500 ####[facility] [address] [place], [address] CA,Total 10.0 mg/dL Normal 8.5-10.1 [facility] Comment on above: Performed By: #### L 100.0100, L500.2500 ####[facility] [address] [place], [address] Chloride [Moles/Vol] 97 mmol/L Low 98-107 [facility] Comment on above: Performed By: #### L 100.0100, L500.2500 ####[facility] [address] [place], [address] CO2 [Moles/Vol] 27.0 mmol/L Normal 21.0-32.0 [facility] Comment on above: Performed By: #### L 100.0100, L500.2500 ####[facility] [address] [place], [address] Creatinine [Mass/Vol] 0.57 mg/dL Normal 0.55-1.02 [facility] Comment on above: Result Comment: The validity of the calculated GFR GFRAA in patients over70 years has not been determined. Clinical correlation isessential. Performed By: #### L 100.0100, L500.2500 ####[facility] [address] [place], [address] ECRCL 82.98 ml/min Normal [facility] Comment on above: Performed By: #### L 100.0100, L500.2500 ####[facility] [address] [place], [address] EST GFR - AA 135 mL/min Normal >60 [facility] Comment on above: Result Comment: Afri can Guatem[place] GFR Calc Performed By: #### L 100.0100, L500.2500 ####[facility] [address] [place], [address] GAP 4 Low 5-15 [facility] Comment on above: Performed By: #### L 100.0100, L500.2500 ####[facility] [address] [place], [address] GFR/1.73 sq M.predicted among non-blacks MDRD (S/P/Bld) [Vol rate/Area] 112 mL/min/{1.73_m2} Normal >60 [facility] Comment on above: Result Comment: Non- GFR Calc Performed By: #### L 100.0100, L500.2500 ####[facility] [address] [place], [address] Glucose [Mass/Vol] 94 mg/dL Normal 74-106 [facility] Comment on above: Performed By: #### L 100.0100, L500.2500 ####[facility] [address] [place], [address] Potassium [Moles/Vol] 4.5 mmol/L Normal 3.5-5.1 [facility] Comment on above: Performed By: #### L 100.0100, L500.2500 ####[facility] [address] [place], [address] Sodium [Moles/Vol] 128 mmol/L Low 136-145 [facility] Comment on above: Performed By: #### L 100.0100, L500.2500 ####[facility] [address] [place], [address] Urea nitrogen [Mass/Vol] 33 mg/dL High 7-18 [facility] Comment on above: Performed By: #### L 100.0100, L500.2500 ####[facility] [address] [place], [address] CBC W/Diff, Automatedon 05- Absolute Lymph 1.53 X10 3/uL Normal 0.83-4.51 [facility] Comment on above: Performed By: #### L 100.0100, L500.2500 ####[facility] [address] [place], [address] Absolute Neut 6.1 X10 3/uL Normal 2.0-7.7 [facility] Comment on above: Performed By: #### L 100.0100, L500.2500 ####[facility] [address] [place], [address] Basophils/100 WBC (Bld) 0.4 % Normal 0-1 [facility] Comment on above: Performed By: #### L 100.0100, L500.2500 ####[facility] [address] [place], [address] Eosinophils/100 WBC (Bld) 3.1 % Normal 0-5 [facility] Comment on above: Performed By: #### L 100.0100, L500.2500 ####[facility] [address] [place], [address] Erythrocyte distribution width (RBC) [Ratio] 13.6 % Normal 11.6-14.6 [facility] Comment on above: Performed By: #### L 100.0100, L500.2500 ####[facility] [address] [place], [address] Hematocrit (Bld) [Volume fraction] 32.6 % Low 37-47 [facility] Comment on above: Performed By: #### L 100.0100, L500.2500 ####[facility] [address] [place], [address] Hemoglobin (Bld) [Mass/Vol] 10.5 g/dL Low 12.0-15.0 [facility] Comment on above: Performed By: #### L 100.0100, L500.2500 ####[facility] [address] [place], [address] IG% 0.600 Normal 0.0-0.9 [facility] Comment on above: Result Comment: IG% - Immature Granulocytes (promyelocytes, myelocytes andmetamyelocytes) > 1% indicates that a LEFT SHIFT is Present. Performed By: #### L 100.0100, L500.2500 ####[facility] [address] [place], [address] Lymphocytes/100 WBC (Bld) 17.0 % Low 19-41 [facility] Comment on above: Performed By: #### L 100.0100, L500.2500 ####[facility] [address] [place], [address] MCH (RBC) [Entitic mass] 27.4 pg Normal 27.0-32.0 [facility] Comment on above: Performed By: #### L 100.0100, L500.2500 ####[facility] [address] [place], [address] MCHC (RBC) [Mass/Vol] 32.2 g/dL Normal 32-36 [facility] Comment on above: Performed By: #### L 100.0100, L500.2500 ####[facility] [address] [place], [address] MCV (RBC) [Entitic vol] 85.1 fL Normal 81-99 [facility] Comment on above: Performed By: #### L 100.0100, L500.2500 ####[facility] [address] [place], [address] Monocytes/100 WBC (Bld) 10.9 % High 0-10 [facility] Comment on above: Performed By: #### L 100.0100, L500.2500 ####[facility] [address] [place], [address] Neutrophils/100 WBC (Bld) 68.0 % Normal 47-70 [facility] Comment on above: Performed By: #### L 100.0100, L500.2500 ####[facility] [address] [place], [address] Nucleated RBC (Bld) [#/Vol] 0 10*3/uL Normal 0-5 [facility] Comment on above: Performed By: #### L 100.0100, L500.2500 ####[facility] [address] [place], [address] Platelet mean volume (Bld) [Entitic vol] 9.0 fL Normal 6.2-12.0 [facility] Comment on above: Performed By: #### L 100.0100, L500.2500 ####[facility] [address] [place], [address] Platelets (Bld) [#/Vol] 210 10*3/uL Normal 150-450 [facility] Comment on above: Performed By: #### L 100.0100, L500.2500 ####[facility] [address] [place], [address] RBC (Bld) [#/Vol] 3.83 10*6/uL Low 4.2-5.4 [facility] Comment on above: Performed By: #### L 100.0100, L500.2500 ####[facility] [address] [place], [address] RDW SD 43.0 fl Normal 35.1-43.9 [facility] Comment on above: Performed By: #### L 100.0100, L500.2500 ####[facility] [address] [place], [address] WBC (Bld) [#/Vol] 9.0 10*3/uL Normal 4.4-11.0 [facility] Comment on above: Performed By: #### L 100.0100, L500.2500 ####[facility] [address] [place], [address] Basic Metabolic Profile (BMP )on 06-24-2023 BUN/CRE 61.3 RATIO High 10-20 [facility] Comment on above: Performed By: #### L 500.2500, L100.0100 ####[facility] [address] [place], [address] CA,Total 9.8 mg/dL Normal 8.5-10.1 [facility] Comment on above: Performed By: #### L 500.2500, L100.0100 ####[facility] [address] [place], [address] Chloride [Moles/Vol] 96 mmol/L Low 98-107 [facility] Comment on above: Performed By: #### L 500.2500, L100.0100 ####[facility] [address] [place], [address] CO2 [Moles/Vol] 28.0 mmol/L Normal 21.0-32.0 [facility] Comment on above: Performed By: #### L 500.2500, L100.0100 ####[facility] [address] [place], [address] Creatinine [Mass/Vol] 0.56 mg/dL Normal 0.55-1.02 [facility] Comment on above: Result Comment: The validity of the calculated GFR GFRAA in patients over70 years has not been determined. Clinical correlation isessential. Performed By: #### L 500.2500, L100.0100 ####[facility] [address] [place], [address] ECRCL 82.98 ml/min Normal [facility] Comment on above: Performed By: #### L 500.2500, L100.0100 ####[facility] [address] [place], [address] EST GFR - AA 139 mL/min Normal >60 [facility] Comment on above: Result Comment: Afri can [place] GFR Calc Performed By: #### L 500.2500, L100.0100 ####[facility] [address] [place], [address] GAP 5 Normal 5-15 [facility] Comment on above: Performed By: #### L 500.2500, L100.0100 ####[facility] [address] [place], [address] GFR/1.73 sq M.predicted among non-blacks MDRD (S/P/Bld) [Vol rate/Area] 115 mL/min/{1.73_m2} Normal >60 [facility] Comment on above: Result Comment: Non- GFR Calc Performed By: #### L 500.2500, L100.0100 ####[facility] [address] [place], [address] Glucose [Mass/Vol] 92 mg/dL Normal 74-106 [facility] Comment on above: Performed By: #### L 500.2500, L100.0100 ####[facility] [address] [place], [address] Potassium [Moles/Vol] 4.9 mmol/L Normal 3.5-5.1 [facility] Comment on above: Performed By: #### L 500.2500, L100.0100 ####[facility] [address] [place], [address] Sodium [Moles/Vol] 129 mmol/L Low 136-145 [facility] Comment on above: Performed By: #### L 500.2500, L100.0100 ####[facility] [address] [place], [address] Urea nitrogen [Mass/Vol] 34 mg/dL High 7-18 [facility] Comment on above: Performed By: #### L 500.2500, L100.0100 ####[facility] [address] [place], [address] CBC W/Diff, Automatedon 05- Absolute Lymph 1.32 X10 3/uL Normal 0.83-4.51 [facility] Comment on above: Performed By: #### L 500.2500, L100.0100 ####[facility] [address] [place], [address] Absolute Neut 6.3 X10 3/uL Normal 2.0-7.7 [facility] Comment on above: Performed By: #### L 500.2500, L100.0100 ####[facility] [address] [place], [address] Basophils/100 WBC (Bld) 0.7 % Normal 0-1 [facility] Comment on above: Performed By: #### L 500.2500, L100.0100 ####[facility] [address] [place], [address] Eosinophils/100 WBC (Bld) 3.8 % Normal 0-5 [facility] Comment on above: Performed By: #### L 500.2500, L100.0100 ####[facility] [address] [place], [address] Erythrocyte distribution width (RBC) [Ratio] 13.6 % Normal 11.6-14.6 [facility] Comment on above: Performed By: #### L 500.2500, L100.0100 ####[facility] [address] [place], [address] Hematocrit (Bld) [Volume fraction] 35.3 % Low 37-47 [facility] Comment on above: Performed By: #### L 500.2500, L100.0100 ####[facility] [address] [place], [address] Hemoglobin (Bld) [Mass/Vol] 11.4 g/dL Low 12.0-15.0 [facility] Comment on above: Performed By: #### L 500.2500, L100.0100 ####[facility] [address] [place], [address] IG% 0.700 Normal 0.0-0.9 [facility] Comment on above: Result Comment: IG% - Immature Granulocytes (promyelocytes, myelocytes andmetamyelocytes) > 1% indicates that a LEFT SHIFT is Present. Performed By: #### L 500.2500, L100.0100 ####[facility] [address] [place], [address] Lymphocytes/100 WBC (Bld) 14.7 % Low 19-41 [facility] Comment on above: Performed By: #### L 500.2500, L100.0100 ####[facility] [address] [place], [address] MCH (RBC) [Entitic mass] 27.6 pg Normal 27.0-32.0 [facility] Comment on above: Performed By: #### L 500.2500, L100.0100 ####[facility] [address] [place], [address] MCHC (RBC) [Mass/Vol] 32.3 g/dL Normal 32-36 [facility] Comment on above: Performed By: #### L 500.2500, L100.0100 ####[facility] [address] [place], [address] MCV (RBC) [Entitic vol] 85.5 fL Normal 81-99 [facility] Comment on above: Performed By: #### L 500.2500, L100.0100 ####[facility] [address] [place], [address] Monocytes/100 WBC (Bld) 10.8 % High 0-10 [facility] Comment on above: Performed By: #### L 500.2500, L100.0100 ####[facility] [address] [place], [address] Neutrophils/100 WBC (Bld) 69.3 % Normal 47-70 [facility] Comment on above: Performed By: #### L 500.2500, L100.0100 ####[facility] [address] [place], [address] Nucleated RBC (Bld) [#/Vol] 0 10*3/uL Normal 0-5 [facility] Comment on above: Performed By: #### L 500.2500, L100.0100 ####[facility] [address] [place], [address] Platelet mean volume (Bld) [Entitic vol] 9.3 fL Normal 6.2-12.0 [facility] Comment on above: Performed By: #### L 500.2500, L100.0100 ####[facility] [address] [place], [address] Platelets (Bld) [#/Vol] 248 10*3/uL Normal 150-450 [facility] Comment on above: Performed By: #### L 500.2500, L100.0100 ####[facility] [address] [place], [address] RBC (Bld) [#/Vol] 4.13 10*6/uL Low 4.2-5.4 [facility] Comment on above: Performed By: #### L 500.2500, L100.0100 ####[facility] [address] [place], [address] RDW SD 42.4 fl Normal 35.1-43.9 [facility] Comment on above: Performed By: #### L 500.2500, L100.0100 ####[facility] [address] [place], [address] WBC (Bld) [#/Vol] 9.0 10*3/uL Normal 4.4-11.0 [facility] Comment on above: Performed By: #### L 500.2500, L100.0100 ####[facility] [address] [place], [address] Basic Metabolic Profile (BMP )on 06-23-2023 BUN/CRE 78.3 RATIO High 10-20 [facility] Comment on above: Performed By: #### L 100.0100, L500.2500 ####[facility] [address] [place], [address] CA,Total 10.1 mg/dL Normal 8.5-10.1 [facility] Comment on above: Performed By: #### L 100.0100, L500.2500 ####[facility] [address] [place], [address] Chloride [Moles/Vol] 98 mmol/L Normal 98-107 [facility] Comment on above: Performed By: #### L 100.0100, L500.2500 ####[facility] [address] [place], [address] CO2 [Moles/Vol] 23.0 mmol/L Normal 21.0-32.0 [facility] Comment on above: Performed By: #### L 100.0100, L500.2500 ####[facility] [address] [place], [address] Creatinine [Mass/Vol] 0.74 mg/dL Normal 0.55-1.02 [facility] Comment on above: Result Comment: The validity of the calculated GFR GFRAA in patients over70 years has not been determined. Clinical correlation isessential. Performed By: #### L 100.0100, L500.2500 ####[facility] [address] [place], [address] ECRCL 82.98 ml/min Normal [facility] Comment on above: Performed By: #### L 100.0100, L500.2500 ####[facility] [address] [place], [address] EST GFR - AA 100 mL/min Normal >60 [facility] Comment on above: Result Comment: Afri can [place] GFR Calc Performed By: #### L 100.0100, L500.2500 ####[facility] [address] [place], [address] GAP 6 Normal 5-15 [facility] Comment on above: Performed By: #### L 100.0100, L500.2500 ####[facility] [address] [place], [address] GFR/1.73 sq M.predicted among non-blacks MDRD (S/P/Bld) [Vol rate/Area] 82 mL/min/{1.73_m2} Normal >60 [facility] Comment on above: Result Comment: Non- GFR Calc Performed By: #### L 100.0100, L500.2500 ####[facility] [address] [place], [address] Glucose [Mass/Vol] 103 mg/dL Normal 74-106 [facility] Comment on above: Result Comment: Fast ing Glucose result from 100 to 125 mg/dLsuggests IMPAIRED HOMEOSTASIS per A.D.A. criteria. Performed By: #### L 100.0100, L500.2500 ####[facility] [address] [place], [address] Potassium [Moles/Vol] 5.5 mmol/L High 3.5-5.1 [facility] Comment on above: Performed By: #### L 100.0100, L500.2500 ####[facility] [address] [place], [address] Sodium [Moles/Vol] 127 mmol/L Low 136-145 [facility] Comment on above: Performed By: #### L 100.0100, L500.2500 ####[facility] [address] [place], [address] Urea nitrogen [Mass/Vol] 58 mg/dL High 7-18 [facility] Comment on above: Performed By: #### L 100.0100, L500.2500 ####[facility] [address] [place], [address] CBC W/Diff, Automatedon 05- 0-2023 Absolute Lymph 1.46 X10 3/uL Normal 0.83-4.51 [facility] Comment on above: Performed By: #### L 100.0100, L500.2500 ####[facility] [address] [place], [address] Absolute Neut 6.9 X10 3/uL Normal 2.0-7.7 [facility] Comment on above: Performed By: #### L 100.0100, L500.2500 ####[facility] [address] [place], [address] Basophils/100 WBC (Bld) 0.5 % Normal 0-1 [facility] Comment on above: Performed By: #### L 100.0100, L500.2500 ####[facility] [address] [place], [address] Eosinophils/100 WBC (Bld) 3.5 % Normal 0-5 [facility] Comment on above: Performed By: #### L 100.0100, L500.2500 ####[facility] [address] [place], [address] Erythrocyte distribution width (RBC) [Ratio] 13.7 % Normal 11.6-14.6 [facility] Comment on above: Performed By: #### L 100.0100, L500.2500 ####[facility] [address] [place], [address] Hematocrit (Bld) [Volume fraction] 33.3 % Low 37-47 [facility] Comment on above: Performed By: #### L 100.0100, L500.2500 ####[facility] [address] [place], [address] Hemoglobin (Bld) [Mass/Vol] 10.9 g/dL Low 12.0-15.0 [facility] Comment on above: Performed By: #### L 100.0100, L500.2500 ####[facility] [address] [place], [address] IG% 0.600 Normal 0.0-0.9 [facility] Comment on above: Result Comment: IG% - Immature Granulocytes (promyelocytes, myelocytes andmetamyelocytes) > 1% indicates that a LEFT SHIFT is Present. Performed By: #### L 100.0100, L500.2500 ####[facility] [address] [place], [address] Lymphocytes/100 WBC (Bld) 14.9 % Low 19-41 [facility] Comment on above: Performed By: #### L 100.0100, L500.2500 ####[facility] [address] [place], [address] MCH (RBC) [Entitic mass] 27.4 pg Normal 27.0-32.0 [facility] Comment on above: Performed By: #### L 100.0100, L500.2500 ####[facility] [address] [place], [address] MCHC (RBC) [Mass/Vol] 32.7 g/dL Normal 32-36 [facility] Comment on above: Performed By: #### L 100.0100, L500.2500 ####[facility] [address] [place], [address] MCV (RBC) [Entitic vol] 83.7 fL Normal 81-99 [facility] Comment on above: Performed By: #### L 100.0100, L500.2500 ####[facility] [address] [place], [address] Monocytes/100 WBC (Bld) 9.8 % Normal 0-10 [facility] Comment on above: Performed By: #### L 100.0100, L500.2500 ####[facility] [address] [place], [address] Neutrophils/100 WBC (Bld) 70.7 % High 47-70 [facility] Comment on above: Performed By: #### L 100.0100, L500.2500 ####[facility] [address] [place], [address] Nucleated RBC (Bld) [#/Vol] 0 10*3/uL Normal 0-5 [facility] Comment on above: Performed By: #### L 100.0100, L500.2500 ####[facility] [address] [place], [address] Platelet mean volume (Bld) [Entitic vol] 9.1 fL Normal 6.2-12.0 [facility] Comment on above: Performed By: #### L 100.0100, L500.2500 ####[facility] [address] [place], [address] Platelets (Bld) [#/Vol] 236 10*3/uL Normal 150-450 [facility] Comment on above: Performed By: #### L 100.0100, L500.2500 ####[facility] [address] [place], [address] RBC (Bld) [#/Vol] 3.98 10*6/uL Low 4.2-5.4 [facility] Comment on above: Performed By: #### L 100.0100, L500.2500 ####[facility] [address] [place], [address] RDW SD 41.9 fl Normal 35.1-43.9 [facility] Comment on above: Performed By: #### L 100.0100, L500.2500 ####[facility] [address] [place], [address] WBC (Bld) [#/Vol] 9.8 10*3/uL Normal 4.4-11.0 [facility] Comment on above: Performed By: #### L 100.0100, L500.2500 ####[facility] [address] [place], [address] HH, Hemoglobin AND Hematocri ton 06-23-2023 Hematocrit (Bld) [Volume fraction] 34.1 % Low 37-47 [facility] Comment on above: Performed By: #### L 100.0600 ####[facility] [address] [place], [address] Hemoglobin (Bld) [Mass/Vol] 11.0 g/dL Low 12.0-15.0 [facility] Comment on above: Performed By: #### L 100.0600 ####[facility] [address] [place], [address] Iron+Iron Binding Capacityon 06-23-2023 Iron [Mass/Vol] 24 ug/dL Low 50-170 [facility] Comment on above: Performed By: #### L 503.6030 ####[facility] [address] [place], [address] IRON SATURATION 9.1 Low 15.0-55.0 [facility] Comment on above: Performed By: #### L 503.6030 ####[facility] [address] [place], [address] TIBC 264 ug/dL Normal 250-450 [facility] Comment on above: Performed By: #### L 503.6030 ####[facility] [address] [place], [address] Osmolality, Serumon 06-23-19 24 OSMOLALITY,SER 283 mOsm/KG Normal 280-301 [facility] Comment on above: Performed By: #### L 501.7300 ####[facility] [address] [place], [address] Osmolality, Urineon 06-23-19 24 OSMOLALITY,UR 462 mOsm/KG Normal [facility] Comment on above: Result Comment: Norm al Urine Reference Ranges Random: 50 - 1200 mOsm/kg H20 depending on fluid intake Random: >850 mOsm/kg after 12 hour fluid restriction 24 hour: 300 - 900 mOsm/kg H2O Performed By: #### L 501.5500, L501.7400 ####[facility] [address] [place], [address] Pelvis without IV Contraston 06-23-2023 Pelvis without IV Contrast Normal [facility] Spine Lumbar without Contras ton 06-23-2023 Spine Lumbar without Contrast Normal [facility] Urine Sodiumon 06-23-2023 Sodium (U) [Moles/Vol] 43 mmol/L Normal Not Establ. [facility] Comment on above: Performed By: #### L 501.5500, L501.7400 ####[facility] [address] [place], [address] Basic Metabolic Profile (BMP )on 06-16-2023 BUN/CRE 54.6 RATIO High 12-02 [facility] Comment on above: Performed By: #### L 100.0100, L500.2500 ####[facility] [address] [place], [address] CA,Total 9.7 mg/dL Normal 8.5-10.1 [facility] Comment on above: Performed By: #### L 100.0100, L500.2500 ####[facility] [address] [place], [address] Chloride [Moles/Vol] 101 mmol/L Normal 98-107 [facility] Comment on above: Performed By: #### L 100.0100, L500.2500 ####[facility] [address] [place], [address] CO2 [Moles/Vol] 24.0 mmol/L Normal 21.0-32.0 [facility] Comment on above: Performed By: #### L 100.0100, L500.2500 ####[facility] [address] [place], [address] Creatinine [Mass/Vol] 0.53 mg/dL Low 0.55-1.02 [facility] Comment on above: Result Comment: The validity of the calculated GFR GFRAA in patients over70 years has not been determined. Clinical correlation isessential. Performed By: #### L 100.0100, L500.2500 ####[facility] [address] [place], [address] ECRCL 83.55 ml/min Normal [facility] Comment on above: Performed By: #### L 100.0100, L500.2500 ####[facility] [address] [place], [address] EST GFR - AA 147 mL/min Normal >60 [facility] Comment on above: Result Comment: Afri can Guatemalan GFR Calc Performed By: #### L 100.0100, L500.2500 ####[facility] [address] [place], [address] GAP 7 Normal 5-15 [facility] Comment on above: Performed By: #### L 100.0100, L500.2500 ####[facility] [address] [place], [address] GFR/1.73 sq M.predicted among non-blacks MDRD (S/P/Bld) [Vol rate/Area] 121 mL/min/{1.73_m2} Normal >60 [facility] Comment on above: Result Comment: Non- GFR Calc Performed By: #### L 100.0100, L500.2500 ####[facility] [address] [place], [address] Glucose [Mass/Vol] 108 mg/dL High 74-106 [facility] Comment on above: Result Comment: Fast ing Glucose result from 100 to 125 mg/dLsuggests IMPAIRED HOMEOSTASIS per A.D.A. criteria. Performed By: #### L 100.0100, L500.2500 ####[facility] [address] [place], [address] Potassium [Moles/Vol] 4.8 mmol/L Normal 3.5-5.1 [facility] Comment on above: Performed By: #### L 100.0100, L500.2500 ####[facility] [address] [place], [address] Sodium [Moles/Vol] 132 mmol/L Low 136-145 [facility] Comment on above: Performed By: #### L 100.0100, L500.2500 ####[facility] [address] [place], [address] Urea nitrogen [Mass/Vol] 29 mg/dL High 7-18 [facility] Comment on above: Performed By: #### L 100.0100, L500.2500 ####[facility] [address] [place], [address] CBC W/Diff, Automatedon 05-0 3-2023 Absolute Lymph 3.00 X10 3/uL Normal 0.83-4.51 [facility] Comment on above: Performed By: #### L 100.0100, L500.2500 ####[facility] [address] [place], [address] Absolute Neut 15.0 X10 3/uL High 2.0-7.7 [facility] Comment on above: Performed By: #### L 100.0100, L500.2500 ####[facility] [address] [place], [address] Basophils/100 WBC (Bld) 0.3 % Normal 0-1 [facility] Comment on above: Performed By: #### L 100.0100, L500.2500 ####[facility] [address] [place], [address] Eosinophils/100 WBC (Bld) 0.8 % Normal 0-5 [facility] Comment on above: Performed By: #### L 100.0100, L500.2500 ####[facility] [address] [place], [address] Erythrocyte distribution width (RBC) [Ratio] 13.4 % Normal 11.6-14.6 [facility] Comment on above: Performed By: #### L 100.0100, L500.2500 ####[facility] [address] [place], [address] Hematocrit (Bld) [Volume fraction] 41.9 % Normal 37-47 [facility] Comment on above: Performed By: #### L 100.0100, L500.2500 ####[facility] [address] [place], [address] Hemoglobin (Bld) [Mass/Vol] 13.5 g/dL Normal 12.0-15.0 [facility] Comment on above: Performed By: #### L 100.0100, L500.2500 ####[facility] [address] [place], [address] IG% 1.500 High 0.0-0.9 [facility] Comment on above: Result Comment: IG% - Immature Granulocytes (promyelocytes, myelocytes andmetamyelocytes) > 1% indicates that a LEFT SHIFT is Present. Performed By: #### L 100.0100, L500.2500 ####[facility] [address] [place], [address] Lymphocytes/100 WBC (Bld) 15.2 % Low 19-41 [facility] Comment on above: Performed By: #### L 100.0100, L500.2500 ####[facility] [address] [place], [address] MCH (RBC) [Entitic mass] 27.2 pg Normal 27.0-32.0 [facility] Comment on above: Performed By: #### L 100.0100, L500.2500 ####[facility] [address] [place], [address] MCHC (RBC) [Mass/Vol] 32.2 g/dL Normal 32-36 [facility] Comment on above: Performed By: #### L 100.0100, L500.2500 ####[facility] [address] [place], [address] MCV (RBC) [Entitic vol] 84.3 fL Normal 81-99 [facility] Comment on above: Performed By: #### L 100.0100, L500.2500 ####[facility] [address] [place], [address] Monocytes/100 WBC (Bld) 6.3 % Normal 0-10 [facility] Comment on above: Performed By: #### L 100.0100, L500.2500 ####[facility] [address] [place], [address] Neutrophils/100 WBC (Bld) 75.9 % High 47-70 [facility] Comment on above: Performed By: #### L 100.0100, L500.2500 ####[facility] [address] [place], [address] Nucleated RBC (Bld) [#/Vol] 0 10*3/uL Normal 0-5 [facility] Comment on above: Performed By: #### L 100.0100, L500.2500 ####[facility] [address] [place], [address] Platelet mean volume (Bld) [Entitic vol] 8.8 fL Normal 6.2-12.0 [facility] Comment on above: Performed By: #### L 100.0100, L500.2500 ####[facility] [address] [place], [address] Platelets (Bld) [#/Vol] 439 10*3/uL Normal 150-450 [facility] Comment on above: Performed By: #### L 100.0100, L500.2500 ####[facility] [address] [place], [address] RBC (Bld) [#/Vol] 4.97 10*6/uL Normal 4.2-5.4 [facility] Comment on above: Performed By: #### L 100.0100, L500.2500 ####[facility] [address] [place], [address] RDW SD 41.1 fl Normal 35.1-43.9 [facility] Comment on above: Performed By: #### L 100.0100, L500.2500 ####[facility] [address] [place], [address] WBC (Bld) [#/Vol] 19.7 10*3/uL High 4.4-11.0 [facility] Comment on above: Performed By: #### L 100.0100, L500.2500 ####[facility] [address] [place], [address] CBC W/Diff, Automatedon 04- PATH REV Reviewed Normal [facility] Comment on above: Result Comment: Neut rophilic leukocytosis.Clinical correlation suggested.Jurgen Coles D.O. 06/13/23 AMENDED REPORT 06/13/23 1509 PATH REV previously reported as: June Performed By: #### L 100.0100, L500.2500 ####[facility] [address] [place], [address] Lipid Profileon 06-13-2023 Cholesterol [Mass/Vol] 140 mg/dL Normal 200 [facility] Comment on above: Result Comment: <200 mg/dL Desirable 200-240 mg/dL Borderline >240 mg/dL High Risk Performed By: #### L 500.4100, L506.1000 ####[facility] [address] [place], [address] Cholesterol in HDL [Mass/Vol] 51 mg/dL Normal [facility] Comment on above: Result Comment: The drugs N-Acetylcysteine and Metamizole may falselydepress this assay. Reference Range HDL <40 mg/dL Low HDL Cholesterol HDL >or= 60 mg/dL High HDL Cholesterol Performed By: #### L 500.4100, L506.1000 ####[facility] [address] [place], [address] Cholesterol in LDL [Mass/Vol] 70 mg/dL Normal 0-130 [facility] Comment on above: Performed By: #### L 500.4100, L506.1000 ####[facility] [address] [place], [address] Cholesterol in VLDL [Mass/Vol] 19 mg/dL Normal 5-40 [facility] Comment on above: Performed By: #### L 500.4100, L506.1000 ####[facility] [address] [place], [address] Triglyceride [Mass/Vol] 94 mg/dL Normal [facility] Comment on above: Result Comment: The drugs N-Acetylcysteine and Metamizole may falselydepress this assay.Serum Triglycerides Reference Interval Normal <150 mg/dL Borderline high 150 - 199 mg/dL High 200 - 499 mg/dL Very High > or = 500 mg/dL Performed By: #### L 500.4100, L506.1000 ####[facility] [address] [place], [address] Vitamin D,25 Hydroxyon 06-12 Vitamin D 25-OH 31.7 ng/mL Normal [facility] Comment on above: Result Comment: Akthy min D 25(OH) Status Range Deficiency <20 ng/mL (50nmol/L) Insufficiency 20 - 30 ng/mL (50 - 75 nmol/L) Sufficiency 30 - 100 ng/mL (75 - 250 nmol/L) Toxicity >100 ng/mL (>250 nmol/L) Performed By: #### L 500.4100, L506.1000 ####[facility] [address] [place], [address] Basic Metabolic Profile (BMP )on 06-10-2023 BUN/CRE 54.1 RATIO High 10-20 [facility] Comment on above: Performed By: #### L 100.0100, L500.2500 ####[facility] [address] [place], [address] CA,Total 9.0 mg/dL Normal 8.5-10.1 [facility] Comment on above: Performed By: #### L 100.0100, L500.2500 ####[facility] [address] [place], [address] Chloride [Moles/Vol] 103 mmol/L Normal 98-107 [facility] Comment on above: Performed By: #### L 100.0100, L500.2500 ####[facility] [address] [place], [address] CO2 [Moles/Vol] 25.0 mmol/L Normal 21.0-32.0 [facility] Comment on above: Performed By: #### L 100.0100, L500.2500 ####[facility] [address] [place], [address] Creatinine [Mass/Vol] 0.50 mg/dL Low 0.55-1.02 [facility] Comment on above: Result Comment: The validity of the calculated GFR GFRAA in patients over70 years has not been determined. Clinical correlation isessential. Performed By: #### L 100.0100, L500.2500 ####[facility] [address] [place], [address] ECRCL 86.32 ml/min Normal [facility] Comment on above: Performed By: #### L 100.0100, L500.2500 ####[facility] [address] [place], [address] EST GFR - AA 158 mL/min Normal >60 [facility] Comment on above: Result Comment: Afri can Guatemalan GFR Calc Performed By: #### L 100.0100, L500.2500 ####[facility] [address] [place], [address] GAP 3 Low 5-15 [facility] Comment on above: Performed By: #### L 100.0100, L500.2500 ####[facility] [address] [place], [address] GFR/1.73 sq M.predicted among non-blacks MDRD (S/P/Bld) [Vol rate/Area] 130 mL/min/{1.73_m2} Normal >60 [facility] Comment on above: Result Comment: Non- GFR Calc Performed By: #### L 100.0100, L500.2500 ####[facility] [address] [place], [address] Glucose [Mass/Vol] 115 mg/dL High 74-106 [facility] Comment on above: Result Comment: Fast ing Glucose result from 100 to 125 mg/dLsuggests IMPAIRED HOMEOSTASIS per A.D.A. criteria. Performed By: #### L 100.0100, L500.2500 ####[facility] [address] [place], [address] Potassium [Moles/Vol] 4.8 mmol/L Normal 3.5-5.1 [facility] Comment on above: Performed By: #### L 100.0100, L500.2500 ####[facility] [address] [place], [address] Sodium [Moles/Vol] 131 mmol/L Low 136-145 [facility] Comment on above: Performed By: #### L 100.0100, L500.2500 ####[facility] [address] [place], [address] Urea nitrogen [Mass/Vol] 27 mg/dL High 7-18 [facility] Comment on above: Performed By: #### L 100.0100, L500.2500 ####[facility] [address] [place], [address] Absolute lymphocyte countOrd ered By: Lamont Arzate on 06-09-2023 Lymphocytes Auto (Unsp spec) [#/Vol] 0.71 10*3/uL 0.83-4.51 [facility] Automated lymphocyte count a s percentage of total leukocytesOrdered By: Lamont Arzate on 06-09-2023 Lymphocytes/100 WBC Auto (Unsp spec) 2.7 % 19-41 [facility] Basophil percentageOrdered B y: Lamont Arzate on 06-09-2023 Basophils/100 WBC (Bld) 0.1 % 0-1 [facility] Bilirubin [Mass/Vol] 0.30 mg/dL 0.20-1.00 [facility] Comment on above: For patients on eltr ombopag therapy, use of Dimension [place] TBIL is not recommended. Chloride [Moles/Vol] 99 mmol/L 98-107 [facility] Eosinophils/100 WBC (Bld) 0.0 % 0-5 [facility] Glucose [Mass/Vol] 149 mg/dL 74-106 [facility] Comment on above: Fasting Glucose resu lt greater than or equal to 126 mg/dL suggests DIABETES MELLITUS per A.D.A. criteria. Hemoglobin (Bld) [Mass/Vol] 12.3 g/dL 12.0-15.0 [facility] Monocytes/100 WBC (Bld) 4.6 % 0-10 [facility] Neutrophils (Bld) [#/Vol] 24.0 10*3/uL 2.0-7.7 [facility] Neutrophils/100 WBC (Bld) 91.8 % 47-70 [facility] Potassium [Moles/Vol] 5.0 mmol/L 3.5-5.1 [facility] Protein [Mass/Vol] 6.8 g/dL 6.4-8.2 [facility] Sodium [Moles/Vol] 131 mmol/L 136-145 [facility] WBC (Bld) [#/Vol] 26.2 10*3/uL 4.4-11.0 [facility] Blood manual differential co mment interpretation (narrative result)Ordered By: Lamont Arzate on 06-09-2023 Manual differential comment Gibran (Bld) [Interp] SCANNED [facility] CBC W/Diff, Automatedon 05-15 SMEAR COMMENT SCANNED Normal [facility] Comment on above: Performed By: #### L 500.4050, L100.0100 ####[facility] [address] [place], [address] Comprehensive Metabolic Prof ilon 06-09-2023 Albumin [Mass/Vol] 3.0 g/dL Low 3.2-5.0 [facility] Comment on above: Performed By: #### L 500.4050, L100.0100 ####[facility] [address] [place], [address] Albumin/Globulin [Mass ratio] 0.8 {ratio} Low 0.9-2.4 [facility] Comment on above: Performed By: #### L 500.4050, L100.0100 ####[facility] [address] [place], [address] ALK P 124 U/L High 45-117 [facility] Comment on above: Performed By: #### L 500.4050, L100.0100 ####[facility] [address] [place], [address] ALT [Catalytic activity/Vol] 26 U/L Normal 13-56 [facility] Comment on above: Performed By: #### L 500.4050, L100.0100 ####[facility] [address] [place], [address] AST [Catalytic activity/Vol] 22 U/L Normal 15-37 [facility] Comment on above: Performed By: #### L 500.4050, L100.0100 ####[facility] [address] [place], [address] Bilirubin [Mass/Vol] 0.30 mg/dL Normal 0.20-1.00 [facility] Comment on above: Result Comment: For patients on eltrombopag therapy, use of Dimension [place] TBIL is not recommended. Performed By: #### L 500.4050, L100.0100 ####[facility] [address] [place], [address] BUN/CRE 39.9 RATIO High 10-20 [facility] Comment on above: Performed By: #### L 500.4050, L100.0100 ####[facility] [address] [place], [address] CA,Total 8.9 mg/dL Normal 8.5-10.1 [facility] Comment on above: Performed By: #### L 500.4050, L100.0100 ####[facility] [address] [place], [address] Chloride [Moles/Vol] 99 mmol/L Normal 98-107 [facility] Comment on above: Performed By: #### L 500.4050, L100.0100 ####[facility] [address] [place], [address] CO2 [Moles/Vol] 26.0 mmol/L Normal 21.0-32.0 [facility] Comment on above: Performed By: #### L 500.4050, L100.0100 ####[facility] [address] [place], [address] Creatinine [Mass/Vol] 0.80 mg/dL Normal 0.55-1.02 [facility] Comment on above: Result Comment: The validity of the calculated GFR GFRAA in patients over70 years has not been determined. Clinical correlation isessential. Performed By: #### L 500.4050, L100.0100 ####[facility] [address] [place], [address] ECRCL 87.36 ml/min Normal [facility] Comment on above: Performed By: #### L 500.4050, L100.0100 ####[facility] [address] [place], [address] EST GFR - AA 91 mL/min Normal >60 [facility] Comment on above: Result Comment: Afri can Guatemalan GFR Calc Performed By: #### L 500.4050, L100.0100 ####[facility] [address] [place], [address] GAP 6 Normal 5-15 [facility] Comment on above: Performed By: #### L 500.4050, L100.0100 ####[facility] [address] [place], [address] GFR/1.73 sq M.predicted among non-blacks MDRD (S/P/Bld) [Vol rate/Area] 75 mL/min/{1.73_m2} Normal >60 [facility] Comment on above: Result Comment: Non- GFR Calc Performed By: #### L 500.4050, L100.0100 ####[facility] [address] [place], [address] Globulin (S) [Mass/Vol] 3.8 g/dL Normal 2.2-4.2 [facility] Comment on above: Performed By: #### L 500.4050, L100.0100 ####[facility] [address] [place], [address] Glucose [Mass/Vol] 149 mg/dL High 74-106 [facility] Comment on above: Result Comment: Fast ing Glucose result greater than or equal to 126 mg/dLsuggests DIABETES MELLITUS per A.D.A. criteria. Performed By: #### L 500.4050, L100.0100 ####[facility] [address] [place], [address] Potassium [Moles/Vol] 5.0 mmol/L Normal 3.5-5.1 [facility] Comment on above: Performed By: #### L 500.4050, L100.0100 ####[facility] [address] [place], [address] Sodium [Moles/Vol] 131 mmol/L Low 136-145 [facility] Comment on above: Performed By: #### L 500.4050, L100.0100 ####[facility] [address] [place], [address] T PROT 6.8 g/dL Normal 6.4-8.2 [facility] Comment on above: Performed By: #### L 500.4050, L100.0100 ####[facility] [address] [place], [address] Urea nitrogen [Mass/Vol] 32 mg/dL High 7-18 [facility] Comment on above: Performed By: #### L 500.4050, L100.0100 ####[facility] [address] [place], [address] Determination of erythrocyte mean corpuscular volume (MCV)Ordered By: Lamont Arzate on 06-09-2023 MCV (RBC) [Entitic vol] 84.1 fL 81-99 [facility] Erythrocyte distribution wid th ratioOrdered By: Lamont Arzate on 06-09-2023 Erythrocyte distribution width (RBC) [Ratio] 13.4 % 11.6-14.6 [facility] Erythrocyte distribution wid th standard deviationOrdered By: Lamont Arzate on 06-09-2023 Erythrocyte distribution width (RBC) [Entitic vol] 41.1 fL 35.1-43.9 [facility] Hematocrit Auto (Bld) [Volum e fraction]Ordered By: Lamont Arzate on 06-09-2023 Hematocrit (Bld) [Volume fraction] 37.5 % 37-47 [facility] Immature granulocytes/100 WB C Auto (Bld)Ordered By: Lamont Arzate on 06-09-2023 Immature granulocytes/100 WBC (Bld) 0.800 % 0.0-0.9 [facility] Comment on above: IG% - Immature Granu locytes (promyelocytes, myelocytes and metamyelocytes) > 1% indicates that a LEFT SHIFT is Present. Laboratory - Chemistry and C hemistry - challengeOrdered By: Lamont Arzate on 06-09-2023 Albumin/Globulin [Mass ratio] 0.8 {ratio} 0.9-2.4 [facility] ALP [Catalytic activity/Vol] 124 U/L 45-117 [facility] ALT [Catalytic activity/Vol] 26 U/L 13-56 [facility] CO2 [Moles/Vol] 26.0 mmol/L 21.0-32.0 [facility] Globulin (S) [Mass/Vol] 3.8 g/dL 2.2-4.2 [facility] Urea nitrogen/Creatinine [Mass ratio] 39.9 mg/mg 10-20 [facility] Laboratory - Hematology and Cell countsOrdered By: Lamont Arzate on 06-09-2023 MCH (RBC) [Entitic mass] 27.6 pg 27.0-32.0 [facility] MCHC (RBC) [Mass/Vol] 32.8 g/dL 32-36 [facility] Nucleated RBC/100 WBC (Bld) [Ratio] 0 % 0-5 [facility] Platelet mean volume (Bld) [Entitic vol] 8.9 fL 6.2-12.0 [facility] Platelets (Bld) [#/Vol] 506 10*3/uL 150-450 [facility] No Panel InformationOrdered By: Lamont Arzate on 06-09-2023 Estimated Creatinine Clearance Calc 87.36 ml/min [facility] Estimated GFR (MDRD) Amer 91 mL/min >60 [facility] Comment on above: GFR Calc Estimated GFR (MDRD) Non-Af Amer 75 mL/min >60 [facility] Comment on above: Non- GFR Calc RBC Auto (Bld) [#/Vol]Ordere d By: Lamont Arzate on 06-09-2023 RBC (Bld) [#/Vol] 4.46 10*6/uL 4.2-5.4 [facility] Serum or plasma calcium rui urement (mass/volume)Ordered By: Lamont Arzate on 06-09-2023 Calcium [Mass/Vol] 8.9 mg/dL 8.5-10.1 [facility] Serum or plasma creatinine m easurement (mass/volume)Ordered By: Lamont Arzate on 06-09-2023 Creatinine [Mass/Vol] 0.80 mg/dL 0.55-1.02 [facility] Comment on above: The validity of the calculated GFR & GFRAA in patients over 70 years has not been determined. Clinical correlation is essential. Serum or plasma urea nitroge n measurement (mass/volume)Ordered By: Lamont Arzate on 06-09-2023 Urea nitrogen [Mass/Vol] 32 mg/dL 7-18 [facility] Thin prep Papanicolaou smear with manual screeningOrdered By: Lamont Arzate on 06-09-2023 Thin prep Papanicolaou smear with manual screening 3.0 g/dL 3.2-5.0 [facility] Thin prep Papanicolaou smear with manual screening 22 U/L 15-37 [facility] Thin prep Papanicolaou smear with manual screening 6 5-15 [facility] CBC W/Diff, Automatedon 05-15 Absolute Lymph 1.05 X10 3/uL Normal 0.83-4.51 [facility] Comment on above: Performed By: #### L 100.0100, L500.4050 ####[facility] [address] [place], [address] Absolute Neut 16.5 X10 3/uL High 2.0-7.7 [facility] Comment on above: Performed By: #### L 100.0100, L500.4050 ####[facility] [address] [place], [address] Basophils/100 WBC (Bld) 0.1 % Normal 0-1 [facility] Comment on above: Performed By: #### L 100.0100, L500.4050 ####[facility] [address] [place], [address] Eosinophils/100 WBC (Bld) 0.1 % Normal 0-5 [facility] Comment on above: Performed By: #### L 100.0100, L500.4050 ####[facility] [address] [place], [address] Erythrocyte distribution width (RBC) [Ratio] 13.6 % Normal 11.6-14.6 [facility] Comment on above: Performed By: #### L 100.0100, L500.4050 ####[facility] [address] [place], [address] Hematocrit (Bld) [Volume fraction] 40.8 % Normal 37-47 [facility] Comment on above: Performed By: #### L 100.0100, L500.4050 ####[facility] [address] [place], [address] Hemoglobin (Bld) [Mass/Vol] 13.3 g/dL Normal 12.0-15.0 [facility] Comment on above: Performed By: #### L 100.0100, L500.4050 ####[facility] [address] [place], [address] IG% 0.700 Normal 0.0-0.9 [facility] Comment on above: Result Comment: IG% - Immature Granulocytes (promyelocytes, myelocytes andmetamyelocytes) > 1% indicates that a LEFT SHIFT is Present. Performed By: #### L 100.0100, L500.4050 ####[facility] [address] [place], [address] Lymphocytes/100 WBC (Bld) 5.8 % Low 19-41 [facility] Comment on above: Performed By: #### L 100.0100, L500.4050 ####[facility] [address] [place], [address] MCH (RBC) [Entitic mass] 27.5 pg Normal 27.0-32.0 [facility] Comment on above: Performed By: #### L 100.0100, L500.4050 ####[facility] [address] [place], [address] MCHC (RBC) [Mass/Vol] 32.6 g/dL Normal 32-36 [facility] Comment on above: Performed By: #### L 100.0100, L500.4050 ####[facility] [address] [place], [address] MCV (RBC) [Entitic vol] 84.5 fL Normal 81-99 [facility] Comment on above: Performed By: #### L 100.0100, L500.4050 ####[facility] [address] [place], [address] Monocytes/100 WBC (Bld) 3.0 % Normal 0-10 [facility] Comment on above: Performed By: #### L 100.0100, L500.4050 ####[facility] [address] [place], [address] Neutrophils/100 WBC (Bld) 90.3 % High 47-70 [facility] Comment on above: Performed By: #### L 100.0100, L500.4050 ####[facility] [address] [place], [address] Nucleated RBC (Bld) [#/Vol] 0 10*3/uL Normal 0-5 [facility] Comment on above: Performed By: #### L 100.0100, L500.4050 ####[facility] [address] [place], [address] Platelet mean volume (Bld) [Entitic vol] 8.9 fL Normal 6.2-12.0 [facility] Comment on above: Performed By: #### L 100.0100, L500.4050 ####[facility] [address] [place], [address] Platelets (Bld) [#/Vol] 551 10*3/uL High 150-450 [facility] Comment on above: Performed By: #### L 100.0100, L500.4050 ####[facility] [address] [place], [address] RBC (Bld) [#/Vol] 4.83 10*6/uL Normal 4.2-5.4 [facility] Comment on above: Performed By: #### L 100.0100, L500.4050 ####[facility] [address] [place], [address] RDW SD 41.7 fl Normal 35.1-43.9 [facility] Comment on above: Performed By: #### L 100.0100, L500.4050 ####[facility] [address] [place], [address] WBC (Bld) [#/Vol] 18.3 10*3/uL High 4.4-11.0 [facility] Comment on above: Performed By: #### L 100.0100, L500.4050 ####[facility] [address] [place], [address] Comprehensive Metabolic Prof ilon 06-08-2023 Albumin [Mass/Vol] 3.2 g/dL Normal 3.2-5.0 [facility] Comment on above: Performed By: #### L 100.0100, L500.4050 ####[facility] [address] [place], [address] Albumin/Globulin [Mass ratio] 0.8 {ratio} Low 0.9-2.4 [facility] Comment on above: Performed By: #### L 100.0100, L500.4050 ####[facility] [address] [place], [address] ALK P 131 U/L High 45-117 [facility] Comment on above: Performed By: #### L 100.0100, L500.4050 ####[facility] [address] [place], [address] ALT [Catalytic activity/Vol] 44 U/L Normal 13-56 [facility] Comment on above: Performed By: #### L 100.0100, L500.4050 ####[facility] [address] [place], [address] AST [Catalytic activity/Vol] 19 U/L Normal 15-37 [facility] Comment on above: Performed By: #### L 100.0100, L500.4050 ####[facility] [address] [place], [address] Bilirubin [Mass/Vol] 0.30 mg/dL Normal 0.20-1.00 [facility] Comment on above: Result Comment: For patients on eltrombopag therapy, use of Dimension Bon Wier TBIL is not recommended. Performed By: #### L 100.0100, L500.4050 ####[facility] [address] [place], [address] BUN/CRE 38.2 RATIO High 10-20 [facility] Comment on above: Performed By: #### L 100.0100, L500.4050 ####[facility] [address] [place], [address] CA,Total 9.7 mg/dL Normal 8.5-10.1 [facility] Comment on above: Performed By: #### L 100.0100, L500.4050 ####[facility] [address] [place], [address] Chloride [Moles/Vol] 99 mmol/L Normal 98-107 [facility] Comment on above: Performed By: #### L 100.0100, L500.4050 ####[facility] [address] [place], [address] CO2 [Moles/Vol] 27.0 mmol/L Normal 21.0-32.0 [facility] Comment on above: Performed By: #### L 100.0100, L500.4050 ####[facility] [address] [place], [address] Creatinine [Mass/Vol] 0.71 mg/dL Normal 0.55-1.02 [facility] Comment on above: Result Comment: The validity of the calculated GFR GFRAA in patients over70 years has not been determined. Clinical correlation isessential. Performed By: #### L 100.0100, L500.4050 ####[facility] [address] [place], [address] ECRCL 87.70 ml/min Normal [facility] Comment on above: Performed By: #### L 100.0100, L500.4050 ####[facility] [address] [place], [address] EST GFR - AA 106 mL/min Normal >60 [facility] Comment on above: Result Comment: Afri can Guatemalan GFR Calc Performed By: #### L 100.0100, L500.4050 ####[facility] [address] [place], [address] GAP 4 Low 5-15 [facility] Comment on above: Performed By: #### L 100.0100, L500.4050 ####[facility] [address] [place], [address] GFR/1.73 sq M.predicted among non-blacks MDRD (S/P/Bld) [Vol rate/Area] 87 mL/min/{1.73_m2} Normal >60 [facility] Comment on above: Result Comment: Non- GFR Calc Performed By: #### L 100.0100, L500.4050 ####[facility] [address] [place], [address] Globulin (S) [Mass/Vol] 4.0 g/dL Normal 2.2-4.2 [facility] Comment on above: Performed By: #### L 100.0100, L500.4050 ####[facility] [address] [place], [address] Glucose [Mass/Vol] 160 mg/dL High 74-106 [facility] Comment on above: Result Comment: Fast ing Glucose result greater than or equal to 126 mg/dLsuggests DIABETES MELLITUS per A.D.A. criteria. Performed By: #### L 100.0100, L500.4050 ####[facility] [address] [place], [address] Potassium [Moles/Vol] 4.9 mmol/L Normal 3.5-5.1 [facility] Comment on above: Performed By: #### L 100.0100, L500.4050 ####[facility] [address] [place], [address] Sodium [Moles/Vol] 130 mmol/L Low 136-145 [facility] Comment on above: Performed By: #### L 100.0100, L500.4050 ####[facility] [address] [place], [address] T PROT 7.2 g/dL Normal 6.4-8.2 [facility] Comment on above: Performed By: #### L 100.0100, L500.4050 ####[facility] [address] [place], [address] Urea nitrogen [Mass/Vol] 27 mg/dL High 7-18 [facility] Comment on above: Performed By: #### L 100.0100, L500.4050 ####[facility] [address] [place], [address] Operative Reporton Operative Report Normal [facility] Spine 1 View Any Levelon Spine 1 View Any Level Normal [facility] 12 Lead EKGon 06-07-2023 12 Lead EKG Normal [facility] Consultation - Orthopedicson 06-06-2023 Consultation - Orthopedics Normal [facility] CBC W/Diff, Automatedon 05-15 Absolute Lymph 1.25 X10 3/uL Normal 0.83-4.51 [facility] Comment on above: Performed By: #### L 500.4050, L100.0100 ####[facility] [address] [place], [address] Absolute Neut 9.4 X10 3/uL High 2.0-7.7 [facility] Comment on above: Performed By: #### L 500.4050, L100.0100 ####[facility] [address] [place], [address] Basophils/100 WBC (Bld) 0.4 % Normal 0-1 [facility] Comment on above: Performed By: #### L 500.4050, L100.0100 ####[facility] [address] [place], [address] Eosinophils/100 WBC (Bld) 0.4 % Normal 0-5 [facility] Comment on above: Performed By: #### L 500.4050, L100.0100 ####[facility] [address] [place], [address] Erythrocyte distribution width (RBC) [Ratio] 13.4 % Normal 11.6-14.6 [facility] Comment on above: Performed By: #### L 500.4050, L100.0100 ####[facility] [address] [place], [address] Hematocrit (Bld) [Volume fraction] 36.4 % Low 37-47 [facility] Comment on above: Performed By: #### L 500.4050, L100.0100 ####[facility] [address] [place], [address] Hemoglobin (Bld) [Mass/Vol] 11.4 g/dL Low 12.0-15.0 [facility] Comment on above: Performed By: #### L 500.4050, L100.0100 ####[facility] [address] [place], [address] IG% 0.500 Normal 0.0-0.9 [facility] Comment on above: Result Comment: IG% - Immature Granulocytes (promyelocytes, myelocytes andmetamyelocytes) > 1% indicates that a LEFT SHIFT is Present. Performed By: #### L 500.4050, L100.0100 ####[facility] [address] [place], [address] Lymphocytes/100 WBC (Bld) 11.0 % Low 19-41 [facility] Comment on above: Performed By: #### L 500.4050, L100.0100 ####[facility] [address] [place], [address] MCH (RBC) [Entitic mass] 27.1 pg Normal 27.0-32.0 [facility] Comment on above: Performed By: #### L 500.4050, L100.0100 ####[facility] [address] [place], [address] MCHC (RBC) [Mass/Vol] 31.3 g/dL Low 32-36 [facility] Comment on above: Performed By: #### L 500.4050, L100.0100 ####[facility] [address] [place], [address] MCV (RBC) [Entitic vol] 86.7 fL Normal 81-99 [facility] Comment on above: Performed By: #### L 500.4050, L100.0100 ####[facility] [address] [place], [address] Monocytes/100 WBC (Bld) 5.3 % Normal 0-10 [facility] Comment on above: Performed By: #### L 500.4050, L100.0100 ####[facility] [address] [place], [address] Neutrophils/100 WBC (Bld) 82.4 % High 47-70 [facility] Comment on above: Performed By: #### L 500.4050, L100.0100 ####[facility] [address] [place], [address] Nucleated RBC (Bld) [#/Vol] 0 10*3/uL Normal 0-5 [facility] Comment on above: Performed By: #### L 500.4050, L100.0100 ####[facility] [address] [place], [address] Platelet mean volume (Bld) [Entitic vol] 9.2 fL Normal 6.2-12.0 [facility] Comment on above: Performed By: #### L 500.4050, L100.0100 ####[facility] [address] [place], [address] Platelets (Bld) [#/Vol] 416 10*3/uL Normal 150-450 [facility] Comment on above: Performed By: #### L 500.4050, L100.0100 ####[facility] [address] [place], [address] RBC (Bld) [#/Vol] 4.20 10*6/uL Normal 4.2-5.4 [facility] Comment on above: Performed By: #### L 500.4050, L100.0100 ####[facility] [address] [place], [address] RDW SD 41.7 fl Normal 35.1-43.9 [facility] Comment on above: Performed By: #### L 500.4050, L100.0100 ####[facility] [address] [place], [address] WBC (Bld) [#/Vol] 11.4 10*3/uL High 4.4-11.0 [facility] Comment on above: Performed By: #### L 500.4050, L100.0100 ####[facility] [address] [place], [address] Comprehensive Metabolic Prof [facility] 06-05-2023 Albumin [Mass/Vol] 3.0 g/dL Low 3.2-5.0 [facility] Comment on above: Performed By: #### L 500.4050, L100.0100 ####[facility] [address] [place], [address] Albumin/Globulin [Mass ratio] 0.8 {ratio} Low 0.9-2.4 [facility] Comment on above: Performed By: #### L 500.4050, L100.0100 ####[facility] [address] [place], [address] ALK P 101 U/L Normal 45-117 [facility] Comment on above: Performed By: #### L 500.4050, L100.0100 ####[facility] [address] [place], [address] ALT [Catalytic activity/Vol] 44 U/L Normal 13-56 [facility] Comment on above: Performed By: #### L 500.4050, L100.0100 ####[facility] [address] [place], [address] AST [Catalytic activity/Vol] 28 U/L Normal 15-37 [facility] Comment on above: Performed By: #### L 500.4050, L100.0100 ####[facility] [address] [place], [address] Bilirubin [Mass/Vol] 0.40 mg/dL Normal 0.20-1.00 [facility] Comment on above: Result Comment: For patients on eltrombopag therapy, use of Dimension Bon [place]ier TBIL is not recommended. Performed By: #### L 500.4050, L100.0100 ####[facility] [address] [place], [address] BUN/CRE 29.1 RATIO High 10-20 [facility] Comment on above: Performed By: #### L 500.4050, L100.0100 ####[facility] [address] [place], [address] CA,Total 9.3 mg/dL Normal 8.5-10.1 [facility] Comment on above: Performed By: #### L 500.4050, L100.0100 ####[facility] [address] [place], [address] Chloride [Moles/Vol] 102 mmol/L Normal 98-107 [facility] Comment on above: Performed By: #### L 500.4050, L100.0100 ####[facility] [address] [place], [address] CO2 [Moles/Vol] 31.0 mmol/L Normal 21.0-32.0 [facility] Comment on above: Performed By: #### L 500.4050, L100.0100 ####[facility] [address] [place], [address] Creatinine [Mass/Vol] 0.58 mg/dL Normal 0.55-1.02 [facility] Comment on above: Result Comment: The validity of the calculated GFR GFRAA in patients over70 years has not been determined. Clinical correlation isessential. Performed By: #### L 500.4050, L100.0100 ####[facility] [address] [place], [address] ECRCL 87.49 ml/min Normal [facility] Comment on above: Performed By: #### L 500.4050, L100.0100 ####[facility] [address] [place], [address] EST GFR - AA 131 mL/min Normal >60 [facility] Comment on above: Result Comment: Afri can [place] GFR Calc Performed By: #### L 500.4050, L100.0100 ####[facility] [address] [place], [address] GAP 3 Low 5-15 [facility] Comment on above: Performed By: #### L 500.4050, L100.0100 ####[facility] [address] [place], [address] GFR/1.73 sq M.predicted among non-blacks MDRD (S/P/Bld) [Vol rate/Area] 108 mL/min/{1.73_m2} Normal >60 [facility] Comment on above: Result Comment: Non- GFR Calc Performed By: #### L 500.4050, L100.0100 ####[facility] [address] [place], [address] Globulin (S) [Mass/Vol] 3.7 g/dL Normal 2.2-4.2 [facility] Comment on above: Performed By: #### L 500.4050, L100.0100 ####[facility] [address] [place], [address] Glucose [Mass/Vol] 124 mg/dL High 74-106 [facility] Comment on above: Result Comment: Fast ing Glucose result from 100 to 125 mg/dLsuggests IMPAIRED HOMEOSTASIS per A.D.A. criteria. Performed By: #### L 500.4050, L100.0100 ####[facility] [address] [place], [address] Potassium [Moles/Vol] 4.7 mmol/L Normal 3.5-5.1 [facility] Comment on above: Performed By: #### L 500.4050, L100.0100 ####[facility] [address] [place], [address] Sodium [Moles/Vol] 136 mmol/L Normal 136-145 [facility] Comment on above: Performed By: #### L 500.4050, L100.0100 ####[facility] [address] [place], [address] T PROT 6.7 g/dL Normal 6.4-8.2 [facility] Comment on above: Performed By: #### L 500.4050, L100.0100 ####[facility] [address] [place], [address] Urea nitrogen [Mass/Vol] 17 mg/dL Normal 7-18 [facility] Comment on above: Performed By: #### L 500.4050, L100.0100 ####[facility] [address] [place], [address] Spine Lumbar (Routine)on Spine Lumbar (Routine) Normal [facility] CBC W/Diff, Automatedon 04- Absolute Lymph 0.63 X10 3/uL Low 0.83-4.51 [facility] Comment on above: Performed By: #### L 500.4050, L100.0100 ####[facility] [address] [place], [address] Absolute Neut 10.1 X10 3/uL High 2.0-7.7 [facility] Comment on above: Performed By: #### L 500.4050, L100.0100 ####[facility] [address] [place], [address] Basophils/100 WBC (Bld) 0.4 % Normal 0-1 [facility] Comment on above: Performed By: #### L 500.4050, L100.0100 ####[facility] [address] [place], [address] Eosinophils/100 WBC (Bld) 0.0 % Normal 0-5 [facility] Comment on above: Performed By: #### L 500.4050, L100.0100 ####[facility] [address] [place], [address] Erythrocyte distribution width (RBC) [Ratio] 13.5 % Normal 11.6-14.6 [facility] Comment on above: Performed By: #### L 500.4050, L100.0100 ####[facility] [address] [place], [address] Hematocrit (Bld) [Volume fraction] 35.1 % Low 37-47 [facility] Comment on above: Performed By: #### L 500.4050, L100.0100 ####[facility] [address] [place], [address] Hemoglobin (Bld) [Mass/Vol] 11.0 g/dL Low 12.0-15.0 [facility] Comment on above: Performed By: #### L 500.4050, L100.0100 ####[facility] [address] [place], [address] IG% 0.900 Normal 0.0-0.9 [facility] Comment on above: Result Comment: IG% - Immature Granulocytes (promyelocytes, myelocytes andmetamyelocytes) > 1% indicates that a LEFT SHIFT is Present. Performed By: #### L 500.4050, L100.0100 ####[facility] [address] [place], [address] Lymphocytes/100 WBC (Bld) 5.6 % Low 19-41 [facility] Comment on above: Performed By: #### L 500.4050, L100.0100 ####[facility] [address] [place], [address] MCH (RBC) [Entitic mass] 27.4 pg Normal 27.0-32.0 [facility] Comment on above: Performed By: #### L 500.4050, L100.0100 ####[facility] [address] [place], [address] MCHC (RBC) [Mass/Vol] 31.3 g/dL Low 32-36 [facility] Comment on above: Performed By: #### L 500.4050, L100.0100 ####[facility] [address] [place], [address] MCV (RBC) [Entitic vol] 87.5 fL Normal 81-99 [facility] Comment on above: Performed By: #### L 500.4050, L100.0100 ####[facility] [address] [place], [address] Monocytes/100 WBC (Bld) 3.3 % Normal 0-10 [facility] Comment on above: Performed By: #### L 500.4050, L100.0100 ####[facility] [address] [place], [address] Neutrophils/100 WBC (Bld) 89.8 % High 47-70 [facility] Comment on above: Performed By: #### L 500.4050, L100.0100 ####[facility] [address] [place], [address] Nucleated RBC (Bld) [#/Vol] 0 10*3/uL Normal 0-5 [facility] Comment on above: Performed By: #### L 500.4050, L100.0100 ####[facility] [address] [place], [address] Platelet mean volume (Bld) [Entitic vol] 9.2 fL Normal 6.2-12.0 [facility] Comment on above: Performed By: #### L 500.4050, L100.0100 ####[facility] [address] [place], [address] Platelets (Bld) [#/Vol] 366 10*3/uL Normal 150-450 [facility] Comment on above: Performed By: #### L 500.4050, L100.0100 ####[facility] [address] [place], [address] RBC (Bld) [#/Vol] 4.01 10*6/uL Low 4.2-5.4 [facility] Comment on above: Performed By: #### L 500.4050, L100.0100 ####[facility] [address] [place], [address] RDW SD 43.4 fl Normal 35.1-43.9 [facility] Comment on above: Performed By: #### L 500.4050, L100.0100 ####[facility] [address] [place], [address] WBC (Bld) [#/Vol] 11.2 10*3/uL High 4.4-11.0 [facility] Comment on above: Performed By: #### L 500.4050, L100.0100 ####[facility] [address] [place], [address] Comprehensive Metabolic Prof ilon 06-04-2023 Albumin [Mass/Vol] 2.7 g/dL Low 3.2-5.0 [facility] Comment on above: Performed By: #### L 500.4050, L100.0100 ####[facility] [address] [place], [address] Albumin/Globulin [Mass ratio] 0.8 {ratio} Low 0.9-2.4 [facility] Comment on above: Performed By: #### L 500.4050, L100.0100 ####[facility] [address] [place], [address] ALK P 94 U/L Normal 45-117 [facility] Comment on above: Performed By: #### L 500.4050, L100.0100 ####[facility] [address] [place], [address] ALT [Catalytic activity/Vol] 39 U/L Normal 13-56 [facility] Comment on above: Performed By: #### L 500.4050, L100.0100 ####[facility] [address] [place], [address] AST [Catalytic activity/Vol] 29 U/L Normal 15-37 [facility] Comment on above: Performed By: #### L 500.4050, L100.0100 ####[facility] [address] [place], [address] Bilirubin [Mass/Vol] 0.40 mg/dL Normal 0.20-1.00 [facility] Comment on above: Result Comment: For patients on eltrombopag therapy, use of Dimension Bon Wier TBIL is not recommended. Performed By: #### L 500.4050, L100.0100 ####[facility] [address] [place], [address] BUN/CRE 32.2 RATIO High 10-20 [facility] Comment on above: Performed By: #### L 500.4050, L100.0100 ####[facility] [address] [place], [address] CA,Total 9.0 mg/dL Normal 8.5-10.1 [facility] Comment on above: Performed By: #### L 500.4050, L100.0100 ####[facility] [address] [place], [address] Chloride [Moles/Vol] 105 mmol/L Normal 98-107 [facility] Comment on above: Performed By: #### L 500.4050, L100.0100 ####[facility] [address] [place], [address] CO2 [Moles/Vol] 29.0 mmol/L Normal 21.0-32.0 [facility] Comment on above: Performed By: #### L 500.4050, L100.0100 ####[facility] [address] [place], [address] Creatinine [Mass/Vol] 0.53 mg/dL Low 0.55-1.02 [facility] Comment on above: Result Comment: The validity of the calculated GFR GFRAA in patients over70 years has not been determined. Clinical correlation isessential. Performed By: #### L 500.4050, L100.0100 ####[facility] [address] [place], [address] ECRCL 87.82 ml/min Normal [facility] Comment on above: Performed By: #### L 500.4050, L100.0100 ####[facility] [address] [place], [address] EST GFR - AA 148 mL/min Normal >60 [facility] Comment on above: Result Comment: Afri can Guatemalan GFR Calc Performed By: #### L 500.4050, L100.0100 ####[facility] [address] [place], [address] GAP 2 Low 5-15 [facility] Comment on above: Performed By: #### L 500.4050, L100.0100 ####[facility] [address] [place], [address] GFR/1.73 sq M.predicted among non-blacks MDRD (S/P/Bld) [Vol rate/Area] 122 mL/min/{1.73_m2} Normal >60 [facility] Comment on above: Result Comment: Non- GFR Calc Performed By: #### L 500.4050, L100.0100 ####[facility] [address] [place], [address] Globulin (S) [Mass/Vol] 3.6 g/dL Normal 2.2-4.2 [facility] Comment on above: Performed By: #### L 500.4050, L100.0100 ####[facility] [address] [place], [address] Glucose [Mass/Vol] 158 mg/dL High 74-106 [facility] Comment on above: Result Comment: Fast ing Glucose result greater than or equal to 126 mg/dLsuggests DIABETES MELLITUS per A.D.A. criteria. Performed By: #### L 500.4050, L100.0100 ####[facility] [address] [place], [address] Potassium [Moles/Vol] 4.9 mmol/L Normal 3.5-5.1 [facility] Comment on above: Performed By: #### L 500.4050, L100.0100 ####[facility] [address] [place], [address] Sodium [Moles/Vol] 136 mmol/L Normal 136-145 [facility] Comment on above: Performed By: #### L 500.4050, L100.0100 ####[facility] [address] [place], [address] T PROT 6.3 g/dL Low 6.4-8.2 [facility] Comment on above: Performed By: #### L 500.4050, L100.0100 ####[facility] [address] [place], [address] Urea nitrogen [Mass/Vol] 17 mg/dL Normal 7-18 [facility] Comment on above: Performed By: #### L 500.4050, L100.0100 ####[facility] [address] [place], [address] CBC W/Diff, Automatedon 04-2 0-2024 Absolute Lymph 0.55 X10 3/uL Low 0.83-4.51 [facility] Comment on above: Performed By: #### L 500.4050, L100.0100 ####[facility] [address] [place], [address] Absolute Neut 9.5 X10 3/uL High 2.0-7.7 [facility] Comment on above: Performed By: #### L 500.4050, L100.0100 ####[facility] [address] [place], [address] Basophils/100 WBC (Bld) 0.4 % Normal 0-1 [facility] Comment on above: Performed By: #### L 500.4050, L100.0100 ####[facility] [address] [place], [address] Eosinophils/100 WBC (Bld) 0.9 % Normal 0-5 [facility] Comment on above: Performed By: #### L 500.4050, L100.0100 ####[facility] [address] [place], [address] Erythrocyte distribution width (RBC) [Ratio] 13.9 % Normal 11.6-14.6 [facility] Comment on above: Performed By: #### L 500.4050, L100.0100 ####[facility] [address] [place], [address] Hematocrit (Bld) [Volume fraction] 33.4 % Low 37-47 [facility] Comment on above: Performed By: #### L 500.4050, L100.0100 ####[facility] [address] [place], [address] Hemoglobin (Bld) [Mass/Vol] 10.3 g/dL Low 12.0-15.0 [facility] Comment on above: Performed By: #### L 500.4050, L100.0100 ####[facility] [address] [place], [address] IG% 0.700 Normal 0.0-0.9 [facility] Comment on above: Result Comment: IG% - Immature Granulocytes (promyelocytes, myelocytes andmetamyelocytes) > 1% indicates that a LEFT SHIFT is Present. Performed By: #### L 500.4050, L100.0100 ####[facility] [address] [place], [address] Lymphocytes/100 WBC (Bld) 5.3 % Low 19-41 [facility] Comment on above: Performed By: #### L 500.4050, L100.0100 ####[facility] [address] [place], [address] MCH (RBC) [Entitic mass] 26.9 pg Low 27.0-32.0 [facility] Comment on above: Performed By: #### L 500.4050, L100.0100 ####[facility] [address] [place], [address] MCHC (RBC) [Mass/Vol] 30.8 g/dL Low 32-36 [facility] Comment on above: Performed By: #### L 500.4050, L100.0100 ####[facility] [address] [place], [address] MCV (RBC) [Entitic vol] 87.2 fL Normal 81-99 [facility] Comment on above: Performed By: #### L 500.4050, L100.0100 ####[facility] [address] [place], [address] Monocytes/100 WBC (Bld) 2.0 % Normal 0-10 [facility] Comment on above: Performed By: #### L 500.4050, L100.0100 ####[facility] [address] [place], [address] Neutrophils/100 WBC (Bld) 90.7 % High 47-70 [facility] Comment on above: Performed By: #### L 500.4050, L100.0100 ####[facility] [address] [place], [address] Nucleated RBC (Bld) [#/Vol] 0 10*3/uL Normal 0-5 [facility] Comment on above: Performed By: #### L 500.4050, L100.0100 ####[facility] [address] [place], [address] Platelet mean volume (Bld) [Entitic vol] 9.4 fL Normal 6.2-12.0 [facility] Comment on above: Performed By: #### L 500.4050, L100.0100 ####[facility] [address] [place], [address] Platelets (Bld) [#/Vol] 336 10*3/uL Normal 150-450 [facility] Comment on above: Performed By: #### L 500.4050, L100.0100 ####[facility] [address] [place], [address] RBC (Bld) [#/Vol] 3.83 10*6/uL Low 4.2-5.4 [facility] Comment on above: Performed By: #### L 500.4050, L100.0100 ####[facility] [address] [place], [address] RDW SD 43.8 fl Normal 35.1-43.9 [facility] Comment on above: Performed By: #### L 500.4050, L100.0100 ####[facility] [address] [place], [address] WBC (Bld) [#/Vol] 10.4 10*3/uL Normal 4.4-11.0 [facility] Comment on above: Performed By: #### L 500.4050, L100.0100 ####[facility] [address] [place], [address] [facility] Albumin [Mass/Vol] 3.1 g/dL Low 3.2-5.0 [facility] Comment on above: Performed By: #### L 500.4050, L100.0100 ####[facility] [address] [place], [address] Albumin/Globulin [Mass ratio] 0.9 {ratio} Normal 0.9-2.4 [facility] Comment on above: Performed By: #### L 500.4050, L100.0100 ####[facility] [address] [place], [address] ALK P 101 U/L Normal 45-117 [facility] Comment on above: Performed By: #### L 500.4050, L100.0100 ####[facility] [address] [place], [address] ALT [Catalytic activity/Vol] 42 U/L Normal 13-56 [facility] Comment on above: Performed By: #### L 500.4050, L100.0100 ####[facility] [address] [place], [address] AST [Catalytic activity/Vol] 43 U/L High 15-37 [facility] Comment on above: Performed By: #### L 500.4050, L100.0100 ####[facility] [address] [place], [address] Bilirubin [Mass/Vol] 0.60 mg/dL Normal 0.20-1.00 [facility] Comment on above: Result Comment: For patients on eltrombopag therapy, use of Dimension Bon Wier TBIL is not recommended. Performed By: #### L 500.4050, L100.0100 ####[facility] [address] [place], [address] BUN/CRE 42.7 RATIO High 10-20 [facility] Comment on above: Performed By: #### L 500.4050, L100.0100 ####[facility] [address] [place], [address] CA,Total 9.3 mg/dL Normal 8.5-10.1 [facility] Comment on above: Performed By: #### L 500.4050, L100.0100 ####[facility] [address] [place], [address] Chloride [Moles/Vol] 106 mmol/L Normal 98-107 [facility] Comment on above: Performed By: #### L 500.4050, L100.0100 ####[facility] [address] [place], [address] CO2 [Moles/Vol] 27.0 mmol/L Normal 21.0-32.0 [facility] Comment on above: Performed By: #### L 500.4050, L100.0100 ####[facility] [address] [place], [address] Creatinine [Mass/Vol] 0.56 mg/dL Normal 0.55-1.02 [facility] Comment on above: Result Comment: The validity of the calculated GFR GFRAA in patients over70 years has not been determined. Clinical correlation isessential. Performed By: #### L 500.4050, L100.0100 ####[facility] [address] [place], [address] ECRCL 87.82 ml/min Normal [facility] Comment on above: Performed By: #### L 500.4050, L100.0100 ####[facility] [address] [place], [address] EST GFR - AA 137 mL/min Normal >60 [facility] Comment on above: Result Comment: Afri can [place] GFR Calc Performed By: #### L 500.4050, L100.0100 ####[facility] [address] [place], [address] GAP 3 Low 5-15 [facility] Comment on above: Performed By: #### L 500.4050, L100.0100 ####[facility] [address] [place], [address] GFR/1.73 sq M.predicted among non-blacks MDRD (S/P/Bld) [Vol rate/Area] 114 mL/min/{1.73_m2} Normal >60 [facility] Comment on above: Result Comment: Non- GFR Calc Performed By: #### L 500.4050, L100.0100 ####[facility] [address] [place], [address] Globulin (S) [Mass/Vol] 3.5 g/dL Normal 2.2-4.2 [facility] Comment on above: Performed By: #### L 500.4050, L100.0100 ####[facility] [address] [place], [address] Glucose [Mass/Vol] 144 mg/dL High 74-106 [facility] Comment on above: Result Comment: Fast ing Glucose result greater than or equal to 126 mg/dLsuggests DIABETES MELLITUS per A.D.A. criteria. Performed By: #### L 500.4050, L100.0100 ####[facility] [address] [place], [address] Potassium [Moles/Vol] 4.5 mmol/L Normal 3.5-5.1 [facility] Comment on above: Performed By: #### L 500.4050, L100.0100 ####[facility] [address] [place], [address] Sodium [Moles/Vol] 136 mmol/L Normal 136-145 [facility] Comment on above: Performed By: #### L 500.4050, L100.0100 ####[facility] [address] [place], [address] T PROT 6.6 g/dL Normal 6.4-8.2 [facility] Comment on above: Performed By: #### L 500.4050, L100.0100 ####[facility] [address] [place], [address] Urea nitrogen [Mass/Vol] 24 mg/dL High 7-18 [facility] Comment on above: Performed By: #### L 500.4050, L100.0100 ####[facility] [address] [place], [address] Absolute lymphocyte countOrd ered By: Estebna Martinez on 06-02-2023 Lymphocytes Auto (Unsp spec) [#/Vol] 1.18 10*3/uL 0.83-4.51 [facility] Automated lymphocyte count a s percentage of total leukocytesOrdered By: Esteban Martinez on 06-02-2023 Lymphocytes/100 WBC Auto (Unsp spec) 8.3 % 19-41 [facility] Basophil percentageOrdered B y: Esteban Martinez on 06-02-2023 Basophil percentage 0-5 SEEN /hpf 0-5 [facility] Basophils/100 WBC (Bld) 0.4 % 0-1 [facility] Bilirubin [Mass/Vol] 0.60 mg/dL 0.20-1.00 [facility] Comment on above: For patients on eltr ombopag therapy, use of Dimension [place]ier TBIL is not recommended. Chloride [Moles/Vol] 106 mmol/L 98-107 [facility] Eosinophils/100 WBC (Bld) 1.5 % 0-5 [facility] Glucose [Mass/Vol] 104 mg/dL 74-106 [facility] Comment on above: Fasting Glucose resu lt from 100 to 125 mg/dL suggests IMPAIRED HOMEOSTASIS per A.D.A. criteria. Hemoglobin (Bld) [Mass/Vol] 11.1 g/dL 12.0-15.0 [facility] Monocytes/100 WBC (Bld) 7.0 % 0-10 [facility] Neutrophils (Bld) [#/Vol] 11.7 10*3/uL 2.0-7.7 [facility] Neutrophils/100 WBC (Bld) 82.4 % 47-70 [facility] Potassium [Moles/Vol] 4.4 mmol/L 3.5-5.1 [facility] Protein [Mass/Vol] 7.0 g/dL 6.4-8.2 [facility] Sodium [Moles/Vol] 139 mmol/L 136-145 [facility] WBC (Bld) [#/Vol] 14.1 10*3/uL 4.4-11.0 [facility] Bilirubin Test strip Ql (U)O rdered By: Esteban Martinez on 06-02-2023 Bilirubin Ql (U) Negative Negative [facility] CBC W/Diff, Automatedon 05-14 Absolute Lymph 1.18 X10 3/uL Normal 0.83-4.51 [facility] Comment on above: Performed By: #### L 500.4050, L100.0100 ####[facility] [address] [place], [address] Absolute Neut 11.7 X10 3/uL High 2.0-7.7 [facility] Comment on above: Performed By: #### L 500.4050, L100.0100 ####[facility] [address] [place], [address] Basophils/100 WBC (Bld) 0.4 % Normal 0-1 [facility] Comment on above: Performed By: #### L 500.4050, L100.0100 ####[facility] [address] [place], [address] Eosinophils/100 WBC (Bld) 1.5 % Normal 0-5 [facility] Comment on above: Performed By: #### L 500.4050, L100.0100 ####[facility] [address] [place], [address] Erythrocyte distribution width (RBC) [Ratio] 13.8 % Normal 11.6-14.6 [facility] Comment on above: Performed By: #### L 500.4050, L100.0100 ####[facility] [address] [place], [address] Hematocrit (Bld) [Volume fraction] 34.8 % Low 37-47 [facility] Comment on above: Performed By: #### L 500.4050, L100.0100 ####[facility] [address] [place], [address] Hemoglobin (Bld) [Mass/Vol] 11.1 g/dL Low 12.0-15.0 [facility] Comment on above: Performed By: #### L 500.4050, L100.0100 ####[facility] [address] [place], [address] IG% 0.400 Normal 0.0-0.9 [facility] Comment on above: Result Comment: IG% - Immature Granulocytes (promyelocytes, myelocytes andmetamyelocytes) > 1% indicates that a LEFT SHIFT is Present. Performed By: #### L 500.4050, L100.0100 ####[facility] [address] [place], [address] Lymphocytes/100 WBC (Bld) 8.3 % Low 19-41 [facility] Comment on above: Performed By: #### L 500.4050, L100.0100 ####[facility] [address] [place], [address] MCH (RBC) [Entitic mass] 27.5 pg Normal 27.0-32.0 [facility] Comment on above: Performed By: #### L 500.4050, L100.0100 ####[facility] [address] [place], [address] MCHC (RBC) [Mass/Vol] 31.9 g/dL Low 32-36 [facility] Comment on above: Performed By: #### L 500.4050, L100.0100 ####[facility] [address] [place], [address] MCV (RBC) [Entitic vol] 86.4 fL Normal 81-99 [facility] Comment on above: Performed By: #### L 500.4050, L100.0100 ####[facility] [address] [place], [address] Monocytes/100 WBC (Bld) 7.0 % Normal 0-10 [facility] Comment on above: Performed By: #### L 500.4050, L100.0100 ####[facility] [address] [place], [address] Neutrophils/100 WBC (Bld) 82.4 % High 47-70 [facility] Comment on above: Performed By: #### L 500.4050, L100.0100 ####[facility] [address] [place], [address] Nucleated RBC (Bld) [#/Vol] 0 10*3/uL Normal 0-5 [facility] Comment on above: Performed By: #### L 500.4050, L100.0100 ####[facility] [address] [place], [address] Platelet mean volume (Bld) [Entitic vol] 9.0 fL Normal 6.2-12.0 [facility] Comment on above: Performed By: #### L 500.4050, L100.0100 ####[facility] [address] [place], [address] Platelets (Bld) [#/Vol] 370 10*3/uL Normal 150-450 [facility] Comment on above: Performed By: #### L 500.4050, L100.0100 ####[facility] [address] [place], [address] RBC (Bld) [#/Vol] 4.03 10*6/uL Low 4.2-5.4 [facility] Comment on above: Performed By: #### L [id number], L100.0100 ####[facility] [address] [place], [address] RDW SD 42.9 fl Normal 35.1-43.9 [facility] Comment on above: Performed By: #### L [id number], L100.0100 ####[facility] [address] [place], [address] WBC (Bld) [#/Vol] 14.1 10*3/uL High 4.4-11.0 [facility] Comment on above: Performed By: #### L [id number], L100.0100 ####[facility] [address] [place], [address] Comprehensive Metabolic Prof ilon 06-02-2023 Albumin [Mass/Vol] 3.4 g/dL Normal 3.2-5.0 [facility] Comment on above: Performed By: #### L [id number], L100.0100 ####[facility] [address] [place], [address] Albumin/Globulin [Mass ratio] 0.9 {ratio} Normal 0.9-2.4 [facility] Comment on above: Performed By: #### L [id number], L100.0100 ####[facility] [address] [place], [address] ALK P 105 U/L Normal 45-117 [facility] Comment on above: Performed By: #### L [id number], L100.0100 ####[facility] [address] [place], [address] ALT [Catalytic activity/Vol] 43 U/L Normal 13-56 [facility] Comment on above: Performed By: #### L [id number], L100.0100 ####[facility] [address] [place], [address] AST [Catalytic activity/Vol] 54 U/L High 15-37 [facility] Comment on above: Performed By: #### L [id number], L100.0100 ####[facility] [address] [place], [address] Bilirubin [Mass/Vol] 0.60 mg/dL Normal 0.20-1.00 [facility] Comment on above: Result Comment: For patients on eltrombopag therapy, use of Dimension [place] TBIL is not recommended. Performed By: #### L [id number], L100.0100 ####[facility] [address] [place], [address] BUN/CRE 45.4 RATIO High 10-20 [facility] Comment on above: Performed By: #### L [id number], L100.0100 ####[facility] [address] [place], [address] CA,Total 9.4 mg/dL Normal 8.5-10.1 [facility] Comment on above: Performed By: #### L [id number], L100.0100 ####[facility] [address] [place], [address] Chloride [Moles/Vol] 106 mmol/L Normal 98-107 [facility] Comment on above: Performed By: #### L [id number], L100.0100 ####[facility] [address] [place], [address] CO2 [Moles/Vol] 25.0 mmol/L Normal 21.0-32.0 [facility] Comment on above: Performed By: #### L [id number], L100.0100 ####[facility] [address] [place], [address] Creatinine [Mass/Vol] 0.62 mg/dL Normal 0.55-1.02 [facility] Comment on above: Result Comment: The validity of the calculated GFR GFRAA in patients over70 years has not been determined. Clinical correlation isessential. Performed By: #### L [id number], L100.0100 ####[facility] [address] [place], [address] ECRCL 89.41 ml/min Normal [facility] Comment on above: Performed By: #### L [id number], L100.0100 ####[facility] [address] [place], [address] EST GFR - AA 123 mL/min Normal >60 [facility] Comment on above: Result Comment: Afri can [place] GFR Calc Performed By: #### L [id number], L100.0100 ####[facility] [address] [place], [address] GAP 8 Normal 5-15 [facility] Comment on above: Performed By: #### L [id number], L100.0100 ####[facility] [address] [place], [address] GFR/1.73 sq M.predicted among non-blacks MDRD (S/P/Bld) [Vol rate/Area] 102 mL/min/{1.73_m2} Normal >60 [facility] Comment on above: Result Comment: Non- GFR Calc Performed By: #### L [id number], L100.0100 ####[facility] [address] [place], [address] Globulin (S) [Mass/Vol] 3.6 g/dL Normal 2.2-4.2 [facility] Comment on above: Performed By: #### L [id number], L100.0100 ####[facility] [address] [place], [address] Glucose [Mass/Vol] 104 mg/dL Normal 74-106 [facility] Comment on above: Result Comment: Fast ing Glucose result from 100 to 125 mg/dLsuggests IMPAIRED HOMEOSTASIS per A.D.A. criteria. Performed By: #### L [id number], L100.0100 ####[facility] [address] [place], [address] Potassium [Moles/Vol] 4.4 mmol/L Normal 3.5-5.1 [facility] Comment on above: Performed By: #### L 500.4050, L100.0100 ####[facility] [address] [place], [address] Sodium [Moles/Vol] 139 mmol/L Normal 136-145 [facility] Comment on above: Performed By: #### L [id number], L100.0100 ####[facility] [address] [place], [address] T PROT 7.0 g/dL Normal 6.4-8.2 [facility] Comment on above: Performed By: #### L [id number], L100.0100 ####[facility] [address] [place], [address] Urea nitrogen [Mass/Vol] 28 mg/dL High 7-18 [facility] Comment on above: Performed By: #### L [id number], L100.0100 ####[facility] [address] [place], [address] Determination of erythrocyte mean corpuscular volume (MCV)Ordered By: Esteban Martinez on 06-02-2023 MCV (RBC) [Entitic vol] 86.4 fL 81-99 [facility] Emergency Department Summary on 06-02-2023 Emergency Department Summary Normal [facility] Erythrocyte distribution wid th ratioOrdered By: Esteban Martinez on 06-02-2023 Erythrocyte distribution width (RBC) [Ratio] 13.8 % 11.6-14.6 [facility] Erythrocyte distribution wid th standard deviationOrdered By: Esteban Martinez on 06-02-2023 Erythrocyte distribution width (RBC) [Entitic vol] 42.9 fL 35.1-43.9 [facility] H AND P Exam - Hospitaliston 06-02-2023 H&P Exam - Hospitalist Normal [facility] Hematocrit Auto (Bld) [Volum e fraction]Ordered By: Esteban Martinez on 06-02-2023 Hematocrit (Bld) [Volume fraction] 34.8 % 37-47 [facility] Immature granulocytes/100 WB C Auto (Bld)Ordered By: Esteban Martinez on 06-02-2023 Immature granulocytes/100 WBC (Bld) 0.400 % 0.0-0.9 [facility] Comment on above: IG% - Immature Granu locytes (promyelocytes, myelocytes and metamyelocytes) > 1% indicates that a LEFT SHIFT is Present. Ketones Test strip Ql (U)Ord ered By: Esteban Martinez on 06-02-2023 Ketones Ql (U) 50 mg/dl Negative [facility] - Chemistry and C hemistry - challengeOrdered By: Esteban Martinez on 06-02-2023 Albumin/Globulin [Mass ratio] 0.9 {ratio} 0.9-2.4 [facility] ALP [Catalytic activity/Vol] 105 U/L 45-117 [facility] ALT [Catalytic activity/Vol] 43 U/L 13-56 [facility] CO2 [Moles/Vol] 25.0 mmol/L 21.0-32.0 [facility] Globulin (S) [Mass/Vol] 3.6 g/dL 2.2-4.2 [facility] Urea nitrogen/Creatinine [Mass ratio] 45.4 mg/mg 10-20 [facility] - Hematology and Cell countsOrdered By: Esteban Martinez on 06-02-2023 MCH (RBC) [Entitic mass] 27.5 pg 27.0-32.0 [facility] MCHC (RBC) [Mass/Vol] 31.9 g/dL 32-36 [facility] Nucleated RBC/100 WBC (Bld) [Ratio] 0 % 0-5 [facility] Platelet mean volume (Bld) [Entitic vol] 9.0 fL 6.2-12.0 [facility] Platelets (Bld) [#/Vol] 370 10*3/uL 150-450 [facility] Lumbar Spine 2 or 3 Viewson 06-02-2023 Lumbar Spine 2 or 3 Views Normal [facility] Mucus LM Ql (Urine sed)Order ed By: Esteban Martinez on 06-02-2023 Mucus Ql (Urine sed) 1+ /hpf [facility] Nitrite Test strip Ql (U)Ord ered By: Esteban Martinez on 06-02-2023 Nitrite Ql (U) Negative Negative [facility] No Panel InformationOrdered By: Esteban Martinez on 06-02-2023 Estimated Creatinine Clearance Calc 89.41 ml/min [facility] Estimated GFR (MDRD) Amer 123 mL/min >60 [facility] Comment on above: GFR Calc Estimated GFR (MDRD) Non-Af Amer 102 mL/min >60 [facility] Comment on above: Non- GFR Calc Urine RBC 0-5 SEEN /hpf 0-5 [facility] Protein Test strip Ql (U)Ord ered By: Esteban Martinez on 06-02-2023 Protein Ql (U) 30 mg/dl Negative [facility] RBC Auto (Bld) [#/Vol]Ordere d By: Esteban Martinez on 06-02-2023 RBC (Bld) [#/Vol] 4.03 10*6/uL 4.2-5.4 [facility] Serum or plasma calcium rui urement (mass/volume)Ordered By: Esteban Martinez on 06-02-2023 Calcium [Mass/Vol] 9.4 mg/dL 8.5-10.1 [facility] Serum or plasma creatinine m easurement (mass/volume)Ordered By: Esteban Martinez on 06-02-2023 Creatinine [Mass/Vol] 0.62 mg/dL 0.55-1.02 [facility] Comment on above: The validity of the calculated GFR & GFRAA in patients over 70 years has not been determined. Clinical correlation is essential. Serum or plasma urea nitroge n measurement (mass/volume)Ordered By: Esteban Martinez on 06-02-2023 Urea nitrogen [Mass/Vol] 28 mg/dL 7-18 [facility] Squamous epithelial cells de tection in urine sediment by light microscopyOrdered By: Esteban Martinez on 06-02-2023 Epithelial cells.squamous LM Ql (Urine sed) 0 SEEN /hpf 5-10 [facility] Thin prep Papanicolaou smear with manual screeningOrdered By: Esteban Martinez on 06-02-2023 Thin prep Papanicolaou smear with manual screening 3.4 g/dL 3.2-5.0 [facility] Thin prep Papanicolaou smear with manual screening 54 U/L 15-37 [facility] Thin prep Papanicolaou smear with manual screening 8 5-15 [facility] Urinalysis, Completeon 06-01 BACTERIA RARE Normal None Seen [facility] Comment on above: Order Comment: MARTHA CTOR TO SPECIFY Performed By: #### L 400.0001 ####[facility] [address] [place], [address] WBC 0-5 SEEN Normal 0-5 [facility] Comment on above: Order Comment: MARTHA CTOR TO SPECIFY Performed By: #### L [id number] ####[facility] [address] [place], [address] Mucus Ql (Urine sed) 1+ /hpf Normal [facility] Comment on above: Order Comment: MARTHA CTOR TO SPECIFY Performed By: #### L 400.0001 ####[facility] [address] [place], [address] RBC 0-5 SEEN Normal 0-5 [facility] Comment on above: Order Comment: MARTHA CTOR TO SPECIFY Performed By: #### L [id number] ####[facility] [address] [place], [address] EPI,SQUAMOUS 0 SEEN Normal 5-10 [facility] Comment on above: Order Comment: MARTHA CTOR TO SPECIFY Performed By: #### L [id number] ####[facility] [address] [place], [address] Urine blood detectionOrdered By: Esteban Martinez on 06-02-2023 RBC Ql (U) 10 /ul Negative [facility] Urine clarityOrdered By: Linda Martinez on 06-02-2023 Clarity (U) Clear Clear [facility] Urine color determinationOrd ered By: Esteban Martinez on 06-02-2023 Color (U) Yellow Yellow [facility] Urine glucose detectionOrder ed By: Esteban Martinez on 06-02-2023 Glucose Ql (U) Normal mg/dl Normal [facility] Urine leukocyte esterase det ection by dipstickOrdered By: Esteban Martinez on 06-02-2023 Leukocyte esterase Test strip Ql (U) 25 /ul Negative [facility] Urine pHOrdered By: Esteban antonio on 06-02-2023 pH (U) 6.0 [pH] 5.0 - 8.0 [facility] Urine sediment bacteria coun t by microscopy (number/high power field)Ordered By: Esteban Martinez on 06-02-2023 Bacteria LM.HPF (Urine sed) [#/Area] RARE /hpf None Seen [facility] Urine specific gravity measu rementOrdered By: Esteban Martinez on 06-02-2023 Specific gravity (U) [Rel density] 1.020 1.002-1.030 [facility] Urine urobilinogen measureme ntOrdered By: Esteban Martinez on 06-02-2023 Urobilinogen Ql (U) 1 mg/dl Normal [facility] Emergency Department Summary on 05-02-2023 Emergency Department Summary Normal [facility] Lumbar Spine 2 or 3 Viewson 05-02-2023 Lumbar Spine 2 or 3 Views Normal [facility] Pelvis 1 or 2 Viewson 2023 Pelvis 1 or 2 Views Normal [facility] CBC W Auto Differential pane l (Bld)on 07-18-2022 Basophils (Bld) [#/Vol] 0.11 10*3/uL High <0.11 k/uL [facility] Basophils/100 WBC (Bld) 1.0 % [facility] Differential cell count method Nom (Bld) Auto [facility] Eosinophils (Bld) [#/Vol] 0.28 10*3/uL <0.46 k/uL [facility] Eosinophils/100 WBC (Bld) 2.5 % [facility] Erythrocyte distribution width (RBC) [Ratio] 13.0 % 11.5 - 15.0 % [facility] Hematocrit (Bld) [Volume fraction] 41.9 % 36.0 - 46.0 % [facility] Hemoglobin (Bld) [Mass/Vol] 13.1 g/dL 11.5 - 15.5 g/dL [facility] Immature granulocytes (Bld) [#/Vol] 0.03 10*3/uL <0.10 k/uL [facility] Immature granulocytes/100 WBC (Bld) 0.3 % [facility] Lymphocytes (Bld) [#/Vol] 1.98 10*3/uL 1.00 - 4.00 k/uL [facility] Lymphocytes/100 WBC (Bld) 17.8 % [facility] MCH (RBC) [Entitic mass] 28.0 pg 26.0 - 34.0 pg [facility] MCHC (RBC) [Mass/Vol] 31.3 g/dL 30.5 - 36.0 g/dL [facility] MCV (RBC) [Entitic vol] 89.5 fL 80.0 - 100.0 fL [facility] Monocytes (Bld) [#/Vol] 0.52 10*3/uL <0.87 k/uL [facility] Monocytes/100 WBC (Bld) 4.7 % [facility] Neutrophils (Bld) [#/Vol] 8.22 10*3/uL High 1.45 - 7.50 k/uL [facility] Neutrophils/100 WBC (Bld) 73.7 % [facility] Nucleated RBC (Bld) [#/Vol] <0.01 k/uL [facility] Nucleated RBC/100 WBC (Bld) [Ratio] 0.0 /100 WBC [facility] Platelet mean volume (Bld) [Entitic vol] 9.7 fL 9.0 - 12.7 fL [facility] Platelets (Bld) [#/Vol] 268 10*3/uL 150 - 400 k/uL [facility] RBC (Bld) [#/Vol] 4.68 10*6/uL 3.90 - 5.2 0 m/uL [facility] WBC (Bld) [#/Vol] 11.14 10*3/uL High 3.70 - 11.00 k/uL [facility] XR Thoracic spine AP and Lat eralon 07-20-2021 IMPRESSION: Limited examination. Surgical hardware transfixing what is thought to represent T9, T10 and T11 is intact. 45-mm anterolisthesis of T9 on T10 and T10 on T11 now noted. Senior Quality Assurance Analyst: WOO Transcribe Date/Time: Jul 20 2021 3:17P Dictated by : NIMESH SHARP MD This examination was interpreted and the report reviewed and electronically signed by: NIMESH SHARP MD on Jul 20 2021 3:27PM EST [email or web address] SE_DIVISION OF RADIOLOGY * * *Final Report* * * DATE OF EXAM: Jul 20 2021 1:46PM WOX [id number] - XR THORACIC 2V AP/LAT / PROCEDURE REASON: multiple diagnoses * * * * Physician Interpretation * * * * EXAMINATION: XR THORACIC 2V AP/LAT HISTORY: Follow up to surgery. Leg weakness. Spondylosis with myelopathy, thoracic region. Leg weakness, bilateral. Fusion of spine of thoracic region . TECHNIQUE: XR THORACIC 2V AP/LAT Laterality: NOT APPLICABLE Number of different views (projections): 2 M: XB_1 COMPARISON: Comparison is made to prior thoracic spine dated 11/24/2020 LIMITATIONS: Study is limited especially in the AP view due to underpenetration. RESULT: AP and lateral views of the thoracic spine demonstrate osteopenia and scoliotic curvature. Posterior fusion hardware transfixes what is thought to represent T9, T10 and T11. Visualized surgical hardware is intact and there is no radiographic evidence for loosening or superimposed fracture. Mildly accentuated dorsal kyphosis and with a 4-5 mm anterolisthesis of T9 on T10 and T10 on T11 is now noted. [email or web address] _DIVISION OF RADIOLOGY Provider, [facility] - 07/20/2021 * * *Final Report* * * DATE OF EXAM: Jul 20 2021 1:46PM WOX [id number] - XR THORACIC 2V AP/LAT / PROCEDURE REASON: multiple diagnoses * * * * Physician Interpretation * * * * EXAMINATION: XR THORACIC 2V AP/LAT HISTORY: Follow up to surgery. Leg weakness. Spondylosis with myelopathy, thoracic region. Leg weakness, bilateral. Fusion of spine of thoracic region . TECHNIQUE: XR THORACIC 2V AP/LAT Laterality: NOT APPLICABLE Number of different views (projections): 2 M: XB_1 COMPARISON: Comparison is made to prior thoracic spine dated 11/24/2020 LIMITATIONS: Study is limited especially in the AP view due to underpenetration. RESULT: AP and lateral views of the thoracic spine demonstrate osteopenia and scoliotic curvature. Posterior fusion hardware transfixes what is thought to represent T9, T10 and T11. Visualized surgical hardware is intact and there is no radiographic evidence for loosening or superimposed fracture. Mildly accentuated dorsal kyphosis and with a 4-5 mm anterolisthesis of T9 on T10 and T10 on T11 is now noted. IMPRESSION IMPRESSION: Limited examination. Surgical hardware transfixing what is thought to represent T9, T10 and T11 is intact. 45-mm anterolisthesis of T9 on T10 and T10 on T11 now noted. Senior Quality Assurance Analyst: PSCB Transcribe Date/Time: Jul 20 2021 3:17P Dictated by : NIMESH SHARP MD This examination was interpreted and the report reviewed and electronically signed by: NIMESH SHARP MD on Jul 20 2021 3:27PM EST [facility] Radiology Study observation (narrative) [facility] XR Thoracic spine AP and Lat eralOrdered By: Agueda Provider on 07-20-2021 [facility] CNDSon 11-21-2020 CNDS HNO ID: [id number] Author: Neo Gar DO Service: General Internal Medicine Author Type: Physician Type: Discharge Summary Filed: 11/26/2020 5:50 PM Note Text: DISCHARGE SUMMARY PATIENT NAME: Sonia Karimi Code Status: Not on file Highest Readmission Risk Score: 16 The 30 day readmissions risk score is derived from an internally validated risk model which evaluates patient level characteristics, utilization history, medication orders and lab results up until the day of discharge. Patients with a score of 40 or above are considered highest risk for readmission. Specific patient level drivers will be listed at the bottom of the summary. DATE OF ADMISSION: 11/16/2020 DATE OF DISCHARGE: 11/21/2020 Additional Provider to Provider Information: Sonia Karimi is a 64-year-old female with past medical history of obesity, IRIS on BiPAP, COPD, hypertension, hyperlipidemia, cervical myopathy and spondylosis, bilateral knee DJD, and known lumbar spondylosis who was sent to the ER by her chronic pain physician, Dr. Fritz, for new onset bilateral extremity weakness and paresthesias (R >L) x1 month in origin that a progressively been getting worse. Patient says that for the past month she has been having weakness in both of her lower extremities. She has had associated numbness/tingling and discomfort. This feeling extends all the way from her feet up to her abdomen and includes her perineum. She is now unable to ambulate and has been getting around at home, where she lives alone, by scooting herself around in a wheelchair and utilizing a walker to help transfer herself. Although this has been going on progressively for 1 month, she feels that it has been acutely worsening in the past 2 weeks. She has had 2 associated mechanical falls in the past week. Her last fall last Monday, she does say she hit her head but she did not lose consciousness. During both falls, patient says that she landed on her buttocks. She did not notice an acute worsening after the first fall, however she does feel like her numbness got worse after the second fall. In general her weakness and numbness is worse on the right side compared to the left. She also noticed that she was able to feel the cold wheelchair foot rest with her left foot but not her right foot. Patient does denies acute pain, she does have chronic hip and knee pain but it is not worse than her baseline. She has not been having any fevers, chills, headaches, dizziness, confusion, vision changes, chest pain, shortness of breath, lightheadedness. Patient has no associated loss of bowel or urinary function. She denies fevers or chills. She has no nausea or vomiting or abdominal pain. Patient's last vaccination in the EMR was her COVID-19 Materna vaccination on 03/25 and 04/22/2020 respectively. In the ER, patient was hemodynamically stable. Per patient's pain management doctor, MRI was attempted. Patient was unable to complete the exam due to her significant claustrophobia. Additional sedation was offered but patient said that she cannot do the test. CT lumbar spine was ordered instead which showed multilevel degenerative change associated with vacuum disc phenomena at multiple levels and associated posterior osteophytes with hypertrophic change causing foraminal encroachment. There were no acute fractures. CT brain and CT cervical spine were negative for fracture or signs of stroke. Incidental finding was a new thyroid nodule and not an emergent but prompt thyroid ultrasound was recommended. Transfer was attempted to a neurosurgical center, however there was no bed availability. Patient was admitted for further testing and possible MRI with sedation. During admission, patient underwent MRI of her spine which showed T9-T12 severe canal stenosis with compression and abnormal intramedullary cord signal pronounced at T10-T11. Transfer was again initiated to for Spinal Surgery eval. Patient got a bed for transfer on 11/21 and was transferred in stable condition. Of note, other problems addressed during admission: #Thyroid nodule Assessment: Thyroid nodule on CT. Pt states she was worked up for nodule in the past with ultrasound and no biopsy. PLAN: - ultrasound of thyroid: heterogenous enlarged thyroid gland, B/L nodules dominant in R lobe 6.2 cm - FNA of nodule recommended - pt instructed to f/u outpatient for FNA of nodule #Ventricular tachycardia, nonsustained Assessment: Had 8 beats of NSVT momorphic around 4:00 PM 11/18/2020 without any obvious provocation. Echo: left ventricle normal in size, mild left ventricular hypertrophy, EF= 64, mildly dilated right atrial cavity, 1+ mild aortic regurgitation EKG: normal sinus rhythm, inverted T waves replaced nonspecific T wave abnormality in inferior leads compared with ECG of 02/16/04 PLAN: - Cardiology consulted, appreciate recs: monitor for now, (more content not included)... Normal [facility] NURSING PROGon 11-21-2020 NURSING PROG HNO ID: [id number] Author: Doretha Tesfaye RN Service: ? Author Type: Registered Nurse Type: Nursing Progress Note Filed: 11/21/2020 8:05 PM Note Text: Nursing Progress Note Patient Name: Sonia Karimi Patient Location: [place] [address] Daily Note:no change in charted assessment, will contiue to monitor. 8005-patient was transferring from w/c to bed when she was unable to get hips in bed d/t bed being higher than w/c, being unable to stand patient and aide lowered patient to her knees to readjust position to allow her to be placed on side of bed with help from another aide. Patient stated she was not injured during this incident, page sent to medicine resident. Bed [facility] at [facility]. 2000-report called at this time to Julia, patient d/'c'd at this time This note was completed by: Doretha Tesfaye Normal [facility] Basic Metabolic Panlon 11-20 Anion gap [Moles/Vol] 16 mmol/L High 0-15 [facility] Calcium [Mass/Vol] 10.4 mg/dL High 8.5-10.2 [facility] Chloride [Moles/Vol] 97 mmol/L Normal 97-105 [facility] CO2 [Moles/Vol] 24 mmol/L Normal 22-30 [facility] Creatinine [Mass/Vol] 0.93 mg/dL Normal 0.58-0.96 [facility] eGFR- Amer. >60 Normal [facility] eGFR-All Other Races >60 Normal [facility] Comment on above: Result Comment: eGFR (Estimated GFR) Units of measure: mL/min/1.73 meters squared eGFR is derived from the reexpressed MDRD Study equation using the following parameters: serum creatinine, age, gender and race. The creatinine assay has been calibrated to be traceable to IDMS. An eGFR <60 mL/min/1.73m2 for >3 months is consistent with chronic kidney disease. Refer to KDOQI guidelines for clinical interpretation. In patients with unstable renal function, e.g. those with acute kidney injury, the eGFR may not accurately reflect actual GFR. Glucose [Mass/Vol] 111 mg/dL High 74-99 [facility] Potassium [Moles/Vol] 4.2 mmol/L Normal 3.7-5.1 [facility] Sodium [Moles/Vol] 137 mmol/L Normal 136-144 [facility] Urea nitrogen [Mass/Vol] 24 mg/dL High 7-21 [facility] CBC and Differentialon 11-20 Abs Baso 0.10 k/uL Normal <0.11 [facility] Abs [place] 1.04 k/uL High <0.87 [facility] Abs Neut 7.10 k/uL Normal 1.45-7.50 [facility] Absolute nRBC <0.01 Normal <0.01 [facility] Basophils/100 WBC (Bld) 0.9 % Normal [facility] DTYPE Auto Diff Normal [facility] Eosinophils (Bld) [#/Vol] 0.37 10*3/uL Normal <0.46 [facility] Eosinophils/100 WBC (Bld) 3.3 % Normal [facility] Erythrocyte distribution width (RBC) [Ratio] 13.5 % Normal 11.5-15.0 [facility] Hematocrit (Bld) [Volume fraction] 39.3 % Normal 36.0-46.0 [facility] Hemoglobin (Bld) [Mass/Vol] 13.0 g/dL Normal 11.5-15.5 [facility] Lymphocytes (Bld) [#/Vol] 2.72 10*3/uL Normal 1.00-4.00 [facility] Lymphocytes/100 WBC (Bld) 24.0 % Normal [facility] MCH 28.3 pG Normal 26.0-34.0 [facility] MCHC (RBC) [Mass/Vol] 33.1 g/dL Normal 30.5-36.0 [facility] MCV (RBC) [Entitic vol] 85.4 fL Normal 80.0-100.0 [facility] Monocytes/100 WBC (Bld) 9.2 % Normal [facility] Neutrophils/100 WBC (Bld) 62.6 % Normal [facility] NRBCs 0.0 /100 WBC Normal 0 [facility] Platelet mean volume (Bld) [Entitic vol] 10.0 fL Normal 9.0-12.7 [facility] Platelets (Bld) [#/Vol] 361 10*3/uL Normal 150-400 [facility] RBC (Bld) [#/Vol] 4.60 10*6/uL Normal 3.90-5.20 [facility] WBC (Bld) [#/Vol] 11.33 10*3/uL High 3.70-11.00 [facility] CONSULTon 11-20-2020 CONSULT HNO ID: [id number] Author: Lois Avelar DO Service: General Surgery Author Type: Physician Type: Consults Filed: 11/22/2020 8:06 PM Note Text: CONSULT INITIAL - GENERAL SURGERY PATIENT NAME: Sonia Karimi SERVICE DATE: November 20, 2020 SERVICE TIME: 4:08 PM REASON FOR CONSULT: Possible Paronychia (hang nail infection) REQUESTING PHYSICIAN: Neo Gar DO PRIMARY CARE PHYSICIAN: Neo Gar DO I discussed the case with the resident team, reviewed all pertinent labs/imaging, and agree with the findings as documented. Lois Avelar DO ASSESSMENT AND PLAN Problem List: Hang nail IRIS HLD HTN Bilateral leg weakness Thyroid nodule Ventricular Tachycardia Assessment: Sonia Karimi is a 64 year old female who presents for possible finger nail infection after removing hang nail on R middle finger. The tip of the involved finger appears erythematous and is tender to pressure. It does not appear purulent and has not drained pus. Plan: - Bacitracin 2x/day for 7 days - soak in warm soapy water TID - no acute surgical intervention at this time ADDENDUM: Pt seen and examined. I agree with medical students note as above. Changes noted in italics. General surgery consulted for concern of possible infected right middle finger. Patient picked at a hang nail on this finger ~ 2 days ago. Cuticle is erythematous and inflamed without drainage or fluctuance. No intervention required at this time. Patient can soak finger in warm soapy water 3x a day and use bacitracin or neosporin ointment BID for 7 days. General surgery will sign off, thank you for the consult. Please call with any questions. Juanita Rodriguez DO General Surgery, PGY-2 6:18 PM 11/20/20 SUBJECTIVE HISTORY OF PRESENT ILLNESS: Sonia Karimi is a 64 year old female who presented to hospital for new onset bilateral lower extremity weakness. General surgery was consulted for possible finger infection. She reports she had a hang nail on medial side of her R middle finger which she pulled out 2 days ago. A scab formed surrounding the site on the medial side of tip of finger. She pulled at the scab which caused a red node-shaped piece of flesh to pop out between the medial border of nail and skin. She describes the site is oozy and tender when she presses on it. It has not drained any pus. She soaked her finger in warm water which helped. PAST MEDICAL HISTORY: PAST MEDICAL HISTORY Diagnosis Date Cervical polyp Cervical spine disease COPD (chronic obstructive pulmonary disease) (HCC) Hyperlipidemia Hypertension Mild aortic regurgitation repeat echocardiogram [id number] if no other changes Minor depression IRIS (obstructive sleep apnea) PAST SURGICAL HISTORY: PAST SURGICAL HISTORY Procedure Laterality Date PAST SURGICAL HISTORY OF 02/02/2018 neck surgery REMOVAL ADENOIDS,PRIMARY,<12 Y/O Adenoidectomy REMOVAL OF TONSILS,<12 Y/O Tonsillectomy FAMILY HISTORY: FAMILY HISTORY Problem Relation Age of Onset Cancer Mother skin cancer Heart Mother atrial fibrillation Cancer Father leukemia Diabetes Father Cancer Sister cancer in situ - breast Diabetes Sister Cancer Paternal Grandmother colon to liver Cancer Paternal Grandfather stomach cancer SOCIAL HISTORY: Social History Tobacco Use Smoking status: Former Smoker Years: 3.00 Smokeless tobacco: Never Used Tobacco comment: quit prior to 1979 Substance Use Topics Alcohol use: No Drug use: No MEDICATIONS: perflutren lipid microspheres 1.3 mL in NaCl (PF) 0.9% 10 mL injection (DEFINITY), , INTRAVENOUS, DIRECTED PRN, Neo Gar, DO sodium chloride 0.9 % (flush) 10 mL (BD POSIFLUSH), 10 mL, INTRAVENOUS, DIRECTED PRN, Neo Gar, DO melatonin 5 mg tablet, Take 12 mg by mouth daily at bedtime., Disp: , Rfl: acetaminophen (TYLENOL) 500 mg tablet, Take 500 mg by mouth twice daily as needed for pain., Disp: , Rfl: gabapentin (NEURONTIN) 300 mg capsule, TAKE 1 CAPSULE BY MOUTH TWICE A DAY, Disp: 60 capsule, Rfl: 5 valsartan (DIOVAN) 80 mg tablet, TAKE 1 TABLET BY MOUTH DAILY, Disp: 30 tablet, Rfl: 3 diclofenac XR (VOLTAREN-XR) 100 mg Tb24, TAKE 1 TABLET BY MOUTH DAILY WITH FOOD NEEDED FOR PAIN, Disp: 30 tablet, Rfl: 3 atorvastatin (LIPITOR) 10 mg tablet, TAKE 1 TABLET BY MOUTH DAILY, Disp: 30 tablet, Rfl: 3 amLODIPine (NORVASC) 5 mg tablet, TAKE 1 TABLET BY MOUTH DAILY, Disp: 30 tablet, Rfl: 3 triamterene-hydroCHLOROthi azide (MAXZIDE-25) 37.5-25 mg per tablet, TAKE 1 TABLET BY MOUTH DAILY, Disp: 30 tablet, Rfl: 3 sertraline (ZOLOFT) 100 mg tablet, Take 1 tablet by mouth once daily., Disp: 30 tablet, Rfl: 11 cloNIDine HCl (CATAPRES) 0.1 mg tablet, Take 1 tablet by mouth twice daily., Disp: 60 tablet, Rfl: 11 Blood Pressure Monitor, 1 Each once daily. LARGE ADULT CUFF., Disp: 1 Kit, Rfl: 0 HYDROcodone-acetaminophen (N (more content not included)... Normal [facility] Basic Metabolic Panlon 11-19 Anion gap [Moles/Vol] 16 mmol/L High 0-15 [facility] Calcium [Mass/Vol] 10.4 mg/dL High 8.5-10.2 [facility] Chloride [Moles/Vol] 98 mmol/L Normal 97-105 [facility] CO2 [Moles/Vol] 25 mmol/L Normal 22-30 [facility] Creatinine [Mass/Vol] 0.90 mg/dL Normal 0.58-0.96 [facility] eGFR- Amer. >60 Normal [facility] eGFR-All Other Races >60 Normal [facility] Comment on above: Result Comment: eGFR (Estimated GFR) Units of measure: mL/min/1.73 meters squared eGFR is derived from the reexpressed MDRD Study equation using the following parameters: serum creatinine, age, gender and race. The creatinine assay has been calibrated to be traceable to IDMS. An eGFR <60 mL/min/1.73m2 for >3 months is consistent with chronic kidney disease. Refer to KDOQI guidelines for clinical interpretation. In patients with unstable renal function, e.g. those with acute kidney injury, the eGFR may not accurately reflect actual GFR. Glucose [Mass/Vol] 122 mg/dL High 74-99 [facility] Potassium [Moles/Vol] 4.0 mmol/L Normal 3.7-5.1 [facility] Sodium [Moles/Vol] 139 mmol/L Normal 136-144 [facility] Urea nitrogen [Mass/Vol] 19 mg/dL Normal 7-21 [facility] CBC and Differentialon 11-19 Abs Baso 0.11 k/uL High <0.11 [facility] Abs [place] 0.91 k/uL High <0.87 [facility] Abs Neut 8.38 k/uL High 1.45-7.50 [facility] Absolute nRBC <0.01 Normal <0.01 [facility] Basophils/100 WBC (Bld) 0.9 % Normal [facility] DTYPE Auto Diff Normal [facility] Eosinophils (Bld) [#/Vol] 0.40 10*3/uL Normal <0.46 [facility] Eosinophils/100 WBC (Bld) 3.3 % Normal [facility] Erythrocyte distribution width (RBC) [Ratio] 13.7 % Normal 11.5-15.0 [facility] Hematocrit (Bld) [Volume fraction] 41.5 % Normal 36.0-46.0 [facility] Hemoglobin (Bld) [Mass/Vol] 13.6 g/dL Normal 11.5-15.5 [facility] Lymphocytes (Bld) [#/Vol] 2.32 10*3/uL Normal 1.00-4.00 [facility] Lymphocytes/100 WBC (Bld) 19.1 % Normal [facility] MCH 28.0 pG Normal 26.0-34.0 [facility] MCHC (RBC) [Mass/Vol] 32.8 g/dL Normal 30.5-36.0 [facility] MCV (RBC) [Entitic vol] 85.6 fL Normal 80.0-100.0 [facility] Monocytes/100 WBC (Bld) 7.5 % Normal [facility] Neutrophils/100 WBC (Bld) 69.2 % Normal [facility] NRBCs 0.0 /100 WBC Normal 0 [facility] Platelet mean volume (Bld) [Entitic vol] 10.1 fL Normal 9.0-12.7 [facility] Platelets (Bld) [#/Vol] 413 10*3/uL High 150-400 [facility] RBC (Bld) [#/Vol] 4.85 10*6/uL Normal 3.90-5.20 [facility] WBC (Bld) [#/Vol] 12.12 10*3/uL High 3.70-11.00 [facility] CONSULTon 11-19-2020 CONSULT HNO ID: [id number] Author: Vikram Abbott MD Service: Cardiovascular Medicine Author Type: Physician Type: Consults Filed: 11/19/2020 1:06 PM Note Text: PHYSICIAN CONSULT Consult performed by: Vikram Abbott MD Consult ordered by: Neo Gar, [facility] CONSULT HISTORY AND PHYSICAL @[email or web address]@ [id number] Hospital Day: 3 CONSULTING SERVICE: Cardiology: Consult Team PRIMARY SERVICE: Internal Medicine Chief Complaint: NSVT 8 beats HPI: Pleasant 64 year old female here for bilateral LE weakness, paresthesias that has been worsening and difficulty ambulating and 2 mechanical falls in past week. She denies any chest pain, dyspnea, lightheaded, dizzy, syncope, palpitations from this episode of tachycardia noted (~4PM 11/18/2020 8 beats NSVT). No family history of sudden . Review of Systems Constitutional: Negative for chills and fever. HENT: Negative for congestion and sore throat. Eyes: Negative for visual disturbance. Respiratory: Negative for shortness of breath and wheezing. Cardiovascular: Negative for chest pain, palpitations and leg swelling. Gastrointestinal: Negative for anal bleeding and blood in stool. Genitourinary: Negative for hematuria. Musculoskeletal: Positive for arthralgias. Skin: Positive for rash (chest). Negative for wound. Neurological: Positive for weakness. Negative for syncope. Psychiatric/Behavioral: Negative for behavioral problems and confusion. HISTORY: PAST MEDICAL HISTORY Diagnosis Date - Cervical polyp - Cervical spine disease - COPD (chronic obstructive pulmonary disease) (HCC) - Hyperlipidemia - Hypertension - Minor depression - IRIS (obstructive sleep apnea) PAST SURGICAL HISTORY Procedure Laterality Date - PAST SURGICAL HISTORY OF 02/02/2018 neck surgery - REMOVAL ADENOIDS,PRIMARY,<12 Y/O Adenoidectomy - REMOVAL OF TONSILS,<12 Y/O Tonsillectomy FAMILY HISTORY Problem Relation Age of Onset - Cancer Mother skin cancer - Heart Mother atrial fibrillation - Cancer Father leukemia - Diabetes Father - Cancer Sister cancer in situ - breast - Diabetes Sister - Cancer Paternal Grandmother colon to liver - Cancer Paternal Grandfather stomach cancer Social History Tobacco Use - Smoking status: Former Smoker Years: 3.00 - Smokeless tobacco: Never Used - Tobacco comment: quit prior to 1979 Substance Use Topics - Alcohol use: No - Drug use: No No current facility-administered medications on file prior to encounter. Current Outpatient Medications on File Prior to Encounter Medication Sig - melatonin 5 mg tablet Take 12 mg by mouth daily at bedtime. - acetaminophen (TYLENOL) 500 mg tablet Take 500 mg by mouth twice daily as needed for pain. - gabapentin (NEURONTIN) 300 mg capsule TAKE 1 CAPSULE BY MOUTH TWICE A DAY - valsartan (DIOVAN) 80 mg tablet TAKE 1 TABLET BY MOUTH DAILY - diclofenac XR (VOLTAREN-XR) 100 mg Tb24 TAKE 1 TABLET BY MOUTH DAILY WITH FOOD NEEDED FOR PAIN - atorvastatin (LIPITOR) 10 mg tablet TAKE 1 TABLET BY MOUTH DAILY - amLODIPine (NORVASC) 5 mg tablet TAKE 1 TABLET BY MOUTH DAILY - triamterene-hydroCHLOROthi azide (MAXZIDE-25) 37.5-25 mg per tablet TAKE 1 TABLET BY MOUTH DAILY - sertraline (ZOLOFT) 100 mg tablet Take 1 tablet by mouth once daily. - cloNIDine HCl (CATAPRES) 0.1 mg tablet Take 1 tablet by mouth twice daily. - Blood Pressure Monitor 1 Each once daily. LARGE ADULT CUFF. - HYDROcodone-acetaminophen (NORCO) 5-325 mg per tablet Take 1 tablet by mouth as needed for Pain (take once daily as needed) for up to 180 days. - MULTIVIT WITH IRON-MINERALS (MULTIVITAMIN AND MINERALS ORAL) Take 1 tablet by mouth once daily. - GEXCJBSY-HYP-NVTAVMNET-VIT D3 ORAL Take 3 tablets by mouth once daily. - cholecalciferol (VITAMIN D-3) 2,000 unit tablet Take 2,000 Units by mouth once daily. - COMPOUNDED PRESCRIPTION BIPAP 1 liter bleed in 12/5 cm. RR 14 Replacement machine with heated humidity. CPAP mask and supplies. Use nightly. ALLERGIES Allergen Reactions - Ativan [Lorazepam] Hives - Neomycin Itching Hives, itching Physical Exam 11/19/20 0049 11/19/20 0334 11/19/20 0833 11/19/20 1113 BP: (!) 108/38 133/75 127/60 Pulse: 82 75 77 64 Resp: 18 18 18 18 Temp: 36.7 ?C (98.1 ?F) 36.3 ?C (97.3 ?F) 36.6 ?C (97.9 ?F) TempSrc: Oral Axillary Oral SpO2: 95% 94% 95% 93% Weight: Height: Gen:Alert,no acute distress HEENT: normocephalic, atraumatic, no scleral ictures, no rinorrhea, normal hearing, no obvious goiter CV: S1/S2+, regular rate and rhythm, 2/6 early peaking systolic murmur Respiratory: Symmetric expansion, nonlabored, no crackles Abdomen: soft,nontender,nondistende d MSK: no edema, nontender Neuro/psych:cooperative, appropriate, no focal deficits Skin: no obvious large ecchymosis Data including imaging, ECG (personally reviewed), echocardiogram (personally reviewed), labor (more content not included)... Normal [facility] Magnesiumon 11-19-2020 Magnesium [Mass/Vol] 2.0 mg/dL Normal 1.7-2.6 [facility] NURSING PROGon 11-19-2020 NURSING PROG HNO ID: [id number] Author: Sveta Antonio, RN Service: Nursing Author Type: Registered Nurse Type: Nursing Progress Note Filed: 11/19/2020 9:11 AM Note Text: Nursing Progress Note Patient Name: Sonia Karimi Patient Location: [place] [address] [address] Daily Note:0909: Patient 2 person assist to bathroom using wheelchair, patient declined tele but is agreeable to IV placement This note was completed by: Sveta Antonio Normal [facility] Basic Metabolic Panlon 11-18 Anion gap [Moles/Vol] 12 mmol/L Normal 0-15 [facility] Calcium [Mass/Vol] 10.0 mg/dL Normal 8.5-10.2 [facility] Chloride [Moles/Vol] 99 mmol/L Normal 97-105 [facility] CO2 [Moles/Vol] 26 mmol/L Normal 22-30 [facility] Creatinine [Mass/Vol] 0.77 mg/dL Normal 0.58-0.96 [facility] eGFR- Amer. >60 Normal [facility] eGFR-All Other Races >60 Normal [facility] Comment on above: Result Comment: eGFR (Estimated GFR) Units of measure: mL/min/1.73 meters squared eGFR is derived from the reexpressed MDRD Study equation using the following parameters: serum creatinine, age, gender and race. The creatinine assay has been calibrated to be traceable to IDMS. An eGFR <60 mL/min/1.73m2 for >3 months is consistent with chronic kidney disease. Refer to KDOQI guidelines for clinical interpretation. In patients with unstable renal function, e.g. those with acute kidney injury, the eGFR may not accurately reflect actual GFR. Glucose [Mass/Vol] 163 mg/dL High 74-99 [facility] Potassium [Moles/Vol] 3.9 mmol/L Normal 3.7-5.1 [facility] Sodium [Moles/Vol] 137 mmol/L Normal 136-144 [facility] Urea nitrogen [Mass/Vol] 19 mg/dL Normal 7-21 [facility] CASE MGT INIT [facility] 2020 CASE MGT INIT [facility] HNO ID: [id number] Author: Haja Head RN Service: Case Management Author Type: Registered Nurse Type: Care Mgt Initial Assessment Filed: 11/18/2020 12:43 PM Note Text: CARE MANAGEMENT: ASSESSMENT AND DISCHARGE PLAN SERVICE DATE: November 18, 2020 SERVICE TIME: 12:37 PM PRIMARY CARE PHYSICIAN: Neo Gar DO ADMISSION STATUS: Inpatient Needs Prior to Discharge: To Be Determined MEDICAL: [place] [employer]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 [place] Issues Impacting Discharge Plan: Chronic Chronic: HTN, Cervical myopathy, Cervical spondylosis Last Discharge Date: 02/07/18 Is this Within the Past 30 days? Last discharge within 30 days: No Advance Directive: Current Advance Directive: None Fine Arts Model Attempted to Assist with AD Completion: Yes Action: Education Provided Health LiteracyHow often do you need to have someone help you when you read instructions, pamphlets, or other written material from your doctor or pharmacy? : 1 - Never How confident are you filling out medical forms by yourself?: 1 - Extremely If Patient scores > 3 on either question, the following interventions were put into place:: Patient did not score > 3 on either question. Baseline Mental Status Prior to this Illness what was the patient's Baseline Mental Status?: Alert AND Oriented Prior to this illness, has anyone described the patient having any of the following behaviors?: Not Applicable Relationship of the informant to the patient:: Self Functional Status: Independent Does Patient Currently Receive Any Community Services or Home Care?: None Equipment Prior to Admission: Tub bench/chair;Walker;Hand held shower Has the Patient Been in a Group Home Facility in the Past 30 days?: No SOCIAL: Living Arrangements: Home Lives With: Alone Financial Resources: Employed Primary Contact: Extended Emergency Contact Information Primary Emergency Contact: Tiffanie Alfaro Mobile Relation: Sister Secondary Emergency Contact: Juanita Michaels Mobile Relation: Relative Supportive Patient Contact:: Yes Contact Resources: Family Caregiver AssessmentCaregiver is ready, willing and able to meet the patient's needs as recommended by the inter-professional team:: Other: See Comment Does the patient have an acute stroke diagnosis, or has the patient had a stroke during this admission?: No Patient's perception of need for this admission:Medication Adherance I am convinced of the importance of my prescription medication: 0 - Agree Completely I worry that my prescription medication will do more harm than good to me : 0 - Disagree Completely I feel financially burdened by my [id number] expenses for my prescription medication:: 0 - Disagree Completely Risk Score: 0 Patient is categorized as: Low risk < 2 Are you interested in bedside delivery of your medications? No Is Patient Psychosocially Complex?: No ASSESSMENT AND PLAN: Medical Needs: Medical Needs: Two or more chronic diseases;Durable Medical Equipment Psychosocial Needs: Psychosocial Needs: None FREEDOM OF CHOICE EXPLAINED: [place] of Choice Given: No Reason Not Given: Patient refused POTENTIAL TRANSITION PLANS Home;Home OT/PT;Outpatient Therapy Patient admits from home for weakness/numbness. Follows with Dr Gar in community and Dr Fritz for Rehab. 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 MRI/CT show cord compression on transfer list to Neurosurgery at [facility] D/c dispo remains unknown at this time d/ awaiting neurosurgery eval. SIGNATURE: Haja Head RN PATIENT NAME: Sonia Karimi DATE: November 18, 2020 TIME: 12:37 PM PAGER/CONTACT #: [id number] Normal [facility] CBCon 11-18-2020 Absolute nRBC <0.01 Normal <0.01 [facility] Erythrocyte distribution width (RBC) [Ratio] 13.7 % Normal 11.5-15.0 [facility] Hematocrit (Bld) [Volume fraction] 38.9 % Normal 36.0-46.0 [facility] Hemoglobin (Bld) [Mass/Vol] 12.6 g/dL Normal 11.5-15.5 [facility] MCH 27.8 pG Normal 26.0-34.0 [facility] MCHC (RBC) [Mass/Vol] 32.4 g/dL Normal 30.5-36.0 [facility] MCV (RBC) [Entitic vol] 85.9 fL Normal 80.0-100.0 [facility] Platelet mean volume (Bld) [Entitic vol] 9.7 fL Normal 9.0-12.7 [facility] Platelets (Bld) [#/Vol] 327 10*3/uL Normal 150-400 [facility] RBC (Bld) [#/Vol] 4.53 10*6/uL Normal 3.90-5.20 [facility] WBC (Bld) [#/Vol] 10.68 10*3/uL Normal 3.70-11.00 [facility] CONSULT PROGon 11-18-2020 CONSULT PROG HNO ID: [id number] Author: Joni Laws DO Service: Neurology General Author Type: Physician Type: Consult Progress Note Filed: 11/18/2020 7:35 PM Note Text: [facility] Neurologic follow-up consultation Patient Name: Sonia Karimi Date of : 1955 Primary Care Physician: Neo Gar DO Consulting Physician: Neo Gar DO Date of Service: November 18, 2020 Impressions and Recommendations: 1.) LE weakness and numbness -which has significantly worsened over past 2 weeks with LE spasticity, weakness, hyper reflexia and a sensory level at approximately T8-10. It is worse on the right side. It seems to overall worsened after a fall. 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 - Agree with urgent transfer to facility with the spine surgery service - No specific neurological intervention is needed at this point . Chief Complaint: LE weakenss Interval History of Present Illness: Per nurse: Notes reviewed, no new specific neurological issues Per patient: Weakness stable, frustrated that she is not being transferred Associated with: No reported new focal weakness or abnormal movements. There are no additional associated signs or symptoms. Exacerbated by: Unclear, natural progression, fall Alleviated by: Unclear Events: No further events noted There are no additional modifying factors. There is no additional collateral history. Brief Interval Review of systems: Patient denies and there is no indication of chest pain, shortness of breath, nausea or any other new updates to ROS as documented in my original consultation. Medications: Current Facility-Administered Medications Medication Dose Route Frequency - gabapentin 300 mg cap(s) (NEURONTIN) 300 mg ORAL BID - valsartan 80 mg tab(s) (DIOVAN) 80 mg ORAL DAILY - cloNIDine HCl 0.1 mg tab(s) (CATAPRES) 0.1 mg ORAL BID - amLODIPine 5 mg tab(s) (NORVASC) 5 mg ORAL DAILY - triamterene-hydroCHLOROthi azide 37.5-25 mg 1 tablet (MAXZIDE-25) 1 tablet ORAL DAILY - sertraline 100 mg tab(s) (ZOLOFT) 100 mg ORAL AT BEDTIME - cholecalciferol 2,000 Units tab(s) (VITAMIN D3) 2,000 Units ORAL DAILY - atropine 0.5 mg injection 0.5 mg INTRAVENOUS PRN(NO DISPENSE) - enoxaparin 40 mg injection (LOVENOX) 40 mg SUBCUTANEOUS q 12 HR - NaCl 0.9% iv flush bag 20 mL INTRAVENOUS PRN - sodium chloride 0.9 % (flush) 3-5 mL (BD POSIFLUSH) 3-5 mL INTRAVENOUS q 12 H - docusate sodium 100 mg cap(s) (COLACE) 100 mg ORAL BID PRN - polyethylene glycol 3350 17 g packet (MIRALAX, GLYCOLAX) 17 g ORAL DAILY - bisacodyl 10 mg suppository (DULCOLAX) 10 mg RECTAL DAILY PRN - HYDROcodone 5 mg - acetaminophen 325 mg tablet (NORCO) 1 tablet ORAL q 6 H PRN Pre-admission perflutren lipid microspheres 1.3 mL in NaCl (PF) 0.9% 10 mL injection (DEFINITY), , INTRAVENOUS, DIRECTED PRN, Neo Gar, DO sodium chloride 0.9 % (flush) 10 mL (BD POSIFLUSH), 10 mL, INTRAVENOUS, DIRECTED PRN, Neo Gar, DO melatonin 5 mg tablet, Take 12 mg by mouth daily at bedtime., Disp: , Rfl: acetaminophen (TYLENOL) 500 mg tablet, Take 500 mg by mouth twice daily as needed for pain., Disp: , Rfl: gabapentin (NEURONTIN) 300 mg capsule, TAKE 1 CAPSULE BY MOUTH TWICE A DAY, Disp: 60 capsule, Rfl: 5 valsartan (DIOVAN) 80 mg tablet, TAKE 1 TABLET BY MOUTH DAILY, Disp: 30 tablet, Rfl: 3 diclofenac XR (VOLTAREN-XR) 100 mg Tb24, TAKE 1 TABLET BY MOUTH DAILY WITH FOOD NEEDED FOR PAIN, Disp: 30 tablet, Rfl: 3 atorvastatin (LIPITOR) 10 mg tablet, TAKE 1 TABLET BY MOUTH DAILY, Disp: 30 tablet, Rfl: 3 amLODIPine (NORVASC) 5 mg tablet, TAKE 1 TABLET BY MOUTH DAILY, Disp: 30 tablet, Rfl: 3 triamterene-hydroCHLOROthi azide (MAXZIDE-25) 37.5-25 mg per tablet, TAKE 1 TABLET BY MOUTH DAILY, Disp: 30 tablet, Rfl: 3 sertraline (ZOLOFT) 100 mg tablet, Take 1 tablet by mouth once daily., Disp: 30 tablet, Rfl: 11 cloNIDine HCl (CATAPRES) 0.1 mg tablet, Take 1 tablet by mouth twice daily., Disp: 60 tablet, Rfl: 11 Blood Pressure Monitor, 1 Each once daily. LARGE ADULT CUFF., Disp: 1 Kit, Rfl: 0 HYDROcodone-acetaminophen (NORCO) 5-325 mg per tablet, Take 1 tablet by mouth as needed for Pain (take once daily as needed) for up to 180 days., Disp: 30 tablet, Rfl: 0 MULTIVIT WITH IRON-MINERALS (MULTIVITAMIN AND MINERALS ORAL), Take 1 tablet by mouth once daily., Disp: , Rfl: WDSKWFCI-OOR-HDQHBPZAL-VIT D3 ORAL, Take 3 tablets by mouth once daily., Disp: , Rfl: cholecalciferol (VITAMIN D-3) 2,000 unit tablet, Take 2,000 Units by mouth once daily., Disp: , Rfl: COMPOUNDED PRESCRIPTION, BIPAP 1 liter bleed in 12/5 cm. RR 14 Replacement machine with heated humidity. CPAP mask and supplies. Use nightly., Disp: 1 Each, Rfl: 0 NEUROLOGIC SINGLE SYSTEM EXAM: Vital Signs: BP 148/78 Pulse 83 Temp 36.4 ?C (97.5 ?F) (Oral) (more content not included)... [facility] NURSING PROGon 11-18-2020 NURSING PROG HNO ID: [id number] Author: Alla Harmon RN Service: Nursing Author Type: Registered Nurse Type: Nursing Progress Note Filed: 11/19/2020 1:15 AM Note Text: Nursing Progress Note Patient Name: Sonia Karimi Patient Location: [place] [address] [address] Daily Note: 2000 Change of shift report recieved. Patient laying in bed resting. No needs at this time. Patient refusing to use bedpan. Noncompliance with instruction for bedrest. Continues to want to get up to the restroom by wheelchair. Will continue to monitor patient. 2029 Resident paged for notification of patient concerns. Patient refusing telemetry and IV. This note was completed by: Alla Harmon [facility] THERAPY NTon 11-18-2020 THERAPY NT HNO ID: [id number] Author: Alexandrea Olson OT/Adam Service: Occupational Therapy Author Type: Occupational Therapist Type: Therapy (PT/OT/Speech/Resp) Filed: 11/18/2020 9:08 AM Note Text: OCCUPATIONAL THERAPY MISSED VISIT SERVICE DATE: 11/18/2020 SERVICE TIME: 0855 to 0855 ROOM: [place] [address] Attempted Evaluation. Patient not seen due to Incomplete Orders. Patient with bedrest order; pending transfer to [facility] main for emergent spinal decompressive surgery. Will discharge OT order at this time. SIGNATURE: Alexandrea Olson OT/L PATIENT NAME: Sonia Karimi DATE: November 18, 2020 TIME: 9:07 AM [facility] THERAPY NT HNO ID: [id number] Author: Junior Hurd, PT Service: Physical Therapy Author Type: Physical Therapist Type: Therapy (PT/OT/Speech/Resp) Filed: 11/18/2020 8:41 AM Note Text: PHYSICAL THERAPY MISSED VISIT SERVICE DATE: 11/18/2020 SERVICE TIME: 837 to 837 ROOM: [place] [address] Attempted Evaluation. Patient not seen due to Incomplete Orders. Pt with bedrest order and pending transfer to [facility] for emergent spinal decompressive surgery. Plan: discharge PT order. SIGNATURE: Junior Hurd PT PATIENT NAME: Sonia Karimi DATE: November 18, 2020 TIME: 8:39 AM [facility] ALLIED HEALTHon 11-17-2020 ALLIED HEALTH HNO ID: [id number] Author: Josselyn Lopez, azure principal solution specialist Service: Radiology Author Type: Technologist Type: Allied Health Filed: 11/17/2020 7:55 PM Note Text: Radiology Service Progress Note PATIENT NAME: Sonia Karimi DATE OF SERVICE: November 17, 2020 TIME: 7:55 PM PATIENT IDENTITY VERIFICATION COMPLETED USING TWO (2) IDENTIFIERS: Name and Date of confirmed by patient verbally. FALL SCREENING: Has the patient had 2 falls in the last year or 1 fall with injury or currently using an Ambulatory Assistive Device (Walker, Cane, Wheelchair, Crutches, etc.)? Inpatient: Screened on floor PATIENT GENDER DATA: Female. status: : No status: NO. PATIENT RELEVANT IMPLANT DATA REVIEWED: Not Applicable RADIOLOGY DEPARTMENT: MR; Exam(s) Completed: Spine: Cervical spine, Thoracic spine and Lumbar spine PERIPHERAL IV DATA: Not applicable SIGNED BY: Macy Ngo azure principal solution specialist November 17, 2020 7:55 PM [facility] HNO ID: [id number] Author: Orin Mcclendon, Sheet Metal Roofer Service: Radiology Author Type: Groundskeeping Maintenance Worker Type: Allied Health Filed: 11/17/2020 9:02 AM Note Text: Radiology Service Progress Note PATIENT NAME: Sonia Karimi DATE OF SERVICE: November 17, 2020 TIME: 9:02 AM PATIENT IDENTITY VERIFICATION COMPLETED USING TWO (2) IDENTIFIERS: Name and Date of confirmed by patient verbally. FALL SCREENING: Has the patient had 2 falls in the last year or 1 fall with injury or currently using an Ambulatory Assistive Device (Walker, Cane, Wheelchair, Crutches, etc.)? Inpatient: Screened on floor PATIENT GENDER DATA: Female. status: : No status: N/A PATIENT RELEVANT IMPLANT DATA REVIEWED: Not Applicable RADIOLOGY DEPARTMENT: Ultrasound PERIPHERAL IV DATA: Not applicable SIGNED BY: Orin Mcclendon, Sheet Metal Roofer November 17, 2020 9:02 AM Normal [facility] FLORENCIA Panel 1on 11-17-2020 FLORENCIA by EIA 0.5 OD Ratio Normal [facility] Comment on above: Result Comment: OD R atio is interpreted as follows: Negative <1.0 Positive >=1.0 Performed By: #### W ILD13, ANA1, SSB, ANTSSA, FLATWORK ASSEMBLER, JO1, ALD, LD6 ####[facility] [id number] [place], [place] [phone] FLORENCIA by EIA, Qual Negative Normal Negative [facility] Comment on above: Performed By: #### W ILD13, ANA1, SSB, ANTSSA, FLATWORK ASSEMBLER, JO1, ALD, LD6 ####[facility] [address] [place], [place] [phone] ANES POSTPROC EVALon 021 ANES POSTPROC EVAL HNO ID: [id number] Author: Edilson Dorman DO Service: Anesthesiology Author Type: Anesthesiologist Type: Anesthesia Postprocedure Evaluation Filed: 11/17/2020 7:38 PM Note Text: POST ANESTHESIA EVALUATION NOTE : 1955 Procedure Summary Date: 11/17/20 Room / Location: MRI / SP IR Anesthesia Start: 1802 Anesthesia Stop: 1937 Procedure: MRI ANESTHESIA (Bilateral Chest) Diagnosis: Pain (Pain [R52]) Surgeons: Edilson Dorman DO Responsible Provider: Edilson Dorman DO Anesthesia Type: MAC ASA Status: 3 Anesthesia Type: MAC Last vitals Vitals Value Taken Time BP 142/63 11/17/201920 Temp 36.8 ?C (98.2 ?F) 11/17/20 174 Pulse 103 11/17/201922 Resp 8 11/17/201922 SpO2 97 % 11/17/201922 Post Anesthesia Patient Status Patient Evaluation: bedside. Neurological Status: aware and responsive. Pulmonary Status: breathing comfortably on room air Airway Control: returned to baseline unsupported. Cardiovascular Status: stable. Pain Management: clinically adequate Postoperative Hydration: acceptable. Intraoperative Events: no significant anesthesia events Post Operative Nausea/Vomiting Status: no significant post operative nausea or vomiting Anesthetic Observations: Recommendation: continue current plan of care. Anesthesia Observations No Documentation SIGNATURE: Edilson Dorman DO PATIENT NAME: Sonia Karimi DATE: November 17, 2020 TIME: 7:38 PM CSN: [id number] [facility] ANES PRE-OPon 11-17-2020 ANES PRE-OP HNO ID: [id number] Author: Edilson Dorman DO Service: Anesthesiology Author Type: Anesthesiologist Type: Anesthesia Preprocedure Evaluation Filed: 11/17/2020 5:44 PM Note Text: anesANESTHESIOLOGY DAY OF SURGERY NOTE : 1955 Procedure(s) (LRB): MRI ANESTHESIA (Bilateral) Surgeon(s): Edilson Dorman DO Estimated body mass index is 51.04 kg/m? as calculated from the following: Height as of this encounter: 167.6 cm (5' 6). Weight as of this encounter: 143.4 kg (316 lb 3.2 oz). Most recent hematocrit and potassium results: Hematocrit 37.0 11/16/2020 Potassium 4.0 11/16/2020 Relevant Problems ANESTHESIA (+) Sleep apnea CARDIO (+) Essential hypertension PULMONARY (+) Sleep apnea I - PHYSICAL EVALUATION AIRWAY Patient intubated: No. Mallampati: III. TM distance: >3 FB. Neck ROM: limited extension. Mouth opening: adequate. Short neck: no. Thick neck: no DENTAL Dental findings: poor dentition. Additional exam findings: no II - ANESTHESIA PLAN ASA Score: 3 Anesthetic Plan: MAC NPO Status: adequate Monitoring plan: standard ASA. Postoperative analgesic plan: parenteral or oral opioids. Anesthetic Risks, Benefits, Alternatives, Personnel Discussed. Consent obtained from: patient.Patient / Surrogate agrees to blood products: blood products not planned Significant changes in the patient condition since the History and Physical, not otherwise documented in primary service progress note: no. Potential Anesthesia issues that may suggest increased risk of complications or contraindication to planned procedure: none. Vitals Value Taken Time BP 141/70 11/17/20 1628 Pulse 89 11/17/20 1628 Resp 20 11/17/20 1628 Temp 36.7 ?C (98.1 ?F) 11/17/20 1628 SpO2 93 % 11/17/20 1628 Facility-Administered Medications as of 11/17/2020 Medication Dose Route Frequency - [COMPLETED] droperidol 1.25 mg injection (INAPSINE) 1.25 mg INTRAVENOUS ONCE - [COMPLETED] HYDROcodone 5 mg - acetaminophen 325 mg tablet (NORCO) 1 tablet ORAL ONCE - [MAR Hold due to Transfer] gabapentin 300 mg cap(s) (NEURONTIN) 300 mg ORAL BID - [MAR Hold due to Transfer] valsartan 80 mg tab(s) (DIOVAN) 80 mg ORAL DAILY - [MAR Hold due to Transfer] cloNIDine HCl 0.1 mg tab(s) (CATAPRES) 0.1 mg ORAL BID - [MAR Hold due to Transfer] amLODIPine 5 mg tab(s) (NORVASC) 5 mg ORAL DAILY - [MAR Hold due to Transfer] triamterene-hydroCHLOROthi azide 37.5-25 mg 1 tablet (MAXZIDE-25) 1 tablet ORAL DAILY - [MAR Hold due to Transfer] sertraline 100 mg tab(s) (ZOLOFT) 100 mg ORAL AT BEDTIME - [MAR Hold due to Transfer] cholecalciferol 2,000 Units tab(s) (VITAMIN D3) 2,000 Units ORAL DAILY - [MAR Hold due to Transfer] atropine 0.5 mg injection 0.5 mg INTRAVENOUS PRN(NO DISPENSE) - [MAR Hold due to Transfer] enoxaparin 40 mg injection (LOVENOX) 40 mg SUBCUTANEOUS q 12 HR - [MAR Hold due to Transfer] NaCl 0.9% iv flush bag 20 mL INTRAVENOUS PRN - [MAR Hold due to Transfer] sodium chloride 0.9 % (flush) 3-5 mL (BD POSIFLUSH) 3-5 mL INTRAVENOUS q 12 H - [MAR Hold due to Transfer] docusate sodium 100 mg cap(s) (COLACE) 100 mg ORAL BID PRN - [MAR Hold due to Transfer] acetaminophen 650 mg tab(s) (TYLENOL) 650 mg ORAL q 6 H PRN Outpatient Medications as of 11/17/2020 Medication Sig - valsartan (DIOVAN) 80 mg tablet TAKE 1 TABLET BY MOUTH DAILY - diclofenac XR (VOLTAREN-XR) 100 mg Tb24 TAKE 1 TABLET BY MOUTH DAILY WITH FOOD NEEDED FOR PAIN - atorvastatin (LIPITOR) 10 mg tablet TAKE 1 TABLET BY MOUTH DAILY - amLODIPine (NORVASC) 5 mg tablet TAKE 1 TABLET BY MOUTH DAILY - triamterene-hydroCHLOROthi azide (MAXZIDE-25) 37.5-25 mg per tablet TAKE 1 TABLET BY MOUTH DAILY - gabapentin (NEURONTIN) 300 mg capsule TAKE 1 CAPSULE BY MOUTH TWICE A DAY - sertraline (ZOLOFT) 100 mg tablet Take 1 tablet by mouth once daily. - cloNIDine HCl (CATAPRES) 0.1 mg tablet Take 1 tablet by mouth twice daily. - Blood Pressure Monitor 1 Each once daily. LARGE ADULT CUFF. - acetaminophen (TYLENOL) 325 mg tablet Take 2 tablets by mouth every 4 hours as needed. - MULTIVIT WITH IRON-MINERALS (MULTIVITAMIN AND MINERALS ORAL) Take 1 tablet by mouth once daily. - OIKFKSHH-MAX-KDFNTKTAU-VIT D3 ORAL Take 3 tablets by mouth once daily. - cholecalciferol (VITAMIN D-3) 2,000 unit tablet Take 2,000 Units by mouth once daily. - COMPOUNDED PRESCRIPTION BIPAP 1 liter bleed in 12/5 cm. RR 14 Replacement machine with heated humidity. CPAP mask and supplies. Use nightly. I have interviewed and examined the patient. I have reviewed the medical record and/or the pre-anesthesia evaluation, pertinent labs, and test results. This contains updated information obtained within 48 hours of Surgery/Procedure. SIGNATURE: Edilson Dorman DO PATIENT NAME: Sonia Karimi DATE: November 17, 2020 TIME: 5:44 PM CSN: [id number] Normal [facility] Aldolaseon 11-17-2020 Aldolase 7.5 U/L Normal 1.5-8.1 [facility] Comment on above: Result Comment: This test was developed and its performance characteristics determined by [facility] [place] ([facility]). It has not been cleared or approved by the FDA. [facility] is regulated under CLIA as qualified to perform high complexity testing. This test is used for clinical purposes. It should not be regarded as investigational or for research. Performed By: #### W ILD13, ANA1, SSB, ANTSSA, FLATWORK ASSEMBLER, JO1, ALD, LD6 ####[address] [phone] CK, Total and CKMBon 021 CK [Catalytic activity/Vol] 316 U/L High 42-196 [facility] Comment on above: Performed By: #### W ILD13, ANA1, SSB, ANTSSA, FLATWORK ASSEMBLER, JO1, ALD, LD6 ####[address] [phone] CK MB % 2.9 % Normal 0.0-4.0 [facility] Comment on above: Performed By: #### W ILD13, ANA1, SSB, ANTSSA, FLATWORK ASSEMBLER, JO1, ALD, LD6 ####[address] [phone] MB 9.2 ng/mL High <4.4 [facility] Comment on above: Performed By: #### W ILD13, ANA1, SSB, ANTSSA, FLATWORK ASSEMBLER, JO1, ALD, LD6 ####[address] [phone] CONSULTon 11-17-2020 CONSULT HNO ID: [id number] Author: Joni Laws DO Service: Neurology General Author Type: Physician Type: Consults Filed: 11/17/2020 8:19 PM Note Text: [facility] Neurologic Initial Consultation Patient Name: Sonia Karimi Date of : 1955 Primary Care Physician: Neo Gar DO Consulting Physician: Neo Gar DO Date of Service: November 17, 2020 Impressions and Recommendations: 1.) LE weakness and numbness -which has significantly worsened over past 2 weeks with LE spasticity, weakness, hyper reflexia and a sensory level at approximately T8-10. It is worse on the right side. It seems to overall worsened after a fall. Concern for cord compression r/o compression fracture. She failed an MRI in the emergency room due to anxiety. - STAT CT Thoracic spine wo if there is going to be a delay on the MRI - d/w RN and Dr. Gar, if positive will need urgent transfer - otherwise MRI C, T, LS spine wo with anesthesia STAT - Anticipate transfer to facility with the spine service for appropriate care ==> Addendum -images are reviewed. Official reports are pending. At least 3 levels of moderate and likely severe cord compression of the lower thoracic spine, it seems more off to the right. Discussed with the resident that the patient needs an urgent transfer to a facility offering spine surgery. This had been discussed earlier with the patient as a likely scenario.- Chief Complaint: LE weakenss History of Present Illness: Sonia Karimi is a 64 year old right-handed female who I was asked to see for an acute change in neurological status in regard to the above chief complaint. History is obtained by a thorough review of the electronic medical records and speaking with the patient. Patient reports that generally she has had problems walking for several years now. She feels it started after neck surgery. This is when she began using a wheeled walker. She does say however it is mostly due to pain in her knees. Gradually this is worsened over time but significantly so in the past month. About 2 weeks ago or so she fell and although not completely sure this is when her lower extremity numbness and right greater than left leg weakness started. She says is now nearly impossible for her to walk or even roll over. About 2 weeks ago she first started to have a dull sensation around her left knee and then soon afterwards around her right knee this numb or dull area seem to grow to encompass her entire leg bilaterally and right about to the area of her umbilicus around her body. She says she is having more bowel or bladder problems but usual as well. She said the temperature feels different in her right leg compared to the left. She has no specific worsening back pain. About 4 days into that she fell a second time. She was referred to physiatry who saw her yesterday and was so concerned that she was instructed to be admitted to the hospital. She was sent to [facility] emergency room for admission. ER attempted an MRI of her spine but she was significantly claustrophobic to the point it brought her to tears. This was with Ativan. Attempts were made to transfer to a facility with spine surgery but that appears to be unsuccessful. There are no additional associated signs or symptoms. There are no additional modifying factors. No CP, SOB, or nausea. Comprehensive Review Of Systems: Except as already mentioned, the remaining 13 ROS, done in a thorough and comprehensive manner with a good jim effort, are negative. Allergies: ALLERGIES Allergen Reactions - Ativan [Lorazepam] Hives - Neomycin Itching Hives, itching Medications: Current Facility-Administered Medications Medication Dose Route Frequency - gabapentin 300 mg cap(s) (NEURONTIN) 300 mg ORAL BID - valsartan 80 mg tab(s) (DIOVAN) 80 mg ORAL DAILY - cloNIDine HCl 0.1 mg tab(s) (CATAPRES) 0.1 mg ORAL BID - amLODIPine 5 mg tab(s) (NORVASC) 5 mg ORAL DAILY - triamterene-hydroCHLOROthi azide 37.5-25 mg 1 tablet (MAXZIDE-25) 1 tablet ORAL DAILY - sertraline 100 mg tab(s) (ZOLOFT) 100 mg ORAL AT BEDTIME - cholecalciferol 2,000 Units tab(s) (VITAMIN D3) 2,000 Units ORAL DAILY - atropine 0.5 mg injection 0.5 mg INTRAVENOUS PRN(NO DISPENSE) - enoxaparin 40 mg injection (LOVENOX) 40 mg SUBCUTANEOUS q 12 HR - NaCl 0.9% iv flush bag 20 mL INTRAVENOUS PRN - sodium chloride 0.9 % (flush) 3-5 mL (BD POSIFLUSH) 3-5 mL INTRAVENOUS q 12 H - docusate sodium 100 mg cap(s) (COLACE) 100 mg ORAL BID PRN - acetaminophen 650 mg tab(s) (TYLENOL) 650 mg ORAL q 6 H PRN Pre-admission perflutren lipid microspheres 1.3 mL in NaCl (PF) 0.9% 10 mL injection (DEFINITY), , INTRAVENOUS, DIRECTED PRN, Neo Gar, sodium chloride 0.9 % (flush) 10 mL (BD POSIFLUSH), 10 mL, INTRAVENOUS, DIRECTED TIMN, Neo Gar, valsartan (DIOVAN) 80 mg tablet, TAKE 1 TABLET BY MOUTH D (more content not included)... Normal [facility] CT BRAIN WO IVCONon 11-18-19 CT BRAIN WO IVCON * * *Final Report* * * DATE OF EXAM: Nov 16 2020 11:37PM SPC 0504 - CT BRAIN WO IVCON / PROCEDURE REASON: Head trauma, subacute-chronic, new neuro deficit * * * * Physician Interpretation * * * * RESULT: EXAMINATION: CT BRAIN WO IVCON, CT CERVICAL SPINE WO IVCON CLINICAL HISTORY: Head trauma, subacute-chronic, new neuro deficit (accession [id number]), C-spine trauma, NEXUS/CCR positive (accession [id number]) TECHNIQUE: Serial axial images without IV contrast were obtained from the vertex to the foramen magnum. CT of the cervical spine was performed. MQ: CTBWO_3 CT Radiation dose: Integrated Dose-Length Product (DLP) for this visit = BAACS=073 ROHHBO=227 mGy*cm CT Dose Reduction Employed: No dose reduction techniques were required COMPARISON: None. RESULT: Post-operative change: None. Acute change: No evidence of an acute infarct or other acute parenchymal process. Hemorrhage: No evidence of acute intracranial hemorrhage. ECASS hemorrhagic transformation score: Not Applicable Mass Lesion / Mass Effect: There is no evidence of an intracranial mass or extraaxial fluid collection. No significant mass effect. Chronic change: None apparent. Parenchyma: There is no significant volume loss. The brain parenchyma is otherwise within normal limits for age. Ventricles: The ventricles are within normal limits of size and configuration for age. Paranasal sinuses and skull base: The visualized paranasal sinuses are grossly clear. The skull base and imaged soft tissues are unremarkable. Workers Compensation Legal Secretary (topogram) images: Cervical spine: There are no fractures or prevertebral edema, or subluxations. 4 cm right thyroid nodule. There are no fractures subluxations or Postoperative changes of C3/C4. There are severe degenerative changes of the spine atc 3 through C6. IMPRESSION: No acute findings within the brain or cervical spine 4 cm nodule of right thyroid. Nonemergent ultrasound of the thyroid recommended for further evaluation. ACTIONABLE RESULT: FOLLOW-UP Acuity: Actionable Findings: Endocrine (thyroid) Routing Code: EMI_1 Recommendation: US THYROID/PARATHYROID Time Frame: non-urgent, but prompt follow-up. COMMUNICATION: Results will be communicated with the ordering provider via [employer] staff message or phone message by Imaging Support Services within 2 business days of report finalization. Algorithms for management of incidental imaging findings can be found on the [facility] Intranet Sharepoint site at: [email or web address] [email or web address] Transcribed Using Voice Recognition Transcribe Date/Time: Nov 17 2020 12:43A Dictated by: TAWANA ROGERS MD This examination was interpreted and the report reviewed and electronically signed by: TAWANA ROGERS MD on Nov 17 2020 12:58AM EST [id number] ACTIONABLE Invalid Interpretation Code [facility] CT CERVICAL SPINE WO IVCONon 11-17-2020 CT CERVICAL SPINE WO IVCON * * *Final Report* * * DATE OF EXAM: Nov 16 2020 11:37PM SPC 0505 - CT CERVICAL SPINE WO IVCON / PROCEDURE REASON: C-spine trauma, NEXUS/CCR positive * * * * Physician Interpretation * * * * RESULT: EXAMINATION: CT BRAIN WO IVCON, CT CERVICAL SPINE WO IVCON CLINICAL HISTORY: Head trauma, subacute-chronic, new neuro deficit (accession [id number]), C-spine trauma, NEXUS/CCR positive (accession [id number]) TECHNIQUE: Serial axial images without IV contrast were obtained from the vertex to the foramen magnum. CT of the cervical spine was performed. MQ: CTBWO_3 CT Radiation dose: Integrated Dose-Length Product (DLP) for this visit = ZEXNA=730 NXSGVF=219 mGy*cm CT Dose Reduction Employed: No dose reduction techniques were required COMPARISON: None. RESULT: Post-operative change: None. Acute change: No evidence of an acute infarct or other acute parenchymal process. Hemorrhage: No evidence of acute intracranial hemorrhage. ECASS hemorrhagic transformation score: Not Applicable Mass Lesion / Mass Effect: There is no evidence of an intracranial mass or extraaxial fluid collection. No significant mass effect. Chronic change: None apparent. Parenchyma: There is no significant volume loss. The brain parenchyma is otherwise within normal limits for age. Ventricles: The ventricles are within normal limits of size and configuration for age. Paranasal sinuses and skull base: The visualized paranasal sinuses are grossly clear. The skull base and imaged soft tissues are unremarkable. Workers Compensation Legal Secretary (topogram) images: Cervical spine: There are no fractures or prevertebral edema, or subluxations. 4 cm right thyroid nodule. There are no fractures subluxations or Postoperative changes of C3/C4. There are severe degenerative changes of the spine atc 3 through C6. IMPRESSION: No acute findings within the brain or cervical spine 4 cm nodule of right thyroid. Nonemergent ultrasound of the thyroid recommended for further evaluation. ACTIONABLE RESULT: FOLLOW-UP Acuity: Actionable Findings: Endocrine (thyroid) Routing Code: EMI_1 Recommendation: US THYROID/PARATHYROID Time Frame: non-urgent, but prompt follow-up. COMMUNICATION: Results will be communicated with the ordering provider via [employer] staff message or phone message by [facility] within 2 business days of report finalization. Algorithms for management of incidental imaging findings can be found on the [facility] Intranet Sharepoint site at: [email or web address] [email or web address] Transcribed Using Voice Recognition Transcribe Date/Time: Nov 17 2020 12:43A Dictated by: TAWANA ROGERS MD This examination was interpreted and the report reviewed and electronically signed by: TAWANA ROGERS MD on Nov 17 2020 12:58AM EST [id number] ACTIONABLE Invalid Interpretation Code [facility] CT THORACIC SPINE WO IVCONon 11-17-2020 CT THORACIC SPINE WO IVCON * * *Final Report* * * DATE OF EXAM: Nov 17 2020 3:40PM [facility] [place] THORACIC SPINE WO IVCON / PROCEDURE REASON: T-spine fx, traumatic * * * * Physician Interpretation * * * * RESULT: EXAMINATION: CT THORACIC SPINE WO IVCON CLINICAL HISTORY: Right lower extremity spasticity, numbness, fall. TECHNIQUE: Spiral, high resolution unenhanced axial images were obtained from the cervicothoracic junction to the thoracolumbar junction with sagittal and coronal planar reconstructions. MQ: [id number] CT Radiation dose: Integrated Dose-Length Product (DLP) for this visit = 1021 mGy*cm. CT Dose Reduction Employed: Automated exposure control(AEC) and iterative recon COMPARISON: CT lumbar spine dated 11/16/[address] cervical spine dated 11/16/2020 was referenced. RESULT: Of note, the T1 level is not fully included in the [id number], however prior CT cervical spine dated 11/16/2020 included this level and was referenced. Counting reference: First rib-bearing vertebral body is designated T1. Workers Compensation Legal Secretary (topogram) images: No additional significant findings. Alignment: No significant anterolisthesis or retrolisthesis. Disc space narrowing seen at multiple levels throughout the thoracic spine. Bone marrow / fracture: Endplate sclerosis seen at multiple levels. Vacuum phenomenon seen at the lower thoracic levels. No evidence of acute or chronic fracture. Thoracic paraspinal soft tissues: There is partially imaged right thyroid lesion which extends into the imaged upper mediastinum, described on the prior CT cervical spine report. Canal and foramina: Disc osteophyte complexes and facet degenerative changes seen at multiple levels throughout the thoracic spine. At T1-T2, T2-T3, T3-T4, T4-T5, and T5-T6, there is no significant canal or foraminal narrowing. At T6-T7, there is moderate left foraminal narrowing. Canal and right neural foramen are patent. At T7-T8, there is mild canal stenosis and moderate right and mild left foraminal narrowing. At T8-T9, there is mild to moderate canal stenosis and moderate bilateral foraminal narrowing. At T9-T10, there is moderate canal stenosis and moderate bilateral foraminal narrowing. At T10-T11, there is severe canal stenosis and moderate bilateral foraminal narrowing. At T11-T12, there is moderate canal stenosis and mild bilateral foraminal narrowing. At T12-L1, there is mild to moderate canal stenosis along with moderate left and mild to moderate right foraminal narrowing. IMPRESSION: Multilevel degenerative changes with canal stenosis of up to a severe degree and foraminal narrowing of up to moderate degree seen at some levels (see level by level discussion above). Partially imaged right thyroid lesion which extends into the imaged upper mediastinum. This was described on the prior CT cervical spine report from 11/16/2020 and further follow-up with ultrasound may be of benefit. Otherwise, unremarkable CT thoracic spine without contrast. Counting reference: First rib-bearing vertebral body is designated T1. Transcribed Using Voice Recognition Transcribe Date/Time: Nov 17 2020 3:48P Dictated by: RAMOS PATEL MD This examination was interpreted and the report reviewed and electronically signed by: RAMOS PATEL MD on Nov 17 2020 3:59PM EST [id number] Normal [facility] PRINCESS 1 Antibodyon 11-17-2020 PRINCESS 1 Antibody <0.2 Normal <1.0 [facility] Comment on above: Result Comment: NEGA TIVE Negative: <1.0 AI Positive: >0.9 AI Test performed using the Multiplex Flow Immunoassay technology. Performed By: #### W ILD13, ANA1, SSB, ANTSSA, FLATWORK ASSEMBLER, JO1, ALD, LD6 ####[facility], [place] [phone] LDon 11-17-2020 LD 259 U/L High 135-214 [facility] Comment on above: Performed By: #### W ILD13, ANA1, SSB, ANTSSA, FLATWORK ASSEMBLER, JO1, ALD, LD6 ####[place] [id number] [place], [place] [phone] MRI CERVICAL SPINE WO IVCONo n 11-17-2020 MRI CERVICAL SPINE WO IVCON * * *Final Report* * * DATE OF EXAM: Nov 17 2020 7:57PM [facility] 0297 - MRI CERVICAL SPINE WO IVCON / PROCEDURE REASON: C-spine stenosis * * * * Physician Interpretation * * * * RESULT: EXAMINATION: MRI CERVICAL SPINE WO IVCON, MRI LUMBAR SPINE WO IVCON, MRI THORACIC SPINE WO IVCON CLINICAL HISTORY: Lower extremity weakness and spasticity TECHNIQUE: Routine cervical, thoracic, and lumbar spine MR protocol MQ: MRSpine_1 COMPARISON: CT thoracic spine 11/17/2020, CT cervical and lumbar spine 11/16/2020 RESULT: CERVICAL SPINE: Counting reference: Craniocervical junction. Anatomic Variants: None. Cervical soft tissues: The paraspinal soft tissues are within normal limits. Partially visualized substernal extension of the thyroid with the large heterogeneous T2 hyperintense nodule in the right thyroid lobe measuring up to 5.6 cm with internal septations. Cystic T2 hyperintense collection with internal septations extends from the left shoulder joint dorsal to the left trapezius muscle. This is nonspecific and incompletely characterized on the localizer images and could reflect either a subacute to chronic hematoma. Further evaluation with MRI shoulder may be of use. Alignment: There is grade 1 anterolisthesis of C3 on C4 resulting in reversal of the cervical lordosis. Grade 1 retrolisthesis of C6 on C7. Craniocervical junction: Patchy T2 and STIR hyperintensity in the raegan is nonspecific but likely reflects chronic microvascular ischemia. Craniocervical junction is normal. Cord: Cervical spinal cord is normal in signal intensity and morphology with the exception of extradural defects detailed below. Bone marrow signal/fracture: There are postoperative findings of anterior cervical discectomy and fusion at C3-C4 and bony fusion across the C4-C5 disc space. Severe degenerative disc space narrowing at the C5-C7 levels with type II signal degenerative endplate marrow changes at C6-C7. Posterior elements are normal in morphology and alignment. Dorsal bony fusion across the C3-C5 facets. No evidence of pathologic marrow infiltration. No evidence of prior fracture. C2-C3: Moderate to severe right neural foraminal stenosis from facet and uncovertebral hypertrophy. The canal left neural foramen are patent. C3-C4: Mild effacement of the ventral thecal sac from spondylolisthesis, abutting the ventral cord. No cord compression. The dorsal CSF space is maintained. Mild right neural foraminal stenosis from facet and uncovertebral hypertrophy. The left neural foramen is patent. C4-C5: Mild effacement of the ventral thecal sac from bony fusion across the C4-C5 disc space and osteophyte formation with flattening of the ventral cord. The dorsal CSF space is maintained. Severe bilateral neural foraminal stenoses from facet and uncovertebral hypertrophy. C5-C6: Severe bilateral neural foraminal stenoses from facet and uncovertebral hypertrophy. Mild effacement of the ventral thecal sac with mild canal stenosis. No impact on the cord.. C6-C7: Spondylolisthesis with posterior disc osteophyte complex mildly narrows the canal and effaces the ventral thecal sac without impact on the cord. Severe right and moderate to severe left neural foraminal stenoses from facet and uncovertebral hypertrophy. C7-T1: Canal and foramina are patent. THORACIC SPINE: Counting reference: Lumbosacral junction. For the purposes of this report, L4-5 is considered the level of the iliac crest and assume there are 5 lumbar-type vertebrae. Anatomic variant: None. Thoracic soft tissues: The paraspinal soft tissues are within normal limits. Alignment: Straightening of the thoracic kyphosis. Minimal dextroconvex curvature centered at T6. Alignment is otherwise anatomic. 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 The remainder of the thoracic cord is normal in signal and morphology. Bone marrow signal/fracture: Severe degenerative disc space narrowing and disc desiccation in the lower thoracic levels, most pronounced at T9-T11 with type II signal degenerative endplate marrow changes. Posterior elements are normal in morphology and alignment. Bilateral facet arthropathy most pronounced in the lower thoracic levels at T9-T12. No evidence of pathologic marrow infiltration. No evidence of prior fracture. Canal and foramina: Thoracic neural foramina from T1-T8 are patent without significant stenosis. There are multilevel central disc protrusions from T3-T8 which efface the ventral thecal sac without significant impact on the cord, resulting in mild multilevel canal stenoses. Mild bilateral neural foraminal stenoses at T8-T9 from facet hypertrophy with mild canal stenosis from posterior disc osteophyte complex. No significant impact on the cord. T9-T10: Severe canal stenosis from disc h (more content not included)... Normal [facility] MRI LUMBAR SPINE WO IVCONon 11-17-2020 MRI LUMBAR SPINE WO IVCON * * *Final Report* * * DATE OF EXAM: Nov 17 2020 7:57PM [facility] 0303 - MRI LUMBAR SPINE WO IVCON / PROCEDURE REASON: L/S-spine stenosis * * * * Physician Interpretation * * * * RESULT: EXAMINATION: MRI CERVICAL SPINE WO IVCON, MRI LUMBAR SPINE WO IVCON, MRI THORACIC SPINE WO IVCON CLINICAL HISTORY: Lower extremity weakness and spasticity TECHNIQUE: Routine cervical, thoracic, and lumbar spine MR protocol MQ: MRSpine_1 COMPARISON: CT thoracic spine 11/17/2020, CT cervical and lumbar spine 11/16/2020 RESULT: CERVICAL SPINE: Counting reference: Craniocervical junction. Anatomic Variants: None. Cervical soft tissues: The paraspinal soft tissues are within normal limits. Partially visualized substernal extension of the thyroid with the large heterogeneous T2 hyperintense nodule in the right thyroid lobe measuring up to 5.6 cm with internal septations. Cystic T2 hyperintense collection with internal septations extends from the left shoulder joint dorsal to the left trapezius muscle. This is nonspecific and incompletely characterized on the localizer images and could reflect either a subacute to chronic hematoma. Further evaluation with MRI shoulder may be of use. Alignment: There is grade 1 anterolisthesis of C3 on C4 resulting in reversal of the cervical lordosis. Grade 1 retrolisthesis of C6 on C7. Craniocervical junction: Patchy T2 and STIR hyperintensity in the raegan is nonspecific but likely reflects chronic microvascular ischemia. Craniocervical junction is normal. Cord: Cervical spinal cord is normal in signal intensity and morphology with the exception of extradural defects detailed below. Bone marrow signal/fracture: There are postoperative findings of anterior cervical discectomy and fusion at C3-C4 and bony fusion across the C4-C5 disc space. Severe degenerative disc space narrowing at the C5-C7 levels with type II signal degenerative endplate marrow changes at C6-C7. Posterior elements are normal in morphology and alignment. Dorsal bony fusion across the C3-C5 facets. No evidence of pathologic marrow infiltration. No evidence of prior fracture. C2-C3: Moderate to severe right neural foraminal stenosis from facet and uncovertebral hypertrophy. The canal left neural foramen are patent. C3-C4: Mild effacement of the ventral thecal sac from spondylolisthesis, abutting the ventral cord. No cord compression. The dorsal CSF space is maintained. Mild right neural foraminal stenosis from facet and uncovertebral hypertrophy. The left neural foramen is patent. C4-C5: Mild effacement of the ventral thecal sac from bony fusion across the C4-C5 disc space and osteophyte formation with flattening of the ventral cord. The dorsal CSF space is maintained. Severe bilateral neural foraminal stenoses from facet and uncovertebral hypertrophy. C5-C6: Severe bilateral neural foraminal stenoses from facet and uncovertebral hypertrophy. Mild effacement of the ventral thecal sac with mild canal stenosis. No impact on the cord.. C6-C7: Spondylolisthesis with posterior disc osteophyte complex mildly narrows the canal and effaces the ventral thecal sac without impact on the cord. Severe right and moderate to severe left neural foraminal stenoses from facet and uncovertebral hypertrophy. C7-T1: Canal and foramina are patent. THORACIC SPINE: Counting reference: Lumbosacral junction. For the purposes of this report, L4-5 is considered the level of the iliac crest and assume there are 5 lumbar-type vertebrae. Anatomic variant: None. Thoracic soft tissues: The paraspinal soft tissues are within normal limits. Alignment: Straightening of the thoracic kyphosis. Minimal dextroconvex curvature centered at T6. Alignment is otherwise anatomic. 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 The remainder of the thoracic cord is normal in signal and morphology. Bone marrow signal/fracture: Severe degenerative disc space narrowing and disc desiccation in the lower thoracic levels, most pronounced at T9-T11 with type II signal degenerative endplate marrow changes. Posterior elements are normal in morphology and alignment. Bilateral facet arthropathy most pronounced in the lower thoracic levels at T9-T12. No evidence of pathologic marrow infiltration. No evidence of prior fracture. Canal and foramina: Thoracic neural foramina from T1-T8 are patent without significant stenosis. There are multilevel central disc protrusions from T3-T8 which efface the ventral thecal sac without significant impact on the cord, resulting in mild multilevel canal stenoses. Mild bilateral neural foraminal stenoses at T8-T9 from facet hypertrophy with mild canal stenosis from posterior disc osteophyte complex. No significant impact on the cord. T9-T10: Severe canal stenosis from disc h (more content not included)... Normal [facility] MRI THORACIC SPINE WO IVCONo n 11-17-2020 MRI THORACIC SPINE WO IVCON * * *Final Report* * * DATE OF EXAM: Nov 17 2020 7:57PM [facility] 0325 - MRI THORACIC SPINE WO IVCON / PROCEDURE REASON: T-spine stenosis * * * * Physician Interpretation * * * * RESULT: EXAMINATION: MRI CERVICAL SPINE WO IVCON, MRI LUMBAR SPINE WO IVCON, MRI THORACIC SPINE WO IVCON CLINICAL HISTORY: Lower extremity weakness and spasticity TECHNIQUE: Routine cervical, thoracic, and lumbar spine MR protocol MQ: MRSpine_1 COMPARISON: CT thoracic spine 11/17/2020, CT cervical and lumbar spine 11/16/2020 RESULT: CERVICAL SPINE: Counting reference: Craniocervical junction. Anatomic Variants: None. Cervical soft tissues: The paraspinal soft tissues are within normal limits. Partially visualized substernal extension of the thyroid with the large heterogeneous T2 hyperintense nodule in the right thyroid lobe measuring up to 5.6 cm with internal septations. Cystic T2 hyperintense collection with internal septations extends from the left shoulder joint dorsal to the left trapezius muscle. This is nonspecific and incompletely characterized on the localizer images and could reflect either a subacute to chronic hematoma. Further evaluation with MRI shoulder may be of use. Alignment: There is grade 1 anterolisthesis of C3 on C4 resulting in reversal of the cervical lordosis. Grade 1 retrolisthesis of C6 on C7. Craniocervical junction: Patchy T2 and STIR hyperintensity in the raegan is nonspecific but likely reflects chronic microvascular ischemia. Craniocervical junction is normal. Cord: Cervical spinal cord is normal in signal intensity and morphology with the exception of extradural defects detailed below. Bone marrow signal/fracture: There are postoperative findings of anterior cervical discectomy and fusion at C3-C4 and bony fusion across the C4-C5 disc space. Severe degenerative disc space narrowing at the C5-C7 levels with type II signal degenerative endplate marrow changes at C6-C7. Posterior elements are normal in morphology and alignment. Dorsal bony fusion across the C3-C5 facets. No evidence of pathologic marrow infiltration. No evidence of prior fracture. C2-C3: Moderate to severe right neural foraminal stenosis from facet and uncovertebral hypertrophy. The canal left neural foramen are patent. C3-C4: Mild effacement of the ventral thecal sac from spondylolisthesis, abutting the ventral cord. No cord compression. The dorsal CSF space is maintained. Mild right neural foraminal stenosis from facet and uncovertebral hypertrophy. The left neural foramen is patent. C4-C5: Mild effacement of the ventral thecal sac from bony fusion across the C4-C5 disc space and osteophyte formation with flattening of the ventral cord. The dorsal CSF space is maintained. Severe bilateral neural foraminal stenoses from facet and uncovertebral hypertrophy. C5-C6: Severe bilateral neural foraminal stenoses from facet and uncovertebral hypertrophy. Mild effacement of the ventral thecal sac with mild canal stenosis. No impact on the cord.. C6-C7: Spondylolisthesis with posterior disc osteophyte complex mildly narrows the canal and effaces the ventral thecal sac without impact on the cord. Severe right and moderate to severe left neural foraminal stenoses from facet and uncovertebral hypertrophy. C7-T1: Canal and foramina are patent. THORACIC SPINE: Counting reference: Lumbosacral junction. For the purposes of this report, L4-5 is considered the level of the iliac crest and assume there are 5 lumbar-type vertebrae. Anatomic variant: None. Thoracic soft tissues: The paraspinal soft tissues are within normal limits. Alignment: Straightening of the thoracic kyphosis. Minimal dextroconvex curvature centered at T6. Alignment is otherwise anatomic. 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 The remainder of the thoracic cord is normal in signal and morphology. Bone marrow signal/fracture: Severe degenerative disc space narrowing and disc desiccation in the lower thoracic levels, most pronounced at T9-T11 with type II signal degenerative endplate marrow changes. Posterior elements are normal in morphology and alignment. Bilateral facet arthropathy most pronounced in the lower thoracic levels at T9-T12. No evidence of pathologic marrow infiltration. No evidence of prior fracture. Canal and foramina: Thoracic neural foramina from T1-T8 are patent without significant stenosis. There are multilevel central disc protrusions from T3-T8 which efface the ventral thecal sac without significant impact on the cord, resulting in mild multilevel canal stenoses. Mild bilateral neural foraminal stenoses at T8-T9 from facet hypertrophy with mild canal stenosis from posterior disc osteophyte complex. No significant impact on the cord. T9-T10: Severe canal stenosis from disc h (more content not included)... [facility] Send Out Teston 10-05-2 021 Test Anti [facility] Comment on above: Performed By: #### W ILD13, ANA1, SSB, ANTSSA, FLATWORK ASSEMBLER, JO1, ALD, LD6 ####[facility], [place] [phone] Test Results Results sent to the physicians office [facility] Comment on above: Performed By: #### W ILD13, ANA1, SSB, ANTSSA, FLATWORK ASSEMBLER, JO1, ALD, LD6 ####[facility] [address], [place] [phone] NURSING PROGon 11-17-2020 NURSING PROG HNO ID: [id number] Author: Venu Hightower RN Service: Nursing Author Type: Registered Nurse Type: Nursing Progress Note Filed: 11/17/2020 8:10 PM Note Text: Nursing Progress Note Patient Name: Sonia Karimi Patient Location: INTERV RAD POOL/ INTERV RAD P* Daily Note: 2009 condition stable. Report called to Sia JOHNSTON. Tolerating ice chips po This note was completed by: Venu Hightower [facility] NURSING PROG HNO ID: [id number] Author: Alla Harmon RN Service: Nursing Author Type: Registered Nurse Type: Nursing Progress Note Filed: 11/19/2020 1:16 AM Note Text: Nursing Progress Note Patient Name: Sonia Karimi Patient Location: [facility] Daily Note: 2000 Change of shift report recieved. Patient laying in bed resting. No needs at this time. Patient refusing to use bedpan. Noncompliance with instruction for bedrest. Continues to want to get up to the restroom by wheelchair. Will continue to monitor patient. 0700 Handoff report provided to Jacqui JOHNSTON. This note was completed by: Alla Harmon [facility] NURSING PROG HNO ID: [id number] Author: Addie Lucero RN Service: Nursing Author Type: Registered Nurse Type: Nursing Progress Note Filed: 11/17/2020 8:36 PM Note Text: Nursing Progress Note Patient Name: Sonia Karimi Patient Location: [place] [address]/[facility]-1 Daily Note: 1035: Administered AM meds; medicated for hip/back pain. 1115: Dr. Laws and Dr. Gar on floor. Possible cord compression; fall ~2 weeks ago. Orders received. Pt may need transferred out depending on imaging results. 1140: Received call from [facility]; plans to coordinate for pt to have both MRI and CT today. Spoke w/ Dr. Laws on floor; only needed CT if MRI was unable to be done today. Called back CT to notify; spoke w/ Buddy. 1630: Pt to remain NPO; plans for MRI tonight. Pt instructed not to bear weight/ambulate. Pt refusing to use bedpan; attempted to assist to bedside commode. Pt unable to tolerate. Requested to use wheelchair to get to toilet. Heavy assist. 1800: Pt GUY for MRI w/ MAC. This note was completed by: Addie Lucero [facility] EMR ANALYST Antibodyon 11-17-2020 EMR ANALYST Antibody <0.2 Normal <1.0 [facility] Comment on above: Result Comment: NEGA TIVE Negative: <1.0 AI Positive: >0.9 AI Test performed using the Multiplex Flow Immunoassay technology. Performed By: #### W ILD13, ANA1, SSB, ANTSSA, FLATWORK ASSEMBLER, JO1, ALD, LD6 ####[facility], [place] [phone] SSA Antibodyon 11-17-2020 SSA Antibody <0.2 Normal <1.0 [facility] Comment on above: Result Comment: NEGA TIVE Negative: <1.0 AI Positive: >0.9 AI Test performed using the Multiplex Flow Immunoassay technology. Performed By: #### W ILD13, ANA1, SSB, ANTSSA, FLATWORK ASSEMBLER, JO1, ALD, LD6 ####[facility], [place] [phone] SSB Antibodyon 11-17-2020 SSB Antibody <0.2 Normal <1.0 [facility] Comment on above: Result Comment: NEGA TIVE Negative: <1.0 AI Positive: >0.9 AI Test performed using the Multiplex Flow Immunoassay technology. Performed By: #### W ILD13, ANA1, SSB, ANTSSA, FLATWORK ASSEMBLER, JO1, ALD, LD6 ####[facility], [place] [phone] THERAPY NTon 11-17-2020 THERAPY NT HNO ID: [id number] Author: Rosalba Ronquillo PT, DPT Service: Physical Therapy Author Type: Physical Therapist Type: Therapy (PT/OT/Speech/Resp) Filed: 11/17/2020 1:18 PM Note Text: PHYSICAL THERAPY MISSED VISIT SERVICE DATE: 11/17/2020 SERVICE TIME: 1317 to 1317 ROOM: [place] [address] Attempted Evaluation. Patient not seen due to Test/Procedure. Stat spine CT and MRI ordered. Per neuro, may need transferred out depending on imaging results. Will hold PT evaluation at this time and await imaging results. SIGNATURE: Rosalba Ronquillo PT, DPT PATIENT NAME: Sonia Karimi DATE: November 17, 2020 TIME: 1:17 PM Normal [facility] US THYROID/PARATHYROIDon US THYROID/PARATHYROID * * *Final Report* * * DATE OF EXAM: Nov 17 2020 9:03AM [facility] 1048 - US THYROID/PARATHYROID / PROCEDURE REASON: Thyroid nodule, incidental on CT/MR/US, no risk factors * * * * Physician Interpretation * * * * RESULT: EXAMINATION: THYROID ULTRASOUND CLINICAL HISTORY: Thyroid nodule, incidental on CT/MR/US, no risk factors TECHNIQUE: Sonography and Doppler imaging of the thyroid was performed. Images were obtained and stored in a permanent archive. MQ: UST_1 COMPARISON: 01/31/2018. RESULT: Right Lobe: 9.8 x 4.2 x 4.7 cm; heterogeneous echogenicity, expected vascular flow. Left Lobe: 5.0 x 1.5 x 1.8 cm; heterogeneous echogenicity, expected vascular flow. Isthmus: 0.7 cm The most suspicious thyroid nodule(s) (up to four) as below: NODULE 1: Location: Right lower pole Size: 5.4 x 6.2 x 4.7 cm, previously 4.7 x 4.5 x 4.3 cm. Characteristics: Composition: Mixed cystic and solid, 1 point Echogenicity: Hypoechoic, 2 points Shape: [id number], 0 points Margin: Smooth, 0 points Echogenic foci (add points for all that apply): None, 0 points Internal vascularity: present Interval growth: Interval increase in size. TI-RADS Category: TR3 ACR Recommendation: TI-RADS 3 nodule. FNA is recommended for nodules measuring greater than 2.5cm. IMPRESSION: Heterogeneous, enlarged thyroid gland. Again seen are bilateral thyroid nodules. Dominant nodule within the lower pole of the right lobe, measuring up to 6.2 cm, increased in size in the interval. TI-RADS Category: TR3 ACR Recommendation: TI-RADS 3 nodule. FNA is recommended for nodules measuring greater than 2.5cm. ACR recommendations are strictly based on the size and imaging appearance at the time of the exam and do not consider stability or previous biopsy results. Transcribed Using Voice Recognition Transcribe Date/Time: Nov 17 2020 9:34A Dictated by: GABRIELLE NORMAN MD This examination was interpreted and the report reviewed and electronically signed by: GABRIELLE NORMAN MD on Nov 17 2020 9:37AM EST [id number] Normal [facility] C-Reactive Proteinon 021 CRP [Mass/Vol] mg/L Normal 0.1-0.89 [facility] CBC and Differentialon 11-16 Abs Baso 0.06 k/uL Normal <0.11 [facility] Abs [place] 0.64 k/uL Normal <0.87 [facility] Abs Neut 8.21 k/uL High 1.45-7.50 [facility] Absolute nRBC <0.01 Normal <0.01 [facility] Basophils/100 WBC (Bld) 0.6 % Normal [facility] DTYPE Auto Diff Normal [facility] Eosinophils (Bld) [#/Vol] 0.17 10*3/uL Normal <0.46 [facility] Eosinophils/100 WBC (Bld) 1.6 % Normal [facility] Erythrocyte distribution width (RBC) [Ratio] 13.9 % Normal 11.5-15.0 [facility] Hematocrit (Bld) [Volume fraction] 37.0 % Normal 36.0-46.0 [facility] Hemoglobin (Bld) [Mass/Vol] 12.0 g/dL Normal 11.5-15.5 [facility] Lymphocytes (Bld) [#/Vol] 1.29 10*3/uL Normal 1.00-4.00 [facility] Lymphocytes/100 WBC (Bld) 12.4 % Normal [facility] MCH 28.0 pG Normal 26.0-34.0 [facility] MCHC (RBC) [Mass/Vol] 32.4 g/dL Normal 30.5-36.0 [facility] MCV (RBC) [Entitic vol] 86.2 fL Normal 80.0-100.0 [facility] Monocytes/100 WBC (Bld) 6.2 % Normal [facility] Neutrophils/100 WBC (Bld) 79.2 % Normal [facility] NRBCs 0.0 /100 WBC Normal 0 [facility] Platelet mean volume (Bld) [Entitic vol] 9.7 fL Normal 9.0-12.7 [facility] Platelets (Bld) [#/Vol] 328 10*3/uL Normal 150-400 [facility] RBC (Bld) [#/Vol] 4.29 10*6/uL Normal 3.90-5.20 [facility] WBC (Bld) [#/Vol] 10.37 10*3/uL Normal 3.70-11.00 [facility] CT LUMBAR SPINE WO IVCONon 1 CT LUMBAR SPINE WO IVCON * * *Final Report* * * DATE OF EXAM: Nov 16 2020 2:37PM [facility] 0508 - CT LUMBAR SPINE WO IVCON / PROCEDURE REASON: Back pain, progressive neurologic deficit * * * * Physician Interpretation * * * * RESULT: EXAMINATION: CT LUMBAR SPINE WO IVCON CLINICAL HISTORY: Back pain, progressive neurologic deficit TECHNIQUE: Spiral, high resolution axial images were obtained from the thoracolumbar junction to the sacrum with sagittal and coronal planar reconstructions. MQ: [id number]_3 CT Radiation dose: Integrated Dose-Length Product (DLP) for this visit = 1115 mGy*cm. CT Dose Reduction Employed: Automated exposure control (AEC) COMPARISON: None. RESULT: Please note that this examination is limited secondary to body habitus and respiratory motion artifact. There is severe disc space narrowing seen at the thoracolumbar junction as well as at L1-L2, L2-L3, L3-L4 and L5-S1 with associated vacuum disc phenomena seen at these levels. Posterior osteophytes, with associated hypertrophic changes cause bilateral foraminal encroachment at these levels. There is no vertebral body compression fracture or prevertebral soft tissue swelling. There is multilevel facet hypertrophic degenerative change. Vacuum disc phenomena seen involving the sacroiliac joint spaces, bilaterally. There is bilateral hip degenerative change. There is a small hiatal hernia. Mild dependent atelectasis. Prominence of the chris of the right hemidiaphragm. IMPRESSION: Limited examination. Marked multilevel degenerative change, with associated vacuum disc phenomena seen at multiple levels. Posterior osteophytes and hypertrophic change at multiple levels cause bilateral foraminal encroachment. There is no acute fracture. Transcribed Using Voice Recognition Transcribe Date/Time: Nov 16 2020 2:42P Dictated by: GABRIELLE NORMAN MD This examination was interpreted and the report reviewed and electronically signed by: GABRIELLE NORMAN MD on Nov 16 2020 2:46PM EST [id number] Normal [facility] Comp Metabolic Panelon 11-16 Albumin [Mass/Vol] 4.5 g/dL Normal 3.5-5.0 [facility] ALP [Catalytic activity/Vol] 84 U/L Normal 34-123 [facility] ALT [Catalytic activity/Vol] 33 U/L Normal 7-38 [facility] Anion gap [Moles/Vol] 13 mmol/L Normal 0-15 [facility] AST [Catalytic activity/Vol] 29 U/L Normal 13-35 [facility] Bilirubin [Mass/Vol] 0.5 mg/dL Normal 0.2-1.3 [facility] Calcium [Mass/Vol] 9.9 mg/dL Normal 8.5-10.2 [facility] Chloride [Moles/Vol] 103 mmol/L Normal 97-105 [facility] CO2 [Moles/Vol] 26 mmol/L Normal 22-30 [facility] Creatinine [Mass/Vol] 0.82 mg/dL Normal 0.58-0.96 [facility] eGFR- Amer. >60 Normal [facility] eGFR-All Other Races >60 Normal [facility] Comment on above: Result Comment: eGFR (Estimated GFR) Units of measure: mL/min/1.73 meters squared eGFR is derived from the reexpressed MDRD Study equation using the following parameters: serum creatinine, age, gender and race. The creatinine assay has been calibrated to be traceable to IDMS. An eGFR <60 mL/min/1.73m2 for >3 months is consistent with chronic kidney disease. Refer to KDOQI guidelines for clinical interpretation. In patients with unstable renal function, e.g. those with acute kidney injury, the eGFR may not accurately reflect actual GFR. Glucose [Mass/Vol] 107 mg/dL High 74-99 [facility] Potassium [Moles/Vol] 4.0 mmol/L Normal 3.7-5.1 [facility] Protein [Mass/Vol] 7.3 g/dL Normal 6.3-8.0 [facility] Sodium [Moles/Vol] 142 mmol/L Normal 136-144 [facility] Urea nitrogen [Mass/Vol] 19 mg/dL Normal 7-21 [facility] ED NOTEon 11-16-2020 ED NOTE HNO ID: [id number] Author: Daya Guevara RN Service: ? Author Type: Registered Nurse Type: ED Notes Filed: 11/16/2020 9:24 PM Note Text: Patient report called to Kenneth JOHNSTON on the third floor. Admission discussed and understood by patient and family member present at the bedside. Patient stable, vitals as charted. Patient currently in wheelchair but will moved to bed for transport. Patient shows no signs of distress at this time. [facility] ED NOTE HNO ID: [id number] Author: Daya Guevara RN Service: ? Author Type: Registered Nurse Type: ED Notes Filed: 11/16/2020 8:27 PM Note Text: NOM called for bariatric bed. [facility] ED PROV NOTEon 11-16-2020 ED PROV NOTE HNO ID: [id number] Author: Lito Latham DO Service: Emergency Medicine Author Type: Physician Type: ED Provider Notes Filed: 11/16/2020 6:12 PM Note Text: ED Provider Note Patient Name: Sonia Karimi SERVICE DATE: 11/16/20 History Patient presents with: Numbness: Bilateral leg numbness x2 weeks, worsening bilateral hand numbness. History of same complaints, neck surgery in 2019 Difficulty Ambulating Patient is a 64-year-old female past medical history of COPD, hyperlipidemia, hypertension who was sent to the emergency room by her wildland fire operations specialist Dr. Lucas. Patient complains of bilateral leg discomfort numbness and weakness for the last month. Right leg worse than the left. Is having difficulty walking and not been able to over the last 2 weeks. No difficulty moving her bowels no difficulty urinating. No fevers no chills no back injections. No abdominal pain nausea or vomiting. PAST MEDICAL HISTORY Diagnosis Date - Cervical polyp - COPD (chronic obstructive pulmonary disease) (HCC) - Hyperlipidemia - Hypertension - Minor depression PAST SURGICAL HISTORY Procedure Laterality Date - PAST SURGICAL HISTORY OF 02/02/2018 neck surgery - REMOVAL ADENOIDS,PRIMARY,<12 Y/O Adenoidectomy - REMOVAL OF TONSILS,<12 Y/O Tonsillectomy FAMILY HISTORY Problem Relation Age of Onset - Cancer Father leukemia - Diabetes Father - Cancer Mother skin cancer - Heart Mother tachycardia - Cancer Paternal Grandfather stomach cancer - Cancer Paternal Grandmother colon to liver - Cancer Sister cancer in situ - breast - Diabetes Sister Social History Tobacco Use - Smoking status: Former Smoker - Smokeless tobacco: Never Used - Tobacco comment: Quit smokig 38 years ago Substance and Sexual Activity - Alcohol use: No - Drug use: No - Sexual activity: Not on file ALLERGIES Allergen Reactions - Ativan [Lorazepam] Hives - Neomycin Itching Hives, itching Review of Systems Constitutional: Negative for fever. HENT: Negative for ear pain, sinus pain and sore throat. Eyes: Negative for visual disturbance. Respiratory: Negative for cough and shortness of breath. Cardiovascular: Negative for chest pain. Gastrointestinal: Negative for abdominal pain, nausea and vomiting. Genitourinary: Negative for dysuria. Musculoskeletal: Positive for back pain. Negative for neck pain. Skin: Negative for color change. Neurological: Positive for weakness and numbness. Negative for dizziness and headaches. All other systems reviewed and are negative. Physical Exam BP 127/63 Pulse 73 Temp (Src) 98.6 (Oral) Resp 18 Ht 5' 6 (1.68m) Wt 315 lb (142.9kg) SpO2 96% BMI 50.87 kg/(m2). Physical Exam Constitutional: Appearance: Normal appearance. She is well-developed. She is obese. HENT: Head: Normocephalic and atraumatic. Nose: Nose normal. Mouth/Throat: Mouth: Mucous membranes are moist. Pharynx: Uvula midline. Eyes: Conjunctiva/sclera: Conjunctivae normal. Pupils: Pupils are equal, round, and reactive to light. Neck: Trachea: Trachea normal. Cardiovascular: Rate and Rhythm: Normal rate and regular rhythm. Pulses: Normal pulses. Heart sounds: Normal heart sounds. Pulmonary: Effort: Pulmonary effort is normal. Breath sounds: Normal breath sounds. Abdominal: General: Bowel sounds are normal. Palpations: Abdomen is soft. Abdomen is not rigid. Tenderness: There is no abdominal tenderness. There is no guarding or rebound. Negative signs include McBurney's sign. Musculoskeletal: Cervical back: Neck supple. Comments: Positive subtle weakness at the knee right versus left, positive subtle weakness of the ankle right worse than left, dorsalis pedis pulse strong bilaterally, brisk capillary refill. Patient with subjective decreased sensation to light touch of the legs but does feel touch. Positive discomfort of the lumbar back generally without point tenderness. Skin: General: Skin is warm and dry. Capillary Refill: Capillary refill takes less than 2 seconds. Neurological: Mental Status: She is alert and oriented to person, place, and time. Cranial Nerves: No cranial nerve deficit. Psychiatric: Speech: Speech normal. Behavior: Behavior normal. Thought Content: Thought content normal. Diagnostic Testing ED Labs Ordered and Reviewed COMP METABOLIC PANEL - Abnormal; Notable for the following components: Result Value Ref Range Glucose 107 (*) 74 - 99 mg/dL All other components within normal limits CBC + DIFF - Abnormal; Notable for the following components: Abs Neut (ANC) 8.21 (*) 1.45 - 7.50 k/uL All other components within normal limits MAGNESIUM BLD C-REACTIVE PROTEIN (CRP) EXPEDITED COVID19 Procedures ED Course / Clinical Impression ED Course as of Nov 17 1811 Lito Car Yeison's Documentation Mon Nov 16, 2020 1250 Received call from patient's back doctor, fady (more content not included)... Normal [facility] Expedited [id number] 11-17-19 21 SARS-CoV-2 (COVID-19) RNA CHEPE+probe Ql (Unsp spec) Nasopharyngeal Swab Normal [facility] SARS-CoV-2 (COVID-19) RNA CHEPE+probe Ql (Unsp spec) Negative for COVID19 (SARS CoV2) by RT-PCR or equivalent method. Normal Negative for COVID19 (SARS CoV2) by RT-PCR or equivalent method. [facility] Comment on above: Result Comment: This test has been authorized by FDA under an Emergency Use Authorization (EUA). HISTORY PHYSICALon HISTORY PHYSICAL HNO ID: [id number] Author: Neo Gar DO Service: General Internal Medicine Author Type: Physician Type: HANDP Filed: 11/17/2020 7:29 PM Note Text: SERVICE DATE: 11/16/2020 SERVICE TIME: 6:53 AM HOSPITAL MEDICINE HISTORY AND PHYSICAL NOTE PCP: Neo Gar DO Coverage: [facility] SP IM Between the hours 7AM to 5PM: please page the pager number located at the bottom of the note. Between the hours 5PM to 7AM: please page the pager number according to the following ([place] on ODD months; [place] for EVEN months): Attending Floor ICU [place] [phone] [place] [phone] LOS: 1 SUBJECTIVE Chief Complaint: Bilateral lower extremity weakness HPI: Sonia Karimi is a 64-year-old female with past medical history of obesity, IRIS on BiPAP, COPD, hypertension, hyperlipidemia, cervical myopathy and spondylosis, bilateral knee DJD, and known lumbar spondylosis who was sent to the ER by her chronic pain physician, Dr. Fritz, for new onset bilateral extremity weakness and paresthesias (R >L) x1 month in origin that a progressively been getting worse. Patient says that for the past month she has been having weakness in both of her lower extremities. She has had associated numbness/tingling and discomfort. This feeling extends all the way from her feet up to her abdomen and includes her perineum. She is now unable to ambulate and has been getting around at home, where she lives alone, by scooting herself around in a wheelchair and utilizing a walker to help transfer herself. Although this has been going on progressively for 1 month, she feels that it has been acutely worsening in the past 2 weeks. She has had 2 associated mechanical falls in the past week. Her last fall last Monday, she does say she hit her head but she did not lose consciousness. During both falls, patient says that she landed on her buttocks. She did not notice an acute worsening after the first fall, however she does feel like her numbness got worse after the second fall. In general her weakness and numbness is worse on the right side compared to the left. She also noticed that she was able to feel the cold wheelchair foot rest with her left foot but not her right foot. Patient does denies acute pain, she does have chronic hip and knee pain but it is not worse than her baseline. She has not been having any fevers, chills, headaches, dizziness, confusion, vision changes, chest pain, shortness of breath, lightheadedness. Patient has no associated loss of bowel or urinary function. She denies fevers or chills. She has no nausea or vomiting or abdominal pain. Patient's last vaccination in the EMR was her COVID-19 Materna vaccination on 03/25 and 04/22/2020 respectively. In the ER, patient was hemodynamically stable. Per patient's pain management doctor, MRI was attempted. Patient was unable to complete the exam due to her significant claustrophobia. Additional sedation was offered but patient said that she cannot do the test. CT lumbar spine was ordered instead which showed multilevel degenerative change associated with vacuum disc phenomena at multiple levels and associated posterior osteophytes with hypertrophic change causing foraminal encroachment. There were no acute fractures. CT brain and CT cervical spine were negative for fracture or signs of stroke. Incidental finding was a new thyroid nodule and not an emergent but prompt thyroid ultrasound was recommended. Transfer was attempted to a neurosurgical center, however there was no bed availability. Patient was admitted for further testing and possible MRI with sedation. Review of Systems Constitutional: Negative for chills, diaphoresis, fever, malaise/fatigue and weight loss. HENT: Negative for congestion, ear pain, hearing loss, sore throat and tinnitus. Eyes: Negative for blurred vision and double vision. Respiratory: Negative for cough, sputum production, shortness of breath and wheezing. Cardiovascular: Negative for chest pain, palpitations and leg swelling. Gastrointestinal: Negative for abdominal pain, constipation, diarrhea, heartburn, nausea and vomiting. Genitourinary: Negative for dysuria, frequency and urgency. Musculoskeletal: Positive for back pain, falls and joint pain. Negative for myalgias and neck pain. Skin: Negative for itching and rash. Neurological: Positive for sensory change and focal weakness. Negative for dizziness, speech change, seizures, weakness and headaches. Endo/Heme/Allergies: Negative for polydipsia. Does not bruise/bleed easily. Psychiatric/Behavioral: Negative for depression and suicidal ideas. All other systems reviewed and are negative. PAST MEDICAL HISTORY Diagnosis Date Cervical polyp COPD (chronic obstructive pulmonary disease) (HCC) Hyperlipidemia Hypertension Minor depression PAST SURGICAL HISTORY Procedure Laterality Date PAST SURGICAL HISTORY OF 02/02 (more content not included)... Normal [facility] Magnesiumon 11-16-2020 Magnesium [Mass/Vol] 2.1 mg/dL Normal 1.7-2.6 [facility] Clinical Summary: HMSPatient IDon 01-18-2019 OOP [facility] Work Phone: XR CERVICAL 2V AP/LATon XR CERVICAL 2V AP/LAT * * *Final Report* * *DATE OF EXAM: Feb 15 2018 9:51AM HCX 5308 - XR CERVICAL 2V AP/LAT / REASON: Cervical spondylosis with myelopathy * * * * Physician Interpretation * * * *RESULT: EXAMINATION / TECHNIQUE: XR CERVICAL 2V AP/LATHISTORY: PATIENT STATES POST SURGICAL FOLLOWUP Cervical spondylosis with myelopathy .COMPARISON: 01/20/2018RESULT:Counting reference: Craniocervical junction. Anatomic Variants: NoneIntact anterior plate and screw fixation is noted at C3/4 with interbody bone graft in place. There is osseous fusion at C4/5. There is minimal anterolisthesis of C2 on C3 and C3 on C4, stable. No prevertebral soft tissue swelling. Lower cervical discogenic degenerative changes again noted.IMPRESSION:Postopera tive and degenerative changes.Transcribed Using Voice RecognitionTranscribe Date/Time: Feb 15 2018 9:59ADictated by: SELENA DUNN MDThis examination was interpreted and the report reviewed and electronically signed by: SELENA DUNN MD on Feb 15 2018 10:00AM [id number] Normal [facility] CASE MANAGEMon 02-07-2018 CASE MANAGEM HNO ID: [id number] thor: Ivana (Rn) SHERRELL Wardervice: Care ManagementAuthor Type: Registered NurseType: Care Mgt Progress NoteFiled: 02/07/2018 3:08 PMNote Text:CARE MANAGEMENT DISCHARGE NOTESERVICE DATE: 02/07/2018SERVICE TIME: 3:05 PM LOS: 8 daysAdmission Date: 01/30/2018DISCHARGE ARRANGEMENT (list agency and phone number)Acute rehabCAREGIVER ASSESSMENT:Caregiver is ready, willing and able to meet the patient's needs asrecommended by the inter-professional team? NoPatient's transition needs and plan for meeting these needs: acute rehabDoes the patient have an acute stroke diagnosis, or has the patient had astroke during this admission? NoHANDOFF COMMUNICATION:n/aTRANSPORT ATION ARRANGEMENTS:Car brotherADDITIONAL CONTACT RESOURCES: see belowDischarge Information Row Name Surgery in Location [facility] OR on 02/02/2018 Admission (Current) from01/30/2018 in [facility]Tra[facility] Rehab Facility Agency ? [facility] Phone# ? [phone] is discharged to [facility] today. Patient'sbrother will transport her about 3:30 pm today and patient is agreeablewith the plan. Nurse Meche to call report to the facility.SIGNATURE: Ivana Ward RN PATIENT NAME: Sonia RochaATE: February 07, 2018 : 3:05 PM PAGER/CONTACT #: [phone] [facility] CASE MANAGEM HNO ID: [id number] thor: Ivana (Rn) SHERRELL Wardervice: Care ManagementAuthor Type: Registered NurseType: Care Mgt Progress NoteFiled: 02/07/2018 1:53 PMNote Text:CARE MANAGEMENT PROGRESS NOTESERVICE DATE: 02/07/2018SERVICE TIME: 1:52 PM LOS: 8 daysNeeds Prior to Discharge: Insurance [facility]Up[facility] and [facility] insurance [facility].Patient informed of delay. Will follow.SIGNATURE: Ivana Ward RN PATIENT NAME: Sonia RochaATE: February 07, 2018 : 1:52 PM PAGER/CONTACT #: [phone] [facility] NURSING PROGon 02-07-2018 Protein mass conc HNO ID: [id number] thor: Meche ([place]) SHERRELL Mckeonervice: (none)Author Type: Registered NurseType: Nursing Progress NoteFiled: 02/07/2018 4:53 PMNote Text: Nursing Progress NotePatient Name: Sonia KarimiMRN: [id number] Location: [place] [address] [address] Daily Note:Assumed care of pt. AANDOx3. Dressing to anterior neck clean dryand intact. Pt c/o L knee pain. N/T to BUE that was present prior to sx.Pt states this is improving. Vitals stable. Bed alarm on. Assessment ascharted. Call light in reach. No other needs.1500 No change to initial assessment.1600 [facility] Pt left in stable condition with all of her belongings. Dischargepaperwork given to pt to give to facility.This note was completed by: Meche Mckeon RN [facility] THERAPY NTon 02-07-2018 THERAPY NT HNO ID: [id number] thor: Ainsley (Pediatrics Hospitalist) KaiserService: Physical TherapyAuthor Type: Physical Therapy AssistantType: Therapy (PT/OT/Speech/Resp)Filed: 02/07/2018 10:36 AMNote Text: -------Attestation signed by Carlos RubioPt) Octavia at 02/07/2018 11:35 AMI reviewed and agree with the documentation corresponding to this therapyvisit.SIGNATURE: Carlos Dudley, PTDATE: February 07, 2018TIME: 11:35 AM ----Physical Therapy TreatmentSERVICE DATE: 02/07/2018SERVICE TIME: 924 to 1004ROOM: [id number] Discharge Disposition: Acute RehabRecommended Discharge Disposition Comments: pt with limited functionalmobility - BUE/BLE weakness making mobility difficult; will benefit fromAR prior to d/c home.Justification For Post Acute Needs: Anticipate that patient will requiredaily (5x/wk) skilled therapy in a post-acute facility setting at the timeof acute hospital discharge;Anticipate patient will tolerate 3 hours ofdaily therapy at the time of admission to post-acute settingRecommended Discharge Equipment: No equipment needs anticipatedPT Recommendations to Nursing: Ambulate with device;Transfer to/fromchair;OOB for Meals;With assist of 2 peopleDevice: Wheeled WalkerPT 6 Clicks Score: 17Precautions/Activity Restrictions: Fall Risk;SpinePrecaution/Activ ity Restriction Comments: soft collar when in a carASSESSMENT :Patient Disposition at Start of Session: Supine in Bed;CallBell in Reach;SCDsPatient Disposition at End of Session: (sitting eob post session)Tolerance Limited By PainPhysical Therapy Problem List: Balance Impaired;Functional MobilityImpairment;Decreas ed Strength;Decreased Range Of Motion;Decreased ActivityTolerance;Impaired Self Care;Safety Deficits;PainPatient /Caregiver Goals: Go HomeGoals for Plan of Care:Able to perform HEP with: Verbal Cues OnlyTransfer supine to/from sit with: Modified IndependentTransfer sit to/from stand with: Modified IndependentAmbulate with: Modified IndependentDistance: >100ft x 2Device: Wheeled WalkerAmbulate up and down steps with: Contact Guard AssistanceNumber of steps: 3Device: RailTransfer: All functional transfers with mod IProgress Toward Goals: Progressing as expectedRehab Potential: GoodPLAN:Treatment Frequency (times per week): 7Treatment Duration (number): (as able LOS) Current admissionTreatment Interventions: Education;Functional Mobility Training;Self Care/ Home ManagementPlan of Care developed with: PatientTREATMENT INTERVENTIONS:Therapy Diagnosis: Reduced mobility-otherIntervention s Provided: Therapeutic Activity (33798)Therapeutic Activity (53224) Treatment Minutes: 403 unitsSkilled Intervention(s): Education with sitting balance, transfers, therexSitting eob beginning of session. Seated pt performed B ue and le therexalong with postural therex.Pt practiced sit to stand with min assist x 2 from elevated bed. Using wwabl to performed left mip. Not able to performed right mip secondary toleft knee hurting so much with weigthbearing. Pt practiced sit to stand x2. Each static stand about 2 minute with min assist. Seated eob postsession. Set up for Breakfast, Call chan in reachTotal Timed Code Treatment Minutes: 40Total Treatment Time (minutes): 40SUBJECTIVE:Current Hospital Course: Chart reviewed and no significant medical updatesrelevant to therapy were notedReason for Physical Therapy Consult : Sx 02/02/18 Ant DisectomydecompressionRele vant Past Medical History: cervical myopathy; frequent fallsPatient Report: pt alert, cooperative, pleasantHome EnvironmentPatient Lives With: Family (niece, who works)Assistance Available: Part timeEntry To Home: Stairs;With RailNumber Of Stairs Into Home: 3Number Of Stairs To Bed/Bath: 0Tub/Shower Type: tub showerLaundry: first floor-pt completedEquipment Owned: Cane;Grab Bars-Shower;RollatorPrior Functional Level: Within Functional Limits;Required AssistanceAssistance Required With: Cleaning;Laundry;MealsPrio r Functional Level Comments: 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; 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; usually IND with ADL/IADL; drivesOBJECTIVE:CURRENT FUNCTIONAL STATUS:Current Functional Mobility Assist Level Additional InformationRolling Contact Guard AssistanceSupine to Sit Minimal AssistanceSit to Supine (pt remained in chair post session)Scooting SupervisionSit to Stand Minimal AssistanceStand to Sit Minimal AssistanceBed to ChairToilet/CommodeGaitSta irsCurb StepCar TransferGeneral Gait Deviations: Veronica decreasedBalance: Static Sitting;Dynamic Sitting;Static Standing;Dynamic StandingStatic Sitting Balance: IndependentDynamic Sitting Balance: SupervisionStatic Standing Balance: Contact Guard AssistanceDynamic Standing Balance: Minimal AssistanceActivity Tolerance: Standing ActivityStanding Activity: stood at walker for balance, wt shiftingStanding Activity Tolerance (in minutes): 0.75JH-HLM: 6: Walk 10 steps or morePlease see discipline specific clinical documentation flowsheet forcomplete details for this therapy evaluation/treatment.TINO NARAYAN: Ainsley Shah, PT Assist PATIENT NAME: Sonia HemphillueDATE: February 07, 2018 : 10:29 AM [facility] THERAPY NT HNO ID: [id number] thor: Trista Landeros (Cota)ervice: Occupational TherapyAuthor Type: Occupational Therapy AssistantType: Therapy (PT/OT/Speech/Resp)Filed: 02/07/2018 10:33 AMNote Text: -------Attestation signed by Wayne Rivas at 02/07/2018 2:51 PMI reviewed and agree with the documentation corresponding to this therapyvisit.SIGNATURE: Wayne Rivas OTR/LDATE: February 07, 2018TIME: 2:51 PM ----Occupational Therapy TreatmentSERVICE DATE: 02/07/2018SERVICE TIME: 0925 to 1005ROOM: [id number] Discharge Disposition: Acute RehabRecommended Discharge Disposition Comments: to maximize level ofindependence with ADL's, functional transfers and functional ambulationJustification For Post Acute Needs: Anticipate patient will tolerate 3hours of daily [facility];Good sitting tolerance;Living thecommunity premorbidly;MotivatedOT Recommendations to Nursing: ADL?s in chair;OOB for meals;Transfer toChair;With assist of 2 peopleEquipment: Wheeled WalkerOT 6 Clicks Score: 16Precautions/Activity Restrictions: Fall Risk;SpinePrecaution/Activ ity Restriction Comments: soft collar when in a carASSESSMENT:Patient presents with cervical lami. Requires skilled OT for self care andfunctional mobility'.Patient Disposition at Start of Session: (sitting EOB)Patient Disposition at End of Session: (sitting EOB)Tolerated Full SessionOccupational Therapy Problem List: Education Deficit;Pain;SafetyDeficit s;Impaired Self Care;Decreased Activity Tolerance;Decreased RangeOf Motion;Decreased Strength;Functional Mobility Impairment;BalanceImpaired ;Sensory DeficitPatient /Caregiver Goals: Go To RehabGoals for Plan of Care:Upper Body Dressing with: Set UpLower Body Dressing with: SupervisionChair Transfer with: SupervisionToilet Transfer with: SupervisionTolerate (minutes of functional activity): 45Functional Activity with: SupervisionProgress Toward Goals: Progressing as expectedRehab Potential: GoodPLAN:Treatment Frequency (times per week): 5 (as able) Current admissionTreatment Interventions: Education;Self Care / Home Management;FunctionalMobil ity Training;Balance TrainingPlan of Care developed with: PatientTREATMENT INTERVENTIONS:Therapy Diagnosis: Reduced mobility-other;Decreased activities of dailyliving (ADL)Interventions Provided: Therapeutic Activity (33624);Self Care HomeManagement (93352)Therapeutic Activity (13857) Treatment Minutes: 151 unitSkilled Intervention(s): Instruction in sit to stand technique with properhand placement and body positioning at edge of bed/chairInstruction in stand to sit technique with lower extremities touchingchair/bed and reaching back for surfaceInstruction in sit to and from stand technique with proper hand placementand body positioning at edge of bed/chairPt stood 3x from EOB with bed elevated, poor sit to stand technique,attempted pushing from bed pt required pulling from stabilized walkerSelf Chcf Management (51097) Treatment Minutes: 252 unitsSkilled Intervention(s): Instructed in post-op instructions during ADLsrecalls cervical lami precautons, required frequent cues for adheranceduring treatmentInstructed in energy conservation v/c for activity pacingProvided cuing for hand/oral hygiene set up in sittng pt unable tocomplete self care tasks in standing at this timeCues for sequencing in hygiene tasks mod for toilet hygieneProvided instruction, cuing and facilitation for upper body dressing minProvided instruction, cuing and facilitation for lower body dressing minwith compensatory technique for donning socks, mod stand to arrangepoor functional mobility at this timeTotal Timed Code Treatment Minutes: 40Total Treatment Time (minutes): 40SUBJECTIVE:Current Hospital Course: Chart reviewed and no significant medical updatesrelevant to therapy were notedReason for Occupational Therapy Consult: functional assessmentRelevant Past Medical History: cervical myopathy; frequent fallsPatient Report: see aboveHome EnvironmentPatient Lives With: Family (niece, who works)Assistance Available: Part timeEntry To Home: Stairs;With RailNumber Of Stairs Into Home: 3Number Of Stairs To Bed/Bath: 0Tub/Shower Type: tub showerLaundry: first floor-pt completedEquipment Owned: Cane;Grab Bars-Shower;RollatorPrior Functional Level: Within Functional Limits;Required AssistanceAssistance Required With: Cleaning;Laundry;MealsPrio r Functional Level Comments: 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; 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; usually IND with ADL/IADL; drivesOBJECTIVE:Cognition/ Communication DeficitsOrientation Deficits: (WFL)Responsiveness: Alert;AwakeFollows Commands: 3-step Commands;Cueing NeededExecutive Function Deficits: Safety AwarenessSafety Awareness Deficit: Minimal impairmentCURRENT FUNCTIONAL STATUS:Current Activities of Daily Living Assist LevelFeeding Set UpGrooming Contact Guard AssistanceBathing Upper Body Minimal AssistanceBathing Lower Body Moderate AssistanceDressing Upper Body Minimal AssistanceDressing Lower Body Moderate AssistanceToileting Moderate AssistanceInstrumental Activities of Daily Living Assist LevelMeal/Beverage PrepLight CleaningLaundryMedication Management with StrategiesFunctional Mobility Assist LevelRolling (Pt up in chair and declined to return to bed at this time)Supine to Sit SupervisionSit to SupineScooting Contact Guard AssistanceSit to Stand Minimal AssistanceStand to Sit Minimal AssistanceBed to ChairToilet/Commode Minimal AssistanceFunctional Mobility Minimal Assistance Wheeled WalkerBalance: Static Sitting;Dynamic Sitting;Static Standing;Dynamic StandingStatic Sitting Balance: IndependentDynamic Sitting Balance: SupervisionStatic Standing Balance: Contact Guard AssistanceDynamic Standing Balance: Minimal AssistanceActivity Tolerance: Standing ActivityStanding Activity: amb to BRStanding Activity Tolerance (in minutes): 4Please see discipline specific clinical documentation flowsheet forcomplete details for this therapy evaluation/treatment.SIGNA TURE: SOCORRO Contreras PATIENT NAME: Sonia Lozoya DerueDATE: February 07, 2018 : 10:28 AM [facility] NURSING PROGon 02-06-2018 Protein mass conc HNO ID: [id number] thor: Carli (Rn) SHERRELL Joneservice: (none)Author Type: Registered NurseType: Nursing Progress NoteFiled: 02/07/2018 5:27 AMNote Text: Nursing Progress NotePatient Name: Sonia KarimiMRN: [id number] Location: [place] [address]/[id number] Assumed care of patient--bedside report received. Family at bedside.Patient awake in bed eating dinner. Alert and oriented x 3. Respirationseupneic. Speech clear and appropriate. States pain is ok and declined needfor pain medication at this time. Pain board reviewed and discussed.Appears comfortable. No s/s of distress. Safety interventions discussed,patient understands to use call light for assistance. Denies any otherneeds. Bed alarm on. Call light within reach. All safety precautionsmaintained.This note was completed by: Carli Jones RN [facility] Protein mass conc HNO ID: [id number] thor: Karis (Preston) Katrin Smithice: (none)Author Type: Registered NurseType: Nursing Progress NoteFiled: 02/06/2018 6:37 PMNote Text: Nursing Progress NotePatient Name: Sonia KarimiMRN: [id number] Location: [place] [address]/[address] [address] Assumed care of patient, bedside report received. She issleeping. CPAP noted at bedside, Bed alarm is on.Denies any needs, call light in reach and bed alarm is on.Neck dressing is dry and intact. No drainage noted. Reports numbnessin hand and arms, not new., States numbness that was in her legs beforethe surgery is gone. Toes are warm and mobile with brisk cap refill.Call light in [id number] One person assist to [id number] Resting in bed, denies any needs. Family at bedside.1455 Resting in bed, denies any needs, family has gone home. Assessmentis as charted.This note was completed by: Karis SMITH RN [facility] PROGRESSon 02-06-2018 Protein mass conc HNO ID: [id number] thor: Francisco Linton: General Internal MedicineAuthor Type: PhysicianType: Progress NotesFiled: 02/06/2018 2:10 PMNote Text:PROGRESS NOTE - INTERNAL MEDICINEPATIENT NAME: Sonia KarimiMRN: [id number] PHYSICIAN: Francisco TaylorUBJECTIVEINTERVAL HISTORY OF PRESENT ILLNESS: Comfortable. Upper extremitystrength slightly improved. No other acute issues.OBJECTIVEPHYSICAL EXAM:BP 134/67 Pulse 75 Temp 36.9 ?C (98.4 ?F) (Oral) Resp 16 Ht167.6 cm (5' 6) Wt 125.9 kg (277 lb 9 oz) SpO2 95% BMI 44.80kg/m?Intake/Output Summary (Last 24 hours) at 02/06/18 1409Last data filed at 02/06/18 1000 Gross per 24 hourIntake 820 mlOutput 1725 mlNet -905 mlGENERAL: Alert, no acute distress, cooperative, obeseSKIN: Skin color, texture, turgor normal. No rashes or lesions.NECK: Anterior surgical dressing noted.LUNGS: Lungs clear to auscultationCARDIAC: Normal S1 and S2; no rubs, murmurs, or gallopsABDOMEN: Abdomen soft, non-tender, BS normal [id number]: No LE edemaNEURO: AANDOx3, reports increased upper extremity strength.PULSES: 2+ radial, 2+ carotidDATA:Diagnostic tests reviewed for today's visit:Most recent labsMost recent imagingCBC, Coags, BMP, Mg, PhosLiver Function, Amylase, AND LipaseCardiac EnzymesASSESSMENT AND PLANCervical myopathy [G72.9]- s/p ACDF C3-4HTN- c/w amlodipine, maxzideHLD: statinThyroid mass- noted on MRI- thyroid US: benign nodulesHypokalemia- replete, monitorconstipation- c/w colaceOSA- CPAPObesityDVT prophylaxis- SCDs?Neurosurgery signed off.Acute rehabilitation Discharge pending.Francisco Dow MD [facility] CASE MANAGEMon 02-05-2018 CASE MANAGEM HNO ID: [id number] thor: Ivana (Rn) Ed, RNService: Care ManagementAuthor Type: Registered NurseType: Care Mgt Progress NoteFiled: 02/05/2018 3:21 PMNote Text:CARE MANAGEMENT PROGRESS NOTESERVICE DATE: 02/05/2018SERVICE TIME: 3:19 PM LOS: 6 days Discharge orders faxed to Sonia at [facility].Left VM asking that she call this sba underwriter back if she gets insuranceapproval. Await call and patient informed. Will follow.SIGNATURE: Ivana Ward RN PATIENT NAME: Sonia HemphillueDATE: February 05, 2018 : 3:19 PM PAGER/CONTACT #: [phone] [facility] CASE MANAGEM HNO ID: [id number] thor: Ivana (Rn) SHERRELL Wardervice: Care ManagementAuthor Type: Registered NurseType: Care Mgt Progress NoteFiled: 02/05/2018 10:55 AMNote Text:CARE MANAGEMENT PROGRESS NOTESERVICE DATE: 02/05/2018SERVICE TIME: 10:53 AM LOS: 6 daysNeeds Prior to Discharge: Insurance AuthorizationSpoke with Sonia at [facility] and they can acceptpatient today pending insurance approval. [facility] Spoke with patient and she is agreeable with theplan. Patient states he family can transport her at discharge. Florencia.SIGNATURE: Ivana Ward RN PATIENT NAME: Sonia HemphillueDATE: February 05, 2018 : 10:53 AM PAGER/CONTACT #: [phone] [facility] CONSULTon 02-05-2018 CONSULT HNO ID: [id number] thor: Ramirez Rosee: Physical Medicine AND RehabilitationAuthor Type: PhysicianType: ConsultsFiled: 02/05/2018 2:46 PMNote Text:PMR CONSULT- POST ACUTE ASSESSMENTSERVICE DATE: 02/05/2018REQUIRED CERT DATA (POTENTIAL ACUTE INPATIENT REHABILITATION FACILITY- IRFPATIENTS ONLY)Deficits: nutrition, debility, pain limiting function, balance andrighting reactions, adjustment to disability, minimal mobility levelresulting in risk for venous thromboembolism, joint range restrictions andhealing surgical sitesDisability: mobility, locomotion and self careRehabilitation Impairment Group: Spinal Cord Dysfunction: fall HxPotential Barriers to Progress/ Discharge: n/a good plan to return homeEstimated Length of Rehabilitation Stay: 14-18 daysExpected Status at Discharge from Rehabilitation:? Eating: Modified Independent? Grooming: Modified Independent? Bathing: Contact Guard? Dressing: Minimal Assist? Transfers: Contact Guard? Ambulation: Modified Independent? Distance: 50+ feet? Assistive Device: Wheeled Walker? 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 Differentialdiagnosis includes degenerative disc diseasesee added list belowCCF HC admitted on 01/30/2018.Hx fall historyDeveloped myelopathic symptoms ocer 3-4 week hxnumbness in all extremities UE>LEs, difficulty with fine motor tasks, Ambchange, weakness UEDiagCervical MyelopathyC3-4 grade 1 spondylolisthesis, C3-4 disk herniation, C3-4 spinal cordcompression, progressive myelopathy.02/02/18 S/PAnterior cervical diskectomy at C3-4 level, anterior cervical partialcorpectomy at C3-4 level, anterior cervical interbody arthrodesisutilizing allogenous bone graft at C3-4, anterior cervical C3-4instrumentation utilizing Croak.it spine instrumentation, application ofVasuer-Wells tongs, utilization of intraoperative microscope,utilization of intraoperative somatosensory motor-evoked potentialmonitoring.?02/04 IMCervical myopathy- s/p ACDF C3-4HTN- c/w amlodipine, maxzideHLD: statinThyroid mass- noted on MRI- thyroid US: benign nodulesHypokalemia- replete, monitorconstipation- c/w colaceOSA- CPAPObesityDVT prophylaxis- SCDsPMANDR REVIEW OF SYSTEMS:Prior to one month agoGENERAL- negative.SKIN- negative.VISION- negative.SWALLOWING- negative.HEARING- negative.CARDIAC- negative.PULMONARY- negative.GI- negative.- negative.MUSCULOSKELETAL- LBPNEUROLOGICAL- negative.CONSTITUTIONAL- obesity.ENDOCRINE- negativeALLERGIESAllergen Reactions- Ativan [Lorazepam] Hives- Neomycin Itching Hives, itching- Neosporin [Benzalko* RashCurrent Facility-Administered Medications:acetaminophen 650 mg tab(s) (TYLENOL) 650 mg ORAL q 4 H PRNamLODIPine 2.5 mg tab(s) (NORVASC) 2.5 mg ORAL DAILYatorvastatin 10 mg tab(s) (LIPITOR) 10 mg ORAL DAILYcloNIDine HCl 0.1 mg tab(s) (CATAPRES) 0.1 mg ORAL AT BEDTIMEdiazePAM 5 mg tab(s) (VALIUM) 5 mg ORAL q 6 H PRNdocusate sodium 100 mg cap(s) (COLACE) 100 mg ORAL BIDferrous sulfate 325 mg tab(s) 325 mg ORAL BID w MEALSgabapentin 200 mg cap(s) (NEURONTIN) 200 mg ORAL BIDHYDROcodone 5 mg - acetaminophen 325 mg tablet (NORCO) 1 tablet ORAL HSPRNlidocaine - VERIFY PATCH OTHER q 8 Hlidocaine 5 % 1 Patch (LIDODERM) 1 Patch TRANSDERMAL DAILYlidocaine patch - REMOVE OTHER AT BEDTIMEmorphine 2 mg injection 2 mg INTRAVENOUS q 2 H PRNNaCl 0.9% iv infusion 75 mL/hr INTRAVENOUS CONTINUOUSondansetron 4 mg tab(s) (ZOFRAN) 4 mg ORAL q 6 H PRNOrondansetron (PF) 4 mg injection (ZOFRAN) 4 mg INTRAVENOUS q 6 H PRNoxyCODONE-acetaminophen 5-325 mg 1-2 tablet (PERCOCET) 1-2 tablet ORAL q 6H PRNpolyethylene glycol 3350 17 g packet (MIRALAX, GLYCOLAX) 17 g ORAL DAILYPRNsertraline 100 mg tab(s) (ZOLOFT) 100 mg ORAL DAILY (8 PM)PAST MEDICAL HISTORYDiagnosis Date- Cervical polyp- COPD (chronic obstructive pulmonary disease) (HCC)- Hyperlipidemia- Hypertension- Minor depressionPAST SURGICAL HISTORYProcedure Laterality Date- REMOVAL ADENOIDS,PRIMARY,<12 Y/O Adenoidectomy- REMOVAL OF TONSILS,<12 Y/O TonsillectomySocial History Marital status: Single Spouse name: Years of education: Number of children:Social History Main Topics Smoking status: Former Smoker Packs/day: 0.00 Years: 0.00 Smokeless tobacco: Never Used Comment: Quit smokig 38 years ago Alcohol use: No Drug use: NoFAMILY HISTORYProblem Relation Age of Onset- Cancer Father leukemia- Cancer Mother skin cancer- Cancer Paternal Grandfather stomach cancer- Cancer Paternal Grandmother colon to liver- Cancer Sister cancer in situ - breast- Diabetes Father- Diabetes Sister- Heart Mother tachycardiaObjectivePHYSIC AL EXAM:BP 147/55 Pulse 65 Temp 36.8 ?C (98.3 ?F) (Oral) Resp 16 Ht167.6 cm (5' 6) Wt 125.9 kg (277 lb 9 oz) SpO2 96% BMI 44.80kg/m?General: Patient seen- an obese adult in no distress.- Patient awake,alert and plerasant, Alert and Oriented x 3, -cooperative. Patient followssimple commands. Follows commands - 2 step. Speech is fluent. Basicauditory comprehensive and verbal expression intact. Patient knows recenthistory.HEENT-Inspec tion of the head is normocephalic. Face symmetric. Pupils round equal. EOMI, no conjunctival injection visual armijo intact.Tongue resting midline. Mucous membranes were moist.THORAX-Heart Regular rate and rhythymLungs decreased breath sounds bilateral basesABDOMEN-soft non-tenderEXTREMITY EXAMINATION-Distal edema assessmentUE No edemaLE No edemaPULSESB/L LE DP /PT 1/4DISTAL SENSATION-LE [id number] JT POSITION SENSELE presentREFLEXESB/L Biceps 3+, Triceps 3+B/L Brachioradialis 3+B/L Finger Flex 3+, Triceps 3+Hoffmans- Brisk B/LRLE Patella 3+, Achilles 3+LLE Patella 2+, Achilles 2+Babins[place] +/- B/LClonus R ankleMOTOR STRENGTHUPPER EXTREMITYGENERALRUE 4/5LUE 4/5LOWER EXTREMITYGENERALRLE 4/5LLE 4/5ACTIVE SLR Movement against gravity R Yes. L Yes]Ataxia / coordination impairment UE/LE MildLABORATORY TESTING:CBC:Recent Labs 02/03/1804WBC 14.75* 10.52 10.21 14.93*HB 11.5 11.3* 11.6 12.2HCT 37.1 35.7* 36.7 37.1PLT 241 235 223 259MCV 84.7 83.4 83.6 82.1RDWCV 13.6 13.8 13.7 13.9NEUTP 85.0 64.7 73.1 78.4ABSNEUT 12.53* 6.81 7.46 11.70*LYMPHP 6.6 25.0 17.1 13.0MONOP 8.2 7.2 6.6 6.4EODINP 0.1 2.7 2.9 1.9COAG:Recent Labs 01/31/18197APTT -- 25.4INR 0.9 --BMP:Recent Labs 02/03/18043GLUC 119* 101* 113* 164*NA 138 139 138 141K 4.1 3.9 4.2 3.5*CHLOR 101 102 99 101CO2 26 25 27 25ANION 11 12 12 15BUN 12 18 20 26*CREAT 0.69 0.75 0.81 0.92CHEM:Recent Labs 02/03/180420/207130 12/18/242902GQ 9.1 9.6 9.9 9.6HEPATIC: No results for input(s): ALKPHOS, ALT, AST, TBILI, LIPASE in thelast 168 hours.URINALYSIS:Recent Labs 1SPGR 1.010UGLUC NegativeUBILI NegativeUKET NegativeUHB NegativeUPROT NegativeUWBC 11*LEUKEST Large*UA:Lab ResultsComponent Value DateSPGR 1.010 01/31/2018UGLUC Negative 01/31/2018UBILI Negative 01/31/2018UKET Negative 01/31/2018UHB Negative 01/31/2018UPROT Negative 01/31/2018UWBC 11-01/31/2018CREATININE CLEARANCEEstimated Creatinine Clearance: 111.7 mL/min (based on SCr of 0.69 mg/dL).Overall functional mobility- fairCURRENT FUNCTIONAL STATUSPHYSICAL THERAPY 6- CLICKS SCORE: PT 6 Clicks Score: 17OCCUPATIONAL THERAPY 6- CLICKS SCORE : OT 6 Clicks Score: 14104/08/17PTRolling Contact Guard Assistance ?Supine to Sit Minimal Assistance ?Sit to Supine (pt remained in chair post session) ?Scooting Supervision ?Sit to Stand Minimal Assistance ?Stand to Sit Minimal Assistance ?Bed to Chair Minimal Assistance Bed To Chair Transfer Type: Stand PivotBed To Chair Transfer Equipment: Wheeled WalkerToilet/Commode Minimal Assistance ?Gait Minimal Assistance Gait Device: Wheeled Walker Gait Distance (feet): 20'h6ZvveanGxtb StepCar Transfer ??General Gait Deviations: Veronica decreasedPt tolerated well remained in the chair post session, nursing is aware,call light in reach .Reviewed precautionsBalance: Static Sitting;Dynamic Sitting;StaticStanding;Dyn amic StandingStatic Sitting Balance: IndependentDynamic Sitting Balance: SupervisionStatic Standing Balance: Contact Guard AssistanceDynamic Standing Balance: Minimal Kunagwbpop23/24/18OTFeedin g Set UpGrooming Contact Guard AssistanceBathing Upper Body Minimal AssistanceBathing Lower Body Moderate AssistanceDressing Upper Body Contact Guard AssistanceDressing Lower Body Moderate Assistance (to stand and arrange)Toileting Contact Guard Assistance??Functional Mobility Assist Level ?Rolling (Pt up in chair and declined to return to bed at this time) ?Supine to Sit ? ?Sit to Supine ?Scooting Supervision ?Sit to Stand Minimal Assistance ?Stand to Sit Minimal Assistance ?Bed to ChairToilet/Commode Minimal Assistance ?Functional Mobility Minimal Assistance Wheeled Walker???Balance: Static Sitting;Dynamic Sitting;Static Standing;Dynamic StandingStatic Sitting Balance: SupervisionDynamic Sitting Balance: SupervisionStatic Standing Balance: Contact Guard AssistanceDynamic Standing Balance: Minimal AssistanceImpression/Recom mendationsPRIMARY DIAGNOSIS:Progressive Cervical Myelopathy over 3-4 weeks requiring surgical tx02/02/18 ACDF R5-3-Umioywwbxvnts-Clonus- Ataxia-Coordination ImpairmentMorbid Obesity BMI 44.8PROBLEM LISTProgressive Cervical Vkwsoyuubk24/21/18 ACDF U1-1-Mezcatbwophdm-Clonus- Ataxia-Coordination ImpairmentObesity, Class Iii, Bmi 40-49.9Sleep ApneaEssential HypertensionHyperlipidemia Osteoarthritis of Both KneesRECOMMENDATIONS: Acute Rehab1- When medically cleared I recommend an Acute Inpatient RehabilitationFacility (IRF).This patient requires and necessitates an IRF level of treatment / careincluding management by a Medical / Rehabilitation physician 5+ days/week, Rehabilitation nursing, multiple skilled therapies, Speech -screen. The patient will be able to participate in and benefit from 3 hrof therapy per day with goals for improved functional and medical statusand a DC to the community. This patient is appropriate and necessitates acomprehensive acute inpatient rehabilitation faciility (IRF). Prognosisfor improvement is positive. The patient is appropriate for IRF based onmedical and physical / functional status, needs, prognosis, ability toparticipate and benefit from the IRF program including discharge goals tot community and family caregiver training as needed.IRF program recommended includes Physiatry / Rehabilitation Physician,Case Management, Discharge Planning , Psychosocial, Psychology services ,24 hr Rehabilitation Nursing, Recreational Therapy Services, MedicalManagement and Supervision, Discharge environmental assessment as needed.This patient is appropriate for Physical and Occupational therapy 1.5hours each per day based on a 15- hour week, 5 days per week. Physicianmanagement 5-7 days per week including Physiatry / RehabilitationPhysician and Speciality Physician care as needed. Physicianmonitoring,manage ment and close supervision of medical issues noted inprimary diagnosis and problem list in this report. Psychological servicesas needed.. Disposition goal from IRF would be return home with support offamily.2- Medical Plan:Cervical spondylosis with myelopathyBMI>44Elevated AM Blood glucose3- DVT prophylaxis per Primary team4- PT/OT5- Speech- swallowing screen as needed6- OOB BID with supervision7- B/B program8- Nutrition program9- Follow Blood Glucose post op and at rehabSIGNATURE: Ramirez Aguilar DO PATIENT NAME: Sonia HemphillueDATE: February 05, 2018 : 11:26 AM PAGER/CONTACT #: [facility] NURSING PROGon 02-05-2018 Protein mass conc HNO ID: [id number] thor: Mellisa (Rn) SHERRELL Bankservice: (none)Author Type: Registered NurseType: Nursing Progress NoteFiled: 02/06/2018 3:55 AMNote Text: Nursing Progress NotePatient Name: Sonia HemphillueMRN: [id number] Location: [place] [address] [address] Daily Note:1899 Assumed care of pt. Pt is AANDOx3, breathing regular on RA. Pt deniesany needs at this time. Call light within reach, bed alarm on, safetymaintained.2117 Assessment as charted. Pt denies chest pain, SOB, n/v, or BUCK. Ptstates n/t to bilateral hands and arms, and pain to the neck and L knee.IS at bedside. Pt demonstrated use, reminded to use every hour whileawake. SCDs on bilaterally, neck dressing c/d/i with steri strips, iceapplied to L knee d/t pain, bipap machine at bedside for pt use. No IVaccess upon assessment, informed by daytime RN that doctors are aware andno IV access is ok. Reviewed pain board with pt. Pt has no complaints atthis time. Call light within reach, bed alarm on, safety maintained.0000 Prior assessment unchanged, VS noted, will continue to monitor.This note was completed by: Mellisa Banks RN [facility] Protein mass conc HNO ID: [id number] thor: Trista (Rn) SHERRELL Davenportervice: (none)Author Type: Registered NurseType: Nursing Progress NoteFiled: 02/05/2018 6:00 PMNote Text:0852 Nursing Progress NotePatient Name: Sonia KarimiMRN: [id number] Location: [place] [address] [address] Daily Note:0852 Patient awake in bed, alert and oriented x 3. Anterior neck dressingdry and intact. Pt states she has some numbness and tingling to BUEs whichhas improved since surgery. Pt states the numbness and tingling to BLEsHas decreased greatly since surgery.No signs of distress. Will monitor. Call light in reach.1516 Patient up in chair. No signs of distress. Anterior neck dressingchanged per patient request. Tape from dressing itching patient's neck.Steri strips intact, applied 2x2's and paper tape. No drainage noted. Willcontinue to monitor.1750 Patient up in chair. Medicated with percocet for pain to left knee.Ice pack to left knee. Exercise ball given to patient to work on her handcoordination and movement.This note was completed by: Trista Davenport RN [facility] PROGRESSon 02-05-2018 Protein mass conc HNO ID: [id number] thor: Francisco Taylorervice: General Internal MedicineAuthor Type: PhysicianType: Progress NotesFiled: 02/05/2018 2:35 PMNote Text:PROGRESS NOTE - INTERNAL MEDICINEPATIENT NAME: Sonia KarimiMRN: [id number] PHYSICIAN: Francisco AllenJECTIVEINTERVAL HISTORY OF PRESENT ILLNESS: Comfortable. Upper extremitystrength slightly improved. No other acute issues.OBJECTIVEPHYSICAL EXAM:BP 147/55 Pulse 65 Temp 36.8 ?C (98.3 ?F) (Oral) Resp 16 Ht167.6 cm (5' 6) Wt 125.9 kg (277 lb 9 oz) SpO2 96% BMI 44.80kg/m?Intake/Output Summary (Last 24 hours) at 02/05/18 1435Last data filed at 02/05/18 1400 Gross per 24 hourIntake 1290 mlOutput 400 mlNet 890 mlGENERAL: Alert, no acute distress, cooperative, obeseSKIN: Skin color, texture, turgor normal. No rashes or lesions.NECK: Anterior surgical dressing noted.LUNGS: Lungs clear to auscultationCARDIAC: Normal S1 and S2; no rubs, murmurs, or gallopsABDOMEN: Abdomen soft, non-tender, BS normal [id number]: No LE edemaNEURO: AANDOx3, reports increased upper extremity strength.PULSES: 2+ radial, 2+ carotidDATA:Diagnostic tests reviewed for today's visit:Most recent labsMost recent imagingCBC, Coags, BMP, Mg, PhosRecent Labs 535WBC 14.75*HB 11.5HCT 37.1PLT 241NA 138K 4.1CHLOR 101CO2 26BUN 12CREAT 0.69GLUC 119*CA 9.1Liver Function, Amylase, AND LipaseCardiac EnzymesASSESSMENT AND PLANCervical myopathy [G72.9]- s/p ACDF C3-4HTN- c/w amlodipine, maxzideHLD: statinThyroid mass- noted on MRI- thyroid US: benign nodulesHypokalemia- replete, monitorconstipation- c/w colaceOSA- CPAPObesityDVT prophylaxis- SCDs?Neurosurgery Has signed off.Acute rehabilitation Discharge pending.Mild leukocytosis noted, to Donavan Dow MD [facility] THERAPY NTon 02-05-2018 THERAPY NT HNO ID: [id number] thor: Hayley (Ot) EthanService: Occupational TherapyAuthor Type: Occupational TherapistType: Therapy (PT/OT/Speech/Resp)Filed: 02/05/2018 12:56 PMNote Text:Occupational Therapy EvaluationSERVICE DATE: 02/05/2018SERVICE TIME: 1220 to 1245ROOM: [id number] Discharge Disposition: Acute RehabRecommended Discharge Disposition Comments: to maximize level ofindependence with ADL's, functional transfers and functional ambulationJustification For Post Acute Needs: Anticipate patient will tolerate 3hours of daily therapy at the time of admission to post-acutesetting;Anticipa gilbert community discharge;Good sitting tolerance;Living thecommunity premorbidly;MotivatedOT Recommendations to Nursing: ADL?s in chair;OOB for meals;Transfer toChair;With assist of 2 peopleEquipment: Wheeled WalkerOT 6 Clicks Score: 17Precautions/Activity Restrictions: Fall Risk;SpinePrecaution/Activ ity Restriction Comments: soft collar when in a carASSESSMENT: REEVAL SECONDARY TO CERVICAL SURGERYPatient presents with cervical surgery.. Requires skilled OT for decreased BUE ROM, BUE strength, balance,activity tolerance, dressing, bathing, grooming, functional transfers,,functional balance and decreased safety awareness.Patient Disposition at Start of Session: OOB in Chair;Call Chan in ReachPatient Disposition at End of Session: OOB in Chair;Call Chan in ReachTolerated Full SessionOccupational Therapy Problem List: Education Deficit;Pain;SafetyDeficit s;Impaired Self Care;Decreased Activity Tolerance;Decreased RangeOf Motion;Decreased Strength;Functional Mobility Impairment;BalanceImpaired ;Sensory DeficitPatient /Caregiver Goals: Go To RehabGoals for Plan of Care:Upper Body Dressing with: Set UpLower Body Dressing with: SupervisionChair Transfer with: SupervisionToilet Transfer with: SupervisionTolerate (minutes of functional activity): 45Functional Activity with: SupervisionRehab Potential: GoodPLAN:Treatment Frequency (times per week): 5 (as able) Current admissionTreatment Interventions: Education;Self Care / Home Management;FunctionalMobil ity Training;Balance TrainingPlan of Care developed with: PatientTREATMENT INTERVENTIONS:Therapy Diagnosis: Reduced mobility-other;Decreased activities of dailyliving (ADL)Interventions Provided: Re-evaluation;Self Chcf Management (50686)Self Chcf Management (04786) Treatment Minutes: 131 unitSkilled Intervention(s): Instructed in energy conservation techniques toutilize during ADL's, functional transfers and functional ambulation.Provided instruction, cuing and facilitation for upper body dressing.Educated pt to dress LUE first secondary to decreased ROM and strength.Provided instruction, cuing and facilitation for lower body dressing. Pteducated on adhering to proper body mechanics while completing LE ADL'sand the availability of adaptive equipment to assist in completion of LEADL's. Educated pt to dress LLE first.Educated pt on the pain scale, the importance of managing pain and nonpharmacological interventions.Educated and demonstrated to pt anti-embolic exercises and the importanceof completing these exercises on a regular basis.Educated pt on pursed lipped breathing technique throughout functionalactivity to assist with managing pain.Educated pt on role of therapy in the acute care environment, theimportance of being OOB for all meals as tolerated with staff assist andthe POC. Educated and demonstrated desensitization techniques for BUE's.Total Timed Code Treatment Minutes: 13Total Treatment Time (minutes): 25FUNCTIONAL G CODE:OT 6 Clicks Score: 17 (02/05/18 1220)Self Care Current Status (G8987): CK (02/05/18 1220)Self Care Goal Status (G8988): CJ (02/05/18 1220)Based on clinical assessment and the score on the 6 Clicks FunctionalAssessment Tool, the G code and corresponding severity modifiers aredocumented above.SUBJECTIVE:Current Hospital Course: Chart reviewed; DATE OF SURGERY/PROCEDURE:02/03/20 18SURGERY/PROCEDURE: Anterior cervical diskectomy at C3-4 level, anteriorcervical partial corpectomy at C3-4 level, anterior cervical interbodyarthrodesis utilizing allogenous bone graft at C3-4, anterior cervicalC3-4 instrumentation utilizing [place] spine instrumentation, applicationof Antonio-Wells tongs, utilization of intraoperative microscope,utilization of intraoperative somatosensory motor-evoked potentialmonitoring.Review ed history - fall 3 weeks ago and hit face, then seen here 01/16.Xray with flexion extension views did show translation with flex/ext. CTscan 01/29 in ER showed no fracture, + stenosis2) Concern for significant and relatively rapid neuro decline. Patientneeds MRI and neurosurgery opinion within next 24-48 hours - lengthydiscussion with patient and niece. Recommended [facility] or [facility].3) Spoke with Dr Kim Neurosurgery, recommend MRI cervical spinewithout. Discussed with Dr Dow for direct admission - trying to arrange- if unable patient will go to ER.4) Followup PRNReason for Occupational Therapy Consult: functional assessmentRelevant Past Medical History: cervical myopathy; frequent fallsPatient Report: agreeable to work with therapy this date.Home EnvironmentPatient Lives With: Family (niece, who works)Assistance Available: Part timeEntry To Home: Stairs;With RailNumber Of Stairs Into Home: 3Number Of Stairs To Bed/Bath: 0Tub/Shower Type: tub showerLaundry: first floor-pt completedEquipment Owned: Cane;Grab Bars-Shower;RollatorPrior Functional Level: Within Functional Limits;Required AssistanceAssistance Required With: Cleaning;Laundry;MealsPrio r Functional Level Comments: 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; 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; usually IND with ADL/IADL; drivesOBJECTIVE:Cognition/ Communication DeficitsOrientation Deficits: (WFL)Responsiveness: AlertFollows Commands: 3-step CommandsExecutive Function Deficits: Safety AwarenessSafety Awareness Deficit: Minimal impairmentCURRENT FUNCTIONAL STATUS:Current Activities of Daily Living Assist LevelFeeding Set UpGrooming Contact Guard AssistanceBathing Upper Body Minimal AssistanceBathing Lower Body Moderate AssistanceDressing Upper Body Contact Guard AssistanceDressing Lower Body Moderate Assistance (to stand and arrange)Toileting Contact Guard AssistanceFunctional Mobility Assist LevelRolling (Pt up in chair and declined to return to bed at this time)Supine to SitSit to SupineScooting SupervisionSit to Stand Minimal AssistanceStand to Sit Minimal AssistanceBed to ChairToilet/Commode Minimal AssistanceFunctional Mobility Minimal Assistance Wheeled WalkerBalance: Static Sitting;Dynamic Sitting;Static Standing;Dynamic StandingStatic Sitting Balance: SupervisionDynamic Sitting Balance: SupervisionStatic Standing Balance: Contact Guard AssistanceDynamic Standing Balance: Minimal AssistancePlease see discipline specific clinical documentation flowsheet forcomplete details for this therapy evaluation/treatment.TINO NARAYAN: LILY Harper/Adam PATIENT NAME: Sonia HemphillueDATE: February 05, 2018 : 12:53 PM [facility] THERAPY NT HNO ID: [id number] thor: Nita (Pediatrics Hospitalist) SundermanService: Physical TherapyAuthor Type: Physical Therapy AssistantType: Therapy (PT/OT/Speech/Resp)Filed: 02/05/2018 11:04 AMNote Text: -------Attestation signed by Niyah RubioPtRonda Hairston at 02/05/2018 1:30 PMI reviewed and agree with the documentation corresponding to this therapyvisit.SIGNATURE: Niyah Hairston, PTDATE: February 05, 2018TIME: 1:30 PM ----Physical Therapy TreatmentSERVICE DATE: 02/05/2018SERVICE TIME: 0950 to 0ROOM: [id number] Discharge Disposition: Acute RehabRecommended Discharge Disposition Comments: pt with limited functionalmobility - BUE/BLE weakness making mobility difficult; will benefit fromAR prior to d/c home.Justification For Post Acute Needs: Anticipate that patient will requiredaily (5x/wk) skilled therapy in a post-acute facility setting at the timeof acute hospital discharge;Anticipate patient will tolerate 3 hours ofdaily therapy at the time of admission to post-acute settingRecommended Discharge Equipment: No equipment needs anticipatedPT Recommendations to Nursing: Ambulate with device;Transfer to/fromchair;OOB for Meals;With assist of 2 peopleDevice: Wheeled WalkerPT 6 Clicks Score: 17Precautions/Activity Restrictions: Fall Risk;Spine (Cervical )ASSESSMENT :Patient Disposition at End of Session: OOB in Chair;Call Chan in ReachTolerance Limited By PainPhysical Therapy Problem List: Balance Impaired;Functional MobilityImpairment;Decreas ed Strength;Decreased Range Of Motion;Decreased ActivityTolerance;Impaired Self Care;Safety Deficits;PainPatient /Caregiver Goals: Go HomeGoals for Plan of Care:Able to perform HEP with: Verbal Cues OnlyTransfer supine to/from sit with: Modified IndependentTransfer sit to/from stand with: Modified IndependentAmbulate with: Modified IndependentDistance: >100ft x 2Device: Wheeled WalkerAmbulate up and down steps with: Contact Guard AssistanceNumber of steps: 3Device: RailTransfer: All functional transfers with mod IProgress Toward Goals: Progressing as expectedRehab Potential: GoodPLAN:Treatment Frequency (times per week): 7Treatment Duration (number): (as able LOS) Current admissionTreatment Interventions: Education;Functional Mobility Training;Self Care/ Home ManagementPlan of Care developed with: PatientTREATMENT INTERVENTIONS:Therapy Diagnosis: Reduced mobility-otherIntervention s Provided: Therapeutic Activity (56848);Gait Training (00415)Therapeutic Activity (64808) Treatment Minutes: 252 unitsSkilled Intervention(s): Instructed patient in log roll techniqueInstructed patient in supine to and from sit pushing with upperextremities to sit upInstruction in sit to and from stand technique with proper hand placementand body positioning at edge of bed/chairGait Training (31624) Treatment Minutes: 151 unitSkilled Intervention(s): Instruction in sit to stand technique with properhand placement and body positioning at edge of bed/chair and Instructionin stand to sit technique with LE's touching chair/bed and reaching backfor surfacepatient is agreeable to therapy reviewed precautionsBed mob cues for log rollingTransfers sit to stand MIN x1 cue to push from the chairamb with RW very flexed posture and narrow BOSRemained in chair post session assisted pt to the bathroom she was independent with her self careTotal Timed Code Treatment Minutes: 40Total Treatment Time (minutes): 40SUBJECTIVE:Current Hospital Course: Chart reviewed and no significant medical updatesrelevant to therapy were notedReason for Physical Therapy Consult : Sx 02/02/18 Ant DisectomydecompressionRele vant Past Medical History: cervical myopathy; frequent fallsPatient Report: Pt is agreeable to therapy. 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; usually IND with ADL/IADL; drivesOBJECTIVE:CURRENT FUNCTIONAL STATUS:Current Functional Mobility Assist Level Additional InformationRolling Contact Guard AssistanceSupine to Sit Minimal AssistanceSit to Supine (pt remained in chair post session)Scooting SupervisionSit to Stand Minimal AssistanceStand to Sit Minimal AssistanceBed to Chair Minimal Assistance Bed To Chair Transfer Type: Stand PivotBed To Chair Transfer Equipment: Wheeled WalkerToilet/Commode Minimal AssistanceGait Minimal Assistance Gait Device: Wheeled Walker Gait Distance (feet): 20'n7AxuccxKhvg StepCar TransferGeneral Gait Deviations: Veronica decreased Pt tolerated well remained in the chair post session, nursing is aware,call light in reach .Reviewed precautionsBalance: Static Sitting;Dynamic Sitting;Static Standing;Dynamic StandingStatic Sitting Balance: IndependentDynamic Sitting Balance: SupervisionStatic Standing Balance: Contact Guard AssistanceDynamic Standing Balance: Minimal AssistanceActivity Tolerance: Standing ActivityStanding Activity: stood at walker for balance, wt shiftingStanding Activity Tolerance (in minutes): 0.75JH-HLM: 6: Walk 10 steps or morePlease see discipline specific clinical documentation flowsheet forcomplete details for this therapy evaluation/treatment.SIGNA TURE: Nita García, PT Assist PATIENT NAME: Sonia HemphillueDATE: February 05, 2018 : 10:58 AM [facility] NURSING PROGon 02-04-2018 Protein mass conc HNO ID: [id number] thor: Sherri Johnston) SHERRELL Huntleyervice: (none)Author Type: Registered NurseType: Nursing Progress NoteFiled: 02/05/2018 1:19 AMNote Text: Nursing Progress NotePatient Name: Sonia KarimiMRN: [id number] Location: [place] [address] [address] Daily Note:1900 Assumed care of pt. Pt awake in bed with no complaints this time.AANDOX3. Breathing regular. SCDs on bilaterally. Call light within reach.Bed alarm is on. Safety maintained.2000 Assessment is charted. Pt denies sob, chest pain, nausea/vomiting,headache. Anterior neck dressing clean, dry, and intact. N/T in BUE. C/lazara pain, see MAR. Is/cdb encouraged. SCDs on bilaterally. Call lightwithin reach. Bed alarm on. Safety maintained.0000 Piror assessment unchangedThis note was completed by: Sherri Huntley RN [facility] Protein mass conc HNO ID: [id number] thor: Nicole RubioRn) SHERRELL Joelervice: NursingAuthor Type: Registered NurseType: Nursing Progress NoteFiled: 02/04/2018 1:14 PMNote Text: Nursing Progress NotePatient Name: Sonia KarimiN: [id number] Location: [place] [address]/[id number] Daily Note:Assessment completed as charted, see documentation. Pt AOx3. Pt c/o neckpain, valium given, see eMAR. Pt denies any n/t. Neuros WNL. Pt deniesany further needs at this time. Call chan within reach. Will continue tomonitor.This note was completed by: Nicole Joel RN [facility] Protein mass conc HNO ID: [id number] thor: Raghav Grant) SHERRELL Calderonervice: (none)Author Type: Registered NurseType: Nursing Progress NoteFiled: 02/04/2018 2:06 AMNote Text: Nursing Progress NotePatient Name: Sonia KarimiMRN: [id number] Location: [place] [address]/[id number] Daily Note:0000 assumed pt. Care, pt. Resting, call light in reach, safetymaintained.This note was completed by: RAGHAV CALDERON RN [facility] PROGRESSon 02-04-2018 Protein mass conc HNO ID: [id number] thor: Francisco Taylorervice: General Internal MedicineAuthor Type: PhysicianType: Progress NotesFiled: 02/04/2018 4:59 PMNote Text:PROGRESS NOTE - INTERNAL MEDICINEPATIENT NAME: Sonia KarimiMRN: [id number] PHYSICIAN: Francisco TaylorUBJECTIVEINTERVAL HISTORY OF PRESENT ILLNESS: Sleeping comfortably today.Yesterday, had some Increase in neck pain overnight.OBJECTIVEPHYSICA L EXAM:BP 153/64 Pulse 99 Temp 37.3 ?C (99.2 ?F) (Oral) Resp 16 Ht167.6 cm (5' 6) Wt 125.9 kg (277 lb 9 oz) SpO2 96% BMI 44.80kg/m?Intake/Output Summary (Last 24 hours) at 02/04/18 1655Last data filed at 02/04/18 1600 Gross per 24 hourIntake 1240 mlOutput 1050 mlNet 190 mlGENERAL: Alert, no acute distress, cooperative, obeseSKIN: Skin color, texture, turgor normal. No rashes or lesions.NECK: Anterior surgical dressing noted.LUNGS: Lungs clear to auscultationCARDIAC: Normal S1 and S2; no rubs, murmurs, or gallopsABDOMEN: Abdomen soft, non-tender, BS normal [id number]: No LE edemaNEURO: AANDOx3, reports increased upper extremity strength already.PULSES: 2+ radial, 2+ carotidDATA:Diagnostic tests reviewed for today's visit:Most recent labsMost recent imagingCBC, Coags, BMP, Mg, PhosRecent Labs 02/03/1804WBC 14.75* 10.52HB 11.5 11.3*HCT 37.1 35.7*PLT 241 235INR -- 0.9NA 138 139K 4.1 3.9CHLOR 101 102CO2 26 25BUN 12 18CREAT 0.69 0.75GLUC 119* 101*CA 9.1 9.6Liver Function, Amylase, AND LipaseCardiac EnzymesASSESSMENT AND PLANCervical myopathy [G72.9]- s/p ACDF C3-4HTN- c/w amlodipine, maxzideHLD: statinThyroid mass- noted on MRI- thyroid US: benign nodulesHypokalemia- replete, monitorconstipation- c/w colaceOSA- CPAPObesityDVT prophylaxis- SCDs?Neurosurgery Has signed off.Acute rehabilitation Discharge pending.Mild leukocytosis noted, to Donavan Dow MD [facility] Protein mass conc HNO ID: [id number] thor: Farshad RubioPa) YukolService: NeurosurgeryAuthor Type: Physician AssistantType: Progress NotesFiled: 02/04/2018 8:44 AMNote Text:S/P ACDFNeck pain overnightMotor: 5/5 BUE/BLEsSensation: intact to LT in BUE/BLEsDressing: C/D/IA/P: POD#2 C3/4 ACDFRehab recommended.Neurosurgery to sign off. Follow up in 2 weeks, already scheduled. [facility] THERAPY NTon 02-04-2018 THERAPY NT HNO ID: [id number] thor: Alayna (Pt) MacoService: Physical TherapyAuthor Type: Physical TherapistType: Therapy (PT/OT/Speech/Resp)Filed: 02/04/2018 2:08 PMNote Text:Physical Therapy TreatmentSERVICE DATE: 02/04/2018SERVICE TIME: 1320 to 1350ROOM: [id number] Discharge Disposition: Acute RehabRecommended Discharge Disposition Comments: pt with limited functionalmobility - BUE/BLE weakness making mobility difficult; will benefit fromAR prior to d/c home.Justification For Post Acute Needs: Anticipate that patient will requiredaily (5x/wk) skilled therapy in a post-acute facility setting at the timeof acute hospital discharge;Anticipate patient will tolerate 3 hours ofdaily therapy at the time of admission to post-acute settingRecommended Discharge Equipment: No equipment needs anticipatedPT Recommendations to Nursing: Ambulate with device;Transfer to/fromchair;OOB for Meals;With assist of 2 peopleDevice: Wheeled WalkerPT 6 Clicks Score: 17Precautions/Activity Restrictions: Fall Risk;Spine (Cervical )ASSESSMENT : Pt with functional decline and weakness; will benefit from continued PTin inpt setting at d/c for strengthening, gait training and functionalmobility training to maximize functional independence.Patient Disposition at Start of Session: Supine in BedPatient Disposition at End of Session: OOB in Chair;Call Chan in ReachTolerance Limited By PainPhysical Therapy Problem List: Balance Impaired;Functional MobilityImpairment;Decreas ed Strength;Decreased Range Of Motion;Decreased ActivityTolerance;Impaired Self Care;Safety Deficits;PainPatient /Caregiver Goals: Go HomeGoals for Plan of Care:Able to perform HEP with: Verbal Cues OnlyTransfer supine to/from sit with: Modified IndependentTransfer sit to/from stand with: Modified IndependentAmbulate with: Modified IndependentDistance: >100ft x 2Device: Wheeled WalkerAmbulate up and down steps with: Contact Guard AssistanceNumber of steps: 3Device: RailTransfer: All functional transfers with mod IProgress Toward Goals: Progressing as expectedRehab Potential: GoodPLAN:Treatment Frequency (times per week): 7Treatment Duration (number): (as able LOS) Current admissionTreatment Interventions: Education;Functional Mobility Training;Self Care/ Home ManagementPlan of Care developed with: PatientTREATMENT INTERVENTIONS:Therapy Diagnosis: Reduced mobility-otherIntervention s Provided: Therapeutic Activity (83689);Gait Training (39710)Therapeutic Activity (17047) Treatment Minutes: 151 unitSkilled Intervention(s): Pt instructed in role of PT and importance ofmobility in hospital; pt instructed in safe techniques for bed mob - logroll technique, transfer and gait training for improved functionalmobility - proper use of walker and hand placement with all mobility; d/cplanning discussion - pt wants to go to rehab; POC discussion; homesafety, BLE/BUE therapeutic ex instruction, fall prevention strategies,energy conservation; deep breathing techniques. Pt instructed in spinalprecs.Gait Training (62432) Treatment Minutes: 151 unitSkilled Intervention(s): Instruction in sit to stand technique withproper hand placement and body positioning at edge of bed/chair;Instruction in stand to sit technique with LE's touching chair/bed andreaching back for surface; Instruction in sequencing and gait pattern;Instruction in correction of gait deviations - postural correction, steplength; Instruction in use of rolling walker for balance and safety. Ptneeds cues for safety. Difficulty holding onto walker d/t hand weakness -tends to lean on walker. Pt is fearful of falling. Pt has severe B genuvarus.Total Timed Code Treatment Minutes: 30Total Treatment Time (minutes): 30FUNCTIONAL G CODE:PT 6 Clicks Score: 17 (02/04/18 1320)Mobility: Walking and Moving Around Current Status (G8978): CK ()Mobility: Walking and Moving Around Goal Status (G8979): CJ ()Based on clinical assessment and the score on the 6 Clicks FunctionalAssessment Tool, the G code and corresponding severity modifiers aredocumented above.SUBJECTIVE:Current Hospital Course: Chart reviewed and no significant medical updatesrelevant to therapy were notedReason for Physical Therapy Consult : Sx 02/02/18 Ant DisectomydecompressionRele vant Past Medical History: cervical myopathy; frequent fallsPatient Report: Pt states I'm in so much pain. I can't get comfortable. Pt laying in bed - head/neck positioned in extension. 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; usually IND with ADL/IADL; drivesOBJECTIVE:CURRENT FUNCTIONAL STATUS:Current Functional Mobility Assist Level Additional InformationRolling Contact Guard AssistanceSupine to Sit Minimal Assistance (HOB elevated)Sit to Supine (pt up in chair post session )Scooting SupervisionSit to Stand Minimal AssistanceStand to Sit Minimal AssistanceBed to Chair Minimal Assistance Bed To Chair Transfer Type: Stand PivotBed To Chair Transfer Equipment: Wheeled WalkerToilet/Commode (-)Gait Minimal Assistance Gait Device: Wheeled Walker Gait Distance (feet): 12ft x 1; 20ft x 1StairsCurb StepCar TransferGeneral Gait Deviations: Veronica decreased;Step length decreased (leansBUE on walker; difficulty gripping walker; genu varus )Balance: Static Sitting;Dynamic Sitting;Static Standing;Dynamic StandingStatic Sitting Balance: IndependentDynamic Sitting Balance: SupervisionStatic Standing Balance: Contact Guard AssistanceDynamic Standing Balance: Minimal AssistanceActivity Tolerance: Standing ActivityStanding Activity: stood at walker for balance, wt shiftingStanding Activity Tolerance (in minutes): 0.75JH-HLM: 6: Walk 10 steps or morePlease see discipline specific clinical documentation flowsheet forcomplete details for this therapy evaluation/treatment.TINO NARAYAN: Alayna Knutson, PT PATIENT NAME: Sonia HemphillueDATE: February 04, 2018 : 2:03 PM Normal [facility] Basic Metabolic Panlon 02-03 Anion gap 3 molar conc 11 mmol/L Normal 9-18 [facility] Calcium mass conc 9.1 mg/dL Normal 8.6-10.0 [facility] Chloride molar conc 101 mmol/L Normal 97-105 [facility] CO2 molar conc 26 mmol/L Normal 22-33 [facility] Creatinine mass conc 0.69 mg/dL Normal 0.58-0.96 [facility] Glucose mass conc 119 mg/dL High 74-99 [facility] Potassium molar conc 4.1 mmol/L Normal 3.7-5.1 [facility] Sodium molar conc 138 mmol/L Normal 136-144 [facility] Urea nitrogen mass conc 12 mg/dL Normal 7-21 [facility] CASE MANAGEMon 02-03-2018 CASE MANAGEM HNO ID: [id number] thor: Lola Pool (Sw): Case ManagementAuthor Type: Social WorkerType: Care Mgt Progress NoteFiled: 02/03/2018 1:58 PMNote Text:CARE MANAGEMENT PROGRESS NOTESERVICE DATE: 02/03/2018SERVICE TIME: 1:54 PM LOS: 4 daysNeeds Prior to Discharge: Accepting FacilityNotified by the RN BEVERLY that patient requesting additional contact. Met withthe patient and a male to further discuss discharge planning. Reportedly,the patient called a friend and was informed that [facility]. Ptcommunicates that her first [facility] [place] [facility] ECIN sent to both facilities.SIGNATURE: JOSE Peacock PATIENT NAME: Sonia Lozoya DerueDATE: February 03, 2018 : 1:54 PM PAGER/CONTACT #: [phone] [facility] CASE MANAGEM HNO ID: [id number] thor: Ada (Rn) SHERRELL Aguayoervice: Care ManagementAuthor Type: Registered NurseType: Care Mgt Progress NoteFiled: 02/03/2018 11:15 AMNote Text:CARE MANAGEMENT PROGRESS NOTESERVICE DATE: 02/03/2018SERVICE TIME: 11:07 AM LOS: 4 daysFREEDOM OF CHOICE GIVEN:Yes PatientFinancial Disclosure ProvidedThe patient and/or family has been given the Provider List: YesProvider List: Rehab FacilityPreference: [facility] and [facility] Prior to Discharge: Accepting FacilityTherapy is recommending Acute Rehab. Patient states she does not feelsafe going home and wants to go to Acute Rehab. Patient given providerlist. Patient chose [facility] and is aware it is out of network forher. Patient is checking with her insurance to see how much it will be outof pocket or does she only have to pay her 7500 deductible and then herinsurance will pay the rest. Referrals to [facility] and to [facility] RN is placing a PMR consult. Will continue to follow.SIGNATURE: Ada Aguayo RN PATIENT NAME: Sonia Lozoya DerueDATE: February 03, 2018 : 11:07 AM PAGER/CONTACT #: [phone] [facility] CBC and Differentialon 02-03 Abs Baso <0.03 Normal <0.11 [facility] Abs [place] 1.21 k/uL High <0.87 [facility] Abs Neut 12.53 k/uL High 1.45-7.50 [facility] Basophils/100 WBC Auto (Bld) 0.1 % Normal [facility] DTYPE Auto Diff Normal [facility] Eosinophils Auto #/vol (Bld) 10*3/uL Normal <0.46 [facility] Eosinophils/100 WBC Auto (Bld) 0.1 % Normal [facility] Erythrocyte distribution width Auto Ratio (RBC) 13.6 % Normal 11.5-15.0 [facility] Hematocrit Auto Volume Fraction (Bld) 37.1 % Normal 36.0-46.0 [facility] Hemoglobin mass conc (Bld) 11.5 g/dL Normal 11.5-15.5 [facility] Lymphocytes Auto #/vol (Bld) 0.97 10*3/uL Low 1.00-4.00 [facility] Lymphocytes/100 WBC Auto (Bld) 6.6 % Normal [facility] MCH Auto Entitic mass (RBC) 26.3 pG Normal 26.0-34.0 [facility] MCHC Auto mass conc (RBC) 31.0 g/dL Normal 30.5-36.0 [facility] MCV Auto Entitic volume (RBC) 84.7 fL Normal 80.0-100.0 [facility] Monocytes/100 WBC Auto (Bld) 8.2 % Normal [facility] Neutrophils/100 WBC Auto (Bld) 85.0 % Normal [facility] Platelet mean volume Auto Entitic volume (Bld) 9.1 fL Normal 9.0-12.7 [facility] Platelets Auto #/vol (Bld) 241 10*3/uL Normal 150-400 [facility] RBC Auto #/vol (Bld) 4.38 10*6/uL Normal 3.90-5.20 [facility] WBC Auto #/vol (Bld) 14.75 10*3/uL High 3.70-11.00 [facility] NURSING PROGon 02-03-2018 Protein mass conc HNO ID: [id number] thor: Cely (Rn) SHERRELL Deeervice: (none)Author Type: Registered NurseType: Nursing Progress NoteFiled: 02/04/2018 12:25 AMNote Text: Nursing Progress NotePatient Name: Sonia KarimiMRN: [id number] Location: [facility]/US-1K-436-2 Daily Note:1900 Assumed care of pt, pt resting in bed with family at bedside.Breathing regular and unlabored. Pt denies any needs at this time, callbell within reach, bed alarm on.1950 Assessment and vitals as charted. Pt denies any chest pain, SOB,headache, nausea, numbness or tingling. SCDs on bilaterally. Dressing onanterior neck is clean, dry, and intact. All extremities are warm, mobile,cap refill < 3 seconds, pulses present, sensation intact, strength strongbilaterally. Pt denies any needs at this time, call chan within reach. Bedalarm on. Will continue to monitor.0000 Pt resting in bed with eyes closed, breathing regular and unlabored,call chan within reach, bed alarm on. Will continue to monitor.This note was completed by: Cely Dee RN [facility] Protein mass conc HNO ID: [id number] thor: Nicole (Rn) SHERRELL Joelervice: NursingAuthor Type: Registered NurseType: Nursing Progress NoteFiled: 02/03/2018 11:44 AMNote Text:Nursing Progress NotePatient Name: Sonia KarimiMRN: [id number] [id number] Daily Note:Assessment completed as charted, see documentation. Pt AOx3. Pt c/o 6/10pain at surgical site; lidoderm patch applied and pt medicated withpercocet, see eMAR. Pt denies any new N/T since surgery. Neuro checksWNL. Pt denies any further needs at this time. Call chan within reach.Will continue to monitor.This note was completed by: Nicole Joel RN [facility] PROGRESSon 02-03-2018 Protein mass conc HNO ID: [id number] thor: Francisco Taylorervice: General Internal MedicineAuthor Type: PhysicianType: Progress NotesFiled: 02/03/2018 2:39 PMNote Text:PROGRESS NOTE - INTERNAL MEDICINEPATIENT NAME: Sonia KarimiMRN: [id number] PHYSICIAN: Francisco TaylorUBJECTIVEINTERVAL HISTORY OF PRESENT ILLNESS: Status post surgery yesterday.Sitting up in chair, having breakfast. Neck drain just removed thismorning.OBJECTIVEPHYSI SULY EXAM:BP 150/56 Pulse 84 Temp 36.7 ?C (98 ?F) (Oral) Resp 18 Ht167.6 cm (5' 6) Wt 125.9 kg (277 lb 9 oz) SpO2 97% BMI 44.80kg/m?Intake/Output Summary (Last 24 hours) at 02/03/18 1437Last data filed at 02/03/18 0900 Gross per 24 hourIntake 2345 mlOutput 1780 mlNet 565 mlGENERAL: Alert, no acute distress, cooperative, obeseSKIN: Skin color, texture, turgor normal. No rashes or lesions.NECK: Anterior surgical dressing noted.LUNGS: Lungs clear to auscultation, Good diaphragmatic excursionCARDIAC: Normal S1 and S2; no rubs, murmurs, or gallopsABDOMEN: Abdomen soft, non-tender, BS normal [id number]: No LE edemaNEURO: AANDOx3, reports increased upper extremity strength already.PULSES: 2+ radial, 2+ carotidDATA:Diagnostic tests reviewed for today's visit:Most recent labsMost recent imagingCBC, Coags, BMP, Mg, PhosRecent Labs 02/03/1804WBC 14.75* 10.52 10.21 --HB 11.5 11.3* 11.6 --HCT 37.1 35.7* 36.7 --PLT 241 235 223 --INR -- 0.9 -- --APTT -- -- -- 25.4NA 138 139 138 --K 4.1 3.9 4.2 --CHLOR 101 102 99 --CO2 26 25 27 --BUN 12 18 20 --CREAT 0.69 0.75 0.81 --GLUC 119* 101* 113* --CA 9.1 9.6 9.9 --Liver Function, Amylase, AND LipaseCardiac EnzymesASSESSMENT AND PLANCervical myopathy [G72.9]- s/p ACDF C3-4HTN- c/w amlodipine, maxzideHLD: statinThyroid mass- noted on MRI- thyroid US: benign nodulesHypokalemia- replete, monitorconstipation- c/w colaceOSA- CPAPObesityDVT prophylaxis- SCDs?Neurosurgery follow-upMild leukocytosis noted, to followPhysical therapy.Acute rehabilitation discharge to plan.Urine culture negative.Bowel regimen optimizedSyed MD Paloma [facility] Protein mass conc HNO ID: [id number] thor: Carlos Godfrey) MikeenService: NeurosurgeryAuthor Type: Physician AssistantType: Progress NotesFiled: 02/03/2018 12:03 PMNote Text:Spoke with Case mgmt today.Patient indicated Dr. Hayes concerned about gait instability or falling.Patient wants acute rehab especially [place].PMR consult placed.Needs PT/OT to see today or re-evaluate.Discharge to acute rehab when arrangements are complete.Carlos Veliz PA-C [facility] Protein mass conc HNO ID: [id number] Author: Farshad Arce (Pa) Service: Neurosurgery Author Type: Physician Industrial Relations Specialist Type: Progress Notes Filed: 02/03/2018 10:48 AM Note Text: Drain removed. Incision; C/D/I new dressing placed. [facility] Protein mass conc HNO ID: [id number] thor: Latrice Jorgensen: NeurosurgeryAuthor Type: PhysicianType: Progress NotesFiled: 02/03/2018 9:15 AMNote Text:AVSSNeurologically much improved with full strength bilateral handsNo trouble swallowing.Medical supportPT/OTFU with me in 2 weeks [facility] ANES Clyde 12--2018 ANES POST HNO ID: [id number] thor: Alexandrea GoncalvesService: AnesthesiologyAuthor Type: AnesthesiologistType: Anesthesia PostOpFiled: 02/02/2018 4:37 PMNote Text:POST ANESTHESIA EVALUATION NOTESERVICE DATE: 02/02/2018SERVICE TIME: 4:37 PMDOB: 1955Vitals: 02/03/1812Temp: (!) 7 ?C (44.6 ?F) 36.8 ?C (98.2 ?F) 37 ?C (98.6 ?F) 37.3 ?C (99.1?F) 02/03/1816BP: 171/74 178/76 176/74 176/79 02/03/1816Pulse: 88 90 89 90 02/03/1816Resp: 16 16 12 16 02/03/1816SpO2: 97% 96% 96% 95%Validated Vital Signs: YesPOST ANES STATUS: No apparent anesthetic complications. The patient isappropriately hydrated with stable respiratory and cardiovascular status.Patient has safe and adequate airway control. The patient has appropriatepain relief and no significant post operative nausea or vomiting. Thepatient has achieved baseline mental status.Intra-Operative Events: No Significant Anesthesia EventsFurther assessment by Anesthesia Service: NoneOther Remarks:SIGNATURE: Alexandrea Goncalves MD PATIENT NAME: Sonia HemphillueDATE: February 02, 2018 : 4:37 PM PAGER/CONTACT #: [phone] [facility] ANES PREOPon 02-02-2018 ANES PREOP HNO ID: [id number] thor: Yaritza Acostaervice: AnesthesiologyAuthor Type: AnesthesiologistType: Anesthesia PreOpFiled: 02/02/2018 11:52 AMNote Text:I attest the above information is accurate including:Chronic Beta Gerardo medication administered within 24 hours: N/AAdequate NPO status: YesAnesthetic risks, benefits, alternatives, personnel and consent discussed.YesPatient agrees to proceed. YesPain Management Plan: Parenteral or OralASA Class: 3Anesthetic Plan: General; Standard ASA MonitorsAdditional comments:Yaritza Hale, MDDecefranki 2017 Normal [facility] Basic Metabolic Panlon 02-02 Anion gap 3 molar conc 12 mmol/L Normal 9-18 [facility] Calcium mass conc 9.6 mg/dL Normal 8.6-10.0 [facility] Chloride molar conc 102 mmol/L Normal 97-105 [facility] CO2 molar conc 25 mmol/L Normal 22-33 [facility] Creatinine mass conc 0.75 mg/dL Normal 0.58-0.96 [facility] Glucose mass conc 101 mg/dL High 74-99 [facility] Potassium molar conc 3.9 mmol/L Normal 3.7-5.1 [facility] Sodium molar conc 139 mmol/L Normal 136-144 [facility] Urea nitrogen mass conc 18 mg/dL Normal 7-21 [facility] CBC and Differentialon 02-02 Abs Baso 0.04 k/uL Normal <0.11 [facility] Abs [place] 0.76 k/uL Normal <0.87 [facility] Abs Neut 6.81 k/uL Normal 1.45-7.50 [facility] Basophils/100 WBC Auto (Bld) 0.4 % Normal [facility] DTYPE Auto Diff Normal [facility] Eosinophils Auto #/vol (Bld) 0.28 10*3/uL Normal <0.46 [facility] Eosinophils/100 WBC Auto (Bld) 2.7 % Normal [facility] Erythrocyte distribution width Auto Ratio (RBC) 13.8 % Normal 11.5-15.0 [facility] Hematocrit Auto Volume Fraction (Bld) 35.7 % Low 36.0-46.0 [facility] Hemoglobin mass conc (Bld) 11.3 g/dL Low 11.5-15.5 [facility] Lymphocytes Auto #/vol (Bld) 2.63 10*3/uL Normal 1.00-4.00 [facility] Lymphocytes/100 WBC Auto (Bld) 25.0 % Normal [facility] MCH Auto Entitic mass (RBC) 26.4 pG Normal 26.0-34.0 [facility] MCHC Auto mass conc (RBC) 31.7 g/dL Normal 30.5-36.0 [facility] MCV Auto Entitic volume (RBC) 83.4 fL Normal 80.0-100.0 [facility] Monocytes/100 WBC Auto (Bld) 7.2 % Normal [facility] Neutrophils/100 WBC Auto (Bld) 64.7 % Normal [facility] Platelet mean volume Auto Entitic volume (Bld) 9.2 fL Normal 9.0-12.7 [facility] Platelets Auto #/vol (Bld) 235 10*3/uL Normal 150-400 [facility] RBC Auto #/vol (Bld) 4.28 10*6/uL Normal 3.90-5.20 [facility] WBC Auto #/vol (Bld) 10.52 10*3/uL Normal 3.70-11.00 [facility] HISTORY PHYSICALon 8 HISTORY PHYSICAL HNO ID: [id number] thor: Latrice HayesService: NeurosurgeryAuthor Type: PhysicianType: HANDPFiled: 02/02/2018 11:17 AMNote Text:UPDATED HISTORY AND PHYSICAL EXAMINATIONSERVICE DATE: 02/02/2018SERVICE TIME: 11:17 AMPHYSICAL EXAM MUST BE COMPLETED ON ADMISSIONThe History and Physical (completed in the past 30 days) has been reviewedand the patient has been examined. The contents accurately reflect thepatient's condition with the following additions or revisions since theHANDP was completed.Examination indicates no changes.This HANDP can be found in the attached.SIGNATURE: Latrice Hayes MD PATIENT NAME: Sonia Lozoya DerueDATE: February 02, 2018 : 11:17 AM PAGER:[phone] Normal [facility] NURSING PROGon 02-02-2018 Protein mass conc HNO ID: [id number] thor: Cely (Rn) SHERRELL Deeervice: (none)Author Type: Registered NurseType: Nursing Progress NoteFiled: 02/03/2018 3:36 AMNote Text: Nursing Progress NotePatient Name: Sonia KarimiMRN: [id number] [facility]/JD-9S-[id number] Daily Note:1900 Assumed care of pt, pt resting in bed with family at bedside.Breathing regular and unlabored, call chan within reach, bed alarm on.2019 Assessment and vitals as charted. Pt denies any chest pain, SOB,headache, nausea, or tingling. Pt reports slight numbness in bilateralupper extremities but reports this was her baseline prior to surgery.Breathing regular and unlabored. Dressing in intact with scant amount ofserosangeous drainage, no change since hand off report. AILEEN drain is notedand to bulb suction. All extremities are warm, mobile, cap refill < 3seconds, pulses present, strength is strong and equal bilaterally. IVFinfusing as prescribed. Pt denies any needs at this time, call chan withinreach, bed alarm on. Will continue to monitor.2039 Paged [facility] regarding held medications in APR.2099 Paged [facility] regarding medications.2129 Paged [facility] regarding medications.221 Spoke with [place] regarding held medications was informed to contactsurgery team.[address] Kim regarding help medications.2247 Dr. Hayes consulting solution manager for Ka[facility], paged sent out.2255 Spoke with Shaun, verbal order with read back to continue all heldmedications.2340 Spoke with pharmacy was informed that pt has tolerated valium in thepast with the allergy to ativan.0000 Pt resting in bed with eyes closed, breathing regular and unlabored,call chan within reach, bed alarm on. Will continue to monitor.0300 Pt resting in bed with eyes closed, breathing regular and unlabored,call chan within reach, bed alarm on. Will continue to monitor.This note was completed by: Cely Dee RN [facility] Protein mass conc HNO ID: [id number] thor: Vika (Rn) SHERRELL Barervice: NursingAuthor Type: Registered NurseType: Nursing Progress NoteFiled: 02/02/2018 6:00 PMNote Text: Nursing Progress NotePatient Name: Sonia KarimiMRN: [id number] Location: [facility] POOL/[facility] * Daily Note: ASSUMED CARE OF PATIENT, VSS, WHEN AROUSED A+OX3 AND IDCHECKED X2, DENIES NAUSEA AND PAIN IS 10/10 TO THE INCISION SITE,ANTERIOR NECK DRESSING WITH SCANT AMOUNT SEROSANG DRAINAGE, AILEEN FROM NECKINCISION TO CONTINUOUS BULB SUCTION WITH SCANT SEROSANG DRAINAGE,NEUROVASCULAR CHECKS ARE INTACT SEE NPR, BILATERAL EQUALLY STRONG HANDGRASPS WITH PEDAL PUSHES AND PULLS, PATIENT WITH NUMBNESS/TINGLING TOHANDS PER PREOP STATUS, DEEP BREATHING ENCOURAGED, BILATERALSEQUENTIALS ARE ON, NEUROVASCULAR CHECKS ARE INTACT SEE [id number] PATIENT STILL C/O PAIN 10/10 TO THE ANTERIOR NECK [id number] SISTER OF THE PATIENT UPDATED AT THE [id number] WHEN AROUSED PATIENT DENIES NAUSEA AND PAIN IS TOLERABLE 5/10, VSS,NECK DRESSING [id number] SISTER OF THE PATIENT UPDATED AT THE BEDSIDEThis note was completed by: Vika Bar RN [facility] Protein mass conc HNO ID: [id number] thor: Addie (Rn) SHERRELL Lintonervice: NursingAuthor Type: Registered NurseType: Nursing Progress NoteFiled: 02/02/2018 3:36 PMNote Text: Nursing Progress NotePatient Name: Sonia KarimiMRN: [id number] Location: [facility] * 1521: Patient arrived to PACU from OR. Patient is awake and alert,resting in bed. C/o pain 9/10 and medicated by MACHINE HOSE CUTTER at bedside. Patientendorses numbness and tingling in BUE but it is no different thanpreoperatively. See NPR and LDA for further assessment.This note was completed by: Addie Linton RN [facility] Protein mass conc HNO ID: [id number] thor: iVka (Rn) Torey, RNService: (none)Author Type: Registered NurseType: Nursing Progress NoteFiled: 02/02/2018 6:18 PMNote Text: Nursing Progress NotePatient Name: Sonia KarimiMRN: [id number] Location: [place] [address] [address] Daily Note:0834 Pt alert and oriented X 3. States posterior neck pain 8-9.Medicated with 1000 mg tylenol with sips H2O. Continues to c/o numbnessand tingling to BUE and BLE. Gait unsteady. Using BSC with assist forvoids.IV fluids infusing. Assessment as charted.This note was completed by: Vika Lema [id number] Report given to Delilah in armida-op.1135 Out via bed to armida-op.1805 Pt returned to room. Anterior left neck dressing intact withserosanguinous fluid drips from lower edge. Pt states able to feeltemperature of my hands when touching pt feet, improved since prior tosurgery. AILEEN intact. States still has numbness and tingling to BUE. Ptsister present . Pt passed swallow eval. [facility] OPERATIVE NOon 02-02-2018 OPERATIVE NO HNO ID: [id number] thor: Latrice Jorgensen: NeurosurgeryAuthor Type: PhysicianType: Operative ReportFiled: 02/03/2018 6:02 PMNote Text:[facility] - Operative ReportSONIA KARIMI SDOB: [birth year]AGE: 62.SEX: FMRN: [id number] TYPE: IHOSP SVC: INTMLOCATION: [id number] PHYSICIAN: IRMA Paredes NUMBER: [id number] OF SURGERY/PROCEDURE: 02/02/2018INCISION/PROCEDU RE START TIME: 1:42 PMINCISION CLOSE/PROCEDURE END TIME: 3:15 PMPREOPERATIVE DIAGNOSIS: C3-4 grade 1 spondylolisthesis, C3-4 diskherniation, C3-4 spinal cord compression, progressive myelopathy.POSTOPERATIVE DIAGNOSIS: C3-4 grade 1 spondylolisthesis, C3-4 diskherniation, C3-4 spinal cord compression, progressive myelopathy.SURGEON: EREN ClayISTANT: college sports assistant is Dr. Merrick Ramirez.SURGERY/PROCEDURE: Anterior cervical diskectomy at C3-4 level, anteriorcervical partial corpectomy at C3-4 level, anterior cervical interbodyarthrodesis utilizing allogenous bone graft at C3-4, anterior cervicalC3-4 instrumentation utilizing Colleen spine instrumentation, applicationof Antonio-Wells tongs, utilization of intraoperative microscope,utilization of intraoperative somatosensory motor-evoked potentialmonitoring.ANESTH ESIA: General endotracheal.ESTIMATED BLOOD LOSS: 20 cc.FLUIDS: The patient received 1200 cc of crystalloid.COMPLICATIONS: None.INDICATIONS FOR SURGERY: The patient is 62-year-old female, who hasprogressive weakness in arms, legs, inability to ambulate. The patientwas admitted through the emergency room. The patient's MRI scandemonstrated cervical spinal cordcompression at C3-4 with myelomalacia. The patient decided to go aheadwith surgical intervention.Surgical benefits and risks were discussed in detail including bleeding,infection, CSF leak, paralysis, failure to improve, need forfurther surgeries, trouble swallowing, permanent feeding tube, carotidartery injury, esophageal injury, , stroke, myocardial infarction,DVT, PE.DESCRIPTION OF PROCEDURE: After patient was identified over in thepreoperative area, she was brought towards operating room where she wasintubated. Perioperative antibiotics were administered. The patient wasplaced supine on flat Jamal table and her pressure points were doublepadded considering her body habitus. Antonio- Wells tongs were appliedalong with 20 pounds of traction. Intraoperative C-arm was used toidentify operative levels. The patient's neck was prepped and draped insterile fashion.Left transverse incision was made with a #20 scalpel. Dissection wascarried down through subcutaneous tissue. The platysma was transgressedundermined cranially and caudally. Superficial cervical fasciawas opened. Medial edge of sternocleidomastoid muscle wasidentified. Dissection plane in between trachea and esophagus mediallycarotid sheath laterally was established. Prevertebral space wasentered. Distraction pin was placed at C3 and the level wasverified with intraoperative C-arm and confirmed independently byDr. Kim. Longus colli muscles were detached bilaterally andself-retaining retractors were applied. Distraction across C3-4disk space was initiated. Significant instability was encountered.C3-4 diskectomy was started with a #15 blade. Large anteriorosteophytes were removed with 3 mm Kerrison rongeurs. Intraoperativemicroscope was introduced and rest of surgery was done under themicroscope. Partial corpectomy for about 55% range was performedwith high-speed Midas Jacob drill, posterior osteophytes were resectedalong with the uncovertebral joints. Decompression was achievedcranially and caudally. Copious irrigation was used. The patient's somatosensory and motor-evoked potentials remained stable.Anterior C3-4 interbody arthrodesis was performed with 10 mm lordoticallograft inserted with standard techniques. Traction was removed.Anterior cervical spine instrumentation of C3-4 was performed [id number] Colleen spine anterior cervical plate, which was secured atC3-4 with bilateral 14 mm variable angle screws.AP and lateral C-arm views demonstrated good placement of instrumentation.The patient's somatosensory and motor-evoked potentials remained stable. Copious irrigation was used.Prevertebral drain was exited through a separate stab wound.Wound was closed in sterile fashion utilizing 3-0 Vicryl, 4-0 Monocryl,and Steri- Strips. Sterile dressing was applied.The Antonio-Wells tongs were removed. The patient was extubated.The patient was taken over to recovery room with stable vital signs.At the end of the procedure, needle and sponge count was correct.There were no intraoperative complications.The patient's somatosensory and motor-evoked potentials remained stablethroughout the procedure.NAHUM Clay:[id number] #: [id number]: 02/02/2018 14:56:35 cc: [facility] PROGRESSon 12-21-2018 Protein mass conc HNO ID: [id number] thor: Francisco Taylorervice: General Internal MedicineAuthor Type: PhysicianType: Progress NotesFiled: 02/02/2018 12:03 PMNote Text:PROGRESS NOTE - INTERNAL MEDICINEPATIENT NAME: Sonia KarimiMRN: [id number] PHYSICIAN: Francisco TaylorUBJECTIVEINTERVAL HISTORY OF PRESENT ILLNESS: Patient sitting up in bed. Reportslidocaine patch and tylenol has helped her pain. Reports having a BM andwaiting to have surgery around 11 am.OBJECTIVEPHYSICAL EXAM:BP 162/77 Pulse 64 Temp (!) 7 ?C (44.6 ?F) Resp 16 Ht 167.6 cm(5' 6) Wt 125.9 kg (277 lb 9 oz) SpO2 98% BMI 44.80 kg/m?Intake/Output Summary (Last 24 hours) at 02/02/18 1159Last data filed at 02/02/18 1100 Gross per 24 hourIntake 2130 mlOutput 225 mlNet 1905 mlGENERAL: Alert, no acute distress, cooperative, obeseSKIN: Skin color, texture, turgor normal. No rashes or lesions.NECK: No jugulovenous distention, Supple, decreased ROMLUNGS: Lungs clear to auscultation, Good diaphragmatic excursionCARDIAC: Normal S1 and S2; no rubs, murmurs, or gallopsABDOMEN: Abdomen soft, non-tender, BS normal m1BSGFMXVABNV: No LE edemaNEURO: AANDOx3, Non-focal sensation intact B?L upper and lower extremities,5/5 strength upper and lower extremitiesPULSES: 2+ radial, 2+ carotidDATA:Diagnostic tests reviewed for today's visit:Most recent labsMost recent imagingCBC, Coags, BMP, Mg, PhosRecent Labs 02/01/1806WBC 10.52 10.21 -- 14.93*HB 11.3* 11.6 -- 12.2HCT 35.7* 36.7 -- 37.1PLT 235 223 -- 259INR 0.9 -- -- --APTT -- -- 25.4 --NA 139 138 -- 141K 3.9 4.2 -- 3.5*CHLOR 102 99 -- 101CO2 25 27 -- 25BUN 18 20 -- 26*CREAT 0.75 0.81 -- 0.92GLUC 101* 113* -- 164*CA 9.6 9.9 -- 9.6Liver Function, Amylase, AND LipaseCardiac EnzymesRecent Labs 01/30/292886GW 102ASSESSMENT AND PLANCervical myopathy [G72.9]- MRI spine: cord compression- Neurosurgery consulted- gabapentin, norco- tylenol and lidocaine patchBladder fullness- check UA for UTI- UA positive for WBC, checking urine cultureHTN- c/w amlodipine, maxzideHLD: statinThyroid mass- noted on MRI- thyroid US: benign nodulesHypokalemia- replete, monitorconstipation- c/w colaceOSA- CPAPObesityDVT prophylaxis- SCDs?Surgery was planned todaySIGNATURE: Mandie Aguilar APRN.CNPDATE: February 02, 2018TIME: 11:59 AMCONTACT #: [phone] have reviewed the progress note obtained and documented by the CertifiedNurse Practitioner, and I personally participated in the rosario components. Terrell discussed the case and management of the patient's care. Thefollowing comments revise or confirm relevant rosario components of theCertified Nurse Practitioner's note.Francisco Dow MD Normal [facility] Protimeon 02-02-2018 INR Coag RelTime (Bld) 0.9 {INR} Normal 0.9-1.3 [facility] Comment on above: Result Comment: Kathy min K Antagonist (VKA) Therapeutic Range: INR 2 to 3 (Target INR of 2.5)Note: For patients treated with VKA drugs, such as warfarin, the [employer] [employer] 2012 Guideline recommends a therapeutic INR range of 2 to 3 (target INR of 2.5). This recommendation includes high-risk patients with antiphospholipid syndrome with previous arterial or venous thromboembolism, current-generation mechanical or bioprosthetic aortic heart valve replacement.Note: Patients with mechanical aortic valve replacement and additional risk factors for thromboembolic events (atrial fibrillation, previous thromboembolism, LV dysfunction, hypercoagulable conditions) or an older generation mechanical AVR (i.e., ball in-Cage) or any mechanical MVR should have a INR therapeutic range of 2.5 to 3.5 (target INR of 3).Radha GH, et al. Chest 2012, 141:7S-47SHawa RA, et al. [facility] 2017, 70: 252-289 PT Sec 10.3 sec Normal 9.7-13.0 [facility] THERAPY NTon 02-02-2018 THERAPY NT HNO ID: [id number] thor: Jose (Ot/L) ChitoService: Occupational TherapyAuthor Type: Occupational TherapistType: Therapy (PT/OT/Speech/Resp)Filed: 02/02/2018 12:01 PMNote Text:OCCUPATIONAL THERAPY MISSED VISITSERVICE DATE: 02/02/2018SERVICE TIME: 1200 to 1201ROOM: [facility] OR POOL ([facility] Pre/Post 15)Attempted Evaluation (Re-Evaluation). Patient not seen due to Surgery(patient off floor for s/x at this time. ). OT will hh-cxbjjarQu-Ezbqdmnyva as appropriate. Thank you.SIGNATURE: Jose Dale OT/Adam PATIENT NAME: Sonia Lozoya DerueDATE: February 02, 2018 : 12:01 PM Normal [facility] THERAPY NT HNO ID: [id number] thor: Ashlee (Pt) Jamieice: Physical TherapyAuthor Type: Physical TherapistType: Therapy (PT/OT/Speech/Resp)Filed: 02/02/2018 11:52 AMNote Text:PHYSICAL THERAPY MISSED VISITSERVICE DATE: 02/02/2018SERVICE TIME: 1140 to 1140ROOM: [id number] Treatment. Patient not seen due to Surgery. [facility] Another attempt will be made to see this pt tomorrow for PTRe-Eval if pt is appropriate and as schedule allows.SIGNATURE: Ashlee Marie PT PATIENT NAME: Sonia Lozoya DerueDATE: February 02, 2018 : 11:51 AM Normal [facility] THERAPY NT HNO ID: [id number] thor: Ashlee (Pt) Olivierervice: Physical TherapyAuthor Type: Physical TherapistType: Therapy (PT/OT/Speech/Resp)Filed: 02/04/2018 9:06 AMNote Text:Physical Therapy Re-EvaluationSERVICE DATE: 02/03/2018SERVICE TIME: 1550 to 1620ROOM: [id number] Discharge Disposition: Acute RehabRecommended Discharge Disposition Comments: Rec AR to maximize functionalmobility and safetyJustification For Post Acute Needs: Anticipate that patient will requiredaily (5x/wk) skilled therapy in a post-acute facility setting at the timeof acute hospital discharge;Anticipate patient will tolerate 3 hours ofdaily therapy at the time of admission to post-acute settingRecommended Discharge Equipment: No equipment needs anticipatedPT Recommendations to Nursing: Ambulate with device;Transfer to/fromchair;OOB for Meals;With assist of 2 peopleDevice: Wheeled WalkerPT 6 Clicks Score: 17Precautions/Activity Restrictions: Fall Risk;Spine (Cervical )ASSESSMENT :Pt presents with continued functional mobility deficits needing continuedskilled PT services to maximize therapy potential.Patient Disposition at Start of Session: Supine in Bed;Call Chan in ReachPatient Disposition at End of Session: OOB in Chair;Call Chan in ReachTolerated Full SessionPhysical Therapy Problem List: Balance Impaired;Functional MobilityImpairment;Decreas ed Strength;Decreased Range Of Motion;Decreased ActivityTolerance;Impaired Self Care;Safety Deficits;PainPatient /Caregiver Goals: Go HomeGoals for Plan of Care:Able to perform HEP with: Verbal Cues OnlyTransfer supine to/from sit with: Modified IndependentTransfer sit to/from stand with: Modified IndependentAmbulate with: Modified IndependentDistance: 50Device: Wheeled WalkerAmbulate up and down steps with: Contact Guard AssistanceNumber of steps: 3Device: RailTransfer: All functional transfers with mod IRehab Potential: GoodPLAN:Treatment Frequency (times per week): 7Treatment Duration (number): (as able LOS) Current admissionTreatment Interventions: Education;Self Care / Home Management;EnergyConservat ion Training;Joint Mobility;Strengthening;Fun ctional MobilityTraining;Balance Training;Neuromuscular Re-educationPlan of Care developed with: PatientTREATMENT INTERVENTIONS:Therapy Diagnosis: Reduced mobility-otherIntervention s Provided: Re-evaluation;Therapeutic Activity (56213)$ Reevaluation (65580) Billed Units: 1 unitPatient presents with impaired functional mobility, ADL performance,strength and endurance impacting ability to function without physicalassist from staff. Patient's needs exceeds resources available at home tosafely return home at this time secondary to current functional deficits.Pt currently requires skilled therapy to address mobility and self carelimitations as well as progression of activities within safe limits toprevent falls. Patient is currently stable in presentation though work upis still in progress, and requires Min A with all functional mobility. Ptis a low complexity evaluation for these reasons.Therapeutic Activity (60961) Treatment Minutes: 252 unitsSkilled Intervention(s): Instructed patient in log roll technique onto LsideInstructed patient in supine to sit pushing with upper extremities to situp from log rollInstruction in sit to stand technique with proper hand placement and bodypositioning at edge of bed/chair from elevated bed surfaceInstruction in stand to sit technique with lower extremities touchingchair/bed and reaching back for surface, good hand placement and sits downwith controlInstruction in sit to and from stand technique with proper hand placementand body positioning at edge of bed to sidestep to bedside chair.Education with proper tech, hand placement and rational of spinalprecautions including log roll tech.Verbal review of Cervical post-op precautions, pt verbalizedunderstanding. Pt advised to minimize any stress on neck and to keep BUE's at shoulder height or below to avoid cervical strain, pt verbalizedunderstanding.Pt stood up from elevated bed and performed static stand progressing todynamic standing activities including: lateral weight shift, foot forwardtap, 1 step forward and 1 step backward and sidestepping along EOB,attempted marching-pt refused d/t B knee OA-abandon activity. No kneebuckle or instability noted in B LE's during dynamic standing activities.Pt then performed short gait trials with RW and then sat in bedside chairpost session. No knee bucklePT RE-Eval initiated with pt education regarding role of PT, D/CRecommendations, pausing with transitions checking for dizziness, alongwith sitting up in the chair for every meal.Pt instructed in seated exe x 10 reps 3x daily consisting of: AP, LAQ,and Marching, pt familiar with and agrees to do them on her own.Total Timed Code Treatment Minutes: 25Total Treatment Time (minutes): 30FUNCTIONAL G CODE:PT 6 Clicks Score: 17 (02/03/18 1550)Mobility: Walking and Moving Around Current Status (G8978): CK ()Mobility: Walking and Moving Around Goal Status (G8979): CJ ()Based on clinical assessment and the score on the 6 Clicks FunctionalAssessment Tool, the G code and corresponding severity modifiers aredocumented above.SUBJECTIVE:Current Hospital Course:Per EPIC:Pt is a 62 yo female with progressive cervical myelopathy over last 2weeks, unable to use arms/hands.Deltoid 2/5, left biceps tricep 2/5, right biceps triceps 3/5, handintrinsics 2/5.?MRI cervical- C4-5 autofusion, C3-4 instability, spinal cord compression,myelomalacia.P rocedure 02/02/18: ARTHRODESIS ANT DISC PREP DISCECTOMY OSTEOPHYTECTOMYDECOMPRES S CORD/NERVE ROOT C' BELOW C9Iqhpfl for Physical Therapy Consult : Sx 02/02/18 Ant DisectomydecompressionRele vant Past Medical History: cervical myopathy; frequent fallsPatient Report: Nursing Ok'd therapy. Patient verbally consented totherapy. Pt is pleasant and cooperative. Pt talking about her extensivework with PT doing Aquatic therapy.Home EnvironmentPatient Lives With: Family (niece, who works)Assistance Available: Part timeEntry To Home: Stairs;With RailNumber Of Stairs Into Home: 3Number Of Stairs To Bed/Bath: 0Tub/Shower Type: tub showerLaundry: first floor-pt completedEquipment Owned: Cane;Grab Bars-Shower;RollatorPrior Functional Level: Within Functional Limits;Required AssistanceAssistance Required With: Cleaning;Laundry;MealsPrio r Functional Level Comments: pt working full timeOBJECTIVE:CURRENT FUNCTIONAL STATUS:Current Functional Mobility Assist Level Additional InformationRolling Contact Guard Assistance (log roll to prevent Cervical Rotation )Supine to Sit Minimal AssistanceSit to Supine (pt up in chair post session )Scooting SupervisionSit to Stand Minimal Assistance (with bed elevated )Stand to Sit Minimal AssistanceBed to Chair Minimal Assistance (sidestepping from foot of bed to chair )Bed To Chair Transfer Equipment: Wheeled WalkerToilet/Commode Contact Guard AssistanceGait Minimal Assistance Gait Device: Wheeled Walker Gait Distance (feet): 5' x 2, 5' sidesteps along EOBStairsCurb StepCar TransferGeneral Gait Deviations: Veronica decreased;Step length decreased;Flexedtrunk posture (Increased knee flexion)Balance: Static Sitting;Dynamic Sitting;Static Standing;Dynamic StandingStatic Sitting Balance: IndependentDynamic Sitting Balance: SupervisionStatic Standing Balance: Contact Guard AssistanceDynamic Standing Balance: Minimal AssistanceJ-HLM: 5: Standing (1 or more minutes)Please see discipline specific clinical documentation flowsheet forcomplete details for this therapy evaluation/treatment.TINO NARAYAN: Ashlee Marie PT PATIENT NAME: Sonia HemphillueDATE: February 02, 2018 : 7:42 AM [facility] XR CERVICAL 2V AP/LATon 01-14 Protein mass conc * * *Final Report* * *DATE OF EXAM: Feb 02 2018 3:14PM HCR 5308 - XR CERVICAL 2V AP/LAT / REASON: PAIN * * * * Physician Interpretation * * * *RESULT: C-SPINE 02/02/2018 3:14 PMHISTORY: PAINFluoroscopic Radiation Summary:Plane A, Air Kerma: 9.7 mGyDose Area Product (DAP): 0.0 mGy*usF1Laqbsa time: 0:11 min:secCOMPARISON: MRI 01/30/2018RESULT:2 Fluoroscopic spot image(s) obtained by Dr. LATRICE HAYES. The radiologist was not present during the procedure.Anterior fusion plate at C3-4, appropriately positioned.--IMPRESSION:FL UOROSCOPY FOR OPERATIVE SUPPORT.Please refer to the procedural report for further details.Transcribed Using Voice RecognitionTranscribe Date/Time: Feb 03 2018 4:30PDictated by: JOSSELYN BUENO MDThis examination was interpreted and the report reviewed and electronically signed by: JOSSELYN BUENO MD on Feb 03 2018 4:32PM [id number] [facility] ANES PREOPon 02-01-2018 ANES PREOP HNO ID: [id number] thor: Igor Berry (Aa)Service: AnesthesiologyAuthor Type: Anesthesia AssistantType: Anesthesia PreOpFiled: 02/01/2018 3:19 PMNote Text: -------Attestation signed by Jadon Gaona IV at 02/01/2018 4:22 PMStaff NoteI have reviewed pertinent medical records/tests regarding this patient. Agreewith the anesthesia provider's assessment and plan.BOGDAN Aguiar IVchandler [facility] 20174:22 PM ---- ANESTHESIOLOGY PREOPERATIVE ASSESSMENTSERVICE DATE: 02/01/2018 : 1953SERVICE TIME: 1520Surgeon(s):Toomas AntonProcedure(s) (LRB):DISCECTOMY CERVICAL ANTERIOR WITH FUSION (N/A)Estimated body mass index is 44.8 kg/m? as calculated from the following: Height as of this encounter: 167.6 cm (5' 6). Weight as of this encounter: 125.9 kg (277 lb 9 oz).MOST RECENT HEMATOCRIT AND POTASSIUM RESULTS:Hematocrit 36.7 02/01/2018Potassium 4.2 02/01/2018CBC with diff:WBC 10.21 02/01/2018RBC 4.39 02/01/2018Hemoglobin 11.6 02/01/2018Hematocrit 36.7 02/01/2018MCV 83.6 02/01/2018MCH 26.4 02/01/2018MCHC 31.6 02/01/2018RDW-CV 13.7 02/01/2018Platelet Count 223 02/01/2018MPV 9.5 02/01/2018Neut% 73.1 02/01/2018Lymph% 17.1 02/01/2018Mono% 6.6 02/01/2018Eosin% 2.9 02/01/2018Baso% 0.3 02/01/2018Abs Neut (ANC) 7.46 02/01/2018Abs [place] 0.67 02/01/2018Abs Eosin 0.30 02/01/2018Abs Baso 0.03 02/01/2018Glucose (mg/dL)Date Value02/01/2018 113 Potassium (mmol/L)Date Value02/01/2018 4.2 Sodium (mmol/L)Date Value02/01/2018 138 Chloride (mmol/L)Date Value02/01/2018 99 CO2 (mmol/L)Date Value02/01/2018 27 Creatinine (mg/dL)Date Value02/01/2018 0.81 BUN (mg/dL)Date Value02/01/2018 20 Anion Gap (mmol/L)Date Value02/01/2018 12 Calcium (mg/dL)Date Value02/01/2018 9.9 ANES DOS/PREOP NOTE:Vitals: 2 6 752BP: (!) 109/16 149/54 137/62 131/70Pulse: 66 81 60 64Resp: 18 18 18 16Temp: 37.1 ?C (98.7 ?F) 36.8 ?C (98.3 ?F) 36.7 ?C (98 ?F) 36.9 ?C (98.4?F)TempSrc: Oral Oral Oral OralSpO2: 97% 97% 97% 99%Weight:Height:ACTIVE PROBLEM LISTEssential HypertensionCervical PolypHyperlipidemiaOsteoar thritis of Both KneesSleep ApneaObesity, Class Iii, Bmi 40-49.9 (Morbid Obesity) (Hcc)Cervical MyopathyCervical Spondylosis With MyelopathyPAST MEDICAL HISTORYDiagnosis Date- Cervical polyp- COPD (chronic obstructive pulmonary disease) (HCC)- Hyperlipidemia- Hypertension- Minor depressionPAST SURGICAL HISTORYProcedure Laterality Date- REMOVAL ADENOIDS,PRIMARY,<12 Y/O Adenoidectomy- REMOVAL OF TONSILS,<12 Y/O TonsillectomyFAMILY HISTORYProblem Relation Age of Onset- Cancer Father leukemia- Cancer Mother skin cancer- Cancer Paternal Grandfather stomach cancer- Cancer Paternal Grandmother colon to liver- Cancer Sister cancer in situ - breast- Diabetes Father- Diabetes Sister- Heart Mother tachycardiaSocial History:Social HistorySubstance Use Topics- Smoking status: Former Smoker- Smokeless tobacco: Never Used Comment: Quit smokig 38 years ago- Alcohol use NoNo current facility-administered medications on file prior to encounter.Current Outpatient Prescriptions on File Prior to Encounter:amLODIPine (NORVASC) 5 mg tablet Take 1 tablet by mouth once daily.atorvastatin (LIPITOR) 10 mg tablet Take 1 tablet by mouth once daily.cholecalciferol (VITAMIN D-3) 2,000 unit tablet Take 2,000 Units by mouthonce daily.cloNIDine HCl (CATAPRES) 0.1 mg tablet Take 1 tablet by mouth daily atbedtime.COMPOUNDED PRESCRIPTION BIPAP 1 liter bleed in 12/5 cm. RR 14Replacementmachine with heated humidity. CPAP mask and supplies.Use nightly.diclofenac XR (VOLTAREN-XR) 100 mg Tb24 TAKE 1 TABLET DAILY WITH FOODgabapentin (NEURONTIN) 100 mg capsule TAKE 2 CAPSULES BY MOUTH TWICE A GPAXOYZBDZE-ZHM-HWFUFMOPP- VIT D3 ORAL Take 3 tablets by mouth once daily.HYDROcodone-acetamin ophen (NORCO) 5-325 mg per tablet Take 1 tablet bymouth at bedtime as needed for up to 30 days.Earliest Fill Date: 08/29/17HYDROcodone-acetami nophen (NORCO) 5-325 mg per tablet Take 1 tablet bymouth at bedtime as needed for up to 30 days.MULTIVIT WITH IRON-MINERALS (MULTIVITAMIN AND MINERALS ORAL) Take 1 tabletby mouth once daily.predniSONE (DELTASONE) 10 mg tablet Please take 3 pills twice daily for 3days, then 2 pills twice daily for 3 days, then 1 pill twice daily for 3days, then 1 pill daily till gone. (Patient not taking: Reported on01/30/2018)sertraline (ZOLOFT) 100 mg tablet Take 1 tablet by mouth once daily.triamterene-hydrochl orothiazide 37.5-25 mg per capsule Take 1 capsule bymouth once daily.Current Facility-Administered Medications:acetaminophen 1,000 mg tab(s) (TYLENOL) 1,000 mg ORAL q 6 H PRN Francisco PAshraf 1,000 mg at 02/01/18 1043acetaminophen 650 mg tab(s) (TYLENOL) 650 mg ORAL q 4 H PRN Mandie([employer]) GriffinamLODIPine 2.5 mg tab(s) (NORVASC) 2.5 mg ORAL DAILY Francisco P Paloma 2.5 mgat 02/01/18 1044atorvastatin 10 mg tab(s) (LIPITOR) 10 mg ORAL DAILY Mandie ([employer])Jeff 10 mg at 02/01/18 1044cloNIDine HCl 0.1 mg tab(s) (CATAPRES) 0.1 mg ORAL AT BEDTIME Francisco PAshraf 0.1 mg at 01/31/18 2100docusate sodium 100 mg cap(s) (COLACE) 100 mg ORAL BID Mandie ([employer])Jeff 100 mg at 02/01/18 1044gabapentin 200 mg cap(s) (NEURONTIN) 200 mg ORAL BID Francisco P Paloma 200 mgat 02/01/18 1044HYDROcodone 5 mg - acetaminophen 325 mg tablet (NORCO) 1 tablet ORAL HSPRN Francisco P Paloma 1 tablet at 01/31/18 2100lidocaine - VERIFY PATCH OTHER q 8 H Mandie ([employer]) Griffinlidocaine 5 % 1 Patch (LIDODERM) 1 Patch TRANSDERMAL DAILY Mandie([employer]) Jeff 1 Patch at 02/01/18 1041lidocaine patch - REMOVE OTHER AT BEDTIME Mandie ([employer]) GriffinNaCl 0.9% iv infusion 75 mL/hr INTRAVENOUS CONTINUOUS Nehaw (Res) Connieast Rate: 75 mL/hr at 02/01/18 1446 75 mL/hr at 02/01/18 1446sertraline 100 mg tab(s) (ZOLOFT) 100 mg ORAL DAILY (8 PM) Francisco P Adcsgh433 mg at 01/31/18 2111Allergies:ALLERGIESAll ergen Reactions- Ativan [Lorazepam] Hives- Neosporin [Benzalko* RashREVIEW OF SYSTEMS: REVIEW OF SYSTEMS: As stated in Active Problem List/Past Medical HistoryANESTHESIOLOGY REVIEW:Airway Assessment: MP 1; Neck ROM: Limited Flexion and Extension andParasthesia with Flexion and Extension; Airway Evaluation: Short Neck andThick neckSymptoms of Sleep Apnea: OSAIntubation History: No previous history of difficult intubationDentition: Missing tooth multiple molarsADDITIONAL PHYSICAL EXAM:Lungs: Patient health status unchanged since recent history and physical.See history and physical for exam findings.Cardiac: Patient health status unchanged since recent history andphysical. See history and physical for exam findings.Additional Pertinent Findings: N/AADVERSE ANESTHESIA EVENT: No history of adverse eventFAMILY HIISTORY OF ANESTHESIA: No known issuesBLOOD PRODUCTS: Will accept Blood/Blood ProductsOTHER MEDICAL PROBLEMS: Pt stopped steroids about 2 weeks agoI have interviewed and examined the patient. I have reviewed the medicalrecord and/or the pre-anesthesia evaluation, pertinent labs, and testresults.Significant changes in the patient's condition since the History andPhysical, not otherwise documented in primary service progress notes: NoAnesthetic risks, benefits, alternatives, personnel and consent discussed:YesANES REVIEW: This contains updated information obtained within 48 hours ofSurgery/Procedure.EKGCON CLUSIONS:- Technically difficult exam due to body habitus.- Exam indication: Routine surveillance of valve stenosis- The left ventricle is normal in size.Left ventricular systolic functionishyperdynamic. EF = 75 ? 5% (2D biplane) Baseline left ventriculardiastolicfuncti on is consistent with abnormal relaxation (stage 1).- The right ventricle is normal in size. Right ventricular systolicfunction isnormal.- The left atrial cavity is mildly dilated. (39 cc/m?)- There is mild aortic stenosis (Vmax 2.1 m/s)- Prior echocardiogram performed on 04/09/2012. No significant change.?EKGNAME : SONIA KARIMIPID : [id number] : [id number] : FemaleRace : CaucasianORD : [id number]?Procedure Date : Jan 31 2018 18:50:24Edit Date : Feb 01 2018 09:41:50?Diagnosis:SINUS RHYTHM WITH MARKED SINUS ARRYTHMIAOTHERWISE NORMAL ECGWHEN COMPARED WITH ECG OF 16-FEB-2004 10:32,NO SIGNIFICANT CHANGE WAS FOUNDConfirmed by NERISSA CARMICHAEL M.D. ([id number]) on 02/01/2018 9:41:48 AM?Ventricular Rate : 69 ?BPMAtrial Rate : 69 ?BPMP-R Interval : 152 ?msQRS Duration : 80 ?msQ-T Interval : 390 ?msQTC Calculation(Bezet) : 417 ?msP Shelby : 74 ?degreesR Shelby : 42 ?degreesT Shelby : 36 ?degrees?Test Reason : Pre OP?Location : 124 : 4B L ?466?Overread By : JANY William,AMIREdited By : JANY William,AMIRReferred By : JESI DOWcquired by : VENU HILLIARDISSIGNATURE: BARB Estevez PATIENT NAME: Sonia HemphillueDATE: February 01, 2018 : 3:16 PM PAGER/CONTACT #: [facility] PREOP HNO ID: [id number] thor: Yaritza Acostaervice: AnesthesiologyAuthor Type: AnesthesiologistType: Anesthesia PreOpFiled: 02/02/2018 11:50 AMNote Text: ANESTHESIOLOGY PREOPERATIVE ASSESSMENTSERVICE DATE: 02/01/2018 : 1955SERVICE TIME: 10:13 AMSurgeon(s):Latrice HayesProcedure(s) (LRB):DISCECTOMY CERVICAL ANTERIOR WITH FUSION (N/A)Estimated body mass index is 44.8 kg/m? as calculated from the following: Height as of this encounter: 167.6 cm (5' 6). Weight as of this encounter: 125.9 kg (277 lb 9 oz).MOST RECENT HEMATOCRIT AND POTASSIUM RESULTS:Hematocrit 36.7 02/01/2018Potassium 4.2 02/01/2018ANES DOS/PREOP NOTE:Vitals: [id number] 752BP: (!) 109/16 149/54 137/62 131/70Pulse: 66 81 60 64Resp: 18 18 18 16Temp: 37.1 ?C (98.7 ?F) 36.8 ?C (98.3 ?F) 36.7 ?C (98 ?F) 36.9 ?C (98.4?F)TempSrc: Oral Oral Oral OralSpO2: 97% 97% 97% 99%Weight:Height:ACTIVE PROBLEM LISTEssential HypertensionCervical PolypHyperlipidemiaOsteoar thritis of Both KneesSleep ApneaObesity, Class Iii, Bmi 40-49.9 (Morbid Obesity) (Hcc)Cervical MyopathyCervical Spondylosis With MyelopathyPAST MEDICAL HISTORYDiagnosis Date- Cervical polyp- COPD (chronic obstructive pulmonary disease) (HCC)- Hyperlipidemia- Hypertension- Minor depressionPAST SURGICAL HISTORYProcedure Laterality Date- REMOVAL ADENOIDS,PRIMARY,<12 Y/O Adenoidectomy- REMOVAL OF TONSILS,<12 Y/O TonsillectomyFAMILY HISTORYProblem Relation Age of Onset- Cancer Father leukemia- Cancer Mother skin cancer- Cancer Paternal Grandfather stomach cancer- Cancer Paternal Grandmother colon to liver- Cancer Sister cancer in situ - breast- Diabetes Father- Diabetes Sister- Heart Mother tachycardiaSocial History:Social HistorySubstance Use Topics- Smoking status: Former Smoker- Smokeless tobacco: Never Used Comment: Quit smokig 38 years ago- Alcohol use NoNo current facility-administered medications on file prior to encounter.Current Outpatient Prescriptions on File Prior to Encounter:amLODIPine (NORVASC) 5 mg tablet Take 1 tablet by mouth once daily.atorvastatin (LIPITOR) 10 mg tablet Take 1 tablet by mouth once daily.cholecalciferol (VITAMIN D-3) 2,000 unit tablet Take 2,000 Units by mouthonce daily.cloNIDine HCl (CATAPRES) 0.1 mg tablet Take 1 tablet by mouth daily atbedtime.COMPOUNDED PRESCRIPTION BIPAP 1 liter bleed in 12/5 cm. RR 14Replacementmachine with heated humidity. CPAP mask and supplies.Use nightly.diclofenac XR (VOLTAREN-XR) 100 mg Tb24 TAKE 1 TABLET DAILY WITH FOODgabapentin (NEURONTIN) 100 mg capsule TAKE 2 CAPSULES BY MOUTH TWICE A HKIJNZRUISV-OSZ-VRNHFFUFL- VIT D3 ORAL Take 3 tablets by mouth once daily.HYDROcodone-acetamin ophen (NORCO) 5-325 mg per tablet Take 1 tablet bymouth at bedtime as needed for up to 30 days.Earliest Fill Date: 08/29/17HYDROcodone-acetami nophen (NORCO) 5-325 mg per tablet Take 1 tablet bymouth at bedtime as needed for up to 30 days.MULTIVIT WITH IRON-MINERALS (MULTIVITAMIN AND MINERALS ORAL) Take 1 tabletby mouth once daily.predniSONE (DELTASONE) 10 mg tablet Please take 3 pills twice daily for 3days, then 2 pills twice daily for 3 days, then 1 pill twice daily for 3days, then 1 pill daily till gone. (Patient not taking: Reported on01/30/2018)sertraline (ZOLOFT) 100 mg tablet Take 1 tablet by mouth once daily.triamterene-hydrochl orothiazide 37.5-25 mg per capsule Take 1 capsule bymouth once daily.Current Facility-Administered Medications:acetaminophen 1,000 mg tab(s) (TYLENOL) 1,000 mg ORAL q 6 H PRN Francisco PAshrafacetaminophen 650 mg tab(s) (TYLENOL) 650 mg ORAL q 4 H PRN Mandie([employer]) GriffinamLODIPine 2.5 mg tab(s) (NORVASC) 2.5 mg ORAL DAILY Francisco P Ashrafatorvastatin 10 mg tab(s) (LIPITOR) 10 mg ORAL DAILY Mandie ([employer])Jeff 10 mg at 01/31/18 1146cloNIDine HCl 0.1 mg tab(s) (CATAPRES) 0.1 mg ORAL AT BEDTIME Francisco PAshraf 0.1 mg at 01/31/18 2100docusate sodium 100 mg cap(s) (COLACE) 100 mg ORAL BID Mandie ([employer])Griffingabapenti n 200 mg cap(s) (NEURONTIN) 200 mg ORAL BID Francisco P Paloma 200 mgat 01/31/18 2100HYDROcodone 5 mg - acetaminophen 325 mg tablet (NORCO) 1 tablet ORAL HSPRN Francisco P Paloma 1 tablet at 01/31/18 2100lidocaine - VERIFY PATCH OTHER q 8 H Mandie ([employer]) Griffinlidocaine 5 % 1 Patch (LIDODERM) 1 Patch TRANSDERMAL DAILY Mandie([employer]) Griffinlidocaine patch - REMOVE OTHER AT BEDTIME Mandie ([employer]) GriffinNaCl 0.9% iv infusion 75 mL/hr INTRAVENOUS CONTINUOUS [place]haw (Res) SarmeyLast Rate: 75 mL/hr at 02/01/18 0018 75 mL/hr at 02/01/18 0018sertraline 100 mg tab(s) (ZOLOFT) 100 mg ORAL DAILY (8 PM) Francisco P Vbokbj047 mg at 01/31/181Allergies:ALLERGIESAll ergen Reactions- Ativan [Lorazepam] Hives- Neosporin [Benzalko* RashREVIEW OF SYSTEMS: REVIEW OF SYSTEMS: As stated in Active Problem List/Past Medical HistoryANESTHESIOLOGY REVIEW:Airway Assessment: MP 1; Neck ROM: Limited Extension and Parasthesia withFlexion and Extension (bilateral upper and lower extremity numbness);Airway Evaluation: No significant abnormalitiesSymptoms of Sleep Apnea: IRIS, uses biPAPIntubation History: No previous history of difficult intubationDentition: Missing tooth several molarsADDITIONAL PHYSICAL EXAM:Lungs: Patient health status unchanged since recent history and physical.See history and physical for exam findings.Cardiac: Patient health status unchanged since recent history andphysical. See history and physical for exam findings.Additional Pertinent Findings: N/AADVERSE ANESTHESIA EVENT: No history of adverse eventFAMILY HIISTORY OF ANESTHESIA: No known issuesBLOOD PRODUCTS: Will accept Blood/Blood ProductsOTHER MEDICAL PROBLEMS: pt morbidly obese, pt has a hx of mild aorticstenosis on ECHO from 2014. Primary care dr ordered yearly follow-up, ptnoncompliant. Dr Goncalves said it's ok to proceed without follow-up Echo.Pt stopped 2-week trial of prednisone on Monday.I have interviewed and examined the patient. I have reviewed the medicalrecord and/or the pre-anesthesia evaluation, pertinent labs, and testresults.Significant changes in the patient's condition since the History andPhysical, not otherwise documented in primary service progress notes: NoAnesthetic risks, benefits, alternatives, personnel and consent discussed:YesANES REVIEW: This contains updated information obtained within 48 hours ofSurgery/Procedure.WBC (k/uL)Date Value02/01/2018 10.21RBC (m/uL)Date Value02/01/2018 4.39Hemoglobin (g/dL)Date Value02/01/2018 11.6Hematocrit (%)Date Value02/01/2018 36.7MCV (fL)Date Value02/01/2018 83.6MCH (pG)Date Value02/01/2018 26.4MCHC (g/dL)Date Value02/01/2018 31.6RDW-CV (%)Date Value02/01/2018 13.7Platelet Count (k/uL)Date Value02/01/2018 223MPV (fL)Date Value02/01/2018 9.5Glucose (mg/dL)Date Value02/01/2018 113 (H)BUN (mg/dL)Date Value02/01/2018 20Creatinine (mg/dL)Date Value02/01/2018 0.81Sodium (mmol/L)Date Value02/01/2018 138Potassium (mmol/L)Date Value02/01/2018 4.2Chloride (mmol/L)Date Value02/01/2018 99CO2 (mmol/L)Date Value02/01/2018 27Calcium (mg/dL)Date Value02/01/2018 9.9EKG:Procedure Date : Jan 31 2018 18:50:24Edit Date : Feb 01 2018 09:41:50Diagnosis:SINUS RHYTHM WITH MARKED SINUS ARRYTHMIAOTHERWISE NORMAL ECGWHEN COMPARED WITH ECG OF 16-FEB-2004 10:32,NO SIGNIFICANT CHANGE WAS FOUNDConfirmed by NERISSA CARMICHAEL M.D. ([id number]) on 02/01/2018 9:41:48 AMVentricular Rate : 69 ?BPMAtrial Rate : 69 ?BPMECHO:pendingCONCLUSION S:- Technically difficult exam due to body habitus.- Exam indication: Routine surveillance of valve stenosis- The left ventricle is normal in size.Left ventricular systolic functionishyperdynamic. EF = 75 ? 5% (2D biplane) Baseline left ventriculardiastolicfuncti on is consistent with abnormal relaxation (stage 1).- The right ventricle is normal in size. Right ventricular systolicfunction isnormal.- The left atrial cavity is mildly dilated. (39 cc/m?)- There is mild aortic stenosis (Vmax 2.1 m/s)- Prior echocardiogram performed on 04/09/2012. No significant change.? SIGNATURE: BARB Chand PATIENT NAME: Sonia HemphillueDATE: February 01, 2018 : 10:13 AM PAGER/CONTACT #: Normal [facility] Basic Metabolic Panlon 02-01 Anion gap 3 molar conc 12 mmol/L Normal 9-18 [facility] Calcium mass conc 9.9 mg/dL Normal 8.6-10.0 [facility] Chloride molar conc 99 mmol/L Normal 97-105 [facility] CO2 molar conc 27 mmol/L Normal 22-33 [facility] Creatinine mass conc 0.81 mg/dL Normal 0.58-0.96 [facility] Glucose mass conc 113 mg/dL High 74-99 [facility] Potassium molar conc 4.2 mmol/L Normal 3.7-5.1 [facility] Sodium molar conc 138 mmol/L Normal 136-144 [facility] Urea nitrogen mass conc 20 mg/dL Normal 7-21 [facility] CASE MANAGEMon 02-01-2018 CASE MANAGEM HNO ID: [id number] thor: Ivana (Rn) SHERRELL Wardervice: Care ManagementAuthor Type: Registered NurseType: Care Mgt Progress NoteFiled: 02/01/2018 2:02 PMNote Text:CARE MANAGEMENT PROGRESS NOTESERVICE DATE: 02/01/2018SERVICE TIME: 2:00 PM LOS: 2 daysFREEDOM OF CHOICE GIVEN:Yes 02/01/2018Financial Disclosure ProvidedThe patient and/or family has been given the Provider List: YesProvider List: Rehab FacilityMet with patient at bedside. Discussed possible discharge needs. Patientstates she does not want to go to rehab facility and prefers to go homewith home therapy. Patient states she has family that can assist her athome. Surgery is planned for tomorrow and will need therapy evaluationspost op. Referral sent to [facility] due to insurance. Willfollow.SIGNATURE: Ivana Ward RN PATIENT NAME: Sonia HemphillueDATE: February 01, 2018 : 2:00 PM PAGER/CONTACT #: [phone] Normal [facility] CBC and Differentialon 02-01 Abs Baso 0.03 k/uL Normal <0.11 [facility] Abs [place] 0.67 k/uL Normal <0.87 [facility] Abs Neut 7.46 k/uL Normal 1.45-7.50 [facility] Basophils/100 WBC Auto (Bld) 0.3 % Normal [facility] DTYPE Auto Diff Normal [facility] Eosinophils Auto #/vol (Bld) 0.30 10*3/uL Normal <0.46 [facility] Eosinophils/100 WBC Auto (Bld) 2.9 % Normal [facility] Erythrocyte distribution width Auto Ratio (RBC) 13.7 % Normal 11.5-15.0 [facility] Hematocrit Auto Volume Fraction (Bld) 36.7 % Normal 36.0-46.0 [facility] Hemoglobin mass conc (Bld) 11.6 g/dL Normal 11.5-15.5 [facility] Lymphocytes Auto #/vol (Bld) 1.75 10*3/uL Normal 1.00-4.00 [facility] Lymphocytes/100 WBC Auto (Bld) 17.1 % Normal [facility] MCH Auto Entitic mass (RBC) 26.4 pG Normal 26.0-34.0 [facility] MCHC Auto mass conc (RBC) 31.6 g/dL Normal 30.5-36.0 [facility] MCV Auto Entitic volume (RBC) 83.6 fL Normal 80.0-100.0 [facility] Monocytes/100 WBC Auto (Bld) 6.6 % Normal [facility] Neutrophils/100 WBC Auto (Bld) 73.1 % Normal [facility] Platelet mean volume Auto Entitic volume (Bld) 9.5 fL Normal 9.0-12.7 [facility] Platelets Auto #/vol (Bld) 223 10*3/uL Normal 150-400 [facility] RBC Auto #/vol (Bld) 4.39 10*6/uL Normal 3.90-5.20 Hi [facility] WBC Auto #/vol (Bld) 10.21 10*3/uL Normal 3.70-11.00 [facility] Confirm Blood Typeon 018 ABO/RH(D) Positive Normal [facility] NURSING PROGon 02-01-2018 Protein mass conc HNO ID: [id number] thor: Peg RubioRn) SHERRELL Meehanervice: (none)Author Type: Registered NurseType: Nursing Progress NoteFiled: 02/02/2018 12:26 AMNote Text: Nursing Progress NotePatient Name: Sonia KarimiMRN: [id number] Location: [facility]/LT-3T-995-2 Daily Note:1950 Pt up to the chair, up with assist x2. Assessment performed anddocumented at this time. Pt reports chronic numbness and tingling to herall extremities. Safety measures reviewed with Pt, call light within areach, will continue to monitor.0000 Prior assessment unchanged, Pt made NPO to procedure in AM. IV fluidsinfusing, Pt resting, will continue to monitor.This note was completed by: Peg Duran RN Normal [facility] Protein mass conc HNO ID: [id number] thor: Viak (Rn) Torey RNService: (none)Author Type: Registered NurseType: Nursing Progress NoteFiled: 02/01/2018 4:59 PMNote Text: Nursing Progress NotePatient Name: Sonia KarimiMRN: [id number] Location: [facility]/LI-6G-700-2 Daily Note:0745 Pt alert and oriented X 3. States pain to posterior neck.Dr. Hayes and JADE Ashley in. Deferred to attending. Pt states N/T to BUEand BLE. NPO for OR. Assessment as charted.This note was completed by: Vika Lema, [id number] Pt seen by Adry Morin CNP. Orders received.1043 Medicated with 1000 mg tylenol for posterior neck pain.1643 Medicated with 1000 mg Tylenol. No change in assessment. [facility] Protein mass conc HNO ID: [id number] thor: Gila (Rn) Lisa, RNService: NursingAuthor Type: Registered NurseType: Nursing Progress NoteFiled: 02/01/2018 3:08 AMNote Text: Nursing Progress NotePatient Name: Sonia KarimiN: [id number] Location: [place] [address] [address] 2345-Bedside report received. Bipap on and [id number] made NPO. IVF started. Pt AANDOX3, denies chest pain, SOB, ordizziness. Pt c/o numbness/tingling to BUE. Hand grasps, pedal push/pullsare strong and equal. Call light in reach, bed alarm onThis note was completed by: Gila Gonzalez RN [facility] PROGRESSon 02-01-2018 Protein mass conc HNO ID: [id number] thor: Francisco Taylorervice: General Internal MedicineAuthor Type: PhysicianType: Progress NotesFiled: 02/01/2018 6:02 PMNote Text:PROGRESS NOTE - INTERNAL MEDICINEPATIENT NAME: Sonia KarimiMRN: [id number] PHYSICIAN: Francisco TaylorUBJECTIVEINTERVAL HISTORY OF PRESENT ILLNESS: Patient sitting up in bed wanting ashower and something else for neck pain. Currently just has norco atnight. Also reports not having a bowel movement since being here but ispassing gas.OBJECTIVEPHYSICAL EXAM:BP 131/70 Pulse 64 Temp 36.9 ?C (98.4 ?F) (Oral) Resp 16 Ht167.6 cm (5' 6) Wt 125.9 kg (277 lb 9 oz) SpO2 99% BMI 44.80kg/m?Intake/Output Summary (Last 24 hours) at 02/01/18 0819Last data filed at 02/01/18 0500 Gross per 24 hourIntake 1310 mlOutput 250 mlNet 1060 mlGENERAL: Alert, no acute distress, cooperative, obeseSKIN: Skin color, texture, turgor normal. No rashes or lesions.NECK: No jugulovenous distention, Supple, decreased ROMLUNGS: Lungs clear to auscultation, Good diaphragmatic excursionCARDIAC: Normal S1 and S2; no rubs, murmurs, or gallopsABDOMEN: Abdomen soft, non-tender, BS normal p2EHMYYFDVDGB: No LE edemaNEURO: AANDOx3, Non-focal sensation intact B?L upper and lower extremities,5/5 strength upper and lower extremitiesPULSES: 2+ radial, 2+ carotidDATA:Diagnostic tests reviewed for today's visit:Most recent labsMost recent imagingCBC, Coags, BMP, Mg, PhosRecent Labs 01/31/1819WBC 10.21 -- 14.93*HB 11.6 -- 12.2HCT 36.7 -- 37.1PLT 223 -- 259APTT -- 25.4 --NA 138 -- 141K 4.2 -- 3.5*CHLOR 99 -- 101CO2 27 -- 25BUN 20 -- 26*CREAT 0.81 -- 0.92GLUC 113* -- 164*CA 9.9 -- 9.6Liver Function, Amylase, AND LipaseCardiac EnzymesRecent Labs 3CK 102ASSESSMENT AND PLANCervical myopathy [G72.9]- MRI spine: cord compression- Neurosurgery consulted- gabapentin, norcoBladder fullness- check UA for UTI- UA positive for WBC, checking urine cultureHTN- c/w amlodipine, maxzideHLD: statinThyroid mass- noted on MRI- thyroid US: benign nodulesHypokalemia- replete, monitorOSA- CPAPObesityDVT prophylaxis- SCDsSurgery was planned today but moved to tomorrowConstipation: added colaceAdded tylenol and lidocaine patch for painSIGNATURE: Mandie Aguilar APRN.CNPDATE: February 01, 2018TIME: 8:19 AMCONTACT #: [phone] have reviewed the progress note obtained and documented by the CertifiedNurse Practitioner, and I personally participated in the rosario components. Terrell discussed the case and management of the patient's care. Thefollowing comments revise or confirm relevant rosario components of theCertified Nurse Practitioner's note.Waiting on being scheduled for Collins Dow MD [facility] Protein mass conc HNO ID: [id number] Author: Latrice Hayes Service: Neurosurgery Author Type: Physician Type: Progress Notes Filed: 02/01/2018 8:04 AM Note Text: AVSS neurologically no changes. Pre op medical clearance Surgery AM 02/02/18 NPO P MN [facility] THERAPY NTon 02-01-2018 THERAPY NT HNO ID: [id number] thor: Carlos (Kiran) Nateervice: Physical TherapyAuthor Type: Physical TherapistType: Therapy (PT/OT/Speech/Resp)Filed: 02/01/2018 6:15 AMNote Text:PHYSICAL THERAPY MISSED VISITSERVICE DATE: 02/01/2018SERVICE TIME: 0613 to 0613ROOM: [id number] Treatment. Patient not seen due to Surgery. Pt on for surgerythis date. WIll hold follow up visit and plan for re-evaluation on02/02/18 post surgical intervention.SIGNATURE: Carlos Dudley PT PATIENT NAME: Sonia Lozoya DerueDATE: February 01, 2018 : 6:14 AM [facility] Urine Cultureon 02-01-2018 Bacteria identified Cx Nom (U) Sp. Request/Comment: - Specimen received in preservative Culture Result - <10,000 CFU/ml Normal urogenital yanick [facility] Comment on above: Performed By: #### U RCUL ####[facility] [address] [place], [place] [phone] APTTon 01-31-2018 aPTT Coag time (Bld) 25.4 s Normal 23.0-32.4 [facility] Comment on above: Result Comment: Unfr actionated Heparin Therapeutic Ranges:Standard Heparin Nomogram: 53 to 78 seconds (anti-Xa level of 0.3 to 0.7 U/ml)Low Dose/ACS Nomogram: 49 to 67 seconds (anti-Xa level of 0.2 to 0.5 U/ml)Stroke Treatment Nomogram: 49 to 67 seconds (anti-Xa level of 0.2 to 0.5 U/ml)Note: The APTT therapeutic range has been determined for the current lot of laboratory APTT reagent in use throughout the [facility]. CASE MANAGEMon 01-31-2018 CASE MANAGEM HNO ID: [id number] thor: Richard Amaroervice: Case ManagementAuthor Type: PhysicianType: Care Mgt Progress NoteFiled: 01/31/2018 11:25 AMNote Text:Case Management: Chart reviewed. 62 year old female who presented withconcern for cervical myopathy. Failed Outpatient management Falls.Needs a cane for routine ambulation but difficulties with use secondary toarm numbness. Morbid obesity with a BMI of 44.80 and a weight of 277.MRI yesterday has an incidental finding of a large thyroid mass measuring5.8 cm.Agree with Inpatient Status.Richard Huddleston MD Utilization Review Committee [facility] CASE MGT INIT [facility] 2017 CASE MGT INIT [facility] HNO ID: [id number] thor: Ivana (Rn) Ed, SHERRELLervice: Care ManagementAuthor Type: Registered NurseType: Care Mgt Initial AssessmentFiled: 01/31/2018 11:47 AMNote Text:CARE MANAGEMENT: ASSESSMENT AND DISCHARGE PLANSERVICE DATE: 01/31/2018SERVICE TIME: 11:43 AMPRIMARY CARE PHYSICIAN:Neo Gar, ELAhone: [phone] STATUS: InpatientNeeds Prior to Discharge: OT/PT EvaluationMEDICAL:Patient/ Teen Counselor Stated Goals:To have reduction in symptomsTo improve my functional statusTo return home to life as it wasHealth Insurance: AULTCAREHealth Issues Impacting Discharge Plan: Newly diagnosed cervical cordcompressionLast Admission Date: noneIs this Within the Past 30 days? NoAdvance Directive:Current Advance Directive: Health Care Power of Chief Operating Officer;Daniel Anderson Chart: Jesús Death Clearance Coordinator Attempted to Assist with AD Completion: YesAction: Patient UnwillingHealth Literacy:1. How often do you need to have someone help you when you readinstructions, pamphlets, or other written material from your doctor orpharmacy? Never - 12. How confident are you filling out medical forms by yourself? Extremely- 1If Patient scores > 3 on either question, the following interventions wereput into place:Patient did not score > 3FUNCTIONAL AND COGNITIVE/BEHAVIORALPRIOR TO ADMISSION:Baseline Mental Status: Alert AND Oriented, Person, Place , Time andSituationFunctional Status: IndependentDoes Patient Currently Receive Any Community Services or Home Care? NoneEquipment Prior to Admission: Cane - StraightWalkerHas the Patient Been in a Group Home Facility in the Past 30 days? NoSOCIAL:Living Arrangement: HomeLives With: nieceFinancial Resources: N/APrimary Contact: Extended Emergency Contact InformationPrimary Emergency Contact: Magali Alfaro Yakm Zrhuyw Lkrlcwgv: SisterSupportive: YesOther Important Patient Contacts: NoneCaregiver Assessment:Caregiver is ready, willing and able to meet the patient's needs asrecommended by the inter-professional team? to be determinedPatient's transition needs and plan for meeting these needs: awaitphysician treatment plan and therapy evaluationsDoes the patient have an acute stroke diagnosis, or has the patient had astroke during this admission? NoMedication Adherence:I am convinced of the importance of my prescription medication: Agreecompletely - 0I worry that my prescription medication will do more harm than good to meDisagree completely - 0I feel financially burdened by my unv-pd-wlwxis expenses for myprescription medication: Disagree completely - 0Patient is categorized as low risk < 2Are you interested in bedside delivery of your medications? NoFood Concerns:In the Last Month, Have You had Trouble Getting Food? No trouble gettingfoodDuring the Last Month, Have You Worried Whether Your Food Would Run OutBefore You Had Enough Money to Buy More? NoIs the Patient Psychosocially Complex? NoASSESSMENT AND PLAN:Medical Needs: 2 or more chronic diseases and Fall risk or frequent fallsPsychosocial Needs: NoneFREEDOM OF CHOICE EXPLAINED:N/A at this timePOTENTIAL TRANSITION PLANSHomeHome OT/PTRehab FacilityMet with patient at bedside. She has noticed increase weakness in herhands and had been on prednisone. She saw no improvement and physiciansent to [place] for further testing. Await treatment plan and therapyevaluations. Will follow.SIGNATURE: Ivana Ward RN PATIENT NAME: Sonia HemphillueDATE: January 31, 2018 : 11:43 AM PAGER/CONTACT #: [phone] [facility] CONSULTon 01-31-2018 CONSULT HNO ID: [id number] thor: Latrice HayesSerobduliae: NeurosurgeryAuthor Type: PhysicianType: ConsultsFiled: 01/31/2018 1:06 PMNote Text:CONSULT: Neurosurgery SERVICESERVICE DATE: 01/31/2018SERVICE TIME: 0745REASON FOR CONSULT: cervical myopathyREQUESTING PHYSICIAN: [facility] PHYSICIAN: Neo Gar, JAZZYubjectiveMs. Suresh is a 62 year old female who presents for cervical myopathy.Patient states that symptoms started about 3 weeks ago with no antecedenttrauma or activity. Since then she has had some falls. Pain is in theneck and will radiate at times down bilateral UEs to the fingers. Shecomplains of numbness in all extremities UE>LEs. No change in bowel andbladder. She is right handed and has difficulty with fine motor tasks.She was using a cane but is now having difficulty with that due to thedifficulty with fine motor tasks.FUNCTIONAL STATUS: Partially dependentPAST MEDICAL HISTORYDiagnosis Date- Cervical polyp- COPD (chronic obstructive pulmonary disease) (HCC)- Hyperlipidemia- Hypertension- Minor depressionPAST SURGICAL HISTORYProcedure Laterality Date- REMOVAL ADENOIDS,PRIMARY,<12 Y/O Adenoidectomy- REMOVAL OF TONSILS,<12 Y/O TonsillectomyFAMILY HISTORYProblem Relation Age of Onset- Cancer Father leukemia- Cancer Mother skin cancer- Cancer Paternal Grandfather stomach cancer- Cancer Paternal Grandmother colon to liver- Cancer Sister cancer in situ - breast- Diabetes Father- Diabetes Sister- Heart Mother tachycardiaSocial HistorySubstance Use Topics- Smoking status: Former Smoker- Smokeless tobacco: Never Used Comment: Quit smokig 38 years ago- Alcohol use NoPrescriptions Prior to Admission:amLODIPine (NORVASC) 5 mg tablet Take 1 tablet by mouth once daily. Disp:90 tablet Rfl: 3 Takingatorvastatin (LIPITOR) 10 mg tablet Take 1 tablet by mouth once daily.Disp: 90 tablet Rfl: 3 Takingcholecalciferol (VITAMIN D-3) 2,000 unit tablet Take 2,000 Units by mouthonce daily. Disp: Rfl: TakingcloNIDine HCl (CATAPRES) 0.1 mg tablet Take 1 tablet by mouth daily atbedtime. Disp: 90 tablet Rfl: 3 TakingCOMPOUNDED PRESCRIPTION BIPAP 1 liter bleed in 12/5 cm. RR 14Replacementmachine with heated humidity. CPAP mask and supplies.Use nightly. Disp: 1Each Rfl: 0 Takingdiclofenac XR (VOLTAREN-XR) 100 mg Tb24 TAKE 1 TABLET DAILY WITH FOODDisp: 90 tablet Rfl: 3 Takinggabapentin (NEURONTIN) 100 mg capsule TAKE 2 CAPSULES BY MOUTH TWICE A DAYDisp: 120 capsule Rfl: 3 RgpcmtIXBISSNO-SEH-YHTSHQY IT-VIT D3 ORAL Take 3 tablets by mouth once daily.Disp: Rfl: TakingHYDROcodone-acetamin ophen (NORCO) 5-325 mg per tablet Take 1 tablet bymouth at bedtime as needed for up to 30 days.Earliest Fill Date: 08/29/17Disp: 30 tablet Rfl: 0 TakingHYDROcodone-acetamin ophen (NORCO) 5-325 mg per tablet Take 1 tablet bymouth at bedtime as needed for up to 30 days. Disp: 30 tablet Rfl: 0TakingMULTIVIT WITH IRON-MINERALS (MULTIVITAMIN AND MINERALS ORAL) Take 1 tabletby mouth once daily. Disp: Rfl: TakingpredniSONE (DELTASONE) 10 mg tablet Please take 3 pills twice daily for 3days, then 2 pills twice daily for 3 days, then 1 pill twice daily for 3days, then 1 pill daily till gone. (Patient not taking: Reported on01/30/2018) Disp: 40 tablet Rfl: 0 Not Takingsertraline (ZOLOFT) 100 mg tablet Take 1 tablet by mouth once daily. Disp:90 tablet Rfl: 3 Takingtriamterene-hydrochl orothiazide 37.5-25 mg per capsule Take 1 capsule bymouth once daily. Disp: 90 capsule Rfl: 3 TakingCurrent hospital medications:amLODIPine 5 mg tab(s) (NORVASC) 5 mg ORAL DAILYcloNIDine HCl 0.1 mg tab(s) (CATAPRES) 0.1 mg ORAL AT BEDTIMEdiclofenac (EC) 50 mg tab(s) (VOLTAREN) 50 mg ORAL BIDgabapentin 200 mg cap(s) (NEURONTIN) 200 mg ORAL BIDHYDROcodone 5 mg - acetaminophen 325 mg tablet (NORCO) 1 tablet ORAL HSPRNpotassium chloride ER 20 mEq tab(s) (K-DUR, KLOR-CON) 20 mEq ORAL ONCEsertraline 100 mg tab(s) (ZOLOFT) 100 mg ORAL DAILYtriamterene-hydrochlo rothiazide 37.5-25 mg 1 tablet (MAXZIDE-25) 1 tabletORAL DAILYAllergies As of Date: 01/30/2018Alljosen Noted ReactionATIVAN [LORAZEPAM] 03/26/2012 HivesNEOSPORIN [BENZALKONIUM CHLORIDE] 03/26/2012 RashFully Assessed 01/30/2018COMPLETE REVIEW OF SYSTEMS:PAIN ASSESSMENT: Negative for pain, history of chronic pain, or currenttreatment for a chronic pain condition.GENERAL: No weight loss, malaise or feversHEENT: Negative for frequent or significant headaches, No changes inhearing or vision, no nose bleeds or other nasal problemsNECK: Negative for lumps, goiter, pain and significant neck swellingRESPIRATORY: Negative for cough, hemoptysis, wheezing, COPD, dyspnea orshortness of breathCARDIOVASCULAR: Negative for chest pain, leg swelling, hypertension, CHFor palpitationsGI: No nausea, vomiting, or diarrheaGU: No history of dysuria, frequency or incontinenceMUSCULOSKELETA L: see HPISKIN: Negative for lesions, rash, and itchingPSYCH: Negative for sleep disturbance, mood disorder and recentpsychosocial stressorsHEMATOLOGY/LYMPHO LOGY: Negative for prolonged bleeding, bruising easily orswollen nodesENDOCRINE: Negative for cold or heat intolerance, polyuria, polydipsia andgoiterNEURO: No history of headaches, syncope, paralysis, seizures or tremorsObjectivePHYSICAL EXAM:Physical Exam Performed:GENERAL: Alert, no distress, cooperativeNEURO: motor: 5/5 BLEs, 5/5 BUEs with the exception of right biceps 4+/5,left biceps 4-4+/5 and left intrinsics 3/5Sensation: intact to LT in BUE/BLEsPositive ruiz's bilateral, sustained Clonus bilaterally.BP 116/60 Pulse 79 Temp (Src) 98.5 (Oral) Resp 18 Ht 5' 6 (1.68m) Wt 277 lb 9 oz (125.9kg) SpO2 94% BMI 44.82 kg/(m2).DATA:Diagnostic tests reviewed for today's visit:Most recent imaging: radiologist report: Cervical spondylosis as describedworst at C3-C4 with mild cordcompression. ?Abnormal cord signal at this level which may indicate edemaor myelomalacia.Impression/Re commendationsActive Problems: Cervical myopathy POA: YesNo acute neurosurgery interventionFurther pending Dr. Kim's review.62 yo female with progressive cervical myelopathy over last 2 weeks,unable to use arms/hands.Deltoid 2/5, left biceps tricep 2/5, right biceps triceps 3/5, handintrinsics 2/5.MRI cervical- C4-5 autofusion, C3-4 instability, spinal cord compression,myelomalacia.W ill rec ACDF C3-4.I discussed risks including bleeding, infection, CSF leak, paralyzes,oesophagus injury, carotid a injury, trouble swallowing, permanent feedingtube, stroke, OR, DVT.Patient will require pre op clearance.RAMAN ClayIGNATURE: JADE Hercules PATIENT NAME: Sonia HemphillueDATE: January 31, 2018 : 8:06 AM PAGER: Normal [facility] EKG (AK,AV,EU,FV,HL,PATRICK,MM,SP )on 01-31-2018 Protein mass conc NAME : JAMES KARIMI D : [id number] : 1955 Gender : FemaleRace : CaucasianORD : [id number] Procedure Date : Jan 31 2018 18:50:24Edit Date : Feb 01 2018 09:41:50 Diagnosis:SINUS RHYTHM WITH MARKED SINUS ARRYTHMIAOTHERWISE NORMAL ECGWHEN COMPARED WITH ECG OF 16-FEB-2004 10:32,NO SIGNIFICANT CHANGE WAS FOUNDConfirmed by NERISSA CARMICHAEL M.D. ([id number]) on 02/01/2018 9:41:48 AM Ventricular Rate : 69 BPMAtrial Rate : 69 BPMP-R Interval : 152 msQRS Duration : 80 msQ-T Interval : 390 msQTC Calculation(Bezet) : 417 msP Shelby : 74 degreesR Shelby : 42 degreesT Shelby : 36 degrees Test Reason : Pre OP Location : 124 : 4B L 466 Overread By : JANY William,AMIREdited By : JANY William,AMIRReferred By : JESI DOWcquired by : VENU HILLIARD [facility] HISTORY PHYSICALon HISTORY PHYSICAL HNO ID: [id number] thor: Francisco Taylorervice: General Internal MedicineAuthor Type: PhysicianType: HANDPFiled: 01/31/2018 5:50 PMNote Text:HISTORY AND PHYSICAL EXAMINATIONPATIENT NAME: Sonia KarimiMRN: [id number] DATE: 01/31/2018SERVICE TIME: 8:34 AMPRIPRATTVILLE [facility] PHYSICIAN: Neo Gar, JAZZYUBJECTIVECHIMADAY COMPLAINT: Neck painHPI: This is a 62 year old female who presents with cervical myopathy.Patient reports neck pain started about 3 weeks ago. She went to see herPCP who gave her prednisone for 2 weeks but there was no improvement.Continued to having numbness in bilateral hands and in both legs at times.She went back to follow up with her doctor who sent her to the hospitalfor further evaluation. Reports no trauma but has had some falls recently.Uses a cane usually at home but lately has been having trouble due tonumbness in her arms.Denies any bowel or bladder changes but does reporthaving bladder fullness.PAST MEDICAL HISTORY:PAST MEDICAL HISTORYDiagnosis Date- Cervical polyp- COPD (chronic obstructive pulmonary disease) (HCC)- Hyperlipidemia- Hypertension- Minor depressionPAST SURGICAL HISTORY:PAST SURGICAL HISTORYProcedure Laterality Date- REMOVAL ADENOIDS,PRIMARY,<12 Y/O Adenoidectomy- REMOVAL OF TONSILS,<12 Y/O TonsillectomyFAMILY HISTORY:FAMILY HISTORYProblem Relation Age of Onset- Cancer Father leukemia- Cancer Mother skin cancer- Cancer Paternal Grandfather stomach cancer- Cancer Paternal Grandmother colon to liver- Cancer Sister cancer in situ - breast- Diabetes Father- Diabetes Sister- Heart Mother tachycardiaSOCIAL HISTORY:Social HistorySubstance Use Topics- Smoking status: Former Smoker- Smokeless tobacco: Never Used Comment: Quit smokig 38 years ago- Alcohol use NoMEDICATIONS: Prior to Admission MedicationsPrescriptions Prior to Admission:amLODIPine (NORVASC) 5 mg tablet Take 1 tablet by mouth once daily. Disp:90 tablet Rfl: 3 Takingatorvastatin (LIPITOR) 10 mg tablet Take 1 tablet by mouth once daily.Disp: 90 tablet Rfl: 3 Takingcholecalciferol (VITAMIN D-3) 2,000 unit tablet Take 2,000 Units by mouthonce daily. Disp: Rfl: TakingcloNIDine HCl (CATAPRES) 0.1 mg tablet Take 1 tablet by mouth daily atbedtime. Disp: 90 tablet Rfl: 3 TakingCOMPOUNDED PRESCRIPTION BIPAP 1 liter bleed in 12/5 cm. RR 14Replacementmachine with heated humidity. CPAP mask and supplies.Use nightly. Disp: 1Each Rfl: 0 Takingdiclofenac XR (VOLTAREN-XR) 100 mg Tb24 TAKE 1 TABLET DAILY WITH FOODDisp: 90 tablet Rfl: 3 Takinggabapentin (NEURONTIN) 100 mg capsule TAKE 2 CAPSULES BY MOUTH TWICE A DAYDisp: 120 capsule Rfl: 3 PruxgdVGVKJVON-RDZ-RHODMOR IT-VIT D3 ORAL Take 3 tablets by mouth once daily.Disp: Rfl: TakingHYDROcodone-acetamin ophen (NORCO) 5-325 mg per tablet Take 1 tablet bymouth at bedtime as needed for up to 30 days.Earliest Fill Date: 08/29/17Disp: 30 tablet Rfl: 0 TakingHYDROcodone-acetamin ophen (NORCO) 5-325 mg per tablet Take 1 tablet bymouth at bedtime as needed for up to 30 days. Disp: 30 tablet Rfl: 0TakingMULTIVIT WITH IRON-MINERALS (MULTIVITAMIN AND MINERALS ORAL) Take 1 tabletby mouth once daily. Disp: Rfl: TakingpredniSONE (DELTASONE) 10 mg tablet Please take 3 pills twice daily for 3days, then 2 pills twice daily for 3 days, then 1 pill twice daily for 3days, then 1 pill daily till gone. (Patient not taking: Reported on01/30/2018) Disp: 40 tablet Rfl: 0 Not Takingsertraline (ZOLOFT) 100 mg tablet Take 1 tablet by mouth once daily. Disp:90 tablet Rfl: 3 Takingtriamterene-hydrochl orothiazide 37.5-25 mg per capsule Take 1 capsule bymouth once daily. Disp: 90 capsule Rfl: 3 TakingCURRENT ALLERGIES:ALLERGIESAllerge n Reactions- Ativan [Lorazepam] Hives- Neosporin [Benzalko* RashCOMPLETE REVIEW OF SYSTEMS:GENERAL: No weight loss, malaise or fevers/chillsHEENT: No recent colds/congestionRESPIRATOR Y: Negative for cough, wheezing or shortness of breathCARDIOVASCULAR: Negative for chest pain, palpitations, or leg swellingGI: No nausea, vomiting, or diarrhea. No abdominal pain or constipationGU: No dysuria, frequency or incontinenceMUSCULOSKELETA L: Negative for joint pain or swelling, back pain or musclepainSKIN: Negative for lesions, rash, and itchingNEURO: No headaches, dizziness, + numbness or tinglingAll other reviewed and negative other than HPI.OBJECTIVEPHYSICAL EXAM:Patient Vitals for the past 24 hrs: BP Temp Temp src Pulse Resp SpO2 Height Zbjndv49/19/18 0800 (!) 108/48 36.6 ?C (97.9 ?F) Oral 63 18 95 % - -01/31/18 0013 116/60 36.9 ?C (98.5 ?F) Oral 79 18 94 % - -01/30/182001 107/50 36.5 ?C (97.7 ?F) Oral 79 18 97 % - -01/30/18 183 150/70 36.6 ?C (97.8 ?F) Oral 90 20 98 % - -01/30/181831 - - - - - - 167.6 cm (5' 6) 125.9 kg (277 lb 9 oz)Body mass index is 44.8 kg/m?.BP (!) 108/48 Pulse 63 Temp 36.6 ?C (97.9 ?F) (Oral) Resp 18 Ht 167.6 cm (5' 6) Wt 125.9 kg (277 lb 9 oz) SpO2 95% BMI 44.80kg/m?GENERAL: Alert, no acute distress, cooperativeSKIN: Skin color, texture, turgor normal. No rashes or lesions.NECK: No jugulovenous distention, Supple, decreased ROMLUNGS: Lungs clear to auscultation, Good diaphragmatic excursionCARDIAC: Normal S1 and S2; no rubs, murmurs, or gallopsABDOMEN: Abdomen soft, non-tender, BS normal s4JYETERIJRNA: No LE edemaNEURO: AANDOx3, Non-focal sensation intact B?L upper and lower extremities,5/5 strength upper and lower extremitiesPULSES: 2+ radial, 2+ carotidDATA:Diagnostic tests reviewed for today's visit:Most recent labsMost recent imagingCBC, Coags, BMP, Mg, PhosRecent Labs 3WBC 14.93*HB 12.2HCT 37.1PLT 259NA 141K 3.5*CHLOR 101CO2 25BUN 26*CREAT 0.92GLUC 164*CA 9.6Liver Function, Amylase, AND LipaseCardiac EnzymesRecent Labs 3CK 102ASSESSMENT AND PLANCervical myopathy [G72.9]- MRI spine: cord compression- Neurosurgery consulted- gabapentin, norcoBladder fullness- check UA for UTIHTN- c/w amlodipine, maxzideHLD: statinThyroid mass- noted on MRI- thyroid USHypokalemia- replete, monitorOSA- CPAPObesityDVT prophylaxis- SCDsSIGNATURE: Mandie Aguilar APRN.CNPDATE: January 31, 2018TIME: 8:34 AMPatient seen, examined and details of HAND P reviewed. I personally haveexamined the patient and reviewed the Assessment and Plan with our teamas detailed above. Changes made to Plan of Care as recorded.62 yr w rapidly worsening UE weakness, neck pain, admitted after out-pt wPMANDR, raising concern for urgent Neurosurgeon eval. No h/o trauma. Ptreports UE numbness, which initially got better w a Pred burst. Now hardfor her to raise her arms. Reports no LE weakness.M Obese uses CPAP for OSAUE 3/5 ericka, DTRs suppresed.[id number] abdoWBC 14.9, but was on PredUrgent MRI Cx SP was done notedNSurg eval on going this amCPAP form Erickson Dow M.D. [facility] NURSING PROGon 01-31-2018 Protein mass conc HNO ID: [id number] thor: Karime (Rn) Katrin Montielice: (none)Author Type: Registered NurseType: Nursing Progress NoteFiled: 01/31/2018 9:06 PMNote Text: Nursing Progress NotePatient Name: Sonia KarimiN: [id number] Location: [place] [address]/[id number] Daily Note:1924 Assumed care, report from outgoing RN at the bedside. Call lightwithin reach, bed alarm activated.5 VS and assessment as charted. AANDOx3, denies chest pain, SO, headache,dizziness. Reports n/t to BUE and BLE. Pain board reviewed/updated,verbalize s understanding. Call light and possessions within reach. Willcontinue to monitor.This note was completed by: Karime Montiel RN [facility] Protein mass conc HNO ID: [id number] thor: Ainsley (Rn) Katrin Mixice: (none)Author Type: Registered NurseType: Nursing Progress NoteFiled: 01/31/2018 1:52 PMNote Text: Nursing Progress NotePatient Name: Sonia KarimiN: [id number] Location: [facility]466/[id number] Daily Note:1115- Received report at this time, denies needs, will monitor.1135- Gave ordered atorvastatin, patient alert and oriented, numbness andtingling in bilateral upper extremities. Stating neck pain, patient [id number] ibuprofen 3x daily, will page Dr Dow to notify and receive painmedication orders.1200- Paged Dr Dow at this time: Sonia Karimi- 466-2 Patient havingneck pain, patient takes 600 ibuprofen 3x day. PT requesting. Thanks,Ainsley [phone]- Paged Dr Dow to make aware of pharmacists concerns for orderedibuprofen as well as Voltaren: Sonia Karimi- 466-2 Pharmacy will notverify ibuprofen because patient takes voltaren 50mg twice daily for herknees. Both are NSAIDS. Patient is okay with taking Tylenol instead.Thanks, Ainsley [phone]- Paged Dr Dow at this time per patient request: Sonia Karimi466-2 Patient going down to ultrasound of thyroid, patient does not haveany idea why she needs an ultrasound of her thyroid. Able to come talk topatient about MRI results. Thank you, Ainsley [id number] note was completed by: Ainsley Mix RN [facility] Protein mass conc HNO ID: [id number] thor: Lola (Rn) SHERRELL Vaughanervice: (none)Author Type: Registered NurseType: Nursing Progress NoteFiled: 01/31/2018 7:59 AMNote Text: Nursing Progress NotePatient Name: Sonia KarimiMRN: [id number] Location: [facility]/[id number] Daily Note: Assumed care of pt, AANDOx3, c/o numbness/tingling to bilateralarms. Assessment as chartedThis note was completed by: Lola Vaughan RN [facility] Protein mass conc HNO ID: [id number] thor: Neo RubioRn) SHERRELL Mixonervice: NursingAuthor Type: Registered NurseType: Nursing Progress NoteFiled: 01/30/2018 10:27 PMNote Text: Nursing Progress NotePatient Name: Sonia KarimiMRN: [id number] Location: [place] [address]/[address] Daily Note:1900: Assumed care of this pt, report received from RN. AANDOx3, I/S atbedside, SCDs on bilaterally. Pain board reviewed with pt. Denies furtherneeds at this time, call light in place, bed in lowest position, willcontinue to monitor.1999: Pt resting quietly in bed. Vitals and assessment complete, seeflowsheets. Pt tolerated well. Medication administered per eMAR. Deniesfurther needs at this time, safety maintained.2009: Pt left unit in stable condition for [id number]: Spoke with Dr. Dow regarding results of MRI, will make Dr. Kimaware as well.2119: Dr Kim made aware of MRI [id number]: Pt returned to unit, bed alarm on, call chan within [id number]: Pt resting quietly in bed, eyes closed. Respirations even andunlabored. Call light within reach, will continue to monitor.0400: Pt resting quietly in bed, eyes closed. Respirations even andunlabored. Call light within reach, will continue to monitor.This note was completed by: Neo Mixon RN [facility] Protein mass conc HNO ID: [id number] thor: SHERRELL Friend Rnervice: NursingAuthor Type: Registered NurseType: Nursing Progress NoteFiled: 01/30/2018 10:17 PMNote Text: Nursing Progress NotePatient Name: Sonia KarimiMRN: [id number] Location: [facility]466/[id number] Daily Note:2218 New IV placed on first attempt following steriletechnique, tolerated well, PRESTON Higgins notified.This note was completed by: Danyelle Choi RN [facility] THERAPY NTon 01-31-2018 THERAPY NT HNO ID: [id number] thor: Tabby (Pt) KalalService: Physical TherapyAuthor Type: Physical TherapistType: Therapy (PT/OT/Speech/Resp)Filed: 01/31/2018 3:19 PMNote Text:Physical Therapy EvaluationSERVICE DATE: 01/31/2018SERVICE TIME: 1305 to 1335ROOM: -4B-466-2 ( ULTRASOUND)Recommended Discharge Disposition: Acute RehabRecommended Discharge Disposition Comments: Rec AR to maximize functionalmobility and safetyJustification For Post Acute Needs: Anticipate that patient will requiredaily (5x/wk) skilled therapy in a post-acute facility setting at the timeof acute hospital discharge;Anticipate patient will tolerate 3 hours ofdaily therapy at the time of admission to post-acute settingRecommended Discharge Equipment: No equipment needs anticipatedPT Recommendations to Nursing: Ambulate with device;Transfer to/fromchair;OOB for Meals;With assist of 2 peopleDevice: Wheeled WalkerPT 6 Clicks Score: 19Precautions/Activity Restrictions: Fall RiskASSESSMENT :Pt presents with impaired functional mobility, ADL performance, strengthand endurance impacting ability to function without assist from staff.Pt's needs exceeds resources available at home to safely return home atthis time secondary to balance and physiological response. Requiresskilled therapy to address mobility and self care limitations as well asprogression of activities within safe limits to prevent falls. Pt is alow complexity evaluation for these reasons.Patient Disposition at Start of Session: Supine in Bed;Call Chan in ReachPatient Disposition at End of Session: OOB in Chair;Call Chan in Reach (RNstates no need for chair alarm )Tolerated Full SessionPhysical Therapy Problem List: Balance Impaired;Functional MobilityImpairment;Decreas ed Strength;Decreased Range Of Motion;Decreased ActivityTolerance;Impaired Self Care;Safety Deficits;PainPatient /Caregiver Goals: Go HomeGoals for Plan of Care:Able to perform HEP with: Verbal Cues OnlyTransfer supine to/from sit with: Modified IndependentTransfer sit to/from stand with: Modified IndependentAmbulate with: Modified IndependentDistance: 50Device: Wheeled WalkerAmbulate up and down steps with: Contact Guard AssistanceNumber of steps: 3Device: RailTransfer: All functional transfers with mod IRehab Potential: GoodPLAN:Treatment Frequency (times per week): 7Treatment Duration (number): (as able LOS) Current admissionTreatment Interventions: Education;Self Care / Home Management;EnergyConservat ion Training;Joint Mobility;Strengthening;Fun ctional MobilityTraining;Balance Training;Neuromuscular Re-educationPlan of Care developed with: PatientTREATMENT INTERVENTIONS:Therapy Diagnosis: Reduced mobility-other;Decreased activities of dailyliving (ADL);Muscle Weakness (generalized)Interventions Provided: Evaluation;Therapeutic Activity (59321);GaitTraining (95426)$ Evaluation-Low (82518) Billed Units: 1 unitTherapeutic Activity (51794) Treatment Minutes: 131 unitSkilled Intervention(s): Instructed patient in supine to sit pushing withupper extremities to sit upInstruction in sit to stand technique with proper hand placement and bodypositioning at edge of bed/chairInstruction in stand to sit technique with lower extremities touchingchair/bed and reaching back for surfaceInstruction in sit to and from stand technique with proper hand placementand body positioning at edge of bed/chairGait Training (31993) Treatment Minutes: 101 unitSkilled Intervention(s): Instruction in sit to stand technique with properhand placement and body positioning at edge of bed/chair, Instruction instand to sit technique with LE's touching chair/bed and reaching back forsurface, Instruction in sequencing, gait pattern, Instruction incorrection of gait deviations and Instruction in use of equipment, cuesfor sequence and patternPt educated on role of therapy, POC, importance of OOB with assist. Pt inbed on arrival. Supine to sit with supervision. Sitting EOB with no c/odizziness. Pt with 5/5 strength in LEs. Sit to stand with min A. Verbalcues for hand placement and safety with transfer. Pt ambulated 10 x 2 withwheeled walker and min A. Pt with decreased speed/step length and forwardflexed posture. Pt leans heavily on walker and has bilateral kneebuckling. Pt with genu varum bilaterally. Pt transferred on/off commodewith Min A. Verbal cues for hand placement and safety with transfer. Pt inchair post session.Total Timed Code Treatment Minutes: 23Total Treatment Time (minutes): 30FUNCTIONAL G CODE:PT 6 Clicks Score: 19 (01/31/18 1305)Mobility: Walking and Moving Around Current Status (G8978): CK ()Mobility: Walking and Moving Around Goal Status (G8979): CJ ()Based on clinical assessment and the score on the 6 Clicks FunctionalAssessment Tool, the G code and corresponding severity modifiers aredocumented above.SUBJECTIVE:Current Hospital Course: Chart reviewed; CHIEF COMPLAINT: Neck painHPI: This is a 62 year old female who presents with cervical myopathy.Patient reports neck pain started about 3 weeks ago. She went to see herPCP who gave her prednisone for 2 weeks but there was no improvement.Continued to having numbness in bilateral hands and in both legs at times.She went back to follow up with her doctor who sent her to the hospitalfor further evaluation. Reports no trauma but has had some falls recently.Uses a cane usually at home but lately has been having trouble due tonumbness in her arms.Denies any bowel or bladder changes but does reporthaving bladder fullness.Reason for Physical Therapy Consult : Safety assessmentRelevant Past Medical History: cervical myopathy; frequent fallsPatient Report: Pt agreeable to PT. Nursing states ok to see pt.Home EnvironmentPatient Lives With: Family (niece, who works)Assistance Available: Part timeEntry To Home: Stairs;With RailNumber Of Stairs Into Home: 3Number Of Stairs To Bed/Bath: 0Tub/Shower Type: tub showerLaundry: first floor-pt completedEquipment Owned: Cane;Grab Bars-Shower;RollatorPrior Functional Level: Within Functional Limits;Required AssistanceAssistance Required With: Cleaning;Laundry;MealsPrio r Functional Level Comments: pt working full timeOBJECTIVE:CURRENT FUNCTIONAL STATUS:Current Functional Mobility Assist Level Additional InformationRollingSupine to Sit SupervisionSit to Supine (Pt up in chair post session)Scooting SupervisionSit to Stand Minimal AssistanceStand to Sit Minimal AssistanceBed to Chair Minimal AssistanceBed To Chair Transfer Equipment: Wheeled WalkerToilet/Commode Contact Guard AssistanceGait Minimal Assistance Gait Device: Wheeled Walker Gait Distance (feet): 10 x 2StairsCurb StepCar TransferGeneral Gait Deviations: Veronica decreased;Step length decreased;Flexedtrunk posture (Increased knee flexion)Balance: Static Sitting;Dynamic Sitting;Static Standing;Dynamic StandingStatic Sitting Balance: IndependentDynamic Sitting Balance: SupervisionStatic Standing Balance: Contact Guard AssistanceDynamic Standing Balance: Minimal AssistanceJH-HLM: 6: Walk 10 steps or morePlease see discipline specific clinical documentation flowsheet forcomplete details for this therapy evaluation/treatment.TINO NARAYAN: Tabby Costa, PT PATIENT NAME: Sonia Lozoya DerueDATE: January 31, 2018 : 3:14 PM [facility] THERAPY NT HNO ID: [id number] thor: Wayne (Ot) RobService: Occupational TherapyAuthor Type: Occupational TherapistType: Therapy (PT/OT/Speech/Resp)Filed: 01/31/2018 2:46 PMNote Text:Occupational Therapy EvaluationSERVICE DATE: 01/31/2018SERVICE TIME: 1305 to 1335ROOM: [id number] ([facility])Recommended Discharge Disposition: Acute RehabRecommended Discharge Disposition Comments: for safe AND IND functioningJustification For Post Acute Needs: Anticipate patient will tolerate 3hours of daily therapy at the time of admission to post-acutesetting;Cognitio n intact;Living the community premorbidly;Medicallycompl ex;Motivated;Willing to participateOT Recommendations to Nursing: ADL?s in chair;To Bathroom for ADL?s /andor Toileting;OOB for meals;With assist of 1 personOT 6 Clicks Score: 14Precautions/Activity Restrictions: Fall RiskASSESSMENT:Patient presents with Cervical myopathy. Requires skilled OT to maximizeADL completion and functional mobility.Patient Disposition at Start of Session: Supine in Bed;Call Chan in ReachPatient Disposition at End of Session: OOB in Chair;Call Chan in ReachTolerated Full SessionOccupational Therapy Problem List: Safety Deficits;Impaired SelfCare;Decreased Activity Tolerance;Functional Mobility ImpairmentPatient /Caregiver Goals: Go To RehabGoals for Plan of Care:Upper Body Dressing with: Set UpLower Body Dressing with: Minimal AssistanceChair Transfer with: SupervisionToilet Transfer with: SupervisionTolerate (minutes of functional activity): 30Functional Activity with: SupervisionRehab Potential: GoodPLAN:Treatment Frequency (times per week): 4 Current admissionTreatment Interventions: Education;Self Care / Home Management;EnergyConservat ion Training;Functional Mobility Training;NeuromuscularRe-e ducationPlan of Care developed with: PatientTREATMENT INTERVENTIONS:Therapy Diagnosis: Reduced mobility-other;Decreased activities of dailyliving (ADL);General symptoms and signs-otherInterventions Provided: Evaluation;Self Chcf Management (38579)$ Evaluation-Low (51438) Billed Units: 1 unit OT Evaluation LowComplexity:Occupational Profile - Brief review of patient's medical record completed(please see current hospital course of evaluation).Occupational Performance - Pt presents with deficits in feeding, grooming,UE bathing/dressing, LE bathing/dressing, functional transfers, functionalmobility, chair transfer, toilet transferComplexity in Clinical Decision Making - The extent of clinical reasoningwas low, number of treatment options limited, no need for modificationsduring the evaluation process, no comorbidities present to affectpatient's occupational performance.Self Chcf Management (97227) Treatment Minutes: 252 unitsSkilled Intervention(s): pt seen BS this pm. co-treat with PT;Educated pt on proper body mechanics to increase ease and safety withfunctional task completion;Supine to sit with elevated HOB CGA;Sit to stand CGA with RW- pt has bad knees;Toilet transfer CGA with grab bar;Supervised hygiene; cues for correct hand placement while standing atsink;Pt ambulated with RW to sit up in chair--CGA for transfer to chair;Pt instructed in the importance of being out of bed with staff assist,benefits of sitting up in chair for meals ,as able; pt educated on role ofOT in acute care environment, POC, and discharge planning.Mod A for self care task completion secondary to weakness/numbness;Pt reports possible pending cervical surgery this week; appears belowfunctional baseline;Recommend Acute rehab to maximize IND functioning;Will continue;Pt with poor tolerance to multiple sessions of therapy this date and hasrequested to be seen as a co-treatment by two skilled therapists toaddress functional mobility progression, functional task modification, andactivity modification for patient and therapist safety in order tomaximize benefits of service to the patient.Total Timed Code Treatment Minutes: 25Total Treatment Time (minutes): 30FUNCTIONAL G CODE:OT 6 Clicks Score: 14 (01/31/18 1305)Self Care Current Status (G8987): CK (01/31/18 1305)Self Care Goal Status (G8988): CJ (01/31/18 1305)Based on clinical assessment and the score on the 6 Clicks FunctionalAssessment Tool, the G code and corresponding severity modifiers aredocumented above.SUBJECTIVE:Current Hospital Course: Chart reviewed;Reviewed history - fall 3 weeksago and hit face, then seen here 01/16. Xray with flexion extension viewsdid show translation with flex/ext. CT scan 01/29 in ER showed nofracture, + stenosis2) Concern for significant and relatively rapid neuro decline. Patientneeds MRI and neurosurgery opinion within next 24-48 hours - lengthydiscussion with patient and niece. Recommended [facility] or [facility].3) Spoke with Dr Kim Neurosurgery, recommend MRI cervical spinewithout. Discussed with Dr Dow for direct admission - trying to arrange- if unable patient will go to ER.4) Followup PRNReason for Occupational Therapy Consult: Sfaety AND Functional AssessmentRelevant Past Medical History: cervical myopathy; frequent fallsPatient Report: pt alert and cooperativeHome EnvironmentPatient Lives With: Family (niece, who works)Assistance Available: Part timeEntry To Home: Stairs;With RailNumber Of Stairs Into Home: 3Number Of Stairs To Bed/Bath: 0Tub/Shower Type: tub showerLaundry: first floor-pt completedEquipment Owned: Cane;Grab Bars-Shower;RollatorPrior Functional Level: Within Functional Limits;Required AssistanceAssistance Required With: Cleaning;Laundry;MealsPrio r Functional Level Comments: pt working full timeOBJECTIVE:Cognition/Co mmunication DeficitsResponsiveness: Alert;AwakeFollows Commands: 3-step CommandsCURRENT FUNCTIONAL STATUS:Current Activities of Daily Living Assist LevelFeeding Moderate AssistanceGrooming Moderate AssistanceBathing Upper Body Moderate AssistanceBathing Lower Body Moderate AssistanceDressing Upper Body Moderate AssistanceDressing Lower Body Moderate AssistanceToileting SupervisionInstrumental Activities of Daily Living Assist LevelMeal/Beverage PrepLight CleaningLaundryMedication Management with StrategiesFunctional Mobility Assist LevelRollingSupine to Sit SupervisionSit to SupineScootingSit to Stand Minimal AssistanceStand to Sit Minimal AssistanceBed to ChairToilet/Commode Contact Guard AssistanceFunctional Mobility Minimal Assistance Wheeled WalkerBalance: Static Sitting;Dynamic Sitting;Static Standing;Dynamic StandingStatic Sitting Balance: SupervisionDynamic Sitting Balance: SupervisionStatic Standing Balance: Contact Guard AssistanceDynamic Standing Balance: Minimal AssistanceActivity Tolerance: Standing ActivityStanding Activity: amb to BRStanding Activity Tolerance (in minutes): 3Please see discipline specific clinical documentation flowsheet forcomplete details for this therapy evaluation/treatment.TINO NARAYAN: Wayne Rivas OTR/L PATIENT NAME: Sonia HemphillueDATE: January 31, 2018 : 2:34 PM [facility] THERAPY NT HNO ID: [id number] thor: Tabby RubioPtRonda Cerratoervice: Physical TherapyAuthor Type: Physical TherapistType: Therapy (PT/OT/Speech/Resp)Filed: 01/31/2018 12:47 PMNote Text:PHYSICAL THERAPY MISSED VISITSERVICE DATE: 01/31/2018SERVICE TIME: 0715 to 07ROOM: [id number] Evaluation. Patient not seen due to Incomplete Orders.Neurosurgery consult pending. Will re-attempt as able.SIGNATURE: Tabby Costa PT PATIENT NAME: Sonia HemphillueDATE: January 31, 2018 : 12:47 PM [facility] Type and Screenon 01-31-2018 ABO/RH(D) Positive Normal [facility] US THYROID/PARATHYROIDon US THYROID/PARATHYROID * * *Final Report* * *DATE OF EXAM: Jan 31 2018 2:48PM [facility] - US THYROID/PARATHYROID / REASON: Thyroid nodule, incidental on CT/MR/US, no risk factors * * * * Physician Interpretation * * * *RESULT: ULTRASOUND OF THE THYROID 01/31/2018 2:48 PMHISTORY: Thyroid nodule, incidental on CT/MR/US, no risk factorsTECHNIQUE: Sonography and Doppler imaging of the thyroid was performed. Images were obtained and stored in a permanent archive.COMPARISON: MRI C-spine 01/30/2018RESULT:RIGHT LOBE: 8.7 x 3.7 x 3.1 cm; heterogeneous, expected flowLEFT LOBE: 4.6 x 1.6 x 1.5 cm; heterogeneous, expected flowISTHMUS: 0.7 cmNODULES:Nodule #1Location: Right lower poleSize: 4.7 x 4.5 x 4.3 cmCharacteristics: Composition: Mixed cystic and solid, 1 point Echogenicity: Isoechoic, 1 point Shape: Xxgnj-hprg-kpez, 0 points Margin: Smooth, 0 points Echogenic foci (Add points for all that apply): None, 0 points Internal vascularity: presentTI-RADS Category: 2ACR Recommendation: No follow-up or FNA is advised.Nodule #2Location: Right midSize: 2.9 x 1.7 x 1.5 cmCharacteristics: Composition: Cystic or almost completely cystic, 0 points Echogenicity: Anechoic, 0 points Shape: Dqyce-bqzu-chqx, 0 points Margin: Smooth, 0 points Echogenic foci (Add points for all that apply): None, 0 points Internal vascularity: absentTI-RADS Category: 1, benignACR Recommendation: No follow-up or FNA is advised.Nodule #3Location: Mid isthmusSize: 1.5 x 1.2 x 1.0 cmCharacteristics: Composition: Solid or almost completely solid, 2 points Echogenicity: Hypoechoic, 2 points Shape: Alzzl-kkpz-tckr, 0 points Margin: Smooth, 0 points Echogenic foci (Add points for all that apply): None, 0 points Internal vascularity: presentTI-RADS Category: 4ACR Recommendation: Follow up imaging in 1, 2, 3 and 5 years is advised.Nodule #4Location: Left upper poleSize: 0.6 x 0.5 x 0.4 cmCharacteristics: Composition: Solid or almost completely solid, 2 points Echogenicity: Hypoechoic, 2 points Shape: Gaseb-pwpn-uvtu, 0 points Margin: Smooth, 0 points Echogenic foci (Add points for all that apply): None, 0 points Internal vascularity: presentTI-RADS Category: 4ACR Recommendation: No FNA or follow-up imaging is advised.Nodule #5Location: Left lower poleSize: 0.5 x 0.5 x 0.5 cmCharacteristics: Composition: Solid or almost completely solid, 2 points Echogenicity: Hypoechoic, 2 points Shape: Wlnjr-ceqn-xrwe, 0 points Margin: Ill-defined. 0 points Echogenic foci (Add points for all that apply): Punctate echogenic foci, 3 points Internal vascularity: presentTI-RADS Category: 5ACR Recommendation: Follow up imaging is advised annually for 5 years.--IMPRESSION:THYROID NODULES PRESENT. ACR TI-RADS LEVEL AND RECOMMENDATIONS DETAILED IN BODY OF REPORT.Transcribed Using Voice RecognitionTranscribe Date/Time: Jan 31 2018 2:58PDictated by: JOSSELYN BUENO MDThis examination was interpreted and the report reviewed and electronically signed by: JOSSELYN BUENO MD on Jan 31 2018 3:08PM [id number] Normal [facility] Urinalysis with Microscopico n 01-31-2018 Bilirubin, Urine Negative Normal Negative [facility] Cast SEE COMMENT Critically abnormal 0 [facility] Comment on above: Result Comment: 1-3G ranular Casts Clarity Clear Normal Clear [facility] Color Straw Critically abnormal Yellow [facility] Epithelial Cells SEE COMMENT Normal Occasional [facility] Comment on above: Result Comment: Occa sionalSquamous Epithelial Cells Glucose Ql (U) Negative Normal Negative [facility] Hemoglobin/Blood,Ur Negative Normal Negative [facility] INR Coag RelTime (Bld) 0-3 Normal 0-3 [facility] Ketones Ql (U) Negative Normal Negative [facility] Leukest Large Critically abnormal Negative [facility] Nitrites Negative Normal Negative [facility] pH 6.0 Normal 5.0-9.0 [facility] Protein, Urine Negative Normal Negative [facility] Specific [place], Ur 1.010 Normal 1.003-1.030 [facility] Urine, Other FOR EAST USE ONLY SEE COMMENT Normal [facility] Comment on above: Result Comment: 1+Mu cous Urobilinogen Normal [facility] Comment on above: Result Comment: Refe rence Interval: <2.0 mg/dL WBC 11-20 Critically abnormal 0-5 [facility] XR CHEST 1V FRONTALon 2017 Protein mass conc * * *Final Report* * *DATE OF EXAM: Jan 31 2018 7:15PM [facility] 5290 - XR CHEST 1V FRONTAL / REASON: Preoperative assessment * * * * Physician Interpretation * * * *RESULT: EXAMINATION: XR CHEST 1V FRONTALHistory: Preoperative assessmentM: EV1Bjrghfeepj: None.RESULT:See Impression.IMPRESSION:1. Lines, Tubes, and Devices: N/A2. Lungs and Pleura: The lungs are clear. No pleural effusion or pneumothorax.3. Cardiomediastinal silhouette: Within normal limits for technique.4. Other: No acute osseous abnormality.Transcribed Using Voice RecognitionTranscribe Date/Time: Jan 31 2018 7:35PDictated by: KJ ROA MDThifara examination was interpreted and the report reviewed and electronically signed by: KJ ROA MD on Jan 31 2018 7:36PM [id number] [facility] ALLIED HEALTHon 01-30-2018 ALLIED HEALTH HNO ID: [id number] thor: Adam Quintero (Tech)ervice: RadiologyAuthor Type: TechnicianType: Allied HealthFiled: 01/30/2018 8:34 PMNote Text: Radiology Service Progress NotePATIENT NAME: Sonia KarimiMRN: [id number] OF SERVICE: January 30, 2018TIME: 8:34 PMPATIENT IDENTITY VERIFICATION COMPLETED USING TWO (2) METHODS: Patientconfirmed name verbally and ID band matches..PATIENT GENDER DATA: Female. status: : NoBreastfeeding status: NO.PATIENT RELEVANT IMPLANT DATA REVIEWED: YesRADIOLOGY DEPARTMENT: MR; Exam(s) Completed: Spine: Cervical spinePERIPHERAL IV DATA: Not applicableSIGNED BY: Verónica Medina TechDecember 2017 8:34 PM [facility] Basic Metabolic Panlon 01-30 Anion gap 3 molar conc 15 mmol/L Normal 9-18 [facility] Calcium mass conc 9.6 mg/dL Normal 8.6-10.0 [facility] Chloride molar conc 101 mmol/L Normal 97-105 [facility] CO2 molar conc 25 mmol/L Normal 22-33 [facility] Creatinine mass conc 0.92 mg/dL Normal 0.58-0.96 [facility] Glucose mass conc 164 mg/dL High 74-99 [facility] Potassium molar conc 3.5 mmol/L Low 3.7-5.1 [facility] Sodium molar conc 141 mmol/L Normal 136-144 [facility] Urea nitrogen mass conc 26 mg/dL High 7-21 [facility] CBC and Differentialon 01-30 Abs Baso 0.05 k/uL Normal <0.11 [facility] Abs [place] 0.95 k/uL High <0.87 [facility] Abs Neut 11.70 k/uL High 1.45-7.50 [facility] Basophils/100 WBC Auto (Bld) 0.3 % Normal [facility] DTYPE Auto Diff Normal [facility] Eosinophils Auto #/vol (Bld) 0.29 10*3/uL Normal <0.46 [facility] Eosinophils/100 WBC Auto (Bld) 1.9 % Normal [facility] Erythrocyte distribution width Auto Ratio (RBC) 13.9 % Normal 11.5-15.0 [facility] Hematocrit Auto Volume Fraction (Bld) 37.1 % Normal 36.0-46.0 [facility] Hemoglobin mass conc (Bld) 12.2 g/dL Normal 11.5-15.5 [facility] Lymphocytes Auto #/vol (Bld) 1.94 10*3/uL Normal 1.00-4.00 [facility] Lymphocytes/100 WBC Auto (Bld) 13.0 % Normal [facility] MCH Auto Entitic mass (RBC) 27.0 pG Normal 26.0-34.0 [facility] MCHC Auto mass conc (RBC) 32.9 g/dL Normal 30.5-36.0 [facility] MCV Auto Entitic volume (RBC) 82.1 fL Normal 80.0-100.0 [facility] Monocytes/100 WBC Auto (Bld) 6.4 % Normal [facility] Neutrophils/100 WBC Auto (Bld) 78.4 % Normal [facility] Platelet mean volume Auto Entitic volume (Bld) 8.9 fL Low 9.0-12.7 [facility] Platelets Auto #/vol (Bld) 259 10*3/uL Normal 150-400 [facility] RBC Auto #/vol (Bld) 4.52 10*6/uL Normal 3.90-5.20 Hi [facility] WBC Auto #/vol (Bld) 14.93 10*3/uL High 3.70-11.00 [facility] CKon 01-30-2018 CK enzyme act/vol 102 U/L Normal 42-196 [facility] HOSPon 01-30-2018 HOSP [facility] Height:5' 6(1.676 m)Weight:277 lb 9 oz (125.9 kg)Outpatient Medications as of 02/02/18:amLODIPine (NORVASC) 5 mg tabletatorvastatin (LIPITOR) 10 mg tabletcholecalciferol (VITAMIN D-3) 2,000 unit tabletcloNIDine HCl (CATAPRES) 0.1 mg tabletCOMPOUNDED PRESCRIPTIONdiclofenac XR (VOLTAREN-XR) 100 mg Ss53plsfbblrqq (NEURONTIN) 100 mg [id number] OIT-VIT D3 ORALHYDROcodone-acetaminop hen (NORCO) 5-325 mg per tabletHYDROcodone-acetamin ophen (NORCO) 5-325 mg per tabletMULTIVIT WITH IRON-MINERALS (MULTIVITAMIN AND MINERALS ORAL)predniSONE (DELTASONE) 10 mg tabletsertraline (ZOLOFT) 100 mg tablettriamterene-hydrochl orothiazide 37.5-25 mg per capsuleAdmission/Clinic Administered Medications as of 02/02/18:acetaminophen 1,000 mg tab(s) (TYLENOL)acetaminophen 650 mg tab(s) (TYLENOL)amLODIPine 2.5 mg tab(s) (NORVASC)atorvastatin 10 mg tab(s) (LIPITOR)bacitracin 50,000 Units in sodium chloride 0.9 % 1,000 mLceFAZolin 3 g in D5W 100 mL (ANCEF)cloNIDine HCl 0.1 mg tab(s) (CATAPRES)docusate sodium 100 mg cap(s) (COLACE)gabapentin 200 mg cap(s) (NEURONTIN)HYDROcodone 5 mg - acetaminophen 325 mg tablet (NORCO)lidocaine - VERIFY PATCHlidocaine 5 % 1 Patch (LIDODERM)lidocaine patch - REMOVENaCl 0.9% iv infusionsertraline 100 mg tab(s) (ZOLOFT)Problem List:Essential hypertension [I10]Cervical polyp [N84.1]Hyperlipidemia [E78.5]Osteoarthritis of both knees [M17.0]Sleep apnea [G47.30]Obesity, Class III, BMI 40-49.9 (morbid obesity) (HCC) [E66.01]Cervical myopathy [G72.9]Cervical spondylosis with myelopathy [M47.12]Allergies:Ativan [Lorazepam]NeomycinNeospor in [Benzalkonium Chloride]Date Verified: 02/02/18Lab ValuesLab Value Units Date High LowPOTA* 3.9 mmol/L 02/02/2018 5.1 3.7HEMA* 35.7 % 02/02/2018 46.0 36.0Progress Notes ():MARA TYSON, RN, RN 01/30/2018 7:02 PM Addendum Nursing Progress NotePatient Name: Sonia KarimiMRN: [id number] Location: [place] [address]/[address] Daily Note:9599-Pt arrived to the unit from outside physicians office. Pt oriented to theroom, call light and staff. Pt educated that she a falls risk and reviewedyellow falls sheet with her. Pt watching falls video at this time. Pt is AANDOX3.PT denies any CP, SOB, dizziness or headache. Pt states that she has n/t to herBUE. Pt states that is has begun to get progressively worse. BS present x4,abdomen soft and nontender. BLE are warm, pink and mobile. IS and deep breathingencouraged. Will continue to monitor. Safety maintained. Bed alarm on.1849-CLERK OPERATOR med list reviewed and updated with pt.1855-Paged Dr. Dow at this time regarding admission orders and to reorder ptsPTA medications.1900-Spoke with Dr. Dow at this time, verbal admission orders received willplace them into the computer.This note was completed by: Juany RUSSO Fissel, Tech 01/30/2018 8:34 PM Signed Radiology Service Progress NotePATIENT NAME: Sonia KarimiMRN: [id number] OF SERVICE: January 30, 2018TIME: 8:34 PMPATIENT IDENTITY VERIFICATION COMPLETED USING TWO (2) METHODS: Patientconfirmed name verbally and ID band matches..PATIENT GENDER DATA: Female. status: : No Breastfeedingstatus: NO.PATIENT RELEVANT IMPLANT DATA REVIEWED: YesRADIOLOGY DEPARTMENT: MR; Exam(s) Completed: Spine: Cervical spinePERIPHERAL IV DATA: Not applicableSIGNED BY: Verónica Medina TechDecember 2017 8:34 Chelle Choi, RN, RN 01/30/2018 10:17 PM Signed Nursing Progress NotePatient Name: Sonia KarimiMRN: [id number] Location: [place] [address]/HD-[id number] Daily Note:2218 New IV placed on first attempt following sterile technique,tolerated well, PRESTON Higgins notified.This note was completed by: Naty Friend RN, RN 01/30/2018 10:27 PM Addendum Nursing Progress NotePatient Name: Sonia KarimiN: [id number] Location[facility]466[id number] Daily Note:1900: Assumed care of this pt, report received from RN. ANDREEAOx3, I/S at bedside,SCDs on bilaterally. Pain board reviewed with pt. Denies further needs at thistime, call light in place, bed in lowest position, will continue to monitor.1999: Pt resting quietly in bed. Vitals and assessment complete, see flowsheets.Pt tolerated well. Medication administered per eMAR. Denies further needs atthis time, safety maintained.2009: Pt left unit in stable condition for [id number]: Spoke with Dr. Dow regarding results of MRI, will make Dr. Kim awareas well.2119: Dr Kim made aware of MRI [id number]: Pt returned to unit, bed alarm on, call chan within [id number]: Pt resting quietly in bed, eyes closed. Respirations even and unlabored.Call light within reach, will continue to monitor.0400: Pt resting quietly in bed, eyes closed. Respirations even and unlabored.Call light within reach, will continue to monitor.This note was completed by: Juany Yepez RN, RN 01/31/2018 7:59 AM Signed Nursing Progress NotePatient Name: Sonia KarimiMRN: [id number] Location: [place] [address]/[place] [address]-2 Daily Note: Assumed care of pt, AANDOx3, c/o numbness/tingling to bilateral arms.Assessment as chartedThis note was completed by: Ramez Laguna MD 01/31/2018 1:06 PM AddendumCONSULT: Neurosurgery SERVICESERVICE DATE: 01/31/2018SERVICE TIME: 0745REASON FOR CONSULT: cervical myopathyREQUESTING PHYSICIAN: Lillie CARE PHYSICIAN: Cherie Clintonject Suresh is a 62 year old female who presents for cervical myopathy. Patientstates that symptoms started about 3 weeks ago with no antecedent trauma oractivity. Since then she has had some falls. Pain is in the neck and willradiate at times down bilateral UEs to the fingers. She complains of numbnessin all extremities UE>LEs. No change in bowel and bladder. She is right handedand has difficulty with fine motor tasks. She was using a cane but is nowhaving difficulty with that due to the difficulty with fine motor tasks.FUNCTIONAL STATUS: Partially dependentPAST MEDICAL HISTORYDiagnosis Date- Cervical polyp- COPD (chronic obstructive pulmonary disease) (HCC)- Hyperlipidemia- Hypertension- Minor depressionPAST SURGICAL HISTORYProcedure Laterality Date- REMOVAL ADENOIDS,PRIMARY,<12 Y/O Adenoidectomy- REMOVAL OF TONSILS,<12 Y/O TonsillectomyFAMILY HISTORYProblem Relation Age of Onset- Cancer Father leukemia- Cancer Mother skin cancer- Cancer Paternal Grandfather stomach cancer- Cancer Paternal Grandmother colon to liver- Cancer Sister cancer in situ - breast- Diabetes Father- Diabetes Sister- Heart Mother tachycardiaSocial HistorySubstance Use Topics- Smoking status: Former Smoker- Smokeless tobacco: Never Used Comment: Quit smokig 38 years ago- Alcohol use NoPrescriptions Prior to Admission:amLODIPine (NORVASC) 5 mg tablet Take 1 tablet by mouth once daily. Disp: 90tablet Rfl: 3 Takingatorvastatin (LIPITOR) 10 mg tablet Take 1 tablet by mouth once daily. Disp: 90tablet Rfl: 3 Takingcholecalciferol (VITAMIN D-3) 2,000 unit tablet Take 2,000 Units by mouth oncedaily. Disp: Rfl: TakingcloNIDine HCl (CATAPRES) 0.1 mg tablet Take 1 tablet by mouth daily at bedtime.Disp: 90 tablet Rfl: 3 TakingCOMPOUNDED PRESCRIPTION BIPAP 1 liter bleed in 12/5 cm. RR 14Replacementmachine with heated humidity. CPAP mask and supplies.Use nightly. Disp: 1 EachRfl: 0 Takingdiclofenac XR (VOLTAREN-XR) 100 mg Tb24 TAKE 1 TABLET DAILY WITH FOOD Disp: 90tablet Rfl: 3 Takinggabapentin (NEURONTIN) 100 mg capsule TAKE 2 CAPSULES BY MOUTH TWICE A DAY Disp:120 capsule Rfl: 3 CksgfmVLBUJGND-HID-GPCENBU IT-VIT D3 ORAL Take 3 tablets by mouth once daily. Disp:Rfl: TakingHYDROcodone-acetamin ophen (NORCO) 5-325 mg per tablet Take 1 tablet by mouth atbedtime as needed for up to 30 days.Earliest Fill Date: 08/29/17 Disp: 30 tabletRfl: 0 TakingHYDROcodone-acetamin ophen (NORCO) 5-325 mg per tablet Take 1 tablet by mouth atbedtime as needed for up to 30 days. Disp: 30 tablet Rfl: 0 TakingMULTIVIT WITH IRON-MINERALS (MULTIVITAMIN AND MINERALS ORAL) Take 1 tablet bymouth once daily. Disp: Rfl: TakingpredniSONE (DELTASONE) 10 mg tablet Please take 3 pills twice daily for 3 days,then 2 pills twice daily for 3 days, then 1 pill twice daily for 3 days, then 1pill daily till gone. (Patient not taking: Reported on 01/30/2018) Disp: 40 tablet Rfl: 0 Not Takingsertraline (ZOLOFT) 100 mg tablet Take 1 tablet by mouth once daily. Disp: 90tablet Rfl: 3 Takingtriamterene-hydrochl orothiazide 37.5-25 mg per capsule Take 1 capsule by mouthonce daily. Disp: 90 capsule Rfl: 3 [facility]Cu[facility] medications:amLODIPine 5 mg tab(s) (NORVASC) 5 mg ORAL DAILYcloNIDine HCl 0.1 mg tab(s) (CATAPRES) 0.1 mg ORAL AT BEDTIMEdiclofenac (EC) 50 mg tab(s) (VOLTAREN) 50 mg ORAL BIDgabapentin 200 mg cap(s) (NEURONTIN) 200 mg ORAL BIDHYDROcodone 5 mg - acetaminophen 325 mg tablet (NORCO) 1 tablet ORAL HS PRNpotassium chloride ER 20 mEq tab(s) (K-DUR, KLOR-CON) 20 mEq ORAL ONCEsertraline 100 mg tab(s) (ZOLOFT) 100 mg ORAL DAILYtriamterene-hydrochlo rothiazide 37.5-25 mg 1 tablet (MAXZIDE-25) 1 tablet ORALDAILYAllergies As of Date: 01/30/2018Allergen Noted ReactionATIVAN [LORAZEPAM] 03/26/2012 HivesNEOSPORIN [BENZALKONIUM CHLORIDE] 03/26/2012 RashFully Assessed 01/30/2018COMPLETE REVIEW OF SYSTEMS:PAIN ASSESSMENT: Negative for pain, history of chronic pain, or currenttreatment for a chronic pain condition.GENERAL: No weight loss, malaise or feversHEENT: Negative for frequent or significant headaches, No changes in hearing orvision, no nose bleeds or other nasal problemsNECK: Negative for lumps, goiter, pain and significant neck swellingRESPIRATORY: Negative for cough, hemoptysis, wheezing, COPD, dyspnea orshortness of breathCARDIOVASCULAR: Negative for chest pain, leg swelling, hypertension, CHF orpalpitationsGI: No nausea, vomiting, or diarrheaGU: No history of dysuria, frequency or incontinenceMUSCULOSKELETA L: see HPISKIN: Negative for lesions, rash, and itchingPSYCH: Negative for sleep disturbance, mood disorder and recent psychosocialstressorsHEMAT OLOGY/LYMPHOLOGY: Negative for prolonged bleeding, bruising easily orswollen nodesENDOCRINE: Negative for cold or heat intolerance, polyuria, polydipsia andgoiterNEURO: No history of headaches, syncope, paralysis, seizures or tremorsObjectivePHYSICAL EXAM:Physical Exam Performed:GENERAL: Alert, no distress, cooperativeNEURO: motor: 5/5 BLEs, 5/5 BUEs with the exception of right biceps 4+/5, leftbiceps 4-4+/5 and left intrinsics 3/5Sensation: intact to LT in BUE/BLEsPositive ruiz's bilateral, sustained Clonus bilaterally.BP 116/60 Pulse 79 Temp (Src) 98.5 (Oral) Resp 18 Ht 5' 6 (1.68m) Wt277 lb 9 oz (125.9kg) SpO2 94% BMI 44.82 kg/(m2).DATA:Diagnostic tests reviewed for today's visit:Most recent imaging: radiologist report: Cervical spondylosis as described worstat C3-C4 with mild cordcompression. ?Abnormal cord signal at this level which may indicate edemaor myelomalacia.Impression/Re commendationsActive Problems: Cervical myopathy POA: YesNo acute neurosurgery interventionFurther pending Dr. Kim's review.62 yo female with progressive cervical myelopathy over last 2 weeks, unable touse arms/hands.Deltoid 2/5, left biceps tricep 2/5, right biceps triceps 3/5, hand intrinsics2/5.MRI cervical- C4-5 autofusion, C3-4 instability, spinal cord compression,myelomalacia.W ill rec ACDF C3-4.I discussed risks including bleeding, infection, CSF leak, paralyzes, oesophagusinjury, carotid a injury, trouble swallowing, permanent feeding tube, deathstroke, OR, DVT.Patient will require pre op clearance.RAMAN ClayIGNATURE: JADE Hercules PATIENT NAME: Sonia HemphillueDATE: January 31, 2018 : 8:06 AM PAGER:Ketty Dow MD 01/31/2018 5:50 PM SignedHISTORY AND PHYSICAL EXAMINATIONPATIENT NAME: Sonia KarimiMRN: [id number] DATE: 01/31/2018SERVICE TIME: 8:34 [facility]: ASAEL Clinton COMPLAINT: Neck painHPI: This is a 62 year old female who presents with cervical myopathy. Patientreports neck pain started about 3 weeks ago. She went to see her PCP who gaveher prednisone for 2 weeks but there was no improvement. Continued to havingnumbness in bilateral hands and in both legs at times. She went back to followup with her doctor who sent her to the hospital for further evaluation. Reportsno trauma but has had some falls recently. Uses a cane usually at home butlately has been having trouble due to numbness in her arms.Denies any bowel orbladder changes but does report having bladder fullness.PAST MEDICAL HISTORY:PAST MEDICAL HISTORYDiagnosis Date- Cervical polyp- COPD (chronic obstructive pulmonary disease) (HCC)- Hyperlipidemia- Hypertension- Minor depressionPAST SURGICAL HISTORY:PAST SURGICAL HISTORYProcedure Laterality Date- REMOVAL ADENOIDS,PRIMARY,<12 Y/O Adenoidectomy- REMOVAL OF TONSILS,<12 Y/O TonsillectomyFAMILY HISTORY:FAMILY HISTORYProblem Relation Age of Onset- Cancer Father leukemia- Cancer Mother skin cancer- Cancer Paternal Grandfather stomach cancer- Cancer Paternal Grandmother colon to liver- Cancer Sister cancer in situ - breast- Diabetes Father- Diabetes Sister- Heart Mother tachycardiaSOCIAL HISTORY:Social HistorySubstance Use Topics- Smoking status: Former Smoker- Smokeless tobacco: Never Used Comment: Quit smokig 38 years ago- Alcohol use NoMEDICATIONS: Prior to Admission MedicationsPrescriptions Prior to Admission:amLODIPine (NORVASC) 5 mg tablet Take 1 tablet by mouth once daily. Disp: 90tablet Rfl: 3 Takingatorvastatin (LIPITOR) 10 mg tablet Take 1 tablet by mouth once daily. Disp: 90tablet Rfl: 3 Takingcholecalciferol (VITAMIN D-3) 2,000 unit tablet Take 2,000 Units by mouth oncedaily. Disp: Rfl: TakingcloNIDine HCl (CATAPRES) 0.1 mg tablet Take 1 tablet by mouth daily at bedtime.Disp: 90 tablet Rfl: 3 TakingCOMPOUNDED PRESCRIPTION BIPAP 1 liter bleed in 12/5 cm. RR 14Replacementmachine with heated humidity. CPAP mask and supplies.Use nightly. Disp: 1 EachRfl: 0 Takingdiclofenac XR (VOLTAREN-XR) 100 mg Tb24 TAKE 1 TABLET DAILY WITH FOOD Disp: 90tablet Rfl: 3 Takinggabapentin (NEURONTIN) 100 mg capsule TAKE 2 CAPSULES BY MOUTH TWICE A DAY Disp:120 capsule Rfl: 3 XzuhpmIDETXMMM-KWA-FUGUKNP IT-VIT D3 ORAL Take 3 tablets by mouth once daily. Disp:Rfl: TakingHYDROcodone-acetamin ophen (NORCO) 5-325 mg per tablet Take 1 tablet by mouth atbedtime as needed for up to 30 days.Earliest Fill Date: 08/29/17 Disp: 30 tabletRfl: 0 TakingHYDROcodone-acetamin ophen (NORCO) 5-325 mg per tablet Take 1 tablet by mouth atbedtime as needed for up to 30 days. Disp: 30 tablet Rfl: 0 TakingMULTIVIT WITH IRON-MINERALS (MULTIVITAMIN AND MINERALS ORAL) Take 1 tablet bymouth once daily. Disp: Rfl: TakingpredniSONE (DELTASONE) 10 mg tablet Please take 3 pills twice daily for 3 days,then 2 pills twice daily for 3 days, then 1 pill twice daily for 3 days, then 1pill daily till gone. (Patient not taking: Reported on 01/30/2018) Disp: 40 tablet Rfl: 0 Not Takingsertraline (ZOLOFT) 100 mg tablet Take 1 tablet by mouth once daily. Disp: 90tablet Rfl: 3 Takingtriamterene-hydrochl orothiazide 37.5-25 mg per capsule Take 1 capsule by mouthonce daily. Disp: 90 capsule Rfl: 3 TakingCURRENT ALLERGIES:ALLERGIESAllerge n Reactions- Ativan [Lorazepam] Hives- Neosporin [Benzalko* RashCOMPLETE REVIEW OF SYSTEMS:GENERAL: No weight loss, malaise or fevers/chillsHEENT: No recent colds/congestionRESPIRATOR Y: Negative for cough, wheezing or shortness of breathCARDIOVASCULAR: Negative for chest pain, palpitations, or leg swellingGI: No nausea, vomiting, or diarrhea. No abdominal pain or constipationGU: No dysuria, frequency or incontinenceMUSCULOSKELETA L: Negative for joint pain or swelling, back pain or muscle painSKIN: Negative for lesions, rash, and itchingNEURO: No headaches, dizziness, + numbness or tinglingAll other reviewed and negative other than HPI.OBJECTIVEPHYSICAL EXAM:Patient Vitals for the past 24 hrs: BP Temp Temp src Pulse Resp SpO2 Height Yriahl87/19/18 0800 (!) 108/48 36.6 ?C (97.9 ?F) Oral 63 18 95 % - -01/31/18 0013 116/60 36.9 ?C (98.5 ?F) Oral 79 18 94 % - -01/30/182001 107/50 36.5 ?C (97.7 ?F) Oral 79 18 97 % - -01/30/18 1833 150/70 36.6 ?C (97.8 ?F) Oral 90 20 98 % - -01/30/18 1832 - - - - - - 167.6 cm (5' 6) 125.9 kg (277 lb 9 oz)Body mass index is 44.8 kg/m?.BP (!) 108/48 Pulse 63 Temp 36.6 ?C (97.9 ?F) (Oral) Resp 18 Ht167.6 cm (5' 6) Wt 125.9 kg (277 lb 9 oz) SpO2 95% BMI 44.80 kg/m?GENERAL: Alert, no acute distress, cooperativeSKIN: Skin color, texture, turgor normal. No rashes or lesions.NECK: No jugulovenous distention, Supple, decreased ROMLUNGS: Lungs clear to auscultation, Good diaphragmatic excursionCARDIAC: Normal S1 and S2; no rubs, murmurs, or gallopsABDOMEN: Abdomen soft, non-tender, BS normal a2VTQACLSUPRA: No LE edemaNEURO: AANDOx3, Non-focal sensation intact B?L upper and lower extremities, 5/5strength upper and lower extremitiesPULSES: 2+ radial, 2+ carotidDATA:Diagnostic tests reviewed for today's visit:Most recent labsMost recent imagingCBC, Coags, BMP, Mg, PhosRecent Labs 3WBC 14.93*HB 12.2HCT 37.1PLT 259NA 141K 3.5*CHLOR 101CO2 25BUN 26*CREAT 0.92GLUC 164*CA 9.6Liver Function, Amylase, AND LipaseCardiac EnzymesRecent Labs 3CK 102ASSESSMENT AND PLANCervical myopathy [G72.9]- MRI spine: cord compression- Neurosurgery consulted- gabapentin, norcoBladder fullness- check UA for UTIHTN- c/w amlodipine, maxzideHLD: statinThyroid mass- noted on MRI- thyroid USHypokalemia- replete, monitorOSA- CPAPObesityDVT prophylaxis- SCDsSIGNATURE: Mandie Aguilar APRN.CNPDATE: January 31, 2018TIME: 8:34 AMPatient seen, examined and details of HAND P reviewed. I personally have examinedthe patient and reviewed the Assessment and Plan with our team as detailedabove. Changes made to Plan of Care as recorded.62 yr w rapidly worsening UE weakness, neck pain, admitted after out-pt w PMANDR,raising concern for urgent Neurosurgeon eval. No h/o trauma. Pt reports UEnumbness, which initially got better w a Pred burst. Now hard for her to raiseher arms. Reports no LE weakness.M Obese uses CPAP for OSAUE 3/5 ericka, DTRs suppresed.TXXC1S1Xqic abdoWBC 14.9, but was on PredUrgent MRI Cx SP was done notedNSurg eval on going this amCPAP form homeSyed Paloma, M.D.Previous VersionRichard Huddleston MD 01/31/2018 11:25 AM SignedCase Management: Chart reviewed. 62 year old female who presented with concernfor cervical myopathy. Failed Outpatient management Falls. Needs a cane forroutine ambulation but difficulties with use secondary to arm numbness. Morbidobesity with a BMI of 44.80 and a weight of 277.MRI yesterday has an incidental finding of a large thyroid mass measuring 5.8cm.Agree with Inpatient Status.Richard Huddleston MD Utilization Review CommitteeIvana Ward RN, RN 01/31/2018 11:47 AM SignedCARE MANAGEMENT: ASSESSMENT AND DISCHARGE PLANSERVICE DATE: 01/31/2018SERVICE TIME: 11:43 [facility] PH[facility]IAN:ELA Clintonhone: [phone] STATUS: InpatientNeeds Prior to Discharge: OT/PT EvaluationMEDICAL:Patient/ Teen Counselor Stated Goals:To have reduction in symptomsTo improve my functional statusTo return home to life as it wasHealth Insurance: AULTCAREHealth Issues Impacting Discharge Plan: Newly diagnosed cervical cordcompressionLast Admission Date: noneIs this Within the Past 30 days? NoAdvance Directive:Current Advance Directive: Health Care Power of Chief Operating Officer;Daniel Anderson Chart: [facility] [place] [facility] Clear[facility] Coord[facility] Attempted to Assist with AD Completion: YesAction: Patient UnwillingHealth Literacy:1. How often do you need to have someone help you when you read instructions,pamphlets, or other written material from your doctor or pharmacy? Never - 12. How confident are you filling out medical forms by yourself? Extremely - 1If Patient scores > 3 on either question, the following interventions were putinto place:Patient did not score > 3FUNCTIONAL AND COGNITIVE/BEHAVIORALPRIOR TO ADMISSION:Baseline Mental Status: Alert AND Oriented, Person, Place , Time and SituationFunctional Status: IndependentDoes Patient Currently Receive Any Community Services or Home Care? NoneEquipment Prior to Admission: Cane - StraightWalkerHas the Patient Been in a Group Home Facility in the Past 30 days? NoSOCIAL:Living Arrangement: HomeLives With: nieceFinancial Resources: N/APrimary Contact: Extended Emergency Contact InformationPrimary Emergency Contact: Magali Alfaro Ucvi Htsuek Ajbcphpu: SisterSupportive: YesOther Important Patient Contacts: NoneCaregiver Assessment:Caregiver is ready, willing and able to meet the patient's needs as recommendedby the inter-professional team? to be determinedPatient's transition needs and plan for meeting these needs: await physiciantreatment plan and therapy evaluationsDoes the patient have an acute stroke diagnosis, or has the patient had a strokeduring this admission? NoMedication Adherence:I am convinced of the importance of my prescription medication: Agree completely- 0I worry that my prescription medication will do more harm than good to meDisagree completely - 0I feel financially burdened by my hot-kc-itovtz expenses for my prescriptionmedication: Disagree completely - 0Patient is categorized as low risk < 2Are you interested in bedside delivery of your medications? NoFood Concerns:In the Last Month, Have You had Trouble Getting Food? No trouble getting foodDuring the Last Month, Have You Worried Whether Your Food Would Run Out BeforeYou Had Enough Money to Buy More? NoIs the Patient Psychosocially Complex? NoASSESSMENT AND PLAN:Medical Needs: 2 or more chronic diseases and Fall risk or frequent fallsPsychosocial Needs: NoneFREEDOM OF CHOICE EXPLAINED:N/A at this timePOTENTIAL TRANSITION PLANSHomeHome OT/PTRehab FacilityMet with patient at bedside. She has noticed increase weakness in her hands andhad been on prednisone. She saw no improvement and [place] Await treatment plan and therapy evaluations. Will follow.SIGNATURE: Ivana Ward RN PATIENT NAME: Sonia HemphillueDATE: January 31, 2018 : 11:43 AM PAGER/CONTACT #: [phone] Mix RN, RN 01/31/2018 1:52 PM Addendum Nursing Progress NotePatient Name: Sonia KarimiMRN: [id number] Location: [facility]466/FV-8U-096-2 Daily Note:1115- Received report at this time, denies needs, will monitor.1135- Gave ordered atorvastatin, patient alert and oriented, numbness andtingling in bilateral upper extremities. Stating neck pain, patient takes 600mgibuprofen 3x daily, will page Dr Dow to notify and receive pain medicationorders.1200- Paged Dr Dow at this time: Sonia Karimi [phone] Patient having neckpain, patient takes 600 ibuprofen 3x day. PT requesting. Thanks, Ainsley [phone]- Paged Dr Dow to make aware of pharmacists concerns for orderedibuprofen as well as Voltaren: Sonia Karimi-2 Pharmacy will not verifyibuprofen because patient takes voltaren 50mg twice daily for her knees. Bothare NSAIDS. Patient is okay with taking Tylenol instead. Thanks, Ainsley [phone]- Paged Dr Dow at this time per patient request: Sonia Karimi-2Patient going down to ultrasound of thyroid, patient does not have any idea whyshe needs an ultrasound of her thyroid. Able to come talk to patient about MRIresults. Thank you, Ainsley [phone] note was completed by: Juany Chen, KIRAN 01/31/2018 12:47 PM SignedPHYSICAL THERAPY MISSED VISITSERVICE DATE: 01/31/2018SERVICE TIME: 0715 to 0715ROOM: [address]ttempted Evaluation. Patient not seen due to Incomplete Orders. Neurosurgeryconsult pending. Will re-attempt as able.SIGNATURE: Tabby Costa, KIRAN PATIENT NAME: Sonia HemphillueDATE: January 31, 2018 : 12:47 PMTHADDEUS Cardona 01/31/2018 2:46 PM AddendumOccupational Therapy EvaluationSERVICE DATE: 01/31/2018SERVICE TIME: 1305 to 1335ROOM: [address] ( ULTRASOUND)Recommended Discharge Disposition: Acute RehabRecommended Discharge Disposition Comments: for safe AND IND functioningJustification For Post Acute Needs: Anticipate patient will tolerate 3 hours ofdaily therapy at the time of admission to post-acute setting;Cognitionintact;Li ving the community premorbidly;Medically complex;Motivated;Willing toparticipateOT Recommendations to Nursing: ADL?s in chair;To Bathroom for ADL?s /and orToileting;OOB for meals;With assist of 1 personOT 6 Clicks Score: 14Precautions/Activity Restrictions: Fall RiskASSESSMENT:Patient presents with Cervical myopathy. Requires skilled OT to maximize ADLcompletion and functional mobility.Patient Disposition at Start of Session: Supine in Bed;Call Chan in ReachPatient Disposition at End of Session: OOB in Chair;Call Chan in ReachTolerated Full SessionOccupational Therapy Problem List: Safety Deficits;Impaired Self Care;DecreasedActivity Tolerance;Functional Mobility ImpairmentPatient /Caregiver Goals: Go To RehabGoals for Plan of Care:Upper Body Dressing with: Set UpLower Body Dressing with: Minimal AssistanceChair Transfer with: SupervisionToilet Transfer with: SupervisionTolerate (minutes of functional activity): 30Functional Activity with: SupervisionRehab Potential: GoodPLAN:Treatment Frequency (times per week): 4 Current admissionTreatment Interventions: Education;Self Care / Home Management;EnergyConservat ion Training;Functional Mobility Training;Neuromuscular Re-educationPlan of Care developed with: PatientTREATMENT INTERVENTIONS:Therapy Diagnosis: Reduced mobility-other;Decreased activities of daily living(ADL);General symptoms and signs-otherInterventions Provided: Evaluation;Self Chcf Management (13207)$ Evaluation-Low (09831) Billed Units: 1 unit OT Evaluation Low Complexity:Occupational Profile - Brief review of patient's medical record completed(please see current hospital course of evaluation).Occupational Performance - Pt presents with deficits in feeding, grooming, UEbathing/dressing, LE bathing/dressing, functional transfers, functionalmobility, chair transfer, toilet transferComplexity in Clinical Decision Making - The extent of clinical reasoning waslow, number of treatment options limited, no need for modifications during theevaluation process, no comorbidities present to affect patient's occupationalperformance.Se lf Chcf Management (97860) Treatment Minutes: 252 unitsSkilled Intervention(s): pt seen BS this pm. co-treat with PT;Educated pt on proper body mechanics to increase ease and safety with functionaltask completion;Supine to sit with elevated HOB CGA;Sit to stand CGA with RW- pt has bad knees;Toilet transfer CGA with grab bar;Supervised hygiene; cues for correct hand placement while standing at sink;Pt ambulated with RW to sit up in chair--CGA for transfer to chair;Pt instructed in the importance of being out of bed with staff assist, benefitsof sitting up in chair for meals ,as able; pt educated on role of OT in acutecare environment, POC, and discharge planning.Mod A for self care task completion secondary to weakness/numbness;Pt reports possible pending cervical surgery this week; appears below functionalbaseline;Recomme nd Acute rehab to maximize IND functioning;Will continue;Pt with poor tolerance to multiple sessions of therapy this date and hasrequested to be seen as a co-treatment by two skilled therapists to addressfunctional mobility progression, functional task modification, and activitymodification for patient and therapist safety in order to maximize benefits ofservice to the patient.Total Timed Code Treatment Minutes: 25Total Treatment Time (minutes): 30FUNCTIONAL G CODE:OT 6 Clicks Score: 14 (01/31/18 1305)Self Care Current Status (G8987): CK (01/31/18 1305)Self Care Goal Status (G8988): CJ (01/31/18 1305)Based on clinical assessment and the score on the 6 Clicks Functional AssessmentTool, the G code and corresponding severity modifiers are documented above.SUBJECTIVE:Current Hospital Course: Chart reviewed;Reviewed history - fall 3 weeks ago andhit face, then seen here 01/16. Xray with flexion extension views did showtranslation with flex/ext. CT scan 01/29 in ER showed no fracture, + stenosis2) Concern for significant and relatively rapid neuro decline. Patient needs MRIand neurosurgery opinion within next 24-48 hours - lengthy discussion withpatient and niece. Recommended [facility] or [facility].3) Spoke with Dr Kim Neurosurgery, recommend MRI cervical spine without.Discussed with Dr Dow for direct admission - trying to arrange - if unablepatient will go to ER.4) Followup PRNReason for Occupational Therapy Consult: Sfaety AND Functional AssessmentRelevant Past Medical History: cervical myopathy; frequent fallsPatient Report: pt alert and cooperativeHome EnvironmentPatient Lives With: Family (niece, who works)Assistance Available: Part timeEntry To Home: Stairs;With RailNumber Of Stairs Into Home: 3Number Of Stairs To Bed/Bath: 0Tub/Shower Type: tub showerLaundry: first floor-pt completedEquipment Owned: Cane;Grab Bars-Shower;RollatorPrior Functional Level: Within Functional Limits;Required AssistanceAssistance Required With: Cleaning;Laundry;MealsPrio r Functional Level Comments: pt working full timeOBJECTIVE:Cognition/Co mmunication DeficitsResponsiveness: Alert;AwakeFollows Commands: 3-step CommandsCURRENT FUNCTIONAL STATUS:Current Activities of Daily Living Assist LevelFeeding Moderate AssistanceGrooming Moderate AssistanceBathing Upper Body Moderate AssistanceBathing Lower Body Moderate AssistanceDressing Upper Body Moderate AssistanceDressing Lower Body Moderate AssistanceToileting SupervisionInstrumental Activities of Daily Living Assist LevelMeal/Beverage PrepLight CleaningLaundryMedication Management with StrategiesFunctional Mobility Assist LevelRollingSupine to Sit SupervisionSit to SupineScootingSit to Stand Minimal AssistanceStand to Sit Minimal AssistanceBed to ChairToilet/Commode Contact Guard AssistanceFunctional Mobility Minimal Assistance Wheeled WalkerBalance: Static Sitting;Dynamic Sitting;Static Standing;Dynamic StandingStatic Sitting Balance: SupervisionDynamic Sitting Balance: SupervisionStatic Standing Balance: Contact Guard AssistanceDynamic Standing Balance: Minimal AssistanceActivity Tolerance: Standing ActivityStanding Activity: amb to BRStanding Activity Tolerance (in minutes): 3Please see discipline specific clinical documentation flowsheet for completedetails for this therapy evaluation/treatment.TINO NARAYAN: LILY Cardona/L PATIENT NAME: Sonia Lozoya DerueDATE: January 31, 2018 : 2:34 PMPrevious Guillermo Costa PT 01/31/2018 3:19 PM SignedPhysical Therapy EvaluationSERVICE DATE: 01/31/2018SERVICE TIME: 1305 to 1335ROOM: [id number] ([facility])Recommended Discharge Disposition: Acute RehabRecommended Discharge Disposition Comments: Rec AR to maximize functionalmobility and safetyJustification For Post Acute Needs: Anticipate that patient will require daily(5x/wk) skilled therapy in a post-acute facility setting at the time of acutehospital discharge;Anticipate patient will tolerate 3 hours of daily therapy atthe time of admission to post-acute settingRecommended Discharge Equipment: No equipment needs anticipatedPT Recommendations to Nursing: Ambulate with device;Transfer to/from chair;OOBfor Meals;With assist of 2 peopleDevice: Wheeled WalkerPT 6 Clicks Score: 19Precautions/Activity Restrictions: Fall RiskASSESSMENT :Pt presents with impaired functional mobility, ADL performance, strength andendurance impacting ability to function without assist from staff. Pt's needsexceeds resources available at home to safely return home at this time secondaryto balance and physiological response. Requires skilled therapy to addressmobility and self care limitations as well as progression of activities withinsafe limits to prevent falls. Pt is a low complexity evaluation for thesereasons.Patient Disposition at Start of Session: Supine in Bed;Call Chan in ReachPatient Disposition at End of Session: OOB in Chair;Call Chan in Reach (RNstates no need for chair alarm )Tolerated Full SessionPhysical Therapy Problem List: Balance Impaired;Functional MobilityImpairment;Decreas ed Strength;Decreased Range Of Motion;Decreased ActivityTolerance;Impaired Self Care;Safety Deficits;PainPatient /Caregiver Goals: Go HomeGoals for Plan of Care:Able to perform HEP with: Verbal Cues OnlyTransfer supine to/from sit with: Modified IndependentTransfer sit to/from stand with: Modified IndependentAmbulate with: Modified IndependentDistance: 50Device: Wheeled WalkerAmbulate up and down steps with: Contact Guard AssistanceNumber of steps: 3Device: RailTransfer: All functional transfers with mod IRehab Potential: GoodPLAN:Treatment Frequency (times per week): 7Treatment Duration (number): (as able LOS) Current admissionTreatment Interventions: Education;Self Care / Home Management;EnergyConservat ion Training;Joint Mobility;Strengthening;Fun ctional MobilityTraining;Balance Training;Neuromuscular Re-educationPlan of Care developed with: PatientTREATMENT INTERVENTIONS:Therapy Diagnosis: Reduced mobility-other;Decreased activities of daily living(ADL);Muscle Weakness (generalized)Interventions Provided: Evaluation;Therapeutic Activity (78790);Gait Training(72751)$ Evaluation-Low (52499) Billed Units: 1 unitTherapeutic Activity (30423) Treatment Minutes: 131 unitSkilled Intervention(s): Instructed patient in supine to sit pushing with upperextremities to sit upInstruction in sit to stand technique with proper hand placement and bodypositioning at edge of bed/chairInstruction in stand to sit technique with lower extremities touching chair/bedand reaching back for surfaceInstruction in sit to and from stand technique with proper hand placement andbody positioning at edge of bed/chairGait Training (87793) Treatment Minutes: 101 unitSkilled Intervention(s): Instruction in sit to stand technique with proper handplacement and body positioning at edge of bed/chair, Instruction in stand to sittechnique with LE's touching chair/bed and reaching back for surface,Instruction in sequencing, gait pattern, Instruction in correction of gaitdeviations and Instruction in use of equipment, cues for sequence and patternPt educated on role of therapy, POC, importance of OOB with assist. Pt in bed onarrival. Supine to sit with supervision. Sitting EOB with no c/o dizziness. Ptwith 5/5 strength in LEs. Sit to stand with min A. Verbal cues for handplacement and safety with transfer. Pt ambulated 10 x 2 with wheeled walker andmin A. Pt with decreased speed/step length and forward flexed posture. Pt leansheavily on walker and has bilateral knee buckling. Pt with genu varumbilaterally. Pt transferred on/off commode with Min A. Verbal cues for handplacement and safety with transfer. Pt in chair post session.Total Timed Code Treatment Minutes: 23Total Treatment Time (minutes): 30FUNCTIONAL G CODE:PT 6 Clicks Score: 19 (01/31/18 1305)Mobility: Walking and Moving Around Current Status (G8978): CK (01/31/18 1305)Mobility: Walking and Moving Around Goal Status (G8979): CJ (01/31/18 1305)Based on clinical assessment and the score on the 6 Clicks Functional AssessmentTool, the G code and corresponding severity modifiers are documented above.SUBJECTIVE:Current Hospital Course: Chart reviewed; CHIEF COMPLAINT: Neck painHPI: This is a 62 year old female who presents with cervical myopathy. Patientreports neck pain started about 3 weeks ago. She went to see her PCP who gaveher prednisone for 2 weeks but there was no improvement. Continued to havingnumbness in bilateral hands and in both legs at times. She went back to followup with her doctor who sent her to the hospital for further evaluation. Reportsno trauma but has had some falls recently. Uses a cane usually at home butlately has been having trouble due to numbness in her arms.Denies any bowel orbladder changes but does report having bladder fullness.Reason for Physical Therapy Consult : Safety assessmentRelevant Past Medical History: cervical myopathy; frequent fallsPatient Report: Pt agreeable to PT. Nursing states ok to see pt.Home EnvironmentPatient Lives With: Family (niece, who works)Assistance Available: Part timeEntry To Home: Stairs;With RailNumber Of Stairs Into Home: 3Number Of Stairs To Bed/Bath: 0Tub/Shower Type: tub showerLaundry: first floor-pt completedEquipment Owned: Cane;Grab Bars-Shower;RollatorPrior Functional Level: Within Functional Limits;Required AssistanceAssistance Required With: Cleaning;Laundry;MealsPrio r Functional Level Comments: pt working full timeOBJECTIVE:CURRENT FUNCTIONAL STATUS:Current Functional Mobility Assist Level Additional InformationRollingSupine to Sit SupervisionSit to Supine (Pt up in chair post session)Scooting SupervisionSit to Stand Minimal AssistanceStand to Sit Minimal AssistanceBed to Chair Minimal AssistanceBed To Chair Transfer Equipment: Wheeled WalkerToilet/Commode Contact Guard AssistanceGait Minimal Assistance Gait Device: Wheeled Walker Gait Distance (feet): 10 x 2StairsCurb StepCar TransferGeneral Gait Deviations: Veronica decreased;Step length decreased;Flexed trunkposture (Increased knee flexion)Balance: Static Sitting;Dynamic Sitting;Static Standing;Dynamic StandingStatic Sitting Balance: IndependentDynamic Sitting Balance: SupervisionStatic Standing Balance: Contact Guard AssistanceDynamic Standing Balance: Minimal Assistance-HLM: 6: Walk 10 steps or morePlease see discipline specific clinical documentation flowsheet for completedetails for this therapy evaluation/treatment.TINO NARAYAN: Tabby Costa PT PATIENT NAME: Sonia HemphillueDATE: January 31, 2018 : 3:14 Payton Montiel RN, RN 01/31/2018 9:06 PM Addendum Nursing Progress NotePatient Name: Sonia KarimiMRN: [id number] [id number] Daily Note:1924 Assumed care, report from outgoing RN at the bedside. Call light withinreach, bed alarm activated.2105 VS and assessment as charted. AANDOx3, denies chest pain, SO, headache,dizziness. Reports n/t to BUE and BLE. Pain board reviewed/updated, verbalizesunderstanding. Call light and possessions within reach. Will continue tomonitor.This note was completed by: Karime Montiel, Juany Gonzalez, RN, RN 02/01/2018 3:08 AM Addendum Nursing Progress NotePatient Name: Sonia KarimiMRN: [id number] Location: [place] [address]/[id number] 2345-Bedside report received. Bipap on and qeneddw2345-Ez made NPO. IVF started. Pt AANDOX3, denies chest pain, SOB, or dizziness.Pt c/o numbness/tingling to BUE. Hand grasps, pedal push/pulls are strong andequal. Call light in reach, bed alarm onThis note was completed by: Juany Pedersen PT 02/01/2018 6:15 AM SignedPHYSICAL THERAPY MISSED VISITSERVICE DATE: 02/01/2018SERVICE TIME: 06 to 06ROOM: [id number] Treatment. Patient not seen due to Surgery. Pt on for surgery thisdate. WIll hold follow up visit and plan for re-evaluation on 02/02/18 postsurgical intervention.SIGNATURE: Carlos Kus, PT PATIENT NAME: Sonia RochaATE: February 01, 2018 : 6:14 AMTomeghana Hayes MD 02/01/2018 8:04 AM SignedAVSSneurologically no changes.Pre op medical clearanceSurgery AM 02/02/18MARCELLUS Dow MD 02/01/2018 6:02 PM SignedPROGRESS NOTE - INTERNAL MEDICINEPATIENT NAME: Sonia KarimiMRN: [id number] PHYSICIAN: Francisco TaylorUBJECTIVEINTERVAL HISTORY OF PRESENT ILLNESS: Patient sitting up in bed wanting a showerand something else for neck pain. Currently just has norco at night. Alsoreports not having a bowel movement since being here but is passing gas.OBJECTIVEPHYSICAL EXAM:BP 131/70 Pulse 64 Temp 36.9 ?C (98.4 ?F) (Oral) Resp 16 Ht 167.6 cm(5' 6) Wt 125.9 kg (277 lb 9 oz) SpO2 99% BMI 44.80 kg/m?Intake/Output Summary (Last 24 hours) at 02/01/18 0819Last data filed at 02/01/18 0500 Gross per 24 hourIntake 1310 mlOutput 250 mlNet 1060 mlGENERAL: Alert, no acute distress, cooperative, obeseSKIN: Skin color, texture, turgor normal. No rashes or lesions.NECK: No jugulovenous distention, Supple, decreased ROMLUNGS: Lungs clear to auscultation, Good diaphragmatic excursionCARDIAC: Normal S1 and S2; no rubs, murmurs, or gallopsABDOMEN: Abdomen soft, non-tender, BS normal b5AFBRPUYITBR: No LE edemaNEURO: AANDOx3, Non-focal sensation intact B?L upper and lower extremities, 5/5strength upper and lower extremitiesPULSES: 2+ radial, 2+ carotidDATA:Diagnostic tests reviewed for today's visit:Most recent labsMost recent imagingCBC, Coags, BMP, Mg, PhosRecent Labs 01/31/1819WBC 10.21 -- 14.93*HB 11.6 -- 12.2HCT 36.7 -- 37.1PLT 223 -- 259APTT -- 25.4 --NA 138 -- 141K 4.2 -- 3.5*CHLOR 99 -- 101CO2 27 -- 25BUN 20 -- 26*CREAT 0.81 -- 0.92GLUC 113* -- 164*CA 9.9 -- 9.6Liver Function, Amylase, AND LipaseCardiac EnzymesRecent Labs 01/30/720209WV 102ASSESSMENT AND PLANCervical myopathy [G72.9]- MRI spine: cord compression- Neurosurgery consulted- gabapentin, norcoBladder fullness- check UA for UTI- UA positive for WBC, checking urine cultureHTN- c/w amlodipine, maxzideHLD: statinThyroid mass- noted on MRI- thyroid US: benign nodulesHypokalemia- replete, monitorOSA- CPAPObesityDVT prophylaxis- SCDsSurgery was planned today but moved to tomorrowConstipation: added colaceAdded tylenol and lidocaine patch for painSIGNATURE: Mandie Aguilar APRN.CNPDATE: February 01, 2018TIME: 8:19 AMCONTACT #: [phone] have reviewed the progress note obtained and documented by the Certified NursePractitioner, and I personally participated in the rosario components. I havediscussed the case and management of the patient's care. The following commentsrevise or confirm relevant rosario components of the Certified Nurse Practitioner'snote.Waiting on being scheduled for ORSyed Paloma, MDPrevious VersionSreemare Hale MD 02/02/2018 11:50 AM Addendum ANESTHESIOLOGY PREOPERATIVE ASSESSMENTSERVICE DATE: 02/01/2018 : 1953SERVICE TIME: 10:13 AMSurgeon(s):Latrice HayesProcedure(s) (LRB):DISCECTOMY CERVICAL ANTERIOR WITH FUSION (N/A)Estimated body mass index is 44.8 kg/m? as calculated from the following: Height as of this encounter: 167.6 cm (5' 6). Weight as of this encounter: 125.9 kg (277 lb 9 oz).MOST RECENT HEMATOCRIT AND POTASSIUM RESULTS:Hematocrit 36.7 02/01/2018Potassium 4.2 02/01/2018ANES DOS/PREOP NOTE:Vitals: 622 0502/01/1800752BP: (!) 109/16 149/54 137/62 131/70Pulse: 66 81 60 64Resp: 18 18 18 16Temp: 37.1 ?C (98.7 ?F) 36.8 ?C (98.3 ?F) 36.7 ?C (98 ?F) 36.9 ?C (98.4 ?F)TempSrc: Oral Oral Oral OralSpO2: 97% 97% 97% 99%Weight:Height:ACTIVE PROBLEM LISTEssential HypertensionCervical PolypHyperlipidemiaOsteoar thritis of Both KneesSleep ApneaObesity, Class Iii, Bmi 40-49.9 (Morbid Obesity) (Hcc)Cervical MyopathyCervical Spondylosis With MyelopathyPAST MEDICAL HISTORYDiagnosis Date- Cervical polyp- COPD (chronic obstructive pulmonary disease) (HCC)- Hyperlipidemia- Hypertension- Minor depressionPAST SURGICAL HISTORYProcedure Laterality Date- REMOVAL ADENOIDS,PRIMARY,<12 Y/O Adenoidectomy- REMOVAL OF TONSILS,<12 Y/O TonsillectomyFAMILY HISTORYProblem Relation Age of Onset- Cancer Father leukemia- Cancer Mother skin cancer- Cancer Paternal Grandfather stomach cancer- Cancer Paternal Grandmother colon to liver- Cancer Sister cancer in situ - breast- Diabetes Father- Diabetes Sister- Heart Mother tachycardiaSocial History:Social HistorySubstance Use Topics- Smoking status: Former Smoker- Smokeless tobacco: Never Used Comment: Quit smokig 38 years ago- Alcohol use NoNo current facility-administered medications on file prior to encounter.Current Outpatient Prescriptions on File Prior to Encounter:amLODIPine (NORVASC) 5 mg tablet Take 1 tablet by mouth once daily.atorvastatin (LIPITOR) 10 mg tablet Take 1 tablet by mouth once daily.cholecalciferol (VITAMIN D-3) 2,000 unit tablet Take 2,000 Units by mouth oncedaily.cloNIDine HCl (CATAPRES) 0.1 mg tablet Take 1 tablet by mouth daily at bedtime.COMPOUNDED PRESCRIPTION BIPAP 1 liter bleed in 12/5 cm. RR 14Replacementmachine with heated humidity. CPAP mask and supplies.Use nightly.diclofenac XR (VOLTAREN-XR) 100 mg Tb24 TAKE 1 TABLET DAILY WITH FOODgabapentin (NEURONTIN) 100 mg capsule TAKE 2 CAPSULES BY MOUTH TWICE A SVGESFTGEAP-[id number]-[id number]- VIT D3 ORAL Take 3 tablets by mouth once daily.HYDROcodone-acetamin ophen (NORCO) 5-325 mg per tablet Take 1 tablet by mouth atbedtime as needed for up to 30 days.Earliest Fill Date: 08/29/17HYDROcodone-acetami nophen (NORCO) 5-325 mg per tablet Take 1 tablet by mouth atbedtime as needed for up to 30 days.MULTIVIT WITH IRON-MINERALS (MULTIVITAMIN AND MINERALS ORAL) Take 1 tablet bymouth once daily.predniSONE (DELTASONE) 10 mg tablet Please take 3 pills twice daily for 3 days,then 2 pills twice daily for 3 days, then 1 pill twice daily for 3 days, then 1pill daily till gone. (Patient not taking: Reported on 01/30/2018)sertraline (ZOLOFT) 100 mg tablet Take 1 tablet by mouth once daily.triamterene-hydrochl orothiazide 37.5-25 mg per capsule Take 1 capsule by mouthonce daily.Current Facility-Administered Medications:acetaminophen 1,000 mg tab(s) (TYLENOL) 1,000 mg ORAL q 6 H PRN Francisco P Ashrafacetaminophen 650 mg tab(s) (TYLENOL) 650 mg ORAL q 4 H PRN Mandie ([employer])GriffinamLODIPin e 2.5 mg tab(s) (NORVASC) 2.5 mg ORAL DAILY Francisco P Ashrafatorvastatin 10 mg tab(s) (LIPITOR) 10 mg ORAL DAILY Mandie ([employer]) Xvxtmvt00 mg at 01/31/18 1146cloNIDine HCl 0.1 mg tab(s) (CATAPRES) 0.1 mg ORAL AT BEDTIME Francisco P Paloma 0.1mg at 01/31/18 2100docusate sodium 100 mg cap(s) (COLACE) 100 mg ORAL BID Mandie ([employer])Griffingabapenti n 200 mg cap(s) (NEURONTIN) 200 mg ORAL BID Francisco P Paloma 200 mg at104/03/17 2100HYDROcodone 5 mg - acetaminophen 325 mg tablet (NORCO) 1 tablet ORAL HS PRN SyedP Paloma 1 tablet at 01/31/182099lidocaine - VERIFY PATCH OTHER q 8 H Mandie ([employer]) Griffinlidocaine 5 % 1 Patch (LIDODERM) 1 Patch TRANSDERMAL DAILY Mandie ([employer])Griffinlidocaine patch - REMOVE OTHER AT BEDTIME Mandie ([employer]) GriffinNaCl 0.9% iv infusion 75 mL/hr INTRAVENOUS CONTINUOUS [place] (Res) Sarmey LastRate: 75 mL/hr at 02/01/18 0018 75 mL/hr at 02/01/18 0018sertraline 100 mg tab(s) (ZOLOFT) 100 mg ORAL DAILY (8 PM) Francisco P Paloma 100 mgat 01/31/181Allergies:ALLERGIESAll ergen Reactions- Ativan [Lorazepam] Hives- Neosporin [Benzalko* RashREVIEW OF SYSTEMS: REVIEW OF SYSTEMS: As stated in Active Problem List/ PastMedical HistoryANESTHESIOLOGY REVIEW:Airway Assessment: MP 1; Neck ROM: Limited Extension and Parasthesia withFlexion and Extension (bilateral upper and lower extremity numbness); AirwayEvaluation: No significant abnormalitiesSymptoms of Sleep Apnea: IRIS, uses biPAPIntubation History: No previous history of difficult intubationDentition: Missing tooth several molarsADDITIONAL PHYSICAL EXAM:Lungs: Patient health status unchanged since recent history and physical. Seehistory and physical for exam findings.Cardiac: Patient health status unchanged since recent history and physical. Seehistory and physical for exam findings.Additional Pertinent Findings: N/AADVERSE ANESTHESIA EVENT: No history of adverse eventFAMILY HIISTORY OF ANESTHESIA: No known issuesBLOOD PRODUCTS: Will accept Blood/Blood ProductsOTHER MEDICAL PROBLEMS: pt morbidly obese, pt has a hx of mild aortic stenosison ECHO from 2014. Primary care dr ordered yearly follow-up, pt noncompliant. Baldo said it's ok to proceed without follow-up Echo.Pt stopped 2-week trial of prednisone on Monday.I have interviewed and examined the patient. I have reviewed the medical recordand/or the pre-anesthesia evaluation, pertinent labs, and test results.Significant changes in the patient's condition since the History and Physical,not otherwise documented in primary service progress notes: NoAnesthetic risks, benefits, alternatives, personnel and consent discussed: YesANES REVIEW: This contains updated information obtained within 48 hours ofSurgery/Procedure.WBC (k/uL)Date Value02/01/2018 10.21RBC (m/uL)Date Value02/01/2018 4.39Hemoglobin (g/dL)Date Value02/01/2018 11.6Hematocrit (%)Date Value02/01/2018 36.7MCV (fL)Date Value02/01/2018 83.6MCH (pG)Date Value02/01/2018 26.4MCHC (g/dL)Date Value02/01/2018 31.6RDW-CV (%)Date Value02/01/2018 13.7Platelet Count (k/uL)Date Value02/01/2018 223MPV (fL)Date Value02/01/2018 9.5Glucose (mg/dL)Date Value02/01/2018 113 (H)BUN (mg/dL)Date Value02/01/2018 20Creatinine (mg/dL)Date Value02/01/2018 0.81Sodium (mmol/L)Date Value02/01/2018 138Potassium (mmol/L)Date Value02/01/2018 4.2Chloride (mmol/L)Date Value02/01/2018 99CO2 (mmol/L)Date Value02/01/2018 27Calcium (mg/dL)Date Value02/01/2018 9.9EKG:Procedure Date : Jan 31 2018 18:50:24Edit Date : Feb 01 2018 09:41:50Diagnosis:SINUS RHYTHM WITH MARKED SINUS ARRYTHMIAOTHERWISE NORMAL ECGWHEN COMPARED WITH ECG OF 16-FEB-2004 10:32,NO SIGNIFICANT CHANGE WAS FOUNDConfirmed by NERISSA CARMICHAEL M.D. ([id number]) on 02/01/2018 9:41:48 AMVentricular Rate : 69 ?BPMAtrial Rate : 69 ?BPMECHO:pendingCONCLUSION S:- Technically difficult exam due to body habitus.- Exam indication: Routine surveillance of valve stenosis- The left ventricle is normal in size.Left ventricular systolic function ishyperdynamic. EF = 75 ? 5% (2D biplane) Baseline left ventricular diastolicfunction is consistent with abnormal relaxation (stage 1).- The right ventricle is normal in size. Right ventricular systolic function isnormal.- The left atrial cavity is mildly dilated. (39 cc/m?)- There is mild aortic stenosis (Vmax 2.1 m/s)- Prior echocardiogram performed on 04/09/2012. No significant change.? SIGNATURE: BARB Chand PATIENT NAME: Sonia HemphillueDATE: February 01, 2018 : 10:13 AM PAGER/CONTACT #:Previous Navya Lema RN, RN 02/01/2018 4:59 PM Addendum Nursing Progress NotePatient Name: Sonia KarimiMRN: [id number] Location: [place] [address] [address]-2 Daily Note:0745 Pt alert and oriented X 3. States pain to posterior neck. and JADE Ashley in. Deferred to attending. Pt states N/T to BUE and BLE.NPO for OR. Assessment as charted.This note was completed by: Vika Lema RN0810 Pt seen by Adry Morin CNP. Orders received.1043 Medicated with 1000 mg tylenol for posterior neck pain.1643 Medicated with 1000 mg Tylenol. No change in assessment.Previous Schuyler Ward RN, RN 02/01/2018 2:02 PM SignedCARE MANAGEMENT PROGRESS NOTESERVICE DATE: 02/01/2018SERVICE TIME: 2:00 PM LOS: 2 daysFREEDOM OF CHOICE GIVEN:Yes 02/01/2018Financial Disclosure ProvidedThe patient and/or family has been given the Provider List: YesProvider List: Rehab FacilityMet with patient at bedside. Discussed possible discharge needs. Patient statesshe does not want to go to rehab facility and prefers to go home with hometherapy. Patient states she has family that can assist her at home. Surgery isplanned for tomorrow and will need therapy evaluations post op. [facility] Will follow.SIGNATURE: Ivana Ward RN PATIENT NAME: Sonia HemphillueDATE: February 01, 2018 : 2:00 PM PAGER/CONTACT #: [phone] 02/01/2018 3:19 PM Attested Attestation signed by Jadon Gaona IV at 02/01/2018 4:22 PMStaff NoteI have reviewed pertinent medical records/tests regarding this patient. Agreewith the anesthesia provider's assessment and plan.Jadon Gaona IV [facility] 20174:22 PM ---- ANESTHESIOLOGY PREOPERATIVE ASSESSMENTSERVICE DATE: 02/01/2018 : 1955SERVICE TIME: 152Surgeon(s):Latrice HayesProcedure(s) (LRB):DISCECTOMY CERVICAL ANTERIOR WITH FUSION (N/A)Estimated body mass index is 44.8 kg/m? as calculated from the following: Height as of this encounter: 167.6 cm (5' 6). Weight as of this encounter: 125.9 kg (277 lb 9 oz).MOST RECENT HEMATOCRIT AND POTASSIUM RESULTS:Hematocrit 36.7 02/01/2018Potassium 4.2 02/01/2018CBC with diff:WBC 10.21 02/01/2018RBC 4.39 02/01/2018Hemoglobin 11.6 02/01/2018Hematocrit 36.7 12/20/2018MCV 83.6 02/01/2018MCH 26.4 02/01/2018MCHC 31.6 02/01/2018RDW-CV 13.7 02/01/2018Platelet Count 223 02/01/2018MPV 9.5 02/01/2018Neut% 73.1 02/01/2018Lymph% 17.1 02/01/2018Mono% 6.6 02/01/2018Eosin% 2.9 02/01/2018Baso% 0.3 02/01/2018Abs Neut (ANC) 7.46 02/01/2018Abs [place] 0.67 02/01/2018Abs Eosin 0.30 02/01/2018Abs Baso 0.03 02/01/2018Glucose (mg/dL)Date Value02/01/2018 113 Potassium (mmol/L)Date Value02/01/2018 4.2 Sodium (mmol/L)Date Value02/01/2018 138 Chloride (mmol/L)Date Value02/01/2018 99 CO2 (mmol/L)Date Value02/01/2018 27 Creatinine (mg/dL)Date Value02/01/2018 0.81 BUN (mg/dL)Date Value02/01/2018 20 Anion Gap (mmol/L)Date Value02/01/2018 12 Calcium (mg/dL)Date Value02/01/2018 9.9 ANES DOS/PREOP NOTE:Vitals: 02/01/1820752BP: (!) 109/16 149/54 137/62 131/70Pulse: 66 81 60 64Resp: 18 18 18 16Temp: 37.1 ?C (98.7 ?F) 36.8 ?C (98.3 ?F) 36.7 ?C (98 ?F) 36.9 ?C (98.4 ?F)TempSrc: Oral Oral Oral OralSpO2: 97% 97% 97% 99%Weight:Height:ACTIVE PROBLEM LISTEssential HypertensionCervical PolypHyperlipidemiaOsteoar thritis of Both KneesSleep ApneaObesity, Class Iii, Bmi 40-49.9 (Morbid Obesity) (Hcc)Cervical MyopathyCervical Spondylosis With MyelopathyPAST MEDICAL HISTORYDiagnosis Date- Cervical polyp- COPD (chronic obstructive pulmonary disease) (HCC)- Hyperlipidemia- Hypertension- Minor depressionPAST SURGICAL HISTORYProcedure Laterality Date- REMOVAL ADENOIDS,PRIMARY,<12 Y/O Adenoidectomy- REMOVAL OF TONSILS,<12 Y/O TonsillectomyFAMILY HISTORYProblem Relation Age of Onset- Cancer Father leukemia- Cancer Mother skin cancer- Cancer Paternal Grandfather stomach cancer- Cancer Paternal Grandmother colon to liver- Cancer Sister cancer in situ - breast- Diabetes Father- Diabetes Sister- Heart Mother tachycardiaSocial History:Social HistorySubstance Use Topics- Smoking status: Former Smoker- Smokeless tobacco: Never Used Comment: Quit smokig 38 years ago- Alcohol use NoNo current facility-administered medications on file prior to encounter.Current Outpatient Prescriptions on File Prior to Encounter:amLODIPine (NORVASC) 5 mg tablet Take 1 tablet by mouth once daily.atorvastatin (LIPITOR) 10 mg tablet Take 1 tablet by mouth once daily.cholecalciferol (VITAMIN D-3) 2,000 unit tablet Take 2,000 Units by mouth oncedaily.cloNIDine HCl (CATAPRES) 0.1 mg tablet Take 1 tablet by mouth daily at bedtime.COMPOUNDED PRESCRIPTION BIPAP 1 liter bleed in 12/5 cm. RR 14Replacementmachine with heated humidity. CPAP mask and supplies.Use nightly.diclofenac XR (VOLTAREN-XR) 100 mg Tb24 TAKE 1 TABLET DAILY WITH FOODgabapentin (NEURONTIN) 100 mg capsule TAKE 2 CAPSULES BY MOUTH TWICE A SALTSXCCEBK-MLP-ANEOPMWCS- VIT D3 ORAL Take 3 tablets by mouth once daily.HYDROcodone-acetamin ophen (NORCO) 5-325 mg per tablet Take 1 tablet by mouth atbedtime as needed for up to 30 days.Earliest Fill Date: 08/29/17HYDROcodone-acetami nophen (NORCO) 5-325 mg per tablet Take 1 tablet by mouth atbedtime as needed for up to 30 days.MULTIVIT WITH IRON-MINERALS (MULTIVITAMIN AND MINERALS ORAL) Take 1 tablet bymouth once daily.predniSONE (DELTASONE) 10 mg tablet Please take 3 pills twice daily for 3 days,then 2 pills twice daily for 3 days, then 1 pill twice daily for 3 days, then 1pill daily till gone. (Patient not taking: Reported on 01/30/2018)sertraline (ZOLOFT) 100 mg tablet Take 1 tablet by mouth once daily.triamterene-hydrochl orothiazide 37.5-25 mg per capsule Take 1 capsule by mouthonce daily.Current Facility-Administered Medications:acetaminophen 1,000 mg tab(s) (TYLENOL) 1,000 mg ORAL q 6 H PRN Francisco P Ashraf1,000 mg at 02/01/18 1043acetaminophen 650 mg tab(s) (TYLENOL) 650 mg ORAL q 4 H PRN Mandie ([employer])GriffinamLODIPin e 2.5 mg tab(s) (NORVASC) 2.5 mg ORAL DAILY Francisco P Paloma 2.5 mg at104/04/17 1044atorvastatin 10 mg tab(s) (LIPITOR) 10 mg ORAL DAILY Mandie ([employer]) Gibtwow91 mg at 02/01/18 1044cloNIDine HCl 0.1 mg tab(s) (CATAPRES) 0.1 mg ORAL AT BEDTIME Francisco P Paloma 0.1mg at 01/31/18 2100docusate sodium 100 mg cap(s) (COLACE) 100 mg ORAL BID Mandie ([employer])Jeff 100 mg at 02/01/18 1044gabapentin 200 mg cap(s) (NEURONTIN) 200 mg ORAL BID Francisco P Paloma 200 mg at104/04/17 1044HYDROcodone 5 mg - acetaminophen 325 mg tablet (NORCO) 1 tablet ORAL HS PRN SyedP Paloma 1 tablet at 01/31/18 2100lidocaine - VERIFY PATCH OTHER q 8 H Mandie ([employer]) Griffinlidocaine 5 % 1 Patch (LIDODERM) 1 Patch TRANSDERMAL DAILY Mandie ([employer])Jeff 1 Patch at 02/01/18 1041lidocaine patch - REMOVE OTHER AT BEDTIME Mandie ([employer]) GriffinNaCl 0.9% iv infusion 75 mL/hr INTRAVENOUS CONTINUOUS [place] (Res) Ashley LastRate: 75 mL/hr at 02/01/18 1446 75 mL/hr at 02/01/18 1446sertraline 100 mg tab(s) (ZOLOFT) 100 mg ORAL DAILY (8 PM) Francisco P Paloma 100 mgat 01/31/18 2111Allergies:ALLERGIESAll ergen Reactions- Ativan [Lorazepam] Hives- Neosporin [Benzalko* RashREVIEW OF SYSTEMS: REVIEW OF SYSTEMS: As stated in Active Problem List/ PastMedical HistoryANESTHESIOLOGY REVIEW:Airway Assessment: MP 1; Neck ROM: Limited Flexion and Extension and Parasthesiawith Flexion and Extension; Airway Evaluation: Short Neck and Thick neckSymptoms of Sleep Apnea: OSAIntubation History: No previous history of difficult intubationDentition: Missing tooth multiple molarsADDITIONAL PHYSICAL EXAM:Lungs: Patient health status unchanged since recent history and physical. Seehistory and physical for exam findings.Cardiac: Patient health status unchanged since recent history and physical. Seehistory and physical for exam findings.Additional Pertinent Findings: N/AADVERSE ANESTHESIA EVENT: No history of adverse eventFAMILY HIISTORY OF ANESTHESIA: No known issuesBLOOD PRODUCTS: Will accept Blood/Blood ProductsOTHER MEDICAL PROBLEMS: Pt stopped steroids about 2 weeks agoI have interviewed and examined the patient. I have reviewed the medical recordand/or the pre-anesthesia evaluation, pertinent labs, and test results.Significant changes in the patient's condition since the History and Physical,not otherwise documented in primary service progress notes: NoAnesthetic risks, benefits, alternatives, personnel and consent discussed: YesANES REVIEW: This contains updated information obtained within 48 hours ofSurgery/Procedure.EKGCON CLUSIONS:- Technically difficult exam due to body habitus.- Exam indication: Routine surveillance of valve stenosis- The left ventricle is normal in size.Left ventricular systolic function ishyperdynamic. EF = 75 ? 5% (2D biplane) Baseline left ventricular diastolicfunction is consistent with abnormal relaxation (stage 1).- The right ventricle is normal in size. Right ventricular systolic function isnormal.- The left atrial cavity is mildly dilated. (39 cc/m?)- There is mild aortic stenosis (Vmax 2.1 m/s)- Prior echocardiogram performed on 04/09/2012. No significant change.?EKGNAME : SONIA KARIMIPID : [id number] : 1955Gender : FemaleRace : CaucasianORD : [id number]?Procedure Date : Jan 31 2018 18:50:24Edit Date : Feb 01 2018 09:41:50?Diagnosis:SINUS RHYTHM WITH MARKED SINUS ARRYTHMIAOTHERWISE NORMAL ECGWHEN COMPARED WITH ECG OF 16-FEB-2004 10:32,NO SIGNIFICANT CHANGE WAS FOUNDConfirmed by JANY William, NERISSA ([id number]) on 02/01/2018 9:41:48 AM?Ventricular Rate : 69 ?BPMAtrial Rate : 69 ?BPMP-R Interval : 152 ?msQRS Duration : 80 ?msQ-T Interval : 390 ?msQTC Calculation(Bezet) : 417 ?msP Shelby : 74 ?degreesR Shelby : 42 ?degreesT Shelby : 36 ?degrees?Test Reason : Pre OP?Location : [facility] : 4B ?466?Overread By : JANY William,AMIREdited By : JANY William,AMIRReferred By : JESI DOWcquired by : VENU HILLIARD CHARISSIGNATURE: BARB Estevez PATIENT NAME: Sonia Lozoya DerueDATE: February 01, 2018 : 3:16 PM PAGER/CONTACT #:Peg Duran, RN, RN 02/02/2018 12:26 AM Addendum Nursing Progress NotePatient Name: Sonia KarimiMRN: [id number] [facility]4B-466/BD-4L-515-2 Daily Note:1952 Pt up to the chair, up with assist x2. Assessment performed and documentedat this time. Pt reports chronic numbness and tingling to her all extremities.Safety measures reviewed with Pt, call light within a reach, will continue tomonitor.0000 Prior assessment unchanged, Pt made NPO to procedure in AM. IV fluidsinfusing, Pt resting, will continue to monitor.This note was completed by: Peg Duran, RNPredilan Srivastava Donnellson, PT 02/02/2018 7:42 AM IncompletePhysical Therapy Re-EvaluationSERVICE DATE: 02/02/2018SERVICE TIME: 612 to 612ROOM: [id number] Discharge Disposition: Acute RehabRecommended Discharge Disposition Comments: Rec AR to maximize functionalmobility and safetyJustification For Post Acute Needs: Anticipate that patient will require daily(5x/wk) skilled therapy in a post-acute facility setting at the time of acutehospital discharge;Anticipate patient will tolerate 3 hours of daily therapy atthe time of admission to post-acute settingRecommended Discharge Equipment: No equipment needs anticipatedPT Recommendations to Nursing: Ambulate with device;Transfer to/from chair;OOBfor Meals;With assist of 2 peopleDevice: Wheeled WalkerPT 6 Clicks Score: 19Precautions/Activity Restrictions: Fall RiskASSESSMENT :Patient presents with . Requires skilled PT for .Patient Disposition at Start of Session: Supine in Bed;Call Chan in ReachPatient Disposition at End of Session: OOB in Chair;Call Chan in Reach (RNstates no need for chair alarm )Tolerated Full SessionPhysical Therapy Problem List: Balance Impaired;Functional MobilityImpairment;Decreas ed Strength;Decreased Range Of Motion;Decreased ActivityTolerance;Impaired Self Care;Safety Deficits;PainPatient /Caregiver Goals: Go HomeGoals for Plan of Care:Able to perform HEP with: Verbal Cues OnlyTransfer supine to/from sit with: Modified IndependentTransfer sit to/from stand with: Modified IndependentAmbulate with: Modified IndependentDistance: 50Device: Wheeled WalkerAmbulate up and down steps with: Contact Guard AssistanceNumber of steps: 3Device: RailTransfer: All functional transfers with mod IRehab Potential: GoodPLAN:Treatment Frequency (times per week): 7Treatment Duration (number): (as able LOS) Current admissionTreatment Interventions: Education;Self Care / Home Management;EnergyConservat ion Training;Joint Mobility;Strengthening;Fun ctional MobilityTraining;Balance Training;Neuromuscular Re-educationPlan of Care developed with: PatientTREATMENT INTERVENTIONS:Therapy Diagnosis: Reduced mobility-other;Decreased activities of daily living(ADL);Muscle Weakness (generalized)Interventions Provided: Evaluation;Therapeutic Activity (34101);Gait Training(02272){Physical Therapy Interventions:969091}Total Timed Code Treatment Minutes: 23Total Treatment Time (minutes): 30{PT GCODE:771412}SUBJECTIVE:[facility] Course:Pt is a 62 yo female with progressive cervical myelopathy over last 2 weeks,unable to use arms/hands.Deltoid 2/5, left biceps tricep 2/5, right biceps triceps 3/5, hand intrinsics2/5.?MRI cervical- C4-5 autofusion, C3-4 instability, spinal cord compression,myelomalacia.P t is now POD #1 ACDF C3-4.Reason for Physical Therapy Consult : Safety assessmentRelevant Past Medical History: cervical myopathy; frequent fallsPatient Report: Home EnvironmentPatient Lives With: Family (niece, who works)Assistance Available: Part timeEntry To Home: Stairs;With RailNumber Of Stairs Into Home: 3Number Of Stairs To Bed/Bath: 0Tub/Shower Type: tub showerLaundry: first floor-pt completedEquipment Owned: Cane;Grab Bars-Shower;RollatorPrior Functional Level: Within Functional Limits;Required AssistanceAssistance Required With: Cleaning;Laundry;MealsPrio r Functional Level Comments: pt working full timeOBJECTIVE:CURRENT FUNCTIONAL STATUS:Current Functional Mobility Assist Level Additional InformationRollingSupine to Sit SupervisionSit to Supine (Pt up in chair post session)Scooting SupervisionSit to Stand Minimal AssistanceStand to Sit Minimal AssistanceBed to Chair Minimal AssistanceBed To Chair Transfer Equipment: Wheeled WalkerToilet/Commode Contact Guard AssistanceGait Minimal Assistance Gait Device: Wheeled Walker Gait Distance (feet): 10 x 2StairsCurb StepCar TransferGeneral Gait Deviations: Veronica decreased;Step length decreased;Flexed trunkposture (Increased knee flexion)Balance: Static Sitting;Dynamic Sitting;Static Standing;Dynamic StandingStatic Sitting Balance: IndependentDynamic Sitting Balance: SupervisionStatic Standing Balance: Contact Guard AssistanceDynamic Standing Balance: Minimal AssistanceJ-HLM: 6: Walk 10 steps or morePlease see discipline specific clinical documentation flowsheet for completedetails for this therapy evaluation/treatment.SIGNA TURE: Ashlee Marie PT PATIENT NAME: Sonia RochaATE: February 02, 2018 : 7:42 Anjali Lema RN, RN 02/02/2018 11:42 AM Addendum Nursing Progress NotePatient Name: Sonia KarimiMRN: [id number] Location: [place] [address] [address] Daily Note:0834 Pt alert and oriented X 3. States posterior neck pain 8-9.Medicated with 1000 mg tylenol with sips H2O. Continues to c/o numbness andtingling to BUE and BLE. Gait unsteady. Using BSC with assist for voids.IVfluids infusing. Assessment as charted.This note was completed by: Vika Lema, [id number] Report given to Delilah in armida-op.1135 Out via bed to armida-op.Previous VersionLatrice Hayes MD 02/02/2018 11:17 AM SignedUPDATED HISTORY AND PHYSICAL EXAMINATIONSERVICE DATE: 02/02/2018SERVICE TIME: 11:17 AMPHYSICAL EXAM MUST BE COMPLETED ON ADMISSIONThe History and Physical (completed in the past 30 days) has been reviewed andthe patient has been examined. The contents accurately reflect the patient'scondition with the following additions or revisions since the HANDP was completed.Examination indicates no changes.This HANDP can be found in the attached.SIGNATURE: Latrice Hayes MD PATIENT NAME: Sonia RochaATE: February 02, 2018 : 11:17 AM PAGER:[phone] Hale MD 02/02/2018 11:52 AM SignedI attest the above information is accurate including:Chronic Beta Gerardo medication administered within 24 hours: N/AAdequate NPO status: YesAnesthetic risks, benefits, alternatives, personnel and consent discussed. YesPatient agrees to proceed. YesPain Management Plan: Parenteral or OralASA Class: 3Anesthetic Plan: General; Standard ASA MonitorsAdditional comments:Yaritza Hale, [facility] 2017Sapauline Marie PT 02/02/2018 11:52 AM SignedPHYSICAL THERAPY MISSED VISITSERVICE DATE: 02/02/2018SERVICE TIME: 1140 to 1140ROOM: [id number] Treatment. Patient not seen due to Surgery. Pt currently off the floorfor Sx. Another attempt will be made to see this pt tomorrow for PT Re-Eval ifpt is appropriate and as schedule allows.SIGNATURE: Ashlee Marie PT PATIENT NAME: Sonia Lozoya DerueDATE: February 02, 2018 : 11:51 AMSyetessa Dow MD 02/02/2018 12:03 PM SignedPROGRESS NOTE - INTERNAL MEDICINEPATIENT NAME: Sonia HemphillueMRN: [id number] PHYSICIAN: Franicsco TaylorUBJECTIVEINTERVAL HISTORY OF PRESENT ILLNESS: Patient sitting up in bed. Reportslidocaine patch and tylenol has helped her pain. Reports having a BM and waitingto have surgery around 11 am.OBJECTIVEPHYSICAL EXAM:BP 162/77 Pulse 64 Temp (!) 7 ?C (44.6 ?F) Resp 16 Ht 167.6 cm (5'6) Wt 125.9 kg (277 lb 9 oz) SpO2 98% BMI 44.80 kg/m?Intake/Output Summary (Last 24 hours) at 02/02/18 1159Last data filed at 02/02/18 1100 Gross per 24 hourIntake 2130 mlOutput 225 mlNet 1905 mlGENERAL: Alert, no acute distress, cooperative, obeseSKIN: Skin color, texture, turgor normal. No rashes or lesions.NECK: No jugulovenous distention, Supple, decreased ROMLUNGS: Lungs clear to auscultation, Good diaphragmatic excursionCARDIAC: Normal S1 and S2; no rubs, murmurs, or gallopsABDOMEN: Abdomen soft, non-tender, BS normal p8ETCFPYKRSRQ: No LE edemaNEURO: AANDOx3, Non-focal sensation intact B?L upper and lower extremities, 5/5strength upper and lower extremitiesPULSES: 2+ radial, 2+ carotidDATA:Diagnostic tests reviewed for today's visit:Most recent labsMost recent imagingCBC, Coags, BMP, Mg, PhosRecent Labs 02/01/1806WBC 10.52 10.21 -- 14.93*HB 11.3* 11.6 -- 12.2HCT 35.7* 36.7 -- 37.1PLT 235 223 -- 259INR 0.9 -- -- --APTT -- -- 25.4 --NA 139 138 -- 141K 3.9 4.2 -- 3.5*CHLOR 102 99 -- 101CO2 25 27 -- 25BUN 18 20 -- 26*CREAT 0.75 0.81 -- 0.92GLUC 101* 113* -- 164*CA 9.6 9.9 -- 9.6Liver Function, Amylase, AND LipaseCardiac EnzymesRecent Labs 3CK 102ASSESSMENT AND PLANCervical myopathy [G72.9]- MRI spine: cord compression- Neurosurgery consulted- gabapentin, norco- tylenol and lidocaine patchBladder fullness- check UA for UTI- UA positive for WBC, checking urine cultureHTN- c/w amlodipine, maxzideHLD: statinThyroid mass- noted on MRI- thyroid US: benign nodulesHypokalemia- replete, monitorconstipation- c/w colaceOSA- CPAPObesityDVT prophylaxis- SCDs?Surgery was planned todaySIGNATURE: Mandie Aguilar APRN.CNPDATE: February 02, 2018TIME: 11:59 AMCONTACT #: [phone] have reviewed the progress note obtained and documented by the Certified NursePractitioner, and I personally participated in the rosario components. I havediscussed the case and management of the patient's care. The following commentsrevise or confirm relevant rosario components of the Certified Nurse Practitioner'snote.Francisco Paloma, MDPrevious VersionJose Dale OT/L 02/02/2018 12:01 PM SignedOCCUPATIONAL THERAPY MISSED VISITSERVICE DATE: 02/02/2018SERVICE TIME: 1200 to 1201ROOM: HL SURG OR POOL (HL Pre/Post 15)Attempted Evaluation (Re-Evaluation). Patient not seen due to Surgery (patientoff floor for s/x at this time. ). OT will re-attempt Re-Evaluation asappropriate. Thank you.SIGNATURE: Jose Dale OT/L PATIENT NAME: Sonia HemphillueDATE: February 02, 2018 : 12:01 PMProgress Notes ([facility]):Ramirez Fritz MD 01/30/2018 3:53 PM SignedPhysical Medicine Clinic FollowupSUBJECTIVE:Sonia Karimi a 62 year old White female [facility] a [facility] for Patient presents with:Pain: neck with radiation into arms, and bilateral legsAt the last visit the following plan of care was recommended PLAN:1) Above discussed at length with patient.2) Start prednisone 60 daily tapering off over 12 days. Advised stimulationeffects corticosteroid and advise ranitidine bid while on.3) Should start to improve 24 hours. If not improving or getting worse, patientadvised to go directly to ER for emergent evaluation4) Will order xray cerv spine and shoulder, and attempt to arrange MRI.5) refill hs norco6) Hold off on exercise program. When stable will need physical/occupationalthera py7) RTC 2 weeks. Reiterated need to seek immediate medical attention if legweakness or arms getting weaker?. Compared to last visit worse.The pain is located neck and radiates to bilateral upper extremities alonganterior aspect and posterior aspect to the level of fingersStarted 3 months ago, was not directly related to trauma, and symptoms have beenworsening.Characterize d as radiating and sharpCurrently the pain is a rated at a 6 on a scale of 0-10.Worst pain score is rated at 10 on a scale of 0-10.Best pain score is rated at 6 on a scale of 0-10.Aggravated by standing, getting up from sitting and walking.Mitigated by lying down and medications.Radiation:Yes: REVIEW OF SYSTEMS:GENERAL: No weight loss, malaise or fevers.HEENT: Negative for frequent or significant headachesNECK: positive for neck pain.RESPIRATORY: Negative for cough, wheezing or shortness of breath.CARDIOVASCULAR: Negative for chest pain, leg swelling or palpitations.GI: Negative for abdominal discomfort, blood in stools or black stools or changein bowel habitsMUSCULOSKELETAL: positive for joint painSKIN: Negative for lesions, rash, and itching.PSYCH: Negative for sleep disturbance, mood disorder and recent psychosocialstressors.MICAELA TOLOGY/LYMPHOLOGY Negative for prolonged bleeding, bruising easily orswollen nodes.NEURO: No history of headaches, syncope, paralysis, seizures or tremorsAll other reviewed and negative other than HPI.Does the patient feel safe at home YesMarybeth Gooden RNI have seen and examined the patient and confirmed the above.? The HPI wasexplored in detail with the patient.OBJECTIVE:BP 152/79 Pulse 84 Resp 18 Ht 5' 6 (1.68m) Wt 280 lb (127.0kg) BMI45.21 kg/(m2).PHYSICAL EXAMINATION:General appearance: Well appearing, in no acute distress, alertSkin: Skin color, texture, turgor normal, no rashes or lesionsCardiac: RRR, no edemaRespiratory: Respirations even and non-labored.GI: Abdomen soft and non-tender.Musculoskeletal :Neck: Pain to palpation over the cervical paraspinous muscles. Spurling positivebilateral. Llhermitte's negative. Pain with neck flexion, extension, and lateralflexion. Worst is extension with radiating painBack: Straight leg raising in the sitting and supine positions is negative toradicular pain. Mild pain to palpation over the spine or costovertebral angles.Normal range of motion without pain reproductionExtremities: Peripheral joint ROM is full and pain free without obviousinstability or laxity in all four extremities, except left shoulder. Decreasedactive and passive motion left shoulder with impingement. Hip, sacroiliacprovocative maneuvers are negative. Bony and synovial changes bilateral kneesNeuro: Cranial nerves wnl. L shoulder/elbow/wrist/hands <3/5, R side 3/5. LEs3-4/5. No clonus. Sensory loss most severe C6-7 bilateral. Reflexes dimiinishedin uppers. Able to get up with walker.ASSESSMENT: 62 year old female with declining neuro status, cervical myelopathy.Worse over 2 weeks despite Prednisone 60 taperingUnderlying DDD lumbar, DJD knees, obesityPLAN:1) Reviewed history - fall 3 weeks ago and hit face, then seen here 01/16. Xraywith flexion extension views did show translation with flex/ext. CT scan 01/29in ER showed no fracture, + stenosis2) Concern for significant and relatively rapid neuro decline. Patient needs MRIand neurosurgery opinion within next 24-48 hours - lengthy discussion withpatient and niece. Recommended [facility] or [facility].3) Spoke with Dr Kim Neurosurgery, recommend MRI cervical spine without.Discussed with Dr Dow for direct admission - trying to arrange - if unablepatient will go to ER.4) Followup PRNThe above plan and management options were discussed at length with patient.Patient is in agreement with the above and verbalized understanding.HUBER Smithunc health nashfranki 2017Previous VersionPashad Fritz MD 01/30/2018 3:51 PM SignedYou have had decline in your neurologic condition over few weeks time. I am veryconcerned about worsening weakness and numbness with potential for irreversibledamage.On that basis recommend hospital admission where neurosurgery immediatelyavailable if needed. Normal [facility] MRI CERVICAL SPINE WO IVCONo n 01-30-2018 MRI CERVICAL SPINE WO IVCON * * *Final Report* * *DATE OF EXAM: Jan 30 2018 8:47PM [facility] 0297 - MRI CERVICAL SPINE WO IVCON / REASON: Numbness or tingling, paresthesia * * * * Physician Interpretation * * * *RESULT: EXAMINATION: MRI CERVICAL SPINE WO IVCONCLINICAL HISTORY: Numbness or tingling, paresthesiaTECHNIQUE: Routine cervical spine MR protocol without gadolinium.MQ: [id number]: Cervical spine radiographs 01/20/18RESULT:Examination is marred due to motion.Counting reference: Craniocervical junction. Anatomic Variants: None.Alignment: Grade 1 degenerative anterolisthesis of C3 on C4. Straightening of the normal cervical lordosis, likely degenerative. Alignment is otherwise anatomic.Craniocervical junction: Craniocervical junction is normal.Cord: There is mild cord compression at C3-C4 with abnormal cord signal, which may be due to edema versus myelomalacia.Bone marrow signal/fracture: Fusion of the C4-C5 vertebral bodies. No evidence of pathologic marrow infiltration. No evidence of prior fracture.Cervical soft tissues: The paraspinal soft tissues are within normal limits. Large right thyroid mass noted measuring up to 5.8 cm ending into the superior mediastinum, incompletely evaluated on the sagittal images.C2-C3: There is disc degeneration with disc osteophyte complex, uncovertebral spurring, and facet arthropathy causing mild left and moderate foraminal stenosis without significant canal narrowing.C3-C4: There is disc degeneration with disc osteophyte complex, uncovertebral spurring, and facet arthropathy causing moderate canal narrowing with mild cord compression and moderate bilateral foraminal stenosis.C4-C5: There is disc degeneration with disc osteophyte complex, uncovertebral spurring, and facet arthropathy causing mild canal narrowing without severe foraminal stenosis.C5-C6: There is disc degeneration with disc osteophyte complex, uncovertebral spurring, and facet arthropathy causing mild canal narrowing and severe bilateral foraminal stenosis.C6-C7: There is disc degeneration with disc osteophyte complex, uncovertebral spurring, and facet arthropathy causing mild canal narrowing, moderate severe left and severe right foraminal stenosis.C7-T1: Canal and foramina are patent.IMPRESSION:Cervical spondylosis as described worst at C3-C4 with mild cord compression. Abnormal cord signal at this level which may indicate edema or myelomalacia.Large right thyroid mass, incompletely evaluated.Anatomic Variant: None. Assume 7 cervical vertebrae with counting from the craniocervical junction.Incidental Finding: Follow-up with dedicated thyroid Ultrasound for this incidentally detected thyroid nodule(s) 1.0cm or larger in a patient with no known thyroid disease.[place] [employer] 2009COMMUNICATION: Communicated the cord compression and abnormal cord signal with: Physician: FRANCISCO DOW on 01/30/2018 at 9:02 PM.Transcribed Using Voice RecognitionTranscribe Date/Time: Jan 30 2018 8:54PDictated by: SUJEY CASTANON MDThis examination was interpreted and the report reviewed and electronically signed by: SUJEY CASTANON MD on Jan 30 2018 9:03PM [id number] Invalid Interpretation Code [facility] Myoglobin Serumon 01-30-2018 Myoglobin Serum 54 ng/mL Normal 30-90 [facility] NURSING PROGon 01-30-2018 Protein mass conc HNO ID: [id number] thor: Mara (Rn) Evelio, RNService: NursingAuthor Type: Registered NurseType: Nursing Progress NoteFiled: 01/30/2018 7:02 PMNote Text: Nursing Progress NotePatient Name: Sonia KarimiMRN: [id number] Location: [place] [address] Daily Note:1828-Pt arrived to the unit from outside physicians office. Pt oriented tothe room, call light and staff. Pt educated that she a falls risk andreviewed yellow falls sheet with her. Pt watching falls video at thistime. Pt is AANDOX3. PT denies any CP, SOB, dizziness or headache. Pt statesthat she has n/t to her BUE. Pt states that is has begun to getprogressively worse. BS present x4, abdomen soft and nontender. BLE arewarm, pink and mobile. IS and deep breathing encouraged. Will continue tomonitor. Safety maintained. Bed alarm on.1849-CLERK OPERATOR med list reviewed and updated with pt.1854-Paged Dr. Dow at this time regarding admission orders and toreorder pts CLERK OPERATOR medications.1900-Spoke with Dr. Dow at this time, verbal admission orders receivedwill place them into the computer.This note was completed by: MARA TYSON RN Normal [facility] Vital Signs Date Time Vital Sign Value Performing Clinician Facility 08-12-2024 11:48-0400 Diastolic blood pressure 76 mm[Hg] Melissa Muhammad MD Work Phone: [facility] 08-12-2024 11:48-0400 Heart rate 72 /min Melissa Muhammad MD Work Phone: [facility] 08-12-2024 11:48-0400 Respiratory rate 16 /min Melissa Muhammad MD Work Phone: [facility] 08-12-2024 11:48-0400 SaO2% (BldA) [Mass fraction] 99 % Melissa Muhammad MD Work Phone: [facility] 08-12-2024 11:48-0400 Systolic blood pressure 126 mm[Hg] Melissa Muhammad MD Work Phone: [facility] 07-24-2024 10:15-0400 Body temperature 97.39 [degF] Helena Swank SEAL DELIVERY VEHICLE TEAM TECHNICIAN.RESIDENTIAL ROOFER HELPER Work Phone: [facility] 07-24-2024 10:15-0400 Diastolic blood pressure 78 mm[Hg] Helena Swank SEAL DELIVERY VEHICLE TEAM TECHNICIAN.RESIDENTIAL ROOFER HELPER Work Phone: [facility] 07-24-2024 10:15-0400 Heart rate 74 /min Helena Swank SEAL DELIVERY VEHICLE TEAM TECHNICIAN.RESIDENTIAL ROOFER HELPER Work Phone: [facility] 07-24-2024 10:15-0400 Respiratory rate 18 /min Helena Swank SEAL DELIVERY VEHICLE TEAM TECHNICIAN.RESIDENTIAL ROOFER HELPER Work Phone: [facility] 07-24-2024 10:15-0400 SaO2% (BldA) [Mass fraction] 93 % Helena Swank SEAL DELIVERY VEHICLE TEAM TECHNICIAN.RESIDENTIAL ROOFER HELPER Work Phone: [facility] 07-24-2024 10:15-0400 Systolic blood pressure 128 mm[Hg] Helena Swank SEAL DELIVERY VEHICLE TEAM TECHNICIAN.RESIDENTIAL ROOFER HELPER Work Phone: [facility] 06-25-2024 11:10-0400 Diastolic blood pressure 74 mm[Hg] Josephine Hawthorne SEAL DELIVERY VEHICLE TEAM TECHNICIAN.PERSONNEL DIRECTOR Work Phone: [facility] 06-25-2024 11:10-0400 Heart rate 80 /min Josephine Hawthorne SEAL DELIVERY VEHICLE TEAM TECHNICIAN.PERSONNEL DIRECTOR Work Phone: [facility] 06-25-2024 11:10-0400 Respiratory rate 16 /min Josephine Hawthorne SEAL DELIVERY VEHICLE TEAM TECHNICIAN.PERSONNEL DIRECTOR Work Phone: [facility] 06-25-2024 11:10-0400 Systolic blood pressure 134 mm[Hg] Josephine Hawthorne SEAL DELIVERY VEHICLE TEAM TECHNICIAN.PERSONNEL DIRECTOR Work Phone: [facility] 04-18-2024 12:20-0500 Diastolic blood pressure 73 mm[Hg] Josephine Hawthorne SEAL DELIVERY VEHICLE TEAM TECHNICIAN.PERSONNEL DIRECTOR Work Phone: [facility] 04-18-2024 12:20-0500 Heart rate 83 /min Josephine Hawthorne SEAL DELIVERY VEHICLE TEAM TECHNICIAN.PERSONNEL DIRECTOR Work Phone: [facility] 04-18-2024 12:20-0500 Respiratory rate 16 /min Josephine Hawthorne SEAL DELIVERY VEHICLE TEAM TECHNICIAN.PERSONNEL DIRECTOR Work Phone: [facility] 04-18-2024 12:20-0500 Systolic blood pressure 110 mm[Hg] Josephine Hawthorne SEAL DELIVERY VEHICLE TEAM TECHNICIAN.PERSONNEL DIRECTOR Work Phone: [facility] 06-09-2023 14:59-0400 Body temperature 97.8 [degF] Dr. Melissa Muhammad Work Phone: [facility] 06-09-2023 14:59-0400 Diastolic blood pressure 61 mm[Hg] Dr. Melissa Muhammad Work Phone: [facility] 06-09-2023 14:59-0400 Heart rate 93 /min Dr. Melissa Muhammad Work Phone: [facility] 06-09-2023 14:59-0400 Respiratory rate 16 /min Dr. Melissa Muhammad Work Phone: [facility] 06-09-2023 14:59-0400 SaO2% (BldA) [Mass fraction] 95 % Dr. Melissa Muhammad Work Phone: [facility] 06-09-2023 14:59-0400 Systolic blood pressure 108 mm[Hg] Dr. Melissa Muhammad Work Phone: [facility] 06-09-2023 06:00-0400 Body mass index (BMI) [Ratio] 42.3 kg/m2 Dr. Melissa Muhammad Work Phone: [facility] 06-09-2023 06:00-0400 Body weight 119.[address] Melissa Muhammad Work Phone: [facility] 06-08-2023 06:05-0400 Body height 167.[address] Melissa Muhammad Work Phone: [facility] 06-05-2023 10:37-0400 Inhaled oxygen flow rate 2 L/min Dr. Melissa Muhammad Work Phone: [facility] 06-02-2023 19:00-0400 Body temperature 98.1 [degF] [facility] 06-02-2023 19:00-0400 Diastolic blood pressure 100 mm[Hg] [facility] 06-02-2023 19:00-0400 Heart rate 98 /min [facility] 06-02-2023 19:00-0400 Respiratory rate 18 /min [facility] 06-02-2023 19:00-0400 SaO2% (BldA) [Mass fraction] 98 % [facility] 06-02-2023 19:00-0400 Systolic blood pressure 142 mm[Hg] [facility] 06-02-2023 16:36-0400 Body height 167.64 cm [facility] 06-02-2023 16:36-0400 Body mass index (BMI) [Ratio] 44.2 kg/m2 [facility] 06-02-2023 16:36-0400 Body weight 124.4 kg [facility] 05-30-2023 13:42-0400 Body height 167.6 cm Riddhi Sanchez PA-C Work Phone: [facility] 05-30-2023 13:42-0400 Body weight 128.82 kg Riddhi Sanchez PA-C Work Phone: [facility] 05-22-2023 13:56-0400 Body temperature 98.71 [degF] Herminio HANSEN Work Phone: [facility] 05-22-2023 13:56-0400 Body weight 124.29 kg Krislyn Aberegg PA Work Phone: [facility] 05-22-2023 13:56-0400 Diastolic blood pressure 76 mm[Hg] Krislyn Aberegg PA Work Phone: [facility] 05-22-2023 13:56-0400 Heart rate 105 /min Krislyn Aberegg PA Work Phone: [facility] 05-22-2023 13:56-0400 Respiratory rate 18 /min Krislyn Aberegg PA Work Phone: [facility] 05-22-2023 13:56-0400 SaO2% (BldA) [Mass fraction] 95 % Krislyn Aberegg PA Work Phone: [facility] 05-22-2023 13:56-0400 Systolic blood pressure 158 mm[Hg] Krislyn Aberegg PA Work Phone: [facility] 05-02-2023 09:00-0400 Body temperature 97.6 [degF] [facility] 05-02-2023 09:00-0400 Diastolic blood pressure 78 mm[Hg] [facility] 05-02-2023 09:00-0400 Heart rate 64 /min [facility] 05-02-2023 09:00-0400 Respiratory rate 14 /min [facility] 05-02-2023 09:00-0400 SaO2% (BldA) [Mass fraction] 99 % [facility] 05-02-2023 09:00-0400 Systolic blood pressure 134 mm[Hg] [facility] 05-02-2023 05:39-0400 Body height 167.64 cm [facility] 05-02-2023 05:39-0400 Body mass index (BMI) [Ratio] 45 kg/m2 [facility] 05-02-2023 05:39-0400 Body weight 126.6 kg [facility] 07-18-2022 14:31-0400 Diastolic blood pressure 82 mm[Hg] Josephine Hawthorne SEAL DELIVERY VEHICLE TEAM TECHNICIAN.PERSONNEL DIRECTOR Work Phone: [facility] 07-18-2022 14:31-0400 Heart rate 84 /min Josephine Hawthorne SEAL DELIVERY VEHICLE TEAM TECHNICIAN.PERSONNEL DIRECTOR Work Phone: [facility] 07-18-2022 14:31-0400 Systolic blood pressure 174 mm[Hg] Josephine Hawthorne SEAL DELIVERY VEHICLE TEAM TECHNICIAN.PERSONNEL DIRECTOR Work Phone: [facility] 07-18-2022 14:23-0400 Respiratory rate 16 /min Josephine Hawthorne SEAL DELIVERY VEHICLE TEAM TECHNICIAN.PERSONNEL DIRECTOR Work Phone: [facility] 03-02-2022 13:15-0500 Body temperature 98.29 [degF] Melissa Muhammad MD Work Phone: [facility] 03-02-2022 13:15-0500 Diastolic blood pressure 78 mm[Hg] Melissa Muhammad MD Work Phone: [facility] 03-02-2022 13:15-0500 Heart rate 71 /min Melissa Muhammad MD Work Phone: [facility] 03-02-2022 13:15-0500 Respiratory rate 18 /min Melissa Muhammad MD Work Phone: [facility] 03-02-2022 13:15-0500 SaO2% (BldA) [Mass fraction] 97 % Melissa Muhammad MD Work Phone: [facility] 03-02-2022 13:15-0500 Systolic blood pressure 142 mm[Hg] Melissa Muhammad MD Work Phone: [facility] 07-20-2021 12:20-0400 Diastolic blood pressure 72 mm[Hg] Josephine Hawthorne SEAL DELIVERY VEHICLE TEAM TECHNICIAN.PERSONNEL DIRECTOR Work Phone: [facility] 07-20-2021 12:20-0400 Heart rate 72 /min Josephine Hawthorne SEAL DELIVERY VEHICLE TEAM TECHNICIAN.PERSONNEL DIRECTOR Work Phone: [facility] 07-20-2021 12:20-0400 Respiratory rate 16 /min Josephine Hawthorne SEAL DELIVERY VEHICLE TEAM TECHNICIAN.PERSONNEL DIRECTOR Work Phone: [facility] 07-20-2021 12:20-0400 Systolic blood pressure 140 mm[Hg] Josephine Hawthorne SEAL DELIVERY VEHICLE TEAM TECHNICIAN.PERSONNEL DIRECTOR Work Phone: [facility] NEGATED: Highlighted [id number] 12:29-0500 BMI (Body Mass Index) 49.73 kg/m2 [facility] Work Phone: NEGATED: Highlighted [id number] 12:29-0500 Body weight 139.26 kg [place] [facility] Work Phone: NEGATED: Highlighted [id number] 12:29-0500 Body weight 140 kg [place] [facility] Work Phone: NEGATED: Highlighted [id number] 12:29-0500 BP Diastolic 77 mm[Hg] [facility] Work Phone: NEGATED: Highlighted [id number] 12:29-0500 BP Systolic 130 mm[Hg] [place] [facility] Work Phone: NEGATED: Highlighted [id number] 12:29-0500 Heart rate 2+ [place] [facility] Work Phone: NEGATED: Highlighted [id number] 12:29-0500 Height 167.64 cm [facility] Work Phone: NEGATED: Highlighted [id number] 12:29-0500 Height 168 cm [place] [facility] Work Phone: NEGATED: Highlighted [id number] 12:29-0500 Pulse (Heart Rate) 76 /min Karis Tittel [facility] Work Phone: Encounters Encounter Date Encounter Type Care Provider Facility Start: 12-06-2024 End: 12-06-2024 ambulatory JOSEPHINE HAWTHORNE Facility:[facility] Start: 10-02-2024 End: 10-03-2024 Telephone encounter Melissa Muhammad MD Work Phone: [facility] [place] Start: 09-30-2024 End: 09-30-2024 ambulatory MELISSA MUHAMMAD Facility:[facility] Start: 09-26-2024 End: 09-26-2024 [facility] [place] Start: 09-26-2024 End: 09-26-2024 Patient encounter [facility] [place] Comment on above: Population Health Na vigation Outreach ([place] ) Start: 09-26-2024 End: 09-30-2024 Telephone encounter Melissa Muhammad MD Work Phone: [facility] [place] Comment on above: Patient Update; Orde rs Start: 09-20-2024 End: 09-23-2024 Refill Melissa Muhmamad MD Work Phone: [facility] [place] Comment on above: Refill Request Start: 09-16-2024 End: 09-23-2024 Telephone encounter Melissa Muhammad MD Work Phone: [facility] [place] Start: 09-13-2024 End: 09-13-2024 Telephone encounter Melissa Muhammad MD Work Phone: [facility] [place] Comment on above: Faxed to [facility] Start: 08-20-2024 End: 08-22-2024 ambulatory Melissa Muhammad MD Work Phone: [facility] [place] Comment on above: Analysis Start: 08-20-2024 End: 08-21-2024 Telephone encounter Melissa Muhammad MD Work Phone: [facility] [place] Comment on above: Results Start: 08-19-2024 End: 08-19-2024 ambulatory MELISSA MUHAMMAD Facility:[facility] Start: 08-14-2024 End: 08-14-2024 ambulatory Magda Rodriguez MA [employer] [facility] [place] Start: 08-14-2024 End: 08-14-2024 Patient encounter procedure Magda Rodriguez MA [facility] [place] Comment on above: Population Health Na vigation Outreach ([place] ) Start: 08-12-2024 End: 08-12-2024 ambulatory MELISSA MUHAMMAD Facility:[facility] Start: 08-12-2024 End: 08-12-2024 Office outpatient visit 25 minutes Melissa Muhammad MD Work Phone: [facility] [place] Comment on above: Essential hypertensi on (Primary Dx); Spinal stenosis, lumbar region with neurogenic claudication; Cervical spondylosis with myelopathy; Spondylosis with myelopathy, thoracic region; Primary osteoarthritis of both shoulders; Urinary frequency; Microcytosis; Hypercalcemia; Vitamin D deficiency; Ingrown right greater toenail; Class 3 severe obesity due to excess calories without serious comorbidity with body mass index (BMI) of 45.0 to 49.9 in adult; Encounter for long-term current use of medication Start: 08-12-2024 End: 08-12-2024 ambulatory MELISSA MUHAMMAD Facility:[facility] Start: 07-24-2024 End: 07-24-2024 Patient encounter procedure Helena Montoya APRN.RESIDENTIAL ROOFER HELPER Work Phone: [facility] Comment on above: Acute non-recurrent maxillary sinusitis (Primary Dx) Start: 07-24-2024 End: 07-24-2024 ambulatory MELISSA MUHAMMAD Facility:[facility] Start: 07-09-2024 End: 08-09-2024 ambulatory Melissa Muhammad MD Work Phone: [facility] [place] Start: 06-28-2024 End: 06-28-2024 Telephone encounter Melissa Muhammad MD Work Phone: [facility] [place] Comment on above: Hospital bed problem Start: 06-27-2024 End: 07-01-2024 Follow-up encounter Josephine Hawthorne APRN.PERSONNEL DIRECTOR Work Phone: [facility] [place] Comment on above: Opened In Error Start: 06-26-2024 End: 06-27-2024 Telephone encounter Josephine Hawthorne APRN.PERSONNEL DIRECTOR Work Phone: [facility] [place] Comment on above: Orders Start: 06-25-2024 End: 06-25-2024 Office outpatient visit 25 minutes Josephine Hawthorne APRN.PERSONNEL DIRECTOR Work Phone: [facility] [place] Comment on above: Paraparesis (HCC) (P rimary Dx); Spinal stenosis, lumbar region with neurogenic claudication; Fusion of spine of thoracic region; Primary osteoarthritis of both knees; Cervical spondylosis with myelopathy; Self-care deficit; Chronic obstructive pulmonary disease, unspecified COPD type (HCC); Constipation, unspecified constipation type; Essential hypertension; Hyperlipidemia, unspecified hyperlipidemia type Start: 06-25-2024 End: 06-25-2024 ambulatory MELISSA MUHAMMAD Facility:[facility] Start: 06-19-2024 End: 07-15-2024 Home visit Melissa Muhammad MD Work Phone: [facility] [place] Comment on above: Spinal stenosis, lum bar region with neurogenic claudication (Primary Dx) OPENED IN ERROR (Annmarie alexandrea Dx) Start: 06-17-2024 End: 06-17-2024 Telephone encounter Melissa Muhammad MD Work Phone: [facility] [place] Comment on above: Home Health Physical Therapy Update Start: 05-10-2024 End: 05-10-2024 Telephone encounter Josephine Hawthorne APRN.PERSONNEL DIRECTOR Work Phone: [facility] [place] Start: 05-05-2024 End: 05-10-2024 ambulatory Josephine Hawthorne APRN.PERSONNEL DIRECTOR Work Phone: [facility] [place] Comment on above: Medication, not in f ormulary Start: 04-26-2024 End: 04-26-2024 Telephone encounter Melissa Muhammad MD Work Phone: [facility] [place] Comment on above: Release Of Medical R ecords Start: 04-25-2024 End: 04-26-2024 Telephone encounter Melissa Muhammad MD Work Phone: [facility] [place] Comment on above: D/C home health aide order Start: 04-19-2024 End: 04-19-2024 Telephone encounter Melissa Muhammad MD Work Phone: [facility] [place] Comment on above: Home Care Management Start: 04-18-2024 End: 04-18-2024 ambulatory MELISSA MUHAMMAD Facility:[facility] Start: 04-18-2024 End: 04-18-2024 Office outpatient visit 25 minutes Josephine Hawthorne APRGokulPERSONNEL DIRECTOR Work Phone: [facility] [place] Comment on above: S/P lumbar discectom y (Primary Dx); S/P laminectomy; History of humerus fracture; History of fall; Hyperlipidemia, unspecified hyperlipidemia type; Chronic obstructive pulmonary disease, unspecified COPD type (HCC); Essential hypertension; Paraparesis (HCC); Major depressive disorder, recurrent, mild (HCC); History of insomnia; Vitamin D deficiency; Constipation, unspecified constipation type; Wheelchair dependent; Gastroesophageal reflux disease, unspecified whether esophagitis present Start: 04-17-2024 End: 04-17-2024 Telephone encounter Melissa Muhammad MD Work Phone: [facility] [place] Comment on above: Orders Start: 04-09-2024 ambulatory Bakari MOYER Fa cility:[facility] Start: 03-14-2024 End: 03-14-2024 ambulatory Magda Rodriguez MA [facility] Start: 03-14-2024 End: 03-14-2024 Patient encounter procedure Magda Rodriguez MA [facility] [place] Comment on above: Population Health Na vigation Outreach ([place] ) Start: 03-12-2024 End: 03-12-2024 ambulatory Vika Vasquez [employer] CARRIAGE OPERATOR Facility:[facility] Start: 02-06-2024 End: 02-06-2024 ambulatory Bakari Lisa Facility:[facility] Start: 01-29-2024 End: 01-29-2024 ambulatory Vika Vasquez B[employer] M[employer] CARRIAGE OPERATOR Facility:[facility] Start: 01-19-2024 End: 01-19-2024 ambulatory Bakari Lisa OLS Facility:[facility] Start: 01-16-2024 End: 01-16-2024 ambulatory Messi De Anda MA [facility] Start: 01-16-2024 End: 01-16-2024 Patient encounter procedure Messi De Anda MA [facility] [place] Comment on above: Population Health Na vigation Outreach ([facility] [employer] list 2023/) Start: 12-27-2023 End: 12-27-2023 ambulatory Vika Vasquez [employer] CARRIAGE OPERATOR Facility:[facility] Start: 11-24-2023 ambulatory Kwasi Cheatham [facility] Start: 11-21-2023 End: 11-21-2023 ambulatory Vika Vasquez B[employer] M[employer] AND CARRIAGE OPERATOR Facility:[facility] Start: 10-20-2023 ambulatory Bakari Lisa OLS Fa cility:[facility] Start: 10-10-2023 End: 10-10-2023 ambulatory Melissa D [place] Facility:[facility] Start: 10-05-2023 End: 10-05-2023 ambulatory Vika Vasquez [employer] CARRIAGE OPERATOR Facility:[facility] Start: 09-25-2023 End: 09-25-2023 ambulatory Melissa D [place] Facility:[facility] Start: 09-04-2023 End: 09-04-2023 ambulatory Melissa D [place] Facility:[facility] Start: 08-31-2023 End: 08-31-2023 ambulatory Melissa D [place] Facility:[facility] Start: 08-25-2023 End: 08-25-2023 ambulatory Kwasi Cheatham Facility:[facility] Start: 08-21-2023 End: 08-21-2023 ambulatory Melissa D [place] Facility:[facility] Start: 08-11-2023 End: 08-11-2023 ambulatory Melissa D [place] Facility:[facility] Start: 08-10-2023 ambulatory Melissa D [place] Facilit y:[facility] Start: 08-09-2023 ambulatory Melissa Tessa lozoya MD Work Phone: [facility] [place] [phone] Start: 08-09-2023 End: 08-09-2023 Emergency department patient visit Melissa D [place] Facility:[facility] Start: 07-28-2023 End: 07-28-2023 ambulatory Melissa D [place] Facility:[facility] Start: 07-27-2023 ambulatory Melissa D [place] Facilit y:[facility] Start: 07-25-2023 End: 07-25-2023 ambulatory Melissa D [place] Facility:[facility] Start: 07-20-2023 End: 07-20-2023 ambulatory Melissa D [place] Facility:[facility] Start: 06-30-2023 ambulatory Kwasi Che[place] [facility] Start: 06-30-2023 End: 06-30-2023 ambulatory Kwasi Cheatham Facility:[facility] Start: 06-28-2023 End: 06-29-2023 ambulatory Melissa D [place] Facility:[facility] Start: 06-23-2023 End: 06-23-2023 ambulatory Melissa D [place] Facility:[facility] Start: 06-09-2023 ambulatory Melissa D [place] Facilit y:[facility] Start: 06-09-2023 End: 07-20-2023 Evaluation and management of inpatient Melissa D [place] Facility:[facility] Start: 06-09-2023 Non-patient / Non-visit Dr. Estela Muhammad Work Phone: [facility] Work Phone: Start: 06-09-2023 Non-patient / Non-visit Dr. Estela Muhammad Work Phone: [facility] Start: 06-08-2023 Non-patient / Non-visit Dr. Estela Muhammad Work Phone: [facility] Work Phone: Start: 06-08-2023 Non-patient / Non-visit Dr. Estela Muhammad [facility] Start: 06-07-2023 End: 06-07-2023 ambulatory Melissa D [place] Facility:[facility] Start: 06-07-2023 Non-patient / Non-visit Dr. Estela Muhammad Work Phone: [facility] Start: 06-06-2023 Non-patient / Non-visit Dr. Estela Muhammad Work Phone: [facility] Start: 06-06-2023 ambulatory Monika Adam Kelly Facility :[facility] Start: 06-06-2023 End: 06-09-2023 Evaluation and management of inpatient Dr. Melissa Muhammad [facility] Phone: Start: 06-05-2023 Non-patient / Non-visit Dr. Estela Muhammad Work Phone: [facility] Work Phone: Start: 06-04-2023 Non-patient / Non-visit Dr. Estela Muhammad Work Phone: [facility] Work Phone: Start: 06-03-2023 Non-patient / Non-visit Dr. Estela Muhammad Work Phone: [facility] [facility] Work Phone: Start: 06-02-2023 ambulatory [facility] Start: 06-02-2023 Evaluation and manag ement of inpatient [facility] Surgical 3 Work Phone: Start: 06-02-2023 Non-patient / Non-visit Dr. Estela Muhammad Work Phone: [facility] Work Phone: Start: 06-02-2023 observation encounter [facility] Work Phone: Start: 05-30-2023 End: 05-30-2023 ambulatory Riddhi Sanchez PA-C Work Phone: [facility] [place] Comment on above: Leg weakness, bilate ral (Primary Dx); Fusion of spine of thoracic region; Spinal stenosis of lumbar region with neurogenic claudication; Spondylosis with myelopathy, thoracic region; Lumbar radiculopathy; Severe low back pain; Acute right-sided back pain with sciatica; Class 3 severe obesity due to excess calories without serious comorbidity with body mass index (BMI) of 45.0 to 49.9 in adult Start: 05-30-2023 End: 05-30-2023 Telemedicine consultation with patient Riddhi Sanchez PA-C Work Phone: [facility] Start: 05-26-2023 Patient encounter procedure [facility] Provider [facility] Start: 05-24-2023 Telephone encounter Herminio HANSEN Work Phone: [facility] Comment on above: Results Start: 05-22-2023 End: 05-22-2023 Patient encounter procedure Herminio HANSEN Work Phone: [facility] Comment on above: Wound infection (Annmarie alexandrea Dx); Cat scratch Start: 05-02-2023 End: 05-02-2023 Emergency department patient visit [facility] Work Phone: Start: 04-20-2023 Refill Melissa lozoya MD Work Phone: [facility] [place] Comment on above: Refill Request Start: 04-06-2023 Orders Only Gisel olvera PA-C Work Phone: Orthopaedics Comment on above: Right shoulder pain, unspecified chronicity (Primary Dx) Start: 01-10-2023 Refill Melissa lozoya MD Work Phone: [facility] [place] Comment on above: Refill Request Start: 11-25-2022 Refill Melissa lozoya MD Work Phone: [facility] [place] Comment on above: Refill Request Start: 11-23-2022 Refill Melissa lozoya MD Work Phone: [facility] [place] Start: 08-09-2022 ambulatory Melissa lozoya MD Work Phone: [facility] [place] Comment on above: Electric Wheelchair Start: 07-18-2022 End: 07-18-2022 Office outpatient visit 25 minutes Josephine Hawthorne APRN.CNS Work Phone: [facility] [place] Comment on above: Encounter for immuni zation (Primary Dx); Screening for colon cancer; Ventricular tachycardia, non-sustained (HCC); Paraparesis (HCC); Essential hypertension; Hyperlipidemia, unspecified hyperlipidemia type; Depression, unspecified depression type Start: 05-25-2022 Telephone encounter Neo Gar DO Work Phone: Internal Medicine Comment on above: [id number] Other (Home health c are orders) Start: 05-12-2022 Telephone encounter Melissa carlson MD Work Phone: [facility] [place] Comment on above: [employer]/ power whe el chair Start: 05-06-2022 Patient encounter procedure [facility] Provider [facility] Start: 04-14-2022 Telephone encounter Neo Gar DO Work Phone: Internal Medicine Comment on above: Other (Home healthca re certification) Start: 03-15-2022 Telephone encounter Neo Gar DO Work Phone: Internal Medicine Comment on above: Forms Start: 03-07-2022 Telephone encounter Melissa carlson MD Work Phone: [facility] [place] Comment on above: Forms (For PMD) Start: 03-02-2022 Telephone encounter Melissa carlson MD Work Phone: [facility] [place] Comment on above: Medication problem/c larification Start: 03-02-2022 End: 03-02-2022 Office outpatient visit 40 minutes Melissa Muhammad MD Work Phone: [facility] [place] Comment on above: Postlaminectomy synd tania, not elsewhere classified (Primary Dx); Wheelchair dependent; Osteoarthritis of multiple joints, unspecified osteoarthritis type; BMI 40.0-44.9, adult (HCC); IFG (impaired fasting glucose); Essential hypertension; Hyperlipidemia, unspecified hyperlipidemia type; Anemia, unspecified type; Leg weakness, bilateral; IRIS treated with BiPAP; Asymptomatic postmenopausal status Start: 02-02-2022 Telephone encounter Neo Gar DO Work Phone: Internal Medicine Comment on above: Other (Home health c ert and plan of care) Start: 01-28-2022 Patient encounter procedure [facility] Provider [facility] Start: 01-28-2022 Telephone encounter Neo Gar DO Work Phone: Internal Medicine Comment on above: Other (Home health c are cert and plan of care) Start: 01-05-2022 Refill Ramirez meyer MD Work Phone: Rehab Medicine Comment on above: Refill Request Start: 12-16-2021 Telephone encounter Neo Gar DO Work Phone: Internal Medicine Comment on above: Forms (Order no. [id number]) Start: 11-30-2021 Telephone encounter Neo Gar DO Work Phone: Internal Medicine Comment on above: Forms (Order no. [id number]) Start: 11-09-2021 Refill Neo abdalla DO Work Phone: Internal Medicine Comment on above: Refill Request Start: 10-21-2021 Telephone encounter Neo Gar DO Work Phone: Internal Medicine Comment on above: Forms (Physician Ord er) Start: 09-27-2021 Telephone encounter Neo Gar DO Work Phone: Internal Medicine Comment on above: Forms Start: 09-22-2021 ambulatory Neo abdalla DO Work Phone: [facility] [place] Start: 09-16-2021 Telephone encounter Neo Gar DO Work Phone: Internal Medicine Comment on above: Forms (Home Health C ertification and Plan Of Care #[id number]) Start: 09-15-2021 ambulatory Neo abadlla DO Work Phone: [facility] [place] Start: 09-14-2021 Telephone encounter Neo Gar DO Work Phone: Internal Medicine Comment on above: Patient Update Start: 09-02-2021 Refill Neoadam bearan DO Work Phone: Internal Medicine Comment on above: Refill Request Start: 08-27-2021 Refill Neoadam Buck marianelaan DO Work Phone: Internal Medicine Comment on above: Refill Request Start: 08-18-2021 Refill Ramirez meyer MD Work Phone: Rehab Medicine Comment on above: Refill Request Start: 08-09-2021 Telephone encounter Neowilma Gar DO Work Phone: Internal Medicine Comment on above: Patient Update; Orde rs Start: 08-07-2021 ambulatory Neo Buck marianelajoao DO Work Phone: Internal Medicine Comment on above: Power Chair Start: 08-04-2021 Telephone encounter Neo Gar DO Work Phone: Internal Medicine Comment on above: Forms ([facility], PROGRESS NOTES) Opened In Error Start: 07-27-2021 Telephone encounter Melissa carlson MD Work Phone: Internal Medicine Comment on above: Patient Update Start: 07-20-2021 End: 07-20-2021 Subsequent hospital visit by physician Margaret [facility] [place] Work Phone: Radiology Comment on above: Spondylosis with mye lopathy, 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47.14] Start: 07-20-2021 End: 07-20-2021 Patient encounter procedure Josephine Hawthorne APRN.PERSONNEL DIRECTOR Work Phone: [facility] [place] Comment on above: Postlaminectomy synd tania, not elsewhere classified (Primary Dx); Myelopathy (HCC); Spondylosis with myelopathy, thoracic region; S/P laminectomy; Fusion of spine of thoracic region; Leg weakness, bilateral; Essential hypertension; Depression, unspecified depression type; Hyperlipidemia, unspecified hyperlipidemia type; Encounter for screening for diabetes mellitus; IFG (impaired fasting glucose); Colon cancer screening Start: 07-08-2021 Telephone encounter Neo Gar DO Work Phone: Internal Medicine Comment on above: Patient Update; Soco ent Question Start: 06-23-2021 Telephone encounter Neowilma Gar DO Work Phone: Internal Medicine Comment on above: Patient Update; Soco ent Question; Orders Start: 06-17-2021 ambulatory Neo abdalla DO Work Phone: Internal Medicine Comment on above: Shingrix Vaccine Blood work Start: 06-17-2021 Telephone encounter Neo Gar DO Work Phone: Internal Medicine Comment on above: MyChart Start: 06-15-2021 Telephone encounter Neo Gar DO Work Phone: Internal Medicine Comment on above: Orders (pt need [facility] order for homecare) Start: 05-07-2021 Telephone encounter Neo Gar DO Work Phone: Internal Medicine Comment on above: Forms ([employer] - F 2F/CHART NOTE REQUEST ) Start: 05-06-2021 Refill Neo abdalla DO Work Phone: Internal Medicine Comment on above: Refill Request Start: 05-05-2021 Telephone encounter Neo Gar DO Work Phone: Internal Medicine Comment on above: Medication Problem Start: 04-20-2021 Telephone encounter Neo Gar DO Work Phone: Internal Medicine Comment on above: Physical therapy end ed Start: 04-14-2021 Telephone encounter Neo Gar DO Work Phone: Internal Medicine Comment on above: Patient Update Start: 04-08-2021 Telephone encounter Neo Gar DO Work Phone: Internal Medicine Comment on above: Orders; Patient Upda te Start: 04-07-2021 Telephone encounter Neo Gar DO Work Phone: Internal Medicine Comment on above: Patient Update Start: 03-04-2021 Home visit Neo abdalla DO Work Phone: Internal Medicine Comment on above: Postlaminectomy synd tania, not elsewhere classified (Primary Dx) Start: 02-11-2021 Refill Shilpa Hartman DO Work Phone: [facility] Comment on above: Refill Request; Refi ll Request Start: 01-18-2019 End: 01-19-2019 Patient encounter procedure Luke Guerrero MD Work Phone: [facility] Work Phone: Start: 02-15-2018 Patient encounter procedure CARLOS GODFREY) [facility] Start: 01-30-2018 End: 02-07-2018 Evaluation and management of inpatient [facility] Procedures Date Procedure Procedure Detail Performing Clinician Start: 08-12-2024 Lipid 1996 panel - Serum or Plasma Magda Rodriguez MA Start: 06-25-2024 Lipid 1996 panel - Serum or Plasma Josephine Hawthorne APRN.PERSONNEL DIRECTOR Work Phone: Start: 06-28-2023 Colonoscopy Melissa tomlin MD Work Phone: Start: 06-08-2023 Laminectomy,Lumbar Micro Decompression (Not Applicable) Dr. Melissa Muhammad Work Phone: Start: 06-08-2023 Fluoroscopic guidance Tessa Muhammad Work Phone: Start: 06-08-[address] Cher Mhuammad Work Phone: Start: 06-05-2023 MRI of lumbar spine Dr. Melissa Muhammad Work Phone: Start: 06-02-2023 X-ray of lumbar spin e, two or three views Start: 05-11-2023 Lipid 1996 panel - Serum or Plasma Herminio HANSEN Work Phone: Start: 05-02-2023 Pelvis X-ray Start: 05-02-2023 X-ray of lumbar spin e, two or three views Start: 07-18-2022 Lipid 1996 panel - Serum or Plasma Melissa Muhammad MD Work Phone: Start: 07-27-2021 Adult depression screening assessment Neo Gar DO Work Phone: Start: 07-20-2021 Radex spine thoracic 2 views Riddhi Sanchez PA-C Work Phone: Start: 10-14-2020 Adult depression screening assessment Neo Gar DO Work Phone: Start: 11-18-2019 H/O: surgery History of cer vical polypectomy Neo Gar DO Work Phone: Start: 01-18-2019 End: 01-19-2019 Blood pressure within normal parameters - no follow-up required Luke Guerrero MD Work Phone: Start: 01-18-2019 End: 01-19-2019 BMI documented as above normal parameters - follow-up documented Luke Guerrero MD Work Phone: Start: 01-18-2019 End: 01-19-2019 Documentation of current medications Luke Guerrero MD Work Phone: Start: 01-18-2019 End: 01-19-2019 Osteoarthritis assess Luke Guerrero MD Work Phone: Start: 01-18-2019 End: 01-19-2019 Pain assessment documented as positive - follow-up documented Luke Guerrero MD Work Phone: Start: 01-18-2019 End: 01-18-2019 Radiologic examination knee 3 views Luke Guerrero MD Work Phone: Start: 01-18-2019 End: 01-19-2019 Tobacco non-user Luke Guerrero MD Work Phone: Start: 01-31-2018 Antibody screen [facility] Start: 11-22-2016 Mammography Neo Gar DO Work Phone: History of tonsillectomy Hx of tonsillectomy NEGATED: Highlighted rowStart: 01-18-2019 End: 01-18-2019 Documentation of current medications Karis Jean-Baptiste Plan of Treatment Date Care Activity Detail Author Start: 05-21-2033 Urine microalbumin profile DTaP,Tdap,Td Vaccine (4 - Td or Tdap) [facility] Start: 08-12-2029 Lipid panel Lipid Screening [facility] Start: 06-25-2029 Lipid panel Lipid Screening [facility] Start: 05-10-2028 Lipid panel Lipid Screening [facility] Start: 08-13-2027 Diabetes Screening Diabetes Screenva g [facility] Start: 07-19-2027 Lipid 1996 panel - S parag or Plasma Lipid Screening [facility] Start: 07-19-2027 Lipid panel Lipid Screening [facility] Start: 07-19-2027 LIPID SCREEN LIPID SCREEN [facility] Start: 06-26-2027 Diabetes Screening Diabetes Screenin g [facility] Start: 05-10-2026 Diabetes Screening Diabetes Screenva g [facility] Start: 10-14-2025 LIPID SCREEN LIPID SCREEN [facility] Start: 08-12-2025 Annual PCP Team Rubber Compounder Supervisor mat Disease Visit Annual PCP Team Chronic Disease Visit [facility] Start: 07-18-2025 DIABETES SCREEN DIABETES SCREEN [facility] Start: 07-18-2025 Diabetes Screening Diabetes Screenva g [facility] Start: 04-18-2025 BP Controlled (<130/80) BP Controlle d (<130/80) [facility] Start: 10-17-2024 End: 10-17-2024 Patient encounter procedure 10/17/2024 10:00 AM EDT Office Visit Podiatry [address] [place] [id number] Darnell Restrepo [address] [place] [id number] Ingrown nail on right great toe Podiatry Comment on above: Ingrown nail on righ t great toe Start: 10-14-2024 Influenza vaccination [facility] Start: 09-27-2024 End: 12-27-2024 Bacteria identified in Urine by Culture BACTERIAL CULTURE, URINE Microbiology Routine Urinary frequency Expected: 09/27/2024 (Approximate), Expires: 12/27/2024 [facility] Work Phone: Comment on above: Expected: 09/27/2024 (Approximate), Expires: 12/27/2024 Start: 08-12-2024 End: 08-12-2024 Patient encounter procedure 08/12/2024 10:40 AM EDT Office Visit [facility] [place] [address] [place] [address] Melissa Muhammad MD [address] [place] [address] 3 month f/u [facility] [place] Comment on above: 3 month f/u Start: 06-27-2024 Screening for malign ant neoplasm of colon [facility] Start: 06-25-2024 End: 09-24-2024 Lipid 1996 panel - Serum or Plasma LIPID PANEL, FASTING Lab Routine Hyperlipidemia, unspecified hyperlipidemia type Expected: 06/25/2024, Expires: 09/24/2024 [facility] Work Phone: Comment on above: Expected: 06/25/2024 , Expires: 09/24/2024 Start: 04-18-2024 End: 04-18-2024 Patient encounter procedure 04/18/2024 11:40 AM EST Office Visit [facility] [place] [address] [place] [address] Josephine Hawthorne APRN.PERSONNEL DIRECTOR [address] [place] [address] Discharged and need to continue medications [facility] [place] Comment on above: Discharged and need to continue medications Start: 02-25-2024 BP Controlled (<130/80) BP Controlle d (<130/80) [facility] Start: 02-14-2024 Advance Directive Discussion Advance Directive Discussion [facility] Start: 11-23-2023 DIABETES SCREEN DIABETES SCREEN [facility] Start: 11-10-2023 Annual PCP Team Rubber Compounder Supervisor mat Disease Visit Annual PCP Team Chronic Disease Visit [facility] Start: 11-10-2023 BP Controlled (<130/80) BP Controlle d (<130/80) [facility] Start: 10-15-2023 Covid-19 Vaccine ( season) Covid-19 Vaccine ( season) [facility] Start: 10-15-2023 Influenza vaccination Influenza Vacc ine (#1) [facility] Start: 08-18-2023 End: 08-18-2023 Patient encounter procedure 08/18/2023 4:00 PM EDT Office Visit [facility] [place] [address] [place] [address] Melissa Muhammad MD [address] [place] [address] follow up [facility] [place] Comment on above: follow up Start: 06-09-2023 Patient discharge [facility] Start: 06-08-2023 Provision of activit y privileges [facility] Start: 06-08-2023 Application of ice collar, cap or bag [facility] Start: 06-08-2023 Application of intermittent pneumatic compression device [facility] Start: 06-08-2023 Catheterization of vein [facility] Start: 06-08-2023 Following clinical pathway protocol [facility] Start: 06-08-2023 Measuring intake and output [facility] Start: 06-08-2023 Neurovascular assessment [facility] Start: 06-08-2023 Patient education [facility] Start: 06-08-2023 Procedure discontinued [facility] Start: 06-08-2023 Referral to service [facility] Start: 06-08-2023 Taking patient vital signs [facility] Start: 06-06-2023 Admission procedure [facility] Start: 06-06-2023 Consultation [facility] Start: 06-02-2023 Dual pressure spontaneous ventilation support [facility] Start: 06-02-2023 Following clinical pathway protocol [facility] Start: 06-02-2023 Assessment of risk o f venous thromboembolism [facility] Start: 06-02-2023 Fall prevention [facility] Start: 06-02-2023 Inhalation therapy procedure [facility] Start: 06-02-2023 Insertion of cathete r into peripheral vein [facility] Start: 06-02-2023 Introduction of urin andriy catheter [facility] Start: 06-02-2023 Measuring intake and output [facility] Start: 06-02-2023 Providing care accor ding to standard [facility] Start: 06-02-2023 Provision of activit y privileges [facility] Start: 06-02-2023 Referral to occupati onal therapist [facility] Start: 06-02-2023 Referral to service [facility] Start: 06-02-2023 [facility] Start: 06-02-2023 Verification routine [facility] Start: 06-02-2023 Admission procedure [facility] Start: 06-02-2023 Hospital admission, emergency, from emergency room, medical nature [facility] Start: 06-02-2023 Consultation [facility] Start: 06-02-2023 Patient referral to dietitian [facility] Start: 05-22-2023 End: 08-21-2023 Bacteria identified in Wound by Culture [facility] Work Phone: Comment on above: Expected: 05/22/2023 , Expires: 08/21/2023 Start: 05-02-2023 [facility] Start: 03-02-2023 ANNUAL PCP TEAM NEUROLOGY MANAGER MAT DISEASE VISIT ANNUAL PCP TEAM CHRONIC DISEASE VISIT [facility] Start: 02-13-2023 Advance Directive Discussion Advance Directive Discussion [facility] Start: 10-14-2022 Covid-19 Vaccine ( season) Covid-19 Vaccine () [facility] Start: 10-14-2022 Influenza vaccination INFLUENZA (#1) [facility] Start: 07-27-2022 Adult depression screening assessment DEPRESSION SCREENING [facility] Start: 07-23-2022 COLORECTAL CANCER SCREENING COLORECTAL CANCER SCREENING [facility] Start: 07-23-2022 FECAL OCCULT BLOOD FECAL OCCULT BLOO D [facility] Start: 07-23-2022 Screening for malign ant neoplasm of colon [facility] Start: 07-18-2022 End: 09-17-2022 Comprehensive metabolic 2000 panel - Serum or Plasma [facility] Work Phone: Comment on above: Expected: 07/18/2022 , Expires: 09/17/2022 Start: 07-18-2022 End: 09-17-2022 LIPID PANEL, NONFASTING [facility] Work Phone: Comment on above: Expected: 07/18/2022 , Expires: 09/17/2022 Start: 06-09-2022 Urine microalbumin profile [facility] Start: 04-30-2022 ANNUAL PCP TEAM NEUROLOGY MANAGER MAT DISEASE VISIT ANNUAL PCP TEAM CHRONIC DISEASE VISIT [facility] Start: 04-14-2022 COVID-19 VACCINE (5 - Moderna series) COVID-19 VACCINE (5 - Moderna series) [facility] Start: 03-02-2022 End: 05-02-2022 LIPID PANEL, NONFASTING LIPID PANEL, NONFASTING Lab Routine Hyperlipidemia, unspecified hyperlipidemia type Expected: 03/02/2022, Expires: 05/02/2022 [facility] Work Phone: Comment on above: Expected: 03/02/2022 , Expires: 05/02/2022 Start: 02-13-2022 ADVANCE DIRECTIVE DISCUSSION ADVANCE DIRECTIVE DISCUSSION [facility] Start: 02-12-2022 ADVANCE DIRECTIVE DISCUSSION ADVANCE DIRECTIVE DISCUSSION [facility] Comment on above: Postponed from 02/13 (Declined at this time) Start: 10-16-2021 Pneumococcal Vaccine : 65+ (2 - PCV) Pneumococcal Vaccine: 65+ (2 - PCV) [facility] Start: 10-16-2021 Pneumococcal Vaccine : 65+ (2 of 2 - PCV) Pneumococcal Vaccine: 65+ (2 of 2 - PCV) [facility] Start: 10-16-2021 PNEUMOCOCCAL: 65+ (2 - PCV) PNEUMOCOCCAL: 65+ (2 - PCV) [facility] Start: 10-14-2021 Adult depression screening assessment DEPRESSION SCREENING [facility] Start: 10-14-2021 Influenza vaccination INFLUENZA (#1) [facility] Start: 07-20-2021 End: 09-19-2021 CBC W Auto Differential panel - Blood CBC + DIFF Lab Routine Essential hypertension Depression, unspecified depression type Expected: 07/20/2021, Expires: 09/19/2021 [facility] Work Phone: Comment on above: Expected: 07/20/2021 , Expires: 09/19/2021 Start: 07-20-2021 End: 09-19-2021 Comprehensive metabolic 2000 panel - Serum or Plasma COMP METABOLIC PANEL Lab Routine Essential hypertension Depression, unspecified depression type Hyperlipidemia, unspecified hyperlipidemia type Expected: 07/20/2021, Expires: 09/19/2021 [facility] Work Phone: Comment on above: Expected: 07/20/2021 , Expires: 09/19/2021 Start: 07-20-2021 End: 09-19-2021 Hemoglobin A1c/Hemoglobin.total in Blood HGB A1C Lab Routine Encounter for screening for diabetes mellitus IFG (impaired fasting glucose) Expected: 07/20/2021, Expires: 09/19/2021 [facility] Work Phone: Comment on above: Expected: 07/20/2021 , Expires: 09/19/2021 Start: 07-20-2021 End: 09-19-2021 LIPID PANEL BASIC LIPID PANEL BASIC Lab Routine Hyperlipidemia, unspecified hyperlipidemia type Expected: 07/20/2021, Expires: 09/19/2021 [facility] Work Phone: Comment on above: Expected: 07/20/2021 , Expires: 09/19/2021 Start: 04-15-2021 COVID-19 VACCINE (4 - Booster for Moderna series) COVID-19 VACCINE (4 - Booster for Moderna series) [facility] Start: 04-13-2021 Medicare Annual Well ness Visit Medicare Annual Wellness Visit [facility] Start: 02-13-2021 DEPRESSION ASSESSMENT DEPRESSION ASS ESSMENT [facility] Start: 02-10-2021 COVID-19 VACCINE (4 - Booster for Moderna series) COVID-19 VACCINE (4 - Booster for Moderna series) [facility] Start: 12-11-2020 SHINGRIX VACCINE (2 of 2) SHINGRIX VACCINE (2 of 2) [facility] Start: 2018 BONE DENSITY BONE DENSITY [facility] Start: 2018 Bone Density Screening Bone Density Screening [facility] Start: 2018 PNEUMOVAX AGE 65 AND OVER WITH 5YR LOOKBACK (#1) PNEUMOVAX AGE 65 AND OVER WITH 5YR LOOKBACK (#1) [facility] Start: 2018 Screening for osteoporosis Bone Density Screening [facility] Start: 08-17-2018 COLORECTAL CANCER SCREENING COLORECTAL CANCER SCREENING [facility] Start: 08-17-2018 FECAL OCCULT BLOOD FECAL OCCULT BLOO D [facility] Start: 11-22-2017 Mammography [facility] Start: 11-22-2017 Screening for malign ant neoplasm of breast Mammogram Screening [facility] Start: 2013 RSV Vaccine (1 - 1-d ose 60+ series) RSV Vaccine (1 - 1-dose 60+ series) [facility] Start: 2013 RSV Vaccine (1 - Ris k 60-74 years 1-dose series) RSV Vaccine (1 - Risk 60-74 years 1-dose series) [facility] Start: 1998 COLOGUARD (FIT-DNA) COLOGUARD (FIT-D NA) [facility] Start: 1998 Colonoscopy COLONOSCOPY [facility] Start: [address] COLONOGRAPHY [facility] Start: 1998 Screening for malign ant neoplasm of colon [facility] Start: 1998 SIGMOIDOSCOPY SIGMOIDOSCOPY [facility] Start: 12-06-1983 Zoledronic acid therapy Alpha- 1 Antitrypsin Deficiency Screening [facility] Start: 12-06-1971 ANNUAL PCP TEAM NEUROLOGY MANAGER MAT DISEASE VISIT ANNUAL PCP TEAM CHRONIC DISEASE VISIT [facility] Start: 12-06-1971 Anxiety Screening Anxiety Screening [facility] Start: 12-06-1971 BP CONTROLLED (<130/80) BP CONTROLLE D (<130/80) [facility] Start: 12-06-1971 Spirometry Spirometry [facility] Bacteria identified in Urine by Culture BACTERIAL CULTURE, URINE Microbiology Routine Urinary frequency 09/30/2024 10:15 AM EDT [facility] End: 09-07-2024 DBT Breast - bilateral screening XAVIER SCREENING W ELI Radiology Routine Encounter for screening mammogram for breast cancer 1 Occurrences starting 08/09/2023 until 09/07/2024 [facility] Work Phone: Comment on above: 1 Occurrences starti ng 08/09/2023 until 09/07/2024 End: 08-08-2025 DBT Breast - bilateral screening XAVIER SCREENING W ELI Radiology Routine Encounter for screening mammogram for breast cancer 1 Occurrences starting 07/09/2024 until 08/08/2025 [facility] Work Phone: Comment on above: 1 Occurrences starti ng 07/09/2024 until 08/08/2025 End: 04-01-2023 Dxa bone density study axial skeleton DXA-AXIAL SKELETON WITH VFA Radiology Routine Postlaminectomy syndrome, not elsewhere classified Asymptomatic postmenopausal status 1 Occurrences starting 03/02/2022 until 04/01/2023 [facility] Work Phone: Comment on above: 1 Occurrences starti ng 03/02/2022 until 04/01/2023 Hemoglobin.gastroint atli nal.lower [Presence] in Stool by Immunoassay FECAL OCCULT BLOOD TEST Lab Routine Colon cancer screening Ordered: 07/20/2021 [facility] Work Phone: Comment on above: Ordered: 07/20/2021 Hemoglobin.gastroint tali nal.lower [Presence] in Stool by Immunoassay FECAL OCCULT BLOOD TEST Lab Routine Screening for colon cancer Ordered: 07/18/2022 [facility] Work Phone: Comment on above: Ordered: 07/18/2022 End: 06-28-2024 MR Lumbar spine WO contrast MRI LUMBAR SPINE WO IVCON Radiology Routine Leg weakness, bilateral Fusion of spine of thoracic region Spinal stenosis of lumbar region with neurogenic claudication Spondylosis with myelopathy, thoracic region 1 Occurrences starting 05/30/2023 until 06/28/2024 [facility] Work Phone: Comment on above: 1 Occurrences starti ng 05/30/2023 until 06/28/2024 End: 06-28-2024 MR Thoracic spine WO contrast MRI THORACIC SPINE WO IVCON Radiology Routine Leg weakness, bilateral Fusion of spine of thoracic region Spinal stenosis of lumbar region with neurogenic claudication Spondylosis with myelopathy, thoracic region 1 Occurrences starting 05/30/2023 until 06/28/2024 [facility] Work Phone: Comment on above: 1 Occurrences starti ng 05/30/2023 until 06/28/2024 Patient Education ED Back Pain ( Acute or Chronic) ED Sciatica [facility] Work Phone: Patient referral [facility] Work Phone: Pneumococcal vaccination PNEUMOC OCCAL VACCINE (PREVNAR 20) Immunization/Injection Routine Encounter for immunization Ordered: 07/18/2022 [facility] Work Phone: Comment on above: Ordered: 07/18/2022 End: 10-22-2022 Screening mammography bi 2-view breast inc cad XAVIER SCREENING Radiology Routine Encounter for screening mammogram for breast cancer 1 Occurrences starting 09/22/2021 until 10/22/2022 [facility] Work Phone: Comment on above: 1 Occurrences starti ng 09/22/2021 until 10/22/2022 Tdap vaccine 7 yrs/> im TDAP VAC CINE, AGE 7+ YR (ADACEL, BOOSTRIX) Immunization/Injection Routine Encounter for immunization Ordered: 07/18/2022 [facility] Work Phone: Comment on above: Ordered: 07/18/2022 End: 05-05-2024 XR Shoulder - right 3 Views XR SHOULDER GENERAL 3V OR MORE AP/TRUE AP/OTHER RIGHT Radiology Routine Right shoulder pain, unspecified chronicity 1 Occurrences starting 04/06/2023 until 05/05/2024 [facility] Work Phone: Comment on above: 1 Occurrences starti ng 04/06/2023 until 05/05/2024 End: 06-28-2024 XR Thoracic and lumbar spine Views for scoliosis W standing XR SCOLIOSIS PA STAND/LAT 2V Radiology Routine Leg weakness, bilateral Fusion of spine of thoracic region Spinal stenosis of lumbar region with neurogenic claudication Spondylosis with myelopathy, thoracic region 1 Occurrences starting 05/30/2023 until 06/28/2024 [facility] Work Phone: Comment on above: 1 Occurrences starti ng 05/30/2023 until 06/28/2024 [facility] Work Phone: [facility] Immunizations Immunization Date Immunization Notes Care Provider Kenya lizarraga 05-22-2023 TD(adult) unspecifie d formulation Herminio HANSEN Work Phone: [facility] Work Phone: 05-22-2023 tetanus and diphther ia toxoids, adsorbed, preservative free, for adult use (5 Lf of tetanus toxoid and 2 Lf of diphtheria toxoid) Herminio HANSEN Work Phone: [facility] 12-23-2022 Pfizer Covid-19 (Comirnaty) Dr. Melissa Muhammad Work Phone: [facility] 11-09-2022 influenza (HD-IIV4) vaccine, age 65+ yr, high dose, quadrivalent, PF (FLUZONE HIGH-DOSE) Melissa Muhammad MD Work Phone: [facility] 11-09-2022 influenza virus vaccine, unspecified formulation Melissa Muhammad MD Work Phone: [facility] 12-15-2021 influenza, injectabl e, quadrivalent, preservative free Melissa Muhammad MD Work Phone: [facility] 05-28-2021 zoster vaccine recombinant Neo Gar DO Work Phone: [facility] 12-16-2020 Covid (Moderna) [facility] 11-24-2020 Influenza virus vaccine [facility] 11-24-2020 influenza, seasonal, injectable, preservative free Melissa Muhammad MD Work Phone: [facility] 11-20-2020 influenza, high-dose , quadrivalent vaccine (FLUZONE HIGH DOSE QUADRIVALENT) Neo Gar DO Work Phone: [facility] 10-16-2020 pneumococcal conjuga te vaccine, 13 valent Neo Gar DO Work Phone: [facility] 10-16-2020 pneumococcal polysaccharide vaccine, 23 valent Neo Gar DO Work Phone: [facility] 10-16-2020 zoster vaccine recombinant Neo Gar DO Work Phone: [facility] 04-22-2020 Covid (Moderna) [facility] 04-22-2020 COVID-19 vaccine (JOSEFA) Melissa Muhammad MD Work Phone: [facility] 03-25-2020 Covid (Moderna) [facility] 03-25-2020 COVID-19 vaccine (JOSEFA) Melissa Muhammad MD Work Phone: [facility] 12-12-2019 influenza (aIIV4) vaccine, age 65+ yr, quadrivalent, PF (FLUAD QUADRIVALENT) Melissa Muhammad MD Work Phone: [facility] 12-12-2019 influenza virus vaccine, unspecified formulation Neo Gar DO Work Phone: [facility] 12-12-2019 influenza, seasonal, injectable Melissa Muhammad MD Work Phone: [facility] 11-27-2019 unknown vaccine or immune globulin Melissa Muhammad MD Work Phone: [facility] 12-04-2018 influenza, injectabl e, quadrivalent, contains preservative Neo Habjan DO Work Phone: [facility] 11-21-2017 Influenza virus vaccine [facility] 11-21-2017 influenza, seasonal, injectable, preservative free Neo Habjan DO Work Phone: [facility] 11-10-2014 influenza, seasonal, injectable Neo Habjan DO Work Phone: [facility] 06-09-2012 tetanus toxoid, redu rolando diphtheria toxoid, and acellular pertussis vaccine, adsorbed Neo Habjan DO Work Phone: [facility] Work Phone: 05-20-2012 tetanus toxoid, redu rolando diphtheria toxoid, and acellular pertussis vaccine, adsorbed Melissa Muhammad MD Work Phone: [facility] NEGATED: Highlighted row has not occurred!07-18-2022 pneumococcal (PCV20) vaccine, 20 valent (PREVNAR 20) Josephine Hawthorne APRN.PERSONNEL DIRECTOR Work Phone: [facility] Work Phone: Comment on above: Deferred: Postponed NEGATED: Highlighted row has not occurred!07-18-2022 tetanus toxoid, reduced diphtheria toxoid, and acellular pertussis vaccine, adsorbed Josephine Hawthorne SEAL DELIVERY VEHICLE TEAM TECHNICIAN.PERSONNEL DIRECTOR Work Phone: [facility] Work Phone: Comment on above: Deferred: Postponed Payers Date Payer Category Payer Unknown 2023 Self-pay [id number] 2022 Private Health Insurance [id number] 2022 Unknown [id number] 2021 Medicare [id number] 2020 Unknown [employer] [place]URE[place] INSURED [id number] 2020-Present [phone] [address] [place] [address] PPO [id number] 2018 Medicare [id number] 2018 Medicare [id number] Private Health Insurance [facility] [id number] Unknown [employer] [id number] [facility] [id number] Unknown [id number] .840.1.208538.3.579.2. 462 Unknown [id number] 840.1.823284.3.579.2. 462 Unknown [id number] 2.16.840.1.335401.3.579.2. 462 Unknown [id number] 2.16.840.1.520674.3.579.2. 462 Unknown [id number] 2.16.840.1.187821.3.579.2. 462 Unknown [id number] 2.16.840.1.544657.3.579.2. 462 Unknown [id number] 2.16.840.1.672272.3.579.2. 462 Unknown [id number] 2.840.1.289760.3.579.2. 462 Unknown [id number] 2.840.1.019972.3.579.2. 462 Unknown [id number] 2.840.1.225060.3.579.2. 462 Unknown [id number] 2.840.1.842691.3.579.2. 462 Unknown [id number] 2.840.1.556446.3.579.2. 462 Unknown [id number] 2.840.1.019779.3.579.2. 462 Unknown [id number] 2.840.1.368595.3.579.2. 462 Unknown [id number] 2.840.1.586563.3.579.2. 462 Unknown [id number] 2.840.1.164006.3.579.2. 462 Unknown [id number] 2.840.1.846118.3.579.2. 462 Unknown [id number] 2.16840.1.089361.3.579.2. 462 Unknown [id number] 2.16840.1.182785.3.579.2. 462 Unknown [id number] 2.16840.1.118002.3.579.2. 462 Unknown [id number] 2.16840.1.910398.3.579.2. 462 Unknown [id number] 2.16.840.1.465741.3.579.2. 462 Unknown [id number] 2.16.840.1.462876.3.579.2. 462 Unknown [id number] 2.16.840.1.538211.3.579.2. 462 Unknown [id number] 2.16.840.1.233145.3.579.2. 462 Unknown [id number] 2.16.840.1.612681.3.579.2. 462 Unknown [id number] 2.16.840.1.732977.3.579.2. 462 Unknown [id number] 2.16840.1.300323.3.579.2. 462 Unknown [id number] 2.16840.1.518244.3.579.2. 462 Unknown [id number] 2.16840.1.811896.3.579.2. 462 Unknown [id number] 2.16840.1.634810.3.579.2. 462 Unknown [id number] 2.16840.1.688158.3.579.2. 462 Unknown [id number] 2.16.840.1.746331.3.579.2. 462 Unknown [id number] 2.16840.1.494386.3.579.2. 462 Unknown [id number] 2.16.840.1.161715.3.579.2. 462 Unknown [id number] 2.16.840.1.938054.3.579.2. 462 Unknown [id number] 2.16.840.1.002425.3.579.2. 462 Unknown [id number] 2.16.840.1.992330.3.579.2. 462 Unknown [id number] 2.16.840.1.803385.3.579.2. 462 Unknown [id number] 2.16.840.1.644571.3.579.2. 462 Unknown [id number] 2.16.840.1.630605.3.579.2. 462 Unknown [id number] 2.16.840.1.648539.3.579.2. 462 Unknown [id number] 2.16.840.1.989545.3.579.2. 462 Unknown [id number] 2.16.840.1.798128.3.579.2. 462 Unknown [id number] 2.16.840.1.082789.3.579.2. 462 Unknown [id number] 2.16.840.1.617329.3.579.2. 462 Unknown [id number] 2.16.840.1.998568.3.579.2. 462 Unknown [id number] 2.16.840.1.225598.3.579.2. 462 Unknown [id number] 2.16.840.1.224618.3.579.2. 462 Social History Date Type Detail Facility Start: 05-02-2023 End: 06-02-2023 Assertion Unknown if ever smoked [facility] Work Phone: Start: 11-19-2020 End: 06-25-2024 Tobacco smoking status NHIS Ex-smoker [facility] Start: 05-01-2021 End: 08-12-2024 Alcohol intake Current non-drinker of alcohol (finding) [facility] Start: 04-24-2021 End: 03-02-2022 History SDOH Alcohol Frequency 1 [facility] Start: 04-24-2021 End: 03-02-2022 History SDOH Social Connections Phone 5 [facility] Start: 04-24-2021 History SDOH Social Connections Meetings 3 [facility] Start: 04-24-2021 End: 03-02-2022 History SDOH Social Connections Living 7 [facility] Start: 04-24-2021 End: 03-02-2022 History SDOH Housing Unable to Pay 2 [facility] Start: 11-19-2020 End: 07-18-2022 Tobacco Comment quit prior to 1979 [facility] Start: 1955 Sex Assigned At Female C [facility] Start: 04-20-2021 End: 07-20-2021 Exposure to SARS-CoV-2 (event) Not sure [facility] History of tobacco use Current smoker [facility] Work Phone: History of tobacco use Cigarette Smoker C [facility] Work Phone: Start: 11-19-2020 End: 06-25-2024 Tobacco use and exposure Smokeless tobacco non-user [facility] Work Phone: Start: 03-02-2022 History SDOH Alcohol Std Drinks 0 [facility] Start: 03-02-2022 History SDOH Social Connections Get Together 4 [facility] Start: 03-02-2022 History SDOH Social Connections Meetings 98 [facility] Start: 03-02-2022 End: 07-18-2022 History of Social function [facility] Start: 03-02-2022 End: 07-18-2022 Social connection and isolation panel [facility] Do you belong to any clubs or organizations such as restorationism groups, unions, fraternal or athletic groups, or school groups? No [facility] Start: 01-15-2012 How often do you att end meetings of the clubs or organizations you belong to? Patient refused [facility] Are you now , , , , never or living with a partner? Never [facility] How often to you hav e a drink containing alcohol? Never [facility] Do you feel stress - tense, restless, nervous, or anxious, or unable to sleep at night because your mind is troubled all the time - these days [OSQ] Very much [facility] (I/We) worried zhen er (my/our) food would run out before (I/we) got money to buy more. Never true [facility] Start: 08-24-2019 Gender identity Identifies as female gender (finding) [facility] Start: 08-24-2019 Sexual orientation Heterosexua l (finding) [facility] How hard is it for y ou to pay for the very basics like food, housing, medical care, and heating Somewhat hard [facility] Start: 02-08-2018 None [facility] Start: 05-25-2018 With Family [facility] Start: 02-08-2018 Non-smoker [facility] Do you belong to any clubs or organizations such as restorationism groups, unions, fraternal or athletic groups, or school groups? Yes [facility] NEGATED: Highlighted rowStart: 01-18-2019 End: 01-18-2019 Employment detail Employment detail [facility] Work Phone: NEGATED: Highlighted row [facility] Medical Equipment Procedure Code Equipment Code Equipment Origin al Text Equipment Identifier Dates Surgical procedure on lumbar spine including any or all of laminectomy, discectomy, a Collagen haemostatic agent, non-antimicrobial [id number] FDA Start: 06-08-2023 Surgical procedure on lumbar spine including any or all of laminectomy, discectomy, a Collagen haemostatic agent, non-antimicrobial [id number] [id number] FDA Start: 06-08-2023 Plate Reflex Hyb rid Titanium 12mm Bone Level 1 Spine Cervical Anterior - [id number] Start: 02-02-2018 Screw Dynatran Reflex Hybrid 4mm Titanium 14mm Bone Variable Angle Self - [id number] Start: 02-02-2018 Finn Scrw Spn Ms a 5.5x40 [id number] Start: 11-24-2020 Spacer Bio Avs 4 d Lordosis 12mm Cortical Cancellous [id number] Allograft - [id number] Start: 02-02-2018 Goals Date Patient Goal Desired Activity /State Functional Status Date Assessment Result Facility 06-09-2023 Functional status Bedrest [facility] Work Phone: 12-03-2020 Are you deaf, or do you have serious difficulty hearing No 12/03/2020 4:48 PM Lauren Avendano RN No [facility] 12-03-2020 Are you blind, or do you have serious difficulty seeing, even when wearing glasses No 12/03/2020 4:48 PM Lauren Avendano RN No [facility] 12-03-2020 Do you have serious difficulty walking or climbing stairs Yes 12/03/2020 4:48 PM Lauren Avendano, PRESTON Yes [facility] 12-03-2020 Do you have difficul ty dressing or bathing No 12/03/2020 4:48 PM Lauren Avendano, PRESTON No [facility] 12-03-2020 Because of a physica l, mental, or emotional condition, do you have difficulty doing errands alone such as visiting a physician's office or shopping Yes 12/03/2020 4:48 PM Lauren Avendano RN Yes [facility] Mental Status Date Assessment Result Facility 06-09-2023 Cognitive function Level Of Cons ciousness Follows Commands;Drowsy [facility] Work Phone: 06-08-2023 Cognitive function Voice/Name [facility] Work Phone: 12-03-2020 Because of a physica l, mental, or emotional condition, do you have serious difficulty concentrating, remembering, or making decisions Yes 12/03/2020 4:48 PM Lauren Avendano RN Yes [facility] Clinical Notes 12-15-2014 to 12-06-2024 Telephone Encounter - Liza Rucker LPN - 10/03/2024 10:08 AM EDTTelephone Encounter - Liza Rucker LPN - 10/03/2024 10:08 AM Magda Menon MA - 09/26/2024 8:33 AM EDT Note Date & Type Note Facility 12-06-2024 Note HNO ID: [id number] Author: JOSEPHINE HAWTHORNE APRN.PERSONNEL DIRECTOR Service: ? Author Type: Nurse Specialist Type: Progress Notes Filed: 12/06/2024 11:15 Note Text: [facility] SUBJECTIVE: Anxiety Screening Never done RSV Vaccine(1 - Risk 60-74 years 1-dose series) Never done Mammogram Screening due on 11/22/2017 Bone Density Screening Never done Medicare Annual Wellness Visit Never done Advance Directive Discussion due on 02/14/2024 Influenza Vaccine(1) due on 10/14/2024 Covid-19 Vaccine(2024- season) due on 10/14/2024 HPI Sonia Karimi is a 69 year old female. 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 ACTIVE PROBLEM LIST Essential Hypertension Hyperlipidemia Osteoarthritis of Both Knees Iris Treated With Bipap Class 3 severe obesity due to excess calories without serious comorbidity with body mass index (BMI) of 45.0 to 49.9 in adult Cervical Myopathy Cervical Spondylosis With Myelopathy History of Cervical Polypectomy Paraparesis (Hcc) Thyroid Nodule Ventricular Tachycardia, Non-Sustained (Hcc) Spondylosis With Myelopathy, Thoracic Region Paronychia of Right Middle Finger Fusion of Spine of Thoracic Region Acute Postoperative Pain Pseudogout of Right Knee Abnormal Urinalysis Rash and nonspecific skin eruption on right thigh Major Depressive Disorder, Recurrent, Mild Chronic Obstructive Pulmonary Disease (Hcc) Presents today for a routine visit. Sonia Karimi is a 69-year-old female with depression, anxiety, allergic rhinitis, and obstructive sleep apnea on CPAP, presenting for evaluation of bilateral lower extremity edema and persistent ocular discharge. Sonia Karimi is a 69-year-old female with a history of depression, anxiety, and IRIS, presenting for evaluation of bilateral pedal edema, eye discharge, and urinary frequency. Bilateral Pedal Edema: - Bilateral pedal edema x1 month. - Noted increased time sitting upright. - No current use of diuretics; last used approximately 10 years ago. - Denies dyspnea, chest pain, or palpitations. - Occasional leg pain at night, described as spasmy feet, relieved by muscle relaxant. Eye Discharge: - Persistent eye discharge described as gunky with pus in the corners and hard things. - Symptoms present all day, requiring frequent wiping. - No associated pain or vision changes. - Previously advised by Dr. Muhammad to use saline solution, which has not been effective. - Has not consulted an psychiatric clinical nurse specialist for this issue. - Reports concurrent sinus congestion with yellow nasal discharge and recent headaches, possibly related to allergies. - History of sinus infection a couple of months ago, with symptoms resolved except for eye discharge. Urinary Frequency: - Increased urinary frequency, urinating every 30 minutes with significant volume. - No urinary incontinence. - Recent history of two UTIs, with suspicion that the first was not fully resolved. - Reports nocturia every two hours. Anxiety: - Well-controlled with Vistaril, but recent increase in anxiety episodes. - Experiences panic when lying flat or during exertion, fearing dyspnea. - Vistaril taken at night, provides relief. - Requests additional Vistaril for PRN use during increased anxiety episodes. Depression: - Well-controlled with current medication regimen. Obstructive Sleep Apnea: - Uses CPAP machine; has not been assessed recently. ROS Head: (+) morning headaches Eyes: (+) ocular discharge, (+) ocular crusting, (-) eye pain, (-) eye watering, (-) eye burning, (-) vision changes Ears/Nose/Mouth/Throat: (+) nasal congestion, (+) yellow nasal discharge Cardiovascular: (-) chest pain, (-) palpitations Respiratory: (-) dyspnea Genitourinary: (+) urinary frequency, (-) urinary incontinence Musculoskeletal: (+) bilateral pedal edema, (+) nocturnal foot muscle spasms Psychiatric: (+) anxiety, (+) panic attacks, (-) depressed mood Objective BP 126/84 Pulse 80 Resp 14 SpO2 96% Physical Exam Vitals and nursing note reviewed. Constitutional: Appearance: Normal appearance. HENT: Head: Normocephalic and atraumatic. Eyes: Conjunctiva/sclera: Conjunctivae normal. Comments: Drainage present corners of both eyes. Neck: Thyroid: No thyroid mass or thyromegaly. Vascular: Normal carotid pulses. Cardiovascular: Rate and Rhythm: Normal rate and regular rhythm. Pulses: Carotid pulses are 2+ on the right side and 2+ on the left side. Radial pulses are 2+ on the right side and 2+ on the left side. Heart sounds: Normal heart sounds. Pulmonary: Effort: Pulmonary effort is normal. Breath sounds: Normal breath sounds. Abdominal: General: Bowel sounds are normal. Palpations: Abdomen is soft. Musculoskeletal: Lumbar back: Spasms and tenderness present. Right lower leg: Edema (foot and ankle) present. Left lower leg: Edema (foot and ankle) present. Skin: General: Skin is warm and dry. Neurological: General: No focal deficit (more content not included)... [facility] 10-03-2024 Telephone encounter Note Patient notified of providers message and verbalized understanding [facility] 10-03-2024 Miscellaneous Notes Patient notified of providers message and verbalized understanding Noted grew Proteus mirabailis and sensitive to almost all antibiotics. Given current med, and since did not resolve with Augmentin, would try cefuroxime. Since on an acid gerardo, recommend take med after eating to improve absorption The following approved medication requests have been transmitted electronically. Requested Prescriptions Signed Prescriptions Disp Refills cefUROXime (CEFTIN) 500 mg tablet 14 tablet 0 Sig: Take 1 tablet by mouth two times a day for 7 days. Authorizing Provider: MELISSA MUHAMMAD MD Patient calls and states that she had urine done on 10/01/2024 and is asking about results. Patient was previously on Augmentin x 7 days on 08/21/2024. Latest Ref Rng 09/30/2024 Color Yellow Yellow Clarity Clear Turbid ! Glucose, Urine Negative Negative Bilirubin, Urine Negative Negative Ketones, Urine Negative Negative Specific [place], Ur 1.005 - 1.030 1.015 Hemoglobin/Blood,Ur Negative Negative pH, Urine 5.0 - 8.0 8.5 (H) Protein, Urine Negative 1+ ! Urobilinogen 0.2-1.0 EU/dL 0.2 EU/dL Nitrites Negative Negative Leukest Negative 3+ ! WBC, Urine 0-5 /HPF >20 /HPF ! RBC, Urine 0-2 /HPF 0-2 /HPF Bacteria uL Negative uL >9,821 (H) Epithelial Cells /HPF None Seen Hyaline Cast 0 /LPF 4-10 /LPF ! 09/30/2024 Culture >=100,000 CFU/ml Proteus mirabilis ! Culture 10,000 -<50,000 CFU/ml Normal urogenital yanick Proteus mirabilis (1) Antibiotic Interpretation Method Status Ampicillin Susceptible MINIMUM INHIBITORY CONCENTRATION(VITEK) Final Cefazolin Susceptible MINIMUM INHIBITORY CONCENTRATION(VITEK) Final For uncomplicated urinary tract infections, cefazolin results can be used to predict susceptibility or resistance to cephalexin. Ceftriaxone Susceptible MINIMUM INHIBITORY CONCENTRATION(VITEK) Final Cefepime Susceptible MINIMUM INHIBITORY CONCENTRATION(VITEK) Final Ertapenem Susceptible MINIMUM INHIBITORY CONCENTRATION(VITEK) Final Meropenem Susceptible MINIMUM INHIBITORY CONCENTRATION(VITEK) Final Ampicillin/Sulbact Susceptible MINIMUM INHIBITORY CONCENTRATION(VITEK) Final Piperacillin/Tazobac Susceptible MINIMUM INHIBITORY CONCENTRATION(VITEK) Final Gentamicin Susceptible MINIMUM INHIBITORY CONCENTRATION(VITEK) Final Tobramycin Susceptible MINIMUM INHIBITORY CONCENTRATION(VITEK) Final Trimeth sulfameth Susceptible MINIMUM INHIBITORY CONCENTRATION(VITEK) Final Ciprofloxacin Susceptible MINIMUM INHIBITORY CONCENTRATION(VITEK) Final Nitrofurantoin Resistant MINIMUM INHIBITORY CONCENTRATION(VITEK) Final documented in this encounter [facility] 10-02-2024 Telephone encounter Note Noted grew Proteus mirabailis and sensitive to almost all antibiotics. Given current med, and since did not resolve with Augmentin, would try cefuroxime. Since on an acid gerardo, recommend take med after eating to improve absorption The following approved medication requests have been transmitted electronically. Requested Prescriptions Signed Prescriptions Disp Refills cefUROXime (CEFTIN) 500 mg tablet 14 tablet 0 Sig: Take 1 tablet by mouth two times a day for 7 days. Authorizing Provider: MELISSA MUHAMMAD MD [facility] 10-02-2024 Telephone encounter Note Patient calls and states that she had urine done on 10/01/2024 and is asking about results. Patient was previously on Augmentin x 7 days on 08/21/2024. Latest Ref Rng 09/30/2024 Color Yellow Yellow Clarity Clear Turbid ! Glucose, Urine Negative Negative Bilirubin, Urine Negative Negative Ketones, Urine Negative Negative Specific [place], Ur 1.005 - 1.030 1.015 Hemoglobin/Blood,Ur Negative Negative pH, Urine 5.0 - 8.0 8.5 (H) Protein, Urine Negative 1+ ! Urobilinogen 0.2-1.0 EU/dL 0.2 EU/dL Nitrites Negative Negative Leukest Negative 3+ ! WBC, Urine 0-5 /HPF >20 /HPF ! RBC, Urine 0-2 /HPF 0-2 /HPF Bacteria uL Negative uL >9,821 (H) Epithelial Cells /HPF None Seen Hyaline Cast 0 /LPF 4-10 /LPF ! 09/30/2024 Culture >=100,000 CFU/ml Proteus mirabilis ! Culture 10,000 -<50,000 CFU/ml Normal urogenital yanick Proteus mirabilis (1) Antibiotic Interpretation Method Status Ampicillin Susceptible MINIMUM INHIBITORY CONCENTRATION(VITEK) Final Cefazolin Susceptible MINIMUM INHIBITORY CONCENTRATION(VITEK) Final For uncomplicated urinary tract infections, cefazolin results can be used to predict susceptibility or resistance to cephalexin. Ceftriaxone Susceptible MINIMUM INHIBITORY CONCENTRATION(VITEK) Final Cefepime Susceptible MINIMUM INHIBITORY CONCENTRATION(VITEK) Final Ertapenem Susceptible MINIMUM INHIBITORY CONCENTRATION(VITEK) Final Meropenem Susceptible MINIMUM INHIBITORY CONCENTRATION(VITEK) Final Ampicillin/Sulbact Susceptible MINIMUM INHIBITORY CONCENTRATION(VITEK) Final Piperacillin/Tazobac Susceptible MINIMUM INHIBITORY CONCENTRATION(VITEK) Final Gentamicin Susceptible MINIMUM INHIBITORY CONCENTRATION(VITEK) Final Tobramycin Susceptible MINIMUM INHIBITORY CONCENTRATION(VITEK) Final Trimeth sulfameth Susceptible MINIMUM INHIBITORY CONCENTRATION(VITEK) Final Ciprofloxacin Susceptible MINIMUM INHIBITORY CONCENTRATION(VITEK) Final Nitrofurantoin Resistant MINIMUM INHIBITORY CONCENTRATION(VITEK) Final [facility] 09-28-2024 Telephone encounter Note Pt notified. She says will come on Monday10/01/24 [facility] 09-28-2024 Miscellaneous Notes Pt notified. She says will come on Monday10/01/24 Filed order Pt calls in and reports she was on antibiotics for a UTI. Pt is reporting that she finished the antibiotics but she is still having burning, frequency, and chills every time she urinates.Pt states the urine color and smell have cleared up. Pt denies fever. Pt is asking if provider would order another UA and culture for her to come in and get. Please call and advise. She uses [facility] for any medication if UA would come back abnormal. Miguel Masterson RN documented in this encounter [facility] 09-27-2024 Telephone encounter Note Filed order [facility] 09-26-2024 Telephone encounter Note Pt calls in and reports she was on antibiotics for a UTI. Pt is reporting that she finished the antibiotics but she is still having burning, frequency, and chills every time she urinates.Pt states the urine color and smell have cleared up. Pt denies fever. Pt is asking if provider would order another UA and culture for her to come in and get. Please call and advise. She uses [facility] for any medication if UA would come back abnormal. Miguel Masterson RN [facility] 09-26-2024 Note HNO ID: [id number] Author: MAGDA RODRIGUEZ MA Service: ? Author Type: Guest Attendant Type: Progress Notes Filed: 09/26/2024 08:34 Note Text: POPULATION HEALTH NAVIGATION OUTREACH Action/FYI Spoke to patient. She declined scheduling at this time as she was still in bed. Will schedule when she comes in to the clinic for podiatry appointment. Patient having continued UTI symptoms including chills and was transferred to PCP's nurse. Topic Due (Y or N) Comments Annual Wellness Exam Yes PCP Follow up No Colorectal Cancer Screening Yes A1C No HTN/Controlling BP No HCC Yes Updated appointment notes No Reason for Outreach Care Gap/HCC or Scheduling Wellness Visits Care Gaps due: Medicare Annual Wellness Visit Colorectal Cancer Screening Patient Contacted: Spoke to patient/parent/or legal guardian Patient identified by name and : Yes Care Gap/HCC/Scheduling Wellness actions taken: Patient declined: Patient will contact office directly to schedule HCC related Navigation Signature: Magda Rodriguez MA September 26, 2024 8:33 AM [facility] 09-26-2024 History of Presen t illness Narrative POPULATION HEALTH NAVIGATION OUTREACH Action/FYI Spoke to patient. She declined scheduling at this time as she was still in bed. Will schedule when she comes in to the clinic for podiatry appointment. Patient having continued UTI symptoms including chills and was transferred to PCP's nurse. Topic Due (Y or N) Comments Annual Wellness Exam Yes PCP Follow up No Colorectal Cancer Screening Yes A1C No HTN/Controlling BP No HCC Yes Updated appointment notes No Reason for Outreach Care Gap/HCC or Scheduling Wellness Visits Care Gaps due: Medicare Annual Wellness Visit Colorectal Cancer Screening Patient Contacted: Spoke to patient/parent/or legal guardian Patient identified by name and : Yes Care Gap/HCC/Scheduling Wellness actions taken: Patient declined: Patient will contact office directly to schedule HCC related Navigation Signature: Magda Rodriguez MA September 26, 2024 8:33 AM documented in this encounter [facility] 09-26-2024 Note Patient Outreach (NE TNAV) SONIA KARIMI ([id number]) 1955 F Date Time Provider Department 09/26/24 MAGDA RODRIGUEZ During your visit today, we recorded the following information about you: Magda Rodriguez MA 09/26/2024 8:34 AM Signed POPULATION HEALTH NAVIGATION OUTREACH Action/FYI Spoke to patient. She declined scheduling at this time as she was still in bed. Will schedule when she comes in to the clinic for podiatry appointment. Patient having continued UTI symptoms including chills and was transferred to PCP's nurse. Topic Due (Y or N) Comments Annual Wellness Exam Yes PCP Follow up No Colorectal Cancer Screening Yes A1C No HTN/Controlling BP No HCC Yes Updated appointment notes No Reason for Outreach Care Gap/HCC or Scheduling Wellness Visits Care Gaps due: Medicare Annual Wellness Visit Colorectal Cancer Screening Patient Contacted: Spoke to patient/parent/or legal guardian Patient identified by name and : Yes Care Gap/HCC/Scheduling Wellness actions taken: Patient declined: Patient will contact office directly to schedule HCC related Navigation Signature: Magda Rodriguez MA September 26, 2024 8:33 AM Allergies As of Date: 09/26/2024 Noted Allergy Reaction ATIVAN (LORAZEPAM) 03/26/2012 4 - Hives NEOMYCIN 02/02/2018 9 - Itching Comments: Hives, itching VALIUM (DIAZEPAM) 11/28/2020 5 - Intolerance Comments: somnolence Date Reviewed: 08/12/2024 Reviewed by: Liza Rucker LPN - Fully Assessed Reason for Visit: Population Health Navigation Outreach [3910] Cmt: [place]/Workbench/ACO Prescriptions as of 09/26/2024 - DULoxetine DR (CYMBALTA) 30 mg capsule Take 1 capsule by mouth daily at bedtime. daily - DULoxetine DR (CYMBALTA) 60 mg capsule Take 1 capsule by mouth once daily. Take in the morning. - gabapentin (NEURONTIN) 800 mg tablet Take 1 tablet by mouth three times a day for 180 days. - amLODIPine (NORVASC) 10 mg tablet Take 1 tablet by mouth once daily. - benzonatate (TESSALON PERLE) 100 mg capsule Take 2 capsules by mouth three times a day as needed. - fluticasone (FLONASE ALLERGY RELIEF) 50 mcg/actuation nasal spray Use 1 spray in each nostril once daily. - polyethylene glycol 3350 (MIRALAX) 17 gram/dose powder Take 17 g by mouth once daily. as needed for constipation. Dissolve dose in 4 - 8 ounces of liquid and take as directed. Take in the morning. - tiZANidine (ZANAFLEX) 4 mg tablet Take 1 tablet by mouth every 8 hours. - atorvastatin (LIPITOR) 10 mg tablet Take 1 tablet by mouth once daily. - hydrOXYzine pamoate (VISTARIL) 25 mg capsule Take 1 capsule by mouth daily at bedtime. daily - losartan (COZAAR) 50 mg tablet Take 1 tablet by mouth two times a day. - pantoprazole DR (PROTONIX) 40 mg tablet Take 1 tablet by mouth two times a day. - cholecalciferol (VITAMIN D3) 50 mcg (2,000 unit) tablet Take 1 tablet by mouth once daily. - melatonin 5 mg tablet Take 1 tablet by mouth daily at bedtime. - diclofenac XR (VOLTAREN-XR) 100 mg Tb24 TAKE 1 TABLET BY MOUTH DAILY WITH FOOD NEEDED FOR PAIN - gabapentin (NEURONTIN) 300 mg capsule Take 1 capsule by mouth two times a day for 180 days. - [employer] Wheel[employer] - diclofenac (VOLTAREN) 1 % topical gel Apply 4 g to affected area four times daily. FOR EXTERNAL USE ONLY APPLY TO: right knee Use provided dosing card to measure the ordered dose. - cloNIDine HCl (CATAPRES) 0.1 mg tablet Take 1 tablet by mouth twice daily. - acetaminophen (TYLENOL) 500 mg tablet Take 500 mg by mouth twice daily as needed for pain. - COMPOUNDED PRESCRIPTION BIPAP 1 liter bleed in 12/5 cm. RR 14 Replacement machine with heated humidity. CPAP mask and supplies. Use nightly. Problem List As Of Date 09/26/2024 Noted Resolved Essential hypertension [I10] 12/15/2014 Cervical polyp [N84.1] 12/15/2014 11/18/2019 Hyperlipidemia [E78.5] 12/15/2014 Osteoarthritis of both knees [M17.0] 12/15/2014 IRIS treated with BiPAP [G47.33] 12/15/2014 Class 3 severe obesity due to excess calories w*06/02/2017 Cervical myopathy [G72.9] 01/30/2018 Cervical spondylosis with myelopathy [M47.12] 01/30/2018 History of cervical polypectomy [Z98.890, Z87.4*11/18/2019 Paraparesis (HCC) [G82.20] Thyroid nodule [E04.1] 11/19/2020 Ventricular tachycardia, non-sustained (HCC) [I*11/19/2020 Spondylosis with myelopathy, 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*11/21/2020 Paronychia of right middle finger [L03.011] 11/23/2020 Fusion of spine of 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43.24] 11/25/2020 Acute postoperative pain [G89.18] 11/25/2020 Pseudogout of right knee [M11.261] 11/26/2020 Abnormal urinalysis [R82.90] 12/01/2020 Rash and nonspecific skin eruption on right thi*12/03/2020 Major depressive disorder, recurrent, mild (HCC*09/02/2022 Chronic obstructive pulmonary disease (HCC) [J4*11/09/2022 (more content not included)... [facility] 09-23-2024 Telephone encounter Note The following approved medication requests have been transmitted electronically. Requested Prescriptions Signed Prescriptions Disp Refills DULoxetine DR (CYMBALTA) 30 mg capsule 90 capsule 1 Sig: Take 1 capsule by mouth daily at bedtime. daily Authorizing Provider: MELISSA MUHAMMAD DULoxetine DR (CYMBALTA) 60 mg capsule 90 capsule 1 Sig: Take 1 capsule by mouth once daily. Take in the morning. Authorizing Provider: MELISSA MUHAMMAD gabapentin (NEURONTIN) 800 mg tablet 270 tablet 1 Sig: Take 1 tablet by mouth three times a day for 180 days. Authorizing Provider: MELISSA MUHAMMAD MD [facility] 09-23-2024 Miscellaneous Notes The following approved medication requests have been transmitted electronically. Requested Prescriptions Signed Prescriptions Disp Refills DULoxetine DR (CYMBALTA) 30 mg capsule 90 capsule 1 Sig: Take 1 capsule by mouth daily at bedtime. daily Authorizing Provider: MELISSA MUHAMMAD DULoxetine DR (CYMBALTA) 60 mg capsule 90 capsule 1 Sig: Take 1 capsule by mouth once daily. Take in the morning. Authorizing Provider: MELISSA MUHAMMAD gabapentin (NEURONTIN) 800 mg tablet 270 tablet 1 Sig: Take 1 tablet by mouth three times a day for 180 days. Authorizing Provider: MELISSA MUHAMMAD MD The patient has been identified by name and date of : Yes Caregiver verified no other encounters exist for this prescription request: Yes Caregiver confirmed with patient/requestor that no other refills are due, in the near future, with this provider at this time: Yes The last office visit in the department: 08/12/2024 Does the patient have a future office visit with this provider/department: No Requested Prescriptions Pending Prescriptions Disp Refills DULoxetine DR (CYMBALTA) 30 mg capsule 90 capsule 1 Sig: Take 1 capsule by mouth daily at bedtime. daily DULoxetine DR (CYMBALTA) 60 mg capsule 90 capsule 1 Sig: Take 1 capsule by mouth once daily. Take in the morning. gabapentin (NEURONTIN) 800 mg tablet 270 tablet 1 Sig: Take 1 tablet by mouth three times a day for 180 days. Eun Linton RN September 20, 2024 3:21 PM documented in this encounter [facility] 09-20-2024 Telephone encounter Note The patient has been identified by name and date of : Yes Caregiver verified no other encounters exist for this prescription request: Yes Caregiver confirmed with patient/requestor that no other refills are due, in the near future, with this provider at this time: Yes The last office visit in the department: 08/12/2024 Does the patient have a future office visit with this provider/department: No Requested Prescriptions Pending Prescriptions Disp Refills DULoxetine DR (CYMBALTA) 30 mg capsule 90 capsule 1 Sig: Take 1 capsule by mouth daily at bedtime. daily DULoxetine DR (CYMBALTA) 60 mg capsule 90 capsule 1 Sig: Take 1 capsule by mouth once daily. Take in the morning. gabapentin (NEURONTIN) 800 mg tablet 270 tablet 1 Sig: Take 1 tablet by mouth three times a day for 180 days. Eun Linton RN September 20, 2024 3:21 PM [facility] 09-18-2024 Telephone encounter Note Spoke to patient & she will check with insurance and let us know. Akua Bucio MA [facility] 09-18-2024 Miscellaneous Notes Spoke to patient & she will check with insurance and let us know. Akua Bucio MA Nurse passed along message that [facility] not able to accept patient Received referral for this patient for [facility]. Unfortunately they are unable to accept at this time due to staffing threshold in that area. See if patient has another preferred HH provider with her insurance documented in this encounter [facility] 09-16-2024 Telephone encounter Note Nurse passed along message that [facility] not able to accept patient Received referral for this patient for [facility]. Unfortunately they are unable to accept at this time due to staffing threshold in that area. See if patient has another preferred HH provider with her insurance [facility] 09-13-2024 Telephone encounter Note Faxed [facility] order, demographic face sheet, and recent ov notes to [facility] per patient request. [facility] 09-13-2024 Miscellaneous Notes Faxed [facility] order, demographic face sheet, and recent ov notes to [facility] per patient request. [facility] documented in this encounter [facility] 08-21-2024 Telephone encounter Note Antibiotic sent--see other encounter [facility] 08-21-2024 Miscellaneous Notes Antibiotic sent--see other encounter Please see pt message Akua Bucio MA documented in this encounter [facility] 08-21-2024 Telephone encounter Note Pt informed Akua Bucio MA [facility] 08-21-2024 Miscellaneous Notes Pt informed Akua uBcio MA The following approved medication requests have been transmitted electronically. Requested Prescriptions Signed Prescriptions Disp Refills amoxicillin-clavulanate potassium (AUGMENTIN) 875-125 mg per tablet 14 tablet 0 Sig: Take 1 tablet by mouth two times a day for 7 days. Authorizing Provider: MELISSA MUHAMMAD MD Images from the original note were not included. Patient calling back asking if she could get antibiotic rx sent to [facility] pharmacy. She can see the results of the urine on her my chart. She is having a lot of symptoms. Please advise Contains abnormal data BACTERIAL CULTURE, URINE Order: [id number] Status: Final result Dx: Urinary frequency Test Result Released: Yes (not seen) Specimen Information: Urine, Midstream 0 Result Notes Culture Mixed microbiota, including predominantly: >=100,000 CFU/ml Proteus mirabilis Abnormal This test was developed and its performance characteristics determined by the [facility]'s [facility] [place] ([facility]). It has not been cleared or approved by the FDA. [facility] is regulated under CLIA as qualified to perform high-complexity testing. This test is used for clinical purposes. It should not be regarded as investigational or for research. Resulting Agency: [facility] Susceptibility Proteus mirabilis (1) Antibiotic Interpretation Method Status Ampicillin Susceptible MINIMUM INHIBITORY CONCENTRATION(VITEK) Final Cefazolin Susceptible MINIMUM INHIBITORY CONCENTRATION(VITEK) Final For uncomplicated urinary tract infections, cefazolin results can be used to predict susceptibility or resistance to cephalexin. Ceftriaxone Susceptible MINIMUM INHIBITORY CONCENTRATION(VITEK) Final Cefepime Susceptible MINIMUM INHIBITORY CONCENTRATION(VITEK) Final Ertapenem Susceptible MINIMUM INHIBITORY CONCENTRATION(VITEK) Final Meropenem Susceptible MINIMUM INHIBITORY CONCENTRATION(VITEK) Final Ampicillin/Sulbact Susceptible MINIMUM INHIBITORY CONCENTRATION(VITEK) Final Piperacillin/Tazobac Susceptible MINIMUM INHIBITORY CONCENTRATION(VITEK) Final Gentamicin Susceptible MINIMUM INHIBITORY CONCENTRATION(VITEK) Final Tobramycin Susceptible MINIMUM INHIBITORY CONCENTRATION(VITEK) Final Trimeth sulfameth Susceptible MINIMUM INHIBITORY CONCENTRATION(VITEK) Final Ciprofloxacin Susceptible MINIMUM INHIBITORY CONCENTRATION(VITEK) Final Nitrofurantoin Resistant MINIMUM INHIBITORY CONCENTRATION(VITEK) Final Specimen Collected: 08/19/24 10:00 AM EDT Last Resulted: 08/21/24 6:39 AM EDT Priority Sent On From To Message Type 08/19/2024 6:16 PM Lab, Background User Melissa Muhammad MD Results Patient calling and asking if provider can advise on urinalysis results. Please review and advise, Eun Linton RN documented in this encounter [facility] 08-21-2024 Telephone encounter Note The following approved medication requests have been transmitted electronically. Requested Prescriptions Signed Prescriptions Disp Refills amoxicillin-clavulanate potassium (AUGMENTIN) 875-125 mg per tablet 14 tablet 0 Sig: Take 1 tablet by mouth two times a day for 7 days. Authorizing Provider: MELISSA MUHAMMAD MD [facility] 08-21-2024 Telephone encounter Note Images from the original note were not included. Patient calling back asking if she could get antibiotic rx sent to [facility] pharmacy. She can see the results of the urine on her my chart. She is having a lot of symptoms. Please advise Contains abnormal data BACTERIAL CULTURE, URINE Order: [id number] Status: Final result Dx: Urinary frequency Test Result Released: Yes (not seen) Specimen Information: Urine, Midstream 0 Result Notes Culture Mixed microbiota, including predominantly: >=100,000 CFU/ml Proteus mirabilis Abnormal This test was developed and its performance characteristics determined by the [facility] [place] ([facility] It has not been cleared or approved by the FDA. [facility] is regulated under CLIA as qualified to perform high-complexity testing. This test is used for clinical purposes. It should not be regarded as investigational or for research. Resulting Agency: [facility] Susceptibility Proteus mirabilis (1) Antibiotic Interpretation Method Status Ampicillin Susceptible MINIMUM INHIBITORY CONCENTRATION(VITEK) Final Cefazolin Susceptible MINIMUM INHIBITORY CONCENTRATION(VITEK) Final For uncomplicated urinary tract infections, cefazolin results can be used to predict susceptibility or resistance to cephalexin. Ceftriaxone Susceptible MINIMUM INHIBITORY CONCENTRATION(VITEK) Final Cefepime Susceptible MINIMUM INHIBITORY CONCENTRATION(VITEK) Final Ertapenem Susceptible MINIMUM INHIBITORY CONCENTRATION(VITEK) Final Meropenem Susceptible MINIMUM INHIBITORY CONCENTRATION(VITEK) Final Ampicillin/Sulbact Susceptible MINIMUM INHIBITORY CONCENTRATION(VITEK) Final Piperacillin/Tazobac Susceptible MINIMUM INHIBITORY CONCENTRATION(VITEK) Final Gentamicin Susceptible MINIMUM INHIBITORY CONCENTRATION(VITEK) Final Tobramycin Susceptible MINIMUM INHIBITORY CONCENTRATION(VITEK) Final Trimeth sulfameth Susceptible MINIMUM INHIBITORY CONCENTRATION(VITEK) Final Ciprofloxacin Susceptible MINIMUM INHIBITORY CONCENTRATION(VITEK) Final Nitrofurantoin Resistant MINIMUM INHIBITORY CONCENTRATION(VITEK) Final Specimen Collected: 08/19/24 10:00 AM EDT Last Resulted: 08/21/24 6:39 AM EDT Priority Sent On From To Message Type 08/19/2024 6:16 PM Lab, Background User Melissa Muhammad MD Results [facility] 08-21-2024 Telephone encounter Note Please see pt message Auka Bucio MA [facility] 08-20-2024 Telephone encounter Note Patient calling and asking if provider can advise on urinalysis results. Please review and advise, Eun Linton RN [facility] 08-14-2024 Note HNO ID: [id number] Author: MAGDA RODRIGUEZ MA Service: ? Author Type: Guest Attendant Type: Progress Notes Filed: 08/14/2024 12:48 Note Text: POPULATION HEALTH NAVIGATION OUTREACH Action/FYI Spoke to patient and attempted to schedule Medicare Wellness and colonoscopy. Patient declined and stated she will schedule it herself. Reason for Outreach Care Gap/HCC or Scheduling Wellness Visits Care Gaps due: Medicare Annual Wellness Visit Colorectal Cancer Screening Patient Contacted: Spoke to patient/parent/or legal guardian Patient identified by name and : Yes Care Gap/HCC/Scheduling Wellness actions taken: Patient declined: Patient will contact office directly to schedule HCC related Navigation Signature: Magda Rodriguez MA August 14, 2024 12:47 PM [facility] 08-14-2024 History of Presen t illness Narrative POPULATION HEALTH NAVIGATION OUTREACH Action/FYI Spoke to patient and attempted to schedule Medicare Wellness and colonoscopy. Patient declined and stated she will schedule it herself. Reason for Outreach Care Gap/HCC or Scheduling Wellness Visits Care Gaps due: Medicare Annual Wellness Visit Colorectal Cancer Screening Patient Contacted: Spoke to patient/parent/or legal guardian Patient identified by name and : Yes Care Gap/HCC/Scheduling Wellness actions taken: Patient declined: Patient will contact office directly to schedule HCC related Navigation Signature: Magda Rodriguez MA August 14, 2024 12:47 PM documented in this encounter [facility] 08-14-2024 Note Patient Outreach (NE TNAV) SONIA KARIMI ([id number]) 1955 F Date Time Provider Department 08/14/24 MAGDA RODRIGUEZ NETNAV During your visit today, we recorded the following information about you: Magda Rodriguez MA 08/14/2024 12:48 PM Signed POPULATION HEALTH NAVIGATION OUTREACH Action/FYI Spoke to patient and attempted to schedule Medicare Wellness and colonoscopy. Patient declined and stated she will schedule it herself. Reason for Outreach Care Gap/HCC or Scheduling Wellness Visits Care Gaps due: Medicare Annual Wellness Visit Colorectal Cancer Screening Patient Contacted: Spoke to patient/parent/or legal guardian Patient identified by name and : Yes Care Gap/HCC/Scheduling Wellness actions taken: Patient declined: Patient will contact office directly to schedule HCC related Navigation Signature: Magda Rodriguez MA August 14, 2024 12:47 PM Allergies As of Date: 08/14/2024 Noted Allergy Reaction ATIVAN (LORAZEPAM) 03/26/2012 4 - Hives NEOMYCIN 02/02/2018 9 - Itching Comments: Hives, itching VALIUM (DIAZEPAM) 11/28/2020 5 - Intolerance Comments: somnolence Date Reviewed: 08/12/2024 Reviewed by: Liza Rucker LPN - Fully Assessed Reason for Visit: Population Health Navigation Outreach [3910] Cmt: [place]/Workbench/ACO Prescriptions as of 08/14/2024 - amLODIPine (NORVASC) 10 mg tablet Take 1 tablet by mouth once daily. - benzonatate (TESSALON PERLE) 100 mg capsule Take 2 capsules by mouth three times a day as needed. - fluticasone (FLONASE ALLERGY RELIEF) 50 mcg/actuation nasal spray Use 1 spray in each nostril once daily. - polyethylene glycol 3350 (MIRALAX) 17 gram/dose powder Take 17 g by mouth once daily. as needed for constipation. Dissolve dose in 4 - 8 ounces of liquid and take as directed. Take in the morning. - tiZANidine (ZANAFLEX) 4 mg tablet Take 1 tablet by mouth every 8 hours. - atorvastatin (LIPITOR) 10 mg tablet Take 1 tablet by mouth once daily. - DULoxetine (CYMBALTA) 30 mg capsule Take 1 capsule by mouth daily at bedtime. daily - DULoxetine (CYMBALTA) 60 mg capsule Take 1 capsule by mouth once daily. Take in the morning. - gabapentin (NEURONTIN) 800 mg tablet Take 1 tablet by mouth three times a day for 180 days. - hydrOXYzine pamoate (VISTARIL) 25 mg capsule Take 1 capsule by mouth daily at bedtime. daily - losartan (COZAAR) 50 mg tablet Take 1 tablet by mouth two times a day. - pantoprazole DR (PROTONIX) 40 mg tablet Take 1 tablet by mouth two times a day. - cholecalciferol (VITAMIN D3) 50 mcg (2,000 unit) tablet Take 1 tablet by mouth once daily. - melatonin 5 mg tablet Take 1 tablet by mouth daily at bedtime. - diclofenac XR (VOLTAREN-XR) 100 mg Tb24 TAKE 1 TABLET BY MOUTH DAILY WITH FOOD NEEDED FOR PAIN - gabapentin (NEURONTIN) 300 mg capsule Take 1 capsule by mouth two times a day for 180 days. - [employer] Power Wheelchair - diclofenac (VOLTAREN) 1 % topical gel Apply 4 g to affected area four times daily. FOR EXTERNAL USE ONLY APPLY TO: right knee Use provided dosing card to measure the ordered dose. - cloNIDine HCl (CATAPRES) 0.1 mg tablet Take 1 tablet by mouth twice daily. - acetaminophen (TYLENOL) 500 mg tablet Take 500 mg by mouth twice daily as needed for pain. - COMPOUNDED PRESCRIPTION BIPAP 1 liter bleed in 12/5 cm. RR 14 Replacement machine with heated humidity. CPAP mask and supplies. Use nightly. Problem List As Of Date 08/14/2024 Noted Resolved Essential hypertension [I10] 12/15/2014 Cervical polyp [N84.1] 12/15/2014 11/18/2019 Hyperlipidemia [E78.5] 12/15/2014 Osteoarthritis of both knees [M17.0] 12/15/2014 IRIS treated with BiPAP [G47.33] 12/15/2014 Class 3 severe obesity due to excess calories w*06/02/2017 Cervical myopathy [G72.9] 01/30/2018 Cervical spondylosis with myelopathy [M47.12] 01/30/2018 History of cervical polypectomy [Z98.890, Z87.4*11/18/2019 Paraparesis (HCC) [G82.20] Thyroid nodule [E04.1] 11/19/2020 Ventricular tachycardia, non-sustained (HCC) [I*11/19/2020 Spondylosis with myelopathy, 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*11/21/2020 Paronychia of right middle finger [L03.011] 11/23/2020 Fusion of spine of 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43.24] 11/25/2020 Acute postoperative pain [G89.18] 11/25/2020 Pseudogout of right knee [M11.261] 11/26/2020 Abnormal urinalysis [R82.90] 12/01/2020 Rash and nonspecific skin eruption on right thi*12/03/2020 Major depressive disorder, recurrent, mild (HCC*09/02/2022 Chronic obstructive pulmonary disease (HCC) [J4*11/09/2022 Encounter Status:Closed by MAGDA RODRIGUEZ on 08/14/24 [facility] 08-12-2024 Instructions Melissa Muhammad MD - 08/12/2024 12:41 PM EDT - Amlodipine refill sent to [facility], supply good through October. - Referral placed with [facility] for home-based physical therapy and occupational therapy; they will contact you to schedule an evaluation focusing on transfers, arm and shoulder mobility, and daily living activities. - Laboratory orders (fasting): lipid panel, comprehensive metabolic panel, complete blood count with iron studies, magnesium level, and vitamin D level; have blood drawn today after your fast. - Urine analysis ordered; arrange for a home health aide to collect and deliver a sample to the lab to check for infection or bladder function. - Referral sent to [facility] for podiatry evaluation and treatment of your right big toenail ingrown; the office will call to set up your appointment. - Eye care instructions: rinse eyes with saline solution to flush away allergens and crusts, apply warm compresses to the eyelids, and if irritation persists, use [id number] allergy eye drops. - Continue to eat a balanced diet, get adequate sleep, stay as active as you can tolerate, and drink plenty of fluids. documented in this encounter [facility] 08-12-2024 Note HNO ID: [id number] Author: MELISSA MUHAMMAD MD Service: ? Author Type: Physician Type: Progress Notes Filed: 09/10/2024 00:16 Note Text: This note was created using [email or web address]. Subjective Sonia Karimi is a 68 year old female. SUBJECTIVE: Sonia Karimi is a 68-year-old female with a history of spinal stenosis and moderate to severe shoulder arthritis, presenting for follow-up after recent discharge from home health services. She is accompanied by Krystal, who is providing additional history. Sonia was recently discharged from [facility] 2 weeks ago, despite expressing dissatisfaction with the care provided. She reports that the discharge was predetermined and not based on her progress. She feels that she still requires assistance with activities of daily living, such as transferring onto her shower chair and performing personal grooming tasks. She also notes that occupational therapy was discontinued before physical therapy, and she did not receive adequate support for her upper extremities. Sonia has a history of spinal stenosis and moderate to severe shoulder arthritis, with limited range of motion in her shoulders and wrists. She experiences constant shoulder pain and has difficulty using utensils and performing household tasks. Previous x-rays indicated moderate to severe arthritis, and an orthopedic surgeon mentioned the possibility of future shoulder replacement. She also reports increased urinary frequency, sometimes needing to urinate again within 10 seconds of voiding. She denies current symptoms of a UTI, but requests a urine sample to be taken for evaluation. She also requests fasting blood work, as her previous tests were not done while fasting. She mentions a history of low vitamin D levels and recent bleeding in the hospital, which was treated with cauterization and medication. Additionally, she reports an ingrown toenail on her right hallux and requests a referral to a fuel efficient aircraft designer. She also experiences crusty discharge from her eyes, which she suspects may be due to allergies. PAST MEDICAL HISTORY Diagnosis Date Cervical polyp Cervical spine disease COPD (chronic obstructive pulmonary disease) (HCC) Hyperlipidemia Hypertension Mild aortic regurgitation repeat echocardiogram [id number] if no other changes Minor depression IRIS (obstructive sleep apnea) Thyroid nodule greater than or equal to 1.5 cm in diameter incidentally noted on imaging study 11/17/2020 b/l nodules. Dominant nodule within the lower pole of the right lobe, measuring up to 6.2 cm, increased in size in the interval. Current Outpatient Medications Medication Sig fluticasone (FLONASE ALLERGY RELIEF) 50 mcg/actuation nasal spray Use 1 spray in each nostril once daily. polyethylene glycol 3350 (MIRALAX) 17 gram/dose powder Take 17 g by mouth once daily. as needed for constipation. Dissolve dose in 4 - 8 ounces of liquid and take as directed. Take in the morning. tiZANidine (ZANAFLEX) 4 mg tablet Take 1 tablet by mouth every 8 hours. atorvastatin (LIPITOR) 10 mg tablet Take 1 tablet by mouth once daily. DULoxetine (CYMBALTA) 30 mg capsule Take 1 capsule by mouth daily at bedtime. daily DULoxetine (CYMBALTA) 60 mg capsule Take 1 capsule by mouth once daily. Take in the morning. gabapentin (NEURONTIN) 800 mg tablet Take 1 tablet by mouth three times a day for 180 days. hydrOXYzine pamoate (VISTARIL) 25 mg capsule Take 1 capsule by mouth daily at bedtime. daily losartan (COZAAR) 50 mg tablet Take 1 tablet by mouth two times a day. pantoprazole DR (PROTONIX) 40 mg tablet Take 1 tablet by mouth two times a day. cholecalciferol (VITAMIN D3) 50 mcg (2,000 unit) tablet Take 1 tablet by mouth once daily. melatonin 5 mg tablet Take 1 tablet by mouth daily at bedtime. [employer] Wheelchair diclofenac (VOLTAREN) 1 % topical gel Apply 4 g to affected area four times daily. FOR EXTERNAL USE ONLY APPLY TO: right knee Use provided dosing card to measure the ordered dose. acetaminophen (TYLENOL) 500 mg tablet Take 500 mg by mouth twice daily as needed for pain. COMPOUNDED PRESCRIPTION BIPAP 1 liter bleed in 12/5 cm. RR 14 Replacement machine with heated humidity. CPAP mask and supplies. Use nightly. amLODIPine (NORVASC) 10 mg tablet Take 1 tablet by mouth once daily. benzonatate (TESSALON PERLE) 100 mg capsule Take 2 capsules by mouth three times a day as needed. (Patient not taking: Reported on 08/12/2024) diclofenac XR (VOLTAREN-XR) 100 mg Tb24 TAKE 1 TABLET BY MOUTH DAILY WITH FOOD NEEDED FOR PAIN (Patient not taking: Reported on 04/18/2024) gabapentin (NEURONTIN) 300 mg capsule Take 1 capsule by mouth two times a day for 180 days. (Patient not taking: Reported on 04/18/2024) cloNIDine HCl (CATAPRES) 0.1 mg tablet Take 1 tablet by mouth twice daily. (Patient not taking: Reported on 04/18/2024) No current facility-administered me (more content not included)... [facility] 08-12-2024 History of Presen t illness Narrative This note was created using [employer]. Subjective Sonia Karimi is a 68 year old female. SUBJECTIVE: Sonia Karimi is a 68-year-old female with a history of spinal stenosis and moderate to severe shoulder arthritis, presenting for follow-up after recent discharge from home health services. She is accompanied by Krystal, who is providing additional history. Sonia was recently discharged from [facility] 2 weeks ago, despite expressing dissatisfaction with the care provided. She reports that the discharge was predetermined and not based on her progress. She feels that she still requires assistance with activities of daily living, such as transferring onto her shower chair and performing personal grooming tasks. She also notes that occupational therapy was discontinued before physical therapy, and she did not receive adequate support for her upper extremities. Sonia has a history of spinal stenosis and moderate to severe shoulder arthritis, with limited range of motion in her shoulders and wrists. She experiences constant shoulder pain and has difficulty using utensils and performing household tasks. Previous x-rays indicated moderate to severe arthritis, and an orthopedic surgeon mentioned the possibility of future shoulder replacement. She also reports increased urinary frequency, sometimes needing to urinate again within 10 seconds of voiding. She denies current symptoms of a UTI, but requests a urine sample to be taken for evaluation. She also requests fasting blood work, as her previous tests were not done while fasting. She mentions a history of low vitamin D levels and recent bleeding in the hospital, which was treated with cauterization and medication. Additionally, she reports an ingrown toenail on her right hallux and requests a referral to a fuel efficient aircraft designer. She also experiences crusty discharge from her eyes, which she suspects may be due to allergies. PAST MEDICAL HISTORY Diagnosis Date Cervical polyp Cervical spine disease COPD (chronic obstructive pulmonary disease) (HCC) Hyperlipidemia Hypertension Mild aortic regurgitation repeat echocardiogram [id number] if no other changes Minor depression IRIS (obstructive sleep apnea) Thyroid nodule greater than or equal to 1.5 cm in diameter incidentally noted on imaging study 11/17/2020 b/l nodules. Dominant nodule within the lower pole of the right lobe, measuring up to 6.2 cm, increased in size in the interval. Current Outpatient Medications Medication Sig fluticasone (FLONASE ALLERGY RELIEF) 50 mcg/actuation nasal spray Use 1 spray in each nostril once daily. polyethylene glycol 3350 (MIRALAX) 17 gram/dose powder Take 17 g by mouth once daily. as needed for constipation. Dissolve dose in 4 - 8 ounces of liquid and take as directed. Take in the morning. tiZANidine (ZANAFLEX) 4 mg tablet Take 1 tablet by mouth every 8 hours. atorvastatin (LIPITOR) 10 mg tablet Take 1 tablet by mouth once daily. DULoxetine (CYMBALTA) 30 mg capsule Take 1 capsule by mouth daily at bedtime. daily DULoxetine (CYMBALTA) 60 mg capsule Take 1 capsule by mouth once daily. Take in the morning. gabapentin (NEURONTIN) 800 mg tablet Take 1 tablet by mouth three times a day for 180 days. hydrOXYzine pamoate (VISTARIL) 25 mg capsule Take 1 capsule by mouth daily at bedtime. daily losartan (COZAAR) 50 mg tablet Take 1 tablet by mouth two times a day. pantoprazole DR (PROTONIX) 40 mg tablet Take 1 tablet by mouth two times a day. cholecalciferol (VITAMIN D3) 50 mcg (2,000 unit) tablet Take 1 tablet by mouth once daily. melatonin 5 mg tablet Take 1 tablet by mouth daily at bedtime. [employer] Wheelchair diclofenac (VOLTAREN) 1 % topical gel Apply 4 g to affected area four times daily. FOR EXTERNAL USE ONLY APPLY TO: right knee Use provided dosing card to measure the ordered dose. acetaminophen (TYLENOL) 500 mg tablet Take 500 mg by mouth twice daily as needed for pain. COMPOUNDED PRESCRIPTION BIPAP 1 liter bleed in 12/5 cm. RR 14 Replacement machine with heated humidity. CPAP mask and supplies. Use nightly. amLODIPine (NORVASC) 10 mg tablet Take 1 tablet by mouth once daily. benzonatate (TESSALON PERLE) 100 mg capsule Take 2 capsules by mouth three times a day as needed. (Patient not taking: Reported on 08/12/2024) diclofenac XR (VOLTAREN-XR) 100 mg Tb24 TAKE 1 TABLET BY MOUTH DAILY WITH FOOD NEEDED FOR PAIN (Patient not taking: Reported on 04/18/2024) gabapentin (NEURONTIN) 300 mg capsule Take 1 capsule by mouth two times a day for 180 days. (Patient not taking: Reported on 04/18/2024) cloNIDine HCl (CATAPRES) 0.1 mg tablet Take 1 tablet by mouth twice daily. (Patient not taking: Reported on 04/18/2024) No current facility-administered medications for this visit. Review of Systems Objective BP 126/76 Pulse 72 Resp 16 SpO2 99% Physical Exam Constitutional: Appearance: Normal appearance. HENT: Head: Normocephalic. Eyes: Conjunctiva/sclera: Conjunctivae normal. Cardiovascular: Rate and Rhythm: Normal rate and regular rhythm. Heart sounds: Normal heart sounds. Pulmonary: Effort: Pulmonary effort is normal. Breath sounds: Normal breath sounds. Musculoskeletal: Right lower leg: No edema. Left lower leg: No edema. Skin: General: Skin is warm and dry. Neurological: General: No focal deficit present. Mental Status: She is alert and oriented to person, place, and time. Psychiatric: Mood and Affect: Mood normal. Behavior: Behavior normal. Thought Content: Thought content normal. Judgment: Judgment normal. Assessment and Plan # Essential hypertension (I10) - Managed with amlodipine; refilled prescription. 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 - Orthopedic surgeon indicated potential need for shoulder replacement in the future. - Referral to [facility] for occupational therapy to address upper extremity limitations. -[facility] for PT as well for issues with spinal stenosis. # Urinary frequency (R35.0) - Ordered urinalysis to rule out infection. - Discussed potential causes including incomplete bladder emptying and stress incontinence. - Advised patient to provide a urine sample for analysis. # Microcytosis (R71.8) - Previous CBC showed low MCH and MCHC. - Ordered iron studies to evaluate for iron deficiency. # Hypercalcemia (E83.52) - Previous calcium levels slightly elevated. - Ordered vitamin D level to assess current status. # Vitamin D deficiency (E55.9) - Long-standing history of vitamin D deficiency. - Ordered vitamin D level to ensure adequate supplementation. # Ingrown right greater toenail (L60.0) - Referral to [facility] for evaluation and management. # Class 3 severe obesity due to excess calories without serious comorbidity with body mass index (BMI) of 45.0 to 49.9 in adult (HCC) (E66.813) - Discussed importance of balanced diet, regular physical activity, and adequate hydration. # Encounter for long-term current use of medication (Z79.899) - Patient on long-term acid gerardo therapy due to history of gastric ulcers. - Ordered magnesium level to monitor for potential deficiencies. Melissa Muhammad MD Recording using [employer] software for draft documentation of the visit was discussed with the patient/authorized manufacturers service representative; all questions welcomed and answered. Patient/authorized manufacturers service representative agreed to proceed documented in this encounter [facility] 07-24-2024 Note HNO ID: [id number] Author: HELENA MONTOYA APRN.RESIDENTIAL ROOFER HELPER Service: ? Author Type: Nurse Practitioner Type: Progress Notes Filed: 07/24/2024 10:39 Note Text: [facility] Subjective Sonia Karimi is a 68 year old female. Patient presents with: Cough: Cough, sinus, congestion and BUCK x 6 days Constitutional: (-) fever Eyes: (+) ocular irritation Ears/Nose/Mouth/Throat: (+) sinus pain/pressure, (+) purulent nasal discharge Respiratory: (+) cough Musculoskeletal: (-) myalgias Objective BP 128/78 Pulse 74 Temp 36.3 ?C (97.4 ?F) (Tympanic) Resp 18 SpO2 93% PAST MEDICAL HISTORY Diagnosis Date Cervical polyp Cervical spine disease COPD (chronic obstructive pulmonary disease) (HCC) Hyperlipidemia Hypertension Mild aortic regurgitation repeat echocardiogram [id number] if no other changes Minor depression IRIS (obstructive sleep apnea) Thyroid nodule greater than or equal to 1.5 cm in diameter incidentally noted on imaging study 11/17/2020 b/l nodules. Dominant nodule within the lower pole of the right lobe, measuring up to 6.2 cm, increased in size in the interval. PAST SURGICAL HISTORY Procedure Laterality Date ADENOIDECTOMY PRIMARY Adenoidectomy PAST SURGICAL HISTORY OF 02/02/2018 neck surgery TONSILLECTOMY PRIMARY/SECONDARY Tonsillectomy ALLERGIES Ativan [Lorazepam], Neomycin, and Valium [Diazepam] MEDICATIONS polyethylene glycol 3350 (MIRALAX) 17 gram/dose powder Take 17 g by mouth once daily. as needed for constipation. Dissolve dose in 4 - 8 ounces of liquid and take as directed. Take in the morning. tiZANidine (ZANAFLEX) 4 mg tablet Take 1 tablet by mouth every 8 hours. atorvastatin (LIPITOR) 10 mg tablet Take 1 tablet by mouth once daily. DULoxetine (CYMBALTA) 30 mg capsule Take 1 capsule by mouth daily at bedtime. daily DULoxetine (CYMBALTA) 60 mg capsule Take 1 capsule by mouth once daily. Take in the morning. gabapentin (NEURONTIN) 800 mg tablet Take 1 tablet by mouth three times a day for 180 days. hydrOXYzine pamoate (VISTARIL) 25 mg capsule Take 1 capsule by mouth daily at bedtime. daily losartan (COZAAR) 50 mg tablet Take 1 tablet by mouth two times a day. pantoprazole DR (PROTONIX) 40 mg tablet Take 1 tablet by mouth two times a day. cholecalciferol (VITAMIN D3) 50 mcg (2,000 unit) tablet Take 1 tablet by mouth once daily. melatonin 5 mg tablet Take 1 tablet by mouth daily at bedtime. [employer] Wheelchair amLODIPine (NORVASC) 10 mg tablet Take 1 tablet by mouth once daily. diclofenac (VOLTAREN) 1 % topical gel Apply 4 g to affected area four times daily. FOR EXTERNAL USE ONLY APPLY TO: right knee Use provided dosing card to measure the ordered dose. acetaminophen (TYLENOL) 500 mg tablet Take 500 mg by mouth twice daily as needed for pain. COMPOUNDED PRESCRIPTION BIPAP 1 liter bleed in 12/5 cm. RR 14 Replacement machine with heated humidity. CPAP mask and supplies. Use nightly. doxycycline (VIBRA-TABS) 100 mg tablet Take 1 tablet by mouth two times a day for 7 days. benzonatate (TESSALON PERLE) 100 mg capsule Take 2 capsules by mouth three times a day as needed. fluticasone (FLONASE ALLERGY RELIEF) 50 mcg/actuation nasal spray Use 1 spray in each nostril once daily. diclofenac XR (VOLTAREN-XR) 100 mg Tb24 TAKE 1 TABLET BY MOUTH DAILY WITH FOOD NEEDED FOR PAIN (Patient not taking: Reported on 04/18/2024) gabapentin (NEURONTIN) 300 mg capsule Take 1 capsule by mouth two times a day for 180 days. (Patient not taking: Reported on 04/18/2024) cloNIDine HCl (CATAPRES) 0.1 mg tablet Take 1 tablet by mouth twice daily. (Patient not taking: Reported on 04/18/2024) FAMILY HISTORY Problem Relation Age of Onset Cancer Mother skin cancer Heart Mother atrial fibrillation Cancer Father leukemia Diabetes Father Cancer Sister cancer in situ - breast Diabetes Sister Cancer Paternal Grandmother colon to liver Cancer Paternal Grandfather stomach cancer Social History Tobacco Use Smoking status: Former Types: Cigarettes Smokeless tobacco: Never Tobacco comments: quit prior to 1979 Substance Use Topics Alcohol use: No Drug use: No Physical Exam Vitals and nursing note reviewed. Constitutional: Appearance: Normal appearance. HENT: Head: Normocephalic and atraumatic. Right Ear: Tympanic membrane normal. Left Ear: Tympanic membrane normal. Nose: Congestion and rhinorrhea present. Right Sinus: Maxillary sinus tenderness and frontal sinus tenderness present. Left Sinus: Maxillary sinus tenderness and frontal sinus tenderness present. Mouth/Throat: Pharynx: Oropharynx is clear. Posterior oropharyngeal erythema present. No oropharyngeal exudate. Cardiovascular: Rate and Rhythm: Normal rate and regular rhythm. Pulses: Normal pulses. Heart sounds: Normal heart sounds. Pulmonary: Effort: Pulmonary effort is normal. Breath sounds: Normal breath sound (more content not included)... [facility] 07-24-2024 History of Presen t illness Narrative [facility] Subjective Sonia Karimi is a 68 year old female. Patient presents with: Cough: Cough, sinus, congestion and BUCK x 6 days Constitutional: (-) fever Eyes: (+) ocular irritation Ears/Nose/Mouth/Throat: (+) sinus pain/pressure, (+) purulent nasal discharge Respiratory: (+) cough Musculoskeletal: (-) myalgias Objective BP 128/78 Pulse 74 Temp 36.3 C (97.4 F) (Tympanic) Resp 18 SpO2 93% PAST MEDICAL HISTORY Diagnosis Date Cervical polyp Cervical spine disease COPD (chronic obstructive pulmonary disease) (HCC) Hyperlipidemia Hypertension Mild aortic regurgitation repeat echocardiogram [id number] if no other changes Minor depression IRIS (obstructive sleep apnea) Thyroid nodule greater than or equal to 1.5 cm in diameter incidentally noted on imaging study 11/17/2020 b/l nodules. Dominant nodule within the lower pole of the right lobe, measuring up to 6.2 cm, increased in size in the interval. PAST SURGICAL HISTORY Procedure Laterality Date ADENOIDECTOMY PRIMARY <AGE 10 Adenoidectomy PAST SURGICAL HISTORY OF 02/02/2018 neck surgery TONSILLECTOMY PRIMARY/SECONDARY <AGE 10 Tonsillectomy ALLERGIES Ativan [Lorazepam], Neomycin, and Valium [Diazepam] MEDICATIONS polyethylene glycol 3350 (MIRALAX) 17 gram/dose powder Take 17 g by mouth once daily. as needed for constipation. Dissolve dose in 4 - 8 ounces of liquid and take as directed. Take in the morning. tiZANidine (ZANAFLEX) 4 mg tablet Take 1 tablet by mouth every 8 hours. atorvastatin (LIPITOR) 10 mg tablet Take 1 tablet by mouth once daily. DULoxetine (CYMBALTA) 30 mg capsule Take 1 capsule by mouth daily at bedtime. daily DULoxetine (CYMBALTA) 60 mg capsule Take 1 capsule by mouth once daily. Take in the morning. gabapentin (NEURONTIN) 800 mg tablet Take 1 tablet by mouth three times a day for 180 days. hydrOXYzine pamoate (VISTARIL) 25 mg capsule Take 1 capsule by mouth daily at bedtime. daily losartan (COZAAR) 50 mg tablet Take 1 tablet by mouth two times a day. pantoprazole DR (PROTONIX) 40 mg tablet Take 1 tablet by mouth two times a day. cholecalciferol (VITAMIN D3) 50 mcg (2,000 unit) tablet Take 1 tablet by mouth once daily. melatonin 5 mg tablet Take 1 tablet by mouth daily at bedtime. [facility] Wheelchair amLODIPine (NORVASC) 10 mg tablet Take 1 tablet by mouth once daily. diclofenac (VOLTAREN) 1 % topical gel Apply 4 g to affected area four times daily. FOR EXTERNAL USE ONLY APPLY TO: right knee Use provided dosing card to measure the ordered dose. acetaminophen (TYLENOL) 500 mg tablet Take 500 mg by mouth twice daily as needed for pain. COMPOUNDED PRESCRIPTION BIPAP 1 liter bleed in 12/5 cm. RR 14 Replacement machine with heated humidity. CPAP mask and supplies. Use nightly. doxycycline (VIBRA-TABS) 100 mg tablet Take 1 tablet by mouth two times a day for 7 days. benzonatate (TESSALON PERLE) 100 mg capsule Take 2 capsules by mouth three times a day as needed. fluticasone (FLONASE ALLERGY RELIEF) 50 mcg/actuation nasal spray Use 1 spray in each nostril once daily. diclofenac XR (VOLTAREN-XR) 100 mg Tb24 TAKE 1 TABLET BY MOUTH DAILY WITH FOOD NEEDED FOR PAIN (Patient not taking: Reported on 04/18/2024) gabapentin (NEURONTIN) 300 mg capsule Take 1 capsule by mouth two times a day for 180 days. (Patient not taking: Reported on 04/18/2024) cloNIDine HCl (CATAPRES) 0.1 mg tablet Take 1 tablet by mouth twice daily. (Patient not taking: Reported on 04/18/2024) FAMILY HISTORY Problem Relation Age of Onset Cancer Mother skin cancer Heart Mother atrial fibrillation Cancer Father leukemia Diabetes Father Cancer Sister cancer in situ - breast Diabetes Sister Cancer Paternal Grandmother colon to liver Cancer Paternal Grandfather stomach cancer Social History Tobacco Use Smoking status: Former Types: Cigarettes Smokeless tobacco: Never Tobacco comments: quit prior to 1979 Substance Use Topics Alcohol use: No Drug use: No Physical Exam Vitals and nursing note reviewed. Constitutional: Appearance: Normal appearance. HENT: Head: Normocephalic and atraumatic. Right Ear: Tympanic membrane normal. Left Ear: Tympanic membrane normal. Nose: Congestion and rhinorrhea present. Right Sinus: Maxillary sinus tenderness and frontal sinus tenderness present. Left Sinus: Maxillary sinus tenderness and frontal sinus tenderness present. Mouth/Throat: Pharynx: Oropharynx is clear. Posterior oropharyngeal erythema present. No oropharyngeal exudate. Cardiovascular: Rate and Rhythm: Normal rate and regular rhythm. Pulses: Normal pulses. Heart sounds: Normal heart sounds. Pulmonary: Effort: Pulmonary effort is normal. Breath sounds: Normal breath sounds. Neurological: Mental Status: She is alert. {1. Acute non-recurrent maxillary sinusitis (J01.00) - Symptoms include cough, sinus pressure, and purulent nasal discharge. No fever or myalgias reported. - Prescribed Doxycycline with instructions to take with food; advised on potential photosensitivity. - Prescribed Tessalon Perles for cough management. - Prescribed Flonase nasal spray for congestion relief. - All prescriptions sent to [facility]. and Recording using [employer] software for draft documentation of the visit was discussed with the patient/authorized manufacturers service representative; all questions welcomed and answered. Patient/authorized manufacturers service representative agreed to proceed History and Record Review Clinical information obtained from an independent historian. History obtained from or confirmed by: other (see comments). External record(s) reviewed: prior outpatient record. Findings from review of outpatient records: Previous medical history Differential Diagnoses - Sinusitis is more likely for the following reason(s): suggested by H&P - Allergic rhinitis is more likely for the following reason(s): suggested by H&P - Otitis media is less likely for the following reason(s): H&P not suggestive - CLERK OPERATOR is less likely for the following reason(s): H&P not suggestive - Pneumonia is less likely for the following reason(s): H&P not suggestive Disposition The patient was discharged. OTC Medications were advised: Flonase Antihistamine Decongestants documented in this encounter [facility] 07-09-2024 Note Patient Outreach (IN TMWS) SONIA KARIMI ([id number]) 1955 F Date Time Provider Department 07/09/24 MELISSA MUHAMMAD INTABBE During your visit today, we recorded the following information about you: Allergies As of Date: 07/09/2024 Noted Allergy Reaction ATIVAN (LORAZEPAM) 03/26/2012 4 - Hives NEOMYCIN 02/02/2018 9 - Itching Comments: Hives, itching VALIUM (DIAZEPAM) 11/28/2020 5 - Intolerance Comments: somnolence Date Reviewed: 06/25/2024 Reviewed by: Liza Rucker LPN - Fully Assessed Visit Diagnosis:Encounter for screening mammogram for breast cancer [Z12.31] Order(s):[facility] [[id number]] Order #: [id number] FUTURE Prescriptions as of 08/09/2024 - benzonatate (TESSALON PERLE) 100 mg capsule Take 2 capsules by mouth three times a day as needed. - fluticasone (FLONASE ALLERGY RELIEF) 50 mcg/actuation nasal spray Use 1 spray in each nostril once daily. - polyethylene glycol 3350 (MIRALAX) 17 gram/dose powder Take 17 g by mouth once daily. as needed for constipation. Dissolve dose in 4 - 8 ounces of liquid and take as directed. Take in the morning. - tiZANidine (ZANAFLEX) 4 mg tablet Take 1 tablet by mouth every 8 hours. - atorvastatin (LIPITOR) 10 mg tablet Take 1 tablet by mouth once daily. - DULoxetine (CYMBALTA) 30 mg capsule Take 1 capsule by mouth daily at bedtime. daily - DULoxetine (CYMBALTA) 60 mg capsule Take 1 capsule by mouth once daily. Take in the morning. - gabapentin (NEURONTIN) 800 mg tablet Take 1 tablet by mouth three times a day for 180 days. - hydrOXYzine pamoate (VISTARIL) 25 mg capsule Take 1 capsule by mouth daily at bedtime. daily - losartan (COZAAR) 50 mg tablet Take 1 tablet by mouth two times a day. - pantoprazole DR (PROTONIX) 40 mg tablet Take 1 tablet by mouth two times a day. - cholecalciferol (VITAMIN D3) 50 mcg (2,000 unit) tablet Take 1 tablet by mouth once daily. - melatonin 5 mg tablet Take 1 tablet by mouth daily at bedtime. - diclofenac XR (VOLTAREN-XR) 100 mg Tb24 TAKE 1 TABLET BY MOUTH DAILY WITH FOOD NEEDED FOR PAIN - gabapentin (NEURONTIN) 300 mg capsule Take 1 capsule by mouth two times a day for 180 days. - M[employer]ellaneous [employer] Power Wheelchair - amLODIPine (NORVASC) 10 mg tablet Take 1 tablet by mouth once daily. - diclofenac (VOLTAREN) 1 % topical gel Apply 4 g to affected area four times daily. FOR EXTERNAL USE ONLY APPLY TO: right knee Use provided dosing card to measure the ordered dose. - cloNIDine HCl (CATAPRES) 0.1 mg tablet Take 1 tablet by mouth twice daily. - acetaminophen (TYLENOL) 500 mg tablet Take 500 mg by mouth twice daily as needed for pain. - COMPOUNDED PRESCRIPTION BIPAP 1 liter bleed in 12/5 cm. RR 14 Replacement machine with heated humidity. CPAP mask and supplies. Use nightly. Problem List As Of Date 07/09/2024 Noted Resolved Essential hypertension [I10] 12/15/2014 Cervical polyp [N84.1] 12/15/2014 11/18/2019 Hyperlipidemia [E78.5] 12/15/2014 Osteoarthritis of both knees [M17.0] 12/15/2014 IRIS treated with BiPAP [G47.33] 12/15/2014 Class 3 severe obesity due to excess calories w*06/02/2017 Cervical myopathy [G72.9] 01/30/2018 Cervical spondylosis with myelopathy [M47.12] 01/30/2018 History of cervical polypectomy [Z98.890, Z87.4*11/18/2019 Paraparesis (HCC) [G82.20] Thyroid nodule [E04.1] 11/19/2020 Ventricular tachycardia, non-sustained (HCC) [I*11/19/2020 Spondylosis with myelopathy, 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*11/21/2020 Paronychia of right middle finger [L03.011] 11/23/2020 Fusion of spine of 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43.24] 11/25/2020 Acute postoperative pain [G89.18] 11/25/2020 Pseudogout of right knee [M11.261] 11/26/2020 Abnormal urinalysis [R82.90] 12/01/2020 Rash and nonspecific skin eruption on right thi*12/03/2020 Major depressive disorder, recurrent, mild (HCC*09/02/2022 Chronic obstructive pulmonary disease (HCC) [J4*11/09/2022 Encounter Status:Closed by BELA CORTEZ on 08/09/24 [facility] 06-28-2024 Telephone encounter Note Patient notified of providers message and verbalized understanding. Patient will call back once she speaks to her insurance company again. [facility] 06-28-2024 Miscellaneous Notes Patient notified of providers message and verbalized understanding. Patient will call back once she speaks to her insurance company again. Sonia Karimi states she was told this would be covered. Please let patient know info below and see what she would like to do. She may want to recheck with the people she spoke to previously. If none of this comes through, she may want to pay [id number] for the change she is interested in, not sure if it can be added on to her current bed. Lluvia- [facility]- reports they received order for fully electric hospital bed Reports insurance will not cover a fully electric bed. They just do not cover these. Insurance will cover a semi electric bed and will cover a new one every 5 years. In ov notes patient stated she is unable to turn the crank to adjust the bed height and insurance will just say to stay at the height she needs for transfers. Please phone [facility] with any questions: [phone] documented in this encounter [facility] 06-28-2024 Telephone encounter Note Sonia Karimi states she was told this would be covered. Please let patient know info below and see what she would like to do. She may want to recheck with the people she spoke to previously. If none of this comes through, she may want to pay [id number] for the change she is interested in, not sure if it can be added on to her current bed. [facility] 06-28-2024 Telephone encounter Note [facility]- [facility]- reports they received order for fully electric hospital bed Reports insurance will not cover a fully electric bed. They just do not cover these. Insurance will cover a semi electric bed and will cover a new one every 5 years. In ov notes patient stated she is unable to turn the crank to adjust the bed height and insurance will just say to stay at the height she needs for transfers. Please phone Llu[facility] with any questions: [phone] [facility] 06-27-2024 Telephone encounter Note Order faxed to [facility] to number below as requested [facility] 06-27-2024 Miscellaneous Notes Order faxed to [facility] to number below as requested ok, she did not know DME at time of visit. Patient calling asking for an order for full electric hospital bed. She said was discussing this during her appt yesterday. Her current one she can not get the height of the bed adjusted once she is in it, because it is crank style. Patient asking for the order to be faxed to [facility] fax number is [phone]. Not certain if bariatric style needs ordered. Pending order needs diagnosis. Please advise documented in this encounter [facility] 06-27-2024 Telephone encounter Note ok, she did not know DME at time of visit. [facility] 06-27-2024 Progress note Formatting of t his note might be different from the original. Labs are overall in acceptable range, recheck glucose with next lab work as it was a bit elevated [facility] 06-27-2024 Miscellaneous Notes Labs are overall in acceptable range, recheck glucose with next lab work as it was a bit elevated documented in this encounter [facility] 06-26-2024 Telephone encounter Note Patient calling asking for an order for full electric hospital bed. She said was discussing this during her appt yesterday. Her current one she can not get the height of the bed adjusted once she is in it, because it is crank style. Patient asking for the order to be faxed to [facility] fax number is [phone]. Not certain if bariatric style needs ordered. Pending order needs diagnosis. Please advise [facility] 06-25-2024 History of Presen t illness Narrative [facility] SUBJECTIVE: Anxiety Screening Never done RSV Vaccine(1 - Risk 60-74 years 1-dose series) Never done Mammogram Screening due on 11/22/2017 Bone Density Screening Never done Covid-19 Vaccine( season) due on 10/15/2023 Annual PCP Team Chronic Disease Visit due on 11/10/2023 Advance Directive Discussion due on 02/14/2024 Colorectal Cancer Screening due on 06/27/2024 HPI Sonia Karimi is a 68 year old female. 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 ACTIVE PROBLEM LIST Essential Hypertension Hyperlipidemia Osteoarthritis of Both Knees Iris Treated With Bipap Class 3 severe obesity due to excess calories without serious comorbidity with body mass index (BMI) of 45.0 to 49.9 in adult Cervical Myopathy Cervical Spondylosis With Myelopathy History of Cervical Polypectomy Paraparesis (Hcc) Thyroid Nodule Ventricular Tachycardia, Non-Sustained (Hcc) Spondylosis With Myelopathy, Thoracic Region Paronychia of Right Middle Finger Fusion of Spine of Thoracic Region Acute Postoperative Pain Pseudogout of Right Knee Abnormal Urinalysis Rash and nonspecific skin eruption on right thigh Major Depressive Disorder, Recurrent, Mild Chronic Obstructive Pulmonary Disease (Hcc) Presents today for a routine visit, in need of an adjustable electric bed as she can not get in and out of her bed currently. Muscle Spasms: - Experiencing muscle spasms in bilateral lower extremities, from knees down. - Current muscle relaxant is not providing adequate relief. - Previously used tizanidine with better results; requests to switch back. - Taking current muscle relaxant every 8 hours, not PRN. Mobility Issues: Has paraparesis - Primarily uses a wheelchair; unable to stand for transfers. - Utilizes a transfer board; has difficulty positioning the board to get out of bed. - Right leg is paralyzed and has a history of pseudogout; hip is still sore. - Weakness in left leg and arthritis in both knees. - Engages in exercises to put weight on feet and lift buttocks off the chair. - Has not walked since December of the previous year. - Can stand with assistance from a machine but not independently. Does not have this machine available to her at home. I Hospital Bed Request: - Currently has a manual hospital bed with a crank at the foot, making it impossible to adjust once in bed. - Requests an electric hospital bed with adjustable height to facilitate independence in transfers. - Insurance requires a [id number] meeting and an order for the bed. - Has assistance at home in the mornings and evenings but not during the day; struggles with getting out of bed independently. HPI excerpted from previous visit 04/18/2024:Presents for SNF follow-up visit. Outside records received from [facility] indicate admission on October 06, 2023 through April 12, 2024. She was transferred to [facility] for therapy following L4-L5 laminectomy and discectomy with Dr. Curry orthopedics. She returned to the hospital same day due to a problem with her cat with a fall noting left arm pain and left humerus fracture. She also had a fall in December 2023. March 12, 2024 she lost control an electric wheelchair and hit right great toe. She underwent therapy with improvement of her status. She was discharged to home with slide board transfers from bed to chair chair to bed and otherwise using a mechanical lift. She was discharged with [facility] home health care PT and OT. She was discharged on a regular diet regular consistency and thin liquids. Today notes that she was seen at [facility] for about 10 months. Notes food was not good at [facility], better now since home. Today reports difficulty with transfers since discharge. She is currently using briefs because she cannot manage the toilet at home, having her toilet changed next week as a plan. She wonders if brace to be covered by her insurance, does not know her DME. She also uses washable underpads, wonders if these would also be covered by her DME. Stopped senna, now has had BM daily since discharge home. Using miralax currently. She notes [facility] home health care has not yet come out, they will be coming out next week. She has some daily morning assistance Monday to Monday otherwise home alone. Has had to call the squad for transfer once since her discharge home. Notes pain is controlled with current treatments. No lower extremities edema. Electric WC used all the time, has hospital bed, can not transfer to her usual bed. Review of Systems Musculoskeletal: Positive for arthralgias, back pain and gait problem. Seated in wheelchair, nonambulatory Neurological: Positive for weakness. Objective BP 134/74 Pulse 80 Resp 16 Physical Exam Vitals and nursing note reviewed. Constitutional: Appearance: Normal appearance. HENT: Head: Normocephalic and atraumatic. Eyes: Conjunctiva/sclera: Conjunctivae normal. Neck: Thyroid: No thyroid mass or thyromegaly. Vascular: Normal carotid pulses. Cardiovascular: Rate and Rhythm: Normal rate and regular rhythm. Pulses: Carotid pulses are 2+ on the right side and 2+ on the left side. Radial pulses are 2+ on the right side and 2+ on the left side. Heart sounds: Normal heart sounds. Pulmonary: Effort: Pulmonary effort is normal. Breath sounds: Normal breath sounds. Abdominal: General: Bowel sounds are normal. Palpations: Abdomen is soft. Musculoskeletal: Lumbar back: Spasms and tenderness present. Skin: General: Skin is warm and dry. Neurological: General: No focal deficit present. Mental Status: She is alert and oriented to person, place, and time. Motor: Weakness present. Comments: +transfer only with board, no ambulation Seated in wheelchair, unable to stand for weight. ALLERGIES Allergen Reactions Ativan [Lorazepam] Hives Neomycin Itching Hives, itching Valium [Diazepam] Intolerance somnolence MEDICATIONS atorvastatin (LIPITOR) 10 mg tablet Take 1 tablet by mouth once daily. DULoxetine (CYMBALTA) 30 mg capsule Take 1 capsule by mouth daily at bedtime. daily DULoxetine (CYMBALTA) 60 mg capsule Take 1 capsule by mouth once daily. Take in the morning. gabapentin (NEURONTIN) 800 mg tablet Take 1 tablet by mouth three times a day for 180 days. hydrOXYzine pamoate (VISTARIL) 25 mg capsule Take 1 capsule by mouth daily at bedtime. daily losartan (COZAAR) 50 mg tablet Take 1 tablet by mouth two times a day. pantoprazole DR (PROTONIX) 40 mg tablet Take 1 tablet by mouth two times a day. cholecalciferol (VITAMIN D3) 50 mcg (2,000 unit) tablet Take 1 tablet by mouth once daily. melatonin 5 mg tablet Take 1 tablet by mouth daily at bedtime. M[employer] Power Wheelchair amLODIPine (NORVASC) 10 mg tablet Take 1 tablet by mouth once daily. diclofenac (VOLTAREN) 1 % topical gel Apply 4 g to affected area four times daily. FOR EXTERNAL USE ONLY APPLY TO: right knee Use provided dosing card to measure the ordered dose. acetaminophen (TYLENOL) 500 mg tablet Take 500 mg by mouth twice daily as needed for pain. COMPOUNDED PRESCRIPTION BIPAP 1 liter bleed in 12/5 cm. RR 14 Replacement machine with heated humidity. CPAP mask and supplies. Use nightly. polyethylene glycol 3350 (MIRALAX) 17 gram/dose powder Take 17 g by mouth once daily. as needed for constipation. Dissolve dose in 4 - 8 ounces of liquid and take as directed. Take in the morning. tiZANidine (ZANAFLEX) 4 mg tablet Take 1 tablet by mouth every 8 hours. diclofenac XR (VOLTAREN-XR) 100 mg Tb24 TAKE 1 TABLET BY MOUTH DAILY WITH FOOD NEEDED FOR PAIN (Patient not taking: Reported on 04/18/2024) gabapentin (NEURONTIN) 300 mg capsule Take 1 capsule by mouth two times a day for 180 days. (Patient not taking: Reported on 04/18/2024) cloNIDine HCl (CATAPRES) 0.1 mg tablet Take 1 tablet by mouth twice daily. (Patient not taking: Reported on 04/18/2024) PAST MEDICAL HISTORY Diagnosis Date Cervical polyp Cervical spine disease COPD (chronic obstructive pulmonary disease) (HCC) Hyperlipidemia Hypertension Mild aortic regurgitation repeat echocardiogram [id number] if no other changes Minor depression IRIS (obstructive sleep apnea) Thyroid nodule greater than or equal to 1.5 cm in diameter incidentally noted on imaging study 11/17/2020 b/l nodules. Dominant nodule within the lower pole of the right lobe, measuring up to 6.2 cm, increased in size in the interval. Social History Tobacco Use Smoking status: Former Types: Cigarettes Smokeless tobacco: Never Tobacco comments: quit prior to 1979 Substance Use Topics Alcohol use: No Drug use: No 1. Paraparesis (HCC) (G82.20) 2. Spinal stenosis, lumbar region with neurogenic claudication (M48.062) 3. Fusion of spine of thoracic region (M43.24) 4. Cervical spondylosis with myelopathy (M47.12) - remains wheelchair-bound with significant weakness in the right leg and inability to stand or walk independently. - Discussed current limitations in mobility and challenges with transfers due to non-adjustable hospital bed. - Ordered fully electric hospital bed with adjustable height to facilitate independent transfers and improve mobility. - Sonia Karimi to provide Durable Medical Equipment (DME) supplier information for order processing. - Has scheduled follow-up appointment in July. 5. Primary osteoarthritis of both knees (M17.0) - Chronic condition contributing to mobility limitations. - Continue current physical therapy regimen focusing on weight-bearing exercises and strengthening. 6. Self-care deficit (Z78.9) - requires assistance with Activities of Daily Living (ADLs) in the morning and evening; no assistance available during the day. - Discussed potential for home health aide services to be covered by insurance. - Will place an order for home health aide services; Sonia Karimi to confirm with insurance regarding coverage and approved providers. 7. Chronic obstructive pulmonary disease, unspecified COPD type (HCC) (J44.9) stable on current treatment, continue unchanged 8. Constipation, unspecified constipation type (K59.00) - Previously on Senna 4 tablets daily, reduced to 1 tablet daily with improvement in symptoms. - Discontinued Senna; resumed Miralax for gentler bowel management. 9. Essential hypertension (I10) controlled, continue present management unchanged 10. Hyperlipidemia, unspecified hyperlipidemia type (E78.5) stable on current treatment, continue unchanged Follow up Melissa Muhammad MD is scheduled Josephine Hawthorne APRN.PERSONNEL DIRECTOR Medical Decision Making: Problems: Moderate: 2+ stable chronic illnesses Data: Unique test result(s) reviewed: 3+ Risk: Moderate: Drug management Medical Decision Making Level: 4 - Moderate documented in this encounter [facility] 06-25-2024 Note HNO ID: [id number] Author: JOSEPHINE HAWTHORNE APRN.PERSONNEL DIRECTOR Service: ? Author Type: Nurse Specialist Type: Progress Notes Filed: 06/27/2024 11:39 Note Text: [facility] [place] SUBJECTIVE: Anxiety Screening Never done RSV Vaccine(1 - Risk 60-74 years 1-dose series) Never done Mammogram Screening due on 11/22/2017 Bone Density Screening Never done Covid-19 Vaccine(2023- season) due on 10/15/2023 Annual PCP Team Chronic Disease Visit due on 11/10/2023 Advance Directive Discussion due on 02/14/2024 Colorectal Cancer Screening due on 06/27/2024 HPI Sonia Karimi is a 68 year old female. 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 ACTIVE PROBLEM LIST Essential Hypertension Hyperlipidemia Osteoarthritis of Both Knees Iris Treated With Bipap Class 3 severe obesity due to excess calories without serious comorbidity with body mass index (BMI) of 45.0 to 49.9 in adult Cervical Myopathy Cervical Spondylosis With Myelopathy History of Cervical Polypectomy Paraparesis (Hcc) Thyroid Nodule Ventricular Tachycardia, Non-Sustained (Hcc) Spondylosis With Myelopathy, Thoracic Region Paronychia of Right Middle Finger Fusion of Spine of Thoracic Region Acute Postoperative Pain Pseudogout of Right Knee Abnormal Urinalysis Rash and nonspecific skin eruption on right thigh Major Depressive Disorder, Recurrent, Mild Chronic Obstructive Pulmonary Disease (Hcc) Presents today for a routine visit, in need of an adjustable electric bed as she can not get in and out of her bed currently. Muscle Spasms: - Experiencing muscle spasms in bilateral lower extremities, from knees down. - Current muscle relaxant is not providing adequate relief. - Previously used tizanidine with better results; requests to switch back. - Taking current muscle relaxant every 8 hours, not PRN. Mobility Issues: Has paraparesis - Primarily uses a wheelchair; unable to stand for transfers. - Utilizes a transfer board; has difficulty positioning the board to get out of bed. - Right leg is paralyzed and has a history of pseudogout; hip is still sore. - Weakness in left leg and arthritis in both knees. - Engages in exercises to put weight on feet and lift buttocks off the chair. - Has not walked since December of the previous year. - Can stand with assistance from a machine but not independently. Does not have this machine available to her at home. I Hospital Bed Request: - Currently has a manual hospital bed with a crank at the foot, making it impossible to adjust once in bed. - Requests an electric hospital bed with adjustable height to facilitate independence in transfers. - Insurance requires a [id number] meeting and an order for the bed. - Has assistance at home in the mornings and evenings but not during the day; struggles with getting out of bed independently. HPI excerpted from previous visit 04/18/2024:Presents for SNF follow-up visit. Outside records received from [facility] indicate admission on October 06, 2023 through April 12, 2024. She was transferred to [facility] for therapy following L4-L5 laminectomy and discectomy with Dr. Curry orthopedics. She returned to the hospital same day due to a problem with her cat with a fall noting left arm pain and left humerus fracture. She also had a fall in December 2023. March 12, 2024 she lost control an electric wheelchair and hit right great toe. She underwent therapy with improvement of her status. She was discharged to home with slide board transfers from bed to chair chair to bed and otherwise using a mechanical lift. She was discharged with [facility] home health care PT and OT. She was discharged on a regular diet regular consistency and thin liquids. Today notes that she was seen at [facility] for about 10 months. Notes food was not good at [facility], better now since home. Today reports difficulty with transfers since discharge. She is currently using briefs because she cannot manage the toilet at home, having her toilet changed next week as a plan. She wonders if brace to be covered by her insurance, does not know her DME. She also uses washable underpads, wonders if these would also be covered by her DME. Stopped senna, now has had BM daily since discharge home. Using miralax currently. She notes [facility] home health care has not yet come out, they will be coming out next week. She has some daily morning assistance Monday to Monday otherwise home alone. Has had to call the squad for transfer once since her discharge home. Notes pain is controlled with current treatments. No lower extremities edema. Electric WC used all the time, has hospital bed, can not transfer to her usual bed. Review of Systems Musculoskeletal: Positive for arthralgias, back pain and gait problem. Seated in wheelchair, nonambulatory Neurological: Positive for weakness. Objective BP 134/74 Pulse 80 Resp 16 Physical Exam Vitals and nursing note re (more content not included)... [facility] 06-19-2024 Telephone encounter Note Home care Certification Form 485 received from [facility]. For cert dates 04/19/24-06/17/24 that were signed on 05/06/24. New Certification Patient's home health 485 form / care plan for stated certification period reviewed and signed. Relevant medical records were reviewed. No changes were indicated [facility] 06-19-2024 Miscellaneous Notes Home care Certification Form 485 received from [facility]. For cert dates 04/19/24-06/17/24 that were signed on 05/06/24. New Certification Patient's home health 485 form / care plan for stated certification period reviewed and signed. Relevant medical records were reviewed. No changes were indicated documented in this encounter [facility] 06-17-2024 Telephone encounter Note No answer. Left providers message and ask he call the office with any questions or concerns [facility] 06-17-2024 Miscellaneous Notes No answer. Left providers message and ask he call the office with any questions or concerns OK Itz with [facility] calling to ask for verbal order to approve re certification of pt's Physical Therapy plan of care. Pt's plan of care to be extended for one time per week for 5 more weeks for transfers. Please call Itz back with approval of verbal order at [phone] Miriam Gonzales RN documented in this encounter [facility] 06-17-2024 Telephone encounter Note OK [facility] 06-17-2024 Telephone encounter Note Itz with [facility] calling to ask for verbal order to approve re certification of pt's Physical Therapy plan of care. Pt's plan of care to be extended for one time per week for 5 more weeks for transfers. Please call Itz back with approval of verbal order at [phone] Miriam Gonzales RN [facility] 05-10-2024 Telephone encounter Note Office note and prescription faxed back to [facility]. [facility] 05-10-2024 Miscellaneous Notes Office note and prescription faxed back to [facility]. So need a PT order? I can place that. Please send to them. Esteban from [facility] calls and states that patient had contacted them requesting modification to her powered wheelchair. [facility] took care of her when she got present wheel chair. Patient has been having issues with wheel chair and is needing modification to wheel chair. [facility] is requesting order so that their physical therapy can go out to patient to see what modifications are needed for wheel chair. Eun Linton RN No answer. Left message for Brock Jorge of [facility] to call office and ask to speak to a nurse regarding form we received. We received a fax from [facility] for Sonia Karimi requesting a prescription for therapy and most recent chart notes as Sonia Karimi requests to be seen by [facility] for evaluation for modifications to her current power wheelchair. She has paraparesis and has chronically been in a power wheelchair which she is currently using as far as I am aware. I am not sure what modifications she is requesting. Not sure exactly what [facility] is looking for from us regarding power wheelchair use. May need to question this further with them. Is she in need of a wheelchair evaluation with PT to determine needs or any adjustments needed for her chair? [facility] or pt. may have answer to this. If needed can do a video visit with me as I saw her for hospital /SNF discharge, not regarding her wheelchair use/needs. documented in this encounter [facility] 05-10-2024 Telephone encounter Note So need a PT order? I can place that. Please send to them. [facility] 05-10-2024 Telephone encounter Note Esteban from [facility] calls and states that patient had contacted them requesting modification to her powered wheelchair. [facility] took care of her when she got present wheel chair. Patient has been having issues with wheel chair and is needing modification to wheel chair. [facility] is requesting order so that their physical therapy can go out to patient to see what modifications are needed for wheel chair. Eun Linton RN [facility] 05-10-2024 Telephone encounter Note No answer. Left message for Brock Jorge of [facility] to call office and ask to speak to a nurse regarding form we received. [facility] 05-10-2024 Telephone encounter Note We received a fax from [facility] for Sonia Karimi requesting a prescription for therapy and most recent chart notes as Sonia Karimi requests to be seen by [facility] for evaluation for modifications to her current power wheelchair. She has paraparesis and has chronically been in a power wheelchair which she is currently using as far as I am aware. I am not sure what modifications she is requesting. Not sure exactly what [facility] is looking for from us regarding power wheelchair use. May need to question this further with them. Is she in need of a wheelchair evaluation with PT to determine needs or any adjustments needed for her chair? [facility] or pt. may have answer to this. If needed can do a video visit with me as I saw her for hospital /SNF discharge, not regarding her wheelchair use/needs. [facility] 05-10-2024 Telephone encounter Note OK for change. [facility] 05-10-2024 Miscellaneous Notes OK for change. documented in this encounter [facility] 04-26-2024 Telephone encounter Note [facility] calling back and states that she was wanting home health aide to be discontinued. OT is going to continue to see patient. Eun Linton RN [facility] 04-26-2024 Miscellaneous Notes [facility] calling back and states that she was wanting home health aide to be discontinued. OT is going to continue to see patient. Eun Linton RN Detailed message left for [facility] to discontinue OT. May d/c OT as requested Reina from [facility] OT calling would like to d/c home health aide order for bath. Working on having patient do her bathing herself. documented in this encounter [facility] 04-26-2024 Telephone encounter Note Detailed message left for [facility] to discontinue OT. [facility] 04-26-2024 Telephone encounter Note May d/c OT as requested [facility] 04-26-2024 Telephone encounter Note Veena holly with [facility] calls to request a copy of most recent OV notes for continuity of care. Faxed to [phone] per request. Jose Miguel Resendiz RN [facility] 04-26-2024 Miscellaneous Notes Veena nurse with [facility] calls to request a copy of most recent OV notes for continuity of care. Faxed to [phone] per request. Jose Miguel Resendiz RN documented in this encounter [facility] 04-25-2024 Telephone encounter Note Reina from [facility] OT calling would like to d/c home health aide order for bath. Working on having patient do her bathing herself. [facility] 04-19-2024 Telephone encounter Note Margy nurse from [facility] calling to update Dr. Muhammad that she saw pt today and opened up her case for SN, PT, OT and bath aide. Pt recently discharged from intermediate to home. (Pt had been in intermediate since last May) [facility] 04-19-2024 Miscellaneous Notes Margy nurse from [facility] calling to update Dr. Muhammad that she saw pt today and opened up her case for SN, PT, OT and bath aide. Pt recently discharged from intermediate to home. (Pt had been in intermediate since last May) documented in this encounter [facility] 04-18-2024 History of Presen t illness Narrative SUBJECTIVE: Spirometry Never done Anxiety Screening Never done Alpha-1 Antitrypsin Deficiency Screening Never done RSV Vaccine(1 - Risk 60-74 years 1-dose series) Never done Mammogram Screening due on 11/22/2017 Bone Density Screening Never done Influenza Vaccine(1) due on 10/15/2023 Covid-19 Vaccine( season) due on 10/15/2023 Annual PCP Team Chronic Disease Visit due on 11/10/2023 Advance Directive Discussion due on 02/14/2024 Colorectal Cancer Screening due on 06/27/2024 HPI Sonia Karimi is a 68 year old female. 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 ACTIVE PROBLEM LIST Essential Hypertension Hyperlipidemia Osteoarthritis of Both Knees Iris Treated With Bipap Class 3 severe obesity due to excess calories without serious comorbidity with body mass index (BMI) of 45.0 to 49.9 in adult Cervical Myopathy Cervical Spondylosis With Myelopathy History of Cervical Polypectomy Paraparesis (Hcc) Thyroid Nodule Ventricular Tachycardia, Non-Sustained (Hcc) Spondylosis With Myelopathy, Thoracic Region Paronychia of Right Middle Finger Fusion of Spine of Thoracic Region Acute Postoperative Pain Pseudogout of Right Knee Abnormal Urinalysis Rash and nonspecific skin eruption on right thigh Major Depressive Disorder, Recurrent, Mild (Hcc) Chronic Obstructive Pulmonary Disease (Hcc) Presents for SNF follow-up visit. Outside records received from [facility] indicate admission on October 06, 2023 through April 12, 2024. She was transferred to [facility] for therapy following L4-L5 laminectomy and discectomy with Dr. Curry orthopedics. She returned to the hospital same day due to a problem with her cat with a fall noting left arm pain and left humerus fracture. She also had a fall in December 2023. March 12, 2024 she lost control an electric wheelchair and hit right great toe. She underwent therapy with improvement of her status. She was discharged to home with slide board transfers from bed to chair chair to bed and otherwise using a mechanical lift. She was discharged with [facility] home health care PT and OT. She was discharged on a regular diet regular consistency and thin liquids. Today notes that she was seen at [facility] for about 10 months. Notes food was not good at [facility], better now since home. Today reports difficulty with transfers since discharge. She is currently using briefs because she cannot manage the toilet at home, having her toilet changed next week as a plan. She wonders if brace to be covered by her insurance, does not know her DME. She also uses washable underpads, wonders if these would also be covered by her DME. Stopped senna, now has had BM daily since discharge home. Using miralax currently. She [facility] not yet come out, they will be coming out next week. She has some daily morning assistance Monday to Monday otherwise home alone. Has had to call the squad for transfer once since her discharge home. Notes pain is controlled with current treatments. No lower extremities edema. Electric WC used all the time, has hospital bed, can not transfer to her usual bed. Review of Systems Musculoskeletal: Positive for arthralgias, back pain and gait problem. Neurological: Positive for weakness. Objective BP 110/73 Pulse 83 Resp 16 Physical Exam Vitals and nursing note reviewed. Constitutional: Appearance: Normal appearance. HENT: Head: Normocephalic and atraumatic. Eyes: Conjunctiva/sclera: Conjunctivae normal. Neck: Thyroid: No thyroid mass or thyromegaly. Vascular: Normal carotid pulses. Cardiovascular: Rate and Rhythm: Normal rate and regular rhythm. Pulses: Carotid pulses are 2+ on the right side and 2+ on the left side. Radial pulses are 2+ on the right side and 2+ on the left side. Heart sounds: Normal heart sounds. Pulmonary: Effort: Pulmonary effort is normal. Breath sounds: Normal breath sounds. Abdominal: General: Bowel sounds are normal. Palpations: Abdomen is soft. Musculoskeletal: Lumbar back: Spasms and tenderness present. Skin: General: Skin is warm and dry. Neurological: General: No focal deficit present. Mental Status: She is alert and oriented to person, place, and time. Seated in wheelchair, unable to stand for weight. ALLERGIES Allergen Reactions Ativan [Lorazepam] Hives Neomycin Itching Hives, itching Valium [Diazepam] Intolerance somnolence MEDICATIONS Miscellaneous Medical Supply Power Wheelchair diclofenac (VOLTAREN) 1 % topical gel Apply 4 g to affected area four times daily. FOR EXTERNAL USE ONLY APPLY TO: right knee Use provided dosing card to measure the ordered dose. acetaminophen (TYLENOL) 500 mg tablet Take 500 mg by mouth twice daily as needed for pain. COMPOUNDED PRESCRIPTION BIPAP 1 liter bleed in 12/5 cm. RR 14 Replacement machine with heated humidity. CPAP mask and supplies. Use nightly. atorvastatin (LIPITOR) 10 mg tablet Take 1 tablet by mouth once daily. DULoxetine (CYMBALTA) 30 mg capsule Take 1 capsule by mouth daily at bedtime. daily DULoxetine (CYMBALTA) 60 mg capsule Take 1 capsule by mouth once daily. Take in the morning. gabapentin (NEURONTIN) 800 mg tablet Take 1 tablet by mouth three times a day for 180 days. hydrOXYzine pamoate (VISTARIL) 25 mg capsule Take 1 capsule by mouth daily at bedtime. daily losartan (COZAAR) 50 mg tablet Take 1 tablet by mouth two times a day. pantoprazole DR (PROTONIX) 40 mg tablet Take 1 tablet by mouth two times a day. senna-docusate (SENNA-S) 8.6-50 mg per tablet Take 2 tablets by mouth two times a day. for constipation tiZANidine (ZANAFLEX) 4 mg tablet Take 1 tablet by mouth every 8 hours as needed (muscle spasms). polyethylene glycol 3350 (MIRALAX) 17 gram/dose powder Take 17 g by mouth once daily. as needed for constipation. Dissolve dose in 4 - 8 ounces of liquid and take as directed. Take in the morning. cholecalciferol (VITAMIN D3) 50 mcg (2,000 unit) tablet Take 1 tablet by mouth once daily. melatonin 5 mg tablet Take 1 tablet by mouth daily at bedtime. docusate sodium (COLACE) 100 mg capsule Take 1 capsule by mouth two times a day as needed for constipation. Take this to avoid constipation with oxycodone use (Patient not taking: Reported on 04/18/2024) diclofenac XR (VOLTAREN-XR) 100 mg Tb24 TAKE 1 TABLET BY MOUTH DAILY WITH FOOD NEEDED FOR PAIN (Patient not taking: Reported on 04/18/2024) gabapentin (NEURONTIN) 300 mg capsule Take 1 capsule by mouth two times a day for 180 days. (Patient not taking: Reported on 04/18/2024) amLODIPine (NORVASC) 10 mg tablet Take 1 tablet by mouth once daily. methocarbamol (ROBAXIN) 750 mg tablet Take 1 tablet by mouth every 8 hours as needed (Muscle spasms). CAUTION: May cause drowsiness. (Patient not taking: Reported on 04/18/2024) cloNIDine HCl (CATAPRES) 0.1 mg tablet Take 1 tablet by mouth twice daily. (Patient not taking: Reported on 04/18/2024) PAST MEDICAL HISTORY Diagnosis Date Cervical polyp Cervical spine disease COPD (chronic obstructive pulmonary disease) (HCC) Hyperlipidemia Hypertension Mild aortic regurgitation repeat echocardiogram [id number] if no other changes Minor depression IRIS (obstructive sleep apnea) Thyroid nodule greater than or equal to 1.5 cm in diameter incidentally noted on imaging study 11/17/2020 b/l nodules. Dominant nodule within the lower pole of the right lobe, measuring up to 6.2 cm, increased in size in the interval. Social History Tobacco Use Smoking status: Former Types: Cigarettes Smokeless tobacco: Never Tobacco comments: quit prior to 1979 Substance Use Topics Alcohol use: No Drug use: No ASSESSMENT/PLAN: 1. S/P lumbar discectomy - ICD9: V45.89, ICD10: Z98.890 (primary diagnosis) 2. S/P laminectomy - ICD9: V45.89, ICD10: Z98.890 3. History of humerus fracture - ICD9: V15.51, ICD10: Z87.81 4. History of fall - ICD9: V15.88, ICD10: Z91.81 She reports feeling much improved/recovered following 10 months at SNF. Reports some pain. Reports home health care to start next week. Does have assistance in the home currently in the mornings. Pain is currently much improved and controlled on current treatments. Continues with paraparesis, using electric wheelchair transfer board and hospital bed. In need of adjustment of her toilet at home and plans on this for next week. Reports using pull-ups and washable type chux as currently as she cannot use her toilet. Wonders if DME provider would cover, she does not know which [facility] provider is covered by her insurance. [facility] to strt next week. SN<PT,OT. - DULOXETINE 30 MG CAPSULE,DELAYED RELEASE - DULOXETINE 60 MG CAPSULE,DELAYED RELEASE - GABAPENTIN 800 MG TABLET 5. Hyperlipidemia, unspecified hyperlipidemia type - ICD9: 272.4, ICD10: E78.5 Controlled, continue present management - ATORVASTATIN 10 MG TABLET 6. Chronic obstructive pulmonary disease, unspecified COPD type (HCC) - ICD9: 496, ICD10: J44.9 Controlled, continue present management - [id number] 7. Essential hypertension - ICD9: 401.9, ICD10: I10 Controlled, continue present management - LOSARTAN 50 MG TABLET 8. Paraparesis (HCC) - ICD9: 344.1, ICD10: G82.20 Limited mobility, using transfer boards and electric wheelchair. - GABAPENTIN 800 MG TABLET 9. Major depressive disorder, recurrent, mild (HCC) - ICD9: 296.31, ICD10: F33.0 Controlled, continue present management - DULOXETINE 30 MG CAPSULE,DELAYED RELEASE - DULOXETINE 60 MG CAPSULE,DELAYED RELEASE 10. History of insomnia - ICD9: V13.89, ICD10: Z87.898 Controlled, continue present management - HYDROXYZINE PAMOATE 25 MG CAPSULE - MELATONIN 5 MG TABLET 11. Vitamin D deficiency - ICD9: 268.9, ICD10: E55.9 - CHOLECALCIFEROL (VITAMIN D3) 50 MCG (2,000 UNIT) TABLET 12. Constipation, unspecified constipation type - ICD9: 564.00, ICD10: K59.00 Controlled, continue present management - SENNOSIDES 8.6 MG-DOCUSATE SODIUM 50 MG TABLET - POLYETHYLENE GLYCOL 3350 17 GRAM/DOSE ORAL POWDER 13. Wheelchair dependent - ICD9: V46.3, ICD10: Z99.3 She has an electric wheelchair, hospital bed, has home health care to be coming out, currently does have some assistance in the home in the mornings. 14. Gastroesophageal reflux disease, unspecified whether esophagitis present - ICD9: 530.81, ICD10: K21.9 Controlled, continue present management - PANTOPRAZOLE 40 MG TABLET,DELAYED RELEASE 3 mo follow up MD Josephine Angel APRN.CNS Medical Decision Making: Problems: Moderate: 2+ stable chronic illnesses and Acute illness with systemic symptoms Data: Unique source(s) for external note(s) reviewed: 1 Risk: Moderate: Drug management Medical Decision Making Level: 4 - Moderate documented in this encounter [facility] 04-18-2024 Note HNO ID: [id number] Author: JOSEPHINE HAWTHORNE APRN.PERSONNEL DIRECTOR Service: ? Author Type: Nurse Specialist Type: Progress Notes Filed: 04/18/2024 14:20 Note Text: SUBJECTIVE: Spirometry Never done Anxiety Screening Never done Alpha-1 Antitrypsin Deficiency Screening Never done RSV Vaccine(1 - Risk 60-74 years 1-dose series) Never done Mammogram Screening due on 11/22/2017 Bone Density Screening Never done Influenza Vaccine(1) due on 10/15/2023 Covid-19 Vaccine(2023- season) due on 10/15/2023 Annual PCP Team Chronic Disease Visit due on 11/10/2023 Advance Directive Discussion due on 02/14/2024 Colorectal Cancer Screening due on 06/27/2024 HPI Sonia Karimi is a 68 year old female. 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 ACTIVE PROBLEM LIST Essential Hypertension Hyperlipidemia Osteoarthritis of Both Knees Iris Treated With Bipap Class 3 severe obesity due to excess calories without serious comorbidity with body mass index (BMI) of 45.0 to 49.9 in adult Cervical Myopathy Cervical Spondylosis With Myelopathy History of Cervical Polypectomy Paraparesis (Hcc) Thyroid Nodule Ventricular Tachycardia, Non-Sustained (Hcc) Spondylosis With Myelopathy, Thoracic Region Paronychia of Right Middle Finger Fusion of Spine of Thoracic Region Acute Postoperative Pain Pseudogout of Right Knee Abnormal Urinalysis Rash and nonspecific skin eruption on right thigh Major Depressive Disorder, Recurrent, Mild (Hcc) Chronic Obstructive Pulmonary Disease (Hcc) Presents for SNF follow-up visit. Outside records received from [facility] indicate admission on October 06, 2023 through April 12, 2024. She was transferred to [facility] for therapy following L4-L5 laminectomy and discectomy with Dr. Curry orthopedics. She returned to the hospital same day due to a problem with her cat with a fall noting left arm pain and left humerus fracture. She also had a fall in December 2023. March 12, 2024 she lost control an electric wheelchair and hit right great toe. She underwent therapy with improvement of her status. She was discharged to home with slide board transfers from bed to chair chair to bed and otherwise using a mechanical lift. She was discharged with [facility] home health care PT and OT. She was discharged on a regular diet regular consistency and thin liquids. Today notes that she was seen at [facility] for about 10 months. Notes food was not good at [facility], better now since home. Today reports difficulty with transfers since discharge. She is currently using briefs because she cannot manage the toilet at home, having her toilet changed next week as a plan. She wonders if brace to be covered by her insurance, does not know her DME. She also uses washable underpads, wonders if these would also be covered by her DME. Stopped senna, now has had BM daily since discharge home. Using miralax currently. She notes [facility] home health care has not yet come out, they will be coming out next week. She has some daily morning assistance Monday to Monday otherwise home alone. Has had to call the squad for transfer once since her discharge home. Notes pain is controlled with current treatments. No lower extremities edema. Electric WC used all the time, has hospital bed, can not transfer to her usual bed. Review of Systems Musculoskeletal: Positive for arthralgias, back pain and gait problem. Neurological: Positive for weakness. Objective BP 110/73 Pulse 83 Resp 16 Physical Exam Vitals and nursing note reviewed. Constitutional: Appearance: Normal appearance. HENT: Head: Normocephalic and atraumatic. Eyes: Conjunctiva/sclera: Conjunctivae normal. Neck: Thyroid: No thyroid mass or thyromegaly. Vascular: Normal carotid pulses. Cardiovascular: Rate and Rhythm: Normal rate and regular rhythm. Pulses: Carotid pulses are 2+ on the right side and 2+ on the left side. Radial pulses are 2+ on the right side and 2+ on the left side. Heart sounds: Normal heart sounds. Pulmonary: Effort: Pulmonary effort is normal. Breath sounds: Normal breath sounds. Abdominal: General: Bowel sounds are normal. Palpations: Abdomen is soft. Musculoskeletal: Lumbar back: Spasms and tenderness present. Skin: General: Skin is warm and dry. Neurological: General: No focal deficit present. Mental Status: She is alert and oriented to person, place, and time. Seated in wheelchair, unable to stand for weight. ALLERGIES Allergen Reactions Ativan [Lorazepam] Hives Neomycin Itching Hives, itching Valium [Diazepam] Intolerance somnolence MEDICATIONS Miscellaneous [employer] Power Wheelchair diclofenac (VOLTAREN) 1 % topical gel Apply 4 g to affected area four times daily. FOR EXTERNAL USE ONLY APPLY TO: right knee Use provided dosing card to measure the ordered dose. acetaminophen (TYLENOL) 500 mg tablet Take 500 mg by mouth twice daily as needed fo (more content not included)... [facility] 04-17-2024 Telephone encounter Note Luz Maria has been notified of below. [facility] 04-17-2024 Miscellaneous Notes Luz Maria has been notified of below. Will follow Okay orders as noted below Patient will need follow up Luz Maria with [facility] calls to ask if provider will follow their orders for SN, PT, OT, and VIBRATION ANALYST for bathing. Patient discharged home from longterm facility on 04/12/2024 following rehabilitation. Luz Maria requests verbal orders be called back at [phone]. Jose Miguel Resendiz RN documented in this encounter [facility] 04-17-2024 Telephone encounter Note Will follow Okay orders as noted below Patient will need follow up [facility] 04-17-2024 Telephone encounter Note Luz Maria with [facility] calls to ask if provider will follow their orders for SN, PT, OT, and VIBRATION ANALYST for bathing. Patient discharged home from longterm facility on 04/12/2024 following rehabilitation. Luz Maria requests verbal orders be called back at [phone]. Jose Miguel Resendiz RN [facility] 03-14-2024 Note HNO ID: [id number] Author: MAGDA RODRIGUEZ MA Service: ? Author Type: Guest Attendant Type: Progress Notes Filed: 03/14/2024 10:28 Note Text: POPULATION HEALTH NAVIGATION OUTREACH Action/FYI Contacted patient to schedule HCC care gaps and health maintenance. 1st attempt: Unable to leave message as voicemail was full 2nd attempt: My Chart message sent Topic Due (Y or N) Comments Medicare Wellness N PCP Follow up Y Colorectal Cancer Screening Y Due 07/07 A1C N HTN/Controlling BP Y Flu Y HCC Y Updated appointment notes N Reason for Outreach Care Gap/HCC or Scheduling Wellness Visits Care Gaps due: Follow-up Appointment Controlling Blood Pressure Colorectal Cancer Screening Flu Vaccine Patient Contacted: Unable or unnecessary to reach patient: Unable to leave message Wapi message sent HCC related Navigation Signature: Magda Rodriguez MA March 14, 2024 9:05 AM [facility] 03-14-2024 History of Presen t illness Narrative POPULATION HEALTH NAVIGATION OUTREACH Action/FYI Contacted patient to schedule HCC care gaps and health maintenance. 1st attempt: Unable to leave message as voicemail was full 2nd attempt: My Chart message sent Topic Due (Y or N) Comments Medicare Wellness N PCP Follow up Y Colorectal Cancer Screening Y Due 07/07 A1C N HTN/Controlling BP Y Flu Y HCC Y Updated appointment notes N Reason for Outreach Care Gap/HCC or Scheduling Wellness Visits Care Gaps due: Follow-up Appointment Controlling Blood Pressure Colorectal Cancer Screening Flu Vaccine Patient Contacted: Unable or unnecessary to reach patient: Unable to leave message Wapi message sent HCC related Navigation Signature: Magda Rodriguez MA March 14, 2024 9:05 AM documented in this encounter [facility] 03-14-2024 Note Patient Outreach (NE TNAV) SONIA KARIMI ([id number]) 1955 F Date Time Provider Department 03/14/24 MAGDA RODRIGUEZ During your visit today, we recorded the following information about you: Magda Rodriguez MA 03/14/2024 10:28 AM Signed POPULATION HEALTH NAVIGATION OUTREACH Action/FYI Contacted patient to schedule HCC care gaps and health maintenance. 1st attempt: Unable to leave message as voicemail was full 2nd attempt: My Chart message sent Topic Due (Y or N) Comments Medicare Wellness N PCP Follow up Y Colorectal Cancer Screening Y Due 07/07 A1C N HTN/Controlling BP Y Flu Y HCC Y Updated appointment notes N Reason for Outreach Care Gap/HCC or Scheduling Wellness Visits Care Gaps due: Follow-up Appointment Controlling Blood Pressure Colorectal Cancer Screening Flu Vaccine Patient Contacted: Unable or unnecessary to reach patient: Unable to leave message gokitt message sent HCC related Navigation Signature: Magda Rodriguez MA March 14, 2024 9:05 AM Allergies As of Date: 03/14/2024 Noted Allergy Reaction ATIVAN (LORAZEPAM) 03/26/2012 4 - Hives NEOMYCIN 02/02/2018 9 - Itching Comments: Hives, itching VALIUM (DIAZEPAM) 11/28/2020 5 - Intolerance Comments: somnolence Date Reviewed: 05/11/2023 Reviewed by: Poppy Brunner LPN - Fully Assessed Reason for Visit: Population Health Navigation Outreach [3910] Cmt: Cassi/Workbelatosha/ACO Prescriptions as of 03/14/2024 - predniSONE (DELTASONE) 10 mg tablet Take 40 mg x 5 days, 20 mg x 5 days, 10 mg x 5 days. Take with breakfast - docusate sodium (COLACE) 100 mg capsule Take 1 capsule by mouth two times a day as needed for constipation. Take this to avoid constipation with oxycodone use - diclofenac XR (VOLTAREN-XR) 100 mg Tb24 TAKE 1 TABLET BY MOUTH DAILY WITH FOOD NEEDED FOR PAIN - gabapentin (NEURONTIN) 300 mg capsule Take 1 capsule by mouth two times a day for 180 days. - [facility] [employer] Power Wheelchair - spironolactone (ALDACTONE) 25 mg tablet Take 1 tablet by mouth once daily. - amLODIPine (NORVASC) 10 mg tablet Take 1 tablet by mouth once daily. - atorvastatin (LIPITOR) 10 mg tablet Take 1 tablet by mouth once daily. - diclofenac (VOLTAREN) 1 % topical gel Apply 4 g to affected area four times daily. FOR EXTERNAL USE ONLY APPLY TO: right knee Use provided dosing card to measure the ordered dose. - methocarbamol (ROBAXIN) 750 mg tablet Take 1 tablet by mouth every 8 hours as needed (Muscle spasms). CAUTION: May cause drowsiness. - sertraline (ZOLOFT) 100 mg tablet Take 1 tablet by mouth once daily. - valsartan (DIOVAN) 160 mg tablet Take 1 tablet by mouth once daily. - valsartan (DIOVAN) 80 mg tablet Take one every PM (in addition to 160 mg. Daily in AM). - cloNIDine HCl (CATAPRES) 0.1 mg tablet Take 1 tablet by mouth twice daily. - acetaminophen (TYLENOL) 500 mg tablet Take 500 mg by mouth twice daily as needed for pain. - cholecalciferol (VITAMIN D3) 50 mcg (2,000 unit) tablet Take 2,000 Units by mouth once daily. - COMPOUNDED PRESCRIPTION BIPAP 1 liter bleed in 12/5 cm. RR 14 Replacement machine with heated humidity. CPAP mask and supplies. Use nightly. Problem List As Of Date 03/14/2024 Noted Resolved Essential hypertension [I10] 12/15/2014 Cervical polyp [N84.1] 12/15/2014 11/18/2019 Hyperlipidemia [E78.5] 12/15/2014 Osteoarthritis of both knees [M17.0] 12/15/2014 IRIS treated with BiPAP [G47.33] 12/15/2014 Class 3 severe obesity due to excess calories w*06/02/2017 Cervical myopathy [G72.9] 01/30/2018 Cervical spondylosis with myelopathy [M47.12] 01/30/2018 History of cervical polypectomy [Z98.890, Z87.4*11/18/2019 Paraparesis (HCC) [G82.20] Thyroid nodule [E04.1] 11/19/2020 Ventricular tachycardia, non-sustained (HCC) [I*11/19/2020 Spondylosis with myelopathy, 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*11/21/2020 Paronychia of right middle finger [L03.011] 11/23/2020 Fusion of spine of 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43.24] 11/25/2020 Acute postoperative pain [G89.18] 11/25/2020 Pseudogout of right knee [M11.261] 11/26/2020 Abnormal urinalysis [R82.90] 12/01/2020 Rash and nonspecific skin eruption on right thi*12/03/2020 Major depressive disorder, recurrent, mild (HCC*09/02/2022 Chronic obstructive pulmonary disease (HCC) [J4*11/09/2022 Encounter Status:Closed by MAGDA RODRIGUEZ on 03/14/24 [facility] 01-16-2024 Note HNO ID: [id number] Author: MESSI DE ANDA MA Service: ? Author Type: Guest Attendant Type: Progress Notes Filed: 01/16/2024 14:56 Note Text: POPULATION HEALTH NAVIGATION OUTREACH Action/FYI Patient currently in rehab, will schedule a follow up when she gets out. Aware PCP booked out to October for AWV. Had flu shot. Reason for Outreach Care Gap/HCC or Scheduling Wellness Visits Care Gaps due: Medicare Annual Wellness Visit Controlling Blood Pressure Flu Vaccine Patient Contacted: Spoke to patient/parent/or legal guardian Patient identified by name and : Yes Care Gap/HCC/Scheduling Wellness actions taken: Patient declined: Patient will contact office directly to schedule Navigation Signature: Messi De Anda MA January 16, 2024 2:50 PM [facility] 01-16-2024 History of Presen t illness Narrative POPULATION HEALTH NAVIGATION OUTREACH Action/FYI Patient currently in rehab, will schedule a follow up when she gets out. Aware PCP booked out to October for AWV. Had flu shot. Reason for Outreach Care Gap/HCC or Scheduling Wellness Visits Care Gaps due: Medicare Annual Wellness Visit Controlling Blood Pressure Flu Vaccine Patient Contacted: Spoke to patient/parent/or legal guardian Patient identified by name and : Yes Care Gap/HCC/Scheduling Wellness actions taken: Patient declined: Patient will contact office directly to schedule Navigation Signature: Messi De Anda MA January 16, 2024 2:50 PM documented in this encounter [facility] 01-16-2024 Note Patient Outreach (NE TNAV) SONIA KARIMI ([id number]) 1955 F Date Time Provider Department 01/16/24 MESSI DE ANDA During your visit today, we recorded the following information about you: Mary Messi, JONATHAN 01/16/2024 2:56 PM Signed POPULATION HEALTH NAVIGATION OUTREACH Action/FYI Patient currently in rehab, will schedule a follow up when she gets out. Aware PCP booked out to October for AWV. Had flu shot. Reason for Outreach Care Gap/HCC or Scheduling Wellness Visits Care Gaps due: Medicare Annual Wellness Visit Controlling Blood Pressure Flu Vaccine Patient Contacted: Spoke to patient/parent/or legal guardian Patient identified by name and : Yes Care Gap/HCC/Scheduling Wellness actions taken: Patient declined: Patient will contact office directly to schedule Navigation Signature: Messi WeaverJONATHAN chambers January 16, 2024 2:50 PM Allergies As of Date: 01/16/2024 Noted Allergy Reaction ATIVAN (LORAZEPAM) 03/26/2012 4 - Hives NEOMYCIN 02/02/2018 9 - Itching Comments: Hives, itching VALIUM (DIAZEPAM) 11/28/2020 5 - Intolerance Comments: somnolence Date Reviewed: 05/11/2023 Reviewed by: Poppy Brunner LPN - Fully Assessed Reason for Visit: Population Health Navigation Outreach [3910] Cmt: O QAE Surge list 2023 Prescriptions as of 01/16/2024 - predniSONE (DELTASONE) 10 mg tablet Take 40 mg x 5 days, 20 mg x 5 days, 10 mg x 5 days. Take with breakfast - docusate sodium (COLACE) 100 mg capsule Take 1 capsule by mouth two times a day as needed for constipation. Take this to avoid constipation with oxycodone use - diclofenac XR (VOLTAREN-XR) 100 mg Tb24 TAKE 1 TABLET BY MOUTH DAILY WITH FOOD NEEDED FOR PAIN - gabapentin (NEURONTIN) 300 mg capsule Take 1 capsule by mouth two times a day for 180 days. - Miscellaneous Medical [employer] Power Wheelchair - spironolactone (ALDACTONE) 25 mg tablet Take 1 tablet by mouth once daily. - amLODIPine (NORVASC) 10 mg tablet Take 1 tablet by mouth once daily. - atorvastatin (LIPITOR) 10 mg tablet Take 1 tablet by mouth once daily. - diclofenac (VOLTAREN) 1 % topical gel Apply 4 g to affected area four times daily. FOR EXTERNAL USE ONLY APPLY TO: right knee Use provided dosing card to measure the ordered dose. - methocarbamol (ROBAXIN) 750 mg tablet Take 1 tablet by mouth every 8 hours as needed (Muscle spasms). CAUTION: May cause drowsiness. - sertraline (ZOLOFT) 100 mg tablet Take 1 tablet by mouth once daily. - valsartan (DIOVAN) 160 mg tablet Take 1 tablet by mouth once daily. - valsartan (DIOVAN) 80 mg tablet Take one every PM (in addition to 160 mg. Daily in AM). - cloNIDine HCl (CATAPRES) 0.1 mg tablet Take 1 tablet by mouth twice daily. - acetaminophen (TYLENOL) 500 mg tablet Take 500 mg by mouth twice daily as needed for pain. - cholecalciferol (VITAMIN D3) 50 mcg (2,000 unit) tablet Take 2,000 Units by mouth once daily. - COMPOUNDED PRESCRIPTION BIPAP 1 liter bleed in 12/5 cm. RR 14 Replacement machine with heated humidity. CPAP mask and supplies. Use nightly. Problem List As Of Date 01/16/2024 Noted Resolved Essential hypertension [I10] 12/15/2014 Cervical polyp [N84.1] 12/15/2014 11/18/2019 Hyperlipidemia [E78.5] 12/15/2014 Osteoarthritis of both knees [M17.0] 12/15/2014 IRIS treated with BiPAP [G47.33] 12/15/2014 Class 3 severe obesity due to excess calories w*06/02/2017 Cervical myopathy [G72.9] 01/30/2018 Cervical spondylosis with myelopathy [M47.12] 01/30/2018 History of cervical polypectomy [Z98.890, Z87.4*11/18/2019 Paraparesis (HCC) [G82.20] Thyroid nodule [E04.1] 11/19/2020 Ventricular tachycardia, non-sustained (HCC) [I*11/19/2020 Spondylosis with myelopathy, 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*11/21/2020 Paronychia of right middle finger [L03.011] 11/23/2020 Fusion of spine of 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43.24] 11/25/2020 Acute postoperative pain [G89.18] 11/25/2020 Pseudogout of right knee [M11.261] 11/26/2020 Abnormal urinalysis [R82.90] 12/01/2020 Rash and nonspecific skin eruption on right thi*12/03/2020 Major depressive disorder, recurrent, mild (HCC*09/02/2022 Chronic obstructive pulmonary disease (HCC) [J4*11/09/2022 Encounter Status:Closed by MESSI DE ANDA on 01/16/24 [facility] 07-17-2023 Note [facility] 06-30-2023 Note [facility] 06-28-2023 Note [facility] 06-09-2023 Note [facility] 06-09-2023 Note [facility] 06-09-2023 Progress note Note Date/Time June 09, 2023 9:28am [facility] Medical Records Department [address] [place] [address] Progress Note - Orthopedic 06/09/23925 MR#: [id number] Acct: [id number] Name: SONIA KARIMI Rep #:[id number] : 1955 67 From: Kwasi Cheatham MD PCP: Dr. Melissa Muhammad MD Status:AD M IN Location: MS3 [id number] Subjective Subjective Postop day 1 status post left L4-5 laminotomy discectomy. Patient seen in bed in reclined position without any significant pain. Pain is well-controlled. She said that preoperative lower extremity pain has resolved. She still has baseline weakness in both lower extremities and is wheelchair-bound for the last 2 years due to cervical thoracic myelopathy's. Objective Data Objective Data Vital Signs: Vital Signs Temp Pulse Resp BP Pulse Ox O2 Del Method O2 Flow Rate 98.3 F 85 18 128/95 H 95 Room Air 2 06/09/23 07:31 06/09/23 07:31 06/09/23 07:31 06/09/23 07:31 06/09/23 07:31 06/09/23 07:31 06/05/23 10:37 Oxygen Flow Rate (L/min) 2 Oxygen Delivery Method Room Air Weight: 263 lb 7.238 oz Body Mass Index (BMI) 42.3 Intake & Output: Intake and Output for Last 24 Hours 06/07/23 06/08/23 06/09/23 23:59 23:59 23:59 Intake Total 940 / 940 474 / 474 115 / 115 Output Total 1600 / 2100 1150 / 1550 800 / 800 Balance -660 / -1160 -676 / -1076 -685 / -685 Lab / Micro Data 06/09/23 05:35 06/09/23 05:35 Labs: Laboratory Results - last 24 hr 06/09/23 05:35: WBC 26.2 H, RBC 4.46, Hgb 12.3, Hct 37.5, MCV 84.1, MCH 27.6, MCHC 32.8, RDW Std Deviation 41.1, RDW Coeff of Laila 13.4, Plt Count 506 H, MPV 8.9, Immature Gran % (Auto) 0.800, Neut % (Auto) 91.8 H, Lymph % (Auto) 2.7 L, Lenoir % (Auto) 4.6, Eos % (Auto) 0.0, Baso % (Auto) 0.1, Absolute Neuts (auto) 24.0 H, Absolute Lymphs (auto) 0.71 L, Nucleated RBC % 0, Differential Comment SCANNED, Sodium 131 L, Potassium 5.0, Chloride 99, Carbon Dioxide 26.0, Anion Gap 6, BUN 32 H, Creatinine 0.80, Estim Creat Clear Calc 87.36, Est GFR (MDRD) Af Amer 91, Est GFR (MDRD) Non-Af 75, BUN/Creatinine Ratio 39.9 H, Glucose 149 H, Calcium 8.9, Total Bilirubin 0.30, AST 22, ALT 26, Alkaline Phosphatase 124 H,Total Protein 6.8, Albumin 3.0 L, Globulin 3.8, Albumin/Globulin Ratio 0.8 L Radiography Diagnostic Testing: Radiology Impression Spine X-Ray 06/08/23 06:30 IMPRESSION: Intraoperative imaging provided for L4-5 decompression. Electronically Signed: Francisco Zavaleta MD at 15:38 EDT , Physical Exam Narrative Examination the back shows dressing?CDI. Neurologically stable compared to preop. Patient has known sores in the left buttock region. Assessment & Plan Assessment/Plan (1) Status post lumbar discectomy: PLAN: Plan Postop day 1 status post discectomy. PT OT mobilization. Weightbearing as tolerated. Bed to chair and back multiple times a day if possible. Discharge to rehab when medically appropriate, okay from my perspective. Will follow-up in clinic in 2 weeks. Patient was in agreement. 06/09/23 0928 <Electronically signed by Kwasi Cheatham MD> Cosigner Signature (if applicable): CC: ~ Signed [facility] Work Phone: 1(342) 210-698904-25-2024 Progress note Author Lamont Arzate [facility] June 08, 2023 2:29pm Note Date/Time June 08, 2023 2:1 2pm [facility] Medical Records Department [address] [place] [address] Progress Note - Hospitalist 06/08/23 1411 MR#: [id number] Acct: [id number] Name: SONIA KARIMI Rep #:[id number] : 1955 67 From: Lamont Hawkins PCP: Dr. Melissa Muhammad MD Status:AD M IN [place] [facility] [id number] Reason for Visit Reason for Visit: Diagnoses Spinal stenosis, lumbar region without neurogenic claudication (06/06/23) Spinal stenosis, lumbar region with neurogenic claudication (06/06/23) Radiculopathy, lumbar region (06/06/23) Dorsalgia, unspecified (06/06/23) Other specified postprocedural states (06/06/23) Objective Data Objective Data Vital Signs: Vital Signs Temp Pulse Resp BP Pulse Ox O2 Del Method O2 Flow Rate 97.8 F 85 16 143/66 H 94 Room Air 2 06/08/23 13:50 06/08/23 13:50 06/08/23 13:50 06/08/23 13:50 06/08/23 13:50 06/08/23 13:50 06/05/23 10:37 Oxygen Flow Rate (L/min) 2 Oxygen Delivery Method Room Air Weight: 265 lb 3.457 oz Body Mass Index (BMI) 42.7 Intake & Output: Intake and Output for Last 24 Hours 06/06/23 06/07/23 06/08/23 23:59 23:59 23:59 Intake Total 250 / 250 940 / 940 110 / 110 Output Total 1000 / 1000 1600 / 2100 1150 / 1150 Balance -750 / -750 -660 / -1160 -1040 / -1040 Lab / Micro Data 06/08/23 05:17 06/08/23 05:17 Labs: Laboratory Results - last 24 hr 06/08/23 05:17: WBC 18.3 H, RBC 4.83, Hgb 13.3, Hct 40.8, MCV 84.5, MCH 27.5, MCHC 32.6, RDW Std Deviation 41.7, RDW Coeff of Laila 13.6, Plt Count 551 H, MPV 8.9, Immature Gran % (Auto) 0.700, Neut % (Auto) 90.3 H, Lymph % (Auto) 5.8 L, Lenoir % (Auto) 3.0, Eos % (Auto) 0.1, Baso % (Auto) 0.1, Absolute Neuts (auto) 16.5 H, Absolute Lymphs (auto) 1.05, Nucleated RBC % 0, Sodium 130 L, Potassium 4.9, Chloride 99, Carbon Dioxide 27.0, Anion Gap 4 L, BUN 27 H, Creatinine 0.71,Estim Creat Clear Calc 87.70, Est GFR (MDRD) Af Amer 106, Est GFR (MDRD) Non-Af 87, BUN/Creatinine Ratio 38.2 H, Glucose 160 H, Calcium 9.7, Total Bilirubin 0.30, AST 19, ALT 44, Alkaline Phosphatase 131 H, Total Protein 7.2, Albumin 3.2, Globulin 4.0, Albumin/Globulin Ratio 0.8 L Physical Exam Narrative Seen and examined. Patient returned from the OR, had surgery in the morning. Patient is sitting upright on the chair. Her pain is controlled. Discussed with the surgeon Dr. Cheatham. Admitted with back pain, sciatic in nature with radiation to right buttock, backof thigh, sciatica in nature past 4 weeks. Had cervical surgery and thoracic surgery in [facility]. Physical exam General: Alert, Oriented x3, Cooperative HEENT: Atraumatic, PERRLA, EOMI, Normocephalic Oral: Oral mucosa moist no Gingival or Mucosal Lesions/ Ulcerations Neck: Supple, No JVD, Negative Carotid Bruits Chest wall/Lungs: Air entry diminished in bilateral lung bases. No crepitation/rhonchi Cardiovascular: Irregular rhythm, Normal S1, Normal S2, systolic murmur Abdomen: Bowel Sounds Present, Soft, Non Tender, Non-Distended : No Atkins catheter. No dysuria. No renal angle tenderness. No suprapubic tenderness. Extremities: No edema, Capillary Refill Less than 3 Seconds Skin: Surgical dressing on the lumbar back is dry. Mild tenderness around the operative region. Musculoskeletal: SLR positive of right LE at 30 degree and left leg at 60 degree. Muscle strength 4/5 at knees and hips likely due to pain and spasm Neurological: Cranial nerves II-XII grossly intact, DTR 2+/4. L4-5 L5-S1 radiculopathy Psych/Mental Status: Flat affect Assessment & Plan Assessment/Plan (1) Intractable back pain: PLAN: Plan The patient is a 67 y/o F came to ED with low back pain and right lower extremity pain for about 1 month. History of 2 back surgeries in the past. Patient in wheelchair. She also has disequilibrium/loss of balance and near fall situation, guarded weight between the wall of the toilet on day of admission #1. Adult FTT secondary to Acute Intractable Back Pain lumbar spine with right lower extremity radiculopathy with adult failure to thrive, debility, inability to ambulate: Patient being admitted on [facility] floor. PT and OT. Pain control,gabapentin, bowel regimen. Patient not able to lay flat for MRI lumbar spine, on the weekend but had MRI today in the morning 06/05: MRI finding discussed with the patient. Has severe central canal stenosisat L4-L5 and L5-S1 and large amount of extruded disc material. Pain seems better than yesterday. Spine surgeon Dr. Kwasi Cheatham called to see the patientin afternoon. Requested pain management consult Dr. Panchal for evaluation for epidural injection. On multiple opioid and steroid medications. Medrol oral Dosepak changed to dexamethasone. Tizanidine and oxycodone. 06/06: Patient evaluated by both spine surgeon Dr. Kwasi Cheatham and Dr. Wheatley. Scheduled for surgery tomorrow. Preop EKG and labs ordered. 06/07: Patient had L4-5 left-sided laminotomy, discectomy for large L4-5 central disc herniation. Clinically patient feels much improvement in pain after surgery. Surgical dressing is dry.Patient has leukocytosis from being on a steroid. Hyperglycemia from steroid.Patient does not have history of DM #2. Chronic normocytic anemia: Admission hemoglobin 11.1, MCV 86.4, baseline hemoglobin similar range, 06/04/23 Hgb 11, MCV 87.5. #3. Hypertension: Continue home regimen including valsartan, spironolactone, amlodipine, clonidine but clarifying, PRN hydralazine. #4. Hyperlipidemia: continue patient on statin therapy. #5. Anxiety and depression: We will continue patient home sertraline and hydroxyzine home regimen. #6. PAF: From current list does not appear to be on rate or rhythm agent, also does not appear to be on any anticoagulant therapy. Previously had been on bothXarelto and metoprolol 25 mg p.o. twice daily but does not appear to be taking this currently. If issues arise may restart. #7. COPD: Not on any chronic regimen, will place on ATC budesonide therapy, PRNalbuterol, HOB, IS parameters. #8. Morbid Obesity: Weight loss and lifestyle changes encouraged. #9. Former alcohol abuse: Patient sober for 45 years, encourage continued complete sobriety. #10. Former tobacco use: Encourage continued tobacco cessation. #11. IRIS: BiPAP nightly. #12. DVT prophylaxis: Lovenox Accu-Chek before meals and at bedtime insulin coverage Humalog sliding scale. Held and will be hold for further 72 hours after surgery and next dose of 06/11/2023 at 10 AM. Bilateral SCDs #13. CODE status: Full code. Clinical Impression(s) from Imaging Studies Lumbar Spine X-Ray 06/02/23 18:35 IMPRESSION: No evidence of lumbar spinal fracture or spondylolisthesis. Severe multilevel degenerative disc disease and spondylosis. Lumbar Spine MRI 06/05/23 09:30 IMPRESSION: 1. Multilevel moderate to severe degenerative changes, as described above. 2. Severe central canal stenosis at L4-L5 and L5-S1 3. Large amount of extruded disc material originating from L4-L5 traveling down to the L5-S1 space Charges/Coding Visit Charges Inpatient E&M: 75691 Subs Hosp L2 06/08/23 4931 <Electronically signed by Lamont Arzate MD> Cosigner Signature (if applicable): CC: ~ Signed [facility] Work Phone: 1(484) 302-536204-25-2024 Procedure [facility] 06-08-2023 Progress note Author Kwasi Cheatham [facility] June 08, 2023 10:21am Note Date/Time June 08, 2023 10: 21am [facility] Medical Records Department [address] [place] [address] Progress Note - Orthopedic 06/08/23 1017 MR#: [id number] Acct: [id number] Name: SONIA KARIMI Rep #:[id number] : 1955 67 From: Kwasi Cheatham MD PCP: Dr. Melissa Muhammad MD Status:AD M IN Location: TN3 [id number] Subjective Subjective Seen in PACU. Pain well-controlled. Able to actively move both toes and legs. Objective Data Objective Data Vital Signs: Vital Signs Temp Pulse Resp BP Pulse Ox O2 Del Method O2 Flow Rate 97.8 F 88 17 155/87 H 99 Room Air 2 06/08/23 06:09 06/08/23 06:09 06/08/23 06:09 06/08/23 06:09 06/08/23 06:09 06/08/23 06:09 06/05/23 10:37 Oxygen Flow Rate (L/min) 2 Oxygen Delivery Method Room Air Weight: 265 lb 3.457 oz Body Mass Index (BMI) 42.7 Intake & Output: Intake and Output for Last 24 Hours 06/06/23 06/07/23 06/08/23 23:59 23:59 23:59 Intake Total 250 / 250 940 / 940 110 / 110 Output Total 1000 / 1000 1600 / 2100 1150 / 1150 Balance -750 / -750 -660 / -1160 -1040 / -1040 Lab / Micro Data 06/08/23 05:17 06/08/23 05:17 Labs: Laboratory Results - last 24 hr 06/08/23 05:17: WBC 18.3 H, RBC 4.83, Hgb 13.3, Hct 40.8, MCV 84.5, MCH 27.5, MCHC 32.6, RDW Std Deviation 41.7, RDW Coeff of Laila 13.6, Plt Count 551 H, MPV 8.9, Immature Gran % (Auto) 0.700, Neut % (Auto) 90.3 H, Lymph % (Auto) 5.8 L, Len[place] % (Auto) 3.0, Eos % (Auto) 0.1, Baso % (Auto) 0.1, Absolute Neuts (auto) 16.5 H, Absolute Lymphs (auto) 1.05, Nucleated RBC % 0, Sodium 130 L, Potassium 4.9, Chloride 99, Carbon Dioxide 27.0, Anion Gap 4 L, BUN 27 H, Creatinine 0.71,Estim Creat Clear Calc 87.70, Est GFR (MDRD) Af Amer 106, Est GFR (MDRD) Non-Af 87, BUN/Creatinine Ratio 38.2 H, Glucose 160 H, Calcium 9.7, Total Bilirubin 0.30, AST 19, ALT 44, Alkaline Phosphatase 131 H, Total Protein 7.2, Albumin 3.2, Globulin 4.0, Albumin/Globulin Ratio 0.8 L Physical Exam Narrative Dressing CDI. 2 pressure sores in the left buttock covered with foam dressing. Neurologically stable compared to baseline. Assessment & Plan Assessment/Plan (1) Status post lumbar discectomy: PLAN: Plan Postop day 0 status post left L4-5 laminotomy discectomy. Ancef x 2 doses, 3 g dose for her weight. No DVT chemoprophylaxis for 72 hours. SCDs for mechanical DVT prophylaxis. PT OT mobilization as much as tolerated. Would encourage transfer from bed to chair and back multiple times a day. Active and passive range of motion of all extremity joints. No bending lifting twisting in the lower back. Okay to transfer to rehab when medically stable. Will follow-up in clinic in 2 weeks. 06/08/23 1021 <Electronically signed by Kwasi Cheatham MD> Cosigner Signature (if applicable): CC: ~ Signed [facility] Work Phone: 1(603) 835-361004-25-2024 History and physical note Author Kwasi Cheatham [facility] June 08, 2023 7:27am Note Date/Time June 08, 2023 7:2 7am [facility] Medical Records Department [address] [place] [address] [place] [address] History & Physical Exam 06/08/23 0726 MR#: [id number] Acct: [id number] Name: SONIA KARIMI Rep #:[id number] : 1955 67 From: Kwasi Cheatham MD PCP: Dr. Melissa Muhammad MD Status:AD M IN Location: MS3 [id number] History and Physical MR#: [id number] Acct: [id number] Name: SONIA KARIMI Rep #: [id number] : 1955 67 From: Kwasi Cheatham MD PCP: Dr. Melissa Muhammad MD Status: ADM IN Location: MS3 [id number] HPI Consult Data Date of Consult: 06/06/23 HPI Narrative HPI Narrative: SONIA KARIMI, is a 67 F who has been in inpatient since 06/02/2023. I was consulted today after the MRI lumbar spine revealed a large disc herniation starting at L4-5 with migration towards L5-S1. I saw the patient in 308. She was comfortable in bed. She reports severe low back pain with right worse than left buttock pain with radiation of pain into the right lower extremity. She has numbness in the left foot worse than the right. She has baseline cervical and thoracic fusions which were likely done for myelopathy. She has been wheelchair dependent for the last 2 years. She uses a motorized wheelchair. 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 She says that about 5 weeks ago on May 01 she started having severe worsening pain and she is no longer able to do transfers from the wheelchair to commode that she had been able to do previously. Overallshe feels pain with any movement of the right lower extremity. She denies any incontinence or numbness in the perianal area. She was initially treated by ER and PCP in late April and early May with 7-day course of steroids but this continued to worsen. She has been unable to transfer with the help of physical therapy since being admitted here in the hospital. Her thoracic surgery is likely a T9-11 posterior decompression and fusion which was done 2 years ago, and she has also had cervical spine surgery which she says was 4 years ago. HerBMI is 42. She is nondiabetic. She denies taking any blood thinners at baseline. [facility] Medical History (Updated 06/02/23 @ 20:[address] Monika Mendoza MD) Anxiety and depression Atrial fibrillation COPD (chronic obstructive pulmonary disease) Former smoker Herpes zoster History of alcohol abuse Hyperlipidemia Hypertension Morbid obesity Neuropathic pain IRIS treated with BiPAP Osteoarthritis of knees, bilateral Pseudogout of right knee Thoracic spinal stenosis Thyroid nodule Vitamin D deficiency Home Medications atorvastatin 10 mg tablet 10 mg PO DAILY@2200 Cholesterol 12/08/20 [History Last Taken 06/01/23] cholecalciferol (vitamin D3) 25 mcg (1,000 unit) tablet (Vitamin D3) 2,000 unit PO DAILY Supplement 12/08/20 [History Last Taken 06/01/23] clonidine HCl 0.1 mg tablet 0.1 mg PO BID BP 12/08/20 [History Last Taken 06/01/23] diclofenac sodium 1 % topical gel (Voltaren Arthritis Pain) 1 ea topical Q6H Pain 12/08/20 [History Last Taken 06/01/23] sertraline 100 mg tablet 100 mg PO DAILY Mood 12/08/20 [History Last Taken 06/01/23] gabapentin 300 mg capsule 300 mg PO BID Nerve Pain 30 days #60 caps 01/01/21 [Rx Last Taken 06/01/23] methocarbamol 750 mg tablet 750 mg PO Q8H pain 30 days #90 tabs 01/01/21 [Rx Last Taken 06/01/23] potassium chloride 20 mEq tablet,extended release(part/cryst) (Klor-Con M) 20 meq PO DAILYCM 30 days #30 tabs 01/01/21 [Rx Last Taken 06/01/23] hydroxyzine pamoate 25 mg capsule 25 mg PO QHS 30 days #30 caps 01/11/21 [Rx Last Taken 06/01/23] orphenadrine citrate 100 mg tablet,extended release 100 mg PO BID PRN muscle spasm #10 tabs 05/02/23 [Rx Last Taken 06/01/23] acetaminophen 500 mg tablet 1,000 mg PO Q6H PRN Pain Score 1-10 06/02/23 [History Last Taken 06/01/23] amlodipine 10 mg tablet 10 mg PO DAILY 06/02/23 [History Last Taken 06/01/23] diclofenac sodium 100 mg tablet,extended release 24 hr 100 mg PO DAILY 06/02/23 [History Last Taken 06/01/23] docusate sodium 100 mg capsule 100 mg PO DAILY 06/02/23 [History Last Taken 0 06/01/23] ketoconazole 2 % topical cream 1 applic topical DAILY 06/02/23 [History Last Taken 06/01/23] oxycodone-acetaminophen 5 mg-325 mg tablet 1 tab PO 4X/DAY PRN PRN pain 06/02/23 [History Last Taken 06/02/23] prednisone 10 mg tablet 10 mg PO DAILY STERIOD TAPER 06/02/23 [History Last Taken 06/01/23] spironolactone 25 mg tablet 25 mg PO DAILY 06/02/23 [History Last Taken 06/01/23] valsartan 160 mg tablet 160 mg PO DAILY 06/02/23 [History Last Taken 06/01/23] valsartan 80 mg tablet 80 mg PO DAILY 06/02/23 [History Last Taken 06/01/23] Allergy/AdvReac Type Severity Reaction Status Date / Time hydrocodone [From Vicodin] Allergy Anaphylaxis Verified 06/02/23 16:42 lorazepam [From Ativan] Allergy Hives Verified 06/02/23 16:42 neomycin Allergy Hives Verified 06/02/23 16:42 Family History (Updated 06/02/23 @ 20:[address] Monika Mendoza MD) Mother No problems noted. Father Leukemia Diabetes Surgical History History of adenoidectomy History of back surgery History of back surgery Hx of tonsillectomy Social History (Updated 06/02/23 @ 20:[address] Monika Mendoza MD) household members: family Smoking Status: Former smoker how long ago did patient quit smoking: Quit 45 yrs prior, smoked 1 ppd startingage 19 until quit. alcohol intake: former details: Drank heavily prior, sober x 45 years. substance use type: does not use Vital Signs Vital Signs Vital Signs: 06/04/2414:54 06/05/2419:23 06/05/2419:23 Temperature 98.0 F 99.1 F Temperature Source Temporal Oral Pulse Rate 82 88 Pulse Strength Respiratory Rate 18 16 Respiratory Effort Normal Respiratory Depth Normal Respiratory Pattern Normal Blood Pressure 138/92 H 152/73 H Blood Pressure Mean 107 99 Blood Pressure Source Monitor Blood Pressure Position Semi-Fowlers Blood Pressure Location Left Forearm Pulse Ox 95 96 Oxygen Delivery Method Room Air Room Air Room Air 06/05/2419:23 06/05/2419:23 06/06/2399:37 Temperature 99.1 F 98.2 F Temperature Source Oral Oral Pulse Rate 88 82 Pulse Strength Normal (2+) Respiratory Rate 16 16 Respiratory Effort Respiratory Depth Respiratory Pattern Blood Pressure 152/73 H 143/83 H Blood Pressure Mean 99 103 Blood Pressure Source Monitor Blood Pressure Position Semi-Fowlers Blood Pressure Location Left Forearm Pulse Ox 96 94 Oxygen Delivery Method Room Air Room Air 06/06/2399:37 06/05/2401:23 06/05/2406:31 Temperature 98.2 F Temperature Source Oral Pulse Rate 82 Pulse Strength Respiratory Rate 16 Respiratory Effort Normal Respiratory Depth Normal Respiratory Pattern Normal Blood Pressure 143/83 H Blood Pressure Mean 103 Blood Pressure Source Monitor Blood Pressure Position Semi-Fowlers Blood Pressure Location Left Forearm Pulse Ox 94 97 Oxygen Delivery Method Room Air Room Air Room Air 06/05/2406:54 06/05/2406:55 06/05/2406:55 Temperature 97 F L Temperature Source Temporal Pulse Rate 83 Pulse Strength Normal (2+) Respiratory Rate 18 Respiratory Effort Normal Respiratory Depth Normal Respiratory Pattern Normal Blood Pressure 136/78 H Blood Pressure Mean 97 Blood Pressure Source Monitor Blood Pressure Position Semi-Fowlers Blood Pressure Location Left Forearm Pulse Ox 94 Oxygen Delivery Method Room Air Room Air 06/05/2413:30 06/05/2413:30 Temperature 97.3 F L Temperature Source Temporal Pulse Rate 96 Pulse Strength Respiratory Rate 18 Respiratory Effort Normal Respiratory Depth Normal Respiratory Pattern Normal Blood Pressure 145/75 H Blood Pressure Mean 98 Blood Pressure Source Monitor Blood Pressure Position Semi-Fowlers Blood Pressure Location Left Arm Pulse Ox 94 Oxygen Delivery Method Room Air Weight Weight: 265 lb 3.457 oz Body Mass Index (BMI) 42.6 Physical Exam Narrative Examination of the back shows midline and bilateral paraspinal tenderness in lower lumbar spine. Neurologic evaluation of lower extremity shows baseline weakness in both lower extremities. Hip flexion is grade 3 bilaterally, associated with severe pain on the right. Quadriceps is 4 - bilaterally. Ankledorsiflexion bilaterally is 4 -. EHL is grade 4 - on the left and grade 4 on the right. Plantarflexion is grade 4 bilaterally. Lab / Micro Data 06/05/23 06:05 06/05/23 06:05 Assessment & Plan Assessment/Plan (1) Intractable back pain: PLAN: Plan I reviewed her MRI of the lumbar spine done yesterday. This shows multilevel lumbar severe disc degeneration. Her x-rays show vacuum phenomenon at multiple upper lumbar levels. She has had T9-11 posterior decompression and fusion. L4-5 maintains good disc height on x-rays. MRI shows large central disc extrusion at L4-5 with inferior migration going behind the L5 vertebral body almost reaching L5-S1 disc. This is slightly larger on the left than the right but is predominantly central. This causes severe cauda equina compression. I explained to her the imaging findings in detail. She has a large extruded disc which is causing severe cauda equina compression at L4-5 migrating towards L5-S1. She has severe decline in her function over the last 5 weeks because of this. She has baseline thoracic and cervical myelopathy from which she has somebaseline weakness in all 4 extremities. She is wheelchair-bound. I explained to her options of treatment which include epidural injections versus surgical microdiscectomy. Patient has a severe decline in her baseline function over thelast 5 weeks which is not improving with time despite oral steroids and physicaltherapy. The volume of the disc herniation with cauda equina compression concerns me with possibility of cauda equina syndrome with an attempted injection. I explained to her that surgical microdiscectomy would likely improve the tension on the nerves and the compression and the radicular pain. It might not eliminate her axial low back pain or her baseline weakness in both lower extremities. I recommend L4-5 laminotomy and discectomy. All risk benefits and alternatives were discussed. The risks include but are not limitedto infection, bleeding, injury to nerves and vessels, hematoma formation, need for further surgery, need for fusion, persistent pain, nerve injury, foot drop, DVT, pulmonary embolism, iatrogenic instability, pneumonia, atelectasis, cardiopulmonary event, recurrent disc herniation. Patient understands and agrees to proceed with surgery. Patient will be scheduled during this admissiondepending on or availability, likely morning. Patient was in agreement. All questions were answered. Consent was signed. 06/08/23726 <Electronically signed by Kwasi Cheatham MD> Cosigner Signature (if applicable): CC: Dr. Kwasi Cheatham MD; Dr. Melissa Muhammad MD~ Signed [facility] Work Phone: 1(339) 436-860304-25-2024 [facility]04-24-2024 Progress note Author Kwasi Cheatham [facility] June 07, 2023 4:23pm Note Date/Time June 07, 2023 4:2 3pm [facility] Medical Records Department [address] [place] [address] Progress Note - Orthopedic 06/07/23 1620 MR#: [id number] Acct: [id number] Name: SONIA KARIMI Rep #:[id number] : 1955 67 From: Kwsai Cheatham MD PCP: Dr. Melissa Muhammad MD Status:AD M IN Location: MS3 DO277-1 Subjective Subjective Saw patient today. Spoke with patient's niece Juanita. Discussed the surgery again and the restrictions after. Answered all questions. Continues to have significant low back pain with right lower extremity worse than left radiation with weakness which is worse on the left than the right. She is avoiding any movement around her back due to severe pain. She mentions that there is a sore in the right buttock which is being dressed. She says thatthis happened due to an abrasion from her wheelchair last week. She says this is fairly superficial Objective Data Objective Data Vital Signs: Vital Signs Temp Pulse Resp BP Pulse Ox O2 Del Method O2 Flow Rate 97.9 F 87 14 122/88 H 96 Room Air 2 06/07/23 13:24 06/07/23 13:24 06/07/23 13:24 06/07/23 13:24 06/07/23 13:24 06/07/23 13:24 06/05/23 10:37 Oxygen Flow Rate (L/min) 2 Oxygen Delivery Method Room Air Weight: 265 lb 3.457 oz Body Mass Index (BMI) 42.6 Intake & Output: Intake and Output for Last 24 Hours 06/05/23 06/06/23 06/07/23 23:59 23:59 23:59 Intake Total 850 / 850 250 / 250 940 / 940 Output Total 4250 / 4250 1000 / 1000 1300 / 1300 Balance -3400 / -3400 -750 / -750 -360 / -360 Lab / Micro Data 06/05/23 06:05 06/05/23 06:05 Physical Exam Narrative Examination of the back shows midline and bilateral paraspinal tenderness in lower lumbar spine. Neurologic evaluation of lower extremity shows baseline weakness in both lower extremities. Hip flexion is grade 3 bilaterally, associated with severe pain on the right. Quadriceps is 4 - bilaterally. Ankledorsiflexion bilaterally is 4 -. EHL is grade 4 - on the left and grade 4 on the right. Plantarflexion is grade 4 bilaterally. Assessment & Plan Assessment/Plan (1) Lumbar radiculopathy, acute: (2) Stenosis, spinal, lumbar: QUALIFIERS: Neurogenic claudication status: with neurogenic claudication Qualified Code(s): M48.062 - Spinal stenosis, lumbar region with neurogenic claudication PLAN: Plan I again reviewed her imaging findings with her. I also looked at her back and there is dressed sore in the right buttock region. No obvious discharge. I went over the surgery again. Answered all questions. Patient will be n.p.o. tonight after midnight for surgery tomorrow a.m. Patient was in agreement. Charges/Coding Visit Charges Inpatient E&M: 62454 Subs Hosp L1 06/07/23 3075 <Electronically signed by Kwasi Cheatham MD> Cosigner Signature (if applicable): CC: ~ Signed [facility] Work Phone: 1(767) 799-973104-24-2024 Progress note Author Lamont Arzate [facility] June 07, 2023 3:50pm Note Date/Time June 07, 2023 3:5 0pm [facility] Medical Records Department [address] [place] [address] Progress Note - Hospitalist 06/07/23 1546 MR#: [id number] Acct: [id number] Name: SONIA KARIMI Rep #:[id number] : 1955 67 From: Lamont Hawkins PCP: Dr. Melissa Muhammad MD Status:AD M IN Location: TN3 KR615-4 Reason for Visit Reason for Visit: Diagnoses Spinal stenosis, lumbar region without neurogenic claudication (06/06/23) Radiculopathy, lumbar region (06/06/23) Dorsalgia, unspecified (06/06/23) Objective Data Objective Data Vital Signs: Vital Signs Temp Pulse Resp BP Pulse Ox O2 Del Method O2 Flow Rate 97.9 F 87 14 122/88 H 96 Room Air 2 06/07/23 13:24 06/07/23 13:24 06/07/23 13:24 06/07/23 13:24 06/07/23 13:24 06/07/23 13:24 06/05/23 10:37 Oxygen Flow Rate (L/min) 2 Oxygen Delivery Method Room Air Weight: 265 lb 3.457 oz Body Mass Index (BMI) 42.6 Intake & Output: Intake and Output for Last 24 Hours 06/05/23 06/06/23 06/07/23 23:59 23:59 23:59 Intake Total 850 / 850 250 / 250 940 / 940 Output Total 4250 / 4250 1000 / 1000 1300 / 1300 Balance -3400 / -3400 -750 / -750 -360 / -360 Lab / Micro Data 06/05/23 06:05 06/05/23 06:05 Physical Exam Narrative Seen and examined. Overall pain is better than before. Patient can sit about 30 to 60 degree. Patient satisfied with surgery scheduled for tomorrow AM. Was seen by spine surgeon Dr. Cheatham and pain management Dr. Wheatley. Back pain, sciatic in nature with radiation to right buttock, back of thigh, sciatica in nature past 4 weeks. Had cervical surgery and thoracic surgery in [facility]. Findings of MRI discussed with the patient. Physical exam General: Alert, Oriented x3, Cooperative HEENT: Atraumatic, PERRLA, EOMI, Normocephalic Oral: Oral mucosa dry. No Gingival or Mucosal Lesions/ Ulcerations Neck: Supple, No JVD, Negative Carotid Bruits Chest wall/Lungs: Air entry diminished in bilateral lung bases. No crepitation/rhonchi Cardiovascular: Irregular rhythm, Normal S1, Normal S2, systolic murmur Abdomen: Bowel Sounds Present, Soft, Non Tender, Non-Distended : No Atkins catheter. No dysuria. No renal angle tenderness. No suprapubic tenderness. Extremities: No edema, Capillary Refill Less than 3 Seconds Skin: No rashes, No breakdown Musculoskeletal: Mild tenderness present over LS region. ROM restricted lumbarregion. SLR positive of right LE at 30 degree and left leg at 60 degree. Muscle strength 4/5 at knees and hips likely due to pain and spasm Neurological: Cranial nerves II-XII grossly intact, DTR 2+/4. L4-5 L5-S1 radiculopathy Psych/Mental Status: Flat affect Assessment & Plan Assessment/Plan (1) Intractable back pain: PLAN: Plan The patient is a 67 y/o F came to ED with low back pain and right lower extremity pain for about 1 month. History of 2 back surgeries in the past. Patient in wheelchair. She also has disequilibrium/loss of balance and near fall situation, guarded weight between the wall of the toilet on day of admission #1. Adult FTT secondary to Acute Intractable Back Pain lumbar spine with right lower extremity radiculopathy with adult failure to thrive, debility, inability to ambulate: Patient being admitted on [facility] floor. PT and OT. Pain control,gabapentin, bowel regimen. Patient not able to lay flat for MRI lumbar spine, on the weekend but had MRI today in the morning 06/05: MRI finding discussed with the patient. Has severe central canal stenosisat L4-L5 and L5-S1 and large amount of extruded disc material. Pain seems better than yesterday. Spine surgeon Dr. Kwasi Cheatham called to see the patientin afternoon. Requested pain management consult Dr. Panchal for evaluation for epidural injection. On multiple opioid and steroid medications. Medrol oral Dosepak changed to dexamethasone. Tizanidine and oxycodone. 06/06: Patient evaluated by both spine surgeon Dr. Kwasi Cheatham and Dr. Wheatley. Scheduled for surgery tomorrow. Preop EKG and labs ordered. #2. Chronic normocytic anemia: Admission hemoglobin 11.1, MCV 86.4, baseline hemoglobin similar range, 06/04/23 Hgb 11, MCV 87.5. #3. Hypertension: Continue home regimen including valsartan, spironolactone, amlodipine, clonidine but clarifying, PRN hydralazine. #4. Hyperlipidemia: continue patient on statin therapy. #5. Anxiety and depression: We will continue patient home sertraline and hydroxyzine home regimen. #6. PAF: From current list does not appear to be on rate or rhythm agent, also does not appear to be on any anticoagulant therapy. Previously had been on bothXarelto and metoprolol 25 mg p.o. twice daily but does not appear to be taking this currently. If issues arise may restart. #7. c COPD: Not on any chronic regimen, will place on ATC budesonide therapy, PRN albuterol, HOB, IS parameters. #8. Morbid Obesity: Weight loss and lifestyle changes encouraged. #9. Former alcohol abuse: Patient sober for 45 years, encourage continued complete sobriety. #10. Former tobacco use: Encourage continued tobacco cessation. #11. IRIS: BiPAP nightly. #12. DVT prophylaxis: Lovenox. #13. CODE status: Full code. Clinical Impression(s) from Imaging Studies Lumbar Spine X-Ray 06/02/23 18:35 IMPRESSION: No evidence of lumbar spinal fracture or spondylolisthesis. Severe multilevel degenerative disc disease and spondylosis. Lumbar Spine MRI 06/05/23 09:30 IMPRESSION: 1. Multilevel moderate to severe degenerative changes, as described above. 2. Severe central canal stenosis at L4-L5 and L5-S1 3. Large amount of extruded disc material originating from L4-L5 traveling down to the L5-S1 space Charges/Coding Visit Charges Inpatient E&M: 03696 Subs Hosp L2 06/07/23 7250 <Electronically signed by Lamont Arzate MD> Cosigner Signature (if applicable): CC: ~ Signed [facility] Work Phone: 1(351) 730-706504-23-2024 Consult note Author Eric Wheatley [facility] June 06, 2023 5:16pm Note Date/Time June 06, 2023 1:3 5pm [facility] Medical Records Department [address] [place] [id number] Consultation 06/06/23 1329 MR#: [id number] Acct: [id number] Name: SONIA KARIMI Rep #:[id number] : 1955 67 From: Eric lang MD PCP: Dr. Melissa Muhammad MD Status:AD M IN Location: TN3 MD607-4 Assessment & Plan Assessment/Plan (1) Intractable back pain: (2) Stenosis, spinal, lumbar: (3) Lumbar radiculopathy, acute: PLAN: Plan The patient is a 67 y/o F came to ED with low back pain and right lower extremity pain for about 1 month. History of 2 back surgeries in the past. Patient in wheelchair. She also has disequilibrium/loss of balance and near fall situation, guarded weight between the wall of the toilet on day of admission. Severe low back pain with radiculopathy down the right lower extremity. Dr. Cheatham plans for surgical intervention, so will hold off on NAY. I spoke with lidnen about this plan. Can follow up with pain management after surgery. Clinical Impression(s) from Imaging Studies Lumbar Spine X-Ray 06/02/23 18:35 IMPRESSION: No evidence of lumbar spinal fracture or spondylolisthesis. Severe multilevel degenerative disc disease and spondylosis. Lumbar Spine MRI 06/05/23 09:30 IMPRESSION: 1. Multilevel moderate to severe degenerative changes, as described above. 2. Severe central canal stenosis at L4-L5 and L5-S1 3. Large amount of extruded disc material originating from L4-L5 traveling down to the L5-S1 space HPI Consult Data Date of Consult: 06/06/23 HPI Narrative HPI Narrative: SONIA KARIMI, is a 67 F who is on medr floor for severe back pain with right lower extremity radiculopathy. She has a history of midback and cervical surgery. She has been wheelchair bound since the midbcack surgery 2 years ago. 1month ago the pain came on. She states she has had increased difficulty with moving between the wheelchair and to the bed/toilet and has had a few falls. She is tearful intermittently sharing these difficulties. She denies any prior injections or seeing pain management. She has been managed on medicaitons including opioids and steroid dose pack with some benefit short term. The pain is stabbing in nature and ranges from 6-10/10 in severity. MRI demonstrated severe canal stenosis L4-L5 and L5-S1 with disc herniation. She denies any bowel or bladder control loss, denies saddle paresthesias or severe worsened weakness. [facility] Medical History (Updated 06/06/23 @ 17:[address] Eric Wheatley MD) Anxiety and depression Atrial fibrillation COPD (chronic obstructive pulmonary disease) Former smoker Herpes zoster History of alcohol abuse Hyperlipidemia Hypertension Morbid obesity Neuropathic pain IRIS treated with BiPAP Osteoarthritis of knees, bilateral Pseudogout of right knee Thoracic spinal stenosis Thyroid nodule Vitamin D deficiency Home Medications atorvastatin 10 mg tablet 10 mg PO DAILY@2200 Cholesterol 12/08/20 [History Last Taken 06/01/23] cholecalciferol (vitamin D3) 25 mcg (1,000 unit) tablet (Vitamin D3) 2,000 unit PO DAILY Supplement 12/08/20 [History Last Taken 06/01/23] clonidine HCl 0.1 mg tablet 0.1 mg PO BID BP 12/08/20 [History Last Taken 06/01/23] diclofenac sodium 1 % topical gel (Voltaren Arthritis Pain) 1 ea topical Q6H Pain 12/08/20 [History Last Taken 06/01/23] sertraline 100 mg tablet 100 mg PO DAILY Mood 12/08/20 [History Last Taken 06/01/23] gabapentin 300 mg capsule 300 mg PO BID Nerve Pain 30 days #60 caps 01/01/21 [Rx Last Taken 06/01/23] methocarbamol 750 mg tablet 750 mg PO Q8H pain 30 days #90 tabs 01/01/21 [Rx Last Taken 06/01/23] potassium chloride 20 mEq tablet,extended release(part/cryst) (Klor-Con M) 20 meq PO DAILYCM 30 days #30 tabs 01/01/21 [Rx Last Taken 06/01/23] hydroxyzine pamoate 25 mg capsule 25 mg PO QHS 30 days #30 caps 01/11/21 [Rx Last Taken 06/01/23] orphenadrine citrate 100 mg tablet,extended release 100 mg PO BID PRN muscle spasm #10 tabs 05/02/23 [Rx Last Taken 06/01/23] acetaminophen 500 mg tablet 1,000 mg PO Q6H PRN Pain Score 1-10 06/02/23 [History Last Taken 06/01/23] amlodipine 10 mg tablet 10 mg PO DAILY 06/02/23 [History Last Taken 06/01/23] diclofenac sodium 100 mg tablet,extended release 24 hr 100 mg PO DAILY 06/02/23 [History Last Taken 06/01/23] docusate sodium 100 mg capsule 100 mg PO DAILY 06/02/23 [History Last Taken 06/01/23] ketoconazole 2 % topical cream 1 applic topical DAILY 06/02/23 [History Last Taken 06/01/23] oxycodone-acetaminophen 5 mg-325 mg tablet 1 tab PO 4X/DAY PRN PRN pain 06/02/23[History Last Taken 06/02/23] prednisone 10 mg tablet 10 mg PO DAILY STERIOD TAPER 06/02/23 [History Last Taken 06/01/23] spironolactone 25 mg tablet 25 mg PO DAILY 06/02/23 [History Last Taken 06/01/23] valsartan 160 mg tablet 160 mg PO DAILY 06/02/23 [History Last Taken 06/01/23] valsartan 80 mg tablet 80 mg PO DAILY 06/02/23 [History Last Taken 06/01/23] Allergy/AdvReac Type Severity Reaction Status Date / Time hydrocodone [From Vicodin] Allergy Anaphylaxis Verified 06/02/23 16:42 lorazepam [From Ativan] Allergy Hives Verified 06/02/23 16:42 neomycin Allergy Hives Verified 06/02/23 16:42 Family History (Updated 06/02/23 @ 20:[address] Monika Mendoza MD) Mother No problems noted. Father Leukemia Diabetes Surgical History History of adenoidectomy History of back surgery History of back surgery Hx of tonsillectomy Social History (Updated 06/02/23 @ 20:[address] Monika Mendoza MD) household members: family Smoking Status: Former smoker how long ago did patient quit smoking: Quit 45 yrs prior, smoked 1 ppd startingage 19 until quit. alcohol intake: former details: Drank heavily prior, sober x 45 years. substance use type: does not use ROS ROS Narrative Admission Review of Systems: CONSTITUTIONAL: No weight loss, fever, chills, + weakness or fatigue. HEENT: Eyes: No visual loss, blurred vision, double vision or yellow sclerae. Ears, Nose, Throat: No hearing loss, sneezing, congestion, runny nose or sore throat. SKIN: No rash or itching, lesions, wounds. CARDIOVASCULAR: No chest pain, chest pressure or chest discomfort, palpitations,edema, orthopnea, syncopal events. RESPIRATORY: No shortness of breath, cough or sputum, wheezing, hemoptysis. GASTROINTESTINAL: No anorexia, nausea, vomiting or diarrhea, abdominal pain, melena, BRBPR. GENITOURINARY: No dysuria, frequency, urgency or retention. NEUROLOGICAL: Significant debility and weakness secondary to lumbar back pain with right lower extremity radiculopathy. No headache, dizziness, syncope, paralysis, ataxia, focal weakness, change in bowel or bladder control, seizure. MUSCULOSKELETAL: + muscle, back pain, joint pain or stiffness. HEMATOLOGIC: + Chronic anemia. No markedly easy bleeding or bruising. LYMPHATICS: No enlarged nodes. No history of splenectomy. PSYCHIATRIC: + Anxiety and depression. ENDOCRINOLOGIC: No reports of sweating, cold or heat intolerance. No polyuria orpolydipsia. ALLERGIES: No history of asthma, hives, eczema or rhinitis. Physical Exam Narrative Decreased sensation in foot on left compared to right. 4/5 right hip flexion. 5/5 otherwise in lower extremities. Const alert and oriented x3 Constitutional Narrative: Obese, intermittently tearful General Appearance: cooperative HEENT normocephalic Resp normal respiratory effort Psych affect normal Appearance: appropriate Lab / Micro Data 06/05/23 06:05 06/05/23 06:05 06/06/23 1716 <Electronically signed by rEic Wheatley MD> Cosigner Signature (if applicable): CC: Dr. Monika Mendoza MD; Dr. Melissa Muhammad MD~ Signed [facility] Work Phone: [phone]) 177-927004-23-2024 Consult note Author [facility] Cheatham [facility] June 06, 2023 3:45pm Note Date/Time June 06, 2023 3:4 5pm [facility] Medical Records Department [address] [place] [address] [id number] Consultation - Orthopedics 06/06/23 1533 MR#: [id number] Acct: [id number] Name: SONIA KARIMI Rep #:[id number] : 1955 67 From: Kwasi Cheatham MD PCP: Dr. Melissa Muhammad MD Status:AD M IN Location: TN3 PO367-4 HPI Consult Data Date of Consult: 06/06/23 HPI Narrative HPI Narrative: SONIA KARIMI, is a 67 F who has been in inpatient since 06/02/2023. I was consulted today after the MRI lumbar spine revealed a large disc herniation starting at L4-5 with migration towards L5-S1. I saw the patient in 308. She was comfortable in bed. She reports severe low back pain with right worse than left buttock pain with radiation of pain into the right lower extremity. She has numbness in the left foot worse than the right. She has baseline cervical and thoracic fusions which were likely done for myelopathy. She has been wheelchair dependent for the last 2 years. She uses a motorized wheelchair. 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 She says that about 5 weeks ago on May 01 she started having severe worsening pain and she is no longer able to do transfers from the wheelchair to commode that she had been able to do previously. Overallshe feels pain with any movement of the right lower extremity. She denies any incontinence or numbness in the perianal area. She was initially treated by ER and PCP in late April and early May with 7-day course of steroids but this continued to worsen. She has been unable to transfer with the help of physical therapy since being admitted here in the hospital. Her thoracic surgery is likely a T9-11 posterior decompression and fusion which was done 2 years ago, and she has also had cervical spine surgery which she says was 4 years ago. HerBMI is 42. She is nondiabetic. She denies taking any blood thinners at baseline. [facility] Medical History (Updated 06/02/23 @ 20:[address] Monika Mendoza MD) Anxiety and depression Atrial fibrillation COPD (chronic obstructive pulmonary disease) Former smoker Herpes zoster History of alcohol abuse Hyperlipidemia Hypertension Morbid obesity Neuropathic pain IRIS treated with BiPAP Osteoarthritis of knees, bilateral Pseudogout of right knee Thoracic spinal stenosis Thyroid nodule Vitamin D deficiency Home Medications atorvastatin 10 mg tablet 10 mg PO DAILY@2200 Cholesterol 12/08/20 [History Last Taken 06/01/23] cholecalciferol (vitamin D3) 25 mcg (1,000 unit) tablet (Vitamin D3) 2,000 unit PO DAILY Supplement 12/08/20 [History Last Taken 06/01/23] clonidine HCl 0.1 mg tablet 0.1 mg PO BID BP 12/08/20 [History Last Taken 06/01/23] diclofenac sodium 1 % topical gel (Voltaren Arthritis Pain) 1 ea topical Q6H Pain 12/08/20 [History Last Taken 06/01/23] sertraline 100 mg tablet 100 mg PO DAILY Mood 12/08/20 [History Last Taken 06/01/23] gabapentin 300 mg capsule 300 mg PO BID Nerve Pain 30 days #60 caps 01/01/21 [Rx Last Taken 06/01/23] methocarbamol 750 mg tablet 750 mg PO Q8H pain 30 days #90 tabs 01/01/21 [Rx Last Taken 06/01/23] potassium chloride 20 mEq tablet,extended release(part/cryst) (Klor-Con M) 20 meq PO DAILYCM 30 days #30 tabs 01/01/21 [Rx Last Taken 06/01/23] hydroxyzine pamoate 25 mg capsule 25 mg PO QHS 30 days #30 caps 01/11/21 [Rx Last Taken 06/01/23] orphenadrine citrate 100 mg tablet,extended release 100 mg PO BID PRN muscle spasm #10 tabs 05/02/23 [Rx Last Taken 06/01/23] acetaminophen 500 mg tablet 1,000 mg PO Q6H PRN Pain Score 1-10 06/02/23 [History Last Taken 06/01/23] amlodipine 10 mg tablet 10 mg PO DAILY 06/02/23 [History Last Taken 06/01/23] diclofenac sodium 100 mg tablet,extended release 24 hr 100 mg PO DAILY 06/02/23 [History Last Taken 06/01/23] docusate sodium 100 mg capsule 100 mg PO DAILY 06/02/23 [History Last Taken 06/01/23] ketoconazole 2 % topical cream 1 applic topical DAILY 06/02/23 [History Last Taken 06/01/23] oxycodone-acetaminophen 5 mg-325 mg tablet 1 tab PO 4X/DAY PRN PRN pain 06/02/23[History Last Taken 06/02/23] prednisone 10 mg tablet 10 mg PO DAILY STERIOD TAPER 06/02/23 [History Last Taken 06/01/23] spironolactone 25 mg tablet 25 mg PO DAILY 06/02/23 [History Last Taken 06/01/23] valsartan 160 mg tablet 160 mg PO DAILY 06/02/23 [History Last Taken 06/01/23] valsartan 80 mg tablet 80 mg PO DAILY 06/02/23 [History Last Taken 06/01/23] Allergy/AdvReac Type Severity Reaction Status Date / Time hydrocodone [From Vicodin] Allergy Anaphylaxis Verified 06/02/23 16:42 lorazepam [From Ativan] Allergy Hives Verified 06/02/23 16:42 neomycin Allergy Hives Verified 06/02/23 16:42 Family History (Updated 06/02/23 @ 20:[address] Monika Mendoza MD) Mother No problems noted. Father Leukemia Diabetes Surgical History History of adenoidectomy History of back surgery History of back surgery Hx of tonsillectomy Social History (Updated 06/02/23 @ 20:[address] Monika Mendoza MD) household members: family Smoking Status: Former smoker how long ago did patient quit smoking: Quit 45 yrs prior, smoked 1 ppd startingage 19 until quit. alcohol intake: former details: Drank heavily prior, sober x 45 years. substance use type: does not use Vital Signs Vital Signs Vital Signs: 06/05/23 15:54 06/05/23 20:23 06/05/23 20:23 Temperature 98.0 F 99.1 F Temperature Source Temporal Oral Pulse Rate 82 88 Pulse Strength Respiratory Rate 18 16 Respiratory Effort Normal Respiratory Depth Normal Respiratory Pattern Normal Blood Pressure 138/92 H 152/73 H Blood Pressure Mean 107 99 Blood Pressure Source Monitor Blood Pressure Position Semi-Fowlers Blood Pressure Location Left Forearm Pulse Ox 95 96 Oxygen Delivery Method Room Air Room Air Room Air 06/05/23 20:23 06/05/23 20:23 06/06/23 00:37 Temperature 99.1 F 98.2 F Temperature Source Oral Oral Pulse Rate 88 82 Pulse Strength Normal (2+) Respiratory Rate 16 16 Respiratory Effort Respiratory Depth Respiratory Pattern Blood Pressure 152/73 H 143/83 H Blood Pressure Mean 99 103 Blood Pressure Source Monitor Blood Pressure Position Semi-Fowlers Blood Pressure Location Left Forearm Pulse Ox 96 94 Oxygen Delivery Method Room Air Room Air 06/06/23 00:37 06/06/23 02:23 06/06/23 07:31 Temperature 98.2 F Temperature Source Oral Pulse Rate 82 Pulse Strength Respiratory Rate 16 Respiratory Effort Normal Respiratory Depth Normal Respiratory Pattern Normal Blood Pressure 143/83 H Blood Pressure Mean 103 Blood Pressure Source Monitor Blood Pressure Position Semi-Fowlers Blood Pressure Location Left Forearm Pulse Ox 94 97 Oxygen Delivery Method Room Air Room Air Room Air 06/06/23 07:54 06/06/23 07:55 06/06/23 07:55 Temperature 97 F L Temperature Source Temporal Pulse Rate 83 Pulse Strength Normal (2+) Respiratory Rate 18 Respiratory Effort Normal Respiratory Depth Normal Respiratory Pattern Normal Blood Pressure 136/78 H Blood Pressure Mean 97 Blood Pressure Source Monitor Blood Pressure Position Semi-Fowlers Blood Pressure Location Left Forearm Pulse Ox 94 Oxygen Delivery Method Room Air Room Air 06/06/23 14:30 06/06/23 14:30 Temperature 97.3 F L Temperature Source Temporal Pulse Rate 96 Pulse Strength Respiratory Rate 18 Respiratory Effort Normal Respiratory Depth Normal Respiratory Pattern Normal Blood Pressure 145/75 H Blood Pressure Mean 98 Blood Pressure Source Monitor Blood Pressure Position Semi-Fowlers Blood Pressure Location Left Arm Pulse Ox 94 Oxygen Delivery Method Room Air Weight Weight: 265 lb 3.457 oz Body Mass Index (BMI) 42.6 Physical Exam Narrative Examination of the back shows midline and bilateral paraspinal tenderness in lower lumbar spine. Neurologic evaluation of lower extremity shows baseline weakness in both lower extremities. Hip flexion is grade 3 bilaterally, associated with severe pain on the right. Quadriceps is 4 - bilaterally. Ankledorsiflexion bilaterally is 4 -. EHL is grade 4 - on the left and grade 4 on the right. Plantarflexion is grade 4 bilaterally. Lab / Micro Data 06/05/23 06:05 06/05/23 06:05 Assessment & Plan Assessment/Plan (1) Intractable back pain: PLAN: Plan I reviewed her MRI of the lumbar spine done yesterday. This shows multilevel lumbar severe disc degeneration. Her x-rays show vacuum phenomenon at multiple upper lumbar levels. She has had T9-11 posterior decompression and fusion. L4-5 maintains good disc height on x-rays. MRI shows large central disc extrusion at L4-5 with inferior migration going behind the L5 vertebral body almost reaching L5-S1 disc. This is slightly larger on the left than the right but is predominantly central. This causes severe cauda equina compression. I explained to her the imaging findings in detail. She has a large extruded disc which is causing severe cauda equina compression at L4-5 migrating towards L5- S1. She has severe decline in her function over the last 5 weeks because of this. She has baseline thoracic and cervical myelopathy from which she has somebaseline weakness in all 4 extremities. She is wheelchair-bound. I explained to her options of treatment which include epidural injections versus surgical microdiscectomy. Patient has a severe decline in her baseline function over thelast 5 weeks which is not improving with time despite oral steroids and physicaltherapy. The volume of the disc herniation with cauda equina compression concerns me with possibility of cauda equina syndrome with an attempted injection. I explained to her that surgical microdiscectomy would likely improve the tension on the nerves and the compression and the radicular pain. It might not eliminate her axial low back pain or her baseline weakness in both lower extremities. I recommend L4-5 laminotomy and discectomy. All risk benefits and alternatives were discussed. The risks include but are not limitedto infection, bleeding, injury to nerves and vessels, hematoma formation, need for further surgery, need for fusion, persistent pain, nerve injury, foot drop, DVT, pulmonary embolism, iatrogenic instability, pneumonia, atelectasis, cardiopulmonary event, recurrent disc herniation. Patient understands and agrees to proceed with surgery. Patient will be scheduled during this admissiondepending on or availability, likely morning. Patient was in agreement. All questions were answered. Charges/Coding Visit Charges Inpatient E&M: 63900 Init Hosp L3 06/06/23 9547 <Electronically signed by Kwasi Cheatham MD> Cosigner Signature (if applicable): CC: Dr. Monika Mendoza MD; Dr. Melissa Muhammad MD; Dr. Lamont Arzate MD~ Signed [facility] Work Phone: 1(681) 240-460704-23-2024 Progress note Author Lamont Arzate [facility] June 06, 2023 1:11pm Note Date/Time June 06, 2023 9:4 3am [facility] Medical Records Department [address] [place] [address] Progress Note - Hospitalist 06/06/23 0942 MR#: [id number] Acct: [id number] Name: SONIA KARIMI Rep #:[id number] : 1955 67 From: Lamont Hawkins PCP: Dr. Melissa Muhammad MD Status:AD M IN Location: MS3 KC775-4 Reason for Visit Reason for Visit: Diagnoses Dorsalgia, unspecified (06/02/23) Objective Data Objective Data Vital Signs: Vital Signs Temp Pulse Resp BP Pulse Ox O2 Del Method O2 Flow Rate 97 F L 83 18 136/78 H 94 Room Air 2 06/06/23 07:54 06/06/23 07:54 06/06/23 07:54 06/06/23 07:54 06/06/23 07:54 06/06/23 07:55 06/05/23 10:37 Oxygen Flow Rate (L/min) 2 Oxygen Delivery Method Room Air Weight: 265 lb 3.457 oz Body Mass Index (BMI) 42.6 Intake & Output: Intake and Output for Last 24 Hours 06/04/23 06/05/23 06/06/23 23:59 23:59 23:59 Intake Total 500 / 800 850 / 850 250 / 250 Output Total 750 / 2200 4250 / 4250 500 / 500 Balance -250 / -1400 -3400 / -3400 -250 / -250 Lab / Micro Data 06/05/23 06:05 06/05/23 06:05 Radiography Diagnostic Testing: Radiology Impression Lumbar Spine MRI 06/05/23 09:30 IMPRESSION: 1. Multilevel moderate to severe degenerative changes, as described above. 2. Severe central canal stenosis at L4-L5 and L5-S1 3. Large amount of extruded disc material originating from L4-L5 traveling down to the L5-S1 space Electronically Signed: Sergio Gutiérrez MD at 13:06 EDT Reading Location ID and State: [facility] / [place] , Service support , ADDENDUM: 06/05/23 1316 IMPRESSION: undefined Physical Exam Narrative Seen and examined. Back pain, sciatic in nature with radiation to right buttock, back of thigh, sciatica in nature past 4 weeks. Had cervical surgery and thoracic surgery in [facility]. Findings of MRI discussed with the patient. Pain looks better than yesterday Physical exam General: Alert, Oriented x3, Cooperative HEENT: Atraumatic, PERRLA, EOMI, Normocephalic Oral: Oral mucosa dry. No Gingival or Mucosal Lesions/ Ulcerations Neck: Supple, No JVD, Negative Carotid Bruits Chest wall/Lungs: Air entry diminished in bilateral lung bases. No crepitation/rhonchi Cardiovascular: Irregular rhythm, Normal S1, Normal S2, systolic murmur Abdomen: Bowel Sounds Present, Soft, Non Tender, Non-Distended : No Atkins catheter. No dysuria. No renal angle tenderness. No suprapubic tenderness. Extremities: No edema, Capillary Refill Less than 3 Seconds Skin: No rashes, No breakdown Musculoskeletal: Tenderness present over LS region. ROM restricted lumbar region. SLR positive. Muscle strength 4/5 at knees and hips likely due to painand spasm Neurological: Cranial nerves II-XII grossly intact, DTR 2+/4. L4-5 L5-S1 radiculopathy Psych/Mental Status: Flat affect, crying. Assessment & Plan Assessment/Plan (1) Intractable back pain: PLAN: Plan The patient is a 67 y/o F came to ED with low back pain and right lower extremity pain for about 1 month. History of 2 back surgeries in the past. Patient in wheelchair. She also has disequilibrium/loss of balance and near fall situation, guarded weight between the wall of the toilet on day of admission #1. Adult FTT secondary to Acute Intractable Back Pain lumbar spine with right lower extremity radiculopathy with adult failure to thrive, debility, inability to ambulate: [facility]. Pain control,gabapentin, bowel regimen. Patient not able to lay flat for MRI lumbar spine, on the weekend but had MRI today in the morning 06/05: MRI finding discussed with the patient. Has severe central canal stenosisat L4-L5 and L5-S1 and large amount of extruded disc material. Pain seems better than yesterday. Spine surgeon Dr. Kwasi Cheatham called to see the patientin afternoon. Requested pain management consult Dr. Panchal for evaluation for epidural injection. On multiple opioid and steroid medications. Medrol oral Dosepak changed to dexamethasone. Tizanidine and oxycodone. #2. Chronic normocytic anemia: Admission hemoglobin 11.1, MCV 86.4, baseline hemoglobin similar range, 06/04/23 Hgb 11, MCV 87.5. #3. Hypertension: Continue home regimen including valsartan, spironolactone, amlodipine, clonidine but clarifying, PRN hydralazine. #4. Hyperlipidemia: continue patient on statin therapy. #5. Anxiety and depression: We will continue patient home sertraline and hydroxyzine home regimen. #6. PAF: From current list does not appear to be on rate or rhythm agent, also does not appear to be on any anticoagulant therapy. Previously had been on bothXarelto and metoprolol 25 mg p.o. twice daily but does not appear to be taking this currently. If issues arise may restart. #7. c COPD: Not on any chronic regimen, will place on ATC budesonide therapy, PRN albuterol, HOB, IS parameters. #8. Morbid Obesity: Weight loss and lifestyle changes encouraged. #9. Former alcohol abuse: Patient sober for 45 years, encourage continued complete sobriety. #10. Former tobacco use: Encourage continued tobacco cessation. #11. IRIS: BiPAP nightly. #12. DVT prophylaxis: Lovenox. #13. CODE status: Full code. Clinical Impression(s) from Imaging Studies Lumbar Spine X-Ray 06/02/23 18:35 IMPRESSION: No evidence of lumbar spinal fracture or spondylolisthesis. Severe multilevel degenerative disc disease and spondylosis. Lumbar Spine MRI 06/05/23 09:30 IMPRESSION: 1. Multilevel moderate to severe degenerative changes, as described above. 2. Severe central canal stenosis at L4-L5 and L5-S1 3. Large amount of extruded disc material originating from L4-L5 traveling down to the L5-S1 space Charges/Coding Visit Charges Inpatient E&M: 44571 Subs Hosp L2 06/06/23 1311 <Electronically signed by Lamont Arzate MD> Cosigner Signature (if applicable): CC: ~ Signed [facility] Work Phone: 1(476) 630-580904-23-2024 [facility]04-22-2024 Progress note Author Lamont Arzate [facility] June 05, 2023 2:34pm Note Date/Time June 05, 2023 11: 05am [facility] Medical Records Department [address] [place] [id number] Progress Note - Hospitalist 06/05/23 1102 MR#: [id number] Acct: [id number] Name: SONIA KARIMI Rep #:[id number] : 1955 67 From: Lamont Hawkins PCP: Dr. Melissa Muhammad MD Status:JOSE SHETYT Location: [place] [address] Reason for Visit Reason for Visit: Diagnoses Dorsalgia, unspecified (06/02/23) Objective Data Objective Data Vital Signs: Vital Signs Temp Pulse Resp BP Pulse Ox O2 Del Method O2 Flow Rate 98.3 F 110 H 12 149/62 H 98 Nasal Cannula 2 06/05/23 08:51 06/05/23 10:37 06/05/23 10:37 06/05/23 10:37 06/05/23 10:37 06/05/23 10:37 06/05/23 10:37 Oxygen Flow Rate (L/min) 2 Oxygen Delivery Method Nasal Cannula Weight: 264 lb 1.82 oz Body Mass Index (BMI) 42.4 Intake & Output: Intake and Output for Last 24 Hours 06/03/23 06/04/23 06/05/23 23:59 23:59 23:59 Intake Total 1920 / 1920 500 / 800 400 / 400 Output Total 700 / 900 750 / 2200 3150 / 3150 Balance 1220 / 1020 -250 / -1400 -2750 / -2750 Lab / Micro Data 06/05/23 06:05 06/05/23 06:05 Labs: Laboratory Results - last 24 hr 06/05/23 06:05: WBC 11.4 H, RBC 4.20, Hgb 11.4 L, Hct 36.4 L, MCV 86.7, MCH 27.1, MCHC 31.3 L, RDW Std Deviation 41.7, RDW Coeff of Laila 13.4, Plt Count 416,MPV 9.2, Immature Gran % (Auto) 0.500, Neut % (Auto) 82.4 H, Lymph % (Auto) 11.0L, Len[place] % (Auto) 5.3, Eos % (Auto) 0.4, Baso % (Auto) 0.4, Absolute Neuts (auto)9.4 H, Absolute Lymphs (auto) 1.25, Nucleated RBC % 0, Sodium 136, Potassium 4.7, Chloride 102, Carbon Dioxide 31.0, Anion Gap 3 L, BUN 17, Creatinine 0.58, Estim Creat Clear Calc 87.49, Est GFR (MDRD) Af Amer 131, Est GFR (MDRD) Non-Af 108, BUN/Creatinine Ratio 29.1 H, Glucose 124 H, Calcium 9.3, Total Bilirubin 0.40, AST 28, ALT 44, Alkaline Phosphatase 101, Total Protein 6.7, Albumin 3.0 L, Globulin 3.7, Albumin/Globulin Ratio 0.8 L Physical Exam Narrative Seen and examined. Patient had MRI of lower back in the morning. Complain of back pain, sciatica in nature with radiation to RLE for past 4 weeks status post several back surgeries. Physical exam General: Alert, Oriented x3, Cooperative HEENT: Atraumatic, PERRLA, EOMI, Normocephalic Oral: Oral mucosa dry. No Gingival or Mucosal Lesions/ Ulcerations Neck: Supple, No JVD, Negative Carotid Bruits Chest wall/Lungs: Air entry diminished in bilateral lung bases. No crepitation/rhonchi Cardiovascular: Irregular rhythm, Normal S1, Normal S2, systolic murmur Abdomen: Bowel Sounds Present, Soft, Non Tender, Non-Distended : No dysuria. No renal angle tenderness. No suprapubic tenderness. Extremities: No edema, Capillary Refill Less than 3 Seconds Skin: No rashes, No breakdown Musculoskeletal: Tenderness present over LS region. ROM restricted lumbar region. Difficulty laying flat/painful Neurological: Cranial nerves II-XII grossly intact, DTR 2+/4. No acute focal neurological deficit. Psych/Mental Status: Flat affect, crying. Assessment & Plan Assessment/Plan (1) Intractable back pain: PLAN: Plan The patient is a 67 y/o F came to ED with low back pain and right lower extremity pain for about 1 month. History of 2 back surgeries in the past. Patient in wheelchair. She also has disequilibrium/loss of balance and near fall situation, guarded weight between the wall of the toilet on day of admission #1. Adult FTT secondary to Acute Intractable Back Pain lumbar spine with right lower extremity radiculopathy with adult failure to thrive, debility, inability to ambulate: [facility] and OT. Pain control,gabapentin, bowel regimen. Patient not able to lay flat for MRI lumbar spine, on the weekend but had MRI today in the morning #2. Chronic normocytic anemia: Admission hemoglobin 11.1, MCV 86.4, baseline hemoglobin similar range, 06/04/23 Hgb 11, MCV 87.5. #3. Hypertension: Continue home regimen including valsartan, spironolactone, amlodipine, clonidine but clarifying, PRN hydralazine. #4. Hyperlipidemia: continue patient on statin therapy. #5. Anxiety and depression: We will continue patient home sertraline and hydroxyzine home regimen. #6. PAF: From current list does not appear to be on rate or rhythm agent, also does not appear to be on any anticoagulant therapy. Previously had been on bothXarelto and metoprolol 25 mg p.o. twice daily but does not appear to be taking this currently. If issues arise may restart. #7. c COPD: Not on any chronic regimen, will place on ATC budesonide therapy, PRN albuterol, HOB, IS parameters. #8. Morbid Obesity: Weight loss and lifestyle changes encouraged. #9. Former alcohol abuse: Patient sober for 45 years, encourage continued complete sobriety. #10. Former tobacco use: Encourage continued tobacco cessation. #11. IRIS: BiPAP nightly. #12. DVT prophylaxis: Lovenox. #13. CODE status: Full code. Clinical Impression(s) from Imaging Studies Lumbar Spine X-Ray 06/02/23 18:35 IMPRESSION: No evidence of lumbar spinal fracture or spondylolisthesis. Severe multilevel degenerative disc disease and spondylosis. Lumbar Spine MRI 06/05/23 09:30 IMPRESSION: 1. Multilevel moderate to severe degenerative changes, as described above. 2. Severe central canal stenosis at L4-L5 and L5-S1 3. Large amount of extruded disc material originating from L4-L5 traveling down to the L5-S1 space Charges/Coding Visit Charges Inpatient E&M: 88287 Subs Hosp L2 06/05/23 1434 <Electronically signed by Lamont Arzate MD> Cosigner Signature (if applicable): CC: ~ Signed [facility] Work Phone: 1(180) 407-731904-21-2024 Progress note Author Monika Mendoza [facility] June 04, 2023 9:46am Note Date/Time June 04, 2023 7:0 7am [facility] Medical Records Department [address] [place] [address] Progress Note - Hospitalist 06/04/23704 MR#: [id number] Acct: [id number] Name: SONIA KARIMI Rep #:[id number] : 1955 67 From: Monika Mendoza MD PCP: Dr. Melissa Muhammad MD Status:JOSE SHETTY Location: [place] [id number] Reason for Visit Reason for Visit: Diagnoses Dorsalgia, unspecified (06/02/23) Subjective Subjective Patient notes that her pain continues to improve and it has been several hours since she needed any type of overlapping pain medication. She notes that she did try to lay flat the day prior however she still had significant pain and this was done at the end of the day and she feels as though her pain is worse atthat point thus MRI was deferred. Discussed plan of care and what she thinks isbest is to attempt to obtain MRI of the back early in the morning and if this isnot able to be obtained because of pain still and inability to lay flat then lowthreshold to involve pain management for consideration of injection if able to which she is amenable. Patient denies fevers, chills, nausea, emesis, abdominalpain, chest pain or dyspnea. Objective Data Objective Data Vital Signs: Vital Signs Temp Pulse Resp BP Pulse Ox O2 Del Method O2 Flow Rate 98.1 F 77 15 163/72 H 93 CPAP 2 06/04/23 03:00 06/04/23 03:00 06/04/23 03:00 06/04/23 03:00 06/04/23 03:00 06/04/23 03:00 06/03/23 09:47 Oxygen Flow Rate (L/min) 2 Oxygen Delivery Method CPAP Weight: 264 lb 1.82 oz Body Mass Index (BMI) 42.4 Intake & Output: Intake and Output for Last 24 Hours 06/02/23 06/03/23 06/04/23 23:59 23:59 23:59 Intake Total 1920 / 1920 Output Total 700 / 900 400 / 400 Balance 1220 / 1020 -400 / -400 Lab / Micro Data 06/04/23 05:28 06/04/23 05:28 Labs: Laboratory Results - last 24 hr 06/04/23 05:28: WBC 11.2 H, RBC 4.01 L, Hgb 11.0 L, Hct 35.1 L, MCV 87.5, MCH 27.4, MCHC 31.3 L, RDW Std Deviation 43.4, RDW Coeff of Laila 13.5, Plt Count 366,MPV 9.2, Immature Gran % (Auto) 0.900, Neut % (Auto) 89.8 H, Lymph % (Auto) 5.6 L, Lenoir % (Auto) 3.3, Eos % (Auto) 0.0, Baso % (Auto) 0.4, Absolute Neuts (auto)10.1 H, Absolute Lymphs (auto) 0.63 L, Nucleated RBC % 0, Sodium 136, Potassium 4.9, Chloride 105, Carbon Dioxide 29.0, Anion Gap 2 L, BUN 17, Creatinine 0.53 L, Estim Creat Clear Calc 87.82, Est GFR (MDRD) Af Amer 148, Est GFR (MDRD) Non-Af 122, BUN/Creatinine Ratio 32.2 H, Glucose 158 H, Calcium 9.0, Total Bilirubin0.40, AST 29, ALT 39, Alkaline Phosphatase 94, Total Protein 6.3 L, Albumin 2.7 L, Globulin 3.6, Albumin/Globulin Ratio 0.8 L Physical Exam Narrative Physical Examination: General: Awake, alert, oriented x 3, comfortable appearing, eating breakfast, notes pain continues to improve, still some discomfort with sharp pain to the right lower extremity primarily with movements but much better. Skin: Normal color, normal turgor, no icterus, no cyanosis. HEENT: AT/NC, EOMI, PERRLA, MMM. Lungs: Diminished, distant, no evidence of any distress, no rales, ronchi or wheezing. Heart: Regular rate and rhythm; no gallop, rub audible. Abdomen: Soft, morbidly obese, NTTP, distant BS. Extremities: No cyanosis, no clubbing, no marked peripheral pitting edema noted. Neurological: Patient awake, alert, oriented as noted, cognitive function intact; pupils equally reactive to light and accommodation, cranial nerves grossly normal, patient eating, moving the bed with greater ease, does still note some discomfort with shooting pains occasionally down the right leg, strength improving but still moderately to severely globally decreased. Psychiatric: Affect appears more comfortable, eating breakfast, no acute distress, no acute evidence of depressive or anxiety feelings. Assessment & Plan Assessment/Plan (1) Intractable back pain: PLAN: Plan The patient is a 67 y/o F w/ PMHx: Anxiety and Depression, PAF, IRIS on BIPAP, COPD, Former EtOH abuse, Former tobacco use, Morbid obesity, HTN, HLD, Chronic back pain with chronic radiculopathy and sciatic pain with several prior surgeries noted to be nearly wheelchair bound who presents to the [facility] ED on 06/02/2023 with persistent low back pain with right lower extremity shooting painfor at least the last 4 weeks seen previously in the emergency room and followedup with her primary care with unfortunately mechanical fall while she was on thetoilet unfortunately getting wedged between the wall and the toilet but no heartdropped onto the floor but unable to safely take care of herself prompting family to bring her in for evaluation and consideration of skilled facility placement. #1. Adult FTT secondary to Acute Intractable Back Pain lumbar spine with right lower extremity radiculopathy with adult failure to thrive, debility, inability to ambulate: Admitted to [place], maintain on fall precautions, frequent positioning,given improvement of symptoms at this time will continue scheduled short course IV toradol, maintained on lidocaine patches, tizanidine, medrol dose pack, po/IVnarcotic pain regimen, anti-emetics, bowel regimen, increase her gabapentin. Attempted patient to lay flat 06/02 for MRI lumbar spine; however, pain still notable and unable. Will need to reattempt Monday; however, if patient still having issues would plan consultation with pain management for consideration intervention. PT/OT/CM consulted for discharge planning. #2. Chronic normocytic anemia: Admission hemoglobin 11.1, MCV 86.4, baseline hemoglobin similar range, 06/04/23 Hgb 11, MCV 87.5. #3. Hypertension: Continue home regimen including valsartan, spironolactone, amlodipine, clonidine but clarifying, PRN hydralazine. #4. Hyperlipidemia: We will continue patient on statin therapy. #5. Anxiety and depression: We will continue patient home sertraline and hydroxyzine home regimen. #6. PAF: From current list does not appear to be on rate or rhythm agent, also does not appear to be on any anticoagulant therapy. Previously had been on bothXarelto and metoprolol 25 mg p.o. twice daily but does not appear to be taking this currently. If issues arise may restart. #7. Chronic COPD: Not on any chronic regimen, will place on ATC budesonide therapy, PRN albuterol, HOB, IS parameters. #8. Morbid Obesity: Weight loss and lifestyle changes encouraged. #9. Former alcohol abuse: Patient sober for 45 years, encourage continued complete sobriety. #10. Former tobacco use: Encourage continued tobacco cessation. #11. IRIS: BiPAP nightly. #12. DVT prophylaxis: Lovenox. #13. CODE status: Full code. Charges/Coding Visit Charges Inpatient E&M: 99480 Subs Hosp L2 06/04/23 0946 <Electronically signed by Monika Mendoza MD> Cosigner Signature (if applicable): CC: ~ Signed [facility] Work Phone: 1(565) 592-573704-20-2024 Progress note Author Monika Mendoza [facility] June 03, 2023 11:05am Note Date/Time June 03, 2023 6:5 2am [facility] Medical Records Department [address] [facility] [place] [address] Progress Note - Hospitalist 06/03/2350 MR#: [id number] Acct: [id number] Name: SONIA KARIMI Rep #:[id number] : 1955 67 From: Monika Mendoza MD PCP: Dr. Melissa Muhammad MD Status:JOSE SHETTY Location: [facility] [id number] Reason for Visit Reason for Visit: Diagnoses Dorsalgia, unspecified (06/02/23) Subjective Subjective Patient per staff overnight and also per self with significant improvement of her pain although she still has some discomfort especially when she tends to move and rearrange herself in the bed but rated much less 5-6 out of 10 and its only during specific times and she is more comfortable at rest. She has been able to move her bed back and is laying down more but not flat as of yet. She still does have some intermittent occasional sharp shooting pains down her rightleg. Discussed plan of care which included continuation of these medications but also plan to assess if she is able to lay flat during the day for potential MRI with plan to trial Versed for anxiety with claustrophobia. Patient denies fevers, chills, nausea, emesis, abdominal pain, chest pain or dyspnea. Objective Data Objective Data Vital Signs: Vital Signs Temp Pulse Resp BP Pulse Ox O2 Del Method 97.2 F L 78 15 151/70 H 94 Room Air 06/03/23 04:00 06/03/23 04:00 06/03/23 04:00 06/03/23 04:00 06/03/23 04:00 06/03/23 04:00 Oxygen Delivery Method Room Air Weight: 265 lb 14.04 oz Body Mass Index (BMI) 42.9 Intake & Output: Intake and Output for Last 24 Hours 06/01/23 06/02/23 06/03/23 23:59 23:59 23:59 Intake Total 200 / 200 Balance 200 / 200 Lab / Micro Data 06/03/23 05:05 06/03/23 05:05 Labs: Laboratory Results - last 24 hr 06/02/23 17:50: WBC 14.1 H, RBC 4.03 L, Hgb 11.1 L, Hct 34.8 L, MCV 86.4, MCH 27.5, MCHC 31.9 L, RDW Std Deviation 42.9, RDW Coeff of Laila 13.8, Plt Count 370,MPV 9.0, Immature Gran % (Auto) 0.400, Neut % (Auto) 82.4 H, Lymph % (Auto) 8.3 L, Lenoir % (Auto) 7.0, Eos % (Auto) 1.5, Baso % (Auto) 0.4, Absolute Neuts (auto)11.7 H, Absolute Lymphs (auto) 1.18, Nucleated RBC % 0, Sodium 139, Potassium 4.4, Chloride 106, Carbon Dioxide 25.0, Anion Gap 8, BUN 28 H, Creatinine 0.62, Estim Creat Clear Calc 89.41, Est GFR (MDRD) Af Amer 123, Est GFR (MDRD) Non-Af 102, BUN/Creatinine Ratio 45.4 H, Glucose 104, Calcium 9.4, Total Bilirubin 0.60, AST 54 H, ALT 43, Alkaline Phosphatase 105, Total Protein 7.0, Albumin 3.4, Globulin 3.6, Albumin/Globulin Ratio 0.9, Urine Color Yellow, Urine ClarityClear, Urine pH 6.0, Ur Specific Wadley 1.020, Urine Protein 30 H, Urine Glucose (UA) Normal, Urine Ketones 50 H, Urine Occult Blood 10 H, Urine Nitrite Negative, Urine Bilirubin Negative, Urine Urobilinogen 1 H, Ur Leukocyte Esterase 25 H, Urine RBC 0-5 SEEN, Urine WBC 0-5 SEEN, Ur Squamous Epith Cells 0SEEN, Urine Bacteria RARE, Urine Mucus 1+ 06/03/23 05:05: WBC 10.4, RBC 3.83 L, Hgb 10.3 L, Hct 33.4 L, MCV 87.2, MCH 26.9L, MCHC 30.8 L, RDW Std Deviation 43.8, RDW Coeff of Laila 13.9, Plt Count 336, MPV 9.4, Immature Gran % (Auto) 0.700, Neut % (Auto) 90.7 H, Lymph % (Auto) 5.3 L, Lenoir % (Auto) 2.0, Eos % (Auto) 0.9, Baso % (Auto) 0.4, Absolute Neuts (auto)9.5 H, Absolute Lymphs (auto) 0.55 L, Nucleated RBC % 0, Sodium 136, Potassium 4.5, Chloride 106, Carbon Dioxide 27.0, Anion Gap 3 L, BUN 24 H, Creatinine 0.56, Estim Creat Clear Calc 87.82, Est GFR (MDRD) Af Amer 137, Est GFR (MDRD) Non-Af 114, BUN/Creatinine Ratio 42.7 H, Glucose 144 H, Calcium 9.3, Total Bilirubin 0.60, AST 43 H, ALT 42, Alkaline Phosphatase 101, Total Protein 6.6, Albumin 3.1 L, Globulin 3.5, Albumin/Globulin Ratio 0.9 Radiography Diagnostic Testing: Radiology Impression Lumbar Spine X-Ray 06/02/23 18:35 IMPRESSION: No evidence of lumbar spinal fracture or spondylolisthesis. Severe multilevel degenerative disc disease and spondylosis. Electronically Signed: Indio Daniels MD at 19:35 EDT , Physical Exam Narrative Physical Examination: General: Patient sleeping initially upon evaluation but awoken and alert and oriented and much more comfortable appearing the day prior, oriented x 3. Skin: Normal color, normal turgor, no icterus, no cyanosis. HEENT: AT/NC, EOMI, PERRLA, MMM. Lungs: Diminished, distant, no evidence of any distress, no rales, ronchi or wheezing. Heart: Regular rate and rhythm; no gallop, rub audible. Abdomen: Soft, morbidly obese, NTTP, distant BS. Extremities: No cyanosis, no clubbing, no marked peripheral pitting edema noted. Neurological: Patient awake, alert, oriented as noted, cognitive function intact; pupils equally reactive to light and accommodation, cranial nerves grossly normal, patient moving in the bed with greater ease but she does still have some discomfort to the back as well as right lower extremity with movement but able to move with greater ease and she is laying back more as the day prior she was hunched forward to alleviate her discomfort, strength still severely globally decreased. Psychiatric: Affect appears more comfortable, initially was sleeping and awoke reporting her pain is better, still present when she moves, notes she was at least able to sleep for duration of time, mildly fatigued appearing, no acute evidence of depressive or anxiety feelings. Assessment & Plan Assessment/Plan (1) Intractable back pain: PLAN: Plan The patient is a 67 y/o F w/ PMHx: Anxiety and Depression, PAF, IRIS on BIPAP, COPD, Former EtOH abuse, Former tobacco use, Morbid obesity, HTN, HLD, Chronic back pain with chronic radiculopathy and sciatic pain with several prior surgeries noted to be nearly wheelchair bound who presents to the [facility] ED on 06/02/2023 with persistent low back pain with right lower extremity shooting painfor at least the last 4 weeks seen previously in the emergency room and followedup with her primary care with unfortunately mechanical fall while she was on thetoilet unfortunately getting wedged between the wall and the toilet but no heartdropped onto the floor but unable to safely take care of herself prompting family to bring her in for evaluation and consideration of skilled facility placement. #1. Adult FTT secondary to Acute Intractable Back Pain lumbar spine with right lower extremity radiculopathy with adult failure to thrive, debility, inability to ambulate: Admitted to [place], maintain on fall precautions, frequent positioning,given improvement of symptoms at this time will continue scheduled short course IV toradol, maintained on lidoacine patches, tizanidine, medrol dose pack, po/IVnarcotic pain regimen, anti-emetics, bowel regimen, increase her gabapentin. MRI lumbar spine requested however will need to assess patient under stroke she can lay flat prior to attempt. Will have low-dose Versed as needed to which sheis willing to try for anxiety secondary to claustrophobia with MRI. May need to consider consultation with pain management. Will consult PT and OT for evaluation as well as Case management for discharge planning. #2. Chronic normocytic anemia: Admission hemoglobin 11.1, MCV 86.4, baseline hemoglobin similar range, 06/03/2023 hemoglobin 10.3, continue to trend. #3. Hypertension: Continue home regimen including valsartan, spironolactone, amlodipine, clonidine but clarifying, PRN hydralazine. #4. Hyperlipidemia: We will continue patient on statin therapy. #5. Anxiety and depression: We will continue patient home sertraline and hydroxyzine home regimen. #6. PAF: From current list does not appear to be on rate or rhythm agent, also does not appear to be on any anticoagulant therapy. Previously had been on bothXarelto and metoprolol 25 mg p.o. twice daily but does not appear to be taking this currently. If issues arise may restart. #7. Chronic COPD: Not on any chronic regimen, will place on ATC budesonide therapy, PRN albuterol, HOB, IS parameters. #8. Morbid Obesity: Weight loss and lifestyle changes encouraged. #9. Former alcohol abuse: Patient sober for 45 years, encourage continued complete sobriety. #10. Former tobacco use: Encourage continued tobacco cessation. #11. IRIS: BiPAP nightly. #12. DVT prophylaxis: Lovenox. #13. CODE status: Full code. Charges/Coding Visit Charges Inpatient E&M: 80580 Init Hosp L2 06/03/23 1105 <Electronically signed by Moniak Mendoza MD> Cosigner Signature (if applicable): CC: ~ Signed [facility] Work Phone: 1(401) 992-464004-19-2024 History and physical note Author [facility] June 02, 2023 8:18pm Note Date/Time June 02, 2023 6:1 1pm [facility] Medical Records Department [address] [place] [address] H&P Exam - Hospitalist 06/02/23 1811 MR#: [id number] Acct: [id number] Name: SONIA KARIMI Rep #:[id number] : 1955 67 From: Monika Mendoza MD PCP: Dr. Melissa Muhammad MD Status:AD M DIOGENES Location: [facility] [id number] HPI - General General Date of Admission: 06/02/23 Date of Service: 06/02/23 Chief Complaint: Intractable lumbar back pain and right lower extremity radiculopathy. HPI Narrative The patient is a 67 y/o F w/ PMHx: Anxiety and Depression, PAF, IRIS on BIPAP, COPD, Former EtOH abuse, Former tobacco use, Morbid obesity, HTN, HLD, Chronic back pain with chronic radiculopathy and sciatic pain with several prior surgeries noted to be nearly wheelchair bound who [facility] [facility] with persistent low back pain with right lower extremity shooting painfor at least the last 4 weeks seen previously in the emergency room and followedup with her primary care with unfortunately mechanical fall while she was on thetoilet unfortunately getting wedged between the wall and the toilet but no heartdropped onto the floor but unable to safely take care of herself prompting family to bring her in for evaluation and consideration of skilled facility placement. She is currently hunched over in bed and notes that her back discomfort is lessened by this but still 10 of 10, severe, dull constant aching throb and sharp intermittent stabbing pain especially to right lower extremity with movement attempt. Workup in the ED included T97.2, heart rate 84, BP 151/70, respiratory rate 16, 97% on room air, CBC with WBC 14.1, hemoglobin 9.1,MCV 86.4, platelet 370 with left shift, Plain film of the lumbar spine with no evidence of any lumbar spinal fracture or spondylolisthesis, severe multilevel generative disc disease and spondylosis. In the ED patient administered oxycodone 5 mg p.o. x 1. [facility] Medical History (Updated 06/02/23 @ 20:[address] Monika Mendoza MD) Anxiety and depression Atrial fibrillation COPD (chronic obstructive pulmonary disease) Former smoker Herpes zoster History of alcohol abuse Hyperlipidemia Hypertension Morbid obesity Neuropathic pain IRIS treated with BiPAP Osteoarthritis of knees, bilateral Pseudogout of right knee Thoracic spinal stenosis Thyroid nodule Vitamin D deficiency Home Medications atorvastatin 10 mg tablet 10 mg PO DAILY@2200 Cholesterol 12/08/20 [History Last Taken 06/01/23] cholecalciferol (vitamin D3) 25 mcg (1,000 unit) tablet (Vitamin D3) 2,000 unit PO DAILY Supplement 12/08/20 [History Last Taken 06/01/23] clonidine HCl 0.1 mg tablet 0.1 mg PO BID BP 12/08/20 [History Last Taken 06/01/23] diclofenac sodium 1 % topical gel (Voltaren Arthritis Pain) 1 ea topical Q6H Pain 12/08/20 [History Last Taken 06/01/23] sertraline 100 mg tablet 100 mg PO DAILY Mood 12/08/20 [History Last Taken 06/01/23] gabapentin 300 mg capsule 300 mg PO BID Nerve Pain 30 days #60 caps 01/01/21 [Rx Last Taken 06/01/23] methocarbamol 750 mg tablet 750 mg PO Q8H pain 30 days #90 tabs 01/01/21 [Rx Last Taken 06/01/23] potassium chloride 20 mEq tablet,extended release(part/cryst) (Klor-Con M) 20 meq PO DAILYCM 30 days #30 tabs 01/01/21 [Rx Last Taken 06/01/23] hydroxyzine pamoate 25 mg capsule 25 mg PO QHS 30 days #30 caps 01/11/21 [Rx Last Taken 06/01/23] orphenadrine citrate 100 mg tablet,extended release 100 mg PO BID PRN muscle spasm #10 tabs 05/02/23 [Rx Last Taken 06/01/23] acetaminophen 500 mg tablet 1,000 mg PO Q6H PRN Pain Score 1-10 06/02/23 [History Last Taken 06/01/23] amlodipine 10 mg tablet 10 mg PO DAILY 06/02/23 [History Last Taken 06/01/23] diclofenac sodium 100 mg tablet,extended release 24 hr 100 mg PO DAILY 06/02/23 [History Last Taken 06/01/23] docusate sodium 100 mg capsule 100 mg PO DAILY 06/02/23 [History Last Taken 06/01/23] ketoconazole 2 % topical cream 1 applic topical DAILY 06/02/23 [History Last Taken 06/01/23] oxycodone-acetaminophen 5 mg-325 mg tablet 1 tab PO 4X/DAY PRN PRN pain 06/02/23[History Last Taken 06/02/23] prednisone 10 mg tablet 10 mg PO DAILY STERIOD TAPER 06/02/23 [History Last Taken 06/01/23] spironolactone 25 mg tablet 25 mg PO DAILY 06/02/23 [History Last Taken 06/01/23] valsartan 160 mg tablet 160 mg PO DAILY 06/02/23 [History Last Taken 06/01/23] valsartan 80 mg tablet 80 mg PO DAILY 06/02/23 [History Last Taken 06/01/23] Allergy/AdvReac Type Severity Reaction Status Date / Time hydrocodone [From Vicodin] Allergy Anaphylaxis Verified 06/02/23 16:42 lorazepam [From Ativan] Allergy Hives Verified 06/02/23 16:42 neomycin Allergy Hives Verified 06/02/23 16:42 Family History (Updated 06/02/23 @ 20:[address] Monika Mendoza MD) Mother No problems noted. Father Leukemia Diabetes Surgical History History of adenoidectomy History of back surgery History of back surgery Hx of tonsillectomy Social History (Updated 06/02/23 @ 20:[address] Monika Mendoza MD) household members: family Smoking Status: Former smoker how long ago did patient quit smoking: Quit 45 yrs prior, smoked 1 ppd startingage 19 until quit. alcohol intake: former details: Drank heavily prior, sober x 45 years. substance use type: does not use ROS ROS Narrative Admission Review of Systems: CONSTITUTIONAL: No weight loss, fever, chills, + weakness or fatigue. HEENT: Eyes: No visual loss, blurred vision, double vision or yellow sclerae. Ears, Nose, Throat: No hearing loss, sneezing, congestion, runny nose or sore throat. SKIN: No rash or itching, lesions, wounds. CARDIOVASCULAR: No chest pain, chest pressure or chest discomfort, palpitations,edema, orthopnea, syncopal events. RESPIRATORY: No shortness of breath, cough or sputum, wheezing, hemoptysis. GASTROINTESTINAL: No anorexia, nausea, vomiting or diarrhea, abdominal pain, melena, BRBPR. GENITOURINARY: No dysuria, frequency, urgency or retention. NEUROLOGICAL: Significant debility and weakness secondary to lumbar back pain with right lower extremity radiculopathy. No headache, dizziness, syncope, paralysis, ataxia, focal weakness, change in bowel or bladder control, seizure. MUSCULOSKELETAL: + muscle, back pain, joint pain or stiffness. HEMATOLOGIC: + Chronic anemia. No markedly easy bleeding or bruising. LYMPHATICS: No enlarged nodes. No history of splenectomy. PSYCHIATRIC: + Anxiety and depression. ENDOCRINOLOGIC: No reports of sweating, cold or heat intolerance. No polyuria orpolydipsia. ALLERGIES: No history of asthma, hives, eczema or rhinitis. Vital Signs Vital Signs Vital Signs: 06/02/23 16:36 06/02/23 16:36 Temperature 97.2 F L 97.2 F L Temperature Source Temporal Temporal Pulse Rate 74 84 Respiratory Rate 15 16 Blood Pressure 151/71 H 151/70 H Blood Pressure Mean 97 97 Pulse Ox 96 97 Oxygen Delivery Method Room Air Room Air Weight Weight: 274 lb 4.081 oz Body Mass Index (BMI) 44.2 Physical Exam Narrative Physical Examination: General: Awake, alert, oriented x 3 and cooperative, seated upright hunched overpurposely leaning forward in the ED bed as it causes less pain she notes, rates back pain 10 out of 10. Skin: Normal color, normal turgor, no icterus, no cyanosis. HEENT: AT/NC, EOMI, PERRLA, dry MM, no carotid bruits or JVD noted. Lungs: Diminished, distant, no evidence of any distress, no rales, ronchi or wheezing. Heart: Regular rate and rhythm; no gallop, rub audible. Abdomen: Soft, morbidly obese, NTTP, distant BS, no discern distention or HSM but habitus makes evaluation difficult. Extremities: No cyanosis, no clubbing, no marked peripheral pitting edema noted. Neurological: Patient awake, alert, oriented as noted, cognitive function intact; pupils equally reactive to light and accommodation, cranial nerves grossly normal, moving all 4 extremities except extremely limited especially right lower extremity with shooting pains elicited, no specific focal deficits but difficult exam as severely debilitated, strength severely globally decreased. Psychiatric: Affect appears severely uncomfortable, fatigued, tearful secondary to pain, no acute evidence of depressive or anxiety feelings. Results Lab / Micro Data 06/02/23 17:50 06/02/23 17:50 Labs: Laboratory Results - last 24 hr 06/02/23 17:50: WBC 14.1 H, RBC 4.03 L, Hgb 11.1 L, Hct 34.8 L, MCV 86.4, MCH 27.5, MCHC 31.9 L, RDW Std Deviation 42.9, RDW Coeff of Laila 13.8, Plt Count 370,MPV 9.0, Immature Gran % (Auto) 0.400, Neut % (Auto) 82.4 H, Lymph % (Auto) 8.3 L, Len[place] % (Auto) 7.0, Eos % (Auto) 1.5, Baso % (Auto) 0.4, Absolute Neuts (auto)11.7 H, Absolute Lymphs (auto) 1.18, Nucleated RBC % 0 Assessment & Plan Assessment/Plan (1) Intractable back pain: PLAN: Plan The patient is a 67 y/o F w/ PMHx: Anxiety and Depression, PAF, IRIS on BIPAP, COPD, Former EtOH abuse, Former tobacco use, Morbid obesity, HTN, HLD, Chronic back pain with chronic radiculopathy and sciatic pain with several prior surgeries noted to be nearly wheelchair bound who presents to the [facility] ED on 06/02/2023 with persistent low back pain with right lower extremity shooting painfor at least the last 4 weeks seen previously in the emergency room and followedup with her primary care with unfortunately mechanical fall while she was on thetoilet unfortunately getting wedged between the wall and the toilet but no heartdropped onto the floor but unable to safely take care of herself prompting family to bring her in for evaluation and consideration of skilled facility placement. #1. Adult FTT secondary to Acute Intractable Back Pain lumbar spine with right lower extremity radiculopathy with adult failure to thrive, debility, inability to ambulate: Will admit to [facility], maintain on fall precautions, frequent positioning, initiate IV toradol, lidoacine patches, tizanidine, medrol dose pack, po/IV narcotic pain regimen, anti-emetics, bowel regimen, increase her gabapentin. Will request MRI of the lumbar spine but likely will not be able to perform until marked improvement in pain as she cannot lay flat. Also, significant history of claustrophobia thus need to clarify agents she may have as noted hives allergy to ativan. May need to consider consultation with pain management. Will consult PT and OT for evaluation as well as Case management for discharge planning. #2. Chronic normocytic anemia: Admission hemoglobin 11.1, MCV 86.4, baseline hemoglobin similar range, will continue to trend CBC. #3. Hypertension: Continue home regimen including valsartan, spironolactone, amlodipine, clonidine but clarifying, PRN hydralazine. #4. Hyperlipidemia: We will continue patient on statin therapy. #5. Anxiety and depression: We will continue patient home sertraline and hydroxyzine home regimen. #6. PAF: From current list does not appear to be on rate or rhythm agent, also does not appear to be on any anticoagulant therapy. Previously had been on bothXarelto and metoprolol 25 mg p.o. twice daily but does not appear to be taking this currently. If issues arise may restart. #7. Chronic COPD: Not on any chronic regimen, will place on ATC budesonide therapy, PRN albuterol, HOB, IS parameters. #8. Morbid Obesity: Weight loss and lifestyle changes encouraged. #9. Former alcohol abuse: Patient sober for 45 years, encourage continued complete sobriety. #10. Former tobacco use: Encourage continued tobacco cessation. #11. IRIS: BiPAP nightly. #12. DVT prophylaxis: Lovenox. #13. CODE status: Full code. Charges/Coding Visit Charges Inpatient E&M: 10937 Init Hosp L2 06/02/232017 <Electronically signed by Moniak Mendoza MD> Cosigner Signature (if applicable): CC: Dr. Monika Mendoza MD; Dr. Melissa Muhammad MD~ Signed [facility] Work Phone: 1(805) 523-422104-19-2024 Discharge summary Author Esteban Martinez [facility] June 02, 2023 7:39pm Note Date/Time June 02, 2023 5:0 0pm [facility] Medical Records Department [address] [place] [address] Emergency Department Summary 06/02/23 MR#: [id number] Acct: [id number] Name: SONIA KARIMI Rep #:[id number] : 1955 67 From: Esteban Martinez MD PCP: Dr. Melissa Muhammad MD Status:[facility] Location: [address] History of Present Illness Chief Complaint: Lower Extremity Injury Narrative Narrative: 67-year-old female past medical history of chronic back pain with sciatica, other medical problems presents with low back pain and right lower extremity pain that she has had for at least a month. She was seen in the emergency department, and was told to follow-up with her primary care provider. She also followed up with her previous spine surgeon as she has had 2 back surgeries in the past. She states that her surgeon is with [facility]. She is in a wheelchair as well secondary to her previous back surgeries. She complains of low back pain which is causing her to sleep leaning forward. Today, she got wedged between the wall of her toilet. She did not fall. She lives at home alone, and only has her niece and her friend check on her on occasion. [facility] Medical History Alcohol abuse Anxiety Atrial fibrillation BiPAP (biphasic positive airway pressure) dependence Cellulitis COPD (chronic obstructive pulmonary disease) Debility Depression Former smoker Herpes zoster Hyperlipidemia Hypertension Irregular heart beat Murmur, cardiac Muscle spasm Neuropathic pain Osteoarthritis Osteoarthritis of knees, bilateral Pseudogout of right knee Thoracic spinal stenosis Thyroid nodule Vitamin D deficiency Home Medications atorvastatin 10 mg tablet 10 mg PO DAILY@2200 Cholesterol 12/08/20 [History Last Taken 06/01/23] cholecalciferol (vitamin D3) 25 mcg (1,000 unit) tablet (Vitamin D3) 2,000 unit PO DAILY Supplement 12/08/20 [History Last Taken 06/01/23] clonidine HCl 0.1 mg tablet 0.1 mg PO BID BP 12/08/20 [History Last Taken 06/01/23] diclofenac sodium 1 % topical gel (Voltaren Arthritis Pain) 1 ea topical Q6H Pain 12/08/20 [History Last Taken 06/01/23] sertraline 100 mg tablet 100 mg PO DAILY Mood 12/08/20 [History Last Taken 06/01/23] gabapentin 300 mg capsule 300 mg PO BID Nerve Pain 30 days #60 caps 01/01/21 [Rx Last Taken 06/01/23] methocarbamol 750 mg tablet 750 mg PO Q8H pain 30 days #90 tabs 01/01/21 [Rx Last Taken 06/01/23] potassium chloride 20 mEq tablet,extended release(part/cryst) (Klor-Con M) 20 meq PO DAILYCM 30 days #30 tabs 01/01/21 [Rx Last Taken 06/01/23] hydroxyzine pamoate 25 mg capsule 25 mg PO QHS 30 days #30 caps 01/11/21 [Rx Last Taken 06/01/23] orphenadrine citrate 100 mg tablet,extended release 100 mg PO BID PRN muscle spasm #10 tabs 05/02/23 [Rx Last Taken 06/01/23] acetaminophen 500 mg tablet 1,000 mg PO Q6H PRN Pain Score 1-10 06/02/23 [History Last Taken 06/01/23] amlodipine 10 mg tablet 10 mg PO DAILY 06/02/23 [History Last Taken 06/01/23] diclofenac sodium 100 mg tablet,extended release 24 hr 100 mg PO DAILY 06/02/23 [History Last Taken 06/01/23] docusate sodium 100 mg capsule 100 mg PO DAILY 06/02/23 [History Last Taken 06/01/23] ketoconazole 2 % topical cream 1 applic topical DAILY 06/02/23 [History Last Taken 06/01/23] oxycodone-acetaminophen 5 mg-325 mg tablet 1 tab PO 4X/DAY PRN PRN pain 06/02/23[History Last Taken 06/02/23] prednisone 10 mg tablet 10 mg PO DAILY STERIOD TAPER 06/02/23 [History Last Taken 06/01/23] spironolactone 25 mg tablet 25 mg PO DAILY 06/02/23 [History Last Taken 06/01/23] valsartan 160 mg tablet 160 mg PO DAILY 06/02/23 [History Last Taken 06/01/23] valsartan 80 mg tablet 80 mg PO DAILY 06/02/23 [History Last Taken 06/01/23] Allergy/AdvReac Type Severity Reaction Status Date / Time hydrocodone [From Vicodin] Allergy Anaphylaxis Verified 06/02/23 16:42 lorazepam [From Ativan] Allergy Hives Verified 06/02/23 16:42 neomycin Allergy Hives Verified 06/02/23 16:42 Surgical History History of adenoidectomy History of back surgery History of back surgery Hx of tonsillectomy Social History household members: family Smoking Status: Former smoker alcohol intake: never substance use type: does not use ROS ROS ED ROS Narrative Constitutional: No fever, no chills. HEENT: No sore throat. No neck pain. No loss of vision. No rhinorrhea. Cardiovascular: No chest pain. No palpitations. No pedal edema. Respiratory: No cough, no shortness of breath. Abdominal: No abdominal pain. No nausea. No vomiting. Genitourinary: No dysuria. No hematuria. Musculoskeletal: No myalgias. No arthralgias. Neurologic: No headaches. No dizziness. No lightheadedness. Chronic low back pain with radiation down right leg. Skin: No rash. No change in color. Psychiatric: No depression. No anxiety. EXAM Physical Exam Narrative Exam Narrative: Afebrile. Vital signs noted. HEENT: Normocephalic. Atraumatic. PERRL, EOMI. Neck soft and supple. No pointtenderness or step off. Cardiovascular: Regular rate and rhythm. No murmurs, rubs, or gallops appreciated. Respiratory: No tachypnea. Lungs clear to auscultation bilaterally. Gastrointestinal: Abdomen soft, obese, nontender, with normoactive bowel sounds. No rebound or guarding. Neurological: Awake. Alert. Nonfocal, nonlateralizing. Skin: No rash. Normal color. No pallor. Musculoskeletal: No pedal edema. Able to wiggle toes bilaterally. Able to flexand extend bilateral hips. Needs some assistance in straightening out right leg. Const Vital Signs: 06/02/23 16:36 06/02/23 16:36 Temperature 97.2 F L 97.2 F L Temperature Source Temporal Temporal Pulse Rate 74 84 Respiratory Rate 15 16 Blood Pressure 151/71 H 151/70 H Blood Pressure Mean 97 97 Pulse Ox 96 97 Oxygen Delivery Method Room Air Room Air MDM MDM MDM Narrative Medical decision making narrative: I reviewed the patient's prior records. She had also been on her for to orthospine here during her last visit. She has been seen for adult failure to thrive as well. She states she is not doing well at home, and her niece is concerned about her safety they do not feel like she can go home. She wants to be admitted to a rehab facility, hopefully here is where she would like to be placed. I will obtain baseline laboratories including CBC and CMP and UA. She states that she did not take her pain medications this morning and she is on oxycodone and she believes Norflex for her pain. She was given 1 oral oxycodonehere for analgesia. I will discuss the patient with the hospitalist for observation for placement. She is in stable condition. I reviewed her medical screening labs and she has a leukocytosis of 14.1 which Ithink is nonspecific, hemoglobin stable at 11.1, hematocrit 34.8, platelet countnormal at 370. Electrolyte panel is grossly unremarkable except for BUN of 28 and a normal creatinine of 0.62. Urinalysis is negative for infection with 0-5 WBCs, I do not feel antibiotics are indicated. X-rays were obtained of the lumbar spine and interpreted by myself independently as no acute fracture, thereare chronic changes noted. Multilevel degenerative disc disease noted as well. I reviewed the radiology report which confirms my independent interpretation. At this point in time, I discussed the patient with Dr. Monika Mendoza for observation on the medical surgical floor. Patient is in stable condition. History & Record Review Discussion w/independent historian: Patient and Family Additional record(s) reviewed:: Prior labs Lab Data Attestation: I reviewed the patient's lab results. Labs: Laboratory Results - last 24 hr 06/02/23 17:50 WBC 14.1 H RBC 4.03 L Hgb 11.1 L Hct 34.8 L MCV 86.4 MCH 27.5 MCHC 31.9 L RDW Std Deviation 42.9 RDW Coeff of Laila 13.8 Plt Count 370 MPV 9.0 Immature Gran % (Auto) 0.400 Neut % (Auto) 82.4 H Lymph % (Auto) 8.3 L Lenoir % (Auto) 7.0 Eos % (Auto) 1.5 Baso % (Auto) 0.4 Absolute Neuts (auto) 11.7 H Absolute Lymphs (auto) 1.18 Nucleated RBC % 0 Sodium 139 Potassium 4.4 Chloride 106 Carbon Dioxide 25.0 Anion Gap 8 BUN 28 H Creatinine 0.62 Estim Creat Clear Calc 89.41 Est GFR (MDRD) Af Amer 123 Est GFR (MDRD) Non-Af 102 BUN/Creatinine Ratio 45.4 H Glucose 104 Calcium 9.4 Total Bilirubin 0.60 AST 54 H ALT 43 Alkaline Phosphatase 105 Total Protein 7.0 Albumin 3.4 Globulin 3.6 Albumin/Globulin Ratio 0.9 Urine Color Yellow Urine Clarity Clear Urine pH 6.0 Ur Specific Wadley 1.020 Urine Protein 30 H Urine Glucose (UA) Normal Urine Ketones 50 H Urine Occult Blood 10 H Urine Nitrite Negative Urine Bilirubin Negative Urine Urobilinogen 1 H Ur Leukocyte Esterase 25 H Urine RBC 0-5 SEEN Urine WBC 0-5 SEEN Ur Squamous Epith Cells 0 SEEN Urine Bacteria RARE Urine Mucus 1+ Discharge Plan Dx/Rx/DC Orders Clinical Impression: At high risk for falls, Chronic back pain, Adult failure to thrive Disposition Disposition: Acute Care Hospital [facility] What to do if you have Problems For any increased pain, shortness of breath, bleeding, nausea or vomiting, chestpain, or any unexpected problems, contact your Primary Care Provider. Call [facility] ([phone]) or report to the closest Emergency Room. Call 911 if necessary. 06/02/231938 <Electronically signed by Esteban Martinez MD> Cosigner Signature (if applicable): CC: Dr. Melissa Muhammad MD ~ Signed [facility] Work Phone: 1(917) 464-330004-19-2024 History and physical note Author Monika Mendoza [facility] June 02, 2023 8:18pm Note Date/Time June 02, 2023 6:1 1pm [facility] Medical Records Department [address] [place] [address] H&P Exam - Hospitalist 06/02/23 1811 MR#: [id number] Acct: [id number] Name: SONIA KARIMI Rep #:[id number] : 1955 67 From: Monika Mendoza MD PCP: Dr. Melissa Muhammad MD Status:[facility] Location: [place] [address]-1 HPI - General General Date of Admission: 06/02/23 Date of Service: 06/02/23 Chief Complaint: Intractable lumbar back pain and right lower extremity radiculopathy. HPI Narrative The patient is a 67 y/o F w/ PMHx: Anxiety and Depression, PAF, IRIS on BIPAP, COPD, Former EtOH abuse, Former tobacco use, Morbid obesity, HTN, HLD, Chronic back pain with chronic radiculopathy and sciatic pain with several prior surgeries noted to be nearly wheelchair bound who presents to the [facility] ED on 06/02/2023 with persistent low back pain with right lower extremity shooting painfor at least the last 4 weeks seen previously in the emergency room and followedup with her primary care with unfortunately mechanical fall while she was on thetoilet unfortunately getting wedged between the wall and the toilet but no heartdropped onto the floor but unable to safely take care of herself prompting family to bring her in for evaluation and consideration of skilled facility placement. She is currently hunched over in bed and notes that her back discomfort is lessened by this but still 10 of 10, severe, dull constant aching throb and sharp intermittent stabbing pain especially to right lower extremity with movement attempt. Workup in the ED included T97.2, heart rate 84, BP 151/70, respiratory rate 16, 97% on room air, CBC with WBC 14.1, hemoglobin 9.1,MCV 86.4, platelet 370 with left shift, Plain film of the lumbar spine with no evidence of any lumbar spinal fracture or spondylolisthesis, severe multilevel generative disc disease and spondylosis. In the ED patient administered oxycodone 5 mg p.o. x 1. [facility] Medical History (Updated 06/02/23 @ 20:[address] Monika Mendoza MD) Anxiety and depression Atrial fibrillation COPD (chronic obstructive pulmonary disease) Former smoker Herpes zoster History of alcohol abuse Hyperlipidemia Hypertension Morbid obesity Neuropathic pain IRIS treated with BiPAP Osteoarthritis of knees, bilateral Pseudogout of right knee Thoracic spinal stenosis Thyroid nodule Vitamin D deficiency Home Medications atorvastatin 10 mg tablet 10 mg PO DAILY@2200 Cholesterol 12/08/20 [History Last Taken 06/01/23] cholecalciferol (vitamin D3) 25 mcg (1,000 unit) tablet (Vitamin D3) 2,000 unit PO DAILY Supplement 12/08/20 [History Last Taken 06/01/23] clonidine HCl 0.1 mg tablet 0.1 mg PO BID BP 12/08/20 [History Last Taken 06/01/23] diclofenac sodium 1 % topical gel (Voltaren Arthritis Pain) 1 ea topical Q6H Pain 12/08/20 [History Last Taken 06/01/23] sertraline 100 mg tablet 100 mg PO DAILY Mood 12/08/20 [History Last Taken 06/01/23] gabapentin 300 mg capsule 300 mg PO BID Nerve Pain 30 days #60 caps 01/01/21 [Rx Last Taken 06/01/23] methocarbamol 750 mg tablet 750 mg PO Q8H pain 30 days #90 tabs 01/01/21 [Rx Last Taken 06/01/23] potassium chloride 20 mEq tablet,extended release(part/cryst) (Klor-Con M) 20 meq PO DAILYCM 30 days #30 tabs 01/01/21 [Rx Last Taken 06/01/23] hydroxyzine pamoate 25 mg capsule 25 mg PO QHS 30 days #30 caps 01/11/21 [Rx Last Taken 06/01/23] orphenadrine citrate 100 mg tablet,extended release 100 mg PO BID PRN muscle spasm #10 tabs 05/02/23 [Rx Last Taken 06/01/23] acetaminophen 500 mg tablet 1,000 mg PO Q6H PRN Pain Score 1-10 06/02/23 [History Last Taken 06/01/23] amlodipine 10 mg tablet 10 mg PO DAILY 06/02/23 [History Last Taken 06/01/23] diclofenac sodium 100 mg tablet,extended release 24 hr 100 mg PO DAILY 06/02/23 [History Last Taken 06/01/23] docusate sodium 100 mg capsule 100 mg PO DAILY 06/02/23 [History Last Taken 06/01/23] ketoconazole 2 % topical cream 1 applic topical DAILY 06/02/23 [History Last Taken 06/01/23] oxycodone-acetaminophen 5 mg-325 mg tablet 1 tab PO 4X/DAY PRN PRN pain 06/02/23[History Last Taken 06/02/23] prednisone 10 mg tablet 10 mg PO DAILY STERIOD TAPER 06/02/23 [History Last Taken 06/01/23] spironolactone 25 mg tablet 25 mg PO DAILY 06/02/23 [History Last Taken 06/01/23] valsartan 160 mg tablet 160 mg PO DAILY 06/02/23 [History Last Taken 06/01/23] valsartan 80 mg tablet 80 mg PO DAILY 06/02/23 [History Last Taken 06/01/23] Allergy/AdvReac Type Severity Reaction Status Date / Time hydrocodone [From Vicodin] Allergy Anaphylaxis Verified 06/02/23 16:42 lorazepam [From Ativan] Allergy Hives Verified 06/02/23 16:42 neomycin Allergy Hives Verified 06/02/23 16:42 Family History (Updated 06/02/23 @ 20:[address] Monika Mendoza MD) Mother No problems noted. Father Leukemia Diabetes Surgical History History of adenoidectomy History of back surgery History of back surgery Hx of tonsillectomy Social History (Updated 06/02/23 @ 20:[address] Monika Mendoza MD) household members: family Smoking Status: Former smoker how long ago did patient quit smoking: Quit 45 yrs prior, smoked 1 ppd startingage 19 until quit. alcohol intake: former details: Drank heavily prior, sober x 45 years. substance use type: does not use ROS ROS Narrative Admission Review of Systems: CONSTITUTIONAL: No weight loss, fever, chills, + weakness or fatigue. HEENT: Eyes: No visual loss, blurred vision, double vision or yellow sclerae. Ears, Nose, Throat: No hearing loss, sneezing, congestion, runny nose or sore throat. SKIN: No rash or itching, lesions, wounds. CARDIOVASCULAR: No chest pain, chest pressure or chest discomfort, palpitations,edema, orthopnea, syncopal events. RESPIRATORY: No shortness of breath, cough or sputum, wheezing, hemoptysis. GASTROINTESTINAL: No anorexia, nausea, vomiting or diarrhea, abdominal pain, melena, BRBPR. GENITOURINARY: No dysuria, frequency, urgency or retention. NEUROLOGICAL: Significant debility and weakness secondary to lumbar back pain with right lower extremity radiculopathy. No headache, dizziness, syncope, paralysis, ataxia, focal weakness, change in bowel or bladder control, seizure. MUSCULOSKELETAL: + muscle, back pain, joint pain or stiffness. HEMATOLOGIC: + Chronic anemia. No markedly easy bleeding or bruising. LYMPHATICS: No enlarged nodes. No history of splenectomy. PSYCHIATRIC: + Anxiety and depression. ENDOCRINOLOGIC: No reports of sweating, cold or heat intolerance. No polyuria orpolydipsia. ALLERGIES: No history of asthma, hives, eczema or rhinitis. Vital Signs Vital Signs Vital Signs: 06/02/23 16:36 06/02/23 16:36 Temperature 97.2 F L 97.2 F L Temperature Source Temporal Temporal Pulse Rate 74 84 Respiratory Rate 15 16 Blood Pressure 151/71 H 151/70 H Blood Pressure Mean 97 97 Pulse Ox 96 97 Oxygen Delivery Method Room Air Room Air Weight Weight: 274 lb 4.081 oz Body Mass Index (BMI) 44.2 Physical Exam Narrative Physical Examination: General: Awake, alert, oriented x 3 and cooperative, seated upright hunched overpurposely leaning forward in the ED bed as it causes less pain she notes, rates back pain 10 out of 10. Skin: Normal color, normal turgor, no icterus, no cyanosis. HEENT: AT/NC, EOMI, PERRLA, dry MM, no carotid bruits or JVD noted. Lungs: Diminished, distant, no evidence of any distress, no rales, ronchi or wheezing. Heart: Regular rate and rhythm; no gallop, rub audible. Abdomen: Soft, morbidly obese, NTTP, distant BS, no discern distention or HSM but habitus makes evaluation difficult. Extremities: No cyanosis, no clubbing, no marked peripheral pitting edema noted. Neurological: Patient awake, alert, oriented as noted, cognitive function intact; pupils equally reactive to light and accommodation, cranial nerves grossly normal, moving all 4 extremities except extremely limited especially right lower extremity with shooting pains elicited, no specific focal deficits but difficult exam as severely debilitated, strength severely globally decreased. Psychiatric: Affect appears severely uncomfortable, fatigued, tearful secondary to pain, no acute evidence of depressive or anxiety feelings. Results Lab / Micro Data 06/02/23 17:50 06/02/23 17:50 Labs: Laboratory Results - last 24 hr 06/02/23 17:50: WBC 14.1 H, RBC 4.03 L, Hgb 11.1 L, Hct 34.8 L, MCV 86.4, MCH 27.5, MCHC 31.9 L, RDW Std Deviation 42.9, RDW Coeff of Laila 13.8, Plt Count 370,MPV 9.0, Immature Gran % (Auto) 0.400, Neut % (Auto) 82.4 H, Lymph % (Auto) 8.3 L, Lenoir % (Auto) 7.0, Eos % (Auto) 1.5, Baso % (Auto) 0.4, Absolute Neuts (auto)11.7 H, Absolute Lymphs (auto) 1.18, Nucleated RBC % 0 Assessment & Plan Assessment/Plan (1) Intractable back pain: PLAN: Plan The patient is a 67 y/o F w/ PMHx: Anxiety and Depression, PAF, IRIS on BIPAP, COPD, Former EtOH abuse, Former tobacco use, Morbid obesity, HTN, HLD, Chronic back pain with chronic radiculopathy and sciatic pain with several prior surgeries noted to be nearly wheelchair bound who presents to the [facility] ED on 06/02/2023 with persistent low back pain with right lower extremity shooting painfor at least the last 4 weeks seen previously in the emergency room and followedup with her primary care with unfortunately mechanical fall while she was on thetoilet unfortunately getting wedged between the wall and the toilet but no heartdropped onto the floor but unable to safely take care of herself prompting family to bring her in for evaluation and consideration of skilled facility placement. #1. Adult FTT secondary to Acute Intractable Back Pain lumbar spine with right lower extremity radiculopathy with adult failure to thrive, debility, inability to ambulate: Will admit to [facility], maintain on fall precautions, frequent positioning, initiate IV toradol, lidoacine patches, tizanidine, medrol dose pack, po/IV narcotic pain regimen, anti-emetics, bowel regimen, increase her gabapentin. Will request MRI of the lumbar spine but likely will not be able to perform until marked improvement in pain as she cannot lay flat. Also, significant history of claustrophobia thus need to clarify agents she may have as noted hives allergy to ativan. May need to consider consultation with pain management. Will consult PT and OT for evaluation as well as Case management for discharge planning. #2. Chronic normocytic anemia: Admission hemoglobin 11.1, MCV 86.4, baseline hemoglobin similar range, will continue to trend CBC. #3. Hypertension: Continue home regimen including valsartan, spironolactone, amlodipine, clonidine but clarifying, PRN hydralazine. #4. Hyperlipidemia: We will continue patient on statin therapy. #5. Anxiety and depression: We will continue patient home sertraline and hydroxyzine home regimen. #6. PAF: From current list does not appear to be on rate or rhythm agent, also does not appear to be on any anticoagulant therapy. Previously had been on bothXarelto and metoprolol 25 mg p.o. twice daily but does not appear to be taking this currently. If issues arise may restart. #7. Chronic COPD: Not on any chronic regimen, will place on ATC budesonide therapy, PRN albuterol, HOB, IS parameters. #8. Morbid Obesity: Weight loss and lifestyle changes encouraged. #9. Former alcohol abuse: Patient sober for 45 years, encourage continued complete sobriety. #10. Former tobacco use: Encourage continued tobacco cessation. #11. IRIS: BiPAP nightly. #12. DVT prophylaxis: Lovenox. #13. CODE status: Full code. Charges/Coding Visit Charges Inpatient E&M: 09274 Init Hosp L2 06/02/232017 <Electronically signed by Monika Mendoza MD> Cosigner Signature (if applicable): CC: Dr. Monika Mendoza MD; Dr. Melissa Muhammad MD~ Signed [facility] Work Phone: [phone]) 118-211304-19-2024 Discharge summary Author Esteban Martinez [facility] June 02, 2023 7:39pm Note Date/Time June 02, 2023 5:0 0pm [facility] Medical Records Department [address] [place] [address] Emergency Department Summary 06/02/23 MR#: [id number] Acct: [id number] Name: SONIA KARIMI Rep #:[id number] : 1955 67 From: Esteban Martinez MD PCP: Dr. Melissa Muhammad MD Status:JOSE Lemus DIOGENES Location: TN3 [id number] HPI History of Present Illness Chief Complaint: Lower Extremity Injury Narrative Narrative: 67-year-old female past medical history of chronic back pain with sciatica, other medical problems presents with low back pain and right lower extremity pain that she has had for at least a month. She was seen in the emergency department, and was told to follow-up with her primary care provider. She also followed up with her previous spine surgeon as she has had 2 back surgeries in the past. She states that her surgeon is with [facility]. She is in a wheelchair as well secondary to her previous back surgeries. She complains of low back pain which is causing her to sleep leaning forward. Today, she got wedged between the wall of her toilet. She did not fall. She lives at home alone, and only has her niece and her friend check on her on occasion. [facility] Medical History Alcohol abuse Anxiety Atrial fibrillation BiPAP (biphasic positive airway pressure) dependence Cellulitis COPD (chronic obstructive pulmonary disease) Debility Depression Former smoker Herpes zoster Hyperlipidemia Hypertension Irregular heart beat Murmur, cardiac Muscle spasm Neuropathic pain Osteoarthritis Osteoarthritis of knees, bilateral Pseudogout of right knee Thoracic spinal stenosis Thyroid nodule Vitamin D deficiency Home Medications atorvastatin 10 mg tablet 10 mg PO DAILY@2200 Cholesterol 12/08/20 [History Last Taken 06/01/23] cholecalciferol (vitamin D3) 25 mcg (1,000 unit) tablet (Vitamin D3) 2,000 unit PO DAILY Supplement 12/08/20 [History Last Taken 06/01/23] clonidine HCl 0.1 mg tablet 0.1 mg PO BID BP 12/08/20 [History Last Taken 06/01/23] diclofenac sodium 1 % topical gel (Voltaren Arthritis Pain) 1 ea topical Q6H Pain 12/08/20 [History Last Taken 06/01/23] sertraline 100 mg tablet 100 mg PO DAILY Mood 12/08/20 [History Last Taken 06/01/23] gabapentin 300 mg capsule 300 mg PO BID Nerve Pain 30 days #60 caps 01/01/21 [Rx Last Taken 06/01/23] methocarbamol 750 mg tablet 750 mg PO Q8H pain 30 days #90 tabs 01/01/21 [Rx Last Taken 06/01/23] potassium chloride 20 mEq tablet,extended release(part/cryst) (Klor-Con M) 20 meq PO DAILYCM 30 days #30 tabs 01/01/21 [Rx Last Taken 06/01/23] hydroxyzine pamoate 25 mg capsule 25 mg PO QHS 30 days #30 caps 01/11/21 [Rx Last Taken 06/01/23] orphenadrine citrate 100 mg tablet,extended release 100 mg PO BID PRN muscle spasm #10 tabs 05/02/23 [Rx Last Taken 06/01/23] acetaminophen 500 mg tablet 1,000 mg PO Q6H PRN Pain Score 1-10 06/02/23 [History Last Taken 06/01/23] amlodipine 10 mg tablet 10 mg PO DAILY 06/02/23 [History Last Taken 06/01/23] diclofenac sodium 100 mg tablet,extended release 24 hr 100 mg PO DAILY 06/02/23 [History Last Taken 06/01/23] docusate sodium 100 mg capsule 100 mg PO DAILY 06/02/23 [History Last Taken 06/01/23] ketoconazole 2 % topical cream 1 applic topical DAILY 06/02/23 [History Last Taken 06/01/23] oxycodone-acetaminophen 5 mg-325 mg tablet 1 tab PO 4X/DAY PRN PRN pain 06/02/23[History Last Taken 06/02/23] prednisone 10 mg tablet 10 mg PO DAILY STERIOD TAPER 06/02/23 [History Last Taken 06/01/23] spironolactone 25 mg tablet 25 mg PO DAILY 06/02/23 [History Last Taken 06/01/23] valsartan 160 mg tablet 160 mg PO DAILY 06/02/23 [History Last Taken 06/01/23] valsartan 80 mg tablet 80 mg PO DAILY 06/02/23 [History Last Taken 06/01/23] Allergy/AdvReac Type Severity Reaction Status Date / Time hydrocodone [From Vicodin] Allergy Anaphylaxis Verified 06/02/23 16:42 lorazepam [From Ativan] Allergy Hives Verified 06/02/23 16:42 neomycin Allergy Hives Verified 06/02/23 16:42 Surgical History History of adenoidectomy History of back surgery History of back surgery Hx of tonsillectomy Social History household members: family Smoking Status: Former smoker alcohol intake: never substance use type: does not use ROS ROS ED ROS Narrative Constitutional: No fever, no chills. HEENT: No sore throat. No neck pain. No loss of vision. No rhinorrhea. Cardiovascular: No chest pain. No palpitations. No pedal edema. Respiratory: No cough, no shortness of breath. Abdominal: No abdominal pain. No nausea. No vomiting. Genitourinary: No dysuria. No hematuria. Musculoskeletal: No myalgias. No arthralgias. Neurologic: No headaches. No dizziness. No lightheadedness. Chronic low back pain with radiation down right leg. Skin: No rash. No change in color. Psychiatric: No depression. No anxiety. EXAM Physical Exam Narrative Exam Narrative: Afebrile. Vital signs noted. HEENT: Normocephalic. Atraumatic. PERRL, EOMI. Neck soft and supple. No pointtenderness or step off. Cardiovascular: Regular rate and rhythm. No murmurs, rubs, or gallops appreciated. Respiratory: No tachypnea. Lungs clear to auscultation bilaterally. Gastrointestinal: Abdomen soft, obese, nontender, with normoactive bowel sounds. No rebound or guarding. Neurological: Awake. Alert. Nonfocal, nonlateralizing. Skin: No rash. Normal color. No pallor. Musculoskeletal: No pedal edema. Able to wiggle toes bilaterally. Able to flexand extend bilateral hips. Needs some assistance in straightening out right leg. Const Vital Signs: 06/02/23 16:36 06/02/23 16:36 Temperature 97.2 F L 97.2 F L Temperature Source Temporal Temporal Pulse Rate 74 84 Respiratory Rate 15 16 Blood Pressure 151/71 H 151/70 H Blood Pressure Mean 97 97 Pulse Ox 96 97 Oxygen Delivery Method Room Air Room Air MDM MDM MDM Narrative Medical decision making narrative: I reviewed the patient's prior records. She had also been on her for to orthospine here during her last visit. She has been seen for adult failure to thrive as well. She states she is not doing well at home, and her niece is concerned about her safety they do not feel like she can go home. She wants to be admitted to a rehab facility, hopefully here is where she would like to be placed. I will obtain baseline laboratories including CBC and CMP and UA. She states that she did not take her pain medications this morning and she is on oxycodone and she believes Norflex for her pain. She was given 1 oral oxycodonehere for analgesia. I will discuss the patient with the hospitalist for observation for placement. She is in stable condition. I reviewed her medical screening labs and she has a leukocytosis of 14.1 which Ithink is nonspecific, hemoglobin stable at 11.1, hematocrit 34.8, platelet countnormal at 370. Electrolyte panel is grossly unremarkable except for BUN of 28 and a normal creatinine of 0.62. Urinalysis is negative for infection with 0-5 WBCs, I do not feel antibiotics are indicated. X-rays were obtained of the lumbar spine and interpreted by myself independently as no acute fracture, thereare chronic changes noted. Multilevel degenerative disc disease noted as well. I reviewed the radiology report which confirms my independent interpretation. At this point in time, I discussed the patient with Dr. Monika Mendoza for observation on the medical surgical floor. Patient is in stable condition. History & Record Review Discussion w/independent historian: Patient and Family Additional record(s) reviewed:: Prior labs Lab Data Attestation: I reviewed the patient's lab results. Labs: Laboratory Results - last 24 hr 06/02/23 17:50 WBC 14.1 H RBC 4.03 L Hgb 11.1 L Hct 34.8 L MCV 86.4 MCH 27.5 MCHC 31.9 L RDW Std Deviation 42.9 RDW Coeff of Laila 13.8 Plt Count 370 MPV 9.0 Immature Gran % (Auto) 0.400 Neut % (Auto) 82.4 H Lymph % (Auto) 8.3 L Lenoir % (Auto) 7.0 Eos % (Auto) 1.5 Baso % (Auto) 0.4 Absolute Neuts (auto) 11.7 H Absolute Lymphs (auto) 1.18 Nucleated RBC % 0 Sodium 139 Potassium 4.4 Chloride 106 Carbon Dioxide 25.0 Anion Gap 8 BUN 28 H Creatinine 0.62 Estim Creat Clear Calc 89.41 Est GFR (MDRD) Af Amer 123 Est GFR (MDRD) Non-Af 102 BUN/Creatinine Ratio 45.4 H Glucose 104 Calcium 9.4 Total Bilirubin 0.60 AST 54 H ALT 43 Alkaline Phosphatase 105 Total Protein 7.0 Albumin 3.4 Globulin 3.6 Albumin/Globulin Ratio 0.9 Urine Color Yellow Urine Clarity Clear Urine pH 6.0 Ur Specific Wadley 1.020 Urine Protein 30 H Urine Glucose (UA) Normal Urine Ketones 50 H Urine Occult Blood 10 H Urine Nitrite Negative Urine Bilirubin Negative Urine Urobilinogen 1 H Ur Leukocyte Esterase 25 H Urine RBC 0-5 SEEN Urine WBC 0-5 SEEN Ur Squamous Epith Cells 0 SEEN Urine Bacteria RARE Urine Mucus 1+ Discharge Plan Dx/Rx/DC Orders Clinical Impression: At high risk for falls, Chronic back pain, Adult failure to thrive Disposition Disposition: Acute Care Hospital [facility] What to do if you have Problems For any increased pain, shortness of breath, bleeding, nausea or vomiting, chestpain, or any unexpected problems, contact your Primary Care Provider. Call [facility] ([phone]) or report to the closest Emergency Room. Call 911 if necessary. 06/02/231938 <Electronically signed by Esteban Martinez MD> Cosigner Signature (if applicable): CC: Dr. Melissa Muhammad MD ~ Signed [facility] Work Phone: [phone] 276-306904-16-2024 History of Present illness Narrative* Riddhi Sanchez PA-C - 05/30/2023 1:00 PM EDT Images from the original note were not included. SPINE SURGERY ESTABLISHED This is a virtual visit using [employer] Video Visit. It required patient- provider interaction for the medical decision making as documented below. I have communicated my name and active licensure. The patient's identity and physical location wereverified at the time of this visit. Either the patient or their legal manufacturers service representative has been informed of the risks and benefits of -- and alternatives to -- treatment through a remote evaluation andconsents to proceed with the evaluation remotely. DATE OF SERVICE: 05/30/2023 DATE OF LAST VISIT: 07/27/21 SUBJECTIVE: HPI:Sonia Karimi is a 67 year old female presenting alone. Patient of Dr Cook. Status post: 1.) T9-11 decompression with T9/10 and T10/11 bilateral facetectomies and T9 and T10 complete laminectomies 2.) T9-11 posterior segmental instrumentation (low-profile Finn system) 3.) Use of autograft for arthrodesis T9-T11 with Dr Cook on 11/24/2020 for thoracic stenosis with myelopathy. She reports that she continues to be nonambulatory. The insurance stopped paying for physical therapy. Her last visit was December 2022 With the help of physical therapist she was able to get out of the wheelchair hold on to the walkerand with the assist of a physical therapist she was able to ambulate with a walker. On her own however she is unable to do that due to her weakness and balance. She reports that she has not been having any thoracic pain the sensation in her left leg to heat and cold has returned and she is now able to feel that although muted. She reports the sensation of heaviness that she felt in her legs did improve. Unfortunately on 05/02/2023 without injury she started with pain that has been excruciating radiating down from her right buttock down the posterior aspect of her right thigh calf. Minimal lower back pain. She did go to the emergency room on 05/02/2023 at which time an x-ray of lower lower back and hips was done She was found to have no fractures and discharged home. She did see her primary care provider on 05/09/2023 who started her on a round of prednisone Norflex and Percocet. She reports the high dose of prednisone was helpful but as she decreased the dose the pain returnedto baseline Since 05/02/2023 she is now feeling a heaviness in the legs again. No saddle anesthesia however she has noted that even though she feels the urgency to urinate when she goes to the bathroom there is not much urine coming out. She reports she has not had a BM for the past couple days She does mention that the left leg really does not want to listen to what her mind is telling her to do She reports currently she is not sure what her weight is as she has not been weighed since she was released from a rehab facility in 2021. She recalls her last weight to be 284 pounds PAIN EVALUATION 05/29/2023 1026 Pain Level: 9 Pain Location: Hip-Right Description: Sharp;Shooting;Spasm;Stabbing;Tightness Duration Amount of Time: 100 Duration Units: Weeks Frequency: Continuous Intervention/Comfort measure: Medication;Reposition;Heat Comments: Stabbing pain from hip to back of thigh to outside calf Pain Radiation: down the right thigh and below the right knee Aggravating Factors: everything Alleviating Factors: None Pain Ratio: Pain in the leg(s) is greater than in the back AMBULATORY STATUS: Minimal Ambulation/Wheelchair Bound ANTIPLATELET OR ANTICOAGULATION STATUS: No PREVIOUS CONSERVATIVE TREATMENTS: Muscle Relaxants Opioids Oral Steroids REVIEW OF SYSTEMS: GENERAL: No weight loss or malaise MUSCULOSKELETAL: Negative for joint pain, swelling or muscle pain NEURO: No history of headaches, syncope, paralysis, seizures or tremors MEDICATIONS: oxyCODONE-acetaminophen (PERCOCET) 5-325 mg tablet Take 1 tablet by mouth four times a day as needed for pain for up to 7 days. diazePAM (VALIUM) 5 mg tablet 1 tab by mouth 1 hour before the MRI, 1 tab by mouth 30 min before the MRI if needed, 1 tab by mouth just before the MRI if needed predniSONE (DELTASONE) 10 mg tablet Take 40 mg x 5 days, 20 mg x 5 days, 10 mg x 5 days. Take with breakfast orphenadrine ER (NORFLEX) 100 mg tablet Take 1 tablet by mouth two times a day as needed for musclespasm or pain. docusate sodium (COLACE) 100 mg capsule Take 1 capsule by mouth two times a day as needed for constipation. Take this to avoid constipation with oxycodone use diclofenac XR (VOLTAREN-XR) 100 mg Tb24 TAKE 1 TABLET BY MOUTH DAILY WITH FOOD NEEDED FOR PAIN ketoconazole (NIZORAL) 2 % cream Apply 1 application to affected area once daily. Apply to rash andsurrounding area. On abdomen. May repeat if necessary gabapentin (NEURONTIN) 300 mg capsule Take 1 capsule by mouth two times a day for 180 days. [facility] [employer] spironolactone (ALDACTONE) 25 mg tablet Take 1 tablet by mouth once daily. amLODIPine (NORVASC) 10 mg tablet Take 1 tablet by mouth once daily. atorvastatin (LIPITOR) 10 mg tablet Take 1 tablet by mouth once daily. diclofenac (VOLTAREN) 1 % topical gel Apply 4 g to affected area four times daily. FOR EXTERNAL USEONLY APPLY TO: right knee Use provided dosing card to measure the ordered dose. methocarbamol (ROBAXIN) 750 mg tablet Take 1 tablet by mouth every 8 hours as needed (Muscle spasms). CAUTION: May cause drowsiness. sertraline (ZOLOFT) 100 mg tablet Take 1 tablet by mouth once daily. valsartan (DIOVAN) 160 mg tablet Take 1 tablet by mouth once daily. valsartan (DIOVAN) 80 mg tablet Take one every PM (in addition to 160 mg. Daily in AM). cloNIDine HCl (CATAPRES) 0.1 mg tablet Take 1 tablet by mouth twice daily. acetaminophen (TYLENOL) 500 mg tablet Take 500 mg by mouth twice daily as needed for pain. cholecalciferol (VITAMIN D3) 50 mcg (2,000 unit) tablet Take 2,000 Units by mouth once daily. COMPOUNDED PRESCRIPTION BIPAP 1 liter bleed in 12/5 cm. RR 14 Replacement machine with heated humidity. CPAP mask and supplies. Use nightly. Patient Entered Questionnaires 07/27/2021 05/29/2023 Spine Questions Pain Location: Lower back Leg Pain Duration: 6 months - 1 year Less than 1 month Pain over last 6 months: Every day or nearly every day in the past 6 months Symptoms from neck/cervical spine: Yes Yes Employment Status: Working now Working now Involved in law suit/legal claim: No No 07/27/2021 05/29/2023 Neck Questionnaires Benzel Modified LEXI Score 10 (A lower score indicates increased pain and issues.) 9 (A lower score indicates increased pain and issues.) PROMIS Score Percentiles 07/27/2021 05/29/2023 Physical Health Physical Function Percentile 0 0 Sleep Percentile 27* 5 Fatigue Percentile 8 5 Pain Interference Percentile 5 1 07/27/2021 05/29/2023 PROMIS SOCIAL ROLE SCORE Social Role Satisfaction Percentile 12 12 03/02/2022 07/12/2022 05/29/2023 PROMIS Global Health Scale Physical Health Percentile 2 4 1 Mental Health Percentile 3 2 Percentiles provide an indication of how the patient's score ranks in relation to the general population. Higher percentile rankings indicate better function/quality of life. 50th percentile is the average of the general population and indicates half of respondents had a worse score. Descriptive Summary for PROMIS Physical Function T-score = 24 (Percentile 0) Unable - Do chores such as vacuuming or yard work. Much difficulty - Run errands and shop. Much difficulty - Walk about the house. Depression Screenin03/29/2018 07/27/2021 05/29/2023 PHQ-9 Score 4 0 19 03/29/2018 07/27/2021 05/29/2023 PHQ-9 Self-harm Question Question 9 Not at all Not at all Not at all PHQ-9 Self-Harm (Item 9) response options: 0 Not at all 1 Several days 2 More than half the days 3 Nearly every day PHQ-9 Levels: 0-4 No to mild depression 5-9 Mild depression 10-14 Moderate depression 15-19 Moderately severe depression 20-27 Severe depression OBJECTIVE: PHYSICAL EXAM: Ht 5' 6 (1.68m) Wt 284 lb (128.8kg) BMI 45.86 kg/(m^2). GENERAL APPEARANCE: Well nourished, well developed, and no apparent distress. NEURO PSYCH: Patient oriented to person, place, and time. Mood pleasant. Benign affect. DATA REVIEW:Diagnostic tests reviewed for today's visit, films/specimens were personally reviewed by me: Imaging and outside records independently reviewed Images independently reviewed with the patient Lumbar xray report only 05/02/23: No fractures Lumbar spondylosis ASSESSMENT/PLAN (R29.898) Leg weakness, bilateral (primary encounter diagnosis) (M43.24) Fusion of spine of thoracic region (M48.062) Spinal stenosis of lumbar region with neurogenic claudication (M47.14) Spondylosis with myelopathy, thoracic region (M54.16) Lumbar radiculopathy (M54.50) Severe low back pain (M54.41) Acute right-sided back pain with sciatica (E66.01, Z68.42) Class 3 severe obesity due to excess calories without serious comorbidity with body mass index (BMI) of 45.0 to 49.9 in adult Sonia Karimi has a condition that requires further workup. Recommend scoliosis xray, can get laying down. MRI thoracic and lumbar spine to assess for new thoracic cord compression or lumbar disc herniation. 1 time Rx for Oxycodone-acetaminophen. Valium for MRI - she is claustrophobic. Also referred to endocrine weight management program to help with weight loss. She will look into where she can get her most current weight as well. Also recommend outpatient PT to help with strengthening She will also establish care with medical spine provider to help with pain control and potential future lumbar injections pending MRI results Will call with results once imaging is completed and reviewed with Dr Cook 1. Medications: percocet, valium Imaging: Lumbar MRI Without Contrast Symptoms of neuro deficit or red flag symptoms listed in HPI and Thoracic MRI Without Contrast Symptoms of neuro deficit or red flag symptoms listed in HPI and Scoliosis X-Ray Consults: Physical Therapy Medical Spine Endocrine weight management program 2. Follow up: Following above Imaging Ordered: For possible Lumbar Radiculopathy due to leg pain unresponsive to medical management. Thoracic myelopathy The majority of the visit was spent counseling and/or coordinating care for the patient. The patient was counseled regarding obtaining imaging. Total face to face time was 32 minutes. SIGNATURE: Riddhi Sanchez PA-C PATIENT NAME: Sonia Karimi DATE: May 30, 2023 TIME: 1:35 PM PAGER: documented in this encounterBluff[facility]04-10-[facility]24 Miscellaneous Notes* Telephone Encounter - Herminio Alonso PA - 05/24/2023 4:39 PM EDT Called patient regarding wound culture results. The wound culture was susceptible to oxacillin. Patient is currently on Augmentin. She states that her wound is doing much better. It is no longer seeping. Redness and swelling is gone down. Advised to continue medication as prescribed. Follow-up withPCP for wound recheck as discussed at visit. documented in this encounterBluffton Hospital04-08-2024 History of Present illness Narrative* Herminio Alonso PA - 05/22/2023 2:10 PM EDT Images from the original note were not included. This note was created using [employer]. Subjective Sonia Karimi is a 67 year old female. HPI 67-year-old female presents for right hand cat scratch. Patient states that she was breaking upher cats when they were fighting and her cat scratched her arm and hand. She states this occurred 5days ago. Most of the scratches are scabbed over and healing, but she has several scratches on her hand that are not healing. She states she did have some drainage from the areas. She is not 100% sure whether or not her cat bit her in any areas. She denies any fevers. No lymphatic streaking. Still able to move the hand. She has been putting Neosporin on the area and keeping it clean. She states her cat is up-to-date on vaccines. Patient's last tetanus was in 2012. PAST MEDICAL HISTORY Diagnosis Date Cervical polyp Cervical spine disease COPD (chronic obstructive pulmonary disease) (HCC) Hyperlipidemia Hypertension Mild aortic regurgitation repeat echocardiogram [id number] if no other changes Minor depression IRIS (obstructive sleep apnea) Thyroid nodule greater than or equal to 1.5 cm in diameter incidentally noted on imaging study 11/17/2020 b/l nodules. Dominant nodule within the lower pole of the right lobe, measuring up to 6.2 cm, increased in size in the interval. PAST SURGICAL HISTORY Procedure Laterality Date ADENOIDECTOMY PRIMARY <AGE 10 Adenoidectomy PAST SURGICAL HISTORY OF 02/02/2018 neck surgery TONSILLECTOMY PRIMARY/SECONDARY <AGE 10 Tonsillectomy ALLERGIES Ativan [Lorazepam], Neomycin, and Valium [Diazepam] MEDICATIONS predniSONE (DELTASONE) 10 mg tablet Take 40 mg x 5 days, 20 mg x 5 days, 10 mg x 5 days. Take with breakfast orphenadrine ER (NORFLEX) 100 mg tablet Take 1 tablet by mouth two times a day as needed for musclespasm or pain. docusate sodium (COLACE) 100 mg capsule Take 1 capsule by mouth two times a day as needed for constipation. Take this to avoid constipation with oxycodone use diclofenac XR (VOLTAREN-XR) 100 mg Tb24 TAKE 1 TABLET BY MOUTH DAILY WITH FOOD NEEDED FOR PAIN ketoconazole (NIZORAL) 2 % cream Apply 1 application to affected area once daily. Apply to rash andsurrounding area. On abdomen. May repeat if necessary gabapentin (NEURONTIN) 300 mg capsule Take 1 capsule by mouth two times a day for 180 days. [employer] Power Wheelchair spironolactone (ALDACTONE) 25 mg tablet Take 1 tablet by mouth once daily. amLODIPine (NORVASC) 10 mg tablet Take 1 tablet by mouth once daily. atorvastatin (LIPITOR) 10 mg tablet Take 1 tablet by mouth once daily. diclofenac (VOLTAREN) 1 % topical gel Apply 4 g to affected area four times daily. FOR EXTERNAL USEONLY APPLY TO: right knee Use provided dosing card to measure the ordered dose. methocarbamol (ROBAXIN) 750 mg tablet Take 1 tablet by mouth every 8 hours as needed (Muscle spasms). CAUTION: May cause drowsiness. sertraline (ZOLOFT) 100 mg tablet Take 1 tablet by mouth once daily. valsartan (DIOVAN) 160 mg tablet Take 1 tablet by mouth once daily. valsartan (DIOVAN) 80 mg tablet Take one every PM (in addition to 160 mg. Daily in AM). cloNIDine HCl (CATAPRES) 0.1 mg tablet Take 1 tablet by mouth twice daily. acetaminophen (TYLENOL) 500 mg tablet Take 500 mg by mouth twice daily as needed for pain. cholecalciferol (VITAMIN D3) 50 mcg (2,000 unit) tablet Take 2,000 Units by mouth once daily. COMPOUNDED PRESCRIPTION BIPAP 1 liter bleed in 12/5 cm. RR 14 Replacement machine with heated humidity. CPAP mask and supplies. Use nightly. amoxicillin-clavulanate potassium (AUGMENTIN) 875-125 mg per tablet Take 1 tablet by mouth two times a day for 7 days. FAMILY HISTORY Problem Relation Age of Onset Cancer Mother skin cancer Heart Mother atrial fibrillation Cancer Father leukemia Diabetes Father Cancer Sister cancer in situ - breast Diabetes Sister Cancer Paternal Grandmother colon to liver Cancer Paternal Grandfather stomach cancer Social History Tobacco Use Smoking status: Former Years: 3 Types: Cigarettes Smokeless tobacco: Never Tobacco comments: quit prior to 1979 Substance Use Topics Alcohol use: No Drug use: No Review of Systems Constitutional: Negative for chills and fever. HENT: Negative for congestion, ear pain and sore throat. Respiratory: Negative for cough and shortness of breath. Cardiovascular: Negative for chest pain. Gastrointestinal: Negative for diarrhea and vomiting. Skin: Positive for wound. Objective BP 158/76 Pulse 105 Temp 37.1 C (98.7 F) (Tympanic) Resp 18 Wt 124.3 kg (274 lb) SpO2 95% BMI 44.22 kg/m Physical Exam Vitals and nursing note reviewed. Constitutional: General: She is not in acute distress. Appearance: Normal appearance. She is not toxic-appearing. Cardiovascular: Rate and Rhythm: Normal rate and regular rhythm. Pulmonary: Effort: Pulmonary effort is normal. Breath sounds: Normal breath sounds. Lymphadenopathy: Comments: No adenopathy noted. No axillary adenopathy on the right. Skin: General: Skin is warm and dry. Findings: Erythema and wound present. Comments: Patient has multiple cat scratches noted to right forearm and dorsum of hand. Scratches of the forearm are scabbed over and healing. She has some bruising noted around the scratches. She has 3 scratches on dorsum of right hand with surrounding erythema and mild swelling. The wounds are slightly open with some purulence. No abscess or fluctuance. No puncture wounds noted. All appear likescratches. No lymphatic streaking. Normal ROM all digits right hand. 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 Pulses intact. Neurological: Mental Status: She is alert. Assessment and Plan ASSESSMENT/PLAN: 1. Wound infection - ICD9: 958.3, ICD10: T14.8XXA, L08.9 (primary diagnosis) - Begin treatment with Augmentin. Patient unsure if she has any bite wounds. Will cover with Augmentin. -Wound culture pending. - No lymphangetic streaking, this was defined for patient to watch for and to seek medical care immediately if appears - Follow up for recheck in two days - ABSCESS AND WOUND CULTURE WITH GRAM STAIN 2. Cat scratch - ICD9: 919.0, E906.8, ICD10: W55.03XA -See above. -Tetanus updated. -Rx for Augmentin. -No lymphadenopathy or signs of cat scratch fever. - ABSCESS AND WOUND CULTURE WITH GRAM STAIN Diagnosis and treatment plan were discussed and questions were answered to the patient's satisfaction. Pt acknowledged understanding of concepts and follow up plan. Specific signs and symptoms that would indicate the need for higher level of care were discussed in detail warranting prompt ER evaluation. JADE Singer documented in this encounterBl[facility]03-19-2024 Discharge summary Author Indra Thompson [facility] May 02, 2023 8:23am Note Date/Time May 02, 2023 5:5 6am [facility] Medical Records Department [address] [place] [address] Emergency Department Summary 05/02/23 MR#: [id number] Acct: [id number] Name: SONIA KARIMI Rep #:[id number] : 1955 67 From: Indra Thompson MD PCP: Dr. Melissa Muhammad MD Status:RE G ER Location: ED HPI History of Present Illness Chief Complaint: Back Informant: patient Onset/Context/Timing Onset: Days (2-3) Context: Gradual Onset Narrative Narrative: Patient presenting with severe back pain, it is in her right buttock. It radiates down the right lower extremity to about the knee. She denies any saddle anesthesia, new numbness or weakness in her legs, she has a history of peripheral neuropathy bilateral lower extremities chronically since her surgery in her lumbar spine about a year ago; she denies any bowel or bladder dysfunction tonight. She states the pain started as a twinge and is graduallygotten worse for the last couple days. Now any movement makes everything significantly worse. She denies any fevers or chills. She states this is different than the typical back pain that she usually has. She often is in a wheelchair due to her chronic debility and issues with her knees arthritis and back issues. [facility] Medical History Alcohol abuse Anxiety Atrial fibrillation BiPAP (biphasic positive airway pressure) dependence Cellulitis COPD (chronic obstructive pulmonary disease) Debility Depression Former smoker Herpes zoster Hyperlipidemia Hypertension Irregular heart beat Murmur, cardiac Muscle spasm Neuropathic pain Osteoarthritis Osteoarthritis of knees, bilateral Pseudogout of right knee Thoracic spinal stenosis Thyroid nodule Vitamin D deficiency Home Medications amlodipine 5 mg tablet 5 mg PO DAILY BP 12/08/20 [History Last Taken Unknown] atorvastatin 10 mg tablet 10 mg PO DAILY@2200 Cholesterol 12/08/20 [History Last Taken Unknown] cholecalciferol (vitamin D3) 25 mcg (1,000 unit) tablet (Vitamin D3) 2,000 unit PO DAILY Supplement 12/08/20 [History Last Taken Unknown] clonidine HCl 0.1 mg tablet 0.1 mg PO BID BP 12/08/20 [History Last Taken Unknown] diclofenac sodium 1 % topical gel (Voltaren Arthritis Pain) 1 ea topical Q6H Pain 12/08/20 [History Last Taken Unknown] sertraline 100 mg tablet 100 mg PO DAILY Mood 12/08/20 [History Last Taken Unknown] acetaminophen 500 mg tablet 1,000 mg (2 x 500 mg) PO Q6H PRN PRN Pain Score 1- 10#0 tabs 01/01/21 [Rx Last Taken Unknown] betamethasone valerate 0.1 % topical cream 1 applic topical BID #0 grams 01/01/21 [Rx Last Taken Unknown] gabapentin 300 mg capsule 300 mg PO BID Nerve Pain 30 days #60 caps 01/01/21 [Rx Last Taken Unknown] methocarbamol 750 mg tablet 750 mg PO Q8H pain 30 days #90 tabs 01/01/21 [Rx Last Taken Unknown] metoprolol tartrate 25 mg tablet 25 mg PO BID 30 days #60 tabs 01/01/21 [Rx Last Taken Unknown] potassium chloride 20 mEq tablet,extended release(part/cryst) (Klor-Con M) 20 meq PO DAILYCM 30 days #30 tabs 01/01/21 [Rx Last Taken Unknown] rivaroxaban 20 mg tablet (Xarelto) 20 mg PO DINNER@1700 30 days #30 tabs 01/01/21 [Rx Last Taken Unknown] sennosides 8.6 mg tablet (Donna-rakan) 17.2 mg (2 x 8.6 mg) PO BID 30 days #120 tabs 01/01/21 [Rx Last Taken Unknown] cefadroxil 500 mg capsule 1,000 mg (2 x 500 mg) PO BID 2 days #8 caps 01/11/21 [Rx Last Taken Unknown] hydroxyzine pamoate 25 mg capsule 25 mg PO QHS 30 days #30 caps 01/11/21 [Rx Last Taken Unknown] pramipexole 0.25 mg tablet 0.25 mg PO QHS 30 days #30 tabs 01/11/21 [Rx Last Taken Unknown] orphenadrine citrate 100 mg tablet,extended release 100 mg PO BID PRN muscle spasm #10 tabs 05/02/23 [Rx Last Taken Unknown] oxycodone 5 mg tablet 5 - 10 mg (1 - 2 x 5 mg) PO Q6H PRN pain 3 days #20 tabs 05/02/23 [Rx Last Taken Unknown] Allergy/AdvReac Type Severity Reaction Status Date / Time hydrocodone [From Vicodin] Allergy Anaphylaxis Verified 05/02/23 05:40 lorazepam [From Ativan] Allergy Hives Verified 05/02/23 05:40 neomycin Allergy Hives Verified 05/02/23 05:40 Surgical History (Updated 01/19/21 @ 00:01 by Betsy Starks) History of adenoidectomy History of back surgery History of back surgery Hx of tonsillectomy Social History household members: family Smoking Status: Former smoker alcohol intake: never substance use type: does not use ROS ROS ED Constitutional Constitutional ED: Denies chills or fever(s) Gastrointestinal Gastrointestinal: Denies abdominal pain, constipation, fecal incontinence, nausea or vomiting Genitourinary Genitourinary ED: Reports other Details: no urinary retention ; Denies abdominal discomfort or urinary incontinence Musculoskeletal Musculoskeletal: Reports as per HPI and back pain; Denies neck pain Integumentary Denies rash or wounds Neurologic Neurologic: Denies headache(s), paresthesias or weakness EXAM Physical Exam Const Vital Signs: 05/02/23 05:39 05/02/23 07:39 Temperature 98.5 F Temperature Source Temporal Pulse Rate 98 Respiratory Rate 18 Blood Pressure 159/77 H 128/64 H Blood Pressure Mean 104 85 Pulse Ox 99 Oxygen Delivery Method Room Air Positive well nourished, well developed and obese General Appearance ED: well developed and NAD Nutritional Appearance: obese HEENT Negative for trauma or tenderness Eyes PERRL and EOMs intact bilaterally Neck full ROM and supple GI normal to inspection, nondistended, normoactive bowel sounds, soft to palpation and non-tender Back/Spine normal to inspection Back/Spine Narrative: Straight leg raises are negative, the contralateral left leg being raised increases her right buttock pain more than doing the right leg. She is mostly tender at the right ischial tuberosity. Inspection normal here. No midline spine tenderness. Exam is significantly limited due to morbid obesity. Lumbar Spine / Lower Back: ROM limited and straight leg raise negative bilaterally; Negative for lumbar spinal tenderness Extremity normal to inspection, full ROM and no pedal edema Neuro oriented x3 and no sensory deficits noted Sensorium / Orientation: alert Motor Exam: strength 5/5 throughout and clonus absent Deep Tendon Reflexes: Rt Patellar (L4): 0, Lt Patellar (L4): 0, Rt Ankle (S1): 0and Lt Ankle (S1): 0 Deep Tendon Reflexes Back: Rt Patellar (L4): 0, Lt Patellar (L4): 0, Rt Ankle (S1): 0 and Lt Ankle (S1): 0 Plantar Reflex: Downgoing: bilateral Psych mental status grossly normal and thought process normal Psych Narrative: Anxious Skin no rashes or lesions noted and no wounds MDM MDM MDM Narrative Medical decision making narrative: 4 view x-ray series of the lumbosacral spine was obtained, my interpretation shows severe degenerative changes, radiology agrees. 1 view pelvis x-ray was obtained to look at the ischial tuberosity specifically, it does not appear to have any acute radiographically visible bony abnormality. Radiology in agreement here as well. In the meantime, her symptoms were treated initially with morphine and Toradol, she then appeared to be having some pain and spasms as she came back from radiology so we added Norflex which seemed to help more. She is doing better. In reviewing her history, she saw a surgeon at [facility] in [place], she does not want to go back there because it is too far although sheliked him, and was told that there was an area further down in her spine that could potentially require surgery in the future. Therefore I would refer her back to orthospine, she is wanting local resources which were given to her, she was also advised that she could follow-up at the [facility] orthopedic clinic here in [place]. Radiography Diagnostic Testing: Clinical Impression(s) from Imaging Studies Lumbar Spine X-Ray 05/02/23 05:52 IMPRESSION: Degenerative changes of the spine, as detailed above. Loss of the normal lumbar lordosis. Electronically Signed: Francisco Zavaleta MD at 8:01 EDT , Pelvis X-Ray 05/02/23 05:52 IMPRESSION: No definite evidence for acute fracture or dislocation. Electronically Signed: Gillian Husain MD at 7:50 EDT , Discharge Plan Triage Chief Complaint: Back ED Provider: Indra Thompson Dx/Rx/DC Orders Clinical Impression: Acute right-sided low back pain with sciatica Instructions: ED Back Pain (Acute or Chronic), ED Sciatica Prescriptions: New orphenadrine citrate 100 mg tablet extended release 100 mg PO BID PRN (Reason: muscle spasm) Qty: 10 0RF Changed oxycodone 5 mg Tablet 5 - 10 mg PO Q6H PRN (Reason: pain) 3 Days Qty: 20 0RF No Action diclofenac sodium [Voltaren Arthritis Pain] 1 % Gel 1 ea TOPICAL Q6H clonidine HCl 0.1 MG tablet 0.1 mg PO BID atorvastatin 10 MG tablet 10 mg PO DAILY@2200 sertraline 100 MG tablet 100 mg PO DAILY amlodipine 5 MG tablet 5 mg PO DAILY cholecalciferol (vitamin D3) [Vitamin D3] 1,000 UNIT tablet 2,000 unit PO DAILY acetaminophen 500 mg Tablet 1,000 mg PO Q6H PRN PRN (Reason: Pain Score 1-10) Qty: 0 0RF sennosides [Donna-rakan] 8.6 mg Tablet 17.2 mg PO BID 30 Days Qty: 120 0RF potassium chloride [Klor-Con M20] 20 mEq Tablet,Er Particles/Crystals 20 meq PO DAILYCM 30 Days Qty: 30 0RF betamethasone valerate 0.1 % Cream 1 applic topical BID Qty: 0 0RF Protocol: *Topical Application Instructions APPLICATION INSTRUCTIONS: Right lateral lower extremity, right lateral foot. metoprolol tartrate 25 mg Tablet 25 mg PO BID 30 Days Qty: 60 0RF Xarelto 20 mg Tablet 20 mg PO DINNER@1700 30 Days Qty: 30 0RF methocarbamol 750 mg Tablet 750 mg PO Q8H 30 Days Qty: 90 0RF gabapentin 300 MG capsule 300 mg PO BID 30 Days Qty: 60 0RF cefadroxil 500 mg Capsule 1,000 mg PO BID 2 Days Qty: 8 0RF pramipexole 0.25 mg Tablet 0.25 mg PO QHS 30 Days Qty: 30 0RF hydroxyzine pamoate 25 mg Capsule 25 mg PO QHS 30 Days Qty: 30 0RF Primary Care Provider: Melissa Muhammad Referrals: Indra Huber MD [Non-Staff] - As Needed (([facility] ortho clinic)) Edilson Haywood DO [Med Staff - Active Staff] - [facility]) Melissa Muhammad MD [Primary Care Provider] - Richard Garcia DO [Med Staff - Active Staff] - As Needed ([facility]) Disposition Disposition: Home, Self Care What to do if you have Problems For any increased pain, shortness of breath, bleeding, nausea or vomiting, chestpain, or any unexpected problems, contact your Primary Care Provider. Call [facility] ([phone]) or report to the closest Emergency Room. Call 911 if necessary. 05/02/23 0823 <Electronically signed by Indra Thompson MD> Cosigner Signature (if applicable): CC: Dr. Melissa Muhammad MD ~ Signed [facility] Work Phone: [phone] 537-130803-07-2024 Miscellaneous Notes* Telephone Encounter - Nany Akbar RN - 04/20/2023 1:43 PM EST Patient has been identified by name and date of : Yes, Provider Date Time Pharmacy phones for refill(s): Requested Prescriptions Pending Prescriptions Disp Refills ketoconazole (NIZORAL) 2 % cream 30 g 5 Sig: Apply 1 application to affected area once daily. Apply to rash and surrounding area. On abdomen. May repeat if necessary Date of last office visit in primary care: 02/24/2023 Date of next office visit in primary care: 08/18/2023 Please advise. Thank you. Nany Akbar RN. documented in this encounterBluffton Hospital11-28-2023 Miscellaneous Notes* Telephone Encounter - Jesenia Keller LPN - 01/10/2023 11:00 AM EST Last OV: 11/09/22 - Next scheduled appt: 02/20/23 Patient has been identified by name and date of : Yes Requested Prescriptions Pending Prescriptions Disp Refills gabapentin (NEURONTIN) 300 mg capsule 60 capsule 5 Sig: Take 1 capsule by mouth two times a day for 180 days. RX INSTRUCTIONS: Pharmacy initiated this request. No need to notify patient. Jesenia Keller LPN documented in this encounterBluffton Hospital10-15-2023 Miscellaneous Notes* Telephone Encounter - Melissa Muhammad MD - 11/27/2022 2:04 PM EDT Verify taken care of * Telephone Encounter - Lauren Plaza LPN - 11/25/2022 10:30 AM EDT Checking to see if this has been done. Lauren Plaza LPN * Telephone Encounter - Melissa Muhammad MD - 11/23/2022 9:03 PM EDT RX needed for Power Wheelchair since not provided by [facility] for signature. Fax with rest of paperwork in Done Bin in office documented in this encounterBluffton Hospital10-13-2023 Miscellaneous Notes* Telephone Encounter - Eun Linton RN - 11/25/2022 9:15 AM EDT Date of last office:09/02/2022 Date of next office visit: 02/20/2023 Requested Prescriptions Pending Prescriptions Disp Refills diclofenac XR (VOLTAREN-XR) 100 mg Tb24 30 tablet 2 Sig: TAKE 1 TABLET BY MOUTH DAILY WITH FOOD NEEDED FOR PAIN Date of Last Labs: 07/18/2022 Please advise. Thank you. Eun Linton, RN. documented in this encounterBluffton Hospital07-14-2023 Miscellaneous Notes* Telephone Encounter - Josephine Hawthorne APRN.CNS - 08/26/2022 8:20 AM EDT Can the office note 03/02/2022 and form for wheelchair be sent as requested? Thanks documented in this encounterBluffton Hospital06-05-2023 Instructions* Patient Instructions* Josephine Hawthorne APRN.CNS - 07/18/2022 2:58 PM EDT Increase amlodipine from 5 mg daily to 10 mg daily Check with your DME provider regarding replacement electric wheelchair Apply cream to itchy area on your abdomen. Keep the area clean and dry and skin fold . documented in this encounterBl[facility] History of Present illness Narrative* Josephine Hawthorne APRN.CNS - 07/18/2022 2:20 PM EDT SUBJECTIVE: BP CONTROLLED (<130/80) Never done MAMMOGRAM due on 11/22/2017 BONE DENSITY Never done PNEUMOCOCCAL: 65+(2 - PCV) due on 10/16/2021 ADVANCE DIRECTIVE DISCUSSION Never done DTAP,TDAP,TD(2 - Td or Tdap) due on 06/09/2022 COLORECTAL CANCER SCREENING due on 07/23/2022 HPI Sonia Karimi is a 66 year old female. 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 ACTIVE PROBLEM LIST Essential Hypertension Hyperlipidemia Osteoarthritis of Both Knees Iris Treated With Bipap Class 3 severe obesity due to excess calories without serious comorbidity with body mass index (BMI) of 45.0 to 49.9 in adult Cervical Myopathy Cervical Spondylosis With Myelopathy History of Cervical Polypectomy Paraparesis (Hcc) Thyroid Nodule Ventricular Tachycardia, Non-Sustained (Hcc) Spondylosis With Myelopathy, Thoracic Region Paronychia of Right Middle Finger Fusion of Spine of Thoracic Region Acute Postoperative Pain Pseudogout of Right Knee Abnormal Urinalysis Rash and nonspecific skin eruption on right thigh HPI excerpted from previous visit: Presents today with concern regarding wheechair. On arrival states she would like to establish care here as she s having trouble getting to her current PCP Dr Saad Gasca. Would like to establish with PCP Dr Muhammad She is currently in a wheelchair for bilateral leg weakness. Review of previous notes indicate that on on 11/24/2020 she underwent- T9 - 11 decompression with T9/10 and T10/11 bilateral facetectomies and T9 and T10 complete laminectomies, T9 - 11 posterior segmental instrumentation. Was in rehab; Has been home since 01/28/2021. Mostly in wheelchair. Working from home. Current mobility: limited mobility, difficult to stand or walk Wheelchair in the home: yes Physical therapy evaluation for wheelchair: states has done this already. Notes she is need of motorized wheelchair. Notes upper extremities can not support use of manual wheelchair. It causes pain and fatigue. Notes plans to use it in her home. States DME is [employer]. Notes HHC through [facility]. PT/OT/RN Sees Dr Guerrero [facility] for bilateral knee pain. Needs to lose weight before proceeding with surgery. Today notes that she received an electric wheelchair that would not fit through doorway from DME provider despite having physical therapists check out her home and complete measurements etc. She had returned this wheelchair a couple days after receiving it as it will not function in her home. She has contacted DME and they say that they have a smaller wheelchair that should function well in her home. She has yet to receive this. She notes itchy rash left abdominal fold present for some time. Not improving with topical treatments she has tried at home. HTN: She is without report of headache, chest pain, palpitations, dyspnea, and peripheral edema. Last 14 Encounter BP Readings: Date: BP: 07/18/2022 174/82 03/02/2022 142/78 07/20/2021 140/72 04/30/2021 146/75 11/17/2020 115/55 11/17/2020 142/63 11/16/2020 106/40 11/16/2020 132/72 10/14/2020 132/72 09/17/2018 122/62 09/03/2018 144/78 05/28/2018 172/88 03/29/2018 166/70 03/26/2018 175/89 Hyperlipidemia. Ms. Karimi reports doing well on current therapy. Her most recent lipid panels are: Cholesterol, Total (mg/dL) Date Value 10/14/2020 177 11/11/2019 203 HDL Cholesterol (mg/dL) Date Value 10/14/2020 41 11/11/2019 46 LDL Cholesterol (mg/dL) Date Value 10/14/2020 101 11/11/2019 113 Triglyceride (mg/dL) Date Value 10/14/2020 175 11/11/2019 221 Mood: stable on current treatment Review of Systems Constitutional: Negative. Musculoskeletal: Positive for arthralgias, back pain and gait problem. Objective BP 174/82 Pulse 84 Resp 16 Physical Exam Vitals and nursing note reviewed. Constitutional: Appearance: Normal appearance. HENT: Head: Normocephalic and atraumatic. Eyes: Conjunctiva/sclera: Conjunctivae normal. Neck: Thyroid: No thyroid mass or thyromegaly. Vascular: Normal carotid pulses. Cardiovascular: Rate and Rhythm: Normal rate and regular rhythm. Pulses: Carotid pulses are 2+ on the right side and 2+ on the left side. Radial pulses are 2+ on the right side and 2+ on the left side. Heart sounds: Normal heart sounds. Pulmonary: Effort: Pulmonary effort is normal. Breath sounds: Normal breath sounds. Abdominal: General: Bowel sounds are normal. Palpations: Abdomen is soft. Musculoskeletal: Right lower leg: No edema. Left lower leg: No edema. Skin: General: Skin is warm and dry. Neurological: General: No focal deficit present. Mental Status: She is alert and oriented to person, place, and time. Seated in wheelchair, unable to stand for weight. ALLERGIES Allergen Reactions Ativan [Lorazepam] Hives Neomycin Itching Hives, itching Valium [Diazepam] Intolerance somnolence MEDICATIONS gabapentin (NEURONTIN) 300 mg capsule TAKE 1 CAPSULE BY MOUTH TWICE A DAY diclofenac XR (VOLTAREN-XR) 100 mg Tb24 TAKE 1 TABLET BY MOUTH DAILY WITH FOOD NEEDED FOR PAIN acetaminophen (TYLENOL) 500 mg tablet Take 500 mg by mouth twice daily as needed for pain. cholecalciferol (VITAMIN D3) 50 mcg (2,000 unit) tablet Take 2,000 Units by mouth once daily. COMPOUNDED PRESCRIPTION BIPAP 1 liter bleed in 12/5 cm. RR 14 Replacement machine with heated humidity. CPAP mask and supplies. Use nightly. amLODIPine (NORVASC) 10 mg tablet Take 1 tablet by mouth once daily. atorvastatin (LIPITOR) 10 mg tablet Take 1 tablet by mouth once daily. diclofenac (VOLTAREN) 1 % topical gel Apply 4 g to affected area four times daily. FOR EXTERNAL USEONLY APPLY TO: right knee Use provided dosing card to measure the ordered dose. methocarbamol (ROBAXIN) 750 mg tablet Take 1 tablet by mouth every 8 hours as needed (Muscle spasms). CAUTION: May cause drowsiness. sertraline (ZOLOFT) 100 mg tablet Take 1 tablet by mouth once daily. valsartan (DIOVAN) 160 mg tablet Take 1 tablet by mouth once daily. valsartan (DIOVAN) 80 mg tablet Take one every PM (in addition to 160 mg. Daily in AM). cloNIDine HCl (CATAPRES) 0.1 mg tablet Take 1 tablet by mouth twice daily. ketoconazole (NIZORAL) 2 % cream Apply 1 application to affected area once daily. Apply to rash andsurrounding area. On abdomen. May repeat if necessary PAST MEDICAL HISTORY Diagnosis Date Cervical polyp Cervical spine disease COPD (chronic obstructive pulmonary disease) (HCC) Hyperlipidemia Hypertension Mild aortic regurgitation repeat echocardiogram [id number] if no other changes Minor depression IRIS (obstructive sleep apnea) Thyroid nodule greater than or equal to 1.5 cm in diameter incidentally noted on imaging study 11/17/2020 b/l nodules. Dominant nodule within the lower pole of the right lobe, measuring up to 6.2 cm, increased in size in the interval. Social History Tobacco Use Smoking status: Former Years: 3.00 Types: Cigarettes Smokeless tobacco: Never Tobacco comments: quit prior to 1979 Substance Use Topics Alcohol use: No Drug use: No ASSESSMENT/PLAN: 1. Encounter for immunization - ICD9: V03.89, ICD10: Z23 (primary diagnosis) - PNEUMOCOCCAL VACCINE (PREVNAR 20) - TDAP VACCINE, AGE 7+ YR (ADACEL, BOOSTRIX) 2. Screening for colon cancer - ICD9: V76.51, ICD10: Z12.11 - FECAL OCCULT BLOOD TEST 3. Ventricular tachycardia, non-sustained (HCC) - ICD9: 427.1, ICD10: I47.29 controlled on current treatments 4. Paraparesis (HCC) - ICD9: 344.1, ICD10: G82.20 Stable. In need of electric wheelchair. One that did not fit through doorways into bathroom in particular was sent, working on getting the correct size sent. Will contact DME and let us know if needing anything additional from us. 5. Essential hypertension - ICD9: 401.9, ICD10: I10 suboptimal control Increas amlodipine from 5mg QD to 10 mg QD - Encouraged sodium restriction, DASH or Mediterranean diet - AMLODIPINE 10 MG TABLET - VALSARTAN 160 MG TABLET - COMP METABOLIC PANEL - CBC + DIFF - CLONIDINE HCL 0.1 MG TABLET 6. Hyperlipidemia, unspecified hyperlipidemia type - ICD9: 272.4, ICD10: E78.5 labs today Recommend a plant based diet such as Mediterranean diet with plenty of vegetables, fruits,whole grains, fish, chicken, turkey or plant proteins and routine exercise such as walking - ATORVASTATIN 10 MG TABLET - LIPID PANEL, NONFASTING 7. Depression, unspecified depression type - ICD9: 311, ICD10: F32.A mood stable on current treatment endorse counseling if so desires - SERTRALINE 100 MG TABLET 6 mo follow up MD Josephine Angel APRN.PERSONNEL DIRECTOR Medical Decision Making: Problems: Moderate: 2+ stable chronic illnesses Risk: Moderate: Drug management Medical Decision Making Level: 4 - Moderate documented in this encounterBluffton Hospital04-12-2023 Miscellaneous Notes* Telephone Encounter - Alexx Evans - 05/25/2022 12:11 PM EDT Home care Certification Form 485 received from [facility]. For cert dates 08/29/21-10/27/21 that were signed on 10/14/21. Recertification Patient's home health 485 form / care plan for stated certification period reviewed and signed. Relevant medical records were reviewed. No changes were indicated documented in this encounterDustin Ville [address]-12-2023 Miscellaneous Notes* Telephone Encounter - Alexx Evans - 05/25/2022 11:15 AM EDT Home care Certification Form 485 received from 06/30/21-08/28/21. For cert dates 06/30/21-08/28/21 that were signed on 12/27/21. New Certification Patient's home health 485 form / care plan for stated certification period reviewed and signed. Relevant medical records were reviewed. No changes were indicated documented in this encounterBluffton Hospital04-05-2023 Miscellaneous Notes* Telephone Encounter - Brandy Chung LPN - 05/18/2022 11:42 AM EDT Faxed back to [facility]. Brandy Chung LPN * Telephone Encounter - Melissa Muhammad MD - 05/17/2022 9:12 PM EDT Signed * Telephone Encounter - Denia Hassan LPN - 05/13/2022 10:02 AM EDT Rec'd via fax. * Telephone Encounter - Mariah Ball RN - 05/12/2022 11:45 AM EDT Esteban- Katherine Saavedra- asking if Dr. Muhammad received the documents he dropped off at [facility] on 04-26-22? States he is going to fax them over today. Can only send 2 documents, b/c he cannot send 3rd one until he receives the first 2 back. Reports these are for patient's insurance, to help patient geta power wheel chair. Please fax back to him at fax # [phone]. Please phone Esteban with any questions. documented in this encounterBluffton Hospital03-02-2023 Miscellaneous Notes* Telephone Encounter - Neo Gar DO - 04/14/2022 1:12 PM EST Patient's home health 485 form / care plan for stated certification period reviewed and signed. Relevant medical records were reviewed. No changes were indicated Neo Gar DO * Telephone Encounter - Alexx Evans - 04/14/2022 10:36 AM EST Home care Certification Form 485 received from [facility]. Provider: please document with smart phrase .homehealth for cert dates 08/29/21-10/27/21 that were signed on 03/22/22. After charge capture filing for Recertification, please Sign and Close Encounter. Thank you. documented in this encounterBluffton Hospital03-02-2023 Miscellaneous Notes* Telephone Encounter - Neo Gar DO - 04/14/2022 1:11 PM EST Patient's home health 485 form / care plan for stated certification period reviewed and signed. Relevant medical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 We encourage the COVID-19 vaccine booster and influenza vaccine. If you decide to proceed with thisyou may get vaccinated at your local pharmacy or return to clinic for this. documented in this encounterBluffton Hospital06-07-2022 History of Present illness Narrative* Josephine Hawthorne, SEAL DELIVERY VEHICLE TEAM TECHNICIAN.PERSONNEL DIRECTOR - 07/20/2021 12:32 PM EDT SUBJECTIVE: BP CONTROLLED (<130/80) Never done MAMMOGRAM due on 11/22/2017 COLORECTAL CANCER SCREENING due on 08/17/2018 BONE DENSITY Never done COVID-19 VACCINE(4 - Booster for Moderna series) due on 04/15/2021 HPI Sonia Karimi is a 65 year old female. 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 ACTIVE PROBLEM LIST Essential Hypertension Hyperlipidemia Osteoarthritis of Both Knees Iris Treated With Bipap Class 3 severe obesity due to excess calories without serious comorbidity with body mass index (BMI) of 45.0 to 49.9 in adult Cervical Myopathy Cervical Spondylosis With Myelopathy History of Cervical Polypectomy Leg Weakness, Bilateral Thyroid Nodule Ventricular Tachycardia, Non-Sustained (Hcc) Spondylosis With Myelopathy, Thoracic Region Paronychia of Right Middle Finger Fusion of Spine of Thoracic Region Acute Postoperative Pain Pseudogout of Right Knee Abnormal Urinalysis Rash and nonspecific skin eruption on right thigh Presents today with concern regarding wheechair. On arrival states she would like to establish care here as she s having trouble getting to her current PCP Dr Saad Au [facility]. Would like to establish with PCP Dr Muhammad She is currently in a wheelchair for bilateral leg weakness. Review of previous notes indicate that on on 11/24/2020 she underwent- T9 - 11 decompression with T9/10 and T10/11 bilateral facetectomies and T9 and T10 complete laminectomies, T9 - 11 posterior segmental instrumentation. Was in rehab; Has been home since 01/28/2021. Mostly in wheelchair. Working from home. Current mobility: limited mobility, difficult to stand or walk Wheelchair in the home: yes Physical therapy evaluation for wheelchair: states has done this already. Notes she is need of motorized wheelchair. Notes upper extremities can not support use of manual wheelchair. It causes pain and fatigue. Notes plans to use it in her home. States DME is [employer]. Notes HHC through [facility]. PT/OT/RN Sees Dr Guerrero [facility] for bilateral knee pain. Needs to lose weight before proceeding with surgery. Review of Systems Constitutional: Negative. Musculoskeletal: Positive for arthralgias, back pain and gait problem. Objective BP 140/72 Pulse 72 Resp 16 Physical Exam Vitals and nursing note reviewed. Constitutional: Appearance: Normal appearance. HENT: Head: Normocephalic and atraumatic. Eyes: Conjunctiva/sclera: Conjunctivae normal. Neck: Thyroid: No thyroid mass or thyromegaly. Vascular: Normal carotid pulses. Cardiovascular: Rate and Rhythm: Normal rate and regular rhythm. Pulses: Carotid pulses are 2+ on the right side and 2+ on the left side. Radial pulses are 2+ on the right side and 2+ on the left side. Heart sounds: Normal heart sounds. Pulmonary: Effort: Pulmonary effort is normal. Breath sounds: Normal breath sounds. Abdominal: General: Bowel sounds are normal. Palpations: Abdomen is soft. Musculoskeletal: Right lower leg: No edema. Left lower leg: No edema. Skin: General: Skin is warm and dry. Neurological: General: No focal deficit present. Mental Status: She is alert and oriented to person, place, and time. Seated in wheelchair, unable to stand for weight. ALLERGIES Allergen Reactions Ativan [Lorazepam] Hives Neomycin Itching Hives, itching Valium [Diazepam] Intolerance somnolence MEDICATIONS valsartan (DIOVAN) 80 mg tablet Take one every PM (in addition to 160 mg. Daily in AM). diclofenac XR (VOLTAREN-XR) 100 mg Tb24 TAKE 1 TABLET BY MOUTH DAILY WITH FOOD NEEDED FOR PAIN valsartan (DIOVAN) 160 mg tablet Take 1 tablet by mouth once daily. atorvastatin (LIPITOR) 10 mg tablet Take 1 tablet by mouth once daily. amLODIPine (NORVASC) 5 mg tablet Take 1 tablet by mouth once daily. cloNIDine HCl (CATAPRES) 0.1 mg tablet Take 1 tablet by mouth twice daily. sertraline (ZOLOFT) 100 mg tablet Take 1 tablet by mouth once daily. gabapentin (NEURONTIN) 300 mg capsule Take 1 capsule by mouth twice daily for 90 days. methocarbamol (ROBAXIN) 750 mg tablet Take 1 tablet by mouth every 8 hours as needed (Muscle spasms). CAUTION: May cause drowsiness. diclofenac (VOLTAREN) 1 % topical gel Apply 4 g to affected area four times daily. FOR EXTERNAL USEONLYAPPLY TO: right knee Use provided dosing card to measure the ordered dose. acetaminophen (TYLENOL) 500 mg tablet Take 500 mg by mouth twice daily as needed for pain. cholecalciferol (VITAMIN D-3) 2,000 unit tablet Take 2,000 Units by mouth once daily. COMPOUNDED PRESCRIPTION BIPAP 1 liter bleed in 12/5 cm. RR 14Replacement machine with heated humidity. CPAP mask and supplies.Use nightly. Blood Pressure Monitor 1 Each once daily. LARGE ADULT CUFF. PAST MEDICAL HISTORY Diagnosis Date Cervical polyp Cervical spine disease COPD (chronic obstructive pulmonary disease) (HCC) Hyperlipidemia Hypertension Mild aortic regurgitation repeat echocardiogram 8460-7664 if no other changes Minor depression IRIS (obstructive sleep apnea) Thyroid nodule greater than or equal to 1.5 cm in diameter incidentally noted on imaging study 11/17/2020 b/l nodules. Dominant nodule within the lower pole of the right lobe, measuring up to 6.2 cm, increased in size in the interval. Social History Tobacco Use Smoking status: Former Smoker Years: 3.00 Smokeless tobacco: Never Used Tobacco comment: quit prior to 1979 Substance Use Topics Alcohol use: No Drug use: No ASSESSMENT/PLAN: 1. Postlaminectomy syndrome, not elsewhere classified - ICD9: 722.80, ICD10: M96.1 (primary diagnosis) 2. Myelopathy (HCC) - ICD9: 336.9, ICD10: G95.9 3. Spondylosis with myelopathy, thoracic region - ICD9: 721.41, ICD10: M47.14 4. S/P laminectomy - ICD9: V45.89, ICD10: Z98.890 5. Fusion of spine of thoracic region - ICD9: 724.9, ICD10: M43.24 6. Leg weakness, bilateral - ICD9: 729.89, ICD10: R29.898 She reports that she underwent surgery and subsequently was unable to walk any distance following. Currently using a manual wheelchair but finds this causes pain and notes that she is having weaknessin her upper extremities. States she is already completed wheelchair evaluation. Has [facility] care [facility] PT OT. Following at [facility], Dr Guerrero for her knees - CONSULT TO PT/OT WHEELCHAIR EVALUATION 7. Essential hypertension - ICD9: 401.9, ICD10: I10 controlled, continue current medication unchanged for now, continue to monitor - VALSARTAN 160 MG TABLET - CLONIDINE HCL 0.1 MG TABLET - AMLODIPINE 5 MG TABLET - COMP METABOLIC PANEL - CBC + DIFF 8. Depression, unspecified depression type - ICD9: 311, ICD10: F32.A controlled, continue current medication unchanged for now, continue to monitor - SERTRALINE 100 MG TABLET - COMP METABOLIC PANEL - CBC + DIFF 9. Hyperlipidemia, unspecified hyperlipidemia type - ICD9: 272.4, ICD10: E78.5 Recommend a plant based diet such as Mediterranean diet with plenty of vegetables, fruits,whole grains, fish, chicken, turkey or plant proteins and routine exercise such as walking - ATORVASTATIN 10 MG TABLET - LIPID PANEL BASIC - COMP METABOLIC PANEL 10. Encounter for screening for diabetes mellitus - ICD9: V77.1, ICD10: Z13.1 11. IFG (impaired fasting glucose) - ICD9: 790.21, ICD10: R73.01 - HGB A1C 12. Colon cancer screening - ICD9: V76.51, ICD10: Z12.11 - FECAL OCCULT BLOOD TEST 6-12 mo follow up Melissa Muhammad MD Schedule BMD Notes labs [facility] 04/2021. She will send us [employer] [facility] information, will fax this office note once received. Josephine Hawthorne APRN.CNS Medical Decision Making: Problems: Moderate: 2+ stable chronic illnesses and New problem with uncertain prognosis Data: Unique test(s) ordered: 3+ Risk: Moderate: Drug management Medical Decision Making Level: 4 - Moderate documented in this encounterBluffton Hospital05-26-2022 Miscellaneous Notes* Telephone Encounter - Samira Deacon - 07/08/2021 9:34 AM EDT Images from the original note were not included. New message from [employer]: The wheelchair people helping me needed more information as I wrote on June 22. They have not heard anything nor received an addendum to help with my insurance approval for an electronic wheel chair. Can you provide me with an update? Sonia Karimi Elizabeth F, DO 2 weeks ago DD My shoulders, hands, and wrists are extremely painful when pulling/pushing myself through the housewhich really causes problems with shoulder pain when transferring to the toilet, bed, shower bench,etc. I appreciate anything you can do to help me be more mobile and in less pain. Here is the email I received from Brock Patel regarding the electric wheel chair. As discussed I have attached the chart note received from Dr. Gar. I have highlighted the area s within the chart note that address mobility, mostly the CN just documents that you are currently using a wheelchair and never addresses the need for a new one. Per Medicare guidelines the physician must address the need for a power wheelchair, specifically pertaining to the need for it to assist with activities of daily living, insurance too wants the physician to rule out the possibility of a manual wheelchair. Because the original chart note does mention some ambulation issues I think that an addendum addressing the need for a power wheelchair from Dr. Gar should suffice enough for us to continue. I hope I have been able to articulate this correctly, it s a somewhat difficult process. If there is anything I can do to clarify or help please give me a call! Thanks, Brock Patel [employer] P:[phone] F:[phone] Please advise Samira Worthy July 08, 2021 9:35 AM documented in this encounterBluffton Hospital05-16-2022 Miscellaneous Notes* Telephone Encounter - Elijah Jimenez Ma - 06/28/2021 9:56 AM EDT Replied to patient via [employer] that labs done outside [facility] need to be faxed to us inorder for the results to be scanned into her chart so she'll need to request the lab in [facility] to fax the results, once results are received then it can be scanned to patient's chart. Elijah Jimenez Ma documented in this encounterBluffton Hospital05-11-2022 Miscellaneous Notes* Telephone Encounter - Samira Worthy - 06/23/2021 11:05 AM EDT New message from [employer]: My shoulders, hands, and wrists are extremely painful when pulling/pushing myself through the housewhich really causes problems with shoulder pain when transferring to the toilet, bed, shower bench,etc. I appreciate anything you can do to help me be more mobile and in less pain. Here is the email I received from Brock Patel regarding the electric wheel chair. As discussed I have attached the chart note received from Dr. Gar. I have highlighted the area s within the chart note that address mobility, mostly the CN just documents that you are currently using a wheelchair and never addresses the need for a new one. Per Medicare guidelines the physician must address the need for a power wheelchair, specifically pertaining to the need for it to assist with activities of daily living, insurance too wants the physician to rule out the possibility of a manual wheelchair. Because the original chart note does mention some ambulation issues I think that an addendum addressing the need for a power wheelchair from Dr. Gar should suffice enough for us to continue. I hope I have been able to articulate this correctly, it s a somewhat difficult process. If there is anything I can do to clarify or help please give me a call! Thanks, Brock Patel [employer] P:[phone] F:[phone] Please advise Samira Worthy June 23, 2021 11:06 AM documented in this encounterBluffton Hospital05-06-2022 Miscellaneous Notes* Telephone Encounter - Fabrizio Celis - 06/18/2021 1:51 PM EDT Chart updated. Fabrizio Celis ma documented in this encounterBluffton Hospital05-05-2022 Miscellaneous Notes* Telephone Encounter - Elijah Jimenez Ma - 06/17/2021 4:41 PM EDT Patient sent a [employer] message stating: Sonia Karimi to Neo Gar DO DD 06/17/21 2:43 PM My blood pressure continues to vesiculate up and down. It is high in the morning when I wakeup and in the evening with readings of: 150/98 151/92 123/94 155/97 149/91 129/83 156/97 134/88 145/87 119/83 145/90 You mentioned adding an evening medication when I was in your office if it did not stabilize. BARBARA: 04/30/21 for F/U with Dr. Gar. Forwarding to MD, please advice. Elijah Jimenez Ma documented in this encounterBluffton Hospital05-05-2022 Miscellaneous Notes* Telephone Encounter - Dwayne Pedraza - 06/17/2021 11:50 AM EDT Called and spoke with Nurse Chavez all forms faxed to [phone]. Dwayne Pedraza CMA * Telephone Encounter - Dwayne Pedraza - 06/16/2021 1:32 PM EDT Order, demographic sheet and last office visit notes printed off, unable to reach Nurse Chavez with [facility]. Please try again. Dwayne Pedraza CMA * Telephone Encounter - Neo Gar DO - 06/15/2021 11:18 AM EDT Done. * Telephone Encounter - Fabrizio Celis - 06/15/2021 10:25 AM EDT Consult to Physical Therapy has been pended. Once signed we will fax with additional information. Fabrizio Celis Ma * Telephone Encounter - Qing Goldberg - 06/15/2021 9:51 AM EDT Nurse Chavez calling from [facility] to inform doctor that Pt need physical therapy order, updated demographic sheet and last office note. Please advise documented in this encounterBluffton Hospital03-25-2022 Miscellaneous Notes* Telephone Encounter - [facility] Title Department Manager - 05/07/2021 2:44 PM EDT Late entry: Patient has been identified by name and date of : Yes Date of last office visit was 05/06/2021 , if over 90 days, the patient will need a follow-up appointment; sick visit does not qualify. Type of form: F2F/CHART NOTE REQUEST Date form was received: UNKNOWN Dates of Service: N/A Form received via: Fax When form is completed, contact: SONNY SOTO# [phone], FAX# [phone] Number to call: [phone] (home) [phone] (work) Form has been forwarded to: Provider's mailbox. Provider name: DR CONG Anna [facility] Title Department Manager * Telephone Encounter - [facility] Title Department Manager - 05/07/2021 2:27 PM EDT Esteban with [employer] is calling to check the status of the paperwork he dropped off earlier this week. Esteban can be reached at [phone]. Please advise. Thanks, Shoshana [facility] Title Department Manager documented in this encounterBluffton Hospital03-24-2022 Miscellaneous Notes* Telephone Encounter - Neo Gar DO - 05/06/2021 12:53 PM EDT The following approved medication requests have been transmitted electronically. Signed Prescriptions Disp Refills diclofenac XR (VOLTAREN-XR) 100 mg Tb24 30 tablet 3 Sig: TAKE 1 TABLET BY MOUTH DAILY WITH FOOD NEEDED FOR PAIN BEREKET: No Authorizing Provider: NEO GAR DO * Telephone Encounter - Sandrine Reeves RN - 05/06/2021 12:52 PM EDT Called patient and she would like a refill. Forwarding to provider for review. * Telephone Encounter - Neo Gar DO - 05/06/2021 12:48 PM EDT I don't believe patient is taking much voltaren now - please call her and see if she wants refill. * Telephone Encounter - Sandrine Reeves RN - 05/06/2021 8:45 AM EDT INTERNAL MEDICINE: Patient has been identified by name and date of : Yes Pharmacy electronically sent a request for the following prescription(s) RX INSTRUCTIONS: Patient aware RX will be sent to pharmacy. No need to notify patient. Last office visit at this [facility] in Primary Care not including Urgent Care: 04-30-21 Next office visit at [facility] in Primary Care not including Urgent Care: no appt Pending Prescriptions Disp Refills DICLOFENAC ER 100 MG TABLET,EXTENDED RELEASE 24 HR 30 tablet 3 Sig: TAKE 1 TABLET BY MOUTH DAILY WITH FOOD NEEDED FOR PAIN BEREKET: Yes Prescriptions are usually addressed within 24 hours. If patient states they cannot wait 24 hours, please document details. Prescribing provider in office: Yes Signed by: Sandrine Reeves RN Rx Request routed to physician for review documented in this encounterBluffton Hospital03-23-2022 Miscellaneous Notes* Telephone Encounter - Samira Worthy - 05/05/2021 9:20 AM EDT New Message from [employer] Is there a different drug to use for muscle spasms other than methocarbamol TAB 750MG as it is not covered in Medicare Part D formularies? Please advise Samira Worthy May 05, 2021 9:21 AM documented in this encounterBluffton Hospital03-08-2022 Miscellaneous Notes* Telephone Encounter - Sandrine Reeves RN - 04/20/2021 3:28 PM EST Upon speaking provider nurse, to offer 04-23-21 at 11am. Called patient and she accepted appointment for this Monday. Will have front end put patient in appointment slot. * Telephone Encounter - Sandrine Reeves RN - 04/20/2021 11:44 AM EST Called patient to discuss below. States her physical therapy has stopped. Her insurance states patient would need to appeal but she is in need of a provider office visit. She is willing to come to either offices to see provider. Explained to patient, schedule is busy and will discuss with provider and someone from the clinical team will call her back. Forwarding to provider for review and advise. * Telephone Encounter - Donell Palomino - 04/20/2021 11:31 AM EST Sonia Karimi is calling Neo Gar DO today with concern regarding her home health care. Patient stated that she has had her physical therapy (home health care) stopped. She is requesting acall back to discuss possible options to prevent this. Patient Question Patient has been identified by name and birthdate. Duration of symptoms: N/A Person calling: self Call patient at: at home [phone] (home) [phone] (work) [phone] (cell) Was an appointment scheduled: No Donell Palomino documented in this encounterBluffton Hospital03-02-2022 Miscellaneous Notes* Telephone Encounter - Samira Worthy - 04/14/2021 4:59 PM EST Images from the original note were not included. New message from Sonia Chang [facility] I did not go to the ED since BP went down after PT left. I have been keeping a log of it over the past few days. 04/26 128/72 143/87 04/25 122/77 150/92 158/98 126/77 144/89 04/24 120/73 136/84 160/99 139/90 04/23 139/88 168/106 161/102 147/95 133/84 139/88 04/22 125/76 116/74 152/97 134/88 150/93 04/21 141/88 149/97 119/75 Please advise Samira Worthy April 14, 2021 5:00 PM documented in this encounterBluffton Hospital02-24-2022 Miscellaneous Notes* Telephone Encounter - Sandrine Reeves RN - 04/08/2021 1:17 PM EST Will forward to provider to review and advise. * Telephone Encounter - Shoshana Lutz Title Department Manager - 04/08/2021 1:09 PM EST Patient is calling to check the status of the below encounter. Patient states the provider has had her results since Monday and is confused as to why nothing has been called in for her UTI yet. Patient states her pharmacy closes at 5 pm and would like something called in before they close. Please advise. Thanks, Shoshana Lutz Title Department Manager * Telephone Encounter - Samira Worthy - 04/08/2021 9:42 AM EST New message for Zulma Please ask Dr Gar to provide a prescription for my urinary track infection. I still use [facility]. Thank you Samira Worthy April 08, 2021 9:43 AM documented in this encounterBluffton Hospital02-23-2022 Miscellaneous Notes* Telephone Encounter - Dwayne Pedraza - 04/07/2021 2:27 PM EST Called and spoke Rosalia regarding message below, Rosalia stated lab results faxed this morning at [address] [place] [address] per chart review results in providers mailbox. Rosalia stated patient being asymptomatic, just frustrated not being able to be independent. Please advise Dwayne Pedraza CMA * Telephone Encounter - Saba Ulloa - 04/07/2021 1:27 PM EST Patient has been identified by name and date of : Yes Reason for call: Patient's BP was elevated when home health Nurse evaluated her. So they took the BP twice. It was at first 164/83 BP Waited 20 min then is was 164/90 Nurse would also like to know has Cong checked her lab work for urinalysis? counterperson: Rosalia Phone number to reach you at: [phone] Saba Ulloa documented in this encounterBluffton Hospital01-20-2022 Miscellaneous Notes* Telephone Encounter - Shoshana Lutz Title Department Manager - 03/04/2021 11:46 AM EST Home care Certification Form 485 received from [facility]. Provider: please document with smart phrase .homehealth for cert dates 02/03/2021-04/03/2021 that were signed on 03/02/2021. After charge capture filing for New Certification, please Sign and Close Encounter. Thank you. documented in this encounterBluffton Hospital10-09-2021 NoteHNO ID: [id number] Author: Interface Note Service: ? Author Type: ? Type: Progress Notes Filed: 11/21/2020 2:56 AM Note Text: Epic Scheduled Downtime: 11/21/2020 1:00:00 AM to 11/21/2020 2:33:00 [facility]10-08-2021 NoteHNO ID: [id number] Author: Neo Gar DO Service: General Internal Medicine Author Type: Physician Type: Progress Notes Filed: 11/20/2020 5:23 PM Note Text: PROGRESS NOTE - Academic Team INTERNAL MEDICINE Academic Pager 7AM-5PM: Please page resident on service Academic team pager 5PM- 7AM: [place] [phone] unless ICU[place] [phone] PATIENT NAME: Sonia Karimi SERVICE DATE: 11/20/2020 SERVICE TIME: 11:53 AM ADMITTING PHYSICIAN: Neo Gar, ASSESSMENT AND PLAN Sonia Karimi is a 64 year old female with history of HTN, HLD, IRIS, cervical myopathy, and sponylosis who presents with bilateral leg weakness due to thoracic spinal cord compression. #Leg weakness, bilateral Assessment: B/l extremity weakness and paresthesias as of 1 month that has progressively gotten worse. Has associated numbness/tingling and discomfort extending from feet up to abdomen and includes perineum. Has had 2 associated mechanical falls with acute worsening following the first fall. No associated bowel or urinary dysfunction. PLAN: - MRI of spine: T9-T12 severe canal stenosis with compression and abnormal intramedullary cord signal most pronounced at T10-T11 - waiting transfer to for spinal surgery - Neurovascular checks every 6 hrs - Neurology consult- recommendations appreciated - consider Decadron - limit mobility, bed rest - [place] for pain control - Colace, dulcolax, miralax for constipation ? #Thyroid nodule Assessment: Thyroid nodule on CT. Pt states she was worked up for nodule in the past with ultrasound and no biopsy. PLAN: - ultrasound of thyroid: heterogenous enlarged thyroid gland, B/L nodules dominant in R lobe 6.2 cm - FNA of nodule recommended - pt instructed to f/u outpatient for FNA of nodule ? #IRIS Assessment: History IRIS on BiPAP with mild pulmonary hypertension. COPD listed on history, however no PFTs available in EMR and pt not on COPD medications at baseline. PLAN: - Nocturnal BiPAP ? #Hyperlipidemia - statin held given work up for myopathy and elevated CK ? #Essential Hypertension Assessment: ?Patient with history of resistant hypertension. ?Hypertensive on arrival to the [facility]?however patient did miss her evening dose of clonidine, improved once evening dose of clonidine was given PLAN:? -Continue CLERK OPERATOR meds: Norvasc 5 mg daily, clonidine 0.1 mg twice daily, Maxide?25 1 tablet daily, valsartan 80 mg daily -Monitor daily labs -Replete electrolytes as needed #Ventricular tachycardia, nonsustained Assessment: Had 8 beats of NSVT momorphic around 4:00 PM 11/18/2020 without any obvious provocation. Echo: left ventricle normal in size, mild left ventricular hypertrophy, EF= 64, mildly dilated right atrial cavity, 1+ mild aortic regurgitation EKG: normal sinus rhythm, inverted T waves replaced nonspecific T wave abnormality in inferior leads compared with ECG of 02/16/04 PLAN: - Cardiology consulted, appreciate recs: monitor for now, no further work prior to intervention for spinal cord compression - continue telemetry -continue valsartan, atorvastatin, amlodipine, triamterene-HCTZ, clonidine DVT prophylaxis: lovenox 40 mg SUBJECTIVE INTERVAL HISTORY OF PRESENT ILLNESS: Pt is waiting for transfer to [facility] for spinal surgery due to spinal cord compression on MRI. She continues to complain of discomfort and pain unchanged from yesterday. No complaints of bladder dysfunction, constipation is improving with regimen. Denies chest pain, SOB, fever, dizziness, nausea, heart palpitations, heart racing, abdominal pain. OBJECTIVE PHYSICAL EXAM: BP 143/60 Pulse 95 Temp 36.8 ?C (98.2 ?F) (Oral) Resp 18 Ht 167.6 cm (5' 6) Wt 134.3 kg (296 lb) SpO2 93% BMI 47.78 kg/m? Body mass index is 47.78 kg/m?. General: noticeable discomfort, no signs of acute distress, alert, oriented Eyes: EOMI, no scleral icterus Head: atraumatic, normocephalic Neck: ROM normal, no visible nodules or goiter Cardiac: regular rate and rhythm Lungs: clear to auscultation b/l, no wheezes, rales, or rhonchi Abdomen: soft, nontender, nondistended Pulses: equal 2+ radial, 2+ dorsalis pedis Skin: warm, dry, normal texture and color DATA: Diagnostic tests reviewed for today's visit: Most recent labs and imaging results. CBC: Recent Labs 11/20/20406 WBC 11.33* RBC 4.60 HB 13.0 HCT 39.3 PLT 361 MCV 85.4 MCH 28.3 MPV 10.0 Coags: No results for input(s): PT, INR, APTT in the last 24 hours. BMP: Recent Labs 11/20/20406 NA 137 K 4.2 CHLOR 97 CO2 24 BUN 24* CREAT 0.93 GLUC 111* CMP: Recent Labs 11/20/20406 NA 137 K 4.2 CHLOR 97 CO2 24 BUN 24* CREAT 0.93 GLUC 111* CA 10.4* ANION 16* Cardiac Enzymes: No results for input(s): CK, MB, CKMB, TROPT in the last 24 hours. Liver Function, Amylase, Lipase: No results for input(s): TPROT, (more content not included)...[facility]10-08-2021 NoteHNO ID: [id number] Author: Vikram Abbott MD Service: Cardiovascular Medicine Author Type: Physician Type: Progress Notes Filed: 11/20/2020 11:05 AM Note Text: [facility] PROGRESS NOTE CONSULTING SERVICE: Cardiology: Consult Team PRIMARY SERVICE: Internal Medicine Subjective: was upset with possibly having to get some imaging and having to get on transport bed given the significant pain but did better at end of visit. No CP/sob/dyspnea/palpitations/syncope/lightheaded/dizzy and did not have prior to coming. Objective: Physical Exam 11/19/20 2313 11/19/20 2353 11/20/20 0333 11/20/20 0848 BP: 113/53 150/76 143/60 Pulse: 94 82 94 95 Resp: 19 18 18 18 Temp: 36.6 ?C (97.9 ?F) 36.8 ?C (98.2 ?F) TempSrc: Oral Oral SpO2: 96% 96% 92% 93% Weight: Height: Gen:Alert,no acute distress HEENT: normocephalic, atraumatic, no scleral ictures, no rinorrhea, normal hearing, no obvious goiter CV: S1/S2+, regular rate and rhythm, 2/6 early peaking systolic murmur Respiratory: Symmetric expansion, nonlabored, no crackles Abdomen: soft,nontender,nondistended MSK: no edema, nontender Neuro/psych:cooperative, appropriate, no focal deficits, tearing/frustrated at first but smiling at end, able to move her legs both Skin: no obvious large ecchymosis Data including imaging, ECG (personally reviewed), echocardiogram (personally reviewed), laboratory work, other with pertinent ones below: ECG: normal sinus rhythm, normal OR/QT intervals, no acute STT changes, no Q waves, low voltage precordial leads Telemetry 11/19-: no events 11/18-11/19 telemetry: 8B monomorphic NSVT @ 4:00PM 11/18/2020, rare PACs TTE: LVEF 64%, normal GLS, normal LA size; RA mildly dilated, normal RV size/fx, mid ascending aorta 3.9cm; 1+ mild AI ASSESSMENT / RECOMMENDATIONS / PLAN: 1. NSVT 2. Mild aortic regurgitaiton 3. HTN, HLD, Morbid Obesity, IRIS, Depression 4. LE weakness, compressive myelopathy ? Impression/recommendations: She had 8 beats of NSVT momorphic around 4:00PM 11/18/2020 without anything obvious that could have provacated it (was not getting MRI yet either) unless any pain but she has more so weakness. Other telemetry some PACs noted and other times artifact. In the setting of a structurally normal heart and no obvious evidence of prior infarct (although subclinical infarction cannot be ruled out with MRI) and normal electrolytes, normal BP, during day likely not sleeping so no obvious episode of hypoxia; the prognosis and treatment of very brief/limited NSVT asymptomatic is unclear. Her echocardiogram does show 1+ mild aortic regurgitation otherwise no obvious structural abnormalities. She did have any ischemic/arrhythmogenic/CHF symptoms prior to hospitalization although her functional status lower due to spinal/knee issues. Overnight telemetry without further evidence of NSVT. Plan: -Repeat echocardiogram in 3-5 years for aortic regurgitation surveillance unless other symptoms arise -Telemetry while hospitalization - No other cardiovascular work-up prior to potential noncardiac interventions for spine disease - Did marriage counselor yesterday on CV/MACE risk in surgery and she is at at low risk but never zero given her comorbidities but no other work-up needed to perform - Thank you for this consult, for now will sign-off, please call with any questions or concerns SIGNATURE: Vikram Abbott MD DATE of SERVICE: November 20[facility] NoteHNO ID: [id number] Author: Neo Gar DO Service: General Internal Medicine Author Type: Physician Type: Progress Notes Filed: 11/19/2020 8:57 PM Note Text: SERVICE DATE: 11/19/2020 SERVICE TIME: 2:47 PM HOSPITAL MEDICINE PROGRESS NOTE COVERAGE: [facility] patients: [id number] Floors / PGY 1 53343 ICU / PGY 2-3 Reza Gar patients: [id number] Floors / PGY 1 82870 ICU / PGY 2-3 SUBJECTIVE Interval HPI: Patient reports right hip pain that is modestly improved with [place]. No other complaints at this time. Denies fever, chills, nausea, vomiting, diarrhea. Did have 8 beats NSVT last night without any obvious provocation. OBJECTIVE BP 127/60 Pulse 64 Temp (Src) 97.9 (Oral) Resp 18 Ht 5' 6 (1.68m) Wt 296 lb (134.3kg) SpO2 93% BMI 47.80 kg/(m2). O2 Therapy: Room Air Physical Exam General: resting on edge of bed in noticeable discomfort, no signs of acute distress, alert, oriented Eyes: EOMI, no scleral icterus Head: atraumatic, normocephalic Neck: ROM normal, no visible nodules or goiter Cardiac: regular rate and rhythm, no murmurs, rubs or gallops Lungs: clear to auscultation b/l, no wheezes, rales, or rhonchi Abdomen: soft, nontender, nondistended Pulses: equal 2+ radial, 2+ dorsalis pedis Skin: warm, dry, normal texture and color ? Lines, Drains, and Airways Line Peripheral 11/19/20 1238 Left Hand 22 Gauge <1 day Medications: Reviewed. Diagnostic tests reviewed today: Most recent labs and imaging results. CBC Recent Labs 11/19/20 0926 11/18/20 0929 WBC 12.12* 10.68 RBC 4.85 4.53 HB 13.6 12.6 HCT 41.5 38.9 PLT 413* 327 MCV 85.6 85.9 MCH 28.0 27.8 MPV 10.1 9.7 CMP Recent Labs 11/19/20 1057 11/19/20 0926 11/18/20 0929 NA -- 139 137 K -- 4.0 3.9 CHLOR -- 98 99 CO2 -- 25 26 BUN -- 19 19 CREAT -- 0.90 0.77 GLUC -- 122* 163* CA -- 10.4* 10.0 MG 2.0 -- -- Cardiac Enzymes ) Recent Labs 11/17/20 0035 CK 316* ABGs PT INR (no units) Date Value 02/02/2018 0.9 APTT (sec) Date Value 01/31/2018 25.4 Assessment AND Plan Active Hospital Problems as of 11/19/2020 Noted - Resolved [facility] * (Principal) Leg weakness, bilateral 11/16/2020 - Present Yes Current Assessment AND Plan Assessment: B/l extremity weakness and paresthesias as of 1 month that has progressively gotten worse. Has associated numbness/tingling and discomfort extending from feet up to abdomen and includes perineum. Has had 2 associated mechanical falls with acute worsening following the first fall. No associated bowel or urinary dysfunction. PLAN: - MRI of spine: T9-T12 severe canal stenosis with compression and abnormal intramedullary cord signal most pronounced at T10-T11 - waiting transfer to for spinal surgery - Neurovascular checks every 6 hrs - Neurology consult- recommendations appreciated - Given IV steroids yesterday - limit mobility, bed rest - [place] for pain control - Colace, dulcolax, miralax for constipation Essential hypertension 12/15/2014 - Present Yes Current Assessment AND Plan Assessment: Patient with history of resistant hypertension. Hypertensive on arrival to the [facility] however patient did miss her evening dose of clonidine, improved once evening dose of clonidine was given. PLAN: -Continue CLERK OPERATOR meds: Norvasc 5 mg daily, clonidine 0.1 mg twice daily, Maxide?25 1 tablet daily, valsartan 80 mg daily -Monitor daily labs -Replete electrolytes as needed Hyperlipidemia 12/15/2014 - Present Yes Current Assessment AND Plan PLAN: -We will hold statin given work-up for myopathy and elevated CK Sleep apnea 12/15/2014 - Present Yes Current Assessment AND Plan ? Assessment: History of IRIS on BiPAP with mild pulmonary hypertension. COPD listed on history, however, no PFTs available in the EMR and patient not on any COPD medications at baseline. PLAN: -Nocturnal BiPAP 1 L bleed in 12/5 cm, RR 14, with heated humidity Thyroid nodule 11/19/2020 - Present Clinically Undetermined Current Assessment AND Plan Assessment: Thyroid nodule on CT. Pt states she was worked up for nodule in the past with ultrasound and no biopsy. PLAN: - ultrasound of thyroid: heterogenous enlarged thyroid gland, B/L nodules dominant in R lobe 6.2 cm - FNA of nodule recommended - pt instructed to f/u outpatient for FNA of nodule Ventricular tachycardia, non-sustained (HCC) 11/19/2020 - Present Unknown Current Assessment AND Plan Assessment: She had 8 beats of NSVT momorphic around 4:00PM 11/18/2020 without any obvious provocation. PLAN: -Cardiology consulted appreciate recs -continue telemetry -Echo - continue valsartan, atorvastatin, amlodipine, triamterene-HCTZ, clonidine. Medication and Non-Pharmacologic VTE Prophylaxis/Anticoagulants Anticoagulant AND Antiplatelet Medications (From admission, onward) Start Dose Route Frequency Last Action Ordered Stop 11/16/20 2330 enoxaparin (more content not included)...[facility] 11-18-2020 NoteHNO ID: [id number] Author: Neo Gar DO Service: General Internal Medicine Author Type: Physician Type: Progress Notes Filed: 11/18/2020 6:30 PM Note Text: PROGRESS NOTE - Academic Team INTERNAL MEDICINE Academic Pager 7AM-5PM: Please page resident on service Academic team pager 5PM- 7AM: [place] [phone] unless ICU[place] [phone] PATIENT NAME: Sonia Karimi SERVICE DATE: 11/18/2020 SERVICE TIME: 11:21 AM ADMITTING PHYSICIAN: Neo Gar DO Addendum: I have independently seen and examined this patient. I discussed the case with student Dr. Bautista and agree with her assessment and plan as written below. Any additions I have made to this note are written in italics text. Thank you Jose Mcguire DO November 18, 2020 12:56 PM ASSESSMENT AND PLAN Sonia Karimi is a 64 year old female with history of HTN, HLD, IRIS, cervical myopathy, and sponylosis who presents with bilateral leg weakness due to thoracic spinal cord compression. Active Problems: #Leg weakness, bilateral Assessment: B/l extremity weakness and paresthesias as of 1 month that has progressively gotten worse. Has associated numbness/tingling and discomfort extending from feet up to abdomen and includes perineum. Has had 2 associated mechanical falls with acute worsening following the first fall. No associated bowel or urinary dysfunction. PLAN: - MRI of spine: T9-T12 severe canal stenosis with compression and abnormal intramedullary cord signal most pronounced at T10-T11 - waiting transfer to for spinal surgery - Neurovascular checks every 6 hrs - Neurology consult- recommendations appreciated - consider Decadron - limit mobility, bed rest - [place] for pain control - Colace, dulcolax, miralax for constipation #Thyroid nodule Assessment: Thyroid nodule on CT. Pt states she was worked up for nodule in the past with ultrasound and no biopsy. PLAN: - ultrasound of thyroid: heterogenous enlarged thyroid gland, B/L nodules dominant in R lobe 6.2 cm - FNA of nodule recommended - pt instructed to f/u outpatient for FNA of nodule #IRIS Assessment: History IRIS on BiPAP with mild pulmonary hypertension. COPD listed on history, however no PFTs available in EMR and pt not on COPD medications at baseline. PLAN: - Nocturnal BiPAP #Hyperlipidemia - statin held given work up for myopathy and elevated CK #Essential Hypertension Assessment: ?Patient with history of resistant hypertension. ?Hypertensive on arrival to the [facility]?however patient did miss her evening dose of clonidine, improved once evening dose of clonidine was given PLAN:? -Continue CLERK OPERATOR meds: Norvasc 5 mg daily, clonidine 0.1 mg twice daily, Maxide?25 1 tablet daily, valsartan 80 mg daily -Monitor daily labs -Replete electrolytes as needed DVT prophylaxis: Lovenox 40 mg SUBJECTIVE INTERVAL HISTORY OF PRESENT ILLNESS: Pt is waiting for [facility] due to spinal cord compression on MRI. States she has discomfort and pain that is unchanged from yesterday. No complaints of bladder dysfunction, does complain of constipation. The thyroid nodule was discussed with pt and she was instructed to follow up for FNA. Denies chest pain, SOB, fever, dizziness, nausea. OBJECTIVE PHYSICAL EXAM: BP 148/71 Pulse 87 Temp 36.7 ?C (98.1 ?F) (Oral) Resp 16 Ht 167.6 cm (5' 6) Wt 134.3 kg (296 lb) SpO2 95% BMI 47.78 kg/m? Body mass index is 47.78 kg/m?. General: resting on edge of bed in noticeable discomfort, no signs of acute distress, alert, oriented Eyes: EOMI, no scleral icterus Head: atraumatic, normocephalic Neck: ROM normal, no visible nodules or goiter Cardiac: regular rate and rhythm, no murmurs, rubs or gallops Lungs: clear to auscultation b/l, no wheezes, rales, or rhonchi Abdomen: soft, nontender, nondistended Pulses: equal 2+ radial, 2+ dorsalis pedis Skin: warm, dry, normal texture and color DATA: Diagnostic tests reviewed for today's visit: Most recent labs and imaging results. CBC: Recent Labs 11/18/20 0929 WBC 10.68 RBC 4.53 HB 12.6 HCT 38.9 PLT 327 MCV 85.9 MCH 27.8 MPV 9.7 Coags: No results for input(s): PT, INR, APTT in the last 24 hours. BMP: Recent Labs 11/18/20 0929 NA 137 K 3.9 CHLOR 99 CO2 26 BUN 19 CREAT 0.77 GLUC 163* CMP: Recent Labs 11/18/20 0929 NA 137 K 3.9 CHLOR 99 CO2 26 BUN 19 CREAT 0.77 GLUC 163* CA 10.0 ANION 12 Cardiac Enzymes: No results for input(s): CK, MB, CKMB, TROPT in the last 24 hours. Liver Function, Amylase, Lipase: No results for input(s): TPROT, ALB, ALT, AST, ALKPHOS, TBILI, AMYLASE, LIPASE, LACTATE in the last 24 hours. ABG's: No results for input(s): PH, PCO2, PO2, BE, HCO3, CO2CT, O2HB, COHB, MHGB, TEMP, PHTC, PCO2T, PO2T, O2AD in the last 24 hours. MG/PHOS: No results for input(s): MG, P in the last 24 hours. Steph (more content not included)...[facility]10-05-2021 NoteHNO ID: [id number] Author: Karime Gao DO Service: Infectious Disease Author Type: Resident Type: Plan of Care Filed: 11/17/2020 9:04 PM Note Text: Patient with MRI findings showing below MRI CERVICAL SPINE WO IVCON Final Result IMPRESSION: Postoperative findings of anterior cervical discectomy and fusion from C3-C5. No high-grade canal stenoses or cord compression in the cervical spine. Multilevel severe neural foraminal stenoses most pronounced at C4-C7. Thoracic spondylosis with severe canal stenoses at the T9-T12 levels with cord compression and abnormal intramedullary cord signal suggesting compressive myelopathy, most pronounced at the T10-T11 level with severe bilateral neural foraminal stenoses. Multilevel lumbar spondylosis and spondylolisthesis with prominent dorsal epidural fat result in severe canal stenoses at the L1-L4 levels with bunching of the cauda equina nerve roots. Severe bilateral neural foraminal stenoses at L3-L4. Lumbar spondylolisthesis and spondylolysis with chronic bilateral L5 pars fractures result in severe bilateral neural foraminal stenoses at L5-S1. Partially visualized large right thyroid nodule with substernal extension. Partially visualized elongated cystic collection in the left dorsal subcutaneous fat in the upper thoracic region overlying the left trapezius muscle, extending from the left shoulder joint, which could represent a subacute/chronic hematoma but is incompletely characterized on the localizer images. Cervical Anatomic Variant: None. Assume 7 cervical vertebrae with counting from the craniocervical junction. Anatomic Thoracic/Lumbar Variant: None. L4-5 is considered the level of the iliac crest and assume there are 5 lumbar-type vertebrae. Transcribed Using Voice Recognition Transcribe Date/Time: Nov 17 2020 8:00P Dictated by: JACQUI ANDERSEN MD This examination was interpreted and the report reviewed and electronically signed by: JACQUI ANDERSEN MD on Nov 17 2020 8:36PM EST MRI LUMBAR SPINE WO IVCON Final Result IMPRESSION: Postoperative findings of anterior cervical discectomy and fusion from C3-C5. No high-grade canal stenoses or cord compression in the cervical spine. Multilevel severe neural foraminal stenoses most pronounced at C4-C7. Thoracic spondylosis with severe canal stenoses at the T9-T12 levels with cord compression and abnormal intramedullary cord signal suggesting compressive myelopathy, most pronounced at the T10-T11 level with severe bilateral neural foraminal stenoses. Multilevel lumbar spondylosis and spondylolisthesis with prominent dorsal epidural fat result in severe canal stenoses at the L1-L4 levels with bunching of the cauda equina nerve roots. Severe bilateral neural foraminal stenoses at L3-L4. Lumbar spondylolisthesis and spondylolysis with chronic bilateral L5 pars fractures result in severe bilateral neural foraminal stenoses at L5-S1. Partially visualized large right thyroid nodule with substernal extension. Partially visualized elongated cystic collection in the left dorsal subcutaneous fat in the upper thoracic region overlying the left trapezius muscle, extending from the left shoulder joint, which could represent a subacute/chronic hematoma but is incompletely characterized on the localizer images. Cervical Anatomic Variant: None. Assume 7 cervical vertebrae with counting from the craniocervical junction. Anatomic Thoracic/Lumbar Variant: None. L4-5 is considered the level of the iliac crest and assume there are 5 lumbar-type vertebrae. Transcribed Using Voice Recognition Transcribe Date/Time: Nov 17 2020 8:00P Dictated by: JACQUI ANDERSEN MD This examination was interpreted and the report reviewed and electronically signed by: JACQUI ANDERSEN MD on Nov 17 2020 8:36PM EST MRI THORACIC SPINE WO IVCON Final Result IMPRESSION: Postoperative findings of anterior cervical discectomy and fusion from C3-C5. No high-grade canal stenoses or cord compression in the cervical spine. Multilevel severe neural foraminal stenoses most pronounced at C4-C7. Thoracic spondylosis with severe canal stenoses at the T9-T12 levels with cord compression and abnormal intramedullary cord signal suggesting compressive myelopathy, most pronounced at the T10-T11 level with severe bilateral neural foraminal stenoses. Multilevel lumbar spondylosis and spondylolisthesis with prominent dorsal epidural fat result in severe canal stenoses at the L1-L4 levels with bunching of the cauda equina nerve roots. Severe bilateral neural foraminal stenoses at L3-L4. Lumbar spondylolisthesis and spondylolysis with chronic bilateral L5 pars fractures result in severe bilateral neural foraminal stenoses at L5-S1. Partially visualized large right thyroid nodule with substernal extension. Partially visualized elongated cystic collection in the left dorsal subcutaneous fat in the upper thoracic (more content not included)...[facility]10-05-2021 NoteHNO ID: [id number] Author: Jose Mcguire DO Service: General Internal Medicine Author Type: Resident Type: Plan of Care Filed: 11/17/2020 4:25 PM Note Text: Spoke to anesthesia, patient to go undergo MRI with anesthesia this evening once OR is free per Anesthesia team. Neurology contacted with CT results, will await MRI for definitive diagnosis. Jose Mcguire DO November 17, 2020 4:25 [facility]21 NoteHNO ID: [id number] Author: Lorena Anderson [facility] Service: Pharmacy Author Type: Pharmacist Type: Plan of Care Filed: 11/18/2020 11:55 AM Note Text: PHARMACY MEDICATION REVIEW Patient Name: Sonia Karimi : 1955 The following medications were updated within the CLERK OPERATOR medication list: Medications ADDED to CLERK OPERATOR medication list ? Melatonin 12 mg dissolvable tablet once every night at bedtime ? Tylenol ES 500 mg two tablets twice daily Medications CHANGED on CLERK OPERATOR medication list ? n/a Medications REMOVED from CLERK OPERATOR medication list ? Tylenol 325 mg tablet Additional comments: N/A The below information represents the best possible medication history: Yes Medication history completed by: student admissions clerk: Anne-Marie Dunbar Source of history: Patient: Reliability of source: Appears reliable, clearly identified: Medication name, Medication dose, Medication route and Medication frequency Medication nonadherence identified: No barriers noted Reconciliation completed: Yes All CLERK OPERATOR medications addressed by LIP Medications intentionally held at admission: Lipitor, diclofenac XR, glucosamine-chondroitin supplement Medication reconciliation completed by: Anne-Marie Dunbar Patient interested in Bedside Delivery Services or using OP Pharmacy at discharge? Unable to assess Preferred outpatient pharmacy: [facility] [address] [place] [address] - [address] [phone] e- [facility] [place] [address] - [address] [facility], [address] - [phone] Allergies: Ativan [Lorazepam] Hives Neomycin Itching Comment:Hives, itching Prior to Admission medications as of 11/16/20 1141 Medication Sig Last Dose Taking valsartan (DIOVAN) 80 mg tablet TAKE 1 TABLET BY MOUTH DAILY diclofenac XR (VOLTAREN-XR) 100 mg Tb24 TAKE 1 TABLET BY MOUTH DAILY WITH FOOD NEEDED FOR PAIN atorvastatin (LIPITOR) 10 mg tablet TAKE 1 TABLET BY MOUTH DAILY amLODIPine (NORVASC) 5 mg tablet TAKE 1 TABLET BY MOUTH DAILY triamterene-hydroCHLOROthiazide (MAXZIDE-25) 37.5-25 mg per tablet TAKE 1 TABLET BY MOUTH DAILY gabapentin (NEURONTIN) 300 mg capsule TAKE 1 CAPSULE BY MOUTH TWICE A DAY sertraline (ZOLOFT) 100 mg tablet Take 1 tablet by mouth once daily. cloNIDine HCl (CATAPRES) 0.1 mg tablet Take 1 tablet by mouth twice daily. Blood Pressure Monitor 1 Each once daily. LARGE ADULT CUFF. HYDROcodone-acetaminophen (NORCO) 5-325 mg per tablet Take 1 tablet by mouth as needed for Pain (take once daily as needed) for up to 180 days. acetaminophen (TYLENOL) 325 mg tablet Take 2 tablets by mouth every 4 hours as needed. MULTIVIT WITH IRON-MINERALS (MULTIVITAMIN AND MINERALS ORAL) Take 1 tablet by mouth once daily. BMIVZSAB-IAA-DJITGGUZL-VIT D3 ORAL Take 3 tablets by mouth once daily. cholecalciferol (VITAMIN D-3) 2,000 unit tablet Take 2,000 Units by mouth once daily. COMPOUNDED PRESCRIPTION BIPAP 1 liter bleed in 12/5 cm. RR 14 Replacement machine with heated humidity. CPAP mask and supplies. Use nightly. Anne-Marie Dunbar (Call Center Recruiter) 11/17/2020 The above information has been discussed and reviewed with the pharmacy order entry technician. Any addendums are in bold italics and/or . ? Lorena Anderson, PharmD, [facility]11-02-2015 History of Past illness Narrative* Problem Noted Date Resolved Date Cervical polyp 12/15/2014 11/18/2019 documented as of this encounter (statuses as of 05/06/2021) [facility]11-02-2015 History of Past illness Narrative* Problem Noted Date Resolved Date Cervical polyp 12/15/2014 11/18/2019 documented as of this encounter (statuses as of 05/06/2021) [facility]11-02-2015 History of Past illness Narrative* Problem Noted Date Resolved Date Cervical polyp 12/15/2014 11/18/2019 documented as of this encounter (statuses as of 05/06/2021) [address] History of Past illness Narrative* Problem Noted Date Resolved Date Cervical polyp 12/15/2014 11/18/2019 documented as of this encounter (statuses as of 05/10/2021) [address] History of Past illness Narrative* Problem Noted Date Resolved Date Cervical polyp 12/15/2014 11/18/2019 documented as of this encounter (statuses as of 05/20/2021) [address] History of Past illness Narrative* Problem Noted Date Resolved Date Cervical polyp 12/15/2014 11/18/2019 documented as of this encounter (statuses as of 06/17/2021) [address] History of Past illness Narrative* Problem Noted Date Resolved Date Cervical polyp 12/15/2014 11/18/2019 documented as of this encounter (statuses as of 06/17/2021) [address] History of Past illness Narrative* Problem Noted Date Resolved Date Cervical polyp 12/15/2014 11/18/2019 documented as of this encounter (statuses as of 06/18/2021) [address] History of Past illness Narrative* Problem Noted Date Resolved Date Cervical polyp 12/15/2014 11/18/2019 documented as of this encounter (statuses as of 06/28/2021) [address] History of Past illness Narrative* Problem Noted Date Resolved Date Cervical polyp 12/15/2014 11/18/2019 documented as of this encounter (statuses as of 07/20/2021) [address] History of Past illness Narrative* Problem Noted Date Resolved Date Cervical polyp 12/15/2014 11/18/2019 documented as of this encounter (statuses as of 07/30/2021) [address] History of Past illness Narrative* Problem Noted Date Resolved Date Cervical polyp 12/15/2014 11/18/2019 documented as of this encounter (statuses as of 08/10/2021) [address] History of Past illness Narrative* Problem Noted Date Resolved Date Cervical polyp 12/15/2014 11/18/2019 documented as of this encounter (statuses as of 08/18/2021) [address] History of Past illness Narrative* Problem Noted Date Resolved Date Cervical polyp 12/15/2014 11/18/2019 documented as of this encounter (statuses as of 08/18/2021) [address] History of Past illness Narrative* Problem Noted Date Resolved Date Cervical polyp 12/15/2014 11/18/2019 documented as of this encounter (statuses as of 08/27/2021) [address] History of Past illness Narrative* Problem Noted Date Resolved Date Cervical polyp 12/15/2014 11/18/2019 documented as of this encounter (statuses as of 09/03/2021) [address] History of Past illness Narrative* Problem Noted Date Resolved Date Cervical polyp 12/15/2014 11/18/2019 documented as of this encounter (statuses as of 09/16/2021) [address] History of Past illness Narrative* Problem Noted Date Resolved Date Cervical polyp 12/15/2014 11/18/2019 documented as of this encounter (statuses as of 09/16/2021) [address] History of Past illness Narrative* Problem Noted Date Resolved Date Cervical polyp 12/15/2014 11/18/2019 documented as of this encounter (statuses as of 09/27/2021) [address] History of Past illness Narrative* Problem Noted Date Resolved Date Cervical polyp 12/15/2014 11/18/2019 documented as of this encounter (statuses as of 10/05/2021) [address] History of Past illness Narrative* Problem Noted Date Resolved Date Cervical polyp 12/15/2014 11/18/2019 documented as of this encounter (statuses as of 10/21/2021) [address] History of Past illness Narrative* Problem Noted Date Resolved Date Cervical polyp 12/15/2014 11/18/2019 documented as of this encounter (statuses as of 10/29/2021) [address] History of Past illness Narrative* Problem Noted Date Resolved Date Cervical polyp 12/15/2014 11/18/2019 documented as of this encounter (statuses as of 10/29/2021) [address] History of Past illness Narrative* Problem Noted Date Resolved Date Cervical polyp 12/15/2014 11/18/2019 documented as of this encounter (statuses as of 10/29/2021) [address] History of Past illness Narrative* Problem Noted Date Resolved Date Cervical polyp 12/15/2014 11/18/2019 documented as of this encounter (statuses as of 10/29/2021) [address] History of Past illness Narrative* Problem Noted Date Resolved Date Cervical polyp 12/15/2014 11/18/2019 documented as of this encounter (statuses as of 10/29/2021) [address] History of Past illness Narrative* Problem Noted Date Resolved Date Cervical polyp 12/15/2014 11/18/2019 documented as of this encounter (statuses as of 11/01/2021) [address] History of Past illness Narrative* Problem Noted Date Resolved Date Cervical polyp 12/15/2014 11/18/2019 documented as of this encounter (statuses as of 11/09/2021) [address] History of Past illness Narrative* Problem Noted Date Resolved Date Cervical polyp 12/15/2014 11/18/2019 documented as of this encounter (statuses as of 11/30/2021) [address] History of Past illness Narrative* Problem Noted Date Resolved Date Cervical polyp 12/15/2014 11/18/2019 documented as of this encounter (statuses as of 12/16/2021) [address] History of Past illness Narrative* Problem Noted Date Resolved Date Cervical polyp 12/15/2014 11/18/2019 documented as of this encounter (statuses as of 01/05/2022) [address] History of Past illness Narrative* Problem Noted Date Resolved Date Cervical polyp 12/15/2014 11/18/2019 documented as of this encounter (statuses as of 01/28/2022) [address] History of Past illness Narrative* Problem Noted Date Resolved Date Cervical polyp 12/15/2014 11/18/2019 documented as of this encounter (statuses as of 01/28/2022) [address] History of Past illness Narrative* Problem Noted Date Resolved Date Cervical polyp 12/15/2014 11/18/2019 documented as of this encounter (statuses as of 02/06/2022) [address] History of Past illness Narrative* Problem Noted Date Resolved Date Cervical polyp 12/15/2014 11/18/2019 documented as of this encounter (statuses as of 03/02/2022) [address] History of Past illness Narrative* Problem Noted Date Resolved Date Cervical polyp 12/15/2014 11/18/2019 documented as of this encounter (statuses as of 03/05/2022) [address] History of Past illness Narrative* Problem Noted Date Resolved Date Cervical polyp 12/15/2014 11/18/2019 documented as of this encounter (statuses as of 03/07/2022) [address] History of Past illness Narrative* Problem Noted Date Resolved Date Cervical polyp 12/15/2014 11/18/2019 documented as of this encounter (statuses as of 03/15/2022) [address] History of Past illness Narrative* Problem Noted Date Resolved Date Cervical polyp 12/15/2014 11/18/2019 documented as of this encounter (statuses as of 04/14/2022) [address] History of Past illness Narrative* Problem Noted Date Resolved Date Cervical polyp 12/15/2014 11/18/2019 documented as of this encounter (statuses as of 05/04/2022) [address] History of Past illness Narrative* Problem Noted Date Resolved Date Cervical polyp 12/15/2014 11/18/2019 documented as of this encounter (statuses as of 05/06/2022) [address] History of Past illness Narrative* Problem Noted Date Resolved Date Cervical polyp 12/15/2014 11/18/2019 documented as of this encounter (statuses as of 05/18/2022) [address] History of Past illness Narrative* Problem Noted Date Resolved Date Cervical polyp 12/15/2014 11/18/2019 documented as of this encounter (statuses as of 05/27/2022) [address] History of Past illness Narrative* Problem Noted Date Resolved Date Cervical polyp 12/15/2014 11/18/2019 documented as of this encounter (statuses as of 07/19/2022) [address] History of Past illness Narrative* Problem Noted Date Diagnosed Date Resolved Date Cervical polyp 12/15/2014 11/18/2019 documented as of this encounter (statuses as of 08/26/2022) [address] History of Past illness Narrative* Problem Noted Date Diagnosed Date Resolved Date Cervical polyp 12/15/2014 11/18/2019 documented as of this encounter (statuses as of 11/25/2022) [address] History of Past illness Narrative* Problem Noted Date Diagnosed Date Resolved Date Cervical polyp 12/15/2014 11/18/2019 documented as of this encounter (statuses as of 11/28/2022) [address] History of Past illness Narrative* Problem Noted Date Diagnosed Date Resolved Date Cervical polyp 12/15/2014 11/18/2019 documented as of this encounter (statuses as of 01/11/2023) [address] History of Past illness Narrative* Problem Noted Date Diagnosed Date Resolved Date Cervical polyp 12/15/2014 11/18/2019 documented as of this encounter (statuses as of 04/06/2023) [address] History of Past illness Narrative* Problem Noted Date Diagnosed Date Resolved Date Cervical polyp 12/15/2014 11/18/2019 documented as of this encounter (statuses as of 04/20/2023) [address] History of Past illness Narrative* Problem Noted Date Diagnosed Date Resolved Date Cervical polyp 12/15/2014 11/18/2019 documented as of this encounter (statuses as of 05/22/2023) [address] History of Past illness Narrative* Problem Noted Date Diagnosed Date Resolved Date Cervical polyp 12/15/2014 11/18/2019 documented as of this encounter (statuses as of 05/25/2023) [address] History of Past illness Narrative* Problem Noted Date Diagnosed Date Resolved Date Cervical polyp 12/15/2014 11/18/2019 documented as of this encounter (statuses as of 05/26/2023) [address] History of Past illness Narrative* Problem Noted Date Diagnosed Date Resolved Date Cervical polyp 12/15/2014 11/18/2019 documented as of this encounter (statuses as of 05/31/2023) [facility] June 09, 2023 3:25pm Note Date/Time June 09, 2023 3:2 5pm [facility] Medical Records Department [address] [place] [address] Counseling Note - Pharmacy 06/09/23 1525 MR#: [id number] Acct: [id number] Name: SONIA KARIMI Rep #:[id number] 2 : 1955 67 From: Judah Tolbert PCP: Dr. Melissa Muhammad MD Status:AD M IN Y Location: [place] [id number] Pharmacy [place] Med Reconciliation Pharmacy Service has performed discharge medication reconciliation for this patient. The patient's discharge medication list was reviewed for discrepancies and discrepancies were resolved. Medications at Discharge Home Medications atorvastatin 10 mg tablet 10 mg PO DAILY@2200 Cholesterol 12/08/20 cholecalciferol (vitamin D3) 25 mcg (1,000 unit) tablet (Vitamin D3) 2,000 unit PO DAILY Supplement 12/08/20 clonidine HCl 0.1 mg tablet 0.1 mg PO BID BP 12/08/20 diclofenac sodium 1 % topical gel (Voltaren Arthritis Pain) 1 ea topical Q6H Pain 12/08/20 sertraline 100 mg tablet 100 mg PO DAILY Mood 12/08/20 hydroxyzine pamoate 25 mg capsule 25 mg PO QHS 30 days #30 caps 01/11/21 orphenadrine citrate 100 mg tablet,extended release 100 mg PO BID PRN muscle spasm #10 tabs 05/02/23 amlodipine 10 mg tablet 10 mg PO DAILY 06/02/23 ketoconazole 2 % topical cream 1 applic topical DAILY 06/02/23 spironolactone 25 mg tablet 25 mg PO DAILY 06/02/23 valsartan 160 mg tablet 160 mg PO DAILY 06/02/23 valsartan 80 mg tablet 80 mg PO DAILY 06/02/23 acetaminophen 500 mg tablet 1,000 mg (2 x 500 mg) PO Q8 #0 tabs 06/09/23 dexamethasone 4 mg tablet 2 mg (1/2 x 4 mg) PO BIDCM #0 tabs 06/09/23 gabapentin 600 mg tablet 600 mg PO TIDCM #0 tabs 06/09/23 meloxicam 15 mg tablet 15 mg PO DAILY #0 tabs 06/09/23 oxycodone 5 mg tablet 2.5 - 5 mg (0.5 - 1 x 5 mg) PO Q4H PRN PRN Pain Score 6- 10#0 tabs 06/09/23 sennosides 8.6 mg-docusate sodium 50 mg tablet (Stool Softener-Stimulant Laxative) 2 tab PO BID #0 tabs 06/09/23 tizanidine 2 mg tablet 2 mg PO Q8H PRN PRN muscle spasms #0 tabs 06/09/23 06/09/23 1525 <Electronically signed by Judah ramos> Date _ Judah Tolbert Cosigner Signature (if applicable): Date CC: ~ Signed [facility] Work Phone: Discharge summary Author Lamont Arzate [facility] June 09, 2023 2:59pm Note Date/Time June 09, 2023 2:4 9pm [facility] Medical Records Department [address] [place] [address] Transfer to [facility] MR#: [id number] Acct: [id number] Name: SONIA KARIMI Rep #:[id number] : 1955 67 From: Lamont Hawkins PCP: Dr. Melissa Muhammad MD Status:AD M IN Certification of patient admission REQUIRED AT TIME OF ADMISSION. I CERTIFY THAT POST-HOSPITAL ECF SERVICES ARE REQUIRED TO BE GIVEN ON AN IN-PATIENT BASIS BECAUSE OF THE ABOVE NAMED PATIENT'S NEED FOR LONG-TERM CARE ON A CONTINUING BASIS FOR THE CONDITION(S) FOR WHICH HE/SHE WAS RECEIVING IN-PATIENT HOSPITAL SERVICES PRIOR TO HIS/HER TRANSFER TO THE F. 06/09/23 4139<Electronically signed by Lamont Arzate MD> Diet Diet Order/Speech Therapy: 06/08/23 09:43 Diet: Regular - General Is pt able to select menu?: Yes Routine Orders/Code Status Suppository Type: Dulcolax 10mg Suppository Frequency: Daily PRN Wound(s) LT buttock: Wound Type: Pressure Injury LT thigh-posteriorly: Wound Type: Pressure Injury right lower back: Wound Type: Surgical Incision Therapies Weight Bearing: Weight bearing as tolerated Extremity Affected:: Bilateral Lower Physical Therapy: Eval and Treat Occupational Therapy: Eval and Treat Speech Therapy: Eval and Treat Problem/Diagnosis (1) Status post lumbar discectomy: Status: Acute Code(s): Z98.890 - Other specified postprocedural states Plan The patient is a 67 y/o F came to ED with low back pain and right lower extremity pain for about 1 month. History of 2 back surgeries in the past. Patient in wheelchair. She also has disequilibrium/loss of balance and near fall situation, guarded weight between the wall of the toilet on day of admission #1. Adult FTT secondary to Acute Intractable Back Pain lumbar spine with right lower extremity radiculopathy with adult failure to thrive, debility, inability to ambulate: Patient being admitted on MedSur floor. PT and OT. Pain control,gabapentin, bowel regimen. Patient not able to lay flat for MRI lumbar spine, on the weekend but had MRI today in the morning 06/05: MRI finding discussed with the patient. Has severe central canal stenosisat L4-L5 and L5-S1 and large amount of extruded disc material. Pain seems better than yesterday. Spine surgeon Dr. Kwasi Cheatham called to see the patientin afternoon. Requested pain management consult Dr. Panchal for evaluation for epidural injection. On multiple opioid and steroid medications. Medrol oral Dosepak changed to dexamethasone. Tizanidine and oxycodone. 06/06: Patient evaluated by both spine surgeon Dr. Kwasi Cheatham and Dr. Wheatley. Scheduled for surgery tomorrow. Preop EKG and labs ordered. 06/07: Patient had L4-5 left-sided laminotomy, discectomy for large L4-5 central disc herniation. Clinically patient feels much improvement in pain after surgery. Surgical dressing is dry.Patient has leukocytosis from being on a steroid. Hyperglycemia from steroid.Patient does not have history of DM #2. Chronic normocytic anemia: Admission hemoglobin 11.1, MCV 86.4, baseline hemoglobin similar range, 06/04/23 Hgb 11, MCV 87.5. #3. Hypertension: Continue home regimen including valsartan, spironolactone, amlodipine, clonidine but clarifying, PRN hydralazine. #4. Hyperlipidemia: continue patient on statin therapy. #5. Anxiety and depression: We will continue patient home sertraline and hydroxyzine home regimen. #6. PAF: From current list does not appear to be on rate or rhythm agent, also does not appear to be on any anticoagulant therapy. Previously had been on bothXarelto and metoprolol 25 mg p.o. twice daily but does not appear to be taking this currently. If issues arise may restart. #7. COPD: Not on any chronic regimen, will place on ATC budesonide therapy, PRNalbuterol, HOB, IS parameters. #8. Morbid Obesity: Weight loss and lifestyle changes encouraged. #9. Former alcohol abuse: Patient sober for 45 years, encourage continued complete sobriety. #10. Former tobacco use: Encourage continued tobacco cessation. #11. IRIS: BiPAP nightly. #12. DVT prophylaxis: Lovenox Accu-Chek before meals and at bedtime insulin coverage Humalog sliding scale. Held and will be hold for further 72 hours after surgery and next dose of 06/11/2023 at 10 AM. Bilateral SCDs #13. CODE status: Full code. Clinical Impression(s) from Imaging Studies Lumbar Spine X-Ray 06/02/23 18:35 IMPRESSION: No evidence of lumbar spinal fracture or spondylolisthesis. Severe multilevel degenerative disc disease and spondylosis. Lumbar Spine MRI 06/05/23 09:30 IMPRESSION: 1. Multilevel moderate to severe degenerative changes, as described above. 2. Severe central canal stenosis at L4-L5 and L5-S1 3. Large amount of extruded disc material originating from L4-L5 traveling down to the L5-S1 space Allergies/Procedures Done in Hospital Allergies hydrocodone [From Vicodin] Allergy (Verified 06/02/23 16:42) Anaphylaxis lorazepam [From Ativan] Allergy (Verified 06/02/23 16:42) Hives neomycin Allergy (Verified 06/02/23 16:42) Hives Type of Care/Length of Stay Estimated LOS: Convalescent Care Less Than 30 days Type of Care Needed: Skilled Rehab Potential: Good Prognosis: Good Additional Orders/Day of Discharge Day of Discharge: 06/09/23 Dietary and Speech Recommendations Dietitian Recommendations/Changes: continue cardiac diet as ordered; ONS only ifPO intake at meals fails Discharge Plan Admission Admit Date/Time: 06/06/23 12:51 Attending Provider: Lamont Arzate Primary Care Provider: Melissa Muhammad Consulting Providers: Monika Mendoza; Kwasi Cheatham Instructions Additional Instructions / Restrictions: Hold antihypertensive medications clonidine, amlodipine and valsartan if SBP less than 130 mmHg Discharge Orders/Prescriptions Prescriptions: New tizanidine 2 mg Tablet 2 mg PO Q8H PRN PRN (Reason: muscle spasms) Qty: 0 0RF sennosides-docusate sodium [Stool Softener-Stimulant Laxat] 8.6-50 mg Tablet 2 tab PO BID Qty: 0 0RF gabapentin 600 mg Tablet 600 mg PO TIDCM Qty: 0 0RF meloxicam 15 mg Tablet 15 mg PO DAILY Qty: 0 0RF Rx Instructions: For about 1 week acetaminophen 500 mg Tablet 1,000 mg PO Q8 Qty: 0 0RF Rx Instructions: 3 times daily for 1 week and then 3 times daily as needed for severe pain dexamethasone 4 mg Tablet 2 mg PO BIDCM Qty: 0 0RF Rx Instructions: Decreased to 2 mg twice daily for 3 days 06/12/2023 and 2 mg once daily for 3 days till 06/15/2023 and then 1 mg daily for 3 days till 06/18/2023 and then stop. oxycodone 5 mg Tablet 2.5 - 5 mg PO Q4H PRN PRN (Reason: Pain Score 6-10) Qty: 0 0RF Continued clonidine HCl 0.1 MG tablet 0.1 mg PO BID atorvastatin 10 MG tablet 10 mg PO DAILY@2200 sertraline 100 MG tablet 100 mg PO DAILY cholecalciferol (vitamin D3) [Vitamin D3] 1,000 UNIT tablet 2,000 unit PO DAILY hydroxyzine pamoate 25 mg Capsule 25 mg PO QHS 30 Days Qty: 30 0RF Patient Comments: PT UNSURE IF SHE TAKES THIS MED amlodipine 10 mg tablet 10 mg PO DAILY ketoconazole 2 % cream 1 applic topical DAILY valsartan 80 mg tablet 80 mg PO DAILY Patient Comments: TAKE 160MG IN THE MORNING AND 80 MG IN THE EVENING spironolactone 25 mg tablet 25 mg PO DAILY valsartan 160 mg tablet 160 mg PO DAILY Patient Comments: TAKE 160MG IN THE MORNING AND 80 MG IN THE EVENING Held diclofenac sodium [Voltaren Arthritis Pain] 1 % Gel 1 ea TOPICAL Q6H Hold Instructions: Hold for now orphenadrine citrate 100 mg tablet extended release 100 mg PO BID PRN (Reason: muscle spasm) Qty: 10 0RF Hold Instructions: Hold if as patient already on NSAIDs and oxycodone. Discontinued potassium chloride [Klor-Con M20] 20 mEq Tablet,Er Particles/Crystals 20 meq PO DAILYCM 30 Days Qty: 30 0RF methocarbamol 750 mg Tablet 750 mg PO Q8H 30 Days Qty: 90 0RF gabapentin 300 MG capsule 300 mg PO BID 30 Days Qty: 60 0RF diclofenac sodium 100 mg tablet extended release 24 hr 100 mg PO DAILY oxycodone-acetaminophen 5-325 mg tablet 1 tab PO 4X/DAY PRN PRN (Reason: pain) prednisone 10 mg tablet 10 mg PO DAILY acetaminophen 500 mg Tablet 1,000 mg PO Q6H PRN (Reason: Pain Score 1-10) docusate sodium 100 mg capsule 100 mg PO DAILY Referrals / Follow Up: Melissa Muhammad MD [Primary Care Provider] - Kwasi Cheatham MD [Med Staff - Active Staff] - Within 2 Weeks Disposition Disposition (needs filled in before D/C Order can be placed): Group Home Facility 06/09/[id number] <Electronically signed by Lamont Arzate MD> Cosigner Signature (if applicable): CC: Dr. Monika Mendoza MD; Dr. Kwasi Cheatham MD; Dr. Melissa Muhammad MD ~ [facility] Work Phone: Discharge summary Author Lamont Arzate [facility] June 09, 2023 3:08pm Note Date/Time June 09, 2023 3:0 8pm [facility] Medical Records Department [address] [place] [address] Discharge Summary 06/09/23 145 MR#: [id number] Acct: [id number] Name: SONIA KARIMI Rep #:[id number] : 1955 67 From: Lamont Hawkins PCP: Dr. Melissa Muhammad MD Status:AD M IN [place] [facility] [place] Providers Date of Admission: 06/06/23 Date of Discharge: 06/09/23 Primary Care Physician: Dr. Melissa Muhammad MD Consultations 06/06/23 11:46 Consult: Orthopedics Routine Consulting Provider: Kwasi Cheahtam Reason for Consult: Severe L4-5, L5-S1 canal stenosis with disc extrusion, sciatic pain, spasm EMERGENT Consult: No MD Notified: Yes Date Notified: 06/06/23 Time Notified: 11:46 Method of Notification: Verbal Reason For Visit: INTRACTABLE BACK PAIN Diagnosis Discharge Diagnosis (1) Status post lumbar discectomy: Status: Acute Code(s): Z98.890 - Other specified postprocedural states Plan The patient is a 67 y/o F came to ED with low back pain and right lower extremity pain for about 1 month. History of 2 back surgeries in the past. Patient in wheelchair. She also has disequilibrium/loss of balance and near fall situation, guarded weight between the wall of the toilet on day of admission #1. Adult FTT secondary to Acute Intractable Back Pain lumbar spine with right lower extremity radiculopathy with adult failure to thrive, debility, inability to ambulate: Patient being admitted on MedSur floor. PT and OT. Pain control,gabapentin, bowel regimen. Patient not able to lay flat for MRI lumbar spine, on the weekend but had MRI today in the morning 06/05: MRI finding discussed with the patient. Has severe central canal stenosisat L4-L5 and L5-S1 and large amount of extruded disc material. Pain seems better than yesterday. Spine surgeon Dr. Kwasi Cheatham called to see the patientin afternoon. Requested pain management consult Dr. Panchal for evaluation for epidural injection. On multiple opioid and steroid medications. Medrol oral Dosepak changed to dexamethasone. Tizanidine and oxycodone. 06/06: Patient evaluated by both spine surgeon Dr. Kwasi Cheatham and Dr. Wheatley. Scheduled for surgery tomorrow. Preop EKG and labs ordered. 06/07: Patient had L4-5 left-sided laminotomy, discectomy for large L4-5 central disc herniation. Clinically patient feels much improvement in pain after surgery. Surgical dressing is dry.Patient has leukocytosis from being on a steroid. Hyperglycemia from steroid.Patient does not have history of DM 06/08: Patient is doing good. Sitting upright with legs hanging from the side ofthe bed. Surgical dressing is dry. No significant tenderness. Patient able tolift both legs. Pain has much improved after the dressing. Patient is discharged to TCU with tapering dose of dexamethasone to 2 mg twice daily for 3 days, 1 mg twice daily for 3 days and then 1 mg once daily and then stop. Patient also on meloxicam, Neurontin, tizanidine and oxycodone for pain control #2. Chronic normocytic anemia: Admission hemoglobin 11.1, MCV 86.4, baseline hemoglobin similar range, 06/04/23 Hgb 11, MCV 87.5. #3. Hypertension: Continue home regimen including valsartan, spironolactone, amlodipine, clonidine but clarifying, PRN hydralazine. 06/08 blood pressure is controlled. Patient on valsartan, spironolactone and amlodipine #4. Hyperlipidemia: continue patient on statin therapy. #5. Anxiety and depression: We will continue patient home sertraline and hydroxyzine home regimen. #6. PAF: From current list does not appear to be on rate or rhythm agent, also does not appear to be on any anticoagulant therapy. Previously had been on bothXarelto and metoprolol 25 mg p.o. twice daily but does not appear to be taking this currently. If issues arise may restart. #7. COPD: Not on any chronic regimen, will place on ATC budesonide therapy, PRNalbuterol, HOB, IS parameters. #8. Morbid Obesity: Weight loss and lifestyle changes encouraged. #9. Former alcohol abuse: Patient sober for 45 years, encourage continued complete sobriety. #10. Former tobacco use: Encourage continued tobacco cessation. #11. IRIS: BiPAP nightly. #12. DVT prophylaxis: Lovenox Accu-Chek before meals and at bedtime insulin coverage Humalog sliding scale. Held and will be hold for further 72 hours after surgery and next dose of 06/11/2023 at 10 AM. Bilateral SCDs #13. CODE status: Full code. Discharge medication reconciliation done. Discharge follow-up instructions completed. Discharge process discussed with the patient and all questions wereanswered to patient's satisfaction. Follow with PCP in 1 to 2 weeks Total time spent, exact 35 minutes on discharge meds reconciliation, examination, coordination of care with nurses and ancillary staff, review of imaging and blood test and discussion with the patient on follow-up instructions. Clinical Impression(s) from Imaging Studies Lumbar Spine X-Ray 06/02/23 18:35 IMPRESSION: No evidence of lumbar spinal fracture or spondylolisthesis. Severe multilevel degenerative disc disease and spondylosis. Lumbar Spine MRI 06/05/23 09:30 IMPRESSION: 1. Multilevel moderate to severe degenerative changes, as described above. 2. Severe central canal stenosis at L4-L5 and L5-S1 3. Large amount of extruded disc material originating from L4-L5 traveling down to the L5-S1 space Medications at Discharge Home Medications atorvastatin 10 mg tablet 10 mg PO DAILY@2200 Cholesterol 12/08/20 cholecalciferol (vitamin D3) 25 mcg (1,000 unit) tablet (Vitamin D3) 2,000 unit PO DAILY Supplement 12/08/20 clonidine HCl 0.1 mg tablet 0.1 mg PO BID BP 12/08/20 diclofenac sodium 1 % topical gel (Voltaren Arthritis Pain) 1 ea topical Q6H Pain 12/08/20 sertraline 100 mg tablet 100 mg PO DAILY Mood 12/08/20 hydroxyzine pamoate 25 mg capsule 25 mg PO QHS 30 days #30 caps 01/11/21 orphenadrine citrate 100 mg tablet,extended release 100 mg PO BID PRN muscle spasm #10 tabs 05/02/23 amlodipine 10 mg tablet 10 mg PO DAILY 06/02/23 ketoconazole 2 % topical cream 1 applic topical DAILY 06/02/23 spironolactone 25 mg tablet 25 mg PO DAILY 06/02/23 valsartan 160 mg tablet 160 mg PO DAILY 06/02/23 valsartan 80 mg tablet 80 mg PO DAILY 06/02/23 acetaminophen 500 mg tablet 1,000 mg (2 x 500 mg) PO Q8 #0 tabs 06/09/23 dexamethasone 4 mg tablet 2 mg (1/2 x 4 mg) PO BIDCM #0 tabs 06/09/23 gabapentin 600 mg tablet 600 mg PO TIDCM #0 tabs 06/09/23 meloxicam 15 mg tablet 15 mg PO DAILY #0 tabs 06/09/23 oxycodone 5 mg tablet 2.5 - 5 mg (0.5 - 1 x 5 mg) PO Q4H PRN PRN Pain Score 6- 10#0 tabs 06/09/23 sennosides 8.6 mg-docusate sodium 50 mg tablet (Stool Softener-Stimulant Laxative) 2 tab PO BID #0 tabs 06/09/23 tizanidine 2 mg tablet 2 mg PO Q8H PRN PRN muscle spasms #0 tabs 06/09/23 Physical Exam Narrative Seen and examined. Back pain has much improved. Patient is sitting upright on the chair. Her painis controlled. Discussed with the surgeon Dr. Cheatham. Admitted with back pain, sciatic in nature with radiation to right buttock, backof thigh, sciatica in nature past 4 weeks. Had cervical surgery and thoracic surgery in [facility]. Physical exam General: Alert, Oriented x3, Cooperative HEENT: Atraumatic, PERRLA, EOMI, Normocephalic Oral: Oral mucosa moist no Gingival or Mucosal Lesions/ Ulcerations Neck: Supple, No JVD, Negative Carotid Bruits Chest wall/Lungs: Air entry diminished in bilateral lung bases. No crepitation/rhonchi Cardiovascular: Irregular rhythm, Normal S1, Normal S2, systolic murmur Abdomen: Bowel Sounds Present, Soft, Non Tender, Non-Distended : No Atkins catheter. No dysuria. No renal angle tenderness. No suprapubic tenderness. Extremities: No edema, Capillary Refill Less than 3 Seconds Skin: Surgical dressing on the lumbar back is dry. Mild tenderness around the operative region. Musculoskeletal: Numbness tingling improved. Muscle strength 4+/5 at knees and hips likely due to pain and spasm Neurological: Cranial nerves II-XII grossly intact, DTR 2+/4. L4-5 L5-S1 radiculopathy pain has much improved. Psych/Mental Status: Flat affect Weight / BMI Weight Weight: 263 lb 7.238 oz Body Mass Index (BMI) 42.3 ABG / Lab / Microbiology Data 06/09/23 05:35 06/09/23 05:35 Laboratory: Laboratory Results - last 24 hr 06/09/23 05:35: WBC 26.2 H, RBC 4.46, Hgb 12.3, Hct 37.5, MCV 84.1, MCH 27.6, MCHC 32.8, RDW Std Deviation 41.1, RDW Coeff of Laila 13.4, Plt Count 506 H, MPV 8.9, Immature Gran % (Auto) 0.800, Neut % (Auto) 91.8 H, Lymph % (Auto) 2.7 L, [place] % (Auto) 4.6, Eos % (Auto) 0.0, Baso % (Auto) 0.1, Absolute Neuts (auto) 24.0 H, Absolute Lymphs (auto) 0.71 L, Nucleated RBC % 0, Differential Comment SCANNED, Sodium 131 L, Potassium 5.0, Chloride 99, Carbon Dioxide 26.0, Anion Gap 6, BUN 32 H, Creatinine 0.80, Estim Creat Clear Calc 87.36, Est GFR (MDRD) Af Amer 91, Est GFR (MDRD) Non-Af 75, BUN/Creatinine Ratio 39.9 H, Glucose 149 H, Calcium 8.9, Total Bilirubin 0.30, AST 22, ALT 26, Alkaline Phosphatase 124 H,Total Protein 6.8, Albumin 3.0 L, Globulin 3.8, Albumin/Globulin Ratio 0.8 L Radiography Diagnostic Testing: Radiology Impression Spine X-Ray 06/08/23 06:30 IMPRESSION: Intraoperative imaging provided for L4-5 decompression. Electronically Signed: Francisco Zavaleta MD at 15:38 EDT Reading Location ID and State: [address] [place] [address] , Service support , Meaningful Use Info Meaningful Use Meaningful Use Diagnoses (Choose all that apply): None applicable Ischemic Stroke Statin Dosing Therapy Reference: STATIN DOSE THERAPY REFERENCE: * Patients > 75 years receive moderate or high dose statin therapy. * Patients 75 years or YOUNGER should receive HIGH intensity statin dose unless contraindicated. You will be required to document reason for non-treatment if statin daily dose does not meet guidelines. HIGH DOSE STATIN THERAPY DAILY Atorvastatin > than or = to 40 mg Rosuvastatin > than or = to 20 mg Amlodipine + Atorvastatin > than or = to 2.5/40 mg Ezetimibe + Simvastatin 10/80 mg Simvastatin 80mg Discharge Plan Admission Admit Date/Time: 06/06/23 12:51 Attending Provider: Lamont Arzate Primary Care Provider: Melissa Muhammad Consulting Providers: Monika Mendoza; Kwasi Cheatham Instructions Additional Instructions / Restrictions: Hold antihypertensive medications clonidine, amlodipine and valsartan if SBP less than 130 mmHg Discharge Orders/Prescriptions Prescriptions: New tizanidine 2 mg Tablet 2 mg PO Q8H PRN PRN (Reason: muscle spasms) Qty: 0 0RF sennosides-docusate sodium [Stool Softener-Stimulant Laxat] 8.6-50 mg Tablet 2 tab PO BID Qty: 0 0RF gabapentin 600 mg Tablet 600 mg PO TIDCM Qty: 0 0RF meloxicam 15 mg Tablet 15 mg PO DAILY Qty: 0 0RF Rx Instructions: For about 1 week acetaminophen 500 mg Tablet 1,000 mg PO Q8 Qty: 0 0RF Rx Instructions: 3 times daily for 1 week and then 3 times daily as needed for severe pain dexamethasone 4 mg Tablet 2 mg PO BIDCM Qty: 0 0RF Rx Instructions: Decreased to 2 mg twice daily for 3 days 06/12/2023 and 2 mg once daily for 3 days till 06/15/2023 and then 1 mg daily for 3 days till 06/18/2023 and then stop. oxycodone 5 mg Tablet 2.5 - 5 mg PO Q4H PRN PRN (Reason: Pain Score 6-10) Qty: 0 0RF Continued clonidine HCl 0.1 MG tablet 0.1 mg PO BID atorvastatin 10 MG tablet 10 mg PO DAILY@2200 sertraline 100 MG tablet 100 mg PO DAILY cholecalciferol (vitamin D3) [Vitamin D3] 1,000 UNIT tablet 2,000 unit PO DAILY hydroxyzine pamoate 25 mg Capsule 25 mg PO QHS 30 Days Qty: 30 0RF Patient Comments: PT UNSURE IF SHE TAKES THIS MED amlodipine 10 mg tablet 10 mg PO DAILY ketoconazole 2 % cream 1 applic topical DAILY valsartan 80 mg tablet 80 mg PO DAILY Patient Comments: TAKE 160MG IN THE MORNING AND 80 MG IN THE EVENING spironolactone 25 mg tablet 25 mg PO DAILY valsartan 160 mg tablet 160 mg PO DAILY Patient Comments: TAKE 160MG IN THE MORNING AND 80 MG IN THE EVENING Held diclofenac sodium [Voltaren Arthritis Pain] 1 % Gel 1 ea TOPICAL Q6H Hold Instructions: Hold for now orphenadrine citrate 100 mg tablet extended release 100 mg PO BID PRN (Reason: muscle spasm) Qty: 10 0RF Hold Instructions: Hold if as patient already on NSAIDs and oxycodone. Discontinued potassium chloride [Klor-Con M20] 20 mEq Tablet,Er Particles/Crystals 20 meq PO DAILYCM 30 Days Qty: 30 0RF methocarbamol 750 mg Tablet 750 mg PO Q8H 30 Days Qty: 90 0RF gabapentin 300 MG capsule 300 mg PO BID 30 Days Qty: 60 0RF diclofenac sodium 100 mg tablet extended release 24 hr 100 mg PO DAILY oxycodone-acetaminophen 5-325 mg tablet 1 tab PO 4X/DAY PRN PRN (Reason: pain) prednisone 10 mg tablet 10 mg PO DAILY acetaminophen 500 mg Tablet 1,000 mg PO Q6H PRN (Reason: Pain Score 1-10) docusate sodium 100 mg capsule 100 mg PO DAILY Referrals / Follow Up: Kwasi Cheatham MD [Med Staff - Active Staff] - Within 2 Weeks Melissa Muhammad MD [Primary Care Provider] - Disposition Disposition (needs filled in before D/C Order can be placed): Group Home Facility Charges/Coding Visit Charges Inpatient E&M: 15505 Disch Hosp >30min 06/09/23 1508 <Electronically signed by Lamont Arzate MD> Cosigner Signature (if applicable): CC: Dr. Melissa Muhammad MD; Dr. Lamont Arzate MD~ Signed [facility] Work Phone: Evaluation note* Diagnosis Osteoarthritis, unspecified osteoarthritis type, unspecified site documented in this encounter [facility] note* Diagnosis Cervical myopathy Myopathy, unspecified Primary osteoarthritis of both knees Primary localized osteoarthrosis, lower leg Degeneration of lumbar intervertebral disc Degeneration of lumbar or lumbosacral intervertebral disc Hyperlipidemia, unspecified hyperlipidemia type documented [facility]* Diagnosis Depression, unspecified depression type Essential hypertension Unspecified essential hypertension documented [facility]* Diagnosis Myelopathy (HCC)- Primary Unspecified disease of spinal cord documented in this encounter [facility] note* Diagnosis Postlaminectomy syndrome, not elsewhere classified- Primary Myelopathy (HCC) Unspecified disease of spinal cord Spondylosis with myelopathy, thoracic region S/P laminectomy Other postprocedural status Fusion of spine of thoracic region Congenital fusion of spine (vertebra) Leg weakness, bilateral Other musculoskeletal symptoms referable to limbs Essential hypertension Unspecified essential hypertension Depression, unspecified depression type Hyperlipidemia, unspecified hyperlipidemia type Encounter for screening for diabetes mellitus Screening for diabetes mellitus IFG (impaired fasting glucose) Impaired fasting glucose Colon cancer screening Special screening for malignant neoplasms, colon documented in this encounter [facility]* Diagnosis Cervical myopathy Myopathy, unspecified Primary osteoarthritis of both knees Primary localized osteoarthrosis, lower leg Degeneration of lumbar intervertebral disc Degeneration of lumbar or lumbosacral intervertebral disc documented in this encounter [facility]* Diagnosis Osteoarthritis, unspecified osteoarthritis type, unspecified site documented in this encounter [facility]* Diagnosis Osteoarthritis, unspecified osteoarthritis type, unspecified site [facility] Diagnosis Encounter for screening mammogram for breast cancer documented in this encounter [facility] note* Diagnosis Encounter for screening mammogram for breast cancer documented in this encounter [facility] note* Diagnosis Cervical myopathy Myopathy, unspecified Primary osteoarthritis of both knees Primary localized osteoarthrosis, lower leg Degeneration of lumbar intervertebral disc Degeneration of lumbar or lumbosacral intervertebral disc documented [facility]* Diagnosis Postlaminectomy syndrome, not elsewhere classified- Primary Wheelchair dependent Wheelchair dependence Osteoarthritis of multiple joints, unspecified osteoarthritis type BMI 40.0-44.9, adult (HCC) Body Mass Index 40.0-44.9, adult IFG (impaired fasting glucose) Impaired fasting glucose Essential hypertension Unspecified essential hypertension Hyperlipidemia, unspecified hyperlipidemia type Anemia, unspecified type Leg weakness, bilateral Other musculoskeletal symptoms referable to limbs IRIS treated with BiPAP Asymptomatic postmenopausal status [facility] Diagnosis Postlaminectomy syndrome, not elsewhere classified- Primary documented in this [facility]* Diagnosis Encounter for immunization- Primary Need for other specified prophylactic vaccination against single bacterial disease Screening for colon cancer Special screening for malignant neoplasms, colon Ventricular tachycardia, non-sustained (HCC) Paroxysmal ventricular tachycardia Paraparesis (HCC) Paraplegia Essential hypertension Unspecified essential hypertension Hyperlipidemia, unspecified hyperlipidemia type Depression, unspecified depression type documented in this [facility]* Diagnosis Osteoarthritis, unspecified osteoarthritis type, unspecified site [facility] Diagnosis Wheelchair dependent- Primary Wheelchair dependence Postlaminectomy syndrome, not elsewhere classified Osteoarthritis of multiple joints, unspecified osteoarthritis type BMI 40.0-44.9, adult (HCC) Body Mass Index 40.0-44.9, adult Leg weakness, bilateral Other musculoskeletal symptoms referable to limbs Spondylosis with myelopathy, thoracic region documented in this [facility]* Diagnosis Cervical myopathy Myopathy, unspecified Primary osteoarthritis of both knees Primary localized osteoarthrosis, lower leg Degeneration of lumbar intervertebral disc Degeneration of lumbar or lumbosacral intervertebral disc [facility]* Diagnosis Right shoulder pain, unspecified chronicity- Primary [facility]* Diagnosis Rash and nonspecific skin eruption on right thigh Rash and other nonspecific skin eruption documented [facility] this [facility] noteNo assessment information availableWMed[facility] Work Phone: Evaluation note* Diagnosis Wound infection- Primary Posttraumatic wound infection not elsewhere classified Cat scratch Other and unspecified superficial injury of other, multiple, and unspecified sites, without mention of infection [facility]* Diagnosis Leg weakness, bilateral- Primary Other musculoskeletal symptoms referable to limbs Fusion of spine of thoracic region Congenital fusion of spine (vertebra) Spinal stenosis of lumbar region with neurogenic claudication Spinal stenosis, lumbar region, with neurogenic claudication Spondylosis with myelopathy, thoracic region Lumbar radiculopathy Thoracic or lumbosacral neuritis or radiculitis, unspecified Severe low back pain Lumbago Acute right-sided back pain with sciatica Class 3 severe obesity due to excess calories without serious comorbidity with body mass index (BMI) of 45.0 to 49.9 in adult [facility] Diagnosis Onset Date Resolution Status Adult failure to thrive acut e At high risk for falls acute Intractable back pain acute Chronic back pain [facility] Work Phone: Evaluation note* Diagnosis Onset Date Resolution Status Adult failure to thrive acut e At high risk for falls acute Intractable back pain acute Lumbar radiculopathy, acute acute Status post lumbar discectomy acute Stenosis, spinal, lumbar acu te Chronic back pain [facility] Work Phone: Evaluation note* Diagnosis Encounter for screening mammogram for breast cancer documented in this encounter [facility] note* Diagnosis Leg weakness Other musculoskeletal symptoms referable to limbs Obesity, Class III, BMI 40-49.9 (morbid obesity) (HCC) Morbid obesity Primary osteoarthritis of both knees Primary localized osteoarthrosis, lower leg Cervical spondylosis with myelopathy Leg weakness, bilateral Other musculoskeletal symptoms referable to limbs Hyperlipidemia Other and unspecified hyperlipidemia Thyroid nodule Nontoxic uninodular goiter Ventricular tachycardia, non-sustained (HCC) Paroxysmal ventricular tachycardia Spondylosis with myelopathy, thoracic region- Primary Postoperative pain Other acute postoperative pain Pseudogout of right knee Acute postoperative pain Other acute postoperative pain Fusion of spine of thoracic region 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, thoracic region Abnormal urinalysis Other nonspecific finding on examination of urine Rash and nonspecific skin eruption on right thigh Rash and other nonspecific skin eruption Class 3 severe obesity due to excess calories without serious comorbidity with body mass index (BMI) of 45.0 to 49.9 in adult ([facility]) Essential hypertension Unspecified essential hypertension IRIS treated with BiPAP Paronychia of right middle finger Essential hypertension Unspecified essential hypertension Class 3 severe obesity due to excess calories without serious comorbidity with body mass index (BMI) of 45.0 to 49.9 in adult IRIS treated with BiPAP Paronychia of right middle finger Fusion of spine of thoracic region Congenital fusion of spine (vertebra) Acute postoperative pain Other acute postoperative pain Pseudogout of right knee Abnormal urinalysis Other nonspecific finding on examination of urine Rash and nonspecific skin eruption on right thigh Rash and other nonspecific skin eruption Spondylosis with myelopathy, thoracic region Leg weakness, bilateral Other musculoskeletal symptoms referable to limbs Fusion of spine of thoracic region Congenital fusion of spine (vertebra) [facility]* Diagnosis Leg weakness Other musculoskeletal symptoms referable to limbs Obesity, Class III, BMI 40-49.9 (morbid obesity) (HCC) Morbid obesity Primary osteoarthritis of both knees Primary localized osteoarthrosis, lower leg Cervical spondylosis with myelopathy Hyperlipidemia Other and unspecified hyperlipidemia Thyroid nodule Nontoxic uninodular goiter Ventricular tachycardia, non-sustained (HCC) Paroxysmal ventricular tachycardia Spondylosis with myelopathy, thoracic region- Primary Postoperative pain Other acute postoperative pain Pseudogout of right knee Acute postoperative pain Other acute postoperative pain Fusion of spine of thoracic region 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9 in adult IRIS treated with BiPAP Paronychia of right middle finger Fusion of spine of thoracic region Congenital fusion of spine (vertebra) Acute postoperative pain Other acute postoperative pain Pseudogout of right knee Abnormal urinalysis Other nonspecific finding on examination of urine Rash and nonspecific skin eruption on right thigh Rash and other nonspecific skin eruption S/P lumbar discectomy- Primary Other postprocedural status S/P laminectomy Other postprocedural status History of humerus fracture Personal history of traumatic fracture History of fall Personal history of fall Hyperlipidemia, unspecified hyperlipidemia type Chronic obstructive pulmonary disease, unspecified COPD type ([facility]) Essential hypertension Unspecified essential hypertension Paraparesis ([facility]) Paraplegia Major depressive disorder, recurrent, mild ([facility]) Major depressive disorder, recurrent episode, mild History of insomnia Personal history of other specified diseases Vitamin D deficiency Unspecified vitamin D deficiency Constipation, unspecified constipation type Wheelchair dependent Wheelchair dependence Gastroesophageal reflux disease, unspecified whether esophagitis present [facility] Leg weakness Other musculoskeletal symptoms referable to limbs Obesity, Class III, BMI 40-49.9 (morbid obesity) ([facility]) Morbid obesity Primary osteoarthritis of both knees Primary localized osteoarthrosis, lower leg Cervical spondylosis with myelopathy Hyperlipidemia Other and unspecified hyperlipidemia Thyroid nodule Nontoxic uninodular goiter Ventricular tachycardia, non-sustained ([facility]) Paroxysmal ventricular tachycardia Spondylosis with myelopathy, thoracic region- Primary Postoperative pain Other acute postoperative pain Pseudogout of right knee Acute postoperative pain Other acute postoperative pain Fusion of spine of thoracic region 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9 in adult IRIS treated with BiPAP Paronychia of right middle finger Fusion of spine of thoracic region Congenital fusion of spine (vertebra) Acute postoperative pain Other acute postoperative pain Pseudogout of right knee Abnormal urinalysis Other nonspecific finding on examination of urine Rash and nonspecific skin eruption on right thigh Rash and other nonspecific skin eruption Paraparesis (HCC)- Primary Paraplegia History of fall Personal history of fall History of humerus fracture Personal history of traumatic fracture S/P laminectomy Other postprocedural status S/P lumbar discectomy Other postprocedural status [facility] Leg weakness Other musculoskeletal symptoms referable to limbs Obesity, Class III, BMI 40-49.9 (morbid obesity) Morbid obesity Primary osteoarthritis of both knees Primary localized osteoarthrosis, lower leg Cervical spondylosis with myelopathy Hyperlipidemia Other and unspecified hyperlipidemia Thyroid nodule Nontoxic uninodular goiter Ventricular tachycardia, non-sustained (HCC) Paroxysmal ventricular tachycardia Spondylosis with myelopathy, thoracic region- Primary Postoperative pain Other acute postoperative pain Pseudogout of right knee Acute postoperative pain Other acute postoperative pain Fusion of spine of thoracic region 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, thoracic region Abnormal urinalysis Other nonspecific finding on examination of urine Rash and nonspecific skin eruption on right thigh Rash and other nonspecific skin eruption Class 3 severe obesity due to excess calories without serious comorbidity with body mass index (BMI) of 45.0 to 49.9 in adult Essential hypertension Unspecified essential hypertension IRIS treated with BiPAP Paronychia of right middle finger Essential hypertension Unspecified essential hypertension Class 3 severe obesity due to excess calories without serious comorbidity with body mass index (BMI) of 45.0 to 49.9 in adult IRIS treated with BiPAP Paronychia of right middle finger Fusion of spine of thoracic region Congenital fusion of spine (vertebra) Acute postoperative pain Other acute postoperative pain Pseudogout of right knee Abnormal urinalysis Other nonspecific finding on examination of urine Rash and nonspecific skin eruption on right thigh Rash and other nonspecific skin eruption Spinal stenosis, lumbar region with neurogenic claudication- Primary [facility] Leg weakness Other musculoskeletal symptoms referable to limbs Obesity, Class III, BMI 40-49.9 (morbid obesity) Morbid obesity Primary osteoarthritis of both knees Primary localized osteoarthrosis, lower leg Cervical spondylosis with myelopathy Hyperlipidemia Other and unspecified hyperlipidemia Thyroid nodule Nontoxic uninodular goiter Ventricular tachycardia, non-sustained (HCC) Paroxysmal ventricular tachycardia Spondylosis with myelopathy, thoracic region- Primary Postoperative pain Other acute postoperative pain Pseudogout of right knee Acute postoperative pain Other acute postoperative pain Fusion of spine of thoracic region 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, thoracic region Abnormal urinalysis Other nonspecific finding on examination of urine Rash and nonspecific skin eruption on right thigh Rash and other nonspecific skin eruption Class 3 severe obesity due to excess calories without serious comorbidity with body mass index (BMI) of 45.0 to 49.9 in adult Essential hypertension Unspecified essential hypertension IRIS treated with BiPAP Paronychia of right middle finger Essential hypertension Unspecified essential hypertension Class 3 severe obesity due to excess calories without serious comorbidity with body mass index (BMI) of 45.0 to 49.9 in adult IRIS treated with BiPAP Paronychia of right middle finger Fusion of spine of thoracic region Congenital fusion of spine (vertebra) Acute postoperative pain Other acute postoperative pain Pseudogout of right knee Abnormal urinalysis Other nonspecific finding on examination of urine Rash and nonspecific skin eruption on right thigh Rash and other nonspecific skin eruption Paraparesis (HCC)- Primary Paraplegia Spinal stenosis, lumbar region with neurogenic claudication Fusion of spine of thoracic region Congenital fusion of spine (vertebra) Primary osteoarthritis of both knees Primary localized osteoarthrosis, lower leg Cervical spondylosis with myelopathy Self-care deficit Chronic obstructive pulmonary disease, unspecified COPD type (HCC) Constipation, unspecified constipation type Essential hypertension Unspecified essential hypertension Hyperlipidemia, unspecified hyperlipidemia type [facility] Leg weakness Other musculoskeletal symptoms referable to limbs Obesity, Class III, BMI 40-49.9 (morbid obesity) Morbid obesity Primary osteoarthritis of both knees Primary localized osteoarthrosis, lower leg Cervical spondylosis with myelopathy Hyperlipidemia Other and unspecified hyperlipidemia Thyroid nodule Nontoxic uninodular goiter Ventricular tachycardia, non-sustained (HCC) Paroxysmal ventricular tachycardia Spondylosis with myelopathy, thoracic region- Primary Postoperative pain Other acute postoperative pain Pseudogout of right knee Acute postoperative pain Other acute postoperative pain Fusion of spine of thoracic region 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, thoracic region Abnormal urinalysis Other nonspecific finding on examination of urine Rash and nonspecific skin eruption on right thigh Rash and other nonspecific skin eruption Class 3 severe obesity due to excess calories without serious comorbidity with body mass index (BMI) of 45.0 to 49.9 in adult Essential hypertension Unspecified essential hypertension IRIS treated with BiPAP Paronychia of right middle finger Essential hypertension Unspecified essential hypertension Class 3 severe obesity due to excess calories without serious comorbidity with body mass index (BMI) of 45.0 to 49.9 in adult IRIS treated with BiPAP Paronychia of right middle finger Fusion of spine of thoracic region Congenital fusion of spine (vertebra) Acute postoperative pain Other acute postoperative pain Pseudogout of right knee Abnormal urinalysis Other nonspecific finding on examination of urine Rash and nonspecific skin eruption on right thigh Rash and other nonspecific skin eruption OPENED IN ERROR- Primary To allow closing an encounter opened in error (used in Smart[employer]) [facility] Leg weakness Other musculoskeletal symptoms referable to limbs Obesity, Class III, BMI 40-49.9 (morbid obesity) (HCC) Morbid obesity Primary osteoarthritis of both knees Primary localized osteoarthrosis, lower leg Cervical spondylosis with myelopathy Hyperlipidemia Other and unspecified hyperlipidemia Thyroid nodule Nontoxic uninodular goiter Ventricular tachycardia, non-sustained (HCC) Paroxysmal ventricular tachycardia Spondylosis with myelopathy, thoracic region- Primary Postoperative pain Other acute postoperative pain Pseudogout of right knee Acute postoperative pain Other acute postoperative pain Fusion of spine of thoracic region 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9 in adult IRIS treated with BiPAP Paronychia of right middle finger Fusion of spine of thoracic region Congenital fusion of spine (vertebra) Acute postoperative pain Other acute postoperative pain Pseudogout of right knee Abnormal urinalysis Other nonspecific finding on examination of urine Rash and nonspecific skin eruption on right thigh Rash and other nonspecific skin eruption Acute non-recurrent maxillary sinusitis- Primary [facility] Diagnosis Leg weakness Other musculoskeletal symptoms referable to limbs Obesity, Class III, BMI 40-49.9 (morbid obesity) ([facility]) Morbid obesity Primary osteoarthritis of both knees Primary localized osteoarthrosis, lower leg Cervical spondylosis with myelopathy Hyperlipidemia Other and unspecified hyperlipidemia Thyroid nodule Nontoxic uninodular goiter Ventricular tachycardia, non-sustained (HCC) Paroxysmal ventricular tachycardia Spondylosis with myelopathy, thoracic region- Primary Postoperative pain Other acute postoperative pain Pseudogout of right knee Acute postoperative pain Other acute postoperative pain Fusion of spine of thoracic region 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, thoracic region Abnormal urinalysis Other nonspecific finding on examination of urine Rash and nonspecific skin eruption on right thigh Rash and other nonspecific skin eruption Class 3 severe obesity due to excess calories without serious comorbidity with body mass index (BMI) of 45.0 to 49.9 in adult ([facility]) Essential hypertension Unspecified essential hypertension IRIS treated with BiPAP Paronychia of right middle finger Essential hypertension Unspecified essential hypertension Class 3 severe obesity due to excess calories without serious comorbidity with body mass index (BMI) of 45.0 to 49.9 in adult IRIS treated with BiPAP Paronychia of right middle finger Fusion of spine of thoracic region Congenital fusion of spine (vertebra) Acute postoperative pain Other acute postoperative pain Pseudogout of right knee Abnormal urinalysis Other nonspecific finding on examination of urine Rash and nonspecific skin eruption on right thigh Rash and other nonspecific skin eruption Encounter for screening mammogram for breast cancer documented in this encounter [facility] note* Diagnosis Leg weakness Other musculoskeletal symptoms referable to limbs Obesity, Class III, BMI 40-49.9 (morbid obesity) ([facility]) Morbid obesity Primary osteoarthritis of both knees Primary localized osteoarthrosis, lower leg Cervical spondylosis with myelopathy Hyperlipidemia Other and unspecified hyperlipidemia Thyroid nodule Nontoxic uninodular goiter Ventricular tachycardia, non-sustained (HCC) Paroxysmal ventricular tachycardia Spondylosis with myelopathy, thoracic region- Primary Postoperative pain Other acute postoperative pain Pseudogout of right knee Acute postoperative pain Other acute postoperative pain Fusion of spine of thoracic region 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, thoracic region Abnormal urinalysis Other nonspecific finding on examination of urine Rash and nonspecific skin eruption on right thigh Rash and other nonspecific skin eruption Class 3 severe obesity due to excess calories without serious comorbidity with body mass index (BMI) of 45.0 to 49.9 in adult ([facility]) Essential hypertension Unspecified essential hypertension IRIS treated with BiPAP Paronychia of right middle finger Essential hypertension Unspecified essential hypertension Class 3 severe obesity due to excess calories without serious comorbidity with body mass index (BMI) of 45.0 to 49.9 in adult IRIS treated with BiPAP Paronychia of right middle finger Fusion of spine of thoracic region Congenital fusion of spine (vertebra) Acute postoperative pain Other acute postoperative pain Pseudogout of right knee Abnormal urinalysis Other nonspecific finding on examination of urine Rash and nonspecific skin eruption on right thigh Rash and other nonspecific skin eruption Essential hypertension- Primary Unspecified essential hypertension Spinal stenosis, lumbar region with neurogenic claudication Cervical spondylosis with myelopathy Spondylosis with myelopathy, thoracic region Primary osteoarthritis of both shoulders Urinary frequency Microcytosis Other abnormality of red blood cells Hypercalcemia Vitamin D deficiency Unspecified vitamin D deficiency Ingrown right greater toenail Ingrowing nail Class 3 severe obesity due to excess calories without serious comorbidity with body mass index (BMI) of 45.0 to 49.9 in adult Encounter for long-term current use of medication [facility] Diagnosis Leg weakness Other musculoskeletal symptoms referable to limbs Obesity, Class III, BMI 40-49.9 (morbid obesity) ([facility]) Morbid obesity Primary osteoarthritis of both knees Primary localized osteoarthrosis, lower leg Cervical spondylosis with myelopathy Hyperlipidemia Other and unspecified hyperlipidemia Thyroid nodule Nontoxic uninodular goiter Ventricular tachycardia, non-sustained ([facility]) Paroxysmal ventricular tachycardia Spondylosis with myelopathy, thoracic region- Primary Postoperative pain Other acute postoperative pain Pseudogout of right knee Acute postoperative pain Other acute postoperative pain Fusion of spine of thoracic region 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, thoracic region Abnormal urinalysis Other nonspecific finding on examination of urine Rash and nonspecific skin eruption on right thigh Rash and other nonspecific skin eruption Class 3 severe obesity due to excess calories without serious comorbidity with body mass index (BMI) of 45.0 to 49.9 in adult ([facility]) Essential hypertension Unspecified essential hypertension IRIS treated with BiPAP Paronychia of right middle finger Essential hypertension Unspecified essential hypertension Class 3 severe obesity due to excess calories without serious comorbidity with body mass index (BMI) of 45.0 to 49.9 in adult IRIS treated with BiPAP Paronychia of right middle finger Fusion of spine of thoracic region Congenital fusion of spine (vertebra) Acute postoperative pain Other acute postoperative pain Pseudogout of right knee Abnormal urinalysis Other nonspecific finding on examination of urine Rash and nonspecific skin eruption on right thigh Rash and other nonspecific skin eruption S/P lumbar discectomy Other postprocedural status S/P laminectomy Other postprocedural status Major depressive disorder, recurrent, mild Major depressive disorder, recurrent episode, mild Paraparesis (HCC) Paraplegia [facility] Diagnosis Leg weakness Other musculoskeletal symptoms referable to limbs Obesity, Class III, BMI 40-49.9 (morbid obesity) (HCC) Morbid obesity Primary osteoarthritis of both knees Primary localized osteoarthrosis, lower leg Cervical spondylosis with myelopathy Hyperlipidemia Other and unspecified hyperlipidemia Thyroid nodule Nontoxic uninodular goiter Ventricular tachycardia, non-sustained (HCC) Paroxysmal ventricular tachycardia Spondylosis with myelopathy, thoracic region- Primary Postoperative pain Other acute postoperative pain Pseudogout of right knee Acute postoperative pain Other acute postoperative pain Fusion of spine of thoracic region 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9 in adult IRSI treated with BiPAP Paronychia of right middle finger Fusion of spine of thoracic region Congenital fusion of spine (vertebra) Acute postoperative pain Other acute postoperative pain Pseudogout of right knee Abnormal urinalysis Other nonspecific finding on examination of urine Rash and nonspecific skin eruption on right thigh Rash and other nonspecific skin eruption Urinary frequency- Primary [facility] Diagnostic Procedure Only (Routine) - Pending Review Specialty Diagnoses / Procedures Referred By Ankit baeza Referred To Contact BR IMAGING Diagnoses Encounter for screening mammogram for breast cancer Procedures XAVIER SCREENING SCREENING MAMMOGRAPHY BI 2-VIEW BREAST INC Neo Milton, DO [facility] [address] [place] [address] Br Imaging [address] [place] [address] Referral ID Status Reason Start Date Expiration Date Visits Requested Visits Authorized [id number] Pending Review Auto-Generat ed Referral 09/22/2021 10/22/2022 1 1 [facility] for referral (narrative)* Diagnostic Procedure Only (Routine) - Pending Review Specialty Diagnoses / Procedures Referred By Contac t Referred To Contact XR IMAGING Diagnoses Postlaminectomy syndrome, not elsewhere classified Asymptomatic postmenopausal status Procedures DXA-AXIAL SKELETON WITH VFA DXA BONE DENSITY STUDY AXIAL SKELETON Melissa Muhammad MD [address] [place] [address] Xr Imaging Referral ID Status Reason Start Date Expiration Date Visits Requested Visits Authorized [id number] Pending Review Auto-Generat ed Referral 03/02/2022 04/01/2023 1 1 [facility] for referral (narrative)* Diagnostic Procedure Only (Routine) - Pending Review Specialty Diagnoses / Procedures Referred By Contac t Referred To Contact XR IMAGING Diagnoses Right shoulder pain, unspecified chronicity Procedures XR SHOULDER GENERAL 3V OR MORE AP/TRUE AP/OTHER RIGHT RADEX SHOULDER COMPLETE MINIMUM 2 VIEWS Gisel Sylvester PA-C [address] [place] [address] [place] [address] Referral ID Status Reason Start Date Expiration Date Visits Requested Visits Authorized [id number] Pending Review Auto-Generat ed Referral 04/06/2023 05/05/2024 1 1 [facility] for referral (narrative)* Diagnostic Procedure Only (Routine) - Pending Review Specialty Diagnoses / Procedures Referred By Contac t Referred To Contact BR IMAGING Diagnoses Encounter for screening mammogram for breast cancer Procedures XAVIER SCREENING W ELI SCREENING DIGITAL BREAST TOMOSYNTHESIS BI SCREENING MAMMOGRAPHY BI 2-VIEW BREAST INC CAD Melissa Muhammad MD [address] [place] [address] Br Imaging [address] [place] [address] Referral ID Status Reason Start Date Expiration Date Visits Requested Visits Authorized [id number] Pending Review Auto-Generat ed Referral 08/09/2023 09/07/2024 1 1 [facility] for referral (narrative)* Diagnostic Procedure Only (Routine) - Closed Specialty Diagnoses / Procedures Referred By Ankit baeza Referred To Contact XR IMAGING Diagnoses Spondylosis with myelopathy, thoracic region Leg weakness, bilateral Fusion of spine of thoracic region Procedures XR THORACIC LIMITED 2V AP/LAT X-RAY DORSAL SPINE 2 VW Riddhi Sanchez PA-C [address] [place] [address] [place] [id number] Referral ID Status Reason Start Date Expiration Date V isits Requested Visits Authorized Closed Auto-Generate d Referral 12/15/2020 01/14/2022 1 1 [facility] for visit Narrative* Diagnostic Procedure Only (Routine) - Closed Specialty Diagnoses / Procedures Referred By Ankit baeza Referred To Contact XR IMAGING Diagnoses Spondylosis with myelopathy, thoracic region Leg weakness, bilateral Fusion of spine of thoracic region Procedures XR THORACIC LIMITED 2V AP/LAT X-RAY DORSAL SPINE 2 VW Riddhi Sanchez PA-C [address] [place] [address] [place] [id number] Referral ID Status Reason Start Date Expiration Date V isits Requested Visits Authorized Closed Auto-Generate d Referral 12/15/2020 01/14/2022 1 1 [facility] Summary Purpose Family History No Family History Records Found Relationship Condition Age at Onset Recorded Date/T frantz Unknown Family History?Cancer, Diabetes Unknown May 25, 2018 10:44am Family History?Cance r, Diabetes, - Unknown February 08, 2018 6:15pm Family History?Cance r, Diabetes, - Unknown May 25, 2018 10:44am Family History?Cance r, Heart Disease Unknown May 25, 2018 10:44am Relationship Condition Age at Onset Recorded Date/T frantz father Leukemia Unknown Diabetes mellitus Unknown Advance Directives No Advanced Directives Records FoundDocuments on File Type Date Recorded Patient 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 Counselor Expl 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 Advance Directive(s) 11/22/2020 9:09 PM Advance Directive(s) 11/16/2020 6:01 PM Advance Directive(s) 01/30/2018 5:56 PM Documents on File Type Date Recorded Patient Teen Counselor Expl anation Advance Directive(s) 11/22/2020 9:09 PM Advance Directive(s) 11/16/2020 6:01 PM Advance Directive(s) 01/30/2018 5:56 PM Advance Directive Response Recorded Date/ Time Living Will No May 02, 2023 5:39am Power of Chief Operating Officer No May 01 5:39am Advance Directive Response Recorded Date/ Time Living Will No June 02, 2023 4:41pm Power of Chief Operating Officer No June 01 4:41pm Advance Directive Response Recorded Date/ Time Living Will No June 02, 2023 8:53pm Power of Chief Operating Officer No June 01 8:53pm Hospital Course Note HNO ID: [id number]: Westley Taylorervice: General Internal MedicineAuthor Type: PhysicianType: Discharge SummariesFiled: 02/07/2018 9:34 AMNote Text:DISCHARGE SUMMARYPATIENT NAME: Sonia Karimi ADMISSION DATE: 01/30/2018MRN: [id number] DISCHARGE DATE: 02/07/2018Attending Physician: Attending provider: Francisco Dow MD ([phone])Reason for Hospitalization:Active Problems: Cervical myopathy Cervical spondylosis with myelopathyResolved Problems: * No resolved hospital problems. *Operations During Hospitalization: To list.Procedures During Hospitalization: To list.Labs and Procedures Pending at Discharge: No pending results. Unlessotherwise specified.Consulting Teams During Hospitalization:NeurosurgeryPTPatient Condition @ Discharge: StableDischarge Disposition: Group Home FacilityDischarge Physical Exam:VITAL SIGNS: BP 108/50 Pulse 100 Temp 36.9 ?C (98.5 ?F) (Oral) Resp 16 Ht 167.6 cm (5' 6) Wt 125.9 kg (277 lb 9 oz) SpO2 97% BMI 44.80 kg/m?GENERAL: Alert, no acut (more content not included)... Note HNO ID: [id number]: Samir Jorgensen: NeurosurgeryAuthor Type: PhysicianType: Brief Op NoteFiled: 02/02/2018 2:48 PMNote Text:BRIEF OPERATIVE / PROCEDURE NOTELOG ID: [id number]/PROCEDURE DATE: 02/02/2018INCISION/PROCEDURE START TIME: 1:42 PMINCISION CLOSE/PROCEDURE END TIME: 2:47 PMSURGEON(S)/PROCEDURALIST(S) AND BINDERY OPERATOR(S):Surgeon(s) and Role: * Latrice Maxwell * Merrick (Res) Ashley Church Additional StaffSURGERY/PROCEDURE(S): ACDF C3-4ANESTHESIA: GeneralFINDINGS: InstabilityESTIMATED BLOOD LOSS: 20ccSPECIMENS: NoneCOMPLICATIONS: NonePRE-OP/PRE-PROCEDURE DIAGNOSIS: MyelopathyPOST-OP/POST-PROCEDURE DIAGNOSIS: Spinal cord compressionSIGNATURE: Latrice Hayes MD PATIENT NAME: Sonia Lozoya DerueDATE: February 02, 2018 : 2:47 PM PAGER/CONTACT #: [phone] Procedure Findings Note HNO ID: [id number]: Samir Jorgensen: NeurosurgeryAuthor Type: PhysicianType: Brief Op NoteFiled: 02/02/2018 2:48 PMNote Text:BRIEF OPERATIVE / PROCEDURE NOTELOG ID: [id number]/PROCEDURE DATE: 02/02/2018INCISION/PROCEDURE START TIME: 1:42 PMINCISION CLOSE/PROCEDURE END TIME: 2:47 PMSURGEON(S)/PROCEDURALIST(S) AND BINDERY OPERATOR(S):Surgeon(s) and Role: * Latrice Maxwell * Merrick (Res) Ashley Church Additional StaffSURGERY/PROCEDURE(S): ACDF C3-4ANESTHESIA: GeneralFINDINGS: InstabilityESTIMATED BLOOD LOSS: 20ccSPECIMENS: NoneCOMPLICATIONS: NonePRE-OP/PRE-PROCEDURE DIAGNOSIS: MyelopathyPOST-OP/POST-PROCEDURE DIAGNOSIS: Spinal cord compressionSIGNATURE: Latrice Hayes MD PATIENT NAME: Sonia HemphillueDATE: February 02, 2018 : 2:47 PM PAGER/CONTACT #: [id number] Chief Complaint Chief Complaint Description Start Date bilateral knee pain Preliminary chief co mplaint data, not yet signed by the author as of Instructions Instruction Description Start Date Patient advised to follow-up with Primary Care Physician for BMI management. Assessments There may be information available, but it has not been provided by the sender. Review of System There may be information available, but it has not been provided by the sender. History of Present Illness There may be information available, but it has not been provided by the sender. Reason for Referral Specialty Diagnoses / Procedures Referred By Ankit t Referred To Contact Physical Therapy Diagnoses Myelopathy (HCC) Procedures CONSULT TO PHYSICAL THERAPY Neo Gar DO [facility] [address] [place] [address] Referral ID Status Reason Start Date Expiration Date Visits Requested Visits Authorized [id number] Ref Not Required PCP Requested Referral 06/15/2021 06/15/2022 1 1 Specialty Diagnoses / Procedures Referred By Ankit t Referred To Contact [facility] Diagnoses Postlaminectomy syndrome, not elsewhere classified Myelopathy (HCC) Spondylosis with myelopathy, thoracic region S/P laminectomy Fusion of spine of thoracic region Leg weakness, bilateral Procedures CONSULT TO PT/OT WHEELCHAIR EVALUATION OFFICE/OUTPATIENT [facility] 60-74 MINUTES Josephine Hawthorne, ROSALEE.PERSONNEL DIRECTOR [address] [place] [address] [facility] [address] [place] [address] Referral ID Status Reason Start Date Expiration Date Visits Requested Visits Authorized [id number] Authorized Auto-Generat ed Referral 07/20/2021 07/20/2022 1 1 Specialty Diagnoses / Procedures Referred By Contac t Referred To Contact Diagnoses Class 3 severe obesity due to excess calories without serious comorbidity with body mass index (BMI) of 45.0 to 49.9 in adult (HCC) Procedures ENDOCRINE MEDICAL WEIGHT MANAGEMENT Riddhi Sanchez PA-C [address] [facility] [place] [address] Referral ID Status Reason Start Date Expiration Date Visits Requested Visits Authorized [id number] Authorized PCP Requested Referral 05/30/2023 08/28/2023 3 3 Specialty Diagnoses / Procedures Referred By Contac t Referred To Contact [facility] Diagnoses Leg weakness, bilateral Fusion of spine of thoracic region Spinal stenosis of lumbar region with neurogenic claudication Spondylosis with myelopathy, thoracic region Lumbar radiculopathy Acute right-sided back pain with sciatica Procedures CONSULT TO [facility] OFFICE/OUTPATIENT [facility] 60 MINUTES Riddhi Sanchez PA-C [address] [facility] [place] [address] Referral ID Status Reason Start Date Expiration Date Visits Requested Visits Authorized [id number] Authorized PCP Requested Referral 05/30/2023 05/29/2024 1 1 Specialty Diagnoses / Procedures Referred By Contac t Referred To Contact [facility] Diagnoses Leg weakness, bilateral Fusion of spine of thoracic region Spinal stenosis of lumbar region with neurogenic claudication Spondylosis with myelopathy, thoracic region Lumbar radiculopathy Severe low back pain Acute right-sided back pain with sciatica Procedures CONSULT TO PHYSICAL THERAPY PHYSICAL THERAPY EVALUATION [facility] 45 MINS Riddhi Sanchez PA-C [address] [facility] [place] [address] [facility] [address] [place] [address] Referral ID Status Reason Start Date Expiration Date Visits Requested Visits Authorized [id number] Authorized PCP Requested Referral Auto-Generate d Referral 05/30/2023 05/29/2024 99 99 Specialty Diagnoses / Procedures Referred By Contac t Referred To Contact MR IMAGING Diagnoses Leg weakness, bilateral Fusion of spine of thoracic region Spinal stenosis of lumbar region with neurogenic claudication Spondylosis with myelopathy, thoracic region Procedures MRI LUMBAR SPINE WO IVCON MRI SPINAL CANAL LUMBAR W/O CONTRAST MATERIAL Riddhi Sanchez PA-C [address] [place] [address] [place] [address] Referral ID Status Reason Start Date Expiration Date Visits Requested Visits Authorized [id number] Pending Review Auto-Generat ed Referral 05/30/2023 06/28/2024 1 1 Specialty Diagnoses / Procedures Referred By Contac t Referred To Contact MR IMAGING Diagnoses Leg weakness, bilateral Fusion of spine of thoracic region Spinal stenosis of lumbar region with neurogenic claudication Spondylosis with myelopathy, thoracic region Procedures MRI THORACIC SPINE WO IVCON MRI SPINAL CANAL THORACIC W/O CONTRAST MATRL Riddhi Sanchez PA-C [address] [place] [address] [place] [address] Referral ID Status Reason Start Date Expiration Date Visits Requested Visits Authorized [id number] Pending Review Auto-Generat ed Referral 05/30/2023 06/28/2024 1 1 Specialty Diagnoses / Procedures Referred By Contac t Referred To Contact XR IMAGING Diagnoses Leg weakness, bilateral Fusion of spine of thoracic region Spinal stenosis of lumbar region with neurogenic claudication Spondylosis with myelopathy, thoracic region Procedures XR SCOLIOSIS PA STAND/LAT 2V RADEX ENTIR THRC LMBR CRV SAC SPI W/SKULL 2/3 VW Riddhi Sanchez PA-C [address] [place] [address] Xr Imaging [facility] Referral ID Status Reason Start Date Expiration Date Visits Requested Visits Authorized [id number] Pending Review Auto-Generat ed Referral 05/30/2023 06/28/2024 1 1 Chief Complaint and Reason for Visit Chief Complaint back Chief Complaint back INTRACTABLE BACK PAIN Reason for Visit Adult failure to thr mariana At high risk for falls Intractable back pain Chronic back pain Chief Complaint back INTRACTABLE BACK PAIN INTRACTABLE BACK PAIN INTRACTABLE BACK PAIN INTRACTABLE BACK PAIN INTRACTABLE BACK PAIN INTRACTABLE BACK PAIN INTRACTABLE BACK PAIN INTRACTABLE BACK PAIN INTRACTABLE BACK PAIN INTRACTABLE BACK PAIN INTRACTABLE BACK PAIN INTRACTABLE BACK PAIN Reason for Visit Adult failure to thr mariana At high risk for falls Intractable back pain Lumbar radiculopathy, acute Status post lumbar discectomy Stenosis, spinal, lumbar Chronic back pain Additional Source Comments INFORMATION SOURCE (unrecogn ized section and content) DATE CREATED AUTHOR 02/15/2018 [facility] DATE CREATED AUTHOR AUTHOR'S ORGANIZ ATION 09/22/2021 [facility] DATE CREATED AUTHOR AUTHOR'S ORGANIZ ATION 04/21/2024 [facility] DATE CREATED AUTHOR AUTHOR'S ORGANIZ ATION 12/13/2024 [facility] Reason for Visit (unrecogniz ed section and content) Reason For Visit Description New - 1st visit with practice Preliminary reason f or visit data, not yet signed by the author as of bilateral knee pain Reason Comments Refill Request Reason Onset Date Comments Refill Request Refill Request 05/06/2021 Reason Comments Forms NU MOTION - F2F/JAE T NOTE REQUEST Reason Comments Physical therapy ended Reason Comments Orders pt need updated orde r for homecare Reason Comments MyChart Reason Comments Establish Care Reason Comments Patient Update Reason Comments Forms [facility] P ROGRESS NOTES Reason Comments Forms Home Health Certific ation and Plan Of Care #[id number] Reason Comments Forms Reason Comments Forms Physician Order Reason Comments Orders Patient Update Reason Comments Patient Update Patient Question Orders Reason Comments Medication Problem Reason Comments Patient Update Orders Reason Comments Patient Update Patient Question Reason Comments Opened In Error Reason Comments Forms Order no. [id number] Reason Comments Forms Order no. [id number] Reason Comments Other Home health care cer t and plan of care Reason Comments Other Home health cert and plan of care Reason Comments Medication problem/clarification Reason Comments F/U 6 months New to [employer] mobility device evaluation Primary reason for appointment Reason Comments Forms For PMD Reason Comments Other Home healthcare cert ification Reason Onset Date Comments Home Care 03/04/2021 [facility] CERTIFICATION 02/03/2021-04/03/2021 Reason Comments [employer]/ power wheel chair Reason Comments Other [address] Reason Comments Other Home health care ord ers Reason Comments F/U 6 Month Reason Onset Date Comments Refill Request 11/25/2022 Reason Onset Date Comments Refill Request 01/10/2023 Reason Onset Date Comments Refill Request 04/20/2023 Reason Comments right arm wounds X 5 days-scratched b y cats fighting Reason Comments Results Reason Comments Follow Up Reason Onset Date Comments Population Health Navigation Outreach 01/16/2024 [facility] Surge list 2023 Reason Onset Date Comments Population Health Navigation Outreach 03/14/2024 [facility] Reason Comments Orders Reason Comments Hospital F/U Discharged for rehab Reason Comments Home Care Management Reason Comments Release Of Medical Records Reason Comments D/C home health aide order Reason Comments Home Health Physical Therapy Update Reason Onset Date Comments Home Care Management 06/19/2024 Reason Comments Follow Up Reason Comments Hospital bed problem Reason Onset Date Comments Opened In Error 06/27/2024 Reason Comments Cough Cough, sinus, conges tion and BUCK x 6 days Reason Onset Date Comments Population Health Navigation Outreach 08/14/2024 [facility] Reason Comments F/U 3 Month Reason Comments Faxed to [facility] Reason Onset Date Comments Refill Request 09/20/2024 Reason Onset Date Comments Population Health Navigation Outreach 09/26/2024 [place] Source Comments (unrecognize d section and content) In the event this informatio n is protected by the Federal Confidentiality of Alcohol and Drug Abuse Patient Records regulations: The Federal rules restrict any use of the information to criminally investigate or prosecute any alcohol or drug abuse patient.[facility] the event this information is protected by the Federal Confidentiality of Alcohol and Drug Abuse Patient Records regulations: The Federal rules restrict any use of the information to criminally investigate or prosecute any alcohol or drug abuse patient.[facility] the event this information is protected by the Federal Confidentiality of Alcohol and Drug Abuse Patient Records regulations: The Federal rules restrict any use of the information to criminally investigate or prosecute any alcohol or drug abuse patient.[facility] the event this information is protected by the Federal Confidentiality of Alcohol and Drug Abuse Patient Records regulations: The Federal rules restrict any use of the information to criminally investigate or prosecute any alcohol or drug abuse patient.[facility] the event this information is protected by the Federal Confidentiality of Alcohol and Drug Abuse Patient Records regulations: The Federal rules restrict any use of the information to criminally investigate or prosecute any alcohol or drug abuse patient.[facility] the event this information is protected by the Federal Confidentiality of Alcohol and Drug Abuse Patient Records regulations: The Federal rules restrict any use of the information to criminally investigate or prosecute any alcohol or drug abuse patient.[facility] Hospital[facility] the event this information is protected by the Federal Confidentiality of Alcohol and Drug Abuse Patient Records regulations: The Federal rules restrict any use of the information to criminally investigate or prosecute any alcohol or drug abuse patient.[facility] the event this information is protected by the Federal Confidentiality of Alcohol and Drug Abuse Patient Records regulations: The Federal rules restrict any use of the information to criminally investigate or prosecute any alcohol or drug abuse patient.[facility] Hospital[facility] the event this information is protected by the Federal Confidentiality of Alcohol and Drug Abuse Patient Records regulations: The Federal rules restrict any use of the information to criminally investigate or prosecute any alcohol or drug abuse patient.[facility] HospitalIn the event this information is protected by the Federal Confidentiality of Alcohol and Drug Abuse Patient Records regulations: The Federal rules restrict any use of the information to criminally investigate or prosecute any alcohol or drug abuse patient.[facility] HospitalIn the event this information is protected by the Federal Confidentiality of Alcohol and Drug Abuse Patient Records regulations: The Federal rules restrict any use of the information to criminally investigate or prosecute any alcohol or drug abuse patient.[facility] HospitalIn the event this information is protected by the Federal Confidentiality of Alcohol and Drug Abuse Patient Records regulations: The Federal rules restrict any use of the information to criminally investigate or prosecute any alcohol or drug abuse patient.[facility] HospitalIn the event this information is protected by the Federal Confidentiality of Alcohol and Drug Abuse Patient Records regulations: The Federal rules restrict any use of the information to criminally investigate or prosecute any alcohol or drug abuse patient.[facility] HospitalIn the event this information is protected by the Federal Confidentiality of Alcohol and Drug Abuse Patient Records regulations: The Federal rules restrict any use of the information to criminally investigate or prosecute any alcohol or drug abuse patient.[facility] HospitalIn the event this information is protected by the Federal Confidentiality of Alcohol and Drug Abuse Patient Records regulations: The Federal rules restrict any use of the information to criminally investigate or prosecute any alcohol or drug abuse patient.[facility] HospitalIn the event this information is protected by the Federal Confidentiality of Alcohol and Drug Abuse Patient Records regulations: The Federal rules restrict any use of the information to criminally investigate or prosecute any alcohol or drug abuse patient.[facility] HospitalIn the event this information is protected by the Federal Confidentiality of Alcohol and Drug Abuse Patient Records regulations: The Federal rules restrict any use of the information to criminally investigate or prosecute any alcohol or drug abuse patient.[facility] HospitalIn the event this information is protected by the Federal Confidentiality of Alcohol and Drug Abuse Patient Records regulations: The Federal rules restrict any use of the information to criminally investigate or prosecute any alcohol or drug abuse patient.[facility] HospitalIn the event this information is protected by the Federal Confidentiality of Alcohol and Drug Abuse Patient Records regulations: The Federal rules restrict any use of the information to criminally investigate or prosecute any alcohol or drug abuse patient.[facility] HospitalIn the event this information is protected by the Federal Confidentiality of Alcohol and Drug Abuse Patient Records regulations: The Federal rules restrict any use of the information to criminally investigate or prosecute any alcohol or drug abuse patient.[facility] HospitalIn the event this information is protected by the Federal Confidentiality of Alcohol and Drug Abuse Patient Records regulations: The Federal rules restrict any use of the information to criminally investigate or prosecute any alcohol or drug abuse patient.[facility] HospitalIn the event this information is protected by the Federal Confidentiality of Alcohol and Drug Abuse Patient Records regulations: The Federal rules restrict any use of the information to criminally investigate or prosecute any alcohol or drug abuse patient.[facility] HospitalIn the event this information is protected by the Federal Confidentiality of Alcohol and Drug Abuse Patient Records regulations: The Federal rules restrict any use of the information to criminally investigate or prosecute any alcohol or drug abuse patient.[facility] HospitalIn the event this information is protected by the Federal Confidentiality of Alcohol and Drug Abuse Patient Records regulations: The Federal rules restrict any use of the information to criminally investigate or prosecute any alcohol or drug abuse patient.[facility] HospitalIn the event this information is protected by the Federal Confidentiality of Alcohol and Drug Abuse Patient Records regulations: The Federal rules restrict any use of the information to criminally investigate or prosecute any alcohol or drug abuse patient.[facility] HospitalIn the event this information is protected by the Federal Confidentiality of Alcohol and Drug Abuse Patient Records regulations: The Federal rules restrict any use of the information to criminally investigate or prosecute any alcohol or drug abuse patient.[facility] HospitalIn the event this information is protected by the Federal Confidentiality of Alcohol and Drug Abuse Patient Records regulations: The Federal rules restrict any use of the information to criminally investigate or prosecute any alcohol or drug abuse patient.[facility] HospitalIn the event this information is protected by the Federal Confidentiality of Alcohol and Drug Abuse Patient Records regulations: The Federal rules restrict any use of the information to criminally investigate or prosecute any alcohol or drug abuse patient.[facility] HospitalIn the event this information is protected by the Federal Confidentiality of Alcohol and Drug Abuse Patient Records regulations: The Federal rules restrict any use of the information to criminally investigate or prosecute any alcohol or drug abuse patient.[facility] HospitalIn the event this information is protected by the Federal Confidentiality of Alcohol and Drug Abuse Patient Records regulations: The Federal rules restrict any use of the information to criminally investigate or prosecute any alcohol or drug abuse patient.[facility] HospitalIn the event this information is protected by the Federal Confidentiality of Alcohol and Drug Abuse Patient Records regulations: The Federal rules restrict any use of the information to criminally investigate or prosecute any alcohol or drug abuse patient.[facility] HospitalIn the event this information is protected by the Federal Confidentiality of Alcohol and Drug Abuse Patient Records regulations: The Federal rules restrict any use of the information to criminally investigate or prosecute any alcohol or drug abuse patient.[facility] HospitalIn the event this information is protected by the Federal Confidentiality of Alcohol and Drug Abuse Patient Records regulations: The Federal rules restrict any use of the information to criminally investigate or prosecute any alcohol or drug abuse patient.[facility] HospitalIn the event this information is protected by the Federal Confidentiality of Alcohol and Drug Abuse Patient Records regulations: The Federal rules restrict any use of the information to criminally investigate or prosecute any alcohol or drug abuse patient.[facility] HospitalIn the event this information is protected by the Federal Confidentiality of Alcohol and Drug Abuse Patient Records regulations: The Federal rules restrict any use of the information to criminally investigate or prosecute any alcohol or drug abuse patient.[facility] HospitalIn the event this information is protected by the Federal Confidentiality of Alcohol and Drug Abuse Patient Records regulations: The Federal rules restrict any use of the information to criminally investigate or prosecute any alcohol or drug abuse patient.[facility] HospitalIn the event this information is protected by the Federal Confidentiality of Alcohol and Drug Abuse Patient Records regulations: The Federal rules restrict any use of the information to criminally investigate or prosecute any alcohol or drug abuse patient.[facility] HospitalIn the event this information is protected by the Federal Confidentiality of Alcohol and Drug Abuse Patient Records regulations: The Federal rules restrict any use of the information to criminally investigate or prosecute any alcohol or drug abuse patient.[facility] HospitalIn the event this information is protected by the Federal Confidentiality of Alcohol and Drug Abuse Patient Records regulations: The Federal rules restrict any use of the information to criminally investigate or prosecute any alcohol or drug abuse patient.[facility] HospitalIn the event this information is protected by the Federal Confidentiality of Alcohol and Drug Abuse Patient Records regulations: The Federal rules restrict any use of the information to criminally investigate or prosecute any alcohol or drug abuse patient.[facility] HospitalIn the event this information is protected by the Federal Confidentiality of Alcohol and Drug Abuse Patient Records regulations: The Federal rules restrict any use of the information to criminally investigate or prosecute any alcohol or drug abuse patient.[facility] HospitalIn the event this information is protected by the Federal Confidentiality of Alcohol and Drug Abuse Patient Records regulations: The Federal rules restrict any use of the information to criminally investigate or prosecute any alcohol or drug abuse patient.[facility] HospitalIn the event this information is protected by the Federal Confidentiality of Alcohol and Drug Abuse Patient Records regulations: The Federal rules restrict any use of the information to criminally investigate or prosecute any alcohol or drug abuse patient.[facility] HospitalIn the event this information is protected by the Federal Confidentiality of Alcohol and Drug Abuse Patient Records regulations: The Federal rules restrict any use of the information to criminally investigate or prosecute any alcohol or drug abuse patient.[facility] HospitalIn the event this information is protected by the Federal Confidentiality of Alcohol and Drug Abuse Patient Records regulations: The Federal rules restrict any use of the information to criminally investigate or prosecute any alcohol or drug abuse patient.[facility] HospitalIn the event this information is protected by the Federal Confidentiality of Alcohol and Drug Abuse Patient Records regulations: The Federal rules restrict any use of the information to criminally investigate or prosecute any alcohol or drug abuse patient.[facility] HospitalIn the event this information is protected by the Federal Confidentiality of Alcohol and Drug Abuse Patient Records regulations: The Federal rules restrict any use of the information to criminally investigate or prosecute any alcohol or drug abuse patient.[facility] HospitalIn the event this information is protected by the Federal Confidentiality of Alcohol and Drug Abuse Patient Records regulations: The Federal rules restrict any use of the information to criminally investigate or prosecute any alcohol or drug abuse patient.[facility] HospitalIn the event this information is protected by the Federal Confidentiality of Alcohol and Drug Abuse Patient Records regulations: The Federal rules restrict any use of the information to criminally investigate or prosecute any alcohol or drug abuse patient.[facility] HospitalIn the event this information is protected by the Federal Confidentiality of Alcohol and Drug Abuse Patient Records regulations: The Federal rules restrict any use of the information to criminally investigate or prosecute any alcohol or drug abuse patient.[facility] HospitalIn the event this information is protected by the Federal Confidentiality of Alcohol and Drug Abuse Patient Records regulations: The Federal rules restrict any use of the information to criminally investigate or prosecute any alcohol or drug abuse patient.[facility] HospitalIn the event this information is protected by the Federal Confidentiality of Alcohol and Drug Abuse Patient Records regulations: The Federal rules restrict any use of the information to criminally investigate or prosecute any alcohol or drug abuse patient.[facility] HospitalIn the event this information is protected by the Federal Confidentiality of Alcohol and Drug Abuse Patient Records regulations: The Federal rules restrict any use of the information to criminally investigate or prosecute any alcohol or drug abuse patient.[facility] HospitalIn the event this information is protected by the Federal Confidentiality of Alcohol and Drug Abuse Patient Records regulations: The Federal rules restrict any use of the information to criminally investigate or prosecute any alcohol or drug abuse patient.[facility] HospitalIn the event this information is protected by the Federal Confidentiality of Alcohol and Drug Abuse Patient Records regulations: The Federal rules restrict any use of the information to criminally investigate or prosecute any alcohol or drug abuse patient.[facility] HospitalIn the event this information is protected by the Federal Confidentiality of Alcohol and Drug Abuse Patient Records regulations: The Federal rules restrict any use of the information to criminally investigate or prosecute any alcohol or drug abuse patient.[facility] HospitalIn the event this information is protected by the Federal Confidentiality of Alcohol and Drug Abuse Patient Records regulations: The Federal rules restrict any use of the information to criminally investigate or prosecute any alcohol or drug abuse patient.[facility] HospitalIn the event this information is protected by the Federal Confidentiality of Alcohol and Drug Abuse Patient Records regulations: The Federal rules restrict any use of the information to criminally investigate or prosecute any alcohol or drug abuse patient.[facility] HospitalIn the event this information is protected by the Federal Confidentiality of Alcohol and Drug Abuse Patient Records regulations: The Federal rules restrict any use of the information to criminally investigate or prosecute any alcohol or drug abuse patient.[facility] HospitalIn the event this information is protected by the Federal Confidentiality of Alcohol and Drug Abuse Patient Records regulations: The Federal rules restrict any use of the information to criminally investigate or prosecute any alcohol or drug abuse patient.[facility] HospitalIn the event this information is protected by the Federal Confidentiality of Alcohol and Drug Abuse Patient Records regulations: The Federal rules restrict any use of the information to criminally investigate or prosecute any alcohol or drug abuse patient.[facility] HospitalIn the event this information is protected by the Federal Confidentiality of Alcohol and Drug Abuse Patient Records regulations: The Federal rules restrict any use of the information to criminally investigate or prosecute any alcohol or drug abuse patient.[facility] HospitalIn the event this information is protected by the Federal Confidentiality of Alcohol and Drug Abuse Patient Records regulations: The Federal rules restrict any use of the information to criminally investigate or prosecute any alcohol or drug abuse patient.[facility] HospitalIn the event this information is protected by the Federal Confidentiality of Alcohol and Drug Abuse Patient Records regulations: The Federal rules restrict any use of the information to criminally investigate or prosecute any alcohol or drug abuse patient.[facility] HospitalIn the event this information is protected by the Federal Confidentiality of Alcohol and Drug Abuse Patient Records regulations: The Federal rules restrict any use of the information to criminally investigate or prosecute any alcohol or drug abuse patient.[facility] HospitalIn the event this information is protected by the Federal Confidentiality of Alcohol and Drug Abuse Patient Records regulations: The Federal rules restrict any use of the information to criminally investigate or prosecute any alcohol or drug abuse patient.[facility] HospitalIn the event this information is protected by the Federal Confidentiality of Alcohol and Drug Abuse Patient Records regulations: The Federal rules restrict any use of the information to criminally investigate or prosecute any alcohol or drug abuse patient.[facility] HospitalIn the event this information is protected by the Federal Confidentiality of Alcohol and Drug Abuse Patient Records regulations: The Federal rules restrict any use of the information to criminally investigate or prosecute any alcohol or drug abuse patient.[facility] HospitalIn the event this information is protected by the Federal Confidentiality of Alcohol and Drug Abuse Patient Records regulations: The Federal rules restrict any use of the information to criminally investigate or prosecute any alcohol or drug abuse patient.[facility] HospitalIn the event this information is protected by the Federal Confidentiality of Alcohol and Drug Abuse Patient Records regulations: The Federal rules restrict any use of the information to criminally investigate or prosecute any alcohol or drug abuse patient.[facility] HospitalIn the event this information is protected by the Federal Confidentiality of Alcohol and Drug Abuse Patient Records regulations: The Federal rules restrict any use of the information to criminally investigate or prosecute any alcohol or drug abuse patient.[facility] HospitalIn the event this information is protected by the Federal Confidentiality of Alcohol and Drug Abuse Patient Records regulations: The Federal rules restrict any use of the information to criminally investigate or prosecute any alcohol or drug abuse patient.[facility] HospitalIn the event this information is protected by the Federal Confidentiality of Alcohol and Drug Abuse Patient Records regulations: The Federal rules restrict any use of the information to criminally investigate or prosecute any alcohol or drug abuse patient.[facility] HospitalIn the event this information is protected by the Federal Confidentiality of Alcohol and Drug Abuse Patient Records regulations: The Federal rules restrict any use of the information to criminally investigate or prosecute any alcohol or drug abuse patient.[facility] HospitalIn the event this information is protected by the Federal Confidentiality of Alcohol and Drug Abuse Patient Records regulations: The Federal rules restrict any use of the information to criminally investigate or prosecute any alcohol or drug abuse patient.[facility] HospitalIn the event this information is protected by the Federal Confidentiality of Alcohol and Drug Abuse Patient Records regulations: The Federal rules restrict any use of the information to criminally investigate or prosecute any alcohol or drug abuse patient.[facility] HospitalIn the event this information is protected by the Federal Confidentiality of Alcohol and Drug Abuse Patient Records regulations: The Federal rules restrict any use of the information to criminally investigate or prosecute any alcohol or drug abuse patient.[facility] HospitalIn the event this information is protected by the Federal Confidentiality of Alcohol and Drug Abuse Patient Records regulations: The Federal rules restrict any use of the information to criminally investigate or prosecute any alcohol or drug abuse patient.[facility] HospitalIn the event this information is protected by the Federal Confidentiality of Alcohol and Drug Abuse Patient Records regulations: The Federal rules restrict any use of the information to criminally investigate or prosecute any alcohol or drug abuse patient.[facility] HospitalIn the event this information is protected by the Federal Confidentiality of Alcohol and Drug Abuse Patient Records regulations: The Federal rules restrict any use of the information to criminally investigate or prosecute any alcohol or drug abuse patient.[facility] HospitalIn the event this information is protected by the Federal Confidentiality of Alcohol and Drug Abuse Patient Records regulations: The Federal rules restrict any use of the information to criminally investigate or prosecute any alcohol or drug abuse patient.[facility] HospitalIn the event this information is protected by the Federal Confidentiality of Alcohol and Drug Abuse Patient Records regulations: The Federal rules restrict any use of the information to criminally investigate or prosecute any alcohol or drug abuse patient.[facility] HospitalIn the event this information is protected by the Federal Confidentiality of Alcohol and Drug Abuse Patient Records regulations: The Federal rules restrict any use of the information to criminally investigate or prosecute any alcohol or drug abuse patient.[facility] HospitalIn the event this information is protected by the Federal Confidentiality of Alcohol and Drug Abuse Patient Records regulations: The Federal rules restrict any use of the information to criminally investigate or prosecute any alcohol or drug abuse patient.[facility] HospitalIn the event this information is protected by the Federal Confidentiality of Alcohol and Drug Abuse Patient Records regulations: The Federal rules restrict any use of the information to criminally investigate or prosecute any alcohol or drug abuse patient.[facility] HospitalIn the event this information is protected by the Federal Confidentiality of Alcohol and Drug Abuse Patient Records regulations: The Federal rules restrict any use of the information to criminally investigate or prosecute any alcohol or drug abuse patient.[facility] HospitalIn the event this information is protected by the Federal Confidentiality of Alcohol and Drug Abuse Patient Records regulations: The Federal rules restrict any use of the information to criminally investigate or prosecute any alcohol or drug abuse patient.[facility] HospitalIn the event this information is protected by the Federal Confidentiality of Alcohol and Drug Abuse Patient Records regulations: The Federal rules restrict any use of the information to criminally investigate or prosecute any alcohol or drug abuse patient.[facility] HospitalIn the event this information is protected by the Federal Confidentiality of Alcohol and Drug Abuse Patient Records regulations: The Federal rules restrict any use of the information to criminally investigate or prosecute any alcohol or drug abuse patient.[facility] HospitalIn the event this information is protected by the Federal Confidentiality of Alcohol and Drug Abuse Patient Records regulations: The Federal rules restrict any use of the information to criminally investigate or prosecute any alcohol or drug abuse patient.[facility] HospitalIn the event this information is protected by the Federal Confidentiality of Alcohol and Drug Abuse Patient Records regulations: The Federal rules restrict any use of the information to criminally investigate or prosecute any alcohol or drug abuse patient.[facility] Care Teams (unrecognized sec tion and content) Histotechnologist Relationship Specialty Start Date End Date Neo Gar DO PCP - General Internal Medicine 12/16/10 04/19/21 Histotechnologist Relationship Specialty Start Date End Date Neo Gar DO PCP - General Internal Medicine 12/16/10 04/19/21 Histotechnologist Relationship Specialty Start Date End Date Melissa Muhammad MD [address] [place], [place] [id number] PCP - General Internal Medicine 07/20/21 Histotechnologist Relationship Specialty Start Date End Date Neo Gar DO PCP - General Internal Medicine 12/16/10 04/19/21 Melissa Muhammad MD [address] [place] [address] PCP - General Internal Medicine 07/20/21 07/26/21 [facility] [address] [place] [address] PCP - General Internal Medicine 07/27/21 Histotechnologist Relationship Specialty Start Date End Date Neo Gar DO [address] [place] [address] PCP - General Internal Medicine 07/27/21 Histotechnologist Relationship Specialty Start Date End Date Neo Gar DO [address] [place] [address] PCP - General Internal Medicine 07/27/21 Histotechnologist Relationship Specialty Start Date End Date Neo Gar DO [address] [place] [address] PCP - General Internal Medicine 07/27/21 Histotechnologist Relationship Specialty Start Date End Date [facility] [address] [place] [address] PCP - General Internal Medicine 07/27/21 Histotechnologist Relationship Specialty Start Date End Date [facility] Gar [facility] [address] [place] [address] PCP - General Internal Medicine 07/27/21 Histotechnologist Relationship Specialty Start Date End Date Neo Gar [facility] [address] [place] [address] PCP - General Internal Medicine 07/27/21 Histotechnologist Relationship Specialty Start Date End Date [facility] Gar [facility] [address] [place] [address] PCP - General Internal Medicine 07/27/21 Histotechnologist Relationship Specialty Start Date End Date Neo Gar DO [facility] [address] [place] [address] PCP - General Internal Medicine 07/27/21 Histotechnologist Relationship Specialty Start Date End Date Neo Gar DO [address] [place] [address] PCP - General Internal Medicine 07/27/21 Histotechnologist Relationship Specialty Start Date End Date Neo Gar DO PCP - General Internal Medicine 12/16/10 04/19/21 Melissa Muhammad MD [address] [place], [place] [address] PCP - General Internal Medicine 07/20/21 07/26/21 Neo Gar, DO [address] [place] [address] PCP - General Internal Medicine 07/27/21 Histotechnologist Relationship Specialty Start Date End Date Melissa Muhammad MD [address] [place] [address] PCP - General Internal Medicine 07/20/21 07/26/21 Neo Gar [address] [place] [address] PCP - General Internal Medicine 07/27/21 Histotechnologist Relationship Specialty Start Date End Date Melissa Muhammad MD [address] [place] [address] PCP - General Internal Medicine 07/20/21 07/26/21 Neo Gar [address] [place] [address] PCP - General Internal Medicine 07/27/21 Histotechnologist Relationship Specialty Start Date End Date Neo Gar DO PCP - General Internal Medicine 12/16/10 04/19/21 Melissa Muhammad MD [address] [place] [address] PCP - General Internal Medicine 07/20/21 07/26/21 Neo Gar DO [address] [place] [address] PCP - General Internal Medicine 07/27/21 Histotechnologist Relationship Specialty Start Date End Date Melissa Muhammad MD [address] [place] [address] PCP - General Internal Medicine 07/20/21 07/26/21 Neo Gar DO [address] [place] [address] PCP - General Internal Medicine 07/27/21 Histotechnologist Relationship Specialty Start Date End Date Neo Gar DO [address] [place] [address] PCP - General Internal Medicine 07/27/21 Histotechnologist Relationship Specialty Start Date End Date Neo Gar DO [address] [place] [address] PCP - General Internal Medicine 07/27/21 Histotechnologist Relationship Specialty Start Date End Date Neo Gar DO PCP - General Internal Medicine 12/16/10 04/19/21 Melissa Muhammad MD [address] [place] [address] PCP - General Internal Medicine 07/20/21 07/26/21 Neo Gar DO [address] [place] [address] PCP - General Internal Medicine 07/27/21 12/16/21 Histotechnologist Relationship Specialty Start Date End Date Melissa Muhammad MD [address] [place] [address] PCP - General Internal Medicine 06/01/22 Histotechnologist Relationship Specialty Start Date End Date Melissa Muhammad MD [address] [place] [address] PCP - General Internal Medicine 06/01/22 Histotechnologist Relationship Specialty Start Date End Date Melissa Muhammad MD [address] [facility] [place] [address] PCP - General Internal Medicine 06/01/22 Histotechnologist Relationship Specialty Start Date End Date Melissa Muhammad MD [address] [place] [address] PCP - General Internal Medicine 06/01/22 Histotechnologist Relationship Specialty Start Date End Date Melissa Muhammad MD [address] [place] [address] PCP - General Internal Medicine 06/01/22 Histotechnologist Relationship Specialty Start Date End Date Melissa Muhammad MD [address] [facility] [place] [address] PCP - General Internal Medicine 06/01/22 Histotechnologist Relationship Specialty Start Date End Date Melissa Muhammad MD [address] [facility] [place] [address] PCP - General Internal Medicine 06/01/22 Team Status: Active Member Role Status Dates NEO GAR Family Provider Active Dr. Melissa Muhammad MD Primary Care Provider Active Team Status: Inactive Member Role Status Dates Dr. Melissa Muhammad MD Primary Care Provider Active Dr. Indra Thompson MD Emergency Provider Active Histotechnologist Relationship Specialty Start Date End Date Melissa Muhammad MD [address] [place] [address] PCP - General Internal Medicine 06/01/22 Histotechnologist Relationship Specialty Start Date End Date Melissa Muhammad MD [address] [place] [address] PCP - General Internal Medicine 06/01/22 Histotechnologist Relationship Specialty Start Date End Date Melissa Muhammad MD [address] [place] [address] PCP - General Internal Medicine 06/01/22 Histotechnologist Relationship Specialty Start Date End Date Melissa Muhammad MD [address] [place], [place] [address] PCP - General Internal Medicine 06/01/22 Team Status: Inactive Member Role Status Dates Dr. Melissa Muhammad MD Primary Care Provider Active Dr. Indra Thompson MD Attending Provider, Emergency Provider Active Team Status: Active Member Role Status Dates Dr. Melissa Muhammad MD Primary Care Provider Active Esteban Martinez MD Emergency Provider Active Dr. Monika Mendoza MD Admit Provider, Attending Provider, Referring Provider Active Team Status: Active Member Role Status Dates Dr. Melissa Muhammad MD Primary Care Provider Active Esteban Martinez MD Emergency Provider Active Dr. Monika Mendoza MD Admit Provider, Attending Provider, Other Provider Active Team Status: Active Member Role Status Dates Dr. Melissa Muhammad MD Primary Care Provider Active Esteban Martinez MD Emergency Provider Active Dr. Monika Mendoza MD Admit Provider, Attending Provider, Referring Provider, Other Provider Active Team Status: Active Member Role Status Dates Dr. Melissa Muhammad MD Primary Care Provider Active Esteban Martinez MD Emergency Provider Active Dr. Monika Mendoza MD Admit Provider, Referring Provider, Other Provider Active Dr. Lamont Arzate MD Attending Provider, Other Provi ken Active Team Status: Active Member Role Status Dates Dr. Melissa Muhammad MD Primary Care Provider Active Esteban Martinez MD Emergency Provider Active Dr. Monika Mendoza MD Admit Provider, Referring Provider, Other Provider Active Dr. Lamont Arzate MD Other Provider Active Dr. Kwasi Cheatham MD Attending Provider, Other Provid er Active Team Status: Active Member Role Status Dates Dr. Melissa Muhammad MD Primary Care Provider Active Esteban Martinez MD Emergency Provider Active Dr. Monika Mendoza MD Admit Provider, Referring Provider, Other Provider Active Dr. Lamont Arzate MD Attending Provider, Other Provi ken Active Dr. Kwasi Cheatham MD Other Provider Active Team Status: Inactive Member Role Status Dates Dr. Melissa Muhammad MD Primary Care Provider Active Esteban Martinez MD Emergency Provider Active Dr. Monika Mendoza MD Admit Provider, Referring Provider, Other Provider Active Dr. Lamont Arzate MD Attending Provider Active Dr. Kwasi Cheatham MD Other Provider Active Histotechnologist Relationship Specialty Start Date End Date Melissa Muhammad MD [address] [place], [place] [address] PCP - General Internal Medicine 06/01/22 Histotechnologist Relationship Specialty Start Date End Date Melissa Muhammad MD [address] [place], [place] [address] PCP - General Internal Medicine 07/20/21 07/26/21 Histotechnologist Relationship Specialty Start Date End Date Melissa Muhammad MD [address] [place], [place] [address] PCP - General Internal Medicine 06/01/22 Histotechnologist Relationship Specialty Start Date End Date Melissa Muhammad MD [address] [place], [place] [address] PCP - General Internal Medicine 06/01/22 Josephine Hawthorne APRN.CNS [address] [place], [place] [id number] Radiation Protection Specialist Internal Medicine 01/22/24 Cat Domingo APRN.RESIDENTIAL ROOFER HELPER [address] [place] [address] [facility] Internal Medicine 01/22/24 Histotechnologist Relationship Specialty Start Date End Date Melissa Muhammad MD [address] [place] [address] PCP - General Internal Medicine 06/01/22 Josephine Hawthorne, SEAL DELIVERY VEHICLE TEAM TECHNICIAN.PERSONNEL DIRECTOR [address] [place] [address] [facility] Internal Medicine 01/22/24 Cat Domingo SEAL DELIVERY VEHICLE TEAM TECHNICIAN.RESIDENTIAL ROOFER HELPER [address] [place] [address] [facility] Internal Medicine 01/22/24 Histotechnologist Relationship Specialty Start Date End Date Melissa Muhammad MD [address] [place] [address] PCP - General Internal Medicine 06/01/22 Josephine Hawthorne, SEAL DELIVERY VEHICLE TEAM TECHNICIAN.PERSONNEL DIRECTOR [address] [place] [address] [facility] Internal Medicine 01/22/24 Cat Domingo SEAL DELIVERY VEHICLE TEAM TECHNICIAN.RESIDENTIAL ROOFER HELPER [address] [place] [address] [facility] Internal Medicine 01/22/24 Histotechnologist Relationship Specialty Start Date End Date Melissa Muhammad MD [address] [place] [address] PCP - General Internal Medicine 06/01/22 Josephine Hawthorne, SEAL DELIVERY VEHICLE TEAM TECHNICIAN.PERSONNEL DIRECTOR [address] [place] [address] Radiation Protection Specialist Internal Medicine 01/22/24 Cat Domingo SEAL DELIVERY VEHICLE TEAM TECHNICIAN.RESIDENTIAL ROOFER HELPER [address] [place] [address] Radiation Protection Specialist Internal Medicine 01/22/24 Histotechnologist Relationship Specialty Start Date End Date Melissa Muhammad MD [address] [place] [address] PCP - General Internal Medicine 06/01/22 Josephine Hawthorne, SEAL DELIVERY VEHICLE TEAM TECHNICIAN.PERSONNEL DIRECTOR [address] [place] [address] Radiation Protection Specialist Internal Medicine 01/22/24 Cat Domingo SEAL DELIVERY VEHICLE TEAM TECHNICIAN.RESIDENTIAL ROOFER HELPER [address] [place] [address] Radiation Protection Specialist Internal Medicine 01/22/24 Histotechnologist Relationship Specialty Start Date End Date Melissa Muhammad MD [address] [place] [address] PCP - General Internal Medicine 06/01/22 Josephine Hawthorne, SEAL DELIVERY VEHICLE TEAM TECHNICIAN.PERSONNEL DIRECTOR [address] [place] [address] Radiation Protection Specialist Internal Medicine 01/22/24 Cat Domingo SEAL DELIVERY VEHICLE TEAM TECHNICIAN.RESIDENTIAL ROOFER HELPER [address] [place] [address] Radiation Protection Specialist Internal Medicine 05/07/24 Histotechnologist Relationship Specialty Start Date End Date Melissa Muhammad MD [address] [place] [address] PCP - General Internal Medicine 06/01/22 Josephine Hawthorne, ROSALEE.PERSONNEL DIRECTOR [address] [place] [address] Radiation Protection Specialist Internal Medicine 01/22/24 Cat Domingo APRN.RESIDENTIAL ROOFER HELPER [address] [place] [address] Radiation Protection Specialist Internal Medicine 05/07/24 Histotechnologist Relationship Specialty Start Date End Date Melissa Muhammad MD [address] [place] [address] PCP - General Internal Medicine 06/01/22 Josephine Hawthorne, SEAL DELIVERY VEHICLE TEAM TECHNICIAN.PERSONNEL DIRECTOR [address] [place] [address] Radiation Protection Specialist Internal Medicine 01/22/24 Cat Domingo APRN.RESIDENTIAL ROOFER HELPER [address] [place] [address] Radiation Protection Specialist Internal Medicine 05/07/24 Histotechnologist Relationship Specialty Start Date End Date Melissa Muhammad MD [address] [place] [address] PCP - General Internal Medicine 06/01/22 Josephine Hawthorne APRN.PERSONNEL DIRECTOR [address] [place] [address] Radiation Protection Specialist Internal Medicine 01/22/24 Cat Domingo APRN.RESIDENTIAL ROOFER HELPER [address] [place] [address] Radiation Protection Specialist Internal Medicine 05/07/24 Histotechnologist Relationship Specialty Start Date End Date Melissa Muhammad MD [address] [place] [address] PCP - General Internal Medicine 06/01/22 Josephine Hawthorne, SEAL DELIVERY VEHICLE TEAM TECHNICIAN.PERSONNEL DIRECTOR [address] [place] [address] Radiation Protection Specialist Internal Medicine 01/22/24 Cat Domingo SEAL DELIVERY VEHICLE TEAM TECHNICIAN.RESIDENTIAL ROOFER HELPER [address] [place] [address] [facility] Internal Medicine 05/07/24 Histotechnologist Relationship Specialty Start Date End Date Melissa Muhammad MD [address] [place] [address] PCP - General Internal Medicine 06/01/22 Josephine Hawthorne, SEAL DELIVERY VEHICLE TEAM TECHNICIAN.PERSONNEL DIRECTOR [address] [place] [address] [facility] Internal Medicine 01/22/24 Cat Domingo SEAL DELIVERY VEHICLE TEAM TECHNICIAN.RESIDENTIAL ROOFER HELPER [address] [place] [address] [facility] Internal Medicine 05/07/24 Histotechnologist Relationship Specialty Start Date End Date Melissa Muhammad MD [address] [place] [address] PCP - General Internal Medicine 06/01/22 Josephine Hawthorne, SEAL DELIVERY VEHICLE TEAM TECHNICIAN.PERSONNEL DIRECTOR [address] [place] [address] Radiation Protection Specialist Internal Medicine 01/22/24 Cat Domingo SEAL DELIVERY VEHICLE TEAM TECHNICIAN.RESIDENTIAL ROOFER HELPER [address] [place] [address] Radiation Protection Specialist Internal Medicine 05/07/24 Histotechnologist Relationship Specialty Start Date End Date Melissa Muhammad MD [address] [place] [address] PCP - General Internal Medicine 06/01/22 Josephine Hawthorne, SEAL DELIVERY VEHICLE TEAM TECHNICIAN.PERSONNEL DIRECTOR [address] [place] [address] Radiation Protection Specialist Internal Medicine 01/22/24 Cat Domingo SEAL DELIVERY VEHICLE TEAM TECHNICIAN.RESIDENTIAL ROOFER HELPER [address] [place] [address] [facility] Internal Medicine 05/07/24 Histotechnologist Relationship Specialty Start Date End Date Melissa Muhammad MD [address] [place] [address] PCP - General Internal Medicine 06/01/22 Josephine Hawthorne, SEAL DELIVERY VEHICLE TEAM TECHNICIAN.PERSONNEL DIRECTOR [address] [place] [address] Radiation Protection Specialist Internal Medicine 01/22/24 07/02/24 Cat Domingo SEAL DELIVERY VEHICLE TEAM TECHNICIAN.RESIDENTIAL ROOFER HELPER [address] [place] [address] [facility] Internal Medicine 05/07/24 Josephine Hawthorne, SEAL DELIVERY VEHICLE TEAM TECHNICIAN.PERSONNEL DIRECTOR [address] [place] [address] [facility] Internal Medicine 07/03/24 Histotechnologist Relationship Specialty Start Date End Date Melissa Muhammad MD [address] [place] [address] PCP - General Internal Medicine 06/01/22 Cat Domingo SEAL DELIVERY VEHICLE TEAM TECHNICIAN.RESIDENTIAL ROOFER HELPER [address] [place] [address] Radiation Protection Specialist Internal Medicine 05/07/24 Josephine Hawthorne, SEAL DELIVERY VEHICLE TEAM TECHNICIAN.PERSONNEL DIRECTOR [address] [place] [address] Radiation Protection Specialist Internal Medicine 07/03/24 Histotechnologist Relationship Specialty Start Date End Date Melissa Muhammad MD [address] [place] [address] PCP - General Internal Medicine 06/01/22 Cat Domingo SEAL DELIVERY VEHICLE TEAM TECHNICIAN.RESIDENTIAL ROOFER HELPER [address] [place] [address] Radiation Protection Specialist Internal Medicine 05/07/24 Josephine Hawthorne, SEAL DELIVERY VEHICLE TEAM TECHNICIAN.PERSONNEL DIRECTOR [address] [place] [address] Radiation Protection Specialist Internal Medicine 07/03/24 Histotechnologist Relationship Specialty Start Date End Date Melissa Muhammad MD [address] [place] [address] PCP - General Internal Medicine 06/01/22 Cat Domingo SEAL DELIVERY VEHICLE TEAM TECHNICIAN.RESIDENTIAL ROOFER HELPER [address] [place] [address] Radiation Protection Specialist Internal Medicine 05/07/24 Josephine Hawthorne, SEAL DELIVERY VEHICLE TEAM TECHNICIAN.PERSONNEL DIRECTOR [address] [place] [address] Radiation Protection Specialist Internal Medicine 07/03/24 Histotechnologist Relationship Specialty Start Date End Date Melissa Muhammad MD [address] [place] [address] PCP - General Internal Medicine 06/01/22 Cat Domingo APRN.RESIDENTIAL ROOFER HELPER [address] [facility] [place] [address] Radiation Protection Specialist Internal Medicine 05/07/24 Josephine Hawthorne, SEAL DELIVERY VEHICLE TEAM TECHNICIAN.PERSONNEL DIRECTOR [address] [place] [address] Radiation Protection Specialist Internal Medicine 07/03/24 Histotechnologist Relationship Specialty Start Date End Date Melissa Muhammad MD [address] [place] [address] PCP - General Internal Medicine 06/01/22 Cat Domingo APRN.RESIDENTIAL ROOFER HELPER [address] [place] [address] Radiation Protection Specialist Internal Medicine 05/07/24 Josephine Hawthorne, SEAL DELIVERY VEHICLE TEAM TECHNICIAN.PERSONNEL DIRECTOR [address] [place] [address] Radiation Protection Specialist Internal Medicine 07/03/24 Histotechnologist Relationship Specialty Start Date End Date Melissa Muhammad MD [address] [place] [address] PCP - General Internal Medicine 06/01/22 Cat Domingo APRN.RESIDENTIAL ROOFER HELPER [address] [place] [address] Radiation Protection Specialist Internal Medicine 05/07/24 Josephine Hawthorne, SEAL DELIVERY VEHICLE TEAM TECHNICIAN.PERSONNEL DIRECTOR [address] [place] [address] [facility] Internal Medicine 07/03/24 Histotechnologist Relationship Specialty Start Date End Date Melissa Muhammad MD [address] [place] [address] PCP - General Internal Medicine 06/01/22 Cat Domingo SEAL DELIVERY VEHICLE TEAM TECHNICIAN.RESIDENTIAL ROOFER HELPER [address] [place] [address] [facility] Internal Medicine 05/07/24 Josephine Hawthorne, SEAL DELIVERY VEHICLE TEAM TECHNICIAN.PERSONNEL DIRECTOR [address] [place] [address] [facility] Internal Medicine 07/03/24 Histotechnologist Relationship Specialty Start Date End Date Melissa Muhammad MD [address] [place] [address] PCP - General Internal Medicine 06/01/22 Cat Domingo, SEAL DELIVERY VEHICLE TEAM TECHNICIAN.RESIDENTIAL ROOFER HELPER [address] [place] [address] Radiation Protection Specialist Internal Medicine 05/07/24 Josephine Hawthorne, SEAL DELIVERY VEHICLE TEAM TECHNICIAN.PERSONNEL DIRECTOR [address] [place] [address] [facility] Internal Medicine 07/03/24 Histotechnologist Relationship Specialty Start Date End Date Melissa Muhammad MD [address] [place] [address] PCP - General Internal Medicine 06/01/22 Cat Domingo SEAL DELIVERY VEHICLE TEAM TECHNICIAN.RESIDENTIAL ROOFER HELPER [address] [place], [place] [address] [facility] Internal Medicine 05/07/24 Josephine Hawthorne APRN.PERSONNEL DIRECTOR [address] [place], [place] [address] [facility] Internal Medicine 07/03/24 Goals (unrecognized section and content) Goals may be documented in a n alternate sectionGoals may be documented in an alternate section FOR RECORDS PERTAINING TO PATIENTS WHO ARE OR HAVE BEEN ENROLLED IN A CHEMICAL DEPENDENCY/SUBSTANCEABUSE PROGRAM, SOME INFORMATION MAY BE OMITTED. This clinical summary was aggregated from multiple sources. Caution should be exercised in using it in the provision of clinical care. This summary normalizes information from multiple sources, and as a consequence, information in this document may materially change the coding, format and clinical context of patient data. In addition, data may be omitted in some cases. CLINICAL DECISIONS SHOULD BE BASED ON THE PRIMARY CLINICAL RECORDS. [employer] [facility]. provides no warranty or guarantee of the accuracy or completeness of information in this document.
[2025-01-04 05:23] LABS: Prothrombin Time (Protime)PT. 13.7 SECONDS (11.7-14.9)
[2025-01-04 05:24] LABS: Partial Thromboplast Time 30.4 Seconds (24.1-36.2)
[2025-01-04 05:30] VITALS: BP 134/102; PULSE 80; RESP 16; TEMP 36.7; O2SAT 97
[2025-01-04 05:30] LABS: Anion Gap 6 (5-15); BUN 24 mg/dL (4-19); BUN/Creat Ratio 33.8 RATIO (10-20); Calcium,Total 9.5 mg/dL (7.6-11.0); Carbon Dioxide 42.8 mmol/L (21.0-32.0); Chloride 92 mmol/L (98-108); Estimated Creatinine Clearance 91.62 ml/min (50-250); Glucose 123 mg/dL (70-99); Potassium 3.8 mmol/L (3.3-5.1)
--- NOTE | 2025-01-04 05:34 | EX.ED.DYSGE1 ---
HPI History of Present Illness Chief Complaint: Neuro S/Sx Informant: patient and EMS Narrative Narrative: Patient is a 69-year-old female with past ministry of hypertension hyperlipidemia congestive heart failure need for chronic oxygen by nasal cannula at 3 L at baseline. She was recently admitted to this hospital secondary to CHF exacerbation and discharged home on January 02. EMS reports that the patient activated her life alert this morning and when they arrived they found her with confusion and slurred speech and weakness. Secondary to this they checked a blood sugar which was normal at 155 and then activated a stroke alert. Further history from the patient is difficult to obtain as she does have dysarthria and aphasia but she states that she went to bed at 11 PM and as that is her last known well she is outside any type of TNK window. [facility] Medical History Cervical myelopathy Thoracic myelopathy Lumbar radiculopathy, acute Morbid obesity IRIS treated with BiPAP Anxiety and depression History of alcohol abuse Thyroid nodule Former smoker COPD (chronic obstructive pulmonary disease) Atrial fibrillation Neuropathic pain Vitamin D deficiency Hyperlipidemia Herpes zoster Hypertension Osteoarthritis of knees, bilateral Pseudogout of right knee Thoracic spinal stenosis Home Medications ?Medication ?Instructions ?Recorded ?Last Taken ?Type atorvastatin 10 mg tablet 10 mg PO DAILY@2200 Cholesterol 12/08/20 12/29/24 History hydroxyzine pamoate 25 mg capsule 25 mg PO QHS anxiety 30 days #30 01/11/21 12/29/24 Rx caps pantoprazole 40 mg tablet,delayed 40 mg PO BID reflux #0 tabs 07/17/23 12/30/24 Rx release duloxetine 60 mg capsule,delayed 60 mg PO DAILY mental health 08/25/23 12/30/24 History release (Cymbalta) BIPAP -Bilevel Positive Airway IRIS, hypoventilation 12/30/24 Unknown History Pressure ([facility] INFORMATIONAL USE ONLY) acetaminophen 500 mg tablet 1,000 mg PO Q8 PRN severe pain 12/30/24 12/30/24 History duloxetine 30 mg capsule,delayed 30 mg PO QHS mood 12/30/24 12/29/24 History release gabapentin 800 mg tablet 800 mg PO TID nerve pain 12/30/24 12/30/24 History guaifenesin 600 mg tablet, 600 mg PO BID PRN congestion 12/30/24 12/29/24 History extended release 12 hr (Mucinex) losartan 50 mg tablet 50 mg PO BID blood pressure 12/30/24 12/30/24 History solifenacin 5 mg tablet 5 mg PO DAILY urine 12/30/24 12/30/24 History tizanidine 4 mg tablet 4 mg PO TID muscle relaxer 12/30/24 Unknown History amlodipine 5 mg tablet 5 mg PO DAILY #30 tabs 01/02/25 Unknown Rx carvedilol 12.5 mg tablet 12.5 mg PO BIDCM #60 tabs 01/02/25 Unknown Rx furosemide 40 mg tablet (Lasix) 40 mg PO BID #60 tabs 01/02/25 Unknown Rx Allergy/AdvReac Type Severity Reaction Status Date / Time hydrocodone (From Vicodin) Allergy Anaphylaxis Verified 01/04/25 05:36 lorazepam (From Ativan) Allergy Hives Verified 01/04/25 05:36 neomycin Allergy Hives Verified 01/04/25 05:36 Family History Mother No problems noted. Father Leukemia Diabetes Surgical History History of lumbar laminectomy History of back surgery History of back surgery History of adenoidectomy Hx of tonsillectomy Social History household members: none Smoking Status: Former smoker how long ago did patient quit smoking: Quit 45 yrs prior, smoked 1 ppd starting age 19 until quit. alcohol intake: former details: Drank heavily prior, sober x 45 years. substance use type: does not use ROS ROS ED ROS Narrative Please note review of systems may be unreliable as patient has dysarthria and aphasia Constitutional Constitutional ED: Denies chills or fever(s) Eyes Eyes: Denies change in vision Cardiovascular Cardiovascular: Denies chest pain Respiratory/Chest Respiratory/Chest: Denies cough or dyspnea Gastrointestinal Gastrointestinal: Denies abdominal pain, diarrhea, nausea or vomiting Musculoskeletal Musculoskeletal: Denies myalgias Integumentary Denies rash Neurologic Neurologic: Reports weakness; Denies headache(s) Hematologic/Lymphatic Hematologic/Lymphatic: Denies easy bleeding or easy bruising EXAM Physical Exam Const Vital Signs: 01/04/25 04:46 01/04/25 04:46 01/04/25 05:07 Temperature 98.1 F 98 F Temperature Source Oral Oral Pulse Rate 78 78 Respiratory Rate 16 16 Blood Pressure 130/102 H 115/60 Blood Pressure Mean 111 78 Pulse Ox 96 100 100 Oxygen Delivery Method Nasal Cannula Nasal Cannula Nasal Cannula Oxygen Flow Rate (L/min) 6 4 6 01/04/25 05:16 01/04/25 05:30 Temperature 98.1 F 98.1 F Temperature Source Oral Oral Pulse Rate 78 80 Respiratory Rate 16 16 Blood Pressure 120/60 134/102 H Blood Pressure Mean 80 112 Pulse Ox 100 97 Oxygen Delivery Method Nasal Cannula Nasal Cannula Oxygen Flow Rate (L/min) 4 4 Positive well nourished, well developed and obese General Appearance ED: well developed; Negative for pallor Nutritional Appearance: obese HEENT HEENT Narrative: Normocephalic atraumatic No tongue or lip swelling no oral lesions no airway edema or compromise No tongue or cheek biting to suggest seizure activity Eyes PERRL and EOMs intact bilaterally General Eye ED: Negative for scleral icterus Neck supple Neck Narrative: No nuchal rigidity or meningeal signs Resp normal respiratory effort and clear to auscultation bilaterally Resp Narrative: Breath sounds are diminished throughout with faint crackles in bilateral bases but no signs of respiratory distress Cardio regular rate and regular rhythm Rate: other Other Details: Radial and carotid pulses are equal and symmetric GI normal to inspection, nondistended, normoactive bowel sounds, non-tender, non-distended and no masses GI Narrative: No voluntary guarding or rigidity or pulsatile mass Auscultation: normoactive bowel sounds Palpation: soft Extremity normal to inspection Extremity Narrative: No signs of long bone injury such as bony deformity or joint effusion Neuro Neuro Narrative: Patient is awake and protecting her airway but is disoriented to place Patient received an NIH stroke scale score of 8. She receives 1 point for not knowing the year/location She receives 2 points for facial paralysis She receives 1 point for right arm weakness She received 2 points for right leg weakness She receives 1 point for aphasia She receives 1 point for dysarthria Psych mental status grossly normal Skin no rashes or lesions noted General Skin Exam: Negative for jaundice or pallor MDM MDM MDM Narrative Medical decision making narrative: Patient arrived to the ER with stable vitals. She is requiring nasal cannula oxygen to keep her sats greater than 90% but chart review reveals that she was recently discharged home with order for 3 L and is therefore only requiring a slightly higher amount of oxygen at this time. With report of weakness and confusion and facial droop stroke alert was activated prehospital. A noncontrast CT and CTA of the head and neck were obtained. Noncontrast CT revealed no bleed or mass. CTA revealed a M2 lesion. The patient was evaluated by [facility] neurology. They agree that as her last known well is 11 PM she is outside the window for TNK and therefore do not recommend providing the medication. However because there is a M2 lesion they feel she may be a candidate for interventional radiology and recommend transfer to their facility. Therefore the patient will be sent from ER to ER for repeat evaluation and further treatment options regarding her acute stroke. Based on the acuity of the situation it is recommended that she go by [facility] in order to obtain a more emergent evaluation. However at this time secondary to whether [facility] is not flying and therefore patient will have to go by mobile ICU. The patient's symptoms have remained stable during her ER hold while awaiting transfer History & Record Review Discussion w/independent historian: EMS personnel and Patient Additional record(s) reviewed:: Prior inpatient record and Prior labs Lab Data Attestation: I reviewed the patient's lab results. Labs: Laboratory Results - last 24 hr 01/04/25 04:50 WBC 9.1 RBC 4.99 Hgb 11.8 L Hct 39.9 MCV 80.0 L MCH 23.6 L MCHC 29.6 L RDW Std Deviation 45.4 H RDW Coeff of Laila 15.8 H Plt Count 236 MPV 9.6 Immature Gran % (Auto) 0.700 Neut % (Auto) 72.9 H Lymph % (Auto) 12.7 L [place] % (Auto) 8.8 Eos % (Auto) 4.4 Baso % (Auto) 0.5 Absolute Neuts (auto) 6.6 Absolute Lymphs (auto) 1.16 Nucleated RBC % 0 PT 13.7 INR 1.0 APTT 30.4 Sodium 142 Potassium 3.8 Chloride 92 L Carbon Dioxide 42.8 H Anion Gap 6 BUN 24 H Creatinine 0.70 Estim Creat Clear Calc 91.62 Est GFR (MDRD) Non-Af 92 BUN/Creatinine Ratio 33.8 H Glucose 123 H Calcium 9.5 Radiography Diagnostic Testing: Clinical Impression(s) from Imaging Studies Brain CT 01/04/25 04:46 IMPRESSION: No CT evidence for acute brain abnormality. I discussed the findings with Dr. Reddy Monsivais in the emergency department at 5 a.m. EST. Reading Location: [place] [address] Head/Neck CTA 01/04/25 04:47 IMPRESSION: Normal bilateral cervical carotid and vertebral arteries. Thyromegaly. Multiple thyroid nodules. Cystic nodule of the right thyroid lobe measuring 4.8 x 4.5 x 8.7 cm in its largest transverse, anteroposterior and craniocaudal dimensions respectively showing retrosternal extension. Mild left lateral deviation of the trachea. Enlarged main pulmonary artery, probably pulmonary arterial hypertension. IMPRESSION: Occlusive thrombus in the most distal aspect of M2 segment of the left middle cerebral artery. I discussed the findings with Dr. Reddy Monsivais in the emergency department at 6 a.m. EST. Reading Location: [place] [address] Chest x-ray as interpreted by the emergency medicine physician reveals poor inspiration with cardiomegaly and pulmonary vascular congestion but no acute infiltrate or pneumothorax Management Discussion w/another healthcare provider: Clinical Trials Assistant and Radiologist Critical Care Time Critical Care Time: Yes Critical care time (excluding procedures): Discussing w/Patient &/or Family/Platform Power Technician, Discussing w/Consultants, Arranging Admission or Transfer and - (Critical care time of 33 minutes) Discharge Plan Triage Chief Complaint: Neuro S/Sx ED Provider: Reddy Monsivais Dx/Rx/DC Orders Clinical Impression: Acute cerebrovascular accident (CVA), Hypertension, Hyperlipidemia, Morbid obesity, Depression, Chronic back pain, CHF (congestive heart failure) Prescriptions: No Action duloxetine [Cymbalta] 60 mg capsule,delayed release(DR/EC) 60 mg PO DAILY Patient Comments: 60MG AM AND 30MG HS Rx Instructions: am atorvastatin 10 MG tablet 10 mg PO DAILY@2200 hydroxyzine pamoate 25 mg Capsule 25 mg PO QHS 30 Days Qty: 30 0RF duloxetine 30 mg capsule,delayed release(DR/EC) 30 mg PO QHS Patient Comments: 60MG AM AND 30MG HS tizanidine 4 mg tablet 4 mg PO TID gabapentin 800 mg tablet 800 mg PO TID solifenacin 5 mg tablet 5 mg PO DAILY guaifenesin [Mucinex] 600 mg tablet extended release 12hr 600 mg PO BID PRN (Reason: congestion) losartan 50 mg Tablet 50 mg PO BID acetaminophen 500 mg Tablet 1,000 mg PO Q8 PRN (Reason: severe pain) Rx Instructions: 3 times daily for 1 week and then 3 times daily as needed for severe pain BIPAP -Bilevel Positive Airway Pressure ([facility] INFORMATIONAL USE ONLY) Patient Comments: pt reports 01/20 DME unknown carvedilol 12.5 mg Tablet 12.5 mg PO BIDCM Qty: 60 0RF amlodipine 5 mg Tablet 5 mg PO DAILY Qty: 30 0RF furosemide [Lasix] 40 mg tablet 40 mg PO BID Qty: 60 0RF pantoprazole 40 mg Tablet,Delayed Release (Dr/Ec) 40 mg PO BID Qty: 0 0RF Primary Care Provider: lAissa Doty Referrals: Alissa Doty MD [Primary Care Provider, Internal Medicine] Print Language: Burundian Disposition Disposition: Acute Care Hospital Discharge Location: [facility]
[2025-01-04 05:40] VITALS: BMI 48.4
--- NOTE | 2025-01-04 05:46 | RAD_ITS ---
PROCEDURE: CHEST 1 VIEW 01/04/2025 REASON FOR EXAM: NEURO DEFICIT, ACUTE, STROKE SUSPECTED TECHNIQUE: Frontal view of the chest. COMPARISON: 01-02-2025 upright AP portable chest radiograph. FINDINGS: Hardware: Hardware there are dorsal orthopedic rods bilaterally at the lower thoracic region. There is partial projection of a ventral plate and screw fixation of mid cervical vertebral bodies. There are EKG leads projected. Heart: The heart is moderately enlarged. Lungs: There is prominence of the main pulmonary artery and of the central right and left pulmonary arteries that may be due to pulmonary artery hypertension. There is under penetration of the retrocardiac region. There is an interstitial infiltrate and/or atelectasis at the left lung region posterior to the heart. The right lung is clear. Bones: There is flattening of the right humeral head that may be due to avascular necrosis. Other: There is deviation of the lower cervical trachea to the left and soft tissue prominence at the superior mediastinum. These findings suggest the presence of a goiter. There is slight to moderate calcification of the aortic arch. RAD/Chest 1 View IMPRESSION: Prominent central pulmonary arteries. Probable goiter. Moderate cardiomegaly. Probable interstitial infiltrate and/or atelectasis at the left lower lung zone . Reading Location: [id number]
--- NOTE | 2025-01-04 06:11 | ED.RN ---
[facility] called the clerk secretary and told us that we did not need to call report to [facility] nurse.
[2025-01-04 06:59] VITALS: BP 95/56; PULSE 74; RESP 16; TEMP 37.1; O2SAT 94
[2025-01-04 07:16] VITALS: PULSE 68
== END 2025-01-04 07:17 | disposition short-term general hospital (02) ==
PROVIDERS: Emergency Provider Emergency Medicine; PCP Internal Medicine; Visit Provider Emergency Medicine
DX: I63.312 Cerebral infarction due to thrombosis of left middle cerebral artery (principal); G81.91 Hemiplegia, unspecified affecting right dominant side; I11.0 Hypertensive heart disease with heart failure; I50.9 Heart failure, unspecified; J44.9 Chronic obstructive pulmonary disease, unspecified; E66.01 Morbid (severe) obesity due to excess calories; R41.0 Disorientation, unspecified; M54.9 Dorsalgia, unspecified; F32.A Depression, unspecified; Z87.891 Personal history of nicotine dependence; R47.1 Dysarthria and anarthria; G89.29 Other chronic pain; R47.01 Aphasia; E78.5 Hyperlipidemia, unspecified; R29.708 NIHSS score 8; R29.810 Facial weakness; Z79.899 Other long term (current) drug therapy; E04.2 Nontoxic multinodular goiter
CPT/HCPCS: 70450; 70496; 70498; 71045; 80048; 85025; 85610; 85730; 93005; 99285; Q9967